=== PATIENT | male | born 1965 | race Caucasian/White ===

== ENCOUNTER 2017-09-02 18:29 | Inpatient (IN) | payer OTHER ==
[~2017-09-02] VITALS: Ht 160 cm; Wt 73.5 kg
[~2017-09-02 18:29] MED LIST: ALPR1TAB2 PO; ASP81TEC PO; CYCL10TA9 PO; HYDR-2890 PO; HYDR-3820 PO; HYDR1TAB3 PO; IBUP-1780 PO; INSU100I5 SQ; INSU100V5 SQ; METFOR850T PO; OXYC-23 PO; OXYC1TAB16 PO; PREG150C PO; SITA100T PO; SITA1TAB2 PO
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
--- OUTSIDE RECORDS SUMMARY | 2017-09-02 18:37 | XMS REPORT ---
Author Author SARAH GOLDMAN [facility] Address [address] [place] [address] Care Team Providers Care Supervisor Sunglasses Name Role Phone SARAH GOLDMAN Unavailable PROBLEMS Type Condition ICD9-CM Code IUC04-DF Code Onset Dates Condition Status SNOMED Code Problem 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 G89.29 Active 17694215 Problem Anxiety F41.9 Active 61946813 Problem Type 2 diabetes mellitus with unspecified complications E11.8 Active 02565896 ALLERGIES Unknown Allergies SOCIAL HISTORY No smoking Hx information available PLAN OF CARE VITAL SIGNS MEDICATIONS Medication Instructions Dosage Frequency Start Date End Date Duration Status Alprazolam 1 MG Orally 4 times a day 1 tablet 6h 28 days Active Hydrocodone-Acetaminophen 10-325 MG Orally 2 times a day 1 tablet 12h 11 May, 2016 Active RESULTS No Results PROCEDURES No Known procedures IMMUNIZATIONS No Known Immunizations
--- OUTSIDE RECORDS SUMMARY | 2017-09-02 18:37 | XMS REPORT ---
Author Author SARAH GOLDMAN Organization [facility] Address [address] [place] [address] Care Team Providers Care Site Director Name Role Phone SARAH GOLDMAN Unavailable PROBLEMS Type Condition ICD9-CM Code [id number] Code Onset Dates Condition Status SNOMED Code Problem Type 2 diabetes mellitus with unspecified complications E11.8 Active 90829642 Problem 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 G89.29 Active 27775175 Problem Anxiety F41.9 Active 66062781 Problem Primary insomnia F51.01 Active 0660999 Problem Neuropathy G62.9 Active 198635106 Problem Dental examination Z01.20 Active 536629994 Problem Benign prostatic hyperplasia with lower urinary tract symptoms, unspecified morphology N40.1 Active 177547762 Problem Hypoglycemia E16.2 Active 093265645 Problem Periodontitis K05.30 Active 82738980 ALLERGIES No Information SOCIAL HISTORY Never Assessed PLAN OF CARE VITAL SIGNS MEDICATIONS Unknown Medications RESULTS No Results PROCEDURES No Known procedures IMMUNIZATIONS No Known Immunizations MEDICAL (GENERAL) HISTORY Type Description Date Medical History Type 2 diabetes mellitus without complications 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
--- OUTSIDE RECORDS SUMMARY | 2017-09-02 18:37 | XMS REPORT ---
Author Author SARAH GOLDMAN Organization [facility] Address [address] [place] [address] Care Team Providers Care Fundraising Sale Representative Name Role Phone SARAH GOLDMAN Unavailable PROBLEMS Type Condition ICD9-CM Code TAC62-LW Code Onset Dates Condition Status SNOMED Code Problem Type 2 diabetes mellitus with unspecified complications E11.8 Active 61383468 Problem 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 G89.29 Active 32564103 Problem Anxiety F41.9 Active 03053810 Problem Primary insomnia F51.01 Active 6691488 Problem Neuropathy G62.9 Active 320448291 Problem Dental examination Z01.20 Active 686408136 Problem Benign prostatic hyperplasia with lower urinary tract symptoms, unspecified morphology N40.1 Active 880590689 Problem Hypoglycemia E16.2 Active 174818992 Problem Periodontitis K05.30 Active 31905993 ALLERGIES No Information SOCIAL HISTORY Never Assessed PLAN OF CARE VITAL SIGNS MEDICATIONS Medication Instructions Dosage Frequency Start Date End Date Duration Status Lantus SoloStar 100 UNIT/ML Subcutaneous 2 times a day Inject 25 units in AM and 30 units in PM 12h Aug, 90 days Active RESULTS No Results PROCEDURES No Known procedures IMMUNIZATIONS No Known Immunizations MEDICAL (GENERAL) HISTORY Type Description Date Medical History Type 2 diabetes mellitus without complications 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
--- OUTSIDE RECORDS SUMMARY | 2017-09-02 18:37 | XMS REPORT ---
Author Author SARAH GOLDMAN [facility] Address [address] [place] [address] Care Team Providers Care Button Broacher Name Role Phone SARAH GOLDMAN Unavailable PROBLEMS Type Condition ICD9-CM Code GGB64-[id number] Code Onset Dates Condition Status SNOMED Code Problem Type 2 diabetes mellitus with unspecified complications E11.8 Active 09102689 Problem 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 G89.29 Active 31466267 Problem Anxiety F41.9 Active 28736539 Problem Primary insomnia F51.01 Active 1341807 Problem Neuropathy G62.9 Active 791946995 Problem Dental examination Z01.20 Active 826435342 Problem Benign prostatic hyperplasia with lower urinary tract symptoms, unspecified morphology N40.1 Active 717489568 Problem Hypoglycemia E16.2 Active 189185933 Problem Periodontitis K05.30 Active 62633742 ALLERGIES Unknown Allergies SOCIAL HISTORY No smoking Hx information available PLAN OF CARE VITAL SIGNS MEDICATIONS Unknown Medications RESULTS No Results PROCEDURES No Known procedures IMMUNIZATIONS No Known Immunizations
--- OUTSIDE RECORDS SUMMARY | 2017-09-02 18:39 | XMS REPORT ---
Author Author GALE Montero Organization [facility] Address Unknown Care Team Providers Care Waiter/Waitress Informal Name Role Phone taylortaylorBHAVESH GALE Unavailable PROBLEMS Type Condition ICD9-CM Code TMA03-AU Code Onset Dates Condition Status SNOMED Code Problem Type 2 diabetes mellitus with unspecified complications E11.8 Active 66825966 Problem 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 G89.29 Active 60319388 Problem Anxiety F41.9 Active 99405089 Problem Primary insomnia F51.01 Active 9516542 Problem Neuropathy G62.9 Active 181247022 Problem Dental examination Z01.20 Active 885507802 Problem Benign prostatic hyperplasia with lower urinary tract symptoms, unspecified morphology N40.1 Active 549337350 Problem Hypoglycemia E16.2 Active 556990668 Problem Periodontitis K05.30 Active 59279233 ALLERGIES Substance Reaction Event Type Date Status Levemir agitation Drug Allergy Jun, Active SOCIAL HISTORY No smoking Hx information available PLAN OF CARE Activity Details Follow Up LISA Reason:TE #5 VITAL SIGNS Height 53 in 2016-07-19 Blood pressure systolic 116 mmHg 2016-07-19 Blood pressure diastolic 72 mmHg 2016-07-19 MEDICATIONS Medication Instructions Dosage Frequency Start Date End Date Duration Status MetFORMIN HCl ER 500 MG Orally twice a day 2 tablet 12h Jun, 30 day(s) Active Ibuprofen 800 MG Orally Three times a day 1 tablet 8h Active Lyrica 150 MG Orally Twice a day 1 capsule 12h May, 90 days Active Alprazolam 1 MG Orally 4 times a day 1 tablet 6h 28 days Active Hydrocodone-Acetaminophen 10-325 MG Orally 3 times a day 1 tablet 8h 08 Jun 28 days Active Lantus 100 UNIT/ML Subcutaneous 2 times a day inject 25 units 12h Active Cialis 5 mg Orally Once a day 1 tablet 24h May, 90 days Active RESULTS No Results PROCEDURES Procedure Date Ordered Related Diagnosis Body Site Dental no charge Jul 19, 2016 IMMUNIZATIONS No Known Immunizations
--- OUTSIDE RECORDS SUMMARY | 2017-09-02 18:40 | XMS REPORT ---
Author Author SARAH GOLDMAN Organization [employer] Address Unknown Phone Unavailable Care Team Providers Care Commercial Credit Specialist Name Role Phone SARAH GOLDMAN CP Unavailable Allergies No Known Allergies Problems Problem Type Condition Code Onset Dates Condition Status Problem Anxiety F41.9 Active Problem Type 2 diabetes mellitus with unspecified complications E11.8 Active Problem 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 G89.29 Active Medications No Known Medications Results No Known Results Summary Purpose [employer] Submission
--- OUTSIDE RECORDS SUMMARY | 2017-09-02 18:40 | XMS REPORT ---
Author Author SARAH GOLDMAN [facility] Address [address] [place] [address] Care Team Providers Care Etl Informatica Developer Name Role Phone SARAH GOLDMAN Unavailable PROBLEMS Type Condition ICD9-CM Code HNS86-OX Code Onset Dates Condition Status SNOMED Code Problem Type 2 diabetes mellitus with unspecified complications E11.8 Active 66863974 Problem 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 G89.29 Active 62768432 Problem Anxiety F41.9 Active 67693299 Problem Neuropathy G62.9 Active 960907477 Problem Primary insomnia F51.01 Active 4054986 Problem Periodontitis K05.30 Active 94307377 Problem Benign prostatic hyperplasia with lower urinary tract symptoms, unspecified morphology N40.1 Active 346856544 Problem Hypoglycemia E16.2 Active 173740835 Problem Dental examination Z01.20 Active 637859582 ALLERGIES Substance Reaction Event Type Date Status Levemir agitation Drug Allergy May, Active SOCIAL HISTORY No smoking Hx information available PLAN OF CARE Activity Details Follow Up 4 Weeks Reason:DM VITAL SIGNS Height 53 in 2016-06-03 Weight 160.1 lbs 2016-06-03 Temperature 98.1 degrees Fahrenheit 2016-06-03 Heart Rate 120 bpm 2016-06-03 Respiratory Rate 22 2016-06-03 BMI 40.07 kg/m2 2016-06-03 Blood pressure systolic 151 mmHg 2016-06-03 Blood pressure diastolic 75 mmHg 2016-06-03 MEDICATIONS Medication Instructions Dosage Frequency Start Date End Date Duration Status Ibuprofen 800 MG Orally Three times a day 1 tablet 8h Active Cialis 5 mg Orally Once a day 1 tablet 24h May, 90 days Active Metformin HCl 500 MG Orally three times a day 1 tablet with meals 8h Active Lantus 100 UNIT/ML Subcutaneous 2 times a day inject 20 units 12h 90 days Active Lyrica 150 MG Orally Twice a day 1 capsule 12h May, 90 days Active Tamsulosin HCl 0.4 MG Orally Once a day 1 capsule 24h Active Alprazolam 1 MG Orally 4 times a day 1 tablet 6h 28 days Active Loratadine Allergy Relief D-12 Active Hydrocodone-Acetaminophen 10-325 MG Orally 3 times a day 1 tablet 8h 11 May Active RESULTS Name Result Date Reference Range A1C (IN HOUSE) 2016-06-03 A1C IN HOUSE 10.8 4.3 - 5.6 % Previous A1c 8.3 Lot [id number] Exp date PROCEDURES Procedure Date Ordered Related Diagnosis Body Site GLYCATED HEMOGLOBIN TEST Jun 03, 2016 Office Visit, Est Pt., Level 3 Jun 03, 2016 IMMUNIZATIONS No Known Immunizations
--- OUTSIDE RECORDS SUMMARY | 2017-09-02 18:40 | XMS REPORT ---
Author Author SARAH GOLDMAN [facility] Address [address] [place] [address] Care Team Providers Care Grant Specialist Name Role Phone SARAH GOLDMAN Unavailable PROBLEMS Type Condition ICD9-CM Code VDO07-HT Code Onset Dates Condition Status SNOMED Code Problem Type 2 diabetes mellitus with unspecified complications E11.8 Active 64866784 Problem 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 G89.29 Active 48217337 Problem Anxiety F41.9 Active 22133248 Problem Primary insomnia F51.01 Active 2320114 Problem Neuropathy G62.9 Active 995967497 Problem Dental examination Z01.20 Active 905101553 Problem Benign prostatic hyperplasia with lower urinary tract symptoms, unspecified morphology N40.1 Active 014001539 Problem Hypoglycemia E16.2 Active 681149127 Problem Periodontitis K05.30 Active 75912259 ALLERGIES Unknown Allergies SOCIAL HISTORY No smoking Hx information available PLAN OF CARE VITAL SIGNS MEDICATIONS Medication Instructions Dosage Frequency Start Date End Date Duration Status Lantus 100 UNIT/ML Subcutaneous 2 times a day inject 25 units in the morning and 30units in the evening 12h Active RESULTS No Results PROCEDURES No Known procedures IMMUNIZATIONS No Known Immunizations
--- OUTSIDE RECORDS SUMMARY | 2017-09-02 18:40 | XMS REPORT ---
Author Author SARAH GOLDMAN [facility] [employer] Address Unknown Phone Unavailable Care Team Providers Care Asphalt Blender Name Role Phone SARAH GOLDMAN CP Unavailable Allergies No Known Allergies Problems Problem Type Condition Code Onset Dates Condition Status Problem Type 2 diabetes mellitus with unspecified complications E11.8 Active Medications No Known Medications Results No Known Results Summary Purpose [employer] Submission
--- OUTSIDE RECORDS SUMMARY | 2017-09-02 18:41 | XMS REPORT ---
Author Author SARAH GOLDMAN [facility] Address [address] [place] [address] Care Team Providers Care Ceramic Capacitor Processor Name Role Phone SARAH GOLDMAN Unavailable PROBLEMS Type Condition ICD9-CM Code SPE42-ZP Code Onset Dates Condition Status SNOMED Code Problem Type 2 diabetes mellitus with unspecified complications E11.8 Active 35480595 Problem 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 G89.29 Active 38086418 Problem Anxiety F41.9 Active 09031628 Problem Neuropathy G62.9 Active 351990606 Problem Primary insomnia F51.01 Active 9796078 Problem Periodontitis K05.30 Active 72409332 Problem Benign prostatic hyperplasia with lower urinary tract symptoms, unspecified morphology N40.1 Active 779893671 Problem Hypoglycemia E16.2 Active 432994758 Problem Dental examination Z01.20 Active 284007325 ALLERGIES Unknown Allergies SOCIAL HISTORY No smoking Hx information available PLAN OF CARE VITAL SIGNS MEDICATIONS Unknown Medications RESULTS Name Result Date Reference Range AMERITOX 2016-04-02 PROCEDURES Procedure Date Ordered Related Diagnosis Body Site No Charge Apr 02, 2016 IMMUNIZATIONS No Known Immunizations
--- OUTSIDE RECORDS SUMMARY | 2017-09-02 18:44 | XMS REPORT ---
Author Author SARAH GOLDMAN Organization [employer] Address Unknown Phone Unavailable Care Team Providers Care Agricultural Real Estate Agent Name Role Phone SARAH GOLDMAN CP Unavailable Allergies No Known Allergies Problems Problem Type Condition Code Onset Dates Condition Status Problem Anxiety F41.9 Active Problem Type 2 diabetes mellitus with unspecified complications E11.8 Active Problem 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 G89.29 Active Assessment 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 G89.29 Active Assessment Anxiety F41.9 Active Medications Medication Code System Code Instructions Start Date End Date Status Dosage Alprazolam [facility] [address]-96 1 MG Orally 4 times a day 1 tablet Hydrocodone-Acetaminophen [facility] [address]-18 10-325 MG Orally 2 times a day 1 tablet Results No Known Results Summary Purpose [employer] Submission
--- OUTSIDE RECORDS SUMMARY | 2017-09-02 18:44 | XMS REPORT ---
Author Author SARAH GOLDMAN [facility] Address [address] [place] [address] Care Team Providers Care Steam Blocker Name Role Phone SARAH GOLDMAN Unavailable PROBLEMS Type Condition ICD9-CM Code FRN45-JJ Code Onset Dates Condition Status SNOMED Code Problem Type 2 diabetes mellitus with unspecified complications E11.8 Active 14318819 Problem 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 G89.29 Active 70337090 Problem Anxiety F41.9 Active 36708912 Problem Primary insomnia F51.01 Active 3744504 Problem Neuropathy G62.9 Active 419501759 Problem Dental examination Z01.20 Active 811343844 Problem Benign prostatic hyperplasia with lower urinary tract symptoms, unspecified morphology N40.1 Active 671102841 Problem Hypoglycemia E16.2 Active 298897389 Problem Periodontitis K05.30 Active 99314353 ALLERGIES Substance Reaction Event Type Date Status Levemir agitation Drug Allergy Aug, Active SOCIAL HISTORY Never Assessed PLAN OF CARE Activity Details Follow Up prn Reason: VITAL SIGNS Height 53 in 2016-09-08 Weight 158.7 lbs 2016-09-08 Temperature 98.2 degrees Fahrenheit 2016-09-08 Heart Rate 84 bpm 2016-09-08 Respiratory Rate 20 2016-09-08 BMI 39.72 kg/m2 2016-09-08 Blood pressure systolic 118 mmHg 2016-09-08 Blood pressure diastolic 78 mmHg 2016-09-08 MEDICATIONS Medication Instructions Dosage Frequency Start Date End Date Duration Status Ibuprofen 800 MG Orally Three times a day 1 tablet 8h Active Cialis 5 mg Orally Once a day 1 tablet 24h May, 90 days Active MetFORMIN HCl ER 500 MG Orally twice a day 2 tablet 12h Jun, 30 day(s) Active Promethazine HCl 25 MG Orally every 6 hrs, prn nausea 1 tablet Jul, Active Lyrica 150 MG Orally Twice a day 1 capsule 12h May, 90 days Active Hydrocodone-Acetaminophen 10-325 MG Orally 3 times a day 1 tablet 8h Aug 28 days Active Lantus SoloStar 100 UNIT/ML Subcutaneous 2 times a day Inject 25 units in AM and 30 units in PM 12h Aug, 90 days Active Alprazolam 1 MG Orally 4 times a day 1 tablet 6h 28 days Active RESULTS No Results PROCEDURES No Known procedures IMMUNIZATIONS No Known Immunizations MEDICAL (GENERAL) HISTORY Type Description Date Medical History Type 2 diabetes mellitus without complications 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
--- OUTSIDE RECORDS SUMMARY | 2017-09-02 18:44 | XMS REPORT ---
Author Author SARAH GOLDMAN Organization [facility] Address [address] [place] [address] Care Team Providers Care Core Java Software Engineer Name Role Phone SARAH GOLDMAN Unavailable PROBLEMS Type Condition ICD9-CM Code MQL56-YH Code Onset Dates Condition Status SNOMED Code Problem Anxiety F41.9 Active 22683101 Problem Type 2 diabetes mellitus with unspecified complications E11.8 Active 62962322 Assessment Type 2 diabetes mellitus with unspecified complications E11.8 Jan, Active 644286129 Assessment 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 G89.29 Jan, Active 71457165 ALLERGIES Substance Reaction Event Type Date Status Levemir agitation Drug Allergy Jan, Active SOCIAL HISTORY No smoking Hx information available PLAN OF CARE VITAL SIGNS Height 53 in 2016-02-09 Weight 154.7 lbs 2016-02-09 Heart Rate 94 bpm 2016-02-09 Respiratory Rate 20 2016-02-09 BMI 38.72 kg/m2 2016-02-09 Blood pressure systolic 152 mmHg 2016-02-09 Blood pressure diastolic 68 mmHg 2016-02-09 MEDICATIONS Medication Instructions Dosage Frequency Start Date End Date Duration Status Ibuprofen 800 MG Orally Three times a day 1 tablet 8h Active Hydrocodone-Acetaminophen 10-325 MG Orally 2 times a day 1 tablet 12h Active Alprazolam 1 MG Orally 4 times a day 1 tablet 6h 28 days Active Loratadine Allergy Relief D-12 Active Metformin HCl 500 MG Orally three times a day 1 tablet with meals 8h Active Lyrica 150 MG Orally Twice a day 1 capsule 12h Active Lantus 100 UNIT/ML Subcutaneous twice a day 35 units 12h Active RESULTS Name Result Date Reference Range A1C (IN HOUSE) 2016-02-09 A1C IN HOUSE 8.3 4.3 - 5.6 % Previous A1c 8.0 Lot [id number] Exp date PROCEDURES Procedure Date Ordered Related Diagnosis Body Site GLYCATED HEMOGLOBIN TEST Feb 09, 2016 Office Visit, Est Pt., Level 3 Feb 09, 2016 IMMUNIZATIONS No Known Immunizations
--- OUTSIDE RECORDS SUMMARY | 2017-09-02 18:44 | XMS REPORT ---
Author Author SARAH GOLDMAN Organization [employer] Address Unknown Phone Unavailable Care Team Providers Care Scleroscope Tester Name Role Phone SARAH GOLDMAN CP Unavailable Allergies No Known Allergies Problems Problem Type Condition Code Onset Dates Condition Status Problem Type 2 diabetes mellitus with unspecified complications E11.8 Active Problem Anxiety F41.9 Active Medications No Known Medications Results No Known Results Summary Purpose [employer] Submission
--- OUTSIDE RECORDS SUMMARY | 2017-09-02 18:44 | XMS REPORT ---
Author Author ARLIN DIAZ Organization [facility] Address [address] [place] [address] Care Team Providers Care Information Systems Technician Name Role Phone ANA DIAZA Unavailable PROBLEMS Type Condition ICD9-CM Code NJE70-JJ Code Onset Dates Condition Status SNOMED Code Problem Type 2 diabetes mellitus with unspecified complications E11.8 Active 10367914 Problem 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 G89.29 Active 94840632 Problem Anxiety F41.9 Active 14715048 Problem Primary insomnia F51.01 Active 7206466 Problem Neuropathy G62.9 Active 872735595 Problem Dental examination Z01.20 Active 728096050 Problem Benign prostatic hyperplasia with lower urinary tract symptoms, unspecified morphology N40.1 Active 924077091 Problem Hypoglycemia E16.2 Active 940942137 Problem Periodontitis K05.30 Active 00215167 ALLERGIES Substance Reaction Event Type Date Status Levemir agitation Drug Allergy Jun, Active SOCIAL HISTORY No smoking Hx information available PLAN OF CARE Activity Details Follow Up prn Reason:ACRLOS VITAL SIGNS MEDICATIONS Medication Instructions Dosage Frequency Start Date End Date Duration Status Lyrica 150 MG Orally Twice a day 1 capsule 12h May, 90 days Active Alprazolam 1 MG Orally 4 times a day 1 tablet 6h 28 days Active Amoxicillin 500 MG Orally 3 times a day 1 capsule 8h Jun, Jun, 10 day(s) Active MetFORMIN HCl ER 500 MG Orally twice a day 2 tablet 12h Jun, 30 day(s) Active Peridex 0.12 % Mouth/Throat 3 times a day 5ml swish and soak for 5 minutes 8h Jun, Jun, 10 days Active Cialis 5 mg Orally Once a day 1 tablet 24h May, 90 days Active Hydrocodone-Acetaminophen 10-325 MG Orally 3 times a day 1 tablet 8h Jun 28 days Active Lantus 100 UNIT/ML Subcutaneous 2 times a day inject 25 units 12h Active Ibuprofen 800 MG Orally Three times a day 1 tablet 8h Active RESULTS No Results PROCEDURES Procedure Date Ordered Related Diagnosis Body Site INTRAORL-PERIAPICAL 1 FILM [id number] Jul 05, 2016 INTRAORL-PERIAPICAL EA ADD FILM Jul 05, 2016 BITEWINGS - TWO FILMS Jul 05, 2016 INTRAORL-PERIAPICAL EA ADD FILM Jul 05, 2016 PANORAMIC FILM SEE ALSO CODE [id number] Jul 05, 2016 IMMUNIZATIONS No Known Immunizations
--- OUTSIDE RECORDS SUMMARY | 2017-09-02 18:44 | XMS REPORT ---
Author Author SARAH GOLDMAN Organization [facility] Address [address] [place] [address] Care Team Providers Care Internet Merchant Name Role Phone SARAH GOLDMAN Unavailable PROBLEMS Type Condition ICD9-CM Code [id number] Code Onset Dates Condition Status SNOMED Code Problem Type 2 diabetes mellitus with unspecified complications E11.8 Active 71699990 Problem 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 G89.29 Active 37445626 Problem Anxiety F41.9 Active 46543917 Problem Primary insomnia F51.01 Active 9729123 Problem Neuropathy G62.9 Active 513609854 Problem Dental examination Z01.20 Active 680016646 Problem Benign prostatic hyperplasia with lower urinary tract symptoms, unspecified morphology N40.1 Active 575020110 Problem Hypoglycemia E16.2 Active 965424222 Problem Periodontitis K05.30 Active 72968957 ALLERGIES No Information SOCIAL HISTORY Never Assessed PLAN OF CARE VITAL SIGNS MEDICATIONS Medication Instructions Dosage Frequency Start Date End Date Duration Status Alprazolam 1 MG Orally 4 times a day 1 tablet 6h 28 days Active Hydrocodone-Acetaminophen 10-325 MG Orally 3 times a day 1 tablet 8h Aug 28 days Active RESULTS No Results PROCEDURES No Known procedures IMMUNIZATIONS No Known Immunizations MEDICAL (GENERAL) HISTORY Type Description Date Medical History Type 2 diabetes mellitus without complications 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
--- OUTSIDE RECORDS SUMMARY | 2017-09-02 18:44 | XMS REPORT ---
Author Author SARAH GOLDMAN [facility] Address [address] [place] [address] Care Team Providers Care Collection Supervisor Name Role Phone SARAH GOLDMAN Unavailable PROBLEMS Type Condition ICD9-CM Code [id number] Code Onset Dates Condition Status SNOMED Code Problem Type 2 diabetes mellitus with unspecified complications E11.8 Active 13502568 Problem 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 G89.29 Active 55545538 Problem Anxiety F41.9 Active 38238042 Problem Primary insomnia F51.01 Active 1703070 Problem Neuropathy G62.9 Active 180789298 Problem Dental examination Z01.20 Active 597474339 Problem Benign prostatic hyperplasia with lower urinary tract symptoms, unspecified morphology N40.1 Active 518756927 Problem Hypoglycemia E16.2 Active 969630579 Problem Periodontitis K05.30 Active 31520865 ALLERGIES No Known Allergies SOCIAL HISTORY Never Assessed PLAN OF CARE Activity Details Follow Up 4 Weeks Reason:DM VITAL SIGNS Height 53 in 2016-10-28 Weight 155.0 lbs 2016-10-28 Temperature 97.9 degrees Fahrenheit 2016-10-28 Heart Rate 72 bpm 2016-10-28 Respiratory Rate 20 2016-10-28 BMI 38.79 kg/m2 2016-10-28 Blood pressure systolic 140 mmHg 2016-10-28 Blood pressure diastolic 84 mmHg 2016-10-28 MEDICATIONS Medication Instructions Dosage Frequency Start Date End Date Duration Status Lyrica 150 MG Orally Twice a day 1 capsule 12h May, 90 days Active Cialis 5 mg Orally Once a day 1 tablet 24h May, 90 days Active Promethazine HCl 25 MG Orally every 6 hrs, prn nausea 1 tablet Jul, Active Ibuprofen 800 MG Orally Three times a day 1 tablet 8h Active MetFORMIN HCl ER 500 MG Orally twice a day 2 tablet 12h Jun, 30 day(s) Active Alprazolam 1 MG Orally at bedtime 1 tablet Active Hydrocodone-Acetaminophen 10-325 MG Orally 3 times a day 1 tablet 8h Sep 28 days Active RESULTS Name Result Date Reference Range A1C (IN HOUSE) 2016-10-28 A1C IN HOUSE 6.2 4.3 - 5.6 % Previous A1c 10.8 Lot [id number] Exp date GLUCOSE FINGERSTICK (IN HOUSE) 2016-10-28 GLU FINGERSTICK 154 PC 8 hours Lot # [id number] Exp date 11/06/2016 [employer]ITOX 2016-10-28 PROCEDURES Procedure Date Ordered Result Body Site No Charge October 28, 2016 GLYCATED HEMOGLOBIN TEST October 28, 2016 GLUCOSE BLOOD TEST October 28, 2016 IMMUNIZATIONS No Known Immunizations MEDICAL (GENERAL) HISTORY Type Description Date Medical History Type 2 diabetes mellitus without complications 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
--- OUTSIDE RECORDS SUMMARY | 2017-09-02 18:44 | XMS REPORT ---
Author Author SARAH GOLDMAN [facility] Address [address] [place] [address] Care Team Providers Care Privacy Compliance Manager Name Role Phone SARAH GOLDMAN Unavailable PROBLEMS Type Condition ICD9-CM Code [id number] Code Onset Dates Condition Status SNOMED Code Problem Type 2 diabetes mellitus with unspecified complications E11.8 Active 08750102 Problem 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 G89.29 Active 72557179 Problem Anxiety F41.9 Active 47414458 Problem Primary insomnia F51.01 Active 8596394 Problem Neuropathy G62.9 Active 368909567 Problem Dental examination Z01.20 Active 684207043 Problem Benign prostatic hyperplasia with lower urinary tract symptoms, unspecified morphology N40.1 Active 970666824 Problem Hypoglycemia E16.2 Active 042695682 Problem Periodontitis K05.30 Active 10219654 ALLERGIES Unknown Allergies SOCIAL HISTORY No smoking Hx information available PLAN OF CARE VITAL SIGNS MEDICATIONS Unknown Medications RESULTS Name Result Date Reference Range GLUCOSE FINGERSTICK (IN HOUSE) 2016-07-20 GLU FINGERSTICK 285 PC 8 hours Lot # [id number] Exp date 02/07/2016 PROCEDURES Procedure Date Ordered Related Diagnosis Body Site GLUCOSE BLOOD TEST Jul 20, 2016 IMMUNIZATIONS No Known Immunizations
--- OUTSIDE RECORDS SUMMARY | 2017-09-02 18:44 | XMS REPORT ---
Author Author SARAH GOLDMAN [facility] Address [address] [place] [address] Care Team Providers Care Wet Pan Mixer Name Role Phone SARAH GOLDMAN Unavailable PROBLEMS Type Condition ICD9-CM Code [id number] Code Onset Dates Condition Status SNOMED Code Problem Type 2 diabetes mellitus with unspecified complications E11.8 Active 40727409 Problem 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 G89.29 Active 97796285 Problem Anxiety F41.9 Active 98037372 Problem Primary insomnia F51.01 Active 2452937 Problem Neuropathy G62.9 Active 424034879 Problem Dental examination Z01.20 Active 796765797 Problem Benign prostatic hyperplasia with lower urinary tract symptoms, unspecified morphology N40.1 Active 668229793 Problem Hypoglycemia E16.2 Active 664720691 Problem Periodontitis K05.30 Active 28459793 ALLERGIES Unknown Allergies SOCIAL HISTORY No smoking Hx information available PLAN OF CARE VITAL SIGNS MEDICATIONS Medication Instructions Dosage Frequency Start Date End Date Duration Status Alprazolam 1 MG Orally 4 times a day 1 tablet 6h 28 days Active Hydrocodone-Acetaminophen 10-325 MG Orally 3 times a day 1 tablet 8h Jul 28 days Active RESULTS No Results PROCEDURES No Known procedures IMMUNIZATIONS No Known Immunizations
--- OUTSIDE RECORDS SUMMARY | 2017-09-02 18:44 | XMS REPORT ---
Author Author SARAH GOLDMAN Organization [employer] Address Unknown Phone Unavailable Care Team Providers Care Hull And Deck Remover Name Role Phone SARAH GOLDMAN CP Unavailable Allergies No Known Allergies Problems Problem Type Condition Code Onset Dates Condition Status Problem Type 2 diabetes mellitus with unspecified complications E11.8 Active Assessment Anxiety F41.9 Active Problem Anxiety F41.9 Active Medications Medication Code System Code Instructions Start Date End Date Status Dosage Alprazolam [facility]NOTE 2] [address]-53 1 MG Orally 4 times a day 1 tablet Results No Known Results Summary Purpose [employer] Submission
--- OUTSIDE RECORDS SUMMARY | 2017-09-02 18:44 | XMS REPORT ---
Author Author SARAH GOLDMAN [facility] Address [address] [place] [address] Care Team Providers Care Pipe Cleaner Name Role Phone SARAH GOLDMAN Unavailable PROBLEMS Type Condition ICD9-CM Code [id number] Code Onset Dates Condition Status SNOMED Code Problem Type 2 diabetes mellitus with unspecified complications E11.8 Active 39825268 Problem 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 G89.29 Active 65601247 Problem Anxiety F41.9 Active 03663323 Problem Primary insomnia F51.01 Active 2735778 Problem Neuropathy G62.9 Active 576822128 Problem Dental examination Z01.20 Active 371274837 Problem Benign prostatic hyperplasia with lower urinary tract symptoms, unspecified morphology N40.1 Active 919252116 Problem Hypoglycemia E16.2 Active 964365118 Problem Periodontitis K05.30 Active 47484288 ALLERGIES Substance Reaction Event Type Date Status Levemir agitation Drug Allergy Jun, Active SOCIAL HISTORY No smoking Hx information available PLAN OF CARE Activity Details Follow Up 3 Months Reason:DM and pain VITAL SIGNS Height 53 in 2016-07-05 Weight 157.4 lbs 2016-07-05 Temperature 97.6 degrees Fahrenheit 2016-07-05 Heart Rate 106 bpm 2016-07-05 Respiratory Rate 20 2016-07-05 BMI 39.39 kg/m2 2016-07-05 Blood pressure systolic 130 mmHg 2016-07-05 Blood pressure diastolic 78 mmHg 2016-07-05 MEDICATIONS Medication Instructions Dosage Frequency Start Date End Date Duration Status Hydrocodone-Acetaminophen 10-325 MG Orally 3 times a day 1 tablet 8h Jun 28 days Active Amoxicillin 500 MG Orally 3 times a day 1 capsule 8h Jun, Jun, 10 day(s) Active Lyrica 150 MG Orally Twice a day 1 capsule 12h May, 90 days Active Ibuprofen 800 MG Orally Three times a day 1 tablet 8h Active Cialis 5 mg Orally Once a day 1 tablet 24h May, 90 days Active Lantus 100 UNIT/ML Subcutaneous 2 times a day inject 25 units 12h Active MetFORMIN HCl ER 500 MG Orally twice a day 2 tablet 12h Jun, 30 day(s) Active Alprazolam 1 MG Orally 4 times a day 1 tablet 6h 28 days Active Peridex 0.12 % Mouth/Throat 3 times a day 5ml swish and soak for 5 minutes 8h Jun, Jun, 10 days Active RESULTS No Results PROCEDURES Procedure Date Ordered Related Diagnosis Body Site Office Visit, Est Pt., Level 3 Jul 05, 2016 IMMUNIZATIONS No Known Immunizations
--- OUTSIDE RECORDS SUMMARY | 2017-09-02 18:44 | XMS REPORT ---
Author Author SARAH GOLDMAN [facility] Address [address] [place] [address] Care Team Providers Care Computer Forensics Analyst Name Role Phone SARAH GOLDMAN Unavailable PROBLEMS Type Condition ICD9-CM Code [id number] Code Onset Dates Condition Status SNOMED Code Problem Anxiety F41.9 Active 18792798 Problem Type 2 diabetes mellitus with unspecified complications E11.8 Active 26892304 Assessment Type 2 diabetes mellitus with unspecified complications E11.8 Feb, Active 67503821 ALLERGIES Unknown Allergies SOCIAL HISTORY No smoking Hx information available PLAN OF CARE VITAL SIGNS MEDICATIONS Medication Instructions Dosage Frequency Start Date End Date Duration Status Loratadine Allergy Relief D-12 Active Levemir 100 UNIT/ML Subcutaneous 2 times a day Inject 35 units 12h 15 Feb, 2016 30 days Active Metformin HCl 500 MG Orally three times a day 1 tablet with meals 8h Active Lyrica 150 MG Orally Twice a day 1 capsule 12h Active Ibuprofen 800 MG Orally Three times a day 1 tablet 8h Active Hydrocodone-Acetaminophen 10-325 MG Orally 2 times a day 1 tablet 12h Active Alprazolam 1 MG Orally 4 times a day 1 tablet 6h 28 days Active RESULTS No Results PROCEDURES No Known procedures IMMUNIZATIONS No Known Immunizations
--- OUTSIDE RECORDS SUMMARY | 2017-09-02 18:44 | XMS REPORT ---
Author Author SARAH GOLDMAN Organization [facility] Address [address] [place] [address] Care Team Providers Care Canvas Cutter Hand Name Role Phone SARAH GOLDMAN Unavailable PROBLEMS Type Condition ICD9-CM Code MCF02-NA Code Onset Dates Condition Status SNOMED Code Problem Type 2 diabetes mellitus with unspecified complications E11.8 Active 15977370 Problem 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 G89.29 Active 47447104 Problem Anxiety F41.9 Active 87156172 Problem Primary insomnia F51.01 Active 3265175 Problem Neuropathy G62.9 Active 323360962 Problem Dental examination Z01.20 Active 599577700 Problem Benign prostatic hyperplasia with lower urinary tract symptoms, unspecified morphology N40.1 Active 827402117 Problem Hypoglycemia E16.2 Active 051362001 Problem Periodontitis K05.30 Active 78630589 ALLERGIES No Information SOCIAL HISTORY Never Assessed PLAN OF CARE VITAL SIGNS MEDICATIONS Unknown Medications RESULTS No Results PROCEDURES No Known procedures IMMUNIZATIONS No Known Immunizations MEDICAL (GENERAL) HISTORY Type Description Date Medical History Type 2 diabetes mellitus without complications 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
--- OUTSIDE RECORDS SUMMARY | 2017-09-02 18:44 | XMS REPORT ---
Author Author SARAH GOLDMAN [facility] [employer] Address Unknown Phone Unavailable Care Team Providers Care Student Education Specialist Name Role Phone SARAH GOLDMAN CP Unavailable Allergies No Known Allergies Problems Problem Type Condition Code Onset Dates Condition Status Problem Anxiety F41.9 Active Problem Type 2 diabetes mellitus with unspecified complications E11.8 Active Problem 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 G89.29 Active Assessment Anxiety F41.9 Active Assessment 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 G89.29 Active Assessment snf 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 Z79.891 Active Medications Medication Code System Code Instructions Start Date End Date Status Dosage Alprazolam [facility] [address]-38 1 MG Orally 4 times a day 1 tablet Results No Known Results Summary Purpose [employer] Submission
--- OUTSIDE RECORDS SUMMARY | 2017-09-02 18:45 | XMS REPORT ---
Author Author SARAH GOLDMAN [facility] Address [address] [place] [address] Care Team Providers Care Senior Ruby Developer Name Role Phone SARAH GOLDMAN Unavailable PROBLEMS Type Condition ICD9-CM Code [id number] Code Onset Dates Condition Status SNOMED Code Problem Type 2 diabetes mellitus with unspecified complications E11.8 Active 31376536 Problem 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 G89.29 Active 65296772 Problem Anxiety F41.9 Active 96731004 Problem Primary insomnia F51.01 Active 9614606 Problem Neuropathy G62.9 Active 653928727 Problem Dental examination Z01.20 Active 556949691 Problem Benign prostatic hyperplasia with lower urinary tract symptoms, unspecified morphology N40.1 Active 070415933 Problem Hypoglycemia E16.2 Active 903249420 Problem Periodontitis K05.30 Active 98744752 ALLERGIES Unknown Allergies SOCIAL HISTORY No smoking Hx information available PLAN OF CARE VITAL SIGNS MEDICATIONS Medication Instructions Dosage Frequency Start Date End Date Duration Status Hydrocodone-Acetaminophen 10-325 MG Orally 3 times a day 1 tablet 8h Jun 28 days Active Alprazolam 1 MG Orally 4 times a day 1 tablet 6h 28 days Active RESULTS No Results PROCEDURES No Known procedures IMMUNIZATIONS No Known Immunizations
--- OUTSIDE RECORDS SUMMARY | 2017-09-02 18:45 | XMS REPORT ---
Author Author SARAH GOLDMAN [facility] Address [address] [place] [address] Care Team Providers Care Spool Sander Name Role Phone SARAH GOLDMAN Unavailable PROBLEMS Type Condition ICD9-CM Code [id number] Code Onset Dates Condition Status SNOMED Code Problem Type 2 diabetes mellitus with unspecified complications E11.8 Active 70909762 Problem 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 G89.29 Active 47058601 Problem Anxiety F41.9 Active 48718644 Problem Primary insomnia F51.01 Active 6228471 Problem Neuropathy G62.9 Active 382475215 Problem Dental examination Z01.20 Active 795733465 Problem Benign prostatic hyperplasia with lower urinary tract symptoms, unspecified morphology N40.1 Active 757750532 Problem Hypoglycemia E16.2 Active 355097418 Problem Periodontitis K05.30 Active 86438619 ALLERGIES Unknown Allergies SOCIAL HISTORY No smoking Hx information available PLAN OF CARE VITAL SIGNS MEDICATIONS Unknown Medications RESULTS No Results PROCEDURES No Known procedures IMMUNIZATIONS No Known Immunizations
--- OUTSIDE RECORDS SUMMARY | 2017-09-02 18:45 | XMS REPORT ---
Author Author SARAH GOLDMAN Organization [employer] Address Unknown Phone Unavailable Care Team Providers Care Chemical Dependency Nurse Name Role Phone SARAH GOLDMAN CP Unavailable Allergies No Known Allergies Problems Problem Type Condition Code Onset Dates Condition Status Problem Type 2 diabetes mellitus with unspecified complications E11.8 Active Problem Anxiety F41.9 Active Medications No Known Medications Results No Known Results Summary Purpose [employer] Submission
--- OUTSIDE RECORDS SUMMARY | 2017-09-02 18:45 | XMS REPORT ---
Author Author SARAH GOLDMAN [facility] Address [address] [place] [address] Care Team Providers Care Data Control Clerk Name Role Phone SARAH GOLDMAN Unavailable PROBLEMS Type Condition ICD9-CM Code [id number]-NC Code Onset Dates Condition Status SNOMED Code Problem Type 2 diabetes mellitus with unspecified complications E11.8 Active 15709092 Problem 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 G89.29 Active 63685661 Problem Anxiety F41.9 Active 59648027 Problem Primary insomnia F51.01 Active 5218133 Problem Neuropathy G62.9 Active 630415838 Problem Dental examination Z01.20 Active 472497190 Problem Benign prostatic hyperplasia with lower urinary tract symptoms, unspecified morphology N40.1 Active 245765935 Problem Hypoglycemia E16.2 Active 249812925 Problem Periodontitis K05.30 Active 56834335 ALLERGIES Unknown Allergies SOCIAL HISTORY No smoking Hx information available PLAN OF CARE VITAL SIGNS MEDICATIONS Unknown Medications RESULTS No Results PROCEDURES No Known procedures IMMUNIZATIONS No Known Immunizations
--- OUTSIDE RECORDS SUMMARY | 2017-09-02 18:45 | XMS REPORT ---
Author Author SARAH GOLDMAN Organization [employer] Address Unknown Phone Unavailable Care Team Providers Care Credit Authorizer Name Role Phone SARAH GOLDMAN CP Unavailable Allergies, Adverse Reactions, Alerts Substance Reaction Event Type N.K.D.A. Info Not Available Non Drug Allergy Problems Problem Type Condition Code Onset Dates Condition Status Assessment Neuropathy G62.9 Active Assessment Bilateral tinnitus H93.13 Active Assessment Encounter to establish care Z76.89 Active Assessment Type 2 diabetes mellitus with unspecified complications E11.8 Active Problem Type 2 diabetes mellitus with unspecified complications E11.8 Active Assessment 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 G89.29 Active Assessment Insomnia, unspecified type G47.00 Active Assessment joint terminal attack controller 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 Active Assessment Dorsalgia, unspecified M54.9 Active Medications Medication Code System Code Instructions Start Date End Date Status Dosage Ibuprofen [facility] [address]-15 800 MG Orally Three times a day 1 tablet Levemir Flexpen ND 0 ... subcutaneously 3 times a day 25 units Alprazolam [facility] [address]-03 1 MG Orally Twice a day 1 tablet Metformin HCl [facility] [address]-09 500 MG Orally Twice a day 1 tablet with meals Loratadine Allergy Relief D-12 NDC 0 not defined Lyrica [facility] [address]-93 150 MG Orally 3 times a day 1 capsule Procedures Procedure Coding System Code Date Office Visit, New Pt., Level 3 CPT-4 33019 January 12, 2016 Vital Signs Date/Time: January 12, 2016 Cardiac Monitoring Heart Rate 120 bpm Weight 152.8 lbs Height 53 in BMI 38.24 Index Blood Pressure Diastolic 90 mmHg Blood Pressure Systolic 142 mmHg Results No Known Results Summary Purpose [employer] Submission
--- OUTSIDE RECORDS SUMMARY | 2017-09-02 18:45 | XMS REPORT ---
Author Author SARAH GOLDMAN Organization [facility] Address [address] [place] [address] Care Team Providers Care Shellfish Dredge Operator Name Role Phone SARAH GOLDMAN Unavailable PROBLEMS Type Condition ICD9-CM Code VRV31-HK Code Onset Dates Condition Status SNOMED Code Problem Type 2 diabetes mellitus with unspecified complications E11.8 Active 54983590 Problem 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 G89.29 Active 19565844 Problem Anxiety F41.9 Active 66288243 Problem Primary insomnia F51.01 Active 9861371 Problem Neuropathy G62.9 Active 407295922 Problem Dental examination Z01.20 Active 099726015 Problem Benign prostatic hyperplasia with lower urinary tract symptoms, unspecified morphology N40.1 Active 087120567 Problem Hypoglycemia E16.2 Active 673186701 Problem Periodontitis K05.30 Active 69840468 ALLERGIES No Information SOCIAL HISTORY Never Assessed PLAN OF CARE VITAL SIGNS MEDICATIONS Medication Instructions Dosage Frequency Start Date End Date Duration Status Alprazolam 1 MG Orally Once a day 1 tablet at bedtime 24h 28 days Active Hydrocodone-Acetaminophen 10-325 MG Orally 3 times a day 1 tablet 8h October 28 days Active RESULTS No Results PROCEDURES No Known procedures IMMUNIZATIONS No Known Immunizations MEDICAL (GENERAL) HISTORY Type Description Date Medical History Type 2 diabetes mellitus without complications 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
--- OUTSIDE RECORDS SUMMARY | 2017-09-02 18:45 | XMS REPORT ---
Author Author SARAH GOLDMAN [facility] Address [address] [place] [address] Care Team Providers Care Senior Visual Designer Name Role Phone SARAH GOLDMAN Unavailable PROBLEMS Type Condition ICD9-CM Code QWD06-CB Code Onset Dates Condition Status SNOMED Code Problem Anxiety F41.9 Active 44019197 Problem Type 2 diabetes mellitus with unspecified complications E11.8 Active 90770363 Assessment 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 G89.29 Feb, Active 06762418 ALLERGIES Unknown Allergies SOCIAL HISTORY No smoking Hx information available PLAN OF CARE VITAL SIGNS MEDICATIONS Medication Instructions Dosage Frequency Start Date End Date Duration Status Hydrocodone-Acetaminophen 10-325 MG Orally 2 times a day 1 tablet 12h Active RESULTS No Results PROCEDURES No Known procedures IMMUNIZATIONS No Known Immunizations
--- OUTSIDE RECORDS SUMMARY | 2017-09-02 18:45 | XMS REPORT ---
Author Author SARAH GOLDMAN Organization [employer] Address Unknown Phone Unavailable Care Team Providers Care Employment Case Manager Name Role Phone SARAH GOLDMAN CP Unavailable Allergies No Known Allergies Problems Problem Type Condition Code Onset Dates Condition Status Problem Type 2 diabetes mellitus with unspecified complications E11.8 Active Problem Anxiety F41.9 Active Medications No Known Medications Results No Known Results Summary Purpose [employer] Submission
--- OUTSIDE RECORDS SUMMARY | 2017-09-02 18:45 | XMS REPORT ---
Author Author GAB MORALES [facility] Address Unknown Care Team Providers Care Manager Integrated Name Role Phone GAB MORALES Unavailable PROBLEMS Type Condition ICD9-CM Code [id number] Code Onset Dates Condition Status SNOMED Code Problem Type 2 diabetes mellitus with unspecified complications E11.8 Active 02675127 Problem 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 G89.29 Active 08999545 Problem Anxiety F41.9 Active 66870755 Problem Primary insomnia F51.01 Active 0567729 Problem Neuropathy G62.9 Active 789244903 Problem Dental examination Z01.20 Active 806304769 Problem Benign prostatic hyperplasia with lower urinary tract symptoms, unspecified morphology N40.1 Active 443798353 Problem Hypoglycemia E16.2 Active 279105274 Problem Periodontitis K05.30 Active 93481206 ALLERGIES Substance Reaction Event Type Date Status Levemir agitation Drug Allergy Jun, Active SOCIAL HISTORY No smoking Hx information available PLAN OF CARE Activity Details Follow Up prn Reason:TE #5 VITAL SIGNS Blood pressure systolic 113 mmHg 2016-07-13 Blood pressure diastolic 75 mmHg 2016-07-13 MEDICATIONS Medication Instructions Dosage Frequency Start Date End Date Duration Status MetFORMIN HCl ER 500 MG Orally twice a day 2 tablet 12h Jun, 30 day(s) Active Hydrocodone-Acetaminophen 10-325 MG Orally 3 times a day 1 tablet 8h Jun 28 days Active Lyrica 150 MG Orally Twice a day 1 capsule 12h May, 90 days Active Ibuprofen 800 MG Orally Three times a day 1 tablet 8h Active Peridex 0.12 % Mouth/Throat 3 times a day 5ml swish and soak for 5 minutes 8h Jun, Jun, 10 days Active Alprazolam 1 MG Orally 4 times a day 1 tablet 6h 28 days Active Cialis 5 mg Orally Once a day 1 tablet 24h May, 90 days Active Amoxicillin 500 MG Orally 3 times a day 1 capsule 8h Jun, Jun, 10 day(s) Active Lantus 100 UNIT/ML Subcutaneous 2 times a day inject 25 units 12h Active Tobrex 0.3 % Ophthalmic every 6 hrs 1-2 drop into affected eye 6h Jun, Jun, 5 days Active RESULTS No Results PROCEDURES Procedure Date Ordered Related Diagnosis Body Site COMP ORAL EVALUATION - NEW/EST PT Jul 13, 2016 IMMUNIZATIONS No Known Immunizations
--- OUTSIDE RECORDS SUMMARY | 2017-09-02 18:45 | XMS REPORT ---
Author Author SARAH GOLDMAN [facility] Address [address] [place] [address] Care Team Providers Care Immigration Case Worker Name Role Phone SARAH GOLDMAN Unavailable PROBLEMS Type Condition ICD9-CM Code VIZ96-CB Code Onset Dates Condition Status SNOMED Code Problem Type 2 diabetes mellitus with unspecified complications E11.8 Active 98471336 Problem 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 G89.29 Active 71569005 Problem Anxiety F41.9 Active 89877651 Problem Primary insomnia F51.01 Active 6227029 Problem Neuropathy G62.9 Active 596335795 Problem Dental examination Z01.20 Active 252359277 Problem Benign prostatic hyperplasia with lower urinary tract symptoms, unspecified morphology N40.1 Active 882972333 Problem Hypoglycemia E16.2 Active 683814468 Problem Periodontitis K05.30 Active 40299073 ALLERGIES Unknown Allergies SOCIAL HISTORY No smoking Hx information available PLAN OF CARE VITAL SIGNS MEDICATIONS Unknown Medications RESULTS No Results PROCEDURES No Known procedures IMMUNIZATIONS No Known Immunizations
--- OUTSIDE RECORDS SUMMARY | 2017-09-02 18:45 | XMS REPORT ---
Author Author SARAH GOLDMAN [facility] Address [address] [place] [address] Care Team Providers Care Biology Adjunct Instructor Name Role Phone SARAH GLODMAN Unavailable PROBLEMS Type Condition ICD9-CM Code [id number] Code Onset Dates Condition Status SNOMED Code Problem Type 2 diabetes mellitus with unspecified complications E11.8 Active 06039504 Problem 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 G89.29 Active 53816850 Problem Anxiety F41.9 Active 12043086 Problem Primary insomnia F51.01 Active 0272479 Problem Neuropathy G62.9 Active 965234431 Problem Dental examination Z01.20 Active 195596882 Problem Benign prostatic hyperplasia with lower urinary tract symptoms, unspecified morphology N40.1 Active 284259488 Problem Hypoglycemia E16.2 Active 055354641 Problem Periodontitis K05.30 Active 87787379 ALLERGIES Unknown Allergies SOCIAL HISTORY No smoking Hx information available PLAN OF CARE VITAL SIGNS MEDICATIONS Unknown Medications RESULTS No Results PROCEDURES No Known procedures IMMUNIZATIONS No Known Immunizations
--- OUTSIDE RECORDS SUMMARY | 2017-09-02 18:45 | XMS REPORT ---
Author Author SARAH GOLDMAN [facility] eClinicalWorks Address Unknown Phone Unavailable Care Team Providers Care Management Scientist Name Role Phone SARAH GOLDMAN CP Unavailable Allergies No Known Allergies Problems Problem Type Condition Code Onset Dates Condition Status Problem Anxiety F41.9 Active Problem Type 2 diabetes mellitus with unspecified complications E11.8 Active Problem 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 G89.29 Active Assessment Anxiety F41.9 Active Assessment 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 G89.29 Active Medications Medication Code System Code Instructions Start Date End Date Status Dosage Ibuprofen [facility] [address]-62 800 MG Orally Three times a day 1 tablet Alprazolam [facility] [address]-59 1 MG Orally 4 times a day 1 tablet Lantus [facility] [address]-52 100 UNIT/ML Subcutaneous not defined Metformin HCl [facility] [address]-73 500 MG Orally three times a day 1 tablet with meals Lyrica [facility] [address]-34 150 MG Orally Twice a day 1 capsule Hydrocodone-Acetaminophen [facility] [address]-16 10-325 MG Orally 2 times a day 1 tablet Loratadine Allergy Relief D-12 ND 0 not defined Results No Known Results Summary Purpose eClinicalWorks Submission
[2017-09-02] MEDS ORDERED: ALPR1TAB7 (18:46)
[2017-09-02] MEDS ORDERED: METF500T8 PO (18:46)
--- OUTSIDE RECORDS SUMMARY | 2017-09-02 18:46 | XMS REPORT ---
Author Author ISIAH DELACRUZ [facility] Address [address] [place] [address] Care Team Providers Care Superintendent Car Construction Name Role Phone ISIAH DELACRUZ Unavailable PROBLEMS Type Condition ICD9-CM Code [id number] Code Onset Dates Condition Status SNOMED Code Problem Type 2 diabetes mellitus with unspecified complications E11.8 Active 35325259 Problem 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 G89.29 Active 01222634 Problem Anxiety F41.9 Active 14758348 Problem Primary insomnia F51.01 Active 9238193 Problem Neuropathy G62.9 Active 587235558 Problem Dental examination Z01.20 Active 493057171 Problem Benign prostatic hyperplasia with lower urinary tract symptoms, unspecified morphology N40.1 Active 170180311 Problem Hypoglycemia E16.2 Active 024653647 Problem Periodontitis K05.30 Active 49840480 ALLERGIES Substance Reaction Event Type Date Status Levemir agitation Drug Allergy Jul, Active SOCIAL HISTORY Never Assessed PLAN OF CARE Activity Details Follow Up prn Reason: VITAL SIGNS Height 53 in 2016-08-05 Weight 147.4 lbs 2016-08-05 Temperature 98.8 degrees Fahrenheit 2016-08-05 Heart Rate 96 bpm 2016-08-05 Respiratory Rate 24 2016-08-05 BMI 36.89 kg/m2 2016-08-05 Blood pressure systolic 101 mmHg 2016-08-05 Blood pressure diastolic 67 mmHg 2016-08-05 MEDICATIONS Medication Instructions Dosage Frequency Start Date End Date Duration Status Doxycycline Hyclate 100 mg Orally Twice a day 1 capsule 12h Jul, Jul, 07 days Active Promethazine HCl 25 MG Orally every 6 hrs, prn nausea 1 tablet Jul, Active Lantus 100 UNIT/ML Subcutaneous 2 times a day inject 25 units in the morning and 30units in the evening 12h Active Ibuprofen 800 MG Orally Three times a day 1 tablet 8h Active Hydrocodone-Acetaminophen 10-325 MG Orally 3 times a day 1 tablet 8h Jul 28 days Active PredniSONE 20 mg Orally Once a day 1 tablet 24h 16 Jul, 2016 Jul, 07 days Active Lyrica 150 MG Orally Twice a day 1 capsule 12h May, 90 days Active Alprazolam 1 MG Orally 4 times a day 1 tablet 6h 28 days Active Cialis 5 mg Orally Once a day 1 tablet 24h May, 90 days Active MetFORMIN HCl ER 500 MG Orally twice a day 2 tablet 12h 16 Jun, 2016 30 day(s) Active RESULTS Name Result Date Reference Range CBC 2016-08-05 WBC 10.1 3.4-10.8 RBC 4.34 4.14-5.80 Hemoglobin 13.7 12.6-17.7 Hematocrit 40.3 37.5-51.0 MCV 93 79-97 MCH 31.6 26.6-33.0 MCHC 34.0 31.5-35.7 RDW 13.6 12.3-15.4 Platelets 278 150-379 Neutrophils 70 Lymphs 18 Monocytes 11 Eos 1 Basos 0 Immature Cells Neutrophils (Absolute) 7.0 1.4-7.0 Lymphs (Absolute) 1.8 0.7-3.1 Monocytes(Absolute) 1.1 0.1-0.9 Eos (Absolute) 0.1 0.0-0.4 Baso (Absolute) 0.0 0.0-0.2 Immature Granulocytes 0 Immature Grans (Abs) 0.0 0.0-0.1 NRBC Hematology Comments: CMP 2016-08-05 Glucose, Serum 142 65-99 BUN 15 6-24 Creatinine, Serum 0.79 0.76-1.27 eGFR If NonAfricn Am 103 >59 eGFR If Africn Am 119 >59 BUN/Creatinine Ratio 19 9-20 Sodium, Serum 142 134-144 Potassium, Serum 3.7 3.5-5.2 Chloride, Serum 103 96-106 Carbon Dioxide, Total 21 18-29 Calcium, Serum 8.6 8.7-10.2 Protein, Total, Serum 7.6 6.0-8.5 Albumin, Serum 4.0 3.5-5.5 Globulin, Total 3.6 1.5-4.5 A/G Ratio 1.1 1.1-2.5 Bilirubin, Total 0.4 0.0-1.2 Alkaline Phosphatase, S 96 39-117 AST (SGOT) 14 0-40 ALT (SGPT) 14 0-44 PROCEDURES Procedure Date Ordered Result Body Site COMPLETE CBC W/AUTO DIFF WBC Aug 05, 2016 COMPREHEN METABOLIC PANEL Aug 05, 2016 VENIPUNCT, ROUTINE* Aug 05, 2016 IMMUNIZATIONS No Known Immunizations MEDICAL (GENERAL) HISTORY Type Description Date Medical History Type 2 diabetes mellitus without complications 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
--- OUTSIDE RECORDS SUMMARY | 2017-09-02 18:46 | XMS REPORT | Continuity of Care Document ---
Author Author [facility] Organization [facility] Address Unknown Phone Unavailable Allergies Active Description Code Type Severity Reaction Onset Reported/Identified Relationship to Patient Clinical Status Yes No Known Drug Allergies [id number] Drug Allergy Unknown N/A 08/25/2010 Medications There is no data. Problems Date Dx Coded Attending Type Code Diagnosis Diagnosed By 08/23/2010 Ot 250.00 08/23/2010 Ot V58.67 08/27/2010 Ot 250.02 08/27/2010 Ot 272.4 08/27/2010 Ot 276.51 08/27/2010 Ot 305.1 09/29/2010 Ot 250.00 09/29/2010 Ot 305.1 09/29/2010 Ot 780.2 09/29/2010 Ot 780.79 09/29/2010 Ot 786.05 07/15/2013 ISIAH SHEPHERD DPM Ot 250.02 DIAB [place] WO COMPL, TYPE II OR UNSPEC TY 07/15/2013 ISIAH SHEPHERD DPM Ot 305.1 TOBACCO USE DISORDER 07/15/2013 ISIAH SHEPHERD DPM Ot 825.29 FX FOOT BONE NEC-CLOSED 07/15/2013 ISIAH SHEPHERD DPM Ot 838.03 DISLOC TARSOMETATARS-CL 07/15/2013 ISIAH SHEPHERD DPM Ot 838.05 DISL METATARSOPHALANG-CL 07/15/2013 ISIAH SHEPHERD DPM Ot 910.0 ABRASION HEAD 07/15/2013 ISIAH SHEPHERD DPM Ot E000.8 OTHER EXTERNAL CAUSE STATUS 07/15/2013 ISIAH SHEPHERD DPM Ot E849.0 ACCIDENT IN HOME 07/15/2013 ISIAH SHEPHERD DPM Ot E881.0 FALL FROM LADDER 07/24/2013 JARON COMBS, MINNIE Gordillo Ot 729.5 PAIN IN LIMB 07/24/2013 MINNIE SALMERON MD Ot 825.20 FX FOOT BONE NOS-CLOSED 07/24/2013 MINNIE SALMERON MD Ot E000.8 OTHER EXTERNAL CAUSE STATUS 07/24/2013 MINNIE SALMERON MD Ot E888.9 FALL NOS 08/05/2013 ISIAH SHEPHERD DPM Ot 250.00 DIAB [place] WO COMPL, TYPE II OR UNSPEC TY 08/05/2013 MCKAYLAHO DPISIAH Medrano Ot 305.1 TOBACCO USE DISORDER 08/05/2013 MCKAYLAHO DPISIAH Medrano Ot 496 CHR AIRWAY OBSTRUCT NEC 08/05/2013 BLANCHO DPMISIAH Ot 825.20 FX FOOT BONE NOS-CLOSED 08/05/2013 MCKAYLAHO DPISIAH Medrano Ot E881.0 FALL FROM LADDER 08/05/2013 MCKAYLAHO ISAIH ESCOBEDO Ot V58.67 LONG-TERM (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 OF INSULIN 10/12/2013 RAEANN MOMIN APRN Ot 729.5 PAIN IN LIMB 02/28/2014 SUSIE COMBS, GALE Rowe Ot 490 BRONCHITIS NOS 03/14/2015 Ot 413.9 03/14/2015 Ot 433.10 03/14/2015 Ot 780.2 03/14/2015 Ot 780.79 03/14/2015 Ot 786.05 03/14/2015 Ot V58.69 03/14/2015 Ot V72.63 03/14/2015 Ot 250.00 03/14/2015 Ot 305.1 03/14/2015 Ot 719.49 03/14/2015 Ot 780.2 03/14/2015 Ot 785.0 03/14/2015 Ot V58.66 03/14/2015 Ot V58.69 03/14/2015 Ot 722.10 03/14/2015 Ot 722.52 03/14/2015 Ot 780.2 03/14/2015 Ot 781.2 03/14/2015 Ot 550.90 03/14/2015 Ot V72.63 03/14/2015 Ot V74.8 03/14/2015 Ot 250.00 03/14/2015 Ot 550.90 03/14/2015 Ot V58.67 03/14/2015 TERESO COMBS, ADRIENNE Lowe Ot 786.39 03/14/2015 ADRIENNE RIDER MD Ot V01.89 03/14/2015 MCKAYLAHO DPISIAH Medrano Ot 825.20 03/14/2015 ISIAH SHEPHERD DPM Ot E000.8 03/14/2015 BLANCHO DPM, ISIAH Sterling Ot E888.9 03/14/2015 BLANCHO DPM, ISIAH Sterling Ot V72.84 03/14/2015 SUSIE COMBS, GALE Rowe Ot 786.05 03/14/2015 SUSIE COMBS, GALE Rowe Ot 786.09 03/14/2015 SUSIE COMBS, GALE Rowe Ot 786.2 05/07/2015 TERESO COMBS, ADRIENNE Lowe Ot M54.2 05/07/2015 TERESO COMBS, ADRIENNE J Ot M54.6 05/12/2015 TERESO COMBS, ADRIENNE J Ot M54.2 05/12/2015 TERESO COMBS, ADRIENNE J Ot M54.6 05/14/2015 TERESO COMBS, ADRIENNE Lowe Ot M54.2 05/14/2015 TERESO COMBS, ADRIENNE Lowe Ot M54.6 05/20/2015 TERESO COMBS, ADRIENNE Lowe Ot M54.2 05/20/2015 TERESO COMBS, ADRIENNE Lowe Ot M54.6 09/30/2015 MINNIE SALMERON MD Ot E11.9 TYPE 2 DIABETES MELLITUS WITHOUT COMPLIC 09/30/2015 MINNIE SALMERON MD Ot F17.210 NICOTINE DEPENDENCE, CIGARETTES, UNCOMPL 09/30/2015 MINNIE SALMERON MD Ot I10 ESSENTIAL (PRIMARY) HYPERTENSION 09/30/2015 MINNIE SALMERON MD Ot R00.0 TACHYCARDIA, UNSPECIFIED 09/30/2015 MINNIE SALMERON MD Ot R20.2 PARESTHESIA OF SKIN 09/30/2015 MINNIE SALMERON MD Ot Z63.79 OTHER STRESSFUL LIFE EVENTS AFFECTING FA 09/30/2015 MINNIE SALMERON MD Ot Z79.4 PRISON (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 OF INSULIN 01/04/2016 ARLIN DOWD DO Ot E11.65 TYPE 2 DIABETES MELLITUS WITH HYPERGLYCE 01/04/2016 ARLIN DOWD DO Ot F12.10 CANNABIS ABUSE, UNCOMPLICATED 01/04/2016 ARLIN DOWD DO Ot F17.210 NICOTINE DEPENDENCE, CIGARETTES, UNCOMPL 01/04/2016 ARLIN DOWD DO Ot F19.10 OTHER PSYCHOACTIVE SUBSTANCE ABUSE, UNCO 01/04/2016 ARLIN DOWD DO Ot K02.9 DENTAL CARIES, UNSPECIFIED 01/04/2016 NOEMÍ DO, ARLIN K Ot R20.2 PARESTHESIA OF SKIN 01/04/2016 ANA DOWD DOA K Ot Z79.4 DELIVERY MERCHANDISER (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49 JOINT PAIN- MULT JTS 2016 Ot 780.2 SYNCOPE AND COLLAPSE 2016 Ot 785.0 TACHYCARDIA NOS 2016 Ot V58.66 LONG-TERM ( 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 OF ASPIRIN 2016 Ot V58.69 OTH MED,LT, CURRENT USE 2016 Ot 722.10 LUMBAR DISC DISPLACEMENT 2016 Ot 722.52 LUMB/ LUMBOSAC DISC DEGEN 2016 Ot 780.2 SYNCOPE AND COLLAPSE 2016 Ot 781.2 ABNORMALITY OF GAIT 2016 Ot 550.90 UNILAT INGUINAL HERNIA 2016 Ot V72.63 PRE- PROCEDURAL LABORATORY EXAMINATION 2016 Ot V74.8 SCREEN- BACTERIAL DIS NEC 2016 Ot 250.00 DIAB [place] WO COMPL, TYPE II OR UNSPEC TY 2016 Ot 550.90 UNILAT INGUINAL HERNIA 2016 Ot V58.67 LONG-TERM ( 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 OF INSULIN 2016 TERESO COMBS, ADRIENNE Lowe Ot 786.39 OTHER HEMOPTYSIS 2016 TERESO COMBS, ADRIENNE Lowe Ot V01.89 OTHER COMMUNICABLE DISEASES 2016 JOAO ESCOBEDO, ISIAH Sterling Ot 825.20 FX FOOT BONE NOS-CLOSED 2016 JOAO DPISIAH Medrano Ot E000.8 OTHER EXTERNAL CAUSE STATUS 2016 JOAO DPISIAH Medrano Ot E888.9 FALL NOS 2016 JOAO DPISIAH Medrano Ot V72.84 EXAM PRE-OPERATIVE NOS 2016 SSUIE COMBS, GALE Rowe Ot 786.05 SHORTNESS OF BREATH 2016 SUSIE COMBS, GALE Rowe Ot 786.09 RESPIRATORY ABNORM NEC 2016 SUSIE COMBS, GALE Rowe Ot 786.2 COUGH 2016 TERESO COMBS, ADRIENNE Lowe Ot M54.2 CERVICALGIA 2016 TERESO COMBS, ADRIENNE Lowe Ot M54.6 PAIN IN THORACIC SPINE 04/14/2016 NOEMÍ DO, ARLIN K Ot E11.65 TYPE 2 DIABETES MELLITUS WITH HYPERGLYCE 04/14/2016 NOEMÍ DO, ARLIN K Ot F12.10 CANNABIS ABUSE, UNCOMPLICATED 04/14/2016 NOEMÍ DO, ARLIN K Ot F17.210 NICOTINE DEPENDENCE, CIGARETTES, UNCOMPL 04/14/2016 NOEMÍ DO, ARLIN K Ot F19.10 OTHER PSYCHOACTIVE SUBSTANCE ABUSE, UNCO 04/14/2016 NOEMÍ DO, ARLIN K Ot K02.9 DENTAL CARIES, UNSPECIFIED 04/14/2016 NOEMÍ DO, ARLIN K Ot R20.2 PARESTHESIA OF SKIN 04/14/2016 NOEMÍ DO, ARLIN K Ot Z79.4 PRISON (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 OF INSULIN 05/06/2016 NOEMÍ DO, ARLIN K Ot E11.65 TYPE 2 DIABETES MELLITUS WITH HYPERGLYCE 05/06/2016 NOEMÍ DO, ARLIN K Ot F12.10 CANNABIS ABUSE, UNCOMPLICATED 05/06/2016 NOEMÍ DO, ARLIN K Ot F17.210 NICOTINE DEPENDENCE, CIGARETTES, UNCOMPL 05/06/2016 NOEMÍ DO, ARLIN K Ot F19.10 OTHER PSYCHOACTIVE SUBSTANCE ABUSE, UNCO 05/06/2016 NOEMÍ DO, ARLIN K Ot K02.9 DENTAL CARIES, UNSPECIFIED 05/06/2016 NOEMÍ DO, ARLIN K Ot R20.2 PARESTHESIA OF SKIN 05/06/2016 NOEMÍ DO, ARLIN K Ot Z79.4 DELIVERY MERCHANDISER (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 OF INSULIN Procedures Code Description Performed By Performed On 81.17 08/03/2013 Results There is no data. Encounters ACCT No. Visit Date/Time Discharge Status Pt. Type Provider Facility Loc./Unit Complaint [id number] 01/04/2016 17:54:00 01/04/2016 20:08:00 DIS Outpatient ARLIN DOWD DO [facility] ER NUMBNESS L SIDE/DIFF TALKING [id number] 09/30/2015 17:09:00 09/30/2015 18:50:00 DIS Emergency MINNIE SALMERON MD [facility] ER L SIDE NUMBNESS/ WEAKNESS/LETHARGIC [id number] 05/05/2015 09:44:00 05/05/2015 23:59:59 CLS Outpatient ADRIENNE RIDER MD [facility] RAD UPPER BACK PAIN [id number] 02/28/2014 06:47:00 02/28/2014 10:30:00 DIS Outpatient GALE RICHARDS MD [facility] SDC DYSPHAGIA;COUGH [id number] 02/27/2014 07:43:00 02/27/2014 23:59:59 CLS Outpatient [id number] 02/13/2014 11:35:00 02/13/2014 23:59:59 CLS Outpatient GALE RICHARDS MD [facility] RAD DYSPHAGIA,COUGH SOA [id number] 10/12/2013 20:33:00 10/12/2013 21:51:00 DIS Emergency RAEANN MOMIN APRN [facility] ER L FOOT PAIN [id number] 08/03/2013 11:33:00 08/05/2013 13:10:00 DIS Inpatient BLANCHO ISIAH ESCOBEDO [facility] SURGICAL LEFT FOOT FRACTURE [id number] 07/24/2013 13:15:00 07/24/2013 23:59:59 CLS Outpatient ISIAH SHEPHERD DPM [facility] PREOP LEFT FOOT FRACTURE [id number] 07/24/2013 09:40:00 07/24/2013 11:38:00 DIS Emergency MINNIE SALMERON MD [facility] ER LEFT FOOT PAIN [id number] 07/15/2013 18:34:00 07/15/2013 20:39:00 DIS Outpatient ISIAH SHEPHERD DPM [facility] SDC METATARSAL DISLOCATION FX [id number] 05/07/2013 12:10:00 05/07/2013 23:59:59 CLS Outpatient ADRIENNE RIDER MD [facility] RAD COUGH [id number] 09/02/2017 18:30:00 ACT Emergency ANA ESTES [facility] ER L LEG SWELLING [id number] 03/14/2015 13:33:00 Document Registration [id number] 03/14/2015 13:33:00 Document Registration [id number] 04/28/2011 14:05:00 Document Registration [id number] 12/28/2010 10:52:00 Document Registration [id number] 10/26/2010 09:24:00 Document Registration [id number] 09/29/2010 05:35:00 Document Registration [id number] 09/28/2010 09:06:00 Document Registration [id number] 08/25/2010 13:07:00 Document Registration [id number] 08/22/2010 21:50:00 Document Registration
[2017-09-02] MEDS ORDERED: ACETAMINOPHEN 500 MG TAB (TYLENOL) PO PRN (19:15)
[2017-09-02] MEDS ORDERED: NS IV PRN (19:15)
[2017-09-02] MEDS ORDERED: ONDANSETRON 4 MG/2 ML (SDV) Z0FRAN IVP PRN (19:15)
[2017-09-02 19:47] LABS: BILIRUBIN,URINE NEGATIVE (NEGATIVE); CLARITY,URINE CLEAR; COLOR,URINE YELLOW; GLUCOSE, URINE (UA) 4+ (NEGATIVE); KETONES,URINE NEGATIVE (NEGATIVE); LEUKOCYTE ESTERASE ,URINE NEGATIVE (NEGATIVE); NITRITE,URINE NEGATIVE (NEGATIVE); PH,URINE 6.5 (5-9); PROTEIN,URINE 1+ (NEGATIVE); UROBILINOGEN,URINE NORMAL (NORMAL)
[2017-09-02 19:49] LABS: BASOPHILS % (AUTO) 0 % (0-10); EOSINOPHILS # (AUTO) 0.1 10^3/uL (0.0-0.3); EOSINOPHILS % (AUTO) 1 % (0-10); HEMATOCRIT 37 % (40-54); LYMPHOCYTES # (AUTO) 1.3 X 10^3 (1.0-4.0); LYMPHOCYTES % (AUTO) 8 % (12-44); MEAN CORPUSCULAR HEMOGLOBIN 33 PG (25-34); MEAN CORPUSCULAR HGB CONC 35 G/DL (32-36); MEAN CORPUSCULAR VOLUME 94 FL (80-99); MEAN PLATELET VOLUME 8.8 FL (7.4-10.4); MONOCYTES # (AUTO) 1.5 X 10^3 (0.0-1.0); MONOCYTES % (AUTO) 9 % (0-12); NEUTROPHILS # (AUTO) 14.1 X 10^3 (1.8-7.8); NEUTROPHILS % (AUTO) 83 % (42-75); PLATELET COUNT 226 10^3/uL (130-400); RED BLOOD COUNT 3.98 10^6/uL (4.35-5.85); RED CELL DISTRIBUTION WIDTH 12.6 % (10.0-14.5); WHITE BLOOD COUNT 17.1 10^3/uL (4.3-11.0)
[2017-09-02 19:54] LABS: SQUAMOUS EPITHELIAL CELL,UR RARE /HPF; WBC,URINE RARE /HPF
[2017-09-02 19:58] LABS: INR 0.9 (0.8-1.4); PROTHROMBIN TIME PATIENT 12.6 SEC (12.2-14.7)
[2017-09-02 20:09] LABS: ALANINE AMINOTRANSFERASE 22 U/L (0-55); ALBUMIN 3.8 GM/DL (3.2-4.5); ALKALINE PHOSPHATASE 131 U/L (40-136); BILIRUBIN,TOTAL 0.3 MG/DL (0.1-1.0); BUN/CREATININE RATIO 11; CALCIUM 9.1 MG/DL (8.5-10.1); CARBON DIOXIDE 21 MMOL/L (21-32); CHLORIDE 103 MMOL/L (98-107); CREATININE SERUM 1.16 MG/DL (0.60-1.30); GFR ESTIMATED > 60; POTASSIUM 4.1 MMOL/L (3.6-5.0); SODIUM 135 MMOL/L (135-145); TOTAL PROTEIN 7.8 GM/DL (6.4-8.2)
--- NOTE | 2017-09-02 20:10 | Diagnostic Imaging Report ---
PATIENT HISTORY: Cough, shortness of breath, leg swelling. TECHNIQUE: Single frontal view of the chest COMPARISON: 01/04/2016 FINDINGS: Lung volumes are mildly low. No focal consolidation is seen. There is no pleural effusion or pneumothorax. Interstitial opacities are mildly increased. The cardiac silhouette is stable in size. No acute osseous abnormality is seen. IMPRESSION: Interstitial opacities appear mildly increased, this may be due to mild edema versus decreased lung volumes. Dictated by: Dictated on workstation # [id number]
[2017-09-02] MEDS ORDERED: cefTRIAXone INJECTION 1,000 MG in NS (IVPB) 100 ML IV ONE (20:15)
[2017-09-02 20:17] LABS: GLUCOSE 406 MG/DL (70-105)
[2017-09-02] MEDS ORDERED: inSUlin (REGULAR) HUMAN 1 UNIT/0.01 ML (CHARGE PER UNIT) IV STA (20:20)
[2017-09-02 20:26] LABS: BAND NEUTROPHILS 14 %; BASOPHILS % (MANUAL) 0 %; EOSINOPHILS % (MANUAL) 2 %; LYMPHOCYTES % (MANUAL) 8 %; METAMYELOCYTES % 1 %; MONOCYTES % (MANUAL) 5 %; NEUTROPHILS % (MANUAL) 70 %
[2017-09-02 20:27] LABS: RBC MORPH NORMAL
[2017-09-02] MEDS ORDERED: RT-ALBUTEROL/IPRATROPIUM 3 ML (DUONEB) VIAL INH ONE (20:30)
[2017-09-02] MEDS ORDERED: morphine INJ 10 MG/ML 1ML (SYR OR VIAL) IVP STA (21:01)
--- NOTE | 2017-09-02 21:19 | ED General ---
General Chief Complaint: Lower Extremity Stated Complaint: L LEG SWELLING Nursing Triage Note: AMB TO ROOM FROM [facility] HAS BEEN SEEN X 2 DAYS FOR REDNESS AND SWELLING OF L KNEE. WAS GIVEN A IM ROCEPHIN AND STARTED BACTRIM. FOLLOW UP TODAY KNEE WAS WORSE. Nursing Sepsis Screen: Possible Sepsis Risk Source of Information: Patient, Spouse History of Present Illness Date Seen by Provider: Sep 02, 2017 Allergies and Home Medications Allergies Coded Allergies: No Known Drug Allergies (Unverified , 08/25/10) Home Medications Ibuprofen 800 Mg Tablet, 800 MG PO Q8H PRN for PAIN, (Reported) Insulin Determir 100 Unit/1 Ml Insuln.pen, 30 UNITS SQ TID WITH MEALS, (Reported ) Oxycodone Hcl/Acetaminophen 1 Udtab Tablet, 1 UDTAB PO Q6H Prescribed by: MINNIE SALMERON on 07/24/13 1127 Past Xlplbzk-Mscswr-Iwbpqh Hx Patient Social History Alcohol Use: Occasionally Uses Alcohol Beverage of Choice: Wine Recreational Drug Use: Yes (10 YEARS AGO) Smoking Status: Current Everyday Smoker Recent Foreign Travel: No Contact w/Someone Who Travel: No Recent Infectious Disease Expo: No Recent Hopitalizations: Yes Immunizations Up To Date Tetanus Booster (TDap): Unknown PED Vaccines UTD: Yes Surgeries History of Surgeries: Yes (hernia repair x 2,2 teeth removed,bladder and kidney problems in childhood) Surgeries: Abdominal, Orthopedic Respiratory History of Respiratory Disorde: Yes (OCCASIONALLY USES INHALER) Respiratory Disorders: COPD Cardiovascular History of Cardiac Disorders: No Neurological History of Neurological Disord: Yes Neurological Disorders: Neuropathy Reproductive System Hx Reproductive Disorders: No Sexually Transmitted Disease: No Genitourinary Genitourinary Disorders: Bladder Infection Gastrointestinal History of Gastrointestinal Di: Yes Gastrointestinal Disorders: Polyps Musculoskeletal History of Musculoskeletal Dis: Yes (LEFT FOOT FX/ORIF; CHRONIC FOOT PAIN-- NEUROPATHY) Musculoskeletal Disorders: Chronic Back Pain, Fractures Endocrine History of Endocrine Disorders: Yes Endocrine Disorders: Diabetes, Insulin dep HEENT HEENT Disorders: Cataract Cancer History of Cancer: No Psychosocial History of Psychiatric Problem: Yes Behavioral Health Disorders: Sleep Difficulties, Anxiety Integumentary History of Skin or Integumenta: No Blood Transfusions History of Blood Disorders: No Adverse Reaction to a Blood Tr: No Family Medical History Significant Family History: No Pertinent Family Hx Family Medial History: Abdominal aortic aneurysm 03 MOTHER (DOESN'T KNOW MOM'S MEDICAL HISTORY) Cancer 03 FATHER (TESTICULAR) Family history: Diabetes mellitus 03 FATHER Family history: Hypertension 03 FATHER No Family History of: Family history: Alzheimer's disease Family history: Arthritis Family history: Breast disease Family history: Cardiovascular disease Family history: Gastrointestinal disease Family history: Thyroid disorder Hereditary disease History of - respiratory disease Myocardial infarction Parkinson's disease Seizure disorder Stroke Physical Exam Vital Signs Vital Signs - First Documented 09/02/17 09/02/17 18:32 19:38 Temp 98.9 Pulse 129 Resp 18 B/P (MAP) 166/99 (121) Pulse Ox 96 O2 Delivery Room Air Capillary Refill : Less Than 3 Seconds Focused Exam Evaluation Lactate Level Laboratory Tests 09/02/17 19:30: Lactic Acid Level 1.75 Lactic Acid Level Laboratory Tests Test 09/02/17 19:30 Lactic Acid Level 1.75 MMOL/L (0.50-2.00) Progress/Results/Core Measures Suspected Sepsis Recent Fever Within 48 Hours: Yes Infection Criteria Present: Documented Infection New/Unexplained Altered Menta: No Sepsis Screen: Possible Sepsis Risk Sepsis Diagnosis: SIRS Temperature:99.2 Pulse: 113 Respiratory Rate: 18 Laboratory Tests 09/02/17 19:30: White Blood Count 17.1H Blood Pressure 166 /94 Mean: 118 Laboratory Tests 09/02/17 19:30: Lactic Acid Level 1.75 Laboratory Tests 09/02/17 19:30: Creatinine 1.16, INR Comment 0.9, Platelet Count 226, Total Bilirubin 0.3 Results/Orders Lab Results Laboratory Tests Test 09/02/17 19:20 09/02/17 19:30 Range/Units Urine Color YELLOW Urine Clarity CLEAR Urine pH 6.5 5-9 Urine Specific [place] 1.010 L 1.016-1.022 Urine Protein 1+ H NEGATIVE Urine Glucose (UA) 4+ H NEGATIVE Urine Ketones NEGATIVE NEGATIVE Urine Nitrite NEGATIVE NEGATIVE Urine Bilirubin NEGATIVE NEGATIVE Urine Urobilinogen NORMAL NORMAL MG/DL Urine Leukocyte Esterase NEGATIVE NEGATIVE Urine RBC (Auto) NEGATIVE NEGATIVE Urine RBC NONE /HPF Urine WBC RARE /HPF Urine Squamous Epithelial Cells RARE /HPF Urine Crystals NONE /LPF Urine Bacteria NONE /HPF Urine Casts NONE /LPF Urine Mucus NEGATIVE /LPF Urine Culture Indicated NO White Blood Count 17.1 H 4.3-11.0 10^3/uL Red Blood Count 3.98 L 4.35-5.85 10^6/uL Hemoglobin 13.0 L 13.3-17.7 G/DL Hematocrit 37 L 40-54 % Mean Corpuscular Volume 94 80-99 FL Mean Corpuscular Hemoglobin 33 25-34 PG Mean Corpuscular Hemoglobin Concent 35 32-36 G/DL Red Cell Distribution Width 12.6 10.0-14.5 % Platelet Count 226 130-400 10^3/uL Mean Platelet Volume 8.8 7.4-10.4 FL Neutrophils (%) (Auto) 83 H 42-75 % Lymphocytes (%) (Auto) 8 L 12-44 % Monocytes (%) (Auto) 9 0-12 % Eosinophils (%) (Auto) 1 0-10 % Basophils (%) (Auto) 0 0-10 % Neutrophils # (Auto) 14.1 H 1.8-7.8 X 10^3 Lymphocytes # (Auto) 1.3 1.0-4.0 X 10^3 Monocytes # (Auto) 1.5 H 0.0-1.0 X 10^3 Eosinophils # (Auto) 0.1 0.0-0.3 10^3/uL Basophils # (Auto) 0.0 0.0-0.1 10^3/uL Neutrophils % (Manual) 70 % Lymphocytes % (Manual) 8 % Monocytes % (Manual) 5 % Eosinophils % (Manual) 2 % Basophils % (Manual) 0 % Metamyelocytes % 1 % Band Neutrophils 14 % Blood Morphology Comment NORMAL Prothrombin Time 12.6 12.2-14.7 SEC INR Comment 0.9 0.8-1.4 Activated Partial Thromboplast Time 40 H 24-35 SEC Sodium Level 135 135-145 MMOL/L Potassium Level 4.1 3.6-5.0 MMOL/L Chloride Level 103 98-107 MMOL/L Carbon Dioxide Level 21 21-32 MMOL/L Anion Gap 11 5-14 MMOL/L Blood Urea Nitrogen 13 7-18 MG/DL Creatinine 1.16 0.60-1.30 MG/DL Estimat Glomerular Filtration Rate > 60 BUN/Creatinine Ratio 11 Glucose Level 406 *H 70-105 MG/DL Lactic Acid Level 1.75 0.50-2.00 MMOL/L Calcium Level 9.1 8.5-10.1 MG/DL Total Bilirubin 0.3 0.1-1.0 MG/DL Aspartate Amino Transf (AST/SGOT) 17 5-34 U/L Alanine Aminotransferase (ALT/SGPT) 22 0-55 U/L Alkaline Phosphatase 131 40-136 U/L Total Protein 7.8 6.4-8.2 GM/DL Albumin 3.8 3.2-4.5 GM/DL My Orders Orders - ANA SIMS Cbc With Automated Diff (09/02/17 19:10) Comprehensive Metabolic Panel (09/02/17 19:10) Lactic Acid Analyzer (09/02/17 19:10) Blood Culture (09/02/17 19:10) Sputum Culture (09/02/17 19:10) Ua Culture If Indicated (09/02/17 19:10) Protime With Inr (09/02/17:10) Partial Thromboplastin Time (09/02/17:10) Chest 1 View, Ap/Pa Only (09/02/17:10) Ondansetron Injection (Zofran Injectio (09/02/17 19:15) Acetaminophen Tablet (Tylenol Tablet) (09/02/17 19:15) Saline Lock/Iv-Start (09/02/17 19:10) Saline Lock/Iv-Start (09/02/17 19:10) Ns Iv 1000 Ml (Sodium Chloride 0.9%) (09/02/17 19:15) Vital Signs Adult Sepsis Patie Q1H (09/02/17 19:10) Remove Rings In Anticipation O (09/02/17 19:10) Manual Differential (09/02/17 19:30) Us Left Lower Ext [id number] (09/02/17 20:07) Ceftriaxone Injection (Rocephin Injectio (09/02/17 20:15) Insulin (Regular) Human (Humulin R (Per (09/02/17 20:20) Albuterol/Ipra Inhalation Soln (Duoneb I (09/02/17 20:30) Svn Sm Volume Nebulizer Rt-Rfs (09/02/17 20:26) Morphine Injection (Morphine Injection (09/02/17 21:01) Medications Given in ED Current Medications Medications Dose Ordered Sig/Leandra Route Start Time Stop Time Status Last Admin Dose Admin Acetaminophen 1,000 mg ONCE PRN PO 09/02/17 19:15 09/02/17 19:41 DC 09/02/17 19:41 1,000 MG Albuterol/ Ipratropium 3 ml ONCE ONCE INH 09/02/17 20:30 09/02/17 20:31 DC 09/02/17 20:32 3 ML Ceftriaxone Sodium 1000 mg/ Sodium Chloride 100 ml @ 200 mls/hr ONCE ONCE IV 09/02/17 20:15 09/02/17 20:44 DC 09/02/17 21:05 200 MLS/HR Ondansetron HCl 4 mg ONCE PRN IVP 09/02/17 19:15 09/02/17 19:41 DC 09/02/17 19:41 4 MG Sodium Chloride 1,837.05 ml @ 918.525 mls/hr PRN PRN IV 09/02/17 19:15 09/02/17 19:41 918.525 MLS/HR Vital Signs/I&O Vital Sign - Last 12Hours 09/02/17 09/02/17 09/02/17 18:32 19:38 20:33 Temp 98.9 99.2 Pulse 129 113 Resp 18 18 B/P (MAP) 166/99 (121) 166/94 Pulse Ox 96 97 O2 Delivery Room Air Room Air Capillary Refill : Less Than 3 Seconds Blood Pressure Mean: 118 Departure Departure-Patient Inst. Referrals: [facility] (PCP/Family) Primary Care Physician ANA SIMS Sep 02, 2017 21:18
--- NOTE | 2017-09-02 21:37 | Diagnostic Imaging Report ---
INDICATION: Puncture wound at the left knee, evaluate for fluid collection. TECHNIQUE: Grayscale and Doppler ultrasound is performed in the area in question at the left knee. COMPARISON: None FINDINGS: Mild soft tissue edema is seen at the left thigh. A deep fluid collection measuring 3.3 x 0.9 x 3.4 cm is seen anteriorly, this could represent a joint effusion. There is a markedly heterogeneous more superficial hypoechoic region which is concerning for a heterogeneous fluid collection in the superficial soft tissues, measuring 3.2 x 0.8 x 2.9 cm. This is in the region of the puncture site. No internal vascularity is seen. IMPRESSION: 1. Superficial heterogeneous fluid collection at the anterior left knee at the puncture site measuring up to 3.2 cm in greatest dimension. 2. Anechoic deep left knee fluid collection, may represent a joint effusion. Dictated by: Dictated on workstation # [id number]
--- OUTSIDE RECORDS SUMMARY | 2017-09-02 22:52 | XMS REPORT | Continuity of Care Document ---
Author Author [facility] Organization [facility] Address Unknown Phone Unavailable Allergies Active Description Code Type Severity Reaction Onset Reported/Identified Relationship to Patient Clinical Status Yes No Known Drug Allergies [id number] Drug Allergy Unknown N/A 08/25/2010 Medications There [...] Ot E881.0 FALL FROM LADDER 08/05/2013 MCKAYLAHO ISIAH ESCOBEDO Ot V58.67 LONG-TERM (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 OF [...] FA 09/30/2015 MINNIE SALMERON MD Ot Z79.4 DETENTION (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 OF INSULIN 01/04/2016 ARLIN DOWD [...] 01/04/2016 ANA DOWD DOA K Ot Z79.4 RN COMPLEX CARE (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 OF INSULIN 01/06/2016 ANA DOWD [...] SKIN 01/06/2016 ARLIN DOWD DO Ot Z79.4 DETENTION (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 OF INSULIN 2016 Ot 250.00 [...] Medrano Ot V72.84 EXAM PRE-OPERATIVE NOS 2016 SUSIE COMBS, GALE Rowe Ot 786.05 SHORTNESS OF [...] 04/14/2016 NOEMÍ DO, ARLIN K Ot Z79.4 DETENTION (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 OF INSULIN 05/06/2016 NOEMÍ DO, [...] 05/06/2016 NOEMÍ DO, ARLIN K Ot Z79.4 RN COMPLEX CARE (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 OF INSULIN Procedures Code Description Performed By Performed On 81.17 08/03/2013 Results Test Result Range Complete urinalysis with reflex to culture - 09/02/17 19:20 Urine color determination YELLOW NRG Urine clarity determination CLEAR NRG Urine pH measurement by test strip 6.5 5-9 Specific gravity of urine by test strip 1.010 1.016- 1.022 Urine protein assay by test strip, semi-quantitative 1+ NEGATIVE Urine glucose detection by automated test strip 4+ NEGATIVE Erythrocytes detection in urine sediment by light microscopy NEGATIVE NEGATIVE Urine ketones detection by automated test strip NEGATIVE NEGATIVE Urine nitrite detection by test strip NEGATIVE NEGATIVE Urine total bilirubin detection by test strip NEGATIVE NEGATIVE Urine urobilinogen measurement by automated test strip (mass/volume) NORMAL NORMAL Urine leukocyte esterase detection by dipstick NEGATIVE NEGATIVE Automated urine sediment erythrocyte count by microscopy (number/high power field) NONE NRG Automated urine sediment leukocyte count by microscopy (number/high power field ) RARE NRG Bacteria detection in urine sediment by light microscopy NONE NRG Squamous epithelial cells detection in urine sediment by light microscopy RARE NRG Crystals detection in urine sediment by light microscopy NONE NRG Casts detection in urine sediment by light microscopy NONE NRG Mucus detection in urine sediment by light microscopy NEGATIVE NRG Complete urinalysis with reflex to culture NO NRG Complete blood count (CBC) with automated white blood cell (WBC) differential - 09/02/17 19:30 Blood leukocytes automated count (number/volume) 17.1 10*3/uL 4.3-11.0 Blood erythrocytes automated count (number/volume) 3.98 10*6/uL 4.35-5.85 Venous blood hemoglobin measurement (mass/volume) 13.0 g/dL 13.3-17.7 Blood hematocrit (volume fraction) 37 % 40-54 Automated erythrocyte mean corpuscular volume 94 [foz_us] 80-99 Automated erythrocyte mean corpuscular hemoglobin (mass per erythrocyte) 33 pg 25-34 Automated erythrocyte mean corpuscular hemoglobin concentration measurement ( mass/volume) 35 g/dL 32-36 Automated erythrocyte distribution width ratio 12.6 % 10.0-14.5 Automated blood platelet count (count/volume) 226 10*3/uL 130-400 Automated blood platelet mean volume measurement 8.8 [foz_us] 7.4-10.4 Automated blood neutrophils/100 leukocytes 83 % 42-75 Automated blood lymphocytes/100 leukocytes 8 % 12-44 Blood monocytes/100 leukocytes 9 % 0-12 Automated blood eosinophils/100 leukocytes 1 % 0-10 Automated blood basophils/100 leukocytes 0 % 0-10 Blood neutrophils automated count (number/volume) 14.1 10*3 1.8-7.8 Blood lymphocytes automated count (number/volume) 1.3 10*3 1.0-4.0 Blood monocytes automated count (number/volume) 1.5 10*3 0.0-1.0 Automated eosinophil count 0.1 10*3/uL 0.0-0.3 Automated blood basophil count (count/volume) 0.0 10*3/uL 0.0-0.1 PT panel in platelet poor plasma by coagulation assay - 09/02/17 19:30 Prothrombin time (PT) in platelet poor plasma by coagulation assay 12.6 s 12.2-14.7 INR in platelet poor plasma or blood by coagulation assay 0.9 0.8-1.4 Activated partial thromboplastin time (aPTT) in platelet poor plasma bycoagulation assay - 09/02/17 19:30 Activated partial thromboplastin time (aPTT) in platelet poor plasma bycoagulation assay 40 s 24-35 Blood lactic acid measurement (moles/volume) - 09/02/17 19:30 Blood lactic acid measurement (moles/volume) 1.75 mmol/L 0.50-2.00 Comprehensive metabolic panel - 09/02/17 19:30 Serum or plasma sodium measurement (moles/volume) 135 mmol/L 135-145 Serum or plasma potassium measurement (moles/volume) 4.1 mmol/L 3.6-5.0 Serum or plasma chloride measurement (moles/volume) 103 mmol/L 98-107 Carbon dioxide 21 mmol/L 21-32 Serum or plasma anion gap determination (moles/volume) 11 mmol/L 5-14 Serum or plasma urea nitrogen measurement (mass/volume) 13 mg/dL 7-18 Serum or plasma creatinine measurement (mass/volume) 1.16 mg/dL 0.60-1.30 Serum or plasma urea nitrogen/creatinine mass ratio 11 NRG Serum or plasma creatinine measurement with calculation of estimated glomerular filtration rate > NRG Serum or plasma glucose measurement (mass/volume) 406 mg/dL 70-105 Serum or plasma calcium measurement (mass/volume) 9.1 mg/dL 8.5-10.1 Serum or plasma total bilirubin measurement (mass/volume) 0.3 mg/dL 0.1-1.0 Serum or plasma alkaline phosphatase measurement (enzymatic activity/volume) 131 U/L 40-136 Serum or plasma aspartate aminotransferase measurement (enzymatic activity/ volume) 17 U/L 5-34 Serum or plasma alanine aminotransferase measurement (enzymatic activity/volume ) 22 U/L 0-55 Serum or plasma protein measurement (mass/volume) 7.8 g/dL 6.4-8.2 Serum or plasma albumin measurement (mass/volume) 3.8 g/dL 3.2-4.5 Blood manual differential performed detection - 09/02/17 19:30 Blood monocytes/100 leukocytes 5 % NRG Manual blood segmented neutrophils/100 leukocytes 70 % NRG Blood band neutrophils/100 leukocytes 14 % NRG Manual blood lymphocytes/100 leukocytes 8 % NRG Manual eosinophils/100 leukocytes in nose 2 % NRG Manual blood basophils/100 leukocytes 0 % NRG Blood erythrocyte morphology finding identification NORMAL NRG Manual blood metamyelocytes/100 leukocytes 1 % NRG Encounters ACCT No. Visit Date/Time Discharge Status Pt. Type Provider Facility Loc./Unit Complaint [id number] 01/04/2016 17:54:00 01/04/2016 20:08:00 DIS Outpatient NOEMÍ ARLIN K [facility] ER NUMBNESS L SIDE/DIFF TALKING [id number] 09/30/2015 17:09:00 09/30/2015 18:50:00 DIS Emergency MINNIE SALMERON MD [facility] ER L SIDE NUMBNESS/ WEAKNESS/LETHARGIC [id number] 05/05/2015 09:44:00 05/05/2015 23:59:59 CLS Outpatient ADRIENNE RIDER MD [facility] RAD UPPER BACK PAIN [id number] 02/28/2014 06:47:00 02/28/2014 10:30:00 DIS Outpatient GALE RICHARDS MD [facility] SDC DYSPHAGIA;COUGH [id number] 02/27/2014 07:43:00 02/27/2014 23:59:59 CLS Outpatient [id number] 02/13/2014 11:35:00 02/13/2014 23:59:59 CLS Outpatient GALE RICHARDS MD [facility] RAD DYSPHAGIA,COUGH SOA [id number] 10/12/2013 20:33:00 10/12/2013 21:51:00 DIS Emergency RAEANN MOMIN APRN [facility] ER L FOOT PAIN [id number] 08/03/2013 11:33:00 08/05/2013 13:10:00 DIS Inpatient BLANCHO DPMISIAH [facility] SURGICAL LEFT FOOT FRACTURE [id number] 07/24/2013 13:15:00 07/24/2013 23:59:59 CLS Outpatient BLANCHO DPMISIAH [facility] PREOP LEFT FOOT FRACTURE [id number] 07/24/2013 09:40:00 07/24/2013 11:38:00 DIS Emergency JARON COMBS, MINNIE Gordillo [facility] ER LEFT FOOT PAIN [id number] 07/15/2013 18:34:00 07/15/2013 20:39:00 DIS Outpatient BLANCHO DPMISIAH [facility] SDC METATARSAL DISLOCATION FX [id number] 05/07/2013 12:10:00 05/07/2013 23:59:59 CLS Outpatient ADRIENNE RIDER MD [facility] RAD COUGH [id number] 09/02/2017 18:30:00 ACT Emergency ANA ESTES [facility] ER L LEG SWELLING [id number] 03/14/2015 13:33:00 Document Registration [id number] 03/14/2015 13:33:00 Document Registration [id number] 04/28/2011 14:05:00 Document Registration [id number] 12/28/2010 10:52:00 Document Registration [id number] 10/26/2010 09:24:00 Document Registration [id number] 09/29/2010 05:35:00 Document Registration [id number] 09/28/2010 09:06:00 Document Registration [id number] 08/25/2010 13:07:00 Document Registration [id number] 08/22/2010 21:50:00 Document Registration
[2017-09-02 23:10] VITALS: BP 135/84
[2017-09-02] MEDS ORDERED: morphine INJ 4 MG/ML 1 ML (VIAL/SYRINGE) IV PRN (23:30)
[2017-09-02] MEDS ORDERED: LORazepam INJ 2 MG/ML (ATIVAN) VIAL IV PRN (23:30)
[2017-09-02] MEDS ORDERED: VANCOMYCIN 1 GM/NS 250 ML IVPB IV SCH ×2 (23:30)
[2017-09-02] MEDS ORDERED: KETOROLAC 30 MG/ML VIAL IV PRN (23:30)
[2017-09-02] MEDS ORDERED: ONDANSETRON 4 MG/2 ML (SDV) Z0FRAN IV PRN (23:30)
[2017-09-02 23:51] VITALS: BP 135/84
[2017-09-02] MEDS: NS IV 1000 ML 1,000 ML IV SCH (23:54)
[2017-09-03] MEDS ORDERED: RT-ALBUTEROL/IPRATROPIUM 3 ML (DUONEB) VIAL INH PRN
[2017-09-03] MEDS ORDERED: PREG150C PO ×2 (01:17→09:00)
[2017-09-03 04:00] VITALS: BP 146/71
[2017-09-03 05:04] LABS: BASOPHILS % (AUTO) 0 % (0-10); EOSINOPHILS # (AUTO) 0.1 10^3/uL (0.0-0.3); EOSINOPHILS % (AUTO) 1 % (0-10); HEMATOCRIT 34 % (40-54); HEMOGLOBIN 11.8 G/DL (13.3-17.7); LYMPHOCYTES # (AUTO) 1.9 X 10^3 (1.0-4.0); LYMPHOCYTES % (AUTO) 13 % (12-44); MEAN CORPUSCULAR HEMOGLOBIN 33 PG (25-34); MEAN CORPUSCULAR HGB CONC 35 G/DL (32-36); MEAN CORPUSCULAR VOLUME 94 FL (80-99); MEAN PLATELET VOLUME 8.6 FL (7.4-10.4); MONOCYTES # (AUTO) 1.2 X 10^3 (0.0-1.0); MONOCYTES % (AUTO) 8 % (0-12); NEUTROPHILS # (AUTO) 11.6 X 10^3 (1.8-7.8); NEUTROPHILS % (AUTO) 78 % (42-75); PLATELET COUNT 218 10^3/uL (130-400); RED CELL DISTRIBUTION WIDTH 12.5 % (10.0-14.5); WHITE BLOOD COUNT 14.9 10^3/uL (4.3-11.0)
[2017-09-03 05:55] LABS: ALANINE AMINOTRANSFERASE 14 U/L (0-55); ALBUMIN 3.1 GM/DL (3.2-4.5); ALKALINE PHOSPHATASE 94 U/L (40-136); BILIRUBIN,TOTAL 0.2 MG/DL (0.1-1.0); BUN/CREATININE RATIO 13; CALCIUM 8.1 MG/DL (8.5-10.1); CARBON DIOXIDE 18 MMOL/L (21-32); CHLORIDE 111 MMOL/L (98-107); CREATININE SERUM 0.78 MG/DL (0.60-1.30); GFR ESTIMATED > 60; GLUCOSE 135 MG/DL (70-105); SODIUM 136 MMOL/L (135-145); TOTAL PROTEIN 6.2 GM/DL (6.4-8.2)
[2017-09-03] MEDS: inSUlin (REGULAR) HUMAN 1 UNIT/0.01 ML (CHARGE PER UNIT) SC SCH ×4 (06:05→20:44)
[2017-09-03] MEDS: HYDROcodone/APAP 10 MG/325 MG (LORTAB) TAB PO PRN ×3 (06:59→20:35)
[2017-09-03 08:00] VITALS: BP 136/80
[2017-09-03] MEDS ORDERED: RT-ALBUTEROL/IPRATROPIUM 3 ML (DUONEB) VIAL INH ONE (08:00)
[2017-09-03] MEDS: NS IV 1000 ML 1,000 ML IV SCH ×3 (08:54→16:37)
[2017-09-03] MEDS: VANCOMYCIN 1 GM/NS 250 ML IVPB IV SCH ×4 (08:55→21:31)
[2017-09-03] MEDS ORDERED: INSU100I10 SQ (09:00)
[2017-09-03] MEDS ORDERED: HYDR-3820 PO (09:00)
[2017-09-03] MEDS ORDERED: PIOG45TA7 PO (09:00)
[2017-09-03] MEDS ORDERED: ATOR40TA70 PO (09:03)
[2017-09-03] MEDS ORDERED: METF500T8 PO (09:03)
[2017-09-03] MEDS ORDERED: TADA5TAB2 PO (09:03)
[2017-09-03] MEDS ORDERED: IBUP-1780 PO (09:11)
[2017-09-03] MEDS ORDERED: LIDOCAINE 1% INJ 20 ML (XYLOCAINE) VIAL ONE ×2 (09:33→09:34)
[2017-09-03] MEDS ORDERED: LIDOCAINE 2% 20 ML (XYLOCAINE) VIAL ONE (09:39)
[2017-09-03] MEDS ORDERED: LIDOCAINE 1% INJ 50 ML (XYLOCAINE) VIAL IJ ONE (09:45)
[2017-09-03] MEDS ORDERED: LIDOCAINE PF 2% 5 ML (XYLOCAINE) VIAL INJ ONE (09:45)
--- NOTE | 2017-09-03 10:13 | Consultation ---
History of Present Illness History of Present Illness Patient Consulted On(harinder/time) 09/03/17 10:06 Date Seen by Provider: Sep 03, 2017 Time Seen by Provider: 10:06 Reason for Visit: left knee pain History of Present Illness 52 year old male diabetic was admitted last night due to swelling of the left knee. 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 He continued to work on it and came in a couple of days ago and got antibiotics. He said he could not stay off of it to finish his work and it swelled up more and he came to the ER last night and had an elevated WBC count and was admitted. He is on Rocephin and Vancomycin. His WBC is down. His knee hurts a lot. There were no x-rays made but he did get an ultrasound. Allergies and Home Medications Allergies Coded Allergies: No Known Drug Allergies (Unverified , 08/25/10) Home Medications Alprazolam 1 Mg Tablet, 1 MG PO HS, (Reported) Atorvastatin Calcium 40 Mg Tablet, 40 MG PO DAILY, (Reported) Hydrocodone/Acetaminophen 1 Each Tablet, 10-325 MG PO TID Prescribed by: PRANAY WADE on 09/03/17 0900 Ibuprofen 800 Mg Tablet, 800 MG PO Q8H PRN for PAIN-MILD TO MODERATE Prescribed by: PRANAY WADE on 09/03/17 0911 Insulin Glargine,Hum.rec.anlog 100 Unit/1 Ml Insuln.pen, 20 UNIT SQ BID, ( Reported) Metformin HCl 500 Mg Tab.er.24h, 1,000 MG PO BID, (Reported) Pioglitazone HCl 45 Mg Tablet, 45 MG PO DAILY, (Reported) Pregabalin 150 Mg Capsule, 150 MG PO TID Prescribed by: PRANAY WADE on 09/03/17 0900 Tadalafil 5 Mg Tablet, 5 MG PO DAILY, (Reported) Patient Home Medication List Home Medication List Reviewed: Yes Past Xomxtxg-Boqbsp-Myhppz Hx Patient Social History Alcohol Use: Occasionally Uses Number of Drinks Today: Alcohol Beverage of Choice: Wine Recreational Drug Use: Yes (10 YEARS AGO) Smoking Status: Current Everyday Smoker Type Used: Cigarettes Recent Foreign Travel: No Contact w/Someone Who Travel: No Recent Infectious Disease Expo: No Recent Hopitalizations: Yes Immunizations Up To Date Tetanus Booster (TDap): Unknown PED Vaccines UTD: Yes Date of Pneumonia Vaccine: Sep 04, 2015 Date of Influenza Vaccine: Apr 05, 2017 Seasonal Allergies Seasonal Allergies: No Surgeries History of Surgeries: Yes (hernia repair x 2,2 teeth removed,bladder and kidney problems in childhood) Surgeries: Abdominal, Orthopedic Respiratory History of Respiratory Disorde: Yes (OCCASIONALLY USES INHALER) Respiratory Disorders: COPD Currently Using CPAP: No Currently Using BIPAP: No Cardiovascular History of Cardiac Disorders: No Neurological History of Neurological Disord: Yes Neurological Disorders: Neuropathy Reproductive System Hx Reproductive Disorders: No Sexually Transmitted Disease: No Genitourinary Genitourinary Disorders: Bladder Infection Gastrointestinal History of Gastrointestinal Di: Yes Gastrointestinal Disorders: Polyps Musculoskeletal History of Musculoskeletal Dis: Yes (LEFT FOOT FX/ORIF; CHRONIC FOOT PAIN-- NEUROPATHY) Musculoskeletal Disorders: Chronic Back Pain, Fractures Endocrine History of Endocrine Disorders: Yes Endocrine Disorders: Diabetes, Insulin dep HEENT History of HEENT Disorders: Yes HEENT Disorders: Cataract Cancer History of Cancer: No Psychosocial History of Psychiatric Problem: Yes Behavioral Health Disorders: Sleep Difficulties, Anxiety Integumentary History of Skin or Integumenta: No Blood Transfusions History of Blood Disorders: No Adverse Reaction to a Blood Tr: No Family Medical History Significant Family History: No Pertinent Family Hx Family Medial History: Abdominal aortic aneurysm 03 MOTHER (DOESN'T KNOW MOM'S MEDICAL HISTORY) Cancer 03 FATHER (TESTICULAR) Family history: Diabetes mellitus 03 FATHER Family history: Hypertension 03 FATHER No Family History of: Family history: Alzheimer's disease Family history: Arthritis Family history: Breast disease Family history: Cardiovascular disease Family history: Gastrointestinal disease Family history: Thyroid disorder Hereditary disease History of - respiratory disease Myocardial infarction Parkinson's disease Seizure disorder Stroke Review of Systems-General Constitutional: fever EENTM: no symptoms reported Respiratory: no symptoms reported Cardiovascular: no symptoms reported Gastrointestinal: no symptoms reported Genitourinary: no symptoms reported Musculoskeletal: see HPI Skin: see HPI Psychiatric/Neurological: No Symptoms Reported Physical Exam-General Problems Physical Exam Vital Signs Vital Signs - First Documented 09/02/17 09/02/17 18:32 19:38 Temp 98.9 Pulse 129 Resp 18 B/P (MAP) 166/99 (121) Pulse Ox 96 O2 Delivery Room Air Capillary Refill : Less Than 3 Seconds General Appearance: WD/WN, no apparent distress Extremities: no pedal edema, no calf tenderness, normal capillary refill, other (Healed wound with 5 mm scab over patellar tendon. Effusion noted in joint. Cellulitis of anterior knee extending up the medial aspect of the knee along the medial thigh and lymph chain. ROM not measured. He can weight bear on it.) Neurologic/Psychiatric: no motor/sensory deficits, oriented x 3 Assessment/Plan Assessment/Plan Admission Diagnosis/Plan Cellulitis right anterior knee Puncture wound right knee Possible right septic knee Possible right septic prepatellar bursitis At the bedside I aspirated the left knee and the fluid grossly was the normal yellow color but slightly cloudy. I sent it for culture, crystals, and a cell count. I will see what that shows and decide whether or not he needs surgery based upon those results. I ordered a 2000 calorie ADA diet for him for today and if he winds up needing surgery, I would plan on it for tomorrow. We should know later today based upon the fluid results. Admission Status: Inpatient Order (span 2 midnights) Reason for Inpatient Admission: He will need continued IV antibiotics for more than 2 days Clinical Quality Measures DVT/VTE Risk/Contraindication: Risk Factor Score Per Nursin RFS Level Per Nursing on Admit: 4+=Very High ALLYSSA WATKINS MD Sep 03, 2017 10:13
[2017-09-03] MEDS: inSUlin DETERMIR 1 UNIT/0.01 ML (LEVEMIR) CHARGE PER UNIT SQ SCH ×2 (10:14→20:44)
--- NOTE | 2017-09-03 10:22 | Procedure/Intervention Note ---
Procedure Note Vital Signs Vital Signs Date Time Temp Pulse Resp B/P (MAP) Pulse Ox O2 Delivery O2 Flow Rate FiO2 09/03/17 04:00 98.2 105 19 146/71 (96) 95 Room Air Procedure Note Preop diagnosis: left knee effusion Postop diagnosis: same Procedure: arthrocentesis left knee Surgeon: Noel Procedure: The left lateral knee was prepped with Chlorhexidine and the skin and lateral joint capsule were infiltrated with 2% xylocaine. An 18 gauge needle was used under sterile technique to aspirate the knee superior laterally and 12 ml of yellow, slightly cloudy fluid was obtained. I sent it for crystals, cell count and differential, and culture. He tolerated this procedure well. ALLYSSA WATKINS MD Sep 03, 2017 10:22
[2017-09-03] MEDS: RT-ALBUTEROL/IPRATROPIUM 3 ML (DUONEB) VIAL INH SCH ×2 (10:32→19:31)
[2017-09-03 11:59] LABS: BODY FLUID APPEARENCE MKD CLDY; BODY FLUID COLOR Y; BODY FLUID SOURCE SYNOVIAL
[2017-09-03 12:00] VITALS: BP 147/82
--- NOTE | 2017-09-03 12:17 | History & Physicial ([facility]S) ---
HPI History of Present Illness: 52 yo male sent to ER from walk-in clinic due to severe cellulitis worsening in spite of oral antibiotics and with tachycardia concerning for sepsis. He states that about a week and a half ago he was running wire in an attic and had either a puncture or bite on on his left knee which at first was just sore, but continued to get more red, swollen and start draining pus. Pain and swelling became so severe he could not bend his knee and could barely walk, using a cane to walk. Source: patient Date seen by provider: Sep 03, 2017 Time Seen by Provider: 10:30 Attending Physician Pranay Zambrano MD PCP Center/[facility] [place] Consult Date of Admission Sep 02, 2017 at 10:45 pm Home Medications Home Medications Reviewed patient Home Medication Reconciliation performed by pharmacy medication reconciliations budget technician and/or nursing. Patients Allergies have been reviewed. Allergies Coded Allergies: No Known Drug Allergies (Unverified , 08/25/10) GVR-Jsyilp-Qbcszx Hx Patient Social History Alcohol Use: Occasionally Uses Recreational Drug Use: Yes (10 YEARS AGO) Smoking Status: Current Everyday Smoker Type Used: Cigarettes Recent Foreign Travel: No Contact w/other who traveled: No Recent Hopitalizations: Yes Recent Infectious Disease Expo: No Physical Abuse Screen: No Sexual Abuse: No Immunizations Up To Date Tetanus Booster (TDap): Unknown Date of Pneumonia Vaccine: Sep 04, 2015 Date of Influenza Vaccine: Apr 05, 2017 Past Medical History PMHx: DMII Chronic pain Anxiety HLD PSurgHx: Left foot/ankle surgery Bladder surgery Hernia repair Family Medical History Significant Family History: AAA, Diabetes, Hypertension Review of Systems ([facility]) Constitutional: malaise EENTM: No nose congestion, No throat pain Respiratory: cough (chronic "smoker's") Cardiovascular: No chest pain Gastrointestinal: No abdominal pain, nausea (with severe knee pain certain movements), No vomiting Genitourinary: no symptoms reported Musculoskeletal: back pain (chronic) Skin: see HPI Psychiatric/Neurological: Anxiety Reviewed Test Results Reviewed Test Results Lab Laboratory Tests Test 09/02/17 19:20 09/02/17 19:30 09/03/17 04:40 09/03/17 09:58 Range/Units Urine Color YELLOW Urine Clarity CLEAR Urine pH 6.5 5-9 Urine Specific [place] 1.010 L 1.016-1.022 Urine Protein 1+ H NEGATIVE Urine Glucose (UA) 4+ H NEGATIVE Urine Ketones NEGATIVE NEGATIVE Urine Nitrite NEGATIVE NEGATIVE Urine Bilirubin NEGATIVE NEGATIVE Urine Urobilinogen NORMAL NORMAL MG/DL Urine Leukocyte Esterase NEGATIVE NEGATIVE Urine RBC (Auto) NEGATIVE NEGATIVE Urine RBC NONE /HPF Urine WBC RARE /HPF Urine Squamous Epithelial Cells RARE /HPF Urine Crystals NONE /LPF Urine Bacteria NONE /HPF Urine Casts NONE /LPF Urine Mucus NEGATIVE /LPF Urine Culture Indicated NO White Blood Count 17.1 H 14.9 H 4.3-11.0 10^3/uL Red Blood Count 3.98 L 3.60 L 4.35-5.85 10^6/uL Hemoglobin 13.0 L 11.8 L 13.3-17.7 G/DL Hematocrit 37 L 34 L 40-54 % Mean Corpuscular Volume 94 94 80-99 FL Mean Corpuscular Hemoglobin 33 33 25-34 PG Mean Corpuscular Hemoglobin Concent 35 35 32-36 G/DL Red Cell Distribution Width 12.6 12.5 10.0-14.5 % Platelet Count 226 218 130-400 10^3/uL Mean Platelet Volume 8.8 8.6 7.4-10.4 FL Neutrophils (%) (Auto) 83 H 78 H 42-75 % Lymphocytes (%) (Auto) 8 L 13 12-44 % Monocytes (%) (Auto) 9 8 0-12 % Eosinophils (%) (Auto) 1 1 0-10 % Basophils (%) (Auto) 0 0 0-10 % Neutrophils # (Auto) 14.1 H 11.6 H 1.8-7.8 X 10^3 Lymphocytes # (Auto) 1.3 1.9 1.0-4.0 X 10^3 Monocytes # (Auto) 1.5 H 1.2 H 0.0-1.0 X 10^3 Eosinophils # (Auto) 0.1 0.1 0.0-0.3 10^3/uL Basophils # (Auto) 0.0 0.0 0.0-0.1 10^3/uL Neutrophils % (Manual) 70 % Lymphocytes % (Manual) 8 % Monocytes % (Manual) 5 % Eosinophils % (Manual) 2 % Basophils % (Manual) 0 % Metamyelocytes % 1 % Band Neutrophils 14 % Blood Morphology Comment NORMAL Prothrombin Time 12.6 12.2-14.7 SEC INR Comment 0.9 0.8-1.4 Activated Partial Thromboplast Time 40 H 24-35 SEC Sodium Level 135 136 135-145 MMOL/L Potassium Level 4.1 4.0 3.6-5.0 MMOL/L Chloride Level 103 111 H 98-107 MMOL/L Carbon Dioxide Level 21 18 L 21-32 MMOL/L Anion Gap 11 7 5-14 MMOL/L Blood Urea Nitrogen 13 10 7-18 MG/DL Creatinine 1.16 0.78 0.60-1.30 MG/DL Estimat Glomerular Filtration Rate > 60 > 60 BUN/Creatinine Ratio 11 13 Glucose Level 406 *H 135 H 70-105 MG/DL Lactic Acid Level 1.75 0.50-2.00 MMOL/L Calcium Level 9.1 8.1 L 8.5-10.1 MG/DL Total Bilirubin 0.3 0.2 0.1-1.0 MG/DL Aspartate Amino Transf (AST/SGOT) 17 17 5-34 U/L Alanine Aminotransferase (ALT/SGPT) 22 14 0-55 U/L Alkaline Phosphatase 131 94 40-136 U/L Total Protein 7.8 6.2 L 6.4-8.2 GM/DL Albumin 3.8 3.1 L 3.2-4.5 GM/DL C-Reactive Protein High Sensitivity 26.35 H 0.00-0.50 MG/DL Test 09/03/17 10:37 Range/Units Glucometer 120 H 70-110 MG/DL Radiology CXR 09/02/17: IMPRESSION: Interstitial opacities appear mildly increased, this may be due to mild edema versus decreased lung volumes. Knee/soft tissue 09/02/17: IMPRESSION: 1. Superficial heterogeneous fluid collection at the anterior left knee at the puncture site measuring up to 3.2 cm in greatest dimension. 2. Anechoic deep left knee fluid collection, may represent a joint effusion. Physical Exam-([facility]) Physical Exam Vital Signs VS - Last 72 Hours, by Label 09/02/17 09/02/17 09/02/17 09/02/17 18:32 19:38 20:30 20:33 Temp 98.9 99.2 99.1 Pulse 129 113 121 Resp 18 18 22 B/P (MAP) 166/99 (121) 166/94 174/100 Pulse Ox 96 92 97 O2 Delivery Room Air Room Air Room Air 3/16/18 3/16/18 3/16/18 3/16/18 21:30 22:30 23:08 23:08 Temp 98.9 99.2 98.9 98.9 Pulse 134 112 110 110 Resp 22 20 18 18 B/P (MAP) 155/88 140/81 158/91 (118) 158/91 Pulse Ox 96 95 95 95 O2 Delivery Room Air Room Air Room Air Room Air 09/02/17 09/02/17 09/02/17 09/03/17 23:10 23:10 23:51 04:00 Temp 98.9 98.2 Pulse 118 118 105 Resp 20 19 B/P (MAP) 135/84 (101) 146/71 (96) Pulse Ox 94 94 95 O2 Delivery Room Air Room Air Room Air 09/03/17 08:00 Temp 98.9 Pulse 111 Resp 18 B/P (MAP) 136/80 (98) Pulse Ox 95 O2 Delivery Room Air Capillary Refill : Less Than 3 Seconds General Appearance: WD/WN, no apparent distress Respiratory: lungs clear, normal breath sounds Cardiovascular: regular rate, rhythm Peripheral Pulses: 2+ Left Dors-Pedis (L) Gastrointestinal: normal bowel sounds, non tender, soft Extremities: other (small amount of left lower leg edema, able to flex left knee to only about 30 degrees limited by pain) Neurologic/Psychiatric: alert, normal mood/affect Skin: other (Erythema over left knee and extending to thigh and lower leg, receded from lines drawn previously; multiple excoriations and scabs on both hands, right zeng with about 3x2 cm scabbed lesion with no erythema, 2 mm scabbed lesions over forehead) Assessment/Plan Assessment/Plan Admission Dx Cellulitis Admission Status: Inpatient Order (span 2 midnights) Reason for Inpatient Admission: Sepsis with cellulitis needs IV antibiotics and has high risk of worsening illness with possible septic arthritis. (1) Sepsis Status: Acute Assessment & Plan: Secondary to cellulitis, possible septic arthritis -Rocephin, vancomycin -Leukocytosis improved this morning, synovial fluid studies pending Qualifiers: Qualified Codes: A41.9 - Sepsis, unspecified organism (2) Cellulitis Status: Acute Assessment & Plan: See antibiotics under sepsis. Improving exam. Concern for possible septic arthritis given location over knee and with effusion , Orthopedics consulted, appreciate recommendations- arthrocentesis done this am , surgery depending on results. Qualifiers: Qualified Codes: L03.116 - Cellulitis of left lower limb (3) Elevated blood pressure reading Status: Acute Assessment & Plan: Not on anti-hypertensives normally and chart review in clinic shows normal BP at visits, will monitor closely (4) Type 2 diabetes mellitus with hyperglycemia Status: Chronic Assessment & Plan: Home med list reports taking pioglitazone, metformin and lantus, he states he is not taking pioglitazone. -Hold home orals, resume home long-acting insulin and use sliding scale as needed. Discussed importance of blood sugar control in reducing infection risk. Qualifiers: Qualified Codes: E11.65 - Type 2 diabetes mellitus with hyperglycemia; Z79.4 - intermediate manager (current) use of insulin (5) Anxiety Status: Chronic Assessment & Plan: Resume home alprazolam (6) HLD (hyperlipidemia) Status: Chronic Assessment & Plan: Atorvastatin prescribed and on reported med list, but he states he took for only a few days due to worsening GERD, will resume inpatient and monitor (7) Chronic pain Status: Chronic Permanent Comment: Low back pain Last Edited By: Pranay Zambrano on Sep 03, 2017 12:27 pm Assessment & Plan: Resume home hydrocodone and ibuprofen Qualifiers: Qualified Codes: G89.4 - Chronic pain syndrome (8) DVT prophylaxis Status: Acute Assessment & Plan: Possible surgery needed, will start enoxaparin after determined if procedure needed or not Clinical Quality Measures DVT/VTE Risk/Contraindication: Risk Factor Score Per Nursin RFS Level Per Nursing on Admit: 4+=Very High PRANAY ZAMBRANO MD Sep 03, 2017 12:17 pm
[2017-09-03 13:15] LABS: BF OTHER CELLS 0 %; LYMPHOCYTES,BODY FLUID 0 %
[2017-09-03] MEDS: PREGABALIN 75 MG (LYRICA) CAP PO SCH ×2 (13:34→20:34)
--- NOTE | 2017-09-03 13:48 | Progress Note-Standard ---
Standard Progress Note Progress Notes/Assess & Plan Date Seen by Provider: Sep 03, 2017 Time Seen by Provider: 10:30 Progress/Assessment & Plan The fluid results were assessed. There is no microbiology data entered yet. The fluid showed a WBC count of only 480. This would be consistent with a sympathetic effusion due to the local cellulitis around the knee rather than a septic knee joint. He could have a septic prepatellar bursa that might " declare itself" in the next day or two and require incision and drainage. My recommendations at this time would be to continue the IV antibiotics, and we will follow it clinically. As of now, it does not look like he needs surgery. Will follow. Final Diagnosis Cellulitis left knee Focused Exam Evaluation Lactate Level Laboratory Tests 09/02/17 19:30: Lactic Acid Level 1.75 ALLYSSA WATKINS MD Sep 03, 2017 13:48
--- NOTE | 2017-09-03 15:09 | Diagnostic Imaging Report ---
INDICATION: Left knee swelling, redness, pain, worsening for last 10 days. EXAMINATION: Left knee 09/03/2017 FINDINGS: Diffuse soft tissue swelling noted throughout the anterior aspect of the knee with a joint effusion also noted. No fracture or dislocation appreciated. Minimal medial compartment narrowing is noted. No radiopaque foreign bodies appreciated. IMPRESSION: 1. Marked soft tissue swelling and joint effusion. No acute osseous abnormality. 2. No radiopaque foreign bodies appreciated. Dictated by: Dictated on workstation # [id number]
[2017-09-03 15:40] VITALS: BP 132/82
[2017-09-03] MEDS: TAMSULOSIN 0.4 MG (FLOMAX) CAP PO SCH (16:42)
[2017-09-03] MEDS: NICOTINE 21 MG (NICODERM) PATCH TD SCH (18:51)
[2017-09-03 19:09] VITALS: BP 139/89
[2017-09-03] MEDS: cefTRIAXone 1 GM/NS 100 ML IVPB IV SCH ×2 (20:34)
[2017-09-03] MEDS: ATORVASTATIN 40 MG (LIPITOR) TABLET PO SCH (20:34)
[2017-09-03] MEDS: ALPRAZolam 1 MG (XANAX) TAB PO SCH (20:35)
[2017-09-04] VITALS (7 sets, daily range): BP systolic 129–171; BP diastolic 73–92
[2017-09-04] MEDS ORDERED: morphine INJ 4 MG/ML 1 ML (VIAL/SYRINGE) IVP PRN
[2017-09-04] MEDS: NS IV 1000 ML 1,000 ML IV SCH ×4 (00:17→22:45)
[2017-09-04] MEDS: HYDROcodone/APAP 10 MG/325 MG (LORTAB) TAB PO PRN ×4 (02:56→21:21)
[2017-09-04] MEDS: inSUlin (REGULAR) HUMAN 1 UNIT/0.01 ML (CHARGE PER UNIT) SC SCH ×4 (06:41→21:05)
[2017-09-04] MEDS: RT-ALBUTEROL/IPRATROPIUM 3 ML (DUONEB) VIAL INH SCH (07:13)
[2017-09-04] MEDS ORDERED: TROUGH ORDER-PHARMACY XX NR (08:00)
[2017-09-04 08:12] LABS: HEMOGLOBIN 12.3 G/DL (13.3-17.7); MEAN PLATELET VOLUME 8.1 FL (7.4-10.4); RED BLOOD COUNT 3.8 10^6/uL (4.35-5.85); RED CELL DISTRIBUTION WIDTH 12.3 % (10.0-14.5); WHITE BLOOD COUNT 12.1 10^3/uL (4.3-11.0)
[2017-09-04 08:30] LABS: BUN/CREATININE RATIO 11; CALCIUM 8.4 MG/DL (8.5-10.1); CARBON DIOXIDE 22 MMOL/L (21-32); CHLORIDE 105 MMOL/L (98-107); CREATININE SERUM 0.62 MG/DL (0.60-1.30); GFR ESTIMATED > 60; GLUCOSE 97 MG/DL (70-105); POTASSIUM 3.1 MMOL/L (3.6-5.0); SODIUM 136 MMOL/L (135-145)
[2017-09-04] MEDS ORDERED: KCL 20 MEQ TAB (K-DUR) PO NR (08:45)
[2017-09-04 09:25] LABS: BODY FLUID RBC COUNT 2900 /uL; BODY FLUID WBC TOTAL COUNT 1200 /uL
[2017-09-04] MEDS: PREGABALIN 75 MG (LYRICA) CAP PO SCH ×3 (09:29→20:01)
[2017-09-04] MEDS: NICOTINE 21 MG (NICODERM) PATCH TD SCH ×2 (09:31→09:35)
[2017-09-04] MEDS: VANCOMYCIN INJECTION 1,250 MG in NS (IVPB) 250 ML IV SCH ×2 (09:31→16:14)
[2017-09-04] MEDS: inSUlin DETERMIR 1 UNIT/0.01 ML (LEVEMIR) CHARGE PER UNIT SQ SCH ×2 (09:32→21:05)
[2017-09-04] MEDS: NICOTINE PATCH REMOVAL TP SCH (09:32)
--- NOTE | 2017-09-04 10:00 | Progress Note-Standard ---
Standard Progress Note Progress Notes/Assess & Plan Date Seen by Provider: Sep 04, 2017 Time Seen by Provider: 09:55 Progress/Assessment & Plan He says the knee is about the same in terms of pain. The synovial fluid cell count actually was 1,200 but this is not high enough to be septic knee joint. His serum WBC is decreased to 12k On exam, the medial redness is improved. The soft tissue swelling is better to the point that some fluctuance is noted over the prepatellar bursa. Assessment: left septic prepatellar bursitis Plan: He has been NPO all night. I set him up for incision and drainage of the left knee bursa. I told him that I will leave some Iodoform gauze packing in the incision that will have to be pulled out and changed daily. Final Diagnosis Left septic prepatellar bursitis Focused Exam Evaluation Lactate Level Laboratory Tests 09/02/17 19:30: Lactic Acid Level 1.75 ALLYSSA WATKINS MD Sep 04, 2017 10:00
[2017-09-04] MEDS ORDERED: LACTATED RINGERS 1,000 ML IV PRN (10:24)
[2017-09-04] MEDS ORDERED: LIDOCAINE PF 2% 5 ML (XYLOCAINE) VIAL ONE (10:25)
[2017-09-04] MEDS ORDERED: ONDANSETRON 4 MG/2 ML (SDV) Z0FRAN ONE (10:25)
[2017-09-04] MEDS ORDERED: fentaNYL INJECTION 100 MCG/2 ML AMP ONE (10:25)
[2017-09-04] MEDS ORDERED: proPOfol 200 MG/20 ML (DIPRIVAN) VIAL IV ONE (10:25)
[2017-09-04] MEDS ORDERED: ROCURONIUM 10 MG/ML 5 ML SYRINGE IV ONE (10:25)
[2017-09-04] MEDS ORDERED: SUCCINYLCHOLINE INJ 100 MG/5 ML SYR ONE (10:25)
[2017-09-04] MEDS ORDERED: MIDAZOLAM 2 MG/2 ML (VERSED) VIAL ONE (10:26)
[2017-09-04] MEDS ORDERED: SEVOFLURANE (ULTANE) 15 ML INHAL SOLN ONE ×2 (10:28→11:05)
[2017-09-04] MEDS ORDERED: GENTAMICIN 40 MG/ML 2 ML INJ SDV ONE (10:35)
--- NOTE | 2017-09-04 10:38 | Progress Note-Post Operative ---
Post-Operative Progess Note Surgeon (s)/Planning Division Superintendent (s) Surgeon ALLYSSA WATKINS MD Planning Division Superintendent: NONE Pre-Operative Diagnosis LEFT SEPTIC PREPATELLAR BURSITIS Post-Operative Diagnosis SAME Procedure & Operative Findings Date of Procedure 09/04/17 Procedure Performed/Findings INCISION AND DRAINAGE LEFT PREPATELLAR BURSA AND ARTHROCENTESIS LEFT KNEE (DICT CODE [id number]) Anesthesia Type GENERAL Estimated Blood Loss Estimated blood loss (mL): <5 ML Specimens/Packing Specimens Removed CULTURES Packin/4 INCH IODOFORM GAUZE ALLYSSA WATKINS MD Sep 04, 2017 10:38
[2017-09-04] MEDS ORDERED: ONDANSETRON 4 MG/2 ML (SDV) Z0FRAN IV PRN (10:45)
[2017-09-04] MEDS ORDERED: morphine INJ 10 MG/ML 1ML (SYR OR VIAL) ONE (10:52)
[2017-09-04] MEDS: morphine INJ 10 MG/ML 1ML (SYR OR VIAL) IVP PRN ×2 (11:30→11:35)
[2017-09-04] MEDS ORDERED: ONDANSETRON 4 MG/2 ML (SDV) Z0FRAN IVP PRN (11:30)
[2017-09-04] MEDS ORDERED: MEPERIDINE (DEMEROL) INJ 50 MG/ML IVP PRN (11:30)
[2017-09-04] MEDS ORDERED: HYDROmorphone (DILAUDID) 2 MG/ML VIAL IVP PRN (11:30)
[2017-09-04] MEDS: morphine INJ 4 MG/ML 1 ML (VIAL/SYRINGE) IVP PRN ×3 (13:44→17:51)
--- NOTE | 2017-09-04 14:08 | OPERATIVE REPORT ---
DATE OF SERVICE: 09/04/2017 PREOPERATIVE DIAGNOSIS: Left septic prepatellar bursitis. POSTOPERATIVE DIAGNOSIS: Left septic prepatellar bursitis. PROCEDURE: Incision and drainage of left prepatellar bursa, arthrocentesis left knee. SURGEON: Allyssa Cohen MD. ANESTHESIA: General. ESTIMATED BLOOD LOSS: Less than 5 mL. CULTURES: 1. Gram stain and culture labeled left knee joint. 2. Gram stain and culture, left knee bursa, packing quarter inch iodoform gauze packing. COMPLICATIONS: None. INDICATIONS: This man has had an injury to the left knee over a week ago in attic when something punctured the anterior aspect of the knee. He continued to work on it, went to the emergency room, was placed on the antibiotics and failed to improve. He was admitted, placed on IV antibiotics. I aspirated the knee joint yesterday and the actual synovial joint did not appear to have infection in it. The redness has gone down and now the swelling is localized over the prepatellar bursa. He comes to the operating room for incision and drainage of the left prepatellar bursa with indicated procedures. PROCEDURE IN DETAIL: Once informed consent, the patient transported to the operating room, was placed on the operating table in the supine position where general anesthesia was induced. A tourniquet was placed on the left thigh, but it was not during the case. The left lower extremity was prepped with ChloraPrep and draped in sterile fashion. A 19 gauge needle was inserted in the suprapatellar pouch and I withdrew approximately 20 mL of yellow cloudy fluid. I sent this for culture labeled left knee joint. Grossly appeared to be a sympathetic type effusion rather than what would be seen with sepsis of the knee. Then, the knee was opened through an anterior incision over the puncture over the prepatellar bursal area approximately 4 cm in length. Hemostat was placed into the incision. It was spread and about 5 mL of purulent material was drained out of the bursa. I broke up loculations in the bursa and drained further pus out of it and this was cultured separately as a culture labeled left knee bursa. The knee was thoroughly irrigated with normal saline and 80 mg of gentamicin. I packed it open with iodoform gauze packing and placed a 3-0 nylon stitch at the superior aspect of the skin incision, but left the rest of it open to drain. A bulky dressing was applied. The tourniquet was not used during the case. He then was transferred to the recovery room in stable condition. Job ID: [id number] DocumentID: [id number] Dictated Date: 09/04/2017 11:19:11 Special Delivery Carrier Date: 09/04/2017 14:06:50 Dictated By: ALLYSSA COHEN MD
--- NOTE | 2017-09-04 15:16 | Progress Note (SOAP) ---
Subjective Subjective/Events-last exam Afebrile, remains tachycardic. Underwent I&D of prepatellar bursa this am per Dr. Cohen, and is still waking from anesthesia at time of my exam so unable to answer questions. Review of Systems Date Seen by Provider: Sep 04, 2017 Time Seen by Provider: 11:23 Focused Exam Evaluation Lactate Level Laboratory Tests 09/02/17 19:30: Lactic Acid Level 1.75 Objective Exam Last Set of Vital Signs Vital Signs Date Time Temp Pulse Resp B/P (MAP) Pulse Ox O2 Delivery O2 Flow Rate FiO2 09/04/17 12:20 98.6 104 20 148/91 (110) 95 Room Air Capillary Refill : Less Than 3 Seconds I&O Intake and Output 09/04/17 00:00 Intake Total 3210 ml Output Total 2150 ml Balance 1060 ml Intake Oral 1610 ml IV Total 1600 ml Output Urine Total 2150 ml # Voids 1 # Bowel Movements 3 General: No Acute Distress, Other (somnolent from anesthesia) Lungs: Clear to Auscultation Heart: No Murmurs, Other (occasional irregular beat- Anesthesia notes PACs when tachycardic) Abdomen: Normal Bowel Sounds, Soft Extremities: Other (left knee wrapped with no drainage noted and no erythema outside of dressing (lines from previous drawing are outside dressing), 2+ pedal pulse with minimal edema) Results/Procedures Lab Laboratory Tests 09/03/17 15:45: Glucometer 98 09/03/17 20:33: Glucometer 166H 09/04/17 06:39: Glucometer 101 09/04/17 08:04: White Blood Count 12.1H, Red Blood Count 3.80L, Hemoglobin 12.3L, Hematocrit 34L , Mean Corpuscular Volume 89, Mean Corpuscular Hemoglobin 32, Mean Corpuscular Hemoglobin Concent 36, Red Cell Distribution Width 12.3, Platelet Count 239, Mean Platelet Volume 8.1, Sodium Level 136, Potassium Level 3.1L, Chloride Level 105, Carbon Dioxide Level 22, Anion Gap 9, Blood Urea Nitrogen 7, Creatinine 0.62, Estimat Glomerular Filtration Rate > 60, BUN/Creatinine Ratio 11, Glucose Level 97, Calcium Level 8.4L, Vancomycin Level Trough 5.8L 09/04/17 10:30: Glucometer 91 Microbiology 09/02/17 Blood Culture - Preliminary, Resulted No growth 09/03/17 Gram Stain - Final, Resulted 09/03/17 Body Fluid Culture - Preliminary, Resulted No growth 09/04/17 Gram Stain, Resulted Pending 09/04/17 Anaerobic Culture, Resulted Pending 09/04/17 Surgical Culture - Preliminary, Resulted Radiology CXR 09/02/17: IMPRESSION: Interstitial opacities appear mildly increased, this may be due to mild edema versus decreased lung volumes. Knee/soft tissue 09/02/17: IMPRESSION: 1. Superficial heterogeneous fluid collection at the anterior left knee at the puncture site measuring up to 3.2 cm in greatest dimension. 2. Anechoic deep left knee fluid collection, may represent a joint effusion. Assessment/Plan Assessment/Plan (1) Sepsis Status: Acute Assessment & Plan: Secondary to cellulitis, possible septic arthritis -Rocephin, vancomycin -Leukocytosis improved this morning, synovial fluid studies pending 09/04 leukocytosis continues to decrease, afebrile but remains tachycardic. Synovial fluid with 1200 WBC, not consistent with septic arthritis. I&D of prepatellar bursa this am per Dr. Cohen, cultures pending. Blood culture no growth to date. Continue rocephin and vancomycin. Qualifiers: Qualified Codes: A41.9 - Sepsis, unspecified organism (2) Cellulitis Status: Acute Assessment & Plan: See antibiotics under sepsis. Improving exam. Concern for possible septic arthritis given location over knee and with effusion , Orthopedics consulted, appreciate recommendations- arthrocentesis done this am , surgery depending on results. 09/04 I&D of prepatellar bursa this am, continue IV abx Qualifiers: Qualified Codes: L03.116 - Cellulitis of left lower limb (3) Elevated blood pressure reading Status: Acute Assessment & Plan: Not on anti-hypertensives normally and chart review in clinic shows normal BP at visits, will monitor closely (4) Type 2 diabetes mellitus with hyperglycemia Status: Chronic Assessment & Plan: Home med list reports taking pioglitazone, metformin and lantus, he states he is not taking pioglitazone. -Hold home orals, resume home long-acting insulin and use sliding scale as needed. Discussed importance of blood sugar control in reducing infection risk. Qualifiers: Qualified Codes: E11.65 - Type 2 diabetes mellitus with hyperglycemia; Z79.4 - MCFP (current) use of insulin (5) Anxiety Status: Chronic Assessment & Plan: Resume home alprazolam (6) HLD (hyperlipidemia) Status: Chronic Assessment & Plan: Atorvastatin prescribed and on reported med list, but he states he took for only a few days due to worsening GERD, will resume inpatient and monitor (7) Chronic pain Status: Chronic Permanent Comment: Low back pain Last Edited By: Pranay Zambrano on Sep 03, 2017 12:27 pm Assessment & Plan: Resume home hydrocodone and ibuprofen Qualifiers: Qualified Codes: G89.4 - Chronic pain syndrome (8) DVT prophylaxis Status: Acute Assessment & Plan: Possible surgery needed, will start enoxaparin after determined if procedure needed or not 09/04 start enoxaparin Clinical Quality Measures DVT/VTE Risk/Contraindication: Risk Factor Score Per Nursin RFS Level Per Nursing on Admit: 4+=Very High PRANAY ZAMBRANO MD Sep 04, 2017 3:16 pm
[2017-09-04] MEDS ORDERED: HYDR-3820 PO (16:14)
[2017-09-04] MEDS ORDERED: TAMS0.4C2 PO (16:14)
[2017-09-04] MEDS ORDERED: IBUP-1780 PO (16:14)
[2017-09-04] MEDS ORDERED: PIOG45TA7 PO (16:14)
[2017-09-04] MEDS ORDERED: ALPR1TAB7 PO (16:14)
[2017-09-04] MEDS ORDERED: PREG150C PO (16:14)
[2017-09-04] MEDS ORDERED: SULF-222 PO (16:14)
[2017-09-04] MEDS: TAMSULOSIN 0.4 MG (FLOMAX) CAP PO SCH (16:14)
[2017-09-04] MEDS: ALPRAZolam 1 MG (XANAX) TAB PO SCH (20:01)
[2017-09-04] MEDS: ATORVASTATIN 40 MG (LIPITOR) TABLET PO SCH (20:01)
[2017-09-04] MEDS: cefTRIAXone 1 GM/NS 100 ML IVPB IV SCH ×2 (20:02)
--- NOTE | 2017-09-04 21:22 | Anesthesia-General Post-Op ---
General Patient Condition Mental Status/LOC: Same as Preop Cardiovascular: Satisfactory Nausea/Vomiting: Absent Respiratory: Satisfactory Pain: Controlled Complications: Absent Post Op Complications Complications None Follow Up Care/Instructions Patient Instructions None needed. Anesthesia/Patient Condition Patient Condition Patient is doing well, no complaints, stable vital signs, no apparent adverse anesthesia problems. No complications reported per nursing. KRISHNA TOVAR CRNA Sep 04, 2017 21:21
[2017-09-04] MEDS: ENOXAPARIN 40 MG/0.4 ML (LOVENOX) SYR SC SCH (22:45)
[2017-09-05 00:43] VITALS: BP 116/77
[2017-09-05] MEDS: HYDROcodone/APAP 10 MG/325 MG (LORTAB) TAB PO PRN ×5 (01:41→20:30)
[2017-09-05 04:42] VITALS: BP 100/65
[2017-09-05 06:06] LABS: BASOPHILS % (AUTO) 0 % (0-10); EOSINOPHILS # (AUTO) 0.2 10^3/uL (0.0-0.3); EOSINOPHILS % (AUTO) 1 % (0-10); HEMATOCRIT 31 % (40-54); HEMOGLOBIN 10.9 G/DL (13.3-17.7); LYMPHOCYTES # (AUTO) 2.8 X 10^3 (1.0-4.0); LYMPHOCYTES % (AUTO) 25 % (12-44); MEAN CORPUSCULAR HEMOGLOBIN 33 PG (25-34); MEAN CORPUSCULAR HGB CONC 35 G/DL (32-36); MEAN CORPUSCULAR VOLUME 92 FL (80-99); MEAN PLATELET VOLUME 8.2 FL (7.4-10.4); MONOCYTES # (AUTO) 1.5 X 10^3 (0.0-1.0); MONOCYTES % (AUTO) 13 % (0-12); NEUTROPHILS # (AUTO) 6.7 X 10^3 (1.8-7.8); NEUTROPHILS % (AUTO) 60 % (42-75); PLATELET COUNT 235 10^3/uL (130-400); RED BLOOD COUNT 3.34 10^6/uL (4.35-5.85); RED CELL DISTRIBUTION WIDTH 12.6 % (10.0-14.5); WHITE BLOOD COUNT 11.1 10^3/uL (4.3-11.0)
[2017-09-05] MEDS: inSUlin (REGULAR) HUMAN 1 UNIT/0.01 ML (CHARGE PER UNIT) SC SCH ×4 (06:11→20:31)
[2017-09-05] MEDS: NS IV 1000 ML 1,000 ML IV SCH ×4 (06:11→23:36)
[2017-09-05 06:35] LABS: BUN/CREATININE RATIO 13; CALCIUM 7.8 MG/DL (8.5-10.1); CARBON DIOXIDE 24 MMOL/L (21-32); CHLORIDE 109 MMOL/L (98-107); CREATININE SERUM 0.71 MG/DL (0.60-1.30); GFR ESTIMATED > 60; GLUCOSE 64 MG/DL (70-105); POTASSIUM 3.4 MMOL/L (3.6-5.0); SODIUM 138 MMOL/L (135-145)
[2017-09-05 08:00] VITALS: BP 147/87
[2017-09-05] MEDS ORDERED: TROUGH ORDER-PHARMACY XX NR (08:00)
[2017-09-05] MEDS: NICOTINE PATCH REMOVAL TP SCH (08:31)
[2017-09-05] MEDS: NICOTINE 21 MG (NICODERM) PATCH TD SCH ×2 (08:31→09:11)
[2017-09-05] MEDS: PREGABALIN 75 MG (LYRICA) CAP PO SCH ×3 (08:31→20:30)
[2017-09-05] MEDS: VANCOMYCIN INJECTION 1,250 MG in NS (IVPB) 250 ML IV SCH ×4 (09:13→17:04)
--- NOTE | 2017-09-05 09:33 | Physical Therapy Progress Note ---
Therapy Progress Note Patient is up with cane in room ad celestino without difficulty. Patient voices he is ready to return to home and does not need PT. PT assessed patient mobility in room and patient is safe and is encouraged to ambulate in hallway PRN. Patient voices understanding. RN notified. 1 visit CHAD HERNANDEZ PT Sep 05, 2017 09:33
[2017-09-05] MEDS: inSUlin DETERMIR 1 UNIT/0.01 ML (LEVEMIR) CHARGE PER UNIT SQ SCH ×2 (09:53→20:31)
[2017-09-05] MEDS: IBUPROFEN 800 MG (MOTRIN) TAB PO PRN (09:54)
[2017-09-05 11:59] VITALS: BP 130/78
--- NOTE | 2017-09-05 13:28 | Progress Note (SOAP) ---
Subjective Date Seen by Provider: Sep 05, 2017 Time Seen by Provider: 13:30 Subjective/Events-last exam Knee is tender but doing better today. Review of Systems General: No Chills, No Night Sweats, No Fatigue, No Malaise HEENT: No Head Aches, No Eye Pain, No Ear Pain, No Dysphasia, No Sinus Congestion, No Post Nasal Drip, No Sore Throat Pulmonary: No Dyspnea, No Cough, No Pleuritic Chest Pain Cardiovascular: No: Chest Pain, Palpitations, Orthopnea, Paroxysmal Noc. Dyspnea, Edema, Lt Headedness Gastrointestinal: No: Nausea, Vomiting, Abdominal Pain, Diarrhea, Constipation , Melena, Hematochezia Genitourinary: No Dysuria, No Frequency, No Incontinence, No Hematuria, No Retention Musculoskeletal: No: other, neck pain, shoulder pain, arm pain, back pain, hand pain, leg pain, foot pain Neurological: No: Weakness, Numbness, Incoordination, Change in speech, Confusion, Seizures, Other Focused Exam Evaluation Lactate Level Laboratory Tests 09/02/17 19:30: Lactic Acid Level 1.75 Objective Exam Vital Signs Date Time Temp Pulse Resp B/P (MAP) Pulse Ox O2 Delivery O2 Flow Rate FiO2 09/05/17 11:59 98.3 95 20 130/78 (95) 96 Room Air 09/05/17 08:00 97.5 108 20 147/87 (107) 96 Room Air 09/05/17 04:42 98.0 88 20 100/65 (77) 94 Room Air 09/05/17 00:43 98.5 108 18 116/77 (90) 95 Room Air 09/04/17 19:26 99.1 117 20 132/73 (92) 93 Room Air 09/04/17 16:00 99.6 114 20 171/92 (118) 95 Room Air I & O 09/05/17 07:00 Intake Total 1380 ml Output Total 1875 ml Balance -495 ml Capillary Refill : Less Than 3 Seconds General Appearance: No Apparent Distress, WD/WN, No Anxious, No Chronically ill , No Cachetic, No Mild Distress, No Moderate Distress, No Obese, No Severe Distress, No Thin, No Other HEENT: PERRL/EOMI, TMs Normal, Normal ENT Inspection, Pharynx Normal Neck: Full Range of Motion, Normal Inspection, Non Tender, Supple Respiratory: Chest Non Tender, Lungs Clear, Normal Breath Sounds, No Accessory Muscle Use, No Respiratory Distress Cardiovascular: Regular Rate, Rhythm, No Edema, No Gallop, No JVD, No Murmur, Normal Peripheral Pulses Extremity: Normal Range of Motion (5 to 50 degress. The medial erythema has decreased since yesterday. ), No Non Tender, No No Calf Tenderness, No No Pedal Edema, No Calf Tenderness, No Inflammation, No Pedal Edema, No Pelvis Stable, No Slow Capillary Refill, No Swelling, No Other Results Lab Laboratory Tests 09/04/17 15:59: Glucometer 241H 09/04/17 20:44: Glucometer 241H 09/05/17 05:35: White Blood Count 11.1H, Red Blood Count 3.34L, Hemoglobin 10.9L, Hematocrit 31L , Mean Corpuscular Volume 92, Mean Corpuscular Hemoglobin 33, Mean Corpuscular Hemoglobin Concent 35, Red Cell Distribution Width 12.6, Platelet Count 235, Mean Platelet Volume 8.2, Neutrophils (%) (Auto) 60, Lymphocytes (%) (Auto) 25, Monocytes (%) (Auto) 13H, Eosinophils (%) (Auto) 1, Basophils (%) (Auto) 0, Neutrophils # (Auto) 6.7, Lymphocytes # (Auto) 2.8, Monocytes # (Auto) 1.5H, Eosinophils # (Auto) 0.2, Basophils # (Auto) 0.0, Sodium Level 138, Potassium Level 3.4L, Chloride Level 109H, Carbon Dioxide Level 24, Anion Gap 5, Blood Urea Nitrogen 9, Creatinine 0.71, Estimat Glomerular Filtration Rate > 60, BUN/ Creatinine Ratio 13, Glucose Level 64L, Calcium Level 7.8L 09/05/17 05:39: Glucometer 60*L 09/05/17 06:14: Glucometer 103 09/05/17 08:21: Vancomycin Level Trough 14.9 09/05/17 10:53: Glucometer 205H Microbiology 09/02/17 Blood Culture - Preliminary, Resulted No growth 09/03/17 Gram Stain - Final, Resulted 09/03/17 Body Fluid Culture - Preliminary, Resulted No growth 09/04/17 Gram Stain - Final, Resulted 09/04/17 Anaerobic Culture, Resulted Pending 09/04/17 Surgical Culture - Preliminary, Resulted Staphylococcus aureus Assessment/Plan Assessment/Plan Assess & Plan/Chief Complaint Left knee septic prepatellar bursitis Plan. Knee joint fluid culture is still negative for microbacteria and growth. The prepatellar bursa culture shows heavy growth of staph aureus seen but no culture results. I change the dressing today and repacked the wound with less iodoform. Will revaluated microbiology results tomorrow. Final Diagnosis septic left knee prepatellar bursitis Clinical Quality Measures DVT/VTE Risk/Contraindication: Risk Factor Score Per Nursin RFS Level Per Nursing on Admit: 4+=Very High ZEN GARZA Sep 05, 2017 13:28
--- NOTE | 2017-09-05 13:45 | Progress Note (SOAP) ---
Subjective Subjective/Events-last exam Patient ambulating around halls and off unit. Seen in room. Reports that he is feeling overall pretty well, with just some soreness in his knee. 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 No acute events overnight, no concerns from nursing staff. Review of Systems Date Seen by Provider: Sep 05, 2017 Time Seen by Provider: 11:35 General: No Chills, No Night Sweats HEENT: No Head Aches, No Dysphasia Pulmonary: No Dyspnea, No Cough Cardiovascular: No: Chest Pain, Palpitations Gastrointestinal: No: Nausea, Vomiting, Abdominal Pain Genitourinary: No Dysuria, No Hematuria, No Retention Musculoskeletal: leg pain Neurological: No: Weakness, Numbness, Incoordination, Change in speech, Confusion, Seizures Focused Exam Evaluation Possible Source: Bone/Joint Lactate Level Laboratory Tests 09/02/17 19:30: Lactic Acid Level 1.75 Time of Focused Exam: 11:35 Respiratory: Chest Non Tender, Lungs Clear, Normal Breath Sounds, No Accessory Muscle Use, Accessory Muscle Use, No Respiratory Distress, No Rhonci, No Stridor Cardiovascular: Regular Rate, Rhythm, No Edema, No Gallop, No Murmur Capillary Refill: Less Than 3 Seconds Peripheral Pulses: 2+ Radial Pulses (R), 2+ Radial Pulses (L) Skin: normal color, warm/dry Objective Exam Last Set of Vital Signs Vital Signs Date Time Temp Pulse Resp B/P (MAP) Pulse Ox O2 Delivery O2 Flow Rate FiO2 09/05/17 11:59 98.3 95 20 130/78 (95) 96 Room Air Capillary Refill : Less Than 3 Seconds I&O Intake and Output 09/05/17 00:00 Intake Total 2380 ml Output Total 3800 ml Balance -1420 ml Intake Oral 1380 ml IV Total 1000 ml Output Urine Total 3800 ml # Voids 1 # Bowel Movements 1 General: Alert, Oriented X3, Cooperative, No Acute Distress HEENT: Atraumatic, EOMI, Mucous Memb Moist/High [place] Neck: Supple, No Thyromegaly Lungs: Clear to Auscultation, Normal Air Movement Heart: Regular Rate, Normal S1, Normal S2, No Murmurs Abdomen: Normal Bowel Sounds, Soft, No Tenderness, No Hepatosplenomegaly Extremities: No Clubbing, No Cyanosis, Other (left knee swelling) Skin: Other (knee incision healing well) Neuro: Normal Gait, Normal Speech, Normal Tone, Sensation Intact, Cranial Nerves 3-12 NL Psych/Mental Status: Mental Status NL, Mood NL Results/Procedures Lab Laboratory Tests 09/04/17 15:59: Glucometer 241H 09/04/17 20:44: Glucometer 241H 09/05/17 05:35: White Blood Count 11.1H, Red Blood Count 3.34L, Hemoglobin 10.9L, Hematocrit 31L , Mean Corpuscular Volume 92, Mean Corpuscular Hemoglobin 33, Mean Corpuscular Hemoglobin Concent 35, Red Cell Distribution Width 12.6, Platelet Count 235, Mean Platelet Volume 8.2, Neutrophils (%) (Auto) 60, Lymphocytes (%) (Auto) 25, Monocytes (%) (Auto) 13H, Eosinophils (%) (Auto) 1, Basophils (%) (Auto) 0, Neutrophils # (Auto) 6.7, Lymphocytes # (Auto) 2.8, Monocytes # (Auto) 1.5H, Eosinophils # (Auto) 0.2, Basophils # (Auto) 0.0, Sodium Level 138, Potassium Level 3.4L, Chloride Level 109H, Carbon Dioxide Level 24, Anion Gap 5, Blood Urea Nitrogen 9, Creatinine 0.71, Estimat Glomerular Filtration Rate > 60, BUN/ Creatinine Ratio 13, Glucose Level 64L, Calcium Level 7.8L 09/05/17 05:39: Glucometer 60*L 09/05/17 06:14: Glucometer 103 09/05/17 08:21: Vancomycin Level Trough 14.9 09/05/17 10:53: Glucometer 205H Microbiology 09/02/17 Blood Culture - Preliminary, Resulted No growth 09/03/17 Gram Stain - Final, Resulted 09/03/17 Body Fluid Culture - Preliminary, Resulted No growth 09/04/17 Gram Stain - Final, Resulted 09/04/17 Anaerobic Culture, Resulted Pending 09/04/17 Surgical Culture - Preliminary, Resulted Staphylococcus aureus Radiology CXR 09/02/17: IMPRESSION: Interstitial opacities appear mildly increased, this may be due to mild edema versus decreased lung volumes. Knee/soft tissue 09/02/17: IMPRESSION: 1. Superficial heterogeneous fluid collection at the anterior left knee at the puncture site measuring up to 3.2 cm in greatest dimension. 2. Anechoic deep left knee fluid collection, may represent a joint effusion. Assessment/Plan Assessment/Plan Admission Dx Sepsis, Infected Bursa, Left Knee Admission Status: Inpatient Order (span 2 midnights) (1) Sepsis Status: Acute Assessment & Plan: Secondary to cellulitis, possible septic arthritis -Rocephin, vancomycin -Leukocytosis improved this morning, synovial fluid studies pending 09/04 leukocytosis continues to decrease, afebrile but remains tachycardic. Synovial fluid with 1200 WBC, not consistent with septic arthritis. I&D of prepatellar bursa this am per Dr. Cohen, cultures pending. Blood culture no growth to date. Continue rocephin and vancomycin. 09/05 -Day 3 Rocephin -Day 3 Vancomycin -s/p gentamycin washout left knee bursa -+staph aureus, final C&S pending Qualifiers: Qualified Codes: A41.9 - Sepsis, unspecified organism (2) Cellulitis Status: Acute Assessment & Plan: See antibiotics under sepsis. Improving exam. Concern for possible septic arthritis given location over knee and with effusion , Orthopedics consulted, appreciate recommendations- arthrocentesis done this am , surgery depending on results. 09/04 I&D of prepatellar bursa this am, continue IV abx 09/05 -continue rocephin and vanc, pending final C&S Qualifiers: Qualified Codes: L03.116 - Cellulitis of left lower limb (3) Elevated blood pressure reading Status: Acute Assessment & Plan: Not on anti-hypertensives normally and chart review in clinic shows normal BP at visits, will monitor closely (4) Type 2 diabetes mellitus with hyperglycemia Status: Chronic Assessment & Plan: Home med list reports taking pioglitazone, metformin and lantus, he states he is not taking pioglitazone. -Hold home orals, resume home long-acting insulin and use sliding scale as needed. Discussed importance of blood sugar control in reducing infection risk. 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 (5) Anxiety Status: Chronic Assessment & Plan: Resume home alprazolam (6) HLD (hyperlipidemia) Status: Chronic Assessment & Plan: Atorvastatin prescribed and on reported med list, but he states he took for only a few days due to worsening GERD, will resume inpatient and monitor (7) Chronic pain Status: Chronic Permanent Comment: Low back pain Last Edited By: Georgia Zambrano on Sep 03, 2017 12:27 Assessment & Plan: Resume home hydrocodone and ibuprofen Qualifiers: Qualified Codes: G89.4 - Chronic pain syndrome (8) DVT prophylaxis Status: Acute Assessment & Plan: Possible surgery needed, will start enoxaparin after determined if procedure needed or not 09/04 start enoxaparin 09/05 -continue lovenox for DVT Ppx Clinical Quality Measures DVT/VTE Risk/Contraindication: Risk Factor Score Per Nursin RFS Level Per Nursing on Admit: 4+=Very High Copy Copies To 1: [facility]/KAITLYNN CARCAMO DO Sep 05, 2017 13:45
[2017-09-05 16:40] VITALS: BP 136/80
[2017-09-05] MEDS: TAMSULOSIN 0.4 MG (FLOMAX) CAP PO SCH (17:04)
[2017-09-05] MEDS: ALPRAZolam 1 MG (XANAX) TAB PO SCH (20:30)
[2017-09-05] MEDS: cefTRIAXone 1 GM/NS 100 ML IVPB IV SCH ×2 (20:30)
[2017-09-05] MEDS: ATORVASTATIN 40 MG (LIPITOR) TABLET PO SCH (20:30)
[2017-09-05] MEDS: ENOXAPARIN 40 MG/0.4 ML (LOVENOX) SYR SC SCH (23:36)
[2017-09-06] VITALS: BP 136/82
[2017-09-06] MEDS: HYDROcodone/APAP 10 MG/325 MG (LORTAB) TAB PO PRN ×3 (01:05→12:30)
[2017-09-06] MEDS: VANCOMYCIN INJECTION 1,250 MG in NS (IVPB) 250 ML IV SCH ×2 (01:05→08:33)
[2017-09-06 05:25] LABS: BASOPHILS % (AUTO) 1 % (0-10); EOSINOPHILS # (AUTO) 0.2 10^3/uL (0.0-0.3); EOSINOPHILS % (AUTO) 2 % (0-10); HEMATOCRIT 33 % (40-54); LYMPHOCYTES # (AUTO) 2.8 X 10^3 (1.0-4.0); LYMPHOCYTES % (AUTO) 31 % (12-44); MEAN CORPUSCULAR HEMOGLOBIN 32 PG (25-34); MEAN CORPUSCULAR HGB CONC 34 G/DL (32-36); MEAN CORPUSCULAR VOLUME 94 FL (80-99); MEAN PLATELET VOLUME 8.3 FL (7.4-10.4); MONOCYTES # (AUTO) 1.1 X 10^3 (0.0-1.0); MONOCYTES % (AUTO) 12 % (0-12); NEUTROPHILS # (AUTO) 4.8 X 10^3 (1.8-7.8); NEUTROPHILS % (AUTO) 54 % (42-75); PLATELET COUNT 242 10^3/uL (130-400); RED BLOOD COUNT 3.45 10^6/uL (4.35-5.85); RED CELL DISTRIBUTION WIDTH 12.5 % (10.0-14.5); WHITE BLOOD COUNT 8.8 10^3/uL (4.3-11.0)
[2017-09-06] MEDS: inSUlin (REGULAR) HUMAN 1 UNIT/0.01 ML (CHARGE PER UNIT) SC SCH ×3 (05:35→15:47)
[2017-09-06 06:02] LABS: BUN/CREATININE RATIO 12; CALCIUM 8.4 MG/DL (8.5-10.1); CARBON DIOXIDE 22 MMOL/L (21-32); CHLORIDE 110 MMOL/L (98-107); CREATININE SERUM 0.65 MG/DL (0.60-1.30); GFR ESTIMATED > 60; GLUCOSE 108 MG/DL (70-105); MAGNESIUM 1.9 MG/DL (1.8-2.4); POTASSIUM 3.2 MMOL/L (3.6-5.0); SODIUM 140 MMOL/L (135-145)
[2017-09-06 08:00] VITALS: BP 139/75
[2017-09-06] MEDS: PREGABALIN 75 MG (LYRICA) CAP PO SCH ×2 (08:33→12:30)
[2017-09-06] MEDS: inSUlin DETERMIR 1 UNIT/0.01 ML (LEVEMIR) CHARGE PER UNIT SQ SCH (08:33)
[2017-09-06] MEDS: NS IV 1000 ML 1,000 ML IV SCH ×2 (08:33→14:16)
[2017-09-06] MEDS: morphine INJ 4 MG/ML 1 ML (VIAL/SYRINGE) IVP PRN (08:59)
[2017-09-06] MEDS: IBUPROFEN 800 MG (MOTRIN) TAB PO PRN (08:59)
[2017-09-06] MEDS: NICOTINE 21 MG (NICODERM) PATCH TD SCH (09:00)
[2017-09-06] MEDS: NICOTINE PATCH REMOVAL TP SCH (09:01)
[2017-09-06] MEDS ORDERED: KCL 20 MEQ TAB (K-DUR) PO NR (10:00)
--- NOTE | 2017-09-06 11:10 | Progress Note (SOAP) ---
Focused Exam Time of Focused Exam: 11:35 Objective Exam Last Set of Vital Signs Vital Signs Date Time Temp Pulse Resp B/P (MAP) Pulse Ox O2 Delivery O2 Flow Rate FiO2 09/06/17 08:00 98.0 87 20 139/75 (96) 96 Room Air Capillary Refill : Less Than 3 Seconds I&O Intake and Output 09/06/17 00:00 Intake Total 3210 ml Output Total 100 ml Balance 3110 ml Intake Oral 1960 ml IV Total 1250 ml Output Urine Total 100 ml # Voids 16 # Bowel Movements 2 Results/Procedures Lab Laboratory Tests 09/05/17 16:43: Glucometer 180H 09/05/17 20:20: Glucometer 244H 09/06/17 05:10: White Blood Count 8.8, Red Blood Count 3.45L, Hemoglobin 11.0L, Hematocrit 33L, Mean Corpuscular Volume 94, Mean Corpuscular Hemoglobin 32, Mean Corpuscular Hemoglobin Concent 34, Red Cell Distribution Width 12.5, Platelet Count 242, Mean Platelet Volume 8.3, Neutrophils (%) (Auto) 54, Lymphocytes (%) (Auto) 31, Monocytes (%) (Auto) 12, Eosinophils (%) (Auto) 2, Basophils (%) (Auto) 1, Neutrophils # (Auto) 4.8, Lymphocytes # (Auto) 2.8, Monocytes # (Auto) 1.1H, Eosinophils # (Auto) 0.2, Basophils # (Auto) 0.0, Sodium Level 140, Potassium Level 3.2L, Chloride Level 110H, Carbon Dioxide Level 22, Anion Gap 8, Blood Urea Nitrogen 8, Creatinine 0.65, Estimat Glomerular Filtration Rate > 60, BUN/ Creatinine Ratio 12, Glucose Level 108H, Calcium Level 8.4L, Magnesium Level 1.9 09/06/17 05:27: Glucometer 128H 09/06/17 10:42: Glucometer 159H Microbiology 09/02/17 Blood Culture - Preliminary, Resulted No growth 09/03/17 Gram Stain - Final, Resulted 09/03/17 Body Fluid Culture - Preliminary, Resulted No growth 09/04/17 Gram Stain - Final, Resulted 09/04/17 Anaerobic Culture - Preliminary, Resulted No anaerobes isolated 09/04/17 Surgical Culture - Preliminary, Resulted Staphylococcus aureus Radiology CXR 09/02/17: IMPRESSION: Interstitial opacities appear mildly increased, this may be due to mild edema versus decreased lung volumes. Knee/soft tissue 09/02/17: IMPRESSION: 1. Superficial heterogeneous fluid collection at the anterior left knee at the puncture site measuring up to 3.2 cm in greatest dimension. 2. Anechoic deep left knee fluid collection, may represent a joint effusion. 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
[2017-09-06 12:00] VITALS: BP 166/85
--- NOTE | 2017-09-06 15:41 | Progress Note-Standard ---
Standard Progress Note Progress Notes/Assess & Plan Date Seen by Provider: Sep 06, 2017 Time Seen by Provider: 15:32 Progress/Assessment & Plan S: Patient knee is doing much better today. O: VSS Left knee wound is showing early signs of healing. It id dry and clean with no drainage. No erythema or cellulitis noted. pedal edema at 2+. ROM 5 -100 degrees. N/V/M/I. Bursa specimen shows Staph Aureus which is sensitive to Keflex. No growth of the knee aspirate. A: left knee septic prepatellar bursitis sensitive to Keflex. P: Patient will be discharged home today on Keflex 500 mg QID for 20 days. He will do daily dressing changes with dry sterile dressing. He was informed to stay off work and not to get his knee wet until release by the doctor. He will follow up with Dr. Cohen in [place] next week for a wound check. Final Diagnosis Left knee septic prepatellar bursitis Focused Exam Time of Focused Exam: 11:35 ZEN GARZA Sep 06, 2017 15:41
--- NOTE | 2017-09-06 15:45 | Discharge Summary ---
Diagnosis/Chief Complaint Date of Admission Sep 02, 2017 at 22:45 Date of Discharge Chief Complaint/HPI Chief Complaint/HPI 52 yo male sent to ER from walk-in clinic due to severe cellulitis worsening in spite of oral antibiotics and with tachycardia concerning for sepsis. He states that about a week and a half ago he was running wire in an attic and had either a puncture or bite on on his left knee which at first was just sore, but continued to get more red, swollen and start draining pus. Pain and swelling became so severe he could not bend his knee and could barely walk, using a cane to walk. Discharge Summary-Simple/Stand Consultations Discharge Physical Examination Allergies: Coded Allergies: No Known Drug Allergies (Unverified , 08/25/10) Vitals & I&Os Vital Sign - Last 12Hours Date Time Temp Pulse Resp B/P (MAP) Pulse Ox O2 Delivery O2 Flow Rate FiO2 09/06/17 12:00 98.1 97 20 166/85 (112) 96 Room Air Intake and Output 09/06/17 00:00 Intake Total 2560 ml Balance 2560 ml Hospital Course See final discharge diagnosis. Labs Laboratory Tests Test 09/03/17 15:45 09/03/17 20:33 09/04/17 06:39 09/04/17 08:04 Range/Units Glucometer 98 166 H 101 70-110 MG/DL White Blood Count 12.1 H 4.3-11.0 10^3/uL Red Blood Count 3.80 L 4.35-5.85 10^6/uL Hemoglobin 12.3 L 13.3-17.7 G/DL Hematocrit 34 L 40-54 % Mean Corpuscular Volume 89 80-99 FL Mean Corpuscular Hemoglobin 32 25-34 PG Mean Corpuscular Hemoglobin Concent 36 32-36 G/DL Red Cell Distribution Width 12.3 10.0-14.5 % Platelet Count 239 130-400 10^3/uL Mean Platelet Volume 8.1 7.4-10.4 FL Sodium Level 136 135-145 MMOL/L Potassium Level 3.1 L 3.6-5.0 MMOL/L Chloride Level 105 98-107 MMOL/L Carbon Dioxide Level 22 21-32 MMOL/L Anion Gap 9 5-14 MMOL/L Blood Urea Nitrogen 7 7-18 MG/DL Creatinine 0.62 0.60-1.30 MG/DL Estimat Glomerular Filtration Rate > 60 BUN/Creatinine Ratio 11 Glucose Level 97 70-105 MG/DL Calcium Level 8.4 L 8.5-10.1 MG/DL Vancomycin Level Trough 5.8 L 10.0-20.0 UG/ML Test 09/04/17 10:30 09/04/17 15:59 09/04/17 20:44 09/05/17 05:35 Range/Units Glucometer 91 241 H 241 H 70-110 MG/DL White Blood Count 11.1 H 4.3-11.0 10^3/uL Red Blood Count 3.34 L 4.35-5.85 10^6/uL Hemoglobin 10.9 L 13.3-17.7 G/DL Hematocrit 31 L 40-54 % Mean Corpuscular Volume 92 80-99 FL Mean Corpuscular Hemoglobin 33 25-34 PG Mean Corpuscular Hemoglobin Concent 35 32-36 G/DL Red Cell Distribution Width 12.6 10.0-14.5 % Platelet Count 235 130-400 10^3/uL Mean Platelet Volume 8.2 7.4-10.4 FL Neutrophils (%) (Auto) 60 42-75 % Lymphocytes (%) (Auto) 25 12-44 % Monocytes (%) (Auto) 13 H 0-12 % Eosinophils (%) (Auto) 1 0-10 % Basophils (%) (Auto) 0 0-10 % Neutrophils # (Auto) 6.7 1.8-7.8 X 10^3 Lymphocytes # (Auto) 2.8 1.0-4.0 X 10^3 Monocytes # (Auto) 1.5 H 0.0-1.0 X 10^3 Eosinophils # (Auto) 0.2 0.0-0.3 10^3/uL Basophils # (Auto) 0.0 0.0-0.1 10^3/uL Sodium Level 138 135-145 MMOL/L Potassium Level 3.4 L 3.6-5.0 MMOL/L Chloride Level 109 H 98-107 MMOL/L Carbon Dioxide Level 24 21-32 MMOL/L Anion Gap 5 5-14 MMOL/L Blood Urea Nitrogen 9 7-18 MG/DL Creatinine 0.71 0.60-1.30 MG/DL Estimat Glomerular Filtration Rate > 60 BUN/Creatinine Ratio 13 Glucose Level 64 L 70-105 MG/DL Calcium Level 7.8 L 8.5-10.1 MG/DL Test 09/05/17 05:39 09/05/17 06:14 09/05/17 08:21 09/05/17 10:53 Range/Units Glucometer 60 *L 103 205 H 70-110 MG/DL Vancomycin Level Trough 14.9 10.0-20.0 UG/ML Test 09/05/17 16:43 09/05/17 20:20 09/06/17 05:10 09/06/17 05:27 Range/Units Glucometer 180 H 244 H 128 H 70-110 MG/DL White Blood Count 8.8 4.3-11.0 10^3/uL Red Blood Count 3.45 L 4.35-5.85 10^6/uL Hemoglobin 11.0 L 13.3-17.7 G/DL Hematocrit 33 L 40-54 % Mean Corpuscular Volume 94 80-99 FL Mean Corpuscular Hemoglobin 32 25-34 PG Mean Corpuscular Hemoglobin Concent 34 32-36 G/DL Red Cell Distribution Width 12.5 10.0-14.5 % Platelet Count 242 130-400 10^3/uL Mean Platelet Volume 8.3 7.4-10.4 FL Neutrophils (%) (Auto) 54 42-75 % Lymphocytes (%) (Auto) 31 12-44 % Monocytes (%) (Auto) 12 0-12 % Eosinophils (%) (Auto) 2 0-10 % Basophils (%) (Auto) 1 0-10 % Neutrophils # (Auto) 4.8 1.8-7.8 X 10^3 Lymphocytes # (Auto) 2.8 1.0-4.0 X 10^3 Monocytes # (Auto) 1.1 H 0.0-1.0 X 10^3 Eosinophils # (Auto) 0.2 0.0-0.3 10^3/uL Basophils # (Auto) 0.0 0.0-0.1 10^3/uL Sodium Level 140 135-145 MMOL/L Potassium Level 3.2 L 3.6-5.0 MMOL/L Chloride Level 110 H 98-107 MMOL/L Carbon Dioxide Level 22 21-32 MMOL/L Anion Gap 8 5-14 MMOL/L Blood Urea Nitrogen 8 7-18 MG/DL Creatinine 0.65 0.60-1.30 MG/DL Estimat Glomerular Filtration Rate > 60 BUN/Creatinine Ratio 12 Glucose Level 108 H 70-105 MG/DL Calcium Level 8.4 L 8.5-10.1 MG/DL Magnesium Level 1.9 1.8-2.4 MG/DL Test 09/06/17 10:42 Range/Units Glucometer 159 H 70-110 MG/DL Radiology Reviewed CXR 09/02/17: IMPRESSION: Interstitial opacities appear mildly increased, this may be due to mild edema versus decreased lung volumes. Knee/soft tissue 09/02/17: IMPRESSION: 1. Superficial heterogeneous fluid collection at the anterior left knee at the puncture site measuring up to 3.2 cm in greatest dimension. 2. Anechoic deep left knee fluid collection, may represent a joint effusion. Discharge Instructions to patient/family Please see electronic discharge instructions given to patient. Discharge Medications Reviewed and agree with Discharge Medication list on patient's Discharge Instruction sheet Clinical Quality Measures DVT/VTE Risk/Contraindication: Risk Factor Score Per Nursin RFS Level Per Nursing on Admit: 4+=Very High KAITLYNN DHILLON DO Sep 06, 2017 15:45
[2017-09-06] MEDS ORDERED: HYDR-3820 PO (15:55)
[2017-09-06] MEDS ORDERED: CEPH-507 PO (15:55)
--- NOTE | 2017-09-06 15:59 | Discharge Instructions ---
Discharge [facility] Discharge Medications New, Converted or Re-Newed RX: RX on Chart New Medications: Cephalexin (Keflex) 500 Mg Capsule 500 MG PO QID for septic knee for 20 Days, #40 CAP 0 Refills Changed Medications: Hydrocodone/Acetaminophen (Hydrocodon-Acetaminophn 10-325) 1 Each Tablet 1-2 TAB PO 4-6 hours PRN for PAIN-BREAKTHROUGH MDD 6 for 10 Days, #40 TAB 0 Refills (Changed from: 1 TAB; TID; Refills: ) Continued Medications: Alprazolam (Alprazolam) 1 Mg Tablet 1 MG PO HS Ibuprofen (Ibuprofen) 800 Mg Tablet 800 MG PO Q8H, TAB Insulin Glargine,Hum.rec.anlog (Lantus Solostar) 100 Unit/1 Ml Insuln.pen 20-30 UNITS SQ BID, EA Metformin HCl (Metformin HCl ER) 500 Mg Tab.er.24h 1000 MG PO BID, TAB TAKES 2 (500 MG) TABLETS / LAST FILLED 06/21/17 #120 Pioglitazone HCl (Actos) 45 Mg Tablet 45 MG PO DAILY, TAB Pregabalin (Lyrica) 150 Mg Capsule 150 MG PO TID, CAP Tadalafil (Cialis) 5 Mg Tablet 5 MG PO DAILY, TAB Tamsulosin HCl (Tamsulosin HCl) 0.4 Mg Cap.er.24h 0.4 MG PO 1200, CAP LAST FILLED 07/28/17 #30 Discontinued Medications: Sulfamethoxazole/Trimethoprim (Sulfamethoxazole-Tmp Ds Tablet) 1 Each Tablet 1 TAB PO BID, TAB FILLED 09/01/17 #20 FOR A 10 DAY THERAPY Patient Instructions Patient Instructions -take medications as instructed -keep all follow up appointments -keep wound clean and dry Goal/Follow Up Appt: 09/09/17 at 3:20 pm with Vanessa Herndon APRN Return to The Hospital For: chest pain or pressure, shortness of breath, nausea or vomiting that makes you unable to keep down clear liquids or ice chips for 12 hours or more, temp >101 that is unrelieved by tylenol or ibuprofen, pain unrelieved by prescribed medications, if directed by distribution district supervisor provider, or for any emergent complaints or concerns Activity & Diet Discharge Diet: ADA Diet Activity as Tolerated: Yes Copy Copies To 1: [facility]/KAITLYNN CARCAMO DO Sep 06, 2017 15:57
--- NOTE | 2017-09-06 16:03 | Discharge Inst-Simple/Standard ---
Discharge Inst-Standard Discharge Medications New, Converted or Re-Newed RX: RX on Chart (Keflex 500mg QID ) Patient Instructions/Follow Up Plan of Care/Instructions/FU: Dialy dressing changes with dry steril dressing keep wound dry and do not get wet Stay off work and limit weight bearing until released by Physician. Follow up with Dr. Cohen in [facility] next week. Activity as Tolerated: No (Limit weight bearing. Do not return to work until released by physician) Discharge Diet: Regular Diet Return to The Hospital For: Fever Increase redness around wound Increase purulent drainage ZEN GARZA Sep 06, 2017 16:03
[2017-09-06 16:36] VITALS: BP 166/85
--- NOTE | 2017-09-08 07:27 | Discharge Summary ---
Diagnosis/Chief Complaint Date of Admission Sep 02, 2017 at 10:45 pm Date of Discharge Sep 06, 2017 at 4:35 pm Discharge Date: Sep 06, 2017 Admission Diagnosis Admission Diagnosis septic left knee prepatellar bursitis Discharge Diagnosis septic left knee prepatellar bursitis Reason Hospital Visit Reason for Visit: left knee pain Discharge Summary Name of Procedure Performed: Incision and drainage left prepatellar bursa Discharge Physical Examination Allergies: Coded Allergies: No Known Drug Allergies (Unverified , 08/25/10) Vitals & I&Os Vital Signs Date Time Temp Pulse Resp B/P (MAP) Pulse Ox O2 Delivery O2 Flow Rate FiO2 09/06/17 16:36 97 20 166/85 96 Room Air 09/06/17 12:00 98.1 Hospital Course is a 52 yr. old male patient. He was seen in the clinic setting and had failed conservative treatment for LEFT SEPTIC PREPATELLAR BURSITIS On the Sep 02, 2017 at 10:45 pm of admission, the patient was taken to surgery and a incision and drainage of the left prepatellar bursa with bursectomy was performed without complications. Intraoperative cultures were collected and sent to the lab. Postoperatively, the patient was maintained on deep vein thrombosis prophylaxis as well as IV antibiotic. POD 2 Staph Aureus was identified and found to be sensitive to Keflex. The patient was progressed as far as his activity level with physical therapy. Labs were monitored and interventions were ordered accordingly during the hospitalization. Overall, the hospital course was uneventful. On the date of discharge the patient was doing well and was deemed stable for discharge. His vital signs were stable and he was afebrile. He was keeping oral food and fluids down without vomiting. His pain was controlled with oral medications. Discharged instructions were reviewed by myself and nursing staff prior to discharge. A medication reconciliation was performed and new prescriptions were provided. The patient and caregiver(s) verbalized understanding. Labs (last 24 hrs) Bad tablePending Labs Bad table Discharge Home Medications: Active Scripts Active Keflex (Cephalexin) 500 Mg Capsule 500 Mg PO QID 20 Days Hydrocodon-Acetaminophn 10-325 (Hydrocodone/Acetaminophen) 1 Each Tablet 1-2 Tab PO 4-6 HOURS PRN MDD 6 10 Days Reported Tamsulosin HCl 0.4 Mg Cap.er.24h 0.4 Mg PO 1200 LAST FILLED 02/08/18 #30 Alprazolam 1 Mg Tablet 1 Mg PO HS Ibuprofen 800 Mg Tablet 800 Mg PO Q8H Lyrica (Pregabalin) 150 Mg Capsule 150 Mg PO TID Actos (Pioglitazone HCl) 45 Mg Tablet 45 Mg PO DAILY Metformin HCl ER (Metformin HCl) 500 Mg Tab.er.24h 1,000 Mg PO BID TAKES 2 (500 MG) TABLETS / LAST FILLED 06/21/17 #120 Cialis (Tadalafil) 5 Mg Tablet 5 Mg PO DAILY Lantus Solostar (Insulin Glargine,Hum.rec.anlog) 100 Unit/1 Ml Insuln.pen 20-30 Units SQ BID Instructions to patient/family Please see electronic discharge instructions given to patient. ZEN GARZA Sep 08, 2017 7:27 am
== END 2017-09-06 16:35 | disposition home or self-care (01) | DRG 854 ==
LOC: EDUNIT# 18:29 → ER 18:30 → 4TH 22:45
PROVIDERS: ADMIT Family Medicine; ATTEND Family Medicine
PROC: 0S9D3ZZ Drainage of Left Knee Joint, Percutaneous Approach (ICD-10-PCS; principal; 2017-09-03)
PROC: 0S9D3ZZ Drainage of Left Knee Joint, Percutaneous Approach (ICD-10-PCS; 2017-09-04)
PROC: 0M9P00Z Drainage of Left Knee Bursa and Ligament with Drainage Device, Open Approach (ICD-10-PCS; 2017-09-04)
DX: A41.9 Sepsis, unspecified organism (principal); L03.116 Cellulitis of left lower limb; R03.0 Elevated blood-pressure reading, without diagnosis of hypertension; E11.65 Type 2 diabetes mellitus with hyperglycemia; Z79.4 Long term (current) use of insulin; F41.9 Anxiety disorder, unspecified; E78.5 Hyperlipidemia, unspecified; M54.5 Low back pain; G89.29 Other chronic pain; F17.210 Nicotine dependence, cigarettes, uncomplicated; S81.032A Puncture wound without foreign body, left knee, initial encounter; J44.9 Chronic obstructive pulmonary disease, unspecified; Z86.010 Personal history of colon polyps; M25.462 Effusion, left knee; M70.42 Prepatellar bursitis, left knee; D72.829 Elevated white blood cell count, unspecified
CPT/HCPCS: 36415; 71045; 73562; 76881; 80048; 80053; 80202; 81000; 82962; 83605; 83735; 85007; 85025; 85027; 85610; 85730; 86141; 87040; 87070; 87075; 87077; 87186; 87205; 89051; 89060; 94640; 96361; 96365; 96375

== ENCOUNTER 2018-12-07 13:07 | Emergency (ER) | payer SELFPAY ==
[~2018-12-07] VITALS: Ht 160 cm; Wt 73.5 kg
[~2018-12-07 13:07] MED LIST changes: +ALPR1TAB7; +ALPR1TAB7 PO; +ATOR40TA70 PO; +CEPH-507 PO; +INSU100I10 SQ; +METF500T8 PO; +PIOG45TA7 PO; +SULF-222 PO; +TADA5TAB2 PO; +TAMS0.4C2 PO
[2018-12-07] MEDS: NS IV 1000 ML 1,000 ML IV SCH ×2 (13:14→13:15)
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
--- OUTSIDE RECORDS SUMMARY | 2018-12-07 13:14 | XMS REPORT ---
Author Author SARAH GOLDMAN Organization [facility] Address [address] [place] [address] Care Team Providers Care E Mail System Administrator Name Role Phone SARAH GOLDMAN Unavailable PROBLEMS Type Condition ICD9-CM Code FXU17-US Code Onset Dates Condition Status SNOMED Code Problem Anxiety F41.9 Active 12395699 Problem Benign prostatic hyperplasia with lower urinary tract symptoms, unspecified morphology N40.1 Active 244083642 Problem 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 G89.29 Active 18988772 Problem Hypertriglyceridemia E78.1 Active 305624401 Problem Type 2 diabetes mellitus with unspecified complications E11.8 Active 40288719 Problem Type 2 diabetes mellitus with hyperglycemia E11.65 Active 93441795 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 Active 219788452 Problem Hypoglycemia E16.2 Active 105445585 Problem Periodontitis K05.30 Active 44697914 Problem Neuropathy G62.9 Active 001642249 Problem Primary insomnia F51.01 Active 5023841 ALLERGIES No Information ENCOUNTERS Encounter Location Date Diagnosis [place] [id number] [place] [address] May, [place] [address] [place] [id number] [place] [address] May, [place] [address] [place] [id number] [place] [address] Apr, Hypertriglyceridemia E78.1 [place] [address] [id number] [place] [address] Apr, [place] [address] [id number] [place] [address] Apr, Type 2 diabetes mellitus with hyperglycemia E11.65 ; Benign prostatic hyperplasia with lower urinary tract symptoms, unspecified morphology N40.1 ; BMI 40.0-44.9, adult Z68.41 and Hypertriglyceridemia E78.1 [facility] [id number] [place] [address] Apr, [facility] [id number] [place] [address] Mar, [facility] [id number] [place] [address] Mar, [facility] [id number] [place] [address] Feb, [facility] [id number] [place] [address] Feb, Neuropathy G62.9 [facility] [id number] [place] [address] Jan, Neuropathy G62.9 [facility] [id number] [place] [address] Jan, [facility] [id number] [place] [address] Jan, [facility] [id number] [place] [address] Jan, Increased urinary frequency R35.0 ; Glucosuria R81 ; nursing home 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 and Type 2 diabetes mellitus with hyperglycemia E11.65 [facility] [address] [place] [id number] [place] [address] Dec, Hypertriglyceridemia E78.1 [facility] [id number] [place] [address] Dec, [facility] [address] [id number] [place] [address] Nov, [facility] [id number] [place] [address] Nov, Hypertriglyceridemia E78.1 and Benign prostatic hyperplasia with lower urinary tract symptoms, unspecified morphology N40.1 [facility] [address] [address] Nov, Therapeutic drug monitoring Z51.81 ; Hypertriglyceridemia E78.1 ; Type 2 diabetes mellitus with unspecified complications E11.8 ; Tobacco abuse Z72.0 ; Chronic prescription opiate use Z79.891 and Chronically on benzodiazepine therapy Z79.899 [place] [address] [place] [id number] [place] [address] October, Neuropathy G62.9 [facility] [id number] [place] [address] October, Neuropathy G62.9 [place] [address] [place] [id number] [place] [address] October, [place] [id number] [place] [address] Sep, [place] [address] [place] [id number] [place] [address] Sep, Anemia, unspecified type D64.9 [facility] [address] [place], [place] [id number] [place] [address] Sep, Anemia, unspecified type D64.9 [place] [id number] [place] [address] Aug, [place] [address] [place] [address] Aug, Cellulitis of left lower extremity L03.116 [facility] [id number] [place] [address] Aug, Cellulitis of left knee L03.116 [facility] [id number] [place] [address] Aug, Cellulitis of left knee L03.116 [facility] [id number] [place] [address] Aug, Hypertriglyceridemia E78.1 [facility] [address] [address] Aug, [facility] [address] [place] [id number] [place] [address] Jul, Hypertriglyceridemia E78.1 [facility] [address] [place] [id number] [place] [address] Jul, Benign prostatic hyperplasia with lower urinary tract symptoms, unspecified morphology N40.1 [facility] [address] [place] [id number] [place] [address] Jul, [facility] [address] [place] [id number] [place] [address] Jun, [place] [address] [place] [id number] [place] [address] Jun, Hypertriglyceridemia E78.1 [place] [address] [place] [id number] [place] [address] Jun, Type 2 diabetes mellitus with unspecified complications E11.8 ; Encounter for immunization Z23 ; Neuropathy G62.9 ; 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 G89.29 and nursing home 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 [place] [id number] [place] [address] Jun, [place] [address] [place] [id number] [place] [address] May, [facility] [address] [place] [id number] [place] [address] Apr, Benign prostatic hyperplasia with lower urinary tract symptoms, unspecified morphology N40.1 [place] [address] [place] [id number] [place] [address] Apr, [place] [address] [place] [id number] [place] [address] 13 Mar, 2017 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 G89.29 ; Anxiety F41.9 and Neuropathy G62.9 [place] [address] [place] [id number] [place] [address] 09 Mar, 2017 Type 2 diabetes mellitus with unspecified complications E11.8 and 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 G89.29 [facility] [address] [place] [id number] [place] [address] 29 Feb, 2017 Neuropathy G62.9 [facility] [address] [place] [id number] [place] [address] 15 Feb, 2017 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 G89.29 and Anxiety F41.9 [facility] [address] [place] [id number] [place] [address] Jan, [place] [address] [address] Jan, 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 G89.29 and Anxiety F41.9 [place] [address] [place] [id number] [place] [address] Dec, [facility] [address] [place] [id number] [place] [address] Dec, 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 G89.29 and Anxiety F41.9 [place] [address] [place] [id number] [place] [address] Dec, [place] [address] [place] [id number] [place] [address] Dec, Primary insomnia F51.01 and Neuropathy G62.9 [facility] [address] [place] [id number] [place] [address] Nov, Anxiety F41.9 and 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 G89.29 [facility] [address] [place] [id number] [place] [address] Nov, Type 2 diabetes mellitus with unspecified complications E11.8 ; Neuropathy G62.9 and Primary insomnia F51.01 [facility] [address] [place] [id number] [place] [address] October, Anxiety F41.9 and 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 G89.29 [place] [address] [place] [id number] [place] [address] October, 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 G89.29 ; Type 2 diabetes mellitus with unspecified complications E11.8 and Hypoglycemia E16.2 [place] [address] [place] [id number] [place] [address] Sep, 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 G89.29 and Anxiety F41.9 [place] [address] [place] [id number] [place] [address] Sep, [place] [address] [address] Aug, 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 G89.29 and Anxiety F41.9 [place] [address] [place] [id number] [place] [address] Aug, Rash R21 and Pain of right hip joint M25.551 [place] [address] [place] [id number] [place] [address] Aug, [place] [address] [place] [id number] [place] [address] Aug, [place] [address] [place] [id number] [place] [address] Aug, 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 G89.29 and Anxiety F41.9 [place] [address] [place] [id number] [place] [address] Aug, Type 2 diabetes mellitus with unspecified complications E11.8 [place] [address] [place] [id number] [place] [address] Jul, [place] [address] [address] 16 Jul, 2016 Bronchitis J40 and Non-intractable vomiting, presence of nausea not specified, unspecified vomiting type R11.10 [place] [address] [place] [id number] [place] [address] Jul, [facility] [id number] [place] [address] Jul, 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 G89.29 and Anxiety F41.9 [facility] [address] [place] [id number] [place] [address] Jul, Type 2 diabetes mellitus with unspecified complications E11.8 [facility] [address] [address] Jun, Type 2 diabetes mellitus with unspecified complications E11.8 [facility] [address] [place] [id number] [place] [phone] Jun, Dental caries K02.9 [place] [address] [place] [id number] [place] [address] Jun, [facility] [address] [place] [id number] [place] [phone] Jun, Dental examination Z01.20 [facility] [address] [place] [address] [id number] [place] [address] Jun, Right corneal abrasion, initial encounter S05.01XA [place] [address] [place] [id number] [place] [address] Jun, [place] [address] [place] [id number] [place] [address] Jun, Dental examination Z01.20 [facility] [address] [place] [id number] [place] [address] Jun, [facility] [address] [place] [id number] [place] [address] Jun, Perforated ear drum, right H72.91 ; Tooth pain K08.89 ; Type 2 diabetes mellitus with unspecified complications E11.8 and 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 G89.29 [facility] [address] [place] [id number] [place] [address] Jun, [place] [address] [place] [id number] [place] [address] Jun, 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 G89.29 and Anxiety F41.9 [place] [address] [place] [id number] [place] [address] Jun, [place] [address] [place] [id number] [place] [address] May, Type 2 diabetes mellitus with unspecified complications E11.8 ; Benign prostatic hyperplasia with lower urinary tract symptoms, unspecified morphology N40.1 and 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 G89.29 [place] [address] [place] [id number] [place] [address] May, 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 G89.29 and Anxiety F41.9 [place] [address] [place] [id number] [place] [address] Apr, 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 G89.29 and Anxiety F41.9 [place] [address] [place] [id number] [place] [address] Mar, [place] [address] [place] [id number] [place] [address] Mar, Anxiety F41.9 and 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 G89.29 [place] [address] [place] [id number] [place] [address] Mar, 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 G89.29 and 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 Z79.891 [place] [address] [place] [id number] [place] [address] Mar, 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 G89.29 ; nursing home 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 Z79.891 and Anxiety F41.9 [place] [address] [place] [id number] [place] [address] 30 Feb, 2016 Bronchitis J40 [place] [address] [place] [id number] [place] [address] 19 Feb, 2016 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 G89.29 [place] [address] [place] [id number] [place] [address] Feb, Type 2 diabetes mellitus with unspecified complications E11.8 [place] [address] [place] [id number] [place] [address] Jan, Anxiety F41.9 [place] [address] [place] [id number] [place] [address] Jan, [place] [address] [place] [id number] [place] [address] Jan, [place] [address] [place] [id number] [place] [address] Jan, Type 2 diabetes mellitus with unspecified complications E11.8 and 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 G89.29 [place] [address] [place] [id number] [place] [address] Jan, [place] [address] [address] Jan, Dehydration E86.0 and Type 2 diabetes mellitus with unspecified complications E11.8 [place] [address] [place] [id number] [place] [address] Jan, [place] [address] [place] [id number] [place] [address] Dec, Anxiety F41.9 [place] [address] [place] [id number] [place] [address] Dec, Encounter to establish care Z76.89 ; Type 2 diabetes mellitus with unspecified complications E11.8 ; 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 ; Dorsalgia, unspecified M54.9 ; 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 G89.29 ; Insomnia, unspecified type G47.00 ; Neuropathy G62.9 and Bilateral tinnitus H93.13 [place] [address] [place] [id number] [place] [address] Dec, IMMUNIZATIONS No Known Immunizations SOCIAL HISTORY Never Assessed REASON FOR VISIT Controlled Med Refill 06/14/18 PLAN OF CARE VITAL SIGNS MEDICATIONS Medication Instructions Dosage Frequency Start Date End Date Duration Status Hydrocodone-Acetaminophen 10-325 MG Orally 3 times a day 1 tablet 8h 22 May, 2018 28 days Active Alprazolam 1 MG Orally Once a day 1 tablet at bedtime 24h 28 days Active RESULTS No Results PROCEDURES No Known procedures INSTRUCTIONS MEDICATIONS ADMINISTERED No Known Medications MEDICAL (GENERAL) HISTORY Type Description Date Medical History Type 2 diabetes mellitus without complications Medical History nursing home (current) use of insulin Medical History Other [...]
--- OUTSIDE RECORDS SUMMARY | 2018-12-07 13:14 | XMS REPORT ---
Author Author SARAH GOLDMAN Organization [facility] Address [address] [place] [address] Care Team Providers Care Tnt Line Supervisor Name Role Phone SARAH GOLDMAN Unavailable PROBLEMS Type Condition ICD9-CM Code ZFT82-RO Code Onset Dates Condition Status SNOMED Code Problem Anxiety F41.9 Active 91921725 Problem Benign prostatic hyperplasia with lower urinary tract symptoms, unspecified morphology N40.1 Active 162042515 Problem 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 G89.29 Active 50754026 Problem Hypertriglyceridemia E78.1 Active 029575140 Problem Type 2 diabetes mellitus with unspecified complications E11.8 Active 81653493 Problem Type 2 diabetes mellitus with hyperglycemia E11.65 Active 91271041 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 Active 339617216 Problem Hypoglycemia E16.2 Active 265386396 Problem Periodontitis K05.30 Active 04662759 Problem Neuropathy G62.9 Active 304515751 Problem Primary insomnia F51.01 Active 3926764 ALLERGIES No Information ENCOUNTERS Encounter Location Date Diagnosis [place] [id number] [place] [address] May, [place] [id number] [place] [address] Apr, Hypertriglyceridemia E78.1 [facility] [id number] [place] [address] Apr, [facility] [address] [address] Apr, Type 2 diabetes mellitus with hyperglycemia E11.65 ; Benign prostatic hyperplasia with lower urinary tract symptoms, unspecified morphology N40.1 ; BMI 40.0-44.9, adult Z68.41 and Hypertriglyceridemia E78.1 [place] [address] [address] Apr, [facility] [address] [place] [address] Mar, [facility] [address] [place] [address] Mar, [facility] [id number] [place] [address] Feb, [facility] [id number] [place] [phone] Feb, Neuropathy G62.9 [facility] [id number] [place] [address] Jan, Neuropathy G62.9 [facility] [id number] [place] [address] Jan, [facility] [id number] [place] [address] Jan, [facility] [address] [place] [address] Jan, Increased urinary frequency R35.0 ; Glucosuria R81 ; intermediate 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 and Type 2 diabetes mellitus with hyperglycemia E11.65 [facility] [address] [place] [address] Dec, Hypertriglyceridemia E78.1 [facility] [id number] [place] [address] Dec, [facility] [address] [place] [address] Nov, [facility] [id number] [place] [address] Nov, Hypertriglyceridemia E78.1 and Benign prostatic hyperplasia with lower urinary tract symptoms, unspecified morphology N40.1 [facility] [address] [place] [address] Nov, Therapeutic drug monitoring Z51.81 ; Hypertriglyceridemia E78.1 ; Type 2 diabetes mellitus with unspecified complications E11.8 ; Tobacco abuse Z72.0 ; Chronic prescription opiate use Z79.891 and Chronically on benzodiazepine therapy Z79.899 [facility] [address] [address] October, Neuropathy G62.9 [facility] [address] [place] [address] October, Neuropathy G62.9 [facility] [address] [place] [address] October, [facility] [address] [place] [address] Sep, [facility] [address] [place] [address] Sep, Anemia, unspecified type D64.9 [facility] [address] [place] [id number] [address] Sep, Anemia, unspecified type D64.9 [facility] [address] [address] Aug, [facility] [address] [place] [address] Aug, Cellulitis of left lower extremity L03.116 [facility] [address] [place] [address] Aug, Cellulitis of left knee L03.116 [facility] [address] [address] 15 Aug, 2017 Cellulitis of left knee L03.116 [facility] [address] [address] Aug, Hypertriglyceridemia E78.1 [facility] [address] [place] [address] Aug, [facility] [id number] [place] [address] Jul, Hypertriglyceridemia E78.1 [facility] [id number] [place] [address] 08 Jul, 2017 Benign prostatic hyperplasia with lower urinary tract symptoms, unspecified morphology N40.1 [facility] [address] [address] Jul, [facility] [id number] [place] [address] Jun, [facility] [address] [address] Jun, Hypertriglyceridemia E78.1 [place] [id number] [place] [address] Jun, Type 2 diabetes mellitus with unspecified complications E11.8 ; Encounter for immunization Z23 ; Neuropathy G62.9 ; 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 G89.29 and intermediate 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 [place] [id number] [place] [address] Jun, [facility] [id number] [place] [address] May, [place] [id number] [place] [address] Apr, Benign prostatic hyperplasia with lower urinary tract symptoms, unspecified morphology N40.1 [facility] [id number] [place] [address] Apr, [facility] [id number] [place] [address] 13 Mar, 2017 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 G89.29 ; Anxiety F41.9 and Neuropathy G62.9 [facility] [id number] [place] [address] 09 Mar, 2017 Type 2 diabetes mellitus with unspecified complications E11.8 and 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 G89.29 [facility] [id number] [place] [address] 29 Feb, 2017 Neuropathy G62.9 [facility] [id number] [place] [address] 15 Feb, 2017 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 G89.29 and Anxiety F41.9 [facility] [address] [address] Jan, [facility] [id number] [place] [address] Jan, 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 G89.29 and Anxiety F41.9 [facility] [id number] [place] [address] Dec, [facility] [id number] [place] [address] Dec, 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 G89.29 and Anxiety F41.9 [facility] [id number] [place] [address] Dec, [facility] [id number] [place] [address] Dec, Primary insomnia F51.01 and Neuropathy G62.9 [facility] [id number] [place] [address] Nov, Anxiety F41.9 and 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 G89.29 [facility] [id number] [place] [address] Nov, Type 2 diabetes mellitus with unspecified complications E11.8 ; Neuropathy G62.9 and Primary insomnia F51.01 [facility] [id number] [place] [address] October, Anxiety F41.9 and 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 G89.29 [facility] [id number] [place] [address] October, 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 G89.29 ; Type 2 diabetes mellitus with unspecified complications E11.8 and Hypoglycemia E16.2 [place] [id number] [place] [address] Sep, 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 G89.29 and Anxiety F41.9 [place] [id number] [place] [address] Sep, [place] [address] [address] Aug, 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 G89.29 and Anxiety F41.9 [place] [address] [address] Aug, Rash R21 and Pain of right hip joint M25.551 [place] [id number] [place] [address] Aug, [place] [id number] [place] [address] Aug, [place] [id number] [place] [address] Aug, 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 G89.29 and Anxiety F41.9 [place] [id number] [place] [address] Aug, Type 2 diabetes mellitus with unspecified complications E11.8 [place] [id number] [place] [address] Jul, [place] [id number] [place] [address] Jul, Bronchitis J40 and Non-intractable vomiting, presence of nausea not specified, unspecified vomiting type R11.10 [place] [id number] [place] [address] Jul, [place] [id number] [place] [address] Jul, 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 G89.29 and Anxiety F41.9 [facility] [id number] [place] [address] Jul, Type 2 diabetes mellitus with unspecified complications E11.8 [facility] [id number] [place] [address] Jun, Type 2 diabetes mellitus with unspecified complications E11.8 [facility] [address] [id number] Jun, Dental caries K02.9 [facility] [address] [address] Jun, [facility] [address] [id number] Jun, Dental examination Z01.20 [facility] [address] [address] Jun, Right corneal abrasion, initial encounter S05.01XA [facility] [id number] [place] [address] Jun, [facility] [address] [address] Jun, Dental examination Z01.20 [facility] [id number] [place] [address] Jun, [facility] [address] [address] Jun, Perforated ear drum, right H72.91 ; Tooth pain K08.89 ; Type 2 diabetes mellitus with unspecified complications E11.8 and 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 G89.29 [facility] [id number] [place] [address] Jun, [facility] [id number] [place] [address] Jun, 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 G89.29 and Anxiety F41.9 [place] [id number] [place] [address] Jun, [facility] [address] [address] 15 May, 2016 Type 2 diabetes mellitus with unspecified complications E11.8 ; Benign prostatic hyperplasia with lower urinary tract symptoms, unspecified morphology N40.1 and 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 G89.29 [place] [address] [address] 09 May, 2016 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 G89.29 and Anxiety F41.9 [place] [address] [address] Apr, 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 G89.29 and Anxiety F41.9 [place] [address] [address] Mar, [place] [address] [address] Mar, Anxiety F41.9 and 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 G89.29 [place] [id number] [place] [address] 14 Mar, 2016 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 G89.29 and intermediate 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 Z79.891 [place] [address] [place] [address] Mar, 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 G89.29 ; intermediate 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 Z79.891 and Anxiety F41.9 [place] [address] [place] [address] 30 Feb, 2016 Bronchitis J40 [place] [address] [address] 19 Feb, 2016 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 G89.29 [place] [id number] [place] [address] 15 Feb, 2016 Type 2 diabetes mellitus with unspecified complications E11.8 [place] [address] [place] [address] Jan, Anxiety F41.9 [place] [id number] [place] [address] Jan, [place] [address] [place] [address] Jan, [place] [address] [place] [address] Jan, Type 2 diabetes mellitus with unspecified complications E11.8 and 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 G89.29 [place] [address] [place] [address] Jan, [place] [address] [place] [address] Jan, Dehydration E86.0 and Type 2 diabetes mellitus with unspecified complications E11.8 [place] [address] [place] [address] Jan, [place] [address] [place] [address] Dec, Anxiety F41.9 [place] [address] [place] [address] Dec, Encounter to establish care Z76.89 ; Type 2 diabetes mellitus with unspecified complications E11.8 ; 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 ; Dorsalgia, unspecified M54.9 ; 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 G89.29 ; Insomnia, unspecified type G47.00 ; Neuropathy G62.9 and Bilateral tinnitus H93.13 [place] [address] [place] [address] Dec, IMMUNIZATIONS No Known Immunizations SOCIAL HISTORY Never Assessed REASON FOR VISIT diabetic check 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 PLAN OF CARE Activity Details Follow Up 3 Months Reason:DM and 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 VITAL SIGNS Height 53 in 2018-05-15 Weight 160.3 lbs 2018-05-15 Temperature 97.8 degrees Fahrenheit 2018-05-15 Heart Rate 88 bpm 2018-05-15 Respiratory Rate 20 2018-05-15 BMI 40.12 kg/m2 2018-05-15 Blood pressure systolic 128 mmHg 2018-05-15 Blood pressure diastolic 62 mmHg 2018-05-15 MEDICATIONS Medication Instructions Dosage Frequency Start Date End Date Duration Status Insulin NPH Isophane & Regular (70-30) 100 UNIT/ML Subcutaneous 2 times a day 25u 12h Jan, Active Glucocard Expression Monitor w/Device as directed Jan, Active Glucocard Expression Test - In Vitro 2 times a day as directed 12h Jan, Active Simvastatin 40 mg Orally Once a day 1 tablet in the evening 24h Nov, Active Actos 45 MG Orally Once a day 1 tablet 24h Mar, Not-Taking [place] 3 1000 MG Orally Once a day 3 capsules 24h Aug, 30 days Active Lyrica 150 MG Orally 3 times a day 1 capsule 8h 15 May, 2016 28 days Active Ibuprofen 800 MG TAKE ONE TABLET BY MOUTH THREE TIMES DAILY 30 Active Alprazolam 1 MG Orally Once a day 1 tablet at bedtime 24h 14 days Active MetFORMIN HCl ER 500 MG Orally 2 times a day 2 tablets with meals 12h 30 days Active Hydrocodone-Acetaminophen 10-325 MG Orally 3 times a day 1 tablet 8h 11 Apr, 2018 14 days Active Tamsulosin HCl 0.4 MG Orally Once a day 1 capsule 24h 30 days Active RESULTS No Results PROCEDURES Procedure Date Ordered Result Body Site GLYCATED HEMOGLOBIN TEST May 15, 2018 LIPID PANEL May 15, 2018 VENIPUNCT, ROUTINE* May 15, 2018 INSTRUCTIONS MEDICATIONS ADMINISTERED No Known Medications MEDICAL (GENERAL) HISTORY Type Description Date Medical History Type 2 diabetes mellitus without complications Medical History intermediate (current) use of insulin Medical History Other [...]
[2018-12-07] MEDS ORDERED: fentaNYL INJECTION 100 MCG/2 ML AMP ONE (13:15)
--- OUTSIDE RECORDS SUMMARY | 2018-12-07 13:15 | XMS REPORT ---
Author Author SARAH GOLDMAN [facility] Address [address] [place] [address] Care Team Providers Care Habitat Biologist Name Role Phone SARAH GOLDMAN Unavailable PROBLEMS Type Condition ICD9-CM Code XGA27-QI Code Onset Dates Condition Status SNOMED Code Problem Anxiety F41.9 Active 49100848 Problem Benign prostatic hyperplasia with lower urinary tract symptoms, unspecified morphology N40.1 Active 504933781 Problem 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 G89.29 Active 76947240 Problem Hypertriglyceridemia E78.1 Active 518176854 Problem Type 2 diabetes mellitus with unspecified complications E11.8 Active 46789707 Problem Type 2 diabetes mellitus with hyperglycemia E11.65 Active 38553640 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 Active 168291963 Problem Hypoglycemia E16.2 Active 485173339 Problem Periodontitis K05.30 Active 15496787 Problem Neuropathy G62.9 Active 442142829 Problem Primary insomnia F51.01 Active 5837427 ALLERGIES No Information ENCOUNTERS Encounter Location Date Diagnosis [facility] [id number] [place] [address] Apr, [facility] [id number] [place] [phone] Apr, [facility] [id number] [place] [address] Mar, [facility] [id number] [place] [address] Mar, [facility] [id number] [place] [address] Feb, [facility] [id number] [place] [address] 14 Feb, 2018 Neuropathy G62.9 [facility] [facility] [id number] [place] [address] Jan, Neuropathy G62.9 [facility] [id number] [place] [address] Jan, [facility] [id number] [place] [address] Jan, [facility] [id number] [place] [address] Jan, Increased urinary frequency R35.0 ; Glucosuria R81 ; correction 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 and Type 2 diabetes mellitus with hyperglycemia E11.65 [facility] [id number] [place] [address] Dec, Hypertriglyceridemia E78.1 [facility] [id number] [place] [address] Dec, [facility] [id number] [place] [address] Nov, [facility] [id number] [place] [address] Nov, Hypertriglyceridemia E78.1 and Benign prostatic hyperplasia with lower urinary tract symptoms, unspecified morphology N40.1 [facility] [id number] [place] [address] Nov, Therapeutic drug monitoring Z51.81 ; Hypertriglyceridemia E78.1 ; Type 2 diabetes mellitus with unspecified complications E11.8 ; Tobacco abuse Z72.0 ; Chronic prescription opiate use Z79.891 and Chronically on benzodiazepine therapy Z79.899 [facility] [id number] [place] [address] October, Neuropathy G62.9 [facility] [id number] [place] [address] October, Neuropathy G62.9 [facility] [id number] [place] [address] October, [facility] [address] [address] Sep, [facility] [id number] [place] [address] Sep, Anemia, unspecified type D64.9 [facility] [address] [id number] [address] Sep, Anemia, unspecified type D64.9 [facility] [id number] [place] [address] Aug, [facility] [id number] [place] [address] Aug, Cellulitis of left lower extremity L03.[address] [facility] [id number] [place] [address] Aug, Cellulitis of left knee L03.[address] [facility] [id number] [place] [address] Aug, Cellulitis of left knee L03.116 [facility] [id number] [place] [address] Aug, Hypertriglyceridemia E78.1 [facility] [address] [address] Aug, [facility] [id number] [place] [address] Jul, Hypertriglyceridemia E78.1 [facility] [id number] [place] [address] Jul, Benign prostatic hyperplasia with lower urinary tract symptoms, unspecified morphology N40.1 [facility] [address] [address] Jul, [facility] [id number] [place] [address] Jun, [facility] [id number] [place] [address] Jun, Hypertriglyceridemia E78.1 [facility] [address] [address] 10 Jun, 2017 Type 2 diabetes mellitus with unspecified complications E11.8 ; Encounter for immunization Z23 ; Neuropathy G62.9 ; 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 G89.29 and correction 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 [place] [address] [address] Jun, [place] [address] [address] May, [place] [facility] [address] [address] Apr, Benign prostatic hyperplasia with lower urinary tract symptoms, unspecified morphology N40.1 [facility] [id number] [place] [address] Apr, [facility] [address] [address] Mar, 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 G89.29 ; Anxiety F41.9 and Neuropathy G62.9 [facility] [id number] [place] [address] 09 Mar, 2017 Type 2 diabetes mellitus with unspecified complications E11.8 and 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 G89.29 [facility] [id number] [place] [address] Feb, Neuropathy G62.9 [place] [address] [address] 15 Feb, 2017 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 G89.29 and Anxiety F41.9 [facility] [id number] [place] [address] Jan, [facility] [address] [address] Jan, 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 G89.29 and Anxiety F41.9 [facility] [id number] [place] [address] Dec, [facility] [id number] [place] [address] Dec, 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 G89.29 and Anxiety F41.9 [facility] [id number] [place] [address] Dec, [facility] [id number] [place] [address] Dec, Primary insomnia F51.01 and Neuropathy G62.9 [facility] [id number] [place] [address] Nov, Anxiety F41.9 and 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 G89.29 [facility] [id number] [place] [address] Nov, Type 2 diabetes mellitus with unspecified complications E11.8 ; Neuropathy G62.9 and Primary insomnia F51.01 [facility] [id number] [place] [address] October, Anxiety F41.9 and 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 G89.29 [facility] [id number] [place] [address] October, 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 G89.29 ; Type 2 diabetes mellitus with unspecified complications E11.8 and Hypoglycemia E16.2 [facility] [id number] [place] [address] Sep, 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 G89.29 and Anxiety F41.9 [facility] [id number] [place] [address] Sep, [facility] [id number] [place] [address] Aug, 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 G89.29 and Anxiety F41.9 [facility] [id number] [place] [address] Aug, Rash R21 and Pain of right hip joint M25.551 [facility] [id number] [place] [address] Aug, [place] [facility] [address] [address] Aug, [place] [address] [address] Aug, 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 G89.29 and Anxiety F41.9 [place] [address] [address] Aug, Type 2 diabetes mellitus with unspecified complications E11.8 [facility] [id number] [place] [address] Jul, [place] [facility] [address] [address] Jul, Bronchitis J40 and Non-intractable vomiting, presence of nausea not specified, unspecified vomiting type R11.10 [facility] [id number] [place] [address] Jul, [facility] [id number] [place] [address] Jul, 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 G89.29 and Anxiety F41.9 [facility] [id number] [place] [address] Jul, Type 2 diabetes mellitus with unspecified complications E11.8 [facility] [id number] [place] [address] Jun, Type 2 diabetes mellitus with unspecified complications E11.8 [facility] [id number] [place] [id number] Jun, Dental caries K02.9 [place] [address] [address] Jun, [facility] [address] [id number] Jun, Dental examination Z01.20 [facility] [address], [place] [address] Jun, Right corneal abrasion, initial encounter S05.01XA [facility] [id number] [place] [address] Jun, [facility] [id number] [place] [address] Jun, Dental examination Z01.20 [facility] [id number] [place] [address] Jun, [facility] [id number] [place] [address] Jun, Perforated ear drum, right H72.91 ; Tooth pain K08.89 ; Type 2 diabetes mellitus with unspecified complications E11.8 and 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 G89.29 [facility] [id number] [place] [address] Jun, [facility] [id number] [place] [address] Jun, 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 G89.29 and Anxiety F41.9 [facility] [id number] [place] [address] Jun, [facility] [address] [place] [address] May, Type 2 diabetes mellitus with unspecified complications E11.8 ; Benign prostatic hyperplasia with lower urinary tract symptoms, unspecified morphology N40.1 and 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 G89.29 [facility] [address] [place] [address] May, 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 G89.29 and Anxiety F41.9 [place] [address] [address] 14 Apr, 2016 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 G89.29 and Anxiety F41.9 [facility] [id number] [place] [address] 28 Mar, 2016 [facility] [id number] [place] [address] 17 Mar, 2016 Anxiety F41.9 and 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 G89.29 [facility] [id number] [place] [address] 14 Mar, 2016 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 G89.29 and correction 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 Z79.891 [facility] [id number] [place] [address] 14 Mar, 2016 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 G89.29 ; insurance underwriter sales 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 Z79.891 and Anxiety F41.9 [facility] [id number] [place] [address] 30 Feb, 2016 Bronchitis J40 [facility] [id number] [place] [address] 19 Feb, 2016 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 G89.29 [facility] [address] [place] [address] 15 Feb, 2016 Type 2 diabetes mellitus with unspecified complications E11.8 [facility] [id number] [place] [address] Jan, Anxiety F41.9 [facility] [id number] [place] [address] Jan, [facility] [id number] [place] [address] Jan, [facility] [id number] [place] [address] Jan, Type 2 diabetes mellitus with unspecified complications E11.8 and 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 G89.29 [place] [place] [address] [place] [address] Jan, [facility] [id number] [place] [address] Jan, Dehydration E86.0 and Type 2 diabetes mellitus with unspecified complications E11.8 [place] [id number] [place] [address] Jan, [facility] [id number] [place] [address] Dec, Anxiety F41.[address] [address] Dec, Encounter to establish care Z76.89 ; Type 2 diabetes mellitus with unspecified complications E11.8 ; 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 ; Dorsalgia, unspecified M54.9 ; 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 G89.29 ; Insomnia, unspecified type G47.00 ; Neuropathy G62.9 and Bilateral tinnitus H93.13 [address] [place] [address] Dec, IMMUNIZATIONS No Known Immunizations SOCIAL HISTORY Never Assessed REASON FOR VISIT Controlled Med Refill 05/01/18 PLAN OF CARE VITAL SIGNS MEDICATIONS Medication Instructions Dosage Frequency Start Date End Date Duration Status Alprazolam 1 MG Orally Once a day 1 tablet at bedtime 24h 14 days Active Hydrocodone-Acetaminophen 10-325 MG Orally 3 times a day 1 tablet 8h Apr, 14 days Active RESULTS No Results PROCEDURES No Known procedures INSTRUCTIONS MEDICATIONS ADMINISTERED No Known Medications MEDICAL (GENERAL) HISTORY Type Description Date Medical History Type 2 diabetes mellitus without complications Medical History insurance 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
--- OUTSIDE RECORDS SUMMARY | 2018-12-07 13:15 | XMS REPORT ---
Author Author SARAH GOLDMAN Organization [facility] Address [address] [place] [address] Care Team Providers Care Environmental Issues Instructor Name Role Phone SARAH GOLDMAN Unavailable PROBLEMS Type Condition ICD9-CM Code [id number] Code Onset Dates Condition Status SNOMED Code Problem Anxiety F41.9 Active 74211600 Problem Benign prostatic hyperplasia with lower urinary tract symptoms, unspecified morphology N40.1 Active 467663748 Problem 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 G89.29 Active 33098606 Problem Hypertriglyceridemia E78.1 Active 154878191 Problem Type 2 diabetes mellitus with unspecified complications E11.8 Active 66686400 Problem Type 2 diabetes mellitus with hyperglycemia E11.65 Active 50460786 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 Active 365097084 Problem Hypoglycemia E16.2 Active 806336692 Problem Periodontitis K05.30 Active 01265570 Problem Neuropathy G62.9 Active 377993026 Problem Primary insomnia F51.01 Active 0216239 ALLERGIES No Information ENCOUNTERS Encounter Location Date Diagnosis [place] [id number] [place] [phone] Apr, Hypertriglyceridemia E78.1 [facility] [id number] [place] [phone] Apr, [facility] [id number] [place] [id number] Apr, Type 2 diabetes mellitus with hyperglycemia E11.65 ; Benign prostatic hyperplasia with lower urinary tract symptoms, unspecified morphology N40.1 ; BMI 40.0-44.9, adult Z68.41 and Hypertriglyceridemia E78.1 [facility] [id number] [place] [phone] Apr, [facility] [id number] [place] [phone] Mar, [facility] [address] [address] Mar, [facility] [address] [place] [phone] 27 Feb, 2018 [facility] [id number] [place] [phone] Feb, Neuropathy G62.9 [facility] [id number] [place] [phone] Jan, Neuropathy G62.9 [facility] [id number] [place] [phone] Jan, [facility] [id number] [place] [phone] Jan, [facility] [id number] [place] [address] Jan, Increased urinary frequency R35.0 ; Glucosuria R81 ; jail 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 and Type 2 diabetes mellitus with hyperglycemia E11.65 [facility] [address] [place] [phone] Dec, Hypertriglyceridemia E78.1 [facility] [address] [place] [phone] Dec, [facility] [address] [place] [phone] Nov, [facility] [address] [place] [address] Nov, Hypertriglyceridemia E78.1 and Benign prostatic hyperplasia with lower urinary tract symptoms, unspecified morphology N40.1 [facility] [address] [address] 06 Nov, 2017 Therapeutic drug monitoring Z51.81 ; Hypertriglyceridemia E78.1 ; Type 2 diabetes mellitus with unspecified complications E11.8 ; Tobacco abuse Z72.0 ; Chronic prescription opiate use Z79.891 and Chronically on benzodiazepine therapy Z79.899 [facility] [address] [place] [address] October, Neuropathy G62.9 [facility] [address] [address] October, Neuropathy G62.9 [facility] [id number] [place] [id number] October, [facility] [address] [place] [address] Sep, [facility] [id number] [place] [address] Sep, Anemia, unspecified type D64.9 [facility] [address] [place] [id number] [place] [address] Sep, Anemia, unspecified type D64.9 [facility] [address] [place] [phone] Aug, [facility] [id number] [place] [address] Aug, Cellulitis of left lower extremity L03.116 [facility] [address] [place] [address] Aug, Cellulitis of left knee L03.116 [facility] [address] [place] [id number] 15 Aug, 2017 Cellulitis of left knee L03.116 [facility] [id number] [place] [address] Aug, Hypertriglyceridemia E78.1 [facility] [address] [place] [phone] Aug, [facility] [id number] [place] [address] 16 Jul, 2017 Hypertriglyceridemia E78.1 [facility] [id number] [place] [phone] 08 Jul, 2017 Benign prostatic hyperplasia with lower urinary tract symptoms, unspecified morphology N40.1 [facility] [id number] [place] [address] 02 Jul, 2017 [facility] [address] [address] Jun, [facility] [id number] [place] [address] Jun, Hypertriglyceridemia E78.1 [place] [id number] [place] [address] Jun, Type 2 diabetes mellitus with unspecified complications E11.8 ; Encounter for immunization Z23 ; Neuropathy G62.9 ; 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 G89.29 and jail 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 [place] [id number] [place] [phone] Jun, [place] [id number] [place] [address] May, [facility] [id number] [place] [address] Apr, Benign prostatic hyperplasia with lower urinary tract symptoms, unspecified morphology N40.1 [place] [id number] [place] [address] Apr, [place] [id number] [place] [address] Mar, 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 G89.29 ; Anxiety F41.9 and Neuropathy G62.9 [facility] [id number] [place] [address] 09 Mar, 2017 Type 2 diabetes mellitus with unspecified complications E11.8 and 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 G89.29 [facility] [id number] [place] [phone] 29 Feb, 2017 Neuropathy G62.9 [facility] [id number] [place] [address] 15 Feb, 2017 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 G89.29 and Anxiety F41.9 [facility] [id number] [place] [phone] Jan, [facility] [id number] [place] [address] Jan, 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 G89.29 and Anxiety F41.9 [facility] [id number] [place] [address] Dec, [facility] [id number] [place] [address] Dec, 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 G89.29 and Anxiety F41.9 [place] [id number] [place] [address] Dec, [facility] [id number] [place] [address] Dec, Primary insomnia F51.01 and Neuropathy G62.9 [facility] [id number] [place] [address] Nov, Anxiety F41.9 and 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 G89.29 [facility] [id number] [place] [phone] Nov, Type 2 diabetes mellitus with unspecified complications E11.8 ; Neuropathy G62.9 and Primary insomnia F51.01 [facility] [id number] [place] [address] October, Anxiety F41.9 and 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 G89.29 [facility] [id number] [place] [address] October, 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 G89.29 ; Type 2 diabetes mellitus with unspecified complications E11.8 and Hypoglycemia E16.2 [facility] [id number] [place] [id number] 28 Sep, 2016 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 G89.29 and Anxiety F41.9 [facility] [id number] [place] [id number] Sep, [facility] [id number] [place] [address] Aug, 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 G89.29 and Anxiety F41.9 [facility] [id number] [place] [address] Aug, Rash R21 and Pain of right hip joint M25.551 [place] [address] [address] Aug, [facility] [address] [address] Aug, [facility] [id number] [place] [address] Aug, 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 G89.29 and Anxiety F41.9 [facility] [id number] [place] [address] Aug, Type 2 diabetes mellitus with unspecified complications E11.8 [facility] [id number] [place] [address] Jul, [facility] [id number] [place] [address] Jul, Bronchitis J40 and Non-intractable vomiting, presence of nausea not specified, unspecified vomiting type R11.10 [facility] [address] [address] Jul, [facility] [id number] [place] [address] Jul, 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 G89.29 and Anxiety F41.9 [facility] [address] [place] [address] Jul, Type 2 diabetes mellitus with unspecified complications E11.8 [facility] [address] [id number] Jun, Type 2 diabetes mellitus with unspecified complications E11.8 [facility] [id number] [place] [phone] Jun, Dental caries K02.9 [facility] [address] [address] Jun, [facility] [address] [id number] Jun, Dental examination Z01.20 [facility] [id number] [place] [address] Jun, Right corneal abrasion, initial encounter S05.01XA [facility] [id number] [place] [id number] Jun, [facility] [id number] [place] [address] Jun, Dental examination Z01.20 [place] [id number] [place] [phone] Jun, [facility] [id number] [place] [address] Jun, Perforated ear drum, right H72.91 ; Tooth pain K08.89 ; Type 2 diabetes mellitus with unspecified complications E11.8 and 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 G89.29 [facility] [id number] [place] [address] Jun, [place] [address] [address] Jun, 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 G89.29 and Anxiety F41.9 [facility] [id number] [place] [address] Jun, [facility] [id number] [place] [address] May, Type 2 diabetes mellitus with unspecified complications E11.8 ; Benign prostatic hyperplasia with lower urinary tract symptoms, unspecified morphology N40.1 and 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 G89.29 [place] [id number] [place] [id number] 09 May, 2016 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 G89.29 and Anxiety F41.9 [place] [id number] [place] [address] Apr, 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 G89.29 and Anxiety F41.9 [place] [address] [address] Mar, [place] [id number] [place] [address] Mar, Anxiety F41.9 and 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 G89.29 [place] [id number] [place] [address] 14 Mar, 2016 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 G89.29 and jail 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 Z79.891 [place] [id number] [place] [address] Mar, 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 G89.29 ; jail 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 Z79.891 and Anxiety F41.9 [place] [id number] [place] [address] 30 Feb, 2016 Bronchitis J40 [place] [id number] [place] [id number] 19 Feb, 2016 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 G89.29 [place] [id number] [place] [address] 15 Feb, 2016 Type 2 diabetes mellitus with unspecified complications E11.8 [place] [id number] [place] [address] Jan, Anxiety F41.9 [place] [address] [place] [address] Jan, [place] [id number] [place] [address] Jan, [place] [id number] [place] [phone] Jan, Type 2 diabetes mellitus with unspecified complications E11.8 and 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 G89.29 [place] [id number] [place] [phone] Jan, [place] [address] [address] Jan, Dehydration E86.0 and Type 2 diabetes mellitus with unspecified complications E11.8 [place] [id number] [place] [address] Jan, [place] [id number] [place] [phone] Dec, Anxiety F41.9 [place] [id number] [place] [address] Dec, Encounter to establish care Z76.89 ; Type 2 diabetes mellitus with unspecified complications E11.8 ; jail 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 ; Dorsalgia, unspecified M54.9 ; 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 G89.29 ; Insomnia, unspecified type G47.00 ; Neuropathy G62.9 and Bilateral tinnitus H93.13 [place] [id number] [place] [phone] Dec, IMMUNIZATIONS No Known Immunizations SOCIAL HISTORY Never Assessed REASON FOR VISIT Orders from Results PLAN OF CARE VITAL SIGNS MEDICATIONS Medication Instructions Dosage Frequency Start Date End Date Duration Status Lipitor 40 MG Orally Once a day 1 tablet 24h Apr, 30 days Active RESULTS No Results PROCEDURES No Known procedures INSTRUCTIONS MEDICATIONS ADMINISTERED No Known Medications MEDICAL (GENERAL) HISTORY Type Description Date Medical History Type 2 diabetes mellitus without complications Medical History jail (current) use of insulin Medical History Other [...]
--- OUTSIDE RECORDS SUMMARY | 2018-12-07 13:15 | XMS REPORT ---
Author Author SARAH GOLDMAN Organization [facility] Address [address] [place] [address] Care Team Providers Care Refrigerator Room Clerk Name Role Phone SARAH GOLDMAN Unavailable PROBLEMS Type Condition ICD9-CM Code [id number] Code Onset Dates Condition Status SNOMED Code Problem Anxiety F41.9 Active 11749767 Problem Benign prostatic hyperplasia with lower urinary tract symptoms, unspecified morphology N40.1 Active 333217990 Problem 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 G89.29 Active 12502151 Problem Hypertriglyceridemia E78.1 Active 667308723 Problem Type 2 diabetes mellitus with unspecified complications E11.8 Active 05649526 Problem Type 2 diabetes mellitus with hyperglycemia E11.65 Active 33838198 Problem intermediate card tender 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 Active 633299658 Problem Hypoglycemia E16.2 Active 063937888 Problem Periodontitis K05.30 Active 25490528 Problem Neuropathy G62.9 Active 909593846 Problem Primary insomnia F51.01 Active 2729184 ALLERGIES No Information ENCOUNTERS Encounter Location Date Diagnosis [place] [id number] [place] [address] Apr, Hypertriglyceridemia E78.1 [facility] [id number] [place] [address] Apr, [facility] [id number] [place] [address] Apr, Type 2 diabetes mellitus with hyperglycemia E11.65 ; Benign prostatic hyperplasia with lower urinary tract symptoms, unspecified morphology N40.1 ; BMI 40.0-44.9, adult Z68.41 and Hypertriglyceridemia E78.1 [facility] [id number] [place] [address] Apr, [facility] [id number] [place] [address] Mar, [facility] [id number] [address] Mar, [facility] [id number] [place] [address] 27 Feb, 2018 [facility] [id number] [place] [address] Feb, Neuropathy G62.9 [facility] [id number] [place] [address] Jan, Neuropathy G62.9 [facility] [id number] [place] [address] Jan, [facility] [id number] [place] [address] Jan, [facility] [id number] [place] [address] Jan, Increased urinary frequency R35.0 ; Glucosuria R81 ; longterm 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 and Type 2 diabetes mellitus with hyperglycemia E11.65 [facility] [id number] [place] [address] Dec, Hypertriglyceridemia E78.1 [facility] [id number] [place] [address] Dec, [facility] [id number] [place] [address] Nov, [facility] [id number] [place] [address] Nov, Hypertriglyceridemia E78.1 and Benign prostatic hyperplasia with lower urinary tract symptoms, unspecified morphology N40.1 [facility] [address] [address] 06 Nov, 2017 Therapeutic drug monitoring Z51.81 ; Hypertriglyceridemia E78.1 ; Type 2 diabetes mellitus with unspecified complications E11.8 ; Tobacco abuse Z72.0 ; Chronic prescription opiate use Z79.891 and Chronically on benzodiazepine therapy Z79.899 [facility] [id number] [place] [address] October, Neuropathy G62.9 [facility] [id number] [address] October, Neuropathy G62.9 [facility] [id number] [place] [address] October, [facility] [id number] [place] [address] Sep, [facility] [id number] [place] [address] Sep, Anemia, unspecified type D64.9 [facility] [address] [place], [place] [id number] [place] [address] Sep, Anemia, unspecified type D64.9 [facility] [id number] [place] [address] Aug, [facility] [id number] [place] [address] Aug, Cellulitis of left lower extremity L03.116 [facility] [id number] [place] [address] Aug, Cellulitis of left knee L03.116 [facility] [id number] [place] [address] 15 Aug, 2017 Cellulitis of left knee L03.116 [facility] [id number] [place] [address] Aug, Hypertriglyceridemia E78.1 [facility] [id number] [place] [address] Aug, [facility] [id number] [place] [address] 16 Jul, 2017 Hypertriglyceridemia E78.1 [facility] [id number] [place] [address] 08 Jul, 2017 Benign prostatic hyperplasia with lower urinary tract symptoms, unspecified morphology N40.1 [facility] [id number] [place] [address] 02 Jul, 2017 [facility] [address] [address] Jun, [facility] [id number] [place] [address] Jun, Hypertriglyceridemia E78.1 [place] [id number] [place] [address] Jun, Type 2 diabetes mellitus with unspecified complications E11.8 ; Encounter for immunization Z23 ; Neuropathy G62.9 ; 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 G89.29 and longterm 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 [place] [id number] [place] [address] Jun, [place] [id number] [place] [address] May, [facility] [id number] [place] [address] Apr, Benign prostatic hyperplasia with lower urinary tract symptoms, unspecified morphology N40.1 [place] [id number] [place] [address] Apr, [place] [id number] [place] [address] Mar, 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 G89.29 ; Anxiety F41.9 and Neuropathy G62.9 [facility] [id number] [place] [address] 09 Mar, 2017 Type 2 diabetes mellitus with unspecified complications E11.8 and 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 G89.29 [facility] [id number] [place] [address] 29 Feb, 2017 Neuropathy G62.9 [facility] [id number] [place] [address] 15 Feb, 2017 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 G89.29 and Anxiety F41.9 [facility] [id number] [place] [address] Jan, [facility] [id number] [place] [address] Jan, 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 G89.29 and Anxiety F41.9 [facility] [id number] [place] [address] Dec, [facility] [id number] [place] [address] Dec, 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 G89.29 and Anxiety F41.9 [place] [id number] [place] [address] Dec, [facility] [id number] [place] [address] Dec, Primary insomnia F51.01 and Neuropathy G62.9 [facility] [id number] [place] [address] Nov, Anxiety F41.9 and 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 G89.29 [facility] [id number] [place] [address] Nov, Type 2 diabetes mellitus with unspecified complications E11.8 ; Neuropathy G62.9 and Primary insomnia F51.01 [facility] [id number] [place] [address] October, Anxiety F41.9 and 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 G89.29 [facility] [id number] [place] [address] October, 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 G89.29 ; Type 2 diabetes mellitus with unspecified complications E11.8 and Hypoglycemia E16.2 [facility] [id number] [place] [address] 28 Sep, 2016 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 G89.29 and Anxiety F41.9 [facility] [id number] [place] [address] Sep, [facility] [id number] [place] [address] Aug, 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 G89.29 and Anxiety F41.9 [facility] [id number] [place] [address] Aug, Rash R21 and Pain of right hip joint M25.551 [place] [address] [address] Aug, [facility] [address] [address] Aug, [facility] [id number] [place] [address] Aug, 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 G89.29 and Anxiety F41.9 [facility] [id number] [place] [address] Aug, Type 2 diabetes mellitus with unspecified complications E11.8 [facility] [id number] [place] [address] Jul, [facility] [id number] [place] [address] Jul, Bronchitis J40 and Non-intractable vomiting, presence of nausea not specified, unspecified vomiting type R11.10 [facility] [address] [address] Jul, [facility] [id number] [place] [address] Jul, 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 G89.29 and Anxiety F41.9 [facility] [address] [place] [address] Jul, Type 2 diabetes mellitus with unspecified complications E11.8 [facility] [address] [id number] Jun, Type 2 diabetes mellitus with unspecified complications E11.8 [facility] [id number] [place] [id number] Jun, Dental caries K02.9 [facility] [address] [address] Jun, [facility] [address] [id number] Jun, Dental examination Z01.20 [facility] [id number] [place] [address] Jun, Right corneal abrasion, initial encounter S05.01XA [facility] [id number] [place] [address] Jun, [facility] [id number] [place] [address] Jun, Dental examination Z01.20 [place] [id number] [place] [address] Jun, [facility] [id number] [place] [address] Jun, Perforated ear drum, right H72.91 ; Tooth pain K08.89 ; Type 2 diabetes mellitus with unspecified complications E11.8 and 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 G89.29 [facility] [id number] [place] [address] Jun, [place] [address] [address] Jun, 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 G89.29 and Anxiety F41.9 [facility] [id number] [place] [address] Jun, [facility] [id number] [place] [address] May, Type 2 diabetes mellitus with unspecified complications E11.8 ; Benign prostatic hyperplasia with lower urinary tract symptoms, unspecified morphology N40.1 and 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 G89.29 [place] [id number] [place] [address] 09 May, 2016 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 G89.29 and Anxiety F41.9 [place] [id number] [place] [address] Apr, 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 G89.29 and Anxiety F41.9 [place] [address] [address] Mar, [place] [id number] [place] [address] Mar, Anxiety F41.9 and 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 G89.29 [place] [id number] [place] [address] 14 Mar, 2016 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 G89.29 and longterm 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 Z79.891 [place] [id number] [place] [address] Mar, 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 G89.29 ; longterm 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 Z79.891 and Anxiety F41.9 [place] [id number] [place] [address] 30 Feb, 2016 Bronchitis J40 [place] [id number] [place] [address] 19 Feb, 2016 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 G89.29 [place] [id number] [place] [address] 15 Feb, 2016 Type 2 diabetes mellitus with unspecified complications E11.8 [place] [id number] [place] [address] Jan, Anxiety F41.9 [place] [id number] [place] [address] Jan, [place] [id number] [place] [address] Jan, [place] [id number] [place] [address] Jan, Type 2 diabetes mellitus with unspecified complications E11.8 and 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 G89.29 [place] [id number] [place] [address] Jan, [place] [id number] [place] [address] Jan, Dehydration E86.0 and Type 2 diabetes mellitus with unspecified complications E11.8 [place] [id number] [place] [address] Jan, [place] [id number] [place] [address] Dec, Anxiety F41.9 [place] [id number] [place] [address] Dec, Encounter to establish care Z76.89 ; Type 2 diabetes mellitus with unspecified complications E11.8 ; longterm 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 ; Dorsalgia, unspecified M54.9 ; 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 G89.29 ; Insomnia, unspecified type G47.00 ; Neuropathy G62.9 and Bilateral tinnitus H93.13 [place] [id number] [place] [address] Dec, IMMUNIZATIONS No Known Immunizations SOCIAL HISTORY Never Assessed REASON FOR VISIT Controlled Med Refill PLAN OF CARE VITAL SIGNS MEDICATIONS Medication Instructions Dosage Frequency Start Date End Date Duration Status Alprazolam 1 MG Orally Once a day 1 tablet at bedtime 24h 28 days Active Hydrocodone-Acetaminophen 10-325 MG Orally 3 times a day 1 tablet 8h Apr, 28 days Active RESULTS No Results PROCEDURES No Known procedures INSTRUCTIONS MEDICATIONS ADMINISTERED No Known Medications MEDICAL (GENERAL) HISTORY Type Description Date Medical History Type 2 diabetes mellitus without complications Medical History intermediate card tender (current) use of insulin Medical History Other [...]
--- OUTSIDE RECORDS SUMMARY | 2018-12-07 13:16 | XMS REPORT ---
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 Maker Name Role Phone SARAH GOLDMAN Unavailable PROBLEMS Type Condition ICD9-CM Code KCU93-TR Code Onset Dates Condition Status SNOMED Code Problem Anxiety F41.9 Active 05586308 Problem Benign prostatic hyperplasia with lower urinary tract symptoms, unspecified morphology N40.1 Active 952840625 Problem 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 G89.29 Active 39353804 Problem Hypertriglyceridemia E78.1 Active 409561838 Problem Type 2 diabetes mellitus with unspecified complications E11.8 Active 93447085 Problem Type 2 diabetes mellitus with hyperglycemia E11.65 Active 78275168 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 Active 907732886 Problem Hypoglycemia E16.2 Active 301438818 Problem Periodontitis K05.30 Active 51677998 Problem Neuropathy G62.9 Active 475772796 Problem Primary insomnia F51.01 Active 3319654 ALLERGIES No Information ENCOUNTERS Encounter Location Date Diagnosis [facility] [id number] [place] [address] Feb, [facility] [id number] [place] [address] Feb, Neuropathy G62.9 [facility] [id number] [place] [address] Jan, Neuropathy G62.9 [facility] [address] [address] Jan, [facility] [id number] [place] [address] Jan, [facility] [address] [address] Jan, Increased urinary frequency R35.0 ; Glucosuria R81 ; FCI 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 and Type 2 diabetes mellitus with hyperglycemia E11.65 [facility] [address] [place] [address] Dec, Hypertriglyceridemia E78.1 [facility] [id number] [place] [address] Dec, [facility] [id number] [place] [address] Nov, [facility] [id number] [place] [address] Nov, Hypertriglyceridemia E78.1 and Benign prostatic hyperplasia with lower urinary tract symptoms, unspecified morphology N40.1 [facility] [id number] [place] [address] Nov, Therapeutic drug monitoring Z51.81 ; Hypertriglyceridemia E78.1 ; Type 2 diabetes mellitus with unspecified complications E11.8 ; Tobacco abuse Z72.0 ; Chronic prescription opiate use Z79.891 and Chronically on benzodiazepine therapy Z79.899 [facility] [id number] [place] [address] October, Neuropathy G62.9 [facility] [address] [place] [address] October, Neuropathy G62.9 [facility] [id number] [place] [address] October, [facility] [id number] [place] [address] Sep, [facility] [id number] [place] [address] Sep, Anemia, unspecified type D64.9 [facility] [address] [id number] [address] Sep, Anemia, unspecified type D64.9 [place] [id number] [place] [address] Aug, [facility] [facility] [id number] [place] [address] 23 Aug, 2017 Cellulitis of left lower extremity L03.116 [facility] [id number] [place] [address] 16 Aug, 2017 Cellulitis of left knee L03.116 [facility] [id number] [place] [address] 15 Aug, 2017 Cellulitis of left knee L03.116 [facility] [id number] [place] [address] 06 Aug, 2017 Hypertriglyceridemia E78.1 [facility] [id number] [place] [address] Aug, [facility] [id number] [place] [address] Jul, Hypertriglyceridemia E78.1 [facility] [id number] [place] [address] Jul, Benign prostatic hyperplasia with lower urinary tract symptoms, unspecified morphology N40.1 [facility] [id number] [place] [address] Jul, [facility] [id number] [place] [address] Jun, [facility] [id number] [place] [address] Jun, Hypertriglyceridemia E78.1 [facility] [id number] [place] [address] Jun, Type 2 diabetes mellitus with unspecified complications E11.8 ; Encounter for immunization Z23 ; Neuropathy G62.9 ; 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 G89.29 and FCI 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 [facility] [facility] [id number] [place] [address] Jun, [facility] [id number] [place] [address] May, [facility] [id number] [place] [address] Apr, Benign prostatic hyperplasia with lower urinary tract symptoms, unspecified morphology N40.1 [facility] [id number] [place] [address] 10 Apr, 2017 [facility] [id number] [place] [address] Mar, 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 G89.29 ; Anxiety F41.9 and Neuropathy G62.9 [facility] [id number] [place] [address] 09 Mar, 2017 Type 2 diabetes mellitus with unspecified complications E11.8 and 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 G89.29 [facility] [id number] [place] [address] 29 Feb, 2017 Neuropathy G62.9 [facility] [id number] [place] [address] 15 Feb, 2017 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 G89.29 and Anxiety F41.9 [facility] [id number] [place] [address] Jan, [facility] [id number] [place] [address] Jan, 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 G89.29 and Anxiety F41.9 [facility] [id number] [place] [address] Dec, [facility] [id number] [place] [address] Dec, 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 G89.29 and Anxiety F41.9 [facility] [id number] [place] [address] Dec, [facility] [address] [place] [address] Dec, Primary insomnia F51.01 and Neuropathy G62.9 [facility] [id number] [place] [address] Nov, Anxiety F41.9 and 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 G89.29 [facility] [id number] [place] [address] Nov, Type 2 diabetes mellitus with unspecified complications E11.8 ; Neuropathy G62.9 and Primary insomnia F51.01 [facility] [id number] [place] [address] October, Anxiety F41.9 and 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 G89.29 [facility] [id number] [place] [address] October, 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 G89.29 ; Type 2 diabetes mellitus with unspecified complications E11.8 and Hypoglycemia E16.2 [facility] [id number] [place] [address] Sep, 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 G89.29 and Anxiety F41.9 [facility] [id number] [place] [address] Sep, [facility] [id number] [place] [address] Aug, Other chronic pain G89.29 and Anxiety F41.9 [facility] [id number] [place] [address] Aug, Rash R21 and Pain of right hip joint M25.551 [facility] [facility] [id number] [place] [address] Aug, [facility] [id number] [place] [address] Aug, [place] [address] [address] [address] Aug, Other chronic pain G89.29 and Anxiety F41.9 [facility] [address] [address] Aug, Type 2 diabetes mellitus with unspecified complications E11.8 [place] [address] [address] Jul, [facility] [address] [address] Jul, Bronchitis J40 and Non-intractable vomiting, presence of nausea not specified, unspecified vomiting type R11.10 [place] [address] [address] Jul, [place] [address] [address] Jul, Other chronic pain G89.29 and Anxiety F41.9 [facility] [address] [address] Jul, Type 2 diabetes mellitus with unspecified complications E11.8 [place] [address] [id number] Jun, Type 2 diabetes mellitus with unspecified complications E11.8 [facility] [address] [id number] Jun, Dental caries K02.9 [facility] [address] [address] Jun, [facility] [address] [id number] Jun, Dental examination Z01.20 [facility] [address] [address] Jun, Right corneal abrasion, initial encounter S05.01XA [place] [address] [address] Jun, [facility] [id number] [place] [address] Jun, Dental examination Z01.20 [facility] [id number] [place] [address] Jun, [facility] [id number] [place] [address] Jun, Perforated ear drum, right H72.91 ; Tooth pain K08.89 ; Type 2 diabetes mellitus with unspecified complications E11.8 and Other chronic pain G89.29 [place] [id number] [place] [address] Jun, [facility] [id number] [place] [address] Jun, Other chronic pain G89.29 and Anxiety F41.9 [facility] [id number] [place] [address] Jun, [facility] [id number] [place] [address] May, Type 2 diabetes mellitus with unspecified complications E11.8 ; Benign prostatic hyperplasia with lower urinary tract symptoms, unspecified morphology N40.1 and Other chronic pain G89.29 [facility] [id number] [place] [address] May, Other chronic pain G89.29 and Anxiety F41.9 [facility] [id number] [place] [address] Apr, Other chronic pain G89.29 and Anxiety F41.9 [facility] [id number] [place] [address] Mar, [facility] [id number] [place] [address] 17 Mar, 2016 Anxiety F41.9 and Other chronic pain G89.29 [facility] [id number] [place] [address] 14 Mar, 2016 Other chronic pain G89.29 and FCI 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 Z79.891 [facility] [id number] [place] [address] 14 Mar, 2016 Other chronic pain G89.29 ; 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 and Anxiety F41.9 [facility] [id number] [place] [address] 30 Feb, 2016 Bronchitis J40 [facility] [address] [address] 19 Feb, 2016 Other chronic pain G89.29 [place] [id number] [place] [address] 15 Feb, 2016 Type 2 diabetes mellitus with unspecified complications E11.8 [facility] [place] [id number] [place] [address] Jan, Anxiety F41.9 [facility] [id number] [place] [address] Jan, [place] [id number] [place] [address] Jan, [place] [id number] [place] [address] Jan, Type 2 diabetes mellitus with unspecified complications E11.8 and Other chronic pain G89.29 [facility] [id number] [place] [address] Jan, [facility] [id number] [place] [address] Jan, Dehydration E86.0 and Type 2 diabetes mellitus with unspecified complications E11.8 [facility] [id number] [place] [address] Jan, [facility] [id number] [place] [address] Dec, Anxiety F41.9 [place] [address] [facility] [id number] [address] Dec, Encounter to establish care Z76.89 ; Type 2 diabetes mellitus with unspecified complications E11.8 ; 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 ; Dorsalgia, unspecified M54.9 ; Other chronic pain G89.29 ; Insomnia, unspecified type G47.00 ; Neuropathy G62.9 and Bilateral tinnitus H93.13 [place] [address] [facility] [id number] [address] Dec, IMMUNIZATIONS No Known Immunizations SOCIAL HISTORY Never Assessed REASON FOR VISIT Refill request PLAN OF CARE VITAL SIGNS MEDICATIONS Medication Instructions Dosage Frequency Start Date End Date Duration Status MetFORMIN HCl ER 500 MG Orally 2 times a day 2 tablets with meals 12h 30 days Active RESULTS No Results PROCEDURES No Known procedures INSTRUCTIONS MEDICATIONS ADMINISTERED No Known Medications MEDICAL (GENERAL) HISTORY Type Description Date Medical History Type 2 diabetes mellitus without complications Medical History 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
--- OUTSIDE RECORDS SUMMARY | 2018-12-07 13:16 | XMS REPORT ---
Author Author SARAH GOLDMAN Organization [facility] Address [address] [place] [address] Care Team Providers Care Raisin Washer Name Role Phone SARAH GOLDMAN Unavailable PROBLEMS Type Condition ICD9-CM Code ZZK08-NT Code Onset Dates Condition Status SNOMED Code Problem Anxiety F41.9 Active 45015595 Problem Benign prostatic hyperplasia with lower urinary tract symptoms, unspecified morphology N40.1 Active 762067228 Problem Other chronic pain G89.29 Active 64187751 Problem Hypertriglyceridemia E78.1 Active 769064177 Problem Type 2 diabetes mellitus with unspecified complications E11.8 Active 96233105 Problem Type 2 diabetes mellitus with hyperglycemia E11.65 Active 41456720 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 Active 259837467 Problem Hypoglycemia E16.2 Active 483495571 Problem Periodontitis K05.30 Active 97418526 Problem Neuropathy G62.9 Active 599569220 Problem Primary insomnia F51.01 Active 9117667 ALLERGIES No Information ENCOUNTERS Encounter Location Date Diagnosis [facility] [id number] [place] [address] Feb, [facility] [id number] [place] [address] Feb, Neuropathy G62.9 [facility] [id number] [place] [address] Jan, Neuropathy G62.9 [facility] [address] [address] Jan, [facility] [id number] [place] [address] Jan, [facility] [address] [address] Jan, Increased urinary frequency R35.0 ; Glucosuria R81 ; retirement 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 and Type 2 diabetes mellitus with hyperglycemia E11.65 [facility] [address] [place] [address] Dec, Hypertriglyceridemia E78.1 [facility] [id number] [place] [address] Dec, [facility] [id number] [place] [address] Nov, [facility] [id number] [place] [address] Nov, Hypertriglyceridemia E78.1 and Benign prostatic hyperplasia with lower urinary tract symptoms, unspecified morphology N40.1 [facility] [id number] [place] [address] Nov, Therapeutic drug monitoring Z51.81 ; Hypertriglyceridemia E78.1 ; Type 2 diabetes mellitus with unspecified complications E11.8 ; Tobacco abuse Z72.0 ; Chronic prescription opiate use Z79.891 and Chronically on benzodiazepine therapy Z79.899 [facility] [id number] [place] [address] October, Neuropathy G62.9 [facility] [address] [place] [address] October, Neuropathy G62.9 [facility] [id number] [place] [address] October, [facility] [address] [place] [address] Sep, [facility] [id number] [place] [address] Sep, Anemia, unspecified type D64.9 [facility] [address] [id number] [address] Sep, Anemia, unspecified type D64.9 [facility] [id number] [place] [address] Aug, [facility] [id number] [place] [address] 23 Aug, 2017 Cellulitis of left lower extremity L03.116 [facility] [id number] [place] [address] 16 Aug, 2017 Cellulitis of left knee L03.116 [facility] [id number] [place] [address] 15 Aug, 2017 Cellulitis of left knee L03.116 [facility] [id number] [place] [address] 06 Aug, 2017 Hypertriglyceridemia E78.1 [facility] [id number] [place] [address] Aug, [facility] [id number] [place] [address] Jul, Hypertriglyceridemia E78.1 [facility] [id number] [place] [address] Jul, Benign prostatic hyperplasia with lower urinary tract symptoms, unspecified morphology N40.1 [facility] [id number] [place] [address] Jul, [facility] [id number] [place] [address] Jun, [facility] [id number] [place] [address] Jun, Hypertriglyceridemia E78.1 [facility] [id number] [place] [address] Jun, Type 2 diabetes mellitus with unspecified complications E11.8 ; Encounter for immunization Z23 ; Neuropathy G62.9 ; Other chronic pain G89.29 and retirement 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 [facility] [id number] [place] [address] Jun, [facility] [id number] [place] [address] May, [facility] [id number] [place] [address] Apr, Benign prostatic hyperplasia with lower urinary tract symptoms, unspecified morphology N40.1 [facility] [id number] [place] [address] 10 Apr, 2017 [facility] [id number] [place] [address] Mar, Other chronic pain G89.29 ; Anxiety F41.9 and Neuropathy G62.9 [facility] [id number] [place] [address] 09 Mar, 2017 Type 2 diabetes mellitus with unspecified complications E11.8 and Other chronic pain G89.29 [facility] [id number] [place] [address] 29 Feb, 2017 Neuropathy G62.9 [facility] [id number] [place] [address] 15 Feb, 2017 Other chronic pain G89.29 and Anxiety F41.9 [facility] [id number] [place] [address] Jan, [facility] [id number] [place] [address] Jan, Other chronic pain G89.29 and Anxiety F41.9 [facility] [id number] [place] [address] Dec, [facility] [id number] [place] [address] Dec, Other chronic pain G89.29 and Anxiety F41.9 [facility] [id number] [place] [address] Dec, [facility] [address] [place] [address] Dec, Primary insomnia F51.01 and Neuropathy G62.9 [facility] [id number] [place] [address] Nov, Anxiety F41.9 and Other chronic pain G89.29 [facility] [id number] [place] [address] Nov, Type 2 diabetes mellitus with unspecified complications E11.8 ; Neuropathy G62.9 and Primary insomnia F51.01 [facility] [id number] [place] [address] October, Anxiety F41.9 and Other chronic pain G89.29 [facility] [id number] [place] [address] October, Other chronic pain G89.29 ; Type 2 diabetes mellitus with unspecified complications E11.8 and Hypoglycemia E16.2 [facility] [id number] [place] [address] Sep, Other chronic pain G89.29 and Anxiety F41.9 [facility] [id number] [place] [address] Sep, [facility] [id number] [place] [address] Aug, Other chronic pain G89.29 and Anxiety F41.9 [facility] [id number] [place] [address] Aug, Rash R21 and Pain of right hip joint M25.551 [facility] [id number] [place] [address] Aug, [facility] [id number] [place] [address] Aug, [facility] [address] [address] Aug, Other chronic pain G89.29 and Anxiety F41.9 [facility] [address] [address] Aug, Type 2 diabetes mellitus with unspecified complications E11.8 [facility] [address] [address] Jul, [facility] [address] [address] Jul, Bronchitis J40 and Non-intractable vomiting, presence of nausea not specified, unspecified vomiting type R11.10 [facility] [address] [address] Jul, [facility] [address] [address] Jul, Other chronic pain G89.29 and Anxiety F41.9 [facility] [address] [address] Jul, Type 2 diabetes mellitus with unspecified complications E11.8 [facility] [address] [id number] Jun, Type 2 diabetes mellitus with unspecified complications E11.8 [facility] [address] [id number] Jun, Dental caries K02.9 [facility] [address] [address] Jun, [facility] [address] [id number] Jun, Dental examination Z01.20 [facility] [address] [address] Jun, Right corneal abrasion, initial encounter S05.01XA [facility] [address] [address] Jun, [facility] [id number] [place] [address] Jun, Dental examination Z01.20 [facility] [id number] [place] [address] Jun, [facility] [id number] [place] [address] Jun, Perforated ear drum, right H72.91 ; Tooth pain K08.89 ; Type 2 diabetes mellitus with unspecified complications E11.8 and Other chronic pain G89.29 [facility] [id number] [place] [address] Jun, [facility] [id number] [place] [address] Jun, Other chronic pain G89.29 and Anxiety F41.9 [facility] [id number] [place] [address] Jun, [facility] [id number] [place] [address] May, Type 2 diabetes mellitus with unspecified complications E11.8 ; Benign prostatic hyperplasia with lower urinary tract symptoms, unspecified morphology N40.1 and Other chronic pain G89.29 [facility] [id number] [place] [address] May, Other chronic pain G89.29 and Anxiety F41.9 [facility] [id number] [place] [address] Apr, Other chronic pain G89.29 and Anxiety F41.9 [facility] [id number] [place] [address] Mar, [facility] [id number] [place] [address] 17 Mar, 2016 Anxiety F41.9 and Other chronic pain G89.29 [facility] [id number] [place] [address] 14 Mar, 2016 Other chronic pain G89.29 and retirement 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 Z79.891 [facility] [id number] [place] [address] 14 Mar, 2016 Other chronic pain G89.29 ; 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 and Anxiety F41.9 [facility] [id number] [place] [address] 30 Feb, 2016 Bronchitis J40 [facility] [address] [address] 19 Feb, 2016 Other chronic pain G89.29 [facility] [id number] [place] [address] 15 Feb, 2016 Type 2 diabetes mellitus with unspecified complications E11.8 [facility] [id number] [place] [address] Jan, Anxiety F41.9 [facility] [id number] [place] [address] Jan, [facility] [id number] [place] [address] Jan, [facility] [id number] [place] [address] Jan, Type 2 diabetes mellitus with unspecified complications E11.8 and Other chronic pain G89.29 [facility] [id number] [place] [address] Jan, [facility] [id number] [place] [address] Jan, Dehydration E86.0 and Type 2 diabetes mellitus with unspecified complications E11.8 [facility] [id number] [place] [address] Jan, [facility] [id number] [place] [address] Dec, Anxiety F41.9 [facility] [address] [facility] [id number] [address] Dec, Encounter to establish care Z76.89 ; Type 2 diabetes mellitus with unspecified complications E11.8 ; 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 ; Dorsalgia, unspecified M54.9 ; Other chronic pain G89.29 ; Insomnia, unspecified type G47.00 ; Neuropathy G62.9 and Bilateral tinnitus H93.13 [facility] [facility] [address] [facility] [id number] [address] Dec, IMMUNIZATIONS No Known Immunizations SOCIAL HISTORY Never Assessed REASON FOR VISIT Controlled Med Refill 03/06/18 PLAN OF CARE VITAL SIGNS MEDICATIONS Medication Instructions Dosage Frequency Start Date End Date Duration Status Lyrica 150 MG Orally 3 times a day 1 capsule 8h May, 28 days Active Hydrocodone-Acetaminophen 10-325 MG Orally 3 times a day 1 tablet 8h Feb, 28 days Active Alprazolam 1 MG Orally Once a day 1 tablet at bedtime 24h 28 days Active RESULTS No Results PROCEDURES No Known procedures INSTRUCTIONS MEDICATIONS ADMINISTERED No Known Medications MEDICAL (GENERAL) HISTORY Type Description Date Medical History Type 2 diabetes mellitus without complications Medical History 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
--- OUTSIDE RECORDS SUMMARY | 2018-12-07 13:16 | XMS REPORT ---
Author Author EVIE SUÁREZ Organization [facility] Address [address] [place] [address] Care Team Providers [employer] Name Role Phone EVIE SUÁREZ Unavailable PROBLEMS Type Condition ICD9-CM Code EYE26-GM Code Onset Dates Condition Status SNOMED Code Problem Anxiety F41.9 Active 93286094 Problem Benign prostatic hyperplasia with lower urinary tract symptoms, unspecified morphology N40.1 Active 226821037 Problem Other chronic pain G89.29 Active 85753357 Problem Hypertriglyceridemia E78.1 Active 878376455 Problem Type 2 diabetes mellitus with unspecified complications E11.8 Active 49379882 Problem Type 2 diabetes mellitus with hyperglycemia E11.65 Active 13525731 Problem retirement 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 Active 913692357 Problem Hypoglycemia E16.2 Active 675321098 Problem Periodontitis K05.30 Active 75013472 Problem Neuropathy G62.9 Active 128342291 Problem Primary insomnia F51.01 Active 3178439 ALLERGIES No Information ENCOUNTERS Encounter Location Date Diagnosis [facility] [id number] [place] [phone] Mar, [facility] [id number] [place] [address] Mar, [facility] [id number] [place] [address] Feb, [facility] [id number] [place] [address] Feb, Neuropathy G62.9 [facility] [id number] [place] [address] Jan, Neuropathy G62.9 [facility] [id number] [place] [address] Jan, [facility] [id number] [place] [address] Jan, [facility] [id number] [place] [address] Jan, Increased urinary frequency R35.0 ; Glucosuria R81 ; retirement 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 and Type 2 diabetes mellitus with hyperglycemia E11.65 [facility] [id number] [place] [address] Dec, Hypertriglyceridemia E78.1 [facility] [id number] [place] [address] Dec, [facility] [id number] [place] [address] Nov, [facility] [id number] [place] [address] Nov, Hypertriglyceridemia E78.1 and Benign prostatic hyperplasia with lower urinary tract symptoms, unspecified morphology N40.1 [facility] [id number] [place] [address] Nov, Therapeutic drug monitoring Z51.81 ; Hypertriglyceridemia E78.1 ; Type 2 diabetes mellitus with unspecified complications E11.8 ; Tobacco abuse Z72.0 ; Chronic prescription opiate use Z79.891 and Chronically on benzodiazepine therapy Z79.899 [facility] [id number] [place] [address] October, Neuropathy G62.9 [facility] [id number] [place] [address] October, Neuropathy G62.9 [facility] [id number] [place] [address] October, [facility] [id number] [place] [address] Sep, [facility] [id number] [place] [address] Sep, Anemia, unspecified type D64.9 [facility] [address] [id number] [address] Sep, Anemia, unspecified type D64.9 [facility] [address] [address] Aug, [facility] [address] [place] [address] Aug, Cellulitis of left lower extremity L03.116 [facility] [id number] [place] [address] Aug, Cellulitis of left knee L03.116 [facility] [address] [address] Aug, Cellulitis of left knee L03.116 [facility] [id number] [place] [address] Aug, Hypertriglyceridemia E78.1 [facility] [address] [address] Aug, [facility] [id number] [place] [address] Jul, Hypertriglyceridemia E78.1 [facility] [address] [address] Jul, Benign prostatic hyperplasia with lower urinary tract symptoms, unspecified morphology N40.1 [facility] [id number], [place] [address] Jul, [facility] [id number] [place] [address] Jun, [facility] [address] [address] Jun, Hypertriglyceridemia E78.1 [facility] [address] [place] [address] Jun, Type 2 diabetes mellitus with unspecified complications E11.8 ; Encounter for immunization Z23 ; Neuropathy G62.9 ; Other 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 G89.29 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 [facility] [id number] [place] [address] Jun, [facility] [id number] [place] [address] May, [facility] [address] [address] Apr, Benign prostatic hyperplasia with lower urinary tract symptoms, unspecified morphology N40.1 [facility] [address] [address] Apr, [facility] [address] [address] Mar, Other chronic pain G89.29 ; Anxiety F41.9 and Neuropathy G62.9 [facility] [id number] [place] [address] 09 Mar, 2017 Type 2 diabetes mellitus with unspecified complications E11.8 and Other chronic pain G89.29 [facility] [id number] [place] [address] Feb, Neuropathy G62.9 [facility] [id number] [place] [address] 15 Feb, 2017 Other chronic pain G89.29 and Anxiety F41.9 [facility] [id number] [place] [address] Jan, [facility] [id number] [place] [address] Jan, Other chronic pain G89.29 and Anxiety F41.9 [facility] [id number] [place] [address] Dec, [facility] [id number] [place] [address] Dec, Other chronic pain G89.29 and Anxiety F41.9 [facility] [id number] [place] [address] Dec, [facility] [id number] [place] [address] Dec, Primary insomnia F51.01 and Neuropathy G62.9 [facility] [id number] [place] [address] Nov, Anxiety F41.9 and Other chronic pain G89.29 [facility] [id number] [place] [address] Nov, Type 2 diabetes mellitus with unspecified complications E11.8 ; Neuropathy G62.9 and Primary insomnia F51.01 [facility] [id number] [place] [address] October, Anxiety F41.9 and Other chronic pain G89.29 [facility] [id number] [place] [address] October, Other chronic pain G89.29 ; Type 2 diabetes mellitus with unspecified complications E11.8 and Hypoglycemia E16.2 [facility] [id number] [place] [address] Sep, Other chronic pain G89.29 and Anxiety F41.9 [facility] [id number] [place] [address] Sep, [facility] [id number] [place] [address] Aug, Other chronic pain G89.29 and Anxiety F41.9 [facility] [id number] [place] [address] Aug, Rash R21 and Pain of right hip joint M25.551 [facility] [id number] [place] [address] Aug, [facility] [id number] [place] [address] Aug, [facility] [id number] [place] [address] Aug, Other chronic pain G89.29 and Anxiety F41.9 [facility] [id number] [place] [address] Aug, Type 2 diabetes mellitus with unspecified complications E11.8 [facility] [id number] [place] [address] Jul, [facility] [address] [address] Jul, Bronchitis J40 and Non-intractable vomiting, presence of nausea not specified, unspecified vomiting type R11.10 [facility] [id number] [place] [address] Jul, [facility] [id number] [place] [address] Jul, Other chronic pain G89.29 and Anxiety F41.9 [facility] [id number] [place] [address] Jul, Type 2 diabetes mellitus with unspecified complications E11.8 [facility] [id number] [place] [address] Jun, Type 2 diabetes mellitus with unspecified complications E11.8 [facility] [place] [id number] [place] [id number] Jun, Dental caries K02.9 [facility] [id number] [place] [address] Jun, [facility] [place] [facility] [id number] [place] [id number] Jun, Dental examination Z01.20 [facility] [address] [place] [address] Jun, Right corneal abrasion, initial encounter S05.01XA [facility] [id number] [place] [address] Jun, [facility] [id number] [place] [address] Jun, Dental examination Z01.20 [facility] [id number] [place] [address] Jun, [facility] [id number] [place] [address] Jun, Perforated ear drum, right H72.91 ; Tooth pain K08.89 ; Type 2 diabetes mellitus with unspecified complications E11.8 and Other chronic pain G89.29 [facility] [id number] [place] [address] Jun, [facility] [id number] [place] [address] Jun, Other chronic pain G89.29 and Anxiety F41.9 [facility] [id number] [place] [address] Jun, [facility] [id number] [place] [address] May, Type 2 diabetes mellitus with unspecified complications E11.8 ; Benign prostatic hyperplasia with lower urinary tract symptoms, unspecified morphology N40.1 and Other chronic pain G89.29 [facility] [id number] [place] [address] 09 May, 2016 Other chronic pain G89.29 and Anxiety F41.9 [facility] [id number] [place] [address] 14 Apr, 2016 Other chronic pain G89.29 and Anxiety F41.9 [facility] [id number] [place] [address] Mar, [facility] [address] [place] [address] 17 Mar, 2016 Anxiety F41.9 and Other chronic pain G89.29 [facility] [id number] [place] [address] 14 Mar, 2016 Other chronic pain G89.29 and retirement 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 Z79.891 [facility] [id number] [place] [address] 14 Mar, 2016 Other chronic pain G89.29 ; 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 and Anxiety F41.9 [facility] [address] [address] 30 Feb, 2016 Bronchitis J40 [facility] [address] [address] 19 Feb, 2016 Other chronic pain G89.29 [facility] [id number] [place] [address] 15 Feb, 2016 Type 2 diabetes mellitus with unspecified complications E11.8 [facility] [address] [address] Jan, Anxiety F41.9 [facility] [id number] [place] [address] Jan, [facility] [id number] [place] [address] Jan, [facility] [id number] [place] [address] Jan, Type 2 diabetes mellitus with unspecified complications E11.8 and Other chronic pain G89.29 [facility] [id number] [place] [address] Jan, [facility] [id number] [place] [address] 09 Jan, 2016 Dehydration E86.0 and Type 2 diabetes mellitus with unspecified complications E11.8 [facility] [facility] [address] [facility] [id number] [address] Jan, [facility] [id number] [address] Dec, Anxiety F41.9 [facility] [id number], [place] [address] Dec, Encounter to establish care Z76.89 ; Type 2 diabetes mellitus with unspecified complications E11.8 ; retirement 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 ; Dorsalgia, unspecified M54.9 ; Other chronic pain G89.29 ; Insomnia, unspecified type G47.00 ; Neuropathy G62.9 and Bilateral tinnitus H93.13 [facility] [id number], [place] [address] Dec, IMMUNIZATIONS No Known Immunizations SOCIAL HISTORY Never Assessed REASON FOR VISIT Repository return PLAN OF CARE VITAL SIGNS MEDICATIONS Unknown Medications RESULTS No Results PROCEDURES No Known procedures INSTRUCTIONS MEDICATIONS ADMINISTERED No Known Medications MEDICAL (GENERAL) HISTORY Type Description Date Medical History Type 2 diabetes mellitus without complications Medical History retirement (current) use of insulin Medical History Other [...]
--- OUTSIDE RECORDS SUMMARY | 2018-12-07 13:17 | XMS REPORT ---
Author Author SARAH GOLDMAN Organization [facility] Address [address] [place] [address] Care Team Providers Care Booth Operator Name Role Phone SARAH GOLDMAN Unavailable PROBLEMS Type Condition ICD9-CM Code [id number] Code Onset Dates Condition Status SNOMED Code Problem Anxiety F41.9 Active 54868428 Problem Benign prostatic hyperplasia with lower urinary tract symptoms, unspecified morphology N40.1 Active 629254159 Problem Other chronic pain G89.29 Active 67898121 Problem Hypertriglyceridemia E78.1 Active 038446610 Problem Type 2 diabetes mellitus with unspecified complications E11.8 Active 60709215 Problem Type 2 diabetes mellitus with hyperglycemia E11.65 Active 32061477 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 Active 305547116 Problem Hypoglycemia E16.2 Active 149064977 Problem Periodontitis K05.30 Active 34804522 Problem Neuropathy G62.9 Active 189114659 Problem Primary insomnia F51.01 Active 4174025 ALLERGIES No Information ENCOUNTERS Encounter Location Date Diagnosis [place] [id number] [place] [address] Feb, Neuropathy G62.9 [place] [id number] [place] [address] Jan, Neuropathy G62.9 [place] [id number] [place] [address] Jan, [place] [address] [address] Jan, [place] [id number] [place] [address] Jan, Increased urinary frequency R35.0 ; Glucosuria R81 ; 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 and Type 2 diabetes mellitus with hyperglycemia E11.65 [facility] [address] [address] Dec, Hypertriglyceridemia E78.1 [facility] [address] [address] Dec, [facility] [address] [place] [address] Nov, [facility] [address] [place] [address] Nov, Hypertriglyceridemia E78.1 and Benign prostatic hyperplasia with lower urinary tract symptoms, unspecified morphology N40.1 [facility] [address] [place] [address] Nov, Therapeutic drug monitoring Z51.81 ; Hypertriglyceridemia E78.1 ; Type 2 diabetes mellitus with unspecified complications E11.8 ; Tobacco abuse Z72.0 ; Chronic prescription opiate use Z79.891 and Chronically on benzodiazepine therapy Z79.899 [facility] [id number] [place] [address] October, Neuropathy G62.9 [facility] [address] [place] [address] October, Neuropathy G62.9 [facility] [address] [place] [address] October, [facility] [address] [place] [address] Sep, [facility] [id number] [place] [address] Sep, Anemia, unspecified type D64.9 [facility] [address] [id number] [address] Sep, Anemia, unspecified type D64.9 [facility] [address] [address] Aug, [facility] [address] [place] [address] Aug, Cellulitis of left lower extremity L03.116 [facility] [id number] [place] [address] Aug, Cellulitis of left knee L03.116 [facility] [id number] [place] [address] Aug, Cellulitis of left knee L03.116 [facility] [id number] [place] [address] Aug, Hypertriglyceridemia E78.1 [place] [id number] [place] [address] Aug, [place] [id number] [place] [address] Jul, Hypertriglyceridemia E78.1 [place] [id number] [place] [address] Jul, Benign prostatic hyperplasia with lower urinary tract symptoms, unspecified morphology N40.1 [place] [id number] [place] [address] 02 Jul, 2017 [place] [id number] [place] [address] Jun, [place] [id number] [place] [address] Jun, Hypertriglyceridemia E78.1 [place] [id number] [place] [address] Jun, Type 2 diabetes mellitus with unspecified complications E11.8 ; Encounter for immunization Z23 ; Neuropathy G62.9 ; Other chronic pain G89.29 and detention 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 [place] [id number] [place] [address] Jun, [place] [id number] [place] [address] May, [facility] [id number] [place] [address] Apr, Benign prostatic hyperplasia with lower urinary tract symptoms, unspecified morphology N40.1 [facility] [id number] [place] [address] Apr, [facility] [id number] [place] [address] Mar, Other chronic pain G89.29 ; Anxiety F41.9 and Neuropathy G62.9 [facility] [id number] [place] [address] 09 Mar, 2017 Type 2 diabetes mellitus with unspecified complications E11.8 and Other chronic pain G89.29 [facility] [id number] [place] [address] Feb, Neuropathy G62.9 [facility] [id number] [place] [address] 15 Feb, 2017 Other chronic pain G89.29 and Anxiety F41.9 [facility] [id number] [place] [address] Jan, [facility] [id number] [place] [address] Jan, Other chronic pain G89.29 and Anxiety F41.9 [facility] [id number] [place] [address] Dec, [facility] [id number] [place] [address] Dec, Other chronic pain G89.29 and Anxiety F41.9 [facility] [id number] [place] [address] Dec, [facility] [id number] [place] [address] Dec, Primary insomnia F51.01 and Neuropathy G62.9 [facility] [id number] [place] [address] Nov, Anxiety F41.9 and Other chronic pain G89.29 [place] [id number] [place] [address] Nov, Type 2 diabetes mellitus with unspecified complications E11.8 ; Neuropathy G62.9 and Primary insomnia F51.01 [place] [id number] [place] [address] October, Anxiety F41.9 and Other chronic pain G89.29 [place] [id number] [place] [address] October, Other chronic pain G89.29 ; Type 2 diabetes mellitus with unspecified complications E11.8 and Hypoglycemia E16.2 [place] [id number] [place] [address] Sep, Other chronic pain G89.29 and Anxiety F41.9 [place] [id number] [place] [address] Sep, [place] [id number] [place] [address] Aug, Other chronic pain G89.29 and Anxiety F41.9 [place] [id number] [place] [address] Aug, Rash R21 and Pain of right hip joint M25.551 [facility] [id number] [place] [address] Aug, [place] [id number] [place] [address] Aug, [place] [id number] [place] [address] Aug, Other chronic pain G89.29 and Anxiety F41.9 [place] [id number] [place] [address] Aug, Type 2 diabetes mellitus with unspecified complications E11.8 [facility] [id number] [place] [address] Jul, [facility] [address] [address] Jul, Bronchitis J40 and Non-intractable vomiting, presence of nausea not specified, unspecified vomiting type R11.10 [facility] [address] [address] Jul, [facility] [address] [address] Jul, Other chronic pain G89.29 and Anxiety F41.9 [facility] [address] [address] Jul, Type 2 diabetes mellitus with unspecified complications E11.8 [facility] [address] [address] Jun, Type 2 diabetes mellitus with unspecified complications E11.8 [facility] [address] [id number] Jun, Dental caries K02.9 [facility] [id number] [place] [address] Jun, [facility] [address] [id number] Jun, Dental examination Z01.20 [facility] [id number] [place] [address] Jun, Right corneal abrasion, initial encounter S05.01XA [facility] [id number] [place] [address] Jun, [facility] [address] [address] Jun, Dental examination Z01.20 [place] [id number] [place] [address] Jun, [place] [id number] [place] [address] Jun, Perforated ear drum, right H72.91 ; Tooth pain K08.89 ; Type 2 diabetes mellitus with unspecified complications E11.8 and Other chronic pain G89.29 [place] [id number] [place] [address] Jun, [place] [id number] [place] [address] Jun, Other chronic pain G89.29 and Anxiety F41.9 [place] [id number] [place] [address] Jun, [place] [id number] [place] [address] May, Type 2 diabetes mellitus with unspecified complications E11.8 ; Benign prostatic hyperplasia with lower urinary tract symptoms, unspecified morphology N40.1 and Other chronic pain G89.29 [place] [id number] [place] [address] May, Other chronic pain G89.29 and Anxiety F41.9 [place] [id number] [place] [address] Apr, Other chronic pain G89.29 and Anxiety F41.9 [place] [id number] [place] [address] Mar, [place] [id number] [place] [address] Mar, Anxiety F41.9 and Other chronic pain G89.29 [place] [id number] [place] [address] Mar, Other chronic pain G89.29 and ocean transportation intermediary 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 Z79.891 [facility] [address] [place] [address] 14 Mar, 2016 Other chronic pain G89.29 ; detention 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 Z79.891 and Anxiety F41.9 [facility] [id number] [place] [address] 30 Feb, 2016 Bronchitis J40 [facility] [id number] [place] [address] 19 Feb, 2016 Other chronic pain G89.29 [facility] [id number] [place] [address] 15 Feb, 2016 Type 2 diabetes mellitus with unspecified complications E11.8 [facility] [id number] [place] [address] Jan, Anxiety F41.9 [facility] [id number] [place] [address] Jan, [facility] [id number] [place] [address] Jan, [facility] [id number] [place] [address] Jan, Type 2 diabetes mellitus with unspecified complications E11.8 and Other chronic pain G89.29 [facility] [id number] [place] [address] Jan, [facility] [id number] [place] [address] Jan, Dehydration E86.0 and Type 2 diabetes mellitus with unspecified complications E11.8 [facility] [id number] [place] [address] Jan, [facility] [id number] [place] [address] Dec, Anxiety F41.9 [facility] [id number] [place] [address] Dec, Encounter to establish care Z76.89 ; Type 2 diabetes mellitus with unspecified complications E11.8 ; detention 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 ; Dorsalgia, unspecified M54.9 ; Other chronic pain G89.29 ; Insomnia, unspecified type G47.00 ; Neuropathy G62.9 and Bilateral tinnitus H93.13 [facility] [address] [facility] [id number] [place] [address] Dec, IMMUNIZATIONS No Known Immunizations SOCIAL HISTORY Never Assessed REASON FOR VISIT Controlled Med Refill PLAN OF CARE VITAL SIGNS MEDICATIONS Medication Instructions Dosage Frequency Start Date End Date Duration Status Lyrica 150 MG Orally 3 times a day 1 capsule 8h May, 28 days Active RESULTS No Results PROCEDURES No Known procedures INSTRUCTIONS MEDICATIONS ADMINISTERED No Known Medications MEDICAL (GENERAL) HISTORY Type Description Date Medical History Type 2 diabetes mellitus without complications Medical History ocean transportation intermediary (current) use of insulin Medical History Other [...]
--- OUTSIDE RECORDS SUMMARY | 2018-12-07 13:17 | XMS REPORT ---
Author Author SARAH GOLDMAN Organization [facility] Address [address] [place] [address] Care Team Providers Care Vulcanizing Machine Operator Name Role Phone SARAH GOLDMAN Unavailable PROBLEMS Type Condition ICD9-CM Code LLE68-IK Code Onset Dates Condition Status SNOMED Code Problem Anxiety F41.9 Active 54973024 Problem Benign prostatic hyperplasia with lower urinary tract symptoms, unspecified morphology N40.1 Active 980463487 Problem Other chronic pain G89.29 Active 08428010 Problem Hypertriglyceridemia E78.1 Active 191085833 Problem Type 2 diabetes mellitus with unspecified complications E11.8 Active 68895863 Problem Type 2 diabetes mellitus with hyperglycemia E11.65 Active 91124422 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 157803596 Problem Hypoglycemia E16.2 Active 018172985 Problem Periodontitis K05.30 Active 60059703 Problem Neuropathy G62.9 Active 509790948 Problem Primary insomnia F51.01 Active 5811109 ALLERGIES No Information ENCOUNTERS Encounter Location Date Diagnosis [place] [id number] [place] [address] Feb, Neuropathy G62.9 [place] [id number] [place] [address] Jan, Neuropathy G62.9 [place] [id number] [place] [address] Jan, [place] [address] [address] Jan, [place] [id number] [place] [address] Jan, Increased urinary frequency R35.0 ; Glucosuria R81 ; 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 and Type 2 diabetes mellitus with hyperglycemia E11.65 [facility] [address] [address] Dec, Hypertriglyceridemia E78.1 [facility] [address] [address] Dec, [facility] [id number] [place] [address] Nov, [facility] [id number] [place] [address] Nov, Hypertriglyceridemia E78.1 and Benign prostatic hyperplasia with lower urinary tract symptoms, unspecified morphology N40.1 [facility] [address] [place] [address] Nov, Therapeutic drug monitoring Z51.81 ; Hypertriglyceridemia E78.1 ; Type 2 diabetes mellitus with unspecified complications E11.8 ; Tobacco abuse Z72.0 ; Chronic prescription opiate use Z79.891 and Chronically on benzodiazepine therapy Z79.899 [facility] [id number] [place] [address] October, Neuropathy G62.9 [facility] [id number] [place] [address] October, Neuropathy G62.9 [facility] [id number] [place] [address] October, [facility] [id number] [place] [address] Sep, [facility] [id number] [place] [address] Sep, Anemia, unspecified type D64.9 [facility] [address] [id number] [address] Sep, Anemia, unspecified type D64.9 [facility] [address] [address] Aug, [facility] [id number] [place] [address] Aug, Cellulitis of left lower extremity L03.116 [facility] [id number] [place] [address] Aug, Cellulitis of left knee L03.116 [facility] [id number] [place] [address] Aug, Cellulitis of left knee L03.116 [facility] [id number] [place] [address] Aug, Hypertriglyceridemia E78.1 [place] [id number] [place] [address] Aug, [place] [id number] [place] [address] Jul, Hypertriglyceridemia E78.1 [place] [id number] [place] [address] Jul, Benign prostatic hyperplasia with lower urinary tract symptoms, unspecified morphology N40.1 [place] [id number] [place] [address] 02 Jul, 2017 [place] [id number] [place] [address] Jun, [place] [id number] [place] [address] Jun, Hypertriglyceridemia E78.1 [place] [id number] [place] [address] Jun, Type 2 diabetes mellitus with unspecified complications E11.8 ; Encounter for immunization Z23 ; Neuropathy G62.9 ; Other chronic pain G89.29 and intermediate 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 [place] [id number] [place] [address] Jun, [place] [id number] [place] [address] May, [facility] [id number] [place] [address] Apr, Benign prostatic hyperplasia with lower urinary tract symptoms, unspecified morphology N40.1 [facility] [id number] [place] [address] Apr, [facility] [id number] [place] [address] Mar, Other chronic pain G89.29 ; Anxiety F41.9 and Neuropathy G62.9 [facility] [id number] [place] [address] 09 Mar, 2017 Type 2 diabetes mellitus with unspecified complications E11.8 and Other chronic pain G89.29 [facility] [id number] [place] [address] Feb, Neuropathy G62.9 [facility] [id number] [place] [address] 15 Feb, 2017 Other chronic pain G89.29 and Anxiety F41.9 [facility] [id number] [place] [address] Jan, [facility] [id number] [place] [address] Jan, Other chronic pain G89.29 and Anxiety F41.9 [facility] [id number] [place] [address] Dec, [facility] [id number] [place] [address] Dec, Other chronic pain G89.29 and Anxiety F41.9 [facility] [id number] [place] [address] Dec, [facility] [id number] [place] [address] Dec, Primary insomnia F51.01 and Neuropathy G62.9 [facility] [id number] [place] [address] Nov, Anxiety F41.9 and Other chronic pain G89.29 [place] [id number] [place] [address] Nov, Type 2 diabetes mellitus with unspecified complications E11.8 ; Neuropathy G62.9 and Primary insomnia F51.01 [place] [id number] [place] [address] October, Anxiety F41.9 and Other chronic pain G89.29 [place] [id number] [place] [address] October, Other chronic pain G89.29 ; Type 2 diabetes mellitus with unspecified complications E11.8 and Hypoglycemia E16.2 [place] [id number] [place] [address] Sep, Other chronic pain G89.29 and Anxiety F41.9 [place] [id number] [place] [address] Sep, [place] [id number] [place] [address] Aug, Other chronic pain G89.29 and Anxiety F41.9 [place] [id number] [place] [address] Aug, Rash R21 and Pain of right hip joint M25.551 [facility] [id number] [place] [address] Aug, [place] [id number] [place] [address] Aug, [place] [id number] [place] [address] Aug, Other chronic pain G89.29 and Anxiety F41.9 [place] [id number] [place] [address] Aug, Type 2 diabetes mellitus with unspecified complications E11.8 [facility] [id number] [place] [address] Jul, [facility] [address] [address] Jul, Bronchitis J40 and Non-intractable vomiting, presence of nausea not specified, unspecified vomiting type R11.10 [facility] [address] [address] Jul, [facility] [address] [address] Jul, Other chronic pain G89.29 and Anxiety F41.9 [facility] [address] [address] Jul, Type 2 diabetes mellitus with unspecified complications E11.8 [facility] [address] [address] Jun, Type 2 diabetes mellitus with unspecified complications E11.8 [facility] [address] [id number] Jun, Dental caries K02.9 [facility] [id number] [place] [address] Jun, [facility] [address] [id number] Jun, Dental examination Z01.20 [facility] [id number] [place] [address] Jun, Right corneal abrasion, initial encounter S05.01XA [facility] [id number] [place] [address] Jun, [facility] [address] [address] Jun, Dental examination Z01.20 [place] [id number] [place] [address] Jun, [place] [id number] [place] [address] Jun, Perforated ear drum, right H72.91 ; Tooth pain K08.89 ; Type 2 diabetes mellitus with unspecified complications E11.8 and Other chronic pain G89.29 [place] [id number] [place] [address] Jun, [place] [id number] [place] [address] Jun, Other chronic pain G89.29 and Anxiety F41.9 [place] [id number] [place] [address] Jun, [place] [id number] [place] [address] May, Type 2 diabetes mellitus with unspecified complications E11.8 ; Benign prostatic hyperplasia with lower urinary tract symptoms, unspecified morphology N40.1 and Other chronic pain G89.29 [place] [id number] [place] [address] May, Other chronic pain G89.29 and Anxiety F41.9 [place] [id number] [place] [address] Apr, Other chronic pain G89.29 and Anxiety F41.9 [place] [id number] [place] [address] Mar, [place] [id number] [place] [address] Mar, Anxiety F41.9 and Other chronic pain G89.29 [place] [id number] [place] [address] Mar, Other chronic pain G89.29 and mobile heavy equipment operator 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 Z79.891 [facility] [address] [place] [address] 14 Mar, 2016 Other chronic pain G89.29 ; intermediate 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 Z79.891 and Anxiety F41.9 [facility] [id number] [place] [address] 30 Feb, 2016 Bronchitis J40 [facility] [id number] [place] [address] 19 Feb, 2016 Other chronic pain G89.29 [facility] [id number] [place] [address] 15 Feb, 2016 Type 2 diabetes mellitus with unspecified complications E11.8 [facility] [id number] [place] [address] Jan, Anxiety F41.9 [facility] [id number] [place] [address] Jan, [facility] [id number] [place] [address] Jan, [facility] [id number] [place] [address] Jan, Type 2 diabetes mellitus with unspecified complications E11.8 and Other chronic pain G89.29 [facility] [id number] [place] [address] Jan, [facility] [id number] [place] [address] Jan, Dehydration E86.0 and Type 2 diabetes mellitus with unspecified complications E11.8 [facility] [id number] [place] [address] Jan, [facility] [id number] [place] [address] Dec, Anxiety F41.9 [facility] [id number] [place] [address] Dec, Encounter to establish care Z76.89 ; Type 2 diabetes mellitus with unspecified complications E11.8 ; intermediate 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 ; Dorsalgia, unspecified M54.9 ; Other chronic pain G89.29 ; Insomnia, unspecified type G47.00 ; Neuropathy G62.9 and Bilateral tinnitus H93.13 [facility] [address] [facility] [id number] [place] [address] Dec, IMMUNIZATIONS No Known Immunizations SOCIAL HISTORY Never Assessed REASON FOR VISIT Hypoglycemia PLAN OF CARE VITAL SIGNS MEDICATIONS Unknown Medications RESULTS No Results PROCEDURES No Known procedures INSTRUCTIONS MEDICATIONS ADMINISTERED No Known Medications MEDICAL (GENERAL) HISTORY Type Description Date Medical History Type 2 diabetes mellitus without complications Medical History 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
--- OUTSIDE RECORDS SUMMARY | 2018-12-07 13:17 | XMS REPORT ---
Author Author SARAH GOLDMAN [facility] Address [address] [place] [address] Care Team Providers Care Aviation Ordnance Officer Name Role Phone SARAH GOLDMAN Unavailable PROBLEMS Type Condition ICD9-CM Code HLT05-ZA Code Onset Dates Condition Status SNOMED Code Problem Anxiety F41.9 Active 69931983 Problem Benign prostatic hyperplasia with lower urinary tract symptoms, unspecified morphology N40.1 Active 151479742 Problem Other chronic pain G89.29 Active 91559061 Problem Hypertriglyceridemia E78.1 Active 827982134 Problem Type 2 diabetes mellitus with unspecified complications E11.8 Active 15480195 Problem Type 2 diabetes mellitus with hyperglycemia E11.65 Active 29335848 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 Active 307911532 Problem Hypoglycemia E16.2 Active 620181466 Problem Periodontitis K05.30 Active 72493484 Problem Neuropathy G62.9 Active 282163995 Problem Primary insomnia F51.01 Active 9780797 ALLERGIES No Known Allergies ENCOUNTERS Encounter Location Date Diagnosis [place] [id number] [place] [address] Feb, Neuropathy G62.9 [place] [address] [place] [id number] [place] [address] Jan, Neuropathy G62.9 [place] [address] [place] [id number] [place] [address] Jan, [place] [address] [address] Jan, [place] [address] [place] [id number] [place] [address] Jan, Increased urinary frequency R35.0 ; Glucosuria R81 ; 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 and Type 2 diabetes mellitus with hyperglycemia E11.65 [facility] [address] [address] Dec, Hypertriglyceridemia E78.1 [facility] [address] [address] Dec, [facility] [id number] [place] [address] Nov, [facility] [id number] [place] [address] Nov, Hypertriglyceridemia E78.1 and Benign prostatic hyperplasia with lower urinary tract symptoms, unspecified morphology N40.1 [facility] [id number] [place] [address] Nov, Therapeutic drug monitoring Z51.81 ; Hypertriglyceridemia E78.1 ; Type 2 diabetes mellitus with unspecified complications E11.8 ; Tobacco abuse Z72.0 ; Chronic prescription opiate use Z79.891 and Chronically on benzodiazepine therapy Z79.899 [facility] [address] [address] October, Neuropathy G62.9 [facility] [id number] [place] [address] October, Neuropathy G62.9 [facility] [address] [address] October, [facility] [id number] [place] [address] Sep, [facility] [address] [address] Sep, Anemia, unspecified type D64.9 [facility] [address] [id number] [address] Sep, Anemia, unspecified type D64.9 [facility] [address] [address] Aug, [place] [address] [place] [id number] [place] [address] Aug, Cellulitis of left lower extremity L03.116 [facility] [address] [id number] [place] [address] Aug, Cellulitis of left knee L03.116 [facility] [address] [place] [id number] [place] [address] Aug, Cellulitis of left knee L03.116 [place] [address] [place] [id number] [place] [address] Aug, Hypertriglyceridemia E78.1 [place] [address] [address] Aug, [place] [address] [place] [id number] [place] [address] Jul, Hypertriglyceridemia E78.1 [place] [address] [address] Jul, Benign prostatic hyperplasia with lower urinary tract symptoms, unspecified morphology N40.1 [place] [address] [place] [id number] [place] [address] 02 Jul, 2017 [place] [address] [place] [id number] [place] [address] Jun, [place] [address] [place] [id number] [place] [address] Jun, Hypertriglyceridemia E78.1 [place] [address] [place] [id number] [place] [address] Jun, Type 2 diabetes mellitus with unspecified complications E11.8 ; Encounter for immunization Z23 ; Neuropathy G62.9 ; Other chronic pain G89.29 and snf 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 [place] [address] [place] [id number] [place] [address] Jun, [place] [address] [place] [id number] [place] [address] May, [facility] [address] [place] [address] [id number] [place] [address] Apr, Benign prostatic hyperplasia with lower urinary tract symptoms, unspecified morphology N40.1 [facility] [address] [place] [id number] [place] [address] Apr, [facility] [address] [place] [id number] [place] [address] Mar, Other chronic pain G89.29 ; Anxiety F41.9 and Neuropathy G62.9 [facility] [address] [place] [id number] [place] [address] 09 Mar, 2017 Type 2 diabetes mellitus with unspecified complications E11.8 and Other chronic pain G89.29 [facility] [address] [place] [id number] [place] [address] Feb, Neuropathy G62.9 [facility] [address] [place] [id number] [place] [address] 15 Feb, 2017 Other chronic pain G89.29 and Anxiety F41.9 [facility] [address] [place] [id number] [place] [address] Jan, [facility] [address] [place] [id number] [place] [address] Jan, Other chronic pain G89.29 and Anxiety F41.9 [facility] [address] [place] [id number] [place] [address] Dec, [facility] [address] [place] [id number] [place] [address] Dec, Other chronic pain G89.29 and Anxiety F41.9 [facility] [address] [place] [id number] [place] [address] Dec, [facility] [address] [place] [id number] [place] [address] Dec, Primary insomnia F51.01 and Neuropathy G62.9 [facility] [address] [place] [id number] [place] [address] Nov, Anxiety F41.9 and Other chronic pain G89.29 [place] [address] [place] [id number] [place] [address] Nov, Type 2 diabetes mellitus with unspecified complications E11.8 ; Neuropathy G62.9 and Primary insomnia F51.01 [facility] [address] [place] [id number] [place] [address] October, Anxiety F41.9 and Other chronic pain G89.29 [place] [address] [place] [id number] [place] [address] October, Other chronic pain G89.29 ; Type 2 diabetes mellitus with unspecified complications E11.8 and Hypoglycemia E16.2 [place] [address] [place] [id number] [place] [address] Sep, Other chronic pain G89.29 and Anxiety F41.9 [place] [address] [place] [id number] [place] [address] Sep, [place] [address] [place] [id number] [place] [address] Aug, Other chronic pain G89.29 and Anxiety F41.9 [place] [address] [place] [id number] [place] [address] Aug, Rash R21 and Pain of right hip joint M25.551 [facility] [address] [place] [id number] [place] [address] Aug, [place] [address] [place] [id number] [place] [address] Aug, [place] [address] [place] [id number] [place] [address] Aug, Other chronic pain G89.29 and Anxiety F41.9 [facility] [address] [place] [id number] [place] [address] Aug, Type 2 diabetes mellitus with unspecified complications E11.8 [facility] [address] [address] Jul, [facility] [address] [address] Jul, Bronchitis J40 and Non-intractable vomiting, presence of nausea not specified, unspecified vomiting type R11.10 [facility] [address] [address] Jul, [facility] [address] [address] Jul, Other chronic pain G89.29 and Anxiety F41.9 [facility] [address] [address] Jul, Type 2 diabetes mellitus with unspecified complications E11.8 [facility] [address] [address] Jun, Type 2 diabetes mellitus with unspecified complications E11.8 [facility] [address] [id number] Jun, Dental caries K02.9 [facility] [address] [place] [address] [id number] [place] [address] Jun, [facility] [address] [id number] Jun, Dental examination Z01.20 [facility] [address] [address] Jun, Right corneal abrasion, initial encounter S05.01XA [facility] [address] [place] [id number] [place] [address] Jun, [facility] [address] [address] Jun, Dental examination Z01.20 [place] [address] [place] [id number] [place] [address] Jun, [place] [address] [place] [id number] [place] [address] Jun, Perforated ear drum, right H72.91 ; Tooth pain K08.89 ; Type 2 diabetes mellitus with unspecified complications E11.8 and Other chronic pain G89.29 [place] [address] [place] [id number] [place] [address] Jun, [place] [address] [address] Jun, Other chronic pain G89.29 and Anxiety F41.9 [place] [address] [place] [id number] [place] [address] Jun, [place] [address] [address] May, Type 2 diabetes mellitus with unspecified complications E11.8 ; Benign prostatic hyperplasia with lower urinary tract symptoms, unspecified morphology N40.1 and Other chronic pain G89.29 [place] [address] [place] [id number] [place] [address] May, Other chronic pain G89.29 and Anxiety F41.9 [place] [address] [place] [id number] [place] [address] Apr, Other chronic pain G89.29 and Anxiety F41.9 [place] [address] [place] [id number] [place] [address] Mar, [place] [address] [address] Mar, Anxiety F41.9 and Other chronic pain G89.29 [place] [address] [place] [id number] [place] [address] Mar, Other chronic pain G89.29 and snf 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 Z79.891 [facility] [id number] [place] [address] 14 Mar, 2016 Other chronic pain G89.29 ; snf 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 Z79.891 and Anxiety F41.9 [facility] [id number] [place] [address] 30 Feb, 2016 Bronchitis J40 [facility] [address] [place] [id number] [place] [address] 19 Feb, 2016 Other chronic pain G89.29 [facility] [address] [place] [id number] [place] [address] 15 Feb, 2016 Type 2 diabetes mellitus with unspecified complications E11.8 [facility] [address] [place] [id number] [place] [address] Jan, Anxiety F41.9 [facility] [address] [place] [id number] [place] [address] Jan, [facility] [address] [place] [id number] [place] [address] Jan, [facility] [address] [place] [id number] [place] [address] Jan, Type 2 diabetes mellitus with unspecified complications E11.8 and Other chronic pain G89.29 [facility] [id number] [place] [address] Jan, [facility] [address] [place] [id number] [place] [address] Jan, Dehydration E86.0 and Type 2 diabetes mellitus with unspecified complications E11.8 [facility] [address] [place] [id number] [place] [address] Jan, [facility] [address] [place] [id number] [place] [address] Dec, Anxiety F41.9 [facility] [address] [place] [id number] [place] [address] Dec, Encounter to establish care Z76.89 ; Type 2 diabetes mellitus with unspecified complications E11.8 ; snf 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 ; Dorsalgia, unspecified M54.9 ; Other chronic pain G89.29 ; Insomnia, unspecified type G47.00 ; Neuropathy G62.9 and Bilateral tinnitus H93.13 [facility] [address] [facility] [id number] [place] [address] Dec, IMMUNIZATIONS No Known Immunizations SOCIAL HISTORY Never Assessed REASON FOR VISIT Change in urine smell: states has been going on for a couple of week, states has very strong smell and leaves white film in underwear. States color goes from cl ear to orange-yellow, is worse in morning nely reeder PLAN OF CARE Activity Details Follow Up prn Reason: VITAL SIGNS Height 53 in 2018-02-01 Weight 153.2 lbs 2018-02-01 Temperature 98.2 degrees Fahrenheit 2018-02-01 Heart Rate 96 bpm 2018-02-01 Respiratory Rate 20 2018-02-01 BMI 38.34 kg/m2 2018-02-01 Blood pressure systolic 122 mmHg 2018-02-01 Blood pressure diastolic 70 mmHg 2018-02-01 MEDICATIONS Medication Instructions Dosage Frequency Start Date End Date Duration Status Glucocard Expression Test - In Vitro 2 times a day as directed 12h Jan, Active Tamsulosin HCl 0.4 MG Orally Once a day 1 capsule 24h Jul, 30 days Active Lyrica 150 MG Orally 3 times a day 1 capsule 8h May, 90 days Active Ibuprofen 800 MG TAKE ONE TABLET BY MOUTH THREE TIMES DAILY 30 Active Simvastatin 40 mg Orally Once a day 1 tablet in the evening 24h Nov, Active Black Oak 3 1000 MG Orally Once a day 3 capsules 24h Aug, 30 days Active Actos 45 MG Orally Once a day 1 tablet 24h Mar, Not-Taking Cialis 5 mg Orally Once a day 1 tablet 24h May, 90 days Not-Taking Alprazolam 1 MG Orally Once a day 1 tablet at bedtime 24h 28 days Active Hydrocodone-Acetaminophen 10-325 MG Orally 3 times a day 1 tablet 8h Dec, 28 days Active Insulin NPH Isophane & Regular (70-30) 100 UNIT/ML Subcutaneous 2 times a day 25u 12h 15 Jan, 2018 Active MetFORMIN HCl ER 500 MG TAKE TWO TABLETS BY MOUTH TWICE DAILY 30 Active Glucocard Expression Monitor w/Device as directed Jan, Active Ambien 5 mg Orally Once a day 1 tablet at bedtime 24h Nov, 28 days Not-Taking RESULTS Name Result Date Reference Range UA W/CULTURE IF INDICATED (IN HOUSE) 2018-02-01 Lot # [id number] Exp date 10/17/2018 Clarity Clear Color Yellow Odor Scant GLU 3+ COURTNEY Negative KET Negative SG 1.020 BLO Negative pH 6.0 Protein Negative URO 0.2 NIT Negative MAYELIN Negative Lot # Exp date PROCEDURES Procedure Date Ordered Result Body Site URINALYSIS, AUTO, W/O SCOPE Feb 01, 2018 INSTRUCTIONS MEDICATIONS ADMINISTERED No Known Medications MEDICAL (GENERAL) HISTORY Type Description Date Medical History Type 2 diabetes mellitus without complications Medical History snf (current) use of insulin Medical History Other [...]
--- OUTSIDE RECORDS SUMMARY | 2018-12-07 13:18 | XMS REPORT ---
Author Author SARAH GOLDMAN Organization [facility] Address [address] [place] [address] Care Team Providers Care Project Intern Name Role Phone SARAH GOLDMAN Unavailable PROBLEMS Type Condition ICD9-CM Code URK26-YD Code Onset Dates Condition Status SNOMED Code Problem Anxiety F41.9 Active 67487372 Problem Benign prostatic hyperplasia with lower urinary tract symptoms, unspecified morphology N40.1 Active 299212180 Problem Other chronic pain G89.29 Active 01879387 Problem Hypertriglyceridemia E78.1 Active 317768211 Problem Type 2 diabetes mellitus with unspecified complications E11.8 Active 06459368 Problem Type 2 diabetes mellitus with hyperglycemia E11.65 Active 86598763 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 Active 954783449 Problem Hypoglycemia E16.2 Active 326633776 Problem Periodontitis K05.30 Active 20732792 Problem Neuropathy G62.9 Active 514355370 Problem Primary insomnia F51.01 Active 2081698 ALLERGIES No Information ENCOUNTERS Encounter Location Date Diagnosis [place] [id number] [place] [address] Jan, Neuropathy G62.9 [place] [address] [place] [id number] [place] [address] Jan, [place] [address] [place] [id number] [place] [address] Jan, [place] [address] [place] [id number] [place] [address] Jan, Increased urinary frequency R35.0 ; Glucosuria R81 ; jail 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 and Type 2 diabetes mellitus with hyperglycemia E11.65 [place] [address] [place] [id number] [place] [address] Dec, Hypertriglyceridemia E78.1 [facility] [address] [address] Dec, [facility] [address] [place] [address] Nov, [facility] [address] [address] Nov, Hypertriglyceridemia E78.1 and Benign prostatic hyperplasia with lower urinary tract symptoms, unspecified morphology N40.1 [facility] [address] [address] Nov, Therapeutic drug monitoring Z51.81 ; Hypertriglyceridemia E78.1 ; Type 2 diabetes mellitus with unspecified complications E11.8 ; Tobacco abuse Z72.0 ; Chronic prescription opiate use Z79.891 and Chronically on benzodiazepine therapy Z79.899 [facility] [address] [place] [address] October, Neuropathy G62.9 [facility] [address] [place] [address] October, Neuropathy G62.9 [facility] [address] [place] [address] October, [facility] [address] [address] Sep, [facility] [address] [address] Sep, Anemia, unspecified type D64.9 [facility] [address] [id number] [address] Sep, Anemia, unspecified type D64.9 [facility] [address] [address] Aug, [facility] [address] [address] Aug, Cellulitis of left lower extremity L03.[address] [facility] [address] [place] [id number] [place] [address] 16 Aug, 2017 Cellulitis of left knee L03.[address] [facility] [address] [place] [id number] [place] [address] 15 Aug, 2017 Cellulitis of left knee L03.116 [facility] [address] [address] 06 Aug, 2017 Hypertriglyceridemia E78.1 [place] [address] [address] Aug, [place] [address] [address] Jul, Hypertriglyceridemia E78.1 [place] [address] [place] [id number] [place] [address] 08 Jul, 2017 Benign prostatic hyperplasia with lower urinary tract symptoms, unspecified morphology N40.1 [place] [address] [place] [id number] [place] [address] 02 Jul, 2017 [place] [address] [address] Jun, [place] [address] [place] [id number] [place] [address] Jun, Hypertriglyceridemia E78.1 [place] [address] [place] [id number] [place] [address] Jun, Type 2 diabetes mellitus with unspecified complications E11.8 ; Encounter for immunization Z23 ; Neuropathy G62.9 ; Other chronic pain G89.29 and 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 [place] [address] [place] [id number] [place] [address] Jun, [facility] [address] [place] [id number] [place] [address] May, [facility] [address] [place] [address] Apr, Benign prostatic hyperplasia with lower urinary tract symptoms, unspecified morphology N40.1 [facility] [address] [address] Apr, [facility] [address] [address] Mar, Other chronic pain G89.29 ; Anxiety F41.9 and Neuropathy G62.9 [facility] [address] [address] 09 Mar, 2017 Type 2 diabetes mellitus with unspecified complications E11.8 and Other chronic pain G89.29 [facility] [address] [address] Feb, Neuropathy G62.9 [place] [address] [address] 15 Feb, 2017 Other chronic pain G89.29 and Anxiety F41.9 [facility] [address] [address] Jan, [facility] [address] [address] Jan, Other chronic pain G89.29 and Anxiety F41.9 [place] [address] [address] Dec, [facility] [address] [address] Dec, Other chronic pain G89.29 and Anxiety F41.9 [facility] [address] [address] Dec, [facility] [address] [address] Dec, Primary insomnia F51.01 and Neuropathy G62.9 [facility] [address] [address] Nov, Anxiety F41.9 and Other chronic pain G89.29 [place] [address] [place] [id number] [place] [address] Nov, Type 2 diabetes mellitus with unspecified complications E11.8 ; Neuropathy G62.9 and Primary insomnia F51.01 [place] [address] [place] [id number] [place] [address] October, Anxiety F41.9 and Other chronic pain G89.29 [place] [address] [place] [id number] [place] [address] October, Other chronic pain G89.29 ; Type 2 diabetes mellitus with unspecified complications E11.8 and Hypoglycemia E16.2 [place] [address] [place] [id number] [place] [address] Sep, Other chronic pain G89.29 and Anxiety F41.9 [place] [address] [place] [id number] [place] [address] Sep, [place] [address] [place] [id number] [place] [address] Aug, Other chronic pain G89.29 and Anxiety F41.9 [place] [address] [place] [address] Aug, Rash R21 and Pain of right hip joint M25.551 [place] [address] [place] [address] Aug, [place] [address] [place] [id number] [place] [address] Aug, [place] [address] [place] [id number] [place] [address] Aug, Other chronic pain G89.29 and Anxiety F41.9 [facility] [address] [place] [address] Aug, Type 2 diabetes mellitus with unspecified complications E11.8 [facility] [address] [address] Jul, [facility] [address] [address] Jul, Bronchitis J40 and Non-intractable vomiting, presence of nausea not specified, unspecified vomiting type R11.10 [facility] [address] [address] Jul, [place] [address] [address] Jul, Other chronic pain G89.29 and Anxiety F41.9 [place] [address] [address] Jul, Type 2 diabetes mellitus with unspecified complications E11.8 [place] [address] [address] Jun, Type 2 diabetes mellitus with unspecified complications E11.8 [facility] [address] [id number] Jun, Dental caries K02.9 [facility] [address] [address] Jun, [facility] [address] [id number] Jun, Dental examination Z01.20 [facility] [address] [address] Jun, Right corneal abrasion, initial encounter S05.01XA [facility] [address] [address] Jun, [facility] [address] [address] Jun, Dental examination Z01.20 [facility] [address] [address] Jun, [facility] [address] [place] [id number] [place] [address] Jun, Perforated ear drum, right H72.91 ; Tooth pain K08.89 ; Type 2 diabetes mellitus with unspecified complications E11.8 and Other chronic pain G89.29 [place] [address] [place] [id number] [place] [address] Jun, [place] [address] [address] Jun, Other chronic pain G89.29 and Anxiety F41.9 [place] [address] [address] Jun, [place] [address] [place] [id number] [place] [address] May, Type 2 diabetes mellitus with unspecified complications E11.8 ; Benign prostatic hyperplasia with lower urinary tract symptoms, unspecified morphology N40.1 and Other chronic pain G89.29 [place] [address] [place] [id number] [place] [address] May, Other chronic pain G89.29 and Anxiety F41.9 [place] [address] [place] [id number] [place] [address] Apr, Other chronic pain G89.29 and Anxiety F41.9 [place] [address] [place] [id number] [place] [address] Mar, [place] [address] [place] [id number] [place] [address] Mar, Anxiety F41.9 and Other chronic pain G89.29 [place] [address] [place] [id number] [place] [address] Mar, Other chronic pain G89.29 and superintendent container 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 Z79.891 [place] [address] [place] [id number] [place] [address] Mar, Other chronic pain G89.29 ; jail 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 Z79.891 and Anxiety F41.9 [facility] [address] [place] [id number] [place] [address] 30 Feb, 2016 Bronchitis J40 [facility] [address] [place] [id number] [place] [address] 19 Feb, 2016 Other chronic pain G89.29 [facility] [address] [place] [id number] [place] [address] 15 Feb, 2016 Type 2 diabetes mellitus with unspecified complications E11.8 [place] [address] [address] Jan, Anxiety F41.9 [facility] [address] [place] [id number] [place] [address] Jan, [facility] [address] [address] Jan, [facility] [address] [place] [id number] [place] [address] Jan, Type 2 diabetes mellitus with unspecified complications E11.8 and Other chronic pain G89.29 [facility] [address] [place] [id number] [place] [address] Jan, [facility] [address] [place] [id number] [place] [address] Jan, Dehydration E86.0 and Type 2 diabetes mellitus with unspecified complications E11.8 [facility] [address] [place] [id number] [place] [address] Jan, [facility] [address] [place] [id number] [place] [address] Dec, Anxiety F41.9 [facility] [address] [place] [id number] [place] [address] Dec, Encounter to establish care Z76.89 ; Type 2 diabetes mellitus with unspecified complications E11.8 ; 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 ; Dorsalgia, unspecified M54.9 ; Other chronic pain G89.29 ; Insomnia, unspecified type G47.00 ; Neuropathy G62.9 and Bilateral tinnitus H93.13 [facility] [address] [facility] [id number] [address] Dec, IMMUNIZATIONS No Known Immunizations SOCIAL HISTORY Never Assessed REASON FOR VISIT Controlled Med Refill 12/12/17 PLAN OF CARE VITAL SIGNS MEDICATIONS Medication Instructions Dosage Frequency Start Date End Date Duration Status Alprazolam 1 MG Orally Once a day 1 tablet at bedtime 24h 28 days Active Hydrocodone-Acetaminophen 10-325 MG Orally 3 times a day 1 tablet 8h Nov, 28 days Active RESULTS No Results PROCEDURES [...]
--- OUTSIDE RECORDS SUMMARY | 2018-12-07 13:18 | XMS REPORT ---
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 Phone SARAH GOLDMAN Unavailable PROBLEMS Type Condition ICD9-CM Code TAR18-MJ Code Onset Dates Condition Status SNOMED Code Problem Anxiety F41.9 Active 96172586 Problem Benign prostatic hyperplasia with lower urinary tract symptoms, unspecified morphology N40.1 Active 959131965 Problem Other chronic pain G89.29 Active 51486301 Problem Hypertriglyceridemia E78.1 Active 808344217 Problem Type 2 diabetes mellitus with unspecified complications E11.8 Active 40357556 Problem Type 2 diabetes mellitus with hyperglycemia E11.65 Active 93723758 Problem 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 Active 523757557 Problem Hypoglycemia E16.2 Active 490802782 Problem Periodontitis K05.30 Active 59374437 Problem Neuropathy G62.9 Active 948708667 Problem Primary insomnia F51.01 Active 9824636 ALLERGIES No Information ENCOUNTERS Encounter Location Date Diagnosis [place] [id number] [place] [address] Jan, Neuropathy G62.9 [place] [address] [place] [id number] [place] [address] Jan, [place] [address] [place] [id number] [place] [phone] Jan, [place] [address] [place] [id number] [place] [phone] Jan, Increased urinary frequency R35.0 ; Glucosuria R81 ; nursing home 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 and Type 2 diabetes mellitus with hyperglycemia E11.65 [place] [address] [place] [id number] [place] [address] Dec, Hypertriglyceridemia E78.1 [facility] [address] [address] Dec, [facility] [place] [id number] [place] [address] Nov, [facility] [address] [address] Nov, Hypertriglyceridemia E78.1 and Benign prostatic hyperplasia with lower urinary tract symptoms, unspecified morphology N40.1 [facility] [address] [address] Nov, Therapeutic drug monitoring Z51.81 ; Hypertriglyceridemia E78.1 ; Type 2 diabetes mellitus with unspecified complications E11.8 ; Tobacco abuse Z72.0 ; Chronic prescription opiate use Z79.891 and Chronically on benzodiazepine therapy Z79.899 [facility] [place] [address] [place] [address] October, Neuropathy G62.9 [facility] [address] [place] [address] October, Neuropathy G62.9 [facility] [place] [address] [place] [address] October, [facility] [place] [address] [address] Sep, [facility] [place] [address] [address] Sep, Anemia, unspecified type D64.9 [facility] [address] [id number] [address] Sep, Anemia, unspecified type D64.9 [facility] [address] [address] Aug, [facility] [place] [address] [address] Aug, Cellulitis of left lower extremity L03.116 [facility] [address] [place] [id number] [place] [address] 16 Aug, 2017 Cellulitis of left knee L03.116 [facility] [address] [place] [id number] [place] [address] 15 Aug, 2017 Cellulitis of left knee L03.116 [facility] [address] [address] 06 Aug, 2017 Hypertriglyceridemia E78.1 [place] [address] [address] Aug, [place] [address] [address] Jul, Hypertriglyceridemia E78.1 [place] [address] [place] [id number] [place] [phone] 08 Jul, 2017 Benign prostatic hyperplasia with lower urinary tract symptoms, unspecified morphology N40.1 [place] [address] [place] [id number] [place] [address] 02 Jul, 2017 [place] [address] [address] Jun, [place] [address] [place] [id number] [place] [address] Jun, Hypertriglyceridemia E78.1 [place] [address] [place] [id number] [place] [address] Jun, Type 2 diabetes mellitus with unspecified complications E11.8 ; Encounter for immunization Z23 ; Neuropathy G62.9 ; Other chronic pain G89.29 and 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 [place] [address] [place] [id number] [place] [address] Jun, [facility] [address] [place] [id number] [place] [address] May, [facility] [address] [place] [address] Apr, Benign prostatic hyperplasia with lower urinary tract symptoms, unspecified morphology N40.1 [facility] [place] [address] [address] Apr, [facility] [place] [address] [address] Mar, Other chronic pain G89.29 ; Anxiety F41.9 and Neuropathy G62.9 [facility] [address] [address] 09 Mar, 2017 Type 2 diabetes mellitus with unspecified complications E11.8 and Other chronic pain G89.29 [facility] [place] [address] [address] Feb, Neuropathy G62.9 [place] [address] [address] 15 Feb, 2017 Other chronic pain G89.29 and Anxiety F41.9 [facility] [address] [address] Jan, [facility] [address] [address] Jan, Other chronic pain G89.29 and Anxiety F41.9 [place] [address] [address] Dec, [facility] [address] [address] Dec, Other chronic pain G89.29 and Anxiety F41.9 [facility] [place] [address] [address] Dec, [facility] [place] [address] [address] Dec, Primary insomnia F51.01 and Neuropathy G62.9 [facility] [place] [address] [address] Nov, Anxiety F41.9 and Other chronic pain G89.29 [place] [address] [place] [id number] [place] [address] Nov, Type 2 diabetes mellitus with unspecified complications E11.8 ; Neuropathy G62.9 and Primary insomnia F51.01 [place] [address] [place] [id number] [place] [address] October, Anxiety F41.9 and Other chronic pain G89.29 [place] [address] [place] [id number] [place] [address] October, Other chronic pain G89.29 ; Type 2 diabetes mellitus with unspecified complications E11.8 and Hypoglycemia E16.2 [place] [address] [place] [id number] [place] [address] Sep, Other chronic pain G89.29 and Anxiety F41.9 [place] [address] [place] [id number] [place] [address] Sep, [place] [address] [place] [id number] [place] [address] Aug, Other chronic pain G89.29 and Anxiety F41.9 [place] [address] [place] [address] Aug, Rash R21 and Pain of right hip joint M25.551 [place] [address] [place] [address] Aug, [place] [address] [place] [id number] [place] [address] Aug, [place] [address] [place] [id number] [place] [address] Aug, Other chronic pain G89.29 and Anxiety F41.9 [facility] [place] [address] [place] [address] Aug, Type 2 diabetes mellitus with unspecified complications E11.8 [facility] [place] [address] [address] Jul, [facility] [place] [address] [address] Jul, Bronchitis J40 and Non-intractable vomiting, presence of nausea not specified, unspecified vomiting type R11.10 [facility] [place] [address] [address] Jul, [place] [address] [address] Jul, Other chronic pain G89.29 and Anxiety F41.9 [place] [address] [address] Jul, Type 2 diabetes mellitus with unspecified complications E11.8 [place] [address] [address] Jun, Type 2 diabetes mellitus with unspecified complications E11.8 [facility] [address] [id number] Jun, Dental caries K02.9 [facility] [address] [address] Jun, [facility] [address] [id number] Jun, Dental examination Z01.20 [facility] [address] [address] Jun, Right corneal abrasion, initial encounter S05.01XA [facility] [address] [address] Jun, [facility] [address] [address] Jun, Dental examination Z01.20 [facility] [place] [address] [address] Jun, [facility] [address] [place] [id number] [place] [address] Jun, Perforated ear drum, right H72.91 ; Tooth pain K08.89 ; Type 2 diabetes mellitus with unspecified complications E11.8 and Other chronic pain G89.29 [place] [address] [place] [id number] [place] [address] Jun, [place] [address] [address] Jun, Other chronic pain G89.29 and Anxiety F41.9 [place] [address] [address] Jun, [place] [address] [place] [id number] [place] [address] May, Type 2 diabetes mellitus with unspecified complications E11.8 ; Benign prostatic hyperplasia with lower urinary tract symptoms, unspecified morphology N40.1 and Other chronic pain G89.29 [place] [address] [place] [id number] [place] [address] May, Other chronic pain G89.29 and Anxiety F41.9 [place] [address] [place] [id number] [place] [address] Apr, Other chronic pain G89.29 and Anxiety F41.9 [place] [address] [place] [id number] [place] [address] Mar, [place] [address] [place] [id number] [place] [address] Mar, Anxiety F41.9 and Other chronic pain G89.29 [place] [address] [place] [id number] [place] [address] Mar, Other chronic pain G89.29 and long term care administrator 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 Z79.891 [place] [address] [place] [id number] [place] [address] Mar, Other chronic pain G89.29 ; nursing home 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 Z79.891 and Anxiety F41.9 [facility] [address] [place] [id number] [place] [address] 30 Feb, 2016 Bronchitis J40 [facility] [address] [place] [id number] [place] [address] 19 Feb, 2016 Other chronic pain G89.29 [facility] [address] [place] [id number] [place] [address] 15 Feb, 2016 Type 2 diabetes mellitus with unspecified complications E11.8 [place] [address] [address] Jan, Anxiety F41.9 [facility] [address] [place] [id number] [place] [address] Jan, [facility] [address] [address] Jan, [facility] [address] [place] [id number] [place] [address] Jan, Type 2 diabetes mellitus with unspecified complications E11.8 and Other chronic pain G89.29 [facility] [address] [place] [id number] [place] [address] Jan, [facility] [address] [place] [id number] [place] [address] Jan, Dehydration E86.0 and Type 2 diabetes mellitus with unspecified complications E11.8 [facility] [address] [place] [id number] [place] [address] Jan, [facility] [address] [place] [id number] [place] [address] Dec, Anxiety F41.9 [facility] [address] [place] [id number] [place] [address] Dec, Encounter to establish care Z76.89 ; Type 2 diabetes mellitus with unspecified complications E11.8 ; 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 ; Dorsalgia, unspecified M54.9 ; Other chronic pain G89.29 ; Insomnia, unspecified type G47.00 ; Neuropathy G62.9 and Bilateral tinnitus H93.13 [facility] [address] [facility] [id number] [place] [address] Dec, IMMUNIZATIONS No Known Immunizations SOCIAL HISTORY Never Assessed REASON FOR VISIT Controlled Med Refill 01/09/18 PLAN OF CARE VITAL SIGNS MEDICATIONS Medication Instructions Dosage Frequency Start Date End Date Duration Status Alprazolam 1 MG Orally Once a day 1 tablet at bedtime 24h 28 days Active Hydrocodone-Acetaminophen 10-325 MG Orally 3 times a day 1 tablet 8h Dec, 28 days Active RESULTS No Results PROCEDURES [...]
--- OUTSIDE RECORDS SUMMARY | 2018-12-07 13:18 | XMS REPORT ---
Author Author SARAH GOLDMAN Organization [facility] Address [address] [place] [address] Care Team Providers Care Epic Ambulatory Analyst Name Role Phone SARAH GOLDMAN Unavailable PROBLEMS Type Condition ICD9-CM Code DTD21-OM Code Onset Dates Condition Status SNOMED Code Problem Anxiety F41.9 Active 48441938 Problem Benign prostatic hyperplasia with lower urinary tract symptoms, unspecified morphology N40.1 Active 275457625 Problem Other chronic pain G89.29 Active 09701077 Problem Hypertriglyceridemia E78.1 Active 307650608 Problem Type 2 diabetes mellitus with unspecified complications E11.8 Active 06832916 Problem Type 2 diabetes mellitus with hyperglycemia E11.65 Active 62098780 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 Active 709994176 Problem Hypoglycemia E16.2 Active 127039483 Problem Periodontitis K05.30 Active 31365677 Problem Neuropathy G62.9 Active 413341124 Problem Primary insomnia F51.01 Active 0121140 ALLERGIES No Information ENCOUNTERS Encounter Location Date Diagnosis [place] [id number] [id number] [place] [address] Feb, Neuropathy G62.9 [place] [id number] [place] [address] Jan, Neuropathy G62.9 [facility] [id number] [place] [address] Jan, [place] [address] [address] Jan, [place] [id number] [place] [address] Jan, Increased urinary frequency R35.0 ; Glucosuria R81 ; 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 and Type 2 diabetes mellitus with hyperglycemia E11.65 [facility] [address] [address] Dec, Hypertriglyceridemia E78.1 [facility] [id number] [address] Dec, [facility] [id number] [place] [address] Nov, [facility] [id number] [place] [address] Nov, Hypertriglyceridemia E78.1 and Benign prostatic hyperplasia with lower urinary tract symptoms, unspecified morphology N40.1 [facility] [id number] [place] [address] Nov, Therapeutic drug monitoring Z51.81 ; Hypertriglyceridemia E78.1 ; Type 2 diabetes mellitus with unspecified complications E11.8 ; Tobacco abuse Z72.0 ; Chronic prescription opiate use Z79.891 and Chronically on benzodiazepine therapy Z79.899 [facility] [id number] [place] [address] October, Neuropathy G62.9 [facility] [id number] [place] [address] October, Neuropathy G62.9 [facility] [id number] [place] [address] October, [facility] [id number] [place] [address] Sep, [facility] [address] [place] [id number] [place] [address] Sep, Anemia, unspecified type D64.9 [facility] [address] [id number] [address] Sep, Anemia, unspecified type D64.9 [facility] [address] [address] Aug, [facility] [id number] [place] [address] Aug, Cellulitis of left lower extremity L03.116 [facility] [id number] [place] [address] Aug, Cellulitis of left knee L03.116 [facility] [id number] [place] [address] Aug, Cellulitis of left knee L03.116 [facility] [id number] [place] [address] Aug, Hypertriglyceridemia E78.1 [place] [id number] [place] [address] Aug, [place] [id number] [place] [address] Jul, Hypertriglyceridemia E78.1 [place] [id number] [place] [address] Jul, Benign prostatic hyperplasia with lower urinary tract symptoms, unspecified morphology N40.1 [place] [id number] [place] [address] 02 Jul, 2017 [place] [id number] [place] [address] Jun, [place] [id number] [place] [address] Jun, Hypertriglyceridemia E78.1 [place] [id number] [place] [address] Jun, Type 2 diabetes mellitus with unspecified complications E11.8 ; Encounter for immunization Z23 ; Neuropathy G62.9 ; Other chronic pain G89.29 and correction 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 [place] [id number] [place] [address] Jun, [place] [id number] [place] [address] May, [facility] [id number] [place] [address] Apr, Benign prostatic hyperplasia with lower urinary tract symptoms, unspecified morphology N40.1 [facility] [id number] [place] [address] Apr, [facility] [id number] [place] [address] Mar, Other chronic pain G89.29 ; Anxiety F41.9 and Neuropathy G62.9 [facility] [id number] [place] [address] 09 Mar, 2017 Type 2 diabetes mellitus with unspecified complications E11.8 and Other chronic pain G89.29 [facility] [id number] [place] [address] Feb, Neuropathy G62.9 [facility] [id number] [place] [address] 15 Feb, 2017 Other chronic pain G89.29 and Anxiety F41.9 [facility] [id number] [place] [address] Jan, [facility] [id number] [place] [address] Jan, Other chronic pain G89.29 and Anxiety F41.9 [facility] [id number] [place] [address] Dec, [facility] [id number] [place] [address] Dec, Other chronic pain G89.29 and Anxiety F41.9 [facility] [id number] [place] [address] Dec, [facility] [id number] [place] [address] Dec, Primary insomnia F51.01 and Neuropathy G62.9 [facility] [id number] [place] [address] Nov, Anxiety F41.9 and Other chronic pain G89.29 [place] [id number] [place] [address] Nov, Type 2 diabetes mellitus with unspecified complications E11.8 ; Neuropathy G62.9 and Primary insomnia F51.01 [place] [id number] [place] [address] October, Anxiety F41.9 and Other chronic pain G89.29 [place] [id number] [place] [address] October, Other chronic pain G89.29 ; Type 2 diabetes mellitus with unspecified complications E11.8 and Hypoglycemia E16.2 [place] [id number] [place] [address] Sep, Other chronic pain G89.29 and Anxiety F41.9 [place] [id number] [place] [address] Sep, [place] [id number] [place] [address] Aug, Other chronic pain G89.29 and Anxiety F41.9 [place] [id number] [place] [address] Aug, Rash R21 and Pain of right hip joint M25.551 [facility] [id number] [place] [address] Aug, [place] [id number] [place] [address] Aug, [place] [id number] [place] [address] Aug, Other chronic pain G89.29 and Anxiety F41.9 [place] [address] [id number] [place] [address] Aug, Type 2 diabetes mellitus with unspecified complications E11.8 [facility] [id number] [place] [address] Jul, [facility] [address] [address] Jul, Bronchitis J40 and Non-intractable vomiting, presence of nausea not specified, unspecified vomiting type R11.10 [facility] [address] [address] Jul, [facility] [address] [address] Jul, Other chronic pain G89.29 and Anxiety F41.9 [facility] [address] [address] Jul, Type 2 diabetes mellitus with unspecified complications E11.8 [facility] [address] [address] Jun, Type 2 diabetes mellitus with unspecified complications E11.8 [facility] [address] [id number] Jun, Dental caries K02.9 [facility] [id number] [place] [address] Jun, [facility] [address] [id number] Jun, Dental examination Z01.20 [facility] [id number] [place] [address] Jun, Right corneal abrasion, initial encounter S05.01XA [facility] [id number] [place] [address] Jun, [facility] [address] [address] Jun, Dental examination Z01.20 [place] [id number] [place] [address] Jun, [place] [id number] [place] [address] Jun, Perforated ear drum, right H72.91 ; Tooth pain K08.89 ; Type 2 diabetes mellitus with unspecified complications E11.8 and Other chronic pain G89.29 [place] [id number] [place] [address] Jun, [place] [id number] [place] [address] Jun, Other chronic pain G89.29 and Anxiety F41.9 [place] [id number] [place] [address] Jun, [place] [id number] [place] [address] May, Type 2 diabetes mellitus with unspecified complications E11.8 ; Benign prostatic hyperplasia with lower urinary tract symptoms, unspecified morphology N40.1 and Other chronic pain G89.29 [place] [id number] [place] [address] May, Other chronic pain G89.29 and Anxiety F41.9 [place] [id number] [place] [address] Apr, Other chronic pain G89.29 and Anxiety F41.9 [place] [id number] [place] [address] Mar, [place] [id number] [place] [address] Mar, Anxiety F41.9 and Other chronic pain G89.29 [place] [id number] [place] [address] Mar, Other chronic pain G89.29 and termite control servicer 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 Z79.891 [facility] [id number] [place] [address] 14 Mar, 2016 Other chronic pain G89.29 ; correction 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 Z79.891 and Anxiety F41.9 [facility] [id number] [place] [address] 30 Feb, 2016 Bronchitis J40 [facility] [id number] [place] [address] 19 Feb, 2016 Other chronic pain G89.29 [facility] [id number] [place] [address] 15 Feb, 2016 Type 2 diabetes mellitus with unspecified complications E11.8 [facility] [id number] [place] [address] Jan, Anxiety F41.9 [facility] [id number] [place] [address] Jan, [facility] [id number] [place] [address] Jan, [facility] [id number] [place] [address] Jan, Type 2 diabetes mellitus with unspecified complications E11.8 and Other chronic pain G89.29 [facility] [id number] [place] [address] Jan, [facility] [id number] [place] [address] Jan, Dehydration E86.0 and Type 2 diabetes mellitus with unspecified complications E11.8 [facility] [id number] [place] [address] Jan, [facility] [id number] [place] [address] Dec, Anxiety F41.9 [facility] [address] [id number] [place] [address] Dec, Encounter to establish care Z76.89 ; Type 2 diabetes mellitus with unspecified complications E11.8 ; correction 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 ; Dorsalgia, unspecified M54.9 ; Other chronic pain G89.29 ; Insomnia, unspecified type G47.00 ; Neuropathy G62.9 and Bilateral tinnitus H93.13 [facility] [address] [facility] [id number] [place] [address] Dec, IMMUNIZATIONS No Known Immunizations SOCIAL HISTORY Never Assessed REASON FOR VISIT Controlled Med Refill 02/06/18 PLAN OF CARE VITAL SIGNS MEDICATIONS Medication Instructions Dosage Frequency Start Date End Date Duration Status Hydrocodone-Acetaminophen 10-325 MG Orally 3 times a day 1 tablet 8h Jan, 28 days Active Alprazolam 1 MG Orally Once a day 1 tablet at bedtime 24h 28 days Active RESULTS No Results PROCEDURES No Known procedures INSTRUCTIONS MEDICATIONS ADMINISTERED No Known Medications MEDICAL (GENERAL) HISTORY Type Description Date Medical History Type 2 diabetes mellitus without complications Medical History 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
--- OUTSIDE RECORDS SUMMARY | 2018-12-07 13:18 | XMS REPORT ---
Author Author SARAH GOLDMAN Organization [facility] Address [address] [place] [address] Care Team Providers Care Rubber Cutter Name Role Phone SARAH GOLDMAN Unavailable PROBLEMS Type Condition ICD9-CM Code LUU01-VR Code Onset Dates Condition Status SNOMED Code Problem Anxiety F41.9 Active 55849708 Problem Benign prostatic hyperplasia with lower urinary tract symptoms, unspecified morphology N40.1 Active 028834284 Problem Other chronic pain G89.29 Active 48311165 Problem Hypertriglyceridemia E78.1 Active 099376333 Problem Type 2 diabetes mellitus with unspecified complications E11.8 Active 31176942 Problem Type 2 diabetes mellitus with hyperglycemia E11.65 Active 69182991 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 Active 959071590 Problem Hypoglycemia E16.2 Active 886334628 Problem Periodontitis K05.30 Active 49032975 Problem Neuropathy G62.9 Active 634492895 Problem Primary insomnia F51.01 Active 3634403 ALLERGIES No Information ENCOUNTERS Encounter Location Date Diagnosis [place] [id number] [place] [address] Jan, Neuropathy G62.9 [place] [address] [place] [id number] [place] [address] Jan, [place] [address] [place] [id number] [place] [phone] Jan, [place] [address] [place] [id number] [place] [phone] Jan, Increased urinary frequency R35.0 ; Glucosuria R81 ; USP 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 and Type 2 diabetes mellitus with hyperglycemia E11.65 [place] [address] [place] [id number] [place] [address] Dec, Hypertriglyceridemia E78.1 [facility] [address] [address] Dec, [facility] [address] [place] [address] Nov, [facility] [address] [address] Nov, Hypertriglyceridemia E78.1 and Benign prostatic hyperplasia with lower urinary tract symptoms, unspecified morphology N40.1 [facility] [address] [address] Nov, Therapeutic drug monitoring Z51.81 ; Hypertriglyceridemia E78.1 ; Type 2 diabetes mellitus with unspecified complications E11.8 ; Tobacco abuse Z72.0 ; Chronic prescription opiate use Z79.891 and Chronically on benzodiazepine therapy Z79.899 [facility] [address] [place] [address] October, Neuropathy G62.9 [facility] [address] [place] [address] October, Neuropathy G62.9 [facility] [address] [place] [address] October, [facility] [address] [address] Sep, [facility] [address] [address] Sep, Anemia, unspecified type D64.9 [facility] [address] [id number] [address] Sep, Anemia, unspecified type D64.9 [facility] [address] [address] Aug, [facility] [address] [address] Aug, Cellulitis of left lower extremity L03.116 [facility] [address] [place] [id number] [place] [phone] 16 Aug, 2017 Cellulitis of left knee L03.116 [facility] [address] [place] [id number] [place] [address] 15 Aug, 2017 Cellulitis of left knee L03.116 [facility] [address] [address] 06 Aug, 2017 Hypertriglyceridemia E78.1 [place] [address] [address] Aug, [place] [address] [address] Jul, Hypertriglyceridemia E78.1 [place] [address] [place] [id number] [place] [address] 08 Jul, 2017 Benign prostatic hyperplasia with lower urinary tract symptoms, unspecified morphology N40.1 [place] [address] [place] [id number] [place] [phone] 02 Jul, 2017 [place] [address] [address] Jun, [place] [address] [place] [id number] [place] [address] Jun, Hypertriglyceridemia E78.1 [place] [address] [place] [id number] [place] [address] Jun, Type 2 diabetes mellitus with unspecified complications E11.8 ; Encounter for immunization Z23 ; Neuropathy G62.9 ; Other chronic pain G89.29 and 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 [place] [address] [place] [id number] [place] [address] Jun, [facility] [address] [place] [id number] [place] [address] May, [facility] [address] [place] [address] Apr, Benign prostatic hyperplasia with lower urinary tract symptoms, unspecified morphology N40.1 [facility] [address] [address] Apr, [facility] [address] [address] Mar, Other chronic pain G89.29 ; Anxiety F41.9 and Neuropathy G62.9 [facility] [address] [address] 09 Mar, 2017 Type 2 diabetes mellitus with unspecified complications E11.8 and Other chronic pain G89.29 [facility] [address] [address] Feb, Neuropathy G62.9 [place] [address] [address] 15 Feb, 2017 Other chronic pain G89.29 and Anxiety F41.9 [facility] [address] [address] Jan, [facility] [address] [address] Jan, Other chronic pain G89.29 and Anxiety F41.9 [place] [address] [address] Dec, [facility] [address] [address] Dec, Other chronic pain G89.29 and Anxiety F41.9 [facility] [address] [address] Dec, [facility] [address] [address] Dec, Primary insomnia F51.01 and Neuropathy G62.9 [facility] [address] [address] Nov, Anxiety F41.9 and Other chronic pain G89.29 [place] [address] [place] [id number] [place] [address] Nov, Type 2 diabetes mellitus with unspecified complications E11.8 ; Neuropathy G62.9 and Primary insomnia F51.01 [place] [address] [place] [id number] [place] [address] October, Anxiety F41.9 and Other chronic pain G89.29 [place] [address] [place] [id number] [place] [address] October, Other chronic pain G89.29 ; Type 2 diabetes mellitus with unspecified complications E11.8 and Hypoglycemia E16.2 [place] [address] [place] [id number] [place] [address] Sep, Other chronic pain G89.29 and Anxiety F41.9 [place] [address] [place] [id number] [place] [address] Sep, [place] [address] [place] [id number] [place] [address] Aug, Other chronic pain G89.29 and Anxiety F41.9 [place] [address] [place] [address] Aug, Rash R21 and Pain of right hip joint M25.551 [place] [address] [place] [address] Aug, [place] [address] [place] [id number] [place] [address] Aug, [place] [address] [place] [id number] [place] [address] Aug, Other chronic pain G89.29 and Anxiety F41.9 [facility] [address] [place] [address] Aug, Type 2 diabetes mellitus with unspecified complications E11.8 [facility] [address] [address] Jul, [facility] [address] [address] Jul, Bronchitis J40 and Non-intractable vomiting, presence of nausea not specified, unspecified vomiting type R11.10 [facility] [address] [address] Jul, [place] [address] [address] Jul, Other chronic pain G89.29 and Anxiety F41.9 [place] [address] [address] Jul, Type 2 diabetes mellitus with unspecified complications E11.8 [place] [address] [address] Jun, Type 2 diabetes mellitus with unspecified complications E11.8 [facility] [address] [id number] Jun, Dental caries K02.9 [facility] [address] [address] Jun, [facility] [address] [id number] Jun, Dental examination Z01.20 [facility] [address] [address] Jun, Right corneal abrasion, initial encounter S05.01XA [facility] [address] [address] Jun, [facility] [address] [address] Jun, Dental examination Z01.20 [facility] [address] [address] Jun, [facility] [address] [place] [id number] [place] [address] Jun, Perforated ear drum, right H72.91 ; Tooth pain K08.89 ; Type 2 diabetes mellitus with unspecified complications E11.8 and Other chronic pain G89.29 [place] [address] [place] [id number] [place] [address] Jun, [place] [address] [address] Jun, Other chronic pain G89.29 and Anxiety F41.9 [place] [address] [address] Jun, [place] [address] [place] [id number] [place] [address] May, Type 2 diabetes mellitus with unspecified complications E11.8 ; Benign prostatic hyperplasia with lower urinary tract symptoms, unspecified morphology N40.1 and Other chronic pain G89.29 [place] [address] [place] [id number] [place] [address] May, Other chronic pain G89.29 and Anxiety F41.9 [place] [address] [place] [id number] [place] [address] Apr, Other chronic pain G89.29 and Anxiety F41.9 [place] [address] [place] [id number] [place] [address] Mar, [place] [address] [place] [id number] [place] [address] Mar, Anxiety F41.9 and Other chronic pain G89.29 [place] [address] [place] [id number] [place] [address] Mar, Other chronic pain G89.29 and intermodal customer service 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 Z79.891 [place] [address] [place] [id number] [place] [address] Mar, Other chronic pain G89.29 ; USP 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 Z79.891 and Anxiety F41.9 [facility] [address] [place] [id number] [place] [address] 30 Feb, 2016 Bronchitis J40 [facility] [address] [place] [id number] [place] [address] 19 Feb, 2016 Other chronic pain G89.29 [facility] [address] [place] [id number] [place] [address] 15 Feb, 2016 Type 2 diabetes mellitus with unspecified complications E11.8 [place] [address] [address] Jan, Anxiety F41.9 [facility] [address] [place] [id number] [place] [address] Jan, [facility] [address] [address] Jan, [facility] [address] [place] [id number] [place] [address] Jan, Type 2 diabetes mellitus with unspecified complications E11.8 and Other chronic pain G89.29 [facility] [address] [place] [id number] [place] [address] Jan, [facility] [address] [place] [address] [place] [address] Jan, Dehydration E86.0 and Type 2 diabetes mellitus with unspecified complications E11.8 [facility] [address] [place] [id number] [place] [address] Jan, [facility] [address] [place] [address] [place] [address] Dec, Anxiety F41.9 [facility] [address] [place] [address] [place] [address] Dec, Encounter to establish care Z76.89 ; Type 2 diabetes mellitus with unspecified complications E11.8 ; 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 ; Dorsalgia, unspecified M54.9 ; Other chronic pain G89.29 ; Insomnia, unspecified type G47.00 ; Neuropathy G62.9 and Bilateral tinnitus H93.13 [facility] [address] [facility] [id number] [place] [address] Dec, IMMUNIZATIONS No Known Immunizations SOCIAL HISTORY Never Assessed REASON FOR VISIT Repository PLAN OF CARE VITAL SIGNS MEDICATIONS Medication Instructions Dosage Frequency Start Date End Date Duration Status Simvastatin 40 mg Orally Once a day 1 tablet in the evening 24h Nov, Active RESULTS No Results PROCEDURES No Known procedures INSTRUCTIONS MEDICATIONS ADMINISTERED No Known Medications MEDICAL (GENERAL) HISTORY Type Description Date Medical History Type 2 diabetes mellitus without complications Medical History USP (current) use of insulin Medical History Other [...]
--- OUTSIDE RECORDS SUMMARY | 2018-12-07 13:19 | XMS REPORT ---
Author Author SARAH GOLDMAN Organization [facility] Address [address] [place] [address] Care Team Providers Care Ply Cutter Name Role Phone SARAH GOLDMAN Unavailable PROBLEMS Type Condition ICD9-CM Code [id number] Code Onset Dates Condition Status SNOMED Code Problem Anxiety F41.9 Active 26491723 Problem Benign prostatic hyperplasia with lower urinary tract symptoms, unspecified morphology N40.1 Active 541003518 Problem Other chronic pain G89.29 Active 33658109 Problem Hypertriglyceridemia E78.1 Active 470561385 Problem Type 2 diabetes mellitus with unspecified complications E11.8 Active 78622221 Problem Type 2 diabetes mellitus with hyperglycemia E11.65 Active 70672032 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 Active 293096849 Problem Hypoglycemia E16.2 Active 821623071 Problem Periodontitis K05.30 Active 77725008 Problem Neuropathy G62.9 Active 586200346 Problem Primary insomnia F51.01 Active 5679918 ALLERGIES No Known Allergies ENCOUNTERS Encounter Location Date Diagnosis [place] [id number] [place] [address] Jan, Neuropathy G62.9 [place] [id number] [place] [address] Jan, [place] [id number] [place] [address] Jan, [place] [id number] [place] [address] Jan, Increased urinary frequency R35.0 ; Glucosuria R81 ; [employer] 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 and Type 2 diabetes mellitus with hyperglycemia E11.65 [place] [id number] [place] [address] Dec, Hypertriglyceridemia E78.1 [facility] [address] [place] [address] Dec, [facility] [address] [place] [address] Nov, [facility] [address], [place] [address] Nov, Hypertriglyceridemia E78.1 and Benign prostatic hyperplasia with lower urinary tract symptoms, unspecified morphology N40.1 [facility] [address], [place] [address] Nov, Therapeutic drug monitoring Z51.81 ; Hypertriglyceridemia E78.1 ; Type 2 diabetes mellitus with unspecified complications E11.8 ; Tobacco abuse Z72.0 ; Chronic prescription opiate use Z79.891 and Chronically on benzodiazepine therapy Z79.899 [facility] [address] [place] [address] October, Neuropathy G62.9 [facility] [address] [place] [address] October, Neuropathy G62.9 [facility] [address] [place] [address] October, [facility] [address], [place] [address] Sep, [facility] [address], [place] [address] Sep, Anemia, unspecified type D64.9 [facility] [id number] [address] Sep, Anemia, unspecified type D64.9 [facility] [address], [place] [address] Aug, [facility] [address] [place] [address] Aug, Cellulitis of left lower extremity L03.116 [facility] [address] [place] [address] 16 Aug, 2017 Cellulitis of left knee L03.116 [facility] [id number] [place] [address] 15 Aug, 2017 Cellulitis of left knee L03.116 [facility] [id number] [place] [address] 06 Aug, 2017 Hypertriglyceridemia E78.1 [facility] [id number] [place] [address] 02 Aug, 2017 [facility] [id number] [place] [address] Jul, Hypertriglyceridemia E78.1 [place] [id number] [place] [address] 08 Jul, 2017 Benign prostatic hyperplasia with lower urinary tract symptoms, unspecified morphology N40.1 [facility] [id number] [place] [address] 02 Jul, 2017 [place] [id number] [place] [address] Jun, [place] [id number] [place] [address] Jun, Hypertriglyceridemia E78.1 [place] [id number] [place] [address] Jun, Type 2 diabetes mellitus with unspecified complications E11.8 ; Encounter for immunization Z23 ; Neuropathy G62.9 ; Other chronic pain G89.29 and snf 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 [facility] [id number] [place] [address] Jun, [facility] [id number] [place] [address] May, [facility] [address] [place] [address] Apr, Benign prostatic hyperplasia with lower urinary tract symptoms, unspecified morphology N40.1 [facility] [address] [address] Apr, [facility] [address] [address] 13 Mar, 2017 Other chronic pain G89.29 ; Anxiety F41.9 and Neuropathy G62.9 [facility] [address] [address] 09 Mar, 2017 Type 2 diabetes mellitus with unspecified complications E11.8 and Other chronic pain G89.29 [facility] [address] [address] 29 Feb, 2017 Neuropathy G62.9 [facility] [address] [address] 15 Feb, 2017 Other chronic pain G89.29 and Anxiety F41.9 [facility] [address] [address] Jan, [facility] [address] [address] Jan, Other chronic pain G89.29 and Anxiety F41.9 [facility] [address] [address] Dec, [facility] [address] [address] Dec, Other chronic pain G89.29 and Anxiety F41.9 [facility] [address] [address] Dec, [facility] [address] [address] Dec, Primary insomnia F51.01 and Neuropathy G62.9 [facility] [address] [address] Nov, Anxiety F41.9 and Other chronic pain G89.29 [place] [id number] [place] [address] 08 Nov, 2016 Type 2 diabetes mellitus with unspecified complications E11.8 ; Neuropathy G62.9 and Primary insomnia F51.01 [facility] [id number] [place] [address] October, Anxiety F41.9 and Other chronic pain G89.29 [place] [id number] [place] [address] October, Other chronic pain G89.29 ; Type 2 diabetes mellitus with unspecified complications E11.8 and Hypoglycemia E16.2 [place] [id number] [place] [address] Sep, Other chronic pain G89.29 and Anxiety F41.9 [place] [id number] [place] [address] Sep, [place] [id number] [place] [address] Aug, Other chronic pain G89.29 and Anxiety F41.9 [place] [address] [place] [address] Aug, Rash R21 and Pain of right hip joint M25.551 [place] [id number] [place] [address] Aug, [facility] [id number] [place] [address] Aug, [place] [id number] [place] [address] Aug, Other chronic pain G89.29 and Anxiety F41.9 [facility] [address] [place] [address] Aug, Type 2 diabetes mellitus with unspecified complications E11.8 [facility] [address] [address] Jul, [facility] [address] [address] Jul, Bronchitis J40 and Non-intractable vomiting, presence of nausea not specified, unspecified vomiting type R11.10 [facility] [address] [address] Jul, [place] [address] [address] Jul, Other chronic pain G89.29 and Anxiety F41.9 [place] [address] [address] Jul, Type 2 diabetes mellitus with unspecified complications E11.8 [place] [address] [address] Jun, Type 2 diabetes mellitus with unspecified complications E11.8 [facility] [address] [id number] Jun, Dental caries K02.9 [facility] [address] [address] Jun, [facility] [address] [id number] Jun, Dental examination Z01.20 [facility] [address] [address] Jun, Right corneal abrasion, initial encounter S05.01XA [facility] [address] [address] Jun, [facility] [address] [address] Jun, Dental examination Z01.20 [facility] [address] [address] Jun, [facility] [id number] [place] [address] Jun, Perforated ear drum, right H72.91 ; Tooth pain K08.89 ; Type 2 diabetes mellitus with unspecified complications E11.8 and Other chronic pain G89.29 [place] [id number] [place] [address] Jun, [place] [address] [address] Jun, Other chronic pain G89.29 and Anxiety F41.9 [place] [address] [address] Jun, [place] [id number] [place] [address] May, Type 2 diabetes mellitus with unspecified complications E11.8 ; Benign prostatic hyperplasia with lower urinary tract symptoms, unspecified morphology N40.1 and Other chronic pain G89.29 [place] [id number] [place] [address] May, Other chronic pain G89.29 and Anxiety F41.9 [place] [id number] [place] [address] 14 Apr, 2016 Other chronic pain G89.29 and Anxiety F41.9 [place] [id number] [place] [address] Mar, [place] [id number] [place] [address] 17 Mar, 2016 Anxiety F41.9 and Other chronic pain G89.29 [place] [id number] [place] [address] 14 Mar, 2016 Other chronic pain G89.29 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 [place] [id number] [place] [address] Mar, Other chronic pain G89.29 ; [employer] 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 Z79.891 and Anxiety F41.9 [facility] [id number] [place] [address] 30 Feb, 2016 Bronchitis J40 [facility] [id number] [place] [address] 19 Feb, 2016 Other chronic pain G89.29 [facility] [address] [address] 15 Feb, 2016 Type 2 diabetes mellitus with unspecified complications E11.8 [place] [address] [address] Jan, Anxiety F41.9 [facility] [id number] [place] [address] Jan, [facility] [address] [address] Jan, [facility] [id number] [place] [address] Jan, Type 2 diabetes mellitus with unspecified complications E11.8 and Other chronic pain G89.29 [facility] [id number] [place] [address] Jan, [place] [id number] [place] [address] Jan, Dehydration E86.0 and Type 2 diabetes mellitus with unspecified complications E11.8 [facility] [id number] [place] [address] Jan, [facility] [id number] [place] [address] Dec, Anxiety F41.9 [facility] [id number] [place] [address] Dec, Encounter to establish care Z76.89 ; Type 2 diabetes mellitus with unspecified complications E11.8 ; [employer] 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 ; Dorsalgia, unspecified M54.9 ; Other chronic pain G89.29 ; Insomnia, unspecified type G47.00 ; Neuropathy G62.9 and Bilateral tinnitus H93.13 [facility] [address] [facility] [id number] [place] [address] Dec, IMMUNIZATIONS No Known Immunizations SOCIAL HISTORY Never Assessed REASON FOR VISIT Diabetes-Corby [facility]A PLAN OF CARE Activity Details Follow Up prn Reason: VITAL SIGNS Height 53 in 2017-11-23 Weight 150.3 lbs 2017-11-23 Temperature 98.2 degrees Fahrenheit 2017-11-23 Heart Rate 84 bpm 2017-11-23 Respiratory Rate 20 2017-11-23 BMI 37.62 kg/m2 2017-11-23 Blood pressure systolic 106 mmHg 2017-11-23 Blood pressure diastolic 78 mmHg 2017-11-23 MEDICATIONS Medication Instructions Dosage Frequency Start Date End Date Duration Status Cialis 5 mg Orally Once a day 1 tablet 24h May, 90 days Active Ambien 5 mg Orally Once a day 1 tablet at bedtime 24h Nov, 28 days Not-Taking Bighorn 3 1000 MG Orally Once a day 3 capsules 24h Aug, 30 days Not-Taking Lyrica 150 MG Orally 3 times a day 1 capsule 8h May, 90 days Active Hydrocodone-Acetaminophen 10-325 MG Orally 3 times a day 1 tablet 8h October, 28 days Active Ibuprofen 800 MG TAKE ONE TABLET BY MOUTH THREE TIMES DAILY 30 Active Actos 45 MG Orally Once a day 1 tablet 24h Mar, Unknown MetFORMIN HCl ER 500 MG TAKE TWO TABLETS BY MOUTH TWICE DAILY 30 Active Alprazolam 1 MG Orally Once a day 1 tablet at bedtime 24h 28 days Active Atorvastatin Calcium 40 mg Orally Once a day 1 tablet 24h 11 Jun, 2017 30 day(s) Not-Taking Lantus SoloStar 100 UNIT/ML Subcutaneous 2 times a day Inject 25 units 12h Aug, Active Tamsulosin HCl 0.4 MG Orally Once a day 1 capsule 24h 08 Jul, 2017 30 day(s) Active RESULTS No Results PROCEDURES Procedure Date Ordered Result Body Site 09 PANEL (PROFILE 1) November 23, 2017 LIPID PANEL November 23, 2017 ASSAY OF URINE CREATININE November 23, 2017 COMPREHEN METABOLIC PANEL November 23, 2017 VENIPUNCT, ROUTINE* November 23, 2017 MICROALBUMIN, QUANTITATIVE November 23, 2017 INSTRUCTIONS MEDICATIONS ADMINISTERED No Known Medications MEDICAL [...]
--- OUTSIDE RECORDS SUMMARY | 2018-12-07 13:19 | XMS REPORT ---
Author Author SARAH GOLDMAN Organization [facility] Address [address] [place] [address] Care Team Providers Care Hand Meat Salter Name Role Phone SARAH GOLDMAN Unavailable PROBLEMS Type Condition ICD9-CM Code YHT36-QS Code Onset Dates Condition Status SNOMED Code Problem Anxiety F41.9 Active 81615851 Problem Benign prostatic hyperplasia with lower urinary tract symptoms, unspecified morphology N40.1 Active 257049848 Problem Other chronic pain G89.29 Active 21085377 Problem Hypertriglyceridemia E78.1 Active 579112246 Problem Type 2 diabetes mellitus with unspecified complications E11.8 Active 29908003 Problem Type 2 diabetes mellitus with hyperglycemia E11.65 Active 41221245 Problem 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 Active 607465553 Problem Hypoglycemia E16.2 Active 380283890 Problem Periodontitis K05.30 Active 65400885 Problem Neuropathy G62.9 Active 837015395 Problem Primary insomnia F51.01 Active 8536526 ALLERGIES No Information ENCOUNTERS Encounter Location Date Diagnosis [facility] [id number] [place] [address] Jan, [facility] [id number] [place] [address] Jan, Increased urinary frequency R35.0 ; Glucosuria R81 ; 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 and Type 2 diabetes mellitus with hyperglycemia E11.65 [facility] [id number] [place] [address] Dec, Hypertriglyceridemia E78.1 [facility] [id number] [place] [address] Dec, [facility] [id number] [place] [address] Nov, [facility] [id number] [address] Nov, Hypertriglyceridemia E78.1 and Benign prostatic hyperplasia with lower urinary tract symptoms, unspecified morphology N40.1 [facility] [address] [address] 06 Nov, 2017 Therapeutic drug monitoring Z51.81 ; Hypertriglyceridemia E78.1 ; Type 2 diabetes mellitus with unspecified complications E11.8 ; Tobacco abuse Z72.0 ; Chronic prescription opiate use Z79.891 and Chronically on benzodiazepine therapy Z79.899 [facility] [address] [address] October, Neuropathy G62.9 [facility] [id number] [place] [address] October, Neuropathy G62.9 [facility] [id number] [place] [address] October, [facility] [id number] [address] Sep, [facility] [id number] [place] [address] Sep, Anemia, unspecified type D64.9 [facility] [address] [place] [id number] [address] Sep, Anemia, unspecified type D64.9 [facility] [id number] [address] Aug, [facility] [id number] [address] Aug, Cellulitis of left lower extremity L03.116 [facility] [address] [address] 16 Aug, 2017 Cellulitis of left knee L03.116 [facility] [id number] [place] [address] Aug, Cellulitis of left knee L03.116 [facility] [id number] [place] [address] Aug, Hypertriglyceridemia E78.1 [facility] [id number] [place] [address] Aug, [facility] [id number] [place] [address] Jul, Hypertriglyceridemia E78.1 [facility] [id number] [place] [address] Jul, Benign prostatic hyperplasia with lower urinary tract symptoms, unspecified morphology N40.1 [facility] [id number] [place] [address] Jul, [facility] [id number] [place] [address] Jun, [facility] [id number] [place] [address] Jun, Hypertriglyceridemia E78.1 [facility] [id number] [place] [address] Jun, Type 2 diabetes mellitus with unspecified complications E11.8 ; Encounter for immunization Z23 ; Neuropathy G62.9 ; Other chronic pain G89.29 and 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 [facility] [id number] [place] [address] Jun, [facility] [id number] [place] [address] May, [facility] [id number] [place] [address] Apr, Benign prostatic hyperplasia with lower urinary tract symptoms, unspecified morphology N40.1 [facility] [id number] [place] [address] Apr, [facility] [id number] [place] [address] 13 Mar, 2017 Other chronic pain G89.29 ; Anxiety F41.9 and Neuropathy G62.9 [facility] [id number] [place] [address] 09 Mar, 2017 Type 2 diabetes mellitus with unspecified complications E11.8 and Other chronic pain G89.29 [facility] [id number] [place] [address] 29 Feb, 2017 Neuropathy G62.9 [facility] [id number] [place] [address] 15 Feb, 2017 Other chronic pain G89.29 and Anxiety F41.9 [facility] [id number] [place] [address] Jan, [facility] [id number] [place] [address] Jan, Other chronic pain G89.29 and Anxiety F41.9 [facility] [id number] [place] [address] Dec, [facility] [id number] [place] [address] Dec, Other chronic pain G89.29 and Anxiety F41.9 [facility] [id number] [place] [address] Dec, [facility] [id number] [place] [address] Dec, Primary insomnia F51.01 and Neuropathy G62.9 [facility] [id number] [place] [address] Nov, Anxiety F41.9 and Other chronic pain G89.29 [facility] [id number] [place] [address] Nov, Type 2 diabetes mellitus with unspecified complications E11.8 ; Neuropathy G62.9 and Primary insomnia F51.01 [facility] [id number] [place] [address] October, Anxiety F41.9 and Other chronic pain G89.29 [facility] [id number] [place] [address] October, Other chronic pain G89.29 ; Type 2 diabetes mellitus with unspecified complications E11.8 and Hypoglycemia E16.2 [facility] [id number] [place] [address] Sep, Other chronic pain G89.29 and Anxiety F41.9 [facility] [address] [address] Sep, [facility] [address] [address] Aug, Other chronic pain G89.29 and Anxiety F41.9 [facility] [id number] [place] [address] Aug, Rash R21 and Pain of right hip joint M25.551 [facility] [id number] [place] [address] Aug, [facility] [id number] [place] [address] Aug, [facility] [id number] [place] [address] Aug, Other chronic pain G89.29 and Anxiety F41.9 [facility] [id number] [place] [address] Aug, Type 2 diabetes mellitus with unspecified complications E11.8 [facility] [id number] [place] [address] Jul, [facility] [address] [address] Jul, Bronchitis J40 and Non-intractable vomiting, presence of nausea not specified, unspecified vomiting type R11.10 [facility] [address] [address] Jul, [facility] [address] [place] [address] Jul, Other chronic pain G89.29 and Anxiety F41.9 [facility] [address] [place] [address] Jul, Type 2 diabetes mellitus with unspecified complications E11.8 [facility] [address] [place] [address] Jun, Type 2 diabetes mellitus with unspecified complications E11.8 [facility] [address] [id number] Jun, Dental caries K02.9 [facility] [address] [address] Jun, [facility] [address] [id number] Jun, Dental examination Z01.20 [facility] [address] [address] Jun, Right corneal abrasion, initial encounter S05.01XA [facility] [address] [place] [address] Jun, [facility] [address] [address] Jun, Dental examination Z01.20 [facility] [address] [address] Jun, [facility] [address] [address] Jun, Perforated ear drum, right H72.91 ; Tooth pain K08.89 ; Type 2 diabetes mellitus with unspecified complications E11.8 and Other chronic pain G89.29 [facility] [id number] [place] [address] Jun, [facility] [address] [place] [address] [address] Jun, Other chronic pain G89.29 and Anxiety F41.9 [facility] [address] [address] Jun, [facility] [address] [address] May, Type 2 diabetes mellitus with unspecified complications E11.8 ; Benign prostatic hyperplasia with lower urinary tract symptoms, unspecified morphology N40.1 and Other chronic pain G89.29 [facility] [address] [address] May, Other chronic pain G89.29 and Anxiety F41.9 [facility] [address] [address] Apr, Other chronic pain G89.29 and Anxiety F41.9 [facility] [address] [address] Mar, [facility] [id number] [place] [address] Mar, Anxiety F41.9 and Other chronic pain G89.29 [facility] [id number] [place] [address] Mar, Other chronic pain G89.29 and correction 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 Z79.891 [facility] [address] [address] Mar, Other chronic pain G89.29 ; salvage determiner 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 Z79.891 and Anxiety F41.9 [facility] [id number] [place] [address] 30 Feb, 2016 Bronchitis J40 [facility] [id number] [place] [address] Feb, Other chronic pain G89.29 [facility] [id number] [place] [address] Feb, Type 2 diabetes mellitus with unspecified complications E11.8 [facility] [id number] [place] [address] Jan, Anxiety F41.9 [facility] [id number] [place] [address] Jan, [facility] [address] [address] Jan, [facility] [id number] [place] [address] Jan, Type 2 diabetes mellitus with unspecified complications E11.8 and Other chronic pain G89.29 [facility] [id number] [place] [address] Jan, [facility] [id number] [place] [address] Jan, Dehydration E86.0 and Type 2 diabetes mellitus with unspecified complications E11.8 [facility] [id number] [place] [address] Jan, [facility] [id number] [place] [address] Dec, Anxiety F41.9 [facility] [address] [place] [address] Dec, Encounter to establish care Z76.89 ; Type 2 diabetes mellitus with unspecified complications E11.8 ; correction 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 ; Dorsalgia, unspecified M54.9 ; Other chronic pain G89.29 ; Insomnia, unspecified type G47.00 ; Neuropathy G62.9 and Bilateral tinnitus H93.13 [facility] [id number] [address] Dec, IMMUNIZATIONS No Known Immunizations SOCIAL HISTORY Never Assessed REASON FOR VISIT PALS/Lyrica PLAN OF CARE VITAL SIGNS MEDICATIONS Medication Instructions Dosage Frequency Start Date End Date Duration Status Lyrica 150 MG Orally 3 times a day 1 capsule 8h May, 90 days Active RESULTS No Results PROCEDURES No Known procedures INSTRUCTIONS MEDICATIONS ADMINISTERED No Known Medications MEDICAL (GENERAL) HISTORY Type Description Date Medical History Type 2 diabetes mellitus without complications Medical History salvage determiner (current) use of insulin Medical History Other [...]
--- OUTSIDE RECORDS SUMMARY | 2018-12-07 13:19 | XMS REPORT ---
Author Author SARAH GOLDMAN Organization [facility] Address [address] [place] [address] Care Team Providers Care Director Of Curriculum And Instruction Name Role Phone SARAH GOLDMAN Unavailable PROBLEMS Type Condition ICD9-CM Code [id number] Code Onset Dates Condition Status SNOMED Code Problem Anxiety F41.9 Active 59628407 Problem Benign prostatic hyperplasia with lower urinary tract symptoms, unspecified morphology N40.1 Active 057988517 Problem Other chronic pain G89.29 Active 34251814 Problem Hypertriglyceridemia E78.1 Active 391100535 Problem Type 2 diabetes mellitus with unspecified complications E11.8 Active 55186376 Problem Type 2 diabetes mellitus with hyperglycemia E11.65 Active 30131582 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 Active 177865680 Problem Hypoglycemia E16.2 Active 290182980 Problem Periodontitis K05.30 Active 88252525 Problem Neuropathy G62.9 Active 068000656 Problem Primary insomnia F51.01 Active 5810769 ALLERGIES No Information ENCOUNTERS Encounter Location Date Diagnosis [place] [id number] [place] [address] Jan, Neuropathy G62.9 [place] [id number] [place] [address] Jan, [place] [id number] [place] [address] Jan, [place] [id number] [place] [address] Jan, Increased urinary frequency R35.0 ; Glucosuria R81 ; half-way 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 and Type 2 diabetes mellitus with hyperglycemia E11.65 [place] [id number] [place] [address] Dec, Hypertriglyceridemia E78.1 [facility] [address] [address] Dec, [facility] [id number] [place] [address] Nov, [facility] [address], [place] [address] Nov, Hypertriglyceridemia E78.1 and Benign prostatic hyperplasia with lower urinary tract symptoms, unspecified morphology N40.1 [facility] [address], [place] [address] Nov, Therapeutic drug monitoring Z51.81 ; Hypertriglyceridemia E78.1 ; Type 2 diabetes mellitus with unspecified complications E11.8 ; Tobacco abuse Z72.0 ; Chronic prescription opiate use Z79.891 and Chronically on benzodiazepine therapy Z79.899 [facility] [id number] [place] [address] October, Neuropathy G62.9 [facility] [id number] [place] [address] October, Neuropathy G62.9 [facility] [id number] [place] [address] October, [facility] [address], [place] [address] Sep, [facility] [address], [place] [address] Sep, Anemia, unspecified type D64.9 [facility] [address] [id number] [address] Sep, Anemia, unspecified type D64.9 [facility] [address], [place] [address] Aug, [facility] [address] [place] [address] Aug, Cellulitis of left lower extremity L03.116 [facility] [id number] [place] [address] 16 Aug, 2017 Cellulitis of left knee L03.116 [facility] [id number] [place] [address] 15 Aug, 2017 Cellulitis of left knee L03.116 [facility] [address] [address] 06 Aug, 2017 Hypertriglyceridemia E78.1 [place] [address] [address] Aug, [place] [address] [address] Jul, Hypertriglyceridemia E78.1 [place] [id number] [place] [address] 08 Jul, 2017 Benign prostatic hyperplasia with lower urinary tract symptoms, unspecified morphology N40.1 [place] [id number] [place] [address] 02 Jul, 2017 [place] [address] [address] Jun, [place] [id number] [place] [address] Jun, Hypertriglyceridemia E78.1 [place] [id number] [place] [address] Jun, Type 2 diabetes mellitus with unspecified complications E11.8 ; Encounter for immunization Z23 ; Neuropathy G62.9 ; Other chronic pain G89.29 and 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 [place] [id number] [place] [address] Jun, [facility] [id number] [place] [address] May, [facility] [address] [place] [address] Apr, Benign prostatic hyperplasia with lower urinary tract symptoms, unspecified morphology N40.1 [facility] [address] [address] Apr, [facility] [address] [address] Mar, Other chronic pain G89.29 ; Anxiety F41.9 and Neuropathy G62.9 [facility] [address] [address] 09 Mar, 2017 Type 2 diabetes mellitus with unspecified complications E11.8 and Other chronic pain G89.29 [facility] [address] [address] Feb, Neuropathy G62.9 [place] [address] [address] 15 Feb, 2017 Other chronic pain G89.29 and Anxiety F41.9 [facility] [address] [address] Jan, [facility] [address] [address] Jan, Other chronic pain G89.29 and Anxiety F41.9 [place] [address] [address] Dec, [facility] [address] [address] Dec, Other chronic pain G89.29 and Anxiety F41.9 [facility] [address] [address] Dec, [facility] [address] [address] Dec, Primary insomnia F51.01 and Neuropathy G62.9 [facility] [address] [address] Nov, Anxiety F41.9 and Other chronic pain G89.29 [place] [id number] [place] [address] Nov, Type 2 diabetes mellitus with unspecified complications E11.8 ; Neuropathy G62.9 and Primary insomnia F51.01 [place] [id number] [place] [address] October, Anxiety F41.9 and Other chronic pain G89.29 [place] [id number] [place] [address] October, Other chronic pain G89.29 ; Type 2 diabetes mellitus with unspecified complications E11.8 and Hypoglycemia E16.2 [place] [id number] [place] [address] Sep, Other chronic pain G89.29 and Anxiety F41.9 [place] [id number] [place] [address] Sep, [place] [id number] [place] [address] Aug, Other chronic pain G89.29 and Anxiety F41.9 [place] [address] [place] [address] Aug, Rash R21 and Pain of right hip joint M25.551 [place] [address] [place] [address] Aug, [place] [id number] [place] [address] Aug, [place] [id number] [place] [address] Aug, Other chronic pain G89.29 and Anxiety F41.9 [facility] [id number] [place] [address] Aug, Type 2 diabetes mellitus with unspecified complications E11.8 [facility] [address] [address] Jul, [facility] [address] [address] Jul, Bronchitis J40 and Non-intractable vomiting, presence of nausea not specified, unspecified vomiting type R11.10 [facility] [address] [address] Jul, [place] [address] [address] Jul, Other chronic pain G89.29 and Anxiety F41.9 [place] [address] [address] Jul, Type 2 diabetes mellitus with unspecified complications E11.8 [place] [address] [address] Jun, Type 2 diabetes mellitus with unspecified complications E11.8 [facility] [address] [id number] Jun, Dental caries K02.9 [facility] [address] [address] Jun, [facility] [address] [id number] Jun, Dental examination Z01.20 [facility] [address] [address] Jun, Right corneal abrasion, initial encounter S05.01XA [facility] [address] [address] Jun, [facility] [address] [address] Jun, Dental examination Z01.20 [facility] [address] [address] Jun, [facility] [id number] [place] [address] Jun, Perforated ear drum, right H72.91 ; Tooth pain K08.89 ; Type 2 diabetes mellitus with unspecified complications E11.8 and Other chronic pain G89.29 [place] [id number] [place] [address] Jun, [place] [address] [address] Jun, Other chronic pain G89.29 and Anxiety F41.9 [place] [address] [address] Jun, [place] [id number] [place] [address] May, Type 2 diabetes mellitus with unspecified complications E11.8 ; Benign prostatic hyperplasia with lower urinary tract symptoms, unspecified morphology N40.1 and Other chronic pain G89.29 [place] [id number] [place] [address] May, Other chronic pain G89.29 and Anxiety F41.9 [place] [id number] [place] [address] Apr, Other chronic pain G89.29 and Anxiety F41.9 [place] [id number] [place] [address] Mar, [place] [id number] [place] [address] Mar, Anxiety F41.9 and Other chronic pain G89.29 [place] [id number] [place] [address] Mar, Other chronic pain G89.29 and terminal gauger supervisor 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 Z79.891 [place] [id number] [place] [address] Mar, Other chronic pain G89.29 ; half-way 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 Z79.891 and Anxiety F41.9 [facility] [id number] [place] [address] 30 Feb, 2016 Bronchitis J40 [facility] [id number] [place] [address] 19 Feb, 2016 Other chronic pain G89.29 [facility] [id number] [place] [address] 15 Feb, 2016 Type 2 diabetes mellitus with unspecified complications E11.8 [place] [address] [address] Jan, Anxiety F41.9 [facility] [id number] [place] [address] Jan, [facility] [address] [address] Jan, [facility] [id number] [place] [address] Jan, Type 2 diabetes mellitus with unspecified complications E11.8 and Other chronic pain G89.29 [facility] [id number] [place] [address] Jan, [facility] [id number] [place] [address] Jan, Dehydration E86.0 and Type 2 diabetes mellitus with unspecified complications E11.8 [facility] [id number] [place] [address] Jan, [facility] [id number] [place] [address] Dec, Anxiety F41.9 [facility] [id number] [place] [address] Dec, Encounter to establish care Z76.89 ; Type 2 diabetes mellitus with unspecified complications E11.8 ; 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 ; Dorsalgia, unspecified M54.9 ; Other chronic pain G89.29 ; Insomnia, unspecified type G47.00 ; Neuropathy G62.9 and Bilateral tinnitus H93.13 [facility] [address] [facility] [id number] [address] Dec, IMMUNIZATIONS No Known Immunizations SOCIAL HISTORY Never Assessed REASON FOR VISIT Orders from Results PLAN OF CARE VITAL SIGNS MEDICATIONS Medication Instructions Dosage Frequency Start Date End Date Duration Status Tamsulosin HCl 0.4 MG Orally Once a day 1 capsule 24h Jul, 30 days Active Simvastatin 40 mg Orally Once a day 1 tablet in the evening 24h Nov, 30 days Active RESULTS No Results PROCEDURES No Known procedures INSTRUCTIONS MEDICATIONS ADMINISTERED No Known Medications MEDICAL (GENERAL) HISTORY Type Description Date Medical History Type 2 diabetes mellitus without complications Medical History terminal gauger supervisor (current) use of insulin Medical History [...]
--- OUTSIDE RECORDS SUMMARY | 2018-12-07 13:20 | XMS REPORT ---
Author Author SARAH GOLDMAN Organization [facility] Address [address] [place] [address] Care Team Providers Care Electrical Engineering Director Name Role Phone SARAH GOLDMAN Unavailable PROBLEMS Type Condition ICD9-CM Code HOJ12-SE Code Onset Dates Condition Status SNOMED Code Problem Type 2 diabetes mellitus with unspecified complications E11.8 Active 88781565 Problem Other chronic pain G89.29 Active 86251217 Problem Anxiety F41.9 Active 07895089 Problem Hypertriglyceridemia E78.1 Active 127256356 Problem custodial 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 Active 200240018 Problem Primary insomnia F51.01 Active 6003606 Problem Periodontitis K05.30 Active 81062304 Problem Benign prostatic hyperplasia with lower urinary tract symptoms, unspecified morphology N40.1 Active 761266897 Problem Neuropathy G62.9 Active 600433464 Problem Hypoglycemia E16.2 Active 370571329 ALLERGIES No Information ENCOUNTERS Encounter Location Date Diagnosis [place] [id number] [place] [address] Dec, Hypertriglyceridemia E78.1 [facility] [id number] [place] [address] Dec, [facility] [id number] [place] [address] Nov, [facility] [id number] [place] [address] Nov, Hypertriglyceridemia E78.1 and Benign prostatic hyperplasia with lower urinary tract symptoms, unspecified morphology N40.1 [facility] [id number] [place] [address] 06 Nov, 2017 Therapeutic drug monitoring Z51.81 ; Hypertriglyceridemia E78.1 ; Type 2 diabetes mellitus with unspecified complications E11.8 ; Tobacco abuse Z72.0 ; Chronic prescription opiate use Z79.891 and Chronically on benzodiazepine therapy Z79.899 [facility] [id number] [place] [address] October, Neuropathy G62.9 [facility] [id number] [place] [address] October, Neuropathy G62.9 [facility] [id number] [place] [address] October, [facility] [id number] [place] [address] Sep, [facility] [id number] [place] [address] Sep, Anemia, unspecified type D64.9 [facility] [address] [place], [place] [id number] [place] [address] Sep, Anemia, unspecified type D64.9 [facility] [id number] [place] [address] Aug, [facility] [id number] [place] [address] Aug, Cellulitis of left lower extremity L03.116 [facility] [id number] [place] [address] Aug, Cellulitis of left knee L03.116 [facility] [id number] [place] [address] 15 Aug, 2017 Cellulitis of left knee L03.116 [facility] [id number] [place] [address] Aug, Hypertriglyceridemia E78.1 [facility] [id number] [place] [address] Aug, [facility] [id number] [place] [address] 16 Jul, 2017 Hypertriglyceridemia E78.1 [facility] [id number] [place] [address] 08 Jul, 2017 Benign prostatic hyperplasia with lower urinary tract symptoms, unspecified morphology N40.1 [facility] [id number] [place] [address] 02 Jul, 2017 [facility] [id number] [place] [address] Jun, [facility] [id number] [place] [address] Jun, Hypertriglyceridemia E78.1 [place] [id number] [place] [address] Jun, Type 2 diabetes mellitus with unspecified complications E11.8 ; Encounter for immunization Z23 ; Neuropathy G62.9 ; Other chronic pain G89.29 and custodial 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 [place] [id number] [place] [address] Jun, [place] [id number] [place] [address] May, [place] [id number] [place] [address] Apr, Benign prostatic hyperplasia with lower urinary tract symptoms, unspecified morphology N40.1 [facility] [id number] [place] [address] Apr, [facility] [id number] [place] [address] 13 Mar, 2017 Other chronic pain G89.29 ; Anxiety F41.9 and Neuropathy G62.9 [facility] [id number] [place] [address] 09 Mar, 2017 Type 2 diabetes mellitus with unspecified complications E11.8 and Other chronic pain G89.29 [place] [address] [place] [address] 29 Feb, 2017 Neuropathy G62.9 [facility] [id number] [place] [address] 15 Feb, 2017 Other chronic pain G89.29 and Anxiety F41.9 [facility] [id number] [place] [address] Jan, [facility] [id number] [place] [address] Jan, Other chronic pain G89.29 and Anxiety F41.9 [facility] [id number] [place] [address] Dec, [facility] [id number] [place] [address] Dec, Other chronic pain G89.29 and Anxiety F41.9 [place] [id number] [place] [address] Dec, [facility] [id number] [place] [address] Dec, Primary insomnia F51.01 and Neuropathy G62.9 [place] [id number] [place] [address] Nov, Anxiety F41.9 and Other chronic pain G89.29 [facility] [id number] [place] [address] Nov, Type 2 diabetes mellitus with unspecified complications E11.8 ; Neuropathy G62.9 and Primary insomnia F51.01 [place] [id number] [place] [address] October, Anxiety F41.9 and Other chronic pain G89.29 [facility] [id number] [place] [address] October, Other chronic pain G89.29 ; Type 2 diabetes mellitus with unspecified complications E11.8 and Hypoglycemia E16.2 [place] [id number] [place] [address] Sep, Other chronic pain G89.29 and Anxiety F41.9 [facility] [id number] [place] [address] Sep, [facility] [address] [address] Aug, Other chronic pain G89.29 and Anxiety F41.9 [place] [address] [address] Aug, Rash R21 and Pain of right hip joint M25.551 [place] [id number] [place] [address] Aug, [place] [address] [address] Aug, [place] [address] [address] Aug, Other chronic pain G89.29 and Anxiety F41.9 [place] [id number] [place] [address] Aug, Type 2 diabetes mellitus with unspecified complications E11.8 [place] [id number] [place] [address] Jul, [place] [id number] [place] [address] Jul, Bronchitis J40 and Non-intractable vomiting, presence of nausea not specified, unspecified vomiting type R11.10 [place] [id number] [place] [address] Jul, [place] [id number] [place] [address] Jul, Other chronic pain G89.29 and Anxiety F41.9 [place] [id number] [place] [address] Jul, Type 2 diabetes mellitus with unspecified complications E11.8 [facility] [id number] [place] [address] Jun, Type 2 diabetes mellitus with unspecified complications E11.8 [facility] [id number] [place] [id number] Jun, Dental caries K02.9 [facility] [id number] [place] [address] Jun, [facility] [id number] [place] [id number] Jun, Dental examination Z01.20 [facility] [id number] [place] [address] Jun, Right corneal abrasion, initial encounter S05.01XA [place] [id number] [place] [address] Jun, [facility] [id number] [place] [address] Jun, Dental examination Z01.20 [place] [id number] [place] [address] Jun, [place] [id number] [place] [address] Jun, Perforated ear drum, right H72.91 ; Tooth pain K08.89 ; Type 2 diabetes mellitus with unspecified complications E11.8 and Other chronic pain G89.29 [place] [id number] [place] [address] Jun, [place] [id number] [place] [address] Jun, Other chronic pain G89.29 and Anxiety F41.9 [facility] [id number] [place] [address] Jun, [place] [id number] [place] [address] May, Type 2 diabetes mellitus with unspecified complications E11.8 ; Benign prostatic hyperplasia with lower urinary tract symptoms, unspecified morphology N40.1 and Other chronic pain G89.29 [place] [id number] [place] [address] 09 May, 2016 Other chronic pain G89.29 and Anxiety F41.9 [place] [id number] [place] [address] Apr, Other chronic pain G89.29 and Anxiety F41.9 [place] [address] [address] Mar, [place] [address] [address] Mar, Anxiety F41.9 and Other chronic pain G89.29 [place] [id number] [place] [address] Mar, Other chronic pain G89.29 and custodial 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 Z79.891 [place] [id number] [place] [address] Mar, Other chronic pain G89.29 ; 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 and Anxiety F41.9 [place] [id number] [place] [address] 30 Feb, 2016 Bronchitis J40 [place] [id number] [place] [address] 19 Feb, 2016 Other chronic pain G89.29 [place] [id number] [place] [address] 15 Feb, 2016 Type 2 diabetes mellitus with unspecified complications E11.8 [place] [id number] [place] [address] Jan, Anxiety F41.9 [place] [address] [address] Jan, [place] [id number] [place] [address] Jan, [place] [id number] [place] [address] Jan, Type 2 diabetes mellitus with unspecified complications E11.8 and Other chronic pain G89.29 [place] [id number] [place] [address] Jan, [place] [id number] [place] [address] Jan, Dehydration E86.0 and Type 2 diabetes mellitus with unspecified complications E11.8 [place] [id number] [place] [address] Jan, [place] [id number] [place] [address] Dec, Anxiety F41.9 [place] [id number] [place] [address] Dec, Encounter to establish care Z76.89 ; Type 2 diabetes mellitus with unspecified complications E11.8 ; 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 ; Dorsalgia, unspecified M54.9 ; Other chronic pain G89.29 ; Insomnia, unspecified type G47.00 ; Neuropathy G62.9 and Bilateral tinnitus H93.13 [place] [id number] [place] [address] Dec, IMMUNIZATIONS No Known Immunizations SOCIAL HISTORY Never Assessed REASON FOR VISIT Controlled Med Refill 10/17/17 PLAN OF CARE VITAL SIGNS MEDICATIONS Medication Instructions Dosage Frequency Start Date End Date Duration Status Alprazolam 1 MG Orally Once a day 1 tablet at bedtime 24h 28 days Active Hydrocodone-Acetaminophen 10-325 MG Orally 3 times a day 1 tablet 8h Sep, 28 days Active RESULTS No Results PROCEDURES No Known procedures INSTRUCTIONS MEDICATIONS ADMINISTERED No Known Medications MEDICAL (GENERAL) HISTORY Type Description Date Medical History Type 2 diabetes mellitus without complications Medical History 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
--- OUTSIDE RECORDS SUMMARY | 2018-12-07 13:20 | XMS REPORT ---
Author Author SARAH GOLDMAN Organization [facility] Address [address] [place] [address] Care Team Providers Care Electron Gun Assembler Name Role Phone SARAH GOLDMAN Unavailable PROBLEMS Type Condition ICD9-CM Code SET68-MK Code Onset Dates Condition Status SNOMED Code Problem Type 2 diabetes mellitus with unspecified complications E11.8 Active 99322319 Problem Other chronic pain G89.29 Active 47225207 Problem Anxiety F41.9 Active 13422298 Problem Hypertriglyceridemia E78.1 Active 618214914 Problem long-term 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 Active 000483330 Problem Primary insomnia F51.01 Active 3153453 Problem Periodontitis K05.30 Active 55801355 Problem Benign prostatic hyperplasia with lower urinary tract symptoms, unspecified morphology N40.1 Active 894110899 Problem Neuropathy G62.9 Active 079984599 Problem Hypoglycemia E16.2 Active 153226556 ALLERGIES No Information ENCOUNTERS Encounter Location Date Diagnosis [place] [id number] [place] [address] Dec, Hypertriglyceridemia E78.1 [facility] [id number] [place] [address] Dec, [facility] [id number] [place] [address] Nov, [facility] [id number] [place] [address] Nov, Hypertriglyceridemia E78.1 and Benign prostatic hyperplasia with lower urinary tract symptoms, unspecified morphology N40.1 [facility] [id number] [place] [address] 06 Nov, 2017 Therapeutic drug monitoring Z51.81 ; Hypertriglyceridemia E78.1 ; Type 2 diabetes mellitus with unspecified complications E11.8 ; Tobacco abuse Z72.0 ; Chronic prescription opiate use Z79.891 and Chronically on benzodiazepine therapy Z79.899 [facility] [id number] [place] [address] October, Neuropathy G62.9 [facility] [id number] [place] [address] October, Neuropathy G62.9 [facility] [id number] [place] [address] October, [facility] [id number] [place] [address] Sep, [facility] [id number] [place] [address] Sep, Anemia, unspecified type D64.9 [facility] [address] [place] [id number] [place] [address] Sep, Anemia, unspecified type D64.9 [facility] [id number] [place] [address] Aug, [facility] [id number] [place] [address] Aug, Cellulitis of left lower extremity L03.116 [facility] [id number] [place] [address] Aug, Cellulitis of left knee L03.116 [facility] [id number] [place] [address] 15 Aug, 2017 Cellulitis of left knee L03.116 [facility] [id number] [place] [address] Aug, Hypertriglyceridemia E78.1 [facility] [id number] [place] [address] Aug, [facility] [id number] [place] [address] 16 Jul, [address] [facility] [id number] [place] [address] 08 Jul, 2017 Benign prostatic hyperplasia with lower urinary tract symptoms, unspecified morphology N40.1 [facility] [id number] [place] [address] 02 Jul, 2017 [facility] [id number] [place] [address] Jun, [facility] [id number] [place] [address] Jun, Hypertriglyceridemia E78.1 [facility] [id number] [place] [address] Jun, Type 2 diabetes mellitus with unspecified complications E11.8 ; Encounter for immunization Z23 ; Neuropathy G62.9 ; Other chronic pain G89.29 and long-term 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 [facility] [id number] [place] [address] Jun, [facility] [facility] [id number] [place] [address] May, [facility] [id number] [place] [address] Apr, Benign prostatic hyperplasia with lower urinary tract symptoms, unspecified morphology N40.1 [facility] [id number] [place] [address] Apr, [facility] [id number] [place] [address] 13 Mar, 2017 Other chronic pain G89.29 ; Anxiety F41.[address] [facility] [id number] [place] [address] 09 Mar, 2017 Type 2 diabetes mellitus with unspecified complications E11.8 and Other chronic pain G89.29 [place] [id number] [place] [address] 29 Feb, [address] [facility] [id number] [place] [address] 15 Feb, 2017 Other chronic pain G89.[address] [facility] [id number] [place] [address] Jan, [facility] [id number] [place] [address] Jan, Other chronic pain G89.[address] [facility] [id number] [place] [address] Dec, [facility] [id number] [place] [address] Dec, Other chronic pain G89.29 and Anxiety F41.9 [place] [id number] [place] [address] Dec, [facility] [id number] [place] [address] Dec, Primary insomnia F51.01 and Neuropathy G62.9 [place] [id number] [place] [address] Nov, Anxiety F41.9 and Other chronic pain G89.29 [facility] [id number] [place] [address] Nov, Type 2 diabetes mellitus with unspecified complications E11.8 ; Neuropathy G62.9 and Primary insomnia F51.01 [facility] [id number] [place] [address] October, Anxiety F41.9 and Other chronic pain G89.29 [facility] [id number] [place] [address] October, Other chronic pain G89.29 ; Type 2 diabetes mellitus with unspecified complications E11.8 and Hypoglycemia E16.2 [facility] [id number] [place] [address] Sep, Other chronic pain G89.[address] [facility] [id number] [place] [address] Sep, [facility] [address] [address] Aug, Other chronic pain G89.29 and Anxiety F41.9 [place] [address] [address] Aug, Rash R21 and Pain of right hip joint M25.551 [place] [id number] [place] [address] Aug, [place] [address] [address] Aug, [place] [address] [address] Aug, Other chronic pain G89.29 and Anxiety F41.9 [place] [id number] [place] [address] Aug, Type 2 diabetes mellitus with unspecified complications E11.8 [facility] [id number] [place] [address] Jul, [facility] [id number] [place] [address] Jul, Bronchitis J40 and Non-intractable vomiting, presence of nausea not specified, unspecified vomiting type R11.10 [facility] [id number] [place] [address] Jul, [facility] [id number] [place] [address] Jul, Other chronic pain G89.29 and Anxiety F41.9 [facility] [place] [id number] [place] [address] Jul, Type 2 diabetes mellitus with unspecified complications E11.8 [facility] [id number] [place] [address] Jun, Type 2 diabetes mellitus with unspecified complications E11.8 [facility] [id number] [place] [id number] Jun, Dental caries K02.9 [facility] [id number] [place] [address] Jun, [facility] [id number] [place] [id number] Jun, Dental examination Z01.20 [facility] [id number] [place] [address] Jun, Right corneal abrasion, initial encounter S05.01XA [facility] [id number] [place] [address] Jun, [facility] [id number] [place] [address] Jun, Dental examination Z01.20 [place] [place] [id number] [place] [address] Jun, [facility] [id number] [place] [address] Jun, Perforated ear drum, right H72.91 ; Tooth pain K08.89 ; Type 2 diabetes mellitus with unspecified complications E11.8 and Other chronic pain G89.29 [facility] [place] [id number] [place] [address] Jun, [facility] [id number] [place] [address] Jun, Other chronic pain G89.[address] [facility] [id number] [place] [address] Jun, [place] [address] [place] [address] May, Type 2 diabetes mellitus with unspecified complications E11.8 ; Benign prostatic hyperplasia with lower urinary tract symptoms, unspecified morphology N40.1 and Other chronic pain G89.29 [place] [id number] [place] [address] 09 May, 2016 Other chronic pain G89.29 and Anxiety F41.9 [facility] [place] [id number] [place] [address] Apr, Other chronic pain G89.29 and Anxiety F41.9 [place] [address] [address] Mar, [place] [address] [address] Mar, Anxiety F41.9 and Other chronic pain G89.29 [place] [place] [id number] [place] [address] Mar, Other chronic pain G89.29 and long-term 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 Z79.891 [facility] [id number] [place] [address] Mar, Other chronic pain G89.29 ; 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 and Anxiety F41.9 [facility] [id number] [place] [address] 30 Feb, 2016 Bronchitis J40 [place] [id number] [place] [address] 19 Feb, 2016 Other chronic pain G89.29 [facility] [id number] [place] [address] 15 Feb, 2016 Type 2 diabetes mellitus with unspecified complications E11.8 [facility] [place] [id number] [place] [address] Jan, Anxiety F41.9 [place] [address] [address] Jan, [place] [id number] [place] [address] Jan, [place] [id number] [place] [address] Jan, Type 2 diabetes mellitus with unspecified complications E11.8 and Other chronic pain G89.29 [place] [id number] [place] [address] Jan, [place] [id number] [place] [address] Jan, Dehydration E86.0 and Type 2 diabetes mellitus with unspecified complications E11.8 [facility] [place] [id number] [place] [address] Jan, [place] [place] [id number] [place] [address] Dec, Anxiety F41.9 [place] [place] [id number] [place] [address] Dec, Encounter to establish care Z76.89 ; Type 2 diabetes mellitus with unspecified complications E11.8 ; 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 ; Dorsalgia, unspecified M54.9 ; Other chronic pain G89.29 ; Insomnia, unspecified type G47.00 ; Neuropathy G62.9 and Bilateral tinnitus H93.13 [place] [place] [address] [place] [address] Dec, IMMUNIZATIONS No Known Immunizations SOCIAL HISTORY Never Assessed REASON FOR VISIT Controlled Med Refill 11/14/17 PLAN OF CARE VITAL SIGNS MEDICATIONS Medication Instructions Dosage Frequency Start Date End Date Duration Status Hydrocodone-Acetaminophen 10-325 MG Orally 3 times a day 1 tablet 8h 20 Oct, 2017 28 days Active Alprazolam 1 MG Orally Once a day 1 tablet at bedtime 24h 28 days Active RESULTS No Results PROCEDURES No Known procedures INSTRUCTIONS MEDICATIONS ADMINISTERED No Known Medications MEDICAL (GENERAL) HISTORY Type Description Date Medical History Type 2 diabetes mellitus without complications Medical History long-term (current) use of insulin Medical History Other [...]
--- OUTSIDE RECORDS SUMMARY | 2018-12-07 13:20 | XMS REPORT ---
Author Author SARAH GOLDMAN Organization [facility] Address [address] [place] [address] Care Team Providers Care Proced Tech Name Role Phone SARAH GOLDMAN Unavailable PROBLEMS Type Condition ICD9-CM Code [id number] Code Onset Dates Condition Status SNOMED Code Problem Anxiety F41.9 Active 46217129 Problem Benign prostatic hyperplasia with lower urinary tract symptoms, unspecified morphology N40.1 Active 176601658 Problem Other chronic pain G89.29 Active 62648356 Problem Hypertriglyceridemia E78.1 Active 722058865 Problem Type 2 diabetes mellitus with unspecified complications E11.8 Active 33199279 Problem Type 2 diabetes mellitus with hyperglycemia E11.65 Active 52755526 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 Active 761840594 Problem Hypoglycemia E16.2 Active 381366776 Problem Periodontitis K05.30 Active 87081771 Problem Neuropathy G62.9 Active 694407232 Problem Primary insomnia F51.01 Active 3287520 ALLERGIES No Information ENCOUNTERS Encounter Location Date Diagnosis [facility] [id number] [place] [address] Jan, Increased urinary frequency R35.0 ; Glucosuria R81 ; 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 and Type 2 diabetes mellitus with hyperglycemia E11.65 [facility] [address] [address] Dec, Hypertriglyceridemia E78.1 [facility] [id number] [place] [address] Dec, [facility] [id number] [place] [address] Nov, [facility] [id number] [place] [address] Nov, Hypertriglyceridemia E78.1 and Benign prostatic hyperplasia with lower urinary tract symptoms, unspecified morphology N40.1 [facility] [id number] [place] [address] Nov, Therapeutic drug monitoring Z51.81 ; Hypertriglyceridemia E78.1 ; Type 2 diabetes mellitus with unspecified complications E11.8 ; Tobacco abuse Z72.0 ; Chronic prescription opiate use Z79.891 and Chronically on benzodiazepine therapy Z79.899 [facility] [id number] [place] [address] October, Neuropathy G62.9 [facility] [id number] [place] [address] October, Neuropathy G62.9 [facility] [id number] [place] [address] October, [facility] [id number] [place] [address] Sep, [facility] [id number] [place] [address] Sep, Anemia, unspecified type D64.9 [facility] [address] [place], [place] [id number] [place] [address] Sep, Anemia, unspecified type D64.9 [facility] [id number] [place] [address] Aug, [facility] [id number] [place] [address] Aug, Cellulitis of left lower extremity L03.116 [facility] [id number] [place] [address] 16 Aug, 2017 Cellulitis of left knee L03.116 [facility] [id number] [place] [address] 15 Aug, 2017 Cellulitis of left knee L03.116 [facility] [id number] [address] Aug, Hypertriglyceridemia E78.1 [facility] [id number] [place] [address] Aug, [facility] [id number] [place] [address] Jul, Hypertriglyceridemia E78.1 [facility] [id number] [place] [address] Jul, Benign prostatic hyperplasia with lower urinary tract symptoms, unspecified morphology N40.1 [facility] [id number] [place] [address] Jul, [facility] [id number] [place] [address] Jun, [facility] [id number] [place] [address] Jun, Hypertriglyceridemia E78.1 [facility] [id number] [place] [address] Jun, Type 2 diabetes mellitus with unspecified complications E11.8 ; Encounter for immunization Z23 ; Neuropathy G62.9 ; Other chronic pain G89.29 and halfway 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 [facility] [address] [address] Jun, [facility] [address] [address] May, [facility] [address] [address] Apr, Benign prostatic hyperplasia with lower urinary tract symptoms, unspecified morphology N40.1 [facility] [address] [address] Apr, [facility] [address] [address] Mar, Other chronic pain G89.29 ; Anxiety F41.9 and Neuropathy G62.9 [facility] [id number] [place] [address] 09 Mar, 2017 Type 2 diabetes mellitus with unspecified complications E11.8 and Other chronic pain G89.29 [facility] [id number] [place] [address] 29 Feb, 2017 Neuropathy G62.9 [facility] [address] [address] 15 Feb, 2017 Other chronic pain G89.29 and Anxiety F41.9 [facility] [address] [address] Jan, [facility] [address] [address] Jan, Other chronic pain G89.29 and Anxiety F41.9 [facility] [address] [address] Dec, [facility] [id number] [place] [address] Dec, Other chronic pain G89.29 and Anxiety F41.9 [facility] [id number] [place] [address] Dec, [facility] [id number] [place] [address] Dec, Primary insomnia F51.01 and Neuropathy G62.9 [facility] [id number] [place] [address] Nov, Anxiety F41.9 and Other chronic pain G89.29 [facility] [id number] [place] [address] Nov, Type 2 diabetes mellitus with unspecified complications E11.8 ; Neuropathy G62.9 and Primary insomnia F51.01 [facility] [id number] [place] [address] October, Anxiety F41.9 and Other chronic pain G89.29 [facility] [id number] [place] [address] October, Other chronic pain G89.29 ; Type 2 diabetes mellitus with unspecified complications E11.8 and Hypoglycemia E16.2 [facility] [id number] [place] [address] Sep, Other chronic pain G89.29 and Anxiety F41.9 [facility] [id number] [place] [address] Sep, [facility] [id number] [place] [address] Aug, Other chronic pain G89.29 and Anxiety F41.9 [facility] [id number] [place] [address] Aug, Rash R21 and Pain of right hip joint M25.551 [facility] [id number] [place] [address] Aug, [facility] [id number] [place] [address] Aug, [facility] [id number] [place] [address] Aug, Other chronic pain G89.29 and Anxiety F41.9 [facility] [id number] [place] [address] Aug, Type 2 diabetes mellitus with unspecified complications E11.8 [facility] [id number] [place] [address] Jul, [facility] [id number] [place] [address] Jul, Bronchitis J40 and Non-intractable vomiting, presence of nausea not specified, unspecified vomiting type R11.10 [facility] [id number] [place] [address] Jul, [place] [address] [address] Jul, Other chronic pain G89.29 and Anxiety F41.9 [facility] [id number] [place] [address] Jul, Type 2 diabetes mellitus with unspecified complications E11.8 [facility] [id number] [place] [address] Jun, Type 2 diabetes mellitus with unspecified complications E11.8 [facility] [address] [id number] Jun, Dental caries K02.9 [place] [id number] [place] [address] Jun, [facility] [id number] [place] [id number] Jun, Dental examination Z01.20 [facility] [id number] [place] [address] Jun, Right corneal abrasion, initial encounter S05.01XA [place] [id number] [place] [address] Jun, [facility] [id number] [place] [address] Jun, Dental examination Z01.20 [facility] [id number] [place] [address] Jun, [facility] [place] [id number] [place] [address] Jun, Perforated ear drum, right H72.91 ; Tooth pain K08.89 ; Type 2 diabetes mellitus with unspecified complications E11.8 and Other chronic pain G89.29 [facility] [place] [id number] [place] [address] Jun, [facility] [id number] [place] [address] Jun, Other chronic pain G89.29 and Anxiety F41.9 [facility] [id number] [place] [address] Jun, [facility] [id number] [place] [address] May, Type 2 diabetes mellitus with unspecified complications E11.8 ; Benign prostatic hyperplasia with lower urinary tract symptoms, unspecified morphology N40.1 and Other chronic pain G89.29 [place] [address] [address] May, Other chronic pain G89.29 and Anxiety F41.9 [facility] [id number] [place] [address] Apr, Other chronic pain G89.29 and Anxiety F41.9 [facility] [id number] [place] [address] Mar, [facility] [id number] [place] [address] Mar, Anxiety F41.9 and Other chronic pain G89.29 [facility] [id number] [place] [address] Mar, Other chronic pain G89.29 and terminal computer operator 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 Z79.891 [facility] [id number] [place] [address] Mar, Other chronic pain G89.29 ; terminal computer operator 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 Z79.891 and Anxiety F41.9 [facility] [id number] [place] [address] 30 Feb, 2016 Bronchitis J40 [facility] [place] [id number] [place] [address] Feb, Other chronic pain G89.29 [place] [address] [address] Feb, Type 2 diabetes mellitus with unspecified complications E11.8 [facility] [id number] [place] [address] Jan, Anxiety F41.9 [facility] [id number] [place] [address] Jan, [facility] [id number] [place] [address] Jan, [place] [address] [address] Jan, Type 2 diabetes mellitus with unspecified complications E11.8 and Other chronic pain G89.29 [facility] [place] [id number] [place] [address] Jan, [place] [id number] [place] [address] Jan, Dehydration E86.0 and Type 2 diabetes mellitus with unspecified complications E11.8 [facility] [id number] [place] [address] Jan, [facility] [id number] [place] [address] Dec, Anxiety F41.9 [facility] [id number] [place] [address] Dec, Encounter to establish care Z76.89 ; Type 2 diabetes mellitus with unspecified complications E11.8 ; 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 ; Dorsalgia, unspecified M54.9 ; Other chronic pain G89.29 ; Insomnia, unspecified type G47.00 ; Neuropathy G62.9 and Bilateral tinnitus H93.13 [facility] [id number] [place] [address] Dec, IMMUNIZATIONS No Known Immunizations SOCIAL HISTORY Never Assessed REASON FOR VISIT Lyrica PLAN OF CARE VITAL SIGNS MEDICATIONS Medication Instructions Dosage Frequency Start Date End Date Duration Status Lyrica 150 MG Orally 3 times a day 1 capsule 8h 15 May, 2016 30 days Active RESULTS No Results PROCEDURES No Known procedures INSTRUCTIONS MEDICATIONS ADMINISTERED No Known Medications MEDICAL (GENERAL) HISTORY Type Description Date Medical History Type 2 diabetes mellitus without complications Medical History terminal computer operator (current) use of insulin Medical History [...]
--- OUTSIDE RECORDS SUMMARY | 2018-12-07 13:21 | XMS REPORT ---
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 [id number] [place] [address] Nov, [facility] [id number] [place] [address] Nov, Hypertriglyceridemia E78.1 and Benign prostatic hyperplasia with lower urinary tract symptoms, unspecified morphology N40.1 [facility] [id number] [place] [address] 06 Nov, 2017 Therapeutic drug monitoring Z51.81 ; Hypertriglyceridemia E78.1 ; Type 2 diabetes mellitus with unspecified complications E11.8 ; Tobacco abuse Z72.0 ; Chronic prescription opiate use Z79.891 and Chronically on benzodiazepine therapy Z79.899 [facility] [address] [place] [address] October, Neuropathy G62.9 [facility] [address] [place] [address] October, Neuropathy G62.9 [facility] [id number] [place] [address] October, [facility] [id number] [place] [address] Sep, [facility] [id number] [place] [phone] Sep, Anemia, unspecified type D64.9 [facility] [address] [place], [place] [id number] [place] [address] Sep, Anemia, unspecified type D64.9 [facility] [address] [place] [address] Aug, [facility] [id number] [place] [address] Aug, Cellulitis of left lower extremity L03.116 [facility] [id number] [place] [address] Aug, Cellulitis of left knee L03.116 [facility] [id number] [place] [address] 15 Aug, 2017 Cellulitis of left knee L03.116 [facility] [id number] [place] [address] Aug, Hypertriglyceridemia E78.1 [facility] [address] [place] [address] Aug, [facility] [id number] [place] [address] 16 Jul, [address] [facility] [id number] [place] [address] 08 Jul, 2017 Benign prostatic hyperplasia with lower urinary tract symptoms, unspecified morphology N40.1 [facility] [id number] [place] [address] 02 Jul, 2017 [facility] [id number] [place] [phone] Jun, [facility] [id number] [place] [address] Jun, Hypertriglyceridemia E78.1 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 [id number] [place] [address] Apr, Benign prostatic hyperplasia with lower urinary tract symptoms, unspecified morphology N40.1 [facility] [id number] [place] [address] Apr, [facility] [id number] [place] [address] 13 Mar, 2017 Other chronic pain G89.29 ; Anxiety F41.[address] [facility] [id number] [place] [address] 09 Mar, 2017 Type 2 diabetes mellitus with unspecified complications E11.8 and Other chronic pain G89.29 [facility] [address] [address] 29 Feb, [address] [facility] [id number] [place] [address] 15 Feb, 2017 Other chronic pain G89.[address] [facility] [id number] [place] [address] Jan, [facility] [id number] [place] [address] Jan, Other chronic pain G89.29 and Anxiety F41.9 [facility] [id number] [place] [address] Dec, [facility] [id number] [place] [address] Dec, Other chronic pain G89.29 and Anxiety F41.9 [facility] [id number] [place] [address] Dec, [facility] [id number] [place] [address] Dec, Primary insomnia F51.01 and Neuropathy G62.9 [facility] [id number] [place] [address] Nov, Anxiety F41.9 and Other chronic pain G89.29 [facility] [address] [place] [address] Nov, Type 2 diabetes mellitus with unspecified complications E11.8 ; Neuropathy G62.9 and Primary insomnia F51.01 [facility] [id number] [place] [address] October, Anxiety F41.9 and Other chronic pain G89.29 [facility] [address] [place] [address] October, Other chronic pain G89.29 ; Type 2 diabetes mellitus with unspecified complications E11.[address] [facility] [id number] [place] [address] Sep, Other chronic pain G89.[address] [facility] [id number] [place] [address] Sep, [facility] [address] [address] Aug, Other chronic pain G89.29 and Anxiety F41.9 [facility] [id number] [place] [address] Aug, Rash R21 and Pain of right hip joint M25.551 [facility] [id number] [place] [address] Aug, [facility] [address] [address] Aug, [facility] [id number] [place] [address] Aug, Other chronic pain G89.29 and Anxiety F41.9 [facility] [id number] [place] [address] Aug, Type 2 diabetes mellitus with unspecified complications E11.8 [facility] [id number] [place] [address] Jul, [facility] [id number] [place] [address] Jul, Bronchitis J40 and Non-intractable vomiting, presence of nausea not specified, unspecified vomiting type R11.10 [facility] [id number] [place] [address] Jul, [facility] [id number] [place] [address] Jul, Other chronic pain G89.29 and Anxiety F41.9 [facility] [id number] [place] [address] Jul, Type 2 diabetes mellitus with unspecified complications E11.8 [facility] [id number] [place] [address] Jun, Type 2 diabetes mellitus with unspecified complications E11.8 [facility] [id number] [place] [id number] Jun, Dental caries K02.9 [facility] [id number] [place] [address] Jun, [facility] [address] [id number] Jun, Dental examination Z01.20 [facility] [id number] [place] [address] Jun, Right corneal abrasion, initial encounter S05.01XA [facility] [id number] [place] [address] Jun, [facility] [id number] [place] [address] Jun, Dental examination Z01.20 [facility] [id number] [place] [address] Jun, [facility] [id number] [place] [address] Jun, Perforated ear drum, right H72.91 ; Tooth pain K08.89 ; Type 2 diabetes mellitus with unspecified complications E11.8 and Other chronic pain G89.29 [facility] [id number] [place] [address] Jun, [facility] [id number] [place] [address] Jun, Other chronic pain G89.[address] [facility] [address] [address] Jun, [facility] [address] [place] [address] May, Type 2 diabetes mellitus with unspecified complications E11.8 ; Benign prostatic hyperplasia with lower urinary tract symptoms, unspecified morphology N40.1 and Other chronic pain G89.29 [facility] [id number] [place] [address] 09 May, 2016 Other chronic pain G89.29 and Anxiety F41.9 [facility] [id number] [place] [address] Apr, Other chronic pain G89.29 and Anxiety F41.9 [facility] [id number] [place] [address] Mar, [facility] [id number] [place] [address] Mar, Anxiety F41.9 and Other chronic pain G89.29 [facility] [id number] [place] [address] 14 Mar, 2016 Other chronic pain G89.29 and intermediate frame tender 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 Z79.891 [facility] [id number] [place] [address] Mar, Other chronic pain G89.29 ; nursing home 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 Z79.891 and Anxiety F41.9 [facility] [id number] [place] [address] 30 Feb, 2016 Bronchitis J40 [facility] [id number] [place] [address] 19 Feb, 2016 Other chronic pain G89.29 [facility] [id number] [place] [address] 15 Feb, 2016 Type 2 diabetes mellitus with unspecified complications E11.8 [facility] [id number] [place] [address] Jan, Anxiety F41.9 [facility] [address] [place] [address] Jan, [facility] [id number] [place] [address] Jan, [facility] [id number] [place] [address] Jan, Type 2 diabetes mellitus with unspecified complications E11.8 and Other chronic pain G89.29 [facility] [id number] [place] [address] Jan, [facility] [id number] [place] [address] Jan, Dehydration E86.0 and Type 2 diabetes mellitus with unspecified complications E11.8 [facility] [id number] [place] [phone] Jan, [facility] [id number] [place] [address] Dec, Anxiety F41.9 [facility] [id number] [place] [address] Dec, Encounter to establish care Z76.89 ; Type 2 diabetes mellitus with unspecified complications E11.8 ; nursing home 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 ; Dorsalgia, unspecified M54.9 ; Other chronic pain G89.29 ; Insomnia, unspecified type G47.00 ; Neuropathy G62.9 and Bilateral tinnitus H93.13 [facility] [address] [place] [address] Dec, IMMUNIZATIONS No Known Immunizations SOCIAL HISTORY Never Assessed REASON FOR VISIT PLAN OF CARE VITAL SIGNS MEDICATIONS Unknown [...]
--- OUTSIDE RECORDS SUMMARY | 2018-12-07 13:21 | XMS REPORT ---
Author Author SARAH GOLDMAN Organization [facility] Address [address] [place] [address] Care Team Providers Care Knitter Hand Name Role Phone SARAH GOLDMAN Unavailable PROBLEMS Type Condition ICD9-CM Code LBW93-OT Code Onset Dates Condition Status SNOMED Code Problem Type 2 diabetes mellitus with unspecified complications E11.8 Active 00052733 Problem Other chronic pain G89.29 Active 07023211 Problem Anxiety F41.9 Active 39706778 Problem Hypertriglyceridemia E78.1 Active 388582870 Problem custodial 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 Active 500209477 Problem Primary insomnia F51.01 Active 1868035 Problem Periodontitis K05.30 Active 24463395 Problem Benign prostatic hyperplasia with lower urinary tract symptoms, unspecified morphology N40.1 Active 060686907 Problem Neuropathy G62.9 Active 016216225 Problem Hypoglycemia E16.2 Active 870210543 ALLERGIES No Information ENCOUNTERS Encounter Location Date Diagnosis [place] [id number] [place] [address] Dec, Hypertriglyceridemia E78.1 [facility] [id number] [place] [phone] Dec, [facility] [id number] [place] [address] Nov, [facility] [id number] [place] [address] Nov, Hypertriglyceridemia E78.1 and Benign prostatic hyperplasia with lower urinary tract symptoms, unspecified morphology N40.1 [facility] [id number] [place] [address] 06 Nov, 2017 Therapeutic drug monitoring Z51.81 ; Hypertriglyceridemia E78.1 ; Type 2 diabetes mellitus with unspecified complications E11.8 ; Tobacco abuse Z72.0 ; Chronic prescription opiate use Z79.891 and Chronically on benzodiazepine therapy Z79.899 [facility] [id number] [place] [address] October, Neuropathy G62.9 [facility] [id number] [place] [address] October, Neuropathy G62.9 [facility] [id number] [place] [address] October, [facility] [id number] [place] [address] Sep, [facility] [id number] [place] [address] Sep, Anemia, unspecified type D64.9 [facility] [address] [place], [place] [id number] [place] [phone] Sep, Anemia, unspecified type D64.9 [facility] [id number] [place] [address] Aug, [facility] [id number] [place] [address] Aug, Cellulitis of left lower extremity L03.116 [facility] [id number] [place] [address] Aug, Cellulitis of left knee L03.116 [facility] [id number] [place] [id number] 15 Aug, 2017 Cellulitis of left knee L03.116 [facility] [id number] [place] [address] Aug, Hypertriglyceridemia E78.1 [facility] [id number] [place] [address] Aug, [facility] [id number] [place] [id number] 16 Jul, 2017 Hypertriglyceridemia E78.1 [facility] [id number] [place] [phone] 08 Jul, 2017 Benign prostatic hyperplasia with lower urinary tract symptoms, unspecified morphology N40.1 [facility] [id number] [place] [phone] 02 Jul, 2017 [facility] [id number] [place] [phone] Jun, [facility] [id number] [place] [address] Jun, Hypertriglyceridemia E78.1 [facility] [id number] [place] [address] Jun, Type 2 diabetes mellitus with unspecified complications E11.8 ; Encounter for immunization Z23 ; Neuropathy G62.9 ; Other chronic pain G89.29 and custodial 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 [facility] [id number] [place] [phone] Jun, [facility] [id number] [place] [address] May, [facility] [id number] [place] [address] Apr, Benign prostatic hyperplasia with lower urinary tract symptoms, unspecified morphology N40.1 [facility] [id number] [place] [phone] Apr, [facility] [id number] [place] [address] 13 Mar, 2017 Other chronic pain G89.29 ; Anxiety F41.9 and Neuropathy G62.9 [facility] [id number] [place] [phone] 09 Mar, 2017 Type 2 diabetes mellitus with unspecified complications E11.8 and Other chronic pain G89.29 [place] [id number] [place] [address] 29 Feb, 2017 Neuropathy G62.9 [facility] [id number] [place] [address] 15 Feb, 2017 Other chronic pain G89.29 and Anxiety F41.9 [facility] [id number] [place] [address] Jan, [facility] [id number] [place] [address] Jan, Other chronic pain G89.29 and Anxiety F41.9 [facility] [id number] [place] [address] Dec, [facility] [id number] [place] [address] Dec, Other chronic pain G89.29 and Anxiety F41.9 [place] [id number] [place] [address] Dec, [facility] [id number] [place] [address] Dec, Primary insomnia F51.01 and Neuropathy G62.9 [place] [id number] [place] [address] Nov, Anxiety F41.9 and Other chronic pain G89.29 [facility] [id number] [place] [address] Nov, Type 2 diabetes mellitus with unspecified complications E11.8 ; Neuropathy G62.9 and Primary insomnia F51.01 [facility] [id number] [place] [address] October, Anxiety F41.9 and Other chronic pain G89.29 [facility] [id number] [place] [address] October, Other chronic pain G89.29 ; Type 2 diabetes mellitus with unspecified complications E11.8 and Hypoglycemia E16.2 [facility] [id number] [place] [address] Sep, Other chronic pain G89.29 and Anxiety F41.9 [facility] [id number] [place] [address] Sep, [facility] [address] [address] Aug, Other chronic pain G89.29 and Anxiety F41.9 [place] [address] [address] Aug, Rash R21 and Pain of right hip joint M25.551 [place] [facility] [id number] [place] [address] Aug, [facility] [address] [address] Aug, [place] [address] [address] Aug, Other chronic pain G89.29 and Anxiety F41.9 [place] [id number] [place] [address] Aug, Type 2 diabetes mellitus with unspecified complications E11.8 [facility] [id number] [place] [address] Jul, [facility] [id number] [place] [address] Jul, Bronchitis J40 and Non-intractable vomiting, presence of nausea not specified, unspecified vomiting type R11.10 [facility] [id number] [place] [address] Jul, [facility] [id number] [place] [address] Jul, Other chronic pain G89.29 and Anxiety F41.9 [facility] [id number] [place] [address] Jul, Type 2 diabetes mellitus with unspecified complications E11.8 [facility] [id number] [place] [address] Jun, Type 2 diabetes mellitus with unspecified complications E11.8 [facility] [id number] [place] [phone] Jun, Dental caries K02.9 [facility] [id number] [place] [address] Jun, [facility] [id number] [place] [id number] Jun, Dental examination Z01.20 [facility] [id number] [place] [phone] Jun, Right corneal abrasion, initial encounter S05.01XA [place] [id number] [place] [address] Jun, [facility] [id number] [place] [address] Jun, Dental examination Z01.20 [facility] [id number] [place] [address] Jun, [facility] [id number] [place] [address] Jun, Perforated ear drum, right H72.91 ; Tooth pain K08.89 ; Type 2 diabetes mellitus with unspecified complications E11.8 and Other chronic pain G89.29 [facility] [id number] [place] [address] Jun, [facility] [id number] [place] [address] Jun, Other chronic pain G89.29 and Anxiety F41.9 [facility] [id number] [place] [address] Jun, [place] [address] [place] [address] May, Type 2 diabetes mellitus with unspecified complications E11.8 ; Benign prostatic hyperplasia with lower urinary tract symptoms, unspecified morphology N40.1 and Other chronic pain G89.29 [place] [id number] [place] [address] 09 May, 2016 Other chronic pain G89.29 and Anxiety F41.9 [place] [id number] [place] [address] Apr, Other chronic pain G89.29 and Anxiety F41.9 [place] [address] [address] Mar, [place] [address] [address] Mar, Anxiety F41.9 and Other chronic pain G89.29 [place] [id number] [place] [address] Mar, Other chronic pain G89.29 and custodial 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 Z79.891 [place] [id number] [place] [address] Mar, Other chronic pain G89.29 ; terminal gauger 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 Z79.891 and Anxiety F41.9 [facility] [id number] [place] [address] 30 Feb, 2016 Bronchitis J40 [facility] [id number] [place] [address] 19 Feb, 2016 Other chronic pain G89.29 [place] [id number] [place] [address] 15 Feb, 2016 Type 2 diabetes mellitus with unspecified complications E11.8 [place] [id number] [place] [address] Jan, Anxiety F41.9 [place] [address] [address] Jan, [place] [id number] [place] [address] Jan, [place] [id number] [place] [address] Jan, Type 2 diabetes mellitus with unspecified complications E11.8 and Other chronic pain G89.29 [place] [id number] [place] [address] Jan, [place] [id number] [place] [address] Jan, Dehydration E86.0 and Type 2 diabetes mellitus with unspecified complications E11.8 [place] [id number] [place] [address] Jan, [place] [id number] [place] [address] Dec, Anxiety F41.9 [facility] [id number] [place] [address] Dec, Encounter to establish care Z76.89 ; Type 2 diabetes mellitus with unspecified complications E11.8 ; terminal gauger 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 ; Dorsalgia, unspecified M54.9 ; Other chronic pain G89.29 ; Insomnia, unspecified type G47.00 ; Neuropathy G62.9 and Bilateral tinnitus H93.13 [place] [id number] [place] [address] Dec, IMMUNIZATIONS No Known Immunizations SOCIAL HISTORY Never Assessed REASON FOR VISIT Controlled Med Refill 09/19/17 PLAN OF CARE VITAL SIGNS MEDICATIONS Medication Instructions Dosage Frequency Start Date End Date Duration Status Hydrocodone-Acetaminophen 10-325 MG Orally 3 times a day 1 tablet 8h Sep, 28 days Active Alprazolam 1 MG Orally Once a day 1 tablet at bedtime 24h 28 days Active RESULTS No Results PROCEDURES No Known procedures INSTRUCTIONS MEDICATIONS ADMINISTERED No Known Medications MEDICAL (GENERAL) HISTORY Type Description Date Medical History Type 2 diabetes mellitus without complications Medical History custodial (current) use of insulin Medical History Other [...]
--- OUTSIDE RECORDS SUMMARY | 2018-12-07 13:21 | XMS REPORT ---
Author Author SARAH GOLDMAN Organization [facility] Address [address] [place] [address] Care Team Providers Care Physician/Ophthalmologist Name Role Phone SARAH GOLDMAN Unavailable PROBLEMS Type Condition ICD9-CM Code OFQ01-OB Code Onset Dates Condition Status SNOMED Code Problem Type 2 diabetes mellitus with unspecified complications E11.8 Active 30739692 Problem Other chronic pain G89.29 Active 83127810 Problem Anxiety F41.9 Active 83456061 Problem Hypertriglyceridemia E78.1 Active 838584926 Problem skilled nursing 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 Active 379788575 Problem Primary insomnia F51.01 Active 5033522 Problem Periodontitis K05.30 Active 59479000 Problem Benign prostatic hyperplasia with lower urinary tract symptoms, unspecified morphology N40.1 Active 820119976 Problem Neuropathy G62.9 Active 582025665 Problem Hypoglycemia E16.2 Active 136441314 ALLERGIES No Information ENCOUNTERS Encounter Location Date Diagnosis [facility] [id number] [place] [address] Dec, Hypertriglyceridemia E78.1 [facility] [id number] [place] [address] Dec, [facility] [id number] [place] [address] Nov, [facility] [id number] [place] [address] Nov, Hypertriglyceridemia E78.1 and Benign prostatic hyperplasia with lower urinary tract symptoms, unspecified morphology N40.1 [facility] [id number] [place] [address] 06 Nov, 2017 Therapeutic drug monitoring Z51.81 ; Hypertriglyceridemia E78.1 ; Type 2 diabetes mellitus with unspecified complications E11.8 ; Tobacco abuse Z72.0 ; Chronic prescription opiate use Z79.891 and Chronically on benzodiazepine therapy Z79.899 [facility] [id number] [place] [address] October, Neuropathy G62.9 [facility] [id number] [place] [address] October, Neuropathy G62.9 [facility] [id number] [place] [address] October, [facility] [id number] [place] [address] Sep, [facility] [id number] [place] [address] Sep, Anemia, unspecified type D64.9 [facility] [address] [place] [id number] [place] [address] Sep, Anemia, unspecified type D64.9 [facility] [id number] [place] [address] Aug, [facility] [id number] [place] [address] Aug, Cellulitis of left lower extremity L03.116 [facility] [id number] [place] [address] Aug, Cellulitis of left knee L03.116 [facility] [id number] [place] [address] 15 Aug, 2017 Cellulitis of left knee L03.116 [facility] [id number] [place] [address] Aug, Hypertriglyceridemia E78.1 [facility] [id number] [place] [address] Aug, [facility] [id number] [place] [address] 16 Jul, 2017 Hypertriglyceridemia E78.1 [facility] [id number] [place] [address] 08 Jul, 2017 Benign prostatic hyperplasia with lower urinary tract symptoms, unspecified morphology N40.1 [facility] [id number] [place] [address] 02 Jul, 2017 [facility] [id number] [place] [address] Jun, [facility] [id number] [place] [address] Jun, Hypertriglyceridemia E78.1 [facility] [id number] [place] [address] Jun, Type 2 diabetes mellitus with unspecified complications E11.8 ; Encounter for immunization Z23 ; Neuropathy G62.9 ; Other chronic pain G89.29 and skilled nursing 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 [facility] [id number] [place] [address] Jun, [facility] [id number] [place] [address] May, [facility] [id number] [place] [address] Apr, Benign prostatic hyperplasia with lower urinary tract symptoms, unspecified morphology N40.1 [facility] [id number] [place] [address] Apr, [facility] [id number] [place] [address] 13 Mar, 2017 Other chronic pain G89.29 ; Anxiety F41.9 and Neuropathy G62.9 [facility] [id number] [place] [address] 09 Mar, 2017 Type 2 diabetes mellitus with unspecified complications E11.8 and Other chronic pain G89.29 [facility] [address] [place] [address] 29 Feb, 2017 Neuropathy G62.9 [facility] [id number] [place] [address] 15 Feb, 2017 Other chronic pain G89.29 and Anxiety F41.9 [facility] [id number] [place] [address] Jan, [facility] [id number] [place] [address] Jan, Other chronic pain G89.29 and Anxiety F41.9 [facility] [id number] [place] [address] Dec, [facility] [id number] [place] [address] Dec, Other chronic pain G89.29 and Anxiety F41.9 [facility] [id number] [place] [address] Dec, [facility] [id number] [place] [address] Dec, Primary insomnia F51.01 and Neuropathy G62.9 [facility] [id number] [place] [address] Nov, Anxiety F41.9 and Other chronic pain G89.29 [facility] [id number] [place] [address] Nov, Type 2 diabetes mellitus with unspecified complications E11.8 ; Neuropathy G62.9 and Primary insomnia F51.01 [facility] [id number] [place] [address] October, Anxiety F41.9 and Other chronic pain G89.29 [facility] [id number] [place] [address] October, Other chronic pain G89.29 ; Type 2 diabetes mellitus with unspecified complications E11.8 and Hypoglycemia E16.2 [facility] [id number] [place] [address] Sep, Other chronic pain G89.29 and Anxiety F41.9 [facility] [id number] [place] [address] Sep, [facility] [address] [address] Aug, Other chronic pain G89.29 and Anxiety F41.9 [facility] [address] [address] Aug, Rash R21 and Pain of right hip joint M25.551 [facility] [id number] [place] [address] Aug, [facility] [address] [address] Aug, [facility] [address] [address] Aug, Other chronic pain G89.29 and Anxiety F41.9 [facility] [id number] [place] [address] Aug, Type 2 diabetes mellitus with unspecified complications E11.8 [facility] [id number] [place] [address] Jul, [facility] [id number] [place] [address] Jul, Bronchitis J40 and Non-intractable vomiting, presence of nausea not specified, unspecified vomiting type R11.10 [facility] [id number] [place] [address] Jul, [facility] [id number] [place] [address] Jul, Other chronic pain G89.29 and Anxiety F41.9 [facility] [id number] [place] [address] Jul, Type 2 diabetes mellitus with unspecified complications E11.8 [facility] [id number] [place] [address] Jun, Type 2 diabetes mellitus with unspecified complications E11.8 [facility] [id number] [place] [id number] Jun, Dental caries K02.9 [facility] [id number] [place] [address] Jun, [facility] [id number] [place] [id number] Jun, Dental examination Z01.20 [facility] [id number] [place] [address] Jun, Right corneal abrasion, initial encounter S05.01XA [facility] [id number] [place] [address] Jun, [facility] [id number] [place] [address] Jun, Dental examination Z01.20 [facility] [id number] [place] [address] Jun, [facility] [id number] [place] [address] Jun, Perforated ear drum, right H72.91 ; Tooth pain K08.89 ; Type 2 diabetes mellitus with unspecified complications E11.8 and Other chronic pain G89.29 [facility] [id number] [place] [address] Jun, [facility] [id number] [place] [address] Jun, Other chronic pain G89.29 and Anxiety F41.9 [facility] [id number] [place] [address] Jun, [facility] [address] [place] [address] May, Type 2 diabetes mellitus with unspecified complications E11.8 ; Benign prostatic hyperplasia with lower urinary tract symptoms, unspecified morphology N40.1 and Other chronic pain G89.29 [facility] [id number] [place] [address] 09 May, 2016 Other chronic pain G89.29 and Anxiety F41.9 [facility] [id number] [place] [address] Apr, Other chronic pain G89.29 and Anxiety F41.9 [facility] [address] [address] Mar, [facility] [address] [address] Mar, Anxiety F41.9 and Other chronic pain G89.29 [facility] [id number] [place] [address] Mar, Other chronic pain G89.29 and skilled nursing 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 Z79.891 [facility] [id number] [place] [address] Mar, Other chronic pain G89.29 ; termination clerk 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 Z79.891 and Anxiety F41.9 [facility] [id number] [place] [address] 30 Feb, 2016 Bronchitis J40 [facility] [id number] [place] [address] 19 Feb, 2016 Other chronic pain G89.29 [facility] [id number] [place] [address] 15 Feb, 2016 Type 2 diabetes mellitus with unspecified complications E11.8 [facility] [id number] [place] [address] Jan, Anxiety F41.9 [facility] [address] [place] [address] Jan, [facility] [id number] [place] [address] Jan, [facility] [id number] [place] [address] Jan, Type 2 diabetes mellitus with unspecified complications E11.8 and Other chronic pain G89.29 [facility] [id number] [place] [address] Jan, [facility] [id number] [place] [address] Jan, Dehydration E86.0 and Type 2 diabetes mellitus with unspecified complications E11.8 [facility] [id number] [place] [address] Jan, [facility] [id number] [place] [address] Dec, Anxiety F41.9 [facility] [id number] [place] [address] Dec, Encounter to establish care Z76.89 ; Type 2 diabetes mellitus with unspecified complications E11.8 ; termination clerk 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 ; Dorsalgia, unspecified M54.9 ; Other chronic pain G89.29 ; Insomnia, unspecified type G47.00 ; Neuropathy G62.9 and Bilateral tinnitus H93.13 [facility] [address] [place] [address] Dec, IMMUNIZATIONS No Known Immunizations SOCIAL HISTORY Never Assessed REASON FOR VISIT Lab (walk-in) PLAN OF CARE VITAL SIGNS MEDICATIONS Unknown Medications RESULTS Name Result Date Reference Range CBC 2017-10-10 WHITE BLOOD CELL COUNT 9.5 3.8-10.8 RED BLOOD CELL COUNT 4.55 4.20-5.80 HEMOGLOBIN 14.0 13.2-17.1 HEMATOCRIT 41.9 38.5-50.0 MCV 92.1 80.0-100.0 MCH 30.8 27.0-33.0 MCHC 33.4 32.0-36.0 RDW 13.1 11.0-15.0 PLATELET COUNT 235 140-400 MPV 8.9 7.5-12.5 ABSOLUTE NEUTROPHILS [phone] ABSOLUTE LYMPHOCYTES 3629 850-3900 ABSOLUTE MONOCYTES 646 200-950 ABSOLUTE EOSINOPHILS 133 15-500 ABSOLUTE BASOPHILS 38 0-200 NEUTROPHILS 53.2 LYMPHOCYTES 38.2 MONOCYTES 6.8 EOSINOPHILS 1.4 BASOPHILS 0.4 PROCEDURES Procedure Date Ordered Result Body Site COMPLETE CBC W/AUTO DIFF WBC October 10, 2017 INSTRUCTIONS MEDICATIONS ADMINISTERED No Known Medications MEDICAL (GENERAL) HISTORY Type Description Date Medical History Type 2 diabetes mellitus without complications Medical History skilled nursing (current) use of insulin Medical History Other [...]
--- OUTSIDE RECORDS SUMMARY | 2018-12-07 13:22 | XMS REPORT ---
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 Active 115117508 Problem Primary insomnia F51.01 Active 8060292 Problem Periodontitis K05.30 Active 62864419 Problem Benign prostatic hyperplasia with lower urinary tract symptoms, unspecified morphology N40.1 Active 937913203 Problem Neuropathy G62.9 Active 984021964 Problem Hypoglycemia E16.2 Active 882322028 ALLERGIES No Known Allergies ENCOUNTERS Encounter Location Date Diagnosis [facility] [id number] [place] [phone] Dec, [facility] [id number] [place] [phone] Nov, [facility] [id number] [place] [address] Nov, Hypertriglyceridemia E78.1 and Benign prostatic hyperplasia with lower urinary tract symptoms, unspecified morphology N40.1 [facility] [id number] [place] [address] Nov, Therapeutic drug monitoring Z51.81 ; Hypertriglyceridemia E78.1 ; Type 2 diabetes mellitus with unspecified complications E11.8 ; Tobacco abuse Z72.0 ; Chronic prescription opiate use Z79.891 and Chronically on benzodiazepine therapy Z79.899 [facility] [address] [place] [address] October, Neuropathy G62.9 [facility] [id number] [place] [address] October, Neuropathy G62.9 [facility] [address] [place] [address] October, [facility] [id number] [place] [address] Sep, [facility] [address] [place] [address] Sep, Anemia, unspecified type D64.9 [facility] [address] [place] [id number] [address] Sep, Anemia, unspecified type D64.9 [facility] [id number] [place] [address] Aug, [facility] [id number] [place] [address] Aug, Cellulitis of left lower extremity L03.116 [facility] [id number] [place] [address] Aug, Cellulitis of left knee L03.116 [facility] [id number] [place] [address] Aug, Cellulitis of left knee L03.116 [facility] [address] [place] [address] Aug, Hypertriglyceridemia E78.1 [facility] [id number] [place] [id number] Aug, [facility] [id number] [place] [phone] Jul, Hypertriglyceridemia E78.1 [facility] [id number] [place] [address] 08 Jul, 2017 Benign prostatic hyperplasia with lower urinary tract symptoms, unspecified morphology N40.1 [facility] [id number] [place] [id number] 02 Jul, 2017 [facility] [id number] [place] [phone] Jun, [facility] [id number] [place] [address] Jun, Hypertriglyceridemia E78.1 [facility] [id number] [place] [address] 10 Jun, 2017 Type 2 diabetes mellitus with unspecified complications E11.8 ; Encounter for immunization Z23 ; Neuropathy G62.9 ; Other chronic pain G89.29 and 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 [facility] [id number] [place] [phone] Jun, [facility] [id number] [place] [address] May, [facility] [id number] [place] [phone] Apr, Benign prostatic hyperplasia with lower urinary tract symptoms, unspecified morphology N40.1 [facility] [id number] [place] [address] Apr, [facility] [id number] [place] [address] 13 Mar, 2017 Other chronic pain G89.29 ; Anxiety F41.9 and Neuropathy G62.9 [facility] [id number] [place] [address] 09 Mar, 2017 Type 2 diabetes mellitus with unspecified complications E11.8 and Other chronic pain G89.29 [facility] [id number] [place] [phone] Feb, Neuropathy G62.9 [facility] [address] [place] [address] 15 Feb, 2017 Other chronic pain G89.29 and Anxiety F41.9 [facility] [id number] [place] [address] Jan, [facility] [id number] [place] [address] Jan, Other chronic pain G89.29 and Anxiety F41.9 [facility] [id number] [place] [address] Dec, [facility] [id number] [place] [address] Dec, Other chronic pain G89.29 and Anxiety F41.9 [facility] [id number] [place] [address] Dec, [facility] [id number] [place] [address] Dec, Primary insomnia F51.01 and Neuropathy G62.9 [facility] [id number] [place] [address] Nov, Anxiety F41.9 and Other chronic pain G89.29 [facility] [address] [place] [address] Nov, Type 2 diabetes mellitus with unspecified complications E11.8 ; Neuropathy G62.9 and Primary insomnia F51.01 [facility] [id number] [place] [address] October, Anxiety F41.9 and Other chronic pain G89.29 [facility] [id number] [place] [address] October, Other chronic pain G89.29 ; Type 2 diabetes mellitus with unspecified complications E11.8 and Hypoglycemia E16.2 [facility] [place] [id number] [place] [address] Sep, Other chronic pain G89.29 and Anxiety F41.9 [facility] [id number] [place] [address] Sep, [facility] [id number] [place] [address] Aug, Other chronic pain G89.29 and Anxiety F41.9 [facility] [id number] [place] [address] Aug, Rash R21 and Pain of right hip joint M25.551 [facility] [id number] [place] [address] Aug, [facility] [id number] [place] [address] Aug, [facility] [id number] [place] [address] Aug, Other chronic pain G89.29 and Anxiety F41.9 [facility] [id number] [place] [address] Aug, Type 2 diabetes mellitus with unspecified complications E11.8 [facility] [id number] [place] [address] Jul, [facility] [id number] [place] [address] Jul, Bronchitis J40 and Non-intractable vomiting, presence of nausea not specified, unspecified vomiting type R11.10 [facility] [id number] [place] [address] Jul, [facility] [id number] [place] [address] Jul, Other chronic pain G89.29 and Anxiety F41.9 [facility] [id number] [place] [address] Jul, Type 2 diabetes mellitus with unspecified complications E11.8 [facility] [id number] [place] [phone] Jun, Type 2 diabetes mellitus with unspecified complications E11.8 [facility] [id number] [place] [phone] Jun, Dental caries K02.9 [facility] [id number] [place] [address] Jun, [facility] [id number] [place] [id number] Jun, Dental examination Z01.20 [facility] [id number] [place] [phone] Jun, Right corneal abrasion, initial encounter S05.01XA [facility] [id number] [place] [address] Jun, [facility] [id number] [place] [address] Jun, Dental examination Z01.20 [facility] [id number] [place] [address] Jun, [facility] [id number] [place] [address] Jun, Perforated ear drum, right H72.91 ; Tooth pain K08.89 ; Type 2 diabetes mellitus with unspecified complications E11.8 and Other chronic pain G89.29 [facility] [address] [place] [address] Jun, [facility] [id number] [place] [address] Jun, Other chronic pain G89.29 and Anxiety F41.9 [facility] [id number] [place] [address] Jun, [facility] [address] [place] [address] May, Type 2 diabetes mellitus with unspecified complications E11.8 ; Benign prostatic hyperplasia with lower urinary tract symptoms, unspecified morphology N40.1 and Other chronic pain G89.29 [facility] [id number] [place] [address] May, Other chronic pain G89.29 and Anxiety F41.9 [facility] [id number] [place] [address] Apr, Other chronic pain G89.29 and Anxiety F41.9 [place] [address] [address] Mar, [place] [address] [address] Mar, Anxiety F41.9 and Other chronic pain G89.29 [facility] [id number] [place] [address] Mar, Other chronic pain G89.29 and tank terminal gauger 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 Z79.891 [facility] [id number] [place] [address] Mar, Other chronic pain G89.29 ; prison 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 Z79.891 and Anxiety F41.9 [facility] [id number] [place] [address] Feb, Bronchitis J40 [facility] [id number] [place] [address] Feb, Other chronic pain G89.29 [facility] [id number] [place] [address] 15 Feb, 2016 Type 2 diabetes mellitus with unspecified complications E11.8 [facility] [id number] [place] [address] Jan, Anxiety F41.9 [facility] [id number] [place] [address] Jan, [place] [address] [place] [address] Jan, [place] [id number] [place] [address] Jan, Type 2 diabetes mellitus with unspecified complications E11.8 and Other chronic pain G89.29 [place] [id number] [place] [address] Jan, [place] [address] [address] Jan, Dehydration E86.0 and Type 2 diabetes mellitus with unspecified complications E11.8 [place] [address] [address] Jan, [place] [address] [address] Dec, Anxiety F41.9 [place] [id number] [place] [address] Dec, Encounter to establish care Z76.89 ; Type 2 diabetes mellitus with unspecified complications E11.8 ; 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 ; Dorsalgia, unspecified M54.9 ; Other chronic pain G89.29 ; Insomnia, unspecified type G47.00 ; Neuropathy G62.9 and Bilateral tinnitus H93.13 [place] [id number] [place] [address] Dec, IMMUNIZATIONS Vaccine Route Administration Date Status ROCEPHIN 1 GM (IM) IM Intramuscular September 01, 2017 Administered SOCIAL HISTORY Never Assessed REASON FOR VISIT knee swelling JStrasserRN PLAN OF CARE Activity Details Follow Up prn Reason: VITAL SIGNS Height 53 in 2017-09-01 Weight 158.8 lbs 2017-09-01 Temperature 97.3 degrees Fahrenheit 2017-09-01 Heart Rate 116 bpm 2017-09-01 Respiratory Rate 22 2017-09-01 BMI 39.74 kg/m2 2017-09-01 Blood pressure systolic 130 mmHg 2017-09-01 Blood pressure diastolic 82 mmHg 2017-09-01 MEDICATIONS Medication Instructions Dosage Frequency Start Date End Date Duration Status MetFORMIN HCl ER 500 MG TAKE TWO TABLETS BY MOUTH TWICE DAILY 30 Active Ibuprofen 800 MG TAKE ONE TABLET BY MOUTH THREE TIMES DAILY 30 Active Atorvastatin Calcium 40 mg Orally Once a day 1 tablet 24h Jun, 30 day(s) Active Actos 45 MG Orally Once a day 1 tablet 24h Mar, Active Alprazolam 1 MG Orally Once a day 1 tablet at bedtime 24h 28 days Active Lantus SoloStar 100 UNIT/ML Subcutaneous 2 times a day Inject 20 units 12h Aug, Active Bactrim DS 800-160 MG Orally twice daily 1 tablet Aug, Aug, 10 day(s) Active [place] 3 1000 MG Orally Once a day 3 capsules 24h Aug, 30 days Active Tamsulosin HCl 0.4 MG Orally Once a day 1 capsule 24h Jul, 30 day(s) Active Hydrocodone-Acetaminophen 10-325 MG Orally 3 times a day 1 tablet 8h Aug, 28 days Active Levemir 100 UNIT/ML Subcutaneous 2 times a day Inject 35 units 12h Feb, 30 days Not-Taking Cialis 5 mg Orally Once a day 1 tablet 24h May, 90 days Active Ambien 5 mg Orally Once a day 1 tablet at bedtime 24h Nov, 28 days Not-Taking Lyrica 150 MG Orally 3 times a day 1 capsule 8h May, 90 days Active RESULTS No Results PROCEDURES Procedure Date Ordered Result Body Site ROCEPHIN 1 GM (IM) September 01, 2017 THER/PROPH/DIAG INJ, SC/IM September 01, 2017 INSTRUCTIONS MEDICATIONS ADMINISTERED No Known Medications MEDICAL (GENERAL) HISTORY Type Description Date Medical History Type 2 diabetes mellitus without complications Medical History prison (current) use of insulin Medical History Other [...]
--- OUTSIDE RECORDS SUMMARY | 2018-12-07 13:22 | XMS REPORT ---
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 Active 318047148 Problem Primary insomnia F51.01 Active 2844642 Problem Periodontitis K05.30 Active 27663567 Problem Benign prostatic hyperplasia with lower urinary tract symptoms, unspecified morphology N40.1 Active 093779888 Problem Neuropathy G62.9 Active 967500479 Problem Hypoglycemia E16.2 Active [id number] ALLERGIES No Known Allergies ENCOUNTERS Encounter Location Date Diagnosis [facility] [id number] [place] [id number] Dec, [facility] [id number] [place] [phone] Dec, [facility] [id number] [place] [phone] Nov, [facility] [id number] [place] [phone] Nov, Hypertriglyceridemia E78.1 and Benign prostatic hyperplasia with lower urinary tract symptoms, unspecified morphology N40.1 [facility] [id number] [place] [address] Nov, Therapeutic drug monitoring Z51.81 ; Hypertriglyceridemia E78.1 ; Type 2 diabetes mellitus with unspecified complications E11.8 ; Tobacco abuse Z72.0 ; Chronic prescription opiate use Z79.891 and Chronically on benzodiazepine therapy Z79.899 [facility] [id number] [place] [address] October, Neuropathy G62.9 [facility] [id number] [place] [phone] October, Neuropathy G62.9 [facility] [id number] [place] [phone] October, [facility] [id number] [place] [phone] Sep, [facility] [id number] [place] [phone] Sep, Anemia, unspecified type D64.9 [facility] [address] [place], [place] [id number] [place] [phone] Sep, Anemia, unspecified type D64.9 [facility] [id number] [place] [id number] Aug, [facility] [id number] [place] [phone] Aug, Cellulitis of left lower extremity L03.116 [facility] [id number] [place] [address] Aug, Cellulitis of left knee L03.116 [facility] [id number] [place] [id number] 15 Aug, 2017 Cellulitis of left knee L03.116 [facility] [id number] [place] [phone] Aug, Hypertriglyceridemia E78.1 [facility] [id number] [place] [phone] Aug, [facility] [id number] [place] [phone] 16 Jul, 2017 Hypertriglyceridemia E78.1 [facility] [id number] [place] [phone] 08 Jul, 2017 Benign prostatic hyperplasia with lower urinary tract symptoms, unspecified morphology N40.1 [facility] [id number] [place] [phone] 02 Jul, 2017 [facility] [id number] [place] [phone] Jun, [facility] [id number] [place] [phone] Jun, Hypertriglyceridemia E78.1 [facility] [id number] [place] [phone] Jun, Type 2 diabetes mellitus with unspecified complications E11.8 ; Encounter for immunization Z23 ; Neuropathy G62.9 ; Other chronic pain G89.29 and longterm 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 [facility] [id number] [place] [phone] Jun, [facility] [id number] [place] [phone] May, [facility] [id number] [place] [phone] Apr, Benign prostatic hyperplasia with lower urinary tract symptoms, unspecified morphology N40.1 [facility] [id number] [place] [phone] Apr, [facility] [id number] [place] [phone] 13 Mar, 2017 Other chronic pain G89.29 ; Anxiety F41.9 and Neuropathy G62.9 [facility] [id number] [place] [phone] 09 Mar, 2017 Type 2 diabetes mellitus with unspecified complications E11.8 and Other chronic pain G89.29 [facility] [address] [place] [address] 29 Feb, 2017 Neuropathy G62.9 [facility] [id number] [place] [phone] 15 Feb, 2017 Other chronic pain G89.29 and Anxiety F41.9 [facility] [id number] [place] [phone] Jan, [facility] [id number] [place] [address] Jan, Other chronic pain G89.29 and Anxiety F41.9 [facility] [id number] [place] [phone] Dec, [facility] [id number] [place] [address] Dec, Other chronic pain G89.29 and Anxiety F41.9 [facility] [id number] [place] [phone] Dec, [facility] [id number] [place] [address] Dec, Primary insomnia F51.01 and Neuropathy G62.9 [facility] [id number] [place] [phone] Nov, Anxiety F41.9 and Other chronic pain G89.29 [facility] [id number] [place] [phone] Nov, Type 2 diabetes mellitus with unspecified complications E11.8 ; Neuropathy G62.9 and Primary insomnia F51.01 [facility] [id number] [place] [address] October, Anxiety F41.9 and Other chronic pain G89.29 [facility] [id number] [place] [phone] October, Other chronic pain G89.29 ; Type 2 diabetes mellitus with unspecified complications E11.8 and Hypoglycemia E16.2 [facility] [id number] [place] [phone] Sep, Other chronic pain G89.29 and Anxiety F41.9 [facility] [id number] [place] [phone] Sep, [facility] [address] [address] Aug, Other chronic pain G89.29 and Anxiety F41.9 [facility] [address] [address] Aug, Rash R21 and Pain of right hip joint M25.551 [facility] [id number] [place] [phone] Aug, [facility] [address] [address] Aug, [facility] [address] [address] Aug, Other chronic pain G89.29 and Anxiety F41.9 [facility] [id number] [place] [phone] Aug, Type 2 diabetes mellitus with unspecified complications E11.8 [facility] [id number] [place] [phone] Jul, [facility] [id number] [place] [address] Jul, Bronchitis J40 and Non-intractable vomiting, presence of nausea not specified, unspecified vomiting type R11.10 [facility] [id number] [place] [address] Jul, [facility] [id number] [place] [address] Jul, Other chronic pain G89.29 and Anxiety F41.9 [facility] [id number] [place] [phone] Jul, Type 2 diabetes mellitus with unspecified complications E11.8 [facility] [id number] [place] [phone] Jun, Type 2 diabetes mellitus with unspecified complications E11.8 [facility] [id number] [place] [id number] Jun, Dental caries K02.9 [facility] [id number] [place] [id number] Jun, [facility] [id number] [place] [phone] Jun, Dental examination Z01.20 [facility] [id number] [place] [id number] Jun, Right corneal abrasion, initial encounter S05.01XA [facility] [id number] [place] [phone] Jun, [facility] [id number] [place] [phone] Jun, Dental examination Z01.20 [facility] [id number] [place] [address] Jun, [facility] [id number] [place] [address] Jun, Perforated ear drum, right H72.91 ; Tooth pain K08.89 ; Type 2 diabetes mellitus with unspecified complications E11.8 and Other chronic pain G89.29 [facility] [id number] [place] [address] Jun, [facility] [id number] [place] [phone] Jun, Other chronic pain G89.29 and Anxiety F41.9 [facility] [id number] [place] [phone] Jun, [facility] [id number] [place] [address] May, Type 2 diabetes mellitus with unspecified complications E11.8 ; Benign prostatic hyperplasia with lower urinary tract symptoms, unspecified morphology N40.1 and Other chronic pain G89.29 [facility] [id number] [place] [address] 09 May, 2016 Other chronic pain G89.29 and Anxiety F41.9 [facility] [id number] [place] [address] Apr, Other chronic pain G89.29 and Anxiety F41.9 [facility] [address] [address] Mar, [facility] [address] [address] Mar, Anxiety F41.9 and Other chronic pain G89.29 [facility] [id number] [place] [address] Mar, Other chronic pain G89.29 and longterm 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 Z79.891 [facility] [id number] [place] [address] Mar, Other chronic pain G89.29 ; longterm 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 Z79.891 and Anxiety F41.9 [facility] [id number] [place] [phone] 30 Feb, 2016 Bronchitis J40 [facility] [id number] [place] [address] 19 Feb, 2016 Other chronic pain G89.29 [facility] [id number] [place] [phone] 15 Feb, 2016 Type 2 diabetes mellitus with unspecified complications E11.8 [facility] [id number] [place] [phone] Jan, Anxiety F41.9 [facility] [address] [address] Jan, [facility] [id number] [place] [phone] Jan, [facility] [id number] [place] [phone] Jan, Type 2 diabetes mellitus with unspecified complications E11.8 and Other chronic pain G89.29 [facility] [id number] [place] [phone] Jan, [facility] [id number] [place] [phone] Jan, Dehydration E86.0 and Type 2 diabetes mellitus with unspecified complications E11.8 [facility] [id number] [place] [phone] Jan, [facility] [id number] [place] [address] Dec, Anxiety F41.9 [facility] [id number] [place] [phone] Dec, Encounter to establish care Z76.89 ; Type 2 diabetes mellitus with unspecified complications E11.8 ; 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 Reports was working in an attic an d something stabbed his knee. He has been doing daily dressing changes. Reports hydrocodone is not working for the pain. Had I&D while in the hospital, culture and sensitivity was done also. Taking abx. CBrumbackRn PLAN OF CARE Activity Details Follow Up prn Reason: VITAL SIGNS Height 53 in 2017-09-09 Weight 156.4 lbs 2017-09-09 Temperature 97.8 degrees Fahrenheit 2017-09-09 Heart Rate 104 bpm 2017-09-09 Respiratory Rate 20 2017-09-09 BMI 39.14 kg/m2 2017-09-09 Blood pressure systolic 122 mmHg 2017-09-09 Blood pressure diastolic 68 mmHg 2017-09-09 MEDICATIONS Medication Instructions Dosage Frequency Start Date End Date Duration Status Lantus SoloStar 100 UNIT/ML Subcutaneous 2 times a day Inject 20 units 12h Aug, Active Tamsulosin HCl 0.4 MG Orally Once a day 1 capsule 24h 08 Jul, 2017 30 day(s) Active Actos 45 MG Orally Once a day 1 tablet 24h Mar, Active Lyrica 150 MG Orally 3 times a day 1 capsule 8h May, 90 days Active Ibuprofen 800 MG TAKE ONE TABLET BY MOUTH THREE TIMES DAILY 30 Active [place] 3 1000 MG Orally Once a day 3 capsules 24h Aug, 30 days Not-Taking Bactrim DS 800-160 MG Orally twice daily 1 tablet Aug, Aug, 10 day(s) Not-Taking MetFORMIN HCl ER 500 MG TAKE TWO TABLETS BY MOUTH TWICE DAILY 30 Active Atorvastatin Calcium 40 mg Orally Once a day 1 tablet 24h Jun, 30 day(s) Not-Taking Hydrocodone-Acetaminophen 10-325 MG Orally 3 times a day 1 tablet 8h Aug, 28 days Active Levemir 100 UNIT/ML Subcutaneous 2 times a day Inject 35 units 12h Feb, 30 days Not-Taking Cialis 5 mg Orally Once a day 1 tablet 24h May, 90 days Active Alprazolam 1 MG Orally Once a day 1 tablet at bedtime 24h 28 days Active Ambien 5 mg Orally Once a day 1 tablet at bedtime 24h Nov, 28 days Not-Taking RESULTS No Results PROCEDURES No Known procedures INSTRUCTIONS MEDICATIONS ADMINISTERED No Known Medications MEDICAL (GENERAL) HISTORY Type Description Date Medical History Type 2 diabetes mellitus without complications Medical History longterm (current) use of insulin Medical History Other [...]
--- OUTSIDE RECORDS SUMMARY | 2018-12-07 13:22 | XMS REPORT ---
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 Active 795965619 Problem Primary insomnia F51.01 Active 1789094 Problem Periodontitis K05.30 Active 80370081 Problem Benign prostatic hyperplasia with lower urinary tract symptoms, unspecified morphology N40.1 Active 596529745 Problem Neuropathy G62.9 Active 976028864 Problem Hypoglycemia E16.2 Active 587715889 ALLERGIES No Known Allergies ENCOUNTERS Encounter Location Date Diagnosis [facility] [id number] [place] [phone] Dec, [facility] [id number] [place] [phone] Nov, [facility] [id number] [place] [phone] Nov, Hypertriglyceridemia E78.1 and Benign prostatic hyperplasia with lower urinary tract symptoms, unspecified morphology N40.1 [facility] [id number] [place] [phone] Nov, Therapeutic drug monitoring Z51.81 ; Hypertriglyceridemia E78.1 ; Type 2 diabetes mellitus with unspecified complications E11.8 ; Tobacco abuse Z72.0 ; Chronic prescription opiate use Z79.891 and Chronically on benzodiazepine therapy Z79.899 [facility] [address] [address] October, Neuropathy G62.9 [facility] [id number] [place] [address] October, Neuropathy G62.9 [facility] [id number] [place] [address] October, [facility] [id number] [place] [phone] Sep, [facility] [id number] [place] [address] Sep, Anemia, unspecified type D64.9 [facility] [address] [place], [place] [id number] [address] Sep, Anemia, unspecified type D64.9 [facility] [id number] [place] [phone] Aug, [facility] [id number] [place] [address] Aug, Cellulitis of left lower extremity L03.116 [facility] [id number] [place] [address] Aug, Cellulitis of left knee L03.116 [facility] [id number] [place] [address] Aug, Cellulitis of left knee L03.116 [facility] [id number] [place] [address] Aug, Hypertriglyceridemia E78.1 [facility] [id number] [place] [phone] Aug, [facility] [id number] [place] [phone] Jul, Hypertriglyceridemia E78.1 [facility] [id number] [place] [phone] 08 Jul, 2017 Benign prostatic hyperplasia with lower urinary tract symptoms, unspecified morphology N40.1 [facility] [id number] [place] [phone] 02 Jul, 2017 [facility] [id number] [place] [phone] Jun, [facility] [id number] [place] [phone] Jun, Hypertriglyceridemia E78.1 [facility] [id number] [place] [phone] 10 Jun, 2017 Type 2 diabetes mellitus with unspecified complications E11.8 ; Encounter for immunization Z23 ; Neuropathy G62.9 ; Other chronic pain G89.29 and 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 [facility] [id number] [place] [phone] Jun, [facility] [id number] [place] [phone] May, [facility] [id number] [place] [phone] Apr, Benign prostatic hyperplasia with lower urinary tract symptoms, unspecified morphology N40.1 [facility] [id number] [place] [phone] Apr, [facility] [id number] [place] [phone] 13 Mar, 2017 Other chronic pain G89.29 ; Anxiety F41.9 and Neuropathy G62.9 [facility] [id number] [place] [phone] 09 Mar, 2017 Type 2 diabetes mellitus with unspecified complications E11.8 and Other chronic pain G89.29 [facility] [id number] [place] [phone] Feb, Neuropathy G62.9 [facility] [address] [place] [address] 15 Feb, 2017 Other chronic pain G89.29 and Anxiety F41.9 [facility] [id number] [place] [phone] Jan, [facility] [id number] [place] [address] Jan, Other chronic pain G89.29 and Anxiety F41.9 [facility] [id number] [place] [phone] Dec, [facility] [facility] [id number] [place] [address] Dec, Other chronic pain G89.29 and Anxiety F41.9 [facility] [id number] [place] [address] Dec, [facility] [id number] [place] [address] Dec, Primary insomnia F51.01 and Neuropathy G62.9 [facility] [id number] [place] [address] Nov, Anxiety F41.9 and Other chronic pain G89.29 [facility] [id number] [place] [address] Nov, Type 2 diabetes mellitus with unspecified complications E11.8 ; Neuropathy G62.9 and Primary insomnia F51.01 [facility] [id number] [place] [phone] October, Anxiety F41.9 and Other chronic pain G89.29 [facility] [id number] [place] [address] October, Other chronic pain G89.29 ; Type 2 diabetes mellitus with unspecified complications E11.8 and Hypoglycemia E16.2 [facility] [facility] [id number] [place] [address] Sep, Other chronic pain G89.29 and Anxiety F41.9 [facility] [id number] [place] [address] Sep, [facility] [id number] [place] [address] Aug, Other chronic pain G89.29 and Anxiety F41.9 [facility] [id number] [place] [address] Aug, Rash R21 and Pain of right hip joint M25.551 [facility] [id number] [place] [phone] Aug, [facility] [id number] [place] [phone] Aug, [facility] [facility] [id number] [place] [address] Aug, Other chronic pain G89.29 and Anxiety F41.9 [facility] [id number] [place] [phone] Aug, Type 2 diabetes mellitus with unspecified complications E11.8 [facility] [id number] [place] [phone] Jul, [facility] [facility] [id number] [place] [phone] Jul, Bronchitis J40 and Non-intractable vomiting, presence of nausea not specified, unspecified vomiting type R11.10 [facility] [id number] [place] [address] Jul, [facility] [id number] [place] [address] Jul, Other chronic pain G89.29 and Anxiety F41.9 [facility] [id number] [place] [phone] Jul, Type 2 diabetes mellitus with unspecified complications E11.8 [facility] [facility] [id number] [place] [phone] Jun, Type 2 diabetes mellitus with unspecified complications E11.8 [facility] [id number] [place] [id number] Jun, Dental caries K02.9 [facility] [id number] [place] [phone] Jun, [facility] [id number] [place] [id number] Jun, Dental examination Z01.20 [facility] [id number] [place] [phone] Jun, Right corneal abrasion, initial encounter S05.01XA [facility] [id number] [place] [phone] Jun, [facility] [id number] [place] [phone] Jun, Dental examination Z01.20 [facility] [id number] [place] [phone] Jun, [facility] [id number] [place] [address] Jun, Perforated ear drum, right H72.91 ; Tooth pain K08.89 ; Type 2 diabetes mellitus with unspecified complications E11.8 and Other chronic pain G89.29 [facility] [id number] [place] [address] Jun, [facility] [id number] [place] [phone] Jun, Other chronic pain G89.29 and Anxiety F41.9 [facility] [id number] [place] [phone] Jun, [facility] [id number] [place] [phone] May, Type 2 diabetes mellitus with unspecified complications E11.8 ; Benign prostatic hyperplasia with lower urinary tract symptoms, unspecified morphology N40.1 and Other chronic pain G89.29 [facility] [id number] [place] [address] May, Other chronic pain G89.29 and Anxiety F41.9 [facility] [id number] [place] [address] Apr, Other chronic pain G89.29 and Anxiety F41.9 [place] [address] [address] Mar, [place] [address] [address] Mar, Anxiety F41.9 and Other chronic pain G89.29 [facility] [facility] [id number] [place] [phone] Mar, Other chronic pain G89.29 and 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 Z79.891 [facility] [facility] [id number] [place] [address] Mar, Other chronic pain G89.29 ; alf 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 Z79.891 and Anxiety F41.9 [facility] [id number] [place] [phone] Feb, Bronchitis J40 [facility] [id number] [place] [address] Feb, Other chronic pain G89.29 [facility] [id number] [place] [phone] 15 Feb, 2016 Type 2 diabetes mellitus with unspecified complications E11.8 [facility] [id number] [place] [phone] Jan, Anxiety F41.9 [facility] [id number] [place] [phone] Jan, [place] [id number] [place] [address] Jan, [place] [id number] [place] [phone] Jan, Type 2 diabetes mellitus with unspecified complications E11.8 and Other chronic pain G89.29 [place] [id number] [place] [address] Jan, [place] [id number] [place] [phone] Jan, Dehydration E86.0 and Type 2 diabetes mellitus with unspecified complications E11.8 [place] [facility] [id number] [place] [phone] Jan, [place] [facility] [id number] [place] [phone] Dec, Anxiety F41.9 [place] [id number] [place] [address] Dec, Encounter to establish care Z76.89 ; Type 2 diabetes mellitus with unspecified complications E11.8 ; 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 pt was here yesterday for the same complaint.. here fo r re evaluation. [email or web address] PLAN OF CARE Activity Details Follow Up prn Reason: VITAL SIGNS Height 53 in 2017-09-02 Weight 158.4 lbs 2017-09-02 Temperature 99.0 degrees Fahrenheit 2017-09-02 Heart Rate 117 bpm 2017-09-02 Respiratory Rate 22 2017-09-02 BMI 39.64 kg/m2 2017-09-02 Blood pressure systolic 136 mmHg 2017-09-02 Blood pressure diastolic 76 mmHg 2017-09-02 MEDICATIONS Medication Instructions Dosage Frequency Start Date End Date Duration Status Lant SoloStar 100 UNIT/ML Subcutaneous 2 times a day Inject 20 units 12h Aug, Active Atorvastatin Calcium 40 mg Orally Once a day 1 tablet 24h Jun, 30 day(s) Active Lyrica 150 MG Orally 3 times a day 1 capsule 8h 15 May, 2016 90 days Active Actos 45 MG Orally Once a day 1 tablet 24h Mar, Active Tamsulosin HCl 0.4 MG Orally Once a day 1 capsule 24h Jul, 30 day(s) Active Levemir 100 UNIT/ML Subcutaneous 2 times a day Inject 35 units 12h 15 Feb, 2016 30 days Not-Taking [place] 3 1000 MG Orally Once a day 3 capsules 24h Aug, 30 days Active Ibuprofen 800 MG TAKE ONE TABLET BY MOUTH THREE TIMES DAILY 30 Active Hydrocodone-Acetaminophen 10-325 MG Orally 3 times a day 1 tablet 8h Aug, 28 days Active MetFORMIN HCl ER 500 MG TAKE TWO TABLETS BY MOUTH TWICE DAILY 30 Active Alprazolam 1 MG Orally Once a day 1 tablet at bedtime 24h 28 days Active Cialis 5 mg Orally Once a day 1 tablet 24h May, 90 days Active Ambien 5 mg Orally Once a day 1 tablet at bedtime 24h Nov, 28 days Not-Taking Bactrim DS 800-160 MG Orally twice daily 1 tablet Aug, Aug, 10 day(s) Active RESULTS No Results PROCEDURES No Known procedures INSTRUCTIONS MEDICATIONS ADMINISTERED No Known Medications MEDICAL (GENERAL) HISTORY Type Description Date Medical History Type 2 diabetes mellitus without complications Medical History 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
--- OUTSIDE RECORDS SUMMARY | 2018-12-07 13:23 | XMS REPORT ---
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 Name Role Phone SARAH GOLDMAN Unavailable PROBLEMS Type Condition ICD9-CM Code [id number] Code Onset Dates Condition Status SNOMED Code Problem Type 2 diabetes mellitus with unspecified complications E11.8 Active 40421265 Problem Other chronic pain G89.29 Active 05000310 Problem Anxiety F41.9 Active 96895020 Problem Hypertriglyceridemia E78.1 Active 858284493 Problem [facility] 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 Active 849463146 Problem Primary insomnia F51.01 Active 7293408 Problem Periodontitis K05.30 Active 53987336 Problem Benign prostatic hyperplasia with lower urinary tract symptoms, unspecified morphology N40.1 Active 942712993 Problem Neuropathy G62.9 Active 566130737 Problem Hypoglycemia E16.2 Active [id number] ALLERGIES No Information ENCOUNTERS Encounter Location Date Diagnosis [facility] [facility] [id number] [place] [address] Dec, [place] [facility] [id number] [place] [address] Nov, Hypertriglyceridemia E78.1 and Benign prostatic hyperplasia with lower urinary tract symptoms, unspecified morphology N40.1 [facility] [id number] [place] [address] Nov, Therapeutic drug monitoring Z51.81 ; Hypertriglyceridemia E78.1 ; Type 2 diabetes mellitus with unspecified complications E11.8 ; Tobacco abuse Z72.0 ; Chronic prescription opiate use Z79.891 and Chronically on benzodiazepine therapy Z79.899 [place] [facility] [id number] [place] [address] October, Neuropathy G62.9 [place] [address] [address] October, Neuropathy G62.9 [facility] [id number] [place] [address] October, [facility] [id number] [address] Sep, [facility] [id number] [place] [address] Sep, Anemia, unspecified type D64.9 [facility] [address] [id number] [address] Sep, Anemia, unspecified type D64.9 [facility] [address] [address] Aug, [facility] [id number] [place] [address] Aug, Cellulitis of left lower extremity L03.116 [facility] [id number] [place] [address] Aug, Cellulitis of left knee L03.116 [facility] [address] [address] Aug, Cellulitis of left knee L03.116 [facility] [id number] [place] [address] Aug, Hypertriglyceridemia E78.1 [facility] [address] [address] Aug, [facility] [id number] [place] [address] Jul, Hypertriglyceridemia E78.1 [facility] [address] [address] Jul, Benign prostatic hyperplasia with lower urinary tract symptoms, unspecified morphology N40.1 [facility] [id number] [place] [address] 02 Jul, 2017 [place] [id number] [place] [address] Jun, [facility] [facility] [id number] [place] [address] Jun, Hypertriglyceridemia E78.1 [place] [address] [address] 10 Jun, 2017 Type 2 diabetes mellitus with unspecified complications E11.8 ; Encounter for immunization Z23 ; Neuropathy G62.9 ; 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 G89.29 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 [place] [id number] [place] [address] Jun, [place] [address] [address] May, [place] [id number] [place] [address] Apr, Benign prostatic hyperplasia with lower urinary tract symptoms, unspecified morphology N40.1 [facility] [facility] [id number] [place] [address] Apr, [facility] [facility] [id number] [place] [address] Mar, Other chronic pain G89.29 ; Anxiety F41.9 and Neuropathy G62.9 [place] [id number] [place] [address] 09 Mar, 2017 Type 2 diabetes mellitus with unspecified complications E11.8 and Other chronic pain G89.29 [facility] [facility] [id number] [place] [address] 29 Feb, 2017 Neuropathy G62.9 [facility] [facility] [id number] [place] [address] 15 Feb, 2017 Other chronic pain G89.29 and Anxiety F41.9 [place] [facility] [id number] [place] [address] Jan, [facility] [id number] [place] [address] Jan, Other chronic pain G89.29 and Anxiety F41.9 [facility] [id number] [place] [address] Dec, [facility] [id number] [place] [address] Dec, Other chronic pain G89.29 and Anxiety F41.9 [place] [address] [address] Dec, [place] [facility] [id number] [place] [address] Dec, Primary insomnia F51.01 and Neuropathy G62.9 [place] [id number] [place] [address] Nov, Anxiety F41.9 and Other chronic pain G89.29 [place] [id number] [place] [address] Nov, Type 2 diabetes mellitus with unspecified complications E11.8 ; Neuropathy G62.9 and Primary insomnia F51.01 [place] [id number] [place] [address] October, Anxiety F41.9 and Other chronic pain G89.29 [place] [id number] [place] [address] October, Other chronic pain G89.29 ; Type 2 diabetes mellitus with unspecified complications E11.8 and Hypoglycemia E16.2 [place] [id number] [place] [address] Sep, Other chronic pain G89.29 and Anxiety F41.9 [place] [id number] [place] [address] Sep, [place] [id number] [place] [address] Aug, Other chronic pain G89.29 and Anxiety F41.9 [place] [id number] [place] [address] Aug, Rash R21 and Pain of right hip joint M25.551 [place] [facility] [id number] [place] [address] Aug, [place] [id number] [place] [address] Aug, [place] [id number] [place] [address] Aug, Other chronic pain G89.29 and Anxiety F41.9 [place] [id number] [place] [address] Aug, Type 2 diabetes mellitus with unspecified complications E11.8 [place] [id number] [place] [address] Jul, [place] [id number] [place] [address] Jul, Bronchitis J40 and Non-intractable vomiting, presence of nausea not specified, unspecified vomiting type R11.10 [place] [id number] [place] [address] Jul, [place] [id number] [place] [address] Jul, Other chronic pain G89.29 and Anxiety F41.9 [place] [id number] [place], [place] [phone] Jul, Type 2 diabetes mellitus with unspecified complications E11.8 [place] [id number] [place] [address] Jun, Type 2 diabetes mellitus with unspecified complications E11.8 [facility] [id number] [place] [id number] Jun, Dental caries K02.9 [facility] [id number] [place] [address] Jun, [facility] [id number] [place] [id number] Jun, Dental examination Z01.20 [facility] [id number] [place] [address] Jun, Right corneal abrasion, initial encounter S05.01XA [facility] [address] [address] Jun, [facility] [id number] [place] [address] Jun, Dental examination Z01.20 [place] [id number] [place] [address] Jun, [facility] [id number] [place] [address] Jun, Perforated ear drum, right H72.91 ; Tooth pain K08.89 ; Type 2 diabetes mellitus with unspecified complications E11.8 and Other chronic pain G89.29 [facility] [id number] [place] [address] Jun, [facility] [id number] [place] [address] Jun, Other chronic pain G89.29 and Anxiety F41.9 [facility] [id number] [place] [address] Jun, [facility] [id number] [place] [address] May, Type 2 diabetes mellitus with unspecified complications E11.8 ; Benign prostatic hyperplasia with lower urinary tract symptoms, unspecified morphology N40.1 and Other chronic pain G89.29 [facility] [id number] [place] [address] 09 May, 2016 Other chronic pain G89.29 and Anxiety F41.9 [facility] [id number] [place] [address] Apr, Other chronic pain G89.29 and Anxiety F41.9 [facility] [address] [address] Mar, [facility] [address] [address] 17 Mar, 2016 Anxiety F41.9 and Other chronic pain G89.29 [facility] [id number] [place] [address] Mar, Other chronic pain G89.29 and 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 [facility] [address] [address] Mar, Other chronic pain G89.29 ; [facility] 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 Z79.891 and Anxiety F41.9 [facility] [address] [address] 30 Feb, 2016 Bronchitis J40 [facility] [id number] [place] [address] 19 Feb, 2016 Other chronic pain G89.29 [facility] [id number] [place] [address] 15 Feb, 2016 Type 2 diabetes mellitus with unspecified complications E11.8 [facility] [id number] [place] [address] Jan, Anxiety F41.9 [facility] [id number] [place] [address] Jan, [facility] [id number] [place] [address] Jan, [place] [address] [address] Jan, Type 2 diabetes mellitus with unspecified complications E11.8 and Other chronic pain G89.29 [place] [address] [address] Jan, [place] [id number] [place] [address] Jan, Dehydration E86.0 and Type 2 diabetes mellitus with unspecified complications E11.8 [place] [id number] [place] [address] Jan, [place] [id number] [place] [address] Dec, Anxiety F41.9 [place] [id number] [place] [address] Dec, Encounter to establish care Z76.89 ; Type 2 diabetes mellitus with unspecified complications E11.8 ; 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 ; Dorsalgia, unspecified M54.9 ; Other chronic pain G89.29 ; Insomnia, unspecified type G47.00 ; Neuropathy G62.9 and Bilateral tinnitus H93.13 [place] [address] [address] Dec, IMMUNIZATIONS No Known Immunizations SOCIAL HISTORY Never Assessed REASON FOR VISIT 1 yr f/u DM Ed PLAN OF CARE VITAL SIGNS MEDICATIONS Unknown Medications RESULTS No Results PROCEDURES No Known procedures INSTRUCTIONS MEDICATIONS ADMINISTERED No Known Medications MEDICAL (GENERAL) HISTORY Type Description Date Medical History Type 2 diabetes mellitus without complications Medical History [facility] (current) use of insulin Medical History Other [...]
--- OUTSIDE RECORDS SUMMARY | 2018-12-07 13:23 | XMS REPORT ---
Author Author SARAH GOLDMAN Organization [facility] Address [address] [place] [address] Care Team Providers Care Digital Asset Coordinator Name Role Phone SARAH GOLDMAN Unavailable PROBLEMS Type Condition ICD9-CM Code [id number] Code Onset Dates Condition Status SNOMED Code Problem Type 2 diabetes mellitus with unspecified complications E11.8 Active 58942458 Problem Other chronic pain G89.29 Active 52104473 Problem Anxiety F41.9 Active 35891690 Problem Hypertriglyceridemia E78.1 Active 622400707 Problem senior living 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 Active 830346858 Problem Primary insomnia F51.01 Active 2426118 Problem Periodontitis K05.30 Active 94723165 Problem Benign prostatic hyperplasia with lower urinary tract symptoms, unspecified morphology N40.1 Active 117030370 Problem Neuropathy G62.9 Active 249202618 Problem Hypoglycemia E16.2 Active 323464555 ALLERGIES No Information ENCOUNTERS Encounter Location Date Diagnosis [place] [id number] [place] [address] Dec, [place] [id number] [place] [address] Nov, [place] [id number] [place] [address] Nov, Hypertriglyceridemia E78.1 and Benign prostatic hyperplasia with lower urinary tract symptoms, unspecified morphology N40.1 [place] [id number] [place] [address] 06 Nov, 2017 Therapeutic drug monitoring Z51.81 ; Hypertriglyceridemia E78.1 ; Type 2 diabetes mellitus with unspecified complications E11.8 ; Tobacco abuse Z72.0 ; Chronic prescription opiate use Z79.891 and Chronically on benzodiazepine therapy Z79.899 [place] [id number] [address] October, Neuropathy G62.9 [facility] [id number] [place] [address] October, Neuropathy G62.9 [facility] [id number] [place] [address] October, [facility] [id number] [place] [address] Sep, [facility] [id number] [place] [address] Sep, Anemia, unspecified type D64.9 [facility] [address] [place], [place] [address] [address] Sep, Anemia, unspecified type D64.9 [facility] [id number] [place] [address] Aug, [facility] [id number] [place] [address] Aug, Cellulitis of left lower extremity L03.116 [facility] [id number] [place] [address] Aug, Cellulitis of left knee L03.116 [facility] [id number] [place] [address] Aug, Cellulitis of left knee L03.116 [facility] [id number] [place] [address] Aug, Hypertriglyceridemia E78.1 [facility] [id number] [place] [address] Aug, [facility] [id number] [place] [address] Jul, Hypertriglyceridemia E78.1 [facility] [id number] [place] [address] 08 Jul, 2017 Benign prostatic hyperplasia with lower urinary tract symptoms, unspecified morphology N40.1 [facility] [id number] [place] [address] 02 Jul, 2017 [facility] [id number] [place] [address] Jun, [place] [id number] [place] [address] Jun, Hypertriglyceridemia E78.1 [place] [id number] [place] [address] 10 Jun, 2017 Type 2 diabetes mellitus with unspecified complications E11.8 ; Encounter for immunization Z23 ; Neuropathy G62.9 ; Other chronic 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.29 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 [place] [id number] [place] [address] Jun, [place] [id number] [place] [address] May, [place] [id number] [place] [address] Apr, Benign prostatic hyperplasia with lower urinary tract symptoms, unspecified morphology N40.1 [place] [id number] [place] [address] Apr, [place] [id number] [place] [address] Mar, Other chronic pain G89.29 ; Anxiety F41.9 and Neuropathy G62.9 [place] [id number] [place] [address] 09 Mar, 2017 Type 2 diabetes mellitus with unspecified complications E11.8 and Other chronic pain G89.29 [place] [id number] [place] [address] Feb, Neuropathy G62.9 [place] [address] [place] [address] 15 Feb, 2017 Other chronic pain G89.29 and Anxiety F41.9 [facility] [id number] [place] [address] Jan, [facility] [id number] [place] [address] Jan, Other chronic pain G89.29 and Anxiety F41.9 [facility] [id number] [place] [address] Dec, [place] [id number] [place] [address] Dec, Other chronic pain G89.29 and Anxiety F41.9 [place] [id number] [place] [address] Dec, [place] [id number] [place] [address] Dec, Primary insomnia F51.01 and Neuropathy G62.9 [place] [id number] [place] [address] Nov, Anxiety F41.9 and Other chronic pain G89.29 [place] [id number] [place] [address] Nov, Type 2 diabetes mellitus with unspecified complications E11.8 ; Neuropathy G62.9 and Primary insomnia F51.01 [facility] [id number] [place] [address] October, Anxiety F41.9 and Other chronic pain G89.29 [place] [id number] [place] [address] October, Other chronic pain G89.29 ; Type 2 diabetes mellitus with unspecified complications E11.8 and Hypoglycemia E16.2 [place] [id number] [place] [address] Sep, Other chronic pain G89.29 and Anxiety F41.9 [facility] [id number] [place] [address] Sep, [facility] [id number] [place] [address] Aug, Other chronic pain G89.29 and Anxiety F41.9 [facility] [id number] [place] [address] Aug, Rash R21 and Pain of right hip joint M25.551 [facility] [id number] [place] [address] Aug, [facility] [id number] [place] [address] Aug, [facility] [id number] [place] [address] Aug, Other chronic pain G89.29 and Anxiety F41.9 [facility] [id number] [place] [address] Aug, Type 2 diabetes mellitus with unspecified complications E11.8 [facility] [id number] [place] [address] Jul, [facility] [id number] [place] [address] Jul, Bronchitis J40 and Non-intractable vomiting, presence of nausea not specified, unspecified vomiting type R11.10 [facility] [id number] [place] [address] Jul, [facility] [id number] [place] [address] Jul, Other chronic pain G89.29 and Anxiety F41.9 [facility] [id number] [place] [address] Jul, Type 2 diabetes mellitus with unspecified complications E11.8 [place] [address] [place] [address] Jun, Type 2 diabetes mellitus with unspecified complications E11.8 [facility] [id number] [place] [phone] Jun, Dental caries K02.9 [facility] [id number] [place] [address] Jun, [facility] [id number] [place] [phone] Jun, Dental examination Z01.20 [facility] [id number] [place] [address] Jun, Right corneal abrasion, initial encounter S05.01XA [facility] [id number] [place] [address] Jun, [facility] [id number] [place] [address] Jun, Dental examination Z01.20 [facility] [id number] [place] [address] Jun, [facility] [id number] [place] [address] Jun, Perforated ear drum, right H72.91 ; Tooth pain K08.89 ; Type 2 diabetes mellitus with unspecified complications E11.8 and Other chronic pain G89.29 [facility] [id number] [place] [address] Jun, [facility] [id number] [place] [address] Jun, Other chronic pain G89.29 and Anxiety F41.9 [facility] [id number] [place] [address] Jun, [facility] [id number] [place] [address] May, Type 2 diabetes mellitus with unspecified complications E11.8 ; Benign prostatic hyperplasia with lower urinary tract symptoms, unspecified morphology N40.1 and Other chronic pain G89.29 [facility] [id number] [place], [place] [phone] May, Other chronic pain G89.29 and Anxiety F41.9 [facility] [id number] [place] [address] Apr, Other chronic pain G89.29 and Anxiety F41.9 [place] [address] [address] Mar, [place] [address] [address] Mar, Anxiety F41.9 and Other chronic pain G89.29 [place] [id number] [place] [address] Mar, Other chronic pain G89.29 and senior living 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 Z79.891 [facility] [id number] [place] [address] Mar, Other chronic pain G89.29 ; senior living 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 Z79.891 and Anxiety F41.9 [facility] [id number] [place] [address] Feb, Bronchitis J40 [facility] [id number] [place] [address] Feb, Other chronic pain G89.29 [facility] [id number] [place] [address] 15 Feb, 2016 Type 2 diabetes mellitus with unspecified complications E11.8 [facility] [id number] [place] [address] Jan, Anxiety F41.9 [facility] [id number] [place] [address] Jan, [place] [address] [place] [address] Jan, [place] [id number] [place] [address] Jan, Type 2 diabetes mellitus with unspecified complications E11.8 and Other chronic pain G89.29 [place] [id number] [place] [address] Jan, [place] [id number] [place] [address] Jan, Dehydration E86.0 and Type 2 diabetes mellitus with unspecified complications E11.8 [place] [id number] [place] [address] Jan, [place] [address] [address] Dec, Anxiety F41.9 [place] [id number] [place] [address] Dec, Encounter to establish care Z76.89 ; Type 2 diabetes mellitus with unspecified complications E11.8 ; senior living 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 ; Dorsalgia, unspecified M54.9 ; Other chronic pain G89.29 ; Insomnia, unspecified type G47.00 ; Neuropathy G62.9 and Bilateral tinnitus H93.13 [place] [id number] [place] [address] Dec, IMMUNIZATIONS No Known Immunizations SOCIAL HISTORY Never Assessed REASON FOR VISIT Orders from results PLAN OF CARE VITAL SIGNS MEDICATIONS Medication Instructions Dosage Frequency Start Date End Date Duration Status [place] 3 1000 MG Orally Once a day 3 capsules 24h Aug, 30 days Active RESULTS No Results PROCEDURES No Known procedures INSTRUCTIONS MEDICATIONS ADMINISTERED No Known Medications MEDICAL (GENERAL) HISTORY Type Description Date Medical History Type 2 diabetes mellitus without complications Medical History senior living (current) use of insulin Medical History Other [...]
--- OUTSIDE RECORDS SUMMARY | 2018-12-07 13:23 | XMS REPORT ---
Author Author SARAH GOLDMAN Organization [facility] Address [address] [place] [address] Care Team Providers Care [employer] Name Role Phone SARAH GOLDMAN Unavailable PROBLEMS Type Condition ICD9-CM Code ZHX91-JO Code Onset Dates Condition Status SNOMED Code Problem Type 2 diabetes mellitus with unspecified complications E11.8 Active 44186288 Problem Other chronic pain G89.29 Active 10263862 Problem Anxiety F41.9 Active 66368937 Problem Hypertriglyceridemia E78.1 Active 373847853 Problem [facility] 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 Active 833384350 Problem Primary insomnia F51.01 Active 9828483 Problem Periodontitis K05.30 Active 17772578 Problem Benign prostatic hyperplasia with lower urinary tract symptoms, unspecified morphology N40.1 Active 413672477 Problem Neuropathy G62.9 Active 647931364 Problem Hypoglycemia E16.2 Active 875408912 ALLERGIES No Known Allergies ENCOUNTERS Encounter Location Date Diagnosis [facility] [id number] [place] [address] Dec, [facility] [facility] [id number] [place] [address] Nov, Hypertriglyceridemia E78.1 and Benign prostatic hyperplasia with lower urinary tract symptoms, unspecified morphology N40.1 [facility] [id number] [place] [address] Nov, Therapeutic drug monitoring Z51.81 ; Hypertriglyceridemia E78.1 ; Type 2 diabetes mellitus with unspecified complications E11.8 ; Tobacco abuse Z72.0 ; Chronic prescription opiate use Z79.891 and Chronically on benzodiazepine therapy Z79.899 [facility] [id number] [place] [address] October, Neuropathy G62.9 [facility] [facility] [address] [address] October, Neuropathy G62.9 [facility] [id number] [place] [address] October, [facility] [address] [address] Sep, [facility] [id number] [place] [address] Sep, Anemia, unspecified type D64.9 [facility] [address] [id number] [address] Sep, Anemia, unspecified type D64.9 [facility] [address] [address] Aug, [facility] [id number] [place] [address] Aug, Cellulitis of left lower extremity L03.116 [facility] [address], [place] [address] Aug, Cellulitis of left knee L03.116 [facility] [address] [address] Aug, Cellulitis of left knee L03.116 [facility] [address], [place] [address] Aug, Hypertriglyceridemia E78.1 [facility] [address] [address] Aug, [facility] [id number] [place] [address] Jul, Hypertriglyceridemia E78.1 [facility] [address] [address] Jul, Benign prostatic hyperplasia with lower urinary tract symptoms, unspecified morphology N40.1 [facility] [id number] [place] [address] 02 Jul, 2017 [facility] [id number] [place] [address] Jun, [facility] [id number] [place] [address] Jun, Hypertriglyceridemia E78.1 [facility] [address] [address] 10 Jun, 2017 Type 2 diabetes mellitus with unspecified complications E11.8 ; Encounter for immunization Z23 ; Neuropathy G62.9 ; Other chronic pain G89.29 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 [facility] [id number] [place] [address] 05 Jun, 2017 [facility] [facility] [address] [address] May, [facility] [id number] [place] [address] Apr, Benign prostatic hyperplasia with lower urinary tract symptoms, unspecified morphology N40.1 [facility] [id number] [place] [address] Apr, [facility] [id number] [place] [address] 13 Mar, 2017 Other chronic pain G89.29 ; Anxiety F41.9 and Neuropathy G62.9 [facility] [id number] [place] [address] 09 Mar, 2017 Type 2 diabetes mellitus with unspecified complications E11.8 and Other chronic pain G89.29 [facility] [id number] [place] [address] 29 Feb, 2017 Neuropathy G62.9 [facility] [id number] [place] [address] 15 Feb, 2017 Other chronic pain G89.29 and Anxiety F41.9 [facility] [id number] [place] [address] Jan, [facility] [id number] [place] [address] Jan, Other chronic pain G89.29 and Anxiety F41.9 [facility] [id number] [place] [address] Dec, [facility] [address] [address] Dec, Other chronic pain G89.29 and Anxiety F41.9 [facility] [facility] [address] [address] Dec, [facility] [id number] [place] [address] Dec, Primary insomnia F51.01 and Neuropathy G62.9 [facility] [id number] [place] [address] Nov, Anxiety F41.9 and Other chronic pain G89.29 [facility] [id number] [place] [address] Nov, Type 2 diabetes mellitus with unspecified complications E11.8 ; Neuropathy G62.9 and Primary insomnia F51.01 [facility] [id number] [place] [address] October, Anxiety F41.9 and Other chronic pain G89.29 [facility] [facility] [id number] [place] [address] October, Other chronic pain G89.29 ; Type 2 diabetes mellitus with unspecified complications E11.8 and Hypoglycemia E16.2 [facility] [id number] [place] [address] Sep, Other chronic pain G89.29 and Anxiety F41.9 [facility] [id number] [place] [address] Sep, [facility] [facility] [id number] [place] [address] Aug, Other chronic pain G89.29 and Anxiety F41.9 [facility] [id number] [place] [address] Aug, Rash R21 and Pain of right hip joint M25.551 [facility] [facility] [address] [address] Aug, [facility] [address] [address] Aug, [facility] [address] [address] Aug, Other chronic pain G89.29 and Anxiety F41.9 [facility] [address] [address] Aug, Type 2 diabetes mellitus with unspecified complications E11.8 [facility] [address] [address] Jul, [facility] [address] [address] Jul, Bronchitis J40 and Non-intractable vomiting, presence of nausea not specified, unspecified vomiting type R11.10 [facility] [id number] [place] [address] Jul, [facility] [id number] [place] [address] Jul, Other chronic pain G89.29 and Anxiety F41.9 [facility] [id number] Jul, Type 2 diabetes mellitus with unspecified complications E11.8 [facility] [id number] [place] [address] Jun, Type 2 diabetes mellitus with unspecified complications E11.8 [facility] [id number] [place] [id number] Jun, Dental caries K02.9 [facility] [id number] [place] [address] Jun, [facility] [id number] [place] [id number] Jun, Dental examination Z01.20 [facility] [id number] [place] [address] Jun, Right corneal abrasion, initial encounter S05.01XA [facility] [address] [address] Jun, [facility] [id number] [place] [address] Jun, Dental examination Z01.20 [facility] [facility] [id number] [place] [address] Jun, [facility] [id number] [place] [address] Jun, Perforated ear drum, right H72.91 ; Tooth pain K08.89 ; Type 2 diabetes mellitus with unspecified complications E11.8 and Other chronic pain G89.29 [facility] [id number] [place] [address] Jun, [facility] [id number] [place] [address] Jun, Other chronic pain G89.29 and Anxiety F41.9 [facility] [id number] [place] [address] Jun, [facility] [id number] [place] [address] May, Type 2 diabetes mellitus with unspecified complications E11.8 ; Benign prostatic hyperplasia with lower urinary tract symptoms, unspecified morphology N40.1 and Other chronic pain G89.29 [facility] [id number] [place] [address] 09 May, 2016 Other chronic pain G89.29 and Anxiety F41.9 [facility] [id number] [place] [address] Apr, Other chronic pain G89.29 and Anxiety F41.9 [facility] [address] [address] Mar, [place] [address] [address] 17 Mar, 2016 Anxiety F41.9 and Other chronic pain G89.29 [place] [facility] [address] [address] Mar, Other chronic pain G89.29 and 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 Z79.891 [place] [facility] [address] [address] Mar, Other chronic pain G89.29 ; [facility] 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 Z79.891 and Anxiety F41.9 [place] [id number] [place] [address] 30 Feb, 2016 Bronchitis J40 [facility] [facility] [id number] [place] [address] 19 Feb, 2016 Other chronic pain G89.29 [facility] [id number] [place] [address] 15 Feb, 2016 Type 2 diabetes mellitus with unspecified complications E11.8 [facility] [facility] [id number] [place] [address] Jan, Anxiety F41.9 [facility] [id number] [place] [address] Jan, [facility] [address] [address] Jan, [place] [id number] [place] [address] Jan, Type 2 diabetes mellitus with unspecified complications E11.8 and Other chronic pain G89.29 [place] [id number] [place] [address] Jan, [facility] [facility] [id number] [place] [address] Jan, Dehydration E86.0 and Type 2 diabetes mellitus with unspecified complications E11.8 [facility] [id number] [place] [address] Jan, [facility] [facility] [id number] [place] [address] Dec, Anxiety F41.9 [facility] [id number] [place] [address] Dec, Encounter to establish care Z76.89 ; Type 2 diabetes mellitus with unspecified complications E11.8 ; 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 ; Dorsalgia, unspecified M54.9 ; Other chronic pain G89.29 ; Insomnia, unspecified type G47.00 ; Neuropathy G62.9 and Bilateral tinnitus H93.13 [place] [facility] [id number] [place] [address] Dec, IMMUNIZATIONS Vaccine Route Administration Date Status FLUARIX QUAD (3 AND UP) 2017 IM Intramuscular Jun 29, 2017 Administered SOCIAL HISTORY Never Assessed REASON FOR VISIT Pain management (chronic)/Diabetes----Jose A Diego UDS PLAN OF CARE Activity Details Follow Up 3 Months Reason:pain mgmt and DM VITAL SIGNS Height 53 in 2017-06-29 Weight 157 lbs 2017-06-29 Temperature 97.9 degrees Fahrenheit 2017-06-29 Heart Rate 120 bpm 2017-06-29 Respiratory Rate 20 2017-06-29 BMI 39.29 kg/m2 2017-06-29 Blood pressure systolic 110 mmHg 2017-06-29 Blood pressure diastolic 70 mmHg 2017-06-29 MEDICATIONS Medication Instructions Dosage Frequency Start Date End Date Duration Status Actos 45 MG Or[facility] Once a day 1 tablet 24h 09 Mar, 2017 Active Cialis 5 mg Orally Once a day 1 tablet 24h May, 90 days Active Lantus SoloStar 100 UNIT/ML Subcutaneous 2 times a day Inject 20 units 12h Aug, Active Hydrocodone-Acetaminophen 10-325 MG Orally 3 times a day 1 tablet 8h 07 Jun, 2017 28 days Active Lyrica 150 MG Orally 3 times a day 1 capsule 8h May, 90 days Active Levemir 100 UNIT/ML Subcutaneous 2 times a day Inject 35 units 12h Feb, 30 days Not-Taking Alprazolam 1 MG Orally Once a day 1 tablet at bedtime 24h 28 days Active MetFORMIN HCl ER 500 MG Orally twice a day 2 tablet 12h 16 Jun, 2016 30 day(s) Active Ibuprofen 800 MG Or[place] Three times a day 1 tablet 8h 30 Active Ambien 5 mg Orally Once a day 1 tablet at bedtime 24h 08 Nov, 2016 28 days Not-Taking RESULTS No Results PROCEDURES Procedure Date Ordered Result Body Site COMPREHEN METABOLIC PANEL Jun 29, 2017 LIPID PANEL Jun 29, 2017 FLUARIX QUAD (3 AND UP) 2017 Jun 29, 2017 No Charge Jun 29, 2017 SINGLE IMMUNIZATION ADMIN Jun 29, 2017 VENIPUNCT, ROUTINE* Jun 29, 2017 MICROALBUMIN, SEMIQUANT Jun 29, 2017 GLYCATED HEMOGLOBIN TEST Jun 29, 2017 INSTRUCTIONS MEDICATIONS ADMINISTERED No Known Medications MEDICAL (GENERAL) HISTORY Type Description Date Medical History Type 2 diabetes mellitus without complications Medical History 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
--- OUTSIDE RECORDS SUMMARY | 2018-12-07 13:24 | XMS REPORT ---
Author Author SARAH GOLDMAN Organization [facility] Address [address] [place] [address] Care Team Providers Care Thermoforming Operator Name Role Phone SARAH GOLDMAN Unavailable PROBLEMS Type Condition ICD9-CM Code SLJ13-QR Code Onset Dates Condition Status SNOMED Code Problem Type 2 diabetes mellitus with unspecified complications E11.8 Active 62270803 Problem Other chronic pain G89.29 Active 99121188 Problem Anxiety F41.9 Active 51096440 Problem Hypertriglyceridemia E78.1 Active 954680223 Problem half-way 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 Active 749578674 Problem Primary insomnia F51.01 Active 9136072 Problem Periodontitis K05.30 Active 06109583 Problem Benign prostatic hyperplasia with lower urinary tract symptoms, unspecified morphology N40.1 Active 485707629 Problem Neuropathy G62.9 Active 582765153 Problem Hypoglycemia E16.2 Active [id number] ALLERGIES No Information ENCOUNTERS Encounter Location Date Diagnosis [facility] [id number] [place] [address] Nov, [facility] [id number] [address] Sep, [facility] [id number] [address] Sep, Anemia, unspecified type D64.9 [facility] [address] [id number] [place] [address] Sep, Anemia, unspecified type D64.9 [facility] [id number] [place] [address] Aug, [facility] [id number] [place] [address] Aug, Cellulitis of left lower extremity L03.116 [facility] [id number] [address] 16 Aug, 2017 Cellulitis of left knee L03.116 [facility] [id number] [address] 15 Aug, 2017 Cellulitis of left knee L03.116 [facility] [id number] [address] 06 Aug, 2017 Hypertriglyceridemia E78.1 [facility] [id number] [address] 02 Aug, 2017 [facility] [id number] [place] [address] Jul, Hypertriglyceridemia E78.1 [place] [id number] [address] 08 Jul, 2017 Benign prostatic hyperplasia with lower urinary tract symptoms, unspecified morphology N40.1 [facility] [id number] [address] 02 Jul, 2017 [place] [id number] [place] [address] Jun, [place] [id number] [address] Jun, Hypertriglyceridemia E78.1 [place] [facility] [id number] [address] Jun, Type 2 diabetes mellitus with unspecified complications E11.8 ; Encounter for immunization Z23 ; Neuropathy G62.9 ; Other chronic pain G89.29 and 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 [facility] [id number] [place] [address] Jun, [facility] [id number] [address] May, [facility] [id number] [address] Apr, Benign prostatic hyperplasia with lower urinary tract symptoms, unspecified morphology N40.1 [facility] [address] [address] 10 Apr, 2017 [facility] [address] [address] 13 Mar, 2017 Other chronic pain G89.29 ; Anxiety F41.9 and Neuropathy G62.9 [facility] [address] [address] 09 Mar, 2017 Type 2 diabetes mellitus with unspecified complications E11.8 and Other chronic pain G89.29 [place] [address] [address] 29 Feb, 2017 Neuropathy G62.9 [place] [address] [address] 15 Feb, 2017 Other chronic pain G89.29 and Anxiety F41.9 [facility] [address] [address] Jan, [facility] [address] [address] Jan, Other chronic pain G89.29 and Anxiety F41.9 [facility] [facility] [id number] [address] Dec, [facility] [address] [address] Dec, Other chronic pain G89.29 and Anxiety F41.9 [facility] [address] [address] Dec, [facility] [address] [address] Dec, Primary insomnia F51.01 and Neuropathy G62.9 [facility] [address] [place] [address] Nov, Anxiety F41.9 and Other chronic pain G89.29 [place] [id number] [address] Nov, Type 2 diabetes mellitus with unspecified complications E11.8 ; Neuropathy G62.9 and Primary insomnia F51.01 [place] [facility] [id number] [address] October, Anxiety F41.9 and Other chronic pain G89.29 [place] [id number] [address] October, Other chronic pain G89.29 ; Type 2 diabetes mellitus with unspecified complications E11.8 and Hypoglycemia E16.2 [place] [facility] [id number] [address] Sep, Other chronic pain G89.29 and Anxiety F41.9 [place] [id number] [address] Sep, [place] [id number] [address] Aug, Other chronic pain G89.29 and Anxiety F41.9 [facility] [id number] [address] Aug, Rash R21 and Pain of right hip joint M25.551 [place] [id number] [place] [address] Aug, [facility] [id number] [address] Aug, [place] [id number] [address] Aug, Other chronic pain G89.29 and Anxiety F41.9 [facility] [id number] [address] Aug, Type 2 diabetes mellitus with unspecified complications E11.8 [facility] [id number] [address] Jul, [facility] [address] [address] Jul, Bronchitis J40 and Non-intractable vomiting, presence of nausea not specified, unspecified vomiting type R11.10 [facility] [address] [address] Jul, [place] [address] [address] Jul, Other chronic pain G89.29 and Anxiety F41.9 [place] [address] [address] Jul, Type 2 diabetes mellitus with unspecified complications E11.8 [place] [address] [address] Jun, Type 2 diabetes mellitus with unspecified complications E11.8 [facility] [address] [id number] Jun, Dental caries K02.9 [facility] [address] [address] Jun, [facility] [address] [id number] Jun, Dental examination Z01.20 [facility] [id number] [address] Jun, Right corneal abrasion, initial encounter S05.01XA [facility] [address] [address] Jun, [facility] [id number] [place] [address] Jun, Dental examination Z01.20 [facility] [address] [address] Jun, [facility] [id number] [place] [address] Jun, Perforated ear drum, right H72.91 ; Tooth pain K08.89 ; Type 2 diabetes mellitus with unspecified complications E11.8 and Other chronic pain G89.29 [place] [id number] [address] Jun, [place] [id number] [address] Jun, Other chronic pain G89.29 and Anxiety F41.9 [place] [id number] [address] Jun, [place] [id number] [address] May, Type 2 diabetes mellitus with unspecified complications E11.8 ; Benign prostatic hyperplasia with lower urinary tract symptoms, unspecified morphology N40.1 and Other chronic pain G89.29 [place] [id number] [address] May, Other chronic pain G89.29 and Anxiety F41.9 [place] [id number] [address] Apr, Other chronic pain G89.29 and Anxiety F41.9 [place] [id number] [address] Mar, [place] [id number] [place] [address] 17 Mar, 2016 Anxiety F41.9 and Other chronic pain G89.29 [place] [id number] [address] Mar, Other chronic pain G89.29 and half-way 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 Z79.891 [place] [id number] [address] Mar, Other chronic pain G89.29 ; 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 and Anxiety F41.9 [facility] [id number] [address] 30 Feb, 2016 Bronchitis J40 [facility] [id number] [place] [address] 19 Feb, 2016 Other chronic pain G89.29 [facility] [address] [address] 15 Feb, 2016 Type 2 diabetes mellitus with unspecified complications E11.8 [place] [address] [address] Jan, Anxiety F41.9 [facility] [id number] [address] Jan, [facility] [address] [address] Jan, [facility] [id number] [place] [address] Jan, Type 2 diabetes mellitus with unspecified complications E11.8 and Other chronic pain G89.29 [facility] [id number] [address] Jan, [facility] [id number] [address] Jan, Dehydration E86.0 and Type 2 diabetes mellitus with unspecified complications E11.8 [facility] [id number] [address] Jan, [facility] [id number] [place] [address] Dec, Anxiety F41.9 [facility] [id number] [address] Dec, Encounter to establish care Z76.89 ; Type 2 diabetes mellitus with unspecified complications E11.8 ; 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
--- OUTSIDE RECORDS SUMMARY | 2018-12-07 13:24 | XMS REPORT ---
Author Author SARAH GOLDMAN Organization [facility] Address [address] [place] [address] Care Team Providers Care Director Title Name Role Phone SARAH GOLDMAN Unavailable PROBLEMS Type Condition ICD9-CM Code [id number] Code Onset Dates Condition Status SNOMED Code Problem Type 2 diabetes mellitus with unspecified complications E11.8 Active 78332020 Problem Other chronic pain G89.29 Active 21124729 Problem Anxiety F41.9 Active 42947578 Problem Hypertriglyceridemia E78.1 Active 302436950 Problem shelter 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 Active 234705234 Problem Primary insomnia F51.01 Active 8437203 Problem Periodontitis K05.30 Active 38225770 Problem Benign prostatic hyperplasia with lower urinary tract symptoms, unspecified morphology N40.1 Active 803699547 Problem Neuropathy G62.9 Active 516166358 Problem Hypoglycemia E16.2 Active 035622709 ALLERGIES No Information ENCOUNTERS Encounter Location Date Diagnosis [facility] [id number] [place] [phone] Dec, [facility] [facility] [id number] [place] [address] Nov, Hypertriglyceridemia E78.1 and Benign prostatic hyperplasia with lower urinary tract symptoms, unspecified morphology N40.1 [facility] [id number] [place] [address] Nov, Therapeutic drug monitoring Z51.81 ; Hypertriglyceridemia E78.1 ; Type 2 diabetes mellitus with unspecified complications E11.8 ; Tobacco abuse Z72.0 ; Chronic prescription opiate use Z79.891 and Chronically on benzodiazepine therapy Z79.899 [place] [id number] [place] [address] October, Neuropathy G62.9 [facility] [facility] [address] [address] October, Neuropathy G62.9 [facility] [id number] [place] [address] October, [facility] [address] [address] Sep, [facility] [id number] [place] [address] Sep, Anemia, unspecified type D64.9 [facility] [address] [id number] [address] Sep, Anemia, unspecified type D64.9 [facility] [address] [address] Aug, [facility] [id number] [place] [address] Aug, Cellulitis of left lower extremity L03.116 [facility] [id number] [place] [address] Aug, Cellulitis of left knee L03.116 [facility] [address] [address] Aug, Cellulitis of left knee L03.116 [facility] [id number] [place] [address] Aug, Hypertriglyceridemia E78.1 [facility] [address] [address] Aug, [facility] [id number] [place] [address] Jul, Hypertriglyceridemia E78.1 [facility] [address] [address] Jul, Benign prostatic hyperplasia with lower urinary tract symptoms, unspecified morphology N40.1 [facility] [facility] [id number] [place] [address] 02 Jul, 2017 [place] [id number] [place] [address] Jun, [facility] [id number] [place] [address] Jun, Hypertriglyceridemia E78.1 [facility] [facility] [address] [address] 10 Jun, 2017 Type 2 diabetes mellitus with unspecified complications E11.8 ; Encounter for immunization Z23 ; Neuropathy G62.9 ; Other chronic pain G89.29 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 [facility] [id number] [place] [address] Jun, [facility] [address] [address] May, [facility] [id number] [place] [address] Apr, Benign prostatic hyperplasia with lower urinary tract symptoms, unspecified morphology N40.1 [facility] [id number] [place] [address] Apr, [facility] [id number] [place] [address] Mar, Other chronic pain G89.29 ; Anxiety F41.9 and Neuropathy G62.9 [facility] [id number] [place] [address] 09 Mar, 2017 Type 2 diabetes mellitus with unspecified complications E11.8 and Other chronic pain G89.29 [facility] [id number] [place] [address] 29 Feb, 2017 Neuropathy G62.9 [facility] [id number] [place] [address] 15 Feb, 2017 Other chronic pain G89.29 and Anxiety F41.9 [place] [id number] [place] [address] Jan, [facility] [id number] [place] [address] Jan, Other chronic pain G89.29 and Anxiety F41.9 [facility] [id number] [place] [address] Dec, [facility] [id number] [place] [address] Dec, Other chronic pain G89.29 and Anxiety F41.9 [facility] [address] [address] Dec, [facility] [id number] [place] [address] Dec, Primary insomnia F51.01 and Neuropathy G62.9 [facility] [id number] [place] [address] Nov, Anxiety F41.9 and Other chronic pain G89.29 [facility] [id number] [place] [address] Nov, Type 2 diabetes mellitus with unspecified complications E11.8 ; Neuropathy G62.9 and Primary insomnia F51.01 [facility] [id number] [place] [address] October, Anxiety F41.9 and Other chronic pain G89.29 [place] [id number] [place] [address] October, Other chronic pain G89.29 ; Type 2 diabetes mellitus with unspecified complications E11.8 and Hypoglycemia E16.2 [facility] [id number] [place] [address] Sep, Other chronic pain G89.29 and Anxiety F41.9 [facility] [id number] [place] [address] Sep, [facility] [id number] [place] [address] Aug, Other chronic pain G89.29 and Anxiety F41.9 [place] [id number] [place] [address] Aug, Rash R21 and Pain of right hip joint M25.551 [place] [facility] [id number] [place] [address] Aug, [facility] [place] [id number] [place] [address] Aug, [facility] [place] [id number] [place] [address] Aug, Other chronic pain G89.29 and Anxiety F41.9 [facility] [id number] [place] [address] Aug, Type 2 diabetes mellitus with unspecified complications E11.8 [facility] [id number] [place] [address] Jul, [facility] [id number] [place] [address] Jul, Bronchitis J40 and Non-intractable vomiting, presence of nausea not specified, unspecified vomiting type R11.10 [place] [id number] [place] [address] Jul, [facility] [id number] [place] [address] Jul, Other chronic pain G89.29 and Anxiety F41.9 [place] [id number] [place], [place] [phone] Jul, Type 2 diabetes mellitus with unspecified complications E11.8 [facility] [facility] [id number] [place] [address] Jun, Type 2 diabetes mellitus with unspecified complications E11.8 [facility] [id number] [place] [id number] Jun, Dental caries K02.9 [facility] [id number] [place] [address] Jun, [facility] [id number] [place] [phone] Jun, Dental examination Z01.20 [facility] [id number] [place] [address] Jun, Right corneal abrasion, initial encounter S05.01XA [facility] [address] [address] Jun, [facility] [id number] [place] [address] Jun, Dental examination Z01.20 [place] [id number] [place] [address] Jun, [facility] [id number] [place] [address] Jun, Perforated ear drum, right H72.91 ; Tooth pain K08.89 ; Type 2 diabetes mellitus with unspecified complications E11.8 and Other chronic pain G89.29 [facility] [id number] [place] [address] Jun, [facility] [id number] [place] [address] Jun, Other chronic pain G89.29 and Anxiety F41.9 [facility] [id number] [place] [address] Jun, [facility] [id number] [place] [address] May, Type 2 diabetes mellitus with unspecified complications E11.8 ; Benign prostatic hyperplasia with lower urinary tract symptoms, unspecified morphology N40.1 and Other chronic pain G89.29 [facility] [id number] [place] [address] 09 May, 2016 Other chronic pain G89.29 and Anxiety F41.9 [facility] [id number] [place] [address] Apr, Other chronic pain G89.29 and Anxiety F41.9 [facility] [address] [address] Mar, [facility] [address] [address] 17 Mar, 2016 Anxiety F41.9 and Other chronic pain G89.29 [facility] [id number] [place] [address] Mar, Other chronic pain G89.29 and 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 [facility] [address] [address] Mar, Other chronic pain G89.29 ; shelter 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 Z79.891 and Anxiety F41.9 [facility] [address] [address] 30 Feb, 2016 Bronchitis J40 [facility] [id number] [place] [address] 19 Feb, 2016 Other chronic pain G89.29 [facility] [id number] [place] [address] 15 Feb, 2016 Type 2 diabetes mellitus with unspecified complications E11.8 [facility] [id number] [place] [address] Jan, Anxiety F41.9 [facility] [id number] [place] [address] Jan, [facility] [id number] [place] [address] Jan, [place] [address] [address] Jan, Type 2 diabetes mellitus with unspecified complications E11.8 and Other chronic pain G89.29 [place] [address] [address] Jan, [place] [id number] [place] [address] Jan, Dehydration E86.0 and Type 2 diabetes mellitus with unspecified complications E11.8 [place] [id number] [place] [address] Jan, [place] [id number] [place] [address] Dec, Anxiety F41.9 [place] [id number] [place] [address] Dec, Encounter to establish care Z76.89 ; Type 2 diabetes mellitus with unspecified complications E11.8 ; 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 ; Dorsalgia, unspecified M54.9 ; Other chronic pain G89.29 ; Insomnia, unspecified type G47.00 ; Neuropathy G62.9 and Bilateral tinnitus H93.13 [place] [address] [address] Dec, IMMUNIZATIONS No Known Immunizations SOCIAL HISTORY Never Assessed REASON FOR VISIT med/lab order PLAN OF CARE VITAL SIGNS MEDICATIONS Medication Instructions Dosage Frequency Start Date End Date Duration Status Atorvastatin Calcium 40 mg Orally Once a day 1 tablet 24h Jun, 30 day(s) Active RESULTS No Results PROCEDURES No Known procedures INSTRUCTIONS MEDICATIONS ADMINISTERED No Known Medications MEDICAL (GENERAL) HISTORY Type Description Date Medical History Type 2 diabetes mellitus without complications Medical History 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
--- OUTSIDE RECORDS SUMMARY | 2018-12-07 13:24 | XMS REPORT ---
Author Author SARAH GOLDMAN Organization [facility] Address [address] [place] [address] Care Team Providers Care Channeler Runner Name Role Phone SARAH GOLDMAN Unavailable PROBLEMS Type Condition ICD9-CM Code JCH15-PU Code Onset Dates Condition Status SNOMED Code Problem Type 2 diabetes mellitus with unspecified complications E11.8 Active 19025341 Problem Other chronic pain G89.29 Active 19186504 Problem Anxiety F41.9 Active 93429885 Problem Hypertriglyceridemia E78.1 Active 113954865 Problem correction 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 Active 258989799 Problem Primary insomnia F51.01 Active 2720243 Problem Periodontitis K05.30 Active 86584690 Problem Benign prostatic hyperplasia with lower urinary tract symptoms, unspecified morphology N40.1 Active 994527199 Problem Neuropathy G62.9 Active 210286532 Problem Hypoglycemia E16.2 Active 701766884 ALLERGIES No Information ENCOUNTERS Encounter Location Date Diagnosis [place] [id number] [place] [address] Dec, [facility] [id number] [place] [address] Nov, Therapeutic drug monitoring Z51.81 ; Hypertriglyceridemia E78.1 ; Type 2 diabetes mellitus with unspecified complications E11.8 ; Tobacco abuse Z72.0 ; Chronic prescription opiate use Z79.891 and Chronically on benzodiazepine therapy Z79.899 [facility] [id number] [place] [address] October, Neuropathy G62.9 [facility] [id number] [place] [address] October, Neuropathy G62.9 [facility] [id number] [place] [address] October, [facility] [address] [address] Sep, [facility] [address] [address] Sep, Anemia, unspecified type D64.9 [facility] [address] [id number] [address] Sep, Anemia, unspecified type D64.9 [facility] [address], [place] [address] Aug, [facility] [address] [place] [address] Aug, Cellulitis of left lower extremity L03.[address] [facility] [address] [place] [address] Aug, Cellulitis of left knee L03.[address] [facility] [address], [place] [address] Aug, Cellulitis of left knee L03.116 [facility] [address], [place] [address] Aug, Hypertriglyceridemia E78.1 [facility] [address], [place] [address] Aug, [facility] [address] [place] [address] Jul, Hypertriglyceridemia E78.1 [facility] [address], [place] [address] Jul, Benign prostatic hyperplasia with lower urinary tract symptoms, unspecified morphology N40.1 [facility] [id number] [address] Jul, [facility] [address] [place] [address] Jun, [facility] [id number] [place] [address] Jun, Hypertriglyceridemia E78.1 [place] [address] [address] 10 Jun, 2017 Type 2 diabetes mellitus with unspecified complications E11.8 ; Encounter for immunization Z23 ; Neuropathy G62.9 ; Other chronic pain G89.29 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 [place] [address] [address] Jun, [place] [address] [address] May, [place] [address] [address] Apr, Benign prostatic hyperplasia with lower urinary tract symptoms, unspecified morphology N40.1 [place] [address] [address] Apr, [place] [address] [address] 13 Mar, 2017 Other chronic pain G89.29 ; Anxiety F41.9 and Neuropathy G62.9 [place] [address] [address] 09 Mar, 2017 Type 2 diabetes mellitus with unspecified complications E11.8 and Other chronic pain G89.29 [place] [id number] [place] [address] Feb, Neuropathy G62.9 [place] [address] [address] 15 Feb, 2017 Other chronic pain G89.29 and Anxiety F41.9 [place] [address] [address] Jan, [place] [address] [address] Jan, Other chronic pain G89.29 and Anxiety F41.9 [place] [id number] [place] [address] Dec, [place] [id number] [place] [address] Dec, Other chronic pain G89.29 and Anxiety F41.9 [place] [id number] [place] [address] Dec, [place] [id number] [place] [address] Dec, Primary insomnia F51.01 and Neuropathy G62.9 [place] [id number] [place] [address] Nov, Anxiety F41.9 and Other chronic pain G89.29 [place] [id number] [place] [address] Nov, Type 2 diabetes mellitus with unspecified complications E11.8 ; Neuropathy G62.9 and Primary insomnia F51.01 [place] [id number] [place] [address] October, Anxiety F41.9 and Other chronic pain G89.29 [place] [id number] [place] [address] October, Other chronic pain G89.29 ; Type 2 diabetes mellitus with unspecified complications E11.8 and Hypoglycemia E16.2 [place] [id number] [place] [address] Sep, Other chronic pain G89.29 and Anxiety F41.9 [place] [id number] [place] [address] Sep, [place] [id number] [place] [address] Aug, Other chronic pain G89.29 and Anxiety F41.9 [facility] [id number] [place] [address] Aug, Rash R21 and Pain of right hip joint M25.551 [facility] [id number] [place] [address] Aug, [facility] [address] [address] Aug, [facility] [address] [address] Aug, Other chronic pain G89.29 and Anxiety F41.9 [place] [address] [address] Aug, Type 2 diabetes mellitus with unspecified complications E11.8 [place] [address] [address] Jul, [place] [address] [address] Jul, Bronchitis J40 and Non-intractable vomiting, presence of nausea not specified, unspecified vomiting type R11.10 [facility] [id number] [place] [address] Jul, [place] [id number] [place] [address] Jul, Other chronic pain G89.29 and Anxiety F41.9 [facility] [id number] [place] [address] Jul, Type 2 diabetes mellitus with unspecified complications E11.8 [facility] [id number] [place] [address] Jun, Type 2 diabetes mellitus with unspecified complications E11.8 [facility] [id number] [place] [id number] Jun, Dental caries K02.9 [facility] [address] [place] [address] Jun, [facility] [address] [id number] Jun, Dental examination Z01.20 [facility] [address], [place] [address] Jun, Right corneal abrasion, initial encounter S05.01XA [facility] [id number] [place] [address] Jun, [facility] [id number] [place] [address] Jun, Dental examination Z01.20 [facility] [id number] [place] [address] Jun, [facility] [id number] [place] [address] Jun, Perforated ear drum, right H72.91 ; Tooth pain K08.89 ; Type 2 diabetes mellitus with unspecified complications E11.8 and Other chronic pain G89.29 [facility] [id number] [place] [address] Jun, [facility] [id number] [place] [address] Jun, Other chronic pain G89.29 and Anxiety F41.9 [facility] [id number] [place] [address] Jun, [facility] [address] [place] [address] May, Type 2 diabetes mellitus with unspecified complications E11.8 ; Benign prostatic hyperplasia with lower urinary tract symptoms, unspecified morphology N40.1 and Other chronic pain G89.29 [facility] [address] [place] [address] May, Other chronic pain G89.29 and Anxiety F41.9 [facility] [id number] [place] [address] 14 Apr, 2016 Other chronic pain G89.29 and Anxiety F41.9 [facility] [id number] [place] [address] 28 Mar, 2016 [facility] [id number] [place] [address] 17 Mar, 2016 Anxiety F41.9 and Other chronic pain G89.29 [facility] [id number] [place] [address] 14 Mar, 2016 Other chronic pain G89.29 and correction 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 Z79.891 [place] [id number] [place] [address] Mar, Other chronic pain G89.29 ; correction 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 Z79.891 and Anxiety F41.9 [place] [id number] [place] [address] 30 Feb, 2016 Bronchitis J40 [facility] [id number] [place] [address] 19 Feb, 2016 Other chronic pain G89.29 [facility] [id number] [place] [address] 15 Feb, 2016 Type 2 diabetes mellitus with unspecified complications E11.8 [place] [id number] [place] [address] Jan, Anxiety F41.9 [facility] [id number] [place] [address] Jan, [facility] [id number] [place] [address] Jan, [facility] [id number] [place] [address] Jan, Type 2 diabetes mellitus with unspecified complications E11.8 and Other chronic pain G89.29 [place] [address], [place] [address] Jan, [place] [address] [place] [address] Jan, Dehydration E86.0 and Type 2 diabetes mellitus with unspecified complications E11.8 [place] [id number] [place] [address] Jan, [place] [id number] [place] [address] Dec, Anxiety F41.9 [place] [id number] [place] [address] Dec, Encounter to establish care Z76.89 ; Type 2 diabetes mellitus with unspecified complications E11.8 ; correction 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 ; Dorsalgia, unspecified M54.9 ; Other chronic pain G89.29 ; Insomnia, unspecified type G47.00 ; Neuropathy G62.9 and Bilateral tinnitus H93.13 [place] [address] [place] [address] Dec, IMMUNIZATIONS No Known Immunizations SOCIAL HISTORY Never Assessed REASON FOR VISIT Controlled Med Refill 06/27/17 PLAN OF CARE VITAL SIGNS MEDICATIONS Medication Instructions Dosage Frequency Start Date End Date Duration Status Hydrocodone-Acetaminophen 10-325 MG Orally 3 times a day 1 tablet 8h Jun, 28 days Active Alprazolam 1 MG Orally Once a day 1 tablet at bedtime 24h 28 days Active RESULTS No Results PROCEDURES No Known procedures INSTRUCTIONS MEDICATIONS ADMINISTERED No Known Medications MEDICAL (GENERAL) HISTORY Type Description Date Medical History Type 2 diabetes mellitus without complications Medical History correction (current) use of insulin Medical History Other [...]
--- OUTSIDE RECORDS SUMMARY | 2018-12-07 13:25 | XMS REPORT ---
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 Name Role Phone SARAH GOLDMAN Unavailable PROBLEMS Type Condition ICD9-CM Code XED22-GS Code Onset Dates Condition Status SNOMED Code Problem Type 2 diabetes mellitus with unspecified complications E11.8 Active 18253414 Problem Other chronic pain G89.29 Active 99979311 Problem Anxiety F41.9 Active 46554060 Problem Hypertriglyceridemia E78.1 Active 348063209 Problem prison 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 Active 683655617 Problem Primary insomnia F51.01 Active 8683849 Problem Periodontitis K05.30 Active 04094438 Problem Benign prostatic hyperplasia with lower urinary tract symptoms, unspecified morphology N40.1 Active 802248692 Problem Neuropathy G62.9 Active 338283216 Problem Hypoglycemia E16.2 Active 900220731 ALLERGIES No Information ENCOUNTERS Encounter Location Date Diagnosis [facility] [address] [address] Aug, [facility] [address] [address] Aug, Cellulitis of left lower extremity L03.116 [facility] [id number] [place] [address] 16 Aug, 2017 Cellulitis of left knee L03.116 [facility] [id number] [place] [address] 15 Aug, 2017 Cellulitis of left knee L03.116 [facility] [id number] [place] [address] 06 Aug, 2017 Hypertriglyceridemia E78.1 [facility] [address] [address] Aug, [facility] [id number] [place] [address] Jul, Hypertriglyceridemia E78.1 [facility] [id number] [place] [address] Jul, Benign prostatic hyperplasia with lower urinary tract symptoms, unspecified morphology N40.1 [facility] [address] [address] Jul, [facility] [id number] [place] [address] Jun, [place] [address] [address] Jun, Hypertriglyceridemia E78.1 [place] [id number] [place] [address] Jun, Type 2 diabetes mellitus with unspecified complications E11.8 ; Encounter for immunization Z23 ; Neuropathy G62.9 ; Other chronic pain G89.29 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 [place] [id number] [place] [address] Jun, [place] [id number] [place] [address] May, [facility] [id number] [place] [address] Apr, Benign prostatic hyperplasia with lower urinary tract symptoms, unspecified morphology N40.1 [facility] [id number] [place] [address] Apr, [place] [address] [address] 13 Mar, 2017 Other chronic pain G89.29 ; Anxiety F41.9 and Neuropathy G62.9 [facility] [id number] [place] [address] Mar, Type 2 diabetes mellitus with unspecified complications E11.8 and Other chronic pain G89.29 [facility] [id number] [place] [address] 29 Feb, 2017 Neuropathy G62.9 [facility] [id number] [place] [address] 15 Feb, 2017 Other chronic pain G89.29 and Anxiety F41.9 [facility] [id number] [place] [address] Jan, [facility] [id number] [place] [address] Jan, Other chronic pain G89.29 and Anxiety F41.9 [facility] [id number] [place] [address] Dec, [facility] [address] [address] Dec, Other chronic pain G89.29 and Anxiety F41.9 [facility] [id number] [place] [address] Dec, [facility] [id number] [place] [address] Dec, Primary insomnia F51.01 and Neuropathy G62.9 [facility] [id number] [place] [address] Nov, Anxiety F41.9 and Other chronic pain G89.29 [facility] [id number] [place] [address] Nov, Type 2 diabetes mellitus with unspecified complications E11.8 ; Neuropathy G62.9 and Primary insomnia F51.01 [facility] [id number] [place] [address] October, Anxiety F41.9 and Other chronic pain G89.29 [facility] [id number] [place] [address] October, Other chronic pain G89.29 ; Type 2 diabetes mellitus with unspecified complications E11.8 and Hypoglycemia E16.2 [place] [id number] [place] [address] Sep, Other chronic pain G89.29 and Anxiety F41.9 [place] [id number] [place] [address] Sep, [place] [address] [address] Aug, Other chronic pain G89.29 and Anxiety F41.9 [place] [address] [address] Aug, Rash R21 and Pain of right hip joint M25.551 [place] [id number] [place] [address] Aug, [place] [id number] [place] [address] Aug, [place] [id number] [place] [address] Aug, Other chronic pain G89.29 and Anxiety F41.9 [place] [id number] [place] [address] Aug, Type 2 diabetes mellitus with unspecified complications E11.8 [place] [id number] [place] [address] Jul, [place] [id number] [place] [address] Jul, Bronchitis J40 and Non-intractable vomiting, presence of nausea not specified, unspecified vomiting type R11.10 [place] [id number] [place] [address] Jul, [place] [id number] [place] [address] Jul, Other chronic pain G89.29 and Anxiety F41.9 [facility] [id number] [place] [address] Jul, Type 2 diabetes mellitus with unspecified complications E11.8 [facility] [id number] [place] [address] Jun, Type 2 diabetes mellitus with unspecified complications E11.8 [facility] [address] [id number] Jun, Dental caries K02.9 [place] [address] [address] Jun, [facility] [address] [id number] Jun, Dental examination Z01.20 [facility] [address] [address] Jun, Right corneal abrasion, initial encounter S05.01XA [place] [address] [address] Jun, [place] [address] [address] Jun, Dental examination Z01.20 [place] [id number] [place] [address] Jun, [facility] [address] [address] Jun, Perforated ear drum, right H72.91 ; Tooth pain K08.89 ; Type 2 diabetes mellitus with unspecified complications E11.8 and Other chronic pain G89.29 [facility] [id number] [place] [address] Jun, [place] [id number] [place] [address] Jun, Other chronic pain G89.29 and Anxiety F41.9 [place] [id number] [place] [address] Jun, [place] [id number] [place] [address] May, Type 2 diabetes mellitus with unspecified complications E11.8 ; Benign prostatic hyperplasia with lower urinary tract symptoms, unspecified morphology N40.1 and Other chronic pain G89.29 [place] [id number] [place] [address] 09 May, 2016 Other chronic pain G89.29 and Anxiety F41.9 [place] [address] [address] Apr, Other chronic pain G89.29 and Anxiety F41.9 [place] [id number] [place] [address] Mar, [place] [id number] [place] [address] Mar, Anxiety F41.9 and Other chronic pain G89.29 [place] [id number] [place] [address] 14 Mar, 2016 Other chronic pain G89.29 and prison 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 Z79.891 [place] [id number] [place] [address] Mar, Other chronic pain G89.29 ; prison 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 Z79.891 and Anxiety F41.9 [place] [address] [place] [address] 30 Feb, 2016 Bronchitis J40 [place] [id number] [place] [address] 19 Feb, 2016 Other chronic pain G89.29 [place] [id number] [place] [address] 15 Feb, 2016 Type 2 diabetes mellitus with unspecified complications E11.8 [place] [address] [place] [address] Jan, Anxiety F41.9 [place] [id number] [place] [address] Jan, [place] [id number] [place] [address] Jan, [place] [id number] [place] [address] Jan, Type 2 diabetes mellitus with unspecified complications E11.8 and Other chronic pain G89.29 [place] [id number] [place] [address] Jan, [place] [id number] [place] [address] Jan, Dehydration E86.0 and Type 2 diabetes mellitus with unspecified complications E11.8 [place] [id number] [place] [address] Jan, [place] [id number] [place] [address] Dec, Anxiety F41.9 [place] [id number] [place] [address] Dec, Encounter to establish care Z76.89 ; Type 2 diabetes mellitus with unspecified complications E11.8 ; prison 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 ; Dorsalgia, unspecified M54.9 ; Other chronic pain G89.29 ; Insomnia, unspecified type G47.00 ; Neuropathy G62.9 and Bilateral tinnitus H93.13 [place] [id number] [place] [address] Dec, IMMUNIZATIONS No Known Immunizations SOCIAL HISTORY Never Assessed REASON FOR VISIT PALS IN-[place] PLAN OF CARE VITAL SIGNS MEDICATIONS Unknown [...]
--- OUTSIDE RECORDS SUMMARY | 2018-12-07 13:25 | XMS REPORT ---
Author Author SARAH GOLDMAN Organization [facility] Address [address] [place] [address] Care Team Providers Care Manager Economic Name Role Phone SARAH GOLDMAN Unavailable PROBLEMS Type Condition ICD9-CM Code MTX83-XD Code Onset Dates Condition Status SNOMED Code Problem Type 2 diabetes mellitus with unspecified complications E11.8 Active 85667294 Problem Other chronic pain G89.29 Active 19042087 Problem Anxiety F41.9 Active 78225440 Problem Hypertriglyceridemia E78.1 Active 510930737 Problem [facility] 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 Active 189244504 Problem Primary insomnia F51.01 Active 9538236 Problem Periodontitis K05.30 Active 29008212 Problem Benign prostatic hyperplasia with lower urinary tract symptoms, unspecified morphology N40.1 Active 822404910 Problem Neuropathy G62.9 Active 722666410 Problem Hypoglycemia E16.2 Active 852881182 ALLERGIES No Information ENCOUNTERS Encounter Location Date Diagnosis [facility] [id number] [place] [address] Nov, [facility] [id number] [place] [address] Sep, Anemia, unspecified type D64.9 [facility] [address] [place] [address] Aug, [facility] [id number] [place] [address] Aug, Cellulitis of left lower extremity L03.116 [facility] [address] [place] [address] 16 Aug, 2017 Cellulitis of left knee L03.116 [facility] [id number] [place] [address] Aug, Cellulitis of left knee L03.116 [facility] [id number] [place] [address] Aug, Hypertriglyceridemia E78.1 [facility] [id number] [place] [address] Aug, [facility] [id number] [place] [address] Jul, Hypertriglyceridemia E78.1 [place] [id number] [place] [address] Jul, Benign prostatic hyperplasia with lower urinary tract symptoms, unspecified morphology N40.1 [place] [id number] [place] [address] Jul, [place] [id number] [place] [address] Jun, [place] [id number] [place] [address] Jun, Hypertriglyceridemia E78.1 [place] [id number] [place] [address] Jun, Type 2 diabetes mellitus with unspecified complications E11.8 ; Encounter for immunization Z23 ; Neuropathy G62.9 ; Other chronic pain G89.29 and [facility]DC 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 [place] [id number] [place] [address] Jun, [place] [id number] [place] [address] May, [place] [id number] [place] [address] Apr, Benign prostatic hyperplasia with lower urinary tract symptoms, unspecified morphology N40.1 [place] [id number] [place] [address] Apr, [place] [id number] [place] [address] Mar, Other chronic pain G89.29 ; Anxiety F41.9 and Neuropathy G62.9 [facility] [id number] [place] [address] 09 Mar, 2017 Type 2 diabetes mellitus with unspecified complications E11.8 and Other chronic pain G89.29 [facility] [id number] [place] [address] 29 Feb, 2017 Neuropathy G62.9 [place] [id number] [place] [address] 15 Feb, 2017 Other chronic pain G89.29 and Anxiety F41.9 [place] [id number] [place] [address] Jan, [place] [id number] [place] [address] Jan, Other chronic pain G89.29 and Anxiety F41.9 [place] [id number] [place] [address] Dec, [place] [id number] [place] [address] Dec, Other chronic pain G89.29 and Anxiety F41.9 [place] [id number] [place] [address] Dec, [place] [id number] [place] [address] Dec, Primary insomnia F51.01 and Neuropathy G62.9 [facility] [id number] [place] [address] Nov, Anxiety F41.9 and Other chronic pain G89.29 [facility] [id number] [place] [address] Nov, Type 2 diabetes mellitus with unspecified complications E11.8 ; Neuropathy G62.9 and Primary insomnia F51.01 [place] [id number] [place] [address] October, Anxiety F41.9 and Other chronic pain G89.29 [place] [id number] [place] [address] October, Other chronic pain G89.29 ; Type 2 diabetes mellitus with unspecified complications E11.8 and Hypoglycemia E16.2 [place] [address] [address] Sep, Other chronic pain G89.29 and Anxiety F41.9 [place] [address] [address] Sep, [place] [address] [address] Aug, Other chronic pain G89.29 and Anxiety F41.9 [place] [address] [address] Aug, Rash R21 and Pain of right hip joint M25.551 [place] [id number] [place] [address] Aug, [place] [id number] [place] [address] Aug, [place] [id number] [place] [address] Aug, Other chronic pain G89.29 and Anxiety F41.9 [place] [id number] [place] [address] Aug, Type 2 diabetes mellitus with unspecified complications E11.8 [place] [id number] [place] [address] Jul, [place] [id number] [place] [address] Jul, Bronchitis J40 and Non-intractable vomiting, presence of nausea not specified, unspecified vomiting type R11.10 [facility] [address] [id number] Jul, [place] [address] [place] [address] Jul, Other chronic pain G89.29 and Anxiety F41.9 [place] [address] [place] [address] [address] Jul, Type 2 diabetes mellitus with unspecified complications E11.8 [place] [address] Jun, Type 2 diabetes mellitus with unspecified complications E11.8 [facility] [address] [id number] Jun, Dental caries K02.9 [place] [address] [address] Jun, [facility] [address] [id number] Jun, Dental examination Z01.20 [facility] [address] [address] Jun, Right corneal abrasion, initial encounter S05.01XA [address] [address] Jun, [facility] [address] [address] Jun, Dental examination Z01.20 [facility] [address] [address] Jun, [place] [address] [address] Jun, Perforated ear drum, right H72.91 ; Tooth pain K08.89 ; Type 2 diabetes mellitus with unspecified complications E11.8 and Other chronic pain G89.29 [place] [id number] [place] [address] Jun, [place] [address] [address] Jun, Other chronic pain G89.29 and Anxiety F41.9 [place] [address] [address] Jun, [place] [address] [address] May, Type 2 diabetes mellitus with unspecified complications E11.8 ; Benign prostatic hyperplasia with lower urinary tract symptoms, unspecified morphology N40.1 and Other chronic pain G89.29 [place] [address] [address] May, Other chronic pain G89.29 and Anxiety F41.9 [place] [address] [address] Apr, Other chronic pain G89.29 and Anxiety F41.9 [place] [address] [address] Mar, [place] [id number] [place] [address] Mar, Anxiety F41.9 and Other chronic pain G89.29 [place] [address] [address] Mar, Other chronic pain G89.29 and [facility] 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 Z79.891 [place] [address] [address] Mar, Other chronic pain G89.29 ; [facility] 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 Z79.891 and Anxiety F41.9 [place] [id number] [place] [address] 30 Feb, 2016 Bronchitis J40 [place] [address] [place] [address] Feb, Other chronic pain G89.29 [place] [id number] [place] [address] Feb, Type 2 diabetes mellitus with unspecified complications E11.8 [place] [id number] [place] [address] Jan, Anxiety F41.9 [place] [id number] [place] [address] Jan, [place] [id number] [place] [address] Jan, [place] [id number] [place] [address] Jan, Type 2 diabetes mellitus with unspecified complications E11.8 and Other chronic pain G89.29 [place] [id number] [place] [address] Jan, [place] [id number] [place] [address] Jan, Dehydration E86.0 and Type 2 diabetes mellitus with unspecified complications E11.8 [place] [id number] [place] [address] Jan, [place] [id number] [place] [address] Dec, Anxiety F41.9 [place] [id number] [place] [address] Dec, Encounter to establish care Z76.89 ; Type 2 diabetes mellitus with unspecified complications E11.8 ; [facility] 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 ; Dorsalgia, unspecified M54.9 ; Other chronic pain G89.29 ; Insomnia, unspecified type G47.00 ; Neuropathy G62.9 and Bilateral tinnitus H93.13 [place] [id number] [place] [address], [place] [address] Dec, IMMUNIZATIONS No Known Immunizations SOCIAL HISTORY Never Assessed REASON FOR VISIT 6 mo PLAN OF CARE VITAL SIGNS MEDICATIONS Unknown Medications RESULTS No Results PROCEDURES No Known procedures INSTRUCTIONS MEDICATIONS ADMINISTERED No Known Medications MEDICAL (GENERAL) HISTORY Type Description Date Medical History Type 2 diabetes mellitus without complications 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
--- OUTSIDE RECORDS SUMMARY | 2018-12-07 13:25 | XMS REPORT ---
Author Author SARAH GOLDMAN Organization [facility] Address [address] [place] [address] Care Team Providers Care Marketing Finance Manager Name Role Phone SARAH GOLDMAN Unavailable PROBLEMS Type Condition ICD9-CM Code MCQ74-IA Code Onset Dates Condition Status SNOMED Code Problem Type 2 diabetes mellitus with unspecified complications E11.8 Active 10256114 Problem Other chronic pain G89.29 Active 77688790 Problem Anxiety F41.9 Active 59774348 Problem Hypertriglyceridemia E78.1 Active 946322826 Problem [facility] 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 Active 733348807 Problem Primary insomnia F51.01 Active 4056979 Problem Periodontitis K05.30 Active 63240276 Problem Benign prostatic hyperplasia with lower urinary tract symptoms, unspecified morphology N40.1 Active 150955828 Problem Neuropathy G62.9 Active 643106715 Problem Hypoglycemia E16.2 Active [id number] ALLERGIES No Information ENCOUNTERS Encounter Location Date Diagnosis [facility] [address] [address] Aug, [facility] [address] [address] Aug, Cellulitis of left lower extremity L03.116 [facility] [id number] [place] [id number] 16 Aug, 2017 Cellulitis of left knee L03.116 [facility] [id number] [place] [address] 15 Aug, 2017 Cellulitis of left knee L03.116 [facility] [id number] [place] [phone] 06 Aug, 2017 Hypertriglyceridemia E78.1 [facility] [address] [address] Aug, [facility] [id number] [place] [phone] Jul, Hypertriglyceridemia E78.1 [facility] [id number] [place] [phone] Jul, Benign prostatic hyperplasia with lower urinary tract symptoms, unspecified morphology N40.1 [facility] [address] [address] Jul, [facility] [id number] [place] [phone] Jun, [place] [address] [address] Jun, Hypertriglyceridemia E78.1 [place] [id number] [place] [phone] Jun, Type 2 diabetes mellitus with unspecified complications E11.8 ; Encounter for immunization Z23 ; Neuropathy G62.9 ; Other chronic pain G89.29 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 [place] [id number] [place] [phone] Jun, [place] [id number] [place] [phone] May, [facility] [id number] [place] [phone] Apr, Benign prostatic hyperplasia with lower urinary tract symptoms, unspecified morphology N40.1 [facility] [id number] [place] [phone] Apr, [place] [address] [address] 13 Mar, 2017 Other chronic pain G89.29 ; Anxiety F41.9 and Neuropathy G62.9 [facility] [id number] [place] [phone] Mar, Type 2 diabetes mellitus with unspecified complications E11.8 and Other chronic pain G89.29 [facility] [id number] [place] [phone] 29 Feb, 2017 Neuropathy G62.9 [facility] [id number] [place] [id number] 15 Feb, 2017 Other chronic pain G89.29 and Anxiety F41.9 [facility] [id number] [place] [phone] Jan, [facility] [id number] [place] [phone] Jan, Other chronic pain G89.29 and Anxiety F41.9 [facility] [id number] [place] [phone] Dec, [facility] [address] [address] Dec, Other chronic pain G89.29 and Anxiety F41.9 [facility] [id number] [place] [address] Dec, [facility] [id number] [place] [phone] Dec, Primary insomnia F51.01 and Neuropathy G62.9 [facility] [id number] [place] [address] Nov, Anxiety F41.9 and Other chronic pain G89.29 [facility] [id number] [place] [phone] Nov, Type 2 diabetes mellitus with unspecified complications E11.8 ; Neuropathy G62.9 and Primary insomnia F51.01 [facility] [id number] [place] [address] October, Anxiety F41.9 and Other chronic pain G89.29 [facility] [id number] [place] [phone] October, Other chronic pain G89.29 ; Type 2 diabetes mellitus with unspecified complications E11.8 and Hypoglycemia E16.2 [place] [id number] [place] [phone] Sep, Other chronic pain G89.29 and Anxiety F41.9 [place] [id number] [place] [phone] Sep, [place] [address] [address] Aug, Other chronic pain G89.29 and Anxiety F41.9 [place] [address] [address] Aug, Rash R21 and Pain of right hip joint M25.551 [place] [id number] [place] [phone] Aug, [place] [id number] [place] [phone] Aug, [place] [id number] [place] [phone] Aug, Other chronic pain G89.29 and Anxiety F41.9 [place] [id number] [place] [address] Aug, Type 2 diabetes mellitus with unspecified complications E11.8 [place] [id number] [place] [phone] Jul, [place] [id number] [place] [address] Jul, Bronchitis J40 and Non-intractable vomiting, presence of nausea not specified, unspecified vomiting type R11.10 [place] [id number] [place] [address] Jul, [place] [id number] [place] [address] Jul, Other chronic pain G89.29 and Anxiety F41.9 [facility] [id number] [place] [phone] Jul, Type 2 diabetes mellitus with unspecified complications E11.8 [facility] [id number] [place] [address] Jun, Type 2 diabetes mellitus with unspecified complications E11.8 [facility] [address] [id number] Jun, Dental caries K02.9 [place] [address] [address] Jun, [facility] [address] [id number] Jun, Dental examination Z01.20 [facility] [address] [address] Jun, Right corneal abrasion, initial encounter S05.01XA [place] [address] [address] Jun, [place] [address] [address] Jun, Dental examination Z01.20 [place] [id number] [place] [address] Jun, [facility] [address] [address] Jun, Perforated ear drum, right H72.91 ; Tooth pain K08.89 ; Type 2 diabetes mellitus with unspecified complications E11.8 and Other chronic pain G89.29 [facility] [id number] [place] [address] Jun, [place] [id number] [place] [address] Jun, Other chronic pain G89.29 and Anxiety F41.9 [place] [id number] [place] [address] Jun, [place] [id number] [place], [place] [address] May, Type 2 diabetes mellitus with unspecified complications E11.8 ; Benign prostatic hyperplasia with lower urinary tract symptoms, unspecified morphology N40.1 and Other chronic pain G89.29 [place] [id number] [place] [address] 09 May, 2016 Other chronic pain G89.29 and Anxiety F41.9 [place] [address] [address] Apr, Other chronic pain G89.29 and Anxiety F41.9 [place] [id number] [place] [phone] Mar, [place] [id number] [place] [address] Mar, Anxiety F41.9 and Other chronic pain G89.29 [place] [id number] [place] [address] 14 Mar, 2016 Other chronic pain G89.29 and [facility] 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 Z79.891 [place] [id number] [place] [address] Mar, Other chronic pain G89.29 ; [facility] 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 Z79.891 and Anxiety F41.9 [place] [address] [place] [address] 30 Feb, 2016 Bronchitis J40 [place] [id number] [place] [address] 19 Feb, 2016 Other chronic pain G89.29 [place] [id number] [place] [address] 15 Feb, 2016 Type 2 diabetes mellitus with unspecified complications E11.8 [place] [address] [place] [address] Jan, Anxiety F41.9 [place] [id number] [place] [phone] Jan, [place] [id number] [place] [address] Jan, [place] [id number] [place] [address] Jan, Type 2 diabetes mellitus with unspecified complications E11.8 and Other chronic pain G89.29 [place] [id number] [place] [phone] Jan, [place] [id number] [place] [address] Jan, Dehydration E86.0 and Type 2 diabetes mellitus with unspecified complications E11.8 [place] [id number] [place] [address] Jan, [place] [id number] [place] [address] Dec, Anxiety F41.9 [place] [id number] [place] [address] Dec, Encounter to establish care Z76.89 ; Type 2 diabetes mellitus with unspecified complications E11.8 ; [facility] 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 ; Dorsalgia, unspecified M54.9 ; Other chronic pain G89.29 ; Insomnia, unspecified type G47.00 ; Neuropathy G62.9 and Bilateral tinnitus H93.13 [place] [id number] [place] [phone] Dec, IMMUNIZATIONS No Known Immunizations SOCIAL HISTORY Never Assessed REASON FOR VISIT Controlled Med Refill 01/10/2017 PLAN OF CARE VITAL SIGNS MEDICATIONS Medication Instructions Dosage Frequency Start Date End Date Duration Status Hydrocodone-Acetaminophen 10-325 MG Orally 3 times a day 1 tablet 8h Dec, 28 days Active Alprazolam 1 MG Orally Once a day 1 tablet at bedtime 24h 28 days Active RESULTS No Results PROCEDURES No Known procedures INSTRUCTIONS MEDICATIONS ADMINISTERED No Known Medications MEDICAL (GENERAL) HISTORY Type Description Date Medical History Type 2 diabetes mellitus without complications Medical History [facility] (current) use of insulin Medical History Other [...]
--- OUTSIDE RECORDS SUMMARY | 2018-12-07 13:26 | XMS REPORT ---
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 Role Phone SARAH GOLDMAN Unavailable PROBLEMS Type Condition ICD9-CM Code [id number] Code Onset Dates Condition Status SNOMED Code Problem Type 2 diabetes mellitus with unspecified complications E11.8 Active 95081474 Problem Other chronic pain G89.29 Active 09148327 Problem Anxiety F41.9 Active 71553686 Problem Hypertriglyceridemia E78.1 Active 417432896 Problem [facility] 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 Active 069716222 Problem Primary insomnia F51.01 Active 3034297 Problem Periodontitis K05.30 Active 45246145 Problem Benign prostatic hyperplasia with lower urinary tract symptoms, unspecified morphology N40.1 Active 125674488 Problem Neuropathy G62.9 Active 128322969 Problem Hypoglycemia E16.2 Active [id number] ALLERGIES No Information ENCOUNTERS Encounter Location Date Diagnosis [facility] [id number] [place] [address] Dec, [facility] [id number] [place] [address] Nov, [facility] [id number] [place] [address] Nov, Hypertriglyceridemia E78.1 and Benign prostatic hyperplasia with lower urinary tract symptoms, unspecified morphology N40.1 [facility] [id number] [place] [address] 06 Nov, 2017 Therapeutic drug monitoring Z51.81 ; Hypertriglyceridemia E78.1 ; Type 2 diabetes mellitus with unspecified complications E11.8 ; Tobacco abuse Z72.0 ; Chronic prescription opiate use Z79.891 and Chronically on benzodiazepine therapy Z79.899 [facility] [id number] [address] October, Neuropathy G62.9 [facility] [id number] [place] [address] October, Neuropathy G62.9 [facility] [id number] [place] [address] October, [facility] [id number] [place] [address] Sep, [facility] [id number] [place] [address] Sep, Anemia, unspecified type D64.9 [facility] [address] [place], [place] [id number] [address] Sep, Anemia, unspecified type D64.9 [facility] [id number] [place] [address] Aug, [facility] [id number] [place] [address] Aug, Cellulitis of left lower extremity L03.116 [facility] [id number] [place] [address] Aug, Cellulitis of left knee L03.116 [facility] [id number] [place] [address] Aug, Cellulitis of left knee L03.116 [facility] [address] [place] [address] Aug, Hypertriglyceridemia E78.1 [facility] [id number] [place] [address] Aug, [facility] [id number] [place] [address] Jul, Hypertriglyceridemia E78.1 [facility] [id number] [place] [address] 08 Jul, 2017 Benign prostatic hyperplasia with lower urinary tract symptoms, unspecified morphology N40.1 [facility] [id number] [place] [address] 02 Jul, 2017 [facility] [id number] [place] [address] Jun, [facility] [id number] [place] [address] Jun, Hypertriglyceridemia E78.1 [facility] [id number] [place] [address] 10 Jun, 2017 Type 2 diabetes mellitus with unspecified complications E11.8 ; Encounter for immunization Z23 ; Neuropathy G62.9 ; Other chronic pain G89.29 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 [facility] [id number] [place] [address] Jun, [facility] [id number] [place] [address] May, [facility] [id number] [place] [address] Apr, Benign prostatic hyperplasia with lower urinary tract symptoms, unspecified morphology N40.1 [facility] [id number] [place] [address] Apr, [facility] [id number] [place] [address] Mar, Other chronic pain G89.29 ; Anxiety F41.9 and Neuropathy G62.9 [facility] [id number] [place] [address] 09 Mar, 2017 Type 2 diabetes mellitus with unspecified complications E11.8 and Other chronic pain G89.29 [facility] [id number] [place] [address] Feb, Neuropathy G62.9 [facility] [address] [place] [address] 15 Feb, 2017 Other chronic pain G89.29 and Anxiety F41.9 [facility] [id number] [place] [address] Jan, [facility] [id number] [place] [address] Jan, Other chronic pain G89.29 and Anxiety F41.9 [facility] [id number] [place] [address] Dec, [facility] [id number] [place] [address] Dec, Other chronic pain G89.29 and Anxiety F41.9 [facility] [id number] [place] [address] Dec, [facility] [id number] [place] [address] Dec, Primary insomnia F51.01 and Neuropathy G62.9 [facility] [id number] [place] [address] Nov, Anxiety F41.9 and Other chronic pain G89.29 [facility] [id number] [place] [address] Nov, Type 2 diabetes mellitus with unspecified complications E11.8 ; Neuropathy G62.9 and Primary insomnia F51.01 [facility] [id number] [place] [address] October, Anxiety F41.9 and Other chronic pain G89.29 [facility] [id number] [place] [address] October, Other chronic pain G89.29 ; Type 2 diabetes mellitus with unspecified complications E11.8 and Hypoglycemia E16.2 [facility] [id number] [place] [address] Sep, Other chronic pain G89.29 and Anxiety F41.9 [facility] [id number] [place] [address] Sep, [facility] [id number] [place] [address] Aug, Other chronic pain G89.29 and Anxiety F41.9 [facility] [id number] [place] [address] Aug, Rash R21 and Pain of right hip joint M25.551 [facility] [id number] [place] [address] Aug, [facility] [id number] [place] [address] Aug, [facility] [id number] [place] [address] Aug, Other chronic pain G89.29 and Anxiety F41.9 [facility] [id number] [place] [address] Aug, Type 2 diabetes mellitus with unspecified complications E11.8 [facility] [id number] [place] [address] Jul, [facility] [id number] [place] [address] Jul, Bronchitis J40 and Non-intractable vomiting, presence of nausea not specified, unspecified vomiting type R11.10 [facility] [id number] [place] [address] Jul, [facility] [id number] [place] [address] Jul, Other chronic pain G89.29 and Anxiety F41.9 [facility] [id number] [place] [address] Jul, Type 2 diabetes mellitus with unspecified complications E11.8 [facility] [address] [place] [address] Jun, Type 2 diabetes mellitus with unspecified complications E11.8 [facility] [id number] [place] [id number] Jun, Dental caries K02.9 [facility] [id number] [place] [address] Jun, [facility] [id number] [place] [id number] Jun, Dental examination Z01.20 [facility] [id number] [place] [address] Jun, Right corneal abrasion, initial encounter S05.01XA [facility] [id number] [place] [address] Jun, [facility] [id number] [place] [address] Jun, Dental examination Z01.20 [facility] [id number] [place] [address] Jun, [facility] [id number] [place] [address] Jun, Perforated ear drum, right H72.91 ; Tooth pain K08.89 ; Type 2 diabetes mellitus with unspecified complications E11.8 and Other chronic pain G89.29 [facility] [address] [place] [address] Jun, [facility] [id number] [place] [address] Jun, Other chronic pain G89.29 and Anxiety F41.9 [facility] [id number] [place] [address] Jun, [facility] [id number] [place] [address] May, Type 2 diabetes mellitus with unspecified complications E11.8 ; Benign prostatic hyperplasia with lower urinary tract symptoms, unspecified morphology N40.1 and Other chronic pain G89.29 [facility] [id number] [place], [place] [address] May, Other chronic pain G89.29 and Anxiety F41.9 [facility] [id number] [place] [address] Apr, Other chronic pain G89.29 and Anxiety F41.9 [facility] [address] [address] Mar, [facility] [address] [address] Mar, Anxiety F41.9 and Other chronic pain G89.29 [facility] [id number] [place] [address] Mar, Other chronic pain G89.29 and [facility] 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 Z79.891 [facility] [id number] [place] [address] Mar, Other chronic pain G89.29 ; [facility] 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 Z79.891 and Anxiety F41.9 [facility] [id number] [place] [address] Feb, Bronchitis J40 [facility] [id number] [place] [address] Feb, Other chronic pain G89.29 [facility] [id number] [place] [address] 15 Feb, 2016 Type 2 diabetes mellitus with unspecified complications E11.8 [facility] [id number] [place] [address] Jan, Anxiety F41.9 [facility] [id number] [place] [address] Jan, [facility] [address] [address] Jan, [facility] [id number] [place] [address] Jan, Type 2 diabetes mellitus with unspecified complications E11.8 and Other chronic pain G89.29 [facility] [id number] [place] [address] Jan, [facility] [id number] [place] [address] Jan, Dehydration E86.0 and Type 2 diabetes mellitus with unspecified complications E11.8 [id number] [place] [address] Jan, [facility] [id number] [place] [address] Dec, Anxiety F41.9 [place] [id number] [place] [address] Dec, Encounter to establish care Z76.89 ; Type 2 diabetes mellitus with unspecified complications E11.8 ; [facility] 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 ; Dorsalgia, unspecified M54.9 ; Other chronic pain G89.29 ; Insomnia, unspecified type G47.00 ; Neuropathy G62.9 and Bilateral tinnitus H93.13 [place] [id number] [place] [address] Dec, IMMUNIZATIONS No Known Immunizations SOCIAL HISTORY Never Assessed REASON FOR VISIT Lab (walk-in) PLAN OF CARE VITAL SIGNS MEDICATIONS Unknown Medications RESULTS No Results PROCEDURES Procedure Date Ordered Result Body Site COMPREHEN METABOLIC PANEL Aug 05, 2017 LIPID PANEL Aug 05, 2017 VENIPUNCT, ROUTINE* Aug 05, 2017 INSTRUCTIONS MEDICATIONS ADMINISTERED No Known Medications MEDICAL (GENERAL) HISTORY Type Description Date Medical History Type 2 diabetes mellitus without complications Medical History [facility] (current) use of insulin Medical History Other [...]
--- OUTSIDE RECORDS SUMMARY | 2018-12-07 13:26 | XMS REPORT ---
Author Author SARAH GOLDMAN [facility] Address [address] [place] [address] Care Team Providers Care Chancery Clerk Name Role Phone SARAH GOLDMAN Unavailable PROBLEMS Type Condition ICD9-CM Code [id number] Code Onset Dates Condition Status SNOMED Code Problem Type 2 diabetes mellitus with unspecified complications E11.8 Active 01394219 Problem Other chronic pain G89.29 Active 63171941 Problem Anxiety F41.9 Active 46207090 Problem Hypertriglyceridemia E78.1 Active 122488016 Problem [facility] 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 Active 614168985 Problem Primary insomnia F51.01 Active 1248991 Problem Periodontitis K05.30 Active 24670119 Problem Benign prostatic hyperplasia with lower urinary tract symptoms, unspecified morphology N40.1 Active 302538898 Problem Neuropathy G62.9 Active 456487074 Problem Hypoglycemia E16.2 Active [id number] ALLERGIES No Information ENCOUNTERS Encounter Location Date Diagnosis [facility] [id number] [place] [address] Nov, [facility] [address] [address] October, Neuropathy G62.9 [facility] [address] [address] October, Neuropathy G62.9 [facility] [id number] [place] [address] October, [facility] [address] [address] Sep, [facility] [id number] [place] [address] Sep, Anemia, unspecified type D64.9 [facility] [address] [id number] [address] Sep, Anemia, unspecified type D64.9 [facility] [place] [address], [place] [address] Aug, [place] [id number] [place] [address] Aug, Cellulitis of left lower extremity L03.116 [facility] [address], [place] [address] 16 Aug, 2017 Cellulitis of left knee L03.116 [facility] [id number] [place] [address] 15 Aug, 2017 Cellulitis of left knee L03.116 [facility] [address], [place] [address] 06 Aug, 2017 Hypertriglyceridemia E78.1 [facility] [address], [place] [address] Aug, [facility] [id number] [place] [address] Jul, Hypertriglyceridemia E78.1 [facility] [facility] [address], [place] [address] Jul, Benign prostatic hyperplasia with lower urinary tract symptoms, unspecified morphology N40.1 [facility] [address], [place] [address] Jul, [facility] [address], [place] [address] Jun, [facility] [id number] [place] [address] Jun, Hypertriglyceridemia E78.1 [facility] [address], [place] [address] Jun, Type 2 diabetes mellitus with unspecified complications E11.8 ; Encounter for immunization Z23 ; Neuropathy G62.9 ; Other chronic pain G89.29 and [facility] 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 [facility] [id number] [place] [address] Jun, [facility] [id number] [place] [address] May, [facility] [address] [address] Apr, Benign prostatic hyperplasia with lower urinary tract symptoms, unspecified morphology N40.1 [place] [address] [address] Apr, [facility] [facility] [address] [address] Mar, Other chronic pain G89.29 ; Anxiety F41.9 and Neuropathy G62.9 [facility] [address] [address] 09 Mar, 2017 Type 2 diabetes mellitus with unspecified complications E11.8 and Other chronic pain G89.29 [facility] [id number] [place] [address] 29 Feb, 2017 Neuropathy G62.9 [facility] [id number] [place] [address] 15 Feb, 2017 Other chronic pain G89.29 and Anxiety F41.9 [facility] [id number] [place] [address] Jan, [facility] [id number] [place] [address] Jan, Other chronic pain G89.29 and Anxiety F41.9 [facility] [id number] [place] [address] Dec, [facility] [address] [address] Dec, Other chronic pain G89.29 and Anxiety F41.9 [facility] [facility] [id number] [place] [address] Dec, [facility] [id number] [place] [address] Dec, Primary insomnia F51.01 and Neuropathy G62.9 [facility] [id number] [place] [address] Nov, Anxiety F41.9 and Other chronic pain G89.29 [facility] [id number] [place] [address] Nov, Type 2 diabetes mellitus with unspecified complications E11.8 ; Neuropathy G62.9 and Primary insomnia F51.01 [facility] [id number] [place] [address] October, Anxiety F41.9 and Other chronic pain G89.29 [facility] [id number] [place] [address] October, Other chronic pain G89.29 ; Type 2 diabetes mellitus with unspecified complications E11.8 and Hypoglycemia E16.2 [facility] [id number] [place] [address] Sep, Other chronic pain G89.29 and Anxiety F41.9 [facility] [id number] [place] [address] Sep, [facility] [id number] [place] [address] Aug, Other chronic pain G89.29 and Anxiety F41.9 [facility] [id number] [place] [address] Aug, Rash R21 and Pain of right hip joint M25.551 [facility] [id number] [place] [address] Aug, [facility] [id number] [place] [address] Aug, [facility] [address] [address] Aug, Other chronic pain G89.29 and Anxiety F41.9 [facility] [address] [address] Aug, Type 2 diabetes mellitus with unspecified complications E11.8 [facility] [address] [address] Jul, [facility] [address] [address] Jul, Bronchitis J40 and Non-intractable vomiting, presence of nausea not specified, unspecified vomiting type R11.10 [facility] [address] [address] Jul, [facility] [address] [address] Jul, Other chronic pain G89.29 and Anxiety F41.9 [facility] [id number] [place] [address] Jul, Type 2 diabetes mellitus with unspecified complications E11.8 [facility] [id number] [place] [address] Jun, Type 2 diabetes mellitus with unspecified complications E11.8 [facility] [id number] [place] [id number] Jun, Dental caries K02.9 [facility] [id number] [place] [address] Jun, [facility] [id number] [place] [id number] Jun, Dental examination Z01.20 [facility] [id number] [place] [address] Jun, Right corneal abrasion, initial encounter S05.01[address] [place] [address] [address] Jun, [place] [address] [address] Jun, Dental examination Z01.20 [place] [address] [address] Jun, [place] [address] [address] Jun, Perforated ear drum, right H72.91 ; Tooth pain K08.89 ; Type 2 diabetes mellitus with unspecified complications E11.8 and Other chronic pain G89.29 [place] [address] [address] Jun, [place] [address] [address] Jun, Other chronic pain G89.29 and Anxiety F41.9 [place] [address] [address] Jun, [place] [address] [address] May, Type 2 diabetes mellitus with unspecified complications E11.8 ; Benign prostatic hyperplasia with lower urinary tract symptoms, unspecified morphology N40.1 and Other chronic pain G89.29 [place] [address] [address] May, Other chronic pain G89.29 and Anxiety F41.9 [place] [address] [address] Apr, Other chronic pain G89.29 and Anxiety F41.9 [place] [address] [address] Mar, [place] [address] [place] [address] 17 Mar, 2016 Anxiety F41.9 and Other chronic pain G89.29 [facility] [id number] [place] [address] 14 Mar, 2016 Other chronic 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.29 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 [facility] [id number] [place] [address] 14 Mar, 2016 Other chronic pain G89.29 ; 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 and Anxiety F41.9 [place] [id number] [place] [address] 30 Feb, 2016 Bronchitis J40 [facility] [id number] [place] [address] 19 Feb, 2016 Other chronic pain G89.29 [facility] [id number] [place] [address] 15 Feb, 2016 Type 2 diabetes mellitus with unspecified complications E11.8 [facility] [id number] [place] [address] Jan, Anxiety F41.9 [facility] [id number] [place] [address] Jan, [place] [id number] [place] [address] Jan, [facility] [id number] [place] [address] Jan, Type 2 diabetes mellitus with unspecified complications E11.8 and Other chronic pain G89.29 [facility] [id number] [place] [address] Jan, [facility] [id number] [place] [address] Jan, Dehydration E86.0 and Type 2 diabetes mellitus with unspecified complications E11.8 [place] [address] [address] Jan, [place] [address] [facility] [id number] [address] Dec, Anxiety F41.9 [place] [id number] [address] Dec, Encounter to establish care Z76.89 ; Type 2 diabetes mellitus with unspecified complications E11.8 ; 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 ; Dorsalgia, unspecified M54.9 ; Other chronic pain G89.29 ; Insomnia, unspecified type G47.00 ; Neuropathy G62.9 and Bilateral tinnitus H93.13 [place] [address] [facility] [id number] [address] Dec, IMMUNIZATIONS No Known Immunizations SOCIAL HISTORY Never Assessed REASON FOR VISIT Controlled Refill Request PLAN OF CARE VITAL SIGNS MEDICATIONS Medication Instructions Dosage Frequency Start Date End Date Duration Status Hydrocodone-Acetaminophen 10-325 MG Orally 3 times a day 1 tablet 8h 07 May, 2017 28 days Active Alprazolam 1 MG Orally Once a day 1 tablet at bedtime 24h 28 days Active RESULTS No Results PROCEDURES No Known procedures INSTRUCTIONS MEDICATIONS ADMINISTERED No Known Medications MEDICAL (GENERAL) HISTORY Type Description Date Medical History Type 2 diabetes mellitus without complications Medical History 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
--- OUTSIDE RECORDS SUMMARY | 2018-12-07 13:26 | XMS REPORT ---
Author Author SARAH GOLDMAN Organization [facility] Address [address] [place] [address] Care Team Providers Care Consumer Electronic Retail Specialist Name Role Phone SARAH GOLDMAN Unavailable PROBLEMS Type Condition ICD9-CM Code [id number] Code Onset Dates Condition Status SNOMED Code Problem Type 2 diabetes mellitus with unspecified complications E11.8 Active 74175676 Problem Other chronic pain G89.29 Active 64628735 Problem Anxiety F41.9 Active 49321795 Problem Hypertriglyceridemia E78.1 Active 786701588 Problem halfway 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 Active 499340573 Problem Primary insomnia F51.01 Active 8998163 Problem Periodontitis K05.30 Active 72708912 Problem Benign prostatic hyperplasia with lower urinary tract symptoms, unspecified morphology N40.1 Active 989260857 Problem Neuropathy G62.9 Active 392594982 Problem Hypoglycemia E16.2 Active 616240585 ALLERGIES No Information ENCOUNTERS Encounter Location Date Diagnosis [place] [id number] [place] [address] Dec, [place] [id number] [place] [address] Nov, [place] [id number] [place] [address] Nov, Hypertriglyceridemia E78.1 and Benign prostatic hyperplasia with lower urinary tract symptoms, unspecified morphology N40.1 [facility] [id number] [place] [address] 06 Nov, 2017 Therapeutic drug monitoring Z51.81 ; Hypertriglyceridemia E78.1 ; Type 2 diabetes mellitus with unspecified complications E11.8 ; Tobacco abuse Z72.0 ; Chronic prescription opiate use Z79.891 and Chronically on benzodiazepine therapy Z79.899 [place] [id number] [address] October, Neuropathy G62.9 [facility] [id number] [place] [address] October, Neuropathy G62.9 [facility] [id number] [place] [address] October, [facility] [id number] [place] [address] Sep, [facility] [id number] [place] [address] Sep, Anemia, unspecified type D64.9 [facility] [address] [place] [id number] [address] Sep, Anemia, unspecified type D64.9 [facility] [id number] [place] [address] Aug, [facility] [id number] [place] [address] Aug, Cellulitis of left lower extremity L03.116 [facility] [id number] [place] [address] Aug, Cellulitis of left knee L03.116 [facility] [id number] [place] [address] Aug, Cellulitis of left knee L03.116 [facility] [id number] [place] [address] Aug, Hypertriglyceridemia E78.1 [facility] [id number] [place] [address] Aug, [facility] [id number] [place] [address] Jul, Hypertriglyceridemia E78.1 [facility] [id number] [place] [address] 08 Jul, 2017 Benign prostatic hyperplasia with lower urinary tract symptoms, unspecified morphology N40.1 [facility] [id number] [place] [address] 02 Jul, 2017 [facility] [id number] [place] [address] Jun, [place] [id number] [place] [address] Jun, Hypertriglyceridemia E78.1 [place] [id number] [place] [address] 10 Jun, 2017 Type 2 diabetes mellitus with unspecified complications E11.8 ; Encounter for immunization Z23 ; Neuropathy G62.9 ; Other chronic pain G89.29 and 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 [facility] [id number] [place] [address] Jun, [place] [id number] [place] [address] May, [facility] [id number] [place] [address] Apr, Benign prostatic hyperplasia with lower urinary tract symptoms, unspecified morphology N40.1 [place] [id number] [place] [address] Apr, [facility] [id number] [place] [address] Mar, Other chronic pain G89.29 ; Anxiety F41.9 and Neuropathy G62.9 [place] [id number] [place] [address] 09 Mar, 2017 Type 2 diabetes mellitus with unspecified complications E11.8 and Other chronic pain G89.29 [facility] [id number] [place] [address] Feb, Neuropathy G62.9 [facility] [address] [place] [address] 15 Feb, 2017 Other chronic pain G89.29 and Anxiety F41.9 [facility] [id number] [place] [address] Jan, [facility] [id number] [place] [address] Jan, Other chronic pain G89.29 and Anxiety F41.9 [facility] [id number] [place] [address] Dec, [place] [id number] [place] [address] Dec, Other chronic pain G89.29 and Anxiety F41.9 [place] [id number] [place] [address] Dec, [place] [id number] [place] [address] Dec, Primary insomnia F51.01 and Neuropathy G62.9 [place] [id number] [place] [address] Nov, Anxiety F41.9 and Other chronic pain G89.29 [place] [id number] [place] [address] Nov, Type 2 diabetes mellitus with unspecified complications E11.8 ; Neuropathy G62.9 and Primary insomnia F51.01 [facility] [id number] [place] [address] October, Anxiety F41.9 and Other chronic pain G89.29 [place] [id number] [place] [address] October, Other chronic pain G89.29 ; Type 2 diabetes mellitus with unspecified complications E11.8 and Hypoglycemia E16.2 [place] [id number] [place] [address] Sep, Other chronic pain G89.29 and Anxiety F41.9 [facility] [id number] [place] [address] Sep, [facility] [id number] [place] [address] Aug, Other chronic pain G89.29 and Anxiety F41.9 [facility] [id number] [place] [address] Aug, Rash R21 and Pain of right hip joint M25.551 [facility] [id number] [place] [address] Aug, [facility] [id number] [place] [address] Aug, [facility] [id number] [place] [address] Aug, Other chronic pain G89.29 and Anxiety F41.9 [facility] [id number] [place] [address] Aug, Type 2 diabetes mellitus with unspecified complications E11.8 [facility] [id number] [place] [address] Jul, [facility] [id number] [place] [address] Jul, Bronchitis J40 and Non-intractable vomiting, presence of nausea not specified, unspecified vomiting type R11.10 [facility] [id number] [place] [address] Jul, [facility] [id number] [place] [address] Jul, Other chronic pain G89.29 and Anxiety F41.9 [facility] [id number] [place] [address] Jul, Type 2 diabetes mellitus with unspecified complications E11.8 [place] [id number] [place] [address] Jun, Type 2 diabetes mellitus with unspecified complications E11.8 [facility] [id number] [place] [id number] Jun, Dental caries K02.9 [facility] [id number] [place] [address] Jun, [facility] [id number] [place] [id number] Jun, Dental examination Z01.20 [facility] [id number] [place] [address] Jun, Right corneal abrasion, initial encounter S05.01XA [facility] [id number] [place] [address] Jun, [facility] [id number] [place] [address] Jun, Dental examination Z01.20 [facility] [id number] [place] [address] Jun, [facility] [id number] [place] [address] Jun, Perforated ear drum, right H72.91 ; Tooth pain K08.89 ; Type 2 diabetes mellitus with unspecified complications E11.8 and Other chronic pain G89.29 [facility] [id number] [place] [address] Jun, [facility] [id number] [place] [address] Jun, Other chronic pain G89.29 and Anxiety F41.9 [facility] [id number] [place] [address] Jun, [facility] [id number] [place] [address] May, Type 2 diabetes mellitus with unspecified complications E11.8 ; Benign prostatic hyperplasia with lower urinary tract symptoms, unspecified morphology N40.1 and Other chronic pain G89.29 [facility] [id number] [place], [place] [phone] May, Other chronic pain G89.29 and Anxiety F41.9 [facility] [id number] [place] [address] Apr, Other chronic pain G89.29 and Anxiety F41.9 [place] [address] [address] Mar, [place] [address] [address] Mar, Anxiety F41.9 and Other chronic pain G89.29 [place] [id number] [place] [address] Mar, Other chronic pain G89.29 and halfway 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 Z79.891 [facility] [id number] [place] [address] Mar, Other chronic pain G89.29 ; halfway 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 Z79.891 and Anxiety F41.9 [facility] [id number] [place] [address] Feb, Bronchitis J40 [facility] [id number] [place] [address] Feb, Other chronic pain G89.29 [facility] [id number] [place] [address] 15 Feb, 2016 Type 2 diabetes mellitus with unspecified complications E11.8 [facility] [id number] [place] [address] Jan, Anxiety F41.9 [facility] [id number] [place] [address] Jan, [place] [id number] [place] [address] Jan, [place] [id number] [place] [address] Jan, Type 2 diabetes mellitus with unspecified complications E11.8 and Other chronic pain G89.29 [place] [id number] [place] [address] Jan, [place] [id number] [place] [address] Jan, Dehydration E86.0 and Type 2 diabetes mellitus with unspecified complications E11.8 [place] [id number] [place] [address] Jan, [place] [address] [address] Dec, Anxiety F41.9 [place] [id number] [place] [address] Dec, Encounter to establish care Z76.89 ; Type 2 diabetes mellitus with unspecified complications E11.8 ; halfway 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 ; Dorsalgia, unspecified M54.9 ; Other chronic pain G89.29 ; Insomnia, unspecified type G47.00 ; Neuropathy G62.9 and Bilateral tinnitus H93.13 [place] [id number] [place] [address] Dec, IMMUNIZATIONS No Known Immunizations SOCIAL HISTORY Never Assessed REASON FOR VISIT medication PLAN OF CARE VITAL SIGNS MEDICATIONS Medication Instructions Dosage Frequency Start Date End Date Duration Status Tamsulosin HCl 0.4 MG Orally Once a day 1 capsule 24h Jul, 30 day(s) Active RESULTS No Results PROCEDURES No Known procedures INSTRUCTIONS MEDICATIONS ADMINISTERED No Known Medications MEDICAL (GENERAL) HISTORY Type Description Date Medical History Type 2 diabetes mellitus without complications Medical History 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
--- OUTSIDE RECORDS SUMMARY | 2018-12-07 13:27 | XMS REPORT ---
Author Author SARAH GOLDMAN Organization [facility] Address [address] [place] [address] Care Team Providers Care [employer] Sales Representative Name Role Phone SARAH GOLDMAN Unavailable PROBLEMS Type Condition ICD9-CM Code [id number] Code Onset Dates Condition Status SNOMED Code Problem Type 2 diabetes mellitus with unspecified complications E11.8 Active 67413351 Problem Other chronic pain G89.29 Active 40311369 Problem Anxiety F41.9 Active 37880095 Problem Hypertriglyceridemia E78.1 Active 694020801 Problem USP 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 Active 360451948 Problem Primary insomnia F51.01 Active 1679658 Problem Periodontitis K05.30 Active 48955783 Problem Benign prostatic hyperplasia with lower urinary tract symptoms, unspecified morphology N40.1 Active 600596210 Problem Neuropathy G62.9 Active 931482513 Problem Hypoglycemia E16.2 Active 707297841 ALLERGIES No Information ENCOUNTERS Encounter Location Date Diagnosis [facility] [address] [address] Aug, [facility] [address] [address] Aug, Cellulitis of left lower extremity L03.116 [facility] [id number] [place] [address] 16 Aug, 2017 Cellulitis of left knee L03.116 [facility] [id number] [place] [address] 15 Aug, 2017 Cellulitis of left knee L03.116 [facility] [id number] [place] [address] 06 Aug, 2017 Hypertriglyceridemia E78.1 [facility] [address] [address] Aug, [facility] [id number] [place] [address] Jul, Hypertriglyceridemia E78.1 [facility] [id number] [place] [address] Jul, Benign prostatic hyperplasia with lower urinary tract symptoms, unspecified morphology N40.1 [facility] [address] [address] Jul, [facility] [id number] [place] [address] Jun, [place] [address] [address] Jun, Hypertriglyceridemia E78.1 [place] [id number] [place] [address] Jun, Type 2 diabetes mellitus with unspecified complications E11.8 ; Encounter for immunization Z23 ; Neuropathy G62.9 ; Other chronic pain G89.29 and 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 [place] [id number] [place] [address] Jun, [place] [id number] [place] [address] May, [facility] [id number] [place] [address] Apr, Benign prostatic hyperplasia with lower urinary tract symptoms, unspecified morphology N40.1 [facility] [id number] [place] [address] Apr, [place] [address] [address] 13 Mar, 2017 Other chronic pain G89.29 ; Anxiety F41.9 and Neuropathy G62.9 [facility] [id number] [place] [address] Mar, Type 2 diabetes mellitus with unspecified complications E11.8 and Other chronic pain G89.29 [facility] [id number] [place] [address] 29 Feb, 2017 Neuropathy G62.9 [facility] [id number] [place] [address] 15 Feb, 2017 Other chronic pain G89.29 and Anxiety F41.9 [facility] [id number] [place] [address] Jan, [facility] [id number] [place] [address] Jan, Other chronic pain G89.29 and Anxiety F41.9 [facility] [id number] [place] [address] Dec, [facility] [address] [address] Dec, Other chronic pain G89.29 and Anxiety F41.9 [facility] [id number] [place] [address] Dec, [facility] [id number] [place] [address] Dec, Primary insomnia F51.01 and Neuropathy G62.9 [facility] [id number] [place] [address] Nov, Anxiety F41.9 and Other chronic pain G89.29 [facility] [id number] [place] [address] Nov, Type 2 diabetes mellitus with unspecified complications E11.8 ; Neuropathy G62.9 and Primary insomnia F51.01 [facility] [id number] [place] [address] October, Anxiety F41.9 and Other chronic pain G89.29 [facility] [id number] [place] [address] October, Other chronic pain G89.29 ; Type 2 diabetes mellitus with unspecified complications E11.8 and Hypoglycemia E16.2 [place] [id number] [place] [address] Sep, Other chronic pain G89.29 and Anxiety F41.9 [place] [id number] [place] [address] Sep, [place] [address] [address] Aug, Other chronic pain G89.29 and Anxiety F41.9 [place] [address] [address] Aug, Rash R21 and Pain of right hip joint M25.551 [place] [id number] [place] [address] Aug, [place] [id number] [place] [address] Aug, [place] [id number] [place] [address] Aug, Other chronic pain G89.29 and Anxiety F41.9 [place] [id number] [place] [address] Aug, Type 2 diabetes mellitus with unspecified complications E11.8 [place] [id number] [place] [address] Jul, [place] [id number] [place] [address] Jul, Bronchitis J40 and Non-intractable vomiting, presence of nausea not specified, unspecified vomiting type R11.10 [place] [id number] [place] [address] Jul, [place] [id number] [place] [address] Jul, Other chronic pain G89.29 and Anxiety F41.9 [facility] [id number] [place] [address] Jul, Type 2 diabetes mellitus with unspecified complications E11.8 [facility] [id number] [place] [address] Jun, Type 2 diabetes mellitus with unspecified complications E11.8 [facility] [address] [id number] Jun, Dental caries K02.9 [place] [address] [address] Jun, [facility] [address] [id number] Jun, Dental examination Z01.20 [facility] [address] [address] Jun, Right corneal abrasion, initial encounter S05.01XA [place] [address] [address] Jun, [place] [address] [address] Jun, Dental examination Z01.20 [place] [id number] [place] [address] Jun, [facility] [address] [address] Jun, Perforated ear drum, right H72.91 ; Tooth pain K08.89 ; Type 2 diabetes mellitus with unspecified complications E11.8 and Other chronic pain G89.29 [facility] [id number] [place] [address] Jun, [place] [id number] [place] [address] Jun, Other chronic pain G89.29 and Anxiety F41.9 [place] [id number] [place] [address] Jun, [place] [id number] [place] [address] May, Type 2 diabetes mellitus with unspecified complications E11.8 ; Benign prostatic hyperplasia with lower urinary tract symptoms, unspecified morphology N40.1 and Other chronic pain G89.29 [place] [id number] [place] [address] 09 May, 2016 Other chronic pain G89.29 and Anxiety F41.9 [place] [address] [address] Apr, Other chronic pain G89.29 and Anxiety F41.9 [place] [id number] [place] [address] Mar, [place] [id number] [place] [address] Mar, Anxiety F41.9 and Other chronic pain G89.29 [place] [id number] [place] [address] 14 Mar, 2016 Other chronic pain G89.29 and USP 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 Z79.891 [place] [id number] [place] [address] Mar, Other chronic pain G89.29 ; USP 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 Z79.891 and Anxiety F41.9 [place] [address] [place] [address] 30 Feb, 2016 Bronchitis J40 [place] [id number] [place] [address] 19 Feb, 2016 Other chronic pain G89.29 [place] [id number] [place] [address] 15 Feb, 2016 Type 2 diabetes mellitus with unspecified complications E11.8 [place] [address] [place] [address] Jan, Anxiety F41.9 [place] [id number] [place] [address] Jan, [place] [id number] [place] [address] Jan, [place] [id number] [place] [address] Jan, Type 2 diabetes mellitus with unspecified complications E11.8 and Other chronic pain G89.29 [place] [id number] [place] [address] Jan, [place] [id number] [place] [address] Jan, Dehydration E86.0 and Type 2 diabetes mellitus with unspecified complications E11.8 [place] [id number] [place] [address] Jan, [place] [id number] [place] [address] Dec, Anxiety F41.9 [place] [id number] [place] [address] Dec, Encounter to establish care Z76.89 ; Type 2 diabetes mellitus with unspecified complications E11.8 ; USP 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 ; Dorsalgia, unspecified M54.9 ; Other chronic pain G89.29 ; Insomnia, unspecified type G47.00 ; Neuropathy G62.9 and Bilateral tinnitus H93.13 [place] [id number] [place] [address] Dec, IMMUNIZATIONS No Known Immunizations SOCIAL HISTORY Never Assessed REASON FOR VISIT Controlled Med Refill 12/23/2016 PLAN OF CARE VITAL SIGNS MEDICATIONS Medication Instructions Dosage Frequency Start Date End Date Duration Status Ambien 5 mg Orally Once a day 1 tablet at bedtime 24h Nov, 28 days Active RESULTS No Results [...]
--- OUTSIDE RECORDS SUMMARY | 2018-12-07 13:27 | XMS REPORT ---
Author Author SARAH GOLDMAN Organization [facility] Address [address] [place] [address] Care Team Providers Care Enterprise Solutions Architect Name Role Phone SARAH GOLDMAN Unavailable PROBLEMS Type Condition ICD9-CM Code [id number] Code Onset Dates Condition Status SNOMED Code Problem Type 2 diabetes mellitus with unspecified complications E11.8 Active 47537681 Problem Other chronic pain G89.29 Active 62566207 Problem Anxiety F41.9 Active 33072517 Problem Hypertriglyceridemia E78.1 Active 381802855 Problem assisted 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 Active 685257997 Problem Primary insomnia F51.01 Active 9332816 Problem Periodontitis K05.30 Active 73491560 Problem Benign prostatic hyperplasia with lower urinary tract symptoms, unspecified morphology N40.1 Active 502753282 Problem Neuropathy G62.9 Active 280154085 Problem Hypoglycemia E16.2 Active 546259302 ALLERGIES No Information ENCOUNTERS Encounter Location Date Diagnosis [facility] [address] [address] Aug, [facility] [address] [address] Aug, Cellulitis of left knee L03.116 [facility] [id number] [place] [address] 15 Aug, 2017 Cellulitis of left knee L03.116 [facility] [address] [address] Aug, Hypertriglyceridemia E78.1 [facility] [address] [address] Aug, [facility] [address] [address] Jul, Hypertriglyceridemia E78.1 [facility] [id number] [place] [address] 08 Jul, 2017 Benign prostatic hyperplasia with lower urinary tract symptoms, unspecified morphology N40.1 [facility] [id number] [place] [address] 02 Jul, 2017 [facility] [id number] [place] [address] Jun, [facility] [id number] [place] [address] Jun, Hypertriglyceridemia E78.1 [place] [id number] [place] [address] Jun, Type 2 diabetes mellitus with unspecified complications E11.8 ; Encounter for immunization Z23 ; Neuropathy G62.9 ; Other chronic pain G89.29 and assisted 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 [place] [id number] [place] [address] Jun, [place] [id number] [place] [address] May, [place] [id number] [place] [address] Apr, Benign prostatic hyperplasia with lower urinary tract symptoms, unspecified morphology N40.1 [place] [id number] [place] [address] Apr, [place] [id number] [place] [address] 13 Mar, 2017 Other chronic pain G89.29 ; Anxiety F41.9 and Neuropathy G62.9 [facility] [id number] [place] [address] 09 Mar, 2017 Type 2 diabetes mellitus with unspecified complications E11.8 and Other chronic pain G89.29 [place] [id number] [place] [address] 29 Feb, 2017 Neuropathy G62.9 [facility] [id number] [place] [address] 15 Feb, 2017 Other chronic pain G89.29 and Anxiety F41.9 [place] [id number] [place] [address] Jan, [place] [address] [address] Jan, Other chronic pain G89.29 and Anxiety F41.9 [place] [id number] [place] [address] Dec, [place] [id number] [place] [address] Dec, Other chronic pain G89.29 and Anxiety F41.9 [place] [id number] [place] [address] Dec, [place] [id number] [place] [address] Dec, Primary insomnia F51.01 and Neuropathy G62.9 [place] [id number] [place] [address] Nov, Anxiety F41.9 and Other chronic pain G89.29 [place] [id number] [place] [address] Nov, Type 2 diabetes mellitus with unspecified complications E11.8 ; Neuropathy G62.9 and Primary insomnia F51.01 [place] [id number] [place] [address] October, Anxiety F41.9 and Other chronic pain G89.29 [place] [id number] [place] [address] October, Other chronic pain G89.29 ; Type 2 diabetes mellitus with unspecified complications E11.8 and Hypoglycemia E16.2 [place] [id number] [place] [address] Sep, Other chronic pain G89.29 and Anxiety F41.9 [facility] [id number] [place] [address] Sep, [facility] [id number] [place] [address] Aug, Other chronic pain G89.29 and Anxiety F41.9 [facility] [id number] [place] [address] Aug, Rash R21 and Pain of right hip joint M25.551 [facility] [address] [address] Aug, [facility] [address] [address] Aug, [facility] [address] [address] Aug, Other chronic pain G89.29 and Anxiety F41.9 [facility] [id number] [place] [address] Aug, Type 2 diabetes mellitus with unspecified complications E11.8 [facility] [id number] [place] [address] Jul, [facility] [id number] [place] [address] Jul, Bronchitis J40 and Non-intractable vomiting, presence of nausea not specified, unspecified vomiting type R11.10 [facility] [address] [address] Jul, [facility] [id number] [place] [address] Jul, Other chronic pain G89.29 and Anxiety F41.9 [facility] [address] [place] [address] Jul, Type 2 diabetes mellitus with unspecified complications E11.8 [facility] [id number] [place] [address] Jun, Type 2 diabetes mellitus with unspecified complications E11.8 [facility] [id number] [place] [phone] Jun, Dental caries K02.9 [facility] [id number] [place] [address] Jun, [facility] [id number] [place] [id number] Jun, Dental examination Z01.20 [facility] [id number] [place] [address] Jun, Right corneal abrasion, initial encounter S05.01XA [facility] [address] [address] Jun, [facility] [id number] [place] [address] Jun, Dental examination Z01.20 [place] [id number] [place] [address] Jun, [facility] [id number] [place] [address] Jun, Perforated ear drum, right H72.91 ; Tooth pain K08.89 ; Type 2 diabetes mellitus with unspecified complications E11.8 and Other chronic pain G89.29 [facility] [id number] [place] [address] Jun, [place] [address] [address] Jun, Other chronic pain G89.29 and Anxiety F41.9 [facility] [id number] [place] [address] Jun, [facility] [id number] [place] [address] 15 May, 2016 Type 2 diabetes mellitus with unspecified complications E11.8 ; Benign prostatic hyperplasia with lower urinary tract symptoms, unspecified morphology N40.1 and Other chronic pain G89.29 [place] [id number] [place] [address] 09 May, 2016 Other chronic pain G89.29 and Anxiety F41.9 [place] [address] [address] Apr, Other chronic pain G89.29 and Anxiety F41.9 [place] [address] [address] Mar, [place] [address] [address] Mar, Anxiety F41.9 and Other chronic pain G89.29 [place] [address] [address] 14 Mar, 2016 Other chronic pain G89.29 and assisted 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 Z79.891 [place] [facility] [address] [address] Mar, Other chronic pain G89.29 ; assisted 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 Z79.891 and Anxiety F41.9 [place] [id number] [place] [address] 30 Feb, 2016 Bronchitis J40 [facility] [id number] [place] [address] 19 Feb, 2016 Other chronic pain G89.29 [facility] [place] [id number] [place] [address] 15 Feb, 2016 Type 2 diabetes mellitus with unspecified complications E11.8 [facility] [id number] [place] [address] Jan, Anxiety F41.9 [place] [address] [place] [address] Jan, [place] [id number] [place] [address] Jan, [facility] [place] [id number] [place] [address] Jan, Type 2 diabetes mellitus with unspecified complications E11.8 and Other chronic pain G89.29 [place] [id number] [place] [address] Jan, [facility] [id number] [place] [address] Jan, Dehydration E86.0 and Type 2 diabetes mellitus with unspecified complications E11.8 [facility] [id number] [place] [address] Jan, [facility] [place] [id number] [place] [address] Dec, Anxiety F41.9 [facility] [id number] [place] [address] Dec, Encounter to establish care Z76.89 ; Type 2 diabetes mellitus with unspecified complications E11.8 ; assisted 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 ; Dorsalgia, unspecified M54.9 ; Other chronic pain G89.29 ; Insomnia, unspecified type G47.00 ; Neuropathy G62.9 and Bilateral tinnitus H93.13 [facility] [place] [id number] [place] [address] Dec, IMMUNIZATIONS No Known Immunizations SOCIAL HISTORY Never Assessed REASON FOR VISIT Controlled Med Refill PLAN OF CARE VITAL SIGNS MEDICATIONS Medication Instructions Dosage Frequency Start Date End Date Duration Status Hydrocodone-Acetaminophen 10-325 MG Orally 3 times a day 1 tablet 8h Nov, 28 days Active Alprazolam 1 MG Orally Once a day 1 tablet at bedtime 24h 28 days Active RESULTS No Results PROCEDURES No Known procedures INSTRUCTIONS MEDICATIONS ADMINISTERED No Known Medications MEDICAL (GENERAL) HISTORY Type Description Date Medical History Type 2 diabetes mellitus without complications Medical History assisted (current) use of insulin Medical History Other [...]
--- OUTSIDE RECORDS SUMMARY | 2018-12-07 13:27 | XMS REPORT ---
Author Author SARAH GOLDMAN Organization [facility] Address [address] [place] [address] Care Team Providers Care Pipe Foreman Name Role Phone SARAH GOLDMAN Unavailable PROBLEMS Type Condition ICD9-CM Code EBU04-BS Code Onset Dates Condition Status SNOMED Code Problem Type 2 diabetes mellitus with unspecified complications E11.8 Active 81050427 Problem Other chronic pain G89.29 Active 87359565 Problem Anxiety F41.9 Active 46747107 Problem Hypertriglyceridemia E78.1 Active 327211057 Problem long-term 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 Active 145668702 Problem Primary insomnia F51.01 Active 5263461 Problem Periodontitis K05.30 Active 10080988 Problem Benign prostatic hyperplasia with lower urinary tract symptoms, unspecified morphology N40.1 Active 305648215 Problem Neuropathy G62.9 Active 238896820 Problem Hypoglycemia E16.2 Active 654267034 ALLERGIES No Information ENCOUNTERS Encounter Location Date Diagnosis [facility] [address] [address] Aug, [facility] [address] [address] Aug, Cellulitis of left lower extremity L03.116 [facility] [id number] [place] [id number] 16 Aug, 2017 Cellulitis of left knee L03.116 [facility] [id number] [place] [id number] 15 Aug, 2017 Cellulitis of left knee L03.116 [facility] [id number] [place] [id number] 06 Aug, 2017 Hypertriglyceridemia E78.1 [facility] [address] [address] Aug, [facility] [id number] [place] [phone] Jul, Hypertriglyceridemia E78.1 [facility] [id number] [place] [phone] Jul, Benign prostatic hyperplasia with lower urinary tract symptoms, unspecified morphology N40.1 [facility] [address] [address] Jul, 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 [id number] [place] [phone] Apr, Benign prostatic hyperplasia with lower urinary tract symptoms, unspecified morphology N40.1 [facility] [id number] [place] [phone] Apr, [place] [address] [address] 13 Mar, 2017 Other chronic pain G89.29 ; Anxiety F41.9 and Neuropathy G62.9 [facility] [id number] [place] [id number] Mar, Type 2 diabetes mellitus with unspecified complications E11.8 and Other chronic pain G89.29 [facility] [id number] [place] [phone] 29 Feb, 2017 Neuropathy G62.9 [facility] [id number] [place] [id number] 15 Feb, 2017 Other chronic pain G89.29 and Anxiety F41.9 [facility] [id number] [place] [phone] Jan, [facility] [id number] [place] [phone] Jan, Other chronic pain G89.29 and Anxiety F41.9 [facility] [id number] [place] [phone] Dec, [facility] [address] [address] Dec, Other chronic pain G89.29 and Anxiety F41.9 [facility] [id number] [place] [phone] Dec, [facility] [id number] [place] [phone] Dec, Primary insomnia F51.01 and Neuropathy G62.9 [facility] [id number] [place] [phone] Nov, Anxiety F41.9 and Other chronic pain G89.29 [facility] [id number] [place] [phone] Nov, Type 2 diabetes mellitus with unspecified complications E11.8 ; Neuropathy G62.9 and Primary insomnia F51.01 [facility] [id number] [place] [phone] October, Anxiety F41.9 and Other chronic pain G89.29 [facility] [id number] [place] [phone] October, Other chronic pain G89.29 ; Type 2 diabetes mellitus with unspecified complications E11.8 and Hypoglycemia E16.2 [place] [id number] [place] [phone] Sep, Other chronic pain G89.29 and Anxiety F41.9 [place] [id number] [place] [id number] Sep, [place] [address] [address] Aug, Other chronic pain G89.29 and Anxiety F41.9 [place] [address] [address] Aug, Rash R21 and Pain of right hip joint M25.551 [place] [id number] [place] [phone] Aug, [place] [id number] [place] [phone] Aug, [place] [id number] [place] [phone] Aug, Other chronic pain G89.29 and Anxiety F41.9 [place] [id number] [place] [phone] Aug, Type 2 diabetes mellitus with unspecified complications E11.8 [place] [id number] [place] [phone] Jul, [place] [id number] [place] [phone] Jul, Bronchitis J40 and Non-intractable vomiting, presence of nausea not specified, unspecified vomiting type R11.10 [place] [id number] [place] [phone] Jul, [place] [id number] [place] [phone] Jul, Other chronic pain G89.29 and Anxiety F41.9 [facility] [id number] [place] [phone] Jul, Type 2 diabetes mellitus with unspecified complications E11.8 [facility] [id number] [place] [phone] Jun, Type 2 diabetes mellitus with unspecified complications E11.8 [facility] [address] [id number] Jun, Dental caries K02.9 [place] [address] [address] Jun, [facility] [address] [id number] Jun, Dental examination Z01.20 [facility] [address] [address] Jun, Right corneal abrasion, initial encounter S05.01XA [place] [address] [address] Jun, [place] [address] [address] Jun, Dental examination Z01.20 [place] [id number] [place] [phone] Jun, [facility] [address] [address] Jun, Perforated ear drum, right H72.91 ; Tooth pain K08.89 ; Type 2 diabetes mellitus with unspecified complications E11.8 and Other chronic pain G89.29 [facility] [id number] [place] [phone] Jun, [place] [id number] [place] [phone] Jun, Other chronic pain G89.29 and Anxiety F41.9 [place] [id number] [place] [phone] Jun, [place] [id number] [place], [place] [address] May, Type 2 diabetes mellitus with unspecified complications E11.8 ; Benign prostatic hyperplasia with lower urinary tract symptoms, unspecified morphology N40.1 and Other chronic pain G89.29 [place] [id number] [place] [id number] 09 May, 2016 Other chronic pain G89.29 and Anxiety F41.9 [place] [address] [address] Apr, Other chronic pain G89.29 and Anxiety F41.9 [place] [id number] [place] [phone] Mar, [place] [id number] [place] [id number] Mar, Anxiety F41.9 and Other chronic pain G89.29 [place] [id number] [place] [phone] 14 Mar, 2016 Other chronic pain G89.29 and long-term 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 Z79.891 [place] [id number] [place] [phone] Mar, Other chronic pain G89.29 ; long-term 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 Z79.891 and Anxiety F41.9 [place] [id number] [place] [id number] 30 Feb, 2016 Bronchitis J40 [place] [id number] [place] [id number] 19 Feb, 2016 Other chronic pain G89.29 [place] [id number] [place] [phone] 15 Feb, 2016 Type 2 diabetes mellitus with unspecified complications E11.8 [place] [id number] [place] [phone] Jan, Anxiety F41.9 [place] [id number] [place] [phone] Jan, [place] [id number] [place] [phone] Jan, [place] [id number] [place] [phone] Jan, Type 2 diabetes mellitus with unspecified complications E11.8 and Other chronic pain G89.29 [place] [id number] [place] [phone] Jan, [place] [id number] [place] [phone] Jan, Dehydration E86.0 and Type 2 diabetes mellitus with unspecified complications E11.8 [place] [id number] [place] [phone] Jan, [place] [id number] [place] [id number] Dec, Anxiety F41.9 [place] [id number] [place] [address] Dec, Encounter to establish care Z76.89 ; Type 2 diabetes mellitus with unspecified complications E11.8 ; long-term 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 ; Dorsalgia, unspecified M54.9 ; Other chronic pain G89.29 ; Insomnia, unspecified type G47.00 ; Neuropathy G62.9 and Bilateral tinnitus H93.13 [place] [id number] [place] [phone] Dec, IMMUNIZATIONS No Known Immunizations SOCIAL HISTORY Never Assessed REASON FOR VISIT PALS IN -[place] PLAN OF CARE VITAL SIGNS MEDICATIONS Unknown [...]
--- OUTSIDE RECORDS SUMMARY | 2018-12-07 13:28 | XMS REPORT ---
Author Author SARAH GOLDMAN Organization [facility] Address [address] [place] [address] Care Team Providers Care Cigarette Paper Tester Name Role Phone SARAH GOLDMAN Unavailable PROBLEMS Type Condition ICD9-CM Code [id number]-ME Code Onset Dates Condition Status SNOMED Code Problem Type 2 diabetes mellitus with unspecified complications E11.8 Active 65814044 Problem Other chronic pain G89.29 Active 43423295 Problem Anxiety F41.9 Active 38291790 Problem Hypertriglyceridemia E78.1 Active 156388270 Problem group home 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 Active 503109184 Problem Primary insomnia F51.01 Active 0578569 Problem Periodontitis K05.30 Active 87453782 Problem Benign prostatic hyperplasia with lower urinary tract symptoms, unspecified morphology N40.1 Active 822398835 Problem Neuropathy G62.9 Active 969454108 Problem Hypoglycemia E16.2 Active 103662606 ALLERGIES No Information ENCOUNTERS Encounter Location Date Diagnosis [facility] [id number] [place] [phone] Nov, [facility] [id number] [place] [phone] Sep, Anemia, unspecified type D64.9 [facility] [address] [id number] [address] Sep, Anemia, unspecified type D64.9 [facility] [id number] [place] [phone] Aug, [facility] [id number] [place] [address] Aug, Cellulitis of left lower extremity L03.116 [facility] [id number] [place] [id number] 16 Aug, 2017 Cellulitis of left knee L03.116 [facility] [address] [place] [id number] 15 Aug, 2017 Cellulitis of left knee L03.116 [facility] [id number] [place] [phone] 06 Aug, 2017 Hypertriglyceridemia E78.1 [facility] [id number] [place] [id number] 02 Aug, 2017 [facility] [id number] [place] [phone] Jul, Hypertriglyceridemia E78.1 [facility] [id number] [place] [phone] Jul, Benign prostatic hyperplasia with lower urinary tract symptoms, unspecified morphology N40.1 [facility] [id number] [place] [phone] Jul, [facility] [facility] [id number] [place] [phone] Jun, [facility] [id number] [place] [address] Jun, Hypertriglyceridemia E78.1 [facility] [id number] [place] [address] Jun, Type 2 diabetes mellitus with unspecified complications E11.8 ; Encounter for immunization Z23 ; Neuropathy G62.9 ; Other chronic pain G89.29 and 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 [facility] [address] [place] [phone] Jun, [facility] [facility] [id number] [place] [address] May, [place] [address] [place] [address] Apr, Benign prostatic hyperplasia with lower urinary tract symptoms, unspecified morphology N40.1 [facility] [id number] [place] [phone] 10 Apr, 2017 [facility] [id number] [place] [address] 13 Mar, 2017 Other chronic pain G89.29 ; Anxiety F41.9 and Neuropathy G62.9 [facility] [id number] [place] [address] 09 Mar, 2017 Type 2 diabetes mellitus with unspecified complications E11.8 and Other chronic pain G89.29 [facility] [id number] [place] [phone] 29 Feb, 2017 Neuropathy G62.9 [facility] [id number] [place] [address] 15 Feb, 2017 Other chronic pain G89.29 and Anxiety F41.9 [facility] [id number] [place] [address] Jan, [facility] [id number] [place] [address] Jan, Other chronic pain G89.29 and Anxiety F41.9 [facility] [id number] [place] [address] Dec, [facility] [id number] [place] [address] Dec, Other chronic pain G89.29 and Anxiety F41.9 [facility] [id number] [place] [address] Dec, [facility] [id number] [place] [address] Dec, Primary insomnia F51.01 and Neuropathy G62.9 [facility] [id number] [place] [phone] Nov, Anxiety F41.9 and Other chronic pain G89.29 [facility] [id number] [place] [address] Nov, Type 2 diabetes mellitus with unspecified complications E11.8 ; Neuropathy G62.9 and Primary insomnia F51.01 [facility] [id number] [place] [address] October, Anxiety F41.9 and Other chronic pain G89.29 [facility] [id number] [place] [address] October, Other chronic pain G89.29 ; Type 2 diabetes mellitus with unspecified complications E11.8 and Hypoglycemia E16.2 [facility] [facility] [id number] [place] [address] Sep, Other chronic pain G89.29 and Anxiety F41.9 [facility] [facility] [id number] [place] [address] Sep, [facility] [facility] [id number] [place] [address] Aug, Other chronic pain G89.29 and Anxiety F41.9 [facility] [id number] [place] [address] Aug, Rash R21 and Pain of right hip joint M25.551 [facility] [id number] [place] [address] Aug, [place] [id number] [place] [address] Aug, [facility] [id number] [place] [address] Aug, Other chronic pain G89.29 and Anxiety F41.9 [facility] [id number] [place] [address] Aug, Type 2 diabetes mellitus with unspecified complications E11.8 [facility] [id number] [place] [address] Jul, [facility] [id number] [place] [address] Jul, Bronchitis J40 and Non-intractable vomiting, presence of nausea not specified, unspecified vomiting type R11.10 [facility] [id number] [place] [address] Jul, [facility] [address] [address] Jul, Other chronic pain G89.29 and Anxiety F41.9 [place] [address] [address] Jul, Type 2 diabetes mellitus with unspecified complications E11.8 [place] [address] [address] Jun, Type 2 diabetes mellitus with unspecified complications E11.8 [facility] [address] [id number] Jun, Dental caries K02.9 [facility] [id number] [place] [address] Jun, [facility] [address] [id number] Jun, Dental examination Z01.20 [facility] [id number] [place] [address] Jun, Right corneal abrasion, initial encounter S05.01XA [facility] [id number] [place] [address] Jun, [facility] [address] [address] Jun, Dental examination Z01.20 [facility] [id number] [place] [address] Jun, [facility] [address] [address] Jun, Perforated ear drum, right H72.91 ; Tooth pain K08.89 ; Type 2 diabetes mellitus with unspecified complications E11.8 and Other chronic pain G89.29 [place] [id number] [place] [address] Jun, [place] [id number] [place] [address] Jun, Other chronic pain G89.29 and Anxiety F41.9 [place] [facility] [id number] [place] [address] Jun, [place] [id number] [place] [address] May, Type 2 diabetes mellitus with unspecified complications E11.8 ; Benign prostatic hyperplasia with lower urinary tract symptoms, unspecified morphology N40.1 and Other chronic pain G89.29 [place] [id number] [place] [address] May, Other chronic pain G89.29 and Anxiety F41.9 [facility] [id number] [place] [address] Apr, Other chronic pain G89.29 and Anxiety F41.9 [facility] [id number] [place] [address] Mar, [place] [id number] [place] [address] Mar, Anxiety F41.9 and Other chronic pain G89.29 [facility] [id number] [place] [address] Mar, Other chronic pain G89.29 and group home 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 Z79.891 [place] [address] [place] [address] Mar, Other chronic pain G89.29 ; group home 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 Z79.891 and Anxiety F41.9 [facility] [address] [address] Feb, Bronchitis J40 [facility] [id number] [place] [address] Feb, Other chronic pain G89.29 [facility] [id number] [place] [phone] Feb, Type 2 diabetes mellitus with unspecified complications E11.8 [facility] [id number] [place] [address] Jan, Anxiety F41.9 [facility] [id number] [place] [address] Jan, [facility] [id number] [place] [address] Jan, [facility] [id number] [place] [address] Jan, Type 2 diabetes mellitus with unspecified complications E11.8 and Other chronic pain G89.29 [place] [id number] [place] [address] Jan, [facility] [id number] [place] [address] Jan, Dehydration E86.0 and Type 2 diabetes mellitus with unspecified complications E11.8 [facility] [id number] [place] [address] Jan, [facility] [address] [place] [address] Dec, Anxiety F41.9 [facility] [id number] [place] [address] Dec, Encounter to establish care Z76.89 ; Type 2 diabetes mellitus with unspecified complications E11.8 ; 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 ; Dorsalgia, unspecified M54.9 ; Other chronic pain G89.29 ; Insomnia, unspecified type G47.00 ; Neuropathy G62.9 and Bilateral tinnitus H93.13 [facility] [address] [facility] [id number] [address] Dec, IMMUNIZATIONS No Known Immunizations SOCIAL HISTORY Never Assessed REASON FOR VISIT Controlled Med Refill 03/07/2017 PLAN OF CARE VITAL SIGNS MEDICATIONS Medication Instructions Dosage Frequency Start Date End Date Duration Status Hydrocodone-Acetaminophen 10-325 MG Orally 3 times a day 1 tablet 8h 17 Feb, 2017 28 days Active Alprazolam 1 MG Orally Once a day 1 tablet at bedtime 24h 28 days Active RESULTS No Results PROCEDURES No Known procedures INSTRUCTIONS MEDICATIONS ADMINISTERED No Known Medications MEDICAL (GENERAL) HISTORY Type Description Date Medical History Type 2 diabetes mellitus without complications Medical History intermediate project 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
--- OUTSIDE RECORDS SUMMARY | 2018-12-07 13:29 | XMS REPORT ---
Author Author SARAH GOLDMAN Organization [facility] Address [address] [place] [address] Care Team Providers Care Health Therapist Name Role Phone SARAH GOLDMAN Unavailable PROBLEMS Type Condition ICD9-CM Code OHA33-ZV Code Onset Dates Condition Status SNOMED Code Problem Type 2 diabetes mellitus with unspecified complications E11.8 Active 93457820 Problem Other chronic pain G89.29 Active 43041069 Problem Anxiety F41.9 Active 48274160 Problem Hypertriglyceridemia E78.1 Active 050145726 Problem custodial 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 Active 559268093 Problem Primary insomnia F51.01 Active 3653064 Problem Periodontitis K05.30 Active 98711567 Problem Benign prostatic hyperplasia with lower urinary tract symptoms, unspecified morphology N40.1 Active 877308983 Problem Neuropathy G62.9 Active 966581894 Problem Hypoglycemia E16.2 Active 046560853 ALLERGIES No Information ENCOUNTERS Encounter Location Date Diagnosis [facility] [id number] [place] [address] Nov, [facility] [id number] [place] [address] Sep, [facility] [id number] [place] [address] Sep, Anemia, unspecified type D64.9 [facility] [address] [id number] [place] [address] Sep, Anemia, unspecified type D64.9 [facility] [id number] [place] [address] Aug, [facility] [id number] [place] [address] Aug, Cellulitis of left lower extremity L03.116 [facility] [id number] [place] [address] 16 Aug, 2017 Cellulitis of left knee L03.116 [facility] [id number] [place] [address] 15 Aug, 2017 Cellulitis of left knee L03.116 [facility] [id number] [place] [address] 06 Aug, 2017 Hypertriglyceridemia E78.1 [facility] [id number] [place] [address] 02 Aug, 2017 [facility] [id number] [place] [address] Jul, Hypertriglyceridemia E78.1 [place] [id number] [place] [address] 08 Jul, 2017 Benign prostatic hyperplasia with lower urinary tract symptoms, unspecified morphology N40.1 [facility] [id number] [place] [address] 02 Jul, 2017 [place] [id number] [place] [address] Jun, [place] [id number] [place] [address] Jun, Hypertriglyceridemia E78.1 [place] [id number] [place] [address] Jun, Type 2 diabetes mellitus with unspecified complications E11.8 ; Encounter for immunization Z23 ; Neuropathy G62.9 ; Other chronic pain G89.29 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 [facility] [id number] [place] [address] Jun, [facility] [id number] [place] [address] May, [facility] [id number] [place] [address] Apr, Benign prostatic hyperplasia with lower urinary tract symptoms, unspecified morphology N40.1 [facility] [address] [address] 10 Apr, 2017 [facility] [address] [address] 13 Mar, 2017 Other chronic pain G89.29 ; Anxiety F41.9 and Neuropathy G62.9 [facility] [address] [address] 09 Mar, 2017 Type 2 diabetes mellitus with unspecified complications E11.8 and Other chronic pain G89.29 [place] [address] [address] 29 Feb, 2017 Neuropathy G62.9 [place] [address] [address] 15 Feb, 2017 Other chronic pain G89.29 and Anxiety F41.9 [facility] [address] [address] Jan, [facility] [address] [address] Jan, Other chronic pain G89.29 and Anxiety F41.9 [place] [id number] [place] [address] Dec, [facility] [address] [address] Dec, Other chronic pain G89.29 and Anxiety F41.9 [facility] [address] [address] Dec, [facility] [address] [address] Dec, Primary insomnia F51.01 and Neuropathy G62.9 [facility] [address] [place] [address] Nov, Anxiety F41.9 and Other chronic pain G89.29 [place] [id number] [place] [address] Nov, Type 2 diabetes mellitus with unspecified complications E11.8 ; Neuropathy G62.9 and Primary insomnia F51.01 [place] [id number] [place] [address] October, Anxiety F41.9 and Other chronic pain G89.29 [place] [id number] [place] [address] October, Other chronic pain G89.29 ; Type 2 diabetes mellitus with unspecified complications E11.8 and Hypoglycemia E16.2 [place] [id number] [place] [address] Sep, Other chronic pain G89.29 and Anxiety F41.9 [place] [id number] [place] [address] Sep, [place] [id number] [place] [address] Aug, Other chronic pain G89.29 and Anxiety F41.9 [place] [id number] [place] [address] Aug, Rash R21 and Pain of right hip joint M25.551 [place] [id number] [place] [address] Aug, [facility] [id number] [place] [address] Aug, [place] [id number] [place] [address] Aug, Other chronic pain G89.29 and Anxiety F41.9 [facility] [id number] [place] [address] Aug, Type 2 diabetes mellitus with unspecified complications E11.8 [facility] [id number] [place] [address] Jul, [facility] [address] [address] Jul, Bronchitis J40 and Non-intractable vomiting, presence of nausea not specified, unspecified vomiting type R11.10 [facility] [address] [address] Jul, [place] [address] [address] Jul, Other chronic pain G89.29 and Anxiety F41.9 [place] [address] [address] Jul, Type 2 diabetes mellitus with unspecified complications E11.8 [place] [address] [address] Jun, Type 2 diabetes mellitus with unspecified complications E11.8 [facility] [address] [id number] Jun, Dental caries K02.9 [facility] [address] [address] Jun, [facility] [address] [id number] Jun, Dental examination Z01.20 [facility] [id number] [place] [address] Jun, Right corneal abrasion, initial encounter S05.01XA [facility] [address] [address] Jun, [facility] [id number] [place] [address] Jun, Dental examination Z01.20 [facility] [address] [address] Jun, [facility] [id number] [place] [address] Jun, Perforated ear drum, right H72.91 ; Tooth pain K08.89 ; Type 2 diabetes mellitus with unspecified complications E11.8 and Other chronic pain G89.29 [place] [id number] [place] [address] Jun, [place] [id number] [place] [address] Jun, Other chronic pain G89.29 and Anxiety F41.9 [place] [id number] [place] [address] Jun, [place] [id number] [place] [address] May, Type 2 diabetes mellitus with unspecified complications E11.8 ; Benign prostatic hyperplasia with lower urinary tract symptoms, unspecified morphology N40.1 and Other chronic pain G89.29 [place] [id number] [place] [address] May, Other chronic pain G89.29 and Anxiety F41.9 [place] [id number] [place] [address] Apr, Other chronic pain G89.29 and Anxiety F41.9 [place] [id number] [place] [address] Mar, [place] [id number] [place] [address] 17 Mar, 2016 Anxiety F41.9 and Other chronic pain G89.29 [place] [id number] [place] [address] Mar, Other chronic pain G89.29 and custodial 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 Z79.891 [place] [id number] [place] [address] Mar, Other chronic pain G89.29 ; 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 and Anxiety F41.9 [facility] [id number] [place] [address] 30 Feb, 2016 Bronchitis J40 [facility] [id number] [place] [address] 19 Feb, 2016 Other chronic pain G89.29 [facility] [address] [address] 15 Feb, 2016 Type 2 diabetes mellitus with unspecified complications E11.8 [place] [address] [address] Jan, Anxiety F41.9 [facility] [id number] [place] [address] Jan, [facility] [address] [address] Jan, [facility] [id number] [place] [address] Jan, Type 2 diabetes mellitus with unspecified complications E11.8 and Other chronic pain G89.29 [facility] [id number] [place] [address] Jan, [facility] [id number] [place] [address] Jan, Dehydration E86.0 and Type 2 diabetes mellitus with unspecified complications E11.8 [facility] [id number] [place] [address] Jan, [facility] [id number] [place] [address] Dec, Anxiety F41.9 [facility] [id number] [place] [address] Dec, Encounter to establish care Z76.89 ; Type 2 diabetes mellitus with unspecified complications E11.8 ; 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 ; Dorsalgia, unspecified M54.9 ; Other chronic pain G89.29 ; Insomnia, unspecified type G47.00 ; Neuropathy G62.9 and Bilateral tinnitus H93.13 [facility] [address] [facility] [id number] [place] [address] Dec, IMMUNIZATIONS No Known Immunizations SOCIAL HISTORY Never Assessed REASON FOR VISIT Controlled Med Refill 04/04/2017 PLAN OF CARE VITAL SIGNS MEDICATIONS Medication Instructions Dosage Frequency Start Date End Date Duration Status Alprazolam 1 MG Orally Once a day 1 tablet at bedtime 24h 28 days Active Hydrocodone-Acetaminophen 10-325 MG Orally 3 times a day 1 tablet 8h 15 Mar, 2017 28 days Active RESULTS No Results PROCEDURES No Known procedures INSTRUCTIONS MEDICATIONS ADMINISTERED No Known Medications MEDICAL (GENERAL) HISTORY Type Description Date Medical History Type 2 diabetes mellitus without complications Medical History 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
[2018-12-07 13:30] LABS: HEMOGLOBIN 12.5 G/DL (13.3-17.7); MEAN PLATELET VOLUME 8.8 FL (7.4-10.4); WHITE BLOOD COUNT 13.3 10^3/uL (4.3-11.0)
[2018-12-07] MEDS ORDERED: fentaNYL INJECTION 100 MCG/2 ML AMP IVP PRN ×2 (13:30→14:15)
--- OUTSIDE RECORDS SUMMARY | 2018-12-07 13:30 | XMS REPORT | Continuity of Care Document ---
Author Organization Unknown Address Unknown Allergies Active Description Code Type Severity Reaction Onset Reported/Identified Relationship to Patient Clinical Status Yes No Known Drug Allergies [id number] Drug Allergy Unknown N/A 08/25/2010 Medications There [...] DPM Ot E881.0 FALL FROM LADDER 07/24/2013 MINNIE SALMERON MD Ot 729.5 PAIN IN LIMB 07/24/2013 MINNIE SALMERON MD Ot 825.20 FX FOOT BONE NOS-CLOSED 07/24/2013 MINNIE SALMERON MD Ot E000.8 OTHER EXTERNAL CAUSE STATUS 07/24/2013 MINNIE SALMERON MD Ot E888.9 FALL NOS 08/05/2013 MCKAYLAHO DPMarcela ISIAH Hallie Ot 250.00 DIAB [place] WO COMPL, TYPE II OR UNSPEC TY 08/05/2013 MCKAYLAHO DPISIAH Medrano Ot 305.1 TOBACCO USE DISORDER 08/05/2013 BLADAVIDHO DPMISIAH Ot 496 CHR AIRWAY OBSTRUCT NEC 08/05/2013 ERINCHO DPMISIAH Ot 825.20 FX FOOT BONE NOS-CLOSED 08/05/2013 ERINCHO DPMarcela ISIAH Hallie Ot E881.0 FALL FROM LADDER 08/05/2013 MCKAYLAHO DPISIAH Medrano Ot V58.67 LONG-TERM (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 OF INSULIN 10/12/2013 RAEANN MOMIN APRN Ot 729.5 PAIN IN LIMB 02/28/2014 SUSIE COMBS, GALE S Ot 490 BRONCHITIS NOS 03/14/2015 Ot 413.9 [...] TERESO COMBS, ADRIENNE Lowe Ot 786.39 03/14/2015 TERESO COMBS, ADRIENNE Lowe Ot V01.89 03/14/2015 MCKAYLAHO DPISIAH Medrano Ot 825.20 03/14/2015 MCKAYLAHO ISIAH ESCOBEDO Ot E000.8 03/14/2015 BLADAVIDHO DPMISIAH Ot E888.9 03/14/2015 BLADAVIDHO DPM, ISIAH Sterling Ot V72.84 03/14/2015 SUSIE COMBS, GALE Rowe Ot 786.05 03/14/2015 SUSIE COMBS, GALE Rowe Ot 786.09 03/14/2015 SUSIE COMBS, GALE Rowe Ot 786.2 05/07/2015 TERESO COMBS, ADRIENNE Lowe Ot M54.2 05/07/2015 TERESO COMBS, ADRIENNE J Ot M54.6 05/12/2015 TERESO COMBS, ADRIENNE J Ot M54.2 05/12/2015 TERESO COMBS, ADRIENNE J Ot M54.6 05/14/2015 TERESO COMBS, ADRIENNE J Ot M54.2 05/14/2015 TERESO COMBS, ADRIENNE J Ot M54.6 05/20/2015 TERESO COMBS, ADRIENNE J Ot M54.2 05/20/2015 TERESO COMBS, ADRIENNE Lowe [...] FA 09/30/2015 MINNIE SALMERON MD Ot 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 MARKETING MANAGER (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 OF INSULIN 01/04/2016 ANA DOWD DOA Alondra Ot E11.65 TYPE 2 DIABETES MELLITUS WITH HYPERGLYCE 01/04/2016 ARLIN DOWD DO Ot F12.10 CANNABIS ABUSE, UNCOMPLICATED 01/04/2016 ARLIN DOWD DO Ot F17.210 NICOTINE DEPENDENCE, CIGARETTES, UNCOMPL 01/04/2016 ANA DOWD DOA K Ot F19.10 OTHER PSYCHOACTIVE SUBSTANCE ABUSE, UNCO 01/04/2016 ANA DOWD DOA Alondra Ot K02.9 DENTAL CARIES, UNSPECIFIED 01/04/2016 ARLIN DOWD DO Ot R20.2 PARESTHESIA OF SKIN 01/04/2016 ARLIN DOWD DO Ot 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 MARKETING MANAGER (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 OF INSULIN 01/06/2016 ARLIN DOWD DO Ot E11.65 TYPE 2 DIABETES MELLITUS WITH HYPERGLYCE 01/06/2016 ARLIN DOWD DO Ot F12.10 CANNABIS ABUSE, UNCOMPLICATED 01/06/2016 ARLIN DOWD DO Ot F17.210 NICOTINE DEPENDENCE, CIGARETTES, UNCOMPL 01/06/2016 ARLIN DOWD DO Ot F19.10 OTHER PSYCHOACTIVE SUBSTANCE ABUSE, UNCO 01/06/2016 ARLIN DOWD DO Ot K02.9 DENTAL CARIES, UNSPECIFIED 01/06/2016 ARLIN DOWD DO Ot R20.2 PARESTHESIA OF SKIN 01/06/2016 ARILN DOWD DO Ot 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 MARKETING MANAGER (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 OF INSULIN 2016 Ot 250.00 DIAB [place] WO COMPL, TYPE II OR UNSPEC TY 2016 Ot 305.1 TOBACCO USE DISORDER 2016 Ot 719.49 JOINT PAIN-MULT JTS 2016 Ot 780.2 SYNCOPE AND COLLAPSE 2016 Ot 785.0 TACHYCARDIA NOS 2016 Ot V58.66 LONG-TERM (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 OF ASPIRIN 2016 Ot V58.69 OTH MED,LT,CURRENT USE 2016 Ot 722.10 LUMBAR DISC DISPLACEMENT 2016 Ot 722.52 LUMB/LUMBOSAC DISC DEGEN 2016 Ot 780.2 SYNCOPE AND COLLAPSE 2016 Ot 781.2 ABNORMALITY OF GAIT 2016 Ot 550.90 UNILAT INGUINAL HERNIA 2016 Ot V72.63 PRE-PROCEDURAL LABORATORY EXAMINATION 2016 Ot V74.8 SCREEN-BACTERIAL DIS NEC 2016 Ot 250.00 DIAB [place] WO COMPL, TYPE II OR UNSPEC TY 2016 Ot 550.90 UNILAT INGUINAL HERNIA 2016 Ot V58.67 LONG-TERM (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 OF INSULIN 2016 TERESO COMBS, ADRIENNE Lowe Ot 786.39 OTHER HEMOPTYSIS 2016 ADRIENNE RIDER MD Ot V01.89 OTHER COMMUNICABLE DISEASES 2016 JOAO ESCOBEDO, ISIAH Sterling Ot 825.20 FX FOOT BONE NOS-CLOSED 2016 JOAO DPISIAH Medrano Ot E000.8 OTHER EXTERNAL CAUSE STATUS 2016 JOAO DPISIAH Medrano Ot E888.9 FALL NOS 2016 JOAO CJISIAH Medrano Ot V72.84 EXAM PRE-OPERATIVE NOS 2016 [...] 04/14/2016 NOEMÍ DO, ARLIN K Ot Z79.4 CARE HOME (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 OF INSULIN 05/06/2016 NOEMÍ DO, [...] 05/06/2016 NOEMÍ DO, ARLIN K Ot 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 MARKETING MANAGER (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 OF INSULIN 09/06/2017 TERESO COMBS, ADRIENNE Lowe Ot 786.39 OTHER HEMOPTYSIS 09/06/2017 TERESO COMBS, ADRIENNE Lowe Ot V01.89 OTHER COMMUNICABLE DISEASES 09/06/2017 BLANCHO DPM, ISIAH Sterling Ot 825.20 FX FOOT BONE NOS-CLOSED 09/06/2017 JOAO DPM, ISIAH Sterling Ot E000.8 OTHER EXTERNAL CAUSE STATUS 09/06/2017 BLANCHO DPM, ISIAH Sterling Ot E888.9 FALL NOS 09/06/2017 BLADAVIDHO DPM, ISIAH Sterling Ot V72.84 EXAM PRE-OPERATIVE NOS 09/06/2017 SUSIE COMBS, GALE Rowe Ot 786.05 SHORTNESS OF BREATH 09/06/2017 SUSIE COMBS, GALE Rowe Ot 786.09 RESPIRATORY ABNORM NEC 09/06/2017 SUSIE COMBS, GALE Rowe Ot 786.2 COUGH 09/06/2017 TERESO COMBS, ADRIENNE Lowe Ot M54.2 CERVICALGIA 09/06/2017 TERESO COMBS, ADRIENNE Lowe Ot M54.6 PAIN IN THORACIC SPINE 09/06/2017 PRANAY WADE MD Ot A41.9 SEPSIS, UNSPECIFIED ORGANISM 09/06/2017 PRANAY WADE MD Ot D72.829 ELEVATED WHITE BLOOD CELL COUNT, UNSPECI 09/06/2017 PRANAY WADE MD Ot E11.65 TYPE 2 DIABETES MELLITUS WITH HYPERGLYCE 09/06/2017 PRANAY WADE MD Ot E78.5 HYPERLIPIDEMIA, UNSPECIFIED 09/06/2017 PRANAY WADE MD Ot F17.210 NICOTINE DEPENDENCE, CIGARETTES, UNCOMPL 09/06/2017 PRANAY WADE MD Ot F41.9 ANXIETY DISORDER, UNSPECIFIED 09/06/2017 PRANAY WADE MD Ot G89.29 OTHER CHRONIC PAIN 09/06/2017 PRANAY WADE MD Ot J44.9 CHRONIC OBSTRUCTIVE PULMONARY DISEASE, U 09/06/2017 PRANAY WADE MD Ot L03.116 CELLULITIS OF LEFT LOWER LIMB 09/06/2017 PRANAY WADE MD Ot M25.462 EFFUSION, LEFT KNEE 09/06/2017 PRANAY WADE MD Ot M54.5 LOW BACK PAIN 09/06/2017 PRANAY WADE MD Ot M70.42 PREPATELLAR BURSITIS, LEFT KNEE 09/06/2017 PRANAY WADE MD Ot R03.0 ELEVATED BLOOD-PRESSURE READING, W/O NARCISA 09/06/2017 PRANAY WADE MD, Ot S81.032A PUNCTURE WOUND WITHOUT FOREIGN BODY, LEF 09/06/2017 PRANAY WADE MD, Ot 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 MARKETING MANAGER (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 OF INSULIN 09/06/2017 PRANAY WADE MD, Ot Z86.010 PERSONAL HISTORY OF COLONIC POLYPS Procedures Code Description Performed By Performed On 81.17 OTHER FUSION OF FOOT 08/03/2013 [id number] DRAINAGE OF LEFT KNEE JOINT, PERCUTANEOU 09/03/2017 [id number] DRAINAGE OF L KNEE BURSA/LIG WITH DRAIN 09/04/2017 [id number] DRAINAGE OF LEFT KNEE JOINT, PERCUTANEOU 09/04/2017 Results Test Result Range LIPID PANEL - 06/29/17 09:23 CHOLESTEROL, TOTAL 286 mg/dL <200 HDL CHOLESTEROL 23 mg/dL >40 TRIGLYCERIDES 1184 mg/dL <150 LDL-CHOLESTEROL mg/dL (calc) NRG CHOL/HDLC RATIO 12.4 (calc) <5.0 NON HDL CHOLESTEROL 263 mg/dL (calc) <130 [facility] - 06/29/17 09:23 GLUCOSE 399 mg/dL 65-99 UREA NITROGEN (BUN) 19 mg/dL 7-25 CREATININE 1.07 mg/dL 0.70-1.33 eGFR NON-AFR. TOGOLESE 78 mL/min/1.73m2 > OR=60 eGFR 91 mL/min/1.73m2 > OR=60 BUN/CREATININE RATIO NOT APPLICABLE (calc) 6-22 SODIUM 132 mmol/L 135-146 POTASSIUM 4.1 mmol/L 3.5-5.3 CHLORIDE 98 mmol/L 98-110 CARBON DIOXIDE 23 mmol/L 20-31 CALCIUM 9.1 mg/dL 8.6-10.3 PROTEIN, TOTAL 7.8 g/dL 6.1-8.1 ALBUMIN 4.2 g/dL 3.6-5.1 GLOBULIN 3.6 g/dL (calc) 1.9-3.7 ALBUMIN/GLOBULIN RATIO 1.2 (calc) 1.0-2.5 BILIRUBIN, TOTAL 0.4 mg/dL 0.2-1.2 ALKALINE PHOSPHATASE 112 U/L 40-115 AST 35 U/L 10-35 ALT 56 U/L 9-46 [facility] - 08/05/17 16:26 GLUCOSE 297 mg/dL 65-99 UREA NITROGEN (BUN) 16 mg/dL 7-25 CREATININE 1.25 mg/dL 0.70-1.33 eGFR NON-AFR. TOGOLESE 65 mL/min/1.73m2 > OR=60 eGFR 75 mL/min/1.73m2 > OR=60 BUN/CREATININE RATIO NOT APPLICABLE (calc) 6-22 SODIUM 134 mmol/L 135-146 POTASSIUM 3.6 mmol/L 3.5-5.3 CHLORIDE 102 mmol/L 98-110 CARBON DIOXIDE 23 mmol/L 20-31 CALCIUM 9.1 mg/dL 8.6-10.3 PROTEIN, TOTAL 7.6 g/dL 6.1-8.1 ALBUMIN 4.6 g/dL 3.6-5.1 GLOBULIN 3.0 g/dL (calc) 1.9-3.7 ALBUMIN/GLOBULIN RATIO 1.5 (calc) 1.0-2.5 BILIRUBIN, TOTAL 0.4 mg/dL 0.2-1.2 ALKALINE PHOSPHATASE 118 U/L 40-115 AST 32 U/L 10-35 ALT 56 U/L 9-46 Complete urinalysis with reflex to culture - 09/02/17 19:20 Urine color determination YELLOW NRG Urine clarity determination CLEAR NRG Urine pH measurement by test strip 6.5 5-9 Specific gravity of urine by test strip 1.010 1.016-1.022 Urine protein assay by test strip, semi-quantitative [...] sediment leukocyte count by microscopy (number/high power field) RARE NRG Bacteria detection in urine sediment [...] Automated erythrocyte mean corpuscular hemoglobin concentration measurement (mass/volume) 35 g/dL 32-36 Automated erythrocyte distribution width ratio 12.6 % 10.0- 14.5 Automated blood platelet count (count/volume) 226 10*3/uL [...] Blood monocytes automated count (number/volume) 1.5 10*3 0.0- 1.0 Automated eosinophil count 0.1 10*3/uL 0.0-0.3 Automated [...] Blood lactic acid measurement (moles/volume) 1.75 mmol/L 0.50- 2.00 Comprehensive metabolic panel - 09/02/17 19:30 Serum [...] Serum or plasma aspartate aminotransferase measurement (enzymatic activity/volume) 17 U/L 5-34 Serum or plasma alanine aminotransferase measurement (enzymatic activity/volume) 22 U/L 0-55 Serum or plasma protein [...] Manual blood metamyelocytes/100 leukocytes 1 % NRG Bacterial blood culture - 09/02/17 19:30 Bacterial blood culture NG NRG Bacterial blood culture - 09/02/17 19:54 Bacterial blood culture NG NRG Complete blood count (CBC) with automated white blood cell (WBC) differential - 09/03/17 04:40 Blood leukocytes automated count (number/volume) 14.9 10*3/uL 4.3-11.0 Blood erythrocytes automated count (number/volume) 3.60 10*6/uL 4.35-5.85 Venous blood hemoglobin measurement (mass/volume) 11.8 g/dL 13.3-17.7 Blood hematocrit (volume fraction) 34 % 40-54 Automated erythrocyte mean corpuscular volume 94 [foz_us] 80-99 Automated erythrocyte mean corpuscular hemoglobin (mass per erythrocyte) 33 pg 25-34 Automated erythrocyte mean corpuscular hemoglobin concentration measurement (mass/volume) 35 g/dL 32-36 Automated erythrocyte distribution width ratio 12.5 % 10.0- 14.5 Automated blood platelet count (count/volume) 218 10*3/uL 130-400 Automated blood platelet mean volume measurement 8.6 [foz_us] 7.4-10.4 Automated blood neutrophils/100 leukocytes 78 % 42-75 Automated blood lymphocytes/100 leukocytes 13 % 12-44 Blood monocytes/100 leukocytes 8 % 0-12 Automated blood eosinophils/100 leukocytes 1 % 0-10 Automated blood basophils/100 leukocytes 0 % 0-10 Blood neutrophils automated count (number/volume) 11.6 10*3 1.8-7.8 Blood lymphocytes automated count (number/volume) 1.9 10*3 1.0-4.0 Blood monocytes automated count (number/volume) 1.2 10*3 0.0- 1.0 Automated eosinophil count 0.1 10*3/uL 0.0-0.3 Automated blood basophil count (count/volume) 0.0 10*3/uL 0.0-0.1 Comprehensive metabolic panel - 09/03/17 04:40 Serum or plasma sodium measurement (moles/volume) 136 mmol/L 135-145 Serum or plasma potassium measurement (moles/volume) 4.0 mmol/L 3.6-5.0 Serum or plasma chloride measurement (moles/volume) 111 mmol/L 98-107 Carbon dioxide 18 mmol/L 21-32 Serum or plasma anion gap determination (moles/volume) 7 mmol/L 5-14 Serum or plasma urea nitrogen measurement (mass/volume) 10 mg/dL 7-18 Serum or plasma creatinine measurement (mass/volume) 0.78 mg/dL 0.60-1.30 Serum or plasma urea nitrogen/creatinine mass ratio 13 NRG Serum or plasma creatinine measurement with calculation of estimated glomerular filtration rate > NRG Serum or plasma glucose measurement (mass/volume) 135 mg/dL 70-105 Serum or plasma calcium measurement (mass/volume) 8.1 mg/dL 8.5-10.1 Serum or plasma total bilirubin measurement (mass/volume) 0.2 mg/dL 0.1-1.0 Serum or plasma alkaline phosphatase measurement (enzymatic activity/volume) 94 U/L 40-136 Serum or plasma aspartate aminotransferase measurement (enzymatic activity/volume) 17 U/L 5-34 Serum or plasma alanine aminotransferase measurement (enzymatic activity/volume) 14 U/L 0-55 Serum or plasma protein measurement (mass/volume) 6.2 g/dL 6.4-8.2 Serum or plasma albumin measurement (mass/volume) 3.1 g/dL 3.2-4.5 Serum or plasma C reactive protein measurement (mass/volume) - 09/03/17 04:40 Serum or plasma C reactive protein measurement (mass/volume) 26.35 mg/dL 0.00-0.50 Body fluid cell count - 09/03/17 09:58 Specimen source identification of body fluid SYNOVIAL NRG Evaluation of color of body fluid Y NRG Determination of appearance of body fluid MKD CLDY NRG Body fluid leukocytes count (number/volume) 1200 /uL NRG Body fluid erythrocytes count (number/volume) 2900 /uL NRG Manual body fluid polymorphonuclear cells/100 leukocytes 97 % NRG Manual body fluid mononuclear cells/100 leukocytes 3 % NRG Manual body fluid lymphocytes/100 leukocytes 0 % NRG Other cells/100 leukocytes in body fluid by manual count 0 % NRG * Body fluid crystals type by light microscopy - 09/03/17 09:58 * Body fluid crystals type by light microscopy NOT SEEN NRG Gram stain microscopy - 09/03/17 09:58 GRAM STAIN RESULT NO BACTERIA OBSERVED NRG Bacterial body fluid culture - 09/03/17 09:58 Bacterial body fluid culture NG NRG Capillary blood glucose measurement by glucometer (mass/volume) - 09/03/17 10:37 Capillary blood glucose measurement by glucometer (mass/volume) 120 mg/dL 70-110 Capillary blood glucose measurement by glucometer (mass/volume) - 09/03/17 15:45 Capillary blood glucose measurement by glucometer (mass/volume) 98 mg/dL 70-110 Capillary blood glucose measurement by glucometer (mass/volume) - 09/03/17 20:33 Capillary blood glucose measurement by glucometer (mass/volume) 166 mg/dL 70-110 Capillary blood glucose measurement by glucometer (mass/volume) - 09/04/17 06:39 Capillary blood glucose measurement by glucometer (mass/volume) 101 mg/dL 70-110 Automated blood complete blood count (hemogram) panel - 09/04/17 08:04 Blood leukocytes automated count (number/volume) 12.1 10*3/uL 4.3-11.0 Blood erythrocytes automated count (number/volume) 3.80 10*6/uL 4.35-5.85 Venous blood hemoglobin measurement (mass/volume) 12.3 g/dL 13.3-17.7 Blood hematocrit (volume fraction) 34 % 40-54 Automated erythrocyte mean corpuscular volume 89 [foz_us] 80-99 Automated erythrocyte mean corpuscular hemoglobin (mass per erythrocyte) 32 pg 25-34 Automated erythrocyte mean corpuscular hemoglobin concentration measurement (mass/volume) 36 g/dL 32-36 Automated erythrocyte distribution width ratio 12.3 % 10.0- 14.5 Automated blood platelet count (count/volume) 239 10*3/uL 130-400 Automated blood platelet mean volume measurement 8.1 [foz_us] 7.4-10.4 Whole blood basic metabolic panel - 09/04/17 08:04 Serum or plasma sodium measurement (moles/volume) 136 mmol/L 135-145 Serum or plasma potassium measurement (moles/volume) 3.1 mmol/L 3.6-5.0 Serum or plasma chloride measurement (moles/volume) 105 mmol/L 98-107 Carbon dioxide 22 mmol/L 21-32 Serum or plasma anion gap determination (moles/volume) 9 mmol/L 5-14 Serum or plasma urea nitrogen measurement (mass/volume) 7 mg/dL 7-18 Serum or plasma creatinine measurement (mass/volume) 0.62 mg/dL 0.60-1.30 Serum or plasma urea nitrogen/creatinine mass ratio 11 NRG Serum or plasma creatinine measurement with calculation of estimated glomerular filtration rate > NRG Serum or plasma glucose measurement (mass/volume) 97 mg/dL 70-105 Serum or plasma calcium measurement (mass/volume) 8.4 mg/dL 8.5-10.1 Vancomycin trough - 09/04/17 08:04 Vancomycin trough 5.8 ug/mL 10.0-20.0 Capillary blood glucose measurement by glucometer (mass/volume) - 09/04/17 10:30 Capillary blood glucose measurement by glucometer (mass/volume) 91 mg/dL 70-110 Bacteria identification in isolate by anaerobe culture - 09/04/17 10:55 Bacteria identification in isolate by anaerobe culture NG NRG Gram stain microscopy - 09/04/17 10:55 GRAM STAIN RESULT MODERATE # WBC'S, NO BACTERIA OBSERVED NRG Bacteria identification in wound by culture - 09/04/17 10:55 Bacteria identification in wound by culture NG NRG Bacteria identification in isolate by anaerobe culture - 09/04/17 10:57 Bacteria identification in isolate by anaerobe culture NOANA NRG Gram stain microscopy - 09/04/17 10:57 Gram stain microscopy Few gram positive cocci resembling Staph NRG Bacteria identification in wound by culture - 09/04/17 10:57 Bacteria identification in wound by culture [id number] [facility] FREE TEXT EXTERNAL SENSITIVITY REPORTED 09/05 15:45 NRG QUANTITY OF GROWTH Abundant Growth NRG MRSA AGAR Screening test for MRSA is NEGATIVE (Final to follow) [facility] Bacterial susceptibility panel - 09/04/17 10:57 Oxacillin susceptibility test by minimum inhibitory concentration 0.5 NRG Gentamicin susceptibility test by minimum inhibitory concentration <= NRG Clindamycin susceptibility test by minimum inhibitory concentration R NRG Erythromycin susceptibility test by minimum inhibitory concentration >= NRG Trimethoprim/sulfamethoxazole susceptibility test by minimum inhibitoryconcentration S NRG Vancomycin susceptibility test by minimum inhibitory concentration <= NRG Levofloxacin susceptibility test by minimum inhibitory concentration <= NRG Rifampin susceptibility test by minimum inhibitory concentration <= NRG Tetracycline susceptibility test by minimum inhibitory concentration <= NRG Capillary blood glucose measurement by glucometer (mass/volume) - 09/04/17 15:59 Capillary blood glucose measurement by glucometer (mass/volume) 241 mg/dL 70-110 Capillary blood glucose measurement by glucometer (mass/volume) - 09/04/17 20:44 Capillary blood glucose measurement by glucometer (mass/volume) 241 mg/dL 70-110 Complete blood count (CBC) with automated white blood cell (WBC) differential - 09/05/17 05:35 Blood leukocytes automated count (number/volume) 11.1 10*3/uL 4.3-11.0 Blood erythrocytes automated count (number/volume) 3.34 10*6/uL 4.35-5.85 Venous blood hemoglobin measurement (mass/volume) 10.9 g/dL 13.3-17.7 Blood hematocrit (volume fraction) 31 % 40-54 Automated erythrocyte mean corpuscular volume 92 [foz_us] 80-99 Automated erythrocyte mean corpuscular hemoglobin (mass per erythrocyte) 33 pg 25-34 Automated erythrocyte mean corpuscular hemoglobin concentration measurement (mass/volume) 35 g/dL 32-36 Automated erythrocyte distribution width ratio 12.6 % 10.0- 14.5 Automated blood platelet count (count/volume) 235 10*3/uL 130-400 Automated blood platelet mean volume measurement 8.2 [foz_us] 7.4-10.4 Automated blood neutrophils/100 leukocytes 60 % 42-75 Automated blood lymphocytes/100 leukocytes 25 % 12-44 Blood monocytes/100 leukocytes 13 % 0-12 Automated blood eosinophils/100 leukocytes 1 % 0-10 Automated blood basophils/100 leukocytes 0 % 0-10 Blood neutrophils automated count (number/volume) 6.7 10*3 1.8-7.8 Blood lymphocytes automated count (number/volume) 2.8 10*3 1.0-4.0 Blood monocytes automated count (number/volume) 1.5 10*3 0.0- 1.0 Automated eosinophil count 0.2 10*3/uL 0.0-0.3 Automated blood basophil count (count/volume) 0.0 10*3/uL 0.0-0.1 Whole blood basic metabolic panel - 09/05/17 05:35 Serum or plasma sodium measurement (moles/volume) 138 mmol/L 135-145 Serum or plasma potassium measurement (moles/volume) 3.4 mmol/L 3.6-5.0 Serum or plasma chloride measurement (moles/volume) 109 mmol/L 98-107 Carbon dioxide 24 mmol/L 21-32 Serum or plasma anion gap determination (moles/volume) 5 mmol/L 5-14 Serum or plasma urea nitrogen measurement (mass/volume) 9 mg/dL 7-18 Serum or plasma creatinine measurement (mass/volume) 0.71 mg/dL 0.60-1.30 Serum or plasma urea nitrogen/creatinine mass ratio 13 NRG Serum or plasma creatinine measurement with calculation of estimated glomerular filtration rate > NRG Serum or plasma glucose measurement (mass/volume) 64 mg/dL 70-105 Serum or plasma calcium measurement (mass/volume) 7.8 mg/dL 8.5-10.1 Capillary blood glucose measurement by glucometer (mass/volume) - 09/05/17 05:39 Capillary blood glucose measurement by glucometer (mass/volume) 60 mg/dL 70-110 Capillary blood glucose measurement by glucometer (mass/volume) - 09/05/17 06:14 Capillary blood glucose measurement by glucometer (mass/volume) 103 mg/dL 70-110 Vancomycin trough - 09/05/17 08:21 Vancomycin trough 14.9 ug/mL 10.0-20.0 Capillary blood glucose measurement by glucometer (mass/volume) - 09/05/17 10:53 Capillary blood glucose measurement by glucometer (mass/volume) 205 mg/dL 70-110 Capillary blood glucose measurement by glucometer (mass/volume) - 09/05/17 16:43 Capillary blood glucose measurement by glucometer (mass/volume) 180 mg/dL 70-110 Capillary blood glucose measurement by glucometer (mass/volume) - 09/05/17 20:20 Capillary blood glucose measurement by glucometer (mass/volume) 244 mg/dL 70-110 Complete blood count (CBC) with automated white blood cell (WBC) differential - 09/06/17 05:10 Blood leukocytes automated count (number/volume) 8.8 10*3/uL 4.3-11.0 Blood erythrocytes automated count (number/volume) 3.45 10*6/uL 4.35-5.85 Venous blood hemoglobin measurement (mass/volume) 11.0 g/dL 13.3-17.7 Blood hematocrit (volume fraction) 33 % 40-54 Automated erythrocyte mean corpuscular volume 94 [foz_us] 80-99 Automated erythrocyte mean corpuscular hemoglobin (mass per erythrocyte) 32 pg 25-34 Automated erythrocyte mean corpuscular hemoglobin concentration measurement (mass/volume) 34 g/dL 32-36 Automated erythrocyte distribution width ratio 12.5 % 10.0- 14.5 Automated blood platelet count (count/volume) 242 10*3/uL 130-400 Automated blood platelet mean volume measurement 8.3 [foz_us] 7.4-10.4 Automated blood neutrophils/100 leukocytes 54 % 42-75 Automated blood lymphocytes/100 leukocytes 31 % 12-44 Blood monocytes/100 leukocytes 12 % 0-12 Automated blood eosinophils/100 leukocytes 2 % 0-10 Automated blood basophils/100 leukocytes 1 % 0-10 Blood neutrophils automated count (number/volume) 4.8 10*3 1.8-7.8 Blood lymphocytes automated count (number/volume) 2.8 10*3 1.0-4.0 Blood monocytes automated count (number/volume) 1.1 10*3 0.0- 1.0 Automated eosinophil count 0.2 10*3/uL 0.0-0.3 Automated blood basophil count (count/volume) 0.0 10*3/uL 0.0-0.1 Whole blood basic metabolic panel - 09/06/17 05:10 Serum or plasma sodium measurement (moles/volume) 140 mmol/L 135-145 Serum or plasma potassium measurement (moles/volume) 3.2 mmol/L 3.6-5.0 Serum or plasma chloride measurement (moles/volume) 110 mmol/L 98-107 Carbon dioxide 22 mmol/L 21-32 Serum or plasma anion gap determination (moles/volume) 8 mmol/L 5-14 Serum or plasma urea nitrogen measurement (mass/volume) 8 mg/dL 7-18 Serum or plasma creatinine measurement (mass/volume) 0.65 mg/dL 0.60-1.30 Serum or plasma urea nitrogen/creatinine mass ratio 12 NRG Serum or plasma creatinine measurement with calculation of estimated glomerular filtration rate > NRG Serum or plasma glucose measurement (mass/volume) 108 mg/dL 70-105 Serum or plasma calcium measurement (mass/volume) 8.4 mg/dL 8.5-10.1 Magnesium - 09/06/17 05:10 Magnesium 1.9 mg/dL 1.8-2.4 Capillary blood glucose measurement by glucometer (mass/volume) - 09/06/17 05:27 Capillary blood glucose measurement by glucometer (mass/volume) 128 mg/dL 70-110 Capillary blood glucose measurement by glucometer (mass/volume) - 09/06/17 10:42 Capillary blood glucose measurement by glucometer (mass/volume) 159 mg/dL 70-110 CMP - 11/23/17 09:55 GLUCOSE 490 mg/dL 65-99 UREA NITROGEN (BUN) 15 mg/dL 7-25 CREATININE 1.11 mg/dL 0.70-1.33 eGFR NON-AFR. TOGOLESE 75 mL/min/1.73m2 > OR=60 eGFR 87 mL/min/1.73m2 > OR=60 BUN/CREATININE RATIO NOT APPLICABLE (calc) 6-22 SODIUM 129 mmol/L 135-146 POTASSIUM 4.4 mmol/L 3.5-5.3 CHLORIDE 99 mmol/L 98-110 CARBON DIOXIDE 21 mmol/L 20-31 CALCIUM 9.7 mg/dL 8.6-10.3 PROTEIN, TOTAL 7.9 g/dL 6.1-8.1 ALBUMIN 4.4 g/dL 3.6-5.1 GLOBULIN 3.5 g/dL (calc) 1.9-3.7 ALBUMIN/GLOBULIN RATIO 1.3 (calc) 1.0-2.5 BILIRUBIN, TOTAL 0.5 mg/dL 0.2-1.2 ALKALINE PHOSPHATASE 129 U/L 40-115 AST 33 U/L 10-35 ALT 37 U/L 9-46 LIPID PANEL - 05/15/18 11:07 CHOLESTEROL, TOTAL 222 mg/dL <200 HDL CHOLESTEROL 24 mg/dL >40 TRIGLYCERIDES 409 mg/dL <150 LDL-CHOLESTEROL mg/dL (calc) NRG CHOL/HDLC RATIO 9.3 (calc) <5.0 NON HDL CHOLESTEROL 198 mg/dL (calc) <130 PDM - 09 PANEL (PROFILE 1) - 09/25/18 10:35 Prescribed Drug 1 Hydrocodone NRG Creatinine TNP mg/dL NRG COMMENT NRG Prescribed Drug 2 Lyrica(TM) NRG Encounters ACCT No. Visit Date/Time Discharge Status Pt. Type Provider Facility Loc./Unit Complaint [id number] 09/25/2018 10:00:00 09/25/2018 23:59:59 CLS Outpatient SARAH GOLDMAN APRN [facility] [id number] 09/25/2018 10:00:00 Document Registration [id number] 05/15/2018 10:20:00 Document Registration [id number] 11/23/2017 09:00:00 Document Registration [id number] 08/05/2017 16:40:00 Document Registration [id number] 06/29/2017 08:20:00 Document Registration [id number] 09/02/2017 22:45:00 09/06/2017 16:35:00 DIS Outpatient MAURO COMBS, PRANAY Grewal [facility] 4TH SEPSIS,ABSCESS LLE,HYPERGLYCEMIA DM,H/O COPD [id number] 01/04/2016 17:54:00 01/04/2016 20:08:00 DIS Emergency NOEMÍ DO, ARLIN K [facility] ER NUMBNESS L SIDE/DIFF TALKING [id number] 09/30/2015 17:09:00 09/30/2015 18:50:00 DIS Emergency JARON COMBS, MINNIE Gordillo [facility] ER L SIDE NUMBNESS/WEAKNESS/LETHARGIC [id number] 05/05/2015 09:44:00 05/05/2015 23:59:59 CLS Outpatient TERESO COMBS, ADRIENNE Lowe [facility] RAD UPPER BACK PAIN [id number] 02/28/2014 06:47:00 02/28/2014 10:30:00 DIS Outpatient GALE RICHARDS MD [facility] SDC DYSPHAGIA;COUGH [id number] 02/27/2014 07:43:00 02/27/2014 23:59:59 CLS Outpatient [id number] 02/13/2014 11:35:00 02/13/2014 23:59:59 CLS Outpatient GALE RICHARDS MD [facility] RAD DYSPHAGIA,COUGH SOA [id number] 10/12/2013 20:33:00 10/12/2013 21:51:00 DIS Emergency RAEANN MOMIN APRN [facility] ER L FOOT PAIN [id number] 08/03/2013 11:33:00 08/05/2013 13:10:00 DIS Inpatient ISIAH SHEPHERD DPM [facility] SURGICAL LEFT FOOT FRACTURE [id number] 07/24/2013 13:15:00 07/24/2013 23:59:59 CLS Outpatient ISIAH SHEPHERD DPM [facility] PREOP LEFT FOOT FRACTURE [id number] 07/24/2013 09:40:00 07/24/2013 11:38:00 DIS Emergency JARON COMBS, MINNIE Gordillo [facility] ER LEFT FOOT PAIN [id number] 07/15/2013 18:34:00 07/15/2013 20:39:00 DIS Outpatient ISIAH SHEPHERD DPM [facility] SDC METATARSAL DISLOCATION FX [id number] 05/07/2013 12:10:00 05/07/2013 23:59:59 CLS Outpatient TERESO COMBS, ADRIENNE Lowe [facility] RAD COUGH [id number] 03/14/2015 13:33:00 Document Registration [id number] 03/14/2015 13:33:00 Document Registration [id number] 04/28/2011 14:05:00 Document Registration [id number] 12/28/2010 10:52:00 Document Registration [id number] 10/26/2010 09:24:00 Document Registration [id number] 09/29/2010 05:35:00 Document Registration [id number] 09/28/2010 09:06:00 Document Registration [id number] 08/25/2010 13:07:00 Document Registration [id number] 08/22/2010 21:50:00 Document Registration
[2018-12-07] MEDS ORDERED: NS IV 1000 ML 3,000 ML ONE (13:32)
--- NOTE | 2018-12-07 13:33 | ED Trauma-Multisystem ---
General Stated Complaint: FALL Source of Information: Patient Exam Limitations: No Limitations History of Present Illness Date Seen by Provider: Dec 07, 2018 Time Seen by Provider: 13:27 Initial Comments To ER per EMS emergently from [facility] where he fell about 3 stories from the top of a 32 foot ladder. He was initially conscious upon EMS a rrival but stated that he couldn't move either his arms or his legs. Shortly thereafter he lost consciousness, was intubated using 20 mg of etomidate, 100 mg of lidocaine, succinylcholine 200 mg. Blood sugar was found to be 411, tachycardic at 115, hypotensive at 69/40. He received 1 L of crystalloids in route to the hospital Occurred: Just Prior to Arrival Severity: Moderate Loss of Consciousness: No Loss of Consciousness Allergies and Home Medications Allergies Coded Allergies: No Known Drug Allergies (Unverified , 08/25/10) Home Medications Alprazolam 1 Mg Tablet, 1 MG PO HS, (Reported) Cephalexin 500 Mg Capsule, 500 MG PO QID Prescribed by: ZEN GARZA on 09/06/17 1555 Hydrocodone/Acetaminophen 1 Each Tablet, 1-2 TAB PO 4-6 hours PRN for PAIN- BREAKTHROUGH Prescribed by: ZEN GARZA on 09/06/17 1555 Ibuprofen 800 Mg Tablet, 800 MG PO Q8H, (Reported) Insulin Glargine,Hum.rec.anlog 100 Unit/1 Ml Insuln.pen, 20-30 UNITS SQ BID, (Reported) Metformin HCl 500 Mg Tab.er.24h, 1,000 MG PO BID, (Reported) TAKES 2 (500 MG) TABLETS / LAST FILLED 06/21/17 #120 Pioglitazone HCl 45 Mg Tablet, 45 MG PO DAILY, (Reported) Pregabalin 150 Mg Capsule, 150 MG PO TID, (Reported) Tadalafil 5 Mg Tablet, 5 MG PO DAILY, (Reported) Tamsulosin HCl 0.4 Mg Cap.er.24h, 0.4 MG PO 1200, (Reported) LAST FILLED 07/28/17 #30 Patient Home Medication List Home Medication List Reviewed: Yes Review of Systems Review of Systems Constitutional: no symptoms reported, other (unable to obtain) Past Mensoff-Vgyzpk-Gizyud Hx Patient Social History Alcohol Beverage of Choice: Wine Type Used: Cigarettes Recent Hopitalizations: Yes Immunizations Up To Date Tetanus Booster (TDap): Unknown PED Vaccines UTD: Yes Date of Pneumonia Vaccine: Sep 04, 2015 Date of Influenza Vaccine: Apr 05, 2017 Seasonal Allergies Seasonal Allergies: No Past Medical History Surgeries: Yes (hernia repair x 2,2 teeth removed,bladder and kidney problems in childhood) Abdominal, Orthopedic Respiratory: Yes (OCCASIONALLY USES INHALER) COPD Currently Using CPAP: No Currently Using BIPAP: No Cardiac: No Neurological: Yes Neuropathy Reproductive Disorders: No Sexually Transmitted Disease: No Bladder Infection Gastrointestinal: Yes Polyps Musculoskeletal: Yes (LEFT FOOT FX/ORIF; CHRONIC FOOT PAIN--NEUROPATHY) Chronic Back Pain, Fractures Endocrine: Yes Diabetes, Insulin dep HEENT: Yes Cataract Cancer: No Psychosocial: Yes Sleep Difficulties, Anxiety Integumentary: No Blood Disorders: No Adverse Reaction/Blood Tranf: No Family Medical History Abdominal aortic aneurysm 03 MOTHER (DOESN'T KNOW MOM'S MEDICAL HISTORY) Cancer 03 FATHER (TESTICULAR) Family history: Diabetes mellitus 03 FATHER Family history: Hypertension 03 FATHER No Family History of: Family history: Alzheimer's disease Family history: Arthritis Family history: Breast disease Family history: Cardiovascular disease Family history: Gastrointestinal disease Family history: Thyroid disorder Hereditary disease History of - respiratory disease Myocardial infarction Parkinson's disease Seizure disorder Stroke AAA, Diabetes, Hypertension Physical Exam Vital Signs Vital Signs - First Documented 12/07/18 12/07/18 13:10 14:12 Temp 97.2 Pulse 78 Resp 22 B/P (MAP) 71/55 (60) Pulse Ox 97 O2 Delivery Mechanical Ventilator FiO2 60 Height, Weight, BMI Height: 5'3.00" Weight: 162lbs. 1.0oz. 73.477317oc; 28.7 BMI Method:Stated General Appearance: WD/WN, Other (intubated, rigid cervical collar in place, backboard in place. No obvious sign of head injury, pupils are equal. No b leeding from the mouth and nose. Patient was log rolled to his left side off of the rigid spine board. There is ecchymosis over the right scapular region on the back. No vertebral step-offs are palpated. He has no rectal tone on digital rectal exam, there is no diana blood on digital rectal exam nor is there blood at the meatus. Pelvis is stable. Chest rises and falls symmetrically with respirations on the ventilator, questionably diminished on the left side. Heart sounds are regular and not muffled. There is no ecchymosis abrasion or obvious external sign of injury to the anterior torso. Abdomen is round soft. Bedside FAST exam by Dr. James negative for free fluid.) Head: No Active Bleeding, No Carrasco's Sign, No Contusions, No Raccoon Eyes Eyes: Bilateral Eye Normal Inspection, Bilateral Eye PERRL, Bilateral Eye EOMI Cardiovascular: No Murmur, Tachycardia Respiratory: No Accessory Muscle Use, No Respiratory Distress, Other (questionably diminished left side) Gastrointestinal: No Pulsatile Mass, Soft Back: Normal Inspection, Other (ecchymosis over the right scapular region) Extremity: Pelvis Stable, Slow Capillary Refill, Other (abrasion of the lateral right humerus) Neurologic/Psychiatric: Other (no rectal tone. Unclear whether this is from the succinylcholine or from spinal cord injury.) Skin: Normal Color, Warm/Dry [place] Coma Score Best Eye Response (Clarisse): (1) No Response Best Verbal Response (Kingsland): (1) No Verbal Response Best Motor Response ([place]): (1) No Motor Response [place] Total: 3 (GCS is 3T) Progress/Results/Core Measures Results/Orders Lab Results Laboratory Tests Test 12/07/18 13:10 12/07/18 13:51 Range/Units White Blood Count 13.3 H 4.3-11.0 10^3/uL Red Blood Count 3.80 L 4.35-5.85 10^6/uL Hemoglobin 12.5 L 13.3-17.7 G/DL Hematocrit 35 L 40-54 % Mean Corpuscular Volume 93 80-99 FL Mean Corpuscular Hemoglobin 33 25-34 PG Mean Corpuscular Hemoglobin Concent 35 32-36 G/DL Red Cell Distribution Width 13.0 10.0-14.5 % Platelet Count 235 130-400 10^3/uL Mean Platelet Volume 8.8 7.4-10.4 FL Prothrombin Time 14.8 H 12.2-14.7 SEC INR Comment 1.1 0.8-1.4 Activated Partial Thromboplast Time 25 24-35 SEC Fibrinogen 268 221-496 MG/DL D-Dimer 2.96 H 0.00-0.49 UG/ML Sodium Level 133 L 135-145 MMOL/L Potassium Level 4.5 3.6-5.0 MMOL/L Chloride Level 103 98-107 MMOL/L Carbon Dioxide Level 18 L 21-32 MMOL/L Anion Gap 12 5-14 MMOL/L Blood Urea Nitrogen 18 7-18 MG/DL Creatinine 1.70 H 0.60-1.30 MG/DL Estimat Glomerular Filtration Rate 42 BUN/Creatinine Ratio 11 Glucose Level 424 *H 70-105 MG/DL Calcium Level 7.8 L 8.5-10.1 MG/DL Phosphorus Level 4.0 2.3-4.7 MG/DL Magnesium Level 1.8 1.8-2.4 MG/DL Total Bilirubin 0.3 0.1-1.0 MG/DL Direct Bilirubin 0.1 0.0-0.3 MG/DL Indirect Bilirubin 0.2 MG/DL Aspartate Amino Transf (AST/SGOT) 293 H 5-34 U/L Alanine Aminotransferase (ALT/SGPT) 193 H 0-55 U/L Alkaline Phosphatase 105 40-136 U/L Troponin I < 0.028 <0.028 NG/ML Total Protein 6.3 L 6.4-8.2 GM/DL Albumin 3.5 3.2-4.5 GM/DL Serum Alcohol < 10 <10 MG/DL Urine Color YELLOW Urine Clarity CLEAR Urine pH 5 5-9 Urine Specific [place] 1.020 1.016-1.022 Urine Protein 2+ H NEGATIVE Urine Glucose (UA) 4+ H NEGATIVE Urine Ketones 1+ H NEGATIVE Urine Nitrite NEGATIVE NEGATIVE Urine Bilirubin NEGATIVE NEGATIVE Urine Urobilinogen NORMAL NORMAL MG/DL Urine Leukocyte Esterase NEGATIVE NEGATIVE Urine RBC (Auto) 1+ H NEGATIVE Urine RBC 5-10 H /HPF Urine WBC NONE /HPF Urine Squamous Epithelial Cells 2-5 /HPF Urine Crystals NONE /LPF Urine Bacteria TRACE /HPF Urine Casts NONE /LPF Urine Mucus NEGATIVE /LPF Urine Culture Indicated NO Urine Opiates Screen POSITIVE H NEGATIVE Urine Oxycodone Screen NEGATIVE NEGATIVE Urine Methadone Screen NEGATIVE NEGATIVE Urine Propoxyphene Screen NEGATIVE NEGATIVE Urine Barbiturates Screen NEGATIVE NEGATIVE Ur Tricyclic Antidepressants Screen NEGATIVE NEGATIVE Urine Phencyclidine Screen POSITIVE H NEGATIVE Urine Amphetamines Screen NEGATIVE NEGATIVE Urine Methamphetamines Screen NEGATIVE NEGATIVE Urine Benzodiazepines Screen POSITIVE H NEGATIVE Urine Cocaine Screen NEGATIVE NEGATIVE Urine Cannabinoids Screen POSITIVE H NEGATIVE My Orders Orders - RAEANN MOMIN APRN Fentanyl Injection (Sublimaze Injection (12/07/18 13:30) Ns Iv 1000 Ml (Sodium Chloride 0.9%) (12/07/18 13:45) Iohexol Injection (Omnipaque 350 Mg/Ml 1 (12/07/18 13:45) Received Contrast (Hold Metformin- Contr (12/07/18 13:45) Sodium Chloride Flush (Catheter Flush Sy (12/07/18 13:45) Ns (Ivpb) (Sodium Chloride 0.9% Ivpb Bag (12/07/18 13:45) Ns Iv 1000 Ml (Sodium Chloride 0.9%) (12/07/18 13:32) Norepinephrine (Levophed) (12/07/18 13:45) Midazolam Injection (Versed Injection) (12/07/18 14:02) Midazolam Injection (Versed Injection) (12/07/18 14:15) Fentanyl Injection (Sublimaze Injection (12/07/18 14:15) Propofol Drip (Icu) (Diprivan Drip (Icu) (12/07/18 14:14) Ns Iv 1000 Ml (Sodium Chloride 0.9%) (12/07/18 14:30) Ns Iv 1000 Ml (Sodium Chloride 0.9%) (12/07/18 14:30) Propofol Drip (Icu) (Diprivan Drip (Icu) (12/07/18 14:30) Dipht,Pertuss(Acell),Tet Adult (Boostrix (12/07/18 14:30) Medications Given in ED Current Medications Medications Dose Ordered Sig/Leandra Route Start Time Stop Time Status Last Admin Dose Admin Diphtheria/ Tetanus/Acell Pertussis 0.5 ml ONCE ONCE IM 12/07/18 14:30 12/07/18 14:31 DC 12/07/18 14:33 0.5 ML Fentanyl Citrate 100 mcg ONCE PRN IVP 12/07/18 13:30 12/07/18 15:00 DC 12/07/18 13:20 100 MCG Fentanyl Citrate 100 mcg Q1H PRN IVP 12/07/18 14:15 12/07/18 15:00 DC 12/07/18 13:50 100 MCG Iohexol 100 ml ONCE ONCE IV 12/07/18 13:45 12/07/18 13:46 DC 12/07/18 13:39 100 ML Midazolam HCl 3 mg ONCE ONCE IVP 12/07/18 14:15 12/07/18 14:16 DC 12/07/18 14:08 3 MG Sodium Chloride 10 ml NEEDED PRN IV 12/07/18 13:45 12/07/18 15:00 DC 12/07/18 13:39 10 ML Sodium Chloride 100 ml ONCE ONCE IV 12/07/18 13:45 12/07/18 13:46 DC 12/07/18 13:39 80 ML Vital Signs/I&O 12/07/18 12/07/18 12/07/18 12/07/18 13:10 14:12 14:24 15:00 Temp 97.2 Pulse 78 94 90 Resp 22 20 16 14 B/P (MAP) 71/55 (60) 100/65 98/59 (72) Pulse Ox 97 97 98 97 O2 Delivery Mechanical Ventilator Mechanical Ventilator FiO2 60 Progress Progress Note : Progress Note [id number] with trauma surgeon Dr. James and Dr. García. Both of whom agreed to withhold blood products initially, the second liter of crystalloids is infusing, blood pressure 72 systolic, heart rate 99. FAST exam negative for free fluid, luna spected hypotension is from either lidocaine used to intubate or spinal cord injury. Diagnostic Imaging Diagonstic Imaging: CT Comments NAME: VIRGINIA LOO [facility] REC#: [id number] PT STATUS: REG ER : 1965 PHYSICIAN: GEOVANNA BINGHAM MD ADMIT DATE: 12/07/18/ER Draft Date of Exam:12/07/18 CT HEAD/CERVICAL SPINE WO PROCEDURE: CT head and CT cervical spine without contrast. TECHNIQUE: Multiple contiguous axial images were obtained through the brain and cervical spine without the use of intravenous contrast. Sagittal and coronal reformations through the cervical spine were then performed. Auto Exposure Controls were utilized during the CT exam to meet ALARA standards for radiation dose reduction. INDICATION: Fall from three stories. COMPARISON: Comparison is made with prior head CT from 01/04/2016. FINDINGS: CT head: Ventricles and sulci are stable in appearance. No sulcal effacement, midline shift or hemorrhage is detected. Cisterns are patent. Visualized paranasal sinuses are clear. IMPRESSION: No acute intracranial process is detected. CT cervical spine: Alignment is normal apart from minimal anterolisthesis of C4 on C5. There is significant degenerative disc disease at C5-C6 and C6-C7 levels with disc space narrowing and marginal spurring. Patient is intubated. ET tube is slightly low, just entering the right mainstem bronchus. No definite cervical spine fracture is seen. There is significant multilevel hypertrophic facet degenerative change. Imaging through the upper chest does show fractures involving right-sided first, second and third ribs. There is probable pulmonary contusion in the upper lung nieves bilaterally. There appears to be trace right-sided pneumothorax. IMPRESSION: 1. Cervical spondylosis. No acute cervical spine fracture is seen. 2. Right-sided first, second, and third rib fractures. 3. Probable bilateral pulmonary contusions and small right pneumothorax. 4. ET tube is slightly low in position, just entering the right mainstem bronchus. Dictated on workstation # [id number] Dict: 12/07/18 1338 Trans: 12/07/[address] [facility] [id number] Interpreted by: NAS BLANCO MD Electronically signed by: NAME: VIRGINIA LOO [facility] REC#: [id number] PT STATUS: REG ER : 1965 PHYSICIAN: GEOVANNA BINGHAM MD ADMIT DATE: 12/07/18/ER Draft Date of Exam:12/07/18 CT CHEST/ABDOMEN/PELVIS W PROCEDURE: CT chest, abdomen, and pelvis with contrast. TECHNIQUE: Multiple contiguous axial images were obtained through the chest, abdomen, and pelvis after the administration of intravenous contrast. Auto Exposure Controls were utilized during the CT exam to meet ALARA standards for radiation dose reduction. INDICATION: Trauma, fall from height of three stories off of a ladder. FINDINGS: CT chest: Endotracheal tube is in place. The tip of the ET tube is slightly low in position, just entering the right mainstem bronchus. This could be pulled back 1-2 cm. The thoracic aorta is unremarkable. No definite great vessel injury is seen. No mediastinal hematoma or pericardial effusion is identified. There is a very small right-sided pleural effusion, likely hemothorax. There are bibasilar infiltrates, likely pulmonary contusions. A very small right-sided pneumothorax is identified. There appear to be fractures involving the right 1st through 10th ribs. Majority of the fractures are posteriorly based. Several rib fractures are displaced. Sixth rib is segmental. There are fractures of the right seventh, eighth and ninth transverse processes as well. T12 ribs are hypoplastic. No left-sided rib fractures are seen. There is a comminuted left scapular fracture. Reconstruction artifact of the sternum is noted. No definite sternal fracture is seen. IMPRESSION: 1. Right 1st through 10th rib fractures as well as fractures of right seventh, eighth and ninth transverse process fractures. There are bilateral pulmonary contusions, trace right hemothorax and trace right pneumothorax. 2. Left scapular fracture. CT abdomen and pelvis: No focal liver or splenic laceration is seen. No perihepatic or perisplenic fluid is identified. The pancreas, adrenal glands and kidneys are unremarkable. There is moderate increased density identified in the mesenteric fat in the right upper quadrant located between the hepatic flexure and the second portion of the duodenum. This involves an area measuring approximately 7.2 x 5.1 cm. This is suggestive of blood, likely mesenteric injury. No acute arterial extravasation is seen. This is similar in size on the delayed images. No free fluid or evidence of hemoperitoneum is identified. The bladder is unremarkable. No significant contrast excretion into the renal collecting systems or ureters is seen on the delayed images consistent with hypotension. There is no free air. Bony structures appear nonacute. IMPRESSION: 1. Findings suggestive of mesenteric injury in the right upper quadrant. No acute arterial extravasation is seen. No solid visceral injury is detected. Results were discussed with Emergency Room and Trauma Surgery prior to this dictation. Dictated on workstation # [id number] Dict: 12/07/18 1356 Trans: 12/07/[address] [facility] [id number] Interpreted by: NAS BLANCO MD Electronically signed by: Departure Communication (Admissions) Family Conversation NAME: VIRGINIA LOO [facility] REC#: [id number] PT STATUS: REG ER : 1965 PHYSICIAN: GEOVANNA BINGHAM MD ADMIT DATE: 12/07/18/ER Draft Date of Exam:12/07/18 CHEST 1 VIEW, AP/PA ONLY INDICATION: Trauma. An ET tube tip is in the lower thoracic trachea just above the qasim. No pneumothorax or hemothorax is apparent. No free air beneath the diaphragms evident. No displaced chest wall fracture deformity can be identified. IMPRESSION: ET tube is in the very lowest portion of the thoracic trachea approaching the qasim. It is at the midline with no acute pleural collection or traumatic chest wall deformity apparent. Dictated on workstation # [id number] Dict: 12/07/18 1331 Trans: 12/07/[address] [facility] [id number] Interpreted by: SUNDAY GARCIA Electronically signed by: 20-Dr. Matias and Dr. James Company the patient to the CT scanning department. He received a total of 5 L of crystalloids here with blood pressure still in the 60s systolic. He was not tachycardic, heart rate in the 70s. Upon return to the emergency room, there was no reported free fluid in the abdomen per Dr. García to account for the hypotension. I started a central line in the right femoral vein, ultrasound-guided. Levophed was started. Currently he is going at 0.25 mcg/kg/min based on 70 kg estimated weight with blood pressure of 126/67. He did start to move both arms, right greater than left upon return to ER. He has not been given any more paralytics since arrival to the emergency room from EMS. He's had two 100 g bolus doses of fentanyl and 1 dose of 3 mg of Versed for sedation as he was swallowing/gagging on the endotracheal tube. However he still does not have any rectal tone. Given the concern for SCIWOR[place] Dr. García spoke with Dr. Espinoza from the emergency room at [facility]. We'll tra nsport there via air. Alternatively his hypotension/loss of rectal tone could be from the lidocaine used intubate and the succinylcholine used intubate, however he is currently moving his arms and despite that still has no rectal tone. He warrants neurology evaluation. Endotracheal tube was seen to be a bit deep right at the bifurcation, this was withdrawn about 2 cm by respiratory therapy. No troubles with ventilation and oxygenation. Impression Primary Impression: Hypotension Qualified Codes: I95.9 - Hypotension, unspecified Additional Impression: Blunt trauma of multiple sites Disposition: XF SHT-TRM HOSP Condition: Critical Departure-Patient Inst. Referrals: [facility] (PCP/Family) Primary Care Physician RAEANN MOMIN APRN Dec 07, 2018 13:33
--- NOTE | 2018-12-07 13:38 | Diagnostic Imaging Report ---
INDICATION: Trauma. An ET tube tip is in the lower thoracic trachea just above the qasim. No pneumothorax or hemothorax is apparent. No free air beneath the diaphragms evident. No displaced chest wall fracture deformity can be identified. IMPRESSION: ET tube is in the very lowest portion of the thoracic trachea approaching the qasim. It is at the midline with no acute pleural collection or traumatic chest wall deformity apparent. Dictated by: Dictated on workstation # [id number]
[2018-12-07 13:45] LABS: FIBRIN DEGRADATION PRODUCTS 2.96 UG/ML (0.00-0.49); INR 1.1 (0.8-1.4); PROTHROMBIN TIME PATIENT 14.8 SEC (12.2-14.7)
[2018-12-07] MEDS ORDERED: NOREPINEPHRINE 4 MG in NS (IVPB) 250 ML IV SCH (13:45)
[2018-12-07] MEDS ORDERED: CATHETER FLUSH 10 ML SYR IV PRN (13:45)
[2018-12-07] MEDS ORDERED: NS 100 ML (IVPB) BAG IV ONE (13:45)
[2018-12-07] MEDS ORDERED: HOLD METFORMIN - RECEIVED CONTRAST 20 ML VIAL IV SCH (13:45)
[2018-12-07] MEDS ORDERED: IOHEXOL 350 MG/ML 100 ML (OMNIPAQUE 350) VIAL IV ONE (13:45)
[2018-12-07 13:49] LABS: ALANINE AMINOTRANSFERASE 193 U/L (0-55); ALBUMIN 3.5 GM/DL (3.2-4.5); ALKALINE PHOSPHATASE 105 U/L (40-136); BILIRUBIN,DIRECT 0.1 MG/DL (0.0-0.3); BILIRUBIN,INDIRECT 0.2 MG/DL; BILIRUBIN,TOTAL 0.3 MG/DL (0.1-1.0); BUN/CREATININE RATIO 11; CALCIUM 7.8 MG/DL (8.5-10.1); CARBON DIOXIDE 18 MMOL/L (21-32); CHLORIDE 103 MMOL/L (98-107); GFR ESTIMATED 42; MAGNESIUM 1.8 MG/DL (1.8-2.4); POTASSIUM 4.5 MMOL/L (3.6-5.0); SODIUM 133 MMOL/L (135-145); TOTAL PROTEIN 6.3 GM/DL (6.4-8.2)
--- NOTE | 2018-12-07 13:52 | Diagnostic Imaging Report ---
PROCEDURE: CT head and CT cervical spine without contrast. TECHNIQUE: Multiple contiguous axial images were obtained through the brain and cervical spine without the use of intravenous contrast. Sagittal and coronal reformations through the cervical spine were then performed. Auto Exposure Controls were utilized during the CT exam to meet ALARA standards for radiation dose reduction. INDICATION: Fall from three stories. COMPARISON: Comparison is made with prior head CT from 01/04/2016. FINDINGS: CT head: Ventricles and sulci are stable in appearance. No sulcal effacement, midline shift or hemorrhage is detected. Cisterns are patent. Visualized paranasal sinuses are clear. IMPRESSION: No acute intracranial process is detected. CT cervical spine: Alignment is normal apart from minimal anterolisthesis of C4 on C5. There is significant degenerative disc disease at C5-C6 and C6-C7 levels with disc space narrowing and marginal spurring. Patient is intubated. ET tube is slightly low, just entering the right mainstem bronchus. No definite cervical spine fracture is seen. There is significant multilevel hypertrophic facet degenerative change. Imaging through the upper chest does show fractures involving right-sided first, second and third ribs. There is probable pulmonary contusion in the upper lung nieves bilaterally. There appears to be trace right-sided pneumothorax. IMPRESSION: 1. Cervical spondylosis. No acute cervical spine fracture is seen. 2. Right-sided first, second, and third rib fractures. 3. Probable bilateral pulmonary contusions and small right pneumothorax. 4. ET tube is slightly low in position, just entering the right mainstem bronchus. Dictated by: Dictated on workstation # [id number]
[2018-12-07 13:58] LABS: GLUCOSE 424 MG/DL (70-105)
[2018-12-07 13:59] LABS: BILIRUBIN,URINE NEGATIVE (NEGATIVE); CLARITY,URINE CLEAR; COLOR,URINE YELLOW; GLUCOSE, URINE (UA) 4+ (NEGATIVE); KETONES,URINE 1+ (NEGATIVE); LEUKOCYTE ESTERASE ,URINE NEGATIVE (NEGATIVE); NITRITE,URINE NEGATIVE (NEGATIVE); PH,URINE 5 (5-9); PROTEIN,URINE 2+ (NEGATIVE); UROBILINOGEN,URINE NORMAL (NORMAL)
[2018-12-07] MEDS ORDERED: MIDAZOLAM 5 MG/5 ML (VERSED) VIAL ONE (14:02)
[2018-12-07 14:09] LABS: BACTERIA,URINE TRACE /HPF
[2018-12-07 14:12] LABS: AMPHETAMINE SCREEN, URINE NEGATIVE (NEGATIVE); BARBITURATE SCREEN URINE NEGATIVE (NEGATIVE); BENZODIAZEPINES SCREEN URINE POSITIVE (NEGATIVE); CANNABINOID SCREEN, URINE POSITIVE (NEGATIVE); COCAINE SCREEN URINE NEGATIVE (NEGATIVE); METHADONE STAT NEGATIVE (NEGATIVE); METHAMPHETAMINE SCREEN URINE S NEGATIVE (NEGATIVE); OPIATE SCREEN URINE POSITIVE (NEGATIVE); OXYCODONE STAT NEGATIVE (NEGATIVE); PROPOXYPHENE STAT NEGATIVE (NEGATIVE); TRICYCLIC ANTIDEPRESSANTS SCRE NEGATIVE (NEGATIVE)
[2018-12-07] MEDS ORDERED: PROPOFOL DRIP (ICU) 100 ML IV ONE (14:14)
[2018-12-07] MEDS ORDERED: MIDAZOLAM 5 MG/5 ML (VERSED) VIAL IVP ONE (14:15)
--- NOTE | 2018-12-07 14:24 | Diagnostic Imaging Report ---
PROCEDURE: CT chest, abdomen, and pelvis with contrast. TECHNIQUE: Multiple contiguous axial images were obtained through the chest, abdomen, and pelvis after the administration of intravenous contrast. Auto Exposure Controls were utilized during the CT exam to meet ALARA standards for radiation dose reduction. INDICATION: Trauma, fall from height of three stories off of a ladder. FINDINGS: CT chest: Endotracheal tube is in place. The tip of the ET tube is slightly low in position, just entering the right mainstem bronchus. This could be pulled back 1-2 cm. The thoracic aorta is unremarkable. No definite great vessel injury is seen. No mediastinal hematoma or pericardial effusion is identified. There is a very small right-sided pleural effusion, likely hemothorax. There are bibasilar infiltrates, likely pulmonary contusions. A very small right-sided pneumothorax is identified. There appear to be fractures involving the right 1st through 10th ribs. Majority of the fractures are posteriorly based. Several rib fractures are displaced. Sixth rib is segmental. There are fractures of the right seventh, eighth and ninth transverse processes as well. T12 ribs are hypoplastic. No left-sided rib fractures are seen. There is a comminuted left scapular fracture. Reconstruction artifact of the sternum is noted. No definite sternal fracture is seen. IMPRESSION: 1. Right 1st through 10th rib fractures as well as fractures of right seventh, eighth and ninth transverse process fractures. There are bilateral pulmonary contusions, trace right hemothorax and trace right pneumothorax. 2. Left scapular fracture. CT abdomen and pelvis: No focal liver or splenic laceration is seen. No perihepatic or perisplenic fluid is identified. The pancreas, adrenal glands and kidneys are unremarkable. There is moderate increased density identified in the mesenteric fat in the right upper quadrant located between the hepatic flexure and the second portion of the duodenum. This involves an area measuring approximately 7.2 x 5.1 cm. This is suggestive of blood, likely mesenteric injury. No acute arterial extravasation is seen. This is similar in size on the delayed images. No free fluid or evidence of hemoperitoneum is identified. The bladder is unremarkable. No significant contrast excretion into the renal collecting systems or ureters is seen on the delayed images consistent with hypotension. There is no free air. Bony structures appear nonacute. IMPRESSION: 1. Findings suggestive of mesenteric injury in the right upper quadrant. No acute arterial extravasation is seen. No solid visceral injury is detected. Results were discussed with Emergency Room and Trauma Surgery prior to this dictation. Dictated by: Dictated on workstation # [id number]
[2018-12-07] MEDS ORDERED: TETANUS,DIPTH,PERTUSS P/F (BOOSTRIX) 0.5 ML VIAL IM ONE (14:30)
[2018-12-07] MEDS ORDERED: PROPOFOL DRIP (ICU) 100 ML IV SCH (14:30)
[2018-12-07] MEDS ORDERED: NS IV 1000 ML 1,000 ML IV SCH ×2 (14:30)
--- NOTE | 2018-12-07 14:30 | NUR ---
20 mg bolus of propofol given to 18 g LAC admin by Sergio Keller. [employer] MACHINE
--- NOTE | 2018-12-07 14:41 | NUR ---
Hank here for pt at this time.
--- NOTE | 2018-12-07 14:42 | NUR ---
pt family at bedside.
--- NOTE | 2018-12-07 14:42 | NUR ---
260 ml clear dark yellow urine noted in [facility] at this time.
--- NOTE | 2018-12-07 14:51 | NUR ---
aparnae loading pt to their cot at this time.
[2018-12-07 15:00] VITALS: BP 98/59
--- NOTE | 2018-12-07 16:19 | Consultation (Surgery) ---
History of Present Illness History of Present Illness Patient Consulted On(harinder/time) 12/07/18 16:13 Time Seen by Provider: 13:10 History of Present Illness Type I Trauma Activation, Fall from 32 ft. HPI per ER: To ER per EMS emergently from [facility] where he fell about 3 stories from the top of a 32 foot ladder. He was initially conscious upon EMS arrival but stated that he couldn't move either his arms or his legs. Shortly thereafter he lost consciousness, was intubated using 20 mg of etomidate, 100 mg of lidocaine, succinylcholine 200 mg. Blood sugar was found to be 411, tachycardic at 115, hypotensive at 69/40. He received 1 L of crystalloids in route to the hospital Occurred: Just Prior to Arrival (I am) Severity: Moderate Loss of Consciousness: No Loss of Consciousness I met pt in the ER, was actually waiting in Trauma bay for pt to arrive. He arrived intubated and hypotensive. Allergies and Home Medications Allergies Coded Allergies: No Known Drug Allergies (Unverified , 08/25/10) Home Medications Alprazolam 1 Mg Tablet, 1 MG PO HS, (Reported) Cephalexin 500 Mg Capsule, 500 MG PO QID Prescribed by: ZEN GARZA on 09/06/17 1555 Hydrocodone/Acetaminophen 1 Each Tablet, 1-2 TAB PO 4-6 hours PRN for PAIN- BREAKTHROUGH Prescribed by: ZEN GARZA on 09/06/17 1555 Ibuprofen 800 Mg Tablet, 800 MG PO Q8H, (Reported) Insulin Glargine,Hum.rec.anlog 100 Unit/1 Ml Insuln.pen, 20-30 UNITS SQ BID, (Reported) Metformin HCl 500 Mg Tab.er.24h, 1,000 MG PO BID, (Reported) TAKES 2 (500 MG) TABLETS / LAST FILLED 06/21/17 #120 Pioglitazone HCl 45 Mg Tablet, 45 MG PO DAILY, (Reported) Pregabalin 150 Mg Capsule, 150 MG PO TID, (Reported) Tadalafil 5 Mg Tablet, 5 MG PO DAILY, (Reported) Tamsulosin HCl 0.4 Mg Cap.er.24h, 0.4 MG PO 1200, (Reported) LAST FILLED 07/28/17 #30 Patient Home Medication List Home Medication List Reviewed: Yes Past Lqpaemk-Ziwvbl-Zhgabo Hx Patient Social History Alcohol Use: Denies Use Number of Drinks Today: Recreational Drug Use: Yes (10 YEARS AGO) Smoking Status: Current Everyday Smoker Type Used: Cigarettes Recent Foreign Travel: No Contact w/Someone Who Travel: No Recent Infectious Disease Expo: No Recent Hopitalizations: No Immunizations Up To Date Tetanus Booster (TDap): Unknown PED Vaccines UTD: Yes Date of Pneumonia Vaccine: Sep 04, 2015 Date of Influenza Vaccine: Apr 05, 2017 Seasonal Allergies Seasonal Allergies: No Surgeries History of Surgeries: Yes (hernia repair x 2,2 teeth removed,bladder and kidney problems in childhood) Surgeries: Abdominal, Orthopedic Respiratory History of Respiratory Disorde: Yes (OCCASIONALLY USES INHALER) Respiratory Disorders: COPD Cardiovascular History of Cardiac Disorders: No Neurological History of Neurological Disord: Yes Neurological Disorders: Neuropathy Reproductive System Hx Reproductive Disorders: No Sexually Transmitted Disease: No Genitourinary Genitourinary Disorders: Bladder Infection Gastrointestinal History of Gastrointestinal Di: Yes Gastrointestinal Disorders: Polyps Musculoskeletal History of Musculoskeletal Dis: Yes (LEFT FOOT FX/ORIF; CHRONIC FOOT PAIN--NEUROPATHY) Musculoskeletal Disorders: Chronic Back Pain, Fractures Endocrine History of Endocrine Disorders: Yes Endocrine Disorders: Diabetes, Insulin dep HEENT History of HEENT Disorders: Yes HEENT Disorders: Cataract Cancer History of Cancer: No Psychosocial History of Psychiatric Problem: Yes Behavioral Health Disorders: Sleep Difficulties, Anxiety Integumentary History of Skin or Integumenta: No Blood Transfusions History of Blood Disorders: No Adverse Reaction to a Blood Tr: No Family Medical History Significant Family History: AAA, Diabetes, Hypertension Family Medial History: Abdominal aortic aneurysm 03 MOTHER (DOESN'T KNOW MOM'S MEDICAL HISTORY) Cancer 03 FATHER (TESTICULAR) Family history: Diabetes mellitus 03 FATHER Family history: Hypertension 03 FATHER No Family History of: Family history: Alzheimer's disease Family history: Arthritis Family history: Breast disease Family history: Cardiovascular disease Family history: Gastrointestinal disease Family history: Thyroid disorder Hereditary disease History of - respiratory disease Myocardial infarction Parkinson's disease Seizure disorder Stroke Review of Systems-General ROS-Unable to Obtain: pt intubated and was too anxious to answer any questions Physical Exam-General Problems Physical Exam Vital Signs Vital Signs - First Documented 12/07/18 12/07/18 13:10 14:12 Temp 97.2 Pulse 78 Resp 22 B/P (MAP) 71/55 (60) Pulse Ox 97 O2 Delivery Mechanical Ventilator FiO2 60 Capillary Refill : General Appearance: severe distress, obese Eyes: Bilateral Eye PERRL HEENT: No scleral icterus (R), No scleral icterus (L); other (ET tube in place) Neck: other (C-Collar on) Respiratory: lungs clear, decreased breath sounds (left, CT showed ET tube in right mainstem), crackles Cardiovascular: no murmur, tachycardia Rectal: decreased tone (no tone at all basically ), other (no gross blood) Genital/Rectal: normal genital exam; No blood at urethral meatus Back: other (no step off of vertebra and ecchymosis over right scapula) Extremities: no pedal edema, normal capillary refill Neurologic/Psychiatric: other (pt intubated and getting some sedation) Skin: other (abrasion right upper arm) Lymphatic: no adenopathy (neck, axilla or groin) Data Review Labs Laboratory Tests 12/07/18 13:10: White Blood Count 13.3H, Red Blood Count 3.80L, Hemoglobin 12.5L, Hematocrit 35L , Mean Corpuscular Volume 93, Mean Corpuscular Hemoglobin 33, Mean Corpuscular Hemoglobin Concent 35, Red Cell Distribution Width 13.0, Platelet Count 235, Mean Platelet Volume 8.8, Prothrombin Time 14.8H, INR Comment 1.1, Activated Partial Thromboplast Time 25, Fibrinogen 268, D-Dimer 2.96H, Sodium Level 133L, Potassium Level 4.5, Chloride Level 103, Carbon Dioxide Level 18L, Anion Gap 12, Blood Urea Nitrogen 18, Creatinine 1.70H, Estimat Glomerular Filtration Rate 42, BUN/Creatinine Ratio 11, Glucose Level 424*H, Calcium Level 7.8L, Phosphorus Level 4.0, Magnesium Level 1.8, Total Bilirubin 0.3, Direct Bilirubin 0.1, Indirect Bilirubin 0.2, Aspartate Amino Transf (AST/SGOT) 293H, Alanine Am inotransferase (ALT/SGPT) 193H, Alkaline Phosphatase 105, Troponin I < 0.028, Total Protein 6.3L, Albumin 3.5, Serum Alcohol < 10 12/07/18 13:51: Urine Color YELLOW, Urine Clarity CLEAR, Urine pH 5, Urine Specific [place] 1.020, Urine Protein 2+H, Urine Glucose (UA) 4+H, Urine Ketones 1+H, Urine Nitrite NEGATIVE, Urine Bilirubin NEGATIVE, Urine Urobilinogen NORMAL, Urine Leukocyte Esterase NEGATIVE, Urine RBC (Auto) 1+H, Urine RBC 5-10H, Urine WBC NONE, Urine Squamous Epithelial Cells 2-5, Urine Crystals NONE, Urine Bacteria TRACE, Urine Casts NONE, Urine Mucus NEGATIVE, Urine Culture Indicated NO, Urine Opiates Screen POSITIVEH, Urine Oxycodone Screen NEGATIVE, Urine Methadone Screen NEGATIVE, Urine Propoxyphene Screen NEGATIVE, Urine Barbiturates Screen NEGATIVE, Ur Tricyclic Antidepressants Screen NEGATIVE, Urine Phencyclidine Screen POSITIVEH, Urine Amphetamines Screen NEGATIVE, Urine Methamphetamines Screen NEGATIVE, Urine Benzodiazepines Screen POSITIVEH, Urine Cocaine Screen NEGATIVE, Urine Cannabinoids Screen POSITIVEH Radiology PROCEDURE: CT chest, abdomen, and pelvis with contrast. TECHNIQUE: Multiple contiguous axial images were obtained through the chest, abdomen, and pelvis after the administration of intravenous contrast. Auto Exposure Controls were utilized during the CT exam to meet ALARA standards for radiation dose reduction. INDICATION: Trauma, fall from height of three stories off of a ladder. FINDINGS: CT chest: Endotracheal tube is in place. The tip of the ET tube is slightly low in position, just entering the right mainstem bronchus. This could be pulled back 1-2 cm. The thoracic aorta is unremarkable. No definite great vessel injury is seen. No mediastinal hematoma or pericardial effusion is identified. There is a very small right-sided pleural effusion, likely hemothorax. There are bibasilar infiltrates, likely pulmonary contusions. A very small right-sided pneumothorax is identified. There appear to be fractures involving the right 1st through 10th ribs. Majority of the fractures are posteriorly based. Several rib fractures are displaced. Sixth rib is segmental. There are fractures of the right seventh, eighth and ninth transverse processes as well. T12 ribs are hypoplastic. No left-sided rib fractures are seen. There is a comminuted left scapular fracture. Reconstruction artifact of the sternum is noted. No definite sternal fracture is seen. IMPRESSION: 1. Right 1st through 10th rib fractures as well as fractures of right seventh, eighth and ninth transverse process fractures. There are bilateral pulmonary contusions, trace right hemothorax and trace right pneumothorax. 2. Left scapular fracture. CT abdomen and pelvis: No focal liver or splenic laceration is seen. No perihepatic or perisplenic fluid is identified. The pancreas, adrenal glands and kidneys are unremarkable. There is moderate increased density identified in the mesenteric fat in the right upper quadrant located between the hepatic flexure and the second portion of the duodenum. This involves an area measuring approximately 7.2 x 5.1 cm. This is suggestive of blood, likely mesenteric injury. No acute arterial extravasation is seen. This is similar in size on the delayed images. No free fluid or evidence of hemoperitoneum is identified. The bladder is unremarkable. No significant contrast excretion into the renal collecting systems or ureters is seen on the delayed images consistent with hypotension. There is no free air. Bony structures appear nonacute. IMPRESSION: 1. Findings suggestive of mesenteric injury in the right upper quadrant. No acute arterial extravasation is seen. No solid visceral injury is detected. Results were discussed with Emergency Room and Trauma Surgery prior to this dictation. Dictated on workstation # [id number] Dict: 12/07/18 1356 Trans: 12/07/18 1423 [facility] [id number] Interpreted by: NAS BLANCO MD Electronically signed by: Assessment/Plan Assessment/Plan Assessment/Plan Type I Trauma Activation Fall from 32ft Hypotension - questionable neurogenic, definitely not blood loss hypovolemia Right 1-10 rib fractures Left Comminuted Scapular fracture ?? Small Mesenteric Bleed Decreased rectal tone and No movement Lower Extremities I spent over 80 minutes of Critical Care time with this pt; from the time he entered the Trauma [place] and I went to CT scanner with pt. I then went over films with the radiologist, went back to the ER and spoke to his and then spoke with ER physician at the [facility] because of suspected Neurologic injuries. This was over an hour and 10 minutes and then the rest of if spent charting and discussing case with ER provider and second surgeon. EDMUND ALAMO DO Dec 07, 2018 16:19
== END 2018-12-07 15:00 | disposition short-term general hospital (02) ==
LOC: EDUNIT# 13:07 → ER 13:09
DX: S09.90XA Unspecified injury of head, initial encounter (principal); S29.9XXA Unspecified injury of thorax, initial encounter; I95.9 Hypotension, unspecified; J44.9 Chronic obstructive pulmonary disease, unspecified; E11.40 Type 2 diabetes mellitus with diabetic neuropathy, unspecified; F41.9 Anxiety disorder, unspecified; R40.2112 Coma scale, eyes open, never, at arrival to emergency department; R40.2212 Coma scale, best verbal response, none, at arrival to emergency department; R40.2312 Coma scale, best motor response, none, at arrival to emergency department; Z82.49 Family history of ischemic heart disease and other diseases of the circulatory system; Z80.43 Family history of malignant neoplasm of testis; Z87.19 Personal history of other diseases of the digestive system; Z79.4 Long term (current) use of insulin; Z98.890 Other specified postprocedural states; W11.XXXA Fall on and from ladder, initial encounter
CPT/HCPCS: 31500; 36415; 51702; 70450; 71045; 71260; 72125; 74177; 80048; 80076; 80306; 80320; 81000; 83735; 84100; 84484; 85027; 85379; 85384; 85610; 85730; 86850; 86900; 86901; 86920; 90715; 93041; 99291; 99292

== ENCOUNTER 2019-01-04 12:45 | Inpatient (IN) | payer MEDICAID, OTHER ==
[~2019-01-04] VITALS: Ht 160 cm; Wt 64.7 kg
[2019-01-09] MEDS ORDERED: SIMV80TA21 PO (14:46)
[2019-01-09] MEDS ORDERED: HYDR-3820 PO (14:46)
[2019-01-09] MEDS ORDERED: OMG1KC PO (14:46)
[2019-01-09] MEDS ORDERED: HUM100VI15 SQ (14:46)
[2019-01-09 16:27] VITALS: BP 124/80
[2019-01-09 16:30] VITALS: BP 124/80
--- NOTE | 2019-01-09 16:30 | NUR ---
SHIMON LOOLE admitted to room 222-1, with an admitting diagnosis of SPINAL CORD INJURY AT C1-C4 LEVEL, on 01/09/19 from [facility] via EMS, accompanied by EMS CREW. VIR[place] LOO introduced to surroundings, call light, bed controls, phone, TV, temperature control, lights, meal times, smoking policy, visitor policy, side rail policy, bathrooms and showers. Patient Rights given to patient in the handbook.VIR[place] LOO verbalizes understanding that [facility] is not responsible for the loss or damage to any personal effects or valuables that are kept in the patients posession during their hospitalization. The following Patient Care Plans were discussed with the PT: Discharge Planning AND IMMOBILITY. VIR[place]IA LOO verbalizes understanding of Interdisciplinary Patient Education. Patient received Patient Rights Booklet, which includes Privacy Act Statement and Data Collection Information Summary. PATIENT DENIES PAIN PRESENTLY. LEFT ARM PICC INTACT. PERRY CATHETER AND LEFT PEG INTACT. PEG SITE IS RED AND CRUSTY. AND SONS AT BEDSIDE. SPEAKING VALVE ON OVER TRACH. O2 ON AT 6L 28% PER TRACH. DENIES FEELING OR MOVEMENT IN LEGS. CAN LIFT BOTH ARMS UP OFF BED- RIGHT STRONGER THAN LEFT. CANTWELL J COLLAR ON. REPORTED BY MEJIAS THAT TRACH IS A #8 SHILEY XLT. IS ON AN AIRBED. STATES TYLENOL HAS BEEN RELIEVING PAIN. WET TO DRY DRESSING PLACED ON SACRAL DECUB. DR. HADDAD IS TO LOOK AT [facility] FIRST THING IN AM AND THEN MIGUEL, WOUND NURSE, WILL PUT ON WOUND VAC. ORDER TO CONTINUE SAME TUBE FEEDINGS. UNABLE TO FIND IN DC PAPERS ANY INFO ON TUBE FEEDINGS, BUT CONTINUED WHAT REPORTING NURSE FROM [facility] SAID PATIENT WAS ON. KNEES AND ELBOWS RED, DRY, AND CRUSTY. AREA ON RIGHT SIDE IS SCABBED FROM PROBABLE OLD CHEST TUBE SITE. SEE WOUND INTERVENTION FOR MORE.
[2019-01-09 16:37] VITALS: BP 124/80
[2019-01-09] MEDS ORDERED: ENOX40DI13 SQ (16:50)
[2019-01-09] MEDS ORDERED: FAMO-119 PEG (16:50)
[2019-01-09] MEDS ORDERED: COLL30OI TP (16:50)
[2019-01-09] MEDS ORDERED: NA P133E22 RC (16:50)
[2019-01-09] MEDS ORDERED: VANC750V IV (16:50)
[2019-01-09] MEDS ORDERED: PROM25VI IV (16:50)
[2019-01-09] MEDS ORDERED: LORA2VIA3 IV (16:50)
[2019-01-09] MEDS ORDERED: ONDA2VIACC IV (16:50)
[2019-01-09] MEDS ORDERED: BISA10SU8 RC (16:50)
[2019-01-09] MEDS ORDERED: NEUTRA-PHOS PEG (16:50)
[2019-01-09] MEDS ORDERED: ALBU2.5V4 NEB (16:50)
[2019-01-09] MEDS ORDERED: POLY17PO6 PO (16:50)
[2019-01-09] MEDS ORDERED: PIPE3.376 IV (16:50)
[2019-01-09] MEDS ORDERED: INSU100V SQ (16:50)
[2019-01-09] MEDS ORDERED: ONDN4T PO (16:50)
[2019-01-09] MEDS ORDERED: MELA3TAB PO (16:50)
[2019-01-09] MEDS ORDERED: MIDO10TA PO (16:50)
[2019-01-09] MEDS ORDERED: INSU100I29 SQ (16:50)
[2019-01-09] MEDS ORDERED: GUAI400T71 PO (16:50)
[2019-01-09] MEDS ORDERED: ACET-2650 PO (16:50)
[2019-01-09] MEDS ORDERED: POTA20TA15 PO (16:50)
--- NOTE | 2019-01-09 16:52 | NUR ---
THE DISCHARGE MEDICATION LIST FROM [facility] SIMPLY STATED TO DISCUSS THE MEDICATION WITH THE PCP. I UPDATED THE MED REC WITH WHAT LOOKS LIKE THE CURRENT MEDICATIONS BEING GIVEN AT [facility] PRIOR TO DISCHARGE. NURSE ROBERTS IS GOING TO HAVE LOOK OVER ALL THE MEDS IN [place]. I WILL UPDATE THE MED REC TO WHAT THE PATIENT WAS TAKING PRIOR TO ADMISSION TO [facility] AT A LATER TIME FOR PROPER DISCHARGE TO HOME ORDERS. Addendum: 01/10/19 at 1006 by MIKAELA DHILLON [facility] CALLED [facility] FOR A LIST OF RECENTLY FILLED MEDICATIONS AND UPDATED THE MED REC WITH THAT. I COMPARED THE HOME MEDS THAT HAD BEEN REPORTED AT [facility] AND NOTED THE DISCREPANCIES BELOW. [facility] FILLED: 11-29-18 XANAX 1MG HS #28 (ON [facility] LIST 1/2 TAB HS HOWEVER NO STRENGTH WAS NOTED) 11-29-18 HYDROCODONE 10-325MG TID PRN #84 11-29-18 LYRICA 150MG TID #84 11-28-18 NOVOLIN 70/30 25 UNITS BID (ON [facility]'S LIST 25 UNITS DAILY) 11-28-18 IBU 800MG TID #90 (NOT ON THE LIST FROM [facility]) NOT FILLED BUT ON HOLD FROM 09-25-18 SIMVASTATIN 80MG (THIS WAS ON [facility] LIST) ALSO ON THE LIST FROM [facility] WAS FISH OIL 3 DAILY, I ADDED IT TO THE MED REC AT THIS TIME IT IS OTC.
[2019-01-09] MEDS ORDERED: PIPERACILLIN/TAZO 3.375 GM VIAL (ZOSYN) IV SCH (17:45)
[2019-01-09] MEDS ORDERED: VANCOMYCIN 750 MG/VIAL IV SCH (17:45)
[2019-01-09] MEDS ORDERED: ONDANSETRON 4 MG/2 ML (SDV) Z0FRAN IV PRN (17:45)
[2019-01-09] MEDS ORDERED: BISACODYL 10 MG SUPP (DULCOLAX) RC PRN (17:45)
[2019-01-09] MEDS ORDERED: KCL 20 MEQ TAB (K-DUR) PO PRN (17:45)
[2019-01-09] MEDS ORDERED: LORazepam INJ 2 MG/ML (ATIVAN) VIAL IV PRN (18:00)
--- NOTE | 2019-01-09 18:00 | NUR ---
BOTH PATIENT AND HIS STATE "HE HAD A HEART ATTACK AND CLOT BEHIND HIS EAR" AND THAT'S WHAT MADE HIM PASS OUT AND FALL. UNSURE IF THIS IS CORRECT OR NOT. THEY ALSO STATE "THEY WOULDN'T TELL US ANYTHING ABOUT WHAT WAS GOING ON AT [facility]".
[2019-01-09] MEDS ORDERED: FLEET ENEMA ADULT 1 EA BTL PR PRN (18:15)
[2019-01-09] MEDS ORDERED: ONDANSETRON 4 MG (ZOFRAN) ORAL DISSOLVE TAB PO PRN (18:15)
[2019-01-09] MEDS ORDERED: APAP 325 MG/10.15 ML LIQ (TYLENOL) UDC PO PRN (18:15)
[2019-01-09] MEDS ORDERED: PROMETHAZINE INJ 25 MG/ML (PHENERGAN) AMP IV PRN (18:30)
[2019-01-09] MEDS: inSUlin ASPART (NovoLOG) 1 UNIT/0.01 ML (CHARGE PER UNIT) SC SCH (18:31)
[2019-01-09] MEDS: VANCOMYCIN 750 MG/NS 250 ML IVPB IV SCH ×2 (18:54)
[2019-01-09] MEDS: guaiFENesin SYRUP 100 MG/5 ML 10 ML (ROBITUSSIN SF) PEG SCH ×2 (18:55→20:08)
[2019-01-09] MEDS ORDERED: CALCIUM CARBONATE 500 MG (TUMS) TAB.CHEW PEG PRN (20:00)
[2019-01-09] MEDS ORDERED: MELATONIN 3 MG TABLET PEG PRN (20:00)
[2019-01-09] MEDS: MELATONIN 3 MG TABLET PEG SCH (20:08)
[2019-01-09] MEDS: FAMOTIDINE 20 MG (PEPCID) TABLET PEG SCH (20:08)
[2019-01-09] MEDS: APAP 325 MG/10.15 ML LIQ (TYLENOL) UDC PEG PRN (20:08)
[2019-01-09] MEDS: POT PHOS/NA PHOS (K-PHOS NEUTRAL) PEG SCH (20:08)
[2019-01-09] MEDS: PIPERACILLIN/TAZO 4.5 GM/NS 100 ML IV SCH ×2 (20:09)
[2019-01-09] MEDS: RT-ALBUTEROL SULF 2.5 MG/3 ML PRE-MIX VIAL IH PRN (20:42)
[2019-01-09] MEDS ORDERED: POLYETHYLENE GLYCOL 17 GM (MIRALAX) PACK PO PRN (21:00)
[2019-01-09] MEDS: SENNA W/DOCUSATE (SENOKOT S) TABLET PEG SCH (21:10)
[2019-01-10] MEDS: inSUlin ASPART (NovoLOG) 1 UNIT/0.01 ML (CHARGE PER UNIT) SC SCH ×4 (00:14→18:42)
[2019-01-10] MEDS: RT-ALBUTEROL SULF 2.5 MG/3 ML PRE-MIX VIAL IH PRN ×2 (00:50→03:13)
[2019-01-10] MEDS: VANCOMYCIN 750 MG/NS 250 ML IVPB IV SCH ×6 (01:36→18:38)
[2019-01-10] MEDS: PIPERACILLIN/TAZO 4.5 GM/NS 100 ML IV SCH ×6 (02:43→18:37)
[2019-01-10] MEDS: guaiFENesin SYRUP 100 MG/5 ML 10 ML (ROBITUSSIN SF) PEG SCH ×3 (05:01→22:01)
[2019-01-10] MEDS: KCL 20 MEQ TAB (K-DUR) PO SCH ×2 (05:01→21:55)
[2019-01-10 05:22] LABS: BASOPHILS % (AUTO) 0 % (0-10); EOSINOPHILS % (AUTO) 0 % (0-10); HEMATOCRIT 32 % (40-54); HEMOGLOBIN 10.1 G/DL (13.3-17.7); LYMPHOCYTES # (AUTO) 2.3 X 10^3 (1.0-4.0); LYMPHOCYTES % (AUTO) 33 % (12-44); MEAN CORPUSCULAR HEMOGLOBIN 30 PG (25-34); MEAN CORPUSCULAR HGB CONC 32 G/DL (32-36); MEAN CORPUSCULAR VOLUME 96 FL (80-99); MEAN PLATELET VOLUME 8.5 FL (7.4-10.4); MONOCYTES # (AUTO) 0.8 X 10^3 (0.0-1.0); MONOCYTES % (AUTO) 12 % (0-12); NEUTROPHILS # (AUTO) 3.7 X 10^3 (1.8-7.8); NEUTROPHILS % (AUTO) 54 % (42-75); PLATELET COUNT 208 10^3/uL (130-400); RED CELL DISTRIBUTION WIDTH 14.9 % (10.0-14.5); WHITE BLOOD COUNT 6.8 10^3/uL (4.3-11.0)
[2019-01-10 05:42] LABS: ALANINE AMINOTRANSFERASE 19 U/L (0-55); ALBUMIN 3.1 GM/DL (3.2-4.5); ALKALINE PHOSPHATASE 178 U/L (40-136); BILIRUBIN,TOTAL 0.3 MG/DL (0.1-1.0); BUN/CREATININE RATIO 18; CALCIUM 9.1 MG/DL (8.5-10.1); CARBON DIOXIDE 24 MMOL/L (21-32); CHLORIDE 99 MMOL/L (98-107); CREATININE SERUM 0.72 MG/DL (0.60-1.30); GFR ESTIMATED > 60; GLUCOSE 119 MG/DL (70-105); POTASSIUM 4.6 MMOL/L (3.6-5.0); SODIUM 135 MMOL/L (135-145); TOTAL PROTEIN 7.7 GM/DL (6.4-8.2)
[2019-01-10 06:00] VITALS: BP 109/70
--- NOTE | 2019-01-10 08:15 | Wound Care Assessment ---
Wound Care Assessment Date Seen by Provider: Jan 10, 2019 Time Seen by Provider: 07:45 Chief Complaint Sacral ulcer. HPI The patient is a 53 year old male with an unstageable pressure ulcer of the sacrum, having more than 50% necrotic tissue at its base. The Wound VAC would be contra-indicated in this setting. Have discussed above findings with Dr. García. Will defer to surgical management of the wound. Quadriplegia. Recreational Drug Use: Yes (15 YEARS AGO) Alcohol Use: Denies Use Review of Systems Cardiovascular: No: Chest Pain Gastrointestinal: No: Abdominal Pain Exam Vital Signs Date Time Temp Pulse Resp B/P (MAP) Pulse Ox O2 Delivery O2 Flow Rate FiO2 01/10/19 06:00 99.6 82 16 109/70 (83) 94 Trach Collar 28.00 6.00 01/10/19 03:14 28 Capillary Refill : Less Than 3 Seconds General Appearance: no apparent distress Cardiovascular: regular rate, rhythm Respiratory: lungs clear Results Laboratory Tests 01/09/19 18:17: Glucometer 96 01/10/19 00:00: Glucometer 175H 01/10/19 05:14: Glucometer 120H 01/10/19 05:17: White Blood Count 6.8, Red Blood Count 3.33L, Hemoglobin 10.1L, Hematocrit 32L, Mean Corpuscular Volume 96, Mean Corpuscular Hemoglobin 30, Mean Corpuscular Hemoglobin Concent 32, Red Cell Distribution Width 14.9H, Platelet Count 208, Mean Platelet Volume 8.5, Neutrophils (%) (Auto) 54, Lymphocytes (%) (Auto) 33, Monocytes (%) (Auto) 12, Eosinophils (%) (Auto) 0, Basophils (%) (Auto) 0, Neutrophils # (Auto) 3.7, Lymphocytes # (Auto) 2.3, Monocytes # (Auto) 0.8, Eosinophils # (Auto) 0.0, Basophils # (Auto) 0.0, Sodium Level 135, Potassium Level 4.6, Chloride Level 99, Carbon Dioxide Level 24, Anion Gap 12, Blood Urea Nitrogen 13, Creatinine 0.72, Estimat Glomerular Filtration Rate > 60, BUN/Creatinine Ratio 18, Glucose Level 119H, Calcium Level 9.1, Corrected Calcium 9.8, Total Bilirubin 0.3, Aspartate Amino Transf (AST/SGOT) 26, Alanine Aminotransferase (ALT/SGPT) 19, Alkaline Phosphatase 178H, Total Protein 7.7, Albumin 3.1L Assessment/Plan/Dx 1. Pressure ulcer, sacrum, unstageable. 2. Quadriplegia. Plan: too much necrotic tissue for wound VAC to be beneficial. Will defer wou nd management to Surgery service. RODO HADDAD MD Jan 10, 2019 08:15
[2019-01-10] MEDS: SENNA W/DOCUSATE (SENOKOT S) TABLET PEG SCH ×2 (08:39→19:50)
--- NOTE | 2019-01-10 08:49 | PM&R H&P / Post Admit Assess ---
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 He was unable to maintain his airway. He was intubated at the scene. He was assessed in the ER by Dr. Vaughan trauma surgeon found to have significant hypotension requiring aggressive IV fluids and pressor therapy but then was assessed that he was likely an spinal cord shock and multiple right rib fractures with flail chest requiring transfer to [facility] trauma surgery which resulted in multiple procedures including tracheostomy due to failing weaning protocol on ventilator, PEG tube placement, spine MRIs confirming C3-C7 spinal cord injury complete with plating of ribs 510 on the right side and right sided chest tube. He was found to have drug screen positive for marijuana and methamphetamine. Neurosurgery was consulted perform decompressive laminectomy on C3-C7 with C4-C5 autograft bone screws and rods. He was diagnosed with Haemophilus influenza while intubated and that treatment was completed. He did have rhabdomyolysis from his injuries requiring aggressive IV fluids but they all resolved. Hyperglycemia was diagnosed and he was started on insulin and elevated liver enzymes have improved since admission and hepatitis viral panel along with HIV were negative. He did receive 2 units of packed red blood cells hospitalized. Currently patient is requiring wound care consult by Dr. Craven and general surgery consultation by Dr. García because additional debridement of the sacral decubitus ulcer will be required. He will remain with the c-collar in place until seen Dr. Nesbitt on 01/30/19. Hemoglobin today is 10.1. Dr. Arcos's been consulted for pulmonary issues which she is having increased secretions today in addition urology will be consulted for Goodman catheter maintenance for neurogenic bladder. I did speak with Dr. Arcos who will panculture the patient and change breathing treatments to clear secretions. Patient remains total care with quadriplegia. Source: patient, RN/MD, old records Exam Limitations: no limitations Date Seen 01/10/19 Time Seen by a Provider: 08:30 Attending Physician Paola Gan DO [facility], [facility]–1983 Referring Physician Date of Admission Jan 09, 2019 at 16:14 Home Medications & Allergies Home Medications Reviewed patient Home Medication Reconciliation performed by pharmacy medication reconciliations automotive glass technician and/or nursing. Patients Allergies have been reviewed. 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) Alcohol Use: Denies Use Alcohol Beverage of Choice: Wine Recreational Drug Use: Yes (15 YEARS AGO) Smoking Status: Former Smoker Type Used: Cigarettes Physical Abuse Screen: No Sexual Abuse: No Recent Foreign Travel: No Contact w/other who traveled: No Recent Hopitalizations: Yes (SPINAL CORD INJURY AND AT [place] 01-05) Recent Infectious Disease Expo: No Immunizations Up To Date Tetanus Booster (TDap): Unknown Pediatric: Yes Date of Pneumonia Vaccine: Sep 04, 2015 Date of Influenza Vaccine: Apr 05, 2017 Seasonal Allergies Seasonal Allergies: Yes (TALL GRASS, ANIMALS) Past Medical History Surgeries: Abdominal, Orthopedic C3-C7 neurosurgery with decompression laminectomy, rib plating right Respiratory: Pneumonia (H flu while [facility] 12/06 [place]) Currently Using CPAP: No Currently Using BIPAP: No Neurological: Neuropathy, Spinal Cord Injury (12/07/18 fall from 3 stories), Traumatic Brain Injury Reproductive: No Sexually Transmitted Disease: No Genitourinary: Bladder Infection Gastrointestinal: Gastroesophageal Reflux, Polyps Musculoskeletal: Chronic Back Pain, Fractures Endocrine: Diabetes, Insulin dep Are Your Blood Sugars Over 250: Yes HEENT: Cataract Psychosocial: Sleep Difficulties, Anxiety History of Blood Disorders: No Adverse Reaction to Blood Mcclellan: No Family History Abdominal aortic aneurysm 03 MOTHER (DOESN'T KNOW MOM'S MEDICAL HISTORY) Cancer 03 FATHER (TESTICULAR) Family history: Diabetes mellitus 03 FATHER Family history: Hypertension 03 FATHER No Family History of: Family history: Alzheimer's disease Family history: Arthritis Family history: Breast disease Family history: Cardiovascular disease Family history: Gastrointestinal disease Family history: Thyroid disorder Hereditary disease History of - respiratory disease Myocardial infarction Parkinson's disease Seizure disorder Stroke AAA, Diabetes, Hypertension Review of Systems Constitutional: see HPI EENTM: no symptoms reported Respiratory: cough, short of breath, other (secretions) Cardiovascular: no symptoms reported Gastrointestinal: no symptoms reported Genitourinary: other (goodman cath) Skin: see HPI, other (decubitus) Psychiatric/Neurological: Anxiety, Weakness All Other Systems Reviewed Negative Unless Noted: Yes Physical Exam Exam Vital Signs Vital Signs Date Time Temp Pulse Resp B/P (MAP) Pulse Ox O2 Delivery O2 Flow Rate FiO2 01/10/19 08:08 93 Trach Collar 6.00 28 01/10/19 06:00 99.6 82 16 109/70 (83) Capillary Refill : Less Than 3 Seconds General Appearance: No Apparent Distress, WD/WN, Chronically ill, Thin HEENT: PERRL/EOMI, Normal ENT Inspection, Pharynx Normal, Moist Mucous Membranes Neck: Full Range of Motion, Normal Inspection, Non Tender, Supple Respiratory: Chest Non Tender, No Accessory Muscle Use, No Respiratory Distress, Crackles, Decreased Breath Sounds, Wheezing, Other (trach in place) Cardiovascular: Regular Rate, Rhythm, No Edema, No Gallop, No JVD, No Murmur Gastrointestinal: Normal Bowel Sounds, No Organomegaly, No Pulsatile Mass, Soft, Other (PEG in place) Back: Normal Inspection, No CVA Tenderness, No Vertebral Tenderness Extremity: Normal Capillary Refill Neurologic/Psychiatric: Alert, Oriented x3, chemical etching processor II-XII Norm as Tested, Depressed Affect, Motor Weakness (bilateral lower extremities and deficits at waist) Skin: Normal Color, Warm/Dry, Other (decubitus ulcer coccyx, right heel ulcer) Lymphatic: No Adenopathy Results Results/Procedures Labs Laboratory Tests 01/10/19 05:17 Patient resulted labs reviewed. 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 Nesbitt at [facility] Rib plating on the right Closed right scapular fracture Diabetes mellitus [id number] requiring insulin PEG tube status Trach dependent Anemia Hypertension DVT prophylaxis with Lovenox Neurogenic bladder requiring Goodman catheter Decubitus ulcer in need of debridement OJ Plan: Broad-spectrum antibiotics for decubitus ulcer infection Debridement per Dr. Li and Dr. Craven Wound VAC after debridement Maintain on Lovenox Consult urology Rehabilitation to focus on transfers and lessen burden on caretakers (1) Post-traumatic quadriplegia (2) Shock due to spinal cord injury (3) Right rib fracture (4) Neurogenic bladder (5) Decubitus ulcer of coccygeal region, stage 4 (6) Tracheostomy dependent (7) PEG (percutaneous endoscopic gastrostomy) status (8) Right pulmonary contusion (9) Closed right scapular fracture (10) Anemia (11) HLD (hyperlipidemia) (12) DVT prophylaxis (13) Chronic pain (14) Anxiety (15) Illicit drug use (16) Type 2 diabetes mellitus with hyperglycemia (17) Malignant hypertension Post Admission Physician Asses Date seen by provider: Jan 10, 2019 Time seen by provider: 08:30 Admisison Dx: (1) Post-traumatic quadriplegia The preadmission screen agrees with the post admission assessment that the patient is a good candidate for inpatient rehabilitation. The patient will have a comprehensive program of inpatient rehabilitation with a goal of maximizing level of functional independence prior to discharge home with family versus nursing facility. The patient will have PT/OT ninety minutes per day, each discipline, five days a week for gait, strengthening, conditioning, balance, ADLs, any patient/family/caregiver training as necessary. Speech therapy to do cognitive assessment and treat as indicated. Rehabilitation nursing to assist with bowel, bladder, skin, wound care, medication administration, pain management. Laundry Pricing Clerk to assist with discharge planning, community reentry. SCD's for DVT prophylaxis. He appears to be well motivated to participate in three hours of therapy a day. He should be able to tolerate three hours of therapy a day from a medical standpoint. He should benefit from the three hours of therapy a day. He has a reasonable discharge plan, reasonable discharge rehabilitation goals and a supportive family. He has various comorbidities that need to be closely monitored with medications and treatments adjusted on a daily basis as needed. These include: see list Barriers to discharge for this patient who had been independent prior to this are for him to be modified independent to supervision for ADLs and mobility skills prior to discharge home with family versus nursing facility, so as to l essen the burden of the caregivers. Risks for this patient include: 1. Fall 2. Fracture 3. DVT 4. Pulmonary embolism 5. Wound infection 6. Skin breakdown 7. Contractures 8. Poorly controlled pain 9. Urinary retention 10. UTI 11. Respiratory infection 12. Aspiration Estimated Length of Stay: 10 ays Prognosis: Rehab prognosis appears good for goal of discharge home with family versus nursing facility modified independent to supervision for ADLs and mobility skills. PAOLA GAN DO Jan 10, 2019 08:49
--- NOTE | 2019-01-10 09:41 | Pulmonary Consultation ---
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 Pt was intubated at scene then transferred to [facility]. Pt had multiple surgeries including tracheostomy secondary to prolonged mechanical ventilation. Spinal MRIs confirmed C3-C7 spinal cord injury. Pt had plating of multiple right ribs 510. He was found to have drug screen positive for marijuana and methamphetamine. s/p decompressive laminectomy on C3-C7 with C4-C5 autograft bone screws and rods.Pt is also s/p rhabdomyolysis. hepatitis viral panel along with HIV were negative. He will remain with the c-collar in place until seen Dr. Nesbitt on 01/30/19. Allergies and Home Medications Allergies Coded Allergies: No Known Drug Allergies (Unverified , 08/25/10) Home Medications Alprazolam 1 Mg Tablet, 1 MG PO HS PRN for SLEEP/ANXIETY, (Reported) Hydrocodone/Acetaminophen 1 Each Tablet, 1 TAB PO TID PRN for PAIN-MODERATE, (Reported) Ibuprofen 800 Mg Tablet, 800 MG PO TID PRN for PAIN-MILD, (Reported) Insulin NPH Hum/Reg Insulin Hm 100 Unit/1 Ml Vial, 25 UNIT SQ BID, (Reported) [place] 3 Polyunsat Fatty Acids 1,000 Mg Cap, 3,000 MG PO DAILY, (Reported) Pregabalin 150 Mg Capsule, 150 MG PO TID, (Reported) Simvastatin 80 Mg Tablet, 80 MG PO HS, (Reported) ON HOLD AT PHARMACY SINCE 09-25-18 (NOT PICKED UP) Past Dxdyufj-Thkktj-Mlsgkz Hx Patient Social History Alcohol Use: Denies Use Alcohol Beverage of Choice: Wine Recreational Drug Use: Yes (15 YEARS AGO) Type Used: Cigarettes Recent Foreign Travel: No Contact w/Someone Who Travel: No Recent Infectious Disease Expo: No Recent Hopitalizations: Yes (SPINAL CORD INJURY AND AT [place] 01-05) Immunizations Up To Date Tetanus Booster (TDap): Unknown PED Vaccines UTD: Yes Date of Pneumonia Vaccine: Sep 04, 2015 Date of Influenza Vaccine: Apr 05, 2017 Seasonal Allergies Seasonal Allergies: Yes (TALL GRASS, ANIMALS) Past Medical History Surgeries: Yes (hernia repair x 2,2 teeth removed,bladder and kidney problems in childhood) Abdominal, Orthopedic Respiratory: Yes (OCCASIONALLY USES INHALER DUE TO OUTSIDE ALLERGENS) COPD Currently Using CPAP: No Currently Using BIPAP: No Cardiac: No Neurological: Yes Neuropathy Reproductive Disorders: No Sexually Transmitted Disease: No Genitourinary: Yes (URINARY FREQUENCY) Bladder Infection Gastrointestinal: Yes Gastroesophageal Reflux, Polyps Musculoskeletal: Yes (LEFT FOOT FX/ORIF; CHRONIC FOOT PAIN--NEUROPATHY) Chronic Back Pain, Fractures Endocrine: Yes Diabetes, Insulin dep Are Your Blood Sugars Over 250: Yes HEENT: Yes Cataract Cancer: No Psychosocial: Yes Sleep Difficulties, Anxiety Integumentary: No Blood Disorders: No Adverse Reaction/Blood Tranf: No Family Medical History Abdominal aortic aneurysm 03 MOTHER (DOESN'T KNOW MOM'S MEDICAL HISTORY) Cancer 03 FATHER (TESTICULAR) Family history: Diabetes mellitus 03 FATHER Family history: Hypertension 03 FATHER No Family History of: Family history: Alzheimer's disease Family history: Arthritis Family history: Breast disease Family history: Cardiovascular disease Family history: Gastrointestinal disease Family history: Thyroid disorder Hereditary disease History of - respiratory disease Myocardial infarction Parkinson's disease Seizure disorder Stroke AAA, Diabetes, Hypertension Review of Systems Time Seen by Provider: 12:45 Constitutional: Weakness, Malaise; No: Fever, Chills, Sweats, Other Eyes: No: Pain, Vision change, Conjunctivae inflammation, Eyelid inflammation, Other, Redness Sepsis Event Evaluation Height, Weight, BMI Height: 5'3.00" Weight: 147lbs. 8.0oz. 66.510728to; 26.1 BMI Method:Stated Exam Exam Vital Signs Date Time Temp Pulse Resp B/P (MAP) Pulse Ox O2 Delivery O2 Flow Rate FiO2 01/10/19 08:08 93 Trach Collar 6.00 28 01/10/19 06:00 99.6 82 16 109/70 (83) 94 Trach Collar 28.00 6.00 01/10/19 03:14 93 Trach Collar 6.00 28 01/10/19 00:51 96 Trach Collar 6.00 28 01/09/19 21:19 Trach Collar 6.00 28 01/09/19 20:43 90 Trach Collar 6.00 28 01/09/19 19:35 Trach Collar 6.00 28 01/09/19 18:46 Trach Collar 01/09/19 16:37 97.8 62 24 124/80 (95) 99 Trach Collar 28.00 6.00 01/09/19 16:30 97.8 62 24 124/80 (95) 99 Trach Collar 28.00 6.00 01/09/19 16:27 97.8 62 24 124/80 99 Trach Collar 6.00 28.00 I & O 01/10/19 07:00 Intake Total 1362.5 ml Output Total 1900 ml Balance -537.5 ml Height & Weight Height: 5'3.00" Weight: 147lbs. 8.0oz. 66.391398wb; 26.1 BMI Method:Stated General Appearance: No Apparent Distress, WD/WN, Chronically ill HEENT: PERRL/EOMI, Pharynx Normal Neck: Full Range of Motion, Non Tender, Supple Respiratory: Chest Non Tender, No Accessory Muscle Use, No Respiratory Distress, Decreased Breath Sounds Cardiovascular: Regular Rate, Rhythm, No Edema Capillary Refill: Less Than 3 Seconds Gastrointestinal: normal bowel sounds, non tender, soft Extremity: Normal Capillary Refill, Non Tender Neurologic/Psychiatric: Alert Skin: Normal Color, Warm/Dry Results Lab Laboratory Tests 01/10/19 05:17 Assessment/Plan Assessment/Plan 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 Nesbitt at [facility] Tracheostomy -PT currently has uncuffed trach tube -Check CXR -Check sputum culture and labs Decubitus ulcer stage 4 -wound care Rib plating on the right Closed right scapular fracture Diabetes mellitus [id number] requiring insulin PEG tube status -Swallow eval pending Anemia -Monitor Hypertension Neurogenic bladder with Zamarripa catheter Decubitus ulcer in need of debridement -Wound vac -Surgery following Illicit drug use ALONDRA HUSSEIN DO Jan 10, 2019 09:41
--- NOTE | 2019-01-10 09:42 | Physical Therapy Evaluation ---
PT Evaluation-General Medical Diagnosis Admission Date Jan 09, 2019 at 16:14 Medical Diagnosis: SCI Onset Date: Nov 24, 2018 Therapy Diagnosis Therapy Diagnosis: impaired mobility, strength, endurance, balance, quadriplegia Height/Weight Height (Feet): 5 Height (Inches): 3.00 Weight (Pounds): 147 Weight (Ounces): 8.0 Precautions Precautions/Isolations: Fall Prevention, Standard Precautions, Pressure Ulcer Referral Physician: Paola Cordero DO Reason for Referral: Evaluation/Treatment Medical History Additional Medical History Past Medical History Surgeries: Abdominal, Orthopedic Currently Using CPAP: No Currently Using BIPAP: No Neurological: Neuropathy Reproductive: No Sexually Transmitted Disease: No Genitourinary: Bladder Infection Gastrointestinal: Gastroesophageal Reflux, Polyps Musculoskeletal: Chronic Back Pain, Fractures Endocrine: Diabetes, Insulin dep Are Your Blood Sugars Over 250: Yes HEENT: Cataract Psychosocial: Sleep Difficulties, Anxiety History of Blood Disorders: No Adverse Reaction to Blood Mcclellan: No Reviewed History: Yes Social History Home: Single Level Current Living Status: Spouse Has 2 steps to enter his home, can have his family build a ramp. Prior/Core FIM Prior Level of Function Therapy Code Descriptions/Definitions Functional [place] Measure: 0=Not Assessed/NA 4=Minimal Assistance 1=Total Assistance 5=Supervision or Setup 2=Maximal Assistance 6=Modified [place] 3=Moderate Assistance 7=Complete [place] Therapy Quality Codes: 6 Independent with activity with or without an assistive device 5 Patient requires set up or clean up by helper. Patient completes activity by themselves 4 Supervision or touching assist (CGA). [place] provide cues , steadying assist 3 The helper provides less than half the effort to complete the activity 2 The helper provides more than half the effort to complete the activity 1 Dependent. The helper does all the effort to complete an activity 7 Patient refused to complete or attempt activity 9 The patient did not perform the activity before the current illness or injury 88 Not attempted due to Medical conditions or safety concerns Functional Abilities and Goals: Independent: Patient completed the activities by him/herself, with or without an assistive device, with no assistance from a helper. Needed Some Help: Patient needed partial assistance from another person to complete activities. Dependent: A helper completed the activities for the patient. Unknown: Not Applicable: Bed Mobility: 7 Transfers (B,C,W/C) (FIM): 7 Gait: 7 Stairs: 7 Indoor Mobility (Ambulation): Independent Stairs: Independent PT Evaluation-Current Subjective Patient in bed pre tx, agrees to PT, has some unrated pain in his shoulders and neck. Patient has a hard cervical collar on and has a trach. Will co-treat with OT for part of this treatment due to poor patient strength, endurance, sitting balance, impaired UE and LE and need to position UE and LE during activity and for safety. Objective Patient Orientation: Person, Place, Situation cervical collar ROM/Strength ROM Lower Extremities WNL Strength Upper Extremities Patient has 3+/5 biceps on both sides, 1/5 triceps and 1/5 wrist extension on the right and none on the left. Further testing will be done, he needs an SUDHA assessment done. Strenght Lower Extremities NA, complete spinal cord injury, no voluntary movement in LE, he did not have any muscle spasms in his legs either during treatment. Integumentary/Posture Bowel Incontinence: Yes Bladder Incontinence: Zamarripa Cath Neuromuscular (Tone, Coordination, Reflexes) decreased muscle tone in BLE Transfers Therapy Code Descriptions/Definitions Functional [place] Measure: 0=Not Assessed/NA 4=Minimal Assistance 1=Total Assistance 5=Supervision or Setup 2=Maximal Assistance 6=Modified [place] 3=Moderate Assistance 7=Complete [place] Therapy Quality Codes: 6 Independent with activity with or without an assistive device 5 Patient requires set up or clean up by helper. Patient completes activity by themselves 4 Supervision or touching assist (CGA). [place] provide cues , steadying assist 3 The helper provides less than half the effort to complete the activity 2 The helper provides more than half the effort to complete the activity 1 Dependent. The helper does all the effort to complete an activity 7 Patient refused to complete or attempt activity 9 The patient did not perform the activity before the current illness or injury 88 Not attempted due to Medical conditions or safety concerns Transfers (B, C, W/C) (FIM): 1 Scootin Rollin Roll Left to Right (QC): 1 Supine to/from Sit: 1 bed t/f WC(FIM only if WC use): 1 Sit to Lying (QC): 1 Lying to Sitting/Side of Bed(Q: 1 Chair/Vjs-el-Cuqai Xfer(QC): 1 Car Transfer (QC): 1 Patient dependent for bed mobility and transfers, uses a jareth for bed to chair transfer. Gait Does the Patient Walk?: No and Walking Goal NOT indicated Wheelchair Training Does the Pt Use a Wheelchair?: Yes Wheelchair (FIM): 1 Distance: 300' Wheelchair Level of Assist: 1 Type of Wheelchair: Manual Patient is dependent for wheelchair mobility, he does not have enough arm strength to propel a manual wheelchair, rn social work is working on trying to get him a power chair to see if he can drive one. Stairs If not tested on admit;explain Patient non-ambulatory Balance Sitting Static: Poor Sitting Dynamic: Poor Standing Static: Poor Standing Dynamic: Poor Treatment Patient had to roll several times for jareth sling and sheet positioning, he was dependent for this. Assessment/Needs Patient has impaired mobility, strength, endurance, balance, quadriplegia. He is dependent for all mobility. Rehab Potential: Poor PT Short Term Goals Short Term Goals Time Frame: Jan 17, 2019 Transfers (B,C,W/C) (FIM): 1 Wheelchair (FIM): 4 (if he can get a power chair) Wheelchair Distance: 150' Wheelchair Level of Assist: 4 PT Prison Goals Prison Goals PT Prison Goals Time Frame: Jan 31, 2019 Transfers (B,C,W/C) (FIM): 1 Sit to Lying (QC): 1 Lying-Sitting on Side/Bed(QC): 1 Rollin Roll Left to Right (QC): 2 Chair/Vat-ud-Bgphm Xfer(QC): 1 Car Transfer (QC): 1 Wheelchair (FIM): 5 (if he can get a power chair) Distance: 150' Wheelchair Level of Assist: 5 Wheel 50 feet with 2 turns (QC: 4 PT Plan Problem List Problem List: Activity Tolerance, Functional Strength, Safety, Balance, Transfer, Bed Mobility, ROM Treatment/Plan Treatment Plan: Continue Plan of Care Treatment Plan: Bed Mobility, Concurrent Therapy, Education, Functional Activity Estella, Functional Strength, Group Therapy, Safety, Therapeutic Exercise, Transfers Treatment Duration: Jan 31, 2019 Frequency: At least 5 of 7 days/Wk (IRF) Estimated Hrs Per Day: 1.5 hours per day Patient and/or Family Agrees t: Yes Safety Risks/Education Patient Education: Transfer Techniques, Correct Positioning, W/C Management, Safety Issues Teaching Recipient: Patient Teaching Methods: Demonstration, Discussion Response to Teaching: Reinforcement Needed Discharge Recommendations Plan Patient will perform bed mobility and transfer training, balance and endurance training, functional strengthening, and education, to improve functional mobility and independence at home. Therapy D/C Recommendations: Home w/ Family Support, Usp (TCU/NH) Time/GCodes Time In: 800 Time Out: 939 Total Billed Treatment Time: 90 Total Billed Treatment 1 visit EVM 10' FA 80' PT eval from [id number], OT eval from [id number], co-treat with OT from [id number]. PT performed bed mobility, transfers, setting up manual wheelchair, wheelchair mobility, LE positioning and rolling, OT performed UE positioning, some bathing, assist with bed mobility and transfers. ADRIENNE DURAN PT Jan 10, 2019 09:42
[2019-01-10] MEDS ORDERED: IBUP-1780 PO (09:59)
[2019-01-10] MEDS ORDERED: HUM100VI15 SQ (09:59)
[2019-01-10] MEDS ORDERED: OMG1KC PO (09:59)
[2019-01-10] MEDS ORDERED: HYDR-3820 PO (09:59)
[2019-01-10] MEDS ORDERED: PREG150C PO (09:59)
[2019-01-10] MEDS ORDERED: SIMV80TA21 PO (10:01)
--- NOTE | 2019-01-10 10:02 | Occupational Therapy Eval ---
OT Evaluation-General/PLF Medical Diagnosis Admission Date Jan 09, 2019 at 16:14 Medical Diagnosis: SCI Onset Date: Nov 24, 2018 Therapy Diagnosis Therapy Diagnosis: Weakness, Decreased ADL skills Height/Weight Height (Feet): 5 Height (Inches): 3.00 Weight (Pounds): 147 Weight (Ounces): 8.0 Precautions Precautions/Isolations: Fall Prevention, Standard Precautions, Pressure Ulcer Safety Interventions: Reorient-PRN Referral Physician: Paola Cordero DO Referral Reason: Activity Tolerance, Self Care, Evaluation/Treatment, Strengthening/ROM Medical History Current History Pt. feel from 35 feet in air. Sustained spinal cord injury at [id number]. Bilateral pulmonary contusion. Hemopneumothorax. Reviewed History: Yes Social History Home: Single Level Current Living Status: Spouse (And two young sons.) Entry Into Home: Stairs With Railing Steps Into Home: 2 ADL-Prior Level of Function Therapy Code Descriptions/Definitions Functional [place] Measure: 0=Not Assessed/NA 4=Minimal Assistance 1=Total Assistance 5=Supervision or Setup 2=Maximal Assistance 6=Modified [place] 3=Moderate Assistance 7=Complete [place] Therapy Quality Codes: 6 Independent with activity with or without an assistive device 5 Patient requires set up or clean up by helper. Patient completes activity by themselves 4 Supervision or touching assist (CGA). [place] provide cues , steadying assist 3 The helper provides less than half the effort to complete the activity 2 The helper provides more than half the effort to complete the activity 1 Dependent. The helper does all the effort to complete an activity 7 Patient refused to complete or attempt activity 9 The patient did not perform the activity before the current illness or injury 88 Not attempted due to Medical conditions or safety concerns Functional Abilities and Goals: Independent: Patient completed the activities by him/herself, with or without an assistive device, with no assistance from a helper. Needed Some Help: Patient needed partial assistance from another person to complete activities. Dependent: A helper completed the activities for the patient. Unknown: Not Applicable: ADL PLOF Comments Pt. was fully independent with daily skills. 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 Pt. drives and lives with spouse and two sons, whom are 15, and 17 years old. Self Care: Independent Functional Cognition: Independent DME/Equipment Comments Pt. does not have any equipment at home. Did not need it before this hospitalization. 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 Drive Self: Yes OT Current Status Subjective Pt. reports that his arm is uncomfortable in his position, and that he does not like wearing his collar. Spoke with nursing and will check about the collar. Re-positioned pt. in bed. No pain reported. Appearance Pt. is in his bed. Agrees to work with therapy. Mental Status/Objective Patient Orientation: Person, Place, Time, Situation Attachments: IV Current Hand Dominance: Right Upper Extremity ROM Pt. demonstrates no AROM to bilateral shoulders. Pt. does have slight AROM in bilateral elbows, but is unable to functionally hold in position. Slight wrist extension noted in left wrist. No extension in right. Pt. is able to deviate to ulna and radius with effort but unable to hold in these positions. No active movement noted in fingers, except for tenodesis type movement in left wrist with slight wrist extension. Passively- WFL Upper Extremity Strength Pt. demonstrates 2+/5 in right bicep with flexion, and 2/5 left bicep in flexion. ADL-Treatment Eating (FIM): 1 (Peg) Eating (QC): 1 Grooming (FIM): 1 Bathing (FIM): 1 (Required dependent assist to bathe in bed.) Shower/Bathe Self (QC): 1 Lower Body Dressing (FIM): 1 Lower Body Dressing (QC): 1 On/Off Footwear (QC): 1 Toileting (FIM): 1 Toileting Hygiene (QC): 1 Transfers (B, C, W/C) (FIM): 1 Other Treatments OT/PT completed co-treatment with pt. due to pt's activity level and level of ability. Pt. demonstrates very little movement in UE, and no movement in core or LE. OT facilitated ADL skills and positioning, while PT focused on positioning and transfers. Each task required dependent skilled assist of two therapists. OT/PT assessed skin areas with wound care assist in bed. Pt. demonstrates significant wound on coccyx area. Nursing aware of this, as well as physician. Transferred via jareth lift to chair. Pt. has on ruby j collar and this brace is uncomfortable for him. OT assisted with positioning for clearance of it shifting on neck. Pt. educated about therapy goals and OT/PT specific goals. Went outside in wheelchair for fresh air, as pt. has not been outside since his initial accident. Wound care had obtained roho cushion for pt. Went back to bed and transferred to bed via jareth. OT completed bed bath with dependent assist. All needs met and pt. positioned on right side. Education OT Patient Education: Correct positioning, Modified ADL techniques, Progress toward Goal/Update tx plan, Purpose of tx/functional activities, Reviewed precautions, Rehab process, Transfer techniques Teaching Recipient: Patient Teaching Methods: Demonstration, Discussion Response to Teaching: Verbalize Understanding, Return Demonstration OT Short Term Goals Short Term Goals Time Frame: Jan 24, 2019 Grooming(FIM): 2 (with AE) Upper Body Dressing(FIM): 2 Transfers (B,C,W/C) (FIM): 1 Additional Short Term Goals: 3-ImproveStrength/Estella 1=Demonstrate adherence to instructed precautions during ADL tasks. 2=Patient will verbalize/demonstrate understanding of assistive devices/modifications for ADL. 3=Patient will improve strength/tolerance for activity to enable patient to perform ADL's. Therapy will begin family training to initiate discharge home. Goals will be made at that time for equipment needs and family ability. OT Fci Goals Fci Goals Time Frame: Feb 14, 2019 Eating (FIM): 3 Eating (QC): 3 Groomin Oral Hygiene (QC): 3 Upper Body Dressing(FIM): 3 Additional Goals: 3-ImproveStrength/Estella 1=Demonstrate adherence to instructed precautions during ADL tasks. 2=Patient will verbalize/demonstrate understanding of assistive devices/modifications for ADL. 3=Patient will improve strength/tolerance for activity to enable patient to perform ADL's. Family will be fully trained and capable to assist pt. as needed for discharge home. Equipment needs will be in place. OT Education/Plan Problem List/Assessment Assessment: Decreased Activ Tolerance, Decreased UE Strength, Dependent Transfers, Impaired Bed Mobility, Impaired Coordination, Impaired Funct Balance, Impaired I ADL's, Impaired Self-Care Skills, Restricted Funct UE ROM Discharge Recommendations Plan/Recommendations: Continue POC Therapy D/C Recommendations: 24 hr Supervision Comment Equipment needs to be determined. Treatment Plan/Plan of Care Treatment,Training & Education: Yes Patient would benefit from OT for education, treatment and training to promote independence in ADL's, mobility, safety and/or upper extremity function for ADL's. Plan of Care: ADL Retraining, Caregiver Training, Functional Mobility, Group Exercise/Act as Ind, UE Funct Exercise/Act, UE Neuromus Re-Ed/Coord Treatment Duration: Feb 14, 2019 Frequency: At least 5 of 7 days/Wk (IRF) Estimated Hrs Per Day: 1.5 hours per day Agreement: Yes Rehab Potential: Guarded Time/GCodes Start Time: 08:10 Stop Time: 09:40 Total Time Billed (hr/min): 90 Billed Treatment Time 4005-1604 1, EVH x 10minutes OT eval [id number] ADL x 15minutes, FA x 65minutes Partial co-treat with PT. Please see above note for designated roles. SHEYLA PETERSON OT Jan 10, 2019 10:02
[2019-01-10 10:03] LABS: ABG BASE EXCESS 3.5 MMOL/L (-2.5-2.5); ABG OXYGEN SATURATION 97 % (94-100); ABG PCO2 39 MMHG (35-45); ABG PH 7.46 (7.37-7.43); ABG PO2 78 MMHG (79-93); ABG TCO2 28.6 MMOL/L (21.0-31.0)
[2019-01-10 10:08] LABS: ALLENS TEST YES-POS; INSPIRED O2 TRACH 6 L 28%; PATIENT TEMP 96.8; VENTILATOR NO
[2019-01-10] MEDS: APAP 325 MG/10.15 ML LIQ (TYLENOL) UDC PEG PRN ×2 (10:28→18:45)
[2019-01-10] MEDS: POT PHOS/NA PHOS (K-PHOS NEUTRAL) PEG SCH ×2 (10:28→20:01)
[2019-01-10] MEDS: FAMOTIDINE 20 MG (PEPCID) TABLET PEG SCH ×2 (10:28→20:01)
--- NOTE | 2019-01-10 10:32 | Diagnostic Imaging Report ---
INDICATION: Shortness of breath FINDINGS: ET tube tip projects at the lower thoracic trachea level. Left PICC line at the lower SVC near the cavoatrial junction in good alignment. Postsurgical changes to multiple consecutive right ribs present with what appears to be anatomic or near-anatomic alignment of the treated levels. Additional upper right rib fractures unchanged. Widening of the right AC joint unchanged. No pneumothorax. IMPRESSION: Improved alignment of multiple intervally treated right rib fractures. Left PICC line at the lower SVC in good alignment. No pneumothorax. Not mentioned above known left scapular fracture. Dictated by: Dictated on workstation # [id number]
[2019-01-10 11:04] LABS: BILIRUBIN,URINE NEGATIVE (NEGATIVE); CLARITY,URINE CLEAR; COLOR,URINE YELLOW; GLUCOSE, URINE (UA) NEGATIVE (NEGATIVE); KETONES,URINE NEGATIVE (NEGATIVE); LEUKOCYTE ESTERASE ,URINE NEGATIVE (NEGATIVE); NITRITE,URINE NEGATIVE (NEGATIVE); PH,URINE 8 (5-9); PROTEIN,URINE 1+ (NEGATIVE); UROBILINOGEN,URINE 4 MG/DL (NORMAL)
[2019-01-10 11:14] LABS: BACTERIA,URINE NEGATIVE /HPF; HYALINE CASTS, URINE RARE /LPF; RBC,URINE RARE /HPF; SQUAMOUS EPITHELIAL CELL,UR RARE /HPF
[2019-01-10] MEDS: aCETylcysteine 20% (MUCOMYST) 30ML SOLN VIAL INH SCH ×5 (11:29→22:26)
[2019-01-10] MEDS: RT-ALBUTEROL/IPRATROPIUM 3 ML (DUONEB) VIAL INH SCH ×5 (11:29→22:26)
[2019-01-10] MEDS: MIDODRINE 10 MG (PROAMATINE) TAB PO SCH ×4 (11:32→20:02)
[2019-01-10] MEDS: ENOXAPARIN 40 MG/0.4 ML (LOVENOX) SYR SC SCH (14:56)
--- NOTE | 2019-01-10 15:15 | NUR ---
WIRE COMMUNICATIONS ENGINEER met with patient to complete initial assessment. Patient was alert and oriented and agreeable to assessment. Patient admitted to a [facility] from [facility] following a traumatic injury after sustaining a fall from third floor scaffolding. Patient, and 2 teenage sons reside in a one level home in [place], [place]. Family has now built a ramp for patient access into the home. Home currently has a tub shower; however, intentions are to remodel bathroom for large walk in shower. Patient states most doors in the home are 30-36 inches. 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 PCP identified as Katerin Garcia NP at [facility]; however, now that patient has applied for [facility], they plan to seek an alternative physician. Primary contact identified as spouse, Susan at [phone]. Patient also identifies large community support. At this time patient admits with [place] Medicaid pending. This application and disability application were filed at [facility] prior to admission. Patient spouse completed a disability hearing on 01/09, this was approved. Based on pending status insurance, WIRE COMMUNICATIONS ENGINEER reached out to [place] assistive [employer] to inquire about equipment needs. Through [employer], WIRE COMMUNICATIONS ENGINEER was able to secure a power chair, jareth lift and potential hospital bed and roll in shower chair. WIRE COMMUNICATIONS ENGINEER was also able to arrange a phone assessment with patient's spouse for tomorrow with Jeanine MONTERROSO to complete an application for funding for a sip and blow attachment to power chair. As Team conference was held this day, WIRE COMMUNICATIONS ENGINEER reviewed recommendations of reevaluation at next team conference on . Patient is agreeable to this. WIRE COMMUNICATIONS ENGINEER will continue to follow for additional needs
--- NOTE | 2019-01-10 15:43 | ST Cognitive Linguistic Eval ---
Speech Evaluation-General Medical Diagnosis SCI Onset Date: Nov 24, 2018 Therapy Diagnosis Therapy Diagnosis: Cognitive-communication Precautions Precautions: Fall, Pressure Ulcer Precautions/Isolations: Fall Prevention, Standard Precautions, Pressure Ulcer Referral Referring Physician: Dr. 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 Subjective The patient was compliant and pleasant during the cognitive evaluation. Language Eval: Auditory Comprehends Simple Yes/No Ques: Functional Indent/Objects Multiple Nguyen: Functional Ident/Pics in Multiple Nguyen: Functional Follows 1-Step Commands: Functional Follows Complex Directions: Mild Follows General Conversations: Mild Language Eval: Verbal Language Completes Spontaneous Greeting: Functional Produces Auto, Serial Info: Functional Imitates Simple Words/Phrases: Functional Word Finding: Mild Requests Basic Needs: Functional States Basic Personal Info: Mild Expresses Complex Ideas: Moderate Cognitive Patient Orientation The patient is oriented to all concepts, with temporal being intermittent Objective Cognitive Domain Attention: WNL Memory: Mild Problem Solving: Mild Executive Functions: Moderate Visuospatial Skills: Mild Composite Severity Rating: Moderate Clock Drawing Severity Rating: Severe Score: 22/30 Range: Mild to moderate Objective Formal/Standardized Tests [facility] Mental Status ([facility]) Results The patient scored 22/30 which is mild to moderate range of function. Oral Motor/Speech Production Within functional limits with trach speaking valve and hard cervical collar on. Impression The patient is a pleasant 53 year old man who was admitted to the ARU following a spinal injury which resulted in quadriplegia. The patient was referred for a cognitive evaluation which was completed at bedside. The patient scored a 22/30 on the SLUMS which falls in the mild to moderate range of function. The patient will receive cognitive therapy with focus on safety awareness due to his medical status and ability to return home with his . Communication/Social Cognition Comprehension: 6 Expression: 6 Social Interaction: 6 Problem Solvin Memory: 4 Speech Patient Assess Expression of Ideas/Wants: Exhibits (3) Understanding Verbal Content: Usually Understands (3) Brief Interview-Mental Status: Yes Repetition of Three Words: Three (3) Temporal Orientation: Year: Correct (3) Temporal Orientation: Month: Missed by 6 days-1 month (1) Temporal Orientation: Day: Correct (1) Recall : Wear to say "Sock": Yes, no cue required (2) Recall : Color: No, could not recall (0) Recall : Bed: No, could not recall (0) Add-Enter 99 if pt cannot comp: 99 Memory/Recall Ability: Current season, That he or she is in a hsp/hsp unit Speech Short Term Goals Short Term Goals Short Term Goals 1) The patient will complete memory tasks related to his daily needs at 90% or greater with minimal cues. 2) The patient will complete problem solving tasks related to his daily needs at 90% or greater with minimal cues. 3) The patient will complete safety awareness tasks related to his daily needs at 90% or greater with minimal cues. Speech Digital Camera Technician Goals Fpc Goals The patient will improve his cognitive status for a safe return home. Speech-Plan Patient/Family Goals Patient/Family Goals: The patient plans to return home with his post rehab. Treatment Plan Speech Therapy Treatment Plan: Continue Plan of Care The patient will receive skilled ST services with focus on cognitive function. Treatment Duration: Jan 17, 2019 Frequency: 5 times per week Estimated Hrs Per Day: .5 hour per day Rehab Potential: Guarded Barriers to Learning: The patient's medical status. Pt/Family Agrees to Plan: Yes Safety Risks/Education Teaching Recipient: Patient Teaching Methods: Discussion Response to Teaching: Verbalize Understanding Education Topics Provided: Effective communication of his wants/needs Time Speech Therapy Time In: 10:30 Speech Therapy Time Out: 10:45 Total Billed Time: 15 Billed Treatment Time 1, SPSNDCOMP BRANDIE Moseley Jan 10, 2019 15:43
--- NOTE | 2019-01-10 15:55 | ST Dysphagia Evaluation ---
Speech Evaluation-General Medical Diagnosis SCI Onset Date: Nov 24, 2018 Therapy Diagnosis Therapy Diagnosis: Oropharyngeal Dysphagia Precautions Precautions: Fall, Pressure Ulcer, Aspiration Precautions/Isolations: Aspiration, Fall Prevention, Standard Precautions, Pressure Ulcer Referral Referring Physician: Dr. 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 Subjective The patient was pleasant and cooperative with the Bedside Dysphagia Evaluation. Cognitive Status The patient is oriented to all concepts with temporal being intermittent Oral Motor Skills Dentition: Natural, Tumbled, Stained Oral Expression Ability: Mild Impairment Tracheostomy Type: Uncuffed, Speaking Valve Other Contributing Factors: PEG Tube Voice Voice Phonatory-Based Quality: Breathy Voice Pitch: Mildly Low Voice Loudness: Mildly Soft/Quiet Oral-Facial Assessment Oral-Facial Dentition: Normal Labial Seal Description: Normal Smile: Normal Puff Cheeks: Reduced Strength Lingual Protrusion: Normal Lingual ROM: Normal Lingual Strength: Normal Pharynx Velopharyngeal Move.: Normal Volitional Dry Swallow: Yes Can Clear Throat Volitionally: Yes Dysphagia Evaluation Consistencies Presented: Thin Liquid, Mechanical Soft, Pureed The patient exhibits normal function at the oral stage. Pharyngeal Phase: Multiple Swallow Attempts The patient exhibits grossly normal function at the pharyngeal stage. Dietary Recommendations: Pureed Liquid Recommendations: Thin Swallowing Precautions: Alternate Liquids/Solids, Double Swallow, Decreased Sonia us 1/2 Tsp, Oral Supervision Staff, Oral Supervision OUTDOOR GUIDE, Small Bites and Sips, Sitting Upright 90 Degrees, Sitting 90 Degrees 30 Post Intake The patient will receive his primary hydration/nutrition via PEG tube until he is able to consume quantities of each to support his needs by mouth. Dysphagia Evaluation Summary The patient is a 53 year old man who was admitted to the ARU for skilled therapy prior to his return home. The patient suffered a SCI from a three story fall. He is now a quadriplegic and requires assistance for all of his needs. He is currently trached with a speaking valve and has a hard cervical collar. He receives his nutrition and hydration via PEG tube at this time. He completed the BDE this morning with sips of thin water in 1/2 tsp increments and small sips via straw without difficulty. He was given trials of 1/2 tsp puree x3 without incident. He was given trial of 1/2 tsp mechanical soft without difficulty as well. He was given his meds crushed in applesauce by the nurse with clinician present without difficulty. The nurse also had him drink his liquid Tylenol 1/2 tsp at a time without difficulty noted. At this time the patient will continue to receive nutrition/hydration maintenance via PEG tube with increased trials of puree and thin liquids throughout the day. The patient is expected to do better with intake s/p removal of the hard collar. Barriers to Learning The patient's medical status Speech Short Term Goals Short Term Goals Short Term Goals 1) The patient will complete memory tasks related to his daily needs at 90% or greater with minimal cues. 2) The patient will complete problem solving tasks related to his daily needs at 90% or greater with minimal cues. 3) The patient will complete safety awareness tasks related to his daily needs at 90% or greater with minimal cues. 4) The patient will tolerate least restrictive diet without s/s of aspiration with 90% or greater. 5) The patient will demonstrate compliance of utilization of compensatory strategies as trained at 90% or greater with minimal cues. Speech Custodial Goals Custodial Goals The patient will improve his cognitive status for a safe return home. The patient will maintain adequate nutrition/hydration via safe effective swallow function and/or PEG tube. Speech-Plan Patient/Family Goals Patient/Family Goals: The patient plans on returning home with his post rehab. Treatment Plan Speech Therapy Treatment Plan: Continue Plan of Care The patient will receive skilled ST for dysphagia. Treatment Duration: Jan 17, 2019 Frequency: 5 times per week Estimated Hrs Per Day: .5 hour per day Rehab Potential: Guarded Barriers to Learning: New onset quadriplegia Pt/Family Agrees to Plan: Yes Safety Risks/Education Teaching Recipient: Patient Teaching Methods: Demonstration, Discussion Response to Teaching: Verbalize Understanding, Return Demonstration Education Topics Provided: Safety of oral intake and diet level Time Speech Therapy Time In: 10:45 Speech Therapy Time Out: 11:00 Total Billed Time: 15 Billed Treatment Time 1, BRANDIE Williamson Jan 10, 2019 15:55
[2019-01-10] MEDS: COLLAGENASE 30 GM (SANTYL) TUBE TP SCH (16:23)
--- NOTE | 2019-01-10 17:23 | Consultation - Surgery ---
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 He was unable to maintain his airway. He was intubated at the scene. He was assessed in the ER by Dr. Alamo trauma surgeon found to have significant hypotension requiring aggressive IV fluids and pressor therapy but then was assessed that he was likely an spinal cord shock and multiple right rib fractures with flail chest requiring transfer to [facility] trauma surgery which resulted in multiple procedures including tracheostomy due to failing weaning protocol on ventilator, PEG tube placement, spine MRIs confirming C3-C7 spinal cord injury complete with plating of ribs 510 on the right side and right sided chest tube. He was found to have drug screen positive for marijuana and methamphetamine. Neurosurgery was consulted perform decompressive laminectomy on C3-C7 with C4-C5 autograft bone screws and rods. He was diagnosed with Haemophilus influenza while intubated and that treatment was completed. He did have rhabdomyolysis from his injuries requiring aggressive IV fluids but they all resolved. Hyperglycemia was diagnosed and he was started on insulin and elevated liver enzymes have improved since admission and hepatitis viral panel along with HIV were negative. He did receive 2 units of packed red blood cells hospitalized. Currently patient is requiring wound care consult by Dr. Craven and general surgery consultation by Dr. Alamo because additional debridement of the sacral decubitus ulcer will be required. He will remain with the c-collar in place until seen Dr. Nesbitt on 01/30/19. Hemoglobin today is 10.1. Dr. Arcos's been consulted for pulmonary issues which she is having increased secretions today in addition urology will be consulted for Zamarripa catheter maintenance for neurogenic bladder. I did speak with Dr. Arcos who will panculture the patient and change breathing treatments to clear secretions. Patient remains total care with quadriplegia. Source: patient, RN/MD, old records When I saw pt today he looked comfortable; no complaints. He is moving his right arm. Allergies and Home Medications Allergies Coded Allergies: No Known Drug Allergies (Unverified , 08/25/10) Home Medications Alprazolam 1 Mg Tablet, 1 MG PO HS PRN for SLEEP/ANXIETY, (Reported) Hydrocodone/Acetaminophen 1 Each Tablet, 1 TAB PO TID PRN for PAIN-MODERATE, (Reported) Ibuprofen 800 Mg Tablet, 800 MG PO TID PRN for PAIN-MILD, (Reported) Insulin NPH Hum/Reg Insulin Hm 100 Unit/1 Ml Vial, 25 UNIT SQ BID, (Reported) [place] 3 Polyunsat Fatty Acids 1,000 Mg Cap, 3,000 MG PO DAILY, (Reported) Pregabalin 150 Mg Capsule, 150 MG PO TID, (Reported) Simvastatin 80 Mg Tablet, 80 MG PO HS, (Reported) ON HOLD AT PHARMACY SINCE 09-25-18 (NOT PICKED UP) Patient Home Medication List Home Medication List Reviewed: Yes Past [id number]-Toysuq Hx Patient Social History Alcohol Use: Denies Use Recreational Drug Use: Yes (15 YEARS AGO) Smoking Status: Former Smoker Type Used: Cigarettes Recent Foreign Travel: No Contact w/Someone Who Travel: No Recent Infectious Disease Expo: No Recent Hopitalizations: Yes (SPINAL CORD INJURY AND AT BETHEL 7-19) Physical Abuse Screen: No Sexual Abuse: No Immunizations Up To Date Tetanus Booster (TDap): Unknown PED Vaccines UTD: Yes Date of Pneumonia Vaccine: Sep 04, 2015 Date of Influenza Vaccine: Apr 05, 2017 Seasonal Allergies Seasonal Allergies: Yes (TALL GRASS, ANIMALS) Surgeries History of Surgeries: Yes (hernia repair x 2,2 teeth removed,bladder and kidney problems in childhood) Surgeries: Abdominal, Orthopedic Respiratory History of Respiratory Disorde: Yes (OCCASIONALLY USES INHALER DUE TO OUTSIDE ALLERGENS) Respiratory Disorders: COPD Cardiovascular History of Cardiac Disorders: No Neurological History of Neurological Disord: Yes Neurological Disorders: Neuropathy, Spinal Cord Injury (12/07/18 fall from 3 stories), Traumatic Brain Injury Reproductive System Hx Reproductive Disorders: No Sexually Transmitted Disease: No Genitourinary History of Genitourinary Disor: Yes (URINARY FREQUENCY) Genitourinary Disorders: Bladder Infection Gastrointestinal History of Gastrointestinal Di: Yes Gastrointestinal Disorders: Gastroesophageal Reflux, Polyps Musculoskeletal History of Musculoskeletal Dis: Yes (LEFT FOOT FX/ORIF; CHRONIC FOOT PAIN--NEUROPATHY) Musculoskeletal Disorders: Chronic Back Pain, Fractures Endocrine History of Endocrine Disorders: Yes Endocrine Disorders: Diabetes, Insulin dep HEENT History of HEENT Disorders: Yes HEENT Disorders: Cataract Cancer History of Cancer: No Psychosocial History of Psychiatric Problem: Yes Behavioral Health Disorders: Sleep Difficulties, Anxiety Integumentary History of Skin or Integumenta: No Blood Transfusions History of Blood Disorders: No Adverse Reaction to a Blood Tr: No Family Medical History Significant Family History: AAA, Diabetes, Hypertension Family Medial History: Abdominal aortic aneurysm 03 MOTHER (DOESN'T KNOW MOM'S MEDICAL HISTORY) Cancer 03 FATHER (TESTICULAR) Family history: Diabetes mellitus 03 FATHER Family history: Hypertension 03 FATHER No Family History of: Family history: Alzheimer's disease Family history: Arthritis Family history: Breast disease Family history: Cardiovascular disease Family history: Gastrointestinal disease Family history: Thyroid disorder Hereditary disease History of - respiratory disease Myocardial infarction Parkinson's disease Seizure disorder Stroke Review of Systems-General Constitutional: malaise, weakness EENTM: other (trach in place, neck in C-Collar); No blurred vision, No double vision, No mouth pain, No mouth swelling Respiratory: phlegm, short of breath Cardiovascular: No chest pain, No edema Gastrointestinal: No abdominal pain, No dysphagia, No hematemesis Genitourinary: No dysuria, No frequency, No hematuria Musculoskeletal: muscle weakness Psychiatric/Neurological: Anxiety, Paresthesia; Denies Seizure Physical Exam-General Problems Physical Exam Vital Signs Vital Signs - First Documented 01/09/19 01/09/19 16:27 19:35 Temp 97.8 Pulse 62 Resp 24 B/P (MAP) 124/80 Pulse Ox 99 O2 Delivery Trach Collar O2 Flow Rate 6.00 28.00 FiO2 28 Capillary Refill : Less Than 3 Seconds General Appearance: no apparent distress Eyes: Bilateral Eye PERRL, Bilateral Eye EOMI HEENT: other (Trach in place) Neck: other (C-collar) Respiratory: chest non-tender, lungs clear, normal breath sounds, no respiratory distress, no accessory muscle use Cardiovascular: regular rate, rhythm, no murmur Gastrointestinal: normal bowel sounds, soft, no organomegaly Neurologic/Psychiatric: normal mood/affect, oriented x 3 Skin: normal color, warm/dry, other (sacral decub with necrotic tissue) Lymphatic: no adenopathy (neck, axilla or groin) Data Review Labs Laboratory Tests 01/09/19 18:17: Glucometer 96 01/10/19 00:00: Glucometer 175H 01/10/19 05:14: Glucometer 120H 01/10/19 05:17: White Blood Count 6.8, Red Blood Count 3.33L, Hemoglobin 10.1L, Hematocrit 32L, Mean Corpuscular Volume 96, Mean Corpuscular Hemoglobin 30, Mean Corpuscular Hemoglobin Concent 32, Red Cell Distribution Width 14.9H, Platelet Count 208, Mean Platelet Volume 8.5, Neutrophils (%) (Auto) 54, Lymphocytes (%) (Auto) 33, Monocytes (%) (Auto) 12, Eosinophils (%) (Auto) 0, Basophils (%) (Auto) 0, Neutrophils # (Auto) 3.7, Lymphocytes # (Auto) 2.3, Monocytes # (Auto) 0.8, Eosinophils # (Auto) 0.0, Basophils # (Auto) 0.0, Sodium Level 135, Potassium Level 4.6, Chloride Level 99, Carbon Dioxide Level 24, Anion Gap 12, Blood Urea Nitrogen 13, Creatinine 0.72, Estimat Glomerular Filtration Rate > 60, BUN/Creatinine Ratio 18, Glucose Level 119H, Calcium Level 9.1, Corrected Calcium 9.8, Total Bilirubin 0.3, Aspartate Amino Transf (AST/SGOT) 26, Alanine Aminotransferase (ALT/SGPT) 19, Alkaline Phosphatase 178H, B-Type Natriuretic Peptide 104.6H, Total Protein 7.7, Albumin 3.1L 01/10/19 09:57: Blood Gas Puncture Site RT BRACHIAL, Blood Gas Patient Temperature 96.8, Arterial Blood pH 7.46H, Arterial Blood Partial Pressure CO2 39, Arterial Blood Partial Pressure O2 78L, Arterial Blood HCO3 27, Arterial Blood Total CO2 28.6, Arterial Blood Oxygen Saturation 97, Arterial Blood Base Excess 3.5H, Jeremiah Test YES-POS, Blood Gas Ventilator Setting NO, Blood Gas Inspired Oxygen TRACH 6 L 28% 01/10/19 10:10: Urine Color YELLOW, Urine Clarity CLEAR, Urine pH 8, Urine Specific [place] 1.010L, Urine Protein 1+H, Urine Glucose (UA) NEGATIVE, Urine Ketones NEGATIVE, Urine Nitrite NEGATIVE, Urine Bilirubin NEGATIVE, Urine Urobilinogen 4H, Urine Leukocyte Esterase NEGATIVE, Urine RBC (Auto) NEGATIVE, Urine RBC RARE, Urine WBC NONE, Urine Squamous Epithelial Cells RARE, Urine Crystals NONE, Urine Bacteria NEGATIVE, Urine Casts PRESENT, Urine Hyaline Casts RARE, Urine Mucus SMALLH, Urine Culture Indicated NO 01/10/19 11:50: Glucometer 239H Assessment/Plan Assessment/Plan Assessment/Plan Sacral Decubitus Ulcer Necrotic Tissue Quadriplegia Plan is to take pt to the OR for debridement of necrotic tissue. Discussed the procedure with pt; he actually just had same thing done before coming to Rehab unit. Hopefully if we can get it under control, then will be able to place a wound VAC. Otherwise will need wet-to-dry dressing daily. Clinical Quality Measures DVT/VTE Risk/Contraindication: Risk Factor Score Per Nursin RFS Level Per Nursing on Admit: 4+=Very High EDMUND ALAMO DO Jan 10, 2019 17:23
[2019-01-10] MEDS ORDERED: TROUGH ORDER-PHARMACY XX NR (17:30)
[2019-01-10 18:45] VITALS: BP 146/77
[2019-01-10] MEDS: MELATONIN 3 MG TABLET PEG SCH (20:01)
[2019-01-10] MEDS: ALPRAZolam 0.5 MG (XANAX) TAB PEG PRN (20:01)
[2019-01-10] MEDS: MONTELUKAST 10 MG (SINGULAIR) TAB PO SCH (20:01)
[2019-01-11] MEDS: inSUlin ASPART (NovoLOG) 1 UNIT/0.01 ML (CHARGE PER UNIT) SC SCH ×4 (00:17→19:01)
[2019-01-11] MEDS: guaiFENesin SYRUP 100 MG/5 ML 10 ML (ROBITUSSIN SF) PEG SCH ×3 (01:37→23:25)
[2019-01-11] MEDS: VANCOMYCIN 750 MG/NS 250 ML IVPB IV SCH ×6 (01:46→19:28)
[2019-01-11] MEDS: PIPERACILLIN/TAZO 4.5 GM/NS 100 ML IV SCH ×6 (01:46→19:28)
--- NOTE | 2019-01-11 01:55 | NUR ---
PCCT entered room to check on pt as he is yelling "help me." PCCT request this RN speak to pt. Pt yelling that he wants his [place] J Collar removed right now. Educated pt on need for [place] J Collar and he screams "i"m the doctor now and I want it off." Pt also states that when he was at [facility] prior to transfer to this facility that he was allowed to take collar off while in bed. Pt calms down when this RN says that I will go through his paperwork from [facility] and if there is documentation regarding the collar coming off while in bed that we will let Dr. Cordero know when she makes rounds. This RN went through paperwork that pt brought with him from [facility]. Last order states that [place] J Collar to be worn at all times until after f/u 01/30/[address] Nesbitt. Will pass this on to oncoming shift so they can inform Dr. Cordero.
--- NOTE | 2019-01-11 02:30 | NUR ---
Pt repeatedly hollers that he is going AMA today so he can take his [place] J Collar off. Cont to try to educate pt on need for collar but pt appears irrational and will not listen to anything the RN has to say. Will inform Dr. Cordero of pt's behavior/status.
[2019-01-11] MEDS: RT-ALBUTEROL/IPRATROPIUM 3 ML (DUONEB) VIAL INH SCH ×5 (02:39→22:14)
[2019-01-11] MEDS: aCETylcysteine 20% (MUCOMYST) 30ML SOLN VIAL INH SCH ×5 (02:39→22:14)
[2019-01-11] MEDS ORDERED: LORazepam INJ 2 MG/ML (ATIVAN) VIAL ONE (03:27)
--- NOTE | 2019-01-11 03:29 | NUR ---
Pt is agitated and irrational. Cont to yell that he is going AMA today because we won't remove [place] J Collar. Dr. Cordero notified and new orders received for Ativan 1mg IV q3hrs prn agitation.
[2019-01-11] MEDS: LORazepam INJ 2 MG/ML (ATIVAN) VIAL IVP PRN (03:39)
--- NOTE | 2019-01-11 03:39 | NUR ---
Ativan 1mg IV given for agitation. Cont to monitor.
--- NOTE | 2019-01-11 04:50 | NUR ---
Puncher And Fastener María called after pt being verbally abusive to staff and constantly yelling. Pt agreed to stop yelling. Pt insisting he wants to go AMA. Will discuss what needs to be done when Dr. Cordero gets here and Pt's arrives.
[2019-01-11 05:12] LABS: BASOPHILS % (AUTO) 0 % (0-10); EOSINOPHILS # (AUTO) 0.1 10^3/uL (0.0-0.3); EOSINOPHILS % (AUTO) 2 % (0-10); HEMATOCRIT 32 % (40-54); HEMOGLOBIN 10.1 G/DL (13.3-17.7); LYMPHOCYTES % (AUTO) 31 % (12-44); MEAN CORPUSCULAR HEMOGLOBIN 31 PG (25-34); MEAN CORPUSCULAR HGB CONC 32 G/DL (32-36); MEAN CORPUSCULAR VOLUME 96 FL (80-99); MEAN PLATELET VOLUME 8.6 FL (7.4-10.4); MONOCYTES # (AUTO) 0.9 X 10^3 (0.0-1.0); MONOCYTES % (AUTO) 14 % (0-12); NEUTROPHILS # (AUTO) 3.4 X 10^3 (1.8-7.8); NEUTROPHILS % (AUTO) 53 % (42-75); PLATELET COUNT 225 10^3/uL (130-400); RED CELL DISTRIBUTION WIDTH 15.1 % (10.0-14.5); WHITE BLOOD COUNT 6.5 10^3/uL (4.3-11.0)
[2019-01-11 05:40] LABS: BUN/CREATININE RATIO 20; CALCIUM 9.2 MG/DL (8.5-10.1); CARBON DIOXIDE 25 MMOL/L (21-32); CHLORIDE 105 MMOL/L (98-107); CREATININE SERUM 0.64 MG/DL (0.60-1.30); GFR ESTIMATED > 60; GLUCOSE 82 MG/DL (70-105); MAGNESIUM 2.2 MG/DL (1.8-2.4); PHOSPHORUS 3.5 MG/DL (2.3-4.7); POTASSIUM 3.8 MMOL/L (3.6-5.0); SODIUM 140 MMOL/L (135-145)
--- NOTE | 2019-01-11 05:44 | NUR ---
Pt repositioned at this time. Pt more relaxed and almost pleasant with staff. Will cont to monitor.
[2019-01-11 06:08] VITALS: BP 109/75
--- NOTE | 2019-01-11 08:31 | NUR ---
LACQUER SPRAY BOOTH OPERATOR was made aware that patient was upset yesterday evening due to irritation with current neck brace. LACQUER SPRAY BOOTH OPERATOR reviewed [place] documentation that supports the need for the brace until a follow up occurs with Dr. Nesbitt in mid January. LACQUER SPRAY BOOTH OPERATOR met with patient during therapy session today to discuss his concerns and hear his frustrations. Patient reports that he spent hours in the same position and his muscles were extremely tense when he was repositioned by therapy this morning. Patient also reports that his call light was out of reach, requiring him to holler out when he needed assistance. He also expressed discomfort with his current brace as it never stays in place and is a nuisance. PT, Eduardo looked at current brace and noted that it was "tall" in size. LACQUER SPRAY BOOTH OPERATOR reached out to [place], Inpatient Coordinator to request and order for a "short" brace. Upon further discussion, patient reports that he feels he can manage at home. While problem solving through physical and medical needs, as well as home modifications and equipment, LACQUER SPRAY BOOTH OPERATOR and therapy voiced concerns regarding the reality of returning home at this time and the need to reach medical stability, complete family training as well as structural and equipment arrangements. Patient became tearful when discussing this life altering event. It was recommended that patient participate in a pastoral or consult, patient agreed. LACQUER SPRAY BOOTH OPERATOR will continue to follow for additional needs.
--- NOTE | 2019-01-11 08:44 | PM&R Progress Note ---
Subjective HPI/CC On Admission Date Seen by Provider: Jan 11, 2019 Time Seen by Provider: 08:45 Chief complaint: In need of intensive therapy for catastrophic traumatic injury with subsequent quadriplegia due to complete spinal cord injury C3-C7 History of present illness: This is a 53-year-old white male who presented to the 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 He was unable to maintain his airway. He was intubated at the scene. He was assessed in the ER by Dr. Vaughan trauma surgeon found to have significant hypotension requiring aggressive IV fluids and pressor therapy but then was assessed that he was likely an spinal cord shock and multiple right rib fractures with flail chest requiring transfer to [facility] trauma surgery which resulted in multiple procedures including tracheostomy due to failing weaning protocol on ventilator, PEG tube placement, spine MRIs confirming C3-C7 spinal cord injury complete with plating of ribs 510 on the right side and right sided chest tube. He was found to have drug screen positive for marijuana and methamphetamine. Neurosurgery was consulted perform decompressive laminectomy on C3-C7 with C4-C5 autograft bone screws and rods. He was diagnosed with Haemophilus influenza while intubated and that treatment was completed. He did have rhabdomyolysis from his injuries requiring aggressive IV fluids but they all resolved. Hyperglycemia was diagnosed and he was started on insulin and elevated liver enzymes have improved since admission and hepatitis viral panel along with HIV were negative. He did receive 2 units of packed red blood cells hospitalized. Currently patient is requiring wound care consult by Dr. Craven and general surgery consultation by Dr. García because additional debridement of the sacral decubitus ulcer will be required. He will remain with the c-collar in place until seen Dr. Nesbitt on 01/30/19. Hemoglobin today is 10.1. Dr. Arcos's been consulted for pulmonary issues which she is having increased secretions today in addition urology will be consulted for Zamarripa catheter maintenance for neurogenic bladder. I did speak with Dr. Arcos who will panculture the patient and change breathing treatments to clear secretions. Patient remains total care with quadriplegia. Subjective/Events-last exam Having significant behaviors last night. Ativan was given but he was demanding to leave against medical advice which he is not even near going home because of the decubitus ulcer that will need debrided today then wound vac placement and be able to eat and drink and ultimately remove the peg tube. Ramp was created by his family and they're preparing for his discharge at home with removal of doors and changing his bathroom. Denies any other significant pain. Is able to move his right arm. Coarseness of the breath sounds continue but much improved. Reviewed consultation notes. Will have debridement today and maintained on broad-spectrum antibiotics. Review of Systems General: Fatigue Objective Exam Vital Signs Vital Signs Date Time Temp Pulse Resp B/P (MAP) Pulse Ox O2 Delivery O2 Flow Rate FiO2 01/11/19 19:14 90 Trach Collar 6.00 35 01/11/19 15:38 96.6 53 14 94/58 (70) Capillary Refill : Less Than 3 Seconds General Appearance: No Apparent Distress, WD/WN, Chronically ill, Thin HEENT: PERRL/EOMI, Normal ENT Inspection, Pharynx Normal, Moist Mucous Membranes Neck: Full Range of Motion, Normal Inspection, Non Tender, Supple Respiratory: Chest Non Tender, No Accessory Muscle Use, No Respiratory Distress, Crackles, Decreased Breath Sounds, Wheezing, Other (trach in place) Cardiovascular: Regular Rate, Rhythm, No Edema, No Gallop, No JVD, No Murmur Gastrointestinal: Normal Bowel Sounds, No Organomegaly, No Pulsatile Mass, Soft, Other (PEG in place) Back: Normal Inspection, No CVA Tenderness, No Vertebral Tenderness Extremity: Normal Capillary Refill Neurologic/Psychiatric: Alert, Oriented x3, housekeeping coordinator II-XII Norm as Tested, Depressed Affect, Motor Weakness (bilateral lower extremities and deficits at waist) Skin: Normal Color, Warm/Dry, Other (decubitus ulcer coccyx, right heel ulcer) Lymphatic: No Adenopathy Results/Procedures Lab Laboratory Tests 01/11/19 05:00 Patient resulted labs reviewed. FIM Transfers Therapy Code Descriptions/Definitions Functional [place] Measure: 0=Not Assessed/NA 4=Minimal Assistance 1=Total Assistance 5=Supervision or Setup 2=Maximal Assistance 6=Modified [place] 3=Moderate Assistance 7=Complete [place] Therapy Quality Codes: 6 Independent with activity with or without an assistive device 5 Patient requires set up or clean up by helper. Patient completes activity by themselves 4 Supervision or touching assist (CGA). [place] provide cues , steadying assist 3 The helper provides less than half the effort to complete the activity 2 The helper provides more than half the effort to complete the activity 1 Dependent. The helper does all the effort to complete an activity 7 Patient refused to complete or attempt activity 9 The patient did not perform the activity before the current illness or i njury 88 Not attempted due to Medical conditions or safety concerns Transfers (B, C, W/C) (FIM): 1 Scootin Rollin Roll Left to Right (QC): 1 Supine to/from Sit: 1 Sit to Lying (QC): 1 Chair/Tqa-ur-Msskg Xfer(QC): 1 Bed to/from Chair: 1 Car Transfer (QC): 1 Gait Training Does the Patient Walk?: No and Walking Goal NOT indicated Wheelchair Training Does the Pt Use a Wheelchair?: Yes Wheelchair (FIM): 1 Distance: 150' Wheelchair Level of Assist: 1 Type of Wheelchair: Manual Mental Status/Objective Comprehension: 6 Expression: 6 Social Interaction: 6 Problem Solvin Memory: 4 ADL-Treatment Feedin (Peg) Eating (QC): 1 Groomin Bathin (Required dependent assist to bathe in bed.) Shower/Bathe Self (QC): 1 Lower Extremity Dressin Lower Body Dressing (QC): 1 On/Off Footwear (QC): 1 Toiletin Toileting Hygiene (QC): 1 Assessment/Plan Assessment and Plan Assess & Plan/Chief Complaint Assessment: 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 Nesbitt at [facility] Rib plating on the right Closed right scapular fracture Diabetes mellitus [id number] requiring insulin PEG tube status Trach dependent Anemia Hypertension DVT prophylaxis with Lovenox Neurogenic bladder requiring Zamarripa catheter Decubitus ulcer in need of debridement OJ Plan: Broad-spectrum antibiotics for decubitus ulcer infection Debridement per Dr. García and Dr. Craven Wound VAC after debridement Maintain on Lovenox Consult urology Rehabilitation to focus on transfers and lessen burden on caretakers (1) Post-traumatic quadriplegia (2) Diabetes mellitus (3) Anemia (4) Anxiety (5) Chronic pain (6) Neurogenic bladder (7) HLD (hyperlipidemia) (8) Tracheostomy dependent (9) DVT prophylaxis (10) Closed right scapular fracture (11) Right rib fracture (12) Right pulmonary contusion (13) Decubitus ulcer of coccygeal region, stage 4 (14) Shock due to spinal cord injury (15) Paresthesias (16) Illicit drug use (17) Cellulitis (18) Hypertension (19) Type 2 diabetes mellitus with hyperglycemia (20) PEG (percutaneous endoscopic gastrostomy) status MARGUERITE GAN DO Jan 11, 2019 08:44
--- NOTE | 2019-01-11 09:22 | Physical Therapy Daily Note ---
PT Daily Note-Current Subjective Patient in bed pre tx, agrees to PT, has unrated pain in his neck. Patient has some issues he needs to talk about, social security benefits interviewer in room too, patient is unsatisfied with his neck brace, a smaller one would probably fit him better, other issues discussed with therapist and social security benefits interviewer, OT in the room too. Will be co-treating with OT this morning due to poor patient mobility, strength, endurance, the need to coordinate UE and LE activity and trunk positioning. Appearance Patient in bed post tx with nurse call, laying on right side for pressure relief. Mental Status Patient Orientation: Normal For Age Attachments: Oxygen, Zamarripa Catheter Transfers Therapy Code Descriptions/Definitions Functional Dane Measure: 0=Not Assessed/NA 4=Minimal Assistance 1=Total Assistance 5=Supervision or Setup 2=Maximal Assistance 6=Modified Dane 3=Moderate Assistance 7=Complete Dane Therapy Quality Codes: 6 Independent with activity with or without an assistive device 5 Patient requires set up or clean up by helper. Patient completes activity by themselves 4 Supervision or touching assist (CGA). [place] provide cues , steadying assist 3 The helper provides less than half the effort to complete the activity 2 The helper provides more than half the effort to complete the activity 1 Dependent. The helper does all the effort to complete an activity 7 Patient refused to complete or attempt activity 9 The patient did not perform the activity before the current illness or injury 88 Not attempted due to Medical conditions or safety concerns Transfers (B, C, W/C) (FIM): 1 Scootin Rollin Patient was bathed and dressed in bed. He practiced rolling to each side several times for cleaning and dressing. He is able to assist a little with his arms using his bicep to help turn but not enough to be max assist. Treatments bathing, dressing, also patient UE and LE PROM in all planes, neck brace adjustment Assessment Current Status: Poor Progress no change in mobility PT Short Term Goals Short Term Goals Time Frame: Jan 17, 2019 Transfers (B,C,W/C) (FIM): 1 Wheelchair (FIM): 4 (if he can get a power chair) Wheelchair Distance: 150' Wheelchair Level of Assist: 4 PT Ship Fastener Goals Ship Fastener Goals PT Nursing Home Goals Time Frame: Jan 31, 2019 Transfers (B,C,W/C) (FIM): 1 Sit to Lying (QC): 1 Lying-Sitting on Side/Bed(QC): 1 Rollin Roll Left to Right (QC): 2 Chair/Kab-gi-Nvefl Xfer(QC): 1 Car Transfer (QC): 1 Wheelchair (FIM): 5 (if he can get a power chair) Distance: 150' Wheelchair Level of Assist: 5 Wheel 50 feet with 2 turns (QC: 4 PT Plan Problem List Problem List: Activity Tolerance, Functional Strength, Safety, Balance, Transfer, Bed Mobility, ROM Treatment/Plan Treatment Plan: Continue Plan of Care Treatment Plan: Bed Mobility, Concurrent Therapy, Education, Functional Activity Estella, Functional Strength, Group Therapy, Safety, Therapeutic Exercise, Transfers Treatment Duration: Jan 31, 2019 Frequency: At least 5 of 7 days/Wk (IRF) Estimated Hrs Per Day: 1.5 hours per day Patient and/or Family Agrees t: Yes Safety Risks/Education Patient Education: Reviewed Precautions, Correct Positioning, Safety Issues Teaching Recipient: Patient Teaching Methods: Demonstration, Discussion Response to Teaching: Reinforcement Needed Time/GCodes Time In: 0800 Time Out: 0915 Total Billed Treatment Time: 75 Total Billed Treatment 1 visit EX 15' FA 60' ADRIENNE DURAN PT Jan 11, 2019 09:22
[2019-01-11] MEDS: SENNA W/DOCUSATE (SENOKOT S) TABLET PEG SCH ×3 (09:42→21:56)
[2019-01-11] MEDS: APAP 325 MG/10.15 ML LIQ (TYLENOL) UDC PEG PRN ×2 (09:42→17:15)
[2019-01-11] MEDS: LORATADINE (CLARITIN) 10 MG TAB PO SCH ×2 (09:42→10:01)
[2019-01-11] MEDS: POT PHOS/NA PHOS (K-PHOS NEUTRAL) PEG SCH ×2 (09:43→21:56)
[2019-01-11] MEDS: FAMOTIDINE 20 MG (PEPCID) TABLET PEG SCH ×2 (09:43→21:56)
--- NOTE | 2019-01-11 10:00 | NUR ---
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 The pt expressed feeling satisfied about his hard work over the years, observing that his loved ones are now able to keep up with the business because he thought ahead. According to the pt, his 17 year old witnessed his 30+ foot fall, but after a few weeks his son stepped up to assist with management responsibilities for the business. 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 "I was told that our refrigerator is covered in letters written by friends and acquaintances from our community." He was unable to wipe his own tears, and so I offered to do so for him: He asked that I would. At the close of our visit, I offered to return for follow up support. He welcomed this and said next time he would share about the yazidism influence his grandmother had on him while he was growing up. He said "she was a woman of the Word, and she always knew what scriptures I needed to hear." He then requested prayer. I asked if he wished his door to remain closed and he requested it be left open for the time being.
[2019-01-11] MEDS: MIDODRINE 10 MG (PROAMATINE) TAB PO SCH ×3 (10:01→22:00)
--- NOTE | 2019-01-11 11:04 | NUR ---
Short neck brace has been ordered for patient.
--- NOTE | 2019-01-11 12:18 | Speech Therapy Daily Note ---
Speech Daily Progress Note Subjective Date Seen by Provider: Jan 11, 2019 Time Seen by Provider: 00:30 The patient was laid back in bed. He c/o the care he received the previous evening and was ready to leave AMA. He is calmer now and said he's trying to put it behind him. Objective The patient completed memory tasks related to his needs with 80% given min to mod verbal and/or visual cuing. Assessment Assessment Current Status: Good Progress Treatment Plan Continue Plan of Care Communication Comprehension: 6 Expression: 6 Social Cognition Social Interaction: 6 Problem Solvin Memory: 4 Speech Short Term Goals Short Term Goals Short Term Goals 1) The patient will complete memory tasks related to his daily needs at 90% or greater with minimal cues. 2) The patient will complete problem solving tasks related to his daily needs at 90% or greater with minimal cues. 3) The patient will complete safety awareness tasks related to his daily needs at 90% or greater with minimal cues. 4) The patient will tolerate least restrictive diet without s/s of aspiration with 90% or greater. 5) The patient will demonstrate compliance of utilization of compensatory strategies as trained at 90% or greater with minimal cues. Speech Nursing Home Goals Solid Waste Engineer Goals The patient will improve his cognitive status for a safe return home. The patient will maintain adequate nutrition/hydration via safe effective swallow function and/or PEG tube. Speech-Plan Patient/Family Goals Patient/Family Goals: The patient will return home with his family post rehab. Treatment Plan Speech Therapy Treatment Plan: Continue Plan of Care The patient states he ate pudding and mashed potatoes without difficulty yesterday. Today he is NPO due to surgery procedure. Treatment Duration: Jan 26, 2019 Frequency: 5 times per week Estimated Hrs Per Day: .5 hour per day Rehab Potential: Guarded Barriers to Learning: The patient has some mild cognitive deficits. Pt/Family Agrees to Plan: Yes Safety Risks/Education Teaching Recipient: Patient Teaching Methods: Discussion Response to Teaching: Verbalize Understanding Education Topics Provided: Safety with movement he does have. Time Speech Therapy Time In: 11:30 Speech Therapy Time Out: 12:00 Total Billed Time: 30 Billed Treatment Time [address] Jan 11, 2019 12:18
--- NOTE | 2019-01-11 12:55 | CONSULTATION REPORT ---
DATE OF SERVICE: 01/11/2019 ATTENDING PHYSICIAN: Dr. Cordero. 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 He has been debrided by Dr. García and on a wound VAC after that. The patient denies any urinary problem before the accident. He has been having the catheter since the accident. IMPRESSION: Neurogenic bladder with retention. PLAN: I would leave the catheter for now to allow the decubitus ulcer to heal. Once that heals then we can attempt either possible spontaneous voiding with the use of Flomax and Urecholine or the patient will need an indwelling Zamarripa catheter, preferably suprapubic tube. If we try any voiding symptoms at this point or even put a suprapubic, he may have spastic bladder and weak urine through the urethra and soil the decubitus ulcer. Job ID: [id number] DocumentID: [id number] Dictated Date: 01/11/2019 12:26:24 Pharmaceutical Salesperson Date: 01/11/2019 12:54:49 Dictated By: RUBIO NOVA MD MTDD
--- NOTE | 2019-01-11 13:02 | Pulmonary Progress Note ---
Subjective Time Seen by a Provider: 13:02 Subjective/Events-last exam No complications noted. Sepsis Event Evaluation Height, Weight, BMI Height: 5'3.00" Weight: 147lbs. 8.0oz. 66.569996hb; 26.1 BMI Method:Stated Exam Exam Vital Signs Date Time Temp Pulse Resp B/P (MAP) Pulse Ox O2 Delivery O2 Flow Rate FiO2 01/11/19 09:35 91 Trach Collar 6.00 35 01/11/19 06:55 96 Trach Collar 6.00 28 01/11/19 06:08 97.0 62 16 109/75 (86) 100 Trach Collar 6.00 01/11/19 02:36 96 Trach Collar 6.00 28 01/11/19 00:00 98 Trach Collar 6.00 28 01/10/19 22:25 98 Trach Collar 6.00 28 01/10/19 22:25 98 Trach Collar 6.00 28 01/10/19 20:00 Trach Collar 6.00 28 01/10/19 18:47 98 Trach Collar 6.00 28 01/10/19 18:45 98.0 65 18 146/77 (100) 98 Trach Collar 6.00 01/10/19 15:31 94 Trach Collar 6.00 28 I & O 01/11/19 07:00 Intake Total 1610.0 ml Output Total 3700 ml Balance -2090.0 ml Height & Weight Height: 5'3.00" Weight: 147lbs. 8.0oz. 66.005292ay; 26.1 BMI Method:Stated General Appearance: No Apparent Distress, WD/WN, Chronically ill HEENT: PERRL/EOMI, Pharynx Normal Neck: Full Range of Motion, Non Tender, Supple Respiratory: Chest Non Tender, No Accessory Muscle Use, No Respiratory Distress, Decreased Breath Sounds Cardiovascular: Regular Rate, Rhythm, No Edema Capillary Refill: Less Than 3 Seconds Gastrointestinal: normal bowel sounds, non tender, soft Extremity: Normal Capillary Refill, Non Tender Neurologic/Psychiatric: Alert Skin: Normal Color, Warm/Dry Lymphatic: No Adenopathy Results Lab Laboratory Tests 01/10/19 05:17 01/11/19 05:00 Assessment/Plan Assessment/Plan 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 Nesbitt at [facility] Tracheostomy -PT currently has uncuffed trach tube -sputum culture pending Decubitus ulcer stage 4 -wound care Rib plating on the right Closed right scapular fracture Diabetes mellitus [id number] requiring insulin PEG tube status -Swallow eval pending Anemia -Monitor Hypertension Neurogenic bladder with Zamarripa catheter Decubitus ulcer in need of debridement -Wound vac -Surgery following Illicit drug use ALONDRA HUSSEIN DO Jan 11, 2019 13:02
[2019-01-11 13:41] VITALS: BP 104/63
[2019-01-11] MEDS: COLLAGENASE 30 GM (SANTYL) TUBE TP SCH (15:25)
--- NOTE | 2019-01-11 15:28 | Occupational Ther Daily Note ---
OT Current Status-Daily Note Subjective Pt. verbalizes that he did not have a good night. States that he did not sleep well, and that he is wanting to discharge. OT and PT talked with him in depth about needing to set up home, family, and equipment system for him. metal engineering process worker came in to talk with pt. as did physician. Appearance Pt. in bed, laying on left side. Agrees to work with therapy. Mental Status/Objective Patient Orientation: Person, Place Therapy Code Descriptions/Definitions Functional Hall Measure: 0=Not Assessed/NA 4=Minimal Assistance 1=Total Assistance 5=Supervision or Setup 2=Maximal Assistance 6=Modified Hall 3=Moderate Assistance 7=Complete Hall ADL-Treatment Therapy Code Descriptions/Definitions Functional Hall Measure: 0=Not Assessed/NA 4=Minimal Assistance 1=Total Assistance 5=Supervision or Setup 2=Maximal Assistance 6=Modified Hall 3=Moderate Assistance 7=Complete Hall Therapy Quality Codes: 6 Independent with activity with or without an assistive device 5 Patient requires set up or clean up by helper. Patient completes activity by themselves 4 Supervision or touching assist (CGA). [place] provide cues , steadying assist 3 The helper provides less than half the effort to complete the activity 2 The helper provides more than half the effort to complete the activity 1 Dependent. The helper does all the effort to complete an activity 7 Patient refused to complete or attempt activity 9 The patient did not perform the activity before the current illness or injury 88 Not attempted due to Medical conditions or safety concerns Bathing (FIM): 1 Shower/Bathe Self (QC): 1 Upper Body (FIM): 1 Upper Body Dressing (QC): 1 Lower Body Dressing (FIM): 1 Lower Body Dressing (QC): 1 On/Off Footwear (QC): 1 Transfers (B, C, W/C) (FIM): 1 OT/PT co-treated pt. this date. OT focused on ADL skills and UE PROM while PT focused on transfers and LE PROM. OT/PT assisted with bathing/dressing in bed, as well as rolling side to side. OT completed gentle PROM to bilateral UE. No active tone noted during PROM. PT completed gentle PROM to bilateral LE. Pt. dependent with each task. Pt. positioned to comfort level on side with positioning devices. Social work and therapy followed up with contacting senior category manager for pt. to talk with about his frustrations and processing of his accident and current physical state. All needs met. Pt. to have surgical p rocedure in p.m. Education OT Patient Education: Correct positioning, Modified ADL techniques, Progress toward Goal/Update tx plan, Purpose of tx/functional activities, Reviewed precautions, Rehab process, Transfer techniques Teaching Recipient: Patient Teaching Methods: Demonstration, Discussion Response to Teaching: Verbalize Understanding, Return Demonstration OT Short Term Goals Short Term Goals Time Frame: Jan 24, 2019 Grooming(FIM): 2 (with AE) Upper Body Dressing(FIM): 2 Transfers (B,C,W/C) (FIM): 1 Additional Short Term Goals: 3-ImproveStrength/Estella 1=Demonstrate adherence to instructed precautions during ADL tasks. 2=Patient will verbalize/demonstrate understanding of assistive devices/modifications for ADL. 3=Patient will improve strength/tolerance for activity to enable patient to perform ADL's. OT Imaging Science Professor Goals Imaging Science Professor Goals Time Frame: Feb 14, 2019 Eating (FIM): 3 Eating (QC): 3 Groomin Oral Hygiene (QC): 3 Upper Body Dressing(FIM): 3 Additional Goals: 3-ImproveStrength/Estella 1=Demonstrate adherence to instructed precautions during ADL tasks. 2=Patient will verbalize/demonstrate understanding of assistive devices/modifications for ADL. 3=Patient will improve strength/tolerance for activity to enable patient to p erform ADL's. OT Education/Plan Problem List/Assessment Assessment: Decreased Activ Tolerance, Decreased UE Strength, Dependent Transfers, Impaired Bed Mobility, Impaired Funct Balance, Impaired I ADL's, Impaired Self-Care Skills, Restricted Funct UE ROM Discharge Recommendations Plan/Recommendations: Continue POC Therapy D/C Recommendations: 24 hr Supervision Treatment Plan/Plan of Care Treatment,Training & Education: Yes Patient would benefit from OT for education, treatment and training to promote independence in ADL's, mobility, safety and/or upper extremity function for ADL's. Plan of Care: ADL Retraining, Caregiver Training, Functional Mobility, Group Exercise/Act as Ind, UE Funct Exercise/Act, UE Neuromus Re-Ed/Coord Treatment Duration: Feb 14, 2019 Frequency: At least 5 of 7 days/Wk (IRF) Estimated Hrs Per Day: 1.5 hours per day Agreement: Yes Rehab Potential: Guarded Time/GCodes Start Time: 08:00 Stop Time: 09:15 Total Time Billed (hr/min): 75 Billed Treatment Time 1, Ex x 15minutes, FA x 30minutes, ADL x 30minutes SHEYLA PETERSON OT Jan 11, 2019 15:28
[2019-01-11] MEDS: ENOXAPARIN 40 MG/0.4 ML (LOVENOX) SYR SC SCH (15:31)
[2019-01-11 15:38] VITALS: BP 94/58
--- NOTE | 2019-01-11 17:11 | NUR ---
CONCRETE MIXER TRUCK DRIVER received phone call from patient's spouse requesting that CONCRETE MIXER TRUCK DRIVER contact his aunt, Екатерина to discuss the next steps of care, as Susan reports that she did not understand the conversation we had yesterday after Team Conference. CONCRETE MIXER TRUCK DRIVER contacted Екатерина to review recommendations for need to complete family training and the need for home modifications in order for patient to return home safely. Екатерина states that Susan is of lower IQ and is incapable of problem solving appropriately to provide care for Raffy. Susan has contacted Екатерина several times throughout Raffy's hospitalization stating that she is incapable of providing necessary care. Екатерина also reports that their current home is rented and the necessary modifications cannot occur and the home is not large enough for needed equipment such as hospital bed, jareth lift and power chair. Екатерина states that Susan is in need of finding a maritime pilot job in order to provide financially for monthly expenses. Екатерина requests CONCRETE MIXER TRUCK DRIVER to locate [facility] placement upon [facility] discharge. CONCRETE MIXER TRUCK DRIVER met with patient with Екатерина on the phone, in order for Екатерина to express concerns with the home plan and the need for NH placement. Raffy agreed to placement, but requests a weekend at home prior to placement. CONCRETE MIXER TRUCK DRIVER explained that without the proper home accommodations and equipment, this option would not be safe. Patient again became tearful and expressed fear of his abandoning him and their children, as he states "she cannot handle the stress". CONCRETE MIXER TRUCK DRIVER was able to acknowledge his fears and concerns, which provided considerable relief. Patient became tired after this lengthy conversation. CONCRETE MIXER TRUCK DRIVER will re-visit patient at a later date.
[2019-01-11] MEDS: ALPRAZolam 0.5 MG (XANAX) TAB PEG PRN (17:14)
[2019-01-11] MEDS: RT-ALBUTEROL SULF 2.5 MG/3 ML PRE-MIX VIAL IH PRN (19:14)
--- NOTE | 2019-01-11 21:44 | Individualized Plan of Care ---
Individualized Plan of Care Rehab Nursing IPOC Order Admission Date Jan 09, 2019 at 16:14 Current Orders Orders Admission Order(Inpt,Obs,Sdc) (01/04/19 14:01) Vital Signs: Per Unit Policy ( 08,16,00 (01/04/19 14:01) Personal Lines Sales Executive-Inpt Rehab Con (01/04/19 14:01) Rehab Nursing Orders-Ipoc (01/04/19 14:01) Physical Therapy Rehab Orders (01/04/19 14:01) Occupational Therapy Rehab Ord (01/04/19 14:01) Speech Therapy Rehab Orders (01/04/19 14:01) Intake & Output 06,14,22 (01/04/19 14:01) Precautions (Aru) (01/04/19 14:01) Weekly Weight (Lbs) WEEK (01/04/19 14:01) Rehab-Intensity Of Therapy (01/04/19 14:01) Initiate Admission Nursing Pro .admission (01/04/19 14:01) Consult Urology (01/09/19 13:38) Consult General Surgery (01/09/19 13:38) Consult Pulmonology (01/09/19 13:38) Ambulate 08,12,20 (01/09/19 17:10) Sequential Compression Device 08,20 (01/09/19 17:10) Dvt/Vte Risk - Notifiy Physici 08 (01/09/19 17:10) Albuterol Pre-Mix Nebs (Rt) (Proventil (01/09/19 17:45) Bisacodyl Suppository (Dulcolax Supposit (01/09/19 17:45) Collagenase Ointment (Santyl Ointment) (01/10/19 14:00) Midodrine (Non-Formulary) (Proamatine) (01/09/19 21:00) Ondansetron Injection (Zofran Injectio (01/09/19 17:45) Piperacillin/Tazobactam (Zosyn Vial) (01/09/19 17:45) Potassium Chloride (Tablet) (K Dur Table (01/09/19 17:45) Vancomycin Injection (Vancomycin Injecti (01/09/19 17:45) Acetaminophen Oral Solution (Tylenol Ora (01/09/19 18:15) Enoxaparin Injection (Lovenox Injection) (01/10/19 14:00) Famotidine Tablet (Pepcid Tablet) (01/09/19 21:00) Guaifenesin Sf Syrup (Robitussin Sf Syru (01/09/19 18:15) Insulin Determir (Per Unit) (Levemir (Pe (01/09/19 21:00) Melatonin Tablet (Melatonin Tablet) (01/09/19 21:00) Na Phos/Na Biphos Enema (Fleet Enema Eliecer (01/09/19 18:15) Ondansetron Oral Dissolve Tab (Zofran (01/09/19 18:15) Polyethylene Glycol Powder Pkt (Miralax (01/09/19 21:00) Promethazine Injection (Phenergan Injec (01/09/19 18:30) Pot Phos/Na Phos Tablets (Phospha 250 Ne (01/09/19 21:00) Request Ot Evaluate & Treat (01/09/19 17:39) Request For Dysphagia Services (01/09/19 17:39) Lorazepam Injection (Ativan Injection) (01/09/19 18:00) Alprazolam Tablet (Xanax Tablet) (01/09/19 18:00) Acetaminophen Oral Solution (Tylenol Ora (01/09/19 18:15) Accucheck Q6hr Q6HR (01/09/19 18:03) Consult Wound Care Physician (01/09/19 18:03) Insulin Aspart (Novolog) (Novolog (Charg (01/09/19 18:15) Piperacillin/Tazobactam (Bulk) (Zosyn In (01/09/19 18:00) Vancomycin Injection (Vancomycin Injecti (01/09/19 18:30) Potassium Chloride (Tablet) (K Dur Table (01/10/19 06:00) Nothing By Mouth (01/09/19 Dinner) Cbc With Automated Diff (01/10/19 06:00) Comprehensive Metabolic Panel (01/10/19 06:00) Calcium Carbonate Chew Tablet (Antacid C (01/09/19 20:00) Melatonin Tablet (Melatonin Tablet) (01/09/19 20:00) Senna S Tablet (Senokot S Tablet) (01/09/19 21:00) Tracheostomy Care (01/09/19 20:00) Oxygen Delivery Set Up (01/09/19 20:00) Oxygen-Administer (01/09/19 20:00) Tube Feeding (Diet) (01/09/19 23:29) Trough Order (Trough Order-Pharmacy Orde (01/10/19 17:30) Vancomycin,Trough (01/10/19 17:30) Communication For Respiratory (01/10/19 08:06) Chest 1 View, Ap/Pa Only (01/10/19 09:36) Albuterol/Ipra Inhalation Soln (Duoneb I (01/10/19 10:00) Svn Small Volume Nebulizer (01/10/19 09:36) Acetylcysteine (Rt Or Po Use) (Mucomyst (01/10/19 10:00) Arterial Blood Gas (01/10/19 09:38) BNP (01/10/19 09:38) Basic Metabolic Panel (01/11/19 05:00) Cbc With Automated Diff (01/11/19 05:00) Magnesium (01/11/19 05:00) Ua Culture If Indicated (01/10/19 10:59) Mrsa Screen Physician Request (01/10/19 09:38) Mrsa Nursing Screening/Treatme .admit (01/10/19 09:38) Blood Culture (01/10/19 09:40) Sputum Culture (01/10/19 10:14) Alprazolam Tablet (Xanax Tablet) (01/09/19 20:00) Dys1 Pureed (01/10/19 Lunch) Montelukast Tablet (Singulair Tablet) (01/10/19 21:00) Loratadine Tablet (Claritin Tablet) (01/11/19 09:00) Patient Visit (01/10/19 ) Pt Eval Moderate Complexity (01/10/19 ) Functional Activities, Ea 15 (01/10/19 ) Patient Visit (01/10/19 ) Dysphagia Evaluation Std (01/10/19 ) Patient Visit (01/10/19 ) Speech Sound Lang Comp (01/10/19 ) Consent-Obtain Consent For (01/10/19 17:27) Preop Checklist (01/10/19 17:27) Npo After Midnight (Nursing Or (01/10/19 17:27) Nothing By Mouth (01/11/19 Breakfast) Phosphorus (01/11/19 05:00) Lorazepam Injection (Ativan Injection) (01/11/19 03:30) Lorazepam Injection (Ativan Injection) (01/11/19 03:27) Patient Visit (01/11/19 ) Functional Activities, Ea 15 (01/11/19 ) Exercise Therap, Ea 15 Min (01/11/19 ) Dys1 Pureed (01/11/19 Lunch) Patient Visit (01/11/19 ) Treat. Speech/Lang/Voice (01/11/19 ) Basic Metabolic Panel (01/12/19 05:00) Cbc With Automated Diff (01/12/19 05:00) Magnesium (01/12/19 05:00) Phosphorus (01/12/19 05:00) Soap Suds Enema Until Clear (01/12/19 09:04) Pharmacy Communication (Pharmacy Communi (01/12/19 09:15) Acetaminophen Oral Solution (Tylenol Ora (01/12/19 09:15) Calcium Carbonate Chew Tablet (Antacid C (01/12/19 09:15) Famotidine Tablet (Pepcid Tablet) (01/12/19 21:00) Senna S Tablet (Senokot S Tablet) (01/12/19 21:00) Pot Phos/Na Phos Tablets (Phospha 250 Ne (01/12/19 21:00) Melatonin Tablet (Melatonin Tablet) (01/12/19 09:30) Melatonin Tablet (Melatonin Tablet) (01/12/19 21:00) Famotidine Tablet (Pepcid Tablet) (01/12/19 10:49) Senna S Tablet (Senokot S Tablet) (01/12/19 10:49) Chest 1 View, Ap/Pa Only (01/12/19 11:43) Venous Access Request Order (01/12/19 11:43) Ct Angio Chest W (01/12/19 11:44) Iohexol Injection (Omnipaque 350 Mg/Ml 1 (01/12/19 12:00) Received Contrast (Hold Metformin- Contr (01/12/19 12:00) Sodium Chloride Flush (Catheter Flush Sy (01/12/19 12:00) Ns (Ivpb) (Sodium Chloride 0.9% Ivpb Bag (01/12/19 12:00) Patient Visit (01/12/19 ) Functional Activities, Ea 15 (01/12/19 ) Wheelchair Mgmt/Propulsn 15min (01/12/19 ) Arterial Blood Draw (01/10/19 09:57) Rehab Nursing Orders: Ongoing Assess. of Cognitive Status, Ongoing Assess. of Function Status, Bladder Management, Bladder Scan, Bladder Training, Bowel Management, Bowel Training, Disease Management & Educaiton, DVT Prophylaxis, Fall Prevention, Fluid/Electrolyte/Nutrition Mgmt, Infection Prevention, Medication Management & Education, Management of Risks & Complications, Management of Skin Intergrity, Nutrition Management, Pain Management, Patient /Family Support, Safety Management Intensity of Therapy to be met Patient to be seen: Min.3h per day/5 of 7d PT IPOC Problem List: Activity Tolerance, Functional Strength, Safety, Balance, Transfer, Bed Mobility, ROM Treatment Plan: Continue Plan of Care Bed Mobility, Concurrent Therapy, Education, Functional Activity Estella, Functional Strength, Group Therapy, Safety, Therapeutic Exercise, Transfers Treatment Duration: Jan 31, 2019 Frequency: At least 5 of 7 days/Wk (IRF) Estimated Hrs Per Day: 1.5 hours per day OT IPOC Problems: Decreased Activ Tolerance, Decreased UE Strength, Dependent Transfers, Impaired Bed Mobility, Impaired Funct Balance, Impaired I ADL's, Impaired Self-Care Skills, Restricted Funct UE ROM OT Treatment, Training and Edu: Yes Plan of Care: ADL Retraining, Caregiver Training, Functional Mobility, Group Exercise/Act as Ind, UE Funct Exercise/Act, UE Neuromus Re-Ed/Coord Treatment Duration: Feb 14, 2019 Frequency: At least 5 of 7 days/Wk (IRF) Estimated Hrs Per Day: 1.[address] IPOC Speech Therapy Treatment Plan: Continue Plan of Care Treatment Duration: Jan 26, 2019 Frequency: 5 times per week Estimated Hrs Per Day: .5 hour per day Personal Lines Sales Executive/Case Mgmt Personal Lines Sales Executive/Case Managemen: Discharge Planning Dietitian/Hands Hanger Dietitian/Hands Hanger to monitor nutritional status and make changes and/or recommendations as needed and work with speech pathology on dietary upgrades as the occur. Physician IPOC Medical Issues being managed closely and that require the 24 hour availability of a physician: Decubitus ulcer in need of debridement and broad-spectrum antibiotics for upper respiratory bacterial bronchitis requiring pulmonology consultation along with general surgery consultation and will require close monitoring due to new onset quadriplegia Medical Issues: Bowel/Bladder Function, DVT Prophylaxis, Falls Precautions, Fluid/Electrolyte/Nutrition Balance, Pain Management, Swallowing Precautions Brief Synthesis of Preadmission Screen, Post-Admission Evaluation, and Therapy Evaluations: Physical therapy will focus on transfers and wheelchair care Occupational therapy will work on range of motion to prevent contractures Speech therapy will work on swallowing to eventually discontinue PEG tube Medical Prognosis: Guarded Anticipated Length of Stay: 14 days AMRGUERITE GAN DO Jan 11, 2019 21:44
[2019-01-11] MEDS: MONTELUKAST 10 MG (SINGULAIR) TAB PO SCH (21:56)
[2019-01-11] MEDS: MELATONIN 3 MG TABLET PEG SCH (21:56)
[2019-01-12] VITALS: BP 105/68
--- NOTE | 2019-01-12 01:30 | NUR ---
PATIENT AGAIN REQUESTING COLLAR TO BE REMOVED. CALMLY EXPLAINED AGAIN TO PATIENT THAT COLLAR COULD NOT BE REMOVED DUE TO DOCTOR'S ORDER. PATIENT STATING THAT "IT IS CHOCKING ME" AND THAT "IT'S FALLING APART ANYWAY". COLLAR ASSESSED. VELCRO SECURED AND BREATHING NOT OBSTRUCTED. PATIENT CONTINUES TO STATE THAT HE WILL "CRAWL OUT OF HERE" AND THAT HE "DOES NOT WANT TO BE HERE". REFUSES HIS INSULIN, ATIVAN, AND ANTIBIOTICS AT THIS TIME. PATIENT BELLIGERENT AND YELLING. EXPLAINED TO PATIENT THAT YELLING WOULD NOT BE ACCEPTED IT WAS DISTURBING OTHER PATIENTS. AFTER 30 MINUTES, PATIENT CALMED DOWN AND APOLOGIZED AND STATED THAT HE WOULD LIKE THE ATIVAN, INSULIN AND ANTIBIOTICS THAT ARE DUE AT THIS TIME. CONVERSATION WITH PATIENT WITNESSED BY CHAD RIVERA AND MIKIE VELASQUEZ. LIGHTHOUSE KEEPER NOTIFIED OF PATIENT'S BEHAVIOR.
[2019-01-12] MEDS: LORazepam INJ 2 MG/ML (ATIVAN) VIAL IVP PRN (02:15)
[2019-01-12] MEDS: inSUlin ASPART (NovoLOG) 1 UNIT/0.01 ML (CHARGE PER UNIT) SC SCH ×5 (02:29→23:53)
[2019-01-12] MEDS: VANCOMYCIN 750 MG/NS 250 ML IVPB IV SCH ×6 (02:58→19:57)
[2019-01-12] MEDS: aCETylcysteine 20% (MUCOMYST) 30ML SOLN VIAL INH SCH ×6 (02:58→20:36)
[2019-01-12] MEDS: PIPERACILLIN/TAZO 4.5 GM/NS 100 ML IV SCH ×6 (02:58→19:57)
[2019-01-12] MEDS: RT-ALBUTEROL/IPRATROPIUM 3 ML (DUONEB) VIAL INH SCH ×6 (02:58→20:36)
[2019-01-12] MEDS: KCL 20 MEQ TAB (K-DUR) PO SCH (06:00)
[2019-01-12 06:08] VITALS: BP 100/64
[2019-01-12 06:36] LABS: BASOPHILS % (AUTO) 0 % (0-10); EOSINOPHILS # (AUTO) 0.1 10^3/uL (0.0-0.3); EOSINOPHILS % (AUTO) 2 % (0-10); HEMATOCRIT 33 % (40-54); HEMOGLOBIN 10.5 G/DL (13.3-17.7); LYMPHOCYTES # (AUTO) 2.4 X 10^3 (1.0-4.0); LYMPHOCYTES % (AUTO) 34 % (12-44); MEAN CORPUSCULAR HEMOGLOBIN 31 PG (25-34); MEAN CORPUSCULAR HGB CONC 31 G/DL (32-36); MEAN CORPUSCULAR VOLUME 97 FL (80-99); MEAN PLATELET VOLUME 9.1 FL (7.4-10.4); MONOCYTES # (AUTO) 0.9 X 10^3 (0.0-1.0); MONOCYTES % (AUTO) 13 % (0-12); NEUTROPHILS # (AUTO) 3.7 X 10^3 (1.8-7.8); NEUTROPHILS % (AUTO) 51 % (42-75); PLATELET COUNT 243 10^3/uL (130-400); RED CELL DISTRIBUTION WIDTH 15.1 % (10.0-14.5); WHITE BLOOD COUNT 7.3 10^3/uL (4.3-11.0)
[2019-01-12] MEDS: guaiFENesin SYRUP 100 MG/5 ML 10 ML (ROBITUSSIN SF) PEG SCH ×3 (06:56→21:36)
[2019-01-12 07:09] LABS: BUN/CREATININE RATIO 24; CALCIUM 9.2 MG/DL (8.5-10.1); CARBON DIOXIDE 23 MMOL/L (21-32); CHLORIDE 104 MMOL/L (98-107); CREATININE SERUM 0.67 MG/DL (0.60-1.30); GFR ESTIMATED > 60; GLUCOSE 126 MG/DL (70-105); MAGNESIUM 1.9 MG/DL (1.8-2.4); PHOSPHORUS 2.9 MG/DL (2.3-4.7); POTASSIUM 3.9 MMOL/L (3.6-5.0); SODIUM 138 MMOL/L (135-145)
[2019-01-12] MEDS ORDERED: CALCIUM CARBONATE 500 MG (TUMS) TAB.CHEW PO PRN (09:15)
--- NOTE | 2019-01-12 09:21 | Physical Therapy Daily Note ---
PT Daily Note-Current Subjective Patient in bed pre tx, agrees to PT, has 5/10 pain in his shoulders and neck. Neck brace is still uncomfortable. Will be co-treating with OT due to poor patient mobility, strength, endurance, sitting balance, the need to coordinate UE and LE positioning during activity. Appearance Patient in bed post tx with nurse call, phone, tray, all needs met. Patient on right side with pillow support for pressure relief. Mental Status Patient Orientation: Normal For Age Attachments: Oxygen, Zamarripa Catheter Transfers Therapy Code Descriptions/Definitions Functional [place] Measure: 0=Not Assessed/NA 4=Minimal Assistance 1=Total Assistance 5=Supervision or Setup 2=Maximal Assistance 6=Modified [place] 3=Moderate Assistance 7=Complete [place] Therapy Quality Codes: 6 Independent with activity with or without an assistive device 5 Patient requires set up or clean up by helper. Patient completes activity by themselves 4 Supervision or touching assist (CGA). [place] provide cues , steadying assist 3 The helper provides less than half the effort to complete the activity 2 The helper provides more than half the effort to complete the activity 1 Dependent. The helper does all the effort to complete an activity 7 Patient refused to complete or attempt activity 9 The patient did not perform the activity before the current illness or injury 88 Not attempted due to Medical conditions or safety concerns Transfers (B, C, W/C) (FIM): 1 Scootin Rollin Supine to/from Sit: 1 Bed to/from Chair: 1 Orly transfer to the power chair, patient is able to assist some with rolling using his arm/bicep to help pull. Wheelchair Training Does the Pt Use a Wheelchair?: Yes Wheelchair (FIM): 3 Distance: 150' Wheelchair Level of Assist: 3 Type of Wheelchair: Motorized Patient has limited capacity to drive the power chair we have here. He needs a goal post attachment for the joystick so his hand doesn't slide off, if he had this he might be able to drive it himself but probably not change settings. He could use a headrest and trunk supports for positioning. WC adjusted to patient as well as can be (armrest heights, legrest height). Treatments dressing, transfers, wc mobility and adjustment Assessment Current Status: Fair Progress fair potential for WC mobility with the right attachments and positioning PT Short Term Goals Short Term Goals Time Frame: Jan 17, 2019 Transfers (B,C,W/C) (FIM): 1 Wheelchair (FIM): 4 (if he can get a power chair) Wheelchair Distance: 150' Wheelchair Level of Assist: 4 PT Appointment Setter Goals Appointment Setter Goals PT Appointment Setter Goals Time Frame: Jan 31, 2019 Transfers (B,C,W/C) (FIM): 1 Sit to Lying (QC): 1 Lying-Sitting on Side/Bed(QC): 1 Rollin Roll Left to Right (QC): 2 Chair/[id number] Xfer(QC): 1 Car Transfer (QC): 1 Wheelchair (FIM): 5 (if he can get a power chair) Distance: 150' Wheelchair Level of Assist: 5 Wheel 50 feet with 2 turns (QC: 4 PT Plan Problem List Problem List: Activity Tolerance, Functional Strength, Safety, Balance, Transfer, Bed Mobility Treatment/Plan Treatment Plan: Continue Plan of Care Treatment Plan: Bed Mobility, Concurrent Therapy, Education, Functional Activity Estella, Functional Strength, Group Therapy, Safety, Therapeutic Exercise, Transfers Treatment Duration: Jan 31, 2019 Frequency: At least 5 of 7 days/Wk (IRF) Estimated Hrs Per Day: 1.5 hours per day Patient and/or Family Agrees t: Yes Safety Risks/Education Patient Education: Transfer Techniques, Correct Positioning, W/C Management, Safety Issues Teaching Recipient: Patient Teaching Methods: Demonstration, Discussion Response to Teaching: Reinforcement Needed Time/GCodes Time In: 0800 Time Out: 0915 Total Billed Treatment Time: 75 Total Billed Treatment 1 visit FA 45' WCH 30' Co-treated for the whole 75 min. PT worked on bed mobility and transfers, wc mobility and adjustment, assist with positioning during dressing, OT worked on dressing, transfers, assist with positioning in wheelchair ADRIENNE DURAN PT Jan 12, 2019 09:21
[2019-01-12] MEDS ORDERED: MELATONIN 3 MG TABLET PO PRN (09:30)
--- NOTE | 2019-01-12 09:40 | Progress Note - Urology ---
Progress Note-Urology Progress Notes/Assess & Plan Progress/Assessment & Plan WILL SEE PRN Final Diagnosis RETENTION RUBIO NOVA MD Jan 12, 2019 09:40
--- NOTE | 2019-01-12 09:46 | Occupational Ther Daily Note ---
OT Current Status-Daily Note Subjective pt laying in bed upon OT/ PT arrival. pt reports 5/10 be shoulder pain. NSG is aware. pt agreed to TX session. pt stated he was donated a power w/c and will have his spouse bring it in over the weekend. Appearance once in hallway with pt. pt began clammy. and was not as talkative. NSG notified and assess pt. pt BG 149, BP 93/61 Mental Status/Objective Therapy Code Descriptions/Definitions Functional [place] Measure: 0=Not Assessed/NA 4=Minimal Assistance 1=Total Assistance 5=Supervision or Setup 2=Maximal Assistance 6=Modified [place] 3=Moderate Assistance 7=Complete [place] Attachments: Zamarripa Catheter, Oxygen, Polar Pack, Other-See Comments (apsen collar ) ADL-Treatment Therapy Code Descriptions/Definitions Functional [place] Measure: 0=Not Assessed/NA 4=Minimal Assistance 1=Total Assistance 5=Supervision or Setup 2=Maximal Assistance 6=Modified [place] 3=Moderate Assistance 7=Complete [place] Therapy Quality Codes: 6 Independent with activity with or without an assistive device 5 Patient requires set up or clean up by helper. Patient completes activity by themselves 4 Supervision or touching assist (CGA). [place] provide cues , steadying assist 3 The helper provides less than half the effort to complete the activity 2 The helper provides more than half the effort to complete the activity 1 Dependent. The helper does all the effort to complete an activity 7 Patient refused to complete or attempt activity 9 The patient did not perform the activity before the current illness or injury 88 Not attempted due to Medical conditions or safety concerns Eating (FIM): 1 (hand over hand feed ) Upper Body Dressing (QC): 1 (machine puller shirt ) Other Treatment session with co-treatment perform with PT secondary to complexity of pt deficits requiring skills by both disciplines a rehab director was unable to complete due to poor mobility, decrease overall strength, decrease activity tolerance/ endurance, poor sequencing, decrease coordination, and decrease static sitting balance. pt is a Orly lift for all mobility secondary to decrease truck control and limited ROM related to SCI. pt perform right to left rolls with MAX A. OT focus on providing education with proper hand placement/ sequencing, and stimulating biceps movement, while PT focused on LE placement and gross movement. pt Orly to electric w/c for trail. pt limited for driving power chair secondary to limitations of chair, pt will require attachment for joystick secondary to hand sliding off even with build up handle. pt would also benefit from having headrest and truck supports for proper positioning. universal cuff trailed with chair and was unsuccessful. post session pt Orly back to bed, call light positioning in reach and pt trial to use call light 3/5 trials correctly with proper positioning. pt on right side with pillow for support for pressure relief. podus boot applied to right foot for proper positioning and to decrease foot drop. all needs met. Education OT Patient Education: Correct positioning, Energy conservation, Progress toward Goal/Update tx plan, Purpose of tx/functional activities, Safety issues, Transfer techniques, Use of adapted equipment Teaching Recipient: Patient Teaching Methods: Demonstration, Discussion Response to Teaching: Reinforcement Needed OT Short Term Goals Short Term Goals Time Frame: Jan 24, 2019 Grooming(FIM): 2 (with AE) Upper Body Dressing(FIM): 2 Transfers (B,C,W/C) (FIM): 1 Additional Short Term Goals: 3-ImproveStrength/Estella 1=Demonstrate adherence to instructed precautions during ADL tasks. 2=Patient will verbalize/demonstrate understanding of assistive devices/modifications for ADL. 3=Patient will improve strength/tolerance for activity to enable patient to perform ADL's. OT Halfway Goals Propagation Worker Goals Time Frame: Feb 14, 2019 Eating (FIM): 3 Eating (QC): 3 Groomin Oral Hygiene (QC): 3 Upper Body Dressing(FIM): 3 Additional Goals: 3-ImproveStrength/Estella 1=Demonstrate adherence to instructed precautions during ADL tasks. 2=Patient will verbalize/demonstrate understanding of assistive devices/modifications for ADL. 3=Patient will improve strength/tolerance for activity to enable patient to perform ADL's. OT Education/Plan Problem List/Assessment Assessment: Decreased Activ Tolerance, Decreased Safety Aware, Decreased UE Strength, Dependent Transfers, Impaired Bed Mobility, Impaired Cognition, Impaired Coordination, Impaired Funct Balance, Impaired I ADL's, Impaired Self- Care Skills, Restricted Funct UE ROM, Visual-Perceptual Deficit Discharge Recommendations Plan/Recommendations: Continue POC Treatment Plan/Plan of Care Treatment,Training & Education: Yes Patient would benefit from OT for education, treatment and training to promote independence in ADL's, mobility, safety and/or upper extremity function for ADL's. Plan of Care: ADL Retraining, Caregiver Training, Functional Mobility, Group Exercise/Act as Ind, UE Funct Exercise/Act, UE Neuromus Re-Ed/Coord, W/C Management Training Treatment Duration: Feb 14, 2019 Frequency: At least 5 of 7 days/Wk (IRF) Estimated Hrs Per Day: 1.5 hours per day Agreement: Yes Rehab Potential: Guarded Time/GCodes Start Time: 08:00 Stop Time: 09:00 Billed Treatment Time co treatment with PT 75 minutes FA 75 minutes, 5 units CHRISTY BERNAL OT Jan 12, 2019 09:46
--- NOTE | 2019-01-12 10:14 | PM&R Progress Note ---
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 He was unable to maintain his airway. He was intubated at the scene. He was assessed in the ER by Dr. Vaughan trauma surgeon found to have significant hypotension requiring aggressive IV fluids and pressor therapy but then was assessed that he was likely an spinal cord shock and multiple right rib fractures with flail chest requiring transfer to [facility] trauma surgery which resulted in multiple procedures including tracheostomy due to failing weaning protocol on ventilator, PEG tube placement, spine MRIs confirming C3-C7 spinal cord injury complete with plating of ribs 510 on the right side and right sided chest tube. He was found to have drug screen positive for marijuana and methamphetamine. Neurosurgery was consulted perform decompressive laminectomy on C3-C7 with C4-C5 autograft bone screws and rods. He was diagnosed with Haemophilus influenza while intubated and that treatment was completed. He did have rhabdomyolysis from his injuries requiring aggressive IV fluids but they all resolved. Hyperglycemia was diagnosed and he was started on insulin and elevated liver enzymes have improved since admission and hepatitis viral panel along with HIV were negative. He did receive 2 units of packed red blood cells hospitalized. Currently patient is requiring wound care consult by Dr. Craven and general surgery consultation by Dr. García because additional debridement of the sacral decubitus ulcer will be required. He will remain with the c-collar in place until seen Dr. Nesbitt on 01/30/19. Hemoglobin today is 10.1. Dr. Arcos's been consulted for pulmonary issues which she is having increased secretions today in addition urology will be consulted for Zamarripa catheter maintenance for neurogenic bladder. I did speak with Dr. Arcos who will panculture the patient and change breathing treatments to clear secretions. Patient remains total care with quadriplegia. 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 Will stop tube feeding since he is eating and drinking very well No bowel movement for the last 3 days so will initiate suppository and fleets enema Ramp was created by his family but does not appear that he will be able to be successful at home so fpc is now evaluating him for an option Denies any other significant pain. Is able to move his right arm. Coarseness of the breath sounds continue but improved. Reviewed consultation notes. Status post debridement yesterday by Dr. García maintain on broad-spectrum antibiotics Review of Systems General: Fatigue Neurological: Weakness, Numbness, Incoordination Objective Exam Vital Signs Vital Signs Date Time Temp Pulse Resp B/P (MAP) Pulse Ox O2 Delivery O2 Flow Rate FiO2 01/12/19 10:15 91 Trach Collar 6.00 35 01/12/19 06:08 97.0 76 18 100/64 (76) Capillary Refill : Less Than 3 SecondsLess Than 3 Seconds General Appearance: No Apparent Distress, WD/WN, Chronically ill, Thin HEENT: PERRL/EOMI, Normal ENT Inspection, Pharynx Normal, Moist Mucous Mem branes Neck: Full Range of Motion, Normal Inspection, Non Tender, Supple Respiratory: Chest Non Tender, No Accessory Muscle Use, No Respiratory Distress, Crackles, Decreased Breath Sounds, Wheezing, Other (trach in place) Cardiovascular: Regular Rate, Rhythm, No Edema, No Gallop, No JVD, No Murmur Gastrointestinal: Normal Bowel Sounds, No Organomegaly, No Pulsatile Mass, Soft, Other (PEG in place) Back: Normal Inspection, No CVA Tenderness, No Vertebral Tenderness Extremity: Normal Capillary Refill Neurologic/Psychiatric: Alert, Oriented x3, color control operator II-XII Norm as Tested, Depressed Affect, Motor Weakness (bilateral lower extremities and deficits at waist) Skin: Normal Color, Warm/Dry, Other (decubitus ulcer coccyx, right heel ulcer) Lymphatic: No Adenopathy Results/Procedures Lab Laboratory Tests 01/12/19 05:30 Patient resulted labs reviewed. FIM Transfers Therapy Code Descriptions/Definitions Functional [place] Measure: 0=Not Assessed/NA 4=Minimal Assistance 1=Total Assistance 5=Supervision or Setup 2=Maximal Assistance 6=Modified [place] 3=Moderate Assistance 7=Complete [place] Therapy Quality Codes: 6 Independent with activity with or without an assistive device 5 Patient requires set up or clean up by helper. Patient completes activity by themselves 4 Supervision or touching assist (CGA). [place] provide cues , steadying assist 3 The helper provides less than half the effort to complete the activity 2 The helper provides more than half the effort to complete the activity 1 Dependent. The helper does all the effort to complete an activity 7 Patient refused to complete or attempt activity 9 The patient did not perform the activity before the current illness or injury 88 Not attempted due to Medical conditions or safety concerns Transfers (B, C, W/C) (FIM): 1 Scootin Rollin Roll Left to Right (QC): 1 Supine to/from Sit: 1 Sit to Lying (QC): 1 Chair/[id number]-Qsjdb Xfer(QC): 1 Bed to/from Chair: 1 Car Transfer (QC): 1 Gait Training Does the Patient Walk?: No and Walking Goal NOT indicated Wheelchair Training Does the Pt Use a Wheelchair?: Yes Wheelchair (FIM): 3 Distance: 150' Wheelchair Level of Assist: 3 Type of Wheelchair: Motorized Mental Status/Objective Comprehension: 6 Expression: 6 Social Interaction: 6 Problem Solvin Memory: 4 ADL-Treatment Feedin (hand over hand feed ) Eating (QC): 1 Groomin Bathin Shower/Bathe Self (QC): 1 Upper Extremity Dressin Upper Body Dressing (QC): 1 (mold puller shirt ) Lower Extremity Dressin Lower Body Dressing (QC): 1 On/Off Footwear (QC): 1 Toiletin Toileting Hygiene (QC): 1 Assessment/Plan Assessment and Plan Assess & Plan/Chief Complaint Assessment: 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 Nesbitt at [facility] 12/07/18 Rib plating on the right Closed right scapular fracture Diabetes mellitus qpt-md-[id number] requiring insulin PEG tube status Trach dependent Anemia Hypertension DVT prophylaxis with Lovenox Neurogenic bladder requiring Zamarripa catheter and urology recommends maintained to help heal decubitus ulcer in the meantime Decubitus ulcer s/p debridement OJ Plan: Broad-spectrum antibiotics for decubitus ulcer infection Debridement per Dr. García and Dr. Craven Wound VAC after debridement Maintain on Lovenox Consult urology Rehabilitation to focus on transfers and lessen burden on caretakers penitentiary placement? Remove neck brace while sleeping to aid in alleviation of discomfort causing behaviors Stop tube feedings and begin eating more with swallowing exercises (1) Post-traumatic quadriplegia (2) Diabetes mellitus (3) Anemia (4) Anxiety (5) Chronic pain (6) Neurogenic bladder (7) HLD (hyperlipidemia) (8) Tracheostomy dependent (9) DVT prophylaxis (10) Closed right scapular fracture (11) Right rib fracture (12) Right pulmonary contusion (13) Decubitus ulcer of coccygeal region, stage 4 (14) Shock due to spinal cord injury (15) Paresthesias (16) Illicit drug use (17) Cellulitis (18) Hypertension (19) Type 2 diabetes mellitus with hyperglycemia (20) PEG (percutaneous endoscopic gastrostomy) status MARGUERITE GAN DO Jan 12, 2019 10:14
--- NOTE | 2019-01-12 10:25 | Pulmonary Progress Note ---
Subjective Time Seen by a Provider: 10:23 Subjective/Events-last exam PT denies SOB. Sepsis Event Evaluation Height, Weight, BMI Height: 5'3.00" Weight: 147lbs. 8.0oz. 66.919004yf; 26.1 BMI Method:Stated Exam Exam Vital Signs Date Time Temp Pulse Resp B/P (MAP) Pulse Ox O2 Delivery O2 Flow Rate FiO2 01/12/19 10:15 91 Trach Collar 6.00 35 01/12/19 06:47 98 Trach Collar 6.00 35 01/12/19 06:08 97.0 76 18 100/64 (76) 99 Trach Collar 01/12/19 00:00 60 105/68 (80) Trach Collar 10.00 01/11/19 22:14 98 Trach Collar 6.00 35 01/11/19 21:00 Trach Collar 10.00 35 01/11/19 19:14 90 Trach Collar 6.00 35 01/11/19 15:38 96.6 53 14 94/58 (70) 99 Trach Collar 01/11/19 13:41 97.4 49 16 104/63 (77) 98 Trach Collar 6.00 I & O 01/12/19 07:00 Intake Total 995 ml Output Total 1550 ml Balance -555 ml Height & Weight Height: 5'3.00" Weight: 147lbs. 8.0oz. 66.478079ll; 26.1 BMI Method:Stated General Appearance: WD/WN, Anxious, Chronically ill, Mild Distress HEENT: PERRL/EOMI, Other (tracheostomy) Neck: Full Range of Motion, Supple Respiratory: No Accessory Muscle Use, No Respiratory Distress, Crackles, Decreased Breath Sounds, Rhonci Cardiovascular: Regular Rate, Rhythm, No Edema Capillary Refill: Less Than 3 Seconds Gastrointestinal: normal bowel sounds, non tender, soft Extremity: Normal Capillary Refill, Non Tender, No Pedal Edema Neurologic/Psychiatric: Alert, Oriented x3 Skin: Normal Color, Warm/Dry Lymphatic: No Adenopathy Results Lab Laboratory Tests 01/11/19 05:00 01/12/19 05:30 Assessment/Plan Assessment/Plan 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 Nesbitt at [facility] Tracheostomy -PT currently has uncuffed trach tube -sputum culture pending -Pt sounds more coarse today -SVNS with duoneb and mucomyst Decubitus ulcer stage 4 -wound care Rib plating on the right Closed right scapular fracture Diabetes mellitus yek-or-lwcihxt requiring insulin PEG tube status -Swallow eval Anemia -Monitor Hypertension Neurogenic bladder with Zamarripa catheter Decubitus ulcer in need of debridement -Wound vac -Surgery following Illicit drug use ALONDRA HUSSEIN DO Jan 12, 2019 10:25
[2019-01-12] MEDS ORDERED: FAMOTIDINE 20 MG (PEPCID) TABLET ONE (10:49)
[2019-01-12] MEDS ORDERED: SENNA W/DOCUSATE (SENOKOT S) TABLET ONE (10:49)
[2019-01-12] MEDS: APAP 325 MG/10.15 ML LIQ (TYLENOL) UDC PO PRN (10:59)
[2019-01-12] MEDS: SENNA W/DOCUSATE (SENOKOT S) TABLET PO SCH ×2 (10:59→21:00)
[2019-01-12] MEDS: ALPRAZolam 0.5 MG (XANAX) TAB PEG PRN (10:59)
[2019-01-12] MEDS: POT PHOS/NA PHOS (K-PHOS NEUTRAL) PO SCH ×2 (11:00→21:32)
[2019-01-12] MEDS: FAMOTIDINE 20 MG (PEPCID) TABLET PO SCH ×2 (11:00→21:33)
[2019-01-12] MEDS: MIDODRINE 10 MG (PROAMATINE) TAB PO SCH ×3 (11:01→21:35)
[2019-01-12] MEDS: LORATADINE (CLARITIN) 10 MG TAB PO SCH (11:02)
[2019-01-12] MEDS ORDERED: IOHEXOL 350 MG/ML 100 ML (OMNIPAQUE 350) VIAL IV ONE (12:00)
[2019-01-12] MEDS ORDERED: NS 100 ML (IVPB) BAG IV ONE (12:00)
[2019-01-12] MEDS ORDERED: HOLD METFORMIN - RECEIVED CONTRAST 20 ML VIAL IV SCH (12:00)
--- NOTE | 2019-01-12 12:03 | NUR ---
Short Neck Brace received and given to RACHNA Groves on the rehab unit.
--- NOTE | 2019-01-12 12:59 | Diagnostic Imaging Report ---
INDICATION: PICC line placement. Frontal chest obtained at 12:18 p.m. and compared to 1213 hrs the same day. FINDINGS: PICC line is repositioned with tip now overlying the lower SVC. Tracheotomy tube is unchanged. The heart is normal in size. There is no new infiltrate. Postop changes in right ribs are noted. IMPRESSION: No focal infiltrate or pneumothorax or pleural fluid. The PICC line has been repositioned with tip now overlying the low SVC. Dictated by: Dictated on workstation # [id number]
--- NOTE | 2019-01-12 13:33 | Speech Therapy Daily Note ---
Speech Daily Progress Note Subjective Date Seen by Provider: Jan 12, 2019 Time Seen by Provider: 00:30 The patient was resting in his bed after having a procedure completed. He stated he had ordered lunch and was just waiting on it. Objective The patient completed 75% of his meal without difficulty. Compensatory strategies were utilized for the intake at 90%. Assessment Assessment Current Status: Good Progress Treatment Plan Continue Plan of Care Communication Comprehension: 6 Expression: 6 Social Cognition Social Interaction: 6 Problem Solvin Memory: 4 Speech Short Term Goals Short Term Goals Short Term Goals 1) The patient will complete memory tasks related to his daily needs at 90% or greater with minimal cues. 2) The patient will complete problem solving tasks related to his daily needs at 90% or greater with minimal cues. 3) The patient will complete safety awareness tasks related to his daily needs at 90% or greater with minimal cues. 4) The patient will tolerate least restrictive diet without s/s of aspiration with 90% or greater. 5) The patient will demonstrate compliance of utilization of compensatory strategies as trained at 90% or greater with minimal cues. Speech Penitentiary Goals Penitentiary Goals The patient will improve his cognitive status for a safe return home. The patient will maintain adequate nutrition/hydration via safe effective swallow function and/or PEG tube. Speech-Plan Patient/Family Goals Patient/Family Goals: The patient would like to return home post rehab, however the actual plan is not in place for structures and care he will require. Treatment Plan Speech Therapy Treatment Plan: Continue Plan of Care The patient has made great progress with oral intake. Treatment Duration: Jan 26, 2019 Frequency: 5 times per week Estimated Hrs Per Day: .5 hour per day Rehab Potential: Guarded Barriers to Learning: Patient is a quadreplegic and has some mild cognitive deficits. Pt/Family Agrees to Plan: Yes Safety Risks/Education Teaching Recipient: Patient Teaching Methods: Discussion Response to Teaching: Verbalize Understanding Education Topics Provided: Compensatory strategies for oral intake. Time Speech Therapy Time In: 12:30 Speech Therapy Time Out: 13:00 Total Billed Time: 30 Billed Treatment Time LUIS DANIEL Dumont Judi SANTANAPRANAY AMINHAKAN JOHNSTON Jan 12, 2019 13:33
[2019-01-12] MEDS: CATHETER FLUSH 10 ML SYR IV PRN (13:47)
--- NOTE | 2019-01-12 13:51 | Diagnostic Imaging Report ---
CLINICAL INDICATION: Second attempt PICC line placement. EXAM: Portable chest x-ray upright view. COMPARISON: Portable chest x-ray upright view dated 01/12/2019 at 1202 hrs. FINDINGS AND IMPRESSION: 1: Left PICC line is again seen with its distal portion looped nearly 180 degrees and is suspected to be overlying the distal left innominate vein region. This too should be withdrawn at least 4 cm and re-inserted with repeat chest x-ray. 2: The remainder of this exam shows no significant interval change compared to the prior study of comparison. Dictated by: Dictated on workstation # [id number]
--- NOTE | 2019-01-12 13:55 | Diagnostic Imaging Report ---
INDICATION: Line placement. TECHNIQUE: Single-view chest at 12:16 p.m. CORRELATION STUDY: Study of 12:13 p.m. FINDINGS: Tracheostomy tube projects over the trachea just below the clavicles. A left-sided central line is present with tip obscured by rib fixation hardware but appears to be likely over the high SVC. Given difference in technique, mediastinal configuration and lung nieves are otherwise stable. IMPRESSION: 1. Left upper extremity central line tip is somewhat obscured but appears to be projecting over the high right paramediastinal region likely near the confluence of the innominate vein and superior vena cava. Dictated by: Dictated on workstation # [id number]
--- NOTE | 2019-01-12 13:56 | Diagnostic Imaging Report ---
CLINICAL INDICATION: First attempt PICC line placement. EXAM: Portable chest x-ray upright view. COMPARISON: Chest x-ray dated 01/10/2019. FINDINGS: Left PICC line is again seen with tip now looped 180 degrees and overlying the distal left innominate vein region. This catheter should be withdrawn at least 4 cm and reinserted. Repeat chest x-ray should be obtained. Lungs are clear. There is no pleural effusion or pneumothorax. Pulmonary vasculature and cardiac silhouettes are within normal limits. Again seen postop changes to the chest with sideplate and screws affixing multiple posterior right ribs. Tracheostomy tube is seen. The remainder of this exam shows no significant interval change compared to the prior study of comparison. IMPRESSION: 1: Left PICC line has changed in position which is now looped 180 degrees overlying the distal left innominate vein region. This catheter should be withdrawn at least 4 cm and reinserted. Repeat chest x-ray is suggested. 2: The remainder of this exam shows no significant interval change compared to the prior study of comparison. Dictated by: Dictated on workstation # [id number]
--- NOTE | 2019-01-12 14:09 | Diagnostic Imaging Report ---
CLINICAL INDICATION: Third attempt PICC line placement. EXAM: Portable chest x-ray upright view. COMPARISON: Portable chest x-ray upright view dated 01/12/2019 at 12:10 p.m. FINDINGS AND IMPRESSION: 1: There is re-adjustment of the left PICC line with tip repositioned and continues to be looped 180 degrees and may be overlying the distal left innominate vein region. This too should be withdrawn at least 4 cm and reinserted. Repeat chest x-ray should be obtained. 2: The remainder of this exam shows no significant interval change compared to the prior study of comparison. Dictated by: Dictated on workstation # [id number]
[2019-01-12] MEDS: COLLAGENASE 30 GM (SANTYL) TUBE TP SCH (15:18)
[2019-01-12] MEDS: ENOXAPARIN 40 MG/0.4 ML (LOVENOX) SYR SC SCH (15:23)
--- NOTE | 2019-01-12 15:32 | Behavioral Health Consult ---
Consult- Consult Date Seen by Provider: Jan 12, 2019 Time Seen by Provider: 14:00 Patient: Raffy Fink : 1965 Date: 01/12/2019 Referral: Dr. Cordero CPT Code: 45540 Psychodiagnostic Examination and 78047 Interactive Complexity, 1 unit(s) Start Time: 1400 Stop Time: 1540 Chief Complaint: Depression and agitation Referral: Raffy Fink is a 53 year old male referred by Dr. Cordero for a clinical diagnostic assessment. Information sources for this evaluation include self- report/observation and medical records. Presenting Problem: The presenting clinical problem is depression and agitation. Duration of the current problem was reported as since his injury one month ago. The primary clinical theme and problem discussed during the appointment was that Mr. Fink suffered a fall and significant spinal cord in [facility] on December 07, 2018. He was transferred to [facility] on January 09, 2019. Since his admission he reportedly has had some episodes of agitation and noncooperative behaviors. Mr. Fink was able to verbalize his frustration with his current condition. He states that he and the nursing staff have come to compromise, and he feels he has been more accepting of his care and treatment. He currently presented a hopeful outlook that he will improve or learn to accept his limitations. Mr. 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 He reported that he worries about his financial situation and his family. He is open to antidepressant medication to assist him with the major life event he has been through and will continue to adjust to. Symptoms observed or reported requiring current level of care include agitation, anxiety, depressed mood, irritability, medical problems, and worry. Observations/Mental Status: Mr. Fink was seen in his hospital room at [facility]. The patient was a good historian. Mr. Laws general approach to the evaluation indicated interest. Orientation was intact for person, place, time, and situation. Mr. Fink evidenced good understanding of the reason for the appointment. The predominant mood was that of euthymic with affect appropriate to expressed concerns and presenting problem. Immediate attention and concentration was unremarkable clinically during the interview. Level of intellectual functioning compared to same age peers was average range. Thought processes were found to be generally logical, coherent and goal directed. Thought content appeared normal. Tone of voice was normal and controlled and manner of speech was normal. Mr. Fink did have a speaking valve attached to his trach. Expressive speech was marked by fluent speech and language. Current destructive behavior patterns: none reported or indicated. Eye contact was good. Insight was average. Current/Previous Mental Health Treatment: Past psychiatric history: none reporte d. History of self or other harm: denied. History of abuse: denied. Recreational Drug Usage: Current use of alcohol or drugs: denied. It was noted in his medical records that following his accident Mr. Fink was positive for marijuana and methamphetamines. 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 Legal History: Legal history was reported to be denied. Family and Social Histories: Mr. Fink currently lives with his and two youngest sons Mr. Fink has prison goals of returning home once he is better capable of caring for his needs. He is accepting a transfer to a fdc/rehabilitation facility to make that progress before going home. Summary of Assessment Information/Prognosis: Mr. Laws presenting problem and symptoms appear consistent with a preliminary diagnosis of F43.23 Adjustment Disorder with Mixed Anxiety and Depressed Mood at this point. Current emotional symptoms are of moderate intensity. Diagnostic Impressions: ICD-10: F43.23 Adjustment Disorder with Mixed Anxiety and Depressed Mood Initial Treatment Plan/Recommendations: The recommendations at this time include the following: Antidepressant medication management in combination with the Ativan he is already taking. Mr. Fink would also benefit from a low dose of Seroquel to assist with agitation and sleep at bedtime. These recommendations have been provided to Dr. Cordero. Mr. Fink verbalized understanding of these recommendations and an intention to comply. MEHNAZ HARRISON [facility] Jan 12, 2019 15:32
--- NOTE | 2019-01-12 17:15 | Diagnostic Imaging Report ---
PROCEDURE: CT angiography of the chest with contrast. TECHNIQUE: Multiple contiguous axial images were obtained through the chest after uneventful bolus administration of intravenous contrast. 3D reconstructed CTA MIP acquisitions were also performed. Auto Exposure Controls were utilized during the CT exam to meet ALARA standards for radiation dose reduction. INDICATION: History of recent trauma, fall from a three-story height. History of surgery. CORRELATION STUDY: CT chest, 12/07/2018. FINDINGS: Since the prior study, endotracheal has been exchanged for a tracheostomy tube. The ostomy is at the approximate level of the thyroid gland. The tip terminates within the trachea at the plane at the level of the aortic arch. A left upper extremity central line is present. Tip terminates at the expected confluence of the innominate vein and high superior vena cava. Tip is directed towards the posterior right wall of the SVC. The heart size is mildly enlarged. No significant pericardial effusion. The thoracic aorta is of relatively normal caliber. No intraluminal abnormality. Mildly prominent mediastinal lymph nodes. The pulmonary arteries demonstrate no significant filling defect to suggest pulmonary embolism. Surgical changes with multiple plates over the right posterior rib fractures are present. Additional displaced fractures are also noted. There does appear to be some reparative changes with callus formation demonstrates. Overlying pleural thickening and/or fluid is noted. Small left pleural effusion. There does appear to be some secretions in the lower aspect of the trachea, dependently. There are wispy like densities at the lung bases which could be reflective of atelectasis/hypoventilation or small patchy areas of infiltrate. Findings are most pronounced over the right lower lobe. Possibly some residual pulmonary contusion could also account for this. Multiple right thoracic transverse process fracture is again demonstrated. Visualized portion of the upper abdomen demonstrates presence of a gastrostomy tube. Stomach is distended with fluid and gas. Question of some potential reflux into the low esophagus. IMPRESSION: 1. No CT evidence for pulmonary embolism. 2. Interval placement of a tracheostomy tube and gastric tube as well as left upper extremity central line. Tip of the left upper extremity central line at the confluence of the innominate vein and superior vena cava. 3. Postoperative changes with interval fixation of multiple right-sided rib fracture deformities, some early healing. 4. Small pleural effusions as well as pleural thickening along the right left posterior lateral chest wall rib fractures. 5. Scattered areas of residual pulmonary contusion may be somewhat improved with the possibility of superimposed infiltrate not excluded. Followup imaging if clinically warranted. 6. Stomach is noted to be distended with gas and retained gastric contents. This could simply be owing to recent meal placement through the tube. The possibly of delayed gastric outlet emptying or gastroparesis is not excluded. Additionally there may be some small amount of reflux. Dictated by: Dictated on workstation # [id number]
[2019-01-12 17:21] VITALS: BP 144/81
[2019-01-12] MEDS: MONTELUKAST 10 MG (SINGULAIR) TAB PO SCH (21:32)
[2019-01-12] MEDS: ALPRAZolam 0.5 MG (XANAX) TAB PO PRN (21:32)
[2019-01-12] MEDS: QUEtiapine 25 MG (SEROquel) TAB IMMEDIATE RELEASE PO SCH (21:32)
[2019-01-12] MEDS: MELATONIN 3 MG TABLET PO SCH (21:35)
[2019-01-13] MEDS: RT-ALBUTEROL/IPRATROPIUM 3 ML (DUONEB) VIAL INH SCH ×6 (01:30→20:40)
[2019-01-13] MEDS: aCETylcysteine 20% (MUCOMYST) 30ML SOLN VIAL INH SCH ×6 (01:31→20:45)
[2019-01-13] MEDS: VANCOMYCIN 750 MG/NS 250 ML IVPB IV SCH ×6 (02:55→18:26)
[2019-01-13] MEDS: PIPERACILLIN/TAZO 4.5 GM/NS 100 ML IV SCH ×6 (02:55→19:43)
[2019-01-13 05:21] LABS: BASOPHILS % (AUTO) 0 % (0-10); EOSINOPHILS # (AUTO) 0.1 10^3/uL (0.0-0.3); EOSINOPHILS % (AUTO) 2 % (0-10); HEMATOCRIT 33 % (40-54); HEMOGLOBIN 10.1 G/DL (13.3-17.7); LYMPHOCYTES # (AUTO) 2.4 X 10^3 (1.0-4.0); LYMPHOCYTES % (AUTO) 32 % (12-44); MEAN CORPUSCULAR HEMOGLOBIN 31 PG (25-34); MEAN CORPUSCULAR HGB CONC 31 G/DL (32-36); MEAN CORPUSCULAR VOLUME 99 FL (80-99); MEAN PLATELET VOLUME 8.6 FL (7.4-10.4); MONOCYTES # (AUTO) 1.1 X 10^3 (0.0-1.0); MONOCYTES % (AUTO) 14 % (0-12); NEUTROPHILS # (AUTO) 3.8 X 10^3 (1.8-7.8); NEUTROPHILS % (AUTO) 52 % (42-75); PLATELET COUNT 235 10^3/uL (130-400); RED CELL DISTRIBUTION WIDTH 15.3 % (10.0-14.5); WHITE BLOOD COUNT 7.4 10^3/uL (4.3-11.0)
[2019-01-13 05:31] LABS: BUN/CREATININE RATIO 12; CALCIUM 9.4 MG/DL (8.5-10.1); CARBON DIOXIDE 25 MMOL/L (21-32); CHLORIDE 107 MMOL/L (98-107); CREATININE SERUM 0.65 MG/DL (0.60-1.30); GFR ESTIMATED > 60; GLUCOSE 72 MG/DL (70-105); MAGNESIUM 1.7 MG/DL (1.8-2.4); PHOSPHORUS 3.3 MG/DL (2.3-4.7); POTASSIUM 3.7 MMOL/L (3.6-5.0); SODIUM 141 MMOL/L (135-145)
[2019-01-13] MEDS: guaiFENesin SYRUP 100 MG/5 ML 10 ML (ROBITUSSIN SF) PEG SCH ×3 (05:47→21:09)
[2019-01-13] MEDS: KCL 20 MEQ TAB (K-DUR) PO SCH (05:48)
[2019-01-13] MEDS: inSUlin ASPART (NovoLOG) 1 UNIT/0.01 ML (CHARGE PER UNIT) SC SCH ×3 (05:48→18:18)
[2019-01-13 06:23] VITALS: BP 107/70
--- NOTE | 2019-01-13 08:00 | Pulmonary Progress Note ---
Subjective Time Seen by a Provider: 12:25 Subjective/Events-last exam No complications noted. Sepsis Event Evaluation Height, Weight, BMI Height: 5'3.00" Weight: 147lbs. 8.0oz. 66.575085hw; 26.1 BMI Method:Stated Exam Exam Vital Signs Date Time Temp Pulse Resp B/P (MAP) Pulse Ox O2 Delivery O2 Flow Rate FiO2 01/13/19 07:41 94 Trach Collar 10.00 35 01/13/19 06:23 97.3 73 20 107/70 (82) 98 Trach Collar 01/12/19 21:00 Trach Collar 10.00 35 01/12/19 20:36 96 Trach Collar 10.00 35 01/12/19 17:21 97.6 52 16 144/81 (102) 100 Trach Collar 01/12/19 14:31 97 Trach Collar 10.00 35 01/12/19 10:15 91 Trach Collar 6.00 35 01/12/19 08:00 Trach Collar 10.00 35 I & O 01/13/19 07:00 Intake Total 1187.5 ml Output Total 3800 ml Balance -2612.5 ml Height & Weight Height: 5'3.00" Weight: 147lbs. 8.0oz. 66.383468vj; 26.1 BMI Method:Stated General Appearance: No Apparent Distress, Chronically ill HEENT: PERRL/EOMI, Pharynx Normal Neck: Full Range of Motion, Non Tender, Supple Respiratory: Chest Non Tender, No Accessory Muscle Use, No Respiratory Distress Cardiovascular: Regular Rate, Rhythm, No Edema Gastrointestinal: normal bowel sounds, non tender, soft Extremity: Normal Capillary Refill, Normal Inspection, No Pedal Edema Neurologic/Psychiatric: Alert, Oriented x3 Skin: Normal Color, Warm/Dry Lymphatic: No Adenopathy Results Lab Laboratory Tests 01/12/19 05:30 01/13/19 05:05 Assessment/Plan Assessment/Plan 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 Nesbitt at [facility] Tracheostomy -PT currently has uncuffed trach tube -sputum culture pending -Pt sounds more coarse today -SVNS with duoneb and mucomyst Decubitus ulcer stage 4 -wound care Rib plating on the right Closed right scapular fracture Diabetes mellitus [id number] requiring insulin PEG tube status -Swallow eval Anemia -Monitor Hypertension Neurogenic bladder with Zamarripa catheter Decubitus ulcer in need of debridement -Wound vac -Surgery following Illicit drug use ALONDRA HUSSEIN DO Jan 13, 2019 08:00
[2019-01-13] MEDS: MAGNESIUM 1 GM/100 ML IVPB 100 ML IV SCH ×3 (08:21→11:31)
[2019-01-13] MEDS: SENNA W/DOCUSATE (SENOKOT S) TABLET PO SCH ×2 (09:00→21:00)
[2019-01-13] MEDS: LORATADINE (CLARITIN) 10 MG TAB PO SCH (09:58)
[2019-01-13] MEDS: MIDODRINE 10 MG (PROAMATINE) TAB PO SCH ×3 (09:58→21:02)
[2019-01-13] MEDS: POT PHOS/NA PHOS (K-PHOS NEUTRAL) PO SCH ×2 (09:59→21:00)
[2019-01-13] MEDS: FAMOTIDINE 20 MG (PEPCID) TABLET PO SCH ×2 (09:59→21:01)
--- NOTE | 2019-01-13 11:34 | PM&R Progress Note ---
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 He was unable to maintain his airway. He was intubated at the scene. He was assessed in the ER by Dr. Vaughan trauma surgeon found to have significant hypotension requiring aggressive IV fluids and pressor therapy but then was assessed that he was likely an spinal cord shock and multiple right rib fractures with flail chest requiring transfer to [facility] trauma surgery which resulted in multiple procedures including tracheostomy due to failing weaning protocol on ventilator, PEG tube placement, spine MRIs confirming C3-C7 spinal cord injury complete with plating of ribs 510 on the right side and right sided chest tube. He was found to have drug screen positive for marijuana and methamphetamine. Neurosurgery was consulted perform decompressive laminectomy on C3-C7 with C4-C5 autograft bone screws and rods. He was diagnosed with Haemophilus influenza while intubated and that treatment was completed. He did have rhabdomyolysis from his injuries requiring aggressive IV fluids but they all resolved. Hyperglycemia was diagnosed and he was started on insulin and elevated liver enzymes have improved since admission and hepatitis viral panel along with HIV were negative. He did receive 2 units of packed red blood cells hospitalized. Currently patient is requiring wound care consult by Dr. Craven and general surgery consultation by Dr. García because additional debridement of the sacral decubitus ulcer will be required. He will remain with the c-collar in place until seen Dr. Nesbitt on 01/30/19. Hemoglobin today is 10.1. Dr. Arcos's been consulted for pulmonary issues which she is having increased secretions today in addition urology will be consulted for Zamarripa catheter maintenance for neurogenic bladder. I did speak with Dr. Arcos who will panculture the patient and change breathing treatments to clear secretions. Patient remains total care with quadriplegia. Subjective/Events-last exam Seroquel 50 MG at night really helped him sleep and there were no behaviors last night Psychiatric consultation called me yesterday and recommended the addition of the Seroquel at night to treat any psychosis in the addition of Celexa for depression Patient eating well no longer on tube feedings Bowels are moving so holding laxatives [facility] evaluating him for intermediate placement since discharge home is not an option Denies any other significant pain. Is able to move his right arm. Coarseness of the breath sounds continue but much improved. Reviewed consultation notes. Status post debridement by Dr. García maintain on broad-spectrum antibiotics Review of Systems Neurological: Weakness, Numbness, Incoordination Objective Exam Vital Signs Vital Signs Date Time Temp Pulse Resp B/P (MAP) Pulse Ox O2 Delivery O2 Flow Rate FiO2 01/13/19 11:04 98 Trach Collar 01/13/19 07:41 10.00 35 01/13/19 06:23 97.3 73 20 107/70 (82) Capillary Refill : Less Than 3 SecondsLess Than 3 Seconds General Appearance: No Apparent Distress, WD/WN, Chronically ill, Thin HEENT: PERRL/EOMI, Normal ENT Inspection, Pharynx Normal, Moist Mucous Membranes Neck: Full Range of Motion, Normal Inspection, Non Tender, Supple Respiratory: Chest Non Tender, No Accessory Muscle Use, No Respiratory Distress, Crackles, Decreased Breath Sounds, Wheezing, Other (trach in place) Cardiovascular: Regular Rate, Rhythm, No Edema, No Gallop, No JVD, No Murmur Gastrointestinal: Normal Bowel Sounds, No Organomegaly, No Pulsatile Mass, Soft, Other (PEG in place) Back: Normal Inspection, No CVA Tenderness, No Vertebral Tenderness Extremity: Normal Capillary Refill Neurologic/Psychiatric: Alert, Oriented x3, court recording monitor II-XII Norm as Tested, Depressed Affect, Motor Weakness (bilateral lower extremities and deficits at w aist) Skin: Normal Color, Warm/Dry, Other (decubitus ulcer coccyx, right heel ulcer) Lymphatic: No Adenopathy Results/Procedures Lab Laboratory Tests 01/13/19 05:05 Patient resulted labs reviewed. FIM Transfers Therapy Code Descriptions/Definitions Functional [place] Measure: 0=Not Assessed/NA 4=Minimal Assistance 1=Total Assistance 5=Supervision or Setup 2=Maximal Assistance 6=Modified [place] 3=Moderate Assistance 7=Complete [place] Therapy Quality Codes: 6 Independent with activity with or without an assistive device 5 Patient requires set up or clean up by helper. Patient completes activity by themselves 4 Supervision or touching assist (CGA). [place] provide cues , steadying assist 3 The helper provides less than half the effort to complete the activity 2 The helper provides more than half the effort to complete the activity 1 Dependent. The helper does all the effort to complete an activity 7 Patient refused to complete or attempt activity 9 The patient did not perform the activity before the current illness or injury 88 Not attempted due to Medical conditions or safety concerns Transfers (B, C, W/C) (FIM): 1 Scootin Rollin Roll Left to Right (QC): 1 Supine to/from Sit: 1 Sit to Lying (QC): 1 Chair/Dnw-ek-Nubkd Xfer(QC): 1 Bed to/from Chair: 1 Car Transfer (QC): 1 Gait Training Does the Patient Walk?: No and Walking Goal NOT indicated Wheelchair Training Does the Pt Use a Wheelchair?: Yes Wheelchair (FIM): 3 Distance: 150' Wheelchair Level of Assist: 3 Type of Wheelchair: Motorized Mental Status/Objective Comprehension: 6 Expression: 6 Social Interaction: 6 Problem Solvin Memory: 4 ADL-Treatment Feedin (hand over hand feed ) Eating (QC): 1 Groomin Bathin Shower/Bathe Self (QC): 1 Upper Extremity Dressin Upper Body Dressing (QC): 1 (pulley maintainer shirt ) Lower Extremity Dressin Lower Body Dressing (QC): 1 On/Off Footwear (QC): 1 Toiletin Toileting Hygiene (QC): 1 Assessment/Plan Assessment and Plan Assess & Plan/Chief Complaint Assessment: 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 Nesbitt at [facility] 12/07/18 Rib plating on the right Closed right scapular fracture Diabetes mellitus oso-or-pdgloas requiring insulin PEG tube status Trach dependent Anemia Hypertension DVT prophylaxis with Lovenox Neurogenic bladder requiring Zamarripa catheter and urology recommends maintained to help heal decubitus ulcer in the meantime Decubitus ulcer s/p debridement OJ Psychosis Depression Plan: Broad-spectrum antibiotics for decubitus ulcer infection Debridement per Dr. García and Dr. Craven Wound VAC after debridement Maintain on Lovenox Consult urology Rehabilitation to focus on transfers and lessen burden on caretakers group home placement? Remove neck brace while sleeping to aid in alleviation of discomfort causing behaviors Stop tube feedings and begin eating more with swallowing exercises Seroquel at night Celexa in the morning (1) Post-traumatic quadriplegia (2) Diabetes mellitus (3) Anemia (4) Anxiety (5) Chronic pain (6) Neurogenic bladder (7) HLD (hyperlipidemia) (8) Tracheostomy dependent (9) DVT prophylaxis (10) Closed right scapular fracture (11) Right rib fracture (12) Right pulmonary contusion (13) Decubitus ulcer of coccygeal region, stage 4 (14) Shock due to spinal cord injury (15) Paresthesias (16) Illicit drug use (17) Cellulitis (18) Hypertension (19) Type 2 diabetes mellitus with hyperglycemia (20) PEG (percutaneous endoscopic gastrostomy) status MARGUERITE GAN DO Jan 13, 2019 11:34
--- NOTE | 2019-01-13 12:10 | Physical Therapy Daily Note ---
PT Daily Note-Current Subjective Pts. family present. Pt agrees to LE stretching . States he is breathing better after RT removed " a big chunk that looked like chicken and noodles" Pain Location: No Pain Reported Mental Status Patient Orientation: Normal For Age Transfers Therapy Code Descriptions/Definitions Functional [place] Measure: 0=Not Assessed/NA 4=Minimal Assistance 1=Total Assistance 5=Supervision or Setup 2=Maximal Assistance 6=Modified [place] 3=Moderate Assistance 7=Complete [place] Therapy Quality Codes: 6 Independent with activity with or without an assistive device 5 Patient requires set up or clean up by helper. Patient completes activity by themselves 4 Supervision or touching assist (CGA). [place] provide cues , steadying assist 3 The helper provides less than half the effort to complete the activity 2 The helper provides more than half the effort to complete the activity 1 Dependent. The helper does all the effort to complete an activity 7 Patient refused to complete or attempt activity 9 The patient did not perform the activity before the current illness or injury 88 Not attempted due to Medical conditions or safety concerns Exercises Supine Ex: Ankle pumps, Heel Slides, Straight leg raise, Hip abd/add Supine Reps: 10 (stretching HC,HS,ADDS) Assessment Current Status: Fair Progress PT Short Term Goals Short Term Goals Time Frame: Jan 17, 2019 Transfers (B,C,W/C) (FIM): 1 Wheelchair (FIM): 4 (if he can get a power chair) Wheelchair Distance: 150' Wheelchair Level of Assist: 4 PT Skilled Nursing Goals Skilled Nursing Goals PT Sawmill Worker Goals Time Frame: Jan 31, 2019 Transfers (B,C,W/C) (FIM): 1 Sit to Lying (QC): 1 Lying-Sitting on Side/Bed(QC): 1 Rollin Roll Left to Right (QC): 2 Chair/Qss-ym-Lotkt Xfer(QC): 1 Car Transfer (QC): 1 Wheelchair (FIM): 5 (if he can get a power chair) Distance: 150' Wheelchair Level of Assist: 5 Wheel 50 feet with 2 turns (QC: 4 PT Plan Treatment/Plan Treatment Plan: Continue Plan of Care Treatment Plan: Bed Mobility, Concurrent Therapy, Education, Functional Activity [place], Functional Strength, Group Therapy, Safety, Therapeutic Exercise, Transfers Treatment Duration: Jan 31, 2019 Frequency: At least 5 of 7 days/Wk (IRF) Estimated Hrs Per Day: 1.5 hours per day Patient and/or Family Agrees t: Yes Safety Risks/Education Patient Education: Correct Positioning Teaching Recipient: Patient Time/GCodes Time In: 845 Time Out: 900 Total Billed Treatment Time: 15 Total Billed Treatment 1,EX15m G Codes Necessary: ANTOINE Davis SAMPLE BOOK MAKER Jan 13, 2019 12:10
[2019-01-13] MEDS: COLLAGENASE 30 GM (SANTYL) TUBE TP SCH (14:00)
[2019-01-13] MEDS: ENOXAPARIN 40 MG/0.4 ML (LOVENOX) SYR SC SCH (14:30)
[2019-01-13 18:00] VITALS: BP 153/80
[2019-01-13] MEDS: ALPRAZolam 0.5 MG (XANAX) TAB PO PRN (21:00)
[2019-01-13] MEDS: QUEtiapine 25 MG (SEROquel) TAB IMMEDIATE RELEASE PO SCH (21:00)
[2019-01-13] MEDS: MELATONIN 3 MG TABLET PO SCH (21:01)
[2019-01-13] MEDS: MONTELUKAST 10 MG (SINGULAIR) TAB PO SCH (21:01)
[2019-01-14] MEDS: VANCOMYCIN 750 MG/NS 250 ML IVPB IV SCH ×6 (02:30→18:30)
[2019-01-14] MEDS: RT-ALBUTEROL/IPRATROPIUM 3 ML (DUONEB) VIAL INH SCH ×5 (02:48→19:25)
[2019-01-14] MEDS: aCETylcysteine 20% (MUCOMYST) 30ML SOLN VIAL INH SCH ×5 (02:54→19:25)
[2019-01-14] MEDS: PIPERACILLIN/TAZO 4.5 GM/NS 100 ML IV SCH ×6 (03:39→19:30)
[2019-01-14] MEDS: guaiFENesin SYRUP 100 MG/5 ML 10 ML (ROBITUSSIN SF) PEG SCH ×3 (05:35→21:09)
[2019-01-14] MEDS: APAP 325 MG/10.15 ML LIQ (TYLENOL) UDC PO PRN (05:36)
[2019-01-14 05:38] VITALS: BP 123/76
[2019-01-14 06:27] LABS: BASOPHILS % (AUTO) 0 % (0-10); EOSINOPHILS # (AUTO) 0.1 10^3/uL (0.0-0.3); EOSINOPHILS % (AUTO) 1 % (0-10); HEMATOCRIT 32 % (40-54); LYMPHOCYTES # (AUTO) 2.4 X 10^3 (1.0-4.0); LYMPHOCYTES % (AUTO) 33 % (12-44); MEAN CORPUSCULAR HEMOGLOBIN 31 PG (25-34); MEAN CORPUSCULAR HGB CONC 31 G/DL (32-36); MEAN CORPUSCULAR VOLUME 99 FL (80-99); MEAN PLATELET VOLUME 8.5 FL (7.4-10.4); MONOCYTES % (AUTO) 14 % (0-12); NEUTROPHILS # (AUTO) 3.6 X 10^3 (1.8-7.8); NEUTROPHILS % (AUTO) 51 % (42-75); PLATELET COUNT 235 10^3/uL (130-400); RED CELL DISTRIBUTION WIDTH 15.5 % (10.0-14.5); WHITE BLOOD COUNT 7.1 10^3/uL (4.3-11.0)
[2019-01-14 06:29] LABS: BUN/CREATININE RATIO 14; CALCIUM 9.3 MG/DL (8.5-10.1); CARBON DIOXIDE 23 MMOL/L (21-32); CHLORIDE 107 MMOL/L (98-107); CREATININE SERUM 0.65 MG/DL (0.60-1.30); GFR ESTIMATED > 60; GLUCOSE 100 MG/DL (70-105); MAGNESIUM 1.9 MG/DL (1.8-2.4); POTASSIUM 3.6 MMOL/L (3.6-5.0); SODIUM 142 MMOL/L (135-145)
[2019-01-14] MEDS: inSUlin ASPART (NovoLOG) 1 UNIT/0.01 ML (CHARGE PER UNIT) SC SCH ×5 (06:40→21:09)
[2019-01-14] MEDS: KCL 20 MEQ TAB (K-DUR) PO SCH (06:55)
[2019-01-14] MEDS: SENNA W/DOCUSATE (SENOKOT S) TABLET PO SCH ×2 (08:12→21:07)
[2019-01-14] MEDS: ALPRAZolam 0.5 MG (XANAX) TAB PEG PRN (08:13)
[2019-01-14] MEDS: POT PHOS/NA PHOS (K-PHOS NEUTRAL) PO SCH ×2 (08:13→21:04)
[2019-01-14] MEDS: MIDODRINE 10 MG (PROAMATINE) TAB PO SCH ×3 (08:13→21:07)
[2019-01-14] MEDS: FAMOTIDINE 20 MG (PEPCID) TABLET PO SCH ×2 (08:13→21:04)
[2019-01-14] MEDS: LORATADINE (CLARITIN) 10 MG TAB PO SCH (08:13)
--- NOTE | 2019-01-14 09:44 | Pulmonary Progress Note ---
Subjective Time Seen by a Provider: 12:24 Subjective/Events-last exam Copious amounts of sputum production. Sepsis Event Evaluation Height, Weight, BMI Height: 5'3.00" Weight: 147lbs. 8.0oz. 66.053281oh; 26.1 BMI Method:Stated Exam Exam Vital Signs Date Time Temp Pulse Resp B/P (MAP) Pulse Ox O2 Delivery O2 Flow Rate FiO2 01/14/19 07:17 95 Trach Collar 6.00 28 01/14/19 05:38 96.4 80 18 123/76 (92) 98 Trach Collar 01/14/19 02:54 96 Trach Collar 10.00 30 01/13/19 21:00 Trach Collar 10.00 30 01/13/19 20:40 96 Trach Collar 10.00 35 01/13/19 18:00 97.7 74 20 153/80 (104) 98 Trach Collar 01/13/19 14:53 92 Trach Collar 10.00 35 01/13/19 11:04 98 Trach Collar I & O 01/14/19 07:00 Intake Total 2572.5 ml Output Total 3350 ml Balance -777.5 ml Height & Weight Height: 5'3.00" Weight: 147lbs. 8.0oz. 66.442493er; 26.1 BMI Method:Stated General Appearance: WD/WN HEENT: Pharynx Normal, Other (tracheostomy in place.) Respiratory: No Accessory Muscle Use, No Respiratory Distress, Decreased Breath Sounds Cardiovascular: Regular Rate, Rhythm, No Edema, No Murmur Capillary Refill: Less Than 3 Seconds Gastrointestinal: normal bowel sounds, non tender, soft, no organomegaly Extremity: Normal Capillary Refill, Non Tender, No Pedal Edema Neurologic/Psychiatric: Alert, Oriented x3 Skin: Normal Color, Warm/Dry Lymphatic: No Adenopathy Results Lab Laboratory Tests 01/13/19 05:05 01/14/19 05:45 Assessment/Plan Assessment/Plan 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 Nesbitt at [facility] Tracheostomy -sputum culture pending -Pt sounds more coarse today -SVNS with duoneb and mucomyst Decubitus ulcer stage 4 -wound care Rib plating on the right Closed right scapular fracture Diabetes mellitus hyq-we-jtdwyga requiring insulin PEG tube status -Swallow eval Anemia -Monitor Hypertension Neurogenic bladder with Zamarripa catheter Decubitus ulcer in need of debridement -Wound vac -Surgery following Illicit drug use ALONDRA HUSSEIN DO Jan 14, 2019 09:44
--- NOTE | 2019-01-14 11:31 | PM&R Progress Note ---
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 He was unable to maintain his airway. He was intubated at the scene. He was assessed in the ER by Dr. Vaughan trauma surgeon found to have significant hypotension requiring aggressive IV fluids and pressor therapy but then was assessed that he was likely an spinal cord shock and multiple right rib fractures with flail chest requiring transfer to [facility] trauma surgery which resulted in multiple procedures including tracheostomy due to failing weaning protocol on ventilator, PEG tube placement, spine MRIs confirming C3-C7 spinal cord injury complete with plating of ribs 510 on the right side and right sided chest tube. He was found to have drug screen positive for marijuana and methamphetamine. Neurosurgery was consulted perform decompressive laminectomy on C3-C7 with C4-C5 autograft bone screws and rods. He was diagnosed with Haemophilus influenza while intubated and that treatment was completed. He did have rhabdomyolysis from his injuries requiring aggressive IV fluids but they all resolved. Hyperglycemia was diagnosed and he was started on insulin and elevated liver enzymes have improved since admission and hepatitis viral panel along with HIV were negative. He did receive 2 units of packed red blood cells hospitalized. Currently patient is requiring wound care consult by Dr. Craven and general surgery consultation by Dr. García because additional debridement of the sacral decubitus ulcer will be required. He will remain with the c-collar in place until seen Dr. Nesbitt on 01/30/19. Hemoglobin today is 10.1. Dr. Arcos's been consulted for pulmonary issues which she is having increased secretions today in addition urology will be consulted for Zamarripa catheter maintenance for neurogenic bladder. I did speak with Dr. Arcos who will panculture the patient and change breathing treatments to clear secretions. Patient remains total care with quadriplegia. Subjective/Events-last exam Seroquel 50 MG at night has really helped him sleep and there were no behaviors again last night Very positive today Psychiatric consultation called me Tuesday and recommended the addition of the Seroquel at night to treat any psychosis in the addition of Celexa for depression which has really helped him Patient eating well no longer on tube feedings and now his abdomen is distended causing concern about ileus so will consult Dr Mckeon admissions director for Dr García Bowels are moving most recent was small one [facility] since discharge home is not an option Denies any other significant pain. Moving his right arm more with extension and left hand is now able to twist Coarseness of the breath sounds continue but much improved. Reviewed consultation notes. Status post debridement by Dr. García maintain on broad-spectrum antibiotics but it appears to be worsened and will likely need additional surgery Review of Systems General: Fatigue Gastrointestinal: Abdominal Pain Neurological: Weakness, Numbness, Incoordination Objective Exam Vital Signs Vital Signs Date Time Temp Pulse Resp B/P (MAP) Pulse Ox O2 Delivery O2 Flow Rate FiO2 01/14/19 14:19 95 Trach Collar 6.00 28 01/14/19 05:38 96.4 80 18 123/76 (92) Capillary Refill : Less Than 3 SecondsLess Than 3 Seconds General Appearance: No Apparent Distress, WD/WN, Chronically ill, Thin HEENT: PERRL/EOMI, Normal ENT Inspection, Pharynx Normal, Moist Mucous Membranes Neck: Full Range of Motion, Normal Inspection, Non Tender, Supple Respiratory: Chest Non Tender, No Accessory Muscle Use, No Respiratory Distress, Crackles, Decreased Breath Sounds, Wheezing, Other (trach in place) Cardiovascular: Regular Rate, Rhythm, No Edema, No Gallop, No JVD, No Murmur Gastrointestinal: Normal Bowel Sounds, No Organomegaly, No Pulsatile Mass, Abnormal Bowel Sounds, Distended, Other (PEG in place) Back: Normal Inspection, No CVA Tenderness, No Vertebral Tenderness Extremity: Normal Capillary Refill Neurologic/Psychiatric: Alert, Oriented x3, 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 FIM Transfers Therapy Code Descriptions/Definitions Functional [place] Measure: 0=Not Assessed/NA 4=Minimal Assistance 1=Total Assistance 5=Supervision or Setup 2=Maximal Assistance 6=Modified [place] 3=Moderate Assistance 7=Complete [place] Therapy Quality Codes: 6 Independent with activity with or without an assistive device 5 Patient requires set up or clean up by helper. Patient completes activity by themselves 4 Supervision or touching assist (CGA). [place] provide cues , steadying assist 3 The helper provides less than half the effort to complete the activity 2 The helper provides more than half the effort to complete the activity 1 Dependent. The helper does all the effort to complete an activity 7 Patient refused to complete or attempt activity 9 The patient did not perform the activity before the current illness or injury 88 Not attempted due to Medical conditions or safety concerns Transfers (B, C, W/C) (FIM): 1 Scootin Rollin Roll Left to Right (QC): 1 Supine to/from Sit: 1 Sit to Lying (QC): 1 Chair/[id number]-[id number] Xfer(QC): 1 Bed to/from Chair: 1 Car Transfer (QC): 1 Gait Training Does the Patient Walk?: No and Walking Goal NOT indicated Wheelchair Training Does the Pt Use a Wheelchair?: Yes Wheelchair (FIM): 3 Distance: 150' Wheelchair Level of Assist: 3 Type of Wheelchair: Motorized Mental Status/Objective Comprehension: 6 Expression: 6 Social Interaction: 6 Problem Solvin Memory: 4 ADL-Treatment Feedin (hand over hand feed ) Eating (QC): 1 Groomin Bathin Shower/Bathe Self (QC): 1 Upper Extremity Dressin Upper Body Dressing (QC): 1 (cable puller shirt ) Lower Extremity Dressin Lower Body Dressing (QC): 1 On/Off Footwear (QC): 1 Toiletin Toileting Hygiene (QC): 1 Assessment/Plan Assessment and Plan Assess & Plan/Chief Complaint Assessment: 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 Nesbitt at [facility] 12/07/18 Rib plating on the right Closed right scapular fracture Diabetes mellitus [id number] requiring insulin PEG tube status Trach dependent Anemia Hypertension DVT prophylaxis with Lovenox Neurogenic bladder requiring Zamarripa catheter and urology recommends maintained to help heal decubitus ulcer in the meantime Decubitus ulcer s/p debridement but appears to need additional debridement tomorrow OJ Psychosis resolved with Seroquel Depression placed on Celexa Ileus? Plan: Broad-spectrum antibiotics for decubitus ulcer infection Debridement per Dr. García and Dr. Craven and it appears to need additional debridement Wound VAC after debridement Maintain on Lovenox Consult urology is appreciated Rehabilitation to focus on transfers and lessen burden on caretakers longterm placement? Remove neck brace while sleeping to aid in alleviation of discomfort causing behaviors Stop tube feedings and begin eating more with swallowing exercises but will need Dr Mckeon consultation for possible ileus revealing distention on exam Seroquel at night Celexa in the morning (1) Post-traumatic quadriplegia (2) Diabetes mellitus (3) Anemia (4) Anxiety (5) Chronic pain (6) Neurogenic bladder (7) HLD (hyperlipidemia) (8) Tracheostomy dependent (9) DVT prophylaxis (10) Closed right scapular fracture (11) Right rib fracture (12) Right pulmonary contusion (13) Decubitus ulcer of coccygeal region, stage 4 (14) Shock due to spinal cord injury (15) Paresthesias (16) Illicit drug use (17) Cellulitis (18) Hypertension (19) Type 2 diabetes mellitus with hyperglycemia (20) PEG (percutaneous endoscopic gastrostomy) status MARGUERITE GAN DO Jan 14, 2019 11:30
--- NOTE | 2019-01-14 12:48 | Progress Note ---
Subjective Date Seen by a Provider: Jan 14, 2019 Time Seen by a Provider: 12:00 Subjective/Events-last exam patient seen and evaluated for abd distention. pt s/p high level fall, spinal cord injury and quadraplegia. has PEG tube and has been tolerating TF's and some PO. developed abd distention today. no pain, nausea/vomiting, fever/chills. Objective Exam Vital Signs Date Time Temp Pulse Resp B/P (MAP) Pulse Ox O2 Delivery O2 Flow Rate FiO2 01/14/19 09:59 96 Trach Collar 6.00 28 01/14/19 07:17 95 Trach Collar 6.00 28 01/14/19 05:38 96.4 80 18 123/76 (92) 98 Trach Collar 01/14/19 02:54 96 Trach Collar 10.00 30 01/13/19 21:00 Trach Collar 10.00 30 01/13/19 20:40 96 Trach Collar 10.00 35 01/13/19 18:00 97.7 74 20 153/80 (104) 98 Trach Collar 01/13/19 14:53 92 Trach Collar 10.00 35 I & O 01/14/19 07:00 Intake Total 2572.5 ml Output Total 3350 ml Balance -777.5 ml Capillary Refill : Less Than 3 SecondsLess Than 3 Seconds General Appearance: No Apparent Distress HEENT: PERRL/EOMI Neck: Supple Respiratory: Lungs Clear, Decreased Breath Sounds Cardiovascular: Regular Rate, Rhythm Gastrointestinal: soft, distended Extremity: Normal Capillary Refill Neurologic/Psychiatric: Alert, Oriented x3 Skin: Normal Color Lymphatic: No Adenopathy Results Lab Laboratory Tests 01/13/19 19:02: Glucometer 230H 01/13/19 20:46: Glucometer 238H 01/14/19 05:45: White Blood Count 7.1, Red Blood Count 3.27L, Hemoglobin 10.0L, Hematocrit 32L, Mean Corpuscular Volume 99, Mean Corpuscular Hemoglobin 31, Mean Corpuscular Hemoglobin Concent 31L, Red Cell Distribution Width 15.5H, Platelet Count 235, Mean Platelet Volume 8.5, Neutrophils (%) (Auto) 51, Lymphocytes (%) (Auto) 33, Monocytes (%) (Auto) 14H, Eosinophils (%) (Auto) 1, Basophils (%) (Auto) 0, Neutrophils # (Auto) 3.6, Lymphocytes # (Auto) 2.4, Monocytes # (Auto) 1.0, Eosinophils # (Auto) 0.1, Basophils # (Auto) 0.0, Sodium Level 142, Potassium Level 3.6, Chloride Level 107, Carbon Dioxide Level 23, Anion Gap 12, Blood Urea Nitrogen 9, Creatinine 0.65, Estimat Glomerular Filtration Rate > 60, BUN/Creatinine Ratio 14, Glucose Level 100, Calcium Level 9.3, Magnesium Level 1.9 01/14/19 10:49: Glucometer 171H Microbiology 01/10/19 Blood Culture - Preliminary, Resulted No growth 01/10/19 Gram Stain - Final, Complete 01/10/19 Sputum Culture - Final, Complete Usual upper respiratory aaron YEAST Assessment/Plan Assessment/Plan Assess & Plan/Chief Complaint 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 abdominal distention today. was tolerating diet and having bowel fxn. will get AXR, suspect ileus. Clinical Quality Measures DVT/VTE Risk/Contraindication: Risk Factor Score Per Nursin RFS Level Per Nursing on Admit: 4+=Very High TON JORGE MD Jan 14, 2019 12:47
[2019-01-14] MEDS: METOCLOPRAMIDE INJ 10 MG/2 ML (REGLAN) IVP SCH ×2 (14:32→18:30)
[2019-01-14] MEDS: LORazepam INJ 2 MG/ML (ATIVAN) VIAL IVP PRN ×2 (14:33→21:36)
[2019-01-14] MEDS: ENOXAPARIN 40 MG/0.4 ML (LOVENOX) SYR SC SCH (14:33)
--- NOTE | 2019-01-14 14:37 | Diagnostic Imaging Report ---
Indication: Abdominal distention. Correlation is made with CT from 12/07/2018. Findings: Scattered gas-filled loops of small and large bowel but there are no findings of significant bowel dilation to suggest obstruction. There is a nonspecific tubing projecting over the left upper quadrant. Note is made of hardware related to previous right-sided rib fixation. Prior surgical clips in the right pelvis. There are advanced degenerative features within the lower lumbar spine. Impression: 1. Gas-filled loops of small and large bowel are present but there are no findings of significant bowel dilation to suggest obstruction. No supine demonstration of free air. Dictated by: Dictated on workstation # [id number]
[2019-01-14 17:07] VITALS: BP 126/77
[2019-01-14] MEDS: MELATONIN 3 MG TABLET PO SCH (21:04)
--- NOTE | 2019-01-14 21:07 | NUR ---
Received order to HOLD Levemir d/t NPO
[2019-01-14] MEDS: QUEtiapine 25 MG (SEROquel) TAB IMMEDIATE RELEASE PO SCH (21:08)
[2019-01-14] MEDS: MONTELUKAST 10 MG (SINGULAIR) TAB PO SCH (21:08)
[2019-01-15] MEDS: METOCLOPRAMIDE INJ 10 MG/2 ML (REGLAN) IVP SCH ×4 (00:27→18:13)
[2019-01-15] MEDS: RT-ALBUTEROL/IPRATROPIUM 3 ML (DUONEB) VIAL INH SCH ×7 (01:07→23:18)
[2019-01-15] MEDS: aCETylcysteine 20% (MUCOMYST) 30ML SOLN VIAL INH SCH ×6 (01:07→18:17)
[2019-01-15] MEDS: VANCOMYCIN 750 MG/NS 250 ML IVPB IV SCH ×6 (02:20→18:14)
[2019-01-15] MEDS: PIPERACILLIN/TAZO 4.5 GM/NS 100 ML IV SCH ×6 (04:25→20:13)
[2019-01-15 05:03] VITALS: BP 121/72
[2019-01-15] MEDS: guaiFENesin SYRUP 100 MG/5 ML 10 ML (ROBITUSSIN SF) PEG SCH ×3 (05:29→21:53)
[2019-01-15] MEDS: LORazepam INJ 2 MG/ML (ATIVAN) VIAL IVP PRN ×3 (05:29→11:41)
[2019-01-15] MEDS: inSUlin ASPART (NovoLOG) 1 UNIT/0.01 ML (CHARGE PER UNIT) SC SCH ×4 (06:32→21:48)
--- NOTE | 2019-01-15 08:22 | PM&R Progress Note ---
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 He was unable to maintain his airway. He was intubated at the scene. He was assessed in the ER by Dr. Vaughan trauma surgeon found to have significant hypotension requiring aggressive IV fluids and pressor therapy but then was assessed that he was likely an spinal cord shock and multiple right rib fractures with flail chest requiring transfer to [facility] trauma surgery which resulted in multiple procedures including tracheostomy due to failing weaning protocol on ventilator, PEG tube placement, spine MRIs confirming C3-C7 spinal cord injury complete with plating of ribs 510 on the right side and right sided chest tube. He was found to have drug screen positive for marijuana and methamphetamine. Neurosurgery was consulted perform decompressive laminectomy on C3-C7 with C4-C5 autograft bone screws and rods. He was diagnosed with Haemophilus influenza while intubated and that treatment was completed. He did have rhabdomyolysis from his injuries requiring aggressive IV fluids but they all resolved. Hyperglycemia was diagnosed and he was started on insulin and elevated liver enzymes have improved since admission and hepatitis viral panel along with HIV were negative. He did receive 2 units of packed red blood cells hospitalized. Currently patient is requiring wound care consult by Dr. Craven and general surgery consultation by Dr. García because additional debridement of the sacral decubitus ulcer will be required. He will remain with the c-collar in place until seen Dr. Nesbitt on 01/30/19. Hemoglobin today is 10.1. Dr. Arcos's been consulted for pulmonary issues which she is having increased secretions today in addition urology will be consulted for Zamarripa catheter maintenance for neurogenic bladder. I did speak with Dr. Arcos who will panculture the patient and change breathing treatments to clear secretions. Patient remains total care with quadriplegia. Subjective/Events-last exam Abdomen is less extended NPO still Softer abdomen noted today, had a BM yesterday and this morning and is passing gas No Behaviors since Seroquel started and Celexa in the morning Checked meds and labs Awaiting residential plan for him Wound appears to need additional debridement Antibiotics are to be completed today and will evaluate what Dr. García has planned Moving his right arm more with extension and left hand is now able to twist Reviewed consultation notes. Status post debridement by Dr. García maintained on broad-spectrum antibiotics but it appears to be worsened and will likely need additional surgery? Review of Systems General: Fatigue Neurological: Weakness, Numbness, Incoordination Objective Exam Vital Signs Vital Signs Date Time Temp Pulse Resp B/P (MAP) Pulse Ox O2 Delivery O2 Flow Rate FiO2 01/15/19 18:17 96 Trach Collar 6.00 28 01/15/19 15:46 96.5 94 14 111/69 (83) Capillary Refill : Less Than 3 SecondsLess Than 3 Seconds General Appearance: No Apparent Distress, WD/WN, Chronically ill, Thin HEENT: PERRL/EOMI, Normal ENT Inspection, Pharynx Normal, Moist Mucous Membranes Neck: Full Range of Motion, Normal Inspection, Non Tender, Supple Respiratory: Chest Non Tender, No Accessory Muscle Use, No Respiratory Distress, Crackles, Decreased Breath Sounds, Wheezing, Other (trach in place) Cardiovascular: Regular Rate, Rhythm, No Edema, No Gallop, No JVD, No Murmur Gastrointestinal: Normal Bowel Sounds, No Organomegaly, No Pulsatile Mass, Abnormal Bowel Sounds, Distended, Other (PEG in place) Back: Normal Inspection, No CVA Tenderness, No Vertebral Tenderness Extremity: Normal Capillary Refill Neurologic/Psychiatric: Alert, Oriented x3, 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 FIM Transfers Therapy Code Descriptions/Definitions Functional [place] Measure: 0=Not Assessed/NA 4=Minimal Assistance 1=Total Assistance 5=Supervision or Setup 2=Maximal Assistance 6=Modified [place] 3=Moderate Assistance 7=Complete [place] Therapy Quality Codes: 6 Independent with activity with or without an assistive device 5 Patient requires set up or clean up by helper. Patient completes activity by themselves 4 Supervision or touching assist (CGA). [place] provide cues , steadying assist 3 The helper provides less than half the effort to complete the activity 2 The helper provides more than half the effort to complete the activity 1 Dependent. The helper does all the effort to complete an activity 7 Patient refused to complete or attempt activity 9 The patient did not perform the activity before the current illness or injury 88 Not attempted due to Medical conditions or safety concerns Transfers (B, C, W/C) (FIM): 1 Scootin Rollin Roll Left to Right (QC): 1 Supine to/from Sit: 1 Sit to Lying (QC): 1 Chair/[id number]-ls-Uykbq Xfer(QC): 1 Bed to/from Chair: 1 Car Transfer (QC): 1 Gait Training Does the Patient Walk?: No and Walking Goal NOT indicated Wheelchair Training Does the Pt Use a Wheelchair?: Yes Wheelchair (FIM): 3 Distance: 150' Wheelchair Level of Assist: 3 Type of Wheelchair: Motorized Mental Status/Objective Comprehension: 6 Expression: 6 Social Interaction: 6 Problem Solvin Memory: 4 ADL-Treatment Feedin (hand over hand feed ) Eating (QC): 1 Groomin Bathin Shower/Bathe Self (QC): 1 Upper Extremity Dressin Upper Body Dressing (QC): 1 (tree puller shirt ) Lower Extremity Dressin Lower Body Dressing (QC): 1 On/Off Footwear (QC): 1 Toiletin Toileting Hygiene (QC): 1 Assessment/Plan Assessment and Plan Assess & Plan/Chief Complaint Assessment: 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 Nesbitt at [facility] 12/07/18 Rib plating on the right Closed right scapular fracture Diabetes mellitus [id number] requiring insulin PEG tube status Trach dependent Anemia Hypertension DVT prophylaxis with Lovenox Neurogenic bladder requiring Zamarripa catheter and urology recommends maintained to help heal decubitus ulcer in the meantime Decubitus ulcer s/p debridement but appears to need additional debridement tomorrow OJ Psychosis resolved with Seroquel Depression placed on Celexa Ileus? Plan: Broad-spectrum antibiotics for decubitus ulcer infection Debridement per Dr. García and Dr. Craven and it appears to need additional debridement Wound VAC after debridement Maintain on Lovenox Consult urology is appreciated Rehabilitation to focus on transfers and lessen burden on caretakers care home placement? Remove neck brace while sleeping to aid in alleviation of discomfort causing behaviors Stopped oral nutrition due to ileus Seroquel at night Celexa in the morning (1) Post-traumatic quadriplegia (2) Diabetes mellitus (3) Anemia (4) Anxiety (5) Chronic pain (6) Neurogenic bladder (7) HLD (hyperlipidemia) (8) Tracheostomy dependent (9) DVT prophylaxis (10) Closed right scapular fracture (11) Right rib fracture (12) Right pulmonary contusion (13) Decubitus ulcer of coccygeal region, stage 4 (14) Shock due to spinal cord injury (15) Paresthesias (16) Illicit drug use (17) Cellulitis (18) Hypertension (19) Type 2 diabetes mellitus with hyperglycemia (20) PEG (percutaneous endoscopic gastrostomy) status MARGUERITE GAN DO Jan 15, 2019 08:22
[2019-01-15] MEDS: SENNA W/DOCUSATE (SENOKOT S) TABLET PO SCH ×2 (09:00→21:35)
[2019-01-15] MEDS: POT PHOS/NA PHOS (K-PHOS NEUTRAL) PO SCH ×2 (09:00→21:12)
[2019-01-15] MEDS: FAMOTIDINE 20 MG (PEPCID) TABLET PO SCH ×2 (09:00→21:42)
[2019-01-15] MEDS: MIDODRINE 10 MG (PROAMATINE) TAB PO SCH ×3 (09:00→21:37)
[2019-01-15] MEDS: LORATADINE (CLARITIN) 10 MG TAB PO SCH (09:00)
--- NOTE | 2019-01-15 09:30 | NUR ---
TEXTED DR. ALAMO TO CHECK ON PLANS FOR THE DAY. PATIENT WAS ORDERED TO BE NPO TODAY. ABDOMEN IS SOFTER. PATIENT STATES IS EXPELLING FLATUS AND 2 LOOSE STOOLS YESTERDAY. IS DIABETIC AND LEVEMIR ON HOLD.
[2019-01-15 10:15] VITALS: BP 93/64
--- NOTE | 2019-01-15 10:15 | NUR ---
DR. ALAMO STATE HE IS OUT OF TOWN AND DR. SANFORD WILL SEE PATIENT TODAY. PATIENT COMPLAIN CAN'T BREATHE WELL AFTER GETTING UP IN CHAIR BY PT. WAS ASSISTED BACK TO BED. COMPLAINS OF A LOT OF MUCOUS. TRACHEAL SUCTIONED AND MODERATE AMOUNT OF WHITE MUCOUS RETURN. RT ALSO CALLED AND TX WAS GIVEN. PATIENT STATES FEELING BETTER NOW.
[2019-01-15 10:30] VITALS: BP 93/62
--- NOTE | 2019-01-15 12:03 | Physical Therapy Daily Note ---
PT Daily Note-Current Subjective Pt. in bed, states he thinks he may need to be cleaned up. Pt. agrees to PT OT co Rx for bathing, rolling, LE stretches, TRF via jareth, w/c mob training via cindi stick electric w/c etc. After up in w/c only briefly pt. c/o he cannot breath and then closed his eyes and did not respond . Nurse called , pt. immediately TRFd back to bed , nurse assessed BP as best she could during this TRF Pain Location: No Pain Reported Appearance eyes closed much of time, incont of BM, scrotal area excoriated, cleaned and treated with barrier cream. Mental Status Patient Orientation: Normal For Age Attachments: Oxygen, Zamarripa Catheter, Other-See Comments (ttach), IV Transfers Therapy Code Descriptions/Definitions Functional [place] Measure: 0=Not Assessed/NA 4=Minimal Assistance 1=Total Assistance 5=Supervision or Setup 2=Maximal Assistance 6=Modified [place] 3=Moderate Assistance 7=Complete [place] Therapy Quality Codes: 6 Independent with activity with or without an assistive device 5 Patient requires set up or clean up by helper. Patient completes activity by themselves 4 Supervision or touching assist (CGA). [place] provide cues , steadying assist 3 The helper provides less than half the effort to complete the activity 2 The helper provides more than half the effort to complete the activity 1 Dependent. The helper does all the effort to complete an activity 7 Patient refused to complete or attempt activity 9 The patient did not perform the activity before the current illness or injury 88 Not attempted due to Medical conditions or safety concerns Transfers (B, C, W/C) (FIM): 1 Scootin Rollin Supine to/from Sit: 1 Bed to/from Chair: 1 total assist of 2 TRF for all mobility Wheelchair Training Does the Pt Use a Wheelchair?: Yes Wheelchair (FIM): 1 Type of Wheelchair: Motorized pt. in chair briefly when he c/o inability to breath and was quickly TRFd to bed , BP 92/56, sats >90%, RT called for breathing Rx. while in w/c pt. demonstrated ability to manuever cindi stick for back and began to manuever chair for "parallel parking" when he began to run chair in to bed and seemed to lose good control and wasnt aware. Pt. then closed eyes and stated he couldnt breath , then did not speak, was TRFd to bed quickly, see above Exercises Supine Ex: Ankle pumps (HV stretching), Straight leg raise (HS stretching), Hip abd/add (passive) Supine Reps: 8 (12) Treatments co Rx with OT for Rx, pt. with min to slight movement R hand UE.2 max dependent for rolling left to right x 6 , cleaning , dressing and TRF via jareth to electric w/c. Pt. then with episode of not being able to breath and was TRFd btb. see above. Assessment Current Status: Fair Progress dependent for all mob, poor tolerance for up in w/c this date, see above PT Short Term Goals Short Term Goals Time Frame: Jan 17, 2019 Transfers (B,C,W/C) (FIM): 1 Wheelchair (FIM): 4 (if he can get a power chair) Wheelchair Distance: 150' Wheelchair Level of Assist: 4 PT Die Maintenance Technician Goals Detention Goals PT Die Maintenance Technician Goals Time Frame: Jan 31, 2019 Transfers (B,C,W/C) (FIM): 1 Sit to Lying (QC): 1 Lying-Sitting on Side/Bed(QC): 1 Rollin Roll Left to Right (QC): 2 Chair/Lze-ef-Rdwpu Xfer(QC): 1 Car Transfer (QC): 1 Wheelchair (FIM): 5 (if he can get a power chair) Distance: 150' Wheelchair Level of Assist: 5 Wheel 50 feet with 2 turns (QC: 4 PT Plan Treatment/Plan Treatment Plan: Continue Plan of Care ( TOLERATED) Treatment Plan: Bed Mobility, Concurrent Therapy, Education, Functional Activity Estella, Functional Strength, Group Therapy, Safety, Therapeutic Exercise, Transfers Treatment Duration: Jan 31, 2019 Frequency: At least 5 of 7 days/Wk (IRF) Estimated Hrs Per Day: 1.5 hours per day Patient and/or Family Agrees t: Yes Safety Risks/Education Patient Education: Correct Positioning, W/C Management, Disease Process, Safety Issues Teaching Recipient: Patient Teaching Methods: Demonstration, Discussion Response to Teaching: Unable to Return Demonstration, 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
[2019-01-15 12:15] VITALS: BP 138/82
--- NOTE | 2019-01-15 12:51 | NUR ---
LINING MARKER met with patient and spouse in regards to discharge planning. Patient spouse request referral be sent to [facility]. LINING MARKER sent referral. LINING MARKER awaiting response from this facility and [facility] and [facility].
--- NOTE | 2019-01-15 14:06 | Speech Therapy Daily Note ---
Speech Daily Progress Note Subjective Date Seen by Provider: Jan 15, 2019 Time Seen by Provider: 00:30 Patient was pleasant, talkative, and alert. His son was present during the session. Objective Patient reported "bloating" yesterday and has temporarily discontinued PO trials per patient report. PO trials were not conducted today and speech focused on education and counseling. Patient reported he has no difficulties with a regular diet with thin liquids and eats foods such as green beans, ground meat, bananas, and purees such as mashed potatoes and gravy and pudding. Patient was re- educated on safe swallowing techniques and positioning including sitting upright at 90 degrees for feedings, taking small bites, and alternating sips of thin liquid every 3 bites and verbalized understanding. Patient demonstrated wet vocal quality today, but was able to volitionally cough to clear throat. Assessment Assessment Current Status: Excellent Progress Treatment Plan Continue Plan of Care Communication Comprehension: 6 Expression: 6 Social Cognition Social Interaction: 6 Problem Solvin Memory: 4 Speech Short Term Goals Short Term Goals Short Term Goals 1) The patient will complete memory tasks related to his daily needs at 90% or greater with minimal cues. 2) The patient will complete problem solving tasks related to his daily needs at 90% or greater with minimal cues. 3) The patient will complete safety awareness tasks related to his daily needs at 90% or greater with minimal cues. 4) The patient will tolerate least restrictive diet without s/s of aspiration with 90% or greater. 5) The patient will demonstrate compliance of utilization of compensatory strategies as trained at 90% or greater with minimal cues. Speech Prison Goals Core Machine Operator Goals The patient will improve his cognitive status for a safe return home. The patient will maintain adequate nutrition/hydration via safe effective swallow function and/or PEG tube. Speech-Plan Patient/Family Goals Patient/Family Goals: Patient hopes to return home with his and children. Treatment Plan Speech Therapy Treatment Plan: Continue Plan of Care Patient is making progress towards goals and was able to verbalize safe- swallowing strategies Treatment Duration: Jan 26, 2019 Frequency: 5 times per week Estimated Hrs Per Day: .5 hour per day Rehab Potential: Guarded Barriers to Learning: cognition Pt/Family Agrees to Plan: Yes Safety Risks/Education Teaching Recipient: Patient Teaching Methods: Discussion Response to Teaching: Verbalize Understanding Education Topics Provided: swallowing consistencies and positioning Time Speech Therapy Time In: 09:00 Speech Therapy Time Out: 09:30 Total Billed Time: 30 Billed Treatment Time 1, DYST CANDIDA Beckford Jan 15, 2019 14:06
--- NOTE | 2019-01-15 14:41 | Occupational Ther Daily Note ---
OT Current Status-Daily Note Subjective Pt. does not report pain, but does report that he is having trouble breathing while OT/PT using jareth to get him up. Nursing assessed pt. immediately. Appearance Pt. in bed. Agrees to therapy. Mental Status/Objective Patient Orientation: Person, Place Therapy Code Descriptions/Definitions Functional [place] Measure: 0=Not Assessed/NA 4=Minimal Assistance 1=Total Assistance 5=Supervision or Setup 2=Maximal Assistance 6=Modified [place] 3=Moderate Assistance 7=Complete [place] Attachments: IV, Oxygen ADL-Treatment Therapy Code Descriptions/Definitions Functional [place] Measure: 0=Not Assessed/NA 4=Minimal Assistance 1=Total Assistance 5=Supervision or Setup 2=Maximal Assistance 6=Modified [place] 3=Moderate Assistance 7=Complete [place] Therapy Quality Codes: 6 Independent with activity with or without an assistive device 5 Patient requires set up or clean up by helper. Patient completes activity by themselves 4 Supervision or touching assist (CGA). [place] provide cues , steadying assist 3 The helper provides less than half the effort to complete the activity 2 The helper provides more than half the effort to complete the activity 1 Dependent. The helper does all the effort to complete an activity 7 Patient refused to complete or attempt activity 9 The patient did not perform the activity before the current illness or injury 88 Not attempted due to Medical conditions or safety concerns Bathing (FIM): 1 Shower/Bathe Self (QC): 1 Lower Body Dressing (FIM): 1 Lower Body Dressing (QC): 1 On/Off Footwear (QC): 1 Toileting (FIM): 1 Toileting Hygiene (QC): 1 Transfers (B, C, W/C) (FIM): 1 Other Treatment Pt. in bed. Agrees to treatment. OT and PT co-treated due to pt.s need for two skilled therapists. OT focused on ADLs while PT assessed mobility with transfer. Noted pt. incontinent of bowel. Completed multiple rolls back and forth for david care and sponge bath. Pt unable to assist. Changed bed and positioned jareth sling. Utilized lift to transfer pt. to wheelchair. Once in chair, pt. began to state that he was having difficulty breathing. Nursing called RT immediately and OT/PT began to transfer pt. back to bed via jareth. Once in bed BP taken and was 93/64. Positioned pt. and let nursing continue assessing. All needs met. Education OT Patient Education: Correct positioning, Modified ADL techniques, Progress toward Goal/Update tx plan, Purpose of tx/functional activities, Reviewed precautions, Rehab process, Transfer techniques Teaching Recipient: Patient Teaching Methods: Demonstration, Discussion Response to Teaching: Verbalize Understanding, Return Demonstration OT Short Term Goals Short Term Goals Time Frame: Jan 24, 2019 Grooming(FIM): 2 (with AE) Upper Body Dressing(FIM): 2 Transfers (B,C,W/C) (FIM): 1 Additional Short Term Goals: 3-ImproveStrength/Estella 1=Demonstrate adherence to instructed precautions during ADL tasks. 2=Patient will verbalize/demonstrate understanding of assistive devices/modifications for ADL. 3=Patient will improve strength/tolerance for activity to enable patient to perform ADL's. OT Group Home Goals Canoe Inspector Final Goals Time Frame: Feb 14, 2019 Eating (FIM): 3 Eating (QC): 3 Groomin Oral Hygiene (QC): 3 Upper Body Dressing(FIM): 3 Additional Goals: 3-ImproveStrength/Estella 1=Demonstrate adherence to instructed precautions during ADL tasks. 2=Patient will verbalize/demonstrate understanding of assistive devices/modifications for ADL. 3=Patient will improve strength/tolerance for activity to enable patient to perform ADL's. OT Education/Plan Problem List/Assessment Assessment: Decreased Activ Tolerance, Decreased UE Strength, Dependent Transfers, Impaired Bed Mobility, Impaired Coordination, Impaired Funct Balance, Impaired I ADL's, Impaired Self-Care Skills, Restricted Funct UE ROM Discharge Recommendations Plan/Recommendations: Continue POC Therapy D/C Recommendations: 24 hr Supervision Treatment Plan/Plan of Care Treatment,Training & Education: Yes Patient would benefit from OT for education, treatment and training to promote independence in ADL's, mobility, safety and/or upper extremity function for ADL's. Plan of Care: ADL Retraining, Caregiver Training, Functional Mobility, Group Exercise/Act as Ind, UE Funct Exercise/Act, UE Neuromus Re-Ed/Coord, W/C Management Training Treatment Duration: Feb 14, 2019 Frequency: At least 5 of 7 days/Wk (IRF) Estimated Hrs Per Day: 1.5 hours per day Agreement: Yes Rehab Potential: Guarded Time/GCodes Start Time: 09:30 Stop Time: 10:20 Total Time Billed (hr/min): 50 Billed Treatment Time 1, ADL x 3 SHEYLA PETERSON OT Jan 15, 2019 14:41
--- NOTE | 2019-01-15 14:50 | Occupational Ther Daily Note ---
OT Current Status-Daily Note Subjective Pt. does not report pain. Appearance Pt. in bed asleep. Does wake up and agrees to work with OT. Mental Status/Objective Patient Orientation: Person Therapy Code Descriptions/Definitions Functional [place] Measure: 0=Not Assessed/NA 4=Minimal Assistance 1=Total Assistance 5=Supervision or Setup 2=Maximal Assistance 6=Modified [place] 3=Moderate Assistance 7=Complete [place] ADL-Treatment Therapy Code Descriptions/Definitions Functional [place] Measure: 0=Not Assessed/NA 4=Minimal Assistance 1=Total Assistance 5=Supervision or Setup 2=Maximal Assistance 6=Modified [place] 3=Moderate Assistance 7=Complete [place] Therapy Quality Codes: 6 Independent with activity with or without an assistive device 5 Patient requires set up or clean up by helper. Patient completes activity by themselves 4 Supervision or touching assist (CGA). [place] provide cues , steadying assist 3 The helper provides less than half the effort to complete the activity 2 The helper provides more than half the effort to complete the activity 1 Dependent. The helper does all the effort to complete an activity 7 Patient refused to complete or attempt activity 9 The patient did not perform the activity before the current illness or injury 88 Not attempted due to Medical conditions or safety concerns Pt. in bed. Agrees to work with OT on UE mobility and ROM. OT completed gentle PROM to bilateral shoulders, elbows, wrists and fingers. Pt. does have active elbow flexion and slight tricep extension. No active finger movements or wrist movement. Pt. is able to supinate, pronate slightly in gravity eliminated plane. OT washed pt's hands and attempted to exfoliate skin on hands. Pt. states that he is comfortable. All needs met. Education OT Patient Education: Correct positioning, Exercise program, Progress toward Goal/Update tx plan, Purpose of tx/functional activities, Reviewed precautions, Rehab process, Transfer techniques Teaching Recipient: Patient Teaching Methods: Demonstration, Discussion Response to Teaching: Verbalize Understanding, Return Demonstration OT Short Term Goals Short Term Goals Time Frame: Jan 24, 2019 Grooming(FIM): 2 (with AE) Upper Body Dressing(FIM): 2 Transfers (B,C,W/C) (FIM): 1 Additional Short Term Goals: 3-ImproveStrength/Estella 1=Demonstrate adherence to instructed precautions during ADL tasks. 2=Patient will verbalize/demonstrate understanding of assistive devices/modifications for ADL. 3=Patient will improve strength/tolerance for activity to enable patient to perform ADL's. OT It Administrative Assistant Goals Long-Term Goals Time Frame: Feb 14, 2019 Eating (FIM): 3 Eating (QC): 3 Groomin Oral Hygiene (QC): 3 Upper Body Dressing(FIM): 3 Additional Goals: 3-ImproveStrength/Estella 1=Demonstrate adherence to instructed precautions during ADL tasks. 2=Patient will verbalize/demonstrate understanding of assistive devices/modifications for ADL. 3=Patient will improve strength/tolerance for activity to enable patient to perform ADL's. OT Education/Plan Problem List/Assessment Assessment: Decreased Activ Tolerance, Decreased UE Strength, Dependent Transfers, Impaired Bed Mobility, Impaired Coordination, Impaired Funct Balance, Impaired I ADL's, Impaired Self-Care Skills, Restricted Funct UE ROM Discharge Recommendations Plan/Recommendations: Continue POC Therapy D/C Recommendations: 24 hr Supervision Treatment Plan/Plan of Care Treatment,Training & Education: Yes Patient would benefit from OT for education, treatment and training to promote independence in ADL's, mobility, safety and/or upper extremity function for ADL's. Plan of Care: ADL Retraining, Caregiver Training, Functional Mobility, Group Exercise/Act as Ind, UE Funct Exercise/Act, UE Neuromus Re-Ed/Coord, W/C Management Training Treatment Duration: Feb 14, 2019 Frequency: At least 5 of 7 days/Wk (IRF) Estimated Hrs Per Day: 1.5 hours per day Agreement: Yes Rehab Potential: Guarded Time/GCodes Start Time: 13:05 Stop Time: 13:30 Total Time Billed (hr/min): 25 Billed Treatment Time 1, Ex x 15minutes, FA x 10minutes SHEYLA PETERSON OT Jan 15, 2019 14:50
[2019-01-15] MEDS: ENOXAPARIN 40 MG/0.4 ML (LOVENOX) SYR SC SCH (14:54)
[2019-01-15 15:46] VITALS: BP 111/69
--- NOTE | 2019-01-15 15:56 | NUR ---
DR. HUSSEIN HERE TO SEE PATIENT AND INFORMED OF SEVERAL EPISODES OF PATIENT COMPLAINING OF DIFFICULTY IN BREATHING WHICH WERE RELIEVED WITH BREATHING TREATMENTS AND SUCTIONING.
--- NOTE | 2019-01-15 19:00 | NUR ---
DR. SANFORD HERE TO SEE PATIENT. STARTED ON CLEAR LIQUID DIET AND APPEARED TO TOLERATE WELL. ALSO LOOKED AT SACRAL DECUB AND THOUGHT IT LOOKED PRETTY GOOD. ORDER FOR WET TO DRY DRESSING DAILY.
--- NOTE | 2019-01-15 20:45 | Progress Note - Surgery ---
Subjective Date Seen by a Provider: Jan 15, 2019 Time Seen by a Provider: 20:41 Subjective/Events-last exam patient states is doing well. He is passing flatus and having bowel movements. Feels that his abdomens becoming less distended. Not having any pain or discomfort. Denies any nausea vomiting fever sweats chills shortness of breath or chest pain. Objective Exam Vital Signs Date Time Temp Pulse Resp B/P (MAP) Pulse Ox O2 Delivery O2 Flow Rate FiO2 01/15/19 18:17 96 Trach Collar 6.00 28 01/15/19 18:00 Trach Collar 28.00 6.00 01/15/19 15:46 96.5 94 14 111/69 (83) Trach Collar 10.00 01/15/19 14:26 93 T Piece 6.00 28 01/15/19 12:15 72 138/82 (100) 01/15/19 10:32 94 T Piece 6.00 01/15/19 10:30 85 93/62 (72) 01/15/19 10:15 88 93/64 (74) 01/15/19 09:00 Trach Collar 6.00 28 01/15/19 07:05 94 T Piece 6.00 28 01/15/19 05:03 97.4 75 18 121/72 (88) 97 Trach Collar 01/15/19 02:22 95 Trach Collar 6.00 28 01/14/19 21:00 Trach Collar 10.00 28 I & O 01/15/19 07:00 Intake Total 677.5 ml Output Total 2750 ml Balance -2072.5 ml Capillary Refill : Less Than 3 SecondsLess Than 3 Seconds General Appearance: No Apparent Distress, WD/WN, Chronically ill, Thin HEENT: PERRL/EOMI, Normal ENT Inspection, Pharynx Normal, Moist Mucous Membranes Neck: Other (in collar) Respiratory: Chest Non Tender, No Accessory Muscle Use, No Respiratory Distress, Other (trach in place) Cardiovascular: Regular Rate, Rhythm Gastrointestinal: soft, distended (slight) Extremity: Normal Capillary Refill Neurologic/Psychiatric: Alert, Oriented x3, cigarette inspector II-XII Norm as Tested, Depressed Affect, Motor Weakness (bilateral lower extremities and deficits at waist) Skin: Normal Color, Warm/Dry, Other (decubitus ulcer coccyx, right heel ulcer) Lymphatic: No Adenopathy Results Lab Laboratory Tests 01/15/19 05:29: Glucometer 97 01/15/19 10:45: Glucometer 105 01/15/19 15:45: Glucometer 92 Microbiology 01/10/19 Blood Culture - Final, Complete No growth 01/10/19 Gram Stain - Final, Complete 01/10/19 Sputum Culture - Final, Complete Usual upper respiratory aaron YEAST Assessment/Plan Assessment/Plan Assessment/Plan 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 abdominal distention Decubitus ulcer coccyx ileus Patient with bowel movements and passing flatus we'll slowly advance diet Patient with decubitus ulcer will continue to monitor may need debridement further Will follow. Clinical Quality Measures DVT/VTE Risk/Contraindication: Risk Factor Score Per Nursin RFS Level Per Nursing on Admit: 4+=Very High NIKOLAY SANFORD DO Jan 15, 2019 20:45
[2019-01-15] MEDS: MELATONIN 3 MG TABLET PO SCH (21:35)
[2019-01-15] MEDS: QUEtiapine 25 MG (SEROquel) TAB IMMEDIATE RELEASE PO SCH (21:35)
[2019-01-15] MEDS: MONTELUKAST 10 MG (SINGULAIR) TAB PO SCH (21:35)
[2019-01-15] MEDS: ALPRAZolam 0.5 MG (XANAX) TAB PEG PRN (21:36)
[2019-01-16] MEDS: METOCLOPRAMIDE INJ 10 MG/2 ML (REGLAN) IVP SCH ×4 (01:12→18:44)
[2019-01-16] MEDS: VANCOMYCIN 750 MG/NS 250 ML IVPB IV SCH ×4 (02:18→10:38)
[2019-01-16] MEDS: RT-ALBUTEROL/IPRATROPIUM 3 ML (DUONEB) VIAL INH SCH ×6 (03:10→21:48)
[2019-01-16] MEDS: aCETylcysteine 20% (MUCOMYST) 30ML SOLN VIAL INH SCH ×6 (03:10→21:48)
[2019-01-16] MEDS: PIPERACILLIN/TAZO 4.5 GM/NS 100 ML IV SCH ×6 (03:16→20:04)
[2019-01-16] MEDS: inSUlin ASPART (NovoLOG) 1 UNIT/0.01 ML (CHARGE PER UNIT) SC SCH ×4 (06:01→21:33)
[2019-01-16] MEDS: guaiFENesin SYRUP 100 MG/5 ML 10 ML (ROBITUSSIN SF) PEG SCH ×3 (06:06→21:10)
[2019-01-16 06:07] VITALS: BP 118/71
--- NOTE | 2019-01-16 07:57 | Diagnostic Imaging Report ---
INDICATION: Rib fractures, congestion. COMPARISON: 01/12/2019. FINDINGS: Single view of the chest demonstrates stable support lines. Multiple rib fractures are seen on the right. There is minimal basilar atelectasis. There is no pulmonary edema, pneumothorax or effusion. IMPRESSION: 1. Stable support lines. 2. Bibasilar atelectasis. Dictated by: Dictated on workstation # [id number]
[2019-01-16] MEDS: FAMOTIDINE 20 MG (PEPCID) TABLET PO SCH ×2 (08:24→21:08)
[2019-01-16] MEDS: SENNA W/DOCUSATE (SENOKOT S) TABLET PO SCH ×2 (08:24→21:09)
[2019-01-16] MEDS: LORATADINE (CLARITIN) 10 MG TAB PO SCH (08:24)
[2019-01-16] MEDS: ALPRAZolam 0.5 MG (XANAX) TAB PEG PRN ×2 (08:25→21:08)
[2019-01-16] MEDS: MIDODRINE 10 MG (PROAMATINE) TAB PO SCH ×3 (08:25→21:09)
[2019-01-16] MEDS: POT PHOS/NA PHOS (K-PHOS NEUTRAL) PO SCH ×2 (08:25→21:09)
--- NOTE | 2019-01-16 08:59 | PM&R Progress Note ---
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 He was unable to maintain his airway. He was intubated at the scene. He was assessed in the ER by Dr. Vaughan trauma surgeon found to have significant hypotension requiring aggressive IV fluids and pressor therapy but then was assessed that he was likely an spinal cord shock and multiple right rib fractures with flail chest requiring transfer to [facility] trauma surgery which resulted in multiple procedures including tracheostomy due to failing weaning protocol on ventilator, PEG tube placement, spine MRIs confirming C3-C7 spinal cord injury complete with plating of ribs 510 on the right side and right sided chest tube. He was found to have drug screen positive for marijuana and methamphetamine. Neurosurgery was consulted perform decompressive laminectomy on C3-C7 with C4-C5 autograft bone screws and rods. He was diagnosed with Haemophilus influenza while intubated and that treatment was completed. He did have rhabdomyolysis from his injuries requiring aggressive IV fluids but they all resolved. Hyperglycemia was diagnosed and he was started on insulin and elevated liver enzymes have improved since admission and hepatitis viral panel along with HIV were negative. He did receive 2 units of packed red blood cells hospitalized. Currently patient is requiring wound care consult by Dr. Craven and general surgery consultation by Dr. García because additional debridement of the sacral decubitus ulcer will be required. He will remain with the c-collar in place until seen Dr. Nesbitt on 01/30/19. Hemoglobin today is 10.1. Dr. Arcos's been consulted for pulmonary issues which she is having increased secretions today in addition urology will be consulted for Zamarripa catheter maintenance for neurogenic bladder. I did speak with Dr. Arcos who will panculture the patient and change breathing treatments to clear secretions. Patient remains total care with quadriplegia. Subjective/Events-last exam Hands are working much better especially on the right improved on the left Legs are now moving if he can focus on it and he feels them moving Atelectasis on chest xray and he does have coarseness in inspiratory and expira tory phases IS will ordered Clear liquid diet and advancing that from general surgery We need the wound checked either by Freddy from wound care or by Dr. James party plan demonstrator for Polly Checked meds and labs Reviewed consultation notes. Conferred with RN Reviewed therapy notes Review of Systems Gastrointestinal: Abdominal Pain Neurological: Weakness, Numbness, Incoordination Objective Exam Vital Signs Vital Signs Date Time Temp Pulse Resp B/P (MAP) Pulse Ox O2 Delivery O2 Flow Rate FiO2 01/16/19 18:55 96 Trach Collar 6.00 28 01/16/19 15:42 97.0 66 16 166/90 (115) Capillary Refill : Less Than 3 SecondsLess Than 3 Seconds General Appearance: No Apparent Distress, WD/WN, Chronically ill, Thin HEENT: PERRL/EOMI, Normal ENT Inspection, Pharynx Normal, Moist Mucous Membranes Neck: Other (in collar) Respiratory: Chest Non Tender, No Accessory Muscle Use, No Respiratory Distress, Crackles, Other (trach in place) Cardiovascular: Regular Rate, Rhythm Gastrointestinal: Normal Bowel Sounds, No Organomegaly, No Pulsatile Mass, Abnormal Bowel Sounds, Distended, Other (PEG in place) Back: Normal Inspection, No CVA Tenderness, No Vertebral Tenderness Extremity: Normal Capillary Refill Neurologic/Psychiatric: Alert, Oriented x3, fitter type bar and segment II-XII Norm as Tested, Depressed Affect, Motor Weakness (bilateral lower extremities and deficits at waist) Skin: Normal Color, Warm/Dry, Other (decubitus ulcer coccyx, right heel ulcer) Lymphatic: No Adenopathy Results/Procedures Lab Patient resulted labs reviewed. FIM Transfers Therapy Code Descriptions/Definitions Functional [place] Measure: 0=Not Assessed/NA 4=Minimal Assistance 1=Total Assistance 5=Supervision or Setup 2=Maximal Assistance 6=Modified [place] 3=Moderate Assistance 7=Complete [place] Therapy Quality Codes: 6 Independent with activity with or without an assistive device 5 Patient requires set up or clean up by helper. Patient completes activity by themselves 4 Supervision or touching assist (CGA). [place] provide cues , steadying assist 3 The helper provides less than half the effort to complete the activity 2 The helper provides more than half the effort to complete the activity 1 Dependent. The helper does all the effort to complete an activity 7 Patient refused to complete or attempt activity 9 The patient did not perform the activity before the current illness or injury 88 Not attempted due to Medical conditions or safety concerns Transfers (B, C, W/C) (FIM): 1 Scootin Rollin Roll Left to Right (QC): 1 Supine to/from Sit: 1 Sit to Lying (QC): 1 Chair/Irz-fb-Fpoqg Xfer(QC): 1 Bed to/from Chair: 1 Car Transfer (QC): 1 Gait Training Does the Patient Walk?: No and Walking Goal NOT indicated Wheelchair Training Does the Pt Use a Wheelchair?: Yes Wheelchair (FIM): 1 Distance: 150' Wheelchair Level of Assist: 3 Type of Wheelchair: Motorized Mental Status/Objective Comprehension: 6 Expression: 6 Social Interaction: 6 Problem Solvin Memory: 4 ADL-Treatment Feedin (hand over hand feed ) Eating (QC): 1 Groomin Bathin Shower/Bathe Self (QC): 1 Upper Extremity Dressin Upper Body Dressing (QC): 1 (tie puller shirt ) Lower Extremity Dressin Lower Body Dressing (QC): 1 On/Off Footwear (QC): 1 Toiletin Toileting Hygiene (QC): 1 Assessment/Plan Assessment and Plan Assess & Plan/Chief Complaint Assessment: 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 Nesbitt at [facility] 12/07/18 Rib plating on the right Closed right scapular fracture Diabetes mellitus [id number] requiring insulin PEG tube status Trach dependent Anemia Hypertension DVT prophylaxis with Lovenox Neurogenic bladder requiring Zamarripa catheter and urology recommends maintained to help heal decubitus ulcer in the meantime Decubitus ulcer s/p debridement but appears to need additional debridement tomorrow OJ Psychosis resolved with Seroquel Depression placed on Celexa Ileus? Resolving Plan: Broad-spectrum antibiotics for decubitus ulcer infection Debridement per Dr. García and Dr. Craven and it appears to need additional debridement Wound VAC after debridement Maintain on Lovenox Consult urology is appreciated Rehabilitation to focus on transfers and lessen burden on caretakers prison placement? Remove neck brace while sleeping to aid in alleviation of discomfort causing behaviors Stopped oral nutrition due to ileus Seroquel at night Celexa in the morning CLD and advance as tolerated, appreciate general surgery (1) Post-traumatic quadriplegia (2) Diabetes mellitus (3) Anemia (4) Anxiety (5) Chronic pain (6) Neurogenic bladder (7) HLD (hyperlipidemia) (8) Tracheostomy dependent (9) DVT prophylaxis (10) Closed right scapular fracture (11) Right rib fracture (12) Right pulmonary contusion (13) Decubitus ulcer of coccygeal region, stage 4 (14) Shock due to spinal cord injury (15) Paresthesias (16) Illicit drug use (17) Cellulitis (18) Hypertension (19) Type 2 diabetes mellitus with hyperglycemia (20) PEG (percutaneous endoscopic gastrostomy) status MARGUERITE GAN DO Jan 16, 2019 08:59
--- NOTE | 2019-01-16 10:35 | Physical Therapy Daily Note ---
PT Daily Note-Current Subjective Patient in bed pre tx, agrees to PT, voices no complaints of pain. Will be co- treating with OT due to poor patient mobility, strength, sitting balance, poor trunk control, the need to coordinate UE and LE activity and trunk control. Appearance Patient in bed post tx with nurse call, phone, tray, all needs met, laying on right side for pressure relief. Mental Status Patient Orientation: Person, Place, Situation Attachments: Oxygen, Zamarripa Catheter cervical collar Transfers Therapy Code Descriptions/Definitions Functional [place] Measure: 0=Not Assessed/NA 4=Minimal Assistance 1=Total Assistance 5=Supervision or Setup 2=Maximal Assistance 6=Modified [place] 3=Moderate Assistance 7=Complete [place] Therapy Quality Codes: 6 Independent with activity with or without an assistive device 5 Patient requires set up or clean up by helper. Patient completes activity by themselves 4 Supervision or touching assist (CGA). [place] provide cues , steadying assist 3 The helper provides less than half the effort to complete the activity 2 The helper provides more than half the effort to complete the activity 1 Dependent. The helper does all the effort to complete an activity 7 Patient refused to complete or attempt activity 9 The patient did not perform the activity before the current illness or injury 88 Not attempted due to Medical conditions or safety concerns Transfers (B, C, W/C) (FIM): 1 Scootin Rollin Bed to/from Chair: 1 Patient needs dressed and has had a BM. He has to roll several times to each side to accomplish this and get sling under him. Patient hoyered to power wheelchair. Wheelchair Training Does the Pt Use a Wheelchair?: Yes Wheelchair (FIM): 1 Distance: 50'x3 Wheelchair Level of Assist: 4 Type of Wheelchair: Manual A different joystick was fashioned for patient so he can control the wheelchair better, he is able to turn to the right now using it. Patient needs min assist to control chair. He would probably do better with a goalpost joystick. Treatments BM cleaning, dressing, wheelchair mobility, transfers. PT worked on bed mobility, rolling, positioning during dressing, transfer, wheelchair mobility, OT worked on cleaning, dressing, transfers, rolling, assist with wheelchair mobility. Assessment Current Status: Fair Progress improved WC management PT Short Term Goals Short Term Goals Time Frame: Jan 17, 2019 Transfers (B,C,W/C) (FIM): 1 Wheelchair (FIM): 4 (if he can get a power chair) Wheelchair Distance: 150' Wheelchair Level of Assist: 4 PT Alf Goals Plastic Battery Assembler Goals PT Plastic Battery Assembler Goals Time Frame: Jan 31, 2019 Transfers (B,C,W/C) (FIM): 1 Sit to Lying (QC): 1 Lying-Sitting on Side/Bed(QC): 1 Rollin Roll Left to Right (QC): 2 Chair/Rqr-bb-Ekbxg Xfer(QC): 1 Car Transfer (QC): 1 Wheelchair (FIM): 5 (if he can get a power chair) Distance: 150' Wheelchair Level of Assist: 5 Wheel 50 feet with 2 turns (QC: 4 PT Plan Problem List Problem List: Activity Tolerance, Functional Strength, Safety, Balance, Transfer, Bed Mobility, ROM Treatment/Plan Treatment Plan: Continue Plan of Care Treatment Plan: Bed Mobility, Concurrent Therapy, Education, Functional Activity Estella, Functional Strength, Group Therapy, Safety, Therapeutic Exercise, Transfers Treatment Duration: Jan 31, 2019 Frequency: At least 5 of 7 days/Wk (IRF) Estimated Hrs Per Day: 1.5 hours per day Patient and/or Family Agrees t: Yes Safety Risks/Education Patient Education: Transfer Techniques, Correct Positioning, W/C Management, Safety Issues Teaching Recipient: Patient Teaching Methods: Demonstration, Discussion Response to Teaching: Reinforcement Needed Time/GCodes Time In: 0900 Time Out: 1000 Total Billed Treatment Time: 60 Total Billed Treatment 1 visit [facility] 20' FA 40' co-treated for 60 min ADRIENNE DURAN PT Jan 16, 2019 10:35
--- NOTE | 2019-01-16 12:02 | Speech Therapy Daily Note ---
Speech Daily Progress Note Subjective Date Seen by Provider: Jan 16, 2019 Time Seen by Provider: 00:30 Patient was alert and cooperative Objective Patient participated in dysphagia therapy. Trials of applesauce and water via straw were presented. Patient tolerated 1 tsp purees and single sips of water without s/s aspiration. Advancement of diet was discussed with patient including trialing mechanical soft and dissolvable solid consistencies. Assessment Assessment Current Status: Good Progress Treatment Plan Continue Plan of Care Communication Comprehension: 6 Expression: 6 Social Cognition Social Interaction: 6 Problem Solvin Memory: 4 Speech Short Term Goals Short Term Goals Short Term Goals 1) The patient will complete memory tasks related to his daily needs at 90% or greater with minimal cues. 2) The patient will complete problem solving tasks related to his daily needs at 90% or greater with minimal cues. 3) The patient will complete safety awareness tasks related to his daily needs at 90% or greater with minimal cues. 4) The patient will tolerate least restrictive diet without s/s of aspiration with 90% or greater. 5) The patient will demonstrate compliance of utilization of compensatory strategies as trained at 90% or greater with minimal cues. Speech Payroll Bookkeeper Goals Senior Care Goals The patient will improve his cognitive status for a safe return home. The patient will maintain adequate nutrition/hydration via safe effective swallow function and/or PEG tube. Speech-Plan Patient/Family Goals Patient/Family Goals: Patient plans to advance diet Treatment Plan Speech Therapy Treatment Plan: Continue Plan of Care Patient is making good progress towards goals and tolerates purees and thin liquids without s/s aspiration. Therapy will continue to target swallow strategies and advancement of diet Treatment Duration: Jan 26, 2019 Frequency: 5 times per week Estimated Hrs Per Day: .5 hour per day Rehab Potential: Guarded Barriers to Learning: oropharyngeal dysphagia Pt/Family Agrees to Plan: Yes Safety Risks/Education Teaching Recipient: Patient Teaching Methods: Discussion Response to Teaching: Verbalize Understanding Education Topics Provided: Educated on safe swallow strategies including sitting upright, small bites/sips, and alternating between solids and liquids Time Speech Therapy Time In: 08:30 Speech Therapy Time Out: 09:00 Total Billed Time: 30 Billed Treatment Time LUIS DANIEL Dumont SEACarmina JOHNSTON Jan 16, 2019 12:02
--- NOTE | 2019-01-16 12:10 | NUR ---
[facility] received notification from both [facility] of denial for admission due to acutely level, level of care needed and lack of insurance coverage. [facility] will continue to seek long-term care facilities for patient's placement.
--- NOTE | 2019-01-16 13:27 | Physical Therapy Daily Note ---
PT Daily Note-Current Subjective Patient in bed pre tx, agrees to PT, no complaints of pain at rest. Appearance Patient in bed post tx with nurse call, phone, tray, laying on right side for pressure relief. Has podus boot on left foot. Mental Status Patient Orientation: Normal For Age Attachments: Oxygen, Zamarripa Catheter Transfers Therapy Code Descriptions/Definitions Functional [place] Measure: 0=Not Assessed/NA 4=Minimal Assistance 1=Total Assistance 5=Supervision or Setup 2=Maximal Assistance 6=Modified [place] 3=Moderate Assistance 7=Complete [place] Therapy Quality Codes: 6 Independent with activity with or without an assistive device 5 Patient requires set up or clean up by helper. Patient completes activity by themselves 4 Supervision or touching assist (CGA). [place] provide cues , steadying assist 3 The helper provides less than half the effort to complete the activity 2 The helper provides more than half the effort to complete the activity 1 Dependent. The helper does all the effort to complete an activity 7 Patient refused to complete or attempt activity 9 The patient did not perform the activity before the current illness or injury 88 Not attempted due to Medical conditions or safety concerns Exercises BLE ROM/stretching in all planes. Patient seems to have increased muscle spasms today. Treatments ROM/stretching Assessment Current Status: Fair Progress more muscle spasms, patient maintaining normal ankle ROM PT Short Term Goals Short Term Goals Time Frame: Jan 17, 2019 Transfers (B,C,W/C) (FIM): 1 Wheelchair (FIM): 4 (if he can get a power chair) Wheelchair Distance: 50'x3 Wheelchair Level of Assist: 4 PT Psychology Technician Goals Mcc Goals PT Psychology Technician Goals Time Frame: Jan 31, 2019 Transfers (B,C,W/C) (FIM): 1 Sit to Lying (QC): 1 Lying-Sitting on Side/Bed(QC): 1 Rollin Roll Left to Right (QC): 2 Chair/Ftu-vt-Qnjso Xfer(QC): 1 Car Transfer (QC): 1 Wheelchair (FIM): 5 (if he can get a power chair) Distance: 150' Wheelchair Level of Assist: 5 Wheel 50 feet with 2 turns (QC: 4 PT Plan Problem List Problem List: Activity Tolerance, Functional Strength, Safety, Balance, Transfer, Bed Mobility, ROM Treatment/Plan Treatment Plan: Continue Plan of Care Treatment Plan: Bed Mobility, Concurrent Therapy, Education, Functional Activity Estella, Functional Strength, Group Therapy, Safety, Therapeutic Exercise, Transfers Treatment Duration: Jan 31, 2019 Frequency: At least 5 of 7 days/Wk (IRF) Estimated Hrs Per Day: 1.5 hours per day Patient and/or Family Agrees t: Yes Safety Risks/Education Patient Education: Correct Positioning, Safety Issues Teaching Recipient: Patient Teaching Methods: Demonstration, Discussion Response to Teaching: Reinforcement Needed Time/GCodes Time In: 1300 Time Out: 1330 Total Billed Treatment Time: 30 Total Billed Treatment 1 visit EX 30' ADRIENNE DURAN PT Jan 16, 2019 13:27
[2019-01-16] MEDS: ENOXAPARIN 40 MG/0.4 ML (LOVENOX) SYR SC SCH (14:46)
--- NOTE | 2019-01-16 15:16 | Occupational Ther Daily Note ---
OT Current Status-Daily Note Subjective Pt. does not verbalize pain. Agrees to work with therapy. Mental Status/Objective Patient Orientation: Person, Place Therapy Code Descriptions/Definitions Functional [place] Measure: 0=Not Assessed/NA 4=Minimal Assistance 1=Total Assistance 5=Supervision or Setup 2=Maximal Assistance 6=Modified [place] 3=Moderate Assistance 7=Complete [place] ADL-Treatment Therapy Code Descriptions/Definitions Functional [place] Measure: 0=Not Assessed/NA 4=Minimal Assistance 1=Total Assistance 5=Supervision or Setup 2=Maximal Assistance 6=Modified [place] 3=Moderate Assistance 7=Complete [place] Therapy Quality Codes: 6 Independent with activity with or without an assistive device 5 Patient requires set up or clean up by helper. Patient completes activity by themselves 4 Supervision or touching assist (CGA). [place] provide cues , steadying assist 3 The helper provides less than half the effort to complete the activity 2 The helper provides more than half the effort to complete the activity 1 Dependent. The helper does all the effort to complete an activity 7 Patient refused to complete or attempt activity 9 The patient did not perform the activity before the current illness or injury 88 Not attempted due to Medical conditions or safety concerns Grooming (FIM): 1 (Dependent to comb hair.) Bathing (FIM): 1 Shower/Bathe Self (QC): 1 Upper Body (FIM): 1 (Dependent to doff/don shirt in sitting position.) Upper Body Dressing (QC): 1 Lower Body Dressing (FIM): 1 Lower Body Dressing (QC): 1 On/Off Footwear (QC): 1 Toileting (FIM): 1 (Pt. incontinent of BM. OT/PT rolled pt. in bed to cleanse and change depend and shorts.) Toileting Hygiene (QC): 1 Transfers (B, C, W/C) (FIM): 1 Pt. agrees to work with therapy. Co-treat completed with PT/OT due to need for skilled therapy x 2. OT focused on ADLs in bed while cleansing pt. after BM while PT focused on mobility and positioning. After pt. cleaned, transferred to wheelchair via jareth lift. PT assisted pt. with driving chair while OT assessed need for built up cindi stick. Applied foam tape and pen to make goal post type cindi stick. This assisted pt. more with being able to drive his chair. Pt. unable to pull back on cindi stick yet due to tricep weakness. Pt. able to drive forward however. Transferred pt. back to bed via jareth lift. All needs met in bed. Education OT Patient Education: Correct positioning, Modified ADL techniques, Progress toward Goal/Update tx plan, Purpose of tx/functional activities, Reviewed precautions, Rehab process, Transfer techniques Teaching Recipient: Patient Teaching Methods: Discussion Response to Teaching: Verbalize Understanding OT Short Term Goals Short Term Goals Time Frame: Jan 24, 2019 Grooming(FIM): 2 (with AE) Upper Body Dressing(FIM): 2 Transfers (B,C,W/C) (FIM): 1 Additional Short Term Goals: 3-ImproveStrength/Estella 1=Demonstrate adherence to instructed precautions during ADL tasks. 2=Patient will verbalize/demonstrate understanding of assistive devices/modifications for ADL. 3=Patient will improve strength/tolerance for activity to enable patient to perform ADL's. OT Fci Goals Fci Goals Time Frame: Feb 14, 2019 Eating (FIM): 3 Eating (QC): 3 Groomin Oral Hygiene (QC): 3 Upper Body Dressing(FIM): 3 Additional Goals: 3-ImproveStrength/Estella 1=Demonstrate adherence to instructed precautions during ADL tasks. 2=Patient will verbalize/demonstrate understanding of assistive devices/modifications for ADL. 3=Patient will improve strength/tolerance for activity to enable patient to perform ADL's. OT Education/Plan Problem List/Assessment Assessment: Decreased Activ Tolerance, Decreased UE Strength, Dependent Transfers, Impaired Bed Mobility, Impaired Coordination, Impaired Funct Balance, Impaired I ADL's, Impaired Self-Care Skills, Restricted Funct UE ROM Discharge Recommendations Plan/Recommendations: Continue POC Therapy D/C Recommendations: 24 hr Supervision Treatment Plan/Plan of Care Treatment,Training & Education: Yes Patient would benefit from OT for education, treatment and training to promote independence in ADL's, mobility, safety and/or upper extremity function for ADL's. Plan of Care: ADL Retraining, Caregiver Training, Functional Mobility, Group Exercise/Act as Ind, UE Funct Exercise/Act, UE Neuromus Re-Ed/Coord, W/C Management Training Treatment Duration: Feb 14, 2019 Frequency: At least 5 of 7 days/Wk (IRF) Estimated Hrs Per Day: 1.5 hours per day Agreement: Yes Rehab Potential: Guarded Time/GCodes Start Time: 09:00 Stop Time: 10:00 Total Time Billed (hr/min): 60 Billed Treatment Time 1, ADL x 15minutes, FA x 45minutes SHEYLA PETERSON OT Jan 16, 2019 15:16
--- NOTE | 2019-01-16 15:23 | Occupational Ther Daily Note ---
OT Current Status-Daily Note Subjective No pain reported. Mental Status/Objective Patient Orientation: Person, Place Therapy Code Descriptions/Definitions Functional [place] Measure: 0=Not Assessed/NA 4=Minimal Assistance 1=Total Assistance 5=Supervision or Setup 2=Maximal Assistance 6=Modified [place] 3=Moderate Assistance 7=Complete [place] ADL-Treatment Therapy Code Descriptions/Definitions Functional [place] Measure: 0=Not Assessed/NA 4=Minimal Assistance 1=Total Assistance 5=Supervision or Setup 2=Maximal Assistance 6=Modified [place] 3=Moderate Assistance 7=Complete [place] Therapy Quality Codes: 6 Independent with activity with or without an assistive device 5 Patient requires set up or clean up by helper. Patient completes activity by themselves 4 Supervision or touching assist (CGA). [place] provide cues , steadying assist 3 The helper provides less than half the effort to complete the activity 2 The helper provides more than half the effort to complete the activity 1 Dependent. The helper does all the effort to complete an activity 7 Patient refused to complete or attempt activity 9 The patient did not perform the activity before the current illness or injury 88 Not attempted due to Medical conditions or safety concerns Other Treatment Pt. in bed asleep. Does wake up and agrees to work with OT. OT provides gentle PROM to bilateral UE in all planes for comfort and positioning. Then assisted pt with AAROM for bicep and tricep strengthening. Pt. is demonstrating 3/5 bicep strength and 2/5 tricep. Checked pt. david area to determine if he had had a BM. Pt. clean. Rolled pt. to left side and re-positioned pillows to comfort level. All needs met. Education OT Patient Education: Correct positioning, Exercise program, Modified ADL techniques, Progress toward Goal/Update tx plan, Purpose of tx/functional activities, Reviewed precautions, Rehab process Teaching Recipient: Patient Teaching Methods: Demonstration, Discussion Response to Teaching: Verbalize Understanding OT Short Term Goals Short Term Goals Time Frame: Jan 24, 2019 Grooming(FIM): 2 (with AE) Upper Body Dressing(FIM): 2 Transfers (B,C,W/C) (FIM): 1 Additional Short Term Goals: 3-ImproveStrength/Estella 1=Demonstrate adherence to instructed precautions during ADL tasks. 2=Patient will verbalize/demonstrate understanding of assistive devices/mo difications for ADL. 3=Patient will improve strength/tolerance for activity to enable patient to perform ADL's. OT Prison Goals Prison Goals Time Frame: Feb 14, 2019 Eating (FIM): 3 Eating (QC): 3 Groomin Oral Hygiene (QC): 3 Upper Body Dressing(FIM): 3 Additional Goals: 3-ImproveStrength/Estella 1=Demonstrate adherence to instructed precautions during ADL tasks. 2=Patient will verbalize/demonstrate understanding of assistive devices/modifications for ADL. 3=Patient will improve strength/tolerance for activity to enable patient to perform ADL's. OT Education/Plan Problem List/Assessment Assessment: Decreased Activ Tolerance, Decreased UE Strength, Dependent Transfers, Impaired Bed Mobility, Impaired Coordination, Impaired Funct Balance, Impaired I ADL's, Impaired Self-Care Skills, Restricted Funct UE ROM Discharge Recommendations Plan/Recommendations: Continue POC Therapy D/C Recommendations: 24 hr Supervision Treatment Plan/Plan of Care Treatment,Training & Education: Yes Patient would benefit from OT for education, treatment and training to promote independence in ADL's, mobility, safety and/or upper extremity function for ADL's. Plan of Care: ADL Retraining, Caregiver Training, Functional Mobility, Group Exercise/Act as Ind, UE Funct Exercise/Act, UE Neuromus Re-Ed/Coord, W/C Management Training Treatment Duration: Feb 14, 2019 Frequency: At least 5 of 7 days/Wk (IRF) Estimated Hrs Per Day: 1.5 hours per day Agreement: Yes Rehab Potential: Guarded Time/GCodes Start Time: 13:35 Stop Time: 13:50 Total Time Billed (hr/min): 15 Billed Treatment Time 1, Ex SHEYLA PETERSON OT Jan 16, 2019 15:23
[2019-01-16 15:42] VITALS: BP 166/90
--- NOTE | 2019-01-16 17:53 | Progress Note - Surgery ---
Subjective Date Seen by a Provider: Jan 16, 2019 Time Seen by a Provider: 17:49 Subjective/Events-last exam patient no new complaints. Passing flatus having bowel movement.no abdominal pain. Denies any nausea vomiting fever sweats chills shortness breath or chest pain. Objective Exam Vital Signs Date Time Temp Pulse Resp B/P (MAP) Pulse Ox O2 Delivery O2 Flow Rate FiO2 01/16/19 15:42 97.0 66 16 166/90 (115) 99 Trach Collar 10.00 01/16/19 14:37 98 Trach Collar 6.00 28 01/16/19 10:36 97 Trach Collar 6.00 28 01/16/19 09:00 Trach Collar 6.00 28 01/16/19 06:22 95 Trach Collar 6.00 28 01/16/19 06:07 96.4 74 18 118/71 (87) 96 Trach Collar 10.00 01/16/19 03:11 95 Trach Collar 6.00 28 01/15/19 23:18 94 Trach Collar 6.00 01/15/19 21:00 Trach Collar 6.00 28 01/15/19 18:17 96 Trach Collar 6.00 28 01/15/19 18:00 Trach Collar 28.00 6.00 I & O 01/16/19 07:00 Intake Total 1060 ml Output Total 2200 ml Balance -1140 ml Capillary Refill : Less Than 3 SecondsLess Than 3 Seconds General Appearance: No Apparent Distress, WD/WN, Chronically ill HEENT: PERRL/EOMI, Normal ENT Inspection, Pharynx Normal, Moist Mucous Membranes Neck: Other (in collar) Respiratory: Chest Non Tender, No Accessory Muscle Use, No Respiratory Distress, Other (trach in place) Cardiovascular: Regular Rate, Rhythm Gastrointestinal: soft, distended (slight) Extremity: Normal Capillary Refill Neurologic/Psychiatric: Alert, Oriented x3, process controls technician II-XII Norm as Tested, Depressed Affect, Motor Weakness (bilateral lower extremities and deficits at waist) Skin: Normal Color, Warm/Dry, Other (decubitus ulcer coccyx, right heel ulcer) Lymphatic: No Adenopathy Results Lab Laboratory Tests 01/15/19 21:44: Glucometer 231H 01/16/19 06:00: Glucometer 129H 01/16/19 11:01: Glucometer 158H 01/16/19 15:32: Glucometer 181H Microbiology 01/10/19 Blood Culture - Final, Complete No growth 01/10/19 Gram Stain - Final, Complete 01/10/19 Sputum Culture - Final, Complete Usual upper respiratory aaron YEAST Assessment/Plan Assessment/Plan Assessment/Plan 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 abdominal distention improved and having function Decubitus ulcer coccyx ileus Patient with bowel movements and passing flatus we'll slowly advance diet Patient with decubitus ulcer will continue to monitor may need debridement furtherwill continue to monitor packed with iodoform Gauze daily and when necessary Will follow. Clinical Quality Measures DVT/VTE Risk/Contraindication: Risk Factor Score Per Nursin RFS Level Per Nursing on Admit: 4+=Very High NIKOLAY SANFORD DO Jan 16, 2019 17:53
[2019-01-16] MEDS: MELATONIN 3 MG TABLET PO SCH (21:08)
[2019-01-16] MEDS: MONTELUKAST 10 MG (SINGULAIR) TAB PO SCH (21:09)
[2019-01-16] MEDS: QUEtiapine 25 MG (SEROquel) TAB IMMEDIATE RELEASE PO SCH (21:09)
--- NOTE | 2019-01-16 21:52 | NUR ---
Accucheck 275, Levemir 13 units BID on hold. Pt no longer NPO. Dr. Cordero notified. New order to resume Levemir 13 units SQ BID.
[2019-01-17] MEDS: METOCLOPRAMIDE INJ 10 MG/2 ML (REGLAN) IVP SCH ×4 (00:08→17:57)
[2019-01-17] MEDS: RT-ALBUTEROL/IPRATROPIUM 3 ML (DUONEB) VIAL INH SCH ×5 (02:58→19:33)
[2019-01-17] MEDS: PIPERACILLIN/TAZO 4.5 GM/NS 100 ML IV SCH ×6 (03:09→20:31)
[2019-01-17 05:20] VITALS: BP 138/87
[2019-01-17] MEDS: inSUlin ASPART (NovoLOG) 1 UNIT/0.01 ML (CHARGE PER UNIT) SC SCH ×4 (05:55→21:06)
[2019-01-17] MEDS: guaiFENesin SYRUP 100 MG/5 ML 10 ML (ROBITUSSIN SF) PEG SCH ×3 (05:57→21:30)
[2019-01-17] MEDS: aCETylcysteine 20% (MUCOMYST) 30ML SOLN VIAL INH SCH ×4 (06:27→19:33)
[2019-01-17 06:39] LABS: BASOPHILS % (AUTO) 0 % (0-10); EOSINOPHILS # (AUTO) 0.1 10^3/uL (0.0-0.3); EOSINOPHILS % (AUTO) 1 % (0-10); HEMATOCRIT 33 % (40-54); HEMOGLOBIN 10.4 G/DL (13.3-17.7); LYMPHOCYTES # (AUTO) 1.9 X 10^3 (1.0-4.0); LYMPHOCYTES % (AUTO) 32 % (12-44); MEAN CORPUSCULAR HEMOGLOBIN 31 PG (25-34); MEAN CORPUSCULAR HGB CONC 32 G/DL (32-36); MEAN CORPUSCULAR VOLUME 97 FL (80-99); MEAN PLATELET VOLUME 8.3 FL (7.4-10.4); MONOCYTES # (AUTO) 0.9 X 10^3 (0.0-1.0); MONOCYTES % (AUTO) 15 % (0-12); NEUTROPHILS # (AUTO) 3.1 X 10^3 (1.8-7.8); NEUTROPHILS % (AUTO) 52 % (42-75); PLATELET COUNT 236 10^3/uL (130-400); RED CELL DISTRIBUTION WIDTH 14.7 % (10.0-14.5)
[2019-01-17 06:59] LABS: ALANINE AMINOTRANSFERASE 21 U/L (0-55); ALBUMIN 3.2 GM/DL (3.2-4.5); ALKALINE PHOSPHATASE 164 U/L (40-136); BILIRUBIN,TOTAL 0.3 MG/DL (0.1-1.0); BUN/CREATININE RATIO 13; CALCIUM 9.5 MG/DL (8.5-10.1); CARBON DIOXIDE 23 MMOL/L (21-32); CHLORIDE 109 MMOL/L (98-107); CREATININE SERUM 0.62 MG/DL (0.60-1.30); GFR ESTIMATED > 60; GLUCOSE 89 MG/DL (70-105); POTASSIUM 3.1 MMOL/L (3.6-5.0); SODIUM 143 MMOL/L (135-145); TOTAL PROTEIN 7.3 GM/DL (6.4-8.2)
--- NOTE | 2019-01-17 08:57 | PM&R Progress Note ---
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 He was unable to maintain his airway. He was intubated at the scene. He was assessed in the ER by Dr. Vaughan trauma surgeon found to have significant hypotension requiring aggressive IV fluids and pressor therapy but then was assessed that he was likely an spinal cord shock and multiple right rib fractures with flail chest requiring transfer to [facility] trauma surgery which resulted in multiple procedures including tracheostomy due to failing weaning protocol on ventilator, PEG tube placement, spine MRIs confirming C3-C7 spinal cord injury complete with plating of ribs 510 on the right side and right sided chest tube. He was found to have drug screen positive for marijuana and methamphetamine. Neurosurgery was consulted perform decompressive laminectomy on C3-C7 with C4-C5 autograft bone screws and rods. He was diagnosed with Haemophilus influenza while intubated and that treatment was completed. He did have rhabdomyolysis from his injuries requiring aggressive IV fluids but they all resolved. Hyperglycemia was diagnosed and he was started on insulin and elevated liver enzymes have improved since admission and hepatitis viral panel along with HIV were negative. He did receive 2 units of packed red blood cells hospitalized. Currently patient is requiring wound care consult by Dr. Craven and general surgery consultation by Dr. García because additional debridement of the sacral decubitus ulcer will be required. He will remain with the c-collar in place until seen Dr. Nesbitt on 01/30/19. Hemoglobin today is 10.1. Dr. Arcos's been consulted for pulmonary issues which she is having increased secretions today in addition urology will be consulted for Zamarripa catheter maintenance for neurogenic bladder. I did speak with Dr. Arcos who will panculture the patient and change breathing treatments to clear secretions. Patient remains total care with quadriplegia. Subjective/Events-last exam Pt had Vancomycin discontinued and will continue on Zosyn Sugar was 87 this morning Stomach is soft and less distended Legs are moving more and more Decubitus ulcer will have iodoform wound dressing placed and the wound itself is 4 cm by 4 cm Neck brace is requested to be removed so we will reach out to Dr. Nesbitt to see when that can be done Potassium on labs was 3.1 so we will supplement with 10 meq PO daily Checked meds and labs Reviewed consultation notes. Conferred with RN Reviewed therapy notes Review of Systems Neurological: Weakness, Numbness, Incoordination Objective Exam Vital Signs Vital Signs Date Time Temp Pulse Resp B/P (MAP) Pulse Ox O2 Delivery O2 Flow Rate FiO2 01/17/19 21:00 Trach Collar 6.00 28 01/17/19 17:40 97.6 68 18 144/76 (98) 99 Capillary Refill : Less Than 3 SecondsLess Than 3 Seconds General Appearance: No Apparent Distress, WD/WN, Chronically ill, Thin HEENT: PERRL/EOMI, Normal ENT Inspection, Pharynx Normal, Moist Mucous Membranes Neck: Other (in collar) Respiratory: Chest Non Tender, Lungs Clear (subtle coarseness), Normal Breath Sounds, No Accessory Muscle Use, No Respiratory Distress, Other (trach in place) Cardiovascular: Regular Rate, Rhythm Gastrointestinal: Normal Bowel Sounds, No Organomegaly, No Pulsatile Mass, Abnormal Bowel Sounds, Distended, Other (PEG in place) Back: Normal Inspection, No CVA Tenderness, No Vertebral Tenderness Extremity: Normal Capillary Refill Neurologic/Psychiatric: Alert, Oriented x3, manager garden II-XII Norm as Tested, Depressed Affect, Motor Weakness (bilateral lower extremities and deficits at waist) Skin: Normal Color, Warm/Dry, Other (decubitus ulcer coccyx, right heel ulcer) Lymphatic: No Adenopathy Results/Procedures Lab Laboratory Tests 01/17/19 06:31 Patient resulted labs reviewed. FIM Transfers Therapy Code Descriptions/Definitions Functional [place] Measure: 0=Not Assessed/NA 4=Minimal Assistance 1=Total Assistance 5=Supervision or Setup 2=Maximal Assistance 6=Modified [place] 3=Moderate Assistance 7=Complete [place] Therapy Quality Codes: 6 Independent with activity with or without an assistive device 5 Patient requires set up or clean up by helper. Patient completes activity by themselves 4 Supervision or touching assist (CGA). [place] provide cues , steadying a ssist 3 The helper provides less than half the effort to complete the activity 2 The helper provides more than half the effort to complete the activity 1 Dependent. The helper does all the effort to complete an activity 7 Patient refused to complete or attempt activity 9 The patient did not perform the activity before the current illness or injury 88 Not attempted due to Medical conditions or safety concerns Transfers (B, C, W/C) (FIM): 1 Scootin Rollin Roll Left to Right (QC): 1 Supine to/from Sit: 1 Sit to Lying (QC): 1 Chair/Xux-or-Dmxtv Xfer(QC): 1 Bed to/from Chair: 1 Car Transfer (QC): 1 Gait Training Does the Patient Walk?: No and Walking Goal NOT indicated Wheelchair Training Does the Pt Use a Wheelchair?: Yes Wheelchair (FIM): 1 Distance: 50'x3 Wheelchair Level of Assist: 4 Type of Wheelchair: Manual Mental Status/Objective Comprehension: 6 Expression: 6 Social Interaction: 6 Problem Solvin Memory: 4 ADL-Treatment Feedin (hand over hand feed ) Eating (QC): 1 Groomin (Dependent to comb hair.) Bathin Shower/Bathe Self (QC): 1 Upper Extremity Dressin (Dependent to doff/don shirt in sitting position.) Upper Body Dressing (QC): 1 Lower Extremity Dressin Lower Body Dressing (QC): 1 On/Off Footwear (QC): 1 Toiletin (Pt. incontinent of BM. OT/PT rolled pt. 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 Nesbitt at [facility] 12/07/18 Rib plating on the right Closed right scapular fracture Diabetes mellitus [id number] requiring insulin PEG tube status Trach dependent Anemia Hypertension DVT prophylaxis with Lovenox Neurogenic bladder requiring Zamarripa catheter and urology recommends maintained to help heal decubitus ulcer in the meantime Decubitus ulcer s/p debridement but appears to need additional debridement tomorrow OJ Psychosis resolved with Seroquel Depression placed on Celexa Ileus? Resolving Plan: Broad-spectrum antibiotics for decubitus ulcer infection Debridement per Dr. García and Dr. Craven and it appears to need additional debridement Wound VAC after debridement Maintain on Lovenox Consult urology is appreciated Rehabilitation to focus on transfers and lessen burden on caretakers skilled nursing placement? Remove neck brace while sleeping to aid in alleviation of discomfort causing behaviors Stopped oral nutrition due to ileus Seroquel at night Celexa in the morning CLD and advance as tolerated, appreciate general surgery Supplement potassium (1) Post-traumatic quadriplegia (2) Diabetes mellitus (3) Anemia (4) Anxiety (5) Chronic pain (6) Neurogenic bladder (7) HLD (hyperlipidemia) (8) Tracheostomy dependent (9) DVT prophylaxis (10) Closed right scapular fracture (11) Right rib fracture (12) Right pulmonary contusion (13) Decubitus ulcer of coccygeal region, stage 4 (14) Shock due to spinal cord injury (15) Paresthesias (16) Illicit drug use (17) Cellulitis (18) Hypertension (19) Type 2 diabetes mellitus with hyperglycemia (20) PEG (percutaneous endoscopic gastrostomy) status MARGUERITE GAN DO Jan 17, 2019 08:57
[2019-01-17] MEDS ORDERED: KCL 10 MEQ TAB (MICRO K) PO NR (09:00)
[2019-01-17] MEDS: SENNA W/DOCUSATE (SENOKOT S) TABLET PO SCH ×2 (09:00→20:54)
--- NOTE | 2019-01-17 09:37 | Speech Therapy Daily Note ---
Speech Daily Progress Note Subjective Date Seen by Provider: Jan 17, 2019 Time Seen by Provider: 00:30 Patient was alert and pleasant. Patient was eating breakfast with nurse and complained of increased mucus during the morning hours Objective Patient participated in PO trials of Dysphagia I (i.e. purees) solids and thin liquids. Patient tolerated 1 tsp bites, alternating with liquids every few bites. Patient did not demonstrate s/s aspiration. Patient was sitting upright 90 degrees during PO trials and independently verbalized safe swallowing s trategies including sitting upright following feeding ~10-15 minutes. Assessment Assessment Current Status: Good Progress Treatment Plan Continue Plan of Care Communication Comprehension: 6 Expression: 6 Social Cognition Social Interaction: 6 Problem Solvin Memory: 4 Speech Short Term Goals Short Term Goals Short Term Goals 1) The patient will complete memory tasks related to his daily needs at 90% or greater with minimal cues. 2) The patient will complete problem solving tasks related to his daily needs at 90% or greater with minimal cues. 3) The patient will complete safety awareness tasks related to his daily needs at 90% or greater with minimal cues. 4) The patient will tolerate least restrictive diet without s/s of aspiration with 90% or greater. 5) The patient will demonstrate compliance of utilization of compensatory strategies as trained at 90% or greater with minimal cues. Speech Assisted Goals Agriculture Mechanic Goals The patient will improve his cognitive status for a safe return home. The patient will maintain adequate nutrition/hydration via safe effective swallow function and/or PEG tube. Speech-Plan Patient/Family Goals Patient/Family Goals: Patient plans to return home and improve swallow function Treatment Plan Speech Therapy Treatment Plan: Continue Plan of Care Patient is making good progress towards goals. Potential for diet advancement and PO trials of minced/moist and small/soft textures. Treatment Duration: Jan 26, 2019 Frequency: 5 times per week Estimated Hrs Per Day: .5 hour per day Rehab Potential: Guarded Barriers to Learning: cognitive-communication and dysphagia Pt/Family Agrees to Plan: Yes Safety Risks/Education Teaching Recipient: Patient Teaching Methods: Discussion Response to Teaching: Verbalize Understanding Education Topics Provided: safe swallow strategies (sitting upright during and after swallow ~10-15min, small bites/sips, alternating liquid and solids) Time Speech Therapy Time In: 07:50 Speech Therapy Time Out: 08:20 Total Billed Time: 30 Billed Treatment Time 1, LUIS DANIEL CANDIDA Beckford Jan 17, 2019 09:37
[2019-01-17] MEDS: FAMOTIDINE 20 MG (PEPCID) TABLET PO SCH ×2 (10:11→20:54)
[2019-01-17] MEDS: LORATADINE (CLARITIN) 10 MG TAB PO SCH (10:11)
[2019-01-17] MEDS: POT PHOS/NA PHOS (K-PHOS NEUTRAL) PO SCH ×2 (10:11→20:53)
[2019-01-17] MEDS: ALPRAZolam 0.5 MG (XANAX) TAB PEG PRN ×2 (10:11→21:05)
[2019-01-17] MEDS: MIDODRINE 10 MG (PROAMATINE) TAB PO SCH ×3 (10:11→20:53)
--- NOTE | 2019-01-17 10:15 | Physical Therapy Daily Note ---
PT Daily Note-Current Subjective Pt. in bed on arrival , Agrees to co Rx PT OT session. Pt.states he would like to go out side as long as he doesnt smell cigarette smoke. c/o some neck pain and discomfort while upright at 5/10. Also c/o he doesnt really see well while attempting to maneuver w/c. OT trialed eye patch over right eye with no notable difference Pain Numeric Pain Scale: 5-Moderate Pain Location: Medial Location Body Site: Neck Pain Description: Pressure Mental Status Patient Orientation: Normal For Age Attachments: Oxygen, Zamarripa Catheter Transfers Therapy Code Descriptions/Definitions Functional [place] Measure: 0=Not Assessed/NA 4=Minimal Assistance 1=Total Assistance 5=Supervision or Setup 2=Maximal Assistance 6=Modified [place] 3=Moderate Assistance 7=Complete [place] Therapy Quality Codes: 6 Independent with activity with or without an assistive device 5 Patient requires set up or clean up by helper. Patient completes activity by themselves 4 Supervision or touching assist (CGA). [place] provide cues , steadying assist 3 The helper provides less than half the effort to complete the activity 2 The helper provides more than half the effort to complete the activity 1 Dependent. The helper does all the effort to complete an activity 7 Patient refused to complete or attempt activity 9 The patient did not perform the activity before the current illness or injury 88 Not attempted due to Medical conditions or safety concerns Transfers (B, C, W/C) (FIM): 1 Scootin Rollin Supine to/from Sit: 1 Sit to/from Stand: 1 Bed to/from Chair: 1 jareth TRF for all out of bed, 1-2 max for bed mob Gait Training Does the Patient Walk?: No and Walking Goal NOT indicated Wheelchair Training Does the Pt Use a Wheelchair?: Yes Wheelchair (FIM): 3 Wheelchair Distance: 3=150 ft (150,100) Wheelchair Level of Assist: 3 Type of Wheelchair: Motorized OT assisting to tweak comfort of right hand on toggle and best positioning for control. speed on slow for best control. steering required assist inderjit through doors and on off elevator. Pt. out of doors for a period this date, challenge of maneuvering through narrow doorway required max assist and explanation. Exercises Supine Ex: Rolling, Heel Slides, Hip abd/add Supine Reps: 8 (all passive during bathing and dressing) Treatments bathing and dressing all max assist with instruction and explanation to pt. as it progressed etc Assessment Current Status: Fair Progress dependent for all PT Short Term Goals Short Term Goals Time Frame: Jan 17, 2019 Transfers (B,C,W/C) (FIM): 1 Wheelchair (FIM): 4 (if he can get a power chair) Wheelchair Distance: 50'x3 Wheelchair Level of Assist: 4 PT Assisted Goals Police Records Clerk Goals PT Assisted Goals Time Frame: Jan 31, 2019 Transfers (B,C,W/C) (FIM): 1 Sit to Lying (QC): 1 Lying-Sitting on Side/Bed(QC): 1 Rollin Roll Left to Right (QC): 2 Chair/Xch-op-Fqsxk Xfer(QC): 1 Car Transfer (QC): 1 Wheelchair (FIM): 5 (if he can get a power chair) Distance: 150' Wheelchair Level of Assist: 5 Wheel 50 feet with 2 turns (QC: 4 PT Plan Treatment/Plan Treatment Plan: Continue Plan of Care Treatment Plan: Bed Mobility, Concurrent Therapy, Education, Functional Activity Estella, Functional Strength, Group Therapy, Safety, Therapeutic Exercise, Transfers Treatment Duration: Jan 31, 2019 Frequency: At least 5 of 7 days/Wk (IRF) Estimated Hrs Per Day: 1.5 hours per day Patient and/or Family Agrees t: Yes Safety Risks/Education Patient Education: Correct Positioning, W/C Management, Disease Process, Safety Issues Teaching Recipient: Patient Teaching Methods: Demonstration, Discussion Response to Teaching: Reinforcement Needed Time/GCodes Time In: 900 Time Out: 1005 Total Billed Treatment Time: 65 Total Billed Treatment 1,FA35m,wch30m G Codes Necessary: ANTOINE Davis MANAGER WELLNESS Jan 17, 2019 10:14
--- NOTE | 2019-01-17 11:40 | NUR ---
In efforts to obtain a long-term care facility locally, [employer]HE[employer]ICS FACULT[employer] MEMBER sent referral to [facility]. If denied, MATHEMATICS FACULTY MEMBER will reach out to other area facilities; however, proximity will be a challenge for patient's family to visit.
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
--- NOTE | 2019-01-17 13:24 | Physical Therapy Daily Note ---
PT Daily Note-Current Subjective Pt. agrees to stretching LEs. Transfers Therapy Code Descriptions/Definitions Functional [place] Measure: 0=Not Assessed/NA 4=Minimal Assistance 1=Total Assistance 5=Supervision or Setup 2=Maximal Assistance 6=Modified [place] 3=Moderate Assistance 7=Complete [place] Therapy Quality Codes: 6 Independent with activity with or without an assistive device 5 Patient requires set up or clean up by helper. Patient completes activity by themselves 4 Supervision or touching assist (CGA). [place] provide cues , steadying assist 3 The helper provides less than half the effort to complete the activity 2 The helper provides more than half the effort to complete the activity 1 Dependent. The helper does all the effort to complete an activity 7 Patient refused to complete or attempt activity 9 The patient did not perform the activity before the current illness or injury 88 Not attempted due to Medical conditions or safety concerns Exercises Supine Ex: Ankle pumps (HC stretches 4 x 20s), Heel Slides (passive stretch), Straight leg raise (HS stretch 3 x 20s), Hip abd/add (passive ) Supine Reps: 8 Treatments positioned with LEs heels free and rolled on side with pillow support, touch schmidt at hand Assessment Current Status: Fair Progress PT Short Term Goals Short Term Goals Time Frame: Jan 17, 2019 Transfers (B,C,W/C) (FIM): 1 Wheelchair (FIM): 4 (if he can get a power chair) Wheelchair Distance: 50'x3 Wheelchair Level of Assist: 4 PT Snf Goals Snf Goals PT Snf Goals Time Frame: Jan 31, 2019 Transfers (B,C,W/C) (FIM): 1 Sit to Lying (QC): 1 Lying-Sitting on Side/Bed(QC): 1 Rollin Roll Left to Right (QC): 2 Chair/Bgb-tg-Efuil Xfer(QC): 1 Car Transfer (QC): 1 Wheelchair (FIM): 5 (if he can get a power chair) Distance: 150' Wheelchair Level of Assist: 5 Wheel 50 feet with 2 turns (QC: 4 PT Plan Treatment/Plan Treatment Plan: Continue Plan of Care Treatment Plan: Bed Mobility, Concurrent Therapy, Education, Functional Activity Estella, Functional Strength, Group Therapy, Safety, Therapeutic Exercise, Transfers Treatment Duration: Jan 31, 2019 Frequency: At least 5 of 7 days/Wk (IRF) Estimated Hrs Per Day: 1.5 hours per day Patient and/or Family Agrees t: Yes Safety Risks/Education Patient Education: Correct Positioning, Disease Process Time/GCodes Time In: 1300 Time Out: 1320 Total Billed Treatment Time: 20 Total Billed Treatment 1,EX20m G Codes Necessary: ANTOINE Davis MAINTENANCE WORKER Jan 17, 2019 13:23
[2019-01-17] MEDS ORDERED: KCL 20 MEQ TAB (K-DUR) PO NR (14:45)
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
--- NOTE | 2019-01-17 14:48 | Pulmonary Progress Note ---
Subjective Time Seen by a Provider: 12:19 Subjective/Events-last exam Pt is feeling better. No complications noted. Sepsis Event Evaluation Height, Weight, BMI Height: 5'3.00" Weight: 147lbs. 8.0oz. 66.415043jn; 26.1 BMI Method:Stated Exam Exam Vital Signs Date Time Temp Pulse Resp B/P (MAP) Pulse Ox O2 Delivery O2 Flow Rate FiO2 01/17/19 11:15 95 Trach Collar 6.00 28 01/17/19 09:00 Trach Collar 6.00 28 01/17/19 06:27 95 Trach Collar 6.00 28 01/17/19 05:20 97.2 70 22 138/87 (104) 97 Trach Collar 10.00 01/17/19 02:58 97 Trach Collar 6.00 28 01/16/19 21:49 96 Trach Collar 6.00 28 01/16/19 20:15 Trach Collar 6.00 28 01/16/19 18:55 96 Trach Collar 6.00 28 01/16/19 15:42 97.0 66 16 166/90 (115) 99 Trach Collar 10.00 I & O 01/17/19 06:59 Intake Total 1027.5 ml Output Total 2675 ml Balance -1647.5 ml Height & Weight Height: 5'3.00" Weight: 147lbs. 8.0oz. 66.764767sq; 26.1 BMI Method:Stated General Appearance: No Apparent Distress, WD/WN, Chronically ill HEENT: PERRL/EOMI, Pharynx Normal Neck: Full Range of Motion, Non Tender, Supple Respiratory: Chest Non Tender, No Accessory Muscle Use, No Respiratory Distress, Decreased Breath Sounds Cardiovascular: Regular Rate, Rhythm Capillary Refill: Less Than 3 Seconds Gastrointestinal: normal bowel sounds, non tender, soft Extremity: Normal Capillary Refill, No Pedal Edema Neurologic/Psychiatric: Alert, Oriented x3 Skin: Normal Color, Warm/Dry Results Lab Laboratory Tests 01/17/19 06:31 Assessment/Plan Assessment/Plan 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 Nesbitt at [facility] Tracheostomy -sputum culture -SVNS with duoneb and mucomyst -repeat CXR Decubitus ulcer stage 4 -wound care Rib plating on the right Closed right scapular fracture Diabetes mellitus [id number] requiring insulin PEG tube status Anemia -Monitor Hypertension Neurogenic bladder with Zamarripa catheter Decubitus ulcer in need of debridement -Wound vac -Surgery following Illicit drug use ALONDRA HUSSEIN DO Jan 17, 2019 14:48
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
[2019-01-17] MEDS: ENOXAPARIN 40 MG/0.4 ML (LOVENOX) SYR SC SCH (15:51)
[2019-01-17 17:40] VITALS: BP 144/76
[2019-01-17] MEDS: QUEtiapine 25 MG (SEROquel) TAB IMMEDIATE RELEASE PO SCH (20:53)
[2019-01-17] MEDS: MONTELUKAST 10 MG (SINGULAIR) TAB PO SCH (20:53)
[2019-01-17] MEDS: MELATONIN 3 MG TABLET PO SCH (20:54)
--- NOTE | 2019-01-17 22:48 | Progress Note - Surgery ---
Subjective Date Seen by a Provider: Jan 17, 2019 Time Seen by a Provider: 10:18 Subjective/Events-last exam Patient states doing okay. Passing flatus and bm. Abdominal distention going down some. Denies any other complaints at this time. Had sacrum bandage just changed and nursing reports wound stable, patient declines changing again at this time. Objective Exam Vital Signs Date Time Temp Pulse Resp B/P (MAP) Pulse Ox O2 Delivery O2 Flow Rate FiO2 01/17/19 21:00 Trach Collar 6.00 28 01/17/19 17:40 97.6 68 18 144/76 (98) 99 Trach Collar 10.00 01/17/19 14:48 97 Trach Collar 6.00 28 01/17/19 11:15 95 Trach Collar 6.00 28 01/17/19 09:00 Trach Collar 6.00 28 01/17/19 06:27 95 Trach Collar 6.00 28 01/17/19 05:20 97.2 70 22 138/87 (104) 97 Trach Collar 10.00 01/17/19 02:58 97 Trach Collar 6.00 28 I & O 01/17/19 07:00 Intake Total 1027.5 ml Output Total 2675 ml Balance -1647.5 ml Capillary Refill : Less Than 3 SecondsLess Than 3 Seconds General Appearance: No Apparent Distress, WD/WN, Chronically ill, Thin HEENT: PERRL/EOMI, Normal ENT Inspection, Pharynx Normal, Moist Mucous Membranes Neck: Other (in collar) Respiratory: Chest Non Tender, No Accessory Muscle Use, No Respiratory Distress, Crackles, Other (trach in place) Cardiovascular: Regular Rate, Rhythm Gastrointestinal: soft, distended (less) Extremity: Normal Capillary Refill Neurologic/Psychiatric: Alert, Oriented x3, development rep II-XII Norm as Tested, Depressed Affect, Motor Weakness (bilateral lower extremities and deficits at waist) Skin: Normal Color, Warm/Dry Lymphatic: No Adenopathy Results Lab Laboratory Tests 01/17/19 05:28: Glucometer 93 01/17/19 05:54: Glucometer 97 01/17/19 06:31: White Blood Count 6.0, Red Blood Count 3.37L, Hemoglobin 10.4L, Hematocrit 33L, Mean Corpuscular Volume 97, Mean Corpuscular Hemoglobin 31, Mean Corpuscular Hemoglobin Concent 32, Red Cell Distribution Width 14.7H, Platelet Count 236, Mean Platelet Volume 8.3, Neutrophils (%) (Auto) 52, Lymphocytes (%) (Auto) 32, Monocytes (%) (Auto) 15H, Eosinophils (%) (Auto) 1, Basophils (%) (Auto) 0, Neutrophils # (Auto) 3.1, Lymphocytes # (Auto) 1.9, Monocytes # (Auto) 0.9, Eosinophils # (Auto) 0.1, Basophils # (Auto) 0.0, Sodium Level 143, Potassium Level 3.1L, Chloride Level 109H, Carbon Dioxide Level 23, Anion Gap 11, Blood Urea Nitrogen 8, Creatinine 0.62, Estimat Glomerular Filtration Rate > 60, BUN/Creatinine Ratio 13, Glucose Level 89, Calcium Level 9.5, Corrected Calcium 10.1, Total Bilirubin 0.3, Aspartate Amino Transf (AST/SGOT) 15, Alanine Aminotransferase (ALT/SGPT) 21, Alkaline Phosphatase 164H, Total Protein 7.3, Albumin 3.2 01/17/19 11:01: Glucometer 232H 01/17/19 15:50: Glucometer 236H 01/17/19 20:53: Glucometer 202H Microbiology 01/10/19 Blood Culture - Final, Complete No growth 01/10/19 Gram Stain - Final, Complete 01/10/19 Sputum Culture - Final, Complete Usual upper respiratory aaron YEAST Assessment/Plan Assessment/Plan Assessment/Plan 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 abdominal distention improved and having function Decubitus ulcer coccyx will re-examine tomorrow ileus-resolved Patient with bowel movements and passing flatus diet as tolerates Patient with decubitus ulcer will continue to monitor may need debridement continue to monitor packed with iodoform Gauze daily and when necessary Will follow. Clinical Quality Measures DVT/VTE Risk/Contraindication: Risk Factor Score Per Nursin RFS Level Per Nursing on Admit: 4+=Very High NIKOLAY SANFORD DO Jan 17, 2019 22:47
[2019-01-18] MEDS: METOCLOPRAMIDE INJ 10 MG/2 ML (REGLAN) IVP SCH ×4 (00:01→19:12)
[2019-01-18] MEDS: PIPERACILLIN/TAZO 4.5 GM/NS 100 ML IV SCH ×6 (02:38→19:11)
[2019-01-18] MEDS: aCETylcysteine 20% (MUCOMYST) 30ML SOLN VIAL INH SCH ×7 (02:42→23:27)
[2019-01-18] MEDS: RT-ALBUTEROL/IPRATROPIUM 3 ML (DUONEB) VIAL INH SCH ×7 (02:42→23:27)
[2019-01-18] MEDS: inSUlin ASPART (NovoLOG) 1 UNIT/0.01 ML (CHARGE PER UNIT) SC SCH ×4 (05:16→20:47)
[2019-01-18 05:33] VITALS: BP 124/76
[2019-01-18] MEDS: guaiFENesin SYRUP 100 MG/5 ML 10 ML (ROBITUSSIN SF) PEG SCH ×3 (06:04→21:20)
[2019-01-18] MEDS: APAP 325 MG/10.15 ML LIQ (TYLENOL) UDC PO PRN (06:04)
[2019-01-18] MEDS: KCL 10 MEQ TAB (MICRO K) PO SCH (06:05)
[2019-01-18] MEDS: ALPRAZolam 0.5 MG (XANAX) TAB PEG PRN ×2 (06:11→14:38)
--- NOTE | 2019-01-18 09:09 | PM&R Progress Note ---
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 He was unable to maintain his airway. He was intubated at the scene. He was assessed in the ER by Dr. Vaughan trauma surgeon found to have significant hypotension requiring aggressive IV fluids and pressor therapy but then was assessed that he was likely an spinal cord shock and multiple right rib fractures with flail chest requiring transfer to [facility] trauma surgery which resulted in multiple procedures including tracheostomy due to failing weaning protocol on ventilator, PEG tube placement, spine MRIs confirming C3-C7 spinal cord injury complete with plating of ribs 510 on the right side and right sided chest tube. He was found to have drug screen positive for marijuana and methamphetamine. Neurosurgery was consulted perform decompressive laminectomy on C3-C7 with C4-C5 autograft bone screws and rods. He was diagnosed with Haemophilus influenza while intubated and that treatment was completed. He did have rhabdomyolysis from his injuries requiring aggressive IV fluids but they all resolved. Hyperglycemia was diagnosed and he was started on insulin and elevated liver enzymes have improved since admission and hepatitis viral panel along with HIV were negative. He did receive 2 units of packed red blood cells hospitalized. Currently patient is requiring wound care consult by Dr. Craven and general surgery consultation by Dr. García because additional debridement of the sacral decubitus ulcer will be required. He will remain with the c-collar in place until seen Dr. Nesbitt on 01/30/19. Hemoglobin today is 10.1. Dr. Arcos's been consulted for pulmonary issues which she is having increased secretions today in addition urology will be consulted for Zamarripa catheter maintenance for neurogenic bladder. I did speak with Dr. Arcos who will panculture the patient and change breathing treatments to clear secretions. Patient remains total care with quadriplegia. Subjective/Events-last exam Had a BM this morning Sugars are really good on insulin Nebulizers are maintained Awaiting neck brace decision from Dr. Nesbitt to see if he can discontinue that Check meds and labs Overall in a better place today No more erratic behavior maintain on Seroquel at night and Celexa in the morning Checked meds and labs Reviewed consultation notes. Conferred with RN Reviewed therapy notes Review of Systems Neurological: Weakness, Numbness, Incoordination Objective Exam Vital Signs Vital Signs Date Time Temp Pulse Resp B/P (MAP) Pulse Ox O2 Delivery O2 Flow Rate FiO2 01/18/19 21:18 Trach Collar 6.00 28 01/18/19 15:19 97.6 67 16 165/84 (111) 98 Capillary Refill : Less Than 3 SecondsLess Than 3 Seconds General Appearance: No Apparent Distress, WD/WN, Chronically ill, Thin HEENT: PERRL/EOMI, Normal ENT Inspection, Pharynx Normal, Moist Mucous Membranes Neck: Other (in collar) Respiratory: Chest Non Tender, No Accessory Muscle Use, No Respiratory Distress, Crackles, Other (trach in place) Cardiovascular: Regular Rate, Rhythm Gastrointestinal: Normal Bowel Sounds, No Organomegaly, No Pulsatile Mass, Non Tender, Soft, Other (PEG in place) Back: Normal Inspection, No CVA Tenderness, No Vertebral Tenderness Extremity: Normal Capillary Refill Neurologic/Psychiatric: Alert, Oriented x3, casino attendant II-XII Norm as Tested, Depressed Affect, Motor Weakness (bilateral lower extremities and deficits at waist) Skin: Normal Color, Warm/Dry Lymphatic: No Adenopathy Results/Procedures Lab Patient resulted labs reviewed. FIM Transfers Therapy Code Descriptions/Definitions Functional [place] Measure: 0=Not Assessed/NA 4=Minimal Assistance 1=Total Assistance 5=Supervision or Setup 2=Maximal Assistance 6=Modified [place] 3=Moderate Assistance 7=Complete [place] Therapy Quality Codes: 6 Independent with activity with or without an assistive device 5 Patient requires set up or clean up by helper. Patient completes activity by themselves 4 Supervision or touching assist (CGA). Agency provide cues , steadying assist 3 The helper provides less than half the effort to complete the activity 2 The helper provides more than half the effort to complete the activity 1 Dependent. The helper does all the effort to complete an activity 7 Patient refused to complete or attempt activity 9 The patient did not perform the activity before the current illness or injury 88 Not attempted due to Medical conditions or safety concerns Transfers (B, C, W/C) (FIM): 1 Scootin Rollin Roll Left to Right (QC): 1 Supine to/from Sit: 1 Sit to/from Stand: 1 Sit to Lying (QC): 1 Chair/Ziv-eb-Olrmp Xfer(QC): 1 Bed to/from Chair: 1 Car Transfer (QC): 1 Gait Training Does the Patient Walk?: No and Walking Goal NOT indicated Wheelchair Training Does the Pt Use a Wheelchair?: Yes Wheelchair (FIM): 3 Wheelchair Distance: 3=150 ft (150,100) Distance: 50'x3 Wheelchair Level of Assist: 3 Type of Wheelchair: Motorized Mental Status/Objective Comprehension: 6 Expression: 6 Social Interaction: 6 Problem Solvin Memory: 4 ADL-Treatment Feedin (hand over hand feed ) Eating (QC): 1 Groomin (Dependent to brush teeth and hair.) Oral Hygiene (QC): 1 Bathin Shower/Bathe Self (QC): 1 Upper Extremity Dressin Upper Body Dressing (QC): 1 Lower Extremity Dressin Lower Body Dressing (QC): 1 On/Off Footwear (QC): 1 Toiletin Toileting Hygiene (QC): 1 Toilet/Commode Transfer: 1 Toilet Transfer (QC): 1 Assessment/Plan Assessment and Plan Assess & Plan/Chief Complaint Assessment: 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 Nesbitt at [facility] 12/07/18 Rib plating on the right Closed right scapular fracture Diabetes mellitus [id number] requiring insulin PEG tube status Trach dependent Anemia Hypertension DVT prophylaxis with Lovenox Neurogenic bladder requiring Zamarripa catheter and urology recommends maintained to help heal decubitus ulcer in the meantime Decubitus ulcer s/p debridement but appears to need additional debridement tomorrow OJ Psychosis resolved with Seroquel Depression placed on Celexa Ileus-resolved Plan: Broad-spectrum antibiotics for decubitus ulcer infection Debridement per Dr. García and Dr. Craven and it appears to need additional debridement Wound VAC after debridement Maintain on Lovenox Consult urology is appreciated Rehabilitation to focus on transfers and lessen burden on caretakers [facility] placement? Remove neck brace while sleeping to aid in alleviation of discomfort causing behaviors and will await NSG recs for brace removal at his request Seroquel at night Celexa in the morning CLD and advance as tolerated, appreciate general surgery Supplement potassium (1) Post-traumatic quadriplegia (2) Diabetes mellitus (3) Anemia (4) Anxiety (5) Chronic pain (6) Neurogenic bladder (7) HLD (hyperlipidemia) (8) Tracheostomy dependent (9) DVT prophylaxis (10) Closed right scapular fracture (11) Right rib fracture (12) Right pulmonary contusion (13) Decubitus ulcer of coccygeal region, stage 4 (14) Shock due to spinal cord injury (15) Paresthesias (16) Illicit drug use (17) Cellulitis (18) Hypertension (19) Type 2 diabetes mellitus with hyperglycemia (20) PEG (percutaneous endoscopic gastrostomy) status MARGUERITE GAN DO Jan 18, 2019 09:09
--- NOTE | 2019-01-18 10:03 | Physical Therapy Daily Note ---
PT Daily Note-Current Subjective Patient in bed pre tx, agrees to PT, has no complaints of pain at rest. Will be co-treating with OT for part of treatment due to poor patient mobility, difficulty breathing on occasion, poor strength, endurance, balance, the need to coordinate UE and LE during activity. Appearance Patient in bed post tx with nurse call, phone, tray, laying on left side with pillow support and podus boot on. Mental Status Patient Orientation: Normal For Age Attachments: Oxygen, Zamarripa Catheter cervical collar Transfers Therapy Code Descriptions/Definitions Functional [place] Measure: 0=Not Assessed/NA 4=Minimal Assistance 1=Total Assistance 5=Supervision or Setup 2=Maximal Assistance 6=Modified [place] 3=Moderate Assistance 7=Complete [place] Therapy Quality Codes: 6 Independent with activity with or without an assistive device 5 Patient requires set up or clean up by helper. Patient completes activity by themselves 4 Supervision or touching assist (CGA). [place] provide cues , steadying assist 3 The helper provides less than half the effort to complete the activity 2 The helper provides more than half the effort to complete the activity 1 Dependent. The helper does all the effort to complete an activity 7 Patient refused to complete or attempt activity 9 The patient did not perform the activity before the current illness or injury 88 Not attempted due to Medical conditions or safety concerns Transfers (B, C, W/C) (FIM): 1 Scootin Rollin Bed to/from Chair: 1 jareth to WC, patient has to help roll from side to side to get sling in and out, he is able to assist a little using his biceps to turn. Wheelchair Training Does the Pt Use a Wheelchair?: Yes Wheelchair (FIM): 4 Distance: 800' Wheelchair Level of Assist: 4 Type of Wheelchair: Motorized Min assist, needs help with UE positioning and trunk positioning and turning it tight quarters. Educated patient on wheelchair needs and the importance of pressure relief and techniques to do that. Treatments bed mobility and transfers, WC mobility Assessment Current Status: Fair Progress improving WC management PT Short Term Goals Short Term Goals Time Frame: Jan 17, 2019 Transfers (B,C,W/C) (FIM): 1 Wheelchair (FIM): 4 (if he can get a power chair) Wheelchair Distance: 50'x3 Wheelchair Level of Assist: 4 PT Hemstitcher Goals Senior Living Goals PT Hemstitcher Goals Time Frame: Jan 31, 2019 Transfers (B,C,W/C) (FIM): 1 Sit to Lying (QC): 1 Lying-Sitting on Side/Bed(QC): 1 Rollin Roll Left to Right (QC): 2 Chair/Src-gr-Xmftw Xfer(QC): 1 Car Transfer (QC): 1 Wheelchair (FIM): 5 (if he can get a power chair) Distance: 150' Wheelchair Level of Assist: 5 Wheel 50 feet with 2 turns (QC: 4 PT Plan Problem List Problem List: Activity Tolerance, Functional Strength, Safety, Balance, Transfer, Bed Mobility, ROM Treatment/Plan Treatment Plan: Continue Plan of Care Treatment Plan: Bed Mobility, Concurrent Therapy, Education, Functional Activity Estella, Functional Strength, Group Therapy, Safety, Therapeutic Exercise, Transfers Treatment Duration: Jan 31, 2019 Frequency: At least 5 of 7 days/Wk (IRF) Estimated Hrs Per Day: 1.5 hours per day Patient and/or Family Agrees t: Yes Safety Risks/Education Patient Education: Transfer Techniques, Correct Positioning, W/C Management, Safety Issues Teaching Recipient: Patient Teaching Methods: Demonstration, Discussion Response to Teaching: Reinforcement Needed Time/GCodes Time In: 0900 Time Out: 1000 Total Billed Treatment Time: 60 Total Billed Treatment 1 visit FA 30' WCH 30' co-treated with OT for 45 min, PT worked on bed mobility, transfers, rolling, wheelchair mobility, education, OT worked on UE positioning and positioning in WC, transfers, WC mobility ADRIENNE DURAN PT Jan 18, 2019 10:03
[2019-01-18] MEDS: LORATADINE (CLARITIN) 10 MG TAB PO SCH (10:34)
[2019-01-18] MEDS: SENNA W/DOCUSATE (SENOKOT S) TABLET PO SCH ×2 (10:34→21:20)
[2019-01-18] MEDS: FAMOTIDINE 20 MG (PEPCID) TABLET PO SCH ×2 (10:34→20:44)
--- NOTE | 2019-01-18 11:43 | NUR ---
SENIOR SOFTWARE DEVELOPMENT MANAGER met with patient to review team conference summary. Per team, patient's tube feeding has been discontinued based on adequate oral intake, patient will complete trials for an upgrade to mechanical soft diet, Dr. Segura has been consult did for a transition from Zamarripa catheter to suprapubic, Dr. James remains consulted to provide oversight for coccyx wound, now classified as stage III pressure ulcer. Although patient has increased movement in upper extremities, movement is not functional at this time. He continues to have copious secretions requiring suctioning with each breathing treatment. As previously discussed a home plan is not appropriate at this time due to inadequate care and lack of home modifications, SENIOR SOFTWARE DEVELOPMENT MANAGER continues to search for a long-term care facility to meet patient's needs. Patient expresses understanding of current barriers for discharge, but is hopeful that SENIOR SOFTWARE DEVELOPMENT MANAGER will be able to locate a facility in the [facility] for placement. Following lengthy discussion regarding this challenge, patient is concerned that family will not be able to visit frequently if location is outside of [place]. SENIOR SOFTWARE DEVELOPMENT MANAGER sympathized with patient while explaining the need for a facility that has the ability to manage all current needs. At this time discharge is delayed until an accepting facility can be located. SENIOR SOFTWARE DEVELOPMENT MANAGER will continue to follow. Addendum: 01/18/19 at 1149 by DEYANIRA RIVERA SS SENIOR SOFTWARE DEVELOPMENT MANAGER received denial from [facility], as they do not feel they can meet the patient's needs.
[2019-01-18] MEDS: MIDODRINE 10 MG (PROAMATINE) TAB PO SCH ×3 (11:59→20:44)
[2019-01-18] MEDS: POT PHOS/NA PHOS (K-PHOS NEUTRAL) PO SCH ×2 (12:00→20:42)
--- NOTE | 2019-01-18 12:11 | Speech Therapy Daily Note ---
Speech Daily Progress Note Subjective Date Seen by Provider: Jan 18, 2019 Time Seen by Provider: 00:30 Patient was alert and cooperative. Patient was finishing eating breakfast with nurse. Objective Patient participated in PO trials of banana to trial advancement of diet. Patient tolerated mashed and small bites of banana with no overt s/s aspiration. No oral residue or anterior spillage observed. Patient is interested in trialing other Dysphagia II consistencies. Assessment Assessment Current Status: Good Progress Treatment Plan Continue Plan of Care Communication Comprehension: 6 Expression: 6 Social Cognition Social Interaction: 6 Problem Solvin Memory: 4 Speech Short Term Goals Short Term Goals Short Term Goals 1) The patient will complete memory tasks related to his daily needs at 90% or greater with minimal cues. 2) The patient will complete problem solving tasks related to his daily needs at 90% or greater with minimal cues. 3) The patient will complete safety awareness tasks related to his daily needs at 90% or greater with minimal cues. 4) The patient will tolerate least restrictive diet without s/s of aspiration with 90% or greater. 5) The patient will demonstrate compliance of utilization of compensatory strategies as trained at 90% or greater with minimal cues. Speech [facility] Goals Laborer Heading Goals The patient will improve his cognitive status for a safe return home. The patient will maintain adequate nutrition/hydration via safe effective swallow function and/or PEG tube. Speech-Plan Patient/Family Goals Patient/Family Goals: Advancement of diet Treatment Plan Speech Therapy Treatment Plan: Continue Plan of Care Patient is making good progress towards goals and is tolerating small bites of m echanical soft solids. Continued trials of mechanical soft is recommended. Treatment Duration: Jan 26, 2019 Frequency: 5 times per week Estimated Hrs Per Day: .5 hour per day Rehab Potential: Guarded Barriers to Learning: cogntive-communication Pt/Family Agrees to Plan: Yes Safety Risks/Education Teaching Recipient: Patient Teaching Methods: Discussion Response to Teaching: Verbalize Understanding Education Topics Provided: swallow strategies (small bites, alternating liquid/solids) Time Speech Therapy Time In: 08:00 Speech Therapy Time Out: 08:30 Total Billed Time: 30 Billed Treatment Time LUIS DANIEL Dumont Judi MARIO THOMASCarmina JOHNSTON Jan 18, 2019 12:11
--- NOTE | 2019-01-18 12:22 | Pulmonary Progress Note ---
Subjective Time Seen by a Provider: 12:22 Subjective/Events-last exam No complications noted. Sepsis Event Evaluation Height, Weight, BMI Height: 5'3.00" Weight: 147lbs. 8.0oz. 66.813808ek; 26.1 BMI Method:Stated Exam Exam Vital Signs Date Time Temp Pulse Resp B/P (MAP) Pulse Ox O2 Delivery O2 Flow Rate FiO2 01/18/19 11:06 99 Trach Collar 28 01/18/19 07:51 95 Trach Collar 28 01/18/19 05:33 97.3 68 16 124/76 (92) 99 Trach Collar 6.00 01/18/19 02:42 96 Trach Collar 6.00 28 01/17/19 21:00 Trach Collar 6.00 28 01/17/19 17:40 97.6 68 18 144/76 (98) 99 Trach Collar 10.00 01/17/19 14:48 97 Trach Collar 6.00 28 I & O 01/18/19 07:00 Intake Total 1940 ml Output Total 2300 ml Balance -360 ml Height & Weight Height: 5'3.00" Weight: 147lbs. 8.0oz. 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 Nesbitt at [facility] Tracheostomy -add diflucan -SVNS with duoneb and mucomyst -Will plan on changing trach out to size 6.0 cuffless tube Decubitus ulcer stage 4 -wound care Rib plating on the right Closed right scapular fracture Diabetes mellitus why-bn-qohnycl requiring insulin PEG tube status Anemia -Monitor Hypertension Neurogenic bladder with Zamarripa catheter Decubitus ulcer in need of debridement -Wound vac -Surgery following Illicit drug use ALONDRA HUSSEIN DO Jan 18, 2019 12:22
[2019-01-18] MEDS ORDERED: FLUCONAZOLE 200 MG/100 ML 100 ML IV NR (12:30)
--- NOTE | 2019-01-18 14:19 | Physical Therapy Daily Note ---
PT Daily Note-Current Mental Status Patient Orientation: Normal For Age Attachments: Oxygen, Zamarripa Catheter Transfers Therapy Code Descriptions/Definitions Functional [place] Measure: 0=Not Assessed/NA 4=Minimal Assistance 1=Total Assistance 5=Supervision or Setup 2=Maximal Assistance 6=Modified [place] 3=Moderate Assistance 7=Complete [place] Therapy Quality Codes: 6 Independent with activity with or without an assistive device 5 Patient requires set up or clean up by helper. Patient completes activity by themselves 4 Supervision or touching assist (CGA). [place] provide cues , steadying assist 3 The helper provides less than half the effort to complete the activity 2 The helper provides more than half the effort to complete the activity 1 Dependent. The helper does all the effort to complete an activity 7 Patient refused to complete or attempt activity 9 The patient did not perform the activity before the current illness or injury 88 Not attempted due to Medical conditions or safety concerns Transfers (B, C, W/C) (FIM): 1 Scootin Rollin Roll Left to Right (QC): 1 dependent assist x 2 with all mobility with rolling and repositioning in bed for comfort and to cleanse and change patient due to BM Exercises Supine Ex: Ankle pumps, Heel Slides, Hip abd/add Supine Reps: 10 (ROM during bed mobility activity with OT to cleanse and change patient) Assessment Partial co treat with OT with PT performing rolling and repositioning while OT address toileting needs to cleanse patient. PROM during this activity performed bilateral LE. Patient in sidelying left with physician present to perform bed side procedure. PT Short Term Goals Short Term Goals Time Frame: Jan 17, 2019 Transfers (B,C,W/C) (FIM): 1 Wheelchair (FIM): 4 (if he can get a power chair) Wheelchair Distance: 800' Wheelchair Level of Assist: 4 PT Correction Goals Nib Inspector Goals PT Nib Inspector Goals Time Frame: Jan 31, 2019 Transfers (B,C,W/C) (FIM): 1 Sit to Lying (QC): 1 Lying-Sitting on Side/Bed(QC): 1 Rollin Roll Left to Right (QC): 2 Chair/Fnt-mr-Scddf Xfer(QC): 1 Car Transfer (QC): 1 Wheelchair (FIM): 5 (if he can get a power chair) Distance: 150' Wheelchair Level of Assist: 5 Wheel 50 feet with 2 turns (QC: 4 PT Plan Treatment/Plan Treatment Plan: Continue Plan of Care Treatment Plan: Bed Mobility, Concurrent Therapy, Education, Functional Activity Estella, Functional Strength, Group Therapy, Safety, Therapeutic Exercis e, Transfers Treatment Duration: Jan 31, 2019 Frequency: At least 5 of 7 days/Wk (IRF) Estimated Hrs Per Day: 1.5 hours per day Patient and/or Family Agrees t: Yes Time/GCodes Time In: 1355 Time Out: 1410 Total Billed Treatment Time: 15 Total Billed Treatment 1 visit FA 15 min CHAD HERNANDEZ PT Jan 18, 2019 14:19
--- NOTE | 2019-01-18 14:20 | NUR ---
Dr. James,two medical students and this RN here in patient's room at this time. Dr. James and students turn patient to assess coccyx decub ulcer. Dr. James states "There are some areas that are in need of debridement. I can do it at bedside." patient states "Okay". Dr. James orders this RN to get a scalpel and Betadine swabs. This RN returns with swabs. Dr. James states to patient. "let me know if at any time you feel any pain." patient states "Okay. I haven't been able to feel anything down there since the accident." Debrided wound and then packed wound with iodoform and states to this RN to keep current wound dressing orders. Will carry out order and continue to monitor.
[2019-01-18] MEDS: ENOXAPARIN 40 MG/0.4 ML (LOVENOX) SYR SC SCH (14:37)
[2019-01-18 15:19] VITALS: BP 165/84
--- NOTE | 2019-01-18 15:27 | Occupational Ther Daily Note ---
OT Current Status-Daily Note Subjective No pain reported. Appearance Pt. had just transferred to wheelchair when OT came in with assist of other therapist and nursing. Mental Status/Objective Patient Orientation: Person, Place Therapy Code Descriptions/Definitions Functional [place] Measure: 0=Not Assessed/NA 4=Minimal Assistance 1=Total Assistance 5=Supervision or Setup 2=Maximal Assistance 6=Modified [place] 3=Moderate Assistance 7=Complete [place] Attachments: Oxygen ADL-Treatment Therapy Code Descriptions/Definitions Functional [place] Measure: 0=Not Assessed/NA 4=Minimal Assistance 1=Total Assistance 5=Supervision or Setup 2=Maximal Assistance 6=Modified [place] 3=Moderate Assistance 7=Complete [place] Therapy Quality Codes: 6 Independent with activity with or without an assistive device 5 Patient requires set up or clean up by helper. Patient completes activity by themselves 4 Supervision or touching assist (CGA). [place] provide cues , steadying assist 3 The helper provides less than half the effort to complete the activity 2 The helper provides more than half the effort to complete the activity 1 Dependent. The helper does all the effort to complete an activity 7 Patient refused to complete or attempt activity 9 The patient did not perform the activity before the current illness or injury 88 Not attempted due to Medical conditions or safety concerns OT/[id number]-ga-[id number] with pt. due to pt's need for skilled assistance x 2. Pt. up in chair and OT assisted with hand toggle and tricep activation to drive chair while PT focused on pt's pathway and ability to drive where he needed to. Worked on driving in straight line, turning, and getting onto elevator. Pt. fatigues quickly. Agrees to go outside for fresh air. OT/PT and pt. went outside in wheelchair and therapy worked on positioning of body, wheelchair, and comfort level. Sat outside approximately 15 minutes and then worked on going back to rehab unit driving chair. When makeshift toggle is between pt's fingers, he is able to drive more stable than when his hand is around toggle. Went to room and completed transfer via jareth lift. Checked pt for incontinence which he did not have, and positioned him on opposite side of where he was originally. All needs met. Education OT Patient Education: Correct positioning, Modified ADL techniques, Progress toward Goal/Update tx plan, Purpose of tx/functional activities, Reviewed precautions, Rehab process, Transfer techniques, W/C management Teaching Recipient: Patient Teaching Methods: Demonstration, Discussion Response to Teaching: Verbalize Understanding, Return Demonstration OT Short Term Goals Short Term Goals Time Frame: Jan 24, 2019 Grooming(FIM): 2 (with AE) Upper Body Dressing(FIM): 2 Transfers (B,C,W/C) (FIM): 1 Additional Short Term Goals: 3-ImproveStrength/Estella 1=Demonstrate adherence to instructed precautions during ADL tasks. 2=Patient will verbalize/demonstrate understanding of assistive dev ices/modifications for ADL. 3=Patient will improve strength/tolerance for activity to enable patient to perform ADL's. OT Cook Room Supervisor Goals [facility] Goals Time Frame: Feb 14, 2019 Eating (FIM): 3 Eating (QC): 3 Groomin Oral Hygiene (QC): 3 Upper Body Dressing(FIM): 3 Additional Goals: 3-ImproveStrength/Estella 1=Demonstrate adherence to instructed precautions during ADL tasks. 2=Patient will verbalize/demonstrate understanding of assistive devices/modifications for ADL. 3=Patient will improve strength/tolerance for activity to enable patient to perform ADL's. OT Education/Plan Problem List/Assessment Assessment: Decreased Activ Tolerance, Decreased Safety Aware, Decreased UE Strength, Dependent Transfers, Impaired Bed Mobility, Impaired Coordination, Impaired Funct Balance, Impaired I ADL's, Impaired Self-Care Skills, Restricted Funct UE ROM Discharge Recommendations Plan/Recommendations: Continue POC Therapy D/C Recommendations: 24 hr Supervision Treatment Plan/Plan of Care Treatment,Training & Education: Yes Patient would benefit from OT for education, treatment and training to promote independence in ADL's, mobility, safety and/or upper extremity function for ADL's. Plan of Care: ADL Retraining, Caregiver Training, Functional Mobility, Group Exercise/Act as Ind, UE Funct Exercise/Act, UE Neuromus Re-Ed/Coord, W/C Management Training Treatment Duration: Feb 14, 2019 Frequency: At least 5 of 7 days/Wk (IRF) Estimated Hrs Per Day: 1.5 hours per day Agreement: Yes Rehab Potential: Guarded Time/GCodes Start Time: 09:15 Stop Time: 10:00 Total Time Billed (hr/min): 45 Billed Treatment Time 1, FA x 3 SHEYLA PETERSON OT Jan 18, 2019 15:27
--- NOTE | 2019-01-18 15:33 | Occupational Ther Daily Note ---
OT Current Status-Daily Note Subjective No pain reported. Appearance Pt. in bed. Agrees to work with therapy. Mental Status/Objective Patient Orientation: Person, Place Therapy Code Descriptions/Definitions Functional [place] Measure: 0=Not Assessed/NA 4=Minimal Assistance 1=Total Assistance 5=Supervision or Setup 2=Maximal Assistance 6=Modified [place] 3=Moderate Assistance 7=Complete [place] ADL-Treatment Therapy Code Descriptions/Definitions Functional [place] Measure: 0=Not Assessed/NA 4=Minimal Assistance 1=Total Assistance 5=Supervision or Setup 2=Maximal Assistance 6=Modified [place] 3=Moderate Assistance 7=Complete [place] Therapy Quality Codes: 6 Independent with activity with or without an assistive device 5 Patient requires set up or clean up by helper. Patient completes activity by themselves 4 Supervision or touching assist (CGA). [place] provide cues , steadying assist 3 The helper provides less than half the effort to complete the activity 2 The helper provides more than half the effort to complete the activity 1 Dependent. The helper does all the effort to complete an activity 7 Patient refused to complete or attempt activity 9 The patient did not perform the activity before the current illness or injury 88 Not attempted due to Medical conditions or safety concerns Eating (FIM): 1 Eating (QC): 1 Lower Body Dressing (FIM): 1 Lower Body Dressing (QC): 1 On/Off Footwear (QC): 1 Toileting (FIM): 1 Toileting Hygiene (QC): 1 Transfers (B, C, W/C) (FIM): 1 Pt. in bed. OT positioned pt. onto back with max x 2 to initiate self feeding with universal cuff. Pt. positioned in bed for optimal success. OT propped right UE onto pillows and donned cuff on right hand. Spoon placed and OT put chocolate ice cream onto spoon. Pt. has some bicep flexion to bring toward mouth, but overall requires assist to position his elbow and his hand, and to assist into mouth. Once it is in mouth, pt. requires assist to extend arm away from mouth. Several trials took place. At this point, PT came into room for partial co-treat due to surgeon coming to assess sacral wound. PT focused on transfer and positioning while OT assessed incontinent and LE clothing removal. Pt. had been incontinent of bowel, and required dependent assist x 2 for david care. Pt. positioned after this so that surgeon and nursing could assess wound. All needs met in room. Education OT Patient Education: Correct positioning, Modified ADL techniques, Progress toward Goal/Update tx plan, Purpose of tx/functional activities, Reviewed precautions, Rehab process, Transfer techniques Teaching Recipient: Patient Teaching Methods: Demonstration, Discussion Response to Teaching: Verbalize Understanding, Unable to Return Demonstration OT Short Term Goals Short Term Goals Time Frame: Jan 24, 2019 Grooming(FIM): 2 (with AE) Upper Body Dressing(FIM): 2 Transfers (B,C,W/C) (FIM): 1 Additional Short Term Goals: 3-ImproveStrength/Estella 1=Demonstrate adherence to instructed precautions during ADL tasks. 2=Patient will verbalize/demonstrate understanding of assistive de vices/modifications for ADL. 3=Patient will improve strength/tolerance for activity to enable patient to perform ADL's. OT Associate Store Manager Goals [facility] Goals Time Frame: Feb 14, 2019 Eating (FIM): 3 Eating (QC): 3 Groomin Oral Hygiene (QC): 3 Upper Body Dressing(FIM): 3 Additional Goals: 3-ImproveStrength/Estella 1=Demonstrate adherence to instructed precautions during ADL tasks. 2=Patient will verbalize/demonstrate understanding of assistive devices/modifica tions for ADL. 3=Patient will improve strength/tolerance for activity to enable patient to perform ADL's. OT Education/Plan Problem List/Assessment Assessment: Decreased Activ Tolerance, Decreased UE Strength, Dependent Transfers, Impaired Bed Mobility, Impaired Coordination, Impaired Funct Balance, Impaired I ADL's, Impaired Self-Care Skills, Restricted Funct UE ROM Discharge Recommendations Plan/Recommendations: Continue POC Therapy D/C Recommendations: 24 hr Supervision Treatment Plan/Plan of Care Treatment,Training & Education: Yes Patient would benefit from OT for education, treatment and training to promote independence in ADL's, mobility, safety and/or upper extremity function for ADL's. Plan of Care: ADL Retraining, Caregiver Training, Functional Mobility, Group Exercise/Act as Ind, UE Funct Exercise/Act, UE Neuromus Re-Ed/Coord, W/C Management Training Treatment Duration: Feb 14, 2019 Frequency: At least 5 of 7 days/Wk (IRF) Estimated Hrs Per Day: 1.5 hours per day Agreement: Yes Rehab Potential: Guarded Time/GCodes Start Time: 13:35 Stop Time: 14:10 Total Time Billed (hr/min): 35 Billed Treatment Time 1, ADL x 2 [id number]- OT [id number]- co-treat with PT. Please see above note for designated roles. SHEYLA PETERSON OT Jan 18, 2019 15:33
--- NOTE | 2019-01-18 17:43 | Progress Note - Surgery ---
Subjective Date Seen by a Provider: Jan 18, 2019 Time Seen by a Provider: 13:09 Subjective/Events-last exam Patient doing okay. No new complaints. Tolerating diet. + bm and flatus. denies n/v fever sweats chills shortness of breath or chest pain. Objective Exam Vital Signs Date Time Temp Pulse Resp B/P (MAP) Pulse Ox O2 Delivery O2 Flow Rate FiO2 01/18/19 15:19 97.6 67 16 165/84 (111) 98 Trach Collar 10.00 01/18/19 15:19 98 Trach Collar 28 01/18/19 11:06 99 Trach Collar 28 01/18/19 08:00 Trach Collar 6.00 28 01/18/19 07:51 95 Trach Collar 28 01/18/19 05:33 97.3 68 16 124/76 (92) 99 Trach Collar 6.00 01/18/19 02:42 96 Trach Collar 6.00 28 01/17/19 21:00 Trach Collar 6.00 28 01/17/19 17:40 97.6 68 18 144/76 (98) 99 Trach Collar 10.00 I & O 01/18/19 07:00 Intake Total 1940 ml Output Total 2300 ml Balance -360 ml Capillary Refill : Less Than 3 SecondsLess Than 3 Seconds General Appearance: No Apparent Distress, WD/WN, Chronically ill HEENT: PERRL/EOMI, Other (trach) Neck: Non Tender, Supple Respiratory: No Accessory Muscle Use, No Respiratory Distress, Decreased Breath Sounds Cardiovascular: Regular Rate, Rhythm Gastrointestinal: normal bowel sounds, non tender, soft, distended (minimal distention) Extremity: Normal Capillary Refill, Non Tender Neurologic/Psychiatric: Alert, Oriented x3 Skin: Normal Color, Warm/Dry, Other (decubitus ulcer slight eschar upper portion of wound) Lymphatic: No Adenopathy Results Lab Laboratory Tests 01/17/19 20:53: Glucometer 202H 01/18/19 04:56: Glucometer 80 01/18/19 10:44: Glucometer 174H 01/18/19 15:18: Glucometer 274H Microbiology 01/10/19 Blood Culture - Final, Complete No growth 01/10/19 Gram Stain - Final, Complete 01/10/19 Sputum Culture - Final, Complete Usual upper respiratory aaron YEAST Assessment/Plan Assessment/Plan Assessment/Plan 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 abdominal distention improved and having function Decubitus ulcer coccyx will debride at bedside ileus-resolved Patient with bowel movements and passing flatus diet as tolerates Patient with decubitus ulcer will continue to monitor needs debridement continue to monitor packed with iodoform Gauze daily and when necessary Will follow. PROCEDURE: Prepped in sterile fashion, sharp debridement with #10 blade scalpel to remove eschar of wound total measurement 3x4cm from subcutaneous layer. down to healthy bleeding tissue. wound packed with iodoform gauze. patient tolerated well. Clinical Quality Measures DVT/VTE Risk/Contraindication: Risk Factor Score Per Nursin RFS Level Per Nursing on Admit: 4+=Very High NIKOLAY SANFORD DO Jan 18, 2019 17:43
[2019-01-18] MEDS: MELATONIN 3 MG TABLET PO SCH (20:43)
[2019-01-18] MEDS: MONTELUKAST 10 MG (SINGULAIR) TAB PO SCH (20:44)
[2019-01-18] MEDS: QUEtiapine 25 MG (SEROquel) TAB IMMEDIATE RELEASE PO SCH (20:44)
[2019-01-18] MEDS: ALPRAZolam 0.5 MG (XANAX) TAB PO PRN (20:47)
[2019-01-19] MEDS: METOCLOPRAMIDE INJ 10 MG/2 ML (REGLAN) IVP SCH ×4 (00:24→18:56)
[2019-01-19] MEDS: CATHETER FLUSH 10 ML SYR IV PRN (03:33)
[2019-01-19] MEDS: PIPERACILLIN/TAZO 4.5 GM/NS 100 ML IV SCH ×6 (03:33→19:21)
[2019-01-19] MEDS: RT-ALBUTEROL/IPRATROPIUM 3 ML (DUONEB) VIAL INH SCH ×6 (03:37→22:26)
[2019-01-19] MEDS: aCETylcysteine 20% (MUCOMYST) 30ML SOLN VIAL INH SCH ×6 (03:37→22:26)
[2019-01-19] MEDS: guaiFENesin SYRUP 100 MG/5 ML 10 ML (ROBITUSSIN SF) PEG SCH ×3 (05:36→20:40)
[2019-01-19] MEDS: APAP 325 MG/10.15 ML LIQ (TYLENOL) UDC PO PRN (05:36)
[2019-01-19 05:38] VITALS: BP 118/71
[2019-01-19] MEDS: KCL 10 MEQ TAB (MICRO K) PO SCH (05:38)
[2019-01-19] MEDS: inSUlin ASPART (NovoLOG) 1 UNIT/0.01 ML (CHARGE PER UNIT) SC SCH ×4 (05:46→20:39)
--- NOTE | 2019-01-19 08:19 | NUR ---
duoneb and mucomyst svn breathing tx's due to RT coming past patients room at 0706 and OT was feeding him, by the time RT was able to get back to patient it was after 0800 so RT non-administered meds
--- NOTE | 2019-01-19 08:47 | PM&R Progress Note ---
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 He was unable to maintain his airway. He was intubated at the scene. He was assessed in the ER by Dr. Vaughan trauma surgeon found to have significant hypotension requiring aggressive IV fluids and pressor therapy but then was assessed that he was likely an spinal cord shock and multiple right rib fractures with flail chest requiring transfer to [facility] trauma surgery which resulted in multiple procedures including tracheostomy due to failing weaning protocol on ventilator, PEG tube placement, spine MRIs confirming C3-C7 spinal cord injury complete with plating of ribs 510 on the right side and right sided chest tube. He was found to have drug screen positive for marijuana and methamphetamine. Neurosurgery was consulted perform decompressive laminectomy on C3-C7 with C4-C5 autograft bone screws and rods. He was diagnosed with Haemophilus influenza while intubated and that treatment was completed. He did have rhabdomyolysis from his injuries requiring aggressive IV fluids but they all resolved. Hyperglycemia was diagnosed and he was started on insulin and elevated liver enzymes have improved since admission and hepatitis viral panel along with HIV were negative. He did receive 2 units of packed red blood cells hospitalized. Currently patient is requiring wound care consult by Dr. Craven and general surgery consultation by Dr. García because additional debridement of the sacral decubitus ulcer will be required. He will remain with the c-collar in place until seen Dr. Nesbitt on 01/30/19. Hemoglobin today is 10.1. Dr. Arcos's been consulted for pulmonary issues which she is having increased secretions today in addition urology will be consulted for Zamarripa catheter maintenance for neurogenic bladder. I did speak with Dr. Arcos who will panculture the patient and change breathing treatments to clear secretions. Patient remains total care with quadriplegia. Subjective/Events-last exam Reached out to Dr. Nesbitt' office and we can try to move up the follow-up appointment earlier it and obtain imaging scans to see if the brace can be taken off Dr. James performed a minor debridement at the bedside at 2:[address] Arcos started Diflucan for yeast on culture Check meds and labs Conferred with RN Reviewed therapy notes Patient appears to be coming up on stability which is great news Feels pretty motivated otherwise Zamarripa catheter maintained to help heal the decubitus ulcer Review of Systems Neurological: Weakness, Numbness, Incoordination Objective Exam Vital Signs Vital Signs Date Time Temp Pulse Resp B/P (MAP) Pulse Ox O2 Delivery O2 Flow Rate FiO2 01/19/19 15:27 94 Trach Collar 6.00 28 01/19/19 05:38 97.5 74 18 118/71 (87) Capillary Refill : Less Than 3 SecondsLess Than 3 Seconds General Appearance: No Apparent Distress, WD/WN, Chronically ill, Thin HEENT: PERRL/EOMI, Normal ENT Inspection, Pharynx Normal, Moist Mucous M embranes Neck: Other (in collar) Respiratory: Chest Non Tender, No Accessory Muscle Use, No Respiratory Distress, Crackles, Other (trach in place) Cardiovascular: Regular Rate, Rhythm Gastrointestinal: Normal Bowel Sounds, No Organomegaly, No Pulsatile Mass, Non Tender, Soft, Other (PEG in place) Back: Normal Inspection, No CVA Tenderness, No Vertebral Tenderness Extremity: Normal Capillary Refill Neurologic/Psychiatric: Alert, Oriented x3, refrigeration system installer II-XII Norm as Tested, Depressed Affect, Motor Weakness (bilateral lower extremities and deficits at waist) Skin: Normal Color, Warm/Dry Lymphatic: No Adenopathy Results/Procedures Lab Patient resulted labs reviewed. FIM Transfers Therapy Code Descriptions/Definitions Functional [place] Measure: 0=Not Assessed/NA 4=Minimal Assistance 1=Total Assistance 5=Supervision or Setup 2=Maximal Assistance 6=Modified [place] 3=Moderate Assistance 7=Complete [place] Therapy Quality Codes: 6 Independent with activity with or without an assistive device 5 Patient requires set up or clean up by helper. Patient completes activity by themselves 4 Supervision or touching assist (CGA). [place] provide cues , steadying assist 3 The helper provides less than half the effort to complete the activity 2 The helper provides more than half the effort to complete the activity 1 Dependent. The helper does all the effort to complete an activity 7 Patient refused to complete or attempt activity 9 The patient did not perform the activity before the current illness or injury 88 Not attempted due to Medical conditions or safety concerns Transfers (B, C, W/C) (FIM): 1 Scootin Rollin Roll Left to Right (QC): 1 Supine to/from Sit: 1 Sit to/from Stand: 1 Sit to Lying (QC): 1 Chair/[id number]-ws-Xfetl Xfer(QC): 1 Bed to/from Chair: 1 Car Transfer (QC): 1 Gait Training Does the Patient Walk?: No and Walking Goal NOT indicated Wheelchair Training Does the Pt Use a Wheelchair?: Yes Wheelchair (FIM): 4 Wheelchair Distance: 3=150 ft (150,100) Distance: 800' Wheelchair Level of Assist: 4 Type of Wheelchair: Motorized Mental Status/Objective Comprehension: 6 Expression: 6 Social Interaction: 6 Problem Solvin Memory: 4 ADL-Treatment Feedin Eating (QC): 1 Groomin (Dependent to brush teeth and hair.) Oral Hygiene (QC): 1 Bathin Shower/Bathe Self (QC): 1 Upper Extremity Dressin Upper Body Dressing (QC): 1 Lower Extremity Dressin Lower Body Dressing (QC): 1 On/Off Footwear (QC): 1 Toiletin Toileting Hygiene (QC): 1 Toilet/Commode Transfer: 1 Toilet Transfer (QC): 1 Assessment/Plan Assessment and Plan Assess & Plan/Chief Complaint Assessment: 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 Nesbitt at [facility] 12/07/18 Rib plating on the right Closed right scapular fracture Diabetes mellitus [id number] requiring insulin PEG tube status Trach dependent Anemia Hypertension DVT prophylaxis with Lovenox Neurogenic bladder requiring Zamarripa catheter and urology recommends maintained to help heal decubitus ulcer in the meantime Decubitus ulcer s/p debridement but appears to need additional debridement tomorrow OJ Psychosis resolved with Seroquel Depression placed on Celexa Ileus-resolved Plan: Broad-spectrum antibiotics for decubitus ulcer infection Debridement per Dr. García and Dr. Craven and it appears to need additional debridement Wound VAC after debridement Maintain on Lovenox Consult urology is appreciated Rehabilitation to focus on transfers and lessen burden on caretakers assisted placement? Remove neck brace while sleeping to aid in alleviation of discomfort causing behaviors and will await [facility] recs for brace removal at his request Seroquel at night Celexa in the morning Advanced diet Supplement potassium (1) Post-traumatic quadriplegia (2) Diabetes mellitus (3) Anemia (4) Anxiety (5) Chronic pain (6) Neurogenic bladder (7) HLD (hyperlipidemia) (8) Tracheostomy dependent (9) DVT prophylaxis (10) Closed right scapular fracture (11) Right rib fracture (12) Right pulmonary contusion (13) Decubitus ulcer of coccygeal region, stage 4 (14) Shock due to spinal cord injury (15) Paresthesias (16) Illicit drug use (17) Cellulitis (18) Hypertension (19) Type 2 diabetes mellitus with hyperglycemia (20) PEG (percutaneous endoscopic gastrostomy) status MARGUERITE GAN DO Jan 19, 2019 08:47
--- NOTE | 2019-01-19 10:00 | NUR ---
LAUNCHING PAD MECHANIC met with patient patient and family to provide overall clarification, as LAUNCHING PAD MECHANIC received an angered call from patient's spouse yesterday regarding discharge barriers. LAUNCHING PAD MECHANIC is remain in constant contact with patient, patient's and or alternative family member as requested by patient's , to provide update on discharge planning. LAUNCHING PAD MECHANIC has had several conversations with patient's spouse, his states her concern with her ability to provide adequate care for [place] upon home discharge; therefore, long-term care placement is being sought. While discussing today, spouse denies statement of inability to provide care, but later admits this as a concern. Patient and spouse both desire for patient to return home. LAUNCHING PAD MECHANIC provided piece by piece discussion in regards to physical, structural accommodations needed to the home, required family training and the need for demonstration of ability to provide necessary care prior to initiating a home plan. Both verbalized understanding. Through the end of the discussion, it appeared that all members present were understanding and satisfied with current plan of pursuing a retirement until mentioned entities were established.
[2019-01-19] MEDS: FLUCONAZOLE 200 MG/100 ML 50 ML, EMPTY IV BAG (PVC) 1 EA IV SCH ×2 (10:25)
[2019-01-19] MEDS: SENNA W/DOCUSATE (SENOKOT S) TABLET PO SCH ×2 (10:26→20:38)
[2019-01-19] MEDS: FAMOTIDINE 20 MG (PEPCID) TABLET PO SCH ×2 (10:26→20:38)
[2019-01-19] MEDS: LORATADINE (CLARITIN) 10 MG TAB PO SCH (10:26)
[2019-01-19] MEDS: POT PHOS/NA PHOS (K-PHOS NEUTRAL) PO SCH ×2 (10:26→20:38)
[2019-01-19] MEDS: MIDODRINE 10 MG (PROAMATINE) TAB PO SCH ×3 (10:26→20:39)
--- NOTE | 2019-01-19 10:45 | Progress Note ---
LESLIE LIGHT,MED STUDENT 01/19/19 1044: Subjective Date Seen by a Provider: Jan 19, 2019 Time Seen by a Provider: 09:51 Subjective/Events-last exam Pt is feeling well. No new complaints. He is having bowel movements and able to urinate. Pt seen under supervision of Dr. James Objective Exam Last Set of Vital Signs Vital Signs Date Time Temp Pulse Resp B/P (MAP) Pulse Ox O2 Delivery O2 Flow Rate FiO2 01/19/19 05:38 97.5 74 18 118/71 (87) 96 Trach Collar 10.00 01/19/19 03:38 28 Capillary Refill : Less Than 3 SecondsLess Than 3 Seconds I&O Intake and Output 01/19/19 00:00 Intake Total 1560 ml Output Total 2325 ml Balance -765 ml Intake Oral 1240 ml IV Total 320 ml Output Urine Total 2325 ml # Bowel Movements 2 General: Alert Heart: Regular Rate Results Lab Laboratory Tests 01/18/19 10:44: Glucometer 174H 01/18/19 15:18: Glucometer 274H 01/18/19 20:06: Glucometer 237H 01/19/19 05:28: Glucometer 108 Microbiology 01/10/19 Blood Culture - Final, Complete No growth 01/10/19 Gram Stain - Final, Complete 01/10/19 Sputum Culture - Final, Complete Usual upper respiratory aaron YEAST Assessment/Plan Assessment/Plan Assess & Plan/Chief Complaint 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 abdominal distention improving, pt having bowel movements and passing flatus, diet as tolerates Decubitus ulcer coccyx, will recheck wound tomorrow Clinical Quality Measures DVT/VTE Risk/Contraindication: Risk Factor Score Per Nursin RFS Level Per Nursing on Admit: 4+=Very High NIKOLAY JAMES DO 01/19/19 1530: Subjective Subjective/Events-last exam passing flatus and bm tolerating diet no new complaints wound care to decub no family at bedside Objective Exam General: Oriented X3 HEENT: Atraumatic, PERRLA, Other (in collar, trach) Neck: Supple Lungs: Normal Air Movement Abdomen: Soft (minimal distention no pain) Extremities: No Tenderness/Swelling Skin: Other (decub ulcer,) Neuro: Normal Speech, Other (paraplegic) Psych/Mental Status: Mental Status NL, Mood NL Assessment/Plan Assessment/Plan Assess & Plan/Chief Complaint 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 abdominal distention improved and having function Decubitus ulcer coccyx wound care ileus-resolved will follow Supervisory-Addendum Brief Verification & Attestation Time: Verification & Attestat.: 15:30 Participated in pt care: history, MDM, physical Personally performed: exam, history, MDM, supervision of care Care discussed with: Medical Student Procedures: n/a Results interpretation: Verified all documentation Verification and Attestation of Medical Student E/M Service A medical student performed and documented this service in my presence. I reviewed and verified all information documented by the medical student and made modifications to such information, when appropriate. I personally performed the physical exam and medical decision making. Nikolay James, Jan 19, 2019,15:30 LESLIE LIGHT,MED STUDENT Jan 19, 2019 10:44 NIKOLAY JAMES DO Jan 19, 2019 15:30
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
--- NOTE | 2019-01-19 13:04 | Occupational Ther Daily Note ---
OT Current Status-Daily Note Subjective Pt in bed, agrees to therapy. Mental Status/Objective Therapy Code Descriptions/Definitions Functional [place] Measure: 0=Not Assessed/NA 4=Minimal Assistance 1=Total Assistance 5=Supervision or Setup 2=Maximal Assistance 6=Modified [place] 3=Moderate Assistance 7=Complete [place] ADL-Treatment Co-treat with PT due to need for skilled therapist to perform tasks. OT focusing on ADL skills and UE management and positioning for use of joystick in w/c. PT focusing on mobility, rolling, LE management and positioning. LE dressing completed in bed. Pt had small BM and hygiene was completed with total assist. Dependent to don brief and pants. Pt rolled left and right with total assist for hygiene, dressing, and placement of sling. Transfer to electric w/c with total assist using jareth lift. Changed shirt with total assist to complete task. Pt completed w/c mobility with joystick using right UE, but had difficulty secondary to unable to maintain positioning of UE. Pt able to steer and turn w/c to enter elevator. Pt fatigues quickly and therapist assisted with w/c mobility back to room. Transfer back to bed with total assist using jareth lift. OT provides gentle PROM to bilateral UE in all planes for comfort and positioning. Then assisted pt with AAROM for bicep and tricep strengthening. Pt positioned in bed with needs met after session. Therapy Code Descriptions/Definitions Functional [place] Measure: 0=Not Assessed/NA 4=Minimal Assistance 1=Total Assistance 5=Supervision or Setup 2=Maximal Assistance 6=Modified [place] 3=Moderate Assistance 7=Complete [place] Therapy Quality Codes: 6 Independent with activity with or without an assistive device 5 Patient requires set up or clean up by helper. Patient completes activity by themselves 4 Supervision or touching assist (CGA). [place] provide cues , steadying assist 3 The helper provides less than half the effort to complete the activity 2 The helper provides more than half the effort to complete the activity 1 Dependent. The helper does all the effort to complete an activity 7 Patient refused to complete or attempt activity 9 The patient did not perform the activity before the current illness or injury 88 Not attempted due to Medical conditions or safety concerns Upper Body (FIM): 1 Upper Body Dressing (QC): 1 Lower Body Dressing (FIM): 1 Lower Body Dressing (QC): 1 Transfers (B, C, W/C) (FIM): 1 OT Short Term Goals Short Term Goals Time Frame: Jan 24, 2019 Grooming(FIM): 2 (with AE) Upper Body Dressing(FIM): 2 Transfers (B,C,W/C) (FIM): 1 Additional Short Term Goals: 3-ImproveStrength/Estella 1=Demonstrate adherence to instructed precautions during ADL tasks. 2=Patient will verbalize/demonstrate understanding of assistive devices/ modifications for ADL. 3=Patient will improve strength/tolerance for activity to enable patient to perform ADL's. OT Cafe Manager Goals Cafe Manager Goals Time Frame: Feb 14, 2019 Eating (FIM): 3 Eating (QC): 3 Groomin Oral Hygiene (QC): 3 Upper Body Dressing(FIM): 3 Additional Goals: 3-ImproveStrength/Estella 1=Demonstrate adherence to instructed precautions during ADL tasks. 2=Patient will verbalize/demonstrate understanding of assistive devices/modifications for ADL. 3=Patient will improve strength/tolerance for activity to enable patient to perform ADL's. OT Education/Plan Discharge Recommendations Plan/Recommendations: Continue POC Treatment Plan/Plan of Care Patient would benefit from OT for education, treatment and training to promote independence in ADL's, mobility, safety and/or upper extremity function for ADL's. Plan of Care: ADL Retraining, Caregiver Training, Functional Mobility, Group Exercise/Act as Ind, UE Funct Exercise/Act, UE Neuromus Re-Ed/Coord, W/C Management Training Treatment Duration: Feb 14, 2019 Frequency: At least 5 of 7 days/Wk (IRF) Estimated Hrs Per Day: 1.5 hours per day Agreement: Yes Rehab Potential: Guarded Time/GCodes Start Time: 09:00 Stop Time: 10:15 Total Time Billed (hr/min): 75 Billed Treatment Time 1, visit, ADLx2(25minutes), FAx2(35minutes), EX(15minutes) REAGAN DILLARD OT Jan 19, 2019 13:04
--- NOTE | 2019-01-19 13:16 | Physical Therapy Daily Note ---
PT Daily Note-Current Subjective Patient in bed pre tx, agrees to PT, has no complaints of pain at rest. Will be co-treating with OT due to poor patient mobility, strength, endurance, sitting balance, the need to coordinate UE and LE during activity. Patient has had a small BM and needs cleaned. Appearance Patient in bed post tx with nurse call, phone, tray, all needs met, laying on left side with pillow support. Mental Status Patient Orientation: Person, Place, Situation cervical collar Transfers Therapy Code Descriptions/Definitions Functional [place] Measure: 0=Not Assessed/NA 4=Minimal Assistance 1=Total Assistance 5=Supervision or Setup 2=Maximal Assistance 6=Modified [place] 3=Moderate Assistance 7=Complete [place] Therapy Quality Codes: 6 Independent with activity with or without an assistive device 5 Patient requires set up or clean up by helper. Patient completes activity by themselves 4 Supervision or touching assist (CGA). [place] provide cues , steadying assist 3 The helper provides less than half the effort to complete the activity 2 The helper provides more than half the effort to complete the activity 1 Dependent. The helper does all the effort to complete an activity 7 Patient refused to complete or attempt activity 9 The patient did not perform the activity before the current illness or injury 88 Not attempted due to Medical conditions or safety concerns Transfers (B, C, W/C) (FIM): 1 Rollin Bed to/from Chair: 1 Orly to power chair. Patient had to practice rolling several times to each side for cleaning of BM and changing sheets and getting orly sling in/out. He is able to help a bit with his bicep to pull and roll. Wheelchair Training Does the Pt Use a Wheelchair?: Yes Wheelchair (FIM): 4 Distance: 800' Wheelchair Level of Assist: 4 Type of Wheelchair: Motorized Patient needs careful positioning of his right arm for proper driving of wheelchair. He would do better with a goalpost serging machine operator automatic and custom fit arm rest. Treatments cleaning BM, rolling, transfers, wheelchair mobility. PT worked on rolling, transfers, wheelchair mobility, OT worked on BM cleaning, dressing, assist with transfers and UE positioning on wheelchair. Assessment Current Status: Fair Progress improving driving of power chair, improved turning to the right side, still need s min assist PT Short Term Goals Short Term Goals Time Frame: Jan 17, 2019 Transfers (B,C,W/C) (FIM): 1 Wheelchair (FIM): 4 (if he can get a power chair) Wheelchair Distance: 800' Wheelchair Level of Assist: 4 PT Academic Hospitalist Goals Nursing Home Goals PT Academic Hospitalist Goals Time Frame: Jan 31, 2019 Transfers (B,C,W/C) (FIM): 1 Sit to Lying (QC): 1 Lying-Sitting on Side/Bed(QC): 1 Rollin Roll Left to Right (QC): 2 Chair/Ujh-jd-Eodmn Xfer(QC): 1 Car Transfer (QC): 1 Wheelchair (FIM): 5 (if he can get a power chair) Distance: 150' Wheelchair Level of Assist: 5 Wheel 50 feet with 2 turns (QC: 4 PT Plan Problem List Problem List: Activity Tolerance, Functional Strength, Safety, Balance, Transfer, Bed Mobility, ROM Treatment/Plan Treatment Plan: Continue Plan of Care Treatment Plan: Bed Mobility, Concurrent Therapy, Education, Functional Activity Estella, Functional Strength, Group Therapy, Safety, Therapeutic Exercise, Transfers Treatment Duration: Jan 31, 2019 Frequency: At least 5 of 7 days/Wk (IRF) Estimated Hrs Per Day: 1.5 hours per day Patient and/or Family Agrees t: Yes Safety Risks/Education Patient Education: Transfer Techniques, Correct Positioning, Safety Issues Teaching Recipient: Patient Teaching Methods: Demonstration, Discussion Response to Teaching: Reinforcement Needed Time/GCodes Time In: 900 Time Out: 1000 Total Billed Treatment Time: 60 Total Billed Treatment 1 visit [facility] 30' FA 30' co-treated for 60 min ADRIENNE DURAN PT Jan 19, 2019 13:16
--- NOTE | 2019-01-19 13:46 | Physical Therapy Daily Note ---
PT Daily Note-Current Subjective Patient in bed pre tx, agrees to PT, has no complaints of pain at rest. Appearance Patient in bed post tx with nurse call, phone, tray, all needs met. Mental Status Patient Orientation: Normal For Age Attachments: Zamarripa Catheter Transfers Therapy Code Descriptions/Definitions Functional [place] Measure: 0=Not Assessed/NA 4=Minimal Assistance 1=Total Assistance 5=Supervision or Setup 2=Maximal Assistance 6=Modified [place] 3=Moderate Assistance 7=Complete [place] Therapy Quality Codes: 6 Independent with activity with or without an assistive device 5 Patient requires set up or clean up by helper. Patient completes activity by themselves 4 Supervision or touching assist (CGA). [place] provide cues , steadying ass ist 3 The helper provides less than half the effort to complete the activity 2 The helper provides more than half the effort to complete the activity 1 Dependent. The helper does all the effort to complete an activity 7 Patient refused to complete or attempt activity 9 The patient did not perform the activity before the current illness or injury 88 Not attempted due to Medical conditions or safety concerns Exercises BLE stretching/ROM in all planes, patient still maintains normal PROM dorsiflexion. Assessment Current Status: Fair Progress good ROM but seems to have increasing muscle spasms. PT Short Term Goals Short Term Goals Time Frame: Jan 17, 2019 Transfers (B,C,W/C) (FIM): 1 Wheelchair (FIM): 4 (if he can get a power chair) Wheelchair Distance: 800' Wheelchair Level of Assist: 4 PT Long-Term Goals Long-Term Goals PT Long-Term Goals Time Frame: Jan 31, 2019 Transfers (B,C,W/C) (FIM): 1 Sit to Lying (QC): 1 Lying-Sitting on Side/Bed(QC): 1 Rollin Roll Left to Right (QC): 2 Chair/Vhc-mi-Cmbvx Xfer(QC): 1 Car Transfer (QC): 1 Wheelchair (FIM): 5 (if he can get a power chair) Distance: 150' Wheelchair Level of Assist: 5 Wheel 50 feet with 2 turns (QC: 4 PT Plan Problem List Problem List: Activity Tolerance, Functional Strength, Safety, Balance, Transfer, Bed Mobility, ROM Treatment/Plan Treatment Plan: Continue Plan of Care Treatment Plan: Bed Mobility, Concurrent Therapy, Education, Functional Activity Estella, Functional Strength, Group Therapy, Safety, Therapeutic Exercise, Transfers Treatment Duration: Jan 31, 2019 Frequency: At least 5 of 7 days/Wk (IRF) Estimated Hrs Per Day: 1.5 hours per day Patient and/or Family Agrees t: Yes Safety Risks/Education Patient Education: Correct Positioning, Safety Issues Teaching Recipient: Patient Teaching Methods: Demonstration, Discussion Response to Teaching: Reinforcement Needed Time/GCodes Time In: 1325 Time Out: 1340 Total Billed Treatment Time: 15 Total Billed Treatment 1 visit EX 15' ADRIENNE DURAN PT Jan 19, 2019 13:46
--- NOTE | 2019-01-19 14:33 | Speech Therapy Daily Note ---
Speech Daily Progress Note Subjective Date Seen by Provider: Jan 19, 2019 Time Seen by Provider: 00:30 Patient was alert and pleasant. He cooperated during all PO trials. During session, patient required assistance from nursing to move positioning in bed and to change diaper due to stool. Objective Patient tolerated small bites of diced fruit x4 with no overt s/s aspiration. Patient demonstrates ability to mash soft textures with teeth and swallow with no reports of food remaining in his throat. No oral residue observed. Assessment Assessment Current Status: Good Progress Treatment Plan Continue Plan of Care Communication Comprehension: 6 Expression: 6 Social Cognition Social Interaction: 6 Problem Solvin Memory: 4 Speech Short Term Goals Short Term Goals Short Term Goals 1) The patient will complete memory tasks related to his daily needs at 90% or greater with minimal cues. 2) The patient will complete problem solving tasks related to his daily needs at 90% or greater with minimal cues. 3) The patient will complete safety awareness tasks related to his daily needs at 90% or greater with minimal cues. 4) The patient will tolerate least restrictive diet without s/s of aspiration with 90% or greater. 5) The patient will demonstrate compliance of utilization of compensatory strategies as trained at 90% or greater with minimal cues. Speech [facility] Manager Goals Senior Care Goals The patient will improve his cognitive status for a safe return home. The patient will maintain adequate nutrition/hydration via safe effective swallow function and/or PEG tube. Speech-Plan Patient/Family Goals Patient/Family Goals: Advance diet Treatment Plan Speech Therapy Treatment Plan: Continue Plan of Care Patient is making good progress towards goals. Patient hopes to advance diet and is currently tolerating small bites of mechanical soft textures Treatment Duration: Jan 26, 2019 Frequency: 5 times per week Estimated Hrs Per Day: .5 hour per day Rehab Potential: Guarded Barriers to Learning: dysphagia Pt/Family Agrees to Plan: Yes Safety Risks/Education Teaching Recipient: Patient Teaching Methods: Discussion Response to Teaching: Verbalize Understanding Education Topics Provided: diet advancement and safe swallow strategies (small bites, alternating bites/sips, sitting upright) Time Speech Therapy Time In: 11:15 Speech Therapy Time Out: 11:45 Total Billed Time: 30 Billed Treatment Time 1, LUIS DANIEL Judi CANDIDA THOMAS Jan 19, 2019 14:33
[2019-01-19] MEDS: ENOXAPARIN 40 MG/0.4 ML (LOVENOX) SYR SC SCH (15:01)
--- NOTE | 2019-01-19 16:11 | NUR ---
FULFILLMENT COORDINATOR met with patient to facilitate a phone intake with Yumiko at the [facility]. CHAD Leyva will complete onsite assessment on 01/23 at .
[2019-01-19 17:05] VITALS: BP 168/92
[2019-01-19] MEDS: ALPRAZolam 0.5 MG (XANAX) TAB PO PRN (20:38)
[2019-01-19] MEDS: MONTELUKAST 10 MG (SINGULAIR) TAB PO SCH (20:39)
[2019-01-19] MEDS: MELATONIN 3 MG TABLET PO SCH (20:39)
[2019-01-19] MEDS: QUEtiapine 25 MG (SEROquel) TAB IMMEDIATE RELEASE PO SCH (20:39)
[2019-01-20] MEDS: METOCLOPRAMIDE INJ 10 MG/2 ML (REGLAN) IVP SCH ×4 (00:16→17:15)
[2019-01-20] MEDS: RT-ALBUTEROL/IPRATROPIUM 3 ML (DUONEB) VIAL INH SCH ×6 (02:34→22:40)
[2019-01-20] MEDS: aCETylcysteine 20% (MUCOMYST) 30ML SOLN VIAL INH SCH ×6 (02:34→22:40)
[2019-01-20] MEDS: PIPERACILLIN/TAZO 4.5 GM/NS 100 ML IV SCH ×6 (04:05→21:16)
[2019-01-20] MEDS: CATHETER FLUSH 10 ML SYR IV PRN (04:05)
[2019-01-20] MEDS: inSUlin ASPART (NovoLOG) 1 UNIT/0.01 ML (CHARGE PER UNIT) SC SCH ×4 (05:38→21:30)
[2019-01-20 05:58] VITALS: BP 129/75
[2019-01-20] MEDS: ALPRAZolam 0.5 MG (XANAX) TAB PEG PRN (06:00)
[2019-01-20] MEDS: guaiFENesin SYRUP 100 MG/5 ML 10 ML (ROBITUSSIN SF) PEG SCH ×3 (06:00→21:11)
[2019-01-20] MEDS: KCL 10 MEQ TAB (MICRO K) PO SCH (06:00)
--- NOTE | 2019-01-20 08:01 | PM&R Progress Note ---
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 He was unable to maintain his airway. He was intubated at the scene. He was assessed in the ER by Dr. Vaughan trauma surgeon found to have significant hypotension requiring aggressive IV fluids and pressor therapy but then was assessed that he was likely an spinal cord shock and multiple right rib fractures with flail chest requiring transfer to [facility] trauma surgery which resulted in multiple procedures including tracheostomy due to failing weaning protocol on ventilator, PEG tube placement, spine MRIs confirming C3-C7 spinal cord injury complete with plating of ribs 510 on the right side and right sided chest tube. He was found to have drug screen positive for marijuana and methamphetamine. Neurosurgery was consulted perform decompressive laminectomy on C3-C7 with C4-C5 autograft bone screws and rods. He was diagnosed with Haemophilus influenza while intubated and that treatment was completed. He did have rhabdomyolysis from his injuries requiring aggressive IV fluids but they all resolved. Hyperglycemia was diagnosed and he was started on insulin and elevated liver enzymes have improved since admission and hepatitis viral panel along with HIV were negative. He did receive 2 units of packed red blood cells hospitalized. Currently patient is requiring wound care consult by Dr. Craven and general surgery consultation by Dr. García because additional debridement of the sacral decubitus ulcer will be required. He will remain with the c-collar in place until seen Dr. Nesbitt on 01/30/19. Hemoglobin today is 10.1. Dr. Arcos's been consulted for pulmonary issues which she is having increased secretions today in addition urology will be consulted for Goodman catheter maintenance for neurogenic bladder. I did speak with Dr. Arcos who will panculture the patient and change breathing treatments to clear secretions. Patient remains total care with quadriplegia. Subjective/Events-last exam No major issues overnight Dr. James is managing the decubitus ulcer of the coccyx Dr. Arcos started Diflucan for yeast on culture 3 days ago and will maintain on that Check meds and labs Conferred with RN Reviewed therapy notes Patient appears to be coming up on stability which is great news for disposition Feels pretty motivated otherwise Goodman catheter maintained to help heal the decubitus ulcer Review of Systems General: Fatigue Pulmonary: Dyspnea Neurological: Weakness, Numbness, Incoordination Objective Exam Vital Signs Vital Signs Date Time Temp Pulse Resp B/P (MAP) Pulse Ox O2 Delivery O2 Flow Rate FiO2 01/21/19 13:39 98 137/95 (109) 01/21/19 10:31 94 Trach Collar 6.00 21 01/21/19 05:16 98.6 20 Capillary Refill : Less Than 3 SecondsLess Than 3 Seconds General Appearance: No Apparent Distress, WD/WN, Chronically ill, Thin HEENT: PERRL/EOMI, Normal ENT Inspection, Pharynx Normal, Moist Mucous Membr anes Neck: Other (in collar) Respiratory: Chest Non Tender, No Accessory Muscle Use, No Respiratory Distress, Crackles, Other (trach in place) Cardiovascular: Regular Rate, Rhythm Gastrointestinal: Normal Bowel Sounds, No Organomegaly, No Pulsatile Mass, Non Tender, Soft, Other (PEG in place) Back: Normal Inspection, No CVA Tenderness, No Vertebral Tenderness Extremity: Normal Capillary Refill Neurologic/Psychiatric: Alert, Oriented x3, manager ccu II-XII Norm as Tested, Depressed Affect, Motor Weakness (bilateral lower extremities and deficits at waist) Skin: Normal Color, Warm/Dry Lymphatic: No Adenopathy Results/Procedures Lab Patient resulted labs reviewed. FIM Transfers Therapy Code Descriptions/Definitions Functional [place] Measure: 0=Not Assessed/NA 4=Minimal Assistance 1=Total Assistance 5=Supervision or Setup 2=Maximal Assistance 6=Modified [place] 3=Moderate Assistance 7=Complete [place] Therapy Quality Codes: 6 Independent with activity with or without an assistive device 5 Patient requires set up or clean up by helper. Patient completes activity by themselves 4 Supervision or touching assist (CGA). [place] provide cues , steadying assist 3 The helper provides less than half the effort to complete the activity 2 The helper provides more than half the effort to complete the activity 1 Dependent. The helper does all the effort to complete an activity 7 Patient refused to complete or attempt activity 9 The patient did not perform the activity before the current illness or injury 88 Not attempted due to Medical conditions or safety concerns Transfers (B, C, W/C) (FIM): 1 Scootin Rollin Roll Left to Right (QC): 1 Supine to/from Sit: 1 Sit to/from Stand: 1 Sit to Lying (QC): 1 Chair/Xaw-gt-Inlse Xfer(QC): 1 Bed to/from Chair: 1 Car Transfer (QC): 1 Gait Training Does the Patient Walk?: No and Walking Goal NOT indicated Wheelchair Training Does the Pt Use a Wheelchair?: Yes Wheelchair (FIM): 4 Wheelchair Distance: 3=150 ft (150,100) Distance: 800' Wheelchair Level of Assist: 4 Type of Wheelchair: Motorized Mental Status/Objective Comprehension: 6 Expression: 6 Social Interaction: 6 Problem Solvin Memory: 4 ADL-Treatment Feedin Eating (QC): 1 Groomin (Dependent to brush teeth and hair.) Oral Hygiene (QC): 1 Bathin Shower/Bathe Self (QC): 1 Upper Extremity Dressin Upper Body Dressing (QC): 1 Lower Extremity Dressin Lower Body Dressing (QC): 1 On/Off Footwear (QC): 1 Toiletin Toileting Hygiene (QC): 1 Toilet/Commode Transfer: 1 Toilet Transfer (QC): 1 Assessment/Plan Assessment and Plan Assess & Plan/Chief Complaint Assessment: 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 Nesbitt at [facility] 12/07/18 Rib plating on the right Closed right scapular fracture Diabetes mellitus [id number]-[id number] requiring insulin PEG tube status Trach dependent Anemia Hypertension DVT prophylaxis with Lovenox Neurogenic bladder requiring Goodman catheter and urology recommends maintained to help heal decubitus ulcer in the meantime Decubitus ulcer s/p debridement but appears to need additional debridement in the future OJ Psychosis resolved with Seroquel Depression placed on Celexa Ileus-resolved Plan: Broad-spectrum antibiotics for decubitus ulcer infection which is completing Debridement per Dr. García and Dr. Craven and it appears to need additional debridement periodically until healed Wound VAC after debridement if needed Maintained on Lovenox Consult urology is appreciated but goodman cath is maintained for the time being to help heal ulcer Rehabilitation to focus on transfers and lessen burden on caretakers long term placement pending due to pending Medicaid insurance Removes neck brace while sleeping to aid in alleviation of discomfort causing behaviors and will await NSG recs for brace removal at his request Seroquel at night Celexa in the morning Advanced diet Supplement potassium (1) Post-traumatic quadriplegia (2) Diabetes mellitus (3) Anemia (4) Anxiety (5) Chronic pain (6) Neurogenic bladder (7) HLD (hyperlipidemia) (8) Tracheostomy dependent (9) DVT prophylaxis (10) Closed right scapular fracture (11) Right rib fracture (12) Right pulmonary contusion (13) Decubitus ulcer of coccygeal region, stage 4 (14) Shock due to spinal cord injury (15) Paresthesias (16) Illicit drug use (17) Cellulitis (18) Hypertension (19) Type 2 diabetes mellitus with hyperglycemia (20) PEG (percutaneous endoscopic gastrostomy) status MARGUERITE GAN DO Jan 20, 2019 08:01
[2019-01-20] MEDS: POT PHOS/NA PHOS (K-PHOS NEUTRAL) PO SCH ×2 (08:33→21:16)
[2019-01-20] MEDS: FAMOTIDINE 20 MG (PEPCID) TABLET PO SCH ×2 (08:33→21:16)
[2019-01-20] MEDS: SENNA W/DOCUSATE (SENOKOT S) TABLET PO SCH ×2 (08:33→21:30)
[2019-01-20] MEDS: LORATADINE (CLARITIN) 10 MG TAB PO SCH (08:33)
[2019-01-20] MEDS: MIDODRINE 10 MG (PROAMATINE) TAB PO SCH ×3 (08:37→21:30)
[2019-01-20] MEDS: APAP 325 MG/10.15 ML LIQ (TYLENOL) UDC PO PRN ×2 (08:39→21:10)
[2019-01-20] MEDS: FLUCONAZOLE 200 MG/100 ML 50 ML, EMPTY IV BAG (PVC) 1 EA IV SCH ×2 (09:39)
--- NOTE | 2019-01-20 10:46 | Physical Therapy Daily Note ---
PT Daily Note-Current Subjective Pt agreeable to PT session. States he is tired and didn't sleep well. Requesting bed ex's this morning. Pain Numeric Pain Scale: 0-No Pain Comment: pt reports no pain lying still, just rcv'd tylenol Appearance Pt in bed upon arrival and at end of session with touch pad call light, phone and bedside table within reach Mental Status Patient Orientation: Person, Place, Time, Eyes Open, Situation Transfers Therapy Code Descriptions/Definitions Functional [place] Measure: 0=Not Assessed/NA 4=Minimal Assistance 1=Total Assistance 5=Supervision or Setup 2=Maximal Assistance 6=Modified [place] 3=Moderate Assistance 7=Complete [place] Therapy Quality Codes: 6 Independent with activity with or without an assistive device 5 Patient requires set up or clean up by helper. Patient completes activity by themselves 4 Supervision or touching assist (CGA). [place] provide cues , steadying assist 3 The helper provides less than half the effort to complete the activity 2 The helper provides more than half the effort to complete the activity 1 Dependent. The helper does all the effort to complete an activity 7 Patient refused to complete or attempt activity 9 The patient did not perform the activity before the current illness or injury 88 Not attempted due to Medical conditions or safety concerns Exercises Supine Ex: Ankle pumps, Rolling, Glut sets, Lower trunk rotation, Heel Slides, Knee to chest, Short Arc Quads, Resisted flex/ext, Straight leg raise, D2 F/E UE, Hip abd/add, Bicep Curls Supine Reps: 20 (min AROM, AAROM and PROM in all planes to pt tolerance UE's and LE's) Treatments bed mobility, education, strengthening, ROM Assessment Pt very tired and fatigued this date, able to elicit min mvmnt's in LE occasionally PT Short Term Goals Short Term Goals Time Frame: Jan 17, 2019 Transfers (B,C,W/C) (FIM): 1 Wheelchair (FIM): 4 (if he can get a power chair) Wheelchair Distance: 800' Wheelchair Level of Assist: 4 PT Eyelet Maker Goals Snf Goals PT Eyelet Maker Goals Time Frame: Jan 31, 2019 Transfers (B,C,W/C) (FIM): 1 Sit to Lying (QC): 1 Lying-Sitting on Side/Bed(QC): 1 Rollin Roll Left to Right (QC): 2 Chair/Fok-yw-Inmwj Xfer(QC): 1 Car Transfer (QC): 1 Wheelchair (FIM): 5 (if he can get a power chair) Distance: 150' Wheelchair Level of Assist: 5 Wheel 50 feet with 2 turns (QC: 4 PT Plan Treatment/Plan Treatment Plan: Continue Plan of Care Treatment Plan: Bed Mobility, Concurrent Therapy, Education, Functional Activity Estella, Functional Strength, Group Therapy, Safety, Therapeutic Exercise, Transfers Treatment Duration: Jan 31, 2019 Frequency: At least 5 of 7 days/Wk (IRF) Estimated Hrs Per Day: 1.5 hours per day Patient and/or Family Agrees t: Yes Safety Risks/Education Teaching Recipient: Patient Teaching Methods: Discussion Response to Teaching: Verbalize Understanding Time/GCodes Time In: 919 Time Out: 952 Total Billed Treatment Time: 33 Total Billed Treatment 1 visit, EX x33 min, 2 units BLAYNE GARDUNO NUMERICAL CONTROL PROGRAMMER Jan 20, 2019 10:46
--- NOTE | 2019-01-20 11:02 | Progress Note - Surgery ---
LESLIE LIGHT,MED STUDENT 01/20/19 1102: Subjective Date Seen by a Provider: Jan 20, 2019 Time Seen by a Provider: 10:00 Subjective/Events-last exam Patient feeling well. No new complaints. He had a bowel movement this morning. No family at bedside. Objective Exam Vital Signs Date Time Temp Pulse Resp B/P (MAP) Pulse Ox O2 Delivery O2 Flow Rate FiO2 01/20/19 10:15 Trach Collar 01/20/19 07:21 93 Trach Collar 6.00 21 01/20/19 05:58 98.6 82 20 129/75 (93) 95 Trach Collar 10.00 01/20/19 02:35 98 Trach Collar 6.00 28 01/19/19 22:27 92 Trach Collar 6.00 28 01/19/19 21:37 Trach Collar 6.00 21 01/19/19 17:05 98.4 66 20 168/92 (117) 98 Trach Collar 10.00 01/19/19 15:27 94 Trach Collar 6.00 28 I & O 01/20/19 07:00 Intake Total 2140 ml Output Total 3050 ml Balance -910 ml Capillary Refill : Less Than 3 SecondsLess Than 3 Seconds General Appearance: No Apparent Distress, WD/WN, Chronically ill, Thin HEENT: PERRL/EOMI, Normal ENT Inspection, Pharynx Normal, Moist Mucous Membranes Neck: Other (in collar) Respiratory: Chest Non Tender, No Accessory Muscle Use, No Respiratory Distress, Crackles, Other (trach in place) Cardiovascular: Regular Rate, Rhythm Gastrointestinal: normal bowel sounds, non tender, soft, distended (minimal distention) Extremity: Normal Capillary Refill Neurologic/Psychiatric: Alert, Oriented x3, morning caregiver II-XII Norm as Tested, Depressed Affect, Motor Weakness (bilateral lower extremities and deficits at waist) Skin: Normal Color, Warm/Dry, Other (Decubitus ulcer clean and dry with minimal eschar) Lymphatic: No Adenopathy Results Lab Laboratory Tests 01/19/19 11:27: Glucometer 124H 01/19/19 15:18: Glucometer 279H 01/19/19 20:39: Glucometer 169H Microbiology 01/10/19 Blood Culture - Final, Complete No growth 01/10/19 Gram Stain - Final, Complete 01/10/19 Sputum Culture - Final, Complete Usual upper respiratory aaron YEAST Assessment/Plan Assessment/Plan Assessment/Plan 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 abdominal distention improved and having function Decubitus ulcer coccyx wound care ileus-resolved will follow Decubitus ulcer wound clean and dry with minimal eschar. Continue wound care. Clinical Quality Measures DVT/VTE Risk/Contraindication: Risk Factor Score Per Nursin RFS Level Per Nursing on Admit: 4+=Very High NIKOLAY JAMES DO 01/20/19 1252: Subjective Subjective/Events-last exam as above, abdomen less distended, denies n/v fever sweats chills shortness of breath or chest pain. Objective Exam Gastrointestinal: distended (less distention) Other comments decubitus wound minimal eschar, clean Assessment/Plan Assessment/Plan Assessment/Plan a/p as above, continue with wound care will follow if needs further debridement Supervisory-Addendum Brief Verification & Attestation Time: Verification & Attestat.: 12:52 Participated in pt care: history, MDM, physical Personally performed: exam, history, MDM, supervision of care Care discussed with: Medical Student Procedures: n/a Results interpretation: Verified all documentation Verification and Attestation of Medical Student E/M Service A medical student performed and documented this service in my presence. I reviewed and verified all information documented by the medical student and made modifications to such information, when appropriate. I personally performed the physical exam and medical decision making. Nikolay James, Jan 20, 2019,12:52 LESLIE LIGHT,MED STUDENT Jan 20, 2019 11:02 NIKOLAY JAMES DO Jan 20, 2019 12:52
[2019-01-20 12:36] VITALS: BP 103/72
[2019-01-20] MEDS: ENOXAPARIN 40 MG/0.4 ML (LOVENOX) SYR SC SCH (14:38)
[2019-01-20 15:28] VITALS: BP 158/84
[2019-01-20] MEDS: QUEtiapine 25 MG (SEROquel) TAB IMMEDIATE RELEASE PO SCH (21:16)
[2019-01-20] MEDS: MELATONIN 3 MG TABLET PO SCH (21:16)
[2019-01-20] MEDS: ALPRAZolam 0.5 MG (XANAX) TAB PO PRN (21:17)
[2019-01-20] MEDS: MONTELUKAST 10 MG (SINGULAIR) TAB PO SCH (21:17)
[2019-01-21] MEDS: METOCLOPRAMIDE INJ 10 MG/2 ML (REGLAN) IVP SCH ×3 (00:35→11:36)
[2019-01-21] MEDS: RT-ALBUTEROL/IPRATROPIUM 3 ML (DUONEB) VIAL INH SCH ×6 (03:01→23:12)
[2019-01-21] MEDS: aCETylcysteine 20% (MUCOMYST) 30ML SOLN VIAL INH SCH ×6 (03:01→23:12)
[2019-01-21] MEDS: PIPERACILLIN/TAZO 4.5 GM/NS 100 ML IV SCH ×6 (04:13→18:53)
[2019-01-21 05:16] VITALS: BP 129/75
[2019-01-21] MEDS: inSUlin ASPART (NovoLOG) 1 UNIT/0.01 ML (CHARGE PER UNIT) SC SCH ×4 (05:37→20:48)
[2019-01-21] MEDS: guaiFENesin SYRUP 100 MG/5 ML 10 ML (ROBITUSSIN SF) PEG SCH ×3 (06:19→22:00)
[2019-01-21] MEDS: ALPRAZolam 0.5 MG (XANAX) TAB PEG PRN (06:19)
[2019-01-21] MEDS: KCL 10 MEQ TAB (MICRO K) PO SCH (06:19)
[2019-01-21] MEDS: MIDODRINE 10 MG (PROAMATINE) TAB PO SCH ×3 (08:26→20:46)
[2019-01-21] MEDS: POT PHOS/NA PHOS (K-PHOS NEUTRAL) PO SCH ×2 (08:26→20:47)
[2019-01-21] MEDS: SENNA W/DOCUSATE (SENOKOT S) TABLET PO SCH ×2 (08:26→20:55)
[2019-01-21] MEDS: LORATADINE (CLARITIN) 10 MG TAB PO SCH (08:26)
[2019-01-21] MEDS: FAMOTIDINE 20 MG (PEPCID) TABLET PO SCH ×2 (08:26→20:46)
[2019-01-21] MEDS: FLUCONAZOLE 200 MG/100 ML 50 ML, EMPTY IV BAG (PVC) 1 EA IV SCH ×2 (08:28)
--- NOTE | 2019-01-21 12:48 | PM&R Progress Note ---
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 He was unable to maintain his airway. He was intubated at the scene. He was assessed in the ER by Dr. Vaughan trauma surgeon found to have significant hypotension requiring aggressive IV fluids and pressor therapy but then was assessed that he was likely an spinal cord shock and multiple right rib fractures with flail chest requiring transfer to [facility] trauma surgery which resulted in multiple procedures including tracheostomy due to failing weaning protocol on ventilator, PEG tube placement, spine MRIs confirming C3-C7 spinal cord injury complete with plating of ribs 510 on the right side and right sided chest tube. He was found to have drug screen positive for marijuana and methamphetamine. Neurosurgery was consulted perform decompressive laminectomy on C3-C7 with C4-C5 autograft bone screws and rods. He was diagnosed with Haemophilus influenza while intubated and that treatment was completed. He did have rhabdomyolysis from his injuries requiring aggressive IV fluids but they all resolved. Hyperglycemia was diagnosed and he was started on insulin and elevated liver enzymes have improved since admission and hepatitis viral panel along with HIV were negative. He did receive 2 units of packed red blood cells hospitalized. Currently patient is requiring wound care consult by Dr. Craven and general surgery consultation by Dr. García because additional debridement of the sacral decubitus ulcer will be required. He will remain with the c-collar in place until seen Dr. Nesbitt on 01/30/19. Hemoglobin today is 10.1. Dr. Arcos's been consulted for pulmonary issues which she is having increased secretions today in addition urology will be consulted for Zamarripa catheter maintenance for neurogenic bladder. I did speak with Dr. Arcos who will panculture the patient and change breathing treatments to clear secretions. Patient remains total care with quadriplegia. Subjective/Events-last exam Patient is in good spirits today Once Reglan discontinued or changed to as needed No more gastroparesis or ileus noted Bowel movement this morning was soft but adequate Sugar was a little bit high which seems to be isolated so if that continues to be a trend will change to pured diet no concentrated sweets and limiting carbohydrates Check meds and labs Decubitus ulcer appears improved and placed less packing per Dr James Conferred with RN Reviewed therapy notes Medicaid pending and will dispose to retirement Review of Systems General: Fatigue Neurological: Weakness, Numbness, Incoordination Objective Exam Vital Signs Vital Signs Date Time Temp Pulse Resp B/P (MAP) Pulse Ox O2 Delivery O2 Flow Rate FiO2 01/21/19 13:39 98 137/95 (109) 01/21/19 10:31 94 Trach Collar 6.00 21 01/21/19 05:16 98.6 20 Capillary Refill : Less Than 3 SecondsLess Than 3 Seconds General Appearance: No Apparent Distress, WD/WN, Chronically ill, Thin HEENT: PERRL/EOMI, Normal ENT Inspection, Pharynx Normal, Moist Mucous Membranes Neck: Other (in collar) Respiratory: Chest Non Tender, No Accessory Muscle Use, No Respiratory Distress, Crackles, Other (trach in place) Cardiovascular: Regular Rate, Rhythm Gastrointestinal: Normal Bowel Sounds, No Organomegaly, No Pulsatile Mass, Non Tender, Soft, Other (PEG in place) Back: Normal Inspection, No CVA Tenderness, No Vertebral Tenderness Extremity: Normal Capillary Refill Neurologic/Psychiatric: Alert, Oriented x3, hair stylist II-XII Norm as Tested, Depressed Affect, Motor Weakness (bilateral lower extremities and deficits at waist) Skin: Normal Color, Warm/Dry, Other (Decubitus ulcer clean and dry with minimal eschar) Lymphatic: No Adenopathy Results/Procedures Lab Patient resulted labs reviewed. FIM Transfers Therapy Code Descriptions/Definitions Functional [place] Measure: 0=Not Assessed/NA 4=Minimal Assistance 1=Total Assistance 5=Supervision or Setup 2=Maximal Assistance 6=Modified [place] 3=Moderate Assistance 7=Complete [place] Therapy Quality Codes: 6 Independent with activity with or without an assistive device 5 Patient requires set up or clean up by helper. Patient completes activity by themselves 4 Supervision or touching assist (CGA). [place] provide cues , steadying assist 3 The helper provides less than half the effort to complete the activity 2 The helper provides more than half the effort to complete the activity 1 Dependent. The helper does all the effort to complete an activity 7 Patient refused to complete or attempt activity 9 The patient did not perform the activity before the current illness or injury 88 Not attempted due to Medical conditions or safety concerns Transfers (B, C, W/C) (FIM): 1 Scootin Rollin Roll Left to Right (QC): 1 Supine to/from Sit: 1 Sit to/from Stand: 1 Sit to Lying (QC): 1 Chair/Swz-qx-Axrgb Xfer(QC): 1 Bed to/from Chair: 1 Car Transfer (QC): 1 Gait Training Does the Patient Walk?: No and Walking Goal NOT indicated Wheelchair Training Does the Pt Use a Wheelchair?: Yes Wheelchair (FIM): 4 Wheelchair Distance: 3=150 ft (150,100) Distance: 800' Wheelchair Level of Assist: 4 Type of Wheelchair: Motorized Mental Status/Objective Comprehension: 6 Expression: 6 Social Interaction: 6 Problem Solvin Memory: 4 ADL-Treatment Feedin Eating (QC): 1 Groomin (Dependent to brush teeth and hair.) Oral Hygiene (QC): 1 Bathin Shower/Bathe Self (QC): 1 Upper Extremity Dressin Upper Body Dressing (QC): 1 Lower Extremity Dressin Lower Body Dressing (QC): 1 On/Off Footwear (QC): 1 Toiletin Toileting Hygiene (QC): 1 Toilet/Commode Transfer: 1 Toilet Transfer (QC): 1 Assessment/Plan Assessment and Plan Assess & Plan/Chief Complaint Assessment: 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 Nesbitt at [facility] 12/07/18 Rib plating on the right Closed right scapular fracture Diabetes mellitus [id number] requiring insulin now improved PEG tube status and likely will DC in the next several weeks Trach dependent Anemia Hypertension DVT prophylaxis with Lovenox Neurogenic bladder requiring Zamarripa catheter and urology recommends maintained to help heal decubitus ulcer in the meantime Decubitus ulcer s/p debridement but appears to need additional debridement prn if worsens OJ Psychosis resolved with Seroquel Depression placed on Celexa Ileus-resolved Plan: Broad-spectrum antibiotics for decubitus ulcer infection which is completing Debridement per Dr. García and Dr. Craven and it appears to need additional debridement in the future until healed Wound VAC after debridement if needed Maintained on Lovenox Consult urology is appreciated but no DC cath until coccyx ulcer is healed Rehabilitation to focus on transfers and lessen burden on caretakers skilled nursing placement pending Medicaid Removes neck brace while sleeping to aid in alleviation of discomfort causing behaviors and will await NSG recs for brace removal at his request Seroquel at night Celexa in the morning Advanced diet Supplement potassium (1) Post-traumatic quadriplegia (2) Diabetes mellitus (3) Anemia (4) Anxiety (5) Chronic pain (6) Neurogenic bladder (7) HLD (hyperlipidemia) (8) Tracheostomy dependent (9) DVT prophylaxis (10) Closed right scapular fracture (11) Right rib fracture (12) Right pulmonary contusion (13) Decubitus ulcer of coccygeal region, stage 4 (14) Shock due to spinal cord injury (15) Paresthesias (16) Illicit drug use (17) Cellulitis (18) Hypertension (19) Type 2 diabetes mellitus with hyperglycemia (20) PEG (percutaneous endoscopic gastrostomy) status MARGUERITE GAN DO Jan 21, 2019 12:48
[2019-01-21 13:39] VITALS: BP 137/95
--- NOTE | 2019-01-21 14:15 | Progress Note - Surgery ---
JUICE SAMSON,MED STUDENT 01/21/19 1415: Subjective Date Seen by a Provider: Jan 21, 2019 Time Seen by a Provider: 11:20 Subjective/Events-last exam PT in good spirits and has no new complaints at this time. No family at bedside. Objective Exam Vital Signs Date Time Temp Pulse Resp B/P (MAP) Pulse Ox O2 Delivery O2 Flow Rate FiO2 01/21/19 13:39 98 137/95 (109) 01/21/19 10:31 94 Trach Collar 6.00 21 01/21/19 08:00 Trach Collar 01/21/19 06:57 96 Trach Collar 6.00 21 01/21/19 05:16 98.6 82 20 129/75 (93) 95 Trach Collar 01/21/19 03:02 96 Trach Collar 6.00 21 01/20/19 22:40 93 Trach Collar 6.00 21 01/20/19 21:35 Trach Collar 6.00 21 01/20/19 19:08 94 Trach Collar 6.00 21 01/20/19 15:28 97.0 70 16 158/84 (108) 96 Trach Collar 01/20/19 15:01 94 Trach Collar 6.00 21 I & O 01/21/19 07:00 Intake Total 1870 ml Output Total 3600 ml Balance -1730 ml Capillary Refill : Less Than 3 SecondsLess Than 3 Seconds General Appearance: No Apparent Distress, WD/WN, Chronically ill, Thin HEENT: PERRL/EOMI Neck: Other (in collar) Respiratory: Chest Non Tender, No Accessory Muscle Use, No Respiratory Distress, Other (trach in place) Cardiovascular: Regular Rate, Rhythm Gastrointestinal: distended (less distention) Extremity: Normal Capillary Refill Neurologic/Psychiatric: Alert, Oriented x3, beater dumper II-XII Norm as Tested, Motor Weakness (bilateral lower extremities and deficits at waist) Skin: Normal Color, Warm/Dry, Other (Decubitus ulcer clean and dry with minimal eschar) Results Lab Laboratory Tests 01/20/19 15:27: Glucometer 217H 01/20/19 21:18: Glucometer 134H 01/21/19 05:33: Glucometer 118H 01/21/19 11:17: Glucometer 334H Microbiology 01/10/19 Blood Culture - Final, Complete No growth 01/10/19 Gram Stain - Final, Complete 01/10/19 Sputum Culture - Final, Complete Usual upper respiratory aaron YEAST Assessment/Plan Assessment/Plan Assessment/Plan 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 abdominal distention improved and having function Decubitus ulcer coccyx wound care ileus-resolved Decubitus ulcer clean and dry, minimal eschar Continue wound care, will follow prn for debridement Clinical Quality Measures DVT/VTE Risk/Contraindication: Risk Factor Score Per Nursin RFS Level Per Nursing on Admit: 4+=Very High NIKOLAY JAMES DO 01/21/19 1624: Subjective Subjective/Events-last exam having bowel function. tolerating diet. denies n/v fever sweats chills shortness of breath or chest pain. Objective Exam Neck: Other (in collar/trach) Respiratory: Other (trach in place) Skin: Other (Decubitus ulcer clean and dry with minimal eschar) Assessment/Plan Assessment/Plan Assessment/Plan as above, changed wound dressing will follow Supervisory-Addendum Brief Verification & Attestation Time: Verification & Attestat.: 16:21 Participated in pt care: history, MDM, physical Personally performed: exam, history, MDM, supervision of care Care discussed with: Medical Student Procedures: n/a Results interpretation: Verified all documentation Verification and Attestation of Medical Student E/M Service A medical student performed and documented this service in my presence. I reviewed and verified all information documented by the medical student and made modifications to such information, when appropriate. I personally performed the physical exam and medical decision making. Nikolay James, Jan 21, 2019,16:21 JUICE SAMSON,MED STUDENT Jan 21, 2019 14:15 NIKOLAY JAMES DO Jan 21, 2019 16:24
[2019-01-21] MEDS: ENOXAPARIN 40 MG/0.4 ML (LOVENOX) SYR SC SCH (14:21)
[2019-01-21 15:33] VITALS: BP 131/72
[2019-01-21] MEDS: QUEtiapine 25 MG (SEROquel) TAB IMMEDIATE RELEASE PO SCH (20:46)
[2019-01-21] MEDS: MONTELUKAST 10 MG (SINGULAIR) TAB PO SCH (20:46)
[2019-01-21] MEDS: MELATONIN 3 MG TABLET PO SCH (20:47)
[2019-01-21] MEDS: ALPRAZolam 0.5 MG (XANAX) TAB PO PRN (20:51)
[2019-01-22] MEDS: aCETylcysteine 20% (MUCOMYST) 30ML SOLN VIAL INH SCH ×6 (02:28→23:20)
[2019-01-22] MEDS: RT-ALBUTEROL/IPRATROPIUM 3 ML (DUONEB) VIAL INH SCH ×6 (02:28→23:20)
[2019-01-22] MEDS: PIPERACILLIN/TAZO 4.5 GM/NS 100 ML IV SCH ×2 (04:12)
[2019-01-22] MEDS: CATHETER FLUSH 10 ML SYR IV PRN ×2 (04:12→04:13)
[2019-01-22 04:20] LABS: BASOPHILS % (AUTO) 0 % (0-10); EOSINOPHILS # (AUTO) 0.2 10^3/uL (0.0-0.3); EOSINOPHILS % (AUTO) 2 % (0-10); HEMATOCRIT 34 % (40-54); HEMOGLOBIN 10.7 G/DL (13.3-17.7); LYMPHOCYTES # (AUTO) 2.1 X 10^3 (1.0-4.0); LYMPHOCYTES % (AUTO) 28 % (12-44); MEAN CORPUSCULAR HEMOGLOBIN 30 PG (25-34); MEAN CORPUSCULAR HGB CONC 32 G/DL (32-36); MEAN CORPUSCULAR VOLUME 96 FL (80-99); MEAN PLATELET VOLUME 7.9 FL (7.4-10.4); MONOCYTES # (AUTO) 1.1 X 10^3 (0.0-1.0); MONOCYTES % (AUTO) 15 % (0-12); NEUTROPHILS # (AUTO) 4.1 X 10^3 (1.8-7.8); NEUTROPHILS % (AUTO) 55 % (42-75); PLATELET COUNT 242 10^3/uL (130-400); RED CELL DISTRIBUTION WIDTH 14.8 % (10.0-14.5); WHITE BLOOD COUNT 7.5 10^3/uL (4.3-11.0)
[2019-01-22 04:39] LABS: ALANINE AMINOTRANSFERASE 17 U/L (0-55); ALBUMIN 3.2 GM/DL (3.2-4.5); ALKALINE PHOSPHATASE 149 U/L (40-136); BILIRUBIN,TOTAL 0.3 MG/DL (0.1-1.0); BUN/CREATININE RATIO 12; CALCIUM 9.8 MG/DL (8.5-10.1); CARBON DIOXIDE 22 MMOL/L (21-32); CHLORIDE 106 MMOL/L (98-107); CREATININE SERUM 0.65 MG/DL (0.60-1.30); GFR ESTIMATED > 60; GLUCOSE 78 MG/DL (70-105); POTASSIUM 3.5 MMOL/L (3.6-5.0); SODIUM 142 MMOL/L (135-145); TOTAL PROTEIN 8.1 GM/DL (6.4-8.2)
[2019-01-22] MEDS: inSUlin ASPART (NovoLOG) 1 UNIT/0.01 ML (CHARGE PER UNIT) SC SCH ×4 (04:47→21:15)
[2019-01-22 05:34] VITALS: BP 122/78
[2019-01-22] MEDS: guaiFENesin SYRUP 100 MG/5 ML 10 ML (ROBITUSSIN SF) PEG SCH ×3 (06:32→21:20)
[2019-01-22] MEDS: KCL 10 MEQ TAB (MICRO K) PO SCH (06:32)
[2019-01-22] MEDS: ALPRAZolam 0.5 MG (XANAX) TAB PEG PRN ×2 (06:32→20:28)
--- NOTE | 2019-01-22 07:42 | PM&R Progress Note ---
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 He was unable to maintain his airway. He was intubated at the scene. He was assessed in the ER by Dr. Vauhgan trauma surgeon found to have significant hypotension requiring aggressive IV fluids and pressor therapy but then was assessed that he was likely an spinal cord shock and multiple right rib fractures with flail chest requiring transfer to [facility] trauma surgery which resulted in multiple procedures including tracheostomy due to failing weaning protocol on ventilator, PEG tube placement, spine MRIs confirming C3-C7 spinal cord injury complete with plating of ribs 510 on the right side and right sided chest tube. He was found to have drug screen positive for marijuana and methamphetamine. Neurosurgery was consulted perform decompressive laminectomy on C3-C7 with C4-C5 autograft bone screws and rods. He was diagnosed with Haemophilus influenza while intubated and that treatment was completed. He did have rhabdomyolysis from his injuries requiring aggressive IV fluids but they all resolved. Hyperglycemia was diagnosed and he was started on insulin and elevated liver enzymes have improved since admission and hepatitis viral panel along with HIV were negative. He did receive 2 units of packed red blood cells hospitalized. Currently patient is requiring wound care consult by Dr. Craven and general surgery consultation by Dr. García because additional debridement of the sacral decubitus ulcer will be required. He will remain with the c-collar in place until seen Dr. Nesbitt on 01/30/19. Hemoglobin today is 10.1. Dr. Arcos's been consulted for pulmonary issues which she is having increased secretions today in addition urology will be consulted for Zamarripa catheter maintenance for neurogenic bladder. I did speak with Dr. Arcos who will panculture the patient and change breathing treatments to clear secretions. Patient remains total care with quadriplegia. Subjective/Events-last exam Patient is in a good mood and said he had a good weekend. Was eating breakfast when I entered. Family at bedside to assist. Had pudding. Does mention pain in shoulder, but needs surgery. Did state that changing bed hardness helped with pain. No complaints about bed sore. Mentioned there will be adjustments made to his trach. Stated that they were decreasing the size and putting in a trach cap. Expiratory wheezing noted on exam but generally sounds good otherwise. Low potassium at 3.5. Alkaline phosphatase is elevated at 149. Corrected Calcium is elevated at 10.4. Objective Exam Vital Signs Vital Signs Date Time Temp Pulse Resp B/P (MAP) Pulse Ox O2 Delivery O2 Flow Rate FiO2 01/22/19 05:34 98.4 78 18 122/78 (93) 96 Trach Collar 6.00 01/22/19 02:28 21 Capillary Refill : Less Than 3 SecondsLess Than 3 Seconds General Appearance: No Apparent Distress, WD/WN, Chronically ill, Thin HEENT: PERRL/EOMI, Normal ENT Inspection, Pharynx Normal, Moist Mucous Membranes Neck: Other (in collar/trach) Respiratory: Other (trach in place) Cardiovascular: Regular Rate, Rhythm Gastrointestinal: Normal Bowel Sounds, No Organomegaly, No Pulsatile Mass, Non Tender, Soft, Other (PEG in place) Back: Normal Inspection, No CVA Tenderness, No Vertebral Tenderness Extremity: Normal Capillary Refill Neurologic/Psychiatric: Alert, Oriented x3, heel stiffener II-XII Norm as Tested, Depressed Affect, Motor Weakness (bilateral lower extremities and deficits at waist) Skin: Other (Decubitus ulcer clean and dry with minimal eschar) Lymphatic: No Adenopathy Results/Procedures Lab Laboratory Tests 01/22/19 04:15 Patient resulted labs reviewed. FIM Transfers Therapy Code Descriptions/Definitions Functional [place] Measure: 0=Not Assessed/NA 4=Minimal Assistance 1=Total Assistance 5=Supervision or Setup 2=Maximal Assistance 6=Modified [place] 3=Moderate Assistance 7=Complete [place] Therapy Quality Codes: 6 Independent with activity with or without an assistive device 5 Patient requires set up or clean up by helper. Patient completes activity by themselves 4 Supervision or touching assist (CGA). [place] provide cues , steadying assist 3 The helper provides less than half the effort to complete the activity 2 The helper provides more than half the effort to complete the activity 1 Dependent. The helper does all the effort to complete an activity 7 Patient refused to complete or attempt activity 9 The patient did not perform the activity before the current illness or injury 88 Not attempted due to Medical conditions or safety concerns Transfers (B, C, W/C) (FIM): 1 Scootin Rollin Roll Left to Right (QC): 1 Supine to/from Sit: 1 Sit to/from Stand: 1 Sit to Lying (QC): 1 Chair/Cky-ne-Hdzai Xfer(QC): 1 Bed to/from Chair: 1 Car Transfer (QC): 1 Gait Training Does the Patient Walk?: No and Walking Goal NOT indicated Wheelchair Training Does the Pt Use a Wheelchair?: Yes Wheelchair (FIM): 4 Wheelchair Distance: 3=150 ft (150,100) Distance: 800' Wheelchair Level of Assist: 4 Type of Wheelchair: Motorized Mental Status/Objective Comprehension: 6 Expression: 6 Social Interaction: 6 Problem Solvin Memory: 4 ADL-Treatment Feedin Eating (QC): 1 Groomin (Dependent to brush teeth and hair.) Oral Hygiene (QC): 1 Bathin Shower/Bathe Self (QC): 1 Upper Extremity Dressin Upper Body Dressing (QC): 1 Lower Extremity Dressin Lower Body Dressing (QC): 1 On/Off Footwear (QC): 1 Toiletin Toileting Hygiene (QC): 1 Toilet/Commode Transfer: 1 Toilet Transfer (QC): 1 Assessment/Plan Assessment and Plan Assess & Plan/Chief Complaint Assessment: 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 Nesbitt at [facility] 12/07/18 Rib plating on the right Closed right scapular fracture Diabetes mellitus [id number] requiring insulin now improved PEG tube status and likely will DC in the next several weeks Trach dependent Anemia Hypertension DVT prophylaxis with Lovenox Neurogenic bladder requiring Zamarripa catheter and urology recommends maintained to help heal decubitus ulcer in the meantime Decubitus ulcer s/p debridement but appears to need additional debridement prn if worsens OJ Psychosis resolved with Seroquel Depression placed on Celexa Ileus-resolved Plan: Broad-spectrum antibiotics for decubitus ulcer infection which is completing Debridement per Dr. García and Dr. Craven and it appears to need additional debridement in the future until healed Wound VAC after debridement if needed Maintained on Lovenox Consult urology is appreciated but no DC cath until coccyx ulcer is healed Rehabilitation to focus on transfers and lessen burden on caretakers alf placement pending Medicaid Removes neck brace while sleeping to aid in alleviation of discomfort causing behaviors and will await NSG recs for brace removal at his request Seroquel at night Celexa in the morning Advanced diet Supplement potassium Tracheostomy decannulation (1) Post-traumatic quadriplegia (2) Diabetes mellitus (3) Anemia (4) Anxiety (5) Chronic pain (6) Neurogenic bladder (7) HLD (hyperlipidemia) (8) Tracheostomy dependent (9) DVT prophylaxis (10) Closed right scapular fracture (11) Right rib fracture (12) Right pulmonary contusion (13) Decubitus ulcer of coccygeal region, stage 4 (14) Shock due to spinal cord injury (15) Paresthesias (16) Illicit drug use (17) Cellulitis (18) Hypertension (19) Type 2 diabetes mellitus with hyperglycemia (20) PEG (percutaneous endoscopic gastrostomy) status PAOLA GAN DO 01/22/192020: Subjective Review of Systems Neurological: Incoordination Assessment/Plan Assessment and Plan (1) Spinal cord injury at C1-C4 level (2) Elevated blood pressure reading (3) Septic prepatellar bursitis of left knee (4) septic bursa (5) Hospital discharge follow-up (6) Anemia (7) Anxiety (8) Chronic pain (9) Neurogenic bladder (10) HLD (hyperlipidemia) (11) Tracheostomy dependent (12) DVT prophylaxis (13) Post-traumatic quadriplegia (14) Closed right scapular fracture (15) Right rib fracture (16) Right pulmonary contusion (17) Decubitus ulcer of coccygeal region, stage 4 (18) Shock due to spinal cord injury (19) Diabetes mellitus (20) Paresthesias (21) Uncontrolled diabetes mellitus (22) Illicit drug use (23) Cellulitis (24) Hyperglycemia (25) Sepsis (26) Hypertension (27) Type 2 diabetes mellitus with hyperglycemia (28) PEG (percutaneous endoscopic gastrostomy) status Supervisory-Addendum Brief Verification & Attestation Time: Verification & Attestat.: 09:00 Participated in pt care: history, MDM, physical Personally performed: exam, history, MDM, supervision of care Care discussed with: Medical Student Procedures: n/a Results interpretation: Verified all documentation Verification and Attestation of Medical Student E/M Service A medical student performed and documented this service in my presence. I reviewed and verified all information documented by the medical student and made modifications to such information, when appropriate. I personally performed the physical exam and medical decision making. Paola Gan, Jan 22, 2019,20:20 LUH MACHADO, Jan 22, 2019 07:42 PAOLA GAN DO Jan 22, 2019 20:21
--- NOTE | 2019-01-22 07:59 | Progress Note - Surgery ---
JUICE SAMSON,MED STUDENT 01/22/19 0758: Subjective Date Seen by a Provider: Jan 22, 2019 Time Seen by a Provider: 07:24 Subjective/Events-last exam PT tolerating diet and having bowel movements. Denies nausea/vomiting/fever/chills/shortness of breath and chest pain. Family at bedside. Objective Exam Vital Signs Date Time Temp Pulse Resp B/P (MAP) Pulse Ox O2 Delivery O2 Flow Rate FiO2 01/22/19 05:34 98.4 78 18 122/78 (93) 96 Trach Collar 6.00 01/22/19 02:28 92 Trach Collar 6.00 21 01/21/19 23:12 93 Trach Collar 6.00 21 01/21/19 21:17 Trach Collar 6.00 21 01/21/19 18:30 96 Trach Collar 6.00 21 01/21/19 15:33 97.8 78 16 131/72 (91) 96 Trach Collar 6.00 01/21/19 15:12 94 Trach Collar 6.00 01/21/19 13:39 98 137/95 (109) 01/21/19 10:31 94 Trach Collar 6.00 21 01/21/19 08:00 Trach Collar I & O 01/22/19 07:00 Intake Total 2100 ml Output Total 2950 ml Balance -850 ml Capillary Refill : Less Than 3 SecondsLess Than 3 Seconds General Appearance: No Apparent Distress, WD/WN, Chronically ill, Thin HEENT: PERRL/EOMI Neck: Other (in collar/trach) Respiratory: Chest Non Tender, Other (trach in place) Cardiovascular: Regular Rate, Rhythm Gastrointestinal: distended (less distention) Extremity: Normal Capillary Refill Neurologic/Psychiatric: Alert, Oriented x3, line service technician II-XII Norm as Tested, Depressed Affect, Motor Weakness (bilateral lower extremities and deficits at waist) Skin: Other (Decubitus ulcer clean and dry with minimal eschar) Lymphatic: No Adenopathy Results Lab Laboratory Tests 01/21/19 11:17: Glucometer 334H 01/21/19 15:31: Glucometer 128H 01/21/19 20:00: Glucometer 207H 01/22/19 04:15: White Blood Count 7.5, Red Blood Count 3.56L, Hemoglobin 10.7L, Hematocrit 34L, Mean Corpuscular Volume 96, Mean Corpuscular Hemoglobin 30, Mean Corpuscular Hemoglobin Concent 32, Red Cell Distribution Width 14.8H, Platelet Count 242, Mean Platelet Volume 7.9, Neutrophils (%) (Auto) 55, Lymphocytes (%) (Auto) 28, Monocytes (%) (Auto) 15H, Eosinophils (%) (Auto) 2, Basophils (%) (Auto) 0, Neutrophils # (Auto) 4.1, Lymphocytes # (Auto) 2.1, Monocytes # (Auto) 1.1H, Eosinophils # (Auto) 0.2, Basophils # (Auto) 0.0, Sodium Level 142, Potassium Level 3.5L, Chloride Level 106, Carbon Dioxide Level 22, Anion Gap 14, Blood Urea Nitrogen 8, Creatinine 0.65, Estimat Glomerular Filtration Rate > 60, BUN/Creatinine Ratio 12, Glucose Level 78, Calcium Level 9.8, Corrected Calcium 10.4H, Total Bilirubin 0.3, Aspartate Amino Transf (AST/SGOT) 13, Alanine Aminotransferase (ALT/SGPT) 17, Alkaline Phosphatase 149H, Total Protein 8.1, Albumin 3.2 Microbiology 01/10/19 Blood Culture - Final, Complete No growth 01/10/19 Gram Stain - Final, Complete 01/10/19 Sputum Culture - Final, Complete Usual upper respiratory aaron YEAST Assessment/Plan Assessment/Plan Assessment/Plan 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 abdominal distention improved and having function Decubitus ulcer coccyx wound care ileus-resolved Decubitus ulcer clean and dry, minimal eschar Continue wound care, debridement prn will follow Clinical Quality Measures DVT/VTE Risk/Contraindication: Risk Factor Score Per Nursin RFS Level Per Nursing on Admit: 4+=Very High NIKOLAY JAMES DO 01/29/19 2000: Supervisory-Addendum Brief Verification & Attestation Time: Verification & Attestat.: 20:00 Participated in pt care: history, MDM, physical Personally performed: exam, history, MDM, supervision of care Care discussed with: Medical Student Procedures: n/a Results interpretation: Verified all documentation Verification and Attestation of Medical Student E/M Service A medical student performed and documented this service in my presence. I reviewed and verified all information documented by the medical student and made modifications to such information, when appropriate. I personally performed the physical exam and medical decision making. Nikolay James Jan 29, 2019,20:00 SEE ATTENDING NOTE JUICE SAMSON,MED STUDENT Jan 22, 2019 07:58 NIKOLAY JAMES DO Jan 29, 2019 20:00
[2019-01-22] MEDS: SENNA W/DOCUSATE (SENOKOT S) TABLET PO SCH ×2 (09:00→20:27)
[2019-01-22] MEDS: FLUCONAZOLE 200 MG/100 ML 50 ML, EMPTY IV BAG (PVC) 1 EA IV SCH ×2 (09:09)
[2019-01-22] MEDS: FAMOTIDINE 20 MG (PEPCID) TABLET PO SCH ×2 (09:16→20:28)
[2019-01-22] MEDS: LORATADINE (CLARITIN) 10 MG TAB PO SCH (09:16)
[2019-01-22] MEDS: POT PHOS/NA PHOS (K-PHOS NEUTRAL) PO SCH ×2 (09:16→20:27)
[2019-01-22] MEDS: MIDODRINE 10 MG (PROAMATINE) TAB PO SCH ×3 (09:16→21:20)
--- NOTE | 2019-01-22 09:29 | PM&R Progress Note ---
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 He was unable to maintain his airway. He was intubated at the scene. He was assessed in the ER by Dr. Vaughan trauma surgeon found to have significant hypotension requiring aggressive IV fluids and pressor therapy but then was assessed that he was likely an spinal cord shock and multiple right rib fractures with flail chest requiring transfer to [facility] trauma surgery which resulted in multiple procedures including tracheostomy due to failing weaning protocol on ventilator, PEG tube placement, spine MRIs confirming C3-C7 spinal cord injury complete with plating of ribs 510 on the right side and right sided chest tube. He was found to have drug screen positive for marijuana and methamphetamine. Neurosurgery was consulted perform decompressive laminectomy on C3-C7 with C4-C5 autograft bone screws and rods. He was diagnosed with Haemophilus influenza while intubated and that treatment was completed. He did have rhabdomyolysis from his injuries requiring aggressive IV fluids but they all resolved. Hyperglycemia was diagnosed and he was started on insulin and elevated liver enzymes have improved since admission and hepatitis viral panel along with HIV were negative. He did receive 2 units of packed red blood cells hospitalized. Currently patient is requiring wound care consult by Dr. Craven and general surgery consultation by Dr. García because additional debridement of the sacral decubitus ulcer will be required. He will remain with the c-collar in place until seen Dr. Nesbitt on 01/30/19. Hemoglobin today is 10.1. Dr. Arcos's been consulted for pulmonary issues which she is having increased secretions today in addition urology will be consulted for Zamarripa catheter maintenance for neurogenic bladder. I did speak with Dr. Arcos who will panculture the patient and change breathing treatments to clear secretions. Patient remains total care with quadriplegia. Subjective/Events-last exam Patient is in a good mood and said he had a good weekend. Was eating breakfast when I entered. Family at bedside to assist. Had pudding. Does mention pain in shoulder, but needs surgery. No complaints about bed sore. Mentioned there will be adjustments made to his trach. Stated that they were decreasing the size and putting in a trach cap. Expiratory wheezing noted on exam but generally sounds good otherwise. Low potassium at 3.5. Alkaline phosphatase is elevated at 149. Corrected Calcium is elevated at 10.4. Changing trach to smaller apparatus Advancing diet as long as ST evaluates and approves to monitor for aspiration risk Pills are swallowed ok Insomnia is a bit of an issue at times, relative stayed with him last night to help Sugar 78 this morning so will evaluate the adjustment of the insulin Neck xrays are being ordered from Dr Nesbitt direction to see if we can DC the brace. Likely patient will be DC home at least until Medicaid approved and if needed then will move to [place] Review of Systems Neurological: Weakness, Numbness, Incoordination Objective Exam Vital Signs Vital Signs Date Time Temp Pulse Resp B/P (MAP) Pulse Ox O2 Delivery O2 Flow Rate FiO2 01/22/19 10:43 96 Trach Collar 6.00 21 01/22/19 05:34 98.4 78 18 122/78 (93) Capillary Refill : Less Than 3 SecondsLess Than 3 Seconds General Appearance: No Apparent Distress, WD/WN, Chronically ill, Thin HEENT: PERRL/EOMI, Normal ENT Inspection, Pharynx Normal, Moist Mucous Membranes Neck: Other (in collar/trach) Respiratory: Other (trach in place) Cardiovascular: Regular Rate, Rhythm Gastrointestinal: Normal Bowel Sounds, No Organomegaly, No Pulsatile Mass, Non Tender, Soft, Other (PEG in place) Back: Normal Inspection, No CVA Tenderness, No Vertebral Tenderness Extremity: Normal Capillary Refill Neurologic/Psychiatric: Alert, Oriented x3, agricultural research engineer II-XII Norm as Tested, Depressed Affect, Motor Weakness (bilateral lower extremities and deficits at waist) Skin: Other (Decubitus ulcer clean and dry with minimal eschar) Lymphatic: No Adenopathy Results/Procedures Lab Laboratory Tests 01/22/19 04:15 Patient resulted labs reviewed. FIM Transfers Therapy Code Descriptions/Definitions Functional [place] Measure: 0=Not Assessed/NA 4=Minimal Assistance 1=Total Assistance 5=Supervision or Setup 2=Maximal Assistance 6=Modified [place] 3=Moderate Assistance 7=Complete [place] Therapy Quality Codes: 6 Independent with activity with or without an assistive device 5 Patient requires set up or clean up by helper. Patient completes activity by themselves 4 Supervision or touching assist (CGA). [place] provide cues , steadying assist 3 The helper provides less than half the effort to complete the activity 2 The helper provides more than half the effort to complete the activity 1 Dependent. The helper does all the effort to complete an activity 7 Patient refused to complete or attempt activity 9 The patient did not perform the activity before the current illness or injury 88 Not attempted due to Medical conditions or safety concerns Transfers (B, C, W/C) (FIM): 1 Scootin Rollin Roll Left to Right (QC): 1 Supine to/from Sit: 1 Sit to/from Stand: 1 Sit to Lying (QC): 1 Chair/Snj-vf-Tjqvw Xfer(QC): 1 Bed to/from Chair: 1 Car Transfer (QC): 1 Gait Training Does the Patient Walk?: No and Walking Goal NOT indicated Wheelchair Training Does the Pt Use a Wheelchair?: Yes Wheelchair (FIM): 4 Wheelchair Distance: 3=150 ft (150,100) Distance: 800' Wheelchair Level of Assist: 4 Type of Wheelchair: Motorized Mental Status/Objective Comprehension: 6 Expression: 6 Social Interaction: 6 Problem Solvin Memory: 4 ADL-Treatment Feedin Eating (QC): 1 Groomin (Dependent to brush teeth and hair.) Oral Hygiene (QC): 1 Bathin Shower/Bathe Self (QC): 1 Upper Extremity Dressin Upper Body Dressing (QC): 1 Lower Extremity Dressin Lower Body Dressing (QC): 1 On/Off Footwear (QC): 1 Toiletin Toileting Hygiene (QC): 1 Toilet/Commode Transfer: 1 Toilet Transfer (QC): 1 Assessment/Plan Assessment and Plan Assess & Plan/Chief Complaint Assessment: 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 Nesbitt at [facility] 12/07/18 Rib plating on the right Closed right scapular fracture Diabetes mellitus can-lh-yveqibu requiring insulin now improved PEG tube status and likely will DC in the next several weeks Trach dependent Anemia Hypertension DVT prophylaxis with Lovenox Neurogenic bladder requiring Zamarripa catheter and urology recommends maintained to help heal decubitus ulcer in the meantime Decubitus ulcer s/p debridement but appears to need additional debridement prn if worsens [place] Psychosis resolved with Seroquel Depression placed on Celexa Ileus-resolved Plan: Broad-spectrum antibiotics for decubitus ulcer infection which has completed Debridement per Dr. García and Dr. Craven and it appears to need additional debridement in the future until healed Wound VAC after debridement if needed Maintained on Lovenox Consult urology is appreciated but no DC cath until coccyx ulcer is healed Rehabilitation to focus on transfers and lessen burden on caretakers [facility] placement pending Medicaid but may be able to return home as he is requesting once home is prepared Removes neck brace while sleeping to aid in alleviation of discomfort causing behaviors and will await NSG recs for brace removal at his request and those xrays are being ordered today Seroquel at night Celexa in the morning Advanced diet Supplement potassium (1) Post-traumatic quadriplegia (2) Diabetes mellitus (3) Anemia (4) Anxiety (5) Chronic pain (6) Neurogenic bladder (7) HLD (hyperlipidemia) (8) Tracheostomy dependent (9) DVT prophylaxis (10) Closed right scapular fracture (11) Right rib fracture (12) Right pulmonary contusion (13) Decubitus ulcer of coccygeal region, stage 4 (14) Shock due to spinal cord injury (15) Paresthesias (16) Illicit drug use (17) Cellulitis (18) Hypertension (19) Type 2 diabetes mellitus with hyperglycemia (20) PEG (percutaneous endoscopic gastrostomy) status MARGUERITE GAN DO Jan 22, 2019 09:29
--- NOTE | 2019-01-22 10:26 | NUR ---
Mgr of Ministry Formation accomplished Leader Rounding w/ pt. He was with family. He expressed optimism and rachael. He also was complementary regarding his care here.
--- NOTE | 2019-01-22 11:10 | NUR ---
SCHOOL CROSSING GUARD SUPERVISOR sent additional SNF referrals to [facility], [facility] and [place].
--- NOTE | 2019-01-22 12:07 | Physical Therapy Daily Note ---
PT Daily Note-Current Pain Numeric Pain Scale: 0-No Pain Comment: "just numbness" Appearance Upon arrival, pt L sidelying in bed upon arrival, son at bedside. At end of session, pt supine in bed with call light, phone and bedside table within reach with pt 's son still present at bedside. Mental Status Patient Orientation: Person, Place, Time, Eyes Open, Situation Attachments: Saline Lock, Zamarripa Catheter trach, cervical immobilizer Transfers Therapy Code Descriptions/Definitions Functional [place] Measure: 0=Not Assessed/NA 4=Minimal Assistance 1=Total Assistance 5=Supervision or Setup 2=Maximal Assistance 6=Modified [place] 3=Moderate Assistance 7=Complete [place] Therapy Quality Codes: 6 Independent with activity with or without an assistive device 5 Patient requires set up or clean up by helper. Patient completes activity by themselves 4 Supervision or touching assist (CGA). [place] provide cues , steadying assist 3 The helper provides less than half the effort to complete the activity 2 The helper provides more than half the effort to complete the activity 1 Dependent. The helper does all the effort to complete an activity 7 Patient refused to complete or attempt activity 9 The patient did not perform the activity before the current illness or injury 88 Not attempted due to Medical conditions or safety concerns Transfers (B, C, W/C) (FIM): 1 Rollin bed to from w/c requiring orly lift Wheelchair Training Does the Pt Use a Wheelchair?: Yes Wheelchair (FIM): 1 Wheelchair Distance: 1=up to 49 ft Distance: 10-20' at a time Wheelchair Level of Assist: 1 Type of Wheelchair: Motorized 2 person required, pt fatigues easily, requires assist inderjit backing up as pt is unable grasp joystick to pull back and lacks strength/motion in arm Exercises Supine Ex: LE Protocol Supine Reps: 10 (PROM all LE joints) Seated Therapy Exercises: LE Protocol Seated Reps: 10 (all LE joints) Treatments Co treat with OT, bed mobility, transfer bed to motorized w/c via Orly, w/c mobility with positioning, UE and LE ROM, dressing, outdoor mobility in motorize w/c, transfer w/c to bed via Orly, bed mobility/positioning. Upon entering room, pt. verbalizes that nursing has just cleansed his david area and turned him on side. OT/PT co-treated due to level of assist needed. OT focused on ADL skills and UE ROM while PT focused on LE ROM and mobility needs. Therapy donned pants in bed with max x 2 to roll back and forth. Transferred to wheelchair via orly lift. Completed gentle PROM to bilateral UE briefly for positioning. LE ROM to increase circulation, facilitate motion and increase flexibility. Pt. is educated that therapy will be happy to educate family on PROM needs so that it can be performed when family is here. OT washed pt's hair via shampoo cap and combed hair. Pt. verbalizes that his blood sugar was low after breakfast this morning, and that he is having "blurry vision." Therapy assists him with eating approved food to assist with this. Pt. verbalizes that he feels better. Pt. practices driving power wheelchair using cindi stick with cues to shift forward. Pt. is unable to bring right UE back far enough to drive in reverse. Pt. fatigues easily and therapy assists with driving chair. Pt. taken outside for fresh air. Reclined chair for pressure relief and pt. states that he enjoys being outside. While outside, therapy talks with pt. regarding home needs and possible equipment. Pt. verbalizes that his is taking DRESS CAP MAKER classes to gain better knowledge of how to assist him at home. Will speak with social and political studies professor regarding this. Pt. taken back to room and transferred back to bed via orly lift. Providing pt with instruction and encouragement to participate with all activities and mobility as much as possible, even when he doesn't think he can do it. All needs met in room. Assessment Current Status: Good Progress PT Short Term Goals Short Term Goals Time Frame: Jan 17, 2019 Transfers (B,C,W/C) (FIM): 1 Wheelchair (FIM): 4 (if he can get a power chair) Wheelchair Distance: 800' Wheelchair Level of Assist: 4 PT Gang Pusher Goals Gang Pusher Goals PT Nursing Home Goals Time Frame: Jan 31, 2019 Transfers (B,C,W/C) (FIM): 1 Sit to Lying (QC): 1 Lying-Sitting on Side/Bed(QC): 1 Rollin Roll Left to Right (QC): 2 Chair/Oxh-yf-Pdhef Xfer(QC): 1 Car Transfer (QC): 1 Wheelchair (FIM): 5 (if he can get a power chair) Distance: 150' Wheelchair Level of Assist: 5 Wheel 50 feet with 2 turns (QC: 4 PT Plan Treatment/Plan Treatment Plan: Continue Plan of Care Treatment Plan: Bed Mobility, Concurrent Therapy, Education, Functional A ctivity [place], Functional Strength, Group Therapy, Safety, Therapeutic Exercise, Transfers Treatment Duration: Jan 31, 2019 Frequency: At least 5 of 7 days/Wk (IRF) Estimated Hrs Per Day: 1.5 hours per day Patient and/or Family Agrees t: Yes Safety Risks/Education Patient Education: W/C Management, Safety Issues Teaching Recipient: Patient Teaching Methods: Discussion Response to Teaching: Verbalize Understanding Time/GCodes Time In: 900 Time Out: 1015 Total Billed Treatment Time: 75 Total Billed Treatment 1 visit, EX x 1 unit, FA x2 units, W/C x2 units (co tx with OT) BLAYNE GARDUNO PTA Jan 22, 2019 12:07
--- NOTE | 2019-01-22 13:22 | Pulmonary Progress Note ---
Subjective Time Seen by a Provider: 13:21 Subjective/Events-last exam No complications noted. Sepsis Event Evaluation Height, Weight, BMI Height: 5'3.00" Weight: 146lbs. 9.6oz. 66.512135pg; 26.1 BMI Method:Stated Exam Exam Vital Signs Date Time Temp Pulse Resp B/P (MAP) Pulse Ox O2 Delivery O2 Flow Rate FiO2 01/22/19 10:43 96 Trach Collar 6.00 21 01/22/19 09:00 Trach Collar 01/22/19 05:34 98.4 78 18 122/78 (93) 96 Trach Collar 6.00 01/22/19 02:28 92 Trach Collar 6.00 21 01/21/19 23:12 93 Trach Collar 6.00 21 01/21/19 21:17 Trach Collar 6.00 21 01/21/19 18:30 96 Trach Collar 6.00 21 01/21/19 15:33 97.8 78 16 131/72 (91) 96 Trach Collar 6.00 01/21/19 15:12 94 Trach Collar 6.00 01/21/19 13:39 98 137/95 (109) I & O 01/22/19 07:00 Intake Total 2100 ml Output Total 2950 ml Balance -850 ml Height & Weight Height: 5'3.00" Weight: 146lbs. 9.6oz. 66.715739iy; 26.1 BMI Method:Stated General Appearance: No Apparent Distress, WD/WN, Chronically ill, Thin HEENT: PERRL/EOMI, Normal ENT Inspection, Pharynx Normal Neck: Full Range of Motion, Non Tender, Supple Respiratory: Lungs Clear, Crackles, Decreased Breath Sounds Cardiovascular: Regular Rate, Rhythm, No Edema, No Gallop Capillary Refill: Less Than 3 Seconds Gastrointestinal: normal bowel sounds, non tender, soft, no organomegaly Extremity: Normal Capillary Refill, Normal Inspection, No Pedal Edema Neurologic/Psychiatric: Alert, Oriented x3 Skin: Normal Color, Warm/Dry Lymphatic: No Adenopathy Results Lab Laboratory Tests 01/22/19 04:15 Assessment/Plan Assessment/Plan 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 Nesbitt at [facility] Tracheostomy -diflucan -SVNS with duoneb and mucomyst -Will plan on changing trach out to size 6.0 cuffless tube today Decubitus ulcer stage 4 -wound care Rib plating on the right Closed right scapular fracture Diabetes mellitus evd-du-uixgehj requiring insulin PEG tube status Anemia -Monitor Hypertension Neurogenic bladder with Zamarripa catheter Decubitus ulcer in need of debridement -Wound vac -Surgery following Illicit drug use ALONDRA HUSSEIN DO Jan 22, 2019 13:22
--- NOTE | 2019-01-22 14:18 | Speech Therapy Daily Note ---
Speech Daily Progress Note Subjective Date Seen by Provider: Jan 22, 2019 Time Seen by Provider: 00:30 The patient says he has been doing very well with his oral intake at the current level of Dysphagia I. Objective Patient completed trials of mechanical soft with moist meats without s/s of aspi ration. Assessment Assessment Current Status: Good Progress Treatment Plan Continue Plan of Care Communication Comprehension: 6 Expression: 6 Social Cognition Social Interaction: 6 Problem Solvin Memory: 4 Speech Short Term Goals Short Term Goals Short Term Goals 1) The patient will complete memory tasks related to his daily needs at 90% or greater with minimal cues. 2) The patient will complete problem solving tasks related to his daily needs at 90% or greater with minimal cues. 3) The patient will complete safety awareness tasks related to his daily needs at 90% or greater with minimal cues. 4) The patient will tolerate least restrictive diet without s/s of aspiration with 90% or greater. 5) The patient will demonstrate compliance of utilization of compensatory strategies as trained at 90% or greater with minimal cues. Speech Dielectric Embossing Machine Operator Goals Correction Goals The patient will improve his cognitive status for a safe return home. The patient will maintain adequate nutrition/hydration via safe effective swallow function and/or PEG tube. Speech-Plan Patient/Family Goals Patient/Family Goals: The patient is planning on returning home with 8 hr. daily support. (per patient) Treatment Plan Speech Therapy Treatment Plan: Continue Plan of Care The patient was upgraded to Dysphagia II today. Nursing informed. Treatment Duration: Jan 26, 2019 Frequency: 5 times per week Estimated Hrs Per Day: .5 hour per day Rehab Potential: Guarded Barriers to Learning: Patient's medical status Pt/Family Agrees to Plan: Yes Safety Risks/Education Teaching Recipient: Patient Teaching Methods: Demonstration, Discussion Response to Teaching: Verbalize Understanding, Return Demonstration Education Topics Provided: Continued safety with oral intake at the upgraded level. Time Speech Therapy Time In: 11:30 Speech Therapy Time Out: 12:00 Total Billed Time: 30 Billed Treatment Time 1LUIS DANIEL [address] Jan 22, 2019 14:18
[2019-01-22] MEDS: ENOXAPARIN 40 MG/0.4 ML (LOVENOX) SYR SC SCH (14:32)
[2019-01-22] MEDS: POTASSIUM CL 10MEQ/50ML IVPB 50 ML IV SCH ×4 (14:33→17:25)
--- NOTE | 2019-01-22 14:40 | Occupational Ther Daily Note ---
OT Current Status-Daily Note Subjective No pain reported. Appearance Pt. in bed. Agrees to work with therapy. Mental Status/Objective Patient Orientation: Person, Place Therapy Code Descriptions/Definitions Functional [place] Measure: 0=Not Assessed/NA 4=Minimal Assistance 1=Total Assistance 5=Supervision or Setup 2=Maximal Assistance 6=Modified [place] 3=Moderate Assistance 7=Complete [place] ADL-Treatment Therapy Code Descriptions/Definitions Functional [place] Measure: 0=Not Assessed/NA 4=Minimal Assistance 1=Total Assistance 5=Supervision or Setup 2=Maximal Assistance 6=Modified [place] 3=Moderate Assistance 7=Complete [place] Therapy Quality Codes: 6 Independent with activity with or without an assistive device 5 Patient requires set up or clean up by helper. Patient completes activity by themselves 4 Supervision or touching assist (CGA). Walker provide cues , steadying assist 3 The helper provides less than half the effort to complete the activity 2 The helper provides more than half the effort to complete the activity 1 Dependent. The helper does all the effort to complete an activity 7 Patient refused to complete or attempt activity 9 The patient did not perform the activity before the current illness or injury 88 Not attempted due to Medical conditions or safety concerns Grooming (FIM): 1 Lower Body Dressing (FIM): 1 Lower Body Dressing (QC): 1 On/Off Footwear (QC): 1 Transfers (B, C, W/C) (FIM): 1 Other Treatment Upon entering room, pt. verbalizes that nursing has just cleansed his david area and turned him on side. OT/PT co-treated due to level of assist needed. OT focused on ADL skills and UE ROM while PT focused on LE ROM and mobility needs. Therapy donned pants in bed with max x 2 to roll back and forth. Transferred to wheelchair via jareth lift. Completed gentle PROM to bilateral UE briefly for positioning. Pt. is educated that therapy will be happy to educate family on PROM needs so that it can be performed when family is here. OT washed pt's hair via shampoo cap and combed hair. Pt. verbalizes that his blood sugar was low after breakfast this morning, and that he is having "blurry vision." Therapy assists him with eating approved food to assist with this. Pt. verbalizes that he feels better. Pt. practices driving power wheelchair using cindi stick with cues to shift forward. Pt. is unable to bring right UE back far enough to drive in reverse. Pt. fatigues easily and therapy assists with driving chair. Pt. taken outside for fresh air. Reclined chair for pressure relief and pt. states that he enjoys being outside. While outside, therapy talks with pt. regarding home needs and possible equipment. Pt. verbalizes that his is taking FISHING WORKER classes to gain better knowledge of how to assist him at home. Will speak with certified social workers in health care regarding this. Pt. taken back to room and transferred back to bed via jareth lift. All needs met in room. Education OT Patient Education: Correct positioning, Exercise program, Modified ADL techniques, Progress toward Goal/Update tx plan, Purpose of tx/functional activities, Reviewed precautions, Rehab process, Transfer techniques, W/C management Teaching Recipient: Patient Teaching Methods: Demonstration, Discussion Response to Teaching: Verbalize Understanding, Unable to Return Demonstration OT Short Term Goals Short Term Goals Time Frame: Jan 24, 2019 Grooming(FIM): 2 (with AE) Upper Body Dressing(FIM): 2 Transfers (B,C,W/C) (FIM): 1 Additional Short Term Goals: 3-ImproveStrength/Estella 1=Demonstrate adherence to instructed precautions during ADL tasks. 2=Patient will verbalize/demonstrate understanding of assistive devices/modifications for ADL. 3=Patient will improve strength/tolerance for activity to enable patient to perform ADL's. OT Linux Unix Engineer Goals Longterm Goals Time Frame: Feb 14, 2019 Eating (FIM): 3 Eating (QC): 3 Groomin Oral Hygiene (QC): 3 Upper Body Dressing(FIM): 3 Additional Goals: 3-ImproveStrength/Estella 1=Demonstrate adherence to instructed precautions during ADL tasks. 2=Patient will verbalize/demonstrate understanding of assistive devices/modifications for ADL. 3=Patient will improve strength/tolerance for activity to enable patient to perform ADL's. OT Education/Plan Problem List/Assessment Assessment: Decreased Activ Tolerance, Decreased UE Strength, Dependent Transfers, Impaired Bed Mobility, Impaired Coordination, Impaired Funct Balance, Impaired I ADL's, Impaired Self-Care Skills, Restricted Funct UE ROM Discharge Recommendations Plan/Recommendations: Continue POC Therapy D/C Recommendations: 24 hr Supervision Treatment Plan/Plan of Care Treatment,Training & Education: Yes Patient would benefit from OT for education, treatment and training to promote independence in ADL's, mobility, safety and/or upper extremity function for ADL's. Plan of Care: ADL Retraining, Caregiver Training, Functional Mobility, Group Exercise/Act as Ind, UE Funct Exercise/Act, UE Neuromus Re-Ed/Coord, W/C Management Training Treatment Duration: Feb 14, 2019 Frequency: At least 5 of 7 days/Wk (IRF) Estimated Hrs Per Day: 1.5 hours per day Agreement: Yes Rehab Potential: Guarded Time/GCodes Start Time: 09:00 Stop Time: 10:15 Total Time Billed (hr/min): 75 Billed Treatment Time 1, ADL x 30minutes, FA x 45minutes. Co-treat with PT. Please see above note for designated roles. SHEYLA PETERSON OT Jan 22, 2019 14:40
--- NOTE | 2019-01-22 14:54 | Diagnostic Imaging Report ---
INDICATION: Cervical spine fracture. TIME OF EXAMINATION: 11:35 AM. FINDINGS: A single frontal view of the cervical spine was obtained. There are posterior cervical fixation rods and posterior element screws transfixing the C4-5 level. The hardware is unremarkable on this single view. The cervical spine alignment on this AP is unremarkable. IMPRESSION: Posterior instrumented fusion at the C4-5 level. Dictated by: Dictated on workstation # [id number]
[2019-01-22 17:15] VITALS: BP 173/84
--- NOTE | 2019-01-22 17:26 | Progress Note - Surgery ---
Subjective Date Seen by a Provider: Jan 22, 2019 Time Seen by a Provider: 09:02 Subjective/Events-last exam Patient states doing same. No new issues. Tolerating diet. No n/v. Passing flatus and bm's. Continues to have wound care performed. Objective Exam Vital Signs Date Time Temp Pulse Resp B/P (MAP) Pulse Ox O2 Delivery O2 Flow Rate FiO2 01/22/19 17:15 97.4 65 20 173/84 (113) 96 Trach Collar 6.00 01/22/19 14:34 95 Trach Collar 6.00 21 01/22/19 10:43 96 Trach Collar 6.00 21 01/22/19 09:00 Trach Collar 01/22/19 05:34 98.4 78 18 122/78 (93) 96 Trach Collar 6.00 01/22/19 02:28 92 Trach Collar 6.00 21 01/21/19 23:12 93 Trach Collar 6.00 21 01/21/19 21:17 Trach Collar 6.00 21 01/21/19 18:30 96 Trach Collar 6.00 21 I & O 01/22/19 07:00 Intake Total 2100 ml Output Total 2950 ml Balance -850 ml Capillary Refill : Less Than 3 SecondsLess Than 3 Seconds General Appearance: No Apparent Distress, WD/WN HEENT: PERRL/EOMI, Pharynx Normal Neck: Full Range of Motion, Non Tender, Supple Respiratory: Chest Non Tender, No Accessory Muscle Use, No Respiratory Distress Cardiovascular: Regular Rate, Rhythm, No Edema, No Gallop Gastrointestinal: normal bowel sounds, non tender, soft Extremity: Normal Capillary Refill, Normal Inspection, No Pedal Edema Neurologic/Psychiatric: Alert, Oriented x3 Skin: Normal Color, Warm/Dry Lymphatic: No Adenopathy Results Lab Laboratory Tests 01/21/19 20:00: Glucometer 207H 01/22/19 04:15: White Blood Count 7.5, Red Blood Count 3.56L, Hemoglobin 10.7L, Hematocrit 34L, Mean Corpuscular Volume 96, Mean Corpuscular Hemoglobin 30, Mean Corpuscular Hemoglobin Concent 32, Red Cell Distribution Width 14.8H, Platelet Count 242, Mean Platelet Volume 7.9, Neutrophils (%) (Auto) 55, Lymphocytes (%) (Auto) 28, Monocytes (%) (Auto) 15H, Eosinophils (%) (Auto) 2, Basophils (%) (Auto) 0, Neutrophils # (Auto) 4.1, Lymphocytes # (Auto) 2.1, Monocytes # (Auto) 1.1H, Eosinophils # (Auto) 0.2, Basophils # (Auto) 0.0, Sodium Level 142, Potassium Level 3.5L, Chloride Level 106, Carbon Dioxide Level 22, Anion Gap 14, Blood Urea Nitrogen 8, Creatinine 0.65, Estimat Glomerular Filtration Rate > 60, BUN/Creatinine Ratio 12, Glucose Level 78, Calcium Level 9.8, Corrected Calcium 10.4H, Total Bilirubin 0.3, Aspartate Amino Transf (AST/SGOT) 13, Alanine Aminotransferase (ALT/SGPT) 17, Alkaline Phosphatase 149H, Total Protein 8.1, Albumin 3.2 01/22/19 10:59: Glucometer 164H 01/22/19 15:26: Glucometer 204H Microbiology 01/10/19 Blood Culture - Final, Complete No growth 01/10/19 Gram Stain - Final, Complete 01/10/19 Sputum Culture - Final, Complete Usual upper respiratory aaron YEAST Assessment/Plan Assessment/Plan Assessment/Plan 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 abdominal distention improved and having function Decubitus ulcer coccyx wound care ileus-resolved Decubitus ulcer clean and dry, minimal eschar continue wound care Continue wound care, debridement prn will follow Clinical Quality Measures DVT/VTE Risk/Contraindication: Risk Factor Score Per Nursin RFS Level Per Nursing on Admit: 4+=Very High NIKOLAY SANFORD DO Jan 22, 2019 17:26
[2019-01-22] MEDS: MELATONIN 3 MG TABLET PO SCH (20:27)
[2019-01-22] MEDS: QUEtiapine 25 MG (SEROquel) TAB IMMEDIATE RELEASE PO SCH (20:27)
[2019-01-22] MEDS: MONTELUKAST 10 MG (SINGULAIR) TAB PO SCH (20:27)
[2019-01-23] MEDS: aCETylcysteine 20% (MUCOMYST) 30ML SOLN VIAL INH SCH ×5 (03:06→19:38)
[2019-01-23] MEDS: RT-ALBUTEROL/IPRATROPIUM 3 ML (DUONEB) VIAL INH SCH ×5 (03:06→19:38)
[2019-01-23] MEDS: inSUlin ASPART (NovoLOG) 1 UNIT/0.01 ML (CHARGE PER UNIT) SC SCH ×4 (05:54→21:01)
[2019-01-23] MEDS: KCL 10 MEQ TAB (MICRO K) PO SCH (05:56)
[2019-01-23] MEDS: guaiFENesin SYRUP 100 MG/5 ML 10 ML (ROBITUSSIN SF) PEG SCH ×3 (05:56→21:30)
[2019-01-23] MEDS: ALPRAZolam 0.5 MG (XANAX) TAB PEG PRN ×2 (05:56→08:55)
[2019-01-23 06:34] VITALS: BP 98/66
--- NOTE | 2019-01-23 06:46 | PM&R Progress Note ---
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 He was unable to maintain his airway. He was intubated at the scene. He was assessed in the ER by Dr. Vaughan trauma surgeon found to have significant hypotension requiring aggressive IV fluids and pressor therapy but then was assessed that he was likely an spinal cord shock and multiple right rib fractures with flail chest requiring transfer to [facility] trauma surgery which resulted in multiple procedures including tracheostomy due to failing weaning protocol on ventilator, PEG tube placement, spine MRIs confirming C3-C7 spinal cord injury complete with plating of ribs 510 on the right side and right sided chest tube. He was found to have drug screen positive for marijuana and methamphetamine. Neurosurgery was consulted perform decompressive laminectomy on C3-C7 with C4-C5 autograft bone screws and rods. He was diagnosed with Haemophilus influenza while intubated and that treatment was completed. He did have rhabdomyolysis from his injuries requiring aggressive IV fluids but they all resolved. Hyperglycemia was diagnosed and he was started on insulin and elevated liver enzymes have improved since admission and hepatitis viral panel along with HIV were negative. He did receive 2 units of packed red blood cells hospitalized. Currently patient is requiring wound care consult by Dr. Craven and general surgery consultation by Dr. García because additional debridement of the sacral decubitus ulcer will be required. He will remain with the c-collar in place until seen Dr. Nesbitt on 01/30/19. Hemoglobin today is 10.1. Dr. Arcos's been consulted for pulmonary issues which she is having increased secretions today in addition urology will be consulted for Zamarripa catheter maintenance for neurogenic bladder. I did speak with Dr. Arcos who will panculture the patient and change breathing treatments to clear secretions. Patient remains total care with quadriplegia. Subjective/Events-last exam Very pleasant this morning as usual. States his bowels are moving well. Feels great about advancing his diet and is glad to have new foods. Shoulders are hurting him, but changing the bed stiffness is helping. Trach decannulation went well, but neck brace feels pressured against neck. This has been occurring since he began wearing it. Slept well. Feels positive about his progress. Glucometer 169 at 2047. Lungs clear bilaterally on auscultation. Spoke with Ana regarding barriers to returning home or to a care home. Group Home Barriers: 1. No insurance - Medicaid and Disability are pending. Medicaid takes 45-60 days minimum for approval. Application submitted December 18 so at least 2-4 weeks for approval. - Issue with Medicaid is the minimal reimbursement for services - Costs for care and supplies are limiting his placement d/t reimbursement 2. Trach (care and supplies) 3. Wound care (care and supplies) 4. PEG tube (care and supplies) 5. Lift system - 2 people to transfer - Bed and mattress Home Barriers: 1. Lift system - 2 people to transfer - Bed and mattress 2. Bed baths 3. Family trained to provide care + safety of procedures 4. Additional clinical trials assistant during the day to help 5. Ramp to get into the house, space for equipment Home Care and Supplies are both paid for via Medicaid. Limited family support to help /sons, financial burden, and being able to appropriately provide care causes limitations for going home. Social influences in the house are limiting as well. One way to improve placement probability would be to decannulate the pt. He is unable to cough up secretions on his own so that also contributes to barriers. Another consideration is the mental wellbeing of the patient. His family lacks funds to travel to visit which could hinder his progress in a facility. It could also provide a danger to the patient if they want to take him home but are unable to care for him. [place] [facility] [place] and [facility]. [place] Medicaid only applies in [place], so facilities in [place] are not an option. She is concerned with the distance to facilities so that the family can still visit him. Objective Exam Vital Signs Vital Signs Date Time Temp Pulse Resp B/P (MAP) Pulse Ox O2 Delivery O2 Flow Rate FiO2 01/23/19 10:55 92 Room Air 01/23/19 06:39 6.00 21 01/23/19 06:34 99.1 83 20 98/66 (77) Capillary Refill : Less Than 3 SecondsLess Than 3 Seconds General Appearance: No Apparent Distress, WD/WN HEENT: PERRL/EOMI, Pharynx Normal Neck: Full Range of Motion, Non Tender, Supple Respiratory: Chest Non Tender, No Accessory Muscle Use, No Respiratory Distress Cardiovascular: Regular Rate, Rhythm, No Edema, No Gallop Gastrointestinal: Normal Bowel Sounds, No Organomegaly, No Pulsatile Mass, Non Tender, Soft, Other (PEG in place) Back: Normal Inspection, No CVA Tenderness, No Vertebral Tenderness Extremity: Normal Capillary Refill, Normal Inspection, No Pedal Edema Neurologic/Psychiatric: Alert, Oriented x3 Skin: Normal Color, Warm/Dry Lymphatic: No Adenopathy Results/Procedures Lab Patient resulted labs reviewed. Radiology Cervical XR demonstrated a C4-C5 fusion, but no other abnormalities noted. FIM Transfers Therapy Code Descriptions/Definitions Functional [place] Measure: 0=Not Assessed/NA 4=Minimal Assistance 1=Total Assistance 5=Supervision or Setup 2=Maximal Assistance 6=Modified [place] 3=Moderate Assistance 7=Complete [place] Therapy Quality Codes: 6 Independent with activity with or without an assistive device 5 Patient requires set up or clean up by helper. Patient completes activity by themselves 4 Supervision or touching assist (CGA). [place] provide cues , steadying assist 3 The helper provides less than half the effort to complete the activity 2 The helper provides more than half the effort to complete the activity 1 Dependent. The helper does all the effort to complete an activity 7 Patient refused to complete or attempt activity 9 The patient did not perform the activity before the current illness or injury 88 Not attempted due to Medical conditions or safety concerns Transfers (B, C, W/C) (FIM): 1 Scootin Rollin Roll Left to Right (QC): 1 Supine to/from Sit: 1 Sit to/from Stand: 1 Sit to Lying (QC): 1 Chair/[id number] Xfer(QC): 1 Bed to/from Chair: 1 Car Transfer (QC): 1 Gait Training Does the Patient Walk?: No and Walking Goal NOT indicated Wheelchair Training Does the Pt Use a Wheelchair?: Yes Wheelchair (FIM): 4 Wheelchair Distance: 3=150 ft (150,100) Distance: 800' Wheelchair Level of Assist: 4 Type of Wheelchair: Motorized Mental Status/Objective Comprehension: 6 Expression: 6 Social Interaction: 6 Problem Solvin Memory: 4 ADL-Treatment Feedin Eating (QC): 1 Groomin Oral Hygiene (QC): 1 Bathin Shower/Bathe Self (QC): 1 Upper Extremity Dressin Upper Body Dressing (QC): 1 Lower Extremity Dressin Lower Body Dressing (QC): 1 On/Off Footwear (QC): 1 Toiletin Toileting Hygiene (QC): 1 Toilet/Commode Transfer: 1 Toilet Transfer (QC): 1 Assessment/Plan Assessment and Plan Assess & Plan/Chief Complaint Assessment: 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 Nesbitt at [facility] 12/07/18 Rib plating on the right Closed right scapular fracture Diabetes mellitus [id number] requiring insulin now improved PEG tube status and likely will DC in the next several weeks Trach dependent Anemia Hypertension DVT prophylaxis with Lovenox Neurogenic bladder requiring Zamarripa catheter and urology recommends maintained to help heal decubitus ulcer in the meantime Decubitus ulcer s/p debridement but appears to need additional debridement prn if worsens [place] Psychosis resolved with Seroquel Depression placed on Celexa Ileus-resolved Plan: Debridement per Dr. García and Dr. Craven and it appears to need additional debridement in the future until healed Wound VAC after debridement if needed Maintained on Lovenox Consult urology is appreciated but no DC cath until coccyx ulcer is healed Rehabilitation to focus on transfers and lessen burden on caretakers group home placement pending Medicaid Removes neck brace while sleeping to aid in alleviation of discomfort causing behaviors and will await NS recs for brace removal at his request Seroquel at night Celexa in the morning Advanced diet Supplement potassium (1) Spinal cord injury at C1-C4 level (2) Elevated blood pressure reading (3) Septic prepatellar bursitis of left knee (4) septic bursa (5) Hospital discharge follow-up (6) Anemia (7) Anxiety (8) Chronic pain (9) Neurogenic bladder (10) HLD (hyperlipidemia) (11) Tracheostomy dependent (12) DVT prophylaxis (13) Post-traumatic quadriplegia (14) Closed right scapular fracture (15) Right rib fracture (16) Right pulmonary contusion (17) Decubitus ulcer of coccygeal region, stage 4 (18) Shock due to spinal cord injury (19) Diabetes mellitus (20) Paresthesias (21) Uncontrolled diabetes mellitus (22) Illicit drug use (23) Cellulitis (24) Hyperglycemia (25) Sepsis (26) Hypertension (27) Type 2 diabetes mellitus with hyperglycemia (28) PEG (percutaneous endoscopic gastrostomy) status PAOLA GAN DO 01/23/191928: Subjective Subjective/Events-last exam Advanced diet with speech therapy approval Bowels are regular Dr. Nesbitt ordered the X-rays through my order set and will send those reports to Dr. Nesbitt so hopefully we can remove the neck brace which will be a fantastic improvement for the pt Capping the speaking valve after the small trach was placed yesterday which had no difficulties Slept well last night Shoulder pain persists but it's doing okay and the bed position is helping Had a 99.1 temperature but lungs are clear Will complete IV antibiotics of Zosyn and Diflucan BP is varied he is on Midodrine for spinal cord injury hypotension but I did set parameters to hold if it becomes elevated Review of Systems General: Fatigue Neurological: Weakness, Numbness, Incoordination Objective Exam General Appearance: No Apparent Distress, WD/WN, Chronically ill Respiratory: Chest Non Tender, Lungs Clear, Normal Breath Sounds, No Accessory Muscle Use, No Respiratory Distress Cardiovascular: Regular Rate, Rhythm, No Edema, No Gallop, No JVD, No Murmur, Normal Peripheral Pulses Neurologic/Psychiatric: Motor Weakness (chest and below neurological deficit) Skin: Normal Color, Warm/Dry Assessment/Plan Assessment and Plan Assess & Plan/Chief Complaint Awaiting placement Insurance pending Patient stable and doing better Check neck xrays per Dr Nesbitt recs to see when we can DC neck brace (1) Spinal cord injury at C1-C4 level (2) Anemia (3) Anxiety (4) Chronic pain (5) Neurogenic bladder (6) HLD (hyperlipidemia) (7) Tracheostomy dependent (8) DVT prophylaxis (9) Post-traumatic quadriplegia (10) Closed right scapular fracture (11) Right rib fracture (12) Right pulmonary contusion (13) Decubitus ulcer of coccygeal region, stage 4 (14) Shock due to spinal cord injury (15) Diabetes mellitus (16) Elevated blood pressure reading (17) Hospital discharge follow-up (18) Septic prepatellar bursitis of left knee (19) septic bursa (20) Paresthesias (21) Uncontrolled diabetes mellitus (22) Illicit drug use (23) Cellulitis (24) Hyperglycemia (25) Sepsis (26) Hypertension (27) Type 2 diabetes mellitus with hyperglycemia (28) PEG (percutaneous endoscopic gastrostomy) status Supervisory-Addendum Brief Verification & Attestation Time: Verification & Attestat.: 09:00 Participated in pt care: history, MDM, physical Personally performed: exam, history, MDM, supervision of care Care discussed with: Medical Student Procedures: n/a Results interpretation: Verified all documentation Verification and Attestation of Medical Student E/M Service A medical student performed and documented this service in my presence. I reviewed and verified all information documented by the medical student and made modifications to such information, when appropriate. I personally performed the physical exam and medical decision making. Paola Gan, Jan 23, 2019,19:29 LUH MACHADO, Jan 23, 2019 06:46 PAOLA GAN DO Jan 23, 2019 19:29
--- NOTE | 2019-01-23 07:59 | Progress Note - Surgery ---
JUICE SAMSON,MED STUDENT 01/23/19 0759: Subjective Date Seen by a Provider: Jan 23, 2019 Time Seen by a Provider: 07:45 Subjective/Events-last exam Pt tolerating advanced diet. + bowel movements. Denies nausea/vomiting, chest pain, sob, fever/chills. No family at bedside.Hgb slightly decreased from last. Pt has no new complaints at this time. Review of Systems General: No Chills, No Night Sweats Pulmonary: No Dyspnea Cardiovascular: No: Chest Pain Gastrointestinal: No: Nausea, Vomiting, Abdominal Pain Objective Exam Vital Signs Date Time Temp Pulse Resp B/P (MAP) Pulse Ox O2 Delivery O2 Flow Rate FiO2 01/23/19 06:39 93 Trach Collar 6.00 21 01/23/19 06:34 99.1 83 20 98/66 (77) 95 Trach Collar 6.00 01/22/19 23:20 93 Trach Collar 6.00 21 01/22/19 21:00 Trach Collar 01/22/19 19:11 93 Trach Collar 6.00 21 01/22/19 17:15 97.4 65 20 173/84 (113) 96 Trach Collar 6.00 01/22/19 14:34 95 Trach Collar 6.00 21 01/22/19 10:43 96 Trach Collar 6.00 21 01/22/19 09:00 Trach Collar I & O 01/23/19 07:00 Intake Total 1320 ml Output Total 3200 ml Balance -1880 ml Capillary Refill : Less Than 3 SecondsLess Than 3 Seconds General Appearance: No Apparent Distress, WD/WN HEENT: PERRL/EOMI, Pharynx Normal Neck: Non Tender, Supple, Other (trachea collar ) Respiratory: Chest Non Tender, No Accessory Muscle Use, No Respiratory Distress Cardiovascular: Regular Rate, Rhythm Gastrointestinal: normal bowel sounds, non tender, soft, distended (mildly distended) Extremity: Normal Inspection Neurologic/Psychiatric: Alert, Oriented x3, Other (LE paralysis ) Skin: Normal Color, Warm/Dry Lymphatic: No Adenopathy Results Lab Laboratory Tests 01/22/19 10:59: Glucometer 164H 01/22/19 15:26: Glucometer 204H 01/22/19 20:48: Glucometer 169H 01/23/19 05:49: Glucometer 97 Microbiology 01/10/19 Blood Culture - Final, Complete No growth 01/10/19 Gram Stain - Final, Complete 01/10/19 Sputum Culture - Final, Complete Usual upper respiratory aaron YEAST Assessment/Plan Assessment/Plan Assessment/Plan 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 abdominal distention improved and having function Decubitus ulcer coccyx wound care ileus-resolved Decubitus ulcer clean and dry, minimal eschar continue wound care Continue wound care, debridement prn will follow Clinical Quality Measures DVT/VTE Risk/Contraindication: Risk Factor Score Per Nursin RFS Level Per Nursing on Admit: 4+=Very High NIKOLAY JAMES DO 01/23/19 1709: Subjective Subjective/Events-last exam No new complaints. Denies n/v fever sweats chills shortness of breath or chest pain. Objective Exam Neck: Other (trachea collar ) Gastrointestinal: distended (mildly distended) Skin: Other (decubitus ulcer slight eschar present superior part of wound) Assessment/Plan Assessment/Plan Assessment/Plan likely debridement at bedside tomorrow, continue wound care Supervisory-Addendum Brief Verification & Attestation Time: Verification & Attestat.: 17:08 Participated in pt care: history, MDM, physical Personally performed: exam, history, MDM, supervision of care Care discussed with: Medical Student Procedures: n/a Results interpretation: Verified all documentation Verification and Attestation of Medical Student E/M Service A medical student performed and documented this service in my presence. I reviewed and verified all information documented by the medical student and made modifications to such information, when appropriate. I personally performed the physical exam and medical decision making. Nikolay James, Jan 23, 2019,17:09 JUICE SAMSON,MED STUDENT Jan 23, 2019 07:59 NIKOLAY JAMES DO Jan 23, 2019 17:09
--- NOTE | 2019-01-23 08:07 | Pulmonary Progress Note ---
Subjective Time Seen by a Provider: 08:06 Subjective/Events-last exam No complications noted. Pt states he likes small trach tube better. Sepsis Event Evaluation Height, Weight, BMI Height: 5'3.00" Weight: 146lbs. 9.6oz. 66.085766eh; 26.1 BMI Method:Stated Exam Exam Vital Signs Date Time Temp Pulse Resp B/P (MAP) Pulse Ox O2 Delivery O2 Flow Rate FiO2 01/23/19 06:39 93 Trach Collar 6.00 21 01/23/19 06:34 99.1 83 20 98/66 (77) 95 Trach Collar 6.00 01/22/19 23:20 93 Trach Collar 6.00 21 01/22/19 21:00 Trach Collar 01/22/19 19:11 93 Trach Collar 6.00 21 01/22/19 17:15 97.4 65 20 173/84 (113) 96 Trach Collar 6.00 01/22/19 14:34 95 Trach Collar 6.00 21 01/22/19 10:43 96 Trach Collar 6.00 01/22/19 09:00 Trach Collar I & O 01/23/19 07:00 Intake Total 1320 ml Output Total 3200 ml Balance -1880 ml Height & Weight Height: 5'3.00" Weight: 146lbs. 9.6oz. 66.889156ag; 26.1 BMI Method:Stated General Appearance: No Apparent Distress, WD/WN HEENT: PERRL/EOMI, Pharynx Normal Neck: Non Tender, Supple, Other (trachea collar ) Respiratory: Chest Non Tender, No Accessory Muscle Use, No Respiratory Distress Cardiovascular: Regular Rate, Rhythm Capillary Refill: Less Than 3 Seconds Gastrointestinal: normal bowel sounds, non tender, soft, distended (mildly distended) Extremity: Normal Inspection Neurologic/Psychiatric: Alert, Oriented x3, Other (LE paralysis ) Skin: Normal Color, Warm/Dry Lymphatic: No Adenopathy Results Lab Laboratory Tests 01/22/19 04:15 Assessment/Plan Assessment/Plan 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 Nesbitt at [facility] Tracheostomy -Diflucan -SVNS with duoneb and mucomyst -trach changed to size 6.0 cuffless tube today -Will cap trach this AM Decubitus ulcer stage 4 -wound care Rib plating on the right Closed right scapular fracture Diabetes mellitus [id number] requiring insulin PEG tube status Anemia -Monitor Hypertension Neurogenic bladder with Zamarripa catheter Decubitus ulcer in need of debridement -Wound vac -Surgery following Illicit drug use ALONDRA HUSSEIN DO Jan 23, 2019 08:07
[2019-01-23] MEDS: POT PHOS/NA PHOS (K-PHOS NEUTRAL) PO SCH ×2 (08:54→20:58)
[2019-01-23] MEDS: LORATADINE (CLARITIN) 10 MG TAB PO SCH (08:55)
[2019-01-23] MEDS: FAMOTIDINE 20 MG (PEPCID) TABLET PO SCH ×2 (08:56→20:59)
[2019-01-23] MEDS: SENNA W/DOCUSATE (SENOKOT S) TABLET PO SCH ×2 (08:56→20:59)
[2019-01-23] MEDS: MIDODRINE 10 MG (PROAMATINE) TAB PO SCH ×3 (08:57→20:59)
[2019-01-23] MEDS: FLUCONAZOLE 200 MG/100 ML 50 ML, EMPTY IV BAG (PVC) 1 EA IV SCH ×2 (08:58)
--- NOTE | 2019-01-23 10:21 | NUR ---
[employer] received calls from [facility] and [facility] with denials for admission. Addendum: 01/23/19 at 1500 by DEYANIRA RIVERA SS [employer] sent additional referrals to [facility], [facility], [facility] and [facility] Fischer in [place]. [employer] received contact from [facility] with denial due to lack of bed availability. Addendum: 01/23/19 at 1550 by DEYANIRA RIVERA SS Autumn Baptiste from the [facility] is present for onsite interview for HCBS services.
--- NOTE | 2019-01-23 10:37 | Physical Therapy Daily Note ---
PT Daily Note-Current Subjective Pt sitting up in bed upon arrival. Pt agrees to PT/OT co-treat due to medical condition of pt, weakness & fatigue. Pain Numeric Pain Scale: 7 Location: Right, Left Location Body Site: Arm Pain Description: Ache, Tightness Mental Status Patient Orientation: Person, Place, Time, Situation Attachments: Zamarripa Catheter, Other-See Comments (Cervical Collar) Transfers Therapy Code Descriptions/Definitions Functional [place] Measure: 0=Not Assessed/NA 4=Minimal Assistance 1=Total Assistance 5=Supervision or Setup 2=Maximal Assistance 6=Modified [place] 3=Moderate Assistance 7=Complete [place] Therapy Quality Codes: 6 Independent with activity with or without an assistive device 5 Patient requires set up or clean up by helper. Patient completes activity by themselves 4 Supervision or touching assist (CGA). [place] provide cues , steadying assist 3 The helper provides less than half the effort to complete the activity 2 The helper provides more than half the effort to complete the activity 1 Dependent. The helper does all the effort to complete an activity 7 Patient refused to complete or attempt activity 9 The patient did not perform the activity before the current illness or injury 88 Not attempted due to Medical conditions or safety concerns Scootin Rollin Roll Left to Right (QC): 1 Supine to/from Sit: 1 Chair/Ckz-rv-Bvios Xfer(QC): 1 Bed to/from Chair: 1 Exercises Supine Ex: Ankle pumps, Quad Set, Heel Slides, Straight leg raise, Hip abd/add Supine Reps: 15 (PROM for EX, occasional AAROM) Treatments Pt. in bed. Agrees to work with OT/PT. Co-treatment performed due to pt's need for skilled assistance. OT completed UE PROM in all planes to bilateral UE. Completed muscle stimulation to bicep and triceps to activate motion. Pt. demonstrates active bicep flexion but poor tricep extension. Worked on tendinis movement with wrist extension, which is poor but has slightly increased. PT completed LE PROM to all joints. OT/PT completed sponge bath at bed level with OT facilitating ADL skills while PT focused on transfer and movement. Transferred to reclining chair in room via jareth lift. Provided ROHO cushion in chair and transferred pt. to chair. Pt. taken to therapy dining area to provide more gentle stretch to joints. Chair is reclined so that there is no pressure on coccyx area. Pt. taken back to room and all needs met. Assessment Current Status: Fair Progress Pt continues to try to move during EX but very limited movement in both UE & LE. Pt did report some feeling when SUPERVISOR CONTINGENTS assists with L LE EX. PT Short Term Goals Short Term Goals Time Frame: Jan 17, 2019 Transfers (B,C,W/C) (FIM): 1 Wheelchair (FIM): 4 (if he can get a power chair) Wheelchair Distance: 10-20' at a time Wheelchair Level of Assist: 4 PT Jail Goals Jail Goals PT Jail Goals Time Frame: Jan 31, 2019 Transfers (B,C,W/C) (FIM): 1 Sit to Lying (QC): 1 Lying-Sitting on Side/Bed(QC): 1 Rollin Roll Left to Right (QC): 2 Chair/Xfi-ke-Mprif Xfer(QC): 1 Car Transfer (QC): 1 Wheelchair (FIM): 5 (if he can get a power chair) Distance: 150' Wheelchair Level of Assist: 5 Wheel 50 feet with 2 turns (QC: 4 PT Plan Problem List Problem List: Activity Tolerance, Functional Strength, Safety, Balance, Gait, Transfer, Bed Mobility, ROM Treatment/Plan Treatment Plan: Continue Plan of Care Treatment Plan: Bed Mobility, Concurrent Therapy, Education, Functional Activity Estella, Functional Strength, Group Therapy, Safety, Therapeutic Exercise, Transfers Treatment Duration: Jan 31, 2019 Frequency: At least 5 of 7 days/Wk (IRF) Estimated Hrs Per Day: 1.5 hours per day Patient and/or Family Agrees t: Yes Safety Risks/Education Patient Education: Transfer Techniques, Correct Positioning, Safety Issues Teaching Recipient: Patient Teaching Methods: Discussion Response to Teaching: Verbalize Understanding Time/GCodes Time In: 900 Time Out: 1015 Total Billed Treatment Time: 75 Total Billed Treatment 1, EX x2 (30m), FA x3 (45m) Co-treat for 60m with OT ([id number]) G Codes Necessary: LESLIE Hoyos SUPERVISOR CONTINGENTS Jan 23, 2019 10:37
--- NOTE | 2019-01-23 14:23 | Occupational Ther Daily Note ---
OT Current Status-Daily Note Subjective No pain reported. Appearance Pt. in bed. Agrees to work with therapy. Mental Status/Objective Patient Orientation: Person, Place Therapy Code Descriptions/Definitions Functional [place] Measure: 0=Not Assessed/NA 4=Minimal Assistance 1=Total Assistance 5=Supervision or Setup 2=Maximal Assistance 6=Modified [place] 3=Moderate Assistance 7=Complete [place] ADL-Treatment Therapy Code Descriptions/Definitions Functional [place] Measure: 0=Not Assessed/NA 4=Minimal Assistance 1=Total Assistance 5=Supervision or Setup 2=Maximal Assistance 6=Modified [place] 3=Moderate Assistance 7=Complete [place] Therapy Quality Codes: 6 Independent with activity with or without an assistive device 5 Patient requires set up or clean up by helper. Patient completes activity by themselves 4 Supervision or touching assist (CGA). [place] provide cues , steadying assist 3 The helper provides less than half the effort to complete the activity 2 The helper provides more than half the effort to complete the activity 1 Dependent. The helper does all the effort to complete an activity 7 Patient refused to complete or attempt activity 9 The patient did not perform the activity before the current illness or injury 88 Not attempted due to Medical conditions or safety concerns Grooming (FIM): 1 Upper Body (FIM): 1 Upper Body Dressing (QC): 1 Lower Body Dressing (FIM): 1 Lower Body Dressing (QC): 1 On/Off Footwear (QC): 1 Toileting (FIM): 1 Toileting Hygiene (QC): 1 Transfers (B, C, W/C) (FIM): 1 Other Treatment Pt. in bed. Agrees to work with OT/PT. Co-treatment performed due to pt's need for skilled assistance. OT completed UE PROM in all planes to bilateral UE. Completed muscle stimulation to bicep and triceps to activate motion. Pt. demonstrates active bicep flexion but poor tricep extension. Worked on tendinis movement with wrist extension, which is poor but has slightly increased. PT completed LE PROM to all joints. OT/PT completed sponge bath at bed level with OT facilitating ADL skills while PT focused on transfer and movement. Transferred to reclining chair in room via jareth lift. Provided ROHO cushion in chair and transferred pt. to chair. Pt. taken to therapy dining area to provide more gentle stretch to joints. Chair is reclined so that there is no pressure on coccyx area. Pt. taken back to room and all needs met. Education OT Patient Education: Correct positioning, Exercise program, Modified ADL techniques, Progress toward Goal/Update tx plan, Purpose of tx/functional activities, Reviewed precautions, Rehab process, Transfer techniques Teaching Recipient: Patient Teaching Methods: Demonstration, Discussion Response to Teaching: Verbalize Understanding, Return Demonstration OT Short Term Goals Short Term Goals Time Frame: Jan 24, 2019 Grooming(FIM): 2 (with AE) Upper Body Dressing(FIM): 2 Transfers (B,C,W/C) (FIM): 1 Additional Short Term Goals: 3-ImproveStrength/Estella 1=Demonstrate adherence to instructed precautions during ADL tasks. 2=Patient will verbalize/demonstrate understanding of assistive devices/modifications for ADL. 3=Patient will improve strength/tolerance for activity to enable patient to perform ADL's. OT Hotel General Manager Goals Hotel General Manager Goals Time Frame: Feb 14, 2019 Eating (FIM): 3 Eating (QC): 3 Groomin Oral Hygiene (QC): 3 Upper Body Dressing(FIM): 3 Additional Goals: 3-ImproveStrength/Estella 1=Demonstrate adherence to instructed precautions during ADL tasks. 2=Patient will verbalize/demonstrate understanding of assistive devices/modifications for ADL. 3=Patient will improve strength/tolerance for activity to enable patient to perform ADL's. OT Education/Plan Problem List/Assessment Assessment: Decreased Activ Tolerance, Decreased UE Strength, Dependent Transfers, Impaired Bed Mobility, Impaired Coordination, Impaired Funct Balance, Impaired I ADL's, Impaired Self-Care Skills, Restricted Funct UE ROM Discharge Recommendations Plan/Recommendations: Continue POC Therapy D/C Recommendations: 24 hr Supervision Treatment Plan/Plan of Care Treatment,Training & Education: Yes Patient would benefit from OT for education, treatment and training to promote independence in ADL's, mobility, safety and/or upper extremity function for ADL's. Plan of Care: ADL Retraining, Caregiver Training, Functional Mobility, Group Exercise/Act as Ind, UE Funct Exercise/Act, UE Neuromus Re-Ed/Coord, W/C Management Training Treatment Duration: Feb 14, 2019 Frequency: At least 5 of 7 days/Wk (IRF) Estimated Hrs Per Day: 1.5 hours per day Agreement: Yes Rehab Potential: Guarded Time/GCodes Start Time: 09:20 Stop Time: 10:35 Total Time Billed (hr/min): 75 Billed Treatment Time 1, ADL x 45minutes, Ex x 30minutes Co-treat with PT. Please see above note for designated roles. SHEYLA PETERSON OT Jan 23, 2019 14:23
[2019-01-23] MEDS: ENOXAPARIN 40 MG/0.4 ML (LOVENOX) SYR SC SCH (15:04)
--- NOTE | 2019-01-23 15:04 | Speech Therapy Daily Note ---
Speech Daily Progress Note Subjective Date Seen by Provider: Jan 23, 2019 Time Seen by Provider: 00:30 The patient was sitting in his recliner and was ready for his lunch when I entered the room. Objective The patient consumed a Dysphagia II diet level without s/s of aspiration at 100%. Assessment Assessment Current Status: Good Progress Treatment Plan Continue Plan of Care Communication Comprehension: 6 Expression: 6 Social Cognition Social Interaction: 6 Problem Solvin Memory: 4 Speech Short Term Goals Short Term Goals Short Term Goals 1) The patient will complete memory tasks related to his daily needs at 90% or greater with minimal cues. 2) The patient will complete problem solving tasks related to his daily needs at 90% or greater with minimal cues. 3) The patient will complete safety awareness tasks related to his daily needs at 90% or greater with minimal cues. 4) The patient will tolerate least restrictive diet without s/s of aspiration with 90% or greater. 5) The patient will demonstrate compliance of utilization of compensatory strategies as trained at 90% or greater with minimal cues. Speech Detention Goals Detention Goals The patient will improve his cognitive status for a safe return home. The patient will maintain adequate nutrition/hydration via safe effective swallow function and/or PEG tube. Speech-Plan Patient/Family Goals Patient/Family Goals: The patient plans on returning home within the next 2 weeks with in home assistance. Treatment Plan Speech Therapy Treatment Plan: Continue Plan of Care The patient has made good progress with oral intake and the upgrade in diet. Treatment Duration: Feb 02, 2019 Frequency: 5 times per week Estimated Hrs Per Day: .5 hour per day Rehab Potential: Guarded Barriers to Learning: The patient's medical status, however he is progressing well Pt/Family Agrees to Plan: Yes Safety Risks/Education Teaching Recipient: Patient Teaching Methods: Demonstration, Discussion Response to Teaching: Verbalize Understanding, Return Demonstration Education Topics Provided: Continuing to utilize compensatory strategies as trained for all oral intake. Time Speech Therapy Time In: 11:30 Speech Therapy Time Out: 12:00 Total Billed Time: 30 Billed Treatment Time TimLUIS DANIEL BETHANIA ST Jan 23, 2019 15:04
[2019-01-23 16:48] VITALS: BP 128/82
--- NOTE | 2019-01-23 18:17 | Diagnostic Imaging Report ---
EXAMINATION: Cervical spine radiographs, 3 views including flexion and extension. COMPARISON: January 22, 2019. CT head and cervical spine December 07, 2018. HISTORY: 53-year-old male, followup placement of hardware. FINDINGS: There is mild grade 1 anterolisthesis of C4 on C5 in neutral positioning measuring 2.5 mm. This improves with flexion and persists with extension. This measures approximately 2.5 mm in extension. There is grade 1 retrolisthesis of C5 on C6 measuring roughly 2 mm in extension which has resolved in flexion and does remain in neutral positioning. There are multilevel disc degenerative changes of the cervical spine with laminectomy changes at multiple levels. The cervical spine hardware spans C4-C5. There is moderate disc height loss at C5-C6 and C6-C7 with anterior and posterior osteophytes at these levels. IMPRESSION: 1. Posterior cervical spinal fusion hardware spanning C4-C5. 2. Anterolisthesis of C4 on C5 and retrolisthesis of C5 on C6 which improves on flexion and is maintained in extension. Dictated by: Dictated on workstation # [id number]
[2019-01-23 20:56] VITALS: BP 116/5
[2019-01-23] MEDS: MONTELUKAST 10 MG (SINGULAIR) TAB PO SCH (20:58)
[2019-01-23] MEDS: QUEtiapine 25 MG (SEROquel) TAB IMMEDIATE RELEASE PO SCH (20:58)
[2019-01-23] MEDS: ALPRAZolam 0.5 MG (XANAX) TAB PO PRN (20:58)
[2019-01-23] MEDS: MELATONIN 3 MG TABLET PO SCH (20:59)
[2019-01-24] MEDS: aCETylcysteine 20% (MUCOMYST) 30ML SOLN VIAL INH SCH ×4 (00:06→21:39)
[2019-01-24] MEDS: RT-ALBUTEROL/IPRATROPIUM 3 ML (DUONEB) VIAL INH SCH ×5 (00:06→21:39)
[2019-01-24 02:10] VITALS: BP 77/47
[2019-01-24] MEDS: APAP 325 MG/10.15 ML LIQ (TYLENOL) UDC PO PRN ×2 (02:16→08:38)
[2019-01-24] MEDS: MIDODRINE 10 MG (PROAMATINE) TAB PO SCH ×4 (02:26→20:26)
[2019-01-24 03:17] VITALS: BP 109/70
[2019-01-24 05:50] VITALS: BP 123/77
[2019-01-24] MEDS: inSUlin ASPART (NovoLOG) 1 UNIT/0.01 ML (CHARGE PER UNIT) SC SCH ×4 (06:18→20:26)
[2019-01-24] MEDS: guaiFENesin SYRUP 100 MG/5 ML 10 ML (ROBITUSSIN SF) PEG SCH ×3 (06:36→21:08)
[2019-01-24] MEDS: KCL 10 MEQ TAB (MICRO K) PO SCH (06:36)
[2019-01-24] MEDS: ALPRAZolam 0.5 MG (XANAX) TAB PEG PRN ×2 (06:38→17:56)
--- NOTE | 2019-01-24 07:53 | PM&R Progress Note ---
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 He was unable to maintain his airway. He was intubated at the scene. He was assessed in the ER by Dr. Vaughan trauma surgeon found to have significant hypotension requiring aggressive IV fluids and pressor therapy but then was assessed that he was likely an spinal cord shock and multiple right rib fractures with flail chest requiring transfer to [facility] trauma surgery which resulted in multiple procedures including tracheostomy due to failing weaning protocol on ventilator, PEG tube placement, spine MRIs confirming C3-C7 spinal cord injury complete with plating of ribs 510 on the right side and right sided chest tube. He was found to have drug screen positive for marijuana and methamphetamine. Neurosurgery was consulted perform decompressive laminectomy on C3-C7 with C4-C5 autograft bone screws and rods. He was diagnosed with Haemophilus influenza while intubated and that treatment was completed. He did have rhabdomyolysis from his injuries requiring aggressive IV fluids but they all resolved. Hyperglycemia was diagnosed and he was started on insulin and elevated liver enzymes have improved since admission and hepatitis viral panel along with HIV were negative. He did receive 2 units of packed red blood cells hospitalized. Currently patient is requiring wound care consult by Dr. Craven and general surgery consultation by Dr. García because additional debridement of the sacral decubitus ulcer will be required. He will remain with the c-collar in place until seen Dr. Nesbitt on 01/30/19. Hemoglobin today is 10.1. Dr. Arcos's been consulted for pulmonary issues which she is having increased secretions today in addition urology will be consulted for Zamarripa catheter maintenance for neurogenic bladder. I did speak with Dr. Arcos who will panculture the patient and change breathing treatments to clear secretions. Patient remains total care with quadriplegia. Subjective/Events-last exam Pt is having daily bowel movements with no complaints. Trach size decrease is going well. Feels like he can speak and breathe better after decrease in size. Eating well and gaining weight. He is very happy about gaining weight. Did not sleep well due to shoulder pain. Increasing pillow number helped with pain. Was wanting to order breakfast and eat. Mentioned he stopped smoking after accident and feels like that is going well. Дмитрий carranza was wanting to stop prior to the event and this sped that process along. Vitals stable. Cervical XR demonstrated anterolisthesis of C4 on C5, retrolisthesis of C5 on C6, and degenerative changes. Will forward to Dr. Nesbitt and receive information regarding length of time for neck brace. Lungs sound clear bilaterally on auscultation. Objective Exam Vital Signs Vital Signs Date Time Temp Pulse Resp B/P (MAP) Pulse Ox O2 Delivery O2 Flow Rate FiO2 01/24/19 05:50 97.4 67 20 123/77 (92) 97 Room Air 01/23/19 06:39 6.00 21 Capillary Refill : Less Than 3 SecondsLess Than 3 Seconds General Appearance: No Apparent Distress, WD/WN, Chronically ill HEENT: PERRL/EOMI, Pharynx Normal Neck: Other (trachea collar ) Respiratory: Chest Non Tender, Lungs Clear, Normal Breath Sounds, No Accessory Muscle Use, No Respiratory Distress Cardiovascular: Regular Rate, Rhythm, No Edema, No Gallop, No JVD, No Murmur, Normal Peripheral Pulses Gastrointestinal: Normal Bowel Sounds, No Organomegaly, No Pulsatile Mass, Non Tender, Soft, Other (PEG in place) Back: Normal Inspection, No CVA Tenderness, No Vertebral Tenderness Extremity: Normal Capillary Refill, Normal Inspection, No Pedal Edema Neurologic/Psychiatric: Motor Weakness (chest and below neurological deficit) Skin: Normal Color, Warm/Dry Lymphatic: No Adenopathy Results/Procedures Lab Patient resulted labs reviewed. FIM Transfers Therapy Code Descriptions/Definitions Functional [place] Measure: 0=Not Assessed/NA 4=Minimal Assistance 1=Total Assistance 5=Supervision or Setup 2=Maximal Assistance 6=Modified [place] 3=Moderate Assistance 7=Complete [place] Therapy Quality Codes: 6 Independent with activity with or without an assistive device 5 Patient requires set up or clean up by helper. Patient completes activity by themselves 4 Supervision or touching assist (CGA). [place] provide cues , steadying assist 3 The helper provides less than half the effort to complete the activity 2 The helper provides more than half the effort to complete the activity 1 Dependent. The helper does all the effort to complete an activity 7 Patient refused to complete or attempt activity 9 The patient did not perform the activity before the current illness or injury 88 Not attempted due to Medical conditions or safety concerns Transfers (B, C, W/C) (FIM): 1 Scootin Rollin Roll Left to Right (QC): 1 Supine to/from Sit: 1 Sit to/from Stand: 1 Sit to Lying (QC): 1 Chair/Ajk-je-Ydpku Xfer(QC): 1 Bed to/from Chair: 1 Car Transfer (QC): 1 Gait Training Does the Patient Walk?: No and Walking Goal NOT indicated Wheelchair Training Does the Pt Use a Wheelchair?: Yes Wheelchair (FIM): 1 Wheelchair Distance: 1=up to 49 ft Distance: 10-20' at a time Wheelchair Level of Assist: 1 Type of Wheelchair: Motorized Mental Status/Objective Comprehension: 6 Expression: 6 Social Interaction: 6 Problem Solvin Memory: 4 ADL-Treatment Feedin Eating (QC): 1 Groomin Oral Hygiene (QC): 1 Bathin Shower/Bathe Self (QC): 1 Upper Extremity Dressin Upper Body Dressing (QC): 1 Lower Extremity Dressin Lower Body Dressing (QC): 1 On/Off Footwear (QC): 1 Toiletin Toileting Hygiene (QC): 1 Toilet/Commode Transfer: 1 Toilet Transfer (QC): 1 Assessment/Plan Assessment and Plan Assess & Plan/Chief Complaint Assessment: 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 Nesbitt at [facility] 12/07/18 Rib plating on the right Closed right scapular fracture Diabetes mellitus [id number] requiring insulin now improved PEG tube status and likely will DC in the next several weeks Trach dependent Anemia Hypertension DVT prophylaxis with Lovenox Neurogenic bladder requiring Zamarripa catheter and urology recommends maintained to help heal decubitus ulcer in the meantime Decubitus ulcer s/p debridement but appears to need additional debridement prn if worsens [place] Psychosis resolved with Seroquel Depression placed on Celexa Ileus-resolved Plan: Debridement per Dr. García and Dr. Craven and it appears to need additional debridement in the future until healed Wound VAC after debridement if needed Maintained on Lovenox Consult urology is appreciated but no DC cath until coccyx ulcer is healed Rehabilitation to focus on transfers and lessen burden on caretakers detention placement pending Medicaid Removes neck brace while sleeping to aid in alleviation of discomfort causing behaviors and will await NSG recs for brace removal at his request Seroquel at night Celexa in the morning Advanced diet Supplement potassium Stop Diflucan 08.08 (1) Spinal cord injury at C1-C4 level (2) Anemia (3) Anxiety (4) Chronic pain (5) Neurogenic bladder (6) HLD (hyperlipidemia) (7) Tracheostomy dependent (8) DVT prophylaxis (9) Post-traumatic quadriplegia (10) Closed right scapular fracture (11) Right rib fracture (12) Right pulmonary contusion (13) Decubitus ulcer of coccygeal region, stage 4 (14) Shock due to spinal cord injury (15) Diabetes mellitus (16) Elevated blood pressure reading (17) Hospital discharge follow-up (18) Septic prepatellar bursitis of left knee (19) septic bursa (20) Paresthesias (21) Uncontrolled diabetes mellitus (22) Illicit drug use (23) Cellulitis (24) Hyperglycemia (25) Sepsis (26) Hypertension (27) Type 2 diabetes mellitus with hyperglycemia (28) PEG (percutaneous endoscopic gastrostomy) status BANDAR GANMic WHITEHEAD 01/24/192037: Subjective Subjective/Events-last exam Zosyn was discontinued. Diflucan will be discontinued on 01/25/19. Refused stool treatment because of loose stools. Decubitus ulcer will be debrided tomorrow by Dr. James. Decannulation of the trach is really helping his talking and breathing and he does have a cap. Eating well. Out of the room more and less isolated. Eight nursing homes have denied admission to this patient. Wheelchair navigation is going very well with the movement of his right hand and right arm. Review of Systems General: Fatigue Neurological: Weakness, Numbness, Incoordination Objective Exam General Appearance: No Apparent Distress, WD/WN, Chronically ill Respiratory: Chest Non Tender, Lungs Clear, Normal Breath Sounds, No Accessory Muscle Use, No Respiratory Distress Cardiovascular: Regular Rate, Rhythm Neurologic/Psychiatric: Motor Weakness (chest and below neurological deficit) Assessment/Plan Assessment and Plan Assess & Plan/Chief Complaint Reviewed assessment and plan above DC PEG in next 6 weeks Continue to wean down trach and DC once he can handle his secretions NHP once approved (1) Spinal cord injury at C1-C4 level (2) Anemia (3) Anxiety (4) Chronic pain (5) Neurogenic bladder (6) HLD (hyperlipidemia) (7) Tracheostomy dependent (8) DVT prophylaxis (9) Post-traumatic quadriplegia (10) Closed right scapular fracture (11) Right rib fracture (12) Right pulmonary contusion (13) Decubitus ulcer of coccygeal region, stage 4 (14) Shock due to spinal cord injury (15) Diabetes mellitus (16) Elevated blood pressure reading (17) Hospital discharge follow-up (18) Septic prepatellar bursitis of left knee (19) septic bursa (20) Paresthesias (21) Uncontrolled diabetes mellitus (22) Illicit drug use (23) Cellulitis (24) Hyperglycemia (25) Sepsis (26) Hypertension (27) Type 2 diabetes mellitus with hyperglycemia (28) PEG (percutaneous endoscopic gastrostomy) status Supervisory-Addendum Brief Verification & Attestation Time: Verification & Attestat.: 08:30 Participated in pt care: history, MDM, physical Personally performed: exam, history, MDM, supervision of care Care discussed with: Medical Student Procedures: n/a Results interpretation: Verified all documentation Verification and Attestation of Medical Student E/M Service A medical student performed and documented this service in my presence. I reviewed and verified all information documented by the medical student and made modifications to such information, when appropriate. I personally performed the physical exam and medical decision making. Paola Gan, Jan 24, 2019,20:35 LUH MACHADO, Jan 24, 2019 07:53 PAOLA GAN DO Jan 24, 2019 20:38
[2019-01-24] MEDS: POT PHOS/NA PHOS (K-PHOS NEUTRAL) PO SCH ×2 (08:11→20:25)
[2019-01-24] MEDS: SENNA W/DOCUSATE (SENOKOT S) TABLET PO SCH ×3 (08:11→20:26)
[2019-01-24] MEDS: FAMOTIDINE 20 MG (PEPCID) TABLET PO SCH ×2 (08:11→20:25)
[2019-01-24] MEDS: LORATADINE (CLARITIN) 10 MG TAB PO SCH (08:11)
[2019-01-24] MEDS: FLUCONAZOLE 200 MG/100 ML 50 ML, EMPTY IV BAG (PVC) 1 EA IV SCH ×2 (08:12)
--- NOTE | 2019-01-24 11:07 | Occupational Ther Daily Note ---
OT Current Status-Daily Note Subjective No pain reported. Appearance Pt. in bed. Agrees to therapy treatment. Mental Status/Objective Patient Orientation: Person, Place Therapy Code Descriptions/Definitions Functional [place] Measure: 0=Not Assessed/NA 4=Minimal Assistance 1=Total Assistance 5=Supervision or Setup 2=Maximal Assistance 6=Modified [place] 3=Moderate Assistance 7=Complete [place] Attachments: IV ADL-Treatment Therapy Code Descriptions/Definitions Functional [place] Measure: 0=Not Assessed/NA 4=Minimal Assistance 1=Total Assistance 5=Supervision or Setup 2=Maximal Assistance 6=Modified [place] 3=Moderate Assistance 7=Complete [place] Therapy Quality Codes: 6 Independent with activity with or without an assistive device 5 Patient requires set up or clean up by helper. Patient completes activity by themselves 4 Supervision or touching assist (CGA). [place] provide cues , steadying assist 3 The helper provides less than half the effort to complete the activity 2 The helper provides more than half the effort to complete the activity 1 Dependent. The helper does all the effort to complete an activity 7 Patient refused to complete or attempt activity 9 The patient did not perform the activity before the current illness or injury 88 Not attempted due to Medical conditions or safety concerns Grooming (FIM): 1 Bathing (FIM): 1 Shower/Bathe Self (QC): 1 Upper Body (FIM): 1 Upper Body Dressing (QC): 1 Lower Body Dressing (FIM): 1 Lower Body Dressing (QC): 1 On/Off Footwear (QC): 1 Toileting (FIM): 1 (Pt. incontinet of BM) Toileting Hygiene (QC): 1 Transfers (B, C, W/C) (FIM): 1 Other Treatment Completed OT/PT co-treat due to need of skilled intervention with pt. OT focused on UE ROM and ADLs while PT assessed mobility and wheelchair management. OT/PT completed sponge bath, david care, and dressing at bed level. Encouraged pt. to assist as possible with rolling in bed. Dependent assist x 2 needed. Nursing assessed wound while therapy facilitated rolling and transfers. Transferred to power wheelchair via jareth. Re-applied makeshift joystick and pt. able to engage triceps on right UE to push joystick forward. Pt. able to drive chair to elevator. Assisted pt. with getting onto elevator via wheelchair. Went outside for fresh air. Pt. verbalized enjoying this. OT completed gentle PROM to bilateral UE in all planes, while PT facilitated PROM to bilateral LE. Completed this outside. Came back to room and pt. put in tilt in space position with call light. RT in to give pt. breathing treatment and nursing notified that pt up in chair, and would let them know when he would like to go back. Education OT Patient Education: Correct positioning, Exercise program, Modified ADL techniques, Progress toward Goal/Update tx plan, Purpose of tx/functional activities, Reviewed precautions, Rehab process, Transfer techniques Teaching Recipient: Patient Teaching Methods: Demonstration, Discussion Response to Teaching: Verbalize Understanding, Return Demonstration OT Short Term Goals Short Term Goals Time Frame: Jan 24, 2019 Grooming(FIM): 2 (with AE) Upper Body Dressing(FIM): 2 Transfers (B,C,W/C) (FIM): 1 Additional Short Term Goals: 3-ImproveStrength/Estella 1=Demonstrate adherence to instructed precautions during ADL tasks. 2=Patient will verbalize/demonstrate understanding of assistive barbara ana/modifications for ADL. 3=Patient will improve strength/tolerance for activity to enable patient to perform ADL's. OT Skilled Nursing Goals Skilled Nursing Goals Time Frame: Feb 14, 2019 Eating (FIM): 3 Eating (QC): 3 Groomin Oral Hygiene (QC): 3 Upper Body Dressing(FIM): 3 Additional Goals: 3-ImproveStrength/Estella 1=Demonstrate adherence to instructed precautions during ADL tasks. 2=Patient will verbalize/demonstrate understanding of assistive devices/modifications for ADL. 3=Patient will improve strength/tolerance for activity to enable patient to perform ADL's. OT Education/Plan Problem List/Assessment Assessment: Decreased Activ Tolerance, Decreased UE Strength, Dependent Transfers, Impaired Bed Mobility, Impaired Coordination, Impaired Funct Balance, Impaired I ADL's, Impaired Self-Care Skills, Restricted Funct UE ROM Discharge Recommendations Plan/Recommendations: Continue POC Therapy D/C Recommendations: 24 hr Supervision Treatment Plan/Plan of Care Treatment,Training & Education: Yes Patient would benefit from OT for education, treatment and training to promote independence in ADL's, mobility, safety and/or upper extremity function for ADL's. Plan of Care: ADL Retraining, Caregiver Training, Functional Mobility, Group Exercise/Act as Ind, UE Funct Exercise/Act, UE Neuromus Re-Ed/Coord, W/C Management Training Treatment Duration: Feb 14, 2019 Frequency: At least 5 of 7 days/Wk (IRF) Estimated Hrs Per Day: 1.5 hours per day Agreement: Yes Rehab Potential: Guarded Time/GCodes Start Time: 09:00 Stop Time: 10:20 Total Time Billed (hr/min): 80 Billed Treatment Time 1, ADL x 30minutes, FA x 50minutes SHEYLA PETERSON OT Jan 24, 2019 11:07
--- NOTE | 2019-01-24 11:27 | NUR ---
[employer] faxed cervical x-ray reports to Dr. Nesbitt at [place] to inquire about further recommendations. Addendum: 01/24/19 at 1141 by DEYANIRA RIVERA SS INSTALLER INSPECTOR FINAL contacted [facility], [facility] and [facility] to follow-up on referrals. Facilities had not made a determination at this time. Addendum: 01/24/19 at 1506 by DEYANIRA RIVERA SS Patient declined for placement at [facility]. Addendum: 01/24/19 at 1639 by DEYANIRA HELM INSTALLER INSPECTOR FINAL received call from [facility], they are unable to accept due to financial constraints.
--- NOTE | 2019-01-24 12:47 | Physical Therapy Daily Note ---
PT Daily Note-Current Subjective Pt laying Supine, pillows positioning upon arrival. Pt agrees to PT/OT co- treat. Mental Status Patient Orientation: Person, Place, Situation Attachments: PEG Tube, Other-See Comments (Cervical Collar), IV Transfers Therapy Code Descriptions/Definitions Functional [place] Measure: 0=Not Assessed/NA 4=Minimal Assistance 1=Total Assistance 5=Supervision or Setup 2=Maximal Assistance 6=Modified [place] 3=Moderate Assistance 7=Complete [place] Therapy Quality Codes: 6 Independent with activity with or without an assistive device 5 Patient requires set up or clean up by helper. Patient completes activity by themselves 4 Supervision or touching assist (CGA). [place] provide cues , steadying assist 3 The helper provides less than half the effort to complete the activity 2 The helper provides more than half the effort to complete the activity 1 Dependent. The helper does all the effort to complete an activity 7 Patient refused to complete or attempt activity 9 The patient did not perform the activity before the current illness or injury 88 Not attempted due to Medical conditions or safety concerns Scootin Rollin Roll Left to Right (QC): 1 Supine to/from Sit: 1 Sit to/from Stand: 1 Sit to Lying (QC): 1 Sit to Stand (QC): 1 Chair/Kzv-rf-Ebcuq Xfer(QC): 1 Bed to/from Chair: 1 Gait Training Does the Patient Walk?: No and Walking Goal NOT indicated Wheelchair Training Does the Pt Use a Wheelchair?: Yes Wheelchair Distance: 3=150 ft Distance: 350+' Wheelchair Level of Assist: 3 Wheel 50 ft with 2 turns (QC): 4 Wheel 150 ft (QC): 3 Type of Wheelchair: Motorized Exercises Seated Therapy Exercises: Ankle pumps, Long arc quads, Hip flexion, Kicking activity Seated Reps: 15 (PROM for all Seated Ex) Treatments Completed OT/PT co-treat due to need of skilled intervention with pt. OT focused on UE ROM and ADLs while PT assessed mobility and wheelchair management. OT/PT completed sponge bath, david care, and dressing at bed level. Encouraged pt. to assist as possible with rolling in bed. Dependent assist x 2 needed. Nursing assessed wound while therapy facilitated rolling and transfers. Transferred to power wheelchair via jareth. Re-applied makeshift joystick and pt. able to engage triceps on right UE to push joystick forward. Pt. able to drive chair to elevator. Assisted pt. with getting onto elevator via wheelchair. Went outside for fresh air. Pt. verbalized enjoying this. OT completed gentle PROM to bilateral UE in all planes, while PT facilitated PROM to bilateral LE. Completed this outside. Came back to room and pt. put in tilt in space position with call light. RT in to give pt. breathing treatment and nursing notified that pt up in chair, and would let them know when he would like to go back. Assessment Current Status: Good Progress Pt continues to try to move as much as possible. PT Short Term Goals Short Term Goals Time Frame: Jan 17, 2019 Transfers (B,C,W/C) (FIM): 1 Wheelchair (FIM): 4 (if he can get a power chair) Wheelchair Distance: 10-20' at a time Wheelchair Level of Assist: 4 PT Nursing Home Goals Cast Iron Dipper Goals PT Nursing Home Goals Time Frame: Jan 31, 2019 Transfers (B,C,W/C) (FIM): 1 Sit to Lying (QC): 1 Lying-Sitting on Side/Bed(QC): 1 Rollin Roll Left to Right (QC): 2 Chair/Fgf-xy-Ryedv Xfer(QC): 1 Car Transfer (QC): 1 Wheelchair (FIM): 5 (if he can get a power chair) Distance: 150' Wheelchair Level of Assist: 5 Wheel 50 feet with 2 turns (QC: 4 PT Plan Problem List Problem List: Activity Tolerance, Functional Strength, Safety, Balance, Gait, Transfer, Bed Mobility, ROM Treatment/Plan Treatment Plan: Continue Plan of Care Treatment Plan: Bed Mobility, Concurrent Therapy, Education, Functional Activity Estella, Functional Strength, Group Therapy, Safety, Therapeutic Exercise, Transfers Treatment Duration: Jan 31, 2019 Frequency: At least 5 of 7 days/Wk (IRF) Estimated Hrs Per Day: 1.5 hours per day Patient and/or Family Agrees t: Yes Safety Risks/Education Patient Education: Correct Positioning, Safety Issues Teaching Recipient: Patient Teaching Methods: Discussion Response to Teaching: Verbalize Understanding Time/GCodes Time In: 900 Time Out: 1020 Total Billed Treatment Time: 80 Total Billed Treatment 1, EX (15m), FA x3 (45m) & WCH (20m) G Codes Necessary: LESLIE Hoyos FAN MAIL EDITOR Jan 24, 2019 12:47
--- NOTE | 2019-01-24 13:55 | Pulmonary Progress Note ---
Subjective Time Seen by a Provider: 13:53 Subjective/Events-last exam PT feels improved. Sepsis Event Evaluation Height, Weight, BMI Height: 5'3.00" Weight: 146lbs. 9.6oz. [id number]; 26.1 BMI Method:Stated Exam Exam Vital Signs Date Time Temp Pulse Resp B/P (MAP) Pulse Ox O2 Delivery O2 Flow Rate FiO2 01/24/19 10:23 95 Room Air 01/24/19 08:00 Room Air 01/24/19 05:50 97.4 67 20 123/77 (92) 97 Room Air 01/24/19 03:51 95 Room Air 01/24/19 03:17 64 109/70 (83) 01/24/19 02:10 66 77/47 (57) 01/23/19 21:00 Room Air 01/23/19 19:39 92 Room Air 01/23/19 16:48 99.0 76 16 128/82 (97) 94 Room Air 01/23/19 14:28 91 Room Air I & O 01/24/19 07:00 Intake Total 2360 ml Output Total 2800 ml Balance -440 ml Height & Weight Height: 5'3.00" Weight: 146lbs. 9.6oz. 66.104997yl; 26.1 BMI Method:Stated General Appearance: No Apparent Distress, WD/WN, Chronically ill HEENT: PERRL/EOMI, Pharynx Normal Neck: Other (trachea collar ) Respiratory: Chest Non Tender, Lungs Clear, Normal Breath Sounds, No Accessory Muscle Use, No Respiratory Distress Cardiovascular: Regular Rate, Rhythm, No Edema, No Gallop, No JVD, No Murmur, Normal Peripheral Pulses Capillary Refill: Less Than 3 Seconds Gastrointestinal: distended (mildly distended) Extremity: Normal Capillary Refill, Normal Inspection, No Pedal Edema Neurologic/Psychiatric: Motor Weakness (chest and below neurological deficit) Skin: Normal Color, Warm/Dry Lymphatic: No Adenopathy Assessment/Plan Assessment/Plan 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 Nesbitt at [facility] Tracheostomy -Diflucan -SVNS with DuoNeb and Mucomyst -trach changed to size 6.0 cuffless tube today -Will cap trach this AM Decubitus ulcer stage 4 -wound care Rib plating on the right Closed right scapular fracture Diabetes mellitus [id number] requiring insulin PEG tube status Anemia -Monitor Hypertension Neurogenic bladder with Zamarripa catheter Decubitus ulcer in need of debridement -Wound vac -Surgery following Illicit drug use ALONDRA HUSSEIN DO Jan 24, 2019 13:55
[2019-01-24] MEDS: ENOXAPARIN 40 MG/0.4 ML (LOVENOX) SYR SC SCH (14:41)
--- NOTE | 2019-01-24 15:06 | Speech Therapy Daily Note ---
Speech Daily Progress Note Subjective Date Seen by Provider: Jan 24, 2019 Time Seen by Provider: 00:30 The patient was c/o phlegm caught in his throat that he needed suctioned before he could eat his lunch. Objective Patient completed recall of information for events over the past 24 hours with 70% accuracy with moderate verbal cues and repetitions. Assessment Assessment Current Status: Good Progress Communication Comprehension: 6 Expression: 6 Social Cognition Social Interaction: 6 Problem Solvin Memory: 4 Speech Short Term Goals Short Term Goals Short Term Goals 1) The patient will complete memory tasks related to his daily needs at 90% or greater with minimal cues. 2) The patient will complete problem solving tasks related to his daily needs at 90% or greater with minimal cues. 3) The patient will complete safety awareness tasks related to his daily needs at 90% or greater with minimal cues. 4) The patient will tolerate least restrictive diet without s/s of aspiration with 90% or greater. 5) The patient will demonstrate compliance of utilization of compensatory strategies as trained at 90% or greater with minimal cues. Speech Alf Goals Alf Goals The patient will improve his cognitive status for a safe return home. The patient will maintain adequate nutrition/hydration via safe effective sw allow function and/or PEG tube. Speech-Plan Patient/Family Goals Patient/Family Goals: The patient wants to return home by his 's b'day on 12/03/18. Treatment Plan Speech Therapy Treatment Plan: Continue Plan of Care Patient is progressing well with ST goals. Treatment Duration: Feb 02, 2019 Frequency: 5 times per week Estimated Hrs Per Day: .5 hour per day Rehab Potential: Guarded Barriers to Learning: Patient's medical status, decreased cognitive function Pt/Family Agrees to Plan: Yes Safety Risks/Education Teaching Recipient: Patient Teaching Methods: Demonstration, Discussion Response to Teaching: Verbalize Understanding, Return Demonstration Education Topics Provided: Continued safety and communication of needs. Time Speech Therapy Time In: 11:45 Speech Therapy Time Out: 12:15 Total Billed Time: 30 Billed Treatment Time FELIPE Dumont [facility] Jan 24, 2019 15:06
--- NOTE | 2019-01-24 17:18 | NUR ---
As PAPER GUILLOTINE OPERATOR has received several local SNF denials, PAPER GUILLOTINE OPERATOR has requested family to begin training with therapy and nursing staff, as a local facility may not be possible and patient and family have stated that they will proceed with home vs. long distance placement. Spouse states she will be available for family training tomorrow at 10am. PAPER GUILLOTINE OPERATOR informed therapy staff. PAPER GUILLOTINE OPERATOR also contacted Jeanine at [employer] to inquire about the equipment order, she states they will plan to deliver to patient's home tomorrow; however, if it is raining they will postpone delivery until next Tuesday.
[2019-01-24 17:26] VITALS: BP 182/83
--- NOTE | 2019-01-24 18:34 | Progress Note - Surgery ---
LESLIE LIGHT,MED STUDENT 01/24/19 1834: Subjective Date Seen by a Provider: Jan 24, 2019 Time Seen by a Provider: 18:00 Subjective/Events-last exam Pt tolerating advanced diet. + bowel movements. Denies nausea/vomiting, chest pain, sob, fever/chills. Family at bedside. Pt has no new complaints at this time. Review of Systems General: No Chills Cardiovascular: No: Chest Pain Gastrointestinal: No: Nausea, Vomiting, Abdominal Pain, Constipation Objective Exam Vital Signs Date Time Temp Pulse Resp B/P (MAP) Pulse Ox O2 Delivery O2 Flow Rate FiO2 01/24/19 17:26 97.6 62 20 182/83 (116) 97 Room Air 01/24/19 15:17 97 01/24/19 10:23 95 Room Air 01/24/19 08:00 Room Air 01/24/19 05:50 97.4 67 20 123/77 (92) 97 Room Air 01/24/19 03:51 95 Room Air 01/24/19 03:17 64 109/70 (83) 01/24/19 02:10 66 77/47 (57) 01/23/19 21:00 Room Air 01/23/19 19:39 92 Room Air I & O 01/24/19 07:00 Intake Total 2360 ml Output Total 2800 ml Balance -440 ml Capillary Refill : Less Than 3 SecondsLess Than 3 Seconds General Appearance: No Apparent Distress, WD/WN, Chronically ill HEENT: PERRL/EOMI, Pharynx Normal Neck: Other (trachea collar ) Respiratory: Chest Non Tender, Lungs Clear, Normal Breath Sounds, No Accessory Muscle Use, No Respiratory Distress Cardiovascular: Regular Rate, Rhythm, No Edema, No Gallop, No JVD, No Murmur, Normal Peripheral Pulses Gastrointestinal: distended (mildly distended) Extremity: Normal Capillary Refill, Normal Inspection, No Pedal Edema Neurologic/Psychiatric: Alert, Oriented x3, Normal Mood/Affect, Motor Weakness (chest and below neurological deficit) Skin: Normal Color, Warm/Dry, Other (decubitus ulcer coccyx) Lymphatic: No Adenopathy Results Lab Laboratory Tests 01/23/19 21:01: Glucometer 173H 01/24/19 05:54: Glucometer 109 01/24/19 10:54: Glucometer 141H 01/24/19 15:18: Glucometer 98 Microbiology 01/10/19 Blood Culture - Final, Complete No growth 01/10/19 Gram Stain - Final, Complete 01/10/19 Sputum Culture - Final, Complete Usual upper respiratory aaron YEAST Assessment/Plan Assessment/Plan Assessment/Plan 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 abdominal distention improved and having function Decubitus ulcer coccyx wound care ileus-resolved Decubitus ulcer clean and dry, minimal eschar continue wound care Continue wound care, debridement prn will follow PROCEDURE: Prepped in sterile fashion. Sharp debridement with #10 blade scalpel to remove eschar of wound total measurement of 3x3.5cm from subcutaneous layer down to healthy bleeding tissue. Wound packed and padded with kerlix. Patient tolerated well. Clinical Quality Measures DVT/VTE Risk/Contraindication: Risk Factor Score Per Nursin RFS Level Per Nursing on Admit: 4+=Very High NIKOLAY JAMES DO 01/24/19 1857: Subjective Subjective/Events-last exam Doing well. No new complaints. Denies n/v fever sweats chills shortness of breath or chest pain. Objective Exam General Appearance: No Apparent Distress HEENT: PERRL/EOMI Neck: Supple, Other (trachea collar ) Respiratory: Chest Non Tender, No Accessory Muscle Use, No Respiratory Distress Cardiovascular: Regular Rate, Rhythm Gastrointestinal: soft, distended (mildly distended) Extremity: Normal Capillary Refill, Normal Inspection Neurologic/Psychiatric: Alert, Oriented x3 Skin: Normal Color, Other (decubitus ulcer coccyx, eschar in wound no surrounding erythema) Assessment/Plan Assessment/Plan Assessment/Plan 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 abdominal distention improved and having function Decubitus ulcer coccyx wound care ileus-resolved Decubitus ulcer dry with eschar continue wound care Continue wound care, debridement today at bedside will follow PROCEDURE: Prepped in sterile fashion. Sharp debridement with #10 blade scalpel to remove skin and subcutaneous tissue with eschar of wound total measurement of 3x3.5cm from skin/subcutaneous layer down to healthy bleeding tissue. Wound packed and padded with kerlix. Patient tolerated well. Supervisory-Addendum Brief Verification & Attestation Time: Verification & Attestat.: 18:56 Participated in pt care: history, MDM, physical Personally performed: exam, history, MDM, supervision of care Care discussed with: Medical Student Procedures: n/a Results interpretation: Verified all documentation Verification and Attestation of Medical Student E/M Service A medical student performed and documented this service in my presence. I reviewed and verified all information documented by the medical student and made modifications to such information, when appropriate. I personally performed the physical exam and medical decision making. Nikolay James, Jan 24, 2019,18:56 LESLIE LIGHT,MED STUDENT Jan 24, 2019 18:34 NIKOLAY JAMES DO Jan 24, 2019 18:57
[2019-01-24] MEDS: MONTELUKAST 10 MG (SINGULAIR) TAB PO SCH (20:25)
[2019-01-24] MEDS: MELATONIN 3 MG TABLET PO SCH (20:25)
[2019-01-24] MEDS: QUEtiapine 25 MG (SEROquel) TAB IMMEDIATE RELEASE PO SCH (20:25)
[2019-01-24] MEDS: ALPRAZolam 0.5 MG (XANAX) TAB PO PRN (20:25)
[2019-01-25] MEDS: APAP 325 MG/10.15 ML LIQ (TYLENOL) UDC PO PRN (00:14)
[2019-01-25] MEDS: RT-ALBUTEROL/IPRATROPIUM 3 ML (DUONEB) VIAL INH SCH ×5 (03:14→21:25)
[2019-01-25] MEDS: inSUlin ASPART (NovoLOG) 1 UNIT/0.01 ML (CHARGE PER UNIT) SC SCH ×4 (05:33→20:44)
[2019-01-25 05:40] VITALS: BP 108/69
[2019-01-25] MEDS: aCETylcysteine 20% (MUCOMYST) 30ML SOLN VIAL INH SCH ×2 (06:27→16:40)
[2019-01-25] MEDS: KCL 10 MEQ TAB (MICRO K) PO SCH (06:33)
[2019-01-25] MEDS: guaiFENesin SYRUP 100 MG/5 ML 10 ML (ROBITUSSIN SF) PEG SCH ×3 (06:33→20:07)
[2019-01-25 08:00] VITALS: BP 86/56
--- NOTE | 2019-01-25 08:00 | NUR ---
DR. GAN NOTIFIED THAT DR. ARCHULTEA SAID PATIENT COULD GO TO SOFT COLLAR AND ORDER OBTAINED FOR SOFT COLLAR. SON AT BEDSIDE. HYPOTENSIVE AND WILL CONTINUE TO MONITOR.
[2019-01-25] MEDS: FAMOTIDINE 20 MG (PEPCID) TABLET PO SCH ×2 (08:54→20:07)
[2019-01-25] MEDS: LORATADINE (CLARITIN) 10 MG TAB PO SCH (08:55)
[2019-01-25] MEDS: SENNA W/DOCUSATE (SENOKOT S) TABLET PO SCH ×2 (08:56→20:08)
[2019-01-25] MEDS: FLUCONAZOLE 200 MG/100 ML 50 ML, EMPTY IV BAG (PVC) 1 EA IV SCH ×2 (08:59)
[2019-01-25] MEDS: MIDODRINE 10 MG (PROAMATINE) TAB PO SCH ×4 (09:03→20:07)
--- NOTE | 2019-01-25 09:18 | PM&R Progress Note ---
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 He was unable to maintain his airway. He was intubated at the scene. He was assessed in the ER by Dr. Vaughan trauma surgeon found to have significant hypotension requiring aggressive IV fluids and pressor therapy but then was assessed that he was likely an spinal cord shock and multiple right rib fractures with flail chest requiring transfer to [facility] trauma surgery which resulted in multiple procedures including tracheostomy due to failing weaning protocol on ventilator, PEG tube placement, spine MRIs confirming C3-C7 spinal cord injury complete with plating of ribs 510 on the right side and right sided chest tube. He was found to have drug screen positive for marijuana and methamphetamine. Neurosurgery was consulted perform decompressive laminectomy on C3-C7 with C4-C5 autograft bone screws and rods. He was diagnosed with Haemophilus influenza while intubated and that treatment was completed. He did have rhabdomyolysis from his injuries requiring aggressive IV fluids but they all resolved. Hyperglycemia was diagnosed and he was started on insulin and elevated liver enzymes have improved since admission and hepatitis viral panel along with HIV were negative. He did receive 2 units of packed red blood cells hospitalized. Currently patient is requiring wound care consult by Dr. Craven and general surgery consultation by Dr. García because additional debridement of the sacral decubitus ulcer will be required. He will remain with the c-collar in place until seen Dr. Nesbitt on 01/30/19. Hemoglobin today is 10.1. Dr. Arcos's been consulted for pulmonary issues which she is having increased secretions today in addition urology will be consulted for Zamarripa catheter maintenance for neurogenic bladder. I did speak with Dr. Arcos who will panculture the patient and change breathing treatments to clear secretions. Patient remains total care with quadriplegia. Subjective/Events-last exam Subjective/Events - Last Exam: Pleasant this morning. Pt did not sleep well last night. Shoulder pain throughout the night that required frequent position adjustments. Adding pillows helped him but only for a short period of time. Had extra Colace 2 nights ago, so had 4 bowel movements 01/24. Denies any other pain other than shoulders. No n/v. Trach cap was slipping, RT fixed. Eating well and tolerating advanced diet. Wound care 01/24 went well. 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 Nesbitt at [facility] 12/07/18 Rib plating on the right Closed right scapular fracture Diabetes mellitus [id number] requiring insulin now improved PEG tube status and likely will DC in the next several weeks Trach dependent Anemia Hypertension DVT prophylaxis with Lovenox Neurogenic bladder requiring Zamarripa catheter and urology recommends maintained to help heal decubitus ulcer in the meantime Decubitus ulcer s/p debridement but appears to need additional debridement prn if worsens OJ Psychosis resolved with Seroquel Depression placed on Celexa Ileus-resolved Plan: Reduce midodrine dosage Debridement per Dr. García and Dr. Craven and it appears to need additional debridement in the future until healed Wound VAC after debridement if needed Maintained on Lovenox Consult urology is appreciated but no DC cath until coccyx ulcer is healed Rehabilitation to focus on transfers and lessen burden on caretakers longterm placement pending Medicaid Reducing to soft cast on neck and should improve pain/stiffness Seroquel at night Celexa in the morning Advanced diet Supplement potassium Stop Diflucan 01.25 Signed: Gwendolyn Aguirre, OMS-III, medical student Dr. Nesbitt reviewed all the X-Ray reports that she requested and recommended a soft collar and he is very excited about that. Had debridement yesterday by Dr. James and the wound looks good. Shoulder pain continues to be an issue but hopefully the soft collar change will help. Trach down-graded size is working very well. Bowels are moving a little bit too much. Eating and drinking well. Family training will be today. Getting everything set up for discharge home. From a clinical standpoint he looks good and is stable and overall ready when family is able to accommodate going home but group home could be an option if he fails that. Just notified by SW he now has Medicaid and she has sent out referrals to SNF again Review of Systems General: Fatigue Neurological: Weakness, Numbness, Incoordination Objective Exam Vital Signs Vital Signs Date Time Temp Pulse Resp B/P (MAP) Pulse Ox O2 Delivery O2 Flow Rate FiO2 01/25/19 19:10 92 Room Air 01/25/19 16:00 98.0 74 18 154/76 (102) 01/23/19 06:39 6.00 21 Capillary Refill : Less Than 3 SecondsLess Than 3 Seconds General Appearance: No Apparent Distress, WD/WN, Chronically ill HEENT: PERRL/EOMI, Normal ENT Inspection, Pharynx Normal Neck: Supple, Other (trachea collar ) Respiratory: Chest Non Tender, Lungs Clear, Normal Breath Sounds, No Accessory Muscle Use, No Respiratory Distress Cardiovascular: Regular Rate, Rhythm, No Edema, Normal Peripheral Pulses Gastrointestinal: Normal Bowel Sounds, No Organomegaly, No Pulsatile Mass, Non Tender, Soft, Other (PEG in place) Back: Normal Inspection, No CVA Tenderness, No Vertebral Tenderness Extremity: Normal Capillary Refill, Normal Inspection Neurologic/Psychiatric: Alert, Oriented x3, Normal Mood/Affect, vamp presser II-XII Norm as Tested, Motor Weakness (chest and below neurological deficit) Skin: Normal Color, Other (decubitus ulcer coccyx, eschar in wound no surrounding erythema) Lymphatic: No Adenopathy Results/Procedures Lab Patient resulted labs reviewed. FIM Transfers Therapy Code Descriptions/Definitions Functional [place] Measure: 0=Not Assessed/NA 4=Minimal Assistance 1=Total Assistance 5=Supervision or Setup 2=Maximal Assistance 6=Modified [place] 3=Moderate Assistance 7=Complete [place] Therapy Quality Codes: 6 Independent with activity with or without an assistive device 5 Patient requires set up or clean up by helper. Patient completes activity by themselves 4 Supervision or touching assist (CGA). [place] provide cues , steadying assist 3 The helper provides less than half the effort to complete the activity 2 The helper provides more than half the effort to complete the activity 1 Dependent. The helper does all the effort to complete an activity 7 Patient refused to complete or attempt activity 9 The patient did not perform the activity before the current illness or injury 88 Not attempted due to Medical conditions or safety concerns Transfers (B, C, W/C) (FIM): 1 Scootin Rollin Roll Left to Right (QC): 1 Supine to/from Sit: 1 Sit to/from Stand: 1 Sit to Lying (QC): 1 Sit to Stand (QC): 1 Chair/Xlw-cy-Ofezk Xfer(QC): 1 Bed to/from Chair: 1 Car Transfer (QC): 1 Gait Training Does the Patient Walk?: No and Walking Goal NOT indicated Wheelchair Training Does the Pt Use a Wheelchair?: Yes Wheelchair (FIM): 1 Wheelchair Distance: 3=150 ft Distance: 350+' Wheelchair Level of Assist: 3 Wheel 50 ft with 2 turns (QC): 4 Wheel 150 ft (QC): 3 Type of Wheelchair: Motorized Mental Status/Objective Comprehension: 6 Expression: 6 Social Interaction: 6 Problem Solvin Memory: 4 ADL-Treatment Feedin Eating (QC): 1 Groomin Oral Hygiene (QC): 1 Bathin Shower/Bathe Self (QC): 1 Upper Extremity Dressin Upper Body Dressing (QC): 1 Lower Extremity Dressin Lower Body Dressing (QC): 1 On/Off Footwear (QC): 1 Toiletin (Pt. 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 Nesbitt at [facility] 12/07/18 Rib plating on the right Closed right scapular fracture Diabetes mellitus [id number] requiring insulin now improved PEG tube status and likely will DC in the next several weeks Trach dependent Anemia Hypertension DVT prophylaxis with Lovenox Neurogenic bladder requiring Zamarripa catheter and urology recommends maintained to help heal decubitus ulcer in the meantime Decubitus ulcer s/p debridement but appears to need additional debridement prn if worsens OJ Psychosis resolved with Seroquel Depression placed on Celexa Ileus-resolved Plan: Debridement per Dr. García and Dr. Craven and it appears to need additional debridement in the future until healed Wound VAC after debridement if needed Maintained on Lovenox Consult urology is appreciated but no DC cath until coccyx ulcer is healed Rehabilitation to focus on transfers and lessen burden on caretakers longterm placement now that he now has Medicaid Removes neck brace while sleeping to aid in alleviation of discomfort causing behaviors and will await NSG recs for brace removal at his request Seroquel at night Celexa in the morning Advanced diet Supplement potassium Stop Diflucan 08.08 DC PEG in next 6 weeks Continue to wean down trach and DC once he can handle his secretions NHP once approved and now he has Medicaid so that will help dispo (1) Spinal cord injury at C1-C4 level (2) Anemia (3) Anxiety Status: Chronic (4) Chronic pain Status: Chronic (5) Neurogenic bladder (6) HLD (hyperlipidemia) Status: Chronic (7) Tracheostomy dependent (8) DVT prophylaxis Status: Acute (9) Post-traumatic quadriplegia (10) Closed right scapular fracture (11) Right rib fracture (12) Right pulmonary contusion (13) Decubitus ulcer of coccygeal region, stage 4 (14) Shock due to spinal cord injury (15) Diabetes mellitus (16) Elevated blood pressure reading Status: Acute (17) Hospital discharge follow-up (18) Septic prepatellar bursitis of left knee (19) septic bursa (20) Paresthesias Status: Acute (21) Uncontrolled diabetes mellitus Status: Chronic (22) Illicit drug use Status: Acute (23) Cellulitis Status: Acute (24) Hyperglycemia Status: Acute (25) Sepsis Status: Acute (26) Hypertension Status: Chronic (27) Type 2 diabetes mellitus with hyperglycemia Status: Chronic (28) PEG (percutaneous endoscopic gastrostomy) status MARGUERITE GAN DO Jan 25, 2019 09:18
--- NOTE | 2019-01-25 09:30 | NUR ---
CHECKED WITH DR. HUSSEIN REGARDING SOFT COLLAR COVERING TRACH. HE STATES HE MAY REMOVE TRACH TOMORROW, BUT THAT HE WOULD TALK TO DR. GAN ABOUT IT.
[2019-01-25] MEDS: POT PHOS/NA PHOS (K-PHOS NEUTRAL) PO SCH ×2 (09:47→20:08)
--- NOTE | 2019-01-25 09:49 | Progress Note - Hospitalist ---
LUH MACHADO, 01/25/1951: Progress Note Subjective/Events - Last Exam: Pleasant this morning. Pt did not sleep well last night. Shoulder pain throughout the night that required frequent position adjustments. Adding pillows helped him but only for a short period of time. Had extra Colace 2 nights ago, so had 4 bowel movements 01/24. Denies any other pain other than shoulders. No n/v. Trach cap was slipping, RT fixed. Eating well and tolerating advanced diet. Wound care 01/24 went well. 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 [facility]es[facility]itt at [facility] 12/07/18 Rib plating on the right Closed right scapular fracture Diabetes mellitus [id number] requiring insulin now improved PEG tube status and likely will DC in the next several weeks Trach dependent Anemia Hypertension DVT prophylaxis with Lovenox Neurogenic bladder requiring Zamarripa catheter and urology recommends maintained to help heal decubitus ulcer in the meantime Decubitus ulcer s/p debridement but appears to need additional debridement prn if worsens OJ Psychosis resolved with Seroquel Depression placed on Celexa Ileus-resolved Plan: Reduce midodrine dosage Debridement per Dr. Garíca and Dr. Craven and it appears to need additional debridement in the future until healed Wound VAC after debridement if needed Maintained on Lovenox Consult urology is appreciated but no DC cath until coccyx ulcer is healed Rehabilitation to focus on transfers and lessen burden on caretakers [facility] placement pending Medicaid Reducing to soft cast on neck and should improve pain/stiffness Seroquel at night Celexa in the morning Advanced diet Supplement potassium Stop Diflucan 01.25 Signed: MAHOGANY Joyce-III, medical student PAOLA GAN DO 01/25/192032: Supervisory-Addendum Brief Verification & Attestation Time: Verification & Attestat.: 09:00 Participated in pt care: history, MDM, physical Personally performed: exam, history, MDM, supervision of care Care discussed with: Medical Student Procedures: n/a Results interpretation: Verified all documentation Verification and Attestation of Medical Student E/M Service A medical student performed and documented this service in my presence. I reviewed and verified all information documented by the medical student and made modifications to such information, when appropriate. I personally performed the physical exam and medical decision making. Paola Gan, Jan 25, 2019,20:33 LUH MACHADO, Jan 25, 2019 09:49 PAOLA GAN DO Jan 25, 2019 20:33
--- NOTE | 2019-01-25 10:00 | NUR ---
Family present for training. Addendum: 01/25/19 at 2148 by DEYANIRA RIVERA SS 130p-WAREHOUSE PACKAGING SUPERVISOR received notification that patient's [facility] Medicaid is now active with [facility]. Information received states [facility] will be retroactivated. Per information [facility] at [facility] Allyson Dickerson, WAREHOUSE PACKAGING SUPERVISOR is to send clinical information to [facility] regarding patient's current ARU stay. WAREHOUSE PACKAGING SUPERVISOR fax clinical documents. WAREHOUSE PACKAGING SUPERVISOR also notified [facility], [facility], and [facility] of active insurance coverage, as these were the patient's top three choices, with first choice as [facility]. Patient was visited by [facility] today and will receive on-site visit by [facility] tomorrow after 2p. although patient spouse participated and family training today, she does not feel comfortable managing his open coccyx wound, at this time. She is hopeful for additional healing prior to returning home as "the sight of the wound makes her nauseous". Patient and family are understanding of the need for SNF placement until home modifications occur and equipment is in place, as well as time for additional wound healing and possible decannulation. per nurse's note, Dr. Arcos intends to remove trach tomorrow, if Dr. Cordero is in agreement. If accepted by a facility, patient should be appropriate to discharge early next week. WAREHOUSE PACKAGING SUPERVISOR did provide update to Yumiko at the [facility] of active insurance coverage as patient will need HCBS waiver implementation when he does ultimately return home.
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
[2019-01-25 11:20] VITALS: BP 88/60
[2019-01-25 11:40] VITALS: BP 148/80
--- NOTE | 2019-01-25 11:40 | NUR ---
BP WAS 88/60 AND HR 90 AFTER SITTING UP IN WHEELCHAIR. PATIENT COMPLAINED EYES WERE BLURRY. BLOOD SUGAR 178. ASSISTED BACK TO BED. NOW BP 148/80 AND HR 68. WILL CONTINUE TO MONITOR.
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
[2019-01-25] MEDS: ENOXAPARIN 40 MG/0.4 ML (LOVENOX) SYR SC SCH (13:38)
--- NOTE | 2019-01-25 14:42 | Speech Therapy Daily Note ---
Speech Daily Progress Note Subjective Date Seen by Provider: Jan 25, 2019 Time Seen by Provider: 00:30 The patient was lethargic and stated his BP and BS had been running very low. He was able to participate well for the noon time meal. Objective The patient utilizes compensatory strategies as trained with assistance during meal time with 90% given minimal verbal cues. The patient consumed 100% without s/s of aspiration. Assessment Assessment Current Status: Good Progress Treatment Plan Continue Plan of Care Communication Comprehension: 6 Expression: 6 Social Cognition Social Interaction: 6 Problem Solvin Memory: 4 Speech Short Term Goals Short Term Goals Short Term Goals 1) The patient will complete memory tasks related to his daily needs at 90% or greater with minimal cues. 2) The patient will complete problem solving tasks related to his daily needs at 90% or greater with minimal cues. 3) The patient will complete safety awareness tasks related to his daily needs at 90% or greater with minimal cues. 4) The patient will tolerate least restrictive diet without s/s of aspiration with 90% or greater. 5) The patient will demonstrate compliance of utilization of compensatory strategies as trained at 90% or greater with minimal cues. Speech Home Health Care Worker Goals Home Health Care Worker Goals The patient will improve his cognitive status for a safe return home. The patient will maintain adequate nutrition/hydration via safe effective swallow function and/or PEG tube. Speech-Plan Patient/Family Goals Patient/Family Goals: The patient plans on returning home with family post rehab. Treatment Plan Speech Therapy Treatment Plan: Continue Plan of Care The patient has made good progress with his oral intake. Treatment Duration: Feb 02, 2019 Frequency: 5 times per week Estimated Hrs Per Day: .5 hour per day Rehab Potential: Guarded Barriers to Learning: Patient's medical status and cognitive deficits Pt/Family Agrees to Plan: Yes Safety Risks/Education Teaching Recipient: Patient Teaching Methods: Demonstration, Discussion Response to Teaching: Verbalize Understanding, Return Demonstration Education Topics Provided: Continued safety with oral intake Time Speech Therapy Time In: 12:00 Speech Therapy Time Out: 12:30 Total Billed Time: 30 Billed Treatment Time TimLUIS DANIEL BETHANIA ST Jan 25, 2019 14:42
--- NOTE | 2019-01-25 14:57 | Physical Therapy Daily Note ---
PT Daily Note-Current Subjective Pt R sidelying in bed upon arrival. Pt agrees to Supine Ex in bed. Pain Location: No Pain Reported Mental Status Patient Orientation: Person, Place, Situation Attachments: PEG Tube, Zamarripa Catheter, Other-See Comments (Cervical Collar) Transfers Therapy Code Descriptions/Definitions Functional [place] Measure: 0=Not Assessed/NA 4=Minimal Assistance 1=Total Assistance 5=Supervision or Setup 2=Maximal Assistance 6=Modified [place] 3=Moderate Assistance 7=Complete [place] Therapy Quality Codes: 6 Independent with activity with or without an assistive device 5 Patient requires set up or clean up by helper. Patient completes activity by themselves 4 Supervision or touching assist (CGA). [place] provide cues , steadying assist 3 The helper provides less than half the effort to complete the activity 2 The helper provides more than half the effort to complete the activity 1 Dependent. The helper does all the effort to complete an activity 7 Patient refused to complete or attempt activity 9 The patient did not perform the activity before the current illness or injury 88 Not attempted due to Medical conditions or safety concerns Exercises Supine Ex: Ankle pumps, Quad Set, Heel Slides, Hip abd/add Supine Reps: 15 Treatments Pt completes Supine EX in bed with RB. Pt wants repositioned & pillows are positioned so pt is L sidelying. Pt has all needs met, call light in hand. Assessment Current Status: Good Progress Pt has tremors of LE during EX and reports being able to feel movement and occasional pressure of LE. PT Short Term Goals Short Term Goals Time Frame: Jan 17, 2019 Transfers (B,C,W/C) (FIM): 1 Wheelchair (FIM): 4 (if he can get a power chair) Wheelchair Distance: 350+' Wheelchair Level of Assist: 4 PT Supervisor Instrument Maintenance Goals Senior Living Goals PT Supervisor Instrument Maintenance Goals Time Frame: Jan 31, 2019 Transfers (B,C,W/C) (FIM): 1 Sit to Lying (QC): 1 Lying-Sitting on Side/Bed(QC): 1 Rollin Roll Left to Right (QC): 2 Chair/Nec-jz-Fowjc Xfer(QC): 1 Car Transfer (QC): 1 Wheelchair (FIM): 5 (if he can get a power chair) Distance: 150' Wheelchair Level of Assist: 5 Wheel 50 feet with 2 turns (QC: 4 PT Plan Problem List Problem List: Activity Tolerance, Functional Strength, ROM Treatment/Plan Treatment Plan: Continue Plan of Care Treatment Plan: Bed Mobility, Concurrent Therapy, Education, Functional Activity Estella, Functional Strength, Group Therapy, Safety, Therapeutic Exercise, Transfers Treatment Duration: Jan 31, 2019 Frequency: At least 5 of 7 days/Wk (IRF) Estimated Hrs Per Day: 1.5 hours per day Patient and/or Family Agrees t: Yes Time/GCodes Time In: 1350 Time Out: 1420 Total Billed Treatment Time: 30 Total Billed Treatment 1, EX (20m) & FA (10m) G Codes Necessary: LESLIE Hoyos PRE SCHOOL TEACHER Jan 25, 2019 14:57
--- NOTE | 2019-01-25 15:00 | Pulmonary Progress Note ---
Subjective Time Seen by a Provider: 15:00 Subjective/Events-last exam Pt has no complaints. NO SOB with trach capped. No excessive sputum production. Sepsis Event Evaluation Height, Weight, BMI Height: 5'3.00" Weight: 146lbs. 9.6oz. 66.878863ky; 26.1 BMI Method:Stated Exam Exam Vital Signs Date Time Temp Pulse Resp B/P (MAP) Pulse Ox O2 Delivery O2 Flow Rate FiO2 01/25/19 06:27 92 Room Air 01/25/19 05:40 99.6 86 18 108/69 (82) 96 Room Air 01/25/19 03:14 93 Room Air 01/24/19 21:39 93 Room Air 01/24/19 21:38 Room Air 01/24/19 17:26 97.6 62 20 182/83 (116) 97 Room Air 01/24/19 15:17 97 I & O 01/25/19 07:00 Intake Total 940 ml Output Total 1900 ml Balance -960 ml Height & Weight Height: 5'3.00" Weight: 146lbs. 9.6oz. 66.871648ap; 26.1 BMI Method:Stated General Appearance: No Apparent Distress, WD/WN, Chronically ill HEENT: PERRL/EOMI Neck: Supple, Other (trachea collar ) Respiratory: Chest Non Tender, Lungs Clear, Normal Breath Sounds, No Accessory Muscle Use, No Respiratory Distress Cardiovascular: Regular Rate, Rhythm Capillary Refill: Less Than 3 Seconds Gastrointestinal: soft, distended (mildly distended) Extremity: Normal Capillary Refill, Normal Inspection Neurologic/Psychiatric: Motor Weakness (chest and below neurological deficit) Skin: Normal Color, Other (decubitus ulcer coccyx, eschar in wound no surrounding erythema) Lymphatic: No Adenopathy Assessment/Plan Assessment/Plan 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 Nesbitt at [facility] Tracheostomy -Diflucan -SVNS with DuoNeb and Mucomyst -trach tub has been capped and pt is tolerating this very well -Will plan on d/cing tracheostomy tube tomorrow morning. Decubitus ulcer stage 4 -wound care Rib plating on the right Closed right scapular fracture Diabetes mellitus aax-fc-exiqbyz requiring insulin PEG tube status Anemia -Monitor Hypertension Neurogenic bladder with Zamarripa catheter Decubitus ulcer in need of debridement -Wound vac -Surgery following Illicit drug use ALONDRA HUSSEIN DO Jan 25, 2019 15:00
--- NOTE | 2019-01-25 15:01 | Progress Note - Surgery ---
Subjective Date Seen by a Provider: Jan 25, 2019 Time Seen by a Provider: 11:00 Subjective/Events-last exam Patient doing okay. tolerating diet and having bowel function. No new complaints. Wound debrided yesterday. Denies n/v fever sweats chills shortness of breath or chest pain. Objective Exam Vital Signs Date Time Temp Pulse Resp B/P (MAP) Pulse Ox O2 Delivery O2 Flow Rate FiO2 01/25/19 06:27 92 Room Air 01/25/19 05:40 99.6 86 18 108/69 (82) 96 Room Air 01/25/19 03:14 93 Room Air 01/24/19 21:39 93 Room Air 01/24/19 21:38 Room Air 01/24/19 17:26 97.6 62 20 182/83 (116) 97 Room Air 01/24/19 15:17 97 I & O 01/25/19 07:00 Intake Total 940 ml Output Total 1900 ml Balance -960 ml Capillary Refill : Less Than 3 SecondsLess Than 3 Seconds General Appearance: No Apparent Distress, WD/WN, Chronically ill HEENT: PERRL/EOMI Neck: Supple, Other (trachea collar ) Respiratory: Chest Non Tender, No Accessory Muscle Use, No Respiratory Distress Cardiovascular: Regular Rate, Rhythm Gastrointestinal: soft, distended (mildly distended) Extremity: Normal Capillary Refill, Normal Inspection Neurologic/Psychiatric: Alert, Oriented x3, Motor Weakness (chest and below neurological deficit) Skin: Normal Color, Other (decubitus ulcer coccyx, no surrounding erythema) Lymphatic: No Adenopathy Results Lab Laboratory Tests 01/24/19 15:18: Glucometer 98 01/24/19 19:59: Glucometer 253H 01/25/19 05:24: Glucometer 103 01/25/19 11:17: Glucometer 178H Microbiology 01/10/19 Blood Culture - Final, Complete No growth 01/10/19 Gram Stain - Final, Complete 01/10/19 Sputum Culture - Final, Complete Usual upper respiratory aaron YEAST Assessment/Plan Assessment/Plan Assessment/Plan 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 abdominal distention improved and having function Decubitus ulcer coccyx wound care ileus-resolved Decubitus ulcer dry continue wound care Continue wound care, debridement prn will follow periodically, call if needed Clinical Quality Measures DVT/VTE Risk/Contraindication: Risk Factor Score Per Nursin RFS Level Per Nursing on Admit: 4+=Very High NIKOLAY SANFORD DO Jan 25, 2019 15:00
[2019-01-25 16:00] VITALS: BP 154/76
--- NOTE | 2019-01-25 16:00 | NUR ---
STATES IS SWALLOWING "PRETTY GOOD". FEELS LEGS JERKING MORE. FEELS HAS MORE USE OF ARMS.
--- NOTE | 2019-01-25 19:05 | NUR ---
Patient suctioned via trach per CHAD Chacko request with help of ICU RNs. Patient tolerated well. ALEJANDRO, RN
[2019-01-25] MEDS: RT-ALBUTEROL SULF 2.5 MG/3 ML PRE-MIX VIAL IH PRN (19:10)
--- NOTE | 2019-01-25 20:00 | NUR ---
Patient requests to be suctioned again. Suctioned via sterile procedure. Patient tolerated well. ALEJANDRO, RN
[2019-01-25] MEDS: MONTELUKAST 10 MG (SINGULAIR) TAB PO SCH (20:08)
[2019-01-25] MEDS: MELATONIN 3 MG TABLET PO SCH (20:08)
[2019-01-25] MEDS: QUEtiapine 25 MG (SEROquel) TAB IMMEDIATE RELEASE PO SCH (20:08)
[2019-01-25] MEDS: ALPRAZolam 0.5 MG (XANAX) TAB PEG PRN (20:08)
--- NOTE | 2019-01-25 20:30 | NUR ---
Patient requests to be suctioned again. Suctioned via sterile procedure. Patient tolerated well. Turned patient onto left side per request et propped with pillows. Call light in reach. ALEJANDRO, RN
--- NOTE | 2019-01-25 22:30 | NUR ---
Patient requests to be suctioned again. States, "I think it will help me sleep to get this "junk" out." Suctioned via sterile procedure. Patient tolerated well. ALEJANDRO, RN
[2019-01-26] MEDS: RT-ALBUTEROL/IPRATROPIUM 3 ML (DUONEB) VIAL INH SCH ×4 (04:42→19:42)
[2019-01-26 06:00] VITALS: BP 85/54
[2019-01-26 06:15] LABS: BASOPHILS % (AUTO) 0 % (0-10); EOSINOPHILS # (AUTO) 0.1 10^3/uL (0.0-0.3); EOSINOPHILS % (AUTO) 1 % (0-10); HEMATOCRIT 33 % (40-54); HEMOGLOBIN 10.3 G/DL (13.3-17.7); LYMPHOCYTES # (AUTO) 2.9 X 10^3 (1.0-4.0); LYMPHOCYTES % (AUTO) 35 % (12-44); MEAN CORPUSCULAR HEMOGLOBIN 30 PG (25-34); MEAN CORPUSCULAR HGB CONC 31 G/DL (32-36); MEAN CORPUSCULAR VOLUME 95 FL (80-99); MEAN PLATELET VOLUME 8.2 FL (7.4-10.4); MONOCYTES % (AUTO) 13 % (0-12); NEUTROPHILS # (AUTO) 4.2 X 10^3 (1.8-7.8); NEUTROPHILS % (AUTO) 51 % (42-75); PLATELET COUNT 221 10^3/uL (130-400); RED CELL DISTRIBUTION WIDTH 14.3 % (10.0-14.5); WHITE BLOOD COUNT 8.2 10^3/uL (4.3-11.0)
[2019-01-26] MEDS: guaiFENesin SYRUP 100 MG/5 ML 10 ML (ROBITUSSIN SF) PEG SCH ×3 (06:16→22:29)
[2019-01-26] MEDS: inSUlin ASPART (NovoLOG) 1 UNIT/0.01 ML (CHARGE PER UNIT) SC SCH ×4 (06:16→20:40)
[2019-01-26] MEDS: KCL 10 MEQ TAB (MICRO K) PO SCH (06:16)
[2019-01-26] MEDS: ALPRAZolam 0.5 MG (XANAX) TAB PEG PRN ×2 (06:16→20:39)
--- NOTE | 2019-01-26 06:30 | NUR ---
dr mcneill at bedside, trach removed and guaze taped over hole
[2019-01-26 06:33] LABS: ALANINE AMINOTRANSFERASE 16 U/L (0-55); ALBUMIN 3.3 GM/DL (3.2-4.5); ALKALINE PHOSPHATASE 150 U/L (40-136); BILIRUBIN,TOTAL 0.3 MG/DL (0.1-1.0); BUN/CREATININE RATIO 13; CALCIUM 9.7 MG/DL (8.5-10.1); CARBON DIOXIDE 23 MMOL/L (21-32); CHLORIDE 107 MMOL/L (98-107); CREATININE SERUM 0.63 MG/DL (0.60-1.30); GFR ESTIMATED > 60; GLUCOSE 106 MG/DL (70-105); POTASSIUM 3.6 MMOL/L (3.6-5.0); SODIUM 139 MMOL/L (135-145); TOTAL PROTEIN 7.3 GM/DL (6.4-8.2)
--- NOTE | 2019-01-26 06:34 | Pulmonary Progress Note ---
Subjective Time Seen by a Provider: 06:34 Subjective/Events-last exam No complications noted. Sepsis Event Evaluation Height, Weight, BMI Height: 5'3.00" Weight: 146lbs. 9.6oz. 66.043482id; 26.1 BMI Method:Stated Exam Exam Vital Signs Date Time Temp Pulse Resp B/P (MAP) Pulse Ox O2 Delivery O2 Flow Rate FiO2 01/25/19 21:25 91 Room Air 01/25/19 21:00 Room Air 01/25/19 19:10 92 Room Air 01/25/19 17:30 Room Air 01/25/19 16:00 98.0 74 18 154/76 (102) 97 Room Air 01/25/19 11:40 68 148/80 (102) 01/25/19 11:20 90 88/60 (69) 01/25/19 09:00 Room Air 01/25/19 08:00 90 86/56 (66) I & O 01/26/19 07:00 Intake Total 1770 ml Output Total 800 ml Balance 970 ml Height & Weight Height: 5'3.00" Weight: 146lbs. 9.6oz. 66.649143mu; 26.1 BMI Method:Stated General Appearance: No Apparent Distress, WD/WN, Chronically ill HEENT: PERRL/EOMI, Normal ENT Inspection, Pharynx Normal Neck: Supple, Other (trachea collar ) Respiratory: Chest Non Tender, Lungs Clear, Normal Breath Sounds, No Accessory Muscle Use, No Respiratory Distress Cardiovascular: Regular Rate, Rhythm, No Edema, Normal Peripheral Pulses Capillary Refill: Less Than 3 Seconds Gastrointestinal: soft, distended (mildly distended) Extremity: Normal Capillary Refill, Normal Inspection Neurologic/Psychiatric: Alert, Oriented x3, Normal Mood/Affect, practice administrator II-XII Norm as Tested, Motor Weakness (chest and below neurological deficit) Skin: Normal Color, Other (decubitus ulcer coccyx, eschar in wound no surrounding erythema) Lymphatic: No Adenopathy Results Lab Laboratory Tests 01/26/19 06:01 Assessment/Plan Assessment/Plan 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 Nesbitt at [facility] Tracheostomy -SVNS with DuoNeb and Mucomyst -trach tub has been capped and pt is tolerating this very well -Will d/c tracheostomy tube Decubitus ulcer stage 4 -wound care Rib plating on the right Closed right scapular fracture Diabetes mellitus xiq-xf-fayvtnz requiring insulin PEG tube status Anemia -Monitor Hypertension Neurogenic bladder with Zamarripa catheter Decubitus ulcer in need of debridement -Wound vac -Surgery following Illicit drug use ALONDRA HUSSEIN DO Jan 26, 2019 06:34
--- NOTE | 2019-01-26 08:06 | Progress Note - Hospitalist ---
LUH MACHADO, 01/26/19 0806: Progress Note Date: 01/26/2019 Time: 0715 Subjective/Events - Last Exam: D/C trach early this morning Doing okay and trying to relearn how to talk w/o it Hoping bowels will balance today after mishap with laxative 2 nights ago Went well when he was out of the room Pain in shoulders 4/10 Allergies were awful yesterday Had nausea from secretions Thinks someone was burning and that flared Denied SOB or chest pain Objective: Vitals: BP 85/54, but otherwise stable Gen: alert and oriented x3, pleasant Cardiac: RRR, no murmurs, no bruits Respiratory: Clear bilaterally on auscultation, no wheezes Assessment: 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 Nesbitt at [facility] 12/07/18 Rib plating on the right Closed right scapular fracture Diabetes mellitus [id number] requiring insulin now improved PEG tube status and likely will DC in the next several weeks Trach dependent Anemia Hypertension DVT prophylaxis with Lovenox Neurogenic bladder requiring Zamarripa catheter and urology recommends maintained to help heal decubitus ulcer in the meantime Decubitus ulcer s/p debridement but appears to need additional debridement prn if worsens OJ Psychosis resolved with Seroquel Depression placed on Celexa Ileus-resolved Plan: Monitor progress with decannulation Reduce midodrine dosage Debridement per Dr. García and Dr. Craven and it appears to need additional debridement in the future until healed Wound VAC after debridement if needed Maintained on Lovenox Consult urology is appreciated but no DC cath until coccyx ulcer is healed Rehabilitation to focus on transfers and lessen burden on caretakers shelter placement pending Medicaid Reducing to soft cast on neck and should improve pain/stiffness Seroquel at night Celexa in the morning Advanced diet Supplement potassium Signed: Luh Machdao, OMS-III, medical student PAOLA GAN DO 01/26/19 5294: Supervisory-Addendum Brief Verification & Attestation Time: Verification & Attestat.: 09:00 Participated in pt care: history, MDM, physical Personally performed: exam, history, MDM, supervision of care Care discussed with: Medical Student Procedures: n/a Results interpretation: Verified all documentation Verification and Attestation of Medical Student E/M Service A medical student performed and documented this service in my presence. I reviewed and verified all information documented by the medical student and made modifications to such information, when appropriate. I personally performed the physical exam and medical decision making. Paola aGn, Jan 26, 2019,17:24 LUH MACHADO, Jan 26, 2019 08:06 PAOLA GAN DO Jan 26, 2019 17:24
--- NOTE | 2019-01-26 08:58 | Physical Therapy Daily Note ---
PT Daily Note-Current Subjective Patient in bed pre tx, agrees to PT, has no complaints of pain at rest, will be co-treating with OT due to poor patient mobility, strength, endurance, balance, quadriplegia, the need to coordinate UE and LE during activity and wheelchair mobility. Appearance Patient in bed post tx with nurse call, phone, tray, all needs met, OT to continue to work with patient for another 15 min. Mental Status Patient Orientation: Normal For Age cervical collar Transfers Therapy Code Descriptions/Definitions Functional Laura Measure: 0=Not Assessed/NA 4=Minimal Assistance 1=Total Assistance 5=Supervision or Setup 2=Maximal Assistance 6=Modified Laura 3=Moderate Assistance 7=Complete Laura Therapy Quality Codes: 6 Independent with activity with or without an assistive device 5 Patient requires set up or clean up by helper. Patient completes activity by themselves 4 Supervision or touching assist (CGA). [place] provide cues , steadying assist 3 The helper provides less than half the effort to complete the activity 2 The helper provides more than half the effort to complete the activity 1 Dependent. The helper does all the effort to complete an activity 7 Patient refused to complete or attempt activity 9 The patient did not perform the activity before the current illness or injury 88 Not attempted due to Medical conditions or safety concerns Transfers (B, C, W/C) (FIM): 1 Bed to/from Chair: 1 Orly to power chair, patient has had a BM and needs to be cleaned and changed, he has to roll to each side several times for cleaning, changing, and to get orly sling under him. Wheelchair Training Does the Pt Use a Wheelchair?: Yes Wheelchair (FIM): 4 Distance: 2000' Wheelchair Level of Assist: 4 Type of Wheelchair: Motorized Patient has trouble manipulating the wheelchair with the current joystick he has, needs a goalpost. He also needs a different armrest for his personal wheelchair, no adjustments can be done to the one here and his arm keeps slipping off. Exercises BLE ankle stretching. Treatments ROM, transfers, WC mobility Assessment Current Status: Fair Progress improving WC mobility, with the right adjustments to WC he should be able to drive one with SBA PT Short Term Goals Short Term Goals Time Frame: Jan 17, 2019 Transfers (B,C,W/C) (FIM): 1 Wheelchair (FIM): 4 (if he can get a power chair) Wheelchair Distance: 350+' Wheelchair Level of Assist: 4 PT Food Service Team Member Goals Residential Goals PT Residential Goals Time Frame: Jan 31, 2019 Transfers (B,C,W/C) (FIM): 1 Sit to Lying (QC): 1 Lying-Sitting on Side/Bed(QC): 1 Rollin Roll Left to Right (QC): 2 Chair/Jdo-sv-Wjkgl Xfer(QC): 1 Car Transfer (QC): 1 Wheelchair (FIM): 5 (if he can get a power chair) Distance: 150' Wheelchair Level of Assist: 5 Wheel 50 feet with 2 turns (QC: 4 PT Plan Problem List Problem List: Activity Tolerance, Functional Strength, Safety, Balance, Transfer, Bed Mobility, ROM Treatment/Plan Treatment Plan: Continue Plan of Care Treatment Plan: Bed Mobility, Concurrent Therapy, Education, Functional Activity Estella, Functional Strength, Group Therapy, Safety, Therapeutic Exercise, Transfers Treatment Duration: Jan 31, 2019 Frequency: At least 5 of 7 days/Wk (IRF) Estimated Hrs Per Day: 1.5 hours per day Patient and/or Family Agrees t: Yes Safety Risks/Education Patient Education: Transfer Techniques, Correct Positioning, W/C Management, Safety Issues Teaching Recipient: Patient Teaching Methods: Demonstration, Discussion Response to Teaching: Reinforcement Needed Time/GCodes Time In: 0800 Time Out: 0900 Total Billed Treatment Time: 60 Total Billed Treatment 1 visit [facility] 30' FA 30' ADRIENNE DURAN PT Jan 26, 2019 08:58
[2019-01-26] MEDS: MIDODRINE 10 MG (PROAMATINE) TAB PO SCH ×3 (09:03→22:39)
[2019-01-26] MEDS: FAMOTIDINE 20 MG (PEPCID) TABLET PO SCH ×2 (09:03→20:39)
[2019-01-26] MEDS: SENNA W/DOCUSATE (SENOKOT S) TABLET PO SCH ×2 (09:03→22:03)
[2019-01-26] MEDS: LORATADINE (CLARITIN) 10 MG TAB PO SCH (09:03)
[2019-01-26] MEDS: POT PHOS/NA PHOS (K-PHOS NEUTRAL) PO SCH ×2 (09:04→20:39)
[2019-01-26] MEDS: aCETylcysteine 20% (MUCOMYST) 30ML SOLN VIAL INH SCH ×2 (09:18→19:42)
--- NOTE | 2019-01-26 09:24 | PM&R Progress Note ---
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 He was unable to maintain his airway. He was intubated at the scene. He was assessed in the ER by Dr. Vaughan trauma surgeon found to have significant hypotension requiring aggressive IV fluids and pressor therapy but then was assessed that he was likely an spinal cord shock and multiple right rib fractures with flail chest requiring transfer to [facility] trauma surgery which resulted in multiple procedures including tracheostomy due to failing weaning protocol on ventilator, PEG tube placement, spine MRIs confirming C3-C7 spinal cord injury complete with plating of ribs 510 on the right side and right sided chest tube. He was found to have drug screen positive for marijuana and methamphetamine. Neurosurgery was consulted perform decompressive laminectomy on C3-C7 with C4-C5 autograft bone screws and rods. He was diagnosed with Haemophilus influenza while intubated and that treatment was completed. He did have rhabdomyolysis from his injuries requiring aggressive IV fluids but they all resolved. Hyperglycemia was diagnosed and he was started on insulin and elevated liver enzymes have improved since admission and hepatitis viral panel along with HIV were negative. He did receive 2 units of packed red blood cells hospitalized. Currently patient is requiring wound care consult by Dr. Craven and general surgery consultation by Dr. García because additional debridement of the sacral decubitus ulcer will be required. He will remain with the c-collar in place until seen Dr. Nesbitt on 01/30/19. Hemoglobin today is 10.1. Dr. Arcos's been consulted for pulmonary issues which she is having increased secretions today in addition urology will be consulted for Zamarripa catheter maintenance for neurogenic bladder. I did speak with Dr. Arcos who will panculture the patient and change breathing treatments to clear secretions. Patient remains total care with quadriplegia. Subjective/Events-last exam Trach was removed today without difficulty Learning how to talk since the trach is removed Soft collar in place which is much more comfortable for him Diflucan discontinued since the regimen has been completed Bowel movements are varied but taking meds when he needs it Now has insurance so reaching out to nursing facilities due to insurance coverage Overall much improved and respiratory status continues to improve Able to navigate the power wheelchair pretty well Remains fully dependent Conferred with RN Reviewed meds and labs Reviewed therapy notes Review of Systems Neurological: Weakness, Numbness, Incoordination Objective Exam Vital Signs Vital Signs Date Time Temp Pulse Resp B/P (MAP) Pulse Ox O2 Delivery O2 Flow Rate FiO2 01/26/19 15:36 98.0 68 16 134/81 (98) 97 Room Air 01/23/19 06:39 6.00 21 Capillary Refill : Less Than 3 SecondsLess Than 3 Seconds General Appearance: No Apparent Distress, WD/WN, Chronically ill HEENT: PERRL/EOMI, Normal ENT Inspection, Pharynx Normal Neck: Supple Respiratory: Chest Non Tender, Lungs Clear, Normal Breath Sounds, No Accessory Muscle Use, No Respiratory Distress Cardiovascular: Regular Rate, Rhythm, No Edema, Normal Peripheral Pulses Gastrointestinal: Normal Bowel Sounds, No Organomegaly, No Pulsatile Mass, Non Tender, Soft, Other (PEG in place) Back: Normal Inspection, No CVA Tenderness, No Vertebral Tenderness Extremity: Normal Capillary Refill, Normal Inspection Neurologic/Psychiatric: Alert, Oriented x3, Normal Mood/Affect, awning maker II-XII Norm as Tested, Motor Weakness (chest and below neurological deficit) Skin: Normal Color, Other (decubitus ulcer coccyx, eschar in wound no surrounding erythema) Lymphatic: No Adenopathy Results/Procedures Lab Laboratory Tests 01/26/19 06:01 Patient resulted labs reviewed. FIM Transfers Therapy Code Descriptions/Definitions Functional [place] Measure: 0=Not Assessed/NA 4=Minimal Assistance 1=Total Assistance 5=Supervision or Setup 2=Maximal Assistance 6=Modified [place] 3=Moderate Assistance 7=Complete [place] Therapy Quality Codes: 6 Independent with activity with or without an assistive device 5 Patient requires set up or clean up by helper. Patient completes activity by themselves 4 Supervision or touching assist (CGA). [place] provide cues , steadying assist 3 The helper provides less than half the effort to complete the activity 2 The helper provides more than half the effort to complete the activity 1 Dependent. The helper does all the effort to complete an activity 7 Patient refused to complete or attempt activity 9 The patient did not perform the activity before the current illness or injury 88 Not attempted due to Medical conditions or safety concerns Transfers (B, C, W/C) (FIM): 1 Scootin Rollin Roll Left to Right (QC): 1 Supine to/from Sit: 1 Sit to/from Stand: 1 Sit to Lying (QC): 1 Sit to Stand (QC): 1 Chair/Mns-xh-Qnkde Xfer(QC): 1 Bed to/from Chair: 1 Car Transfer (QC): 1 Gait Training Does the Patient Walk?: No and Walking Goal NOT indicated Wheelchair Training Does the Pt Use a Wheelchair?: Yes Wheelchair (FIM): 4 Wheelchair Distance: 3=150 ft Distance: 1999' Wheelchair Level of Assist: 4 Wheel 50 ft with 2 turns (QC): 4 Wheel 150 ft (QC): 3 Type of Wheelchair: Motorized Mental Status/Objective Comprehension: 6 Expression: 6 Social Interaction: 6 Problem Solvin Memory: 4 ADL-Treatment Feedin Eating (QC): 1 Groomin Oral Hygiene (QC): 1 Bathin Shower/Bathe Self (QC): 1 Upper Extremity Dressin Upper Body Dressing (QC): 1 Lower Extremity Dressin Lower Body Dressing (QC): 1 On/Off Footwear (QC): 1 Toiletin Toileting Hygiene (QC): 1 Toilet/Commode Transfer: 1 Toilet Transfer (QC): 1 Assessment/Plan Assessment and Plan Assess & Plan/Chief Complaint Assessment: 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 Nesbitt at [facility] 12/07/18 Rib plating on the right Closed right scapular fracture Diabetes mellitus [id number] requiring insulin now improved PEG tube status and likely will DC in the next several weeks Trach dependent s/p removal today 01/26/19 Anemia Hypertension DVT prophylaxis with Lovenox Neurogenic bladder requiring Zamarripa catheter and urology recommends maintained to help heal decubitus ulcer in the meantime Decubitus ulcer s/p debridement but appears to need additional debridement prn if worsens OJ Psychosis resolved with Seroquel Depression placed on Celexa Ileus-resolved Plan: Debridement per Dr. García and Dr. Craven and it appears to need additional debridement in the future until healed Wound VAC after debridement if needed Maintained on Lovenox Consult urology is appreciated but no DC cath until coccyx ulcer is healed Rehabilitation to focus on transfers and lessen burden on caretakers snf placement now that he now has Medicaid Removes neck brace while sleeping to aid in alleviation of discomfort causing behaviors and will await NSG recs for brace removal at his request Seroquel at night Celexa in the morning Advanced diet Supplement potassium Stop Diflucan 08.08 today DC PEG in next 6 weeks DC trach today NHP once approved and now he has Medicaid so that will help dispo (1) Spinal cord injury at C1-C4 level (2) Anemia (3) Anxiety Status: Chronic (4) Chronic pain Status: Chronic (5) Neurogenic bladder (6) HLD (hyperlipidemia) Status: Chronic (7) Tracheostomy dependent (8) DVT prophylaxis Status: Acute (9) Post-traumatic quadriplegia (10) Closed right scapular fracture (11) Right rib fracture (12) Right pulmonary contusion (13) Decubitus ulcer of coccygeal region, stage 4 (14) Shock due to spinal cord injury (15) Diabetes mellitus (16) Elevated blood pressure reading Status: Acute (17) Hospital discharge follow-up (18) Septic prepatellar bursitis of left knee (19) septic bursa (20) Paresthesias Status: Acute (21) Uncontrolled diabetes mellitus Status: Chronic (22) Illicit drug use Status: Acute (23) Cellulitis Status: Acute (24) Hyperglycemia Status: Acute (25) Sepsis Status: Acute (26) Hypertension Status: Chronic (27) Type 2 diabetes mellitus with hyperglycemia Status: Chronic (28) PEG (percutaneous endoscopic gastrostomy) status MARGUERITE GAN DO Jan 26, 2019 09:24
--- NOTE | 2019-01-26 10:20 | NUR ---
SATURATION DIVER received notification from Adrien, clinic administrator at [facility] with denial for placement, as they do not feel they can meet his needs.
--- NOTE | 2019-01-26 10:56 | Occupational Ther Daily Note ---
OT Current Status-Daily Note Subjective Resting in bed, agrees to treatment. Pt states he did not sleep well last night and is tired. Mental Status/Objective Therapy Code Descriptions/Definitions Functional [place] Measure: 0=Not Assessed/NA 4=Minimal Assistance 1=Total Assistance 5=Supervision or Setup 2=Maximal Assistance 6=Modified [place] 3=Moderate Assistance 7=Complete [place] Attachments: PEG Tube ADL-Treatment Co-treat with PT secondary to poor patient mobility, strength, endurance, and need for skilled therapists. Pt dependent to roll left and right for hygiene and placement of jareth sling. Pt had small BM and requires total assist for hygiene and clothing management. Pt transferred to w/c with total assist using jareth. Assist to position in w/c. Pt performed w/c mobility using joystick with right UE. Pt is able to maneuver w/c forward and around corners. Requires assist to manage in/out of elevator. Pt is limited by positioning of right UE. Unable to maintain proper position needed to manipulate joystick without assist from therapist. Pt fatigues with activity and assisted back to room. Transfer w/c to bed with jareth. Co-treat with PT. OT focusing on ADLs/hygiene, UE management, and safety. PT focusing on transfers, LE management, and bed mobility. After co-treat with PT, gentle PROM was completed with bilateral UE in all planes. Pt was repositioned in bed with assist x2. Resting in bed with needs met after session. Therapy Code Descriptions/Definitions Functional [place] Measure: 0=Not Assessed/NA 4=Minimal Assistance 1=Total Assistance 5=Supervision or Setup 2=Maximal Assistance 6=Modified [place] 3=Moderate Assistance 7=Complete [place] Therapy Quality Codes: 6 Independent with activity with or without an assistive device 5 Patient requires set up or clean up by helper. Patient completes activity by themselves 4 Supervision or touching assist (CGA). [place] provide cues , steadying assist 3 The helper provides less than half the effort to complete the activity 2 The helper provides more than half the effort to complete the activity 1 Dependent. The helper does all the effort to complete an activity 7 Patient refused to complete or attempt activity 9 The patient did not perform the activity before the current illness or injury 88 Not attempted due to Medical conditions or safety concerns Toileting (FIM): 1 Transfers (B, C, W/C) (FIM): 1 OT Short Term Goals Short Term Goals Time Frame: Jan 24, 2019 Grooming(FIM): 2 (with AE) Upper Body Dressing(FIM): 2 Transfers (B,C,W/C) (FIM): 1 Additional Short Term Goals: 3-ImproveStrength/Estella 1=Demonstrate adherence to instructed precautions during ADL tasks. 2=Patient will verbalize/demonstrate understanding of assistive devices/modifications for ADL. 3=Patient will improve strength/tolerance for activity to enable patient to perform ADL's. OT Registered Nurse Supervisor Goals Registered Nurse Supervisor Goals Time Frame: Feb 14, 2019 Eating (FIM): 3 Eating (QC): 3 Groomin Oral Hygiene (QC): 3 Upper Body Dressing(FIM): 3 Additional Goals: 3-ImproveStrength/Estella 1=Demonstrate adherence to instructed precautions during ADL tasks. 2=Patient will verbalize/demonstrate understanding of assistive devices/modifications for ADL. 3=Patient will improve strength/tolerance for activity to enable patient to perform ADL's. OT Education/Plan Discharge Recommendations Plan/Recommendations: Continue POC Treatment Plan/Plan of Care Patient would benefit from OT for education, treatment and training to promote independence in ADL's, mobility, safety and/or upper extremity function for ADL's. Plan of Care: ADL Retraining, Caregiver Training, Functional Mobility, Group Exercise/Act as Ind, UE Funct Exercise/Act, UE Neuromus Re-Ed/Coord, W/C Management Training Treatment Duration: Feb 14, 2019 Frequency: At least 5 of 7 days/Wk (IRF) Estimated Hrs Per Day: 1.5 hours per day Agreement: Yes Rehab Potential: Guarded Time/GCodes Start Time: 08:00 Stop Time: 09:15 Total Time Billed (hr/min): 75 Billed Treatment Time 1 visit, FAx4(60minutes), EX(15minutes) Co-treat with PT 75 minutes, Individual OT treatment 15minutes REAGAN DILLARD OT Jan 26, 2019 10:56
--- NOTE | 2019-01-26 12:05 | NUR ---
Received notification that [facility] does not have a bed and does not anticipate one coming available, any time soon.
--- NOTE | 2019-01-26 12:17 | Speech Therapy Daily Note ---
Speech Daily Progress Note Subjective Date Seen by Provider: Jan 26, 2019 Time Seen by Provider: 00:30 The patient was happy to receive the soft collar and be rid of the hard one. Objective The patient consumed 100% of his lunch with assistance. Cough/clear x2, Patient is doing very well with oral intake at the Dysphagia II diet level. Assessment Assessment Current Status: Good Progress Treatment Plan Continue Plan of Care Communication Comprehension: 6 Expression: 6 Social Cognition Social Interaction: 6 Problem Solvin Memory: 4 Speech Short Term Goals Short Term Goals Short Term Goals 1) The patient will complete memory tasks related to his daily needs at 90% or greater with minimal cues. 2) The patient will complete problem solving tasks related to his daily needs at 90% or greater with minimal cues. 3) The patient will complete safety awareness tasks related to his daily needs at 90% or greater with minimal cues. 4) The patient will tolerate least restrictive diet without s/s of aspiration with 90% or greater. 5) The patient will demonstrate compliance of utilization of compensatory strategies as trained at 90% or greater with minimal cues. Speech Cryptologic Supervisor Goals Shelter Goals The patient will improve his cognitive status for a safe return home. The patient will maintain adequate nutrition/hydration via safe effective swallow function and/or PEG tube. Speech-Plan Patient/Family Goals Patient/Family Goals: The patient plans on returning home with family as soon as he can. Treatment Plan Speech Therapy Treatment Plan: Continue Plan of Care The patient continues to progress toward meeting goals. Treatment Duration: Feb 02, 2019 Frequency: 5 times per week Estimated Hrs Per Day: .5 hour per day Rehab Potential: Guarded Barriers to Learning: Patient's medical status, cognitive deficits Safety Risks/Education Teaching Recipient: Patient Teaching Methods: Demonstration, Discussion Response to Teaching: Verbalize Understanding, Return Demonstration Education Topics Provided: Safety of oral intake Time Speech Therapy Time In: 11:45 Speech Therapy Time Out: 12:15 Total Billed Time: 30 Billed Treatment Time 1, BRANDIE Medeiros Jan 26, 2019 12:17
--- NOTE | 2019-01-26 13:33 | Physical Therapy Daily Note ---
PT Daily Note-Current Subjective Patient in bed pre tx, agrees to PT, has no complaints of pain at rest. Appearance Patient in bed post tx with nurse call, on right side for pressure relief with pillow support. Mental Status Patient Orientation: Normal For Age now has soft collar Transfers Therapy Code Descriptions/Definitions Functional [place] Measure: 0=Not Assessed/NA 4=Minimal Assistance 1=Total Assistance 5=Supervision or Setup 2=Maximal Assistance 6=Modified [place] 3=Moderate Assistance 7=Complete [place] Therapy Quality Codes: 6 Independent with activity with or without an assistive device 5 Patient requires set up or clean up by helper. Patient completes activity by themselves 4 Supervision or touching assist (CGA). [place] provide cues , steadying assist 3 The helper provides less than half the effort to complete the activity 2 The helper provides more than half the effort to complete the activity 1 Dependent. The helper does all the effort to complete an activity 7 Patient refused to complete or attempt activity 9 The patient did not perform the activity before the current illness or injury 88 Not attempted due to Medical conditions or safety concerns Exercises BLE PROM/stretching in all planes Treatments LE stretching, PROM Assessment Current Status: Fair Progress patient maintains normal ROM but shows increased muscle spasms PT Short Term Goals Short Term Goals Time Frame: Jan 17, 2019 Transfers (B,C,W/C) (FIM): 1 Wheelchair (FIM): 4 (if he can get a power chair) Wheelchair Distance: 2000' Wheelchair Level of Assist: 4 PT Jail Goals Cover Mat Machine Operator Goals PT Cover Mat Machine Operator Goals Time Frame: Jan 31, 2019 Transfers (B,C,W/C) (FIM): 1 Sit to Lying (QC): 1 Lying-Sitting on Side/Bed(QC): 1 Rollin Roll Left to Right (QC): 2 Chair/Oqt-jf-Mxhua Xfer(QC): 1 Car Transfer (QC): 1 Wheelchair (FIM): 5 (if he can get a power chair) Distance: 150' Wheelchair Level of Assist: 5 Wheel 50 feet with 2 turns (QC: 4 PT Plan Problem List Problem List: Activity Tolerance, Functional Strength, Safety, Balance, Transfer, Bed Mobility, ROM Treatment/Plan Treatment Plan: Continue Plan of Care Treatment Plan: Bed Mobility, Concurrent Therapy, Education, Functional Activity Estella, Functional Strength, Group Therapy, Safety, Therapeutic Exercise, Transfers Treatment Duration: Jan 31, 2019 Frequency: At least 5 of 7 days/Wk (IRF) Estimated Hrs Per Day: 1.5 hours per day Patient and/or Family Agrees t: Yes Safety Risks/Education Patient Education: Correct Positioning, Safety Issues Teaching Recipient: Patient Teaching Methods: Demonstration, Discussion Response to Teaching: Reinforcement Needed Time/GCodes Time In: 1315 Time Out: 1330 Total Billed Treatment Time: 15 Total Billed Treatment 1 visit EX 15' ADRIENNE DURAN PT Jan 26, 2019 13:33
[2019-01-26] MEDS: ENOXAPARIN 40 MG/0.4 ML (LOVENOX) SYR SC SCH (15:07)
[2019-01-26 15:36] VITALS: BP 134/81
[2019-01-26] MEDS: QUEtiapine 25 MG (SEROquel) TAB IMMEDIATE RELEASE PO SCH (20:39)
[2019-01-26] MEDS: MONTELUKAST 10 MG (SINGULAIR) TAB PO SCH (20:39)
[2019-01-26] MEDS: MELATONIN 3 MG TABLET PO SCH (20:40)
[2019-01-26] MEDS: APAP 325 MG/10.15 ML LIQ (TYLENOL) UDC PO PRN (22:30)
[2019-01-27] MEDS: RT-ALBUTEROL/IPRATROPIUM 3 ML (DUONEB) VIAL INH SCH ×4 (02:32→20:48)
[2019-01-27 05:50] VITALS: BP 111/73
[2019-01-27] MEDS: ALPRAZolam 0.5 MG (XANAX) TAB PEG PRN ×2 (06:21→09:12)
[2019-01-27] MEDS: KCL 10 MEQ TAB (MICRO K) PO SCH (06:21)
[2019-01-27] MEDS: guaiFENesin SYRUP 100 MG/5 ML 10 ML (ROBITUSSIN SF) PEG SCH ×3 (06:21→22:22)
[2019-01-27] MEDS: inSUlin ASPART (NovoLOG) 1 UNIT/0.01 ML (CHARGE PER UNIT) SC SCH ×4 (06:21→21:00)
[2019-01-27] MEDS: aCETylcysteine 20% (MUCOMYST) 30ML SOLN VIAL INH SCH ×2 (07:42→20:48)
[2019-01-27 08:00] VITALS: BP 96/61
--- NOTE | 2019-01-27 08:00 | NUR ---
DENIES ANY DIFFICULTY IN SWALLOWING AND SPEAKING CLEARLY. STATES NOW THAT TRACH IS OUT, IS ABLE TO COUGH UP MUCOUS AND FEELS IS DOING BETTER. LIKES TO TAKE XANAX AM AND PM FOR BETTER MOOD CONTROL. STATES "HEARD A CRACK" IN LEFT SHOULDER LAST NIGHT WHEN MOVING AND "CAN'T MOVE ARM NOW". ASKED ADRIENNE PT TO CHECK AND HE FEELS IT IS OKAY. WILL ALSO NOTIFY DR. GAN.
--- NOTE | 2019-01-27 08:50 | Physical Therapy Daily Note ---
PT Daily Note-Current Subjective Patient in bed pre tx, agrees to PT, has some left arm pain, states he had a pop and pain and was afraid he fractured his arm. Educated patient that it is most likely not a fracture if it happened while he was just laying in bed and most likely impingement of soft tissue. Nurse aware of pain. Appearance Patient in bed post tx with nurse call, tray, laying on left side for pressure relief with pillow support, heels elevated on pillows. Mental Status Patient Orientation: Normal For Age cervical collar Transfers Therapy Code Descriptions/Definitions Functional [place] Measure: 0=Not Assessed/NA 4=Minimal Assistance 1=Total Assistance 5=Supervision or Setup 2=Maximal Assistance 6=Modified [place] 3=Moderate Assistance 7=Complete [place] Therapy Quality Codes: 6 Independent with activity with or without an assistive device 5 Patient requires set up or clean up by helper. Patient completes activity by themselves 4 Supervision or touching assist (CGA). [place] provide cues , steadying ass ist 3 The helper provides less than half the effort to complete the activity 2 The helper provides more than half the effort to complete the activity 1 Dependent. The helper does all the effort to complete an activity 7 Patient refused to complete or attempt activity 9 The patient did not perform the activity before the current illness or injury 88 Not attempted due to Medical conditions or safety concerns Exercises BLE PROM in all planes Treatments PROM Assessment Current Status: Poor Progress No change in mobility but patient maintains no plantarflexion contractures PT Short Term Goals Short Term Goals Time Frame: Jan 17, 2019 Transfers (B,C,W/C) (FIM): 1 Wheelchair (FIM): 4 (if he can get a power chair) Wheelchair Distance: 2000' Wheelchair Level of Assist: 4 PT Teacher Aide Goals Teacher Aide Goals PT Intermediate Goals Time Frame: Jan 31, 2019 Transfers (B,C,W/C) (FIM): 1 Sit to Lying (QC): 1 Lying-Sitting on Side/Bed(QC): 1 Rollin Roll Left to Right (QC): 2 Chair/Qcf-ps-Silnk Xfer(QC): 1 Car Transfer (QC): 1 Wheelchair (FIM): 5 (if he can get a power chair) Distance: 150' Wheelchair Level of Assist: 5 Wheel 50 feet with 2 turns (QC: 4 PT Plan Problem List Problem List: Activity Tolerance, Functional Strength, Safety, Balance, Transfer, Bed Mobility, ROM Treatment/Plan Treatment Plan: Continue Plan of Care Treatment Plan: Bed Mobility, Concurrent Therapy, Education, Functional Activity Estella, Functional Strength, Group Therapy, Safety, Therapeutic Exercise, Transfers Treatment Duration: Jan 31, 2019 Frequency: At least 5 of 7 days/Wk (IRF) Estimated Hrs Per Day: 1.5 hours per day Patient and/or Family Agrees t: Yes Safety Risks/Education Patient Education: Correct Positioning, Safety Issues Teaching Recipient: Patient Teaching Methods: Demonstration, Discussion Response to Teaching: Reinforcement Needed Time/GCodes Time In: 0829 Time Out: 0844 Total Billed Treatment Time: 15 Total Billed Treatment 1 visit EX 15' ADRIENNE DURAN PT Jan 27, 2019 08:50
[2019-01-27] MEDS: MIDODRINE 10 MG (PROAMATINE) TAB PO SCH ×3 (09:06→21:23)
[2019-01-27] MEDS: POT PHOS/NA PHOS (K-PHOS NEUTRAL) PO SCH ×2 (09:06→21:23)
[2019-01-27] MEDS: LORATADINE (CLARITIN) 10 MG TAB PO SCH (09:06)
[2019-01-27] MEDS: FAMOTIDINE 20 MG (PEPCID) TABLET PO SCH ×2 (09:06→21:24)
[2019-01-27] MEDS: SENNA W/DOCUSATE (SENOKOT S) TABLET PO SCH ×2 (09:13→21:20)
--- NOTE | 2019-01-27 12:59 | PM&R Progress Note ---
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 He was unable to maintain his airway. He was intubated at the scene. He was assessed in the ER by Dr. Vaughan trauma surgeon found to have significant hypotension requiring aggressive IV fluids and pressor therapy but then was assessed that he was likely an spinal cord shock and multiple right rib fractures with flail chest requiring transfer to [facility] trauma surgery which resulted in multiple procedures including tracheostomy due to failing weaning protocol on ventilator, PEG tube placement, spine MRIs confirming C3-C7 spinal cord injury complete with plating of ribs 510 on the right side and right sided chest tube. He was found to have drug screen positive for marijuana and methamphetamine. Neurosurgery was consulted perform decompressive laminectomy on C3-C7 with C4-C5 autograft bone screws and rods. He was diagnosed with Haemophilus influenza while intubated and that treatment was completed. He did have rhabdomyolysis from his injuries requiring aggressive IV fluids but they all resolved. Hyperglycemia was diagnosed and he was started on insulin and elevated liver enzymes have improved since admission and hepatitis viral panel along with HIV were negative. He did receive 2 units of packed red blood cells hospitalized. Currently patient is requiring wound care consult by Dr. Craven and general surgery consultation by Dr. García because additional debridement of the sacral decubitus ulcer will be required. He will remain with the c-collar in place until seen Dr. Nesbitt on 01/30/19. Hemoglobin today is 10.1. Dr. Arcos's been consulted for pulmonary issues which she is having increased secretions today in addition urology will be consulted for Zamarripa catheter maintenance for neurogenic bladder. I did speak with Dr. Arcos who will panculture the patient and change breathing treatments to clear secretions. Patient remains total care with quadriplegia. Subjective/Events-last exam Trach was removed Tuesday and has made a great deal of difference just an overall morale and his ability to move his head Talking much clearer and his ability is improving by the day Soft collar in place which is much more comfortable for him Diflucan discontinued since the regimen has been completed yesterday Bowel movements are varied but taking meds when he needs it Now has insurance so reaching out to nursing facilities due to insurance coverage Overall much improved and respiratory status continues to improve Able to navigate the power wheelchair pretty well Remains fully dependent Conferred with RN Reviewed meds and labs Reviewed therapy notes Review of Systems General: Fatigue Neurological: Weakness, Numbness, Incoordination Objective Exam Vital Signs Vital Signs Date Time Temp Pulse Resp B/P (MAP) Pulse Ox O2 Delivery O2 Flow Rate FiO2 01/27/19 09:00 Room Air 01/27/19 07:48 96 01/27/19 05:50 97.3 78 20 111/73 (86) 01/23/19 06:39 6.00 21 Capillary Refill : Less Than 3 SecondsLess Than 3 Seconds General Appearance: No Apparent Distress, WD/WN, Chronically ill HEENT: PERRL/EOMI, Normal ENT Inspection, Pharynx Normal Neck: Supple Respiratory: Chest Non Tender, Lungs Clear, Normal Breath Sounds, No Accessory Muscle Use, No Respiratory Distress Cardiovascular: Regular Rate, Rhythm, No Edema, Normal Peripheral Pulses Gastrointestinal: Normal Bowel Sounds, No Organomegaly, No Pulsatile Mass, Non Tender, Soft, Other (PEG in place) Back: Normal Inspection, No CVA Tenderness, No Vertebral Tenderness Extremity: Normal Capillary Refill, Normal Inspection Neurologic/Psychiatric: Alert, Oriented x3, Normal Mood/Affect, inspector packager II-XII Norm as Tested, Motor Weakness (chest and below neurological deficit) Skin: Normal Color, Other (decubitus ulcer coccyx, eschar in wound no surrounding erythema) Lymphatic: No Adenopathy Results/Procedures Lab Patient resulted labs reviewed. FIM Transfers Therapy Code Descriptions/Definitions Functional [place] Measure: 0=Not Assessed/NA 4=Minimal Assistance 1=Total Assistance 5=Supervision or Setup 2=Maximal Assistance 6=Modified [place] 3=Moderate Assistance 7=Complete [place] Therapy Quality Codes: 6 Independent with activity with or without an assistive device 5 Patient requires set up or clean up by helper. Patient completes activity by themselves 4 Supervision or touching assist (CGA). [place] provide cues , steadying assist 3 The helper provides less than half the effort to complete the activity 2 The helper provides more than half the effort to complete the activity 1 Dependent. The helper does all the effort to complete an activity 7 Patient refused to complete or attempt activity 9 The patient did not perform the activity before the current illness or injury 88 Not attempted due to Medical conditions or safety concerns Transfers (B, C, W/C) (FIM): 1 Scootin Rollin Roll Left to Right (QC): 1 Supine to/from Sit: 1 Sit to/from Stand: 1 Sit to Lying (QC): 1 Sit to Stand (QC): 1 Chair/Ecm-bz-Nkxgp Xfer(QC): 1 Bed to/from Chair: 1 Car Transfer (QC): 1 Gait Training Does the Patient Walk?: No and Walking Goal NOT indicated Wheelchair Training Does the Pt Use a Wheelchair?: Yes Wheelchair (FIM): 4 Wheelchair Distance: 3=150 ft Distance: 2000' Wheelchair Level of Assist: 4 Wheel 50 ft with 2 turns (QC): 4 Wheel 150 ft (QC): 3 Type of Wheelchair: Motorized Mental Status/Objective Comprehension: 6 Expression: 6 Social Interaction: 6 Problem Solvin Memory: 4 ADL-Treatment Feedin Eating (QC): 1 Groomin Oral Hygiene (QC): 1 Bathin Shower/Bathe Self (QC): 1 Upper Extremity Dressin Upper Body Dressing (QC): 1 Lower Extremity Dressin Lower Body Dressing (QC): 1 On/Off Footwear (QC): 1 Toiletin Toileting Hygiene (QC): 1 Toilet/Commode Transfer: 1 Toilet Transfer (QC): 1 Assessment/Plan Assessment and Plan Assess & Plan/Chief Complaint Assessment: 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 Nesbitt at [facility] 12/07/18 Rib plating on the right Closed right scapular fracture Diabetes mellitus iki-fi-jlytjag requiring insulin now improved PEG tube status and likely will DC in the next several weeks Trach dependent s/p removal 01/26/19 Anemia Hypertension DVT prophylaxis with Lovenox Neurogenic bladder requiring Zamarripa catheter and urology recommends maintained to help heal decubitus ulcer in the meantime Decubitus ulcer s/p debridement but appears to need additional debridement prn if worsens OJ Psychosis resolved with Seroquel Depression placed on Celexa Ileus-resolved Plan: Debridement per Dr. García and Dr. Craven and it appears to need additional debridement in the future until healed Wound VAC after debridement if needed Maintained on Lovenox Consult urology is appreciated but no DC cath until coccyx ulcer is healed Rehabilitation to focus on transfers and lessen burden on caretakers assisted placement now that he now has Medicaid Removes neck brace while sleeping to aid in alleviation of discomfort causing behaviors and will await NSG recs for brace removal at his request Seroquel at night Celexa in the morning Advanced diet Supplement potassium Stop Diflucan 08.08 today DC PEG in next 6 weeks DC trach NHP once approved and now he has Medicaid so that will help dispo (1) Spinal cord injury at C1-C4 level (2) Anemia (3) Anxiety Status: Chronic (4) Chronic pain Status: Chronic (5) Neurogenic bladder (6) HLD (hyperlipidemia) Status: Chronic (7) Tracheostomy dependent (8) DVT prophylaxis Status: Acute (9) Post-traumatic quadriplegia (10) Closed right scapular fracture (11) Right rib fracture (12) Right pulmonary contusion (13) Decubitus ulcer of coccygeal region, stage 4 (14) Shock due to spinal cord injury (15) Diabetes mellitus (16) Elevated blood pressure reading Status: Acute (17) Hospital discharge follow-up (18) Septic prepatellar bursitis of left knee (19) septic bursa (20) Paresthesias Status: Acute (21) Uncontrolled diabetes mellitus Status: Chronic (22) Illicit drug use Status: Acute (23) Cellulitis Status: Acute (24) Hyperglycemia Status: Acute (25) Sepsis Status: Acute (26) Hypertension Status: Chronic (27) Type 2 diabetes mellitus with hyperglycemia Status: Chronic (28) PEG (percutaneous endoscopic gastrostomy) status MARGUERITE GAN DO Jan 27, 2019 12:59
--- NOTE | 2019-01-27 13:00 | NUR ---
ASKED DR. GAN IF PERRY CATHETER SHOULD BE REPLACED AND SHE STATES CHANGE AFTER ONE MONTH. ATTEMPTING TO FIND OUT HOW OLD PERRY IS. PATIENT STATES "CAN FEEL PARTS OF LEGS AT TIMES".
[2019-01-27] MEDS: ENOXAPARIN 40 MG/0.4 ML (LOVENOX) SYR SC SCH (13:06)
[2019-01-27] MEDS: APAP 325 MG/10.15 ML LIQ (TYLENOL) UDC PO PRN ×2 (14:36→21:26)
[2019-01-27 17:05] VITALS: BP 156/84
--- NOTE | 2019-01-27 18:30 | NUR ---
PATIENT STATES HIS ACCIDENT WAS AND HAS PROBABLY HAD CATHETER IN SINCE THAT TIME. #16 FR. PERRY CATHETER INSERTED WITHOUT DIFFICULTY. DR. GAN STATES PLAN IS TO DC PEG AFTER 12 WEEKS FROM INSERTION. Addendum: 01/27/19 at 1944 by EHSAN SMALL RN PATIENT STATES HIS ACCIDENT WAS ON DECEMBER 07.
--- NOTE | 2019-01-27 19:10 | NUR ---
bedside report received from ASAEL BONILLA, assume care of pt
--- NOTE | 2019-01-27 21:00 | NUR ---
fsbs 190 no ss insulin req
--- NOTE | 2019-01-27 21:05 | NUR ---
assessments & interventions completed, see assessments & interventions, repositioned q 2hrs
[2019-01-27] MEDS: ALPRAZolam 0.5 MG (XANAX) TAB PO PRN (21:23)
[2019-01-27] MEDS: MONTELUKAST 10 MG (SINGULAIR) TAB PO SCH (21:23)
[2019-01-27] MEDS: QUEtiapine 25 MG (SEROquel) TAB IMMEDIATE RELEASE PO SCH (21:23)
[2019-01-27] MEDS: MELATONIN 3 MG TABLET PO SCH (21:24)
--- NOTE | 2019-01-27 21:26 | NUR ---
took pills without difficulty but whe taking tylenol 650mg liq pt wanted whole liq amt in mouth at time tried giving sip but pt insisted on whole amt given for pain level 7/10 on numeric scale, pt became choked, pt after coughing able to swallow water advised need to leave hob up for a while
--- NOTE | 2019-01-27 21:50 | NUR ---
pt c/o not able to breathe well, pt able to talk, tried oral suction but nothing there, lungs sound coarse & diminished, 02 sat 88-89% 02 applied at 2l/m per nc
--- NOTE | 2019-01-27 22:05 | NUR ---
RT here trying to get pt to cough, states tried of coughing tried to get us to suction old stoma from old trach RT told pt could not do that, pt refuses to do incentive states he is tired, RT changed old stoma dressing & cleaned site
--- NOTE | 2019-01-27 22:15 | NUR ---
pain level 4/10 on numeric scale
--- NOTE | 2019-01-27 22:28 | NUR ---
notified of pt choking, lung sounds, 02 sats applied 02 2l/m per nc & pt refusing to do incentive orders received to watch him
--- NOTE | 2019-01-27 22:50 | NUR ---
02 sat 99% on 2l/m per nc
[2019-01-27] MEDS: CATHETER FLUSH 10 ML SYR IV PRN (23:00)
[2019-01-28] MEDS: RT-ALBUTEROL/IPRATROPIUM 3 ML (DUONEB) VIAL INH SCH ×4 (02:56→20:10)
[2019-01-28 06:00] VITALS: BP 103/70
[2019-01-28] MEDS: inSUlin ASPART (NovoLOG) 1 UNIT/0.01 ML (CHARGE PER UNIT) SC SCH ×4 (06:15→20:58)
[2019-01-28] MEDS: KCL 10 MEQ TAB (MICRO K) PO SCH (06:22)
[2019-01-28] MEDS: guaiFENesin SYRUP 100 MG/5 ML 10 ML (ROBITUSSIN SF) PEG SCH ×3 (06:22→23:25)
[2019-01-28] MEDS: ALPRAZolam 0.5 MG (XANAX) TAB PEG PRN ×2 (06:22→20:04)
--- NOTE | 2019-01-28 06:30 | NUR ---
wanted 02 off advised would turn off & check 02 sat if ok will leave 02 off
--- NOTE | 2019-01-28 06:40 | NUR ---
02 sat 96% on room air 02 left off
--- NOTE | 2019-01-28 07:07 | NUR ---
bedside report given to HARJIT BONILLA
--- NOTE | 2019-01-28 07:22 | Pulmonary Progress Note ---
Subjective Time Seen by a Provider: 11:46 Sepsis Event Evaluation Height, Weight, BMI Height: 5'3.00" Weight: 146lbs. 9.6oz. 66.058406sr; 26.1 BMI Method:Stated Exam Exam Vital Signs Date Time Temp Pulse Resp B/P (MAP) Pulse Ox O2 Delivery O2 Flow Rate FiO2 01/28/19 06:00 97.0 75 18 103/70 (81) 96 Room Air 01/28/19 03:00 95 Nasal Cannula 01/27/19 22:00 89 Room Air 01/27/19 21:30 Nasal Cannula 2.00 01/27/19 21:05 Room Air 01/27/19 20:48 95 Room Air 01/27/19 17:05 98.4 67 18 156/84 (108) 98 Room Air 01/27/19 15:17 96 Room Air 01/27/19 09:00 Room Air 01/27/19 08:00 89 96/61 (73) 95 Room Air 01/27/19 07:48 96 Room Air I & O 01/28/19 07:00 Intake Total 2600 ml Output Total 3100 ml Balance -500 ml Height & Weight Height: 5'3.00" Weight: 146lbs. 9.6oz. 66.245103wu; 26.1 BMI Method:Stated General Appearance: No Apparent Distress, WD/WN, Chronically ill HEENT: PERRL/EOMI, Normal ENT Inspection, Pharynx Normal Neck: Supple Respiratory: Chest Non Tender, Lungs Clear, Normal Breath Sounds, No Accessory Muscle Use, No Respiratory Distress Cardiovascular: Regular Rate, Rhythm, No Edema, Normal Peripheral Pulses Capillary Refill: Less Than 3 Seconds Gastrointestinal: soft, distended (mildly distended) Extremity: Normal Capillary Refill, Normal Inspection Neurologic/Psychiatric: Alert, Oriented x3, Normal Mood/Affect, ground defence officer II-XII Norm as Tested, Motor Weakness (chest and below neurological deficit) Skin: Normal Color, Other (decubitus ulcer coccyx, eschar in wound no surrounding erythema) Lymphatic: No Adenopathy Assessment/Plan Assessment/Plan 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 Nesbitt at [facility] Tracheostomy -SVNS with DuoNeb and Mucomyst -s/p tracheostomy tube -Check labs and CXR Decubitus ulcer stage 4 -wound care Rib plating on the right Closed right scapular fracture Diabetes mellitus [id number] requiring insulin PEG tube status Anemia -Monitor Hypertension Neurogenic bladder with Zamarripa catheter Decubitus ulcer in need of debridement -Wound vac -Surgery following Illicit drug use ALONDRA HUSSEIN DO Jan 28, 2019 07:22
[2019-01-28 08:01] LABS: BASOPHILS % (AUTO) 0 % (0-10); EOSINOPHILS # (AUTO) 0.1 10^3/uL (0.0-0.3); EOSINOPHILS % (AUTO) 1 % (0-10); HEMATOCRIT 33 % (40-54); HEMOGLOBIN 10.5 G/DL (13.3-17.7); LYMPHOCYTES # (AUTO) 2.2 X 10^3 (1.0-4.0); LYMPHOCYTES % (AUTO) 28 % (12-44); MEAN CORPUSCULAR HEMOGLOBIN 30 PG (25-34); MEAN CORPUSCULAR HGB CONC 32 G/DL (32-36); MEAN CORPUSCULAR VOLUME 93 FL (80-99); MEAN PLATELET VOLUME 7.9 FL (7.4-10.4); MONOCYTES % (AUTO) 13 % (0-12); NEUTROPHILS # (AUTO) 4.6 X 10^3 (1.8-7.8); NEUTROPHILS % (AUTO) 58 % (42-75); PLATELET COUNT 239 10^3/uL (130-400); WHITE BLOOD COUNT 7.9 10^3/uL (4.3-11.0)
[2019-01-28 08:18] LABS: BUN/CREATININE RATIO 12; CALCIUM 9.7 MG/DL (8.5-10.1); CARBON DIOXIDE 20 MMOL/L (21-32); CHLORIDE 106 MMOL/L (98-107); CREATININE SERUM 0.65 MG/DL (0.60-1.30); GFR ESTIMATED > 60; GLUCOSE 109 MG/DL (70-105); MAGNESIUM 1.7 MG/DL (1.8-2.4); PHOSPHORUS 3.5 MG/DL (2.3-4.7); SODIUM 138 MMOL/L (135-145)
[2019-01-28] MEDS: FAMOTIDINE 20 MG (PEPCID) TABLET PO SCH ×2 (09:01→20:03)
[2019-01-28] MEDS: LORATADINE (CLARITIN) 10 MG TAB PO SCH (09:01)
[2019-01-28] MEDS: POT PHOS/NA PHOS (K-PHOS NEUTRAL) PO SCH ×2 (09:02→20:03)
--- NOTE | 2019-01-28 09:03 | Diagnostic Imaging Report ---
Examination: Single upright view of the chest Indication: Shortness of breath. Comparison: Multiple priors, most recent performed on 01/16/2019. Findings: Interval removal of endotracheal tube. Left upper extremity PICC remains in place, with distal tip overlying the SVC. Lungs are clear and the pulmonary vasculature is normal. No pneumothorax or a large pleural effusion. The cardio mediastinal silhouette is unchanged. Fixation devices are again demonstrated. Impression: No radiographic evidence of acute chest disease. Left upper extremity PICC remains in place. Dictated by: Dictated on workstation # [id number]
[2019-01-28] MEDS: MIDODRINE 10 MG (PROAMATINE) TAB PO SCH ×3 (09:04→20:04)
[2019-01-28] MEDS: SENNA W/DOCUSATE (SENOKOT S) TABLET PO SCH ×2 (09:05→20:03)
[2019-01-28] MEDS: aCETylcysteine 20% (MUCOMYST) 30ML SOLN VIAL INH SCH ×2 (09:57→20:10)
--- NOTE | 2019-01-28 10:23 | NUR ---
Magnesium is 1.7. Dr. Arcos notified. Orders to give 3 grams of Mag Sulfate IV.
[2019-01-28] MEDS: MAGNESIUM 1 GM/100 ML IVPB 100 ML IV SCH ×3 (11:29→13:27)
--- NOTE | 2019-01-28 12:14 | PM&R Progress Note ---
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 He was unable to maintain his airway. He was intubated at the scene. He was assessed in the ER by Dr. Vaughan trauma surgeon found to have significant hypotension requiring aggressive IV fluids and pressor therapy but then was assessed that he was likely an spinal cord shock and multiple right rib fractures with flail chest requiring transfer to [facility] trauma surgery which resulted in multiple procedures including tracheostomy due to failing weaning protocol on ventilator, PEG tube placement, spine MRIs confirming C3-C7 spinal cord injury complete with plating of ribs 510 on the right side and right sided chest tube. He was found to have drug screen positive for marijuana and methamphetamine. Neurosurgery was consulted perform decompressive laminectomy on C3-C7 with C4-C5 autograft bone screws and rods. He was diagnosed with Haemophilus influenza while intubated and that treatment was completed. He did have rhabdomyolysis from his injuries requiring aggressive IV fluids but they all resolved. Hyperglycemia was diagnosed and he was started on insulin and elevated liver enzymes have improved since admission and hepatitis viral panel along with HIV were negative. He did receive 2 units of packed red blood cells hospitalized. Currently patient is requiring wound care consult by Dr. Craven and general surgery consultation by Dr. García because additional debridement of the sacral decubitus ulcer will be required. He will remain with the c-collar in place until seen Dr. Nesbitt on 01/30/19. Hemoglobin today is 10.1. Dr. Arcos's been consulted for pulmonary issues which she is having increased secretions today in addition urology will be consulted for Azmarripa catheter maintenance for neurogenic bladder. I did speak with Dr. Arcos who will panculture the patient and change breathing treatments to clear secretions. Patient remains total care with quadriplegia. Subjective/Events-last exam Trach was removed Tuesday and has made a great deal of difference just an overall morale and his ability to move his head Talking much clearer and his ability is improving by the day Soft collar in place which is much more comfortable for him Diflucan discontinued since the regimen has been completed Tuesday Bowel movements are varied but taking meds when he needs it Now has insurance so reaching out to nursing facilities due to insurance coverage Overall much improved and respiratory status continues to improve but did have cough episode and felt like he couldn't clear his secretions and Dr Arcos saw him ordered labs and CXR which was clear Able to navigate the power wheelchair pretty well Remains fully dependent Conferred with RN Reviewed meds and labs Reviewed therapy notes Dispo this week Review of Systems Pulmonary: Dyspnea, Cough Neurological: Weakness, Numbness, Incoordination Objective Exam Vital Signs Vital Signs Date Time Temp Pulse Resp B/P (MAP) Pulse Ox O2 Delivery O2 Flow Rate FiO2 01/28/19 13:34 71 121/72 (88) 01/28/19 09:57 96 Room Air 01/28/19 06:00 97.0 18 01/27/19 21:30 2.00 01/23/19 06:39 21 Capillary Refill : Less Than 3 SecondsLess Than 3 Seconds General Appearance: No Apparent Distress, WD/WN, Chronically ill HEENT: PERRL/EOMI, Normal ENT Inspection, Pharynx Normal Neck: Supple Respiratory: Chest Non Tender, Lungs Clear, Normal Breath Sounds, No Accessory Muscle Use, No Respiratory Distress Cardiovascular: Regular Rate, Rhythm, No Edema, Normal Peripheral Pulses Gastrointestinal: Normal Bowel Sounds, No Organomegaly, No Pulsatile Mass, Non Tender, Soft, Other (PEG in place) Back: Normal Inspection, No CVA Tenderness, No Vertebral Tenderness Extremity: Normal Capillary Refill, Normal Inspection Neurologic/Psychiatric: Alert, Oriented x3, Normal Mood/Affect, sidehand II-XII Norm as Tested, Motor Weakness (chest and below neurological deficit) Skin: Normal Color, Other (decubitus ulcer coccyx, eschar in wound no surrounding erythema) Lymphatic: No Adenopathy Results/Procedures Lab Laboratory Tests 01/28/19 07:53 Patient resulted labs reviewed. FIM Transfers Therapy Code Descriptions/Definitions Functional [place] Measure: 0=Not Assessed/NA 4=Minimal Assistance 1=Total Assistance 5=Supervision or Setup 2=Maximal Assistance 6=Modified [place] 3=Moderate Assistance 7=Complete [place] Therapy Quality Codes: 6 Independent with activity with or without an assistive device 5 Patient requires set up or clean up by helper. Patient completes activity by themselves 4 Supervision or touching assist (CGA). [place] provide cues , steadying assist 3 The helper provides less than half the effort to complete the activity 2 The helper provides more than half the effort to complete the activity 1 Dependent. The helper does all the effort to complete an activity 7 Patient refused to complete or attempt activity 9 The patient did not perform the activity before the current illness or injury 88 Not attempted due to Medical conditions or safety concerns Transfers (B, C, W/C) (FIM): 1 Scootin Rollin Roll Left to Right (QC): 1 Supine to/from Sit: 1 Sit to/from Stand: 1 Sit to Lying (QC): 1 Sit to Stand (QC): 1 Chair/[id number]-Lqttw Xfer(QC): 1 Bed to/from Chair: 1 Car Transfer (QC): 1 Gait Training Does the Patient Walk?: No and Walking Goal NOT indicated Wheelchair Training Does the Pt Use a Wheelchair?: Yes Wheelchair (FIM): 4 Wheelchair Distance: 3=150 ft Distance: 2000' Wheelchair Level of Assist: 4 Wheel 50 ft with 2 turns (QC): 4 Wheel 150 ft (QC): 3 Type of Wheelchair: Motorized Mental Status/Objective Comprehension: 6 Expression: 6 Social Interaction: 6 Problem Solvin Memory: 4 ADL-Treatment Feedin Eating (QC): 1 Groomin Oral Hygiene (QC): 1 Bathin Shower/Bathe Self (QC): 1 Upper Extremity Dressin Upper Body Dressing (QC): 1 Lower Extremity Dressin Lower Body Dressing (QC): 1 On/Off Footwear (QC): 1 Toiletin Toileting Hygiene (QC): 1 Toilet/Commode Transfer: 1 Toilet Transfer (QC): 1 Assessment/Plan Assessment and Plan Assess & Plan/Chief Complaint Assessment: 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 Nesbitt at [facility] 12/07/18 Rib plating on the right Closed right scapular fracture Diabetes mellitus [id number] requiring insulin now improved PEG tube status and likely will DC in the next several weeks Trach dependent s/p removal 01/26/19 Anemia Hypertension DVT prophylaxis with Lovenox Neurogenic bladder requiring Zamarripa catheter and urology recommends maintained to help heal decubitus ulcer in the meantime Decubitus ulcer s/p debridement but appears to need additional debridement prn if worsens OJ Psychosis resolved with Seroquel Depression placed on Celexa Ileus-resolved Plan: Debridement per Dr. García and Dr. Craven and it appears to need additional debridement in the future until healed Wound VAC after debridement if needed Maintained on Lovenox Consult urology is appreciated but no DC cath until coccyx ulcer is healed Rehabilitation to focus on transfers and lessen burden on caretakers detention placement now that he now has Medicaid Removes neck brace while sleeping to aid in alleviation of discomfort causing behaviors and will await NSG recs for brace removal at his request Seroquel at night Celexa in the morning Advanced diet Supplement potassium Stop Diflucan since completed treatment DC PEG in next 6 weeks DC trach and doing well NHP once approved and now he has Medicaid so that will help dispo (1) Spinal cord injury at C1-C4 level (2) Anemia (3) Anxiety Status: Chronic (4) Chronic pain Status: Chronic (5) Neurogenic bladder (6) HLD (hyperlipidemia) Status: Chronic (7) Tracheostomy dependent (8) DVT prophylaxis Status: Acute (9) Post-traumatic quadriplegia (10) Closed right scapular fracture (11) Right rib fracture (12) Right pulmonary contusion (13) Decubitus ulcer of coccygeal region, stage 4 (14) Shock due to spinal cord injury (15) Diabetes mellitus (16) Elevated blood pressure reading Status: Acute (17) Hospital discharge follow-up (18) Septic prepatellar bursitis of left knee (19) septic bursa (20) Paresthesias Status: Acute (21) Uncontrolled diabetes mellitus Status: Chronic (22) Illicit drug use Status: Acute (23) Cellulitis Status: Acute (24) Hyperglycemia Status: Acute (25) Sepsis Status: Acute (26) Hypertension Status: Chronic (27) Type 2 diabetes mellitus with hyperglycemia Status: Chronic (28) PEG (percutaneous endoscopic gastrostomy) status MARGUERITE GAN DO Jan 28, 2019 12:14
[2019-01-28] MEDS: ENOXAPARIN 40 MG/0.4 ML (LOVENOX) SYR SC SCH (13:30)
[2019-01-28 13:34] VITALS: BP 121/72
[2019-01-28 17:06] VITALS: BP 134/80
--- NOTE | 2019-01-28 17:08 | NUR ---
PEG tube flushed with 60mls of H20.
[2019-01-28] MEDS: QUEtiapine 25 MG (SEROquel) TAB IMMEDIATE RELEASE PO SCH (20:03)
[2019-01-28] MEDS: MONTELUKAST 10 MG (SINGULAIR) TAB PO SCH (20:03)
[2019-01-28] MEDS: MELATONIN 3 MG TABLET PO SCH (20:54)
--- NOTE | 2019-01-28 21:00 | NUR ---
Xanax given for c/o anxiety. Patient ate snack for fsbs 136mg/dl. Patient reports this is 'low' for hin and fears hypoglycemia in a.m. Patient dressing changed to coccyx. Wound parameter macerated. Applied alcare and abd. Patient turned q2. denies needs or c/o at this time.
[2019-01-29] MEDS: RT-ALBUTEROL/IPRATROPIUM 3 ML (DUONEB) VIAL INH SCH ×4 (02:38→23:47)
[2019-01-29] MEDS ORDERED: RT-ALBUTEROL SULF 2.5 MG/3 ML PRE-MIX VIAL INH PRN (06:00)
[2019-01-29] MEDS: guaiFENesin SYRUP 100 MG/5 ML 10 ML (ROBITUSSIN SF) PEG SCH ×3 (06:13→22:34)
[2019-01-29] MEDS: KCL 10 MEQ TAB (MICRO K) PO SCH (06:13)
[2019-01-29] MEDS: ALPRAZolam 0.5 MG (XANAX) TAB PEG PRN (06:20)
[2019-01-29] MEDS: inSUlin ASPART (NovoLOG) 1 UNIT/0.01 ML (CHARGE PER UNIT) SC SCH ×4 (06:26→21:17)
[2019-01-29 06:52] VITALS: BP 96/66
--- NOTE | 2019-01-29 07:41 | Progress Note - Surgery ---
JUICE SAMSON,MED STUDENT 01/29/19 0741: Subjective Date Seen by a Provider: Jan 29, 2019 Time Seen by a Provider: 07:20 Subjective/Events-last exam PT pleased trach collar has been removed, remains in cervical collar. States reduced respiratory difficulty. Denies chest pain, shortness of breath, abdominal pain, nausea, vomiting, fever, chills, night sweats. Wound dressing changed this morning. Review of Systems General: No Chills, No Night Sweats Pulmonary: No Dyspnea Cardiovascular: No: Chest Pain Gastrointestinal: No: Nausea, Vomiting, Abdominal Pain Objective Exam Vital Signs Date Time Temp Pulse Resp B/P (MAP) Pulse Ox O2 Delivery O2 Flow Rate FiO2 01/29/19 06:52 97.2 80 16 96/66 (76) 96 Room Air 01/29/19 02:38 97 Room Air 01/28/19 20:10 95 Room Air 01/28/19 19:40 Room Air 01/28/19 17:06 97.2 66 20 134/80 (98) 98 Room Air 01/28/19 16:31 97 Room Air 01/28/19 13:34 71 121/72 (88) 01/28/19 09:57 96 Room Air 01/28/19 09:00 Room Air I & O 01/29/19 07:00 Intake Total 2270 ml Output Total 3600 ml Balance -1330 ml Capillary Refill : Less Than 3 SecondsLess Than 3 Seconds General Appearance: No Apparent Distress, WD/WN, Chronically ill HEENT: PERRL/EOMI, Pharynx Normal Neck: Non Tender, Supple, Other (cervical collar in place) Respiratory: Chest Non Tender, Lungs Clear, No Accessory Muscle Use, No Respiratory Distress Cardiovascular: Regular Rate, Rhythm, No Edema Gastrointestinal: soft, distended (mildly distended) Extremity: Normal Inspection Neurologic/Psychiatric: Alert, Oriented x3, Normal 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, 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 as Tested, Motor Weakness (chest and below neurological deficit) Skin: Normal Color, Warm/Dry, Other (decubitus ulcer coccyx, eschar in wound no surrounding erythema) Lymphatic: No Adenopathy Results Lab Laboratory Tests 01/28/19 07:53: White Blood Count 7.9, Red Blood Count 3.50L, Hemoglobin 10.5L, Hematocrit 33L, Mean Corpuscular Volume 93, Mean Corpuscular Hemoglobin 30, Mean Corpuscular Hemoglobin Concent 32, Red Cell Distribution Width 14.0, Platelet Count 239, Mean Platelet Volume 7.9, Neutrophils (%) (Auto) 58, Lymphocytes (%) (Auto) 28, Monocytes (%) (Auto) 13H, Eosinophils (%) (Auto) 1, Basophils (%) (Auto) 0, Neutrophils # (Auto) 4.6, Lymphocytes # (Auto) 2.2, Monocytes # (Auto) 1.0, Eosinophils # (Auto) 0.1, Basophils # (Auto) 0.0, Sodium Level 138, Potassium Level 4.0, Chloride Level 106, Carbon Dioxide Level 20L, Anion Gap 12, Blood Urea Nitrogen 8, Creatinine 0.65, Estimat Glomerular Filtration Rate > 60, BUN /Creatinine Ratio 12, Glucose Level 109H, Calcium Level 9.7, Phosphorus Level 3.5, Magnesium Level 1.7L, B-Type Natriuretic Peptide 88.3 01/28/19 11:07: Glucometer 225H 01/28/19 15:08: Glucometer 202H 01/28/19 20:24: Glucometer 135H 01/29/19 06:25: Glucometer 106 Microbiology 01/10/19 Blood Culture - Final, Complete No growth 01/10/19 Gram Stain - Final, Complete 01/10/19 Sputum Culture - Final, Complete Usual upper respiratory aaron YEAST Assessment/Plan Assessment/Plan Assessment/Plan 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 abdominal distention improved and having function Decubitus ulcer coccyx wound care ileus-resolved Decubitus ulcer -continue wound care, debridement prn will follow periodically, call if needed Clinical Quality Measures DVT/VTE Risk/Contraindication: Risk Factor Score Per Nursin RFS Level Per Nursing on Admit: 4+=Very High MACIEL GARCÍA DO 01/30/19 1132: Supervisory-Addendum Brief Verification & Attestation Time: Verification & Attestat.: 12:01 Participated in pt care: history, MDM Personally performed: exam, MDM Care discussed with: Medical Student Procedures: n/a Verification and Attestation of Medical Student E/M Service A medical student performed and documented this service in my presence. I reviewed and verified all information documented by the medical student and made modifications to such information, when appropriate. I personally performed the physical exam and medical decision making. Maciel García, Jan 30, 2019,11:31 JUICE SAMSON,MED STUDENT Jan 29, 2019 07:41 MACIEL GARCÍA DO Jan 30, 2019 11:32
--- NOTE | 2019-01-29 08:11 | PM&R Progress Note ---
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 He was unable to maintain his airway. He was intubated at the scene. He was assessed in the ER by Dr. Vaughan trauma surgeon found to have significant hypotension requiring aggressive IV fluids and pressor therapy but then was assessed that he was likely an spinal cord shock and multiple right rib fractures with flail chest requiring transfer to [facility] trauma surgery which resulted in multiple procedures including tracheostomy due to failing weaning protocol on ventilator, PEG tube placement, spine MRIs confirming C3-C7 spinal cord injury complete with plating of ribs 510 on the right side and right sided chest tube. He was found to have drug screen positive for marijuana and methamphetamine. Neurosurgery was consulted perform decompressive laminectomy on C3-C7 with C4-C5 autograft bone screws and rods. He was diagnosed with Haemophilus influenza while intubated and that treatment was completed. He did have rhabdomyolysis from his injuries requiring aggressive IV fluids but they all resolved. Hyperglycemia was diagnosed and he was started on insulin and elevated liver enzymes have improved since admission and hepatitis viral panel along with HIV were negative. He did receive 2 units of packed red blood cells hospitalized. Currently patient is requiring wound care consult by Dr. Craven and general surgery consultation by Dr. García because additional debridement of the sacral decubitus ulcer will be required. He will remain with the c-collar in place until seen Dr. Nesbitt on 01/30/19. Hemoglobin today is 10.1. Dr. Arcos's been consulted for pulmonary issues which she is having increased secretions today in addition urology will be consulted for Zamarripa catheter maintenance for neurogenic bladder. I did speak with Dr. Arcos who will panculture the patient and change breathing treatments to clear secretions. Patient remains total care with quadriplegia. Subjective/Events-last exam s/p magnesium fo 3 grams yesterday Changed dressing yesterday and Dr. James will be updated Sent his case to [facility] since he now has Medicaid so will await disposition on that Doing very well on soft collar and trach discontinuation Able to navigate the power wheelchair pretty well Remains fully dependent Conferred with RN Reviewed meds and labs Reviewed therapy notes Dispo this week Review of Systems General: Fatigue Neurological: Weakness, Numbness, Incoordination Objective Exam Vital Signs Vital Signs Date Time Temp Pulse Resp B/P (MAP) Pulse Ox O2 Delivery O2 Flow Rate FiO2 01/29/19 17:08 97.3 70 18 114/72 (86) 98 Room Air 01/27/19 21:30 2.00 01/23/19 06:39 21 Capillary Refill : Less Than 3 SecondsLess Than 3 Seconds General Appearance: No Apparent Distress, WD/WN, Chronically ill HEENT: PERRL/EOMI, Pharynx Normal Neck: Non Tender, Supple, Other (cervical collar in place) Respiratory: Chest Non Tender, Lungs Clear, No Accessory Muscle Use, No Respiratory Distress Cardiovascular: Regular Rate, Rhythm, No Edema Gastrointestinal: Normal Bowel Sounds, No Organomegaly, No Pulsatile Mass, Non Tender, Soft, Other (PEG in place) Back: Normal Inspection, No CVA Tenderness, No Vertebral Tenderness Extremity: Normal Inspection Neurologic/Psychiatric: Alert, Oriented x3, Normal Mood/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 FIM Transfers Therapy Code Descriptions/Definitions Functional [place] Measure: 0=Not Assessed/NA 4=Minimal Assistance 1=Total Assistance 5=Supervision or Setup 2=Maximal Assistance 6=Modified [place] 3=Moderate Assistance 7=Complete [place] Therapy Quality Codes: 6 Independent with activity with or without an assistive device 5 Patient requires set up or clean up by helper. Patient completes activity by themselves 4 Supervision or touching assist (CGA). [place] provide cues , steadying assist 3 The helper provides less than half the effort to complete the activity 2 The helper provides more than half the effort to complete the activity 1 Dependent. The helper does all the effort to complete an activity 7 Patient refused to complete or attempt activity 9 The patient did not perform the activity before the current illness or injury 88 Not attempted due to Medical conditions or safety concerns Transfers (B, C, W/C) (FIM): 1 Scootin Rollin Roll Left to Right (QC): 1 Supine to/from Sit: 1 Sit to/from Stand: 1 Sit to Lying (QC): 1 Sit to Stand (QC): 1 Chair/Yam-rn-Pemru Xfer(QC): 1 Bed to/from Chair: 1 Car Transfer (QC): 1 Gait Training Does the Patient Walk?: No and Walking Goal NOT indicated Wheelchair Training Does the Pt Use a Wheelchair?: Yes Wheelchair (FIM): 4 Wheelchair Distance: 3=150 ft Distance: 1999' Wheelchair Level of Assist: 4 Wheel 50 ft with 2 turns (QC): 4 Wheel 150 ft (QC): 3 Type of Wheelchair: Motorized Mental Status/Objective Comprehension: 6 Expression: 6 Social Interaction: 6 Problem Solvin Memory: 4 ADL-Treatment Feedin Eating (QC): 1 Groomin Oral Hygiene (QC): 1 Bathin Shower/Bathe Self (QC): 1 Upper Extremity Dressin Upper Body Dressing (QC): 1 Lower Extremity Dressin Lower Body Dressing (QC): 1 On/Off Footwear (QC): 1 Toiletin Toileting Hygiene (QC): 1 Toilet/Commode Transfer: 1 Toilet Transfer (QC): 1 Assessment/Plan Assessment and Plan Assess & Plan/Chief Complaint Assessment: 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 Nesbitt at [facility] 12/07/18 Rib plating on the right Closed right scapular fracture Diabetes mellitus [id number] requiring insulin now improved PEG tube status and likely will DC in the next several weeks Trach dependent s/p removal 01/26/19 Anemia Hypertension DVT prophylaxis with Lovenox Neurogenic bladder requiring Zamarripa catheter and urology recommends maintained to help heal decubitus ulcer in the meantime Decubitus ulcer s/p debridement but appears to need additional debridement prn if worsens OJ Psychosis resolved with Seroquel Depression placed on Celexa Ileus-resolved Plan: Debridement per Dr. García and Dr. Craven and it appears to need additional debridement in the future until healed Wound VAC after debridement if needed Maintained on Lovenox Consult urology is appreciated but no DC cath until coccyx ulcer is healed Rehabilitation to focus on transfers and lessen burden on caretakers senior care placement now that he now has Medicaid Removes neck brace while sleeping to aid in alleviation of discomfort causing behaviors and will await NSG recs for brace removal at his request Seroquel at night Celexa in the morning Advanced diet Supplement potassium Stop Diflucan since completed treatment DC PEG in next 6 weeks DC trach and doing well NHP once approved and now he has Medicaid so that will help dispo (1) Spinal cord injury at C1-C4 level (2) Anemia (3) Anxiety Status: Chronic (4) Chronic pain Status: Chronic (5) Neurogenic bladder (6) HLD (hyperlipidemia) Status: Chronic (7) Tracheostomy dependent (8) DVT prophylaxis Status: Acute (9) Post-traumatic quadriplegia (10) Closed right scapular fracture (11) Right rib fracture (12) Right pulmonary contusion (13) Decubitus ulcer of coccygeal region, stage 4 (14) Shock due to spinal cord injury (15) Diabetes mellitus (16) Elevated blood pressure reading Status: Acute (17) Hospital discharge follow-up (18) Septic prepatellar bursitis of left knee (19) septic bursa (20) Paresthesias Status: Acute (21) Uncontrolled diabetes mellitus Status: Chronic (22) Illicit drug use Status: Acute (23) Cellulitis Status: Acute (24) Hyperglycemia Status: Acute (25) Sepsis Status: Acute (26) Hypertension Status: Chronic (27) Type 2 diabetes mellitus with hyperglycemia Status: Chronic (28) PEG (percutaneous endoscopic gastrostomy) status MARGUERITE GAN DO Jan 29, 2019 08:11
--- NOTE | 2019-01-29 09:03 | Physical Therapy Daily Note ---
PT Daily Note-Current Subjective Pt. in bed agrees to Rx, would like to get in the shower but understands that it may be precarious for safety reasons. Pt. agrees to bed bath and hair washing. Pt. c/o some discomfort in shoulders and wants them gently "moved around " Pain Numeric Pain Scale: 4 Location: Left Location Body Site: Shoulder Pain Description: Ache Mental Status Patient Orientation: Normal For Age Attachments: Zamarripa Catheter Transfers Therapy Code Descriptions/Definitions Functional [place] Measure: 0=Not Assessed/NA 4=Minimal Assistance 1=Total Assistance 5=Supervision or Setup 2=Maximal Assistance 6=Modified [place] 3=Moderate Assistance 7=Complete [place] Therapy Quality Codes: 6 Independent with activity with or without an assistive device 5 Patient requires set up or clean up by helper. Patient completes activity by themselves 4 Supervision or touching assist (CGA). [place] provide cues , steadying assist 3 The helper provides less than half the effort to complete the activity 2 The helper provides more than half the effort to complete the activity 1 Dependent. The helper does all the effort to complete an activity 7 Patient refused to complete or attempt activity 9 The patient did not perform the activity before the current illness or i njury 88 Not attempted due to Medical conditions or safety concerns Transfers (B, C, W/C) (FIM): 1 Scootin Rollin Supine to/from Sit: 1 Bed to/from Chair: 1 Orly lift , max assist rolling Wheelchair Training Does the Pt Use a Wheelchair?: Yes Wheelchair (FIM): 1 Wheelchair Distance: 1=up to 49 ft (5-6 ft) Wheelchair Level of Assist: 2 Type of Wheelchair: Motorized weakness and positioning still a limiting factor Treatments co Rx OT PT for max assist for safety for all . U&L extremity stretching, sh oulder flexion, abduction , hip HS and adductor gentle stretches, D1, D2 passive movement Assessment Current Status: Poor Progress dependent for all, w/c mobility requires FT hands and and or superv PT Short Term Goals Short Term Goals Time Frame: Jan 17, 2019 Transfers (B,C,W/C) (FIM): 1 Wheelchair (FIM): 4 (if he can get a power chair) Wheelchair Distance: 2000' Wheelchair Level of Assist: 4 PT Intermediate Goals Intermediate Goals PT Network Support Administrator Goals Time Frame: Jan 31, 2019 Transfers (B,C,W/C) (FIM): 1 Sit to Lying (QC): 1 Lying-Sitting on Side/Bed(QC): 1 Rollin Roll Left to Right (QC): 2 Chair/Xlt-od-Izktz Xfer(QC): 1 Car Transfer (QC): 1 Wheelchair (FIM): 5 (if he can get a power chair) Distance: 150' Wheelchair Level of Assist: 5 Wheel 50 feet with 2 turns (QC: 4 PT Plan Treatment/Plan Treatment Plan: Continue Plan of Care Treatment Plan: Bed Mobility, Concurrent Therapy, Education, Functional Activity Estella, Functional Strength, Group Therapy, Safety, Therapeutic Exercise, Transfers Treatment Duration: Jan 31, 2019 Frequency: At least 5 of 7 days/Wk (IRF) Estimated Hrs Per Day: 1.5 hours per day Patient and/or Family Agrees t: Yes Time/GCodes Time In: 800 Time Out: 900 Total Billed Treatment Time: 60 Total Billed Treatment 1,EX15m,FA45m G Codes Necessary: ANTOINE Davis SUNGLASS CLIP ATTACHER Jan 29, 2019 09:03
[2019-01-29] MEDS: aCETylcysteine 20% (MUCOMYST) 30ML SOLN VIAL INH SCH ×2 (09:24→23:47)
[2019-01-29] MEDS: POT PHOS/NA PHOS (K-PHOS NEUTRAL) PO SCH ×2 (09:34→21:06)
[2019-01-29] MEDS: FAMOTIDINE 20 MG (PEPCID) TABLET PO SCH ×2 (09:35→21:06)
[2019-01-29] MEDS: MIDODRINE 10 MG (PROAMATINE) TAB PO SCH ×3 (09:35→21:06)
[2019-01-29] MEDS: LORATADINE (CLARITIN) 10 MG TAB PO SCH (09:35)
[2019-01-29] MEDS: SENNA W/DOCUSATE (SENOKOT S) TABLET PO SCH ×2 (09:35→21:24)
--- NOTE | 2019-01-29 11:17 | Occupational Ther Daily Note ---
OT Current Status-Daily Note Subjective Pt alert, lying in bed. Pt stated that he was told that he was getting a shower today. BUILDINGS AND GROUNDS SUPERVISOR explained the difficulties and safety issues on giving pt a shower at this time, pt verbalized understanding. Pt agrees to therapy. Mental Status/Objective Patient Orientation: Person, Place, Time, Situation Therapy Code Descriptions/Definitions Functional [place] Measure: 0=Not Assessed/NA 4=Minimal Assistance 1=Total Assistance 5=Supervision or Setup 2=Maximal Assistance 6=Modified [place] 3=Moderate Assistance 7=Complete [place] Attachments: Zamarripa Catheter, IV (PICC), PEG Tube ADL-Treatment Co-treat with PT, skills of 2 clinicians are required due to poor patient mobility, strength and decreased activity tolerance. Dependent with bed mobility during sponge bath and jareth sling placement. Shampooed pt's hair and completed sponge bath in bed, dependent. Pt transferred to w/c with total assist using jareth. Assist to position in w/c. Pt performed w/c mobility using joystick with right UE. Modified R armrest on w/c to support R forearm. Pt is able to maneuver w/c forward and around corners. Requires assist to manage in/out of elevator. Pt is limited by positioning of right UE. Pt fatigues with activity and assisted back to room. Transfer w/c to bed with jareth. OT focusing on ADLs/hygiene, UE management, and safety. PT focusing on transfers, LE management, and bed mobility. Co-treat with PT for 60 min of session, 15 min of individual treatment. After therapy, pt lying in bed on L side call light in reach. All needs met in room. Therapy Code Descriptions/Definitions Functional [place] Measure: 0=Not Assessed/NA 4=Minimal Assistance 1=Total Assistance 5=Supervision or Setup 2=Maximal Assistance 6=Modified [place] 3=Moderate Assistance 7=Complete [place] Therapy Quality Codes: 6 Independent with activity with or without an assistive device 5 Patient requires set up or clean up by helper. Patient completes activity by themselves 4 Supervision or touching assist (CGA). [place] provide cues , steadying assist 3 The helper provides less than half the effort to complete the activity 2 The helper provides more than half the effort to complete the activity 1 Dependent. The helper does all the effort to complete an activity 7 Patient refused to complete or attempt activity 9 The patient did not perform the activity before the current illness or injury 88 Not attempted due to Medical conditions or safety concerns Bathing (FIM): 1 Shower/Bathe Self (QC): 1 Upper Body (FIM): 1 Upper Body Dressing (QC): 1 Lower Body Dressing (FIM): 1 (Completed in bed.) Lower Body Dressing (QC): 1 On/Off Footwear (QC): 1 Transfers (B, C, W/C) (FIM): 1 OT Short Term Goals Short Term Goals Time Frame: Jan 24, 2019 Grooming(FIM): 2 (with AE) Upper Body Dressing(FIM): 2 Transfers (B,C,W/C) (FIM): 1 Additional Short Term Goals: 3-ImproveStrength/Estella 1=Demonstrate adherence to instructed precautions during ADL tasks. 2=Patient will verbalize/demonstrate understanding of assistive devices/modifications for ADL. 3=Patient will improve strength/tolerance for activity to enable patient to perform ADL's. OT Client Care Representative Goals Client Care Representative Goals Time Frame: Feb 14, 2019 Eating (FIM): 3 Eating (QC): 3 Groomin Oral Hygiene (QC): 3 Upper Body Dressing(FIM): 3 Additional Goals: 3-ImproveStrength/Estella 1=Demonstrate adherence to instructed precautions during ADL tasks. 2=Patient will verbalize/demonstrate understanding of assistive devices/m odifications for ADL. 3=Patient will improve strength/tolerance for activity to enable patient to perform ADL's. OT Education/Plan Problem List/Assessment Assessment: Decreased Activ Tolerance, Decreased UE Strength, Dependent Transfers, Impaired Bed Mobility, Impaired Coordination, Impaired Funct Balance, Impaired I ADL's, Impaired Self-Care Skills, Restricted Funct UE ROM Discharge Recommendations Plan/Recommendations: Continue POC Treatment Plan/Plan of Care Patient would benefit from OT for education, treatment and training to promote independence in ADL's, mobility, safety and/or upper extremity function for ADL's. Plan of Care: ADL Retraining, Caregiver Training, Functional Mobility, Group Exercise/Act as Ind, UE Funct Exercise/Act, UE Neuromus Re-Ed/Coord, W/C Management Training Treatment Duration: Feb 14, 2019 Frequency: At least 5 of 7 days/Wk (IRF) Estimated Hrs Per Day: 1.5 hours per day Agreement: Yes Rehab Potential: Guarded Time/GCodes Start Time: 08:00 Stop Time: 09:15 Total Time Billed (hr/min): 75 Billed Treatment Time 1 visit-ADL 4 (60 min) FA 1 (15 min) co-treatment [id number] with PT, individual treatment [id number]. LAZARO BRUNER Jan 29, 2019 11:17
--- NOTE | 2019-01-29 13:26 | Speech Therapy Daily Note ---
Speech Daily Progress Note Subjective Date Seen by Provider: Jan 29, 2019 Time Seen by Provider: 00:30 The patient stated he was doing ok today. He also stated the nurse pulled out 2 of his port lines by accident the past evening so he didn't get as much rest as he could have. Objective Patient ate 100% of his noontime meal with assistance. Compensatory strategies are at 1--% with assistance as well. No overt s/s of aspiration noted this date. Assessment Assessment Current Status: Good Progress Treatment Plan Continue Plan of Care Communication Comprehension: 6 Expression: 6 Social Cognition Social Interaction: 6 Problem Solvin Memory: 4 Speech Short Term Goals Short Term Goals Short Term Goals 1) The patient will complete memory tasks related to his daily needs at 90% or greater with minimal cues. 2) The patient will complete problem solving tasks related to his daily needs at 90% or greater with minimal cues. 3) The patient will complete safety awareness tasks related to his daily needs at 90% or greater with minimal cues. 4) The patient will tolerate least restrictive diet without s/s of aspiration with 90% or greater. 5) The patient will demonstrate compliance of utilization of compensatory strategies as trained at 90% or greater with minimal cues. Speech Longterm Goals Longterm Goals The patient will improve his cognitive status for a safe return home. The patient will maintain adequate nutrition/hydration via safe effective swallow function and/or PEG tube. Speech-Plan Patient/Family Goals Patient/Family Goals: The patient plans on returning home as soon as he is able to. Treatment Plan Speech Therapy Treatment Plan: Continue Plan of Care The patient has made good progress with all therapies toward meeting goals and discharge. Treatment Duration: Feb 02, 2019 Frequency: 5 times per week Estimated Hrs Per Day: .5 hour per day Rehab Potential: Guarded Barriers to Learning: The patient continues to have cognitive/memory deficits, however these deficits are improving. Pt/Family Agrees to Plan: Yes Safety Risks/Education Teaching Recipient: Patient Teaching Methods: Demonstration, Discussion Response to Teaching: Verbalize Understanding, Return Demonstration Education Topics Provided: Continued safety of oral intake. Time Speech Therapy Time In: 11:45 Speech Therapy Time Out: 12:15 Total Billed Time: 30 Billed Treatment Time 1, LUIS DANIEL Judi BRANDIE KOENIG Jan 29, 2019 13:26
--- NOTE | 2019-01-29 14:01 | Physical Therapy Daily Note ---
PT Daily Note-Current Subjective Pt. in bed on back, states "Im getting stiff, moving me around is a good idea", wants his dressing on bottom changed after rolled to his side. Pt. states he is planning on going home and will have his son lift him in out bed and chair etc. This TOPOGRAPHICAL DRAFTER educates pt. that he will also need a lift at home for safety and c onsistency Pain Numeric Pain Scale: 4 Location: Right Location Body Site: Hip Pain Description: Tightness, Cramping Mental Status Patient Orientation: Normal For Age Attachments: PEG Tube, Zamarripa Catheter Transfers Therapy Code Descriptions/Definitions Functional [place] Measure: 0=Not Assessed/NA 4=Minimal Assistance 1=Total Assistance 5=Supervision or Setup 2=Maximal Assistance 6=Modified [place] 3=Moderate Assistance 7=Complete [place] Therapy Quality Codes: 6 Independent with activity with or without an assistive device 5 Patient requires set up or clean up by helper. Patient completes activity by themselves 4 Supervision or touching assist (CGA). [place] provide cues , steadying assist 3 The helper provides less than half the effort to complete the activity 2 The helper provides more than half the effort to complete the activity 1 Dependent. The helper does all the effort to complete an activity 7 Patient refused to complete or attempt activity 9 The patient did not perform the activity before the current illness or injury 88 Not attempted due to Medical conditions or safety concerns rolled to side max assist with pillow support behind and at knees Exercises Supine Ex: Ankle pumps (entle HC stretches), Rolling, Straight leg raise (passive HS stretches), Hip abd/add (passive stretches) Supine Reps: 8 (hold 6 sec ea) int ext hip rotation , shoulder flexion and elbow ext all x 12 Treatments pt. on side , communicate with nursing that pt. is awaiting dressing change. hand schmidt in place Assessment Current Status: Fair Progress total dependent PT Short Term Goals Short Term Goals Time Frame: Jan 17, 2019 Transfers (B,C,W/C) (FIM): 1 Wheelchair (FIM): 4 (if he can get a power chair) Wheelchair Distance: 2000' Wheelchair Level of Assist: 4 PT Clinical Services Consultant Goals Assisted Goals PT Clinical Services Consultant Goals Time Frame: Jan 31, 2019 Transfers (B,C,W/C) (FIM): 1 Sit to Lying (QC): 1 Lying-Sitting on Side/Bed(QC): 1 Rollin Roll Left to Right (QC): 2 Chair/Ywy-np-Ozczy Xfer(QC): 1 Car Transfer (QC): 1 Wheelchair (FIM): 5 (if he can get a power chair) Distance: 150' Wheelchair Level of Assist: 5 Wheel 50 feet with 2 turns (QC: 4 PT Plan Treatment/Plan Treatment Plan: Continue Plan of Care Treatment Plan: Bed Mobility, Concurrent Therapy, Education, Functional Activity Estella, Functional Strength, Group Therapy, Safety, Therapeutic Exerci se, Transfers Treatment Duration: Jan 31, 2019 Frequency: At least 5 of 7 days/Wk (IRF) Estimated Hrs Per Day: 1.5 hours per day Patient and/or Family Agrees t: Yes Safety Risks/Education Patient Education: Correct Positioning, Disease Process, Safety Issues Teaching Recipient: Patient Time/GCodes Time In: 1330 Time Out: 1350 Total Billed Treatment Time: 20 Total Billed Treatment 1,EX20m G Codes Necessary: ANTOINE Davis TOPOGRAPHICAL DRAFTER Jan 29, 2019 14:00
[2019-01-29] MEDS: ENOXAPARIN 40 MG/0.4 ML (LOVENOX) SYR SC SCH (15:06)
--- NOTE | 2019-01-29 15:13 | NUR ---
Noted maceration around coccyx ulcer. Some mild erosion noted to urinary meatus. Physician and Surgeon notified.
[2019-01-29 17:08] VITALS: BP 114/72
--- NOTE | 2019-01-29 19:04 | NUR ---
bedside report received from TENNILLE BONILLA, assume care of pt
[2019-01-29] MEDS: ALPRAZolam 0.5 MG (XANAX) TAB PO PRN (21:05)
[2019-01-29] MEDS: MELATONIN 3 MG TABLET PO SCH (21:05)
[2019-01-29] MEDS: QUEtiapine 25 MG (SEROquel) TAB IMMEDIATE RELEASE PO SCH (21:05)
--- NOTE | 2019-01-29 21:05 | NUR ---
fsbs 217 NovoLog 3 units given, pt requesting Xanax 0.5mg, refused Senokot
[2019-01-29 21:15] VITALS: BP 124/74
[2019-01-29] MEDS: APAP 325 MG/10.15 ML LIQ (TYLENOL) UDC PO PRN (21:23)
--- NOTE | 2019-01-29 21:23 | NUR ---
requesting tylenol 650mg liq for pain level 5/10 on numeric scale
[2019-01-29] MEDS: MONTELUKAST 10 MG (SINGULAIR) TAB PO SCH (21:24)
--- NOTE | 2019-01-29 21:30 | NUR ---
assessments & interventions completed, see assessments & interventions
[2019-01-29] MEDS: MICONAZOLE 2% POWDER (DESENEX AF) 90 GM TOP SCH (21:50)
--- NOTE | 2019-01-29 22:05 | NUR ---
rates pain level 2/10 on numeric scale, had medium soft brown stool cleaned & new sacral dressing changed
[2019-01-30] MEDS: RT-ALBUTEROL/IPRATROPIUM 3 ML (DUONEB) VIAL INH SCH ×4 (03:22→19:32)
[2019-01-30] MEDS: APAP 325 MG/10.15 ML LIQ (TYLENOL) UDC PO PRN (04:19)
--- NOTE | 2019-01-30 04:19 | NUR ---
c/o lt shoulder pain level 9/10 on numeric scale Tylenol 650mg liq given
--- NOTE | 2019-01-30 05:00 | NUR ---
resting quietly in bed, pain level 0/10 on flacc scale
[2019-01-30 05:10] VITALS: BP 98/60
[2019-01-30] MEDS: inSUlin ASPART (NovoLOG) 1 UNIT/0.01 ML (CHARGE PER UNIT) SC SCH ×4 (06:00→21:38)
[2019-01-30] MEDS: guaiFENesin SYRUP 100 MG/5 ML 10 ML (ROBITUSSIN SF) PEG SCH ×3 (06:18→21:37)
[2019-01-30 06:19] LABS: BASOPHILS % (AUTO) 0 % (0-10); EOSINOPHILS # (AUTO) 0.1 10^3/uL (0.0-0.3); EOSINOPHILS % (AUTO) 2 % (0-10); HEMATOCRIT 34 % (40-54); HEMOGLOBIN 10.7 G/DL (13.3-17.7); LYMPHOCYTES # (AUTO) 2.2 X 10^3 (1.0-4.0); LYMPHOCYTES % (AUTO) 27 % (12-44); MEAN CORPUSCULAR HEMOGLOBIN 30 PG (25-34); MEAN CORPUSCULAR HGB CONC 32 G/DL (32-36); MEAN CORPUSCULAR VOLUME 93 FL (80-99); MONOCYTES # (AUTO) 1.1 X 10^3 (0.0-1.0); MONOCYTES % (AUTO) 14 % (0-12); NEUTROPHILS # (AUTO) 4.7 X 10^3 (1.8-7.8); NEUTROPHILS % (AUTO) 58 % (42-75); PLATELET COUNT 258 10^3/uL (130-400); WHITE BLOOD COUNT 8.2 10^3/uL (4.3-11.0)
[2019-01-30] MEDS: KCL 10 MEQ TAB (MICRO K) PO SCH (06:20)
[2019-01-30] MEDS: ALPRAZolam 0.5 MG (XANAX) TAB PEG PRN (06:20)
--- NOTE | 2019-01-30 06:20 | NUR ---
xanax 0.5mg given for anxiety
[2019-01-30 06:38] LABS: ALANINE AMINOTRANSFERASE 18 U/L (0-55); ALBUMIN 3.3 GM/DL (3.2-4.5); ALKALINE PHOSPHATASE 156 U/L (40-136); BILIRUBIN,TOTAL 0.2 MG/DL (0.1-1.0); BUN/CREATININE RATIO 14; CALCIUM 9.8 MG/DL (8.5-10.1); CARBON DIOXIDE 21 MMOL/L (21-32); CHLORIDE 108 MMOL/L (98-107); CREATININE SERUM 0.65 MG/DL (0.60-1.30); GFR ESTIMATED > 60; GLUCOSE 117 MG/DL (70-105); POTASSIUM 3.7 MMOL/L (3.6-5.0); SODIUM 142 MMOL/L (135-145); TOTAL PROTEIN 7.6 GM/DL (6.4-8.2)
--- NOTE | 2019-01-30 07:20 | NUR ---
bedside report given to TENNILLE BONILLA
[2019-01-30] MEDS: MIDODRINE 10 MG (PROAMATINE) TAB PO SCH ×3 (07:54→21:37)
[2019-01-30] MEDS: LORATADINE (CLARITIN) 10 MG TAB PO SCH (07:55)
[2019-01-30] MEDS: POT PHOS/NA PHOS (K-PHOS NEUTRAL) PO SCH ×2 (07:55→21:37)
[2019-01-30] MEDS: FAMOTIDINE 20 MG (PEPCID) TABLET PO SCH ×2 (07:55→21:38)
--- NOTE | 2019-01-30 08:44 | PM&R Progress Note ---
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 He was unable to maintain his airway. He was intubated at the scene. He was assessed in the ER by Dr. Vaughan trauma surgeon found to have significant hypotension requiring aggressive IV fluids and pressor therapy but then was assessed that he was likely an spinal cord shock and multiple right rib fractures with flail chest requiring transfer to [facility] trauma surgery which resulted in multiple procedures including tracheostomy due to failing weaning protocol on ventilator, PEG tube placement, spine MRIs confirming C3-C7 spinal cord injury complete with plating of ribs 510 on the right side and right sided chest tube. He was found to have drug screen positive for marijuana and methamphetamine. Neurosurgery was consulted perform decompressive laminectomy on C3-C7 with C4-C5 autograft bone screws and rods. He was diagnosed with Haemophilus influenza while intubated and that treatment was completed. He did have rhabdomyolysis from his injuries requiring aggressive IV fluids but they all resolved. Hyperglycemia was diagnosed and he was started on insulin and elevated liver enzymes have improved since admission and hepatitis viral panel along with HIV were negative. He did receive 2 units of packed red blood cells hospitalized. Currently patient is requiring wound care consult by Dr. Craven and general surgery consultation by Dr. García because additional debridement of the sacral decubitus ulcer will be required. He will remain with the c-collar in place until seen Dr. Nesbitt on 01/30/19. Hemoglobin today is 10.1. Dr. Arcos's been consulted for pulmonary issues which she is having increased secretions today in addition urology will be consulted for Zamarripa catheter maintenance for neurogenic bladder. I did speak with Dr. Arcos who will panculture the patient and change breathing treatments to clear secretions. Patient remains total care with quadriplegia. Subjective/Events-last exam Hgb 10.7, rest of labs okay. Dr. García will evaluate debridement of the wound again. Dietary will be consulted for increased protein in order to help heal the decubitus ulcer. Disposition pending. Remains fully dependent Conferred with RN Reviewed meds and labs Reviewed therapy notes Dispo this week Review of Systems General: Fatigue Objective Exam Vital Signs Vital Signs Date Time Temp Pulse Resp B/P (MAP) Pulse Ox O2 Delivery O2 Flow Rate FiO2 01/30/19 19:35 97 Room Air 01/30/19 17:06 98.4 61 16 132/72 (92) 01/27/19 21:30 2.00 Capillary Refill : Less Than 3 SecondsLess Than 3 Seconds General Appearance: No Apparent Distress, WD/WN, Chronically ill HEENT: PERRL/EOMI, Pharynx Normal Neck: Non Tender, Supple, Other (cervical collar in place) Respiratory: Chest Non Tender, Lungs Clear, No Accessory Muscle Use, No Respiratory Distress Cardiovascular: Regular Rate, Rhythm, No Edema Gastrointestinal: Normal Bowel Sounds, No Organomegaly, No Pulsatile Mass, Non Tender, Soft, Other (PEG in place) Back: Normal Inspection, No CVA Tenderness, No Vertebral Tenderness Extremity: Normal Inspection Neurologic/Psychiatric: Alert, Oriented x3, Normal Mood/Affect, membership secretary II-XII Norm as Tested, Motor Weakness (chest and below neurological deficit) Skin: Normal Color, Warm/Dry, Other (decubitus ulcer coccyx, eschar in wound no surrounding erythema) Lymphatic: No Adenopathy Results/Procedures Lab Laboratory Tests 01/30/19 06:10 Patient resulted labs reviewed. FIM Transfers Therapy Code Descriptions/Definitions Functional [place] Measure: 0=Not Assessed/NA 4=Minimal Assistance 1=Total Assistance 5=Supervision or Setup 2=Maximal Assistance 6=Modified [place] 3=Moderate Assistance 7=Complete [place] Therapy Quality Codes: 6 Independent with activity with or without an assistive device 5 Patient requires set up or clean up by helper. Patient completes activity by themselves 4 Supervision or touching assist (CGA). [place] provide cues , steadying assist 3 The helper provides less than half the effort to complete the activity 2 The helper provides more than half the effort to complete the activity 1 Dependent. The helper does all the effort to complete an activity 7 Patient refused to complete or attempt activity 9 The patient did not perform the activity before the current illness or injury 88 Not attempted due to Medical conditions or safety concerns Transfers (B, C, W/C) (FIM): 1 Scootin Rollin Roll Left to Right (QC): 1 Supine to/from Sit: 1 Sit to/from Stand: 1 Sit to Lying (QC): 1 Sit to Stand (QC): 1 Chair/Mag-zz-Tvwuq Xfer(QC): 1 Bed to/from Chair: 1 Car Transfer (QC): 1 Gait Training Does the Patient Walk?: No and Walking Goal NOT indicated Wheelchair Training Does the Pt Use a Wheelchair?: Yes Wheelchair (FIM): 1 Wheelchair Distance: 1=up to 49 ft (5-6 ft) Distance: 1999' Wheelchair Level of Assist: 2 Wheel 50 ft with 2 turns (QC): 4 Wheel 150 ft (QC): 3 Type of Wheelchair: Motorized Mental Status/Objective Comprehension: 6 Expression: 6 Social Interaction: 6 Problem Solvin Memory: 4 ADL-Treatment Feedin Eating (QC): 1 Groomin Oral Hygiene (QC): 1 Bathin Shower/Bathe Self (QC): 1 Upper Extremity Dressin Upper Body Dressing (QC): 1 Lower Extremity Dressin (Completed in bed.) Lower Body Dressing (QC): 1 On/Off Footwear (QC): 1 Toiletin Toileting Hygiene (QC): 1 Toilet/Commode Transfer: 1 Toilet Transfer (QC): 1 Assessment/Plan Assessment and Plan Assess & Plan/Chief Complaint Assessment: 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 García and Dr. Craven and it appears to need additional debridement in the future until healed Wound VAC after debridement if needed Maintained on Lovenox Consult urology is appreciated but no DC cath until coccyx ulcer is healed Rehabilitation to focus on transfers and lessen burden on caretakers FPC placement now that he now has Medicaid Removes neck brace while sleeping to aid in alleviation of discomfort causing behaviors and will await NSG recs for brace removal at his request Seroquel at night Celexa in the morning Advanced diet Supplement potassium Stop Diflucan since completed treatment DC PEG in next 6 weeks DC trach and doing well NHP once approved and now he has Medicaid so that will help dispo (1) Spinal cord injury at C1-C4 level (2) Anemia (3) Anxiety Status: Chronic (4) Chronic pain Status: Chronic (5) Neurogenic bladder (6) HLD (hyperlipidemia) Status: Chronic (7) Tracheostomy dependent (8) DVT prophylaxis Status: Acute (9) Post-traumatic quadriplegia (10) Closed right scapular fracture (11) Right rib fracture (12) Right pulmonary contusion (13) Decubitus ulcer of coccygeal region, stage 4 (14) Shock due to spinal cord injury (15) Diabetes mellitus (16) Elevated blood pressure reading Status: Acute (17) Hospital discharge follow-up (18) Septic prepatellar bursitis of left knee (19) septic bursa (20) Paresthesias Status: Acute (21) Uncontrolled diabetes mellitus Status: Chronic (22) Illicit drug use Status: Acute (23) Cellulitis Status: Acute (24) Hyperglycemia Status: Acute (25) Sepsis Status: Acute (26) Hypertension Status: Chronic (27) Type 2 diabetes mellitus with hyperglycemia Status: Chronic (28) PEG (percutaneous endoscopic gastrostomy) status MARGUERITE GAN DO Jan 30, 2019 08:44
[2019-01-30] MEDS: SENNA W/DOCUSATE (SENOKOT S) TABLET PO SCH ×2 (08:59→21:39)
[2019-01-30] MEDS: MICONAZOLE 2% POWDER (DESENEX AF) 90 GM TOP SCH ×2 (08:59→21:39)
[2019-01-30] MEDS: aCETylcysteine 20% (MUCOMYST) 30ML SOLN VIAL INH SCH ×2 (09:25→19:33)
--- NOTE | 2019-01-30 11:03 | Physical Therapy Daily Note ---
PT Daily Note-Current Subjective Pt laying Supine in bed upon arrival. Pt agrees to PT/OT co-treat. Mental Status Patient Orientation: Person, Place, Situation Attachments: PEG Tube, Zamarripa Catheter, Other-See Comments (Soft cervical collar) Transfers Therapy Code Descriptions/Definitions Functional [place] Measure: 0=Not Assessed/NA 4=Minimal Assistance 1=Total Assistance 5=Supervision or Setup 2=Maximal Assistance 6=Modified [place] 3=Moderate Assistance 7=Complete [place] Therapy Quality Codes: 6 Independent with activity with or without an assistive device 5 Patient requires set up or clean up by helper. Patient completes activity by themselves 4 Supervision or touching assist (CGA). [place] provide cues , steadying assist 3 The helper provides less than half the effort to complete the activity 2 The helper provides more than half the effort to complete the activity 1 Dependent. The helper does all the effort to complete an activity 7 Patient refused to complete or attempt activity 9 The patient did not perform the activity before the current illness or injury 88 Not attempted due to Medical conditions or safety concerns Scootin Rollin Roll Left to Right (QC): 1 Supine to/from Sit: 1 Sit to/from Stand: 1 Sit to Lying (QC): 1 Sit to Stand (QC): 1 Chair/Arc-rv-Navwx Xfer(QC): 1 Bed to/from Chair: 1 Treatments OT/PT co-treat due to level of skilled need of pt. OT assessed ADL needs while PT focused on mobility needs. Assisted pt. in bed with bathing, donning of fresh gown and socks, mobility, brushing teeth and hair, and incontinent of BM. Completed gentle PROM to bilateral UE and LE while in bed. Transferred to wheelchair via jareth lift. OT continues to work with pt. Assessment Current Status: Fair Progress Pt continues to try to assist with both UE & EL movement during EX. Pt is having more success with UE than LE though. PT Short Term Goals Short Term Goals Time Frame: Jan 17, 2019 Transfers (B,C,W/C) (FIM): 1 Wheelchair (FIM): 4 (if he can get a power chair) Wheelchair Distance: 2000' Wheelchair Level of Assist: 4 PT Halfway Goals Halfway Goals PT Plant Tender Goals Time Frame: Jan 31, 2019 Transfers (B,C,W/C) (FIM): 1 Sit to Lying (QC): 1 Lying-Sitting on Side/Bed(QC): 1 Rollin Roll Left to Right (QC): 2 Chair/Hvh-ex-Rlosx Xfer(QC): 1 Car Transfer (QC): 1 Wheelchair (FIM): 5 (if he can get a power chair) Distance: 150' Wheelchair Level of Assist: 5 Wheel 50 feet with 2 turns (QC: 4 PT Plan Problem List Problem List: Activity Tolerance, Functional Strength, Safety, Balance, Gait, Transfer, Bed Mobility, ROM Treatment/Plan Treatment Plan: Continue Plan of Care Treatment Plan: Bed Mobility, Concurrent Therapy, Education, Functional Activity Estella, Functional Strength, Group Therapy, Safety, Therapeutic Exercise, Transfers Treatment Duration: Jan 31, 2019 Frequency: At least 5 of 7 days/Wk (IRF) Estimated Hrs Per Day: 1.5 hours per day Patient and/or Family Agrees t: Yes Safety Risks/Education Patient Education: Correct Positioning Teaching Recipient: Patient Teaching Methods: Discussion Response to Teaching: Verbalize Understanding Time/GCodes Time In: 1000 Time Out: 1100 Total Billed Treatment Time: 60 Total Billed Treatment 1, EX (15m), FA x3 (45m) Co-treat w/OT 60m ([id number]) G Codes Necessary: LESLIE Hoyos PTA Jan 30, 2019 11:03
[2019-01-30] MEDS: BACLOFEN 10 MG (LIORESAL) TAB PO PRN (12:29)
--- NOTE | 2019-01-30 13:03 | Speech Therapy Daily Note ---
Speech Daily Progress Note Subjective Date Seen by Provider: Jan 30, 2019 Time Seen by Provider: 00:30 The patient was alert and pleasant during his therapy today. Objective The patient consumed 100% of his meal with assistance. He did have one cough/clear noted with the intake. He was assisted with food/drink alternation with 100% accuracy. Assessment Assessment Current Status: Good Progress Treatment Plan Continue Plan of Care Communication Comprehension: 6 Expression: 6 Social Cognition Social Interaction: 6 Problem Solvin Memory: 4 Speech Short Term Goals Short Term Goals Short Term Goals 1) The patient will complete memory tasks related to his daily needs at 90% or greater with minimal cues. 2) The patient will complete problem solving tasks related to his daily needs at 90% or greater with minimal cues. 3) The patient will complete safety awareness tasks related to his daily needs at 90% or greater with minimal cues. 4) The patient will tolerate least restrictive diet without s/s of aspiration with 90% or greater. 5) The patient will demonstrate compliance of utilization of compensatory strategies as trained at 90% or greater with minimal cues. Speech Packing Clerk Goals Packing Clerk Goals The patient will improve his cognitive status for a safe return home. The patient will maintain adequate nutrition/hydration via safe effective swallow function and/or PEG tube. Speech-Plan Patient/Family Goals Patient/Family Goals: The patient plans on returning home with his family post rehab. Treatment Plan Speech Therapy Treatment Plan: Continue Plan of Care The patient is making good progress as a result of skilled ST services. Treatment Duration: Feb 02, 2019 Frequency: 5 times per week Estimated Hrs Per Day: .5 hour per day Rehab Potential: Guarded Barriers to Learning: Patient has mild cognitive deficits. Pt/Family Agrees to Plan: Yes Safety Risks/Education Teaching Recipient: Patient Teaching Methods: Discussion Response to Teaching: Verbalize Understanding Education Topics Provided: Continued safety with oral intake. Time Speech Therapy Time In: 11:30 Speech Therapy Time Out: 12:00 Total Billed Time: 30 Billed Treatment Time 1LUIS DANIEL [facility] [facility] Jan 30, 2019 13:03
--- NOTE | 2019-01-30 13:44 | Occupational Ther Daily Note ---
OT Current Status-Daily Note Subjective No pain reported. Appearance Pt. in bed. Agrees to work with OT. Mental Status/Objective Patient Orientation: Person, Place Therapy Code Descriptions/Definitions Functional [place] Measure: 0=Not Assessed/NA 4=Minimal Assistance 1=Total Assistance 5=Supervision or Setup 2=Maximal Assistance 6=Modified [place] 3=Moderate Assistance 7=Complete [place] ADL-Treatment Therapy Code Descriptions/Definitions Functional [place] Measure: 0=Not Assessed/NA 4=Minimal Assistance 1=Total Assistance 5=Supervision or Setup 2=Maximal Assistance 6=Modified [place] 3=Moderate Assistance 7=Complete [place] Therapy Quality Codes: 6 Independent with activity with or without an assistive device 5 Patient requires set up or clean up by helper. Patient completes activity by themselves 4 Supervision or touching assist (CGA). [place] provide cues , steadying assist 3 The helper provides less than half the effort to complete the activity 2 The helper provides more than half the effort to complete the activity 1 Dependent. The helper does all the effort to complete an activity 7 Patient refused to complete or attempt activity 9 The patient did not perform the activity before the current illness or injury 88 Not attempted due to Medical conditions or safety concerns Grooming (FIM): 1 Oral Hygiene (QC): 1 Bathing (FIM): 1 Shower/Bathe Self (QC): 1 Lower Body Dressing (FIM): 1 Lower Body Dressing (QC): 1 On/Off Footwear (QC): 1 Toileting (FIM): 1 Toileting Hygiene (QC): 1 Transfers (B, C, W/C) (FIM): 1 OT/PT co-treat due to level of skilled need of pt. OT assessed ADL needs while PT focused on mobility needs. Assisted pt. in bed with bathing, donning of fresh gown and socks, mobility, brushing teeth and hair, and incontinent of BM. Completed gentle PROM to bilateral UE and LE while in bed. Transferred to [facility] via jareth lift. Pt. able to work on driving wheelchair with toggle system and positioning of UE with and without splint on armrest. Pt. is able to drive chair if arm is in perfect position. Pt. requires constant assistance to place here. After driving chair, pt. states that he is tired. Transferred back to bed via jareth lift. All needs met. Education OT Patient Education: Correct positioning, Exercise program, Modified ADL techniques, Progress toward Goal/Update tx plan, Purpose of tx/functional activities, Reviewed precautions, Rehab process, Transfer techniques, Use of adapted equipment Teaching Recipient: Patient Teaching Methods: Demonstration, Discussion Response to Teaching: Verbalize Understanding, Reinforcement Needed OT Short Term Goals Short Term Goals Time Frame: Jan 24, 2019 Grooming(FIM): 2 (with AE) Upper Body Dressing(FIM): 2 Transfers (B,C,W/C) (FIM): 1 Additional Short Term Goals: 3-ImproveStrength/Estella 1=Demonstrate adherence to instructed precautions during ADL tasks. 2=Patient will verbalize/demonstrate understanding of assistive devices/modifications for ADL. 3=Patient will improve strength/tolerance for activity to enable patient to perform ADL's. OT Combination Machine Tender Goals Combination Machine Tender Goals Time Frame: Feb 14, 2019 Eating (FIM): 3 Eating (QC): 3 Groomin Oral Hygiene (QC): 3 Upper Body Dressing(FIM): 3 Additional Goals: 3-ImproveStrength/Estella 1=Demonstrate adherence to instructed precautions during ADL tasks. 2=Patient will verbalize/demonstrate understanding of assistive devices/modifications for ADL. 3=Patient will improve strength/tolerance for activity to enable patient to pe rform ADL's. OT Education/Plan Problem List/Assessment Assessment: Decreased Activ Tolerance, Decreased UE Strength, Dependent Transfers, Impaired Bed Mobility, Impaired Coordination, Impaired Funct Balance, Impaired I ADL's, Impaired Self-Care Skills, Restricted Funct UE ROM Discharge Recommendations Plan/Recommendations: Continue POC Therapy D/C Recommendations: 24 hr Supervision Treatment Plan/Plan of Care Treatment,Training & Education: Yes Patient would benefit from OT for education, treatment and training to promote independence in ADL's, mobility, safety and/or upper extremity function for ADL's. Plan of Care: ADL Retraining, Caregiver Training, Functional Mobility, Group Exercise/Act as Ind, UE Funct Exercise/Act, UE Neuromus Re-Ed/Coord, W/C Management Training Treatment Duration: Feb 14, 2019 Frequency: At least 5 of 7 days/Wk (IRF) Estimated Hrs Per Day: 1.5 hours per day Agreement: Yes Rehab Potential: Fair Time/GCodes Start Time: 10:00 Stop Time: 11:15 Total Time Billed (hr/min): 75 Billed Treatment Time 1, ADL x 60minutes, FA x 15minutes SHEYLA PETERSON OT Jan 30, 2019 13:44
--- NOTE | 2019-01-30 15:31 | Physical Therapy Daily Note ---
PT Daily Note-Current Subjective Pt laying Supine in bed upon arrival. Pt agrees to PT. Pt asked for UE EX/stretching. Mental Status Patient Orientation: Person, Place, Situation Attachments: PEG Tube, Zamarripa Catheter, Other-See Comments (Soft cervical collar) Transfers Therapy Code Descriptions/Definitions Functional [place] Measure: 0=Not Assessed/NA 4=Minimal Assistance 1=Total Assistance 5=Supervision or Setup 2=Maximal Assistance 6=Modified [place] 3=Moderate Assistance 7=Complete [place] Therapy Quality Codes: 6 Independent with activity with or without an assistive device 5 Patient requires set up or clean up by helper. Patient completes activity by themselves 4 Supervision or touching assist (CGA). [place] provide cues , steadying assist 3 The helper provides less than half the effort to complete the activity 2 The helper provides more than half the effort to complete the activity 1 Dependent. The helper does all the effort to complete an activity 7 Patient refused to complete or attempt activity 9 The patient did not perform the activity before the current illness or injury 88 Not attempted due to Medical conditions or safety concerns Treatments SENIOR HYDROGEOLOGIST assists pt with stretching of UE to comfort. Pt resting in bed at end of tx, all needs are met & call button next to hand. Assessment Current Status: Fair Progress Pt is very rigid & tight during tx. PT Short Term Goals Short Term Goals Time Frame: Jan 17, 2019 Transfers (B,C,W/C) (FIM): 1 Wheelchair (FIM): 4 (if he can get a power chair) Wheelchair Distance: 2000' Wheelchair Level of Assist: 4 PT Credit Negotiator Goals Fpc Goals PT Fpc Goals Time Frame: Jan 31, 2019 Transfers (B,C,W/C) (FIM): 1 Sit to Lying (QC): 1 Lying-Sitting on Side/Bed(QC): 1 Rollin Roll Left to Right (QC): 2 Chair/Xsg-je-Ceryd Xfer(QC): 1 Car Transfer (QC): 1 Wheelchair (FIM): 5 (if he can get a power chair) Distance: 150' Wheelchair Level of Assist: 5 Wheel 50 feet with 2 turns (QC: 4 PT Plan Problem List Problem List: Activity Tolerance, Functional Strength, Safety, Balance, Gait, Transfer, Bed Mobility, ROM Treatment/Plan Treatment Plan: Continue Plan of Care Treatment Plan: Bed Mobility, Concurrent Therapy, Education, Functional Activity Estella, Functional Strength, Group Therapy, Safety, Therapeutic Exercise, Transfers Treatment Duration: Jan 31, 2019 Frequency: At least 5 of 7 days/Wk (IRF) Estimated Hrs Per Day: 1.5 hours per day Patient and/or Family Agrees t: Yes Safety Risks/Education Patient Education: Correct Positioning Teaching Recipient: Patient Teaching Methods: Discussion Time/GCodes Time In: 1330 Time Out: 1345 Total Billed Treatment Time: 15 Total Billed Treatment 1, EX (15m) G Codes Necessary: LESLIE Hoyos PTA Jan 30, 2019 15:31
[2019-01-30] MEDS: ENOXAPARIN 40 MG/0.4 ML (LOVENOX) SYR SC SCH (15:50)
--- NOTE | 2019-01-30 16:03 | NUR ---
Received concurrent approval from [facility]. If further approval is desired, additional clinical information is to be submitted by 02/06/19, to [facility].
--- NOTE | 2019-01-30 16:44 | Progress Note - Surgery ---
Subjective Time Seen by a Provider: 16:31 Subjective/Events-last exam Pt seen and examined, he has no feeling in sacral area so denies pain. He can feel some pressure around the anus. Nurse is concerned about more tissue in sacral decubitus ulcer. Review of Systems General: No Chills Pulmonary: No Dyspnea, No Cough Cardiovascular: No: Chest Pain Gastrointestinal: No: Nausea, Vomiting Objective Exam Vital Signs Date Time Temp Pulse Resp B/P (MAP) Pulse Ox O2 Delivery O2 Flow Rate FiO2 01/30/19 14:08 95 Room Air 01/30/19 09:00 Room Air 01/30/19 05:10 96.6 75 18 98/60 (73) 98 Room Air 01/30/19 03:22 94 Room Air 01/29/19 21:30 Room Air 01/29/19 21:15 64 18 124/74 (91) 97 Room Air 01/29/19 17:08 97.3 70 18 114/72 (86) 98 Room Air I & O 01/30/19 07:00 Intake Total 2600 ml Output Total 2300 ml Balance 300 ml Capillary Refill : Less Than 3 SecondsLess Than 3 Seconds General Appearance: No Apparent Distress, Chronically ill HEENT: PERRL/EOMI, Pharynx Normal Neck: Other (cervical collar in place) Respiratory: Chest Non Tender, Lungs Clear, No Accessory Muscle Use, No Respiratory Distress Cardiovascular: Regular Rate, Rhythm, No Edema Gastrointestinal: soft, distended (mildly distended), other (small erosion 6 o'clock on meatus of penis) Neurologic/Psychiatric: Alert, Oriented x3, Normal Mood/Affect, Motor Weakness (chest and below neurological deficit) Skin: Other (decubitus ulcer coccyx, necrotic skin around edges, also some maceration on edges, base of ulcer on sacrum there is also some necrotic tissue) Results Lab Laboratory Tests 01/29/19 17:07: Glucometer 146H 01/29/19 20:57: Glucometer 217H 01/30/19 06:05: Glucometer 113H 01/30/19 06:10: White Blood Count 8.2, Red Blood Count 3.60L, Hemoglobin 10.7L, Hematocrit 34L, Mean Corpuscular Volume 93, Mean Corpuscular Hemoglobin 30, Mean Corpuscular Hemoglobin Concent 32, Red Cell Distribution Width 14.0, Platelet Count 258, Mean Platelet Volume 8.0, Neutrophils (%) (Auto) 58, Lymphocytes (%) (Auto) 27, Monocytes (%) (Auto) 14H, Eosinophils (%) (Auto) 2, Basophils (%) (Auto) 0, Neutrophils # (Auto) 4.7, Lymphocytes # (Auto) 2.2, Monocytes # (Auto) 1.1H, Eosinophils # (Auto) 0.1, Basophils # (Auto) 0.0, Sodium Level 142, Potassium Level 3.7, Chloride Level 108H, Carbon Dioxide Level 21, Anion Gap 13, Blood Urea Nitrogen 9, Creatinine 0.65, Estimat Glomerular Filtration Rate > 60, BUN/Creatinine Ratio 14, Glucose Level 117H, Calcium Level 9.8, Corrected Calcium 10.4H, Total Bilirubin 0.2, Aspartate Amino Transf (AST/SGOT) 12, Ala nine Aminotransferase (ALT/SGPT) 18, Alkaline Phosphatase 156H, Total Protein 7.6, Albumin 3.3 01/30/19 11:01: Glucometer 209H 01/30/19 15:15: Glucometer 162H Microbiology 01/10/19 Blood Culture - Final, Complete No growth 01/10/19 Gram Stain - Final, Complete 01/10/19 Sputum Culture - Final, Complete Usual upper respiratory aaron YEAST Assessment/Plan Assessment/Plan Assessment/Plan S/P 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 Decubitus ulcer coccyx Pt will need debridement of necrotic tissue, plan to do at bedside tomorrow. Clinical Quality Measures DVT/VTE Risk/Contraindication: Risk Factor Score Per Nursin RFS Level Per Nursing on Admit: 4+=Very High EDMUND ALAMO DO Jan 30, 2019 16:44
[2019-01-30 17:06] VITALS: BP 132/72
[2019-01-30] MEDS: QUEtiapine 25 MG (SEROquel) TAB IMMEDIATE RELEASE PO SCH (21:37)
[2019-01-30] MEDS: MONTELUKAST 10 MG (SINGULAIR) TAB PO SCH (21:37)
[2019-01-30] MEDS: MELATONIN 3 MG TABLET PO SCH (21:37)
[2019-01-30] MEDS: ALPRAZolam 0.5 MG (XANAX) TAB PO PRN (21:38)
[2019-01-31] MEDS: BACLOFEN 10 MG (LIORESAL) TAB PO PRN ×2 (00:09→13:47)
[2019-01-31] MEDS: RT-ALBUTEROL/IPRATROPIUM 3 ML (DUONEB) VIAL INH SCH ×4 (02:43→19:21)
[2019-01-31] MEDS: APAP 325 MG/10.15 ML LIQ (TYLENOL) UDC PO PRN ×3 (04:22→22:52)
[2019-01-31] MEDS: guaiFENesin SYRUP 100 MG/5 ML 10 ML (ROBITUSSIN SF) PEG SCH ×3 (05:47→22:44)
[2019-01-31] MEDS: ALPRAZolam 0.5 MG (XANAX) TAB PEG PRN (05:48)
[2019-01-31] MEDS: KCL 10 MEQ TAB (MICRO K) PO SCH (05:48)
[2019-01-31 05:50] VITALS: BP 110/71
[2019-01-31] MEDS: inSUlin ASPART (NovoLOG) 1 UNIT/0.01 ML (CHARGE PER UNIT) SC SCH ×4 (06:07→21:00)
--- NOTE | 2019-01-31 08:40 | PM&R Progress Note ---
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 He was unable to maintain his airway. He was intubated at the scene. He was assessed in the ER by Dr. Vaughan trauma surgeon found to have significant hypotension requiring aggressive IV fluids and pressor therapy but then was assessed that he was likely an spinal cord shock and multiple right rib fractures with flail chest requiring transfer to [facility] trauma surgery which resulted in multiple procedures including tracheostomy due to failing weaning protocol on ventilator, PEG tube placement, spine MRIs confirming C3-C7 spinal cord injury complete with plating of ribs 510 on the right side and right sided chest tube. He was found to have drug screen positive for marijuana and methamphetamine. Neurosurgery was consulted perform decompressive laminectomy on C3-C7 with C4-C5 autograft bone screws and rods. He was diagnosed with Haemophilus influenza while intubated and that treatment was completed. He did have rhabdomyolysis from his injuries requiring aggressive IV fluids but they all resolved. Hyperglycemia was diagnosed and he was started on insulin and elevated liver enzymes have improved since admission and hepatitis viral panel along with HIV were negative. He did receive 2 units of packed red blood cells hospitalized. Currently patient is requiring wound care consult by Dr. Craven and general surgery consultation by Dr. García because additional debridement of the sacral decubitus ulcer will be required. He will remain with the c-collar in place until seen Dr. Nesbitt on 01/30/19. Hemoglobin today is 10.1. Dr. Arcos's been consulted for pulmonary issues which she is having increased secretions today in addition urology will be consulted for Goodman catheter maintenance for neurogenic bladder. I did speak with Dr. Arcos who will panculture the patient and change breathing treatments to clear secretions. Patient remains total care with quadriplegia. Subjective/Events-last exam Debridement today by Dr. García. Dietary consult to help heal decubitus ulcer with protein so will initiate Ensure in the meantime. Bowels are moving. Baclofen has been really helping his Trapezius muscle spasms. Disposition pending. Remains fully dependent Conferred with RN Reviewed meds and labs Reviewed therapy notes Dispo this week? After rounds today he began running a low-grade fever and had a behavior and nursing hatchery supervisor had him sign AGAINST MEDICAL ADVICE paper since he did not want to put a soft collar back on. RN called me about 2 hours later reporting temperature of 101.4 noted cloudy urine in the Goodman catheter bag so I ordered a sepsis bundle set started IV fluids checking lactic acid sending urine culture and blood culture check and chest x-ray starting on gentle IV fluid and broad-spectrum antibiotics meropenem and vancomycin and alternating Tylenol with ibuprofen for the fever We will change Goodman catheter also Review of Systems General: Fatigue Neurological: Confusion Focused Exam Lactate Level 01/31/19 20:30: Lactic Acid Level Laboratory Tests Test 01/31/19 20:30 Objective Exam Vital Signs Vital Signs Date Time Temp Pulse Resp B/P (MAP) Pulse Ox O2 Delivery O2 Flow Rate FiO2 01/31/19 20:13 101.6 92 134/83 (100) 97 Room Air 01/31/19 17:20 18 01/27/19 21:30 2.00 Capillary Refill : Less Than 3 SecondsLess Than 3 Seconds General Appearance: No Apparent Distress, WD/WN, Chronically ill HEENT: PERRL/EOMI, Pharynx Normal Neck: Non Tender, Supple, Other (cervical collar in place) Respiratory: Chest Non Tender, Lungs Clear, No Accessory Muscle Use, No Respiratory Distress Cardiovascular: Regular Rate, Rhythm, No Edema Gastrointestinal: Normal Bowel Sounds, No Organomegaly, No Pulsatile Mass, Non Tender, Soft, Other (PEG in place) Back: Normal Inspection, No CVA Tenderness, No Vertebral Tenderness Extremity: Normal Inspection Neurologic/Psychiatric: Alert, Oriented x3, Normal Mood/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 FIM Transfers Therapy Code Descriptions/Definitions Functional [place] Measure: 0=Not Assessed/NA 4=Minimal Assistance 1=Total Assistance 5=Supervision or Setup 2=Maximal Assistance 6=Modified [place] 3=Moderate Assistance 7=Complete [place] Therapy Quality Codes: 6 Independent with activity with or without an assistive device 5 Patient requires set up or clean up by helper. Patient completes activity by themselves 4 Supervision or touching assist (CGA). Cross provide cues , steadying assist 3 The helper provides less than half the effort to complete the activity 2 The helper provides more than half the effort to complete the activity 1 Dependent. The helper does all the effort to complete an activity 7 Patient refused to complete or attempt activity 9 The patient did not perform the activity before the current illness or injury 88 Not attempted due to Medical conditions or safety concerns Transfers (B, C, W/C) (FIM): 1 Scootin Rollin Roll Left to Right (QC): 1 Supine to/from Sit: 1 Sit to/from Stand: 1 Sit to Lying (QC): 1 Sit to Stand (QC): 1 Chair/Gjp-ct-Kgjyz Xfer(QC): 1 Bed to/from Chair: 1 Car Transfer (QC): 1 Gait Training Does the Patient Walk?: No and Walking Goal NOT indicated Wheelchair Training Does the Pt Use a Wheelchair?: Yes Wheelchair (FIM): 1 Wheelchair Distance: 1=up to 49 ft (5-6 ft) Distance: 1999' Wheelchair Level of Assist: 2 Wheel 50 ft with 2 turns (QC): 4 Wheel 150 ft (QC): 3 Type of Wheelchair: Motorized Mental Status/Objective Comprehension: 6 Expression: 6 Social Interaction: 6 Problem Solvin Memory: 4 ADL-Treatment Feedin Eating (QC): 1 Groomin Oral Hygiene (QC): 1 Bathin Shower/Bathe Self (QC): 1 Upper Extremity Dressin Upper Body Dressing (QC): 1 Lower Extremity Dressin Lower Body Dressing (QC): 1 On/Off Footwear (QC): 1 Toiletin Toileting Hygiene (QC): 1 Toilet/Commode Transfer: 1 Toilet Transfer (QC): 1 Assessment/Plan Assessment and Plan Assess & Plan/Chief Complaint Assessment: 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 Nesbitt at [facility] 12/07/18 Rib plating on the right Closed right scapular fracture Diabetes mellitus [id number] requiring insulin now improved PEG tube status and likely will DC in the next several weeks Trach dependent s/p removal 8/9/19 Anemia Hypertension DVT prophylaxis with Lovenox Neurogenic bladder requiring Goodman catheter and urology recommends maintained to help heal decubitus ulcer in the meantime Decubitus ulcer s/p debridement but appears to need additional debridement prn if worsens OJ Psychosis resolved with Seroquel Depression placed on Celexa Ileus-resolved New onset fever 101.4 with abnormal urine in goodman bag placed sepsis order set in place with empiric broad spectrum abx initiated in meantime Plan: Debridement per Dr. García and Dr. Craven and it appears to need additional debridement in the future until healed Wound VAC after debridement if needed Maintained on Lovenox Consult urology is appreciated but no DC cath until coccyx ulcer is healed Rehabilitation to focus on transfers and lessen burden on caretakers assisted placement now that he now has Medicaid Removes neck brace while sleeping to aid in alleviation of discomfort causing behaviors and will await NSG recs for brace removal at his request Seroquel at night Celexa in the morning Advanced diet Supplement potassium Stop Diflucan since completed treatment DC PEG in next 6 weeks DC trach and doing well NHP once approved and now he has Medicaid so that will help dispo IV abx Sepsis bundle order set (1) Spinal cord injury at C1-C4 level (2) Anemia (3) Anxiety Status: Chronic (4) Chronic pain Status: Chronic (5) Neurogenic bladder (6) HLD (hyperlipidemia) Status: Chronic (7) Tracheostomy dependent (8) DVT prophylaxis Status: Acute (9) Post-traumatic quadriplegia (10) Closed right scapular fracture (11) Right rib fracture (12) Right pulmonary contusion (13) Decubitus ulcer of coccygeal region, stage 4 (14) Shock due to spinal cord injury (15) Diabetes mellitus (16) Elevated blood pressure reading Status: Acute (17) Hospital discharge follow-up (18) Septic prepatellar bursitis of left knee (19) septic bursa (20) Paresthesias Status: Acute (21) Uncontrolled diabetes mellitus Status: Chronic (22) Illicit drug use Status: Acute (23) Cellulitis Status: Acute (24) Hyperglycemia Status: Acute (25) Sepsis Status: Acute (26) Hypertension Status: Chronic (27) Type 2 diabetes mellitus with hyperglycemia Status: Chronic (28) PEG (percutaneous endoscopic gastrostomy) status MARGUERITE GAN DO Jan 31, 2019 08:40
[2019-01-31] MEDS: aCETylcysteine 20% (MUCOMYST) 30ML SOLN VIAL INH SCH (09:24)
[2019-01-31] MEDS: SENNA W/DOCUSATE (SENOKOT S) TABLET PO SCH ×2 (09:36→21:12)
[2019-01-31] MEDS: MICONAZOLE 2% POWDER (DESENEX AF) 90 GM TOP SCH ×2 (09:36→21:21)
[2019-01-31] MEDS: MIDODRINE 10 MG (PROAMATINE) TAB PO SCH ×3 (09:40→21:06)
[2019-01-31] MEDS: FAMOTIDINE 20 MG (PEPCID) TABLET PO SCH ×2 (09:40→21:00)
[2019-01-31] MEDS: POT PHOS/NA PHOS (K-PHOS NEUTRAL) PO SCH ×2 (09:40→21:04)
[2019-01-31] MEDS: LORATADINE (CLARITIN) 10 MG TAB PO SCH (09:40)
--- NOTE | 2019-01-31 11:10 | Progress Note - Hospitalist ---
[facility] 01/31/19 1110: Progress Note Mr Fink continues to feel anxiety about his situation. The addition of Baclofen has improved his current situation and he is happy with how much it helps him. He states he still gets occasional throbbing in the b/l LE. Today he expressed interest in transfer to LTC and he is now Medicaid approved. Plan is for surgical debridement of the decubitus ulcer with Dr. García today at the bedside. 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 status post decompressive laminectomy by Rand Nesbitt at [facility] 12/07/18 Rib plating on the right Closed right scapular fracture Diabetes mellitus [id number] requiring insulin now improved PEG tube status and likely will DC in the next several weeks Trach dependent s/p removal 01/26/19 Anemia Hypertension DVT prophylaxis with Lovenox Neurogenic bladder requiring Zamarripa catheter and urology recommends maintained to help heal decubitus ulcer in the meantime Decubitus ulcer s/p debridement but appears to need additional debridement prn if worsens OJ Psychosis resolved with Seroquel Depression placed on Celexa Ileus-resolved Plan: Debridement per Dr. García and Dr. Craven and it appears to need additional debridement in the future until healed Wound VAC after debridement if needed Maintained on Lovenox Consult urology is appreciated but no DC cath until coccyx ulcer is healed Rehabilitation to focus on transfers and lessen burden on caretakers [facility] placement now that he now has Medicaid Removes neck brace while sleeping to aid in alleviation of discomfort causing behaviors and will await NS recs for brace removal at his request Seroquel at night Celexa in the morning Advanced diet Supplement potassium Stop Diflucan since completed treatment DC PEG in next 6 weeks DC trach and doing well NHP once approved and now he has Medicaid so that will help dispo PAOLA GAN DO 01/31/192109: Supervisory-Addendum Brief Verification & Attestation Participated in pt care: history, MDM, physical Personally performed: exam, history, MDM, supervision of care Care discussed with: Medical Student Procedures: n/a Results interpretation: Verified all documentation Verification and Attestation of Medical Student E/M Service A medical student performed and documented this service in my presence. I reviewed and verified all information documented by the medical student and made modifications to such information, when appropriate. I personally performed the physical exam and medical decision making. Paola Gan, Jan 31, 2019,21:07 [facility] Jan 31, 2019 11:10 PAOLA GAN DO Jan 31, 2019 21:10
--- NOTE | 2019-01-31 12:51 | Speech Therapy Daily Note ---
Speech Daily Progress Note Subjective Date Seen by Provider: Jan 31, 2019 Time Seen by Provider: 00:30 The patient states since he has insurance now he has been accepted to a local SNF which he is excited about. Objective Patient consumed 100% of his noon meal with assistance, compensatory strategies in place at 100%. Assessment Assessment Current Status: Good Progress Treatment Plan Continue Plan of Care Communication Comprehension: 6 Expression: 6 Social Cognition Social Interaction: 6 Problem Solvin Memory: 4 Speech Short Term Goals Short Term Goals Short Term Goals 1) The patient will complete memory tasks related to his daily needs at 90% or greater with minimal cues. 2) The patient will complete problem solving tasks related to his daily needs at 90% or greater with minimal cues. 3) The patient will complete safety awareness tasks related to his daily needs at 90% or greater with minimal cues. 4) The patient will tolerate least restrictive diet without s/s of aspiration with 90% or greater. 5) The patient will demonstrate compliance of utilization of compensatory strategies as trained at 90% or greater with minimal cues. Speech Group Home Goals Milk Tanker Driver Goals The patient will improve his cognitive status for a safe return home. The patient will maintain adequate nutrition/hydration via safe effective swallow function and/or PEG tube. Speech-Plan Patient/Family Goals Patient/Family Goals: The patient is planning on going to a local SNF upon discharge from ARU. Treatment Plan Speech Therapy Treatment Plan: Continue Plan of Care The patient continues to progress with oral intake and safety awareness. Treatment Duration: Feb 02, 2019 Frequency: 5 times per week Estimated Hrs Per Day: .5 hour per day Rehab Potential: Fair Barriers to Learning: Patient's medical status, mild cognitive deficit Pt/Family Agrees to Plan: Yes Safety Risks/Education Teaching Recipient: Patient Teaching Methods: Demonstration, Discussion Response to Teaching: Verbalize Understanding, Return Demonstration, Reinforcement Needed Education Topics Provided: Continued safety with oral intake with assistance Time Speech Therapy Time In: 12:15 Speech Therapy Time Out: 12:45 Total Billed Time: 30 Billed Treatment Time 1LUIS DANIEL BRANDIE Moseley Jan 31, 2019 12:51
--- NOTE | 2019-01-31 13:20 | Occupational Ther Daily Note ---
OT Current Status-Daily Note Subjective No pain reported. Appearance Pt. in bed. Agrees to treatment. Mental Status/Objective Patient Orientation: Person, Place Therapy Code Descriptions/Definitions Functional [place] Measure: 0=Not Assessed/NA 4=Minimal Assistance 1=Total Assistance 5=Supervision or Setup 2=Maximal Assistance 6=Modified [place] 3=Moderate Assistance 7=Complete [place] ADL-Treatment Therapy Code Descriptions/Definitions Functional [place] Measure: 0=Not Assessed/NA 4=Minimal Assistance 1=Total Assistance 5=Supervision or Setup 2=Maximal Assistance 6=Modified [place] 3=Moderate Assistance 7=Complete [place] Therapy Quality Codes: 6 Independent with activity with or without an assistive device 5 Patient requires set up or clean up by helper. Patient completes activity by themselves 4 Supervision or touching assist (CGA). [place] provide cues , steadying assist 3 The helper provides less than half the effort to complete the activity 2 The helper provides more than half the effort to complete the activity 1 Dependent. The helper does all the effort to complete an activity 7 Patient refused to complete or attempt activity 9 The patient did not perform the activity before the current illness or injury 88 Not attempted due to Medical conditions or safety concerns Eating (FIM): 2 Eating (QC): 2 Grooming (FIM): 1 Toileting (FIM): 1 Toileting Hygiene (QC): 1 Transfers (B, C, W/C) (FIM): 1 Pt. in bed. Agrees to work with OT/PT for co-treatment due to need of skilled therapist x 2. PT initiates LE PROM and mobility while OT facilitates feeding, wheelchair management with right hand, and UE PROM. OT/PT donned brief before transfer to wheelchair. Rolled in bed with dependent assist x 2. Transferred via jareth lift to wheelchair. Pt. had increased difficulty this date with driving wheelchair. Pt. verbalizes that this is not so much his goal anymore, because he found out he wont have one at home due to cost. OT completed bilateral UE PROM while alternating LE PROM with PT. OT fit universal cuff to pt's right hand, and supported right elbow while pt. able to utilize elbow flexion to bring spoon to mouth. Pt. able to take multiple bites with cuff and spoon. Pt. does fatigue easily. Pt. requests for wheelchair to be reclined for pressure relief. All needs met back in room. Transferred to bed with jareth lift. Positioned on right side with dependent x 2. All needs met. Education OT Patient Education: Correct positioning, Modified ADL techniques, Progress toward Goal/Update tx plan, Purpose of tx/functional activities, Reviewed precautions, Rehab process, Transfer techniques, Use of adapted equipment, W/C management Teaching Recipient: Patient Teaching Methods: Demonstration, Discussion Response to Teaching: Verbalize Understanding, Reinforcement Needed OT Short Term Goals Short Term Goals Time Frame: Jan 24, 2019 Grooming(FIM): 2 (with AE) Upper Body Dressing(FIM): 2 Transfers (B,C,W/C) (FIM): 1 Additional Short Term Goals: 3-ImproveStrength/Estella 1=Demonstrate adherence to instructed precautions during ADL tasks. 2=Patient will verbalize/demonstrate understanding of assistive devices/modifications for ADL. 3=Patient will improve strength/tolerance for activity to enable patient to perform ADL's. OT Group Home Goals Group Home Goals Time Frame: Feb 14, 2019 Eating (FIM): 3 Eating (QC): 3 Groomin Oral Hygiene (QC): 3 Upper Body Dressing(FIM): 3 Additional Goals: 3-ImproveStrength/Estella 1=Demonstrate adherence to instructed precautions during ADL tasks. 2=Patient will verbalize/demonstrate understanding of assistive devices/modifications for ADL. 3=Patient will improve strength/tolerance for activity to enable patient to perf orm ADL's. OT Education/Plan Problem List/Assessment Assessment: Decreased Activ Tolerance, Decreased UE Strength, Dependent Transfers, Impaired Bed Mobility, Impaired Coordination, Impaired Funct Balance, Impaired I ADL's, Impaired Self-Care Skills, Restricted Funct UE ROM Discharge Recommendations Plan/Recommendations: Continue POC Therapy D/C Recommendations: 24 hr Supervision Treatment Plan/Plan of Care Treatment,Training & Education: Yes Patient would benefit from OT for education, treatment and training to promote independence in ADL's, mobility, safety and/or upper extremity function for ADL's. Plan of Care: ADL Retraining, Caregiver Training, Functional Mobility, Group Exercise/Act as Ind, UE Funct Exercise/Act, UE Neuromus Re-Ed/Coord, W/C Management Training Treatment Duration: Feb 14, 2019 Frequency: At least 5 of 7 days/Wk (IRF) Estimated Hrs Per Day: 1.5 hours per day Agreement: Yes Rehab Potential: Guarded Time/GCodes Start Time: 10:00 Stop Time: 11:15 Total Time Billed (hr/min): 75 Billed Treatment Time 1, ADL x 30minutes, FA x 45minutes SHEYLA PETERSON OT Jan 31, 2019 13:20
[2019-01-31] MEDS: ENOXAPARIN 40 MG/0.4 ML (LOVENOX) SYR SC SCH (13:42)
--- NOTE | 2019-01-31 14:08 | Physical Therapy Daily Note ---
PT Daily Note-Current Subjective Pt L sidelying upon arrival, positioned on pillows. Pain Location Body Site: Neck Pain Description: Ache, Dull Mental Status Patient Orientation: Person, Place, Situation Attachments: PEG Tube, Zamarripa Catheter, Other-See Comments (Soft Cervical Collar) Transfers Therapy Code Descriptions/Definitions Functional [place] Measure: 0=Not Assessed/NA 4=Minimal Assistance 1=Total Assistance 5=Supervision or Setup 2=Maximal Assistance 6=Modified [place] 3=Moderate Assistance 7=Complete [place] Therapy Quality Codes: 6 Independent with activity with or without an assistive device 5 Patient requires set up or clean up by helper. Patient completes activity by themselves 4 Supervision or touching assist (CGA). [place] provide cues , steadying assist 3 The helper provides less than half the effort to complete the activity 2 The helper provides more than half the effort to complete the activity 1 Dependent. The helper does all the effort to complete an activity 7 Patient refused to complete or attempt activity 9 The patient did not perform the activity before the current illness or injury 88 Not attempted due to Medical conditions or safety concerns Scootin Rollin Roll Left to Right (QC): 1 Supine to/from Sit: 1 Sit to Lying (QC): 1 Chair/Too-hk-Gpjfq Xfer(QC): 1 Bed to/from Chair: 1 Gait Training Does the Patient Walk?: No and Walking Goal NOT indicated Wheelchair Training Does the Pt Use a Wheelchair?: Yes Wheelchair Distance: 0=898-84 ft Distance: 50' Wheelchair Level of Assist: 4 Wheel 50 ft with 2 turns (QC): 4 Type of Wheelchair: Motorized Treatments Pt. in bed. Agrees to work with OT/PT for co-treatment due to need of skilled therapist x 2. PT initiates LE PROM and mobility while OT facilitates feeding, wheelchair management with right hand, and UE PROM. OT/PT donned brief before transfer to wheelchair. Rolled in bed with dependent assist x 2. Transferred via jareth lift to wheelchair. Pt. had increased difficulty this date with driving wheelchair. Pt. verbalizes that this is not so much his goal anymore, because he found out he wont have one at home due to cost. OT completed bilateral UE PROM while alternating LE PROM with PT. OT fit universal cuff to pt's right hand, and supported right elbow while pt. able to utilize elbow flexion to bring spoon to mouth. Pt. able to take multiple bites with cuff and spoon. Pt. does fatigue easily. Pt. requests for wheelchair to be reclined for pressure relief. All needs met back in room. Transferred to bed with jareth lift. Positioned on right side with dependent x 2. All needs met. Assessment Current Status: Fair Progress Pt continues to make gains in UE movement but not in LE. PT Short Term Goals Short Term Goals Time Frame: Jan 17, 2019 Transfers (B,C,W/C) (FIM): 1 Wheelchair (FIM): 4 (if he can get a power chair) Wheelchair Distance: 2000' Wheelchair Level of Assist: 4 PT Senior Living Goals Senior Living Goals PT Meat Cooler Goals Time Frame: Jan 31, 2019 Transfers (B,C,W/C) (FIM): 1 Sit to Lying (QC): 1 Lying-Sitting on Side/Bed(QC): 1 Rollin Roll Left to Right (QC): 2 Chair/Ocj-lt-Uqnzk Xfer(QC): 1 Car Transfer (QC): 1 Wheelchair (FIM): 5 (if he can get a power chair) Distance: 150' Wheelchair Level of Assist: 5 Wheel 50 feet with 2 turns (QC: 4 PT Plan Problem List Problem List: Activity Tolerance, Functional Strength, Safety, Balance, Gait, Transfer, Bed Mobility, ROM Treatment/Plan Treatment Plan: Continue Plan of Care Treatment Plan: Bed Mobility, Concurrent Therapy, Education, Functional Activity [place], Functional Strength, Group Therapy, Safety, Therapeutic Exercise, Transfers Treatment Duration: Jan 31, 2019 Frequency: At least 5 of 7 days/Wk (IRF) Estimated Hrs Per Day: 1.5 hours per day Patient and/or Family Agrees t: Yes Safety Risks/Education Patient Education: Correct Positioning, W/C Management, Safety Issues Teaching Recipient: Patient Teaching Methods: Discussion Response to Teaching: Verbalize Understanding Time/GCodes Time In: 1000 Time Out: 1115 Total Billed Treatment Time: 75 Total Billed Treatment 1, EX (15m) & FA x4 (60m) G Codes Necessary: LESLIE Hoyos BULK CLERK Jan 31, 2019 14:08
--- NOTE | 2019-01-31 15:20 | Pulmonary Progress Note ---
Subjective Time Seen by a Provider: 15:16 Subjective/Events-last exam PT is doing well without tracheostomy tube. Sepsis Event Evaluation Height, Weight, BMI Height: 5'3.00" Weight: 150lbs. 9.6oz. 68.201481kx; 26.1 BMI Method:Stated Exam Exam Vital Signs Date Time Temp Pulse Resp B/P (MAP) Pulse Ox O2 Delivery O2 Flow Rate FiO2 01/31/19 09:24 95 Room Air 01/31/19 08:00 Room Air 01/31/19 05:50 96.4 68 18 110/71 (84) 96 Room Air 01/31/19 02:42 97 Room Air 01/30/19 21:45 Room Air 01/30/19 19:35 97 Room Air 01/30/19 17:06 98.4 61 16 132/72 (92) 98 Room Air I & O 01/31/19 07:00 Intake Total 2530 ml Output Total 2600 ml Balance -70 ml Height & Weight Height: 5'3.00" Weight: 150lbs. 9.6oz. 68.337287lc; 26.1 BMI Method:Stated General Appearance: No Apparent Distress, WD/WN, Chronically ill HEENT: PERRL/EOMI, Normal ENT Inspection, Pharynx Normal Neck: Supple Respiratory: Chest Non Tender, Lungs Clear, Normal Breath Sounds, No Accessory Muscle Use, No Respiratory Distress Cardiovascular: Regular Rate, Rhythm, No Edema, Normal Peripheral Pulses Capillary Refill: Less Than 3 Seconds Gastrointestinal: soft, distended (mildly distended) Extremity: Normal Capillary Refill, Normal Inspection Neurologic/Psychiatric: Alert, Oriented x3, Normal Mood/Affect, cytogenetic technologist II-XII Norm as Tested, Motor Weakness (chest and below neurological deficit) Skin: Normal Color, Other (decubitus ulcer coccyx, eschar in wound no surrounding erythema) Lymphatic: No Adenopathy Results Lab Laboratory Tests 01/30/19 06:10 Assessment/Plan Assessment/Plan 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 Nesbitt at [facility] Tracheostomy -SVNS with DuoNeb and Mucomyst -s/p tracheostomy tube Decubitus ulcer stage 4 -wound care Rib plating on the right Closed right scapular fracture Diabetes mellitus gug-ro-lbgmmrb requiring insulin PEG tube status Anemia -Monitor Hypertension Neurogenic bladder with Zamarripa catheter Decubitus ulcer in need of debridement -Wound vac -Surgery following Illicit drug use ALONDRA HUSSEIN DO Jan 31, 2019 15:20
--- NOTE | 2019-01-31 15:21 | Progress Note-Post Operative ---
Post-Operative Progess Note Surgeon (s)/Software Designer (s) Surgeon EDMUND ALAMO DO Software Designer: none Pre-Operative Diagnosis Necrotic tissue in Sacral Decub Post-Operative Diagnosis same Procedure & Operative Findings Date of Procedure 01/31/19 Procedure Performed/Findings Excision of necrotic tissue Anesthesia Type none Estimated Blood Loss Estimated blood loss (mL): scant Specimens/Packing Specimens Removed necrotic tissue EDMUND ALAMO DO Jan 31, 2019 15:21
--- NOTE | 2019-01-31 16:10 | NUR ---
Team Conference Discussed team conference with patient. Discharge planning/disposition continues. Heather Berrios has reconsidered admission to their SNF; however, no decision has been made at this time. [facility] has requested additional information regarding the patient's coccyx wound. The patient continues to inquire about placement at [facility], stating there is a bed available for him; however, the facility has previously denied admission. The patient also voices concern regarding ability to obtain an electric wheelchair as he states he cannot pay the required $500. In addition, the patient states he thinks his has enough money to pay rent through April, and then he is not sure what will happen. The social sciences instructor for the inpatient rehab unit has been working very closely with the patient and his family during his stay on the rehab unit regarding finances, medical equipment and discharge planning. She is currently out of the office but will return on 02/05/19. Informed patient that the team would like to reevaluate at the next team meeting on 02/07/19, and that the social sciences instructor will be updated on the above conversation once she returns. The patient verbalized understanding and is in agreement. Continue plan of care.
[2019-01-31 17:20] VITALS: BP 133/77
[2019-01-31] MEDS: NYSTATIN ORAL SUSP 5 ML UDC PO SCH (18:19)
--- NOTE | 2019-01-31 19:00 | NUR ---
Notified Dr. Cordero at this time that patient spiked 100.3 temp tylenol given and also that patient is currently refusing cervical collar and has signed an against medical advice form for the refusal of collar as witnessed by this RN and CHAD Nicholas. No new orders at this time. Will continue to monitor.
--- NOTE | 2019-01-31 19:08 | NUR ---
bedside report received from KATHRYN BONILLA, assume care of pt
--- NOTE | 2019-01-31 19:40 | NUR ---
went into room states something better get down he is chilling now advised would assess him, get set of vital signs & let physician know
--- NOTE | 2019-01-31 19:50 | NUR ---
c/o nausea, Zofran 4mg iv given
--- NOTE | 2019-01-31 19:50 | NUR ---
assessment completed, see assessments & interventions, urine cloudy & light kayden color
--- NOTE | 2019-01-31 20:04 | NUR ---
notified of urine, V/S & pt chilling
--- NOTE | 2019-01-31 20:05 | NUR ---
orders received for labs, cultures & meds
[2019-01-31 20:13] VITALS: BP 134/83
--- NOTE | 2019-01-31 20:13 | NUR ---
v/s 101.6-92-97%-134/83
[2019-01-31] MEDS ORDERED: VANCOMYCIN INJECTION 0.1 MG in NS (IVPB) 250 ML IV SCH (20:15)
[2019-01-31] MEDS ORDERED: VANCOMYCIN 1 GM/NS 250 ML IVPB IV NR ×2 (20:30)
--- NOTE | 2019-01-31 20:30 | Diagnostic Imaging Report ---
INDICATION: Fever COMPARISON: 01/28/2019 FINDINGS: Single frontal view of the chest demonstrates normal heart size and pulmonary vascularity. The lungs are well aerated and clear. No large pleural effusion or pneumothorax is seen. The visualized osseous structures show no acute abnormalities. Postsurgical changes of previous ORIF of multiple right ribs is noted. Left upper extremity PICC line is seen with tip in the right atrium. IMPRESSION: 1. No acute cardiopulmonary process. Dictated by: Dictated on workstation # [id number]
[2019-01-31 20:54] LABS: BASOPHILS % (AUTO) 0 % (0-10); EOSINOPHILS % (AUTO) 0 % (0-10); HEMATOCRIT 33 % (40-54); HEMOGLOBIN 10.9 G/DL (13.3-17.7); LYMPHOCYTES # (AUTO) 0.9 X 10^3 (1.0-4.0); LYMPHOCYTES % (AUTO) 6 % (12-44); MEAN CORPUSCULAR HEMOGLOBIN 30 PG (25-34); MEAN CORPUSCULAR HGB CONC 33 G/DL (32-36); MEAN CORPUSCULAR VOLUME 91 FL (80-99); MONOCYTES # (AUTO) 0.6 X 10^3 (0.0-1.0); MONOCYTES % (AUTO) 4 % (0-12); NEUTROPHILS # (AUTO) 13.5 X 10^3 (1.8-7.8); NEUTROPHILS % (AUTO) 90 % (42-75); PLATELET COUNT 270 10^3/uL (130-400); RED CELL DISTRIBUTION WIDTH 13.7 % (10.0-14.5); WHITE BLOOD COUNT 15.1 10^3/uL (4.3-11.0)
[2019-01-31] MEDS: MEROPENEM 500 MG in WATER (STERILE) FOR INJECTION 10 ML IV SCH (20:58)
[2019-01-31] MEDS: ALPRAZolam 0.5 MG (XANAX) TAB PO PRN (20:59)
[2019-01-31] MEDS: MELATONIN 3 MG TABLET PO SCH (21:00)
[2019-01-31] MEDS: MONTELUKAST 10 MG (SINGULAIR) TAB PO SCH (21:04)
[2019-01-31] MEDS: IBUPROFEN TABLET 200 MG TAB PO PRN (21:04)
[2019-01-31] MEDS: QUEtiapine 25 MG (SEROquel) TAB IMMEDIATE RELEASE PO SCH (21:06)
[2019-01-31 21:07] LABS: ALANINE AMINOTRANSFERASE 20 U/L (0-55); ALBUMIN 3.4 GM/DL (3.2-4.5); ALKALINE PHOSPHATASE 164 U/L (40-136); BILIRUBIN,TOTAL 0.3 MG/DL (0.1-1.0); BUN/CREATININE RATIO 16; CALCIUM 9.4 MG/DL (8.5-10.1); CARBON DIOXIDE 18 MMOL/L (21-32); CHLORIDE 101 MMOL/L (98-107); CREATININE SERUM 0.64 MG/DL (0.60-1.30); GFR ESTIMATED > 60; GLUCOSE 130 MG/DL (70-105); POTASSIUM 4.2 MMOL/L (3.6-5.0); SODIUM 133 MMOL/L (135-145); TOTAL PROTEIN 7.7 GM/DL (6.4-8.2)
--- NOTE | 2019-01-31 21:08 | NUR ---
antibiotics started now that labs drawn & u/a sent
[2019-01-31 21:17] LABS: BAND NEUTROPHILS 15 %; LYMPHOCYTES % (MANUAL) 4 %; NEUTROPHILS % (MANUAL) 75 %
[2019-01-31 21:18] LABS: EOSINOPHILS % (MANUAL) 1 %; MONOCYTES % (MANUAL) 6 %; RBC MORPH NORMAL
[2019-01-31] MEDS: NS IV 1000 ML 1,000 ML IV SCH ×2 (21:21→22:44)
--- NOTE | 2019-01-31 21:30 | NUR ---
lactic acid 08/[address] GAN notified Addendum: 01/31/19 at 2343 by HUGO BARAJAS RN temp 102.4 reported to
--- NOTE | 2019-01-31 21:45 | NUR ---
orders received for fluid bolus 30ml/kg or 2058ml then IVF to 100ml/hr
--- NOTE | 2019-01-31 22:52 | NUR ---
temp 103.3 tylenol 650mg liq given
--- NOTE | 2019-01-31 23:10 | NUR ---
lactic acid 2.78 notified & temp 103.3
[2019-01-31 23:50] VITALS: BP 145/80
--- NOTE | 2019-01-31 23:55 | NUR ---
v/s 101.2-105-18-95%-145/80
[2019-02-01] MEDS: NYSTATIN ORAL SUSP 5 ML UDC PO SCH ×4 (00:05→17:14)
[2019-02-01] MEDS: NS IV 1000 ML 1,000 ML IV SCH ×2 (00:05→01:25)
[2019-02-01] MEDS: aCETylcysteine 20% (MUCOMYST) 30ML SOLN VIAL INH SCH ×2 (00:49→23:27)
--- NOTE | 2019-02-01 00:49 | OPERATIVE REPORT ---
DATE OF SERVICE: PREOPERATIVE DIAGNOSIS: Necrotic tissue of sacral decubitus. POSTOPERATIVE DIAGNOSIS: Necrotic tissue of sacral decubitus. PROCEDURE: Debridement of necrotic tissue. SURGEON: Maciel García DO FOUNDER: None. ANESTHESIA: None. BLOOD LOSS: Minimal. SPECIMEN: Necrotic tissue. FLUIDS: None. INDICATION FOR PROCEDURE: The patient is a 53-year-old male who unfortunately had a traumatic incident where he had a spinal cord injury at another hospital, outside institution. He had a sacral decubitus ulcer. It continues to have necrotic tissue and he needs occasional debridement. FINDINGS: The patient had necrotic tissue sharply debrided with a #15 blade. PROCEDURE NOTE: After informed consent was obtained, the patient in his bed on the rehab floor. We positioned him on his right side and then started cutting out the necrotic tissue with a #15 blade cutting out basically necrotic tissue from the edges as well as deep in the wound. Cutting until we got a little bit of bleeding. At this point, then irrigated with saline and then placed an iodoform packing and then dressing to cover this. Tomorrow, we will start on Dakin solution to see if we can do some chemical debridement; trying to avoid more sharp debridement. The debridement deep in the wound was basically on the sacrum; about 2.5 cm deep. The patient tolerated the procedure without any pain or difficulty. Sponge and needle count correct at the end of the case. Job ID: [id number] DocumentID: [id number] Dictated Date: 01/31/2019 16:16:01 Hydroelectric Production Manager Date: 02/01/2019 00:47:19 Dictated By: MACIEL GARCÍA DO MTDD
[2019-02-01] MEDS: RT-ALBUTEROL/IPRATROPIUM 3 ML (DUONEB) VIAL INH SCH ×4 (01:03→23:28)
[2019-02-01] MEDS: MEROPENEM 500 MG in WATER (STERILE) FOR INJECTION 10 ML IV SCH ×4 (02:28→20:15)
[2019-02-01] MEDS: VANCOMYCIN 750 MG/NS 250 ML IVPB IV SCH ×6 (04:44→20:20)
[2019-02-01] MEDS: IBUPROFEN TABLET 200 MG TAB PO PRN ×3 (04:45→18:52)
--- NOTE | 2019-02-01 04:45 | NUR ---
temp 98.7 Motrin 400mg po given for pain in shoulders 8/10 on numeric scale,Lioresal 5mg also given
[2019-02-01] MEDS: BACLOFEN 10 MG (LIORESAL) TAB PO PRN ×2 (04:49→17:23)
[2019-02-01] MEDS: inSUlin ASPART (NovoLOG) 1 UNIT/0.01 ML (CHARGE PER UNIT) SC SCH ×4 (06:00→20:59)
[2019-02-01 06:10] LABS: BASOPHILS % (AUTO) 0 % (0-10); EOSINOPHILS % (AUTO) 0 % (0-10); HEMATOCRIT 28 % (40-54); HEMOGLOBIN 9.2 G/DL (13.3-17.7); LYMPHOCYTES # (AUTO) 2.5 X 10^3 (1.0-4.0); LYMPHOCYTES % (AUTO) 10 % (12-44); MEAN CORPUSCULAR HEMOGLOBIN 30 PG (25-34); MEAN CORPUSCULAR HGB CONC 33 G/DL (32-36); MEAN CORPUSCULAR VOLUME 92 FL (80-99); MEAN PLATELET VOLUME 7.8 FL (7.4-10.4); MONOCYTES # (AUTO) 2.7 X 10^3 (0.0-1.0); MONOCYTES % (AUTO) 11 % (0-12); NEUTROPHILS # (AUTO) 19.7 X 10^3 (1.8-7.8); NEUTROPHILS % (AUTO) 79 % (42-75); PLATELET COUNT 249 10^3/uL (130-400); RED CELL DISTRIBUTION WIDTH 13.7 % (10.0-14.5)
[2019-02-01 06:32] VITALS: BP 101/70
[2019-02-01 06:35] LABS: ALANINE AMINOTRANSFERASE 18 U/L (0-55); ALBUMIN 2.9 GM/DL (3.2-4.5); ALKALINE PHOSPHATASE 138 U/L (40-136); BILIRUBIN,TOTAL 0.5 MG/DL (0.1-1.0); BUN/CREATININE RATIO 17; CALCIUM 8.3 MG/DL (8.5-10.1); CARBON DIOXIDE 18 MMOL/L (21-32); CHLORIDE 103 MMOL/L (98-107); CREATININE SERUM 0.63 MG/DL (0.60-1.30); GFR ESTIMATED > 60; GLUCOSE 122 MG/DL (70-105); MAGNESIUM 1.4 MG/DL (1.6-2.4); POTASSIUM 3.9 MMOL/L (3.6-5.0); SODIUM 132 MMOL/L (135-145); TOTAL PROTEIN 6.3 GM/DL (6.4-8.2)
[2019-02-01] MEDS: guaiFENesin SYRUP 100 MG/5 ML 10 ML (ROBITUSSIN SF) PEG SCH ×3 (06:43→21:02)
[2019-02-01] MEDS: KCL 10 MEQ TAB (MICRO K) PO SCH (06:44)
[2019-02-01] MEDS: ALPRAZolam 0.5 MG (XANAX) TAB PEG PRN ×2 (06:49→13:58)
--- NOTE | 2019-02-01 06:49 | NUR ---
requesting Xanax, given Xanax 0.5mg po, lactic acid 1.76
--- NOTE | 2019-02-01 07:15 | NUR ---
bedside report given to CONRADO BONILLA
--- NOTE | 2019-02-01 08:21 | PM&R Progress Note ---
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 He was unable to maintain his airway. He was intubated at the scene. He was assessed in the ER by Dr. Vaughan trauma surgeon found to have significant hypotension requiring aggressive IV fluids and pressor therapy but then was assessed that he was likely an spinal cord shock and multiple right rib fractures with flail chest requiring transfer to [facility] trauma surgery which resulted in multiple procedures including tracheostomy due to failing weaning protocol on ventilator, PEG tube placement, spine MRIs confirming C3-C7 spinal cord injury complete with plating of ribs 510 on the right side and right sided chest tube. He was found to have drug screen positive for marijuana and methamphetamine. Neurosurgery was consulted perform decompressive laminectomy on C3-C7 with C4-C5 autograft bone screws and rods. He was diagnosed with Haemophilus influenza while intubated and that treatment was completed. He did have rhabdomyolysis from his injuries requiring aggressive IV fluids but they all resolved. Hyperglycemia was diagnosed and he was started on insulin and elevated liver enzymes have improved since admission and hepatitis viral panel along with HIV were negative. He did receive 2 units of packed red blood cells hospitalized. Currently patient is requiring wound care consult by Dr. Craven and general surgery consultation by Dr. García because additional debridement of the sacral decubitus ulcer will be required. He will remain with the c-collar in place until seen Dr. Nesbitt on 01/30/19. Hemoglobin today is 10.1. Dr. Arcos's been consulted for pulmonary issues which she is having increased secretions today in addition urology will be consulted for Goodman catheter maintenance for neurogenic bladder. I did speak with Dr. Arcos who will panculture the patient and change breathing treatments to clear secretions. Patient remains total care with quadriplegia. Subjective/Events-last exam Had a septic episode yesterday Unsure if it was related to skin from debridement at the bedside from Dr. García or urinary since the Goodman catheter has been maintained and it appeared to have some cloudiness in the urine Lactic acid was 3 white count to 15 and required 30 cc/kg of normal saline fluid bolus and maintain on 100 cc after that and placed on Empiric broad spectrum antibiotics with Maropenem and Vancomycin Dr. Arcos was updated His white count is now 25,000 Urine culture pending Chest x-ray was reviewed nothing acute BMP elevated at 518 Review of Systems General: Fatigue Neurological: Weakness, Numbness, Incoordination Focused Exam Lactate Level 01/31/19 20:30: Lactic Acid Level 3.03*H 01/31/19 22:40: Lactic Acid Level 2.78*H 02/01/19 06:02: Lactic Acid Level 1.76 Lactic Acid Level Objective Exam Vital Signs Vital Signs Date Time Temp Pulse Resp B/P (MAP) Pulse Ox O2 Delivery O2 Flow Rate FiO2 02/01/19 18:53 100.8 02/01/19 17:54 97 18 109/68 (82) 96 Room Air 01/27/19 21:30 2.00 Capillary Refill : Less Than 3 SecondsLess Than 3 Seconds General Appearance: No Apparent Distress, WD/WN, Chronically ill, Other (sleepy) HEENT: PERRL/EOMI, Pharynx Normal Neck: Non Tender, Supple, Other (cervical collar in place) Respiratory: Chest Non Tender, Lungs Clear, No Accessory Muscle Use, No Respiratory Distress Cardiovascular: Regular Rate, Rhythm, No Edema Gastrointestinal: Normal Bowel Sounds, No Organomegaly, No Pulsatile Mass, Non Tender, Soft, Other (PEG in place) Back: Normal Inspection, No CVA Tenderness, No Vertebral Tenderness Extremity: Normal Inspection Neurologic/Psychiatric: Alert, Oriented x3, Normal Mood/Affect, teletypesetter monitor II-XII Norm as Tested, Motor Weakness (chest and below neurological deficit) Skin: Normal Color, Warm/Dry, Other (decubitus ulcer coccyx, eschar in wound no surrounding erythema) Lymphatic: No Adenopathy Results/Procedures Lab Laboratory Tests 02/01/19 06:02 Patient resulted labs reviewed. FIM Transfers Therapy Code Descriptions/Definitions Functional [place] Measure: 0=Not Assessed/NA 4=Minimal Assistance 1=Total Assistance 5=Supervision or Setup 2=Maximal Assistance 6=Modified [place] 3=Moderate Assistance 7=Complete [place] Therapy Quality Codes: 6 Independent with activity with or without an assistive device 5 Patient requires set up or clean up by helper. Patient completes activity by themselves 4 Supervision or touching assist (CGA). [place] provide cues , steadying assist 3 The helper provides less than half the effort to complete the activity 2 The helper provides more than half the effort to complete the activity 1 Dependent. The helper does all the effort to complete an activity 7 Patient refused to complete or attempt activity 9 The patient did not perform the activity before the current illness or injury 88 Not attempted due to Medical conditions or safety concerns Transfers (B, C, W/C) (FIM): 1 Scootin Rollin Roll Left to Right (QC): 1 Supine to/from Sit: 1 Sit to/from Stand: 1 Sit to Lying (QC): 1 Sit to Stand (QC): 1 Chair/Nns-gh-Nwccw Xfer(QC): 1 Bed to/from Chair: 1 Car Transfer (QC): 1 Gait Training Does the Patient Walk?: No and Walking Goal NOT indicated Wheelchair Training Does the Pt Use a Wheelchair?: Yes Wheelchair (FIM): 1 Wheelchair Distance: 8=934-88 ft Distance: 50' Wheelchair Level of Assist: 4 Wheel 50 ft with 2 turns (QC): 4 Wheel 150 ft (QC): 3 Type of Wheelchair: Motorized Mental Status/Objective Comprehension: 6 Expression: 6 Social Interaction: 6 Problem Solvin Memory: 4 ADL-Treatment Feedin Eating (QC): 2 Groomin Oral Hygiene (QC): 1 Bathin Shower/Bathe Self (QC): 1 Upper Extremity Dressin Upper Body Dressing (QC): 1 Lower Extremity Dressin Lower Body Dressing (QC): 1 On/Off Footwear (QC): 1 Toiletin Toileting Hygiene (QC): 1 Toilet/Commode Transfer: 1 Toilet Transfer (QC): 1 Assessment/Plan Assessment and Plan Assess & Plan/Chief Complaint Assessment: 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 García and Dr. Craven and it appears to need additional debridement in the future until healed Wound VAC after debridement if needed Maintained on Lovenox Consult urology is appreciated but no DC cath until coccyx ulcer is healed Rehabilitation to focus on transfers and lessen burden on caretakers FDC placement now that he now has Medicaid Removes neck brace while sleeping to aid in alleviation of discomfort causing behaviors and will await NSG recs for brace removal at his request Seroquel at night Celexa in the morning Advanced diet Supplement potassium Stop Diflucan since completed treatment DC PEG in next 6 weeks DC trach and doing well NHP once approved and now he has Medicaid so that will help dispo IV abx Sepsis bundle order set Abx broad spectrum (1) Sepsis Status: Acute Qualifiers: Sepsis type: Escherichia coli Sepsis acute organ dysfunction status: without acute organ dysfunction Qualified Codes: A41.51 - Sepsis due to Escherichia coli [e. coli] (2) Spinal cord injury at C1-C4 level (3) Anemia (4) Anxiety Status: Chronic (5) Chronic pain Status: Chronic (6) Neurogenic bladder (7) HLD (hyperlipidemia) Status: Chronic (8) Tracheostomy dependent (9) DVT prophylaxis Status: Acute (10) Post-traumatic quadriplegia (11) Closed right scapular fracture (12) Right rib fracture (13) Right pulmonary contusion (14) Decubitus ulcer of coccygeal region, stage 4 (15) Shock due to spinal cord injury (16) Diabetes mellitus (17) Elevated blood pressure reading Status: Acute (18) Hospital discharge follow-up (19) Septic prepatellar bursitis of left knee (20) septic bursa (21) Paresthesias Status: Acute (22) Uncontrolled diabetes mellitus Status: Chronic (23) Illicit drug use Status: Acute (24) Cellulitis Status: Acute (25) Hyperglycemia Status: Acute (26) Sepsis Status: Acute (27) Hypertension Status: Chronic (28) Type 2 diabetes mellitus with hyperglycemia Status: Chronic (29) PEG (percutaneous endoscopic gastrostomy) status (30) UTI (urinary tract infection) Status: Acute Qualifiers: Indwelling urinary catheter type: indwelling urethral catheter Encounter type: initial encounter (31) Gram-negative bacteremia Status: Acute MARGUERITE GAN DO Feb 01, 2019 08:21
[2019-02-01] MEDS: POT PHOS/NA PHOS (K-PHOS NEUTRAL) PO SCH ×2 (08:25→20:22)
[2019-02-01] MEDS: FAMOTIDINE 20 MG (PEPCID) TABLET PO SCH ×2 (08:25→20:23)
[2019-02-01] MEDS: LORATADINE (CLARITIN) 10 MG TAB PO SCH (08:25)
[2019-02-01] MEDS: MIDODRINE 10 MG (PROAMATINE) TAB PO SCH ×3 (08:25→20:22)
[2019-02-01] MEDS: SENNA W/DOCUSATE (SENOKOT S) TABLET PO SCH ×2 (08:26→20:24)
[2019-02-01] MEDS: DAKIN'S 1/4 STRENGTH (0.125%) 473 ML BTL TOP SCH (08:26)
[2019-02-01] MEDS: MICONAZOLE 2% POWDER (DESENEX AF) 90 GM TOP SCH ×2 (08:27→20:33)
--- NOTE | 2019-02-01 09:43 | Progress Note - Hospitalist ---
[facility] 02/01/19 0943: Progress Note Mr. Fink developed a fever last night. Sepsis protocol was initianted including 30ml/kg of NS, blood and urine cultures, CXR, and broad-spectrum abx. CXR failed to show any acute process. Blood and urine cultures are still pending. The patient feels back to his baseline this morning. He now denies fever, chills, diaphoresis, N//V. He states he had a sore throat a few days ago, but is now resolved. Of note, Dr. García completed a debridement of his decubitus ulcer earlier in the day w/o the use of inhaled anesthetics. No other complaints today. Plan to monitor for any signs of sepsis, decrease fluid, and continue PT/OT today. PAOLA GAN DO 02/01/192: Supervisory-Addendum Brief Verification & Attestation Participated in pt care: history, MDM, physical Personally performed: exam, history, MDM, supervision of care Care discussed with: Medical Student Procedures: n/a Results interpretation: Verified all documentation Verification and Attestation of Medical Student E/M Service A medical student performed and documented this service in my presence. I reviewed and verified all information documented by the medical student and made modifications to such information, when appropriate. I personally performed the physical exam and medical decision making. Paola Gan, Feb 01, 2019,21:32 [facility] Feb 01, 2019 09:43 PAOLA GAN DO Feb 01, 2019 21:32
[2019-02-01 10:41] LABS: BILIRUBIN,URINE NEGATIVE (NEGATIVE); CLARITY,URINE CLEAR; COLOR,URINE YELLOW; GLUCOSE, URINE (UA) NEGATIVE (NEGATIVE); KETONES,URINE NEGATIVE (NEGATIVE); LEUKOCYTE ESTERASE ,URINE 3+ (NEGATIVE); NITRITE,URINE NEGATIVE (NEGATIVE); PH,URINE 8 (5-9); PROTEIN,URINE 1+ (NEGATIVE); UROBILINOGEN,URINE 1 MG/DL (NORMAL)
[2019-02-01 10:49] LABS: BACTERIA,URINE NEGATIVE /HPF; WBC,URINE 25-50 /HPF
--- NOTE | 2019-02-01 11:28 | Physical Therapy Daily Note ---
PT Daily Note-Current Subjective Patient in bed pre tx, agrees to PT, has no complaints of pain at rest. Will be co-treating with OT due to poor patient mobility, strength, endurance, quadriplegia, the need to coordinate UE and LE during activity. Patient states he has been ill and running a high temp and would prefer to not get out of bed due to this. Appearance Patient in bed post tx with nurse call, phone, tray, all needs met, laying on left side with pillow support, podus boot on, heel above bed on pillow. Mental Status Patient Orientation: Normal For Age soft collar Transfers Therapy Code Descriptions/Definitions Functional [place] Measure: 0=Not Assessed/NA 4=Minimal Assistance 1=Total Assistance 5=Supervision or Setup 2=Maximal Assistance 6=Modified [place] 3=Moderate Assistance 7=Complete [place] Therapy Quality Codes: 6 Independent with activity with or without an assistive device 5 Patient requires set up or clean up by helper. Patient completes activity by themselves 4 Supervision or touching assist (CGA). [place] provide cues , steadying assist 3 The helper provides less than half the effort to complete the activity 2 The helper provides more than half the effort to complete the activity 1 Dependent. The helper does all the effort to complete an activity 7 Patient refused to complete or attempt activity 9 The patient did not perform the activity before the current illness or injury 88 Not attempted due to Medical conditions or safety concerns Transfers (B, C, W/C) (FIM): 1 Scootin Rollin Exercises LE and UE stretching and ROM in all planes. Treatments BLE and BUE stretching and ROM, dressing, practice rolling with changing sheets and cleaning BM, rolling for bathing, bathing Assessment Current Status: Poor Progress No change in mobility. PT Short Term Goals Short Term Goals Time Frame: Jan 17, 2019 Transfers (B,C,W/C) (FIM): 1 Wheelchair (FIM): 4 (if he can get a power chair) Wheelchair Distance: 50' Wheelchair Level of Assist: 4 PT Mcfp Goals Emergency Planner Goals PT Emergency Planner Goals Time Frame: Jan 31, 2019 Transfers (B,C,W/C) (FIM): 1 Sit to Lying (QC): 1 Lying-Sitting on Side/Bed(QC): 1 Rollin Roll Left to Right (QC): 2 Chair/Yxh-jo-Insrd Xfer(QC): 1 Car Transfer (QC): 1 Wheelchair (FIM): 5 (if he can get a power chair) Distance: 150' Wheelchair Level of Assist: 5 Wheel 50 feet with 2 turns (QC: 4 PT Plan Problem List Problem List: Activity Tolerance, Functional Strength, Safety, Balance, Transfer, Bed Mobility, ROM Treatment/Plan Treatment Plan: Continue Plan of Care Treatment Plan: Bed Mobility, Concurrent Therapy, Education, Functional Activity [place], Functional Strength, Group Therapy, Safety, Therapeutic Exercise, Transfers Treatment Duration: Jan 31, 2019 Frequency: At least 5 of 7 days/Wk (IRF) Estimated Hrs Per Day: 1.5 hours per day Patient and/or Family Agrees t: Yes Safety Risks/Education Patient Education: Correct Positioning, Safety Issues Teaching Recipient: Patient Teaching Methods: Demonstration, Discussion Response to Teaching: Reinforcement Needed Time/GCodes Time In: 1015 Time Out: 1130 Total Billed Treatment Time: 75 Total Billed Treatment 1 visit EX 15' FA 60' Co-treated with OT for 45'. PT worked on rolling, scooting, UE and LE stretching and ROM, assist with bathing and dressing, OT worked on bathing and dressing and assist with rolling and ROM. ADRIENNE DURAN PT Feb 01, 2019 11:28
--- NOTE | 2019-02-01 12:48 | Occupational Ther Daily Note ---
OT Current Status-Daily Note Subjective No pain reported. Pt. does state that he was ill last night and that he feels better this a.m. Appearance Pt. is in bed and agrees to work with therapy. Mental Status/Objective Patient Orientation: Person, Place, Time, Situation Therapy Code Descriptions/Definitions Functional [place] Measure: 0=Not Assessed/NA 4=Minimal Assistance 1=Total Assistance 5=Supervision or Setup 2=Maximal Assistance 6=Modified [place] 3=Moderate Assistance 7=Complete [place] Attachments: IV ADL-Treatment Therapy Code Descriptions/Definitions Functional [place] Measure: 0=Not Assessed/NA 4=Minimal Assistance 1=Total Assistance 5=Supervision or Setup 2=Maximal Assistance 6=Modified [place] 3=Moderate Assistance 7=Complete [place] Therapy Quality Codes: 6 Independent with activity with or without an assistive device 5 Patient requires set up or clean up by helper. Patient completes activity by themselves 4 Supervision or touching assist (CGA). [place] provide cues , steadying assist 3 The helper provides less than half the effort to complete the activity 2 The helper provides more than half the effort to complete the activity 1 Dependent. The helper does all the effort to complete an activity 7 Patient refused to complete or attempt activity 9 The patient did not perform the activity before the current illness or injury 88 Not attempted due to Medical conditions or safety concerns Eating (FIM): 2 Eating (QC): 2 Grooming (FIM): 1 Bathing (FIM): 1 Shower/Bathe Self (QC): 1 Lower Body Dressing (FIM): 1 Lower Body Dressing (QC): 1 On/Off Footwear (QC): 1 Toileting (FIM): 1 Toileting Hygiene (QC): 1 Transfers (B, C, W/C) (FIM): 1 Other Treatment Pt. agrees to treatment. OT/PT co-treated due to level of complexity of pt. and need for skilled assist x 2. PT focused on LE PROM and rolling in bed while OT focused on ADLs and UE PROM. Pt. declines OOB activity this date and getting to wheelchair, stating that he just "does not feel like it." PT assists with rolling in bed, positioning of limbs, while OT focuses on cleansing pt. Pt. is given washcloth in right hand but unable to bring to face. Dependent assist for ADLs at bed level. Pt. incontinent of BM and therapy also changed bedding while performing skin care. OT completed gentle PROM to bilateral UE in all planes with increased spasticity noted in elbow flexion. PT assisted with PROM to bilateral LE. OT donned universal cuff and assisted pt. with AAROM to facilitate bringing spoon to mouth to eat sherbert. PT assisted with positioning and posture of upper body overall. Pt. positioned to comfort level with call button in place and pt. on left side for pressure relief. All needs met. Education OT Patient Education: Correct positioning, Exercise program, Modified ADL techniques, Progress toward Goal/Update tx plan, Purpose of tx/functional activities, Reviewed precautions, Rehab process, Transfer techniques Teaching Recipient: Patient Teaching Methods: Demonstration, Discussion Response to Teaching: Verbalize Understanding, Return Demonstration OT Short Term Goals Short Term Goals Time Frame: Jan 24, 2019 Grooming(FIM): 2 (with AE) Upper Body Dressing(FIM): 2 Transfers (B,C,W/C) (FIM): 1 Additional Short Term Goals: 3-ImproveStrength/Estella 1=Demonstrate adherence to instructed precautions during ADL tasks. 2=Patient will verbalize/demonstrate understanding of assistive devices/modifications for ADL. 3=Patient will improve strength/tolerance for activity to enable patient to perform ADL's. OT Salvage Worker Goals Salvage Worker Goals Time Frame: Feb 14, 2019 Eating (FIM): 3 Eating (QC): 3 Groomin Oral Hygiene (QC): 3 Upper Body Dressing(FIM): 3 Additional Goals: 3-ImproveStrength/Estella 1=Demonstrate adherence to instructed precautions during ADL tasks. 2=Patient will verbalize/demonstrate understanding of assistive devices/modifications for ADL. 3=Patient will improve strength/tolerance for activity to enable patient to perform ADL's. OT Education/Plan Problem List/Assessment Assessment: Decreased Activ Tolerance, Decreased UE Strength, Dependent Transfers, Impaired Bed Mobility, Impaired Coordination, Impaired Funct Balance, Impaired I ADL's, Impaired Self-Care Skills, Restricted Funct UE ROM Discharge Recommendations Plan/Recommendations: Continue POC Therapy D/C Recommendations: 24 hr Supervision Treatment Plan/Plan of Care Treatment,Training & Education: Yes Patient would benefit from OT for education, treatment and training to promote independence in ADL's, mobility, safety and/or upper extremity function for ADL's. Plan of Care: ADL Retraining, Caregiver Training, Functional Mobility, Group Exercise/Act as Ind, UE Funct Exercise/Act, UE Neuromus Re-Ed/Coord, W/C Management Training Treatment Duration: Feb 14, 2019 Frequency: At least 5 of 7 days/Wk (IRF) Estimated Hrs Per Day: 1.5 hours per day Agreement: Yes Rehab Potential: Guarded Time/GCodes Start Time: 10:00 Stop Time: 11:15 Total Time Billed (hr/min): 75 Billed Treatment Time 1, ADL x 30minutes, FA x 45minutes SHEYLA PETERSON OT Feb 01, 2019 12:48
[2019-02-01] MEDS: ENOXAPARIN 40 MG/0.4 ML (LOVENOX) SYR SC SCH (13:58)
--- NOTE | 2019-02-01 14:51 | Speech Therapy Daily Note ---
Speech Daily Progress Note Subjective Date Seen by Provider: Feb 01, 2019 Time Seen by Provider: 00:30 The patient states he was sick with the chills and running a fever the past evening. Labs and xrays have been taken. No results at the time of our session. Objective The patient consumed 100% of his Dysphagia II diet for the noontime meal without difficulty. Assessment Assessment Current Status: Good Progress Treatment Plan Continue Plan of Care Communication Comprehension: 6 Expression: 6 Social Cognition Social Interaction: 6 Problem Solvin Memory: 4 Speech Short Term Goals Short Term Goals Short Term Goals 1) The patient will complete memory tasks related to his daily needs at 90% or greater with minimal cues. 2) The patient will complete problem solving tasks related to his daily needs at 90% or greater with minimal cues. 3) The patient will complete safety awareness tasks related to his daily needs at 90% or greater with minimal cues. 4) The patient will tolerate least restrictive diet without s/s of aspiration with 90% or greater. 5) The patient will demonstrate compliance of utilization of compensatory strategies as trained at 90% or greater with minimal cues. Speech Jail Goals Insurance Producer Goals The patient will improve his cognitive status for a safe return home. The patient will maintain adequate nutrition/hydration via safe effective swallow function and/or PEG tube. Speech-Plan Patient/Family Goals Patient/Family Goals: The patient stated yesterday he would be discharging to a local SNF now that he has Medicaid, however this is not the case. He has been denied by multiple facilities within our local area. His discharge is still pending. Treatment Plan Speech Therapy Treatment Plan: Continue Plan of Care Patient continues to progress with oral intake. Treatment Duration: Feb 09, 2019 Frequency: 5 times per week Estimated Hrs Per Day: .5 hour per day Rehab Potential: Guarded Barriers to Learning: Patient's medical status. Pt/Family Agrees to Plan: Yes Safety Risks/Education Teaching Recipient: Patient Teaching Methods: Demonstration, Discussion Response to Teaching: Verbalize Understanding, Return Demonstration Education Topics Provided: Continued safety of oral intake. Time Speech Therapy Time In: 11:45 Speech Therapy Time Out: 12:15 Total Billed Time: 30 Billed Treatment Time 1LUIS DANIEL [address] ST Feb 01, 2019 14:51
--- NOTE | 2019-02-01 14:55 | Pulmonary Progress Note ---
Subjective Time Seen by a Provider: 14:54 Subjective/Events-last exam New onset fever and leukocytosis. Pt has a positive UA. Merrem and Vanco st arted. Sepsis Event Evaluation Height, Weight, BMI Height: 5'3.00" Weight: 150lbs. 9.6oz. [id number]; 26.1 BMI Method:Stated Focused Exam Lactate Level 01/31/19 20:30: Lactic Acid Level 3.03*H 01/31/19 22:40: Lactic Acid Level 2.78*H 02/01/19 06:02: Lactic Acid Level 1.76 Exam Exam Vital Signs Date Time Temp Pulse Resp B/P (MAP) Pulse Ox O2 Delivery O2 Flow Rate FiO2 02/01/19 09:00 Room Air 02/01/19 07:03 93 Room Air 02/01/19 06:32 98.7 87 18 101/70 (80) 97 Room Air 02/01/19 04:45 98.7 02/01/19 02:00 99.6 02/01/19 01:02 90 Room Air 01/31/19 23:55 101.2 01/31/19 23:50 101.2 105 18 145/80 (101) 95 Room Air 01/31/19 22:52 103.3 01/31/19 22:52 103.3 01/31/19 22:00 102.4 01/31/19 21:30 102.4 01/31/19 21:04 101.6 01/31/19 21:00 Room Air 01/31/19 20:13 101.6 92 134/83 (100) 97 Room Air 01/31/19 19:50 Room Air 01/31/19 18:14 100.6 01/31/19 17:20 97.9 68 18 133/77 (95) 96 Room Air 01/31/19 15:22 94 Room Air I & O 02/01/19 06:59 Intake Total 5742 ml Output Total 2300 ml Balance 3442 ml Height & Weight Height: 5'3.00" Weight: 150lbs. 9.6oz. [id number]; 26.1 BMI Method:Stated General Appearance: No Apparent Distress, WD/WN, Chronically ill HEENT: PERRL/EOMI, Pharynx Normal Neck: Non Tender, Supple, Other (cervical collar in place) Respiratory: Chest Non Tender, Lungs Clear, No Accessory Muscle Use, No Respiratory Distress Cardiovascular: Regular Rate, Rhythm, No Edema Capillary Refill: Less Than 3 Seconds Gastrointestinal: soft, distended (mildly distended) Extremity: Normal Inspection Neurologic/Psychiatric: Alert, Oriented x3, Normal Mood/Affect, director of neurology II-XII Norm as Tested, Motor Weakness (chest and below neurological deficit) Skin: Normal Color, Warm/Dry, Other (decubitus ulcer coccyx, eschar in wound no surrounding erythema) Lymphatic: No Adenopathy Results Lab Laboratory Tests 01/31/19 20:30 02/01/19 06:02 Assessment/Plan Assessment/Plan 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 Nesbitt at [facility] [place] Tracheostomy -SVNS with DuoNeb and Mucomyst -s/p tracheostomy tube UTI -Lopez cultures pending -Merrem and vanco were started Decubitus ulcer stage 4 -wound care Rib plating on the right Closed right scapular fracture Diabetes mellitus [id number] requiring insulin PEG tube status Anemia -Monitor Hypertension Neurogenic bladder with Zamarripa catheter Decubitus ulcer in need of debridement -Wound vac -Surgery following Illicit drug use ALONDRA HUSSEIN DO Feb 01, 2019 14:55
[2019-02-01] MEDS: APAP 325 MG/10.15 ML LIQ (TYLENOL) UDC PO PRN (17:24)
[2019-02-01 17:54] VITALS: BP 109/68
--- NOTE | 2019-02-01 18:25 | NUR ---
Dr perez notified of positive bld cultures by lab.
--- NOTE | 2019-02-01 19:01 | Progress Note - Surgery ---
Subjective Time Seen by a Provider: 18:52 Subjective/Events-last exam Pt seen and examined. States he got sick last night and vomited. Review of Systems Pulmonary: No Cough Gastrointestinal: Nausea, Vomiting Focused Exam Lactate Level 01/31/19 20:30: Lactic Acid Level 3.03*H 01/31/19 22:40: Lactic Acid Level 2.78*H 02/01/19 06:02: Lactic Acid Level 1.76 Objective Exam Vital Signs Date Time Temp Pulse Resp B/P (MAP) Pulse Ox O2 Delivery O2 Flow Rate FiO2 02/01/19 18:53 100.8 02/01/19 17:54 100.4 97 18 109/68 (82) 96 Room Air 02/01/19 17:24 99.6 02/01/19 16:31 90 Room Air 02/01/19 09:00 Room Air 02/01/19 07:03 93 Room Air 02/01/19 06:32 98.7 87 18 101/70 (80) 97 Room Air 02/01/19 04:45 98.7 02/01/19 02:00 99.6 02/01/19 01:02 90 Room Air 01/31/19 23:55 101.2 01/31/19 23:50 101.2 105 18 145/80 (101) 95 Room Air 01/31/19 22:52 103.3 01/31/19 22:52 103.3 01/31/19 22:00 102.4 01/31/19 21:30 102.4 01/31/19 21:04 101.6 01/31/19 21:00 Room Air 01/31/19 20:13 101.6 92 134/83 (100) 97 Room Air 01/31/19 19:50 Room Air I & O 02/01/19 07:00 Intake Total 5742 ml Output Total 2300 ml Balance 3442 ml Capillary Refill : Less Than 3 SecondsLess Than 3 Seconds General Appearance: No Apparent Distress, Chronically ill HEENT: PERRL/EOMI, Pharynx Normal Neck: Other (cervical collar in place) Respiratory: Lungs Clear, No Accessory Muscle Use, No Respiratory Distress Cardiovascular: Regular Rate, Rhythm, No Edema Gastrointestinal: soft, distended (mildly distended) Extremity: Normal Inspection Neurologic/Psychiatric: Alert, Oriented x3, Motor Weakness (chest and below neurological deficit) Skin: Other (decubitus ulcer coccyx, eschar in wound no surrounding erythema) Results Lab Laboratory Tests 01/31/19 19:29: Glucometer 130H 01/31/19 20:30: White Blood Count 15.1H, Red Blood Count 3.62L, Hemoglobin 10.9L, Hematocrit 33L , Mean Corpuscular Volume 91, Mean Corpuscular Hemoglobin 30, Mean Corpuscular Hemoglobin Concent 33, Red Cell Distribution Width 13.7, Platelet Count 270, Mean Platelet Volume 8.0, Neutrophils (%) (Auto) 90H, Lymphocytes (%) (Auto) 6L, Monocytes (%) (Auto) 4, Eosinophils (%) (Auto) 0, Basophils (%) (Auto) 0, Neutrophils # (Auto) 13.5H, Lymphocytes # (Auto) 0.9L, Monocytes # (Auto) 0.6, Eosinophils # (Auto) 0.0, Basophils # (Auto) 0.0, Neutrophils % (Manual) 75, Lymphocytes % (Manual) 4, Monocytes % (Manual) 6, Eosinophils % (Manual) 1, Band Neutrophils 15, Blood Morphology Comment NORMAL, Sodium Level 133L, Potassium Level 4.2, Chloride Level 101, Carbon Dioxide Level 18L, Anion Gap 14, Blood Urea Nitrogen 10, Creatinine 0.64, Estimat Glomerular Filtration Rate > 60, BUN/Creatinine Ratio 16, Glucose Level 130H, Lactic Acid Level 3.03*H, Calcium Level 9.4, Corrected Calcium 9.9, Total Bilirubin 0.3, Aspartate Amino Transf (AST/SGOT) 15, Alanine Aminotransferase (ALT/SGPT) 20, Alkaline Phosphatase 164H , Total Protein 7.7, Albumin 3.4 01/31/19 20:50: Glucometer 157H 01/31/19 22:40: Lactic Acid Level 2.78*H 02/01/19 06:00: Glucometer 127H 02/01/19 06:02: White Blood Count 25.0H, Red Blood Count 3.05L, Hemoglobin 9.2L, Hematocrit 28L, Mean Corpuscular Volume 92, Mean Corpuscular Hemoglobin 30, Mean Corpuscular Hemoglobin Concent 33, Red Cell Distribution Width 13.7, Platelet Count 249, Mean Platelet Volume 7.8, Neutrophils (%) (Auto) 79H, Lymphocytes (%) (Auto) 10L , Monocytes (%) (Auto) 11, Eosinophils (%) (Auto) 0, Basophils (%) (Auto) 0, Neutrophils # (Auto) 19.7H, Lymphocytes # (Auto) 2.5, Monocytes # (Auto) 2.7H, Eosinophils # (Auto) 0.0, Basophils # (Auto) 0.0, Sodium Level 132L, Potassium Level 3.9, Chloride Level 103, Carbon Dioxide Level 18L, Anion Gap 11, Blood Urea Nitrogen 11, Creatinine 0.63, Estimat Glomerular Filtration Rate > 60, BUN/Creatinine Ratio 17, Glucose Level 122H, Lactic Acid Level 1.76, Calcium Level 8.3L, Corrected Calcium 9.2, Magnesium Level 1.4L, Total Bilirubin 0.5, Aspartate Amino Transf (AST/SGOT) 16, Alanine Aminotransferase (ALT/SGPT) 18, Alkaline Phosphatase 138H, B-Type Natriuretic Peptide 519.7H, Total Protein 6.3L , Albumin 2.9L 02/01/19 10:15: Urine Color YELLOW, Urine Clarity CLEAR, Urine pH 8, Urine Specific [place] 1.010L, Urine Protein 1+H, Urine Glucose (UA) NEGATIVE, Urine Ketones NEGATIVE, Urine Nitrite NEGATIVE, Urine Bilirubin NEGATIVE, Urine Urobilinogen 1, Urine Leukocyte Esterase 3+H, Urine RBC (Auto) 3+H, Urine RBC 5-10H, Urine WBC 25-50H, Urine Squamous Epithelial Cells NONE, Urine Crystals NONE, Urine Bacteria NEGATIVE, Urine Casts NONE, Urine Mucus NEGATIVE, Urine Culture Indicated YES 02/01/19 10:51: Glucometer 212H 02/01/19 15:45: Glucometer 224H Microbiology 01/31/19 Blood Culture - Preliminary, Resulted No growth 01/10/19 Gram Stain - Final, Complete 01/10/19 Sputum Culture - Final, Complete Usual upper respiratory aaron YEAST 01/31/19 Urine Culture - Preliminary, Resulted Gram Negative Bacillus 1 Assessment/Plan Assessment/Plan Assessment/Plan S/P 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 Decubitus ulcer coccyx Bacteremia probably secondary to UTI S/P debridement of necrotic tissue. IV ABX for bacteremia. Clinical Quality Measures DVT/VTE Risk/Contraindication: Risk Factor Score Per Nursin RFS Level Per Nursing on Admit: 4+=Very High EDMUND ALAMO DO Feb 01, 2019 19:01
[2019-02-01] MEDS: MELATONIN 3 MG TABLET PO SCH (20:22)
[2019-02-01] MEDS: QUEtiapine 25 MG (SEROquel) TAB IMMEDIATE RELEASE PO SCH (20:23)
[2019-02-01] MEDS: MONTELUKAST 10 MG (SINGULAIR) TAB PO SCH (20:23)
[2019-02-01] MEDS: ALPRAZolam 0.5 MG (XANAX) TAB PO PRN (21:03)
[2019-02-02] MEDS: NYSTATIN ORAL SUSP 5 ML UDC PO SCH ×5 (00:04→23:55)
[2019-02-02] MEDS: MEROPENEM 500 MG in WATER (STERILE) FOR INJECTION 10 ML IV SCH ×4 (02:31→20:25)
[2019-02-02] MEDS: RT-ALBUTEROL/IPRATROPIUM 3 ML (DUONEB) VIAL INH SCH ×4 (02:59→20:22)
[2019-02-02] MEDS: ALPRAZolam 0.5 MG (XANAX) TAB PEG PRN (04:31)
[2019-02-02] MEDS: BACLOFEN 10 MG (LIORESAL) TAB PO PRN ×2 (04:31→18:21)
[2019-02-02] MEDS: VANCOMYCIN 750 MG/NS 250 ML IVPB IV SCH ×2 (04:32)
[2019-02-02] MEDS: guaiFENesin SYRUP 100 MG/5 ML 10 ML (ROBITUSSIN SF) PEG SCH ×3 (04:32→21:05)
[2019-02-02 05:37] VITALS: BP 96/60
[2019-02-02] MEDS: KCL 10 MEQ TAB (MICRO K) PO SCH (06:14)
[2019-02-02] MEDS: inSUlin ASPART (NovoLOG) 1 UNIT/0.01 ML (CHARGE PER UNIT) SC SCH ×4 (06:25→20:56)
[2019-02-02 06:52] LABS: BASOPHILS % (AUTO) 0 % (0-10); EOSINOPHILS % (AUTO) 0 % (0-10); HEMATOCRIT 29 % (40-54); HEMOGLOBIN 9.2 G/DL (13.3-17.7); LYMPHOCYTES # (AUTO) 3.2 X 10^3 (1.0-4.0); LYMPHOCYTES % (AUTO) 17 % (12-44); MEAN CORPUSCULAR HEMOGLOBIN 30 PG (25-34); MEAN CORPUSCULAR HGB CONC 32 G/DL (32-36); MEAN CORPUSCULAR VOLUME 93 FL (80-99); MEAN PLATELET VOLUME 8.4 FL (7.4-10.4); MONOCYTES # (AUTO) 1.7 X 10^3 (0.0-1.0); MONOCYTES % (AUTO) 9 % (0-12); NEUTROPHILS # (AUTO) 14.3 X 10^3 (1.8-7.8); NEUTROPHILS % (AUTO) 74 % (42-75); PLATELET COUNT 236 10^3/uL (130-400); RED CELL DISTRIBUTION WIDTH 13.7 % (10.0-14.5); WHITE BLOOD COUNT 19.1 10^3/uL (4.3-11.0)
[2019-02-02 07:14] LABS: ALANINE AMINOTRANSFERASE 15 U/L (0-55); ALBUMIN 2.9 GM/DL (3.2-4.5); ALKALINE PHOSPHATASE 118 U/L (40-136); BILIRUBIN,TOTAL 0.2 MG/DL (0.1-1.0); BUN/CREATININE RATIO 12; CALCIUM 8.7 MG/DL (8.5-10.1); CARBON DIOXIDE 21 MMOL/L (21-32); CHLORIDE 110 MMOL/L (98-107); GFR ESTIMATED > 60; GLUCOSE 89 MG/DL (70-105); POTASSIUM 3.5 MMOL/L (3.6-5.0); SODIUM 141 MMOL/L (135-145); TOTAL PROTEIN 6.5 GM/DL (6.4-8.2)
[2019-02-02 07:40] LABS: BAND NEUTROPHILS 7 %; BASOPHILS % (MANUAL) 0 %; EOSINOPHILS % (MANUAL) 0 %; LYMPHOCYTES % (MANUAL) 21 %; MONOCYTES % (MANUAL) 8 %; NEUTROPHILS % (MANUAL) 64 %; RBC MORPH NORMAL
[2019-02-02] MEDS: MIDODRINE 10 MG (PROAMATINE) TAB PO SCH ×3 (08:34→20:31)
[2019-02-02] MEDS: FAMOTIDINE 20 MG (PEPCID) TABLET PO SCH ×2 (08:34→20:26)
[2019-02-02] MEDS: SENNA W/DOCUSATE (SENOKOT S) TABLET PO SCH ×2 (08:34→20:26)
[2019-02-02] MEDS: POT PHOS/NA PHOS (K-PHOS NEUTRAL) PO SCH ×2 (08:34→20:26)
[2019-02-02] MEDS: LORATADINE (CLARITIN) 10 MG TAB PO SCH (08:34)
--- NOTE | 2019-02-02 08:39 | PM&R Progress Note ---
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 He was unable to maintain his airway. He was intubated at the scene. He was assessed in the ER by Dr. Vaughan trauma surgeon found to have significant hypotension requiring aggressive IV fluids and pressor therapy but then was assessed that he was likely an spinal cord shock and multiple right rib fractures with flail chest requiring transfer to [facility] trauma surgery which resulted in multiple procedures including tracheostomy due to failing weaning protocol on ventilator, PEG tube placement, spine MRIs confirming C3-C7 spinal cord injury complete with plating of ribs 510 on the right side and right sided chest tube. He was found to have drug screen positive for marijuana and methamphetamine. Neurosurgery was consulted perform decompressive laminectomy on C3-C7 with C4-C5 autograft bone screws and rods. He was diagnosed with Haemophilus influenza while intubated and that treatment was completed. He did have rhabdomyolysis from his injuries requiring aggressive IV fluids but they all resolved. Hyperglycemia was diagnosed and he was started on insulin and elevated liver enzymes have improved since admission and hepatitis viral panel along with HIV were negative. He did receive 2 units of packed red blood cells hospitalized. Currently patient is requiring wound care consult by Dr. Craven and general surgery consultation by Dr. García because additional debridement of the sacral decubitus ulcer will be required. He will remain with the c-collar in place until seen Dr. Nesbitt on 01/30/19. Hemoglobin today is 10.1. Dr. Arcos's been consulted for pulmonary issues which she is having increased secretions today in addition urology will be consulted for Goodman catheter maintenance for neurogenic bladder. I did speak with Dr. Arcos who will panculture the patient and change breathing treatments to clear secretions. Patient remains total care with quadriplegia. Subjective/Events-last exam Pseudomonas on all urine culture and blood cultures We will discontinue vancomycin and maintain on meropenem Really thirsty so I told him to drink in moderation since that could actually cause polydipsia source of hyponatremia Temperature 99 Urinary output of [address] Arcos Check meds and labs Conferred with RN Reviewed therapy notes Working pretty well with a power wheelchair Review of Systems Neurological: Weakness, Numbness, Incoordination Focused Exam Lactate Level 01/31/19 20:30: Lactic Acid Level 3.03*H 01/31/19 22:40: Lactic Acid Level 2.78*H 02/01/19 06:02: Lactic Acid Level 1.76 Objective Exam Vital Signs Vital Signs Date Time Temp Pulse Resp B/P (MAP) Pulse Ox O2 Delivery O2 Flow Rate FiO2 02/02/19 20:23 98 Room Air 02/02/19 15:30 99.4 74 14 114/64 (81) 01/27/19 21:30 2.00 Capillary Refill : Less Than 3 SecondsLess Than 3 Seconds General Appearance: No Apparent Distress, WD/WN, Chronically ill, Other (sleepy) HEENT: PERRL/EOMI, Pharynx Normal Neck: Non Tender, Supple, Other (cervical collar in place) Respiratory: Chest Non Tender, Lungs Clear, No Accessory Muscle Use, No Respiratory Distress Cardiovascular: Regular Rate, Rhythm, No Edema Gastrointestinal: Normal Bowel Sounds, No Organomegaly, No Pulsatile Mass, Non Tender, Soft, Other (PEG in place) Back: Normal Inspection, No CVA Tenderness, No Vertebral Tenderness Extremity: Normal Inspection Neurologic/Psychiatric: Alert, Oriented x3, Normal 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 FIM Transfers Therapy Code Descriptions/Definitions Functional [place] Measure: 0=Not Assessed/NA 4=Minimal Assistance 1=Total Assistance 5=Supervision or Setup 2=Maximal Assistance 6=Modified [place] 3=Moderate Assistance 7=Complete [place] Therapy Quality Codes: 6 Independent with activity with or without an assistive device 5 Patient requires set up or clean up by helper. Patient completes activity by themselves 4 Supervision or touching assist (CGA). [place] provide cues , steadying assist 3 The helper provides less than half the effort to complete the activity 2 The helper provides more than half the effort to complete the activity 1 Dependent. The helper does all the effort to complete an activity 7 Patient refused to complete or attempt activity 9 The patient did not perform the activity before the current illness or injury 88 Not attempted due to Medical conditions or safety concerns Transfers (B, C, W/C) (FIM): 1 Scootin Rollin Roll Left to Right (QC): 1 Supine to/from Sit: 1 Sit to/from Stand: 1 Sit to Lying (QC): 1 Sit to Stand (QC): 1 Chair/Bzj-ti-Ahroq Xfer(QC): 1 Bed to/from Chair: 1 Car Transfer (QC): 1 Gait Training Does the Patient Walk?: No and Walking Goal NOT indicated Wheelchair Training Does the Pt Use a Wheelchair?: Yes Wheelchair (FIM): 1 Wheelchair Distance: 5=003-47 ft Distance: 50' Wheelchair Level of Assist: 4 Wheel 50 ft with 2 turns (QC): 4 Wheel 150 ft (QC): 3 Type of Wheelchair: Motorized Mental Status/Objective Comprehension: 6 Expression: 6 Social Interaction: 6 Problem Solvin Memory: 4 ADL-Treatment Feedin Eating (QC): 2 Groomin Oral Hygiene (QC): 1 Bathin Shower/Bathe Self (QC): 1 Upper Extremity Dressin Upper Body Dressing (QC): 1 Lower Extremity Dressin Lower Body Dressing (QC): 1 On/Off Footwear (QC): 1 Toiletin Toileting Hygiene (QC): 1 Toilet/Commode Transfer: 1 Toilet Transfer (QC): 1 Assessment/Plan Assessment and Plan Assess & Plan/Chief Complaint Assessment: 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 García and Dr. Craven and it appears to need additional debridement in the future until healed Wound VAC after debridement if needed Maintained on Lovenox Consult urology is appreciated but no DC cath until coccyx ulcer is healed Rehabilitation to focus on transfers and lessen burden on caretakers [facility] placement now that he now has Medicaid Removes neck brace while sleeping to aid in alleviation of discomfort causing behaviors and will await NSG recs for brace removal at his request Seroquel at night Celexa in the morning Advanced diet Supplement potassium Stop Diflucan since completed treatment DC PEG in next 6 weeks DC trach and doing well NHP once approved and now he has Medicaid so that will help dispo IV abx Sepsis bundle order set Abx broad spectrum Meropenem but DC Vanc (1) Sepsis Status: Acute Qualifiers: Sepsis type: Pseudomonas Sepsis acute organ dysfunction status: without acute organ dysfunction Qualified Codes: A41.52 - Sepsis due to Pseudomonas (2) Spinal cord injury at C1-C4 level Status: Chronic Qualifiers: Encounter type: sequela Qualified Codes: S14.101S - Unspecified injury at C1 level of cervical spinal cord, sequela (3) Anemia Status: Chronic Qualifiers: Anemia type: unspecified type Qualified Codes: D64.9 - Anemia, unspecified (4) Anxiety Status: Chronic (5) Chronic pain Status: Chronic (6) Neurogenic bladder (7) HLD (hyperlipidemia) Status: Chronic (8) Tracheostomy dependent (9) DVT prophylaxis Status: Acute (10) Post-traumatic quadriplegia (11) Closed right scapular fracture (12) Right rib fracture (13) Right pulmonary contusion (14) Decubitus ulcer of coccygeal region, stage 4 (15) Shock due to spinal cord injury (16) Diabetes mellitus (17) Elevated blood pressure reading Status: Acute (18) Hospital discharge follow-up (19) Septic prepatellar bursitis of left knee (20) septic bursa (21) Paresthesias Status: Acute (22) Uncontrolled diabetes mellitus Status: Chronic (23) Illicit drug use Status: Acute (24) Cellulitis Status: Acute (25) Hyperglycemia Status: Acute (26) Sepsis Status: Acute (27) Hypertension Status: Chronic (28) Type 2 diabetes mellitus with hyperglycemia Status: Chronic (29) PEG (percutaneous endoscopic gastrostomy) status (30) UTI (urinary tract infection) Status: Acute Qualifiers: Indwelling urinary catheter type: indwelling urethral catheter Encounter type: initial encounter (31) Gram-negative bacteremia Status: Acute MARGUERITE GAN DO Feb 02, 2019 08:39
[2019-02-02] MEDS: aCETylcysteine 20% (MUCOMYST) 30ML SOLN VIAL INH SCH (09:00)
--- NOTE | 2019-02-02 09:30 | NUR ---
A letter stating the patient requires the assist of 2 people for completion of ADLs, bed mobility and transfers was signed by Dr. Cordero and faxed to Yumiko Markham at the [facility] as requested.
--- NOTE | 2019-02-02 10:00 | NUR ---
Follow up visit: The pt said his goal for discharge is February 06. He anticipates going home with 8 hour nursing care, but has plans to go [place] [facility] [place] if his cannot manage him at home. He expressed that many of the staff have been wonderful, but it is challenging to be physically limited. When the PT, Jessica arrived, the pt asked if he could eat breakfast first as he needed assistance. His food tray was next to him, and he asked if his pancakes were pureed. He expressed irritation when the nurse said they were because he was on a soft diet. He said that he has eaten the pancakes cut up before recently, and did not understand why sometimes they were pureed and other times not, that they did not taste the same. The nurse explained that she did not understand why they were at times not pureed, but that she would follow up and ask.
--- NOTE | 2019-02-02 10:48 | Progress Note - Hospitalist ---
[facility] 02/02/19 1048: Progress Note Raffy has been afebrile over the last 24 hrs. Blood and Urine cultures are still pending for specific organisms. Adjust abx coverage if necessary for more targeted therapy. High urine output through goodman. About 3L in 24 hrs. Patient is also stating his mouth is dry. Mucus membranes moist, however. Continue to monitor microbiology and therapy APOLA CORDERO DO 02/02/19 2134: Supervisory-Addendum Brief Verification & Attestation Participated in pt care: history, MDM, physical Personally performed: exam, history, MDM, supervision of care Care discussed with: Medical Student Procedures: n/a Results interpretation: Verified all documentation Verification and Attestation of Medical Student E/M Service A medical student performed and documented this service in my presence. I reviewed and verified all information documented by the medical student and made modifications to such information, when appropriate. I personally performed the physical exam and medical decision making. Paola Cordero Feb 02, 2019,21:34 [facility] Feb 02, 2019 10:48 PAOLA CORDERO DO Feb 02, 2019 21:34
--- NOTE | 2019-02-02 11:55 | Physical Therapy Daily Note ---
PT Daily Note-Current Subjective Patient in bed pre tx, agrees to PT, has no complaints of pain at rest, will be co-treating with OT due to poor patient mobility, strength, endurance, balance, quadriplegia, and the need to coordinate UE and LE during activity. Appearance Patient in bed post tx with nurse call, phone, tray, OT still in the room. Mental Status Patient Orientation: Normal For Age Attachments: Zamarripa Catheter soft collar Transfers Therapy Code Descriptions/Definitions Functional [place] Measure: 0=Not Assessed/NA 4=Minimal Assistance 1=Total Assistance 5=Supervision or Setup 2=Maximal Assistance 6=Modified [place] 3=Moderate Assistance 7=Complete [place] Therapy Quality Codes: 6 Independent with activity with or without an assistive device 5 Patient requires set up or clean up by helper. Patient completes activity by themselves 4 Supervision or touching assist (CGA). [place] provide cues , steadying assist 3 The helper provides less than half the effort to complete the activity 2 The helper provides more than half the effort to complete the activity 1 Dependent. The helper does all the effort to complete an activity 7 Patient refused to complete or attempt activity 9 The patient did not perform the activity before the current illness or injury 88 Not attempted due to Medical conditions or safety concerns Transfers (B, C, W/C) (FIM): 1 Scootin Rollin Bed to/from Chair: 1 Patient rolled from side to side several times to each side for cleaning from a BM and to get new sheets under him and jareth sling under him. Patient hoyered to power chair. Wheelchair Training Does the Pt Use a Wheelchair?: Yes Wheelchair (FIM): 4 Distance: 400'x2 Wheelchair Level of Assist: 5 Type of Wheelchair: Motorized Patient only min assist around doorways sometimes and in tight situations. Patient is able to turn left and right with an adapted joystick, but barely. Treatments cleaning from BM, rolling, transfer, WC mobility Assessment Current Status: Poor Progress no change in mobility PT Short Term Goals Short Term Goals Time Frame: Jan 17, 2019 Transfers (B,C,W/C) (FIM): 1 Wheelchair (FIM): 4 (if he can get a power chair) Wheelchair Distance: 50' Wheelchair Level of Assist: 4 PT Pizza Chef Goals Jail Goals PT Pizza Chef Goals Time Frame: Jan 31, 2019 Transfers (B,C,W/C) (FIM): 1 Sit to Lying (QC): 1 Lying-Sitting on Side/Bed(QC): 1 Rollin Roll Left to Right (QC): 2 Chair/Edd-gk-Xnmly Xfer(QC): 1 Car Transfer (QC): 1 Wheelchair (FIM): 5 (if he can get a power chair) Distance: 150' Wheelchair Level of Assist: 5 Wheel 50 feet with 2 turns (QC: 4 PT Plan Problem List Problem List: Activity Tolerance, Functional Strength, Safety, Balance, Tra nsfer, Bed Mobility, ROM Treatment/Plan Treatment Plan: Continue Plan of Care Treatment Plan: Bed Mobility, Concurrent Therapy, Education, Functional Activity Estella, Functional Strength, Group Therapy, Safety, Therapeutic Exercise, Transfers Treatment Duration: Jan 31, 2019 Frequency: At least 5 of 7 days/Wk (IRF) Estimated Hrs Per Day: 1.5 hours per day Patient and/or Family Agrees t: Yes Safety Risks/Education Patient Education: Transfer Techniques, Correct Positioning, W/C Management, Safety Issues Teaching Recipient: Patient Teaching Methods: Demonstration, Discussion Response to Teaching: Reinforcement Needed Time/GCodes Time In: 1000 Time Out: 1100 Total Billed Treatment Time: 60 Total Billed Treatment 1 visit FA 30' [facility] 30' ADRIENNE DURAN PT Feb 02, 2019 11:55
--- NOTE | 2019-02-02 12:58 | Speech Therapy Daily Note ---
Speech Daily Progress Note Subjective Date Seen by Provider: Feb 02, 2019 Time Seen by Provider: 00:30 The patient was upset this morning due to receiving puree pancakes. Education was provided for Dysphagia II diet level. Objective The patient consumed 100% of his Dysphagia II diet level without difficulty. Compensatory strategies were utilized as needed, alternation of food:drink at 2:1. Patient's trained as well. Assessment Assessment Current Status: Good Progress Treatment Plan Continue Plan of Care Communication Comprehension: 6 Expression: 6 Social Cognition Social Interaction: 6 Problem Solvin Memory: 4 Speech Short Term Goals Short Term Goals Short Term Goals 1) The patient will complete memory tasks related to his daily needs at 90% or greater with minimal cues. 2) The patient will complete problem solving tasks related to his daily needs at 90% or greater with minimal cues. 3) The patient will complete safety awareness tasks related to his daily needs at 90% or greater with minimal cues. 4) The patient will tolerate least restrictive diet without s/s of aspiration with 90% or greater. 5) The patient will demonstrate compliance of utilization of compensatory strategies as trained at 90% or greater with minimal cues. Speech Hairspring Staker Goals Hairspring Staker Goals The patient will improve his cognitive status for a safe return home. The patient will maintain adequate nutrition/hydration via safe effective swallow function and/or PEG tube. Speech-Plan Patient/Family Goals Patient/Family Goals: The patient states he plans on returning home with his family. His is supposed to help him with in home assistance until there is an opening in the SNF for him. Treatment Plan Speech Therapy Treatment Plan: Continue Plan of Care The patient states he is leaving on 02/06/2019, however this has not been verified at this time. Treatment Duration: Feb 09, 2019 Frequency: 5 times per week Estimated Hrs Per Day: .5 hour per day Rehab Potential: Guarded Barriers to Learning: Patient continues to have some cognitive deficits related to his memory and problem solving. Pt/Family Agrees to Plan: Yes Safety Risks/Education Teaching Recipient: Patient, Significant Other Teaching Methods: Demonstration, Discussion Response to Teaching: Verbalize Understanding, Return Demonstration Education Topics Provided: Safety of oral intake with strategy training Time Speech Therapy Time In: 11:45 Speech Therapy Time Out: 12:15 Total Billed Time: 30 Billed Treatment Time 1, DYST BRANDIE Moseley Feb 02, 2019 12:58
--- NOTE | 2019-02-02 13:04 | Occupational Ther Daily Note ---
OT Current Status-Daily Note Subjective Pt in bed, agrees to therapy. No report of pain. Mental Status/Objective Therapy Code Descriptions/Definitions Functional [place] Measure: 0=Not Assessed/NA 4=Minimal Assistance 1=Total Assistance 5=Supervision or Setup 2=Maximal Assistance 6=Modified [place] 3=Moderate Assistance 7=Complete [place] ADL-Treatment Co-treat with PT secondary to impaired mobility, strength, ADL functioning, and need for skilled clinicians. OT focusing on UE management, ROM, and positioning. PT focusing on mobility. Pt had small BM, required total assist for hygiene. Pt rolled left and right multiple times with total assist for hygiene, linen change and placement of jareth sling. Pt transferred to power w/c using jareth lift. Total assist required to position in w/c. Total assist to don socks. Pt is able to manage joystick on w/c with min assist for mobility in small spaces. Occasional assist to reposition right UE in order to effectively use joystick. Pt was transferred back to bed with jareth. During individual treatment gentle PROM was completed bilateral UE at all joints. Pt resting in bed with needs met and spouse present after session. Therapy Code Descriptions/Definitions Functional [place] Measure: 0=Not Assessed/NA 4=Minimal Assistance 1=Total Assistance 5=Supervision or Setup 2=Maximal Assistance 6=Modified [place] 3=Moderate Assistance 7=Complete [place] Therapy Quality Codes: 6 Independent with activity with or without an assistive device 5 Patient requires set up or clean up by helper. Patient completes activity by themselves 4 Supervision or touching assist (CGA). [place] provide cues , steadying assist 3 The helper provides less than half the effort to complete the activity 2 The helper provides more than half the effort to complete the activity 1 Dependent. The helper does all the effort to complete an activity 7 Patient refused to complete or attempt activity 9 The patient did not perform the activity before the current illness or injury 88 Not attempted due to Medical conditions or safety concerns Lower Body Dressing (QC): 1 On/Off Footwear (QC): 1 Toileting (FIM): 1 Transfers (B, C, W/C) (FIM): 1 OT Short Term Goals Short Term Goals Time Frame: Jan 24, 2019 Grooming(FIM): 2 (with AE) Upper Body Dressing(FIM): 2 Transfers (B,C,W/C) (FIM): 1 Additional Short Term Goals: 3-ImproveStrength/Estella 1=Demonstrate adherence to instructed precautions during ADL tasks. 2=Patient will verbalize/demonstrate understanding of assistive devices/modifications for ADL. 3=Patient will improve strength/tolerance for activity to enable patient to perform ADL's. OT Professor Of Legal Studies Goals Professor Of Legal Studies Goals Time Frame: Feb 14, 2019 Eating (FIM): 3 Eating (QC): 3 Groomin Oral Hygiene (QC): 3 Upper Body Dressing(FIM): 3 Additional Goals: 3-ImproveStrength/Estella 1=Demonstrate adherence to instructed precautions during ADL tasks. 2=Patient will verbalize/demonstrate understanding of assistive devices/modifications for ADL. 3=Patient will improve strength/tolerance for activity to enable patient to perform ADL's. OT Education/Plan Discharge Recommendations Plan/Recommendations: Continue POC Treatment Plan/Plan of Care Patient would benefit from OT for education, treatment and training to promote independence in ADL's, mobility, safety and/or upper extremity function for ADL's. Plan of Care: ADL Retraining, Caregiver Training, Functional Mobility, Group Exercise/Act as Ind, UE Funct Exercise/Act, UE Neuromus Re-Ed/Coord, W/C Management Training Treatment Duration: Feb 14, 2019 Frequency: At least 5 of 7 days/Wk (IRF) Estimated Hrs Per Day: 1.5 hours per day Agreement: Yes Rehab Potential: Guarded Time/GCodes Start Time: 10:00 Stop Time: 11:15 Total Time Billed (hr/min): 75 Billed Treatment Time 1 visit, FAx4(60minutes), EX(15minutes) 60min co-treat with REAGAN OKEEFE OT Feb 02, 2019 13:04
--- NOTE | 2019-02-02 13:30 | Physical Therapy Daily Note ---
PT Daily Note-Current Subjective Patient in bed pre tx, agrees to PT, has no complaints of pain at rest. Patient is flat on his back, will position him on his side with pillow support when done. Appearance Patient in bed post tx positioned correctly, has nurse call, stacy, all needs met. Mental Status Patient Orientation: Normal For Age soft collar Transfers Therapy Code Descriptions/Definitions Functional [place] Measure: 0=Not Assessed/NA 4=Minimal Assistance 1=Total Assistance 5=Supervision or Setup 2=Maximal Assistance 6=Modified [place] 3=Moderate Assistance 7=Complete [place] Therapy Quality Codes: 6 Independent with activity with or without an assistive device 5 Patient requires set up or clean up by helper. Patient completes activity by themselves 4 Supervision or touching assist (CGA). [place] provide cues , steadying assist 3 The helper provides less than half the effort to complete the activity 2 The helper provides more than half the effort to complete the activity 1 Dependent. The helper does all the effort to complete an activity 7 Patient refused to complete or attempt activity 9 The patient did not perform the activity before the current illness or injury 88 Not attempted due to Medical conditions or safety concerns Exercises BLE stretching PROM in all planes Assessment Current Status: Fair Progress no plantarflexion contractures PT Short Term Goals Short Term Goals Time Frame: Jan 17, 2019 Transfers (B,C,W/C) (FIM): 1 Wheelchair (FIM): 4 (if he can get a power chair) Wheelchair Distance: 400'x2 Wheelchair Level of Assist: 4 PT Housekeeping Supervisor Hotel Goals Assisted Goals PT Housekeeping Supervisor Hotel Goals Time Frame: Jan 31, 2019 Transfers (B,C,W/C) (FIM): 1 Sit to Lying (QC): 1 Lying-Sitting on Side/Bed(QC): 1 Rollin Roll Left to Right (QC): 2 Chair/Vrq-aq-Tukya Xfer(QC): 1 Car Transfer (QC): 1 Wheelchair (FIM): 5 (if he can get a power chair) Distance: 150' Wheelchair Level of Assist: 5 Wheel 50 feet with 2 turns (QC: 4 PT Plan Problem List Problem List: Activity Tolerance, Functional Strength, Safety, Balance, Transfer, Bed Mobility, ROM Treatment/Plan Treatment Plan: Continue Plan of Care Treatment Plan: Bed Mobility, Concurrent Therapy, Education, Functional Activity Estella, Functional Strength, Group Therapy, Safety, Therapeutic Exercise, Transfers Treatment Duration: Jan 31, 2019 Frequency: At least 5 of 7 days/Wk (IRF) Estimated Hrs Per Day: 1.5 hours per day Patient and/or Family Agrees t: Yes Safety Risks/Education Patient Education: Correct Positioning, Safety Issues Teaching Recipient: Patient Teaching Methods: Demonstration, Discussion Response to Teaching: Reinforcement Needed Time/GCodes Time In: 1315 Time Out: 1330 Total Billed Treatment Time: 15 Total Billed Treatment 1 visit EX 15' ADRIENNE DURAN PT Feb 02, 2019 13:30
[2019-02-02] MEDS: ENOXAPARIN 40 MG/0.4 ML (LOVENOX) SYR SC SCH (13:43)
[2019-02-02] MEDS: DAKIN'S 1/4 STRENGTH (0.125%) 473 ML BTL TOP SCH (14:01)
[2019-02-02] MEDS: MICONAZOLE 2% POWDER (DESENEX AF) 90 GM TOP SCH ×2 (14:01→20:27)
[2019-02-02 15:30] VITALS: BP 114/64
[2019-02-02] MEDS: MELATONIN 3 MG TABLET PO SCH (20:25)
[2019-02-02] MEDS: ALPRAZolam 0.5 MG (XANAX) TAB PO PRN (20:26)
[2019-02-02] MEDS: MONTELUKAST 10 MG (SINGULAIR) TAB PO SCH (20:26)
[2019-02-02] MEDS: QUEtiapine 25 MG (SEROquel) TAB IMMEDIATE RELEASE PO SCH (20:26)
[2019-02-03] MEDS: MEROPENEM 500 MG in WATER (STERILE) FOR INJECTION 10 ML IV SCH ×4 (02:41→20:59)
[2019-02-03] MEDS: RT-ALBUTEROL/IPRATROPIUM 3 ML (DUONEB) VIAL INH SCH ×4 (02:51→19:23)
[2019-02-03 05:44] VITALS: BP 99/64
[2019-02-03] MEDS: guaiFENesin SYRUP 100 MG/5 ML 10 ML (ROBITUSSIN SF) PEG SCH ×3 (06:28→21:09)
[2019-02-03] MEDS: NYSTATIN ORAL SUSP 5 ML UDC PO SCH ×3 (06:28→18:26)
[2019-02-03] MEDS: KCL 10 MEQ TAB (MICRO K) PO SCH (06:28)
[2019-02-03] MEDS: ALPRAZolam 0.5 MG (XANAX) TAB PEG PRN ×2 (06:29→14:18)
[2019-02-03] MEDS: BACLOFEN 10 MG (LIORESAL) TAB PO PRN (06:29)
[2019-02-03] MEDS: inSUlin ASPART (NovoLOG) 1 UNIT/0.01 ML (CHARGE PER UNIT) SC SCH ×4 (06:41→21:09)
[2019-02-03 06:52] LABS: BASOPHILS % (AUTO) 0 % (0-10); EOSINOPHILS # (AUTO) 0.1 10^3/uL (0.0-0.3); EOSINOPHILS % (AUTO) 1 % (0-10); HEMATOCRIT 30 % (40-54); HEMOGLOBIN 9.5 G/DL (13.3-17.7); LYMPHOCYTES # (AUTO) 2.7 X 10^3 (1.0-4.0); LYMPHOCYTES % (AUTO) 19 % (12-44); MEAN CORPUSCULAR HEMOGLOBIN 30 PG (25-34); MEAN CORPUSCULAR HGB CONC 32 G/DL (32-36); MEAN CORPUSCULAR VOLUME 93 FL (80-99); MONOCYTES # (AUTO) 1.3 X 10^3 (0.0-1.0); MONOCYTES % (AUTO) 9 % (0-12); NEUTROPHILS # (AUTO) 10.3 X 10^3 (1.8-7.8); NEUTROPHILS % (AUTO) 72 % (42-75); PLATELET COUNT 258 10^3/uL (130-400); RED CELL DISTRIBUTION WIDTH 13.7 % (10.0-14.5); WHITE BLOOD COUNT 14.4 10^3/uL (4.3-11.0)
[2019-02-03 07:12] LABS: ALANINE AMINOTRANSFERASE 15 U/L (0-55); ALKALINE PHOSPHATASE 131 U/L (40-136); BILIRUBIN,TOTAL 0.2 MG/DL (0.1-1.0); BUN/CREATININE RATIO 13; CARBON DIOXIDE 24 MMOL/L (21-32); CHLORIDE 106 MMOL/L (98-107); CREATININE SERUM 0.55 MG/DL (0.60-1.30); GFR ESTIMATED > 60; GLUCOSE 87 MG/DL (70-105); POTASSIUM 3.7 MMOL/L (3.6-5.0); SODIUM 139 MMOL/L (135-145); TOTAL PROTEIN 6.9 GM/DL (6.4-8.2)
[2019-02-03] MEDS: aCETylcysteine 20% (MUCOMYST) 30ML SOLN VIAL INH SCH ×2 (08:45→19:23)
[2019-02-03] MEDS: LORATADINE (CLARITIN) 10 MG TAB PO SCH (09:55)
[2019-02-03] MEDS: FAMOTIDINE 20 MG (PEPCID) TABLET PO SCH ×2 (09:55→21:00)
[2019-02-03] MEDS: SENNA W/DOCUSATE (SENOKOT S) TABLET PO SCH ×2 (10:04→21:00)
[2019-02-03] MEDS: POT PHOS/NA PHOS (K-PHOS NEUTRAL) PO SCH ×2 (10:04→21:00)
[2019-02-03] MEDS: MIDODRINE 10 MG (PROAMATINE) TAB PO SCH ×3 (10:04→21:10)
--- NOTE | 2019-02-03 11:38 | PM&R Progress Note ---
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 He was unable to maintain his airway. He was intubated at the scene. He was assessed in the ER by Dr. Vaughan trauma surgeon found to have significant hypotension requiring aggressive IV fluids and pressor therapy but then was assessed that he was likely an spinal cord shock and multiple right rib fractures with flail chest requiring transfer to [facility] trauma surgery which resulted in multiple procedures including tracheostomy due to failing weaning protocol on ventilator, PEG tube placement, spine MRIs confirming C3-C7 spinal cord injury complete with plating of ribs 510 on the right side and right sided chest tube. He was found to have drug screen positive for marijuana and methamphetamine. Neurosurgery was consulted perform decompressive laminectomy on C3-C7 with C4-C5 autograft bone screws and rods. He was diagnosed with Haemophilus influenza while intubated and that treatment was completed. He did have rhabdomyolysis from his injuries requiring aggressive IV fluids but they all resolved. Hyperglycemia was diagnosed and he was started on insulin and elevated liver enzymes have improved since admission and hepatitis viral panel along with HIV were negative. He did receive 2 units of packed red blood cells hospitalized. Currently patient is requiring wound care consult by Dr. Craven and general surgery consultation by Dr. García because additional debridement of the sacral decubitus ulcer will be required. He will remain with the c-collar in place until seen Dr. Nesbitt on 01/30/19. Hemoglobin today is 10.1. Dr. Arcos's been consulted for pulmonary issues which she is having increased secretions today in addition urology will be consulted for Goodman catheter maintenance for neurogenic bladder. I did speak with Dr. Arcos who will panculture the patient and change breathing treatments to clear secretions. Patient remains total care with quadriplegia. Subjective/Events-last exam Pseudomonas on all urine culture and blood cultures and maintained on Meropenem Patient feels pretty good today Urinary output good BM+ Check meds and labs Conferred with RN Reviewed therapy notes Working pretty well with a power wheelchair Review of Systems General: Fatigue Pulmonary: Dyspnea Focused Exam Lactate Level 01/31/19 20:30: Lactic Acid Level 3.03*H 01/31/19 22:40: Lactic Acid Level 2.78*H 02/01/19 06:02: Lactic Acid Level 1.76 Objective Exam Vital Signs Vital Signs Date Time Temp Pulse Resp B/P (MAP) Pulse Ox O2 Delivery O2 Flow Rate FiO2 02/03/19 15:22 99.6 79 14 155/89 (111) 95 Room Air Capillary Refill : Less Than 3 SecondsLess Than 3 Seconds General Appearance: No Apparent Distress, WD/WN, Chronically ill, Other (sleepy) HEENT: PERRL/EOMI, Pharynx Normal Neck: Non Tender, Supple, Other (cervical collar in place) Respiratory: Chest Non Tender, Lungs Clear, No Accessory Muscle Use, No Respiratory Distress Cardiovascular: Regular Rate, Rhythm, No Edema Gastrointestinal: Normal Bowel Sounds, No Organomegaly, No Pulsatile Mass, Non Tender, Soft, Other (PEG in place) Back: Normal Inspection, No CVA Tenderness, No Vertebral Tenderness Extremity: Normal Inspection Neurologic/Psychiatric: Alert, Oriented x3, Normal Mood/Affect, web development manager II-XII Norm as Tested, Motor Weakness (chest and below neurological deficit) Skin: Normal Color, Warm/Dry, Other (decubitus ulcer coccyx, eschar in wound no surrounding erythema) Lymphatic: No Adenopathy Results/Procedures Lab Laboratory Tests 02/03/19 06:46 Patient resulted labs reviewed. FIM Transfers Therapy Code Descriptions/Definitions Functional [place] Measure: 0=Not Assessed/NA 4=Minimal Assistance 1=Total Assistance 5=Supervision or Setup 2=Maximal Assistance 6=Modified [place] 3=Moderate Assistance 7=Complete [place] Therapy Quality Codes: 6 Independent with activity with or without an assistive device 5 Patient requires set up or clean up by helper. Patient completes activity by themselves 4 Supervision or touching assist (CGA). [place] provide cues , steadying assist 3 The helper provides less than half the effort to complete the activity 2 The helper provides more than half the effort to complete the activity 1 Dependent. The helper does all the effort to complete an activity 7 Patient refused to complete or attempt activity 9 The patient did not perform the activity before the current illness or injury 88 Not attempted due to Medical conditions or safety concerns Transfers (B, C, W/C) (FIM): 1 Scootin Rollin Roll Left to Right (QC): 1 Supine to/from Sit: 1 Sit to/from Stand: 1 Sit to Lying (QC): 1 Sit to Stand (QC): 1 Chair/Hdh-lv-Iwcyi Xfer(QC): 1 Bed to/from Chair: 1 Car Transfer (QC): 1 Gait Training Does the Patient Walk?: No and Walking Goal NOT indicated Wheelchair Training Does the Pt Use a Wheelchair?: Yes Wheelchair (FIM): 4 Wheelchair Distance: 7=302-43 ft Distance: 400'x2 Wheelchair Level of Assist: 5 Wheel 50 ft with 2 turns (QC): 4 Wheel 150 ft (QC): 3 Type of Wheelchair: Motorized Mental Status/Objective Comprehension: 6 Expression: 6 Social Interaction: 6 Problem Solvin Memory: 4 ADL-Treatment Feedin Eating (QC): 2 Groomin Oral Hygiene (QC): 1 Bathin Shower/Bathe Self (QC): 1 Upper Extremity Dressin Upper Body Dressing (QC): 1 Lower Extremity Dressin Lower Body Dressing (QC): 1 On/Off Footwear (QC): 1 Toiletin Toileting Hygiene (QC): 1 Toilet/Commode Transfer: 1 Toilet Transfer (QC): 1 Assessment/Plan Assessment and Plan Assess & Plan/Chief Complaint Assessment: 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 García and Dr. Craven and it appears to need additional debridement in the future until healed Wound VAC after debridement if needed Maintained on Lovenox Consult urology is appreciated but no DC cath until coccyx ulcer is healed Rehabilitation to focus on transfers and lessen burden on caretakers intermediate placement now that he now has Medicaid Removes neck brace while sleeping to aid in alleviation of discomfort causing behaviors and will await NSG recs for brace removal at his request Seroquel at night Celexa in the morning Advanced diet Supplement potassium Stop Diflucan since completed treatment DC PEG in next 6 weeks DC trach and doing well NHP once approved and now he has Medicaid so that will help dispo IV abx Sepsis bundle order set Abx broad spectrum Meropenem but DC Vanc (1) Sepsis Status: Acute Qualifiers: Sepsis type: Pseudomonas Sepsis acute organ dysfunction status: without a cute organ dysfunction Qualified Codes: A41.52 - Sepsis due to Pseudomonas (2) Spinal cord injury at C1-C4 level Status: Chronic Qualifiers: Encounter type: sequela Qualified Codes: S14.101S - Unspecified injury at C1 level of cervical spinal cord, sequela (3) Anemia Status: Chronic Qualifiers: Anemia type: unspecified type Qualified Codes: D64.9 - Anemia, unspecified (4) Anxiety Status: Chronic (5) Chronic pain Status: Chronic (6) Neurogenic bladder (7) HLD (hyperlipidemia) Status: Chronic (8) Tracheostomy dependent (9) DVT prophylaxis Status: Acute (10) Post-traumatic quadriplegia (11) Closed right scapular fracture (12) Right rib fracture (13) Right pulmonary contusion (14) Decubitus ulcer of coccygeal region, stage 4 (15) Shock due to spinal cord injury (16) Diabetes mellitus (17) Elevated blood pressure reading Status: Acute (18) Hospital discharge follow-up (19) Septic prepatellar bursitis of left knee (20) septic bursa (21) Paresthesias Status: Acute (22) Uncontrolled diabetes mellitus Status: Chronic (23) Illicit drug use Status: Acute (24) Cellulitis Status: Acute (25) Hyperglycemia Status: Acute (26) Sepsis Status: Acute (27) Hypertension Status: Chronic (28) Type 2 diabetes mellitus with hyperglycemia Status: Chronic (29) PEG (percutaneous endoscopic gastrostomy) status (30) UTI (urinary tract infection) Status: Acute Qualifiers: Indwelling urinary catheter type: indwelling urethral catheter Encounter type: initial encounter (31) Gram-negative bacteremia Status: Acute MARGUERITE GAN DO Feb 03, 2019 11:38
[2019-02-03] MEDS: DAKIN'S 1/4 STRENGTH (0.125%) 473 ML BTL TOP SCH (12:00)
[2019-02-03] MEDS: MICONAZOLE 2% POWDER (DESENEX AF) 90 GM TOP SCH ×2 (12:00→21:09)
--- NOTE | 2019-02-03 12:03 | Progress Note - Surgery ---
Subjective Time Seen by a Provider: 11:44 Subjective/Events-last exam Pt seen and examined, no complaints and states he is doing better. Review of Systems General: No Chills, No Night Sweats Pulmonary: No Dyspnea, No Cough Cardiovascular: No: Chest Pain, Palpitations Focused Exam Lactate Level 01/31/19 20:30: Lactic Acid Level 3.03*H 01/31/19 22:40: Lactic Acid Level 2.78*H 02/01/19 06:02: Lactic Acid Level 1.76 Objective Exam Vital Signs Date Time Temp Pulse Resp B/P (MAP) Pulse Ox O2 Delivery O2 Flow Rate FiO2 02/03/19 08:45 92 Room Air 02/03/19 05:44 98.8 73 16 99/64 (76) 94 Room Air 02/03/19 02:51 93 Room Air 02/02/19 21:00 Room Air 02/02/19 20:23 98 Room Air 02/02/19 16:41 95 Room Air 02/02/19 15:30 99.4 74 14 114/64 (81) 96 Room Air I & O 02/03/19 07:00 Intake Total 2260 ml Output Total 6502 ml Balance -4242 ml Capillary Refill : Less Than 3 SecondsLess Than 3 Seconds General Appearance: No Apparent Distress, Chronically ill, Other (sleepy) HEENT: PERRL/EOMI Neck: Other (cervical collar in place) Respiratory: Chest Non Tender, Lungs Clear, No Accessory Muscle Use, No Respiratory Distress Cardiovascular: Regular Rate, Rhythm, No Edema Gastrointestinal: soft, distended (mildly distended) Neurologic/Psychiatric: Alert, Oriented x3 Skin: Other (decubitus ulcer coccyx, no necrotic tissue around edges; looking much better than before) Results Lab Laboratory Tests 02/02/19 15:26: Glucometer 181H 02/02/19 20:14: Glucometer 178H 02/03/19 06:39: Glucometer 87 02/03/19 06:46: White Blood Count 14.4H, Red Blood Count 3.22L, Hemoglobin 9.5L, Hematocrit 30L, Mean Corpuscular Volume 93, Mean Corpuscular Hemoglobin 30, Mean Corpuscular Hemoglobin Concent 32, Red Cell Distribution Width 13.7, Platelet Count 258, Mean Platelet Volume 8.0, Neutrophils (%) (Auto) 72, Lymphocytes (%) (Auto) 19, Monocytes (%) (Auto) 9, Eosinophils (%) (Auto) 1, Basophils (%) (Auto) 0, Neutrophils # (Auto) 10.3H, Lymphocytes # (Auto) 2.7, Monocytes # (Auto) 1.3H, Eosinophils # (Auto) 0.1, Basophils # (Auto) 0.0, Sodium Level 139, Potassium Level 3.7, Chloride Level 106, Carbon Dioxide Level 24, Anion Gap 9, Blood Urea Nitrogen 7, Creatinine 0.55L, Estimat Glomerular Filtration Rate > 60, BUN/Creatinine Ratio 13, Glucose Level 87, Calcium Level 9.0, Corrected Calcium 9.8, Total Bilirubin 0.2, Aspartate Amino Transf (AST/SGOT) 14, Alanine Aminotransferase (ALT/SGPT) 15, Alkaline Phosphatase 131, Total Protein 6.9, Albumin 3.0L 02/03/19 11:23: Glucometer 139H Microbiology 01/31/19 Blood Culture - Preliminary, Resulted Probable Pseudomonas 02/01/19 Gram Stain - Final, Resulted 02/01/19 Sputum Culture - Preliminary, Resulted Usual upper respiratory aaron 02/01/19 Urine Culture - Preliminary, Resulted Gram Negative Bacillus 1 Assessment/Plan Assessment/Plan Assessment/Plan S/P 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 Decubitus ulcer coccyx Bacteremia probably secondary to UTI Continue Dakins solution and good wound care. Clinical Quality Measures DVT/VTE Risk/Contraindication: Risk Factor Score Per Nursin RFS Level Per Nursing on Admit: 4+=Very High EDMUND ALAMO DO Feb 03, 2019 12:03
--- NOTE | 2019-02-03 12:40 | Physical Therapy Daily Note ---
PT Daily Note-Current Subjective Pt reports he is feeling very stiff this morning, agreeable to PT session for ROM and strengthening Pain Numeric Pain Scale: 2 Comment: shoulders Appearance Pt in bed awake and alert before and after PT session, call light, phone and bedside table within reach Mental Status Patient Orientation: Person, Place, Time, Eyes Open Transfers Therapy Code Descriptions/Definitions Functional [place] Measure: 0=Not Assessed/NA 4=Minimal Assistance 1=Total Assistance 5=Supervision or Setup 2=Maximal Assistance 6=Modified [place] 3=Moderate Assistance 7=Complete [place] Therapy Quality Codes: 6 Independent with activity with or without an assistive device 5 Patient requires set up or clean up by helper. Patient completes activity by themselves 4 Supervision or touching assist (CGA). [place] provide cues , steadying assist 3 The helper provides less than half the effort to complete the activity 2 The helper provides more than half the effort to complete the activity 1 Dependent. The helper does all the effort to complete an activity 7 Patient refused to complete or attempt activity 9 The patient did not perform the activity before the current illness or injury 88 Not attempted due to Medical conditions or safety concerns Scootin (A of 2 to scoot up in bed) Rollin (Max assist to roll to L side, pt able to begin some but requiring physical assist) Exercises Supine Reps: 20 (PROM UE's and LE's in all planes, AAROM UE's, AROM UE's, PROM LE's noting some tone) Treatments bed mobility, education, ROM, strengthening, coordination Assessment Current Status: Fair Progress PT Short Term Goals Short Term Goals Time Frame: Jan 17, 2019 Transfers (B,C,W/C) (FIM): 1 Wheelchair (FIM): 4 (if he can get a power chair) Wheelchair Distance: 400'x2 Wheelchair Level of Assist: 4 PT Custodial Goals [employer] Goals PT Custodial Goals Time Frame: Jan 31, 2019 Transfers (B,C,W/C) (FIM): 1 Sit to Lying (QC): 1 Lying-Sitting on Side/Bed(QC): 1 Rollin Roll Left to Right (QC): 2 Chair/Zrh-yj-Ndhmd Xfer(QC): 1 Car Transfer (QC): 1 Wheelchair (FIM): 5 (if he can get a power chair) Distance: 150' Wheelchair Level of Assist: 5 Wheel 50 feet with 2 turns (QC: 4 PT Plan Treatment/Plan Treatment Plan: Continue Plan of Care Treatment Plan: Bed Mobility, Concurrent Therapy, Education, Functional Activity Estella, Functional Strength, Group Therapy, Safety, Therapeutic Exercise, Transfers Treatment Duration: Jan 31, 2019 Frequency: At least 5 of 7 days/Wk (IRF) Estimated Hrs Per Day: 1.5 hours per day Patient and/or Family Agrees t: Yes Safety Risks/Education Patient Education: Safety Issues Teaching Recipient: Patient Teaching Methods: Demonstration, Discussion Response to Teaching: Verbalize Understanding HEP Time/GCodes Time In: 745 Time Out: 823 Total Billed Treatment Time: 38 Total Billed Treatment 1 visit, FA x1 unit, EX x2 units BLAYNE GARDUNO VOCATIONAL PLACEMENT SPECIALIST Feb 03, 2019 12:40
[2019-02-03] MEDS: ENOXAPARIN 40 MG/0.4 ML (LOVENOX) SYR SC SCH (14:21)
[2019-02-03 15:22] VITALS: BP 155/89
[2019-02-03] MEDS: MONTELUKAST 10 MG (SINGULAIR) TAB PO SCH (21:00)
[2019-02-03] MEDS: ALPRAZolam 0.5 MG (XANAX) TAB PO PRN (21:00)
[2019-02-03] MEDS: QUEtiapine 25 MG (SEROquel) TAB IMMEDIATE RELEASE PO SCH (21:00)
[2019-02-03] MEDS: MELATONIN 3 MG TABLET PO SCH (21:01)
[2019-02-04] MEDS: RT-ALBUTEROL/IPRATROPIUM 3 ML (DUONEB) VIAL INH SCH ×3 (02:30→19:05)
[2019-02-04] MEDS: MEROPENEM 500 MG in WATER (STERILE) FOR INJECTION 10 ML IV SCH ×4 (02:51→20:47)
[2019-02-04 05:37] VITALS: BP 98/64
[2019-02-04 05:37] LABS: BASOPHILS % (AUTO) 0 % (0-10); EOSINOPHILS # (AUTO) 0.1 10^3/uL (0.0-0.3); EOSINOPHILS % (AUTO) 1 % (0-10); HEMATOCRIT 31 % (40-54); HEMOGLOBIN 10.2 G/DL (13.3-17.7); LYMPHOCYTES # (AUTO) 2.8 X 10^3 (1.0-4.0); LYMPHOCYTES % (AUTO) 24 % (12-44); MEAN CORPUSCULAR HEMOGLOBIN 30 PG (25-34); MEAN CORPUSCULAR HGB CONC 33 G/DL (32-36); MEAN CORPUSCULAR VOLUME 91 FL (80-99); MONOCYTES # (AUTO) 1.3 X 10^3 (0.0-1.0); MONOCYTES % (AUTO) 11 % (0-12); NEUTROPHILS # (AUTO) 7.6 X 10^3 (1.8-7.8); NEUTROPHILS % (AUTO) 65 % (42-75); PLATELET COUNT 330 10^3/uL (130-400); RED CELL DISTRIBUTION WIDTH 13.5 % (10.0-14.5); WHITE BLOOD COUNT 11.7 10^3/uL (4.3-11.0)
[2019-02-04 05:56] LABS: ALANINE AMINOTRANSFERASE 19 U/L (0-55); ALBUMIN 3.1 GM/DL (3.2-4.5); ALKALINE PHOSPHATASE 127 U/L (40-136); BILIRUBIN,TOTAL 0.2 MG/DL (0.1-1.0); BUN/CREATININE RATIO 11; CALCIUM 9.4 MG/DL (8.5-10.1); CARBON DIOXIDE 22 MMOL/L (21-32); CHLORIDE 103 MMOL/L (98-107); CREATININE SERUM 0.62 MG/DL (0.60-1.30); GFR ESTIMATED > 60; GLUCOSE 95 MG/DL (70-105); POTASSIUM 3.5 MMOL/L (3.6-5.0); SODIUM 138 MMOL/L (135-145); TOTAL PROTEIN 7.6 GM/DL (6.4-8.2)
[2019-02-04] MEDS: inSUlin ASPART (NovoLOG) 1 UNIT/0.01 ML (CHARGE PER UNIT) SC SCH ×4 (06:22→20:48)
[2019-02-04] MEDS: NYSTATIN ORAL SUSP 5 ML UDC PO SCH ×5 (06:38→23:30)
[2019-02-04] MEDS: KCL 10 MEQ TAB (MICRO K) PO SCH (06:38)
[2019-02-04] MEDS: guaiFENesin SYRUP 100 MG/5 ML 10 ML (ROBITUSSIN SF) PEG SCH ×3 (06:38→20:48)
[2019-02-04] MEDS: BACLOFEN 10 MG (LIORESAL) TAB PO PRN ×2 (06:38→18:33)
[2019-02-04] MEDS: SENNA W/DOCUSATE (SENOKOT S) TABLET PO SCH ×2 (08:43→20:49)
[2019-02-04] MEDS: POT PHOS/NA PHOS (K-PHOS NEUTRAL) PO SCH ×2 (08:43→20:49)
[2019-02-04] MEDS: FAMOTIDINE 20 MG (PEPCID) TABLET PO SCH ×2 (08:43→20:49)
[2019-02-04] MEDS: LORATADINE (CLARITIN) 10 MG TAB PO SCH (08:43)
[2019-02-04] MEDS: MIDODRINE 10 MG (PROAMATINE) TAB PO SCH ×3 (08:43→20:49)
[2019-02-04] MEDS: DAKIN'S 1/4 STRENGTH (0.125%) 473 ML BTL TOP SCH (08:44)
[2019-02-04] MEDS: MICONAZOLE 2% POWDER (DESENEX AF) 90 GM TOP SCH ×2 (08:45→20:50)
[2019-02-04] MEDS: ALPRAZolam 0.5 MG (XANAX) TAB PEG PRN ×2 (08:45→16:40)
[2019-02-04] MEDS: aCETylcysteine 20% (MUCOMYST) 30ML SOLN VIAL INH SCH ×2 (10:36→19:05)
--- NOTE | 2019-02-04 11:07 | PM&R Progress Note ---
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 He was unable to maintain his airway. He was intubated at the scene. He was assessed in the ER by Dr. Vaughan trauma surgeon found to have significant hypotension requiring aggressive IV fluids and pressor therapy but then was assessed that he was likely an spinal cord shock and multiple right rib fractures with flail chest requiring transfer to [facility] trauma surgery which resulted in multiple procedures including tracheostomy due to failing weaning protocol on ventilator, PEG tube placement, spine MRIs confirming C3-C7 spinal cord injury complete with plating of ribs 510 on the right side and right sided chest tube. He was found to have drug screen positive for marijuana and methamphetamine. Neurosurgery was consulted perform decompressive laminectomy on C3-C7 with C4-C5 autograft bone screws and rods. He was diagnosed with Haemophilus influenza while intubated and that treatment was completed. He did have rhabdomyolysis from his injuries requiring aggressive IV fluids but they all resolved. Hyperglycemia was diagnosed and he was started on insulin and elevated liver enzymes have improved since admission and hepatitis viral panel along with HIV were negative. He did receive 2 units of packed red blood cells hospitalized. Currently patient is requiring wound care consult by Dr. Craven and general surgery consultation by Dr. García because additional debridement of the sacral decubitus ulcer will be required. He will remain with the c-collar in place until seen Dr. Nesbitt on 01/30/19. Hemoglobin today is 10.1. Dr. Arcos's been consulted for pulmonary issues which she is having increased secretions today in addition urology will be consulted for Goodman catheter maintenance for neurogenic bladder. I did speak with Dr. Arcos who will panculture the patient and change breathing treatments to clear secretions. Patient remains total care with quadriplegia. Subjective/Events-last exam Pseudomonas on all urine culture and blood cultures and maintained on Meropenem D#5 Patient feels pretty good today Urinary output good BM+ Check meds and labs Potassium 3.5 so will give KCL 40meq IV over 4 hours Conferred with RN Reviewed therapy notes Change Nebs to BID Review of Systems General: Fatigue Neurological: Weakness, Numbness, Incoordination Objective Exam Vital Signs Vital Signs Date Time Temp Pulse Resp B/P (MAP) Pulse Ox O2 Delivery O2 Flow Rate FiO2 02/04/19 15:35 100.0 68 14 139/78 (98) 97 Room Air Capillary Refill : Less Than 3 SecondsLess Than 3 Seconds General Appearance: No Apparent Distress, WD/WN, Chronically ill, Other (sleepy) HEENT: PERRL/EOMI, Pharynx Normal Neck: Non Tender, Supple, Other (cervical collar in place) Respiratory: Chest Non Tender, Lungs Clear, Normal Breath Sounds, No Accessory Muscle Use, No Respiratory Distress Cardiovascular: Regular Rate, Rhythm, No Edema Gastrointestinal: Normal Bowel Sounds, No Organomegaly, No Pulsatile Mass, Non Tender, Soft, Other (PEG in place) Back: Normal Inspection, No CVA Tenderness, No Vertebral Tenderness Extremity: Normal Inspection Neurologic/Psychiatric: Alert, Oriented x3, Normal 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 FIM Transfers Therapy Code Descriptions/Definitions Functional [place] Measure: 0=Not Assessed/NA 4=Minimal Assistance 1=Total Assistance 5=Supervision or Setup 2=Maximal Assistance 6=Modified [place] 3=Moderate Assistance 7=Complete [place] Therapy Quality Codes: 6 Independent with activity with or without an assistive device 5 Patient requires set up or clean up by helper. Patient completes activity by themselves 4 Supervision or touching assist (CGA). [place] provide cues , steadying assist 3 The helper provides less than half the effort to complete the activity 2 The helper provides more than half the effort to complete the activity 1 Dependent. The helper does all the effort to complete an activity 7 Patient refused to complete or attempt activity 9 The patient did not perform the activity before the current illness or injury 88 Not attempted due to Medical conditions or safety concerns Transfers (B, C, W/C) (FIM): 1 Scootin (A of 2 to scoot up in bed) Rollin (Max assist to roll to L side, pt able to begin some but requiring physical assist) Roll Left to Right (QC): 1 Supine to/from Sit: 1 Sit to/from Stand: 1 Sit to Lying (QC): 1 Sit to Stand (QC): 1 Chair/Ecl-vk-Idvge Xfer(QC): 1 Bed to/from Chair: 1 Car Transfer (QC): 1 Gait Training Does the Patient Walk?: No and Walking Goal NOT indicated Wheelchair Training Does the Pt Use a Wheelchair?: Yes Wheelchair (FIM): 4 Wheelchair Distance: 7=414-77 ft Distance: 400'x2 Wheelchair Level of Assist: 5 Wheel 50 ft with 2 turns (QC): 4 Wheel 150 ft (QC): 3 Type of Wheelchair: Motorized Mental Status/Objective Comprehension: 6 Expression: 6 Social Interaction: 6 Problem Solvin Memory: 4 ADL-Treatment Feedin Eating (QC): 2 Groomin Oral Hygiene (QC): 1 Bathin Shower/Bathe Self (QC): 1 Upper Extremity Dressin Upper Body Dressing (QC): 1 Lower Extremity Dressin Lower Body Dressing (QC): 1 On/Off Footwear (QC): 1 Toiletin Toileting Hygiene (QC): 1 Toilet/Commode Transfer: 1 Toilet Transfer (QC): 1 Assessment/Plan Assessment and Plan Assess & Plan/Chief Complaint Assessment: 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 García and Dr. Craven and it appears to need additional debridement in the future until healed Wound VAC after debridement if needed Maintained on Lovenox Consult urology is appreciated but no DC cath until coccyx ulcer is healed Rehabilitation to focus on transfers and lessen burden on caretakers correction placement now that he now has Medicaid Removes neck brace while sleeping to aid in alleviation of discomfort causing behaviors and will await NSG recs for brace removal at his request Seroquel at night Celexa in the morning Advanced diet Supplement potassium Stop Diflucan since completed treatment DC PEG in next 6 weeks DC trach and doing well NHP once approved and now he has Medicaid so that will help dispo IV abx Sepsis bundle order set Abx broad spectrum Meropenem but DC Vanc (1) Sepsis Status: Acute Qualifiers: Sepsis type: Pseudomonas Sepsis acute organ dysfunction status: without acute organ dysfunction Qualified Codes: A41.52 - Sepsis due to Pseudomonas (2) Spinal cord injury at C1-C4 level Status: Chronic Qualifiers: Encounter type: sequela Qualified Codes: S14.101S - Unspecified injury at C1 level of cervical spinal cord, sequela (3) Anemia Status: Chronic Qualifiers: Anemia type: unspecified type Qualified Codes: D64.9 - Anemia, unspecified (4) Anxiety Status: Chronic (5) Chronic pain Status: Chronic (6) Neurogenic bladder (7) HLD (hyperlipidemia) Status: Chronic (8) Tracheostomy dependent (9) DVT prophylaxis Status: Acute (10) Post-traumatic quadriplegia (11) Closed right scapular fracture (12) Right rib fracture (13) Right pulmonary contusion (14) Decubitus ulcer of coccygeal region, stage 4 (15) Shock due to spinal cord injury (16) Diabetes mellitus (17) Elevated blood pressure reading Status: Acute (18) Hospital discharge follow-up (19) Septic prepatellar bursitis of left knee (20) septic bursa (21) Paresthesias Status: Acute (22) Uncontrolled diabetes mellitus Status: Chronic (23) Illicit drug use Status: Acute (24) Cellulitis Status: Acute (25) Hyperglycemia Status: Acute (26) Sepsis Status: Acute (27) Hypertension Status: Chronic (28) Type 2 diabetes mellitus with hyperglycemia Status: Chronic (29) PEG (percutaneous endoscopic gastrostomy) status (30) UTI (urinary tract infection) Status: Acute Qualifiers: Indwelling urinary catheter type: indwelling urethral catheter Encounter type: initial encounter (31) Gram-negative bacteremia Status: Acute MARGUERITE GAN DO Feb 04, 2019 11:07
[2019-02-04] MEDS: POTASSIUM CL 10MEQ/50ML IVPB 50 ML IV SCH ×4 (12:28→16:40)
[2019-02-04 15:35] VITALS: BP 139/78
[2019-02-04] MEDS: ENOXAPARIN 40 MG/0.4 ML (LOVENOX) SYR SC SCH (16:38)
[2019-02-04] MEDS: MELATONIN 3 MG TABLET PO SCH (20:49)
[2019-02-04] MEDS: MONTELUKAST 10 MG (SINGULAIR) TAB PO SCH (20:49)
[2019-02-04] MEDS: ALPRAZolam 0.5 MG (XANAX) TAB PO PRN (20:49)
[2019-02-04] MEDS: QUEtiapine 25 MG (SEROquel) TAB IMMEDIATE RELEASE PO SCH (20:49)
[2019-02-05] MEDS: MEROPENEM 500 MG in WATER (STERILE) FOR INJECTION 10 ML IV SCH ×2 (01:52→09:24)
[2019-02-05 05:05] VITALS: BP 96/60
[2019-02-05 06:13] LABS: BASOPHILS # (AUTO) 0.1 10^3/uL (0.0-0.1); BASOPHILS % (AUTO) 1 % (0-10); EOSINOPHILS # (AUTO) 0.1 10^3/uL (0.0-0.3); EOSINOPHILS % (AUTO) 1 % (0-10); HEMATOCRIT 32 % (40-54); HEMOGLOBIN 10.3 G/DL (13.3-17.7); LYMPHOCYTES # (AUTO) 3.2 X 10^3 (1.0-4.0); LYMPHOCYTES % (AUTO) 31 % (12-44); MEAN CORPUSCULAR HEMOGLOBIN 29 PG (25-34); MEAN CORPUSCULAR HGB CONC 32 G/DL (32-36); MEAN CORPUSCULAR VOLUME 91 FL (80-99); MEAN PLATELET VOLUME 7.8 FL (7.4-10.4); MONOCYTES # (AUTO) 1.4 X 10^3 (0.0-1.0); MONOCYTES % (AUTO) 13 % (0-12); NEUTROPHILS # (AUTO) 5.8 X 10^3 (1.8-7.8); NEUTROPHILS % (AUTO) 55 % (42-75); PLATELET COUNT 324 10^3/uL (130-400); RED CELL DISTRIBUTION WIDTH 13.6 % (10.0-14.5); WHITE BLOOD COUNT 10.5 10^3/uL (4.3-11.0)
[2019-02-05 06:29] LABS: ALANINE AMINOTRANSFERASE 19 U/L (0-55); ALKALINE PHOSPHATASE 122 U/L (40-136); BILIRUBIN,TOTAL 0.3 MG/DL (0.1-1.0); BUN/CREATININE RATIO 12; CALCIUM 9.3 MG/DL (8.5-10.1); CARBON DIOXIDE 21 MMOL/L (21-32); CHLORIDE 104 MMOL/L (98-107); GFR ESTIMATED > 60; GLUCOSE 99 MG/DL (70-105); POTASSIUM 4.1 MMOL/L (3.6-5.0); SODIUM 136 MMOL/L (135-145); TOTAL PROTEIN 7.3 GM/DL (6.4-8.2)
[2019-02-05] MEDS: BACLOFEN 10 MG (LIORESAL) TAB PO PRN ×2 (06:41→21:11)
[2019-02-05] MEDS: KCL 10 MEQ TAB (MICRO K) PO SCH (06:41)
[2019-02-05] MEDS: guaiFENesin SYRUP 100 MG/5 ML 10 ML (ROBITUSSIN SF) PEG SCH ×3 (06:41→22:16)
[2019-02-05] MEDS: NYSTATIN ORAL SUSP 5 ML UDC PO SCH ×3 (06:41→18:01)
[2019-02-05] MEDS: inSUlin ASPART (NovoLOG) 1 UNIT/0.01 ML (CHARGE PER UNIT) SC SCH ×4 (06:58→21:17)
[2019-02-05] MEDS: RT-ALBUTEROL/IPRATROPIUM 3 ML (DUONEB) VIAL INH SCH ×3 (07:16→20:10)
[2019-02-05] MEDS: aCETylcysteine 20% (MUCOMYST) 30ML SOLN VIAL INH SCH ×3 (07:16→20:11)
[2019-02-05 08:00] VITALS: BP 109/72
--- NOTE | 2019-02-05 08:38 | PM&R Progress Note ---
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 He was unable to maintain his airway. He was intubated at the scene. He was assessed in the ER by Dr. Vaughan trauma surgeon found to have significant hypotension requiring aggressive IV fluids and pressor therapy but then was assessed that he was likely an spinal cord shock and multiple right rib fractures with flail chest requiring transfer to [facility] trauma surgery which resulted in multiple procedures including tracheostomy due to failing weaning protocol on ventilator, PEG tube placement, spine MRIs confirming C3-C7 spinal cord injury complete with plating of ribs 510 on the right side and right sided chest tube. He was found to have drug screen positive for marijuana and methamphetamine. Neurosurgery was consulted perform decompressive laminectomy on C3-C7 with C4-C5 autograft bone screws and rods. He was diagnosed with Haemophilus influenza while intubated and that treatment was completed. He did have rhabdomyolysis from his injuries requiring aggressive IV fluids but they all resolved. Hyperglycemia was diagnosed and he was started on insulin and elevated liver enzymes have improved since admission and hepatitis viral panel along with HIV were negative. He did receive 2 units of packed red blood cells hospitalized. Currently patient is requiring wound care consult by Dr. Craven and general surgery consultation by Dr. García because additional debridement of the sacral decubitus ulcer will be required. He will remain with the c-collar in place until seen Dr. Nesbitt on 01/30/19. Hemoglobin today is 10.1. Dr. Arcos's been consulted for pulmonary issues which she is having increased secretions today in addition urology will be consulted for Goodman catheter maintenance for neurogenic bladder. I did speak with Dr. Arcos who will panculture the patient and change breathing treatments to clear secretions. Patient remains total care with quadriplegia. Subjective/Events-last exam Bowel movements are good and soft Decubitus ulcer management by Dr. García Picc line has had some dysfunctions so will fix that today Pt intends to be DC tomorrow to home in the care of his Pt will need a great deal of help and Rosalia the social media director was able to secure a Orly Lift and so forth I did obtain a follow up at [facility] for him Shoulders are really causing a lot of pain so I started a low dose of Utlram 50 mg twice daily prn Meropenem maintained since Tuesday night empirically for the Pseudomonas Bacteremia will reach out to [facility] to evaluate oral formulation Conferred with RN Reviewed therapy notes Review of Systems General: Fatigue Neurological: Weakness, Numbness, Incoordination Objective Exam Vital Signs Vital Signs Date Time Temp Pulse Resp B/P (MAP) Pulse Ox O2 Delivery O2 Flow Rate FiO2 02/05/19 20:03 Room Air 02/05/19 15:39 99.6 65 14 125/80 (95) 98 Capillary Refill : Less Than 3 SecondsLess Than 3 Seconds General Appearance: No Apparent Distress, WD/WN, Chronically ill, Other (sleepy) HEENT: PERRL/EOMI, Pharynx Normal Neck: Non Tender, Supple, Other (cervical collar in place) Respiratory: Chest Non Tender, Lungs Clear, Normal Breath Sounds, No Accessory Muscle Use, No Respiratory Distress Cardiovascular: Regular Rate, Rhythm, No Edema Gastrointestinal: Normal Bowel Sounds, No Organomegaly, No Pulsatile Mass, Non Tender, Soft, Other (PEG in place) Back: Normal Inspection, No CVA Tenderness, No Vertebral Tenderness Extremity: Normal Inspection Neurologic/Psychiatric: Alert, Oriented x3, 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 FIM Transfers Therapy Code Descriptions/Definitions Functional [place] Measure: 0=Not Assessed/NA 4=Minimal Assistance 1=Total Assistance 5=Supervision or Setup 2=Maximal Assistance 6=Modified [place] 3=Moderate Assistance 7=Complete [place] Therapy Quality Codes: 6 Independent with activity with or without an assistive device 5 Patient requires set up or clean up by helper. Patient completes activity by themselves 4 Supervision or touching assist (CGA). [facility] provide cues , steadying assist 3 The helper provides less than half the effort to complete the activity 2 The helper provides more than half the effort to complete the activity 1 Dependent. The helper does all the effort to complete an activity 7 Patient refused to complete or attempt activity 9 The patient did not perform the activity before the current illness or injury 88 Not attempted due to Medical conditions or safety concerns Transfers (B, C, W/C) (FIM): 1 Scootin (A of 2 to scoot up in bed) Rollin (Max assist to roll to L side, pt able to begin some but requiring physical assist) Roll Left to Right (QC): 1 Supine to/from Sit: 1 Sit to/from Stand: 1 Sit to Lying (QC): 1 Sit to Stand (QC): 1 Chair/Vnn-lt-Sxwle Xfer(QC): 1 Bed to/from Chair: 1 Car Transfer (QC): 1 Gait Training Does the Patient Walk?: No and Walking Goal NOT indicated Wheelchair Training Does the Pt Use a Wheelchair?: Yes Wheelchair (FIM): 4 Wheelchair Distance: 6=164-14 ft Distance: 400'x2 Wheelchair Level of Assist: 5 Wheel 50 ft with 2 turns (QC): 4 Wheel 150 ft (QC): 3 Type of Wheelchair: Motorized Mental Status/Objective Comprehension: 6 Expression: 6 Social Interaction: 6 Problem Solvin Memory: 4 ADL-Treatment Feedin Eating (QC): 2 Groomin Oral Hygiene (QC): 1 Bathin Shower/Bathe Self (QC): 1 Upper Extremity Dressin Upper Body Dressing (QC): 1 Lower Extremity Dressin Lower Body Dressing (QC): 1 On/Off Footwear (QC): 1 Toiletin Toileting Hygiene (QC): 1 Toilet/Commode Transfer: 1 Toilet Transfer (QC): 1 Assessment/Plan Assessment and Plan Assess & Plan/Chief Complaint Assessment: 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 Nesbitt at [facility] 12/07/18 Rib plating on the right Closed right scapular fracture Diabetes mellitus day-at-fddqjac requiring insulin now improved PEG tube status and likely will DC in the next several weeks Trach dependent s/p removal 01/26/19 Anemia Hypertension DVT prophylaxis with Lovenox Neurogenic bladder requiring Goodman catheter and urology recommends maintained to help heal decubitus ulcer in the meantime Decubitus ulcer s/p debridement but appears to need additional debridement prn if worsens OJ Psychosis resolved with Seroquel Depression placed on Celexa Ileus-resolved New onset fever 101.4 with abnormal urine in goodman bag placed sepsis order set in place with empiric broad spectrum abx initiated in meantime with sepsis now confirmed Pseudomonas bacteremia with UTI Plan: Debridement per Dr. García and Dr. Craven and it appears to need additional debridement in the future until healed Wound VAC after debridement if needed Maintained on Lovenox Consult urology is appreciated but no DC cath until coccyx ulcer is healed Rehabilitation to focus on transfers and lessen burden on caretakers shelter placement now that he now has Medicaid Removes neck brace while sleeping to aid in alleviation of discomfort causing behaviors and will await NSG recs for brace removal at his request now on soft neck brace Seroquel at night Celexa in the morning Advanced diet Supplement potassium Stop Diflucan since completed treatment DC PEG in next 6 weeks DC trach and doing well NHP once approved and now he has Medicaid so that will help dispo IV abx Sepsis bundle order set Abx broad spectrum Meropenem but DC Vanc but changed to Levaquin to complete treatment (1) Sepsis Status: Acute Qualifiers: Sepsis type: Pseudomonas Sepsis acute organ dysfunction status: without acute organ dysfunction Qualified Codes: A41.52 - Sepsis due to Pseudomonas (2) Spinal cord injury at C1-C4 level Status: Chronic Qualifiers: Encounter type: sequela Qualified Codes: S14.101S - Unspecified injury at C1 level of cervical spinal cord, sequela (3) Anemia Status: Chronic Qualifiers: Anemia type: unspecified type Qualified Codes: D64.9 - Anemia, unspecified (4) Anxiety Status: Chronic (5) Chronic pain Status: Chronic (6) Neurogenic bladder (7) HLD (hyperlipidemia) Status: Chronic (8) Tracheostomy dependent (9) DVT prophylaxis Status: Acute (10) Post-traumatic quadriplegia (11) Closed right scapular fracture (12) Right rib fracture (13) Right pulmonary contusion (14) Decubitus ulcer of coccygeal region, stage 4 (15) Shock due to spinal cord injury (16) Diabetes mellitus (17) Elevated blood pressure reading Status: Acute (18) Hospital discharge follow-up (19) Septic prepatellar bursitis of left knee (20) septic bursa (21) Paresthesias Status: Acute (22) Uncontrolled diabetes mellitus Status: Chronic (23) Illicit drug use Status: Acute (24) Cellulitis Status: Acute (25) Hyperglycemia Status: Acute (26) Sepsis Status: Acute (27) Hypertension Status: Chronic (28) Type 2 diabetes mellitus with hyperglycemia Status: Chronic (29) PEG (percutaneous endoscopic gastrostomy) status (30) UTI (urinary tract infection) Status: Acute Qualifiers: Indwelling urinary catheter type: indwelling urethral catheter Encounter type: initial encounter (31) Gram-negative bacteremia Status: Acute MARGUERITE GAN DO Feb 05, 2019 08:38
--- NOTE | 2019-02-05 09:00 | NUR ---
SOFT NECK COLLAR CHANGED TO MEDIUM FIRM, AND PATIENT APPEARS MORE COMFORTABLE WITH IT.
[2019-02-05] MEDS: POT PHOS/NA PHOS (K-PHOS NEUTRAL) PO SCH ×2 (09:20→21:10)
[2019-02-05] MEDS: MIDODRINE 10 MG (PROAMATINE) TAB PO SCH ×3 (09:21→21:10)
[2019-02-05] MEDS: FAMOTIDINE 20 MG (PEPCID) TABLET PO SCH ×2 (09:21→21:09)
[2019-02-05] MEDS: LORATADINE (CLARITIN) 10 MG TAB PO SCH (09:21)
[2019-02-05] MEDS: SENNA W/DOCUSATE (SENOKOT S) TABLET PO SCH ×2 (09:23→21:22)
[2019-02-05] MEDS: MICONAZOLE 2% POWDER (DESENEX AF) 90 GM TOP SCH ×2 (09:23→21:22)
[2019-02-05] MEDS: CATHETER FLUSH 10 ML SYR IV PRN (09:32)
--- NOTE | 2019-02-05 10:46 | Progress Note - Hospitalist ---
[facility] 02/05/19 1046: Progress Note Raffy is feeling better. No further incidents of fever, chills, diaphoresis since starting on Meropenem. Begin transition from IV to PO on Meropenem Working with social work and placement for a long-term solution. PAOLA CORDERO DO 02/05/19 2137: Supervisory-Addendum Brief Verification & Attestation Participated in pt care: history, MDM, physical Personally performed: exam, history, MDM, supervision of care Care discussed with: Medical Student Procedures: n/a Results interpretation: Verified all documentation Verification and Attestation of Medical Student E/M Service A medical student performed and documented this service in my presence. I reviewed and verified all information documented by the medical student and made modifications to such information, when appropriate. I personally performed the physical exam and medical decision making. Paola Cordero, Feb 05, 2019,21:37 [facility] Feb 05, 2019 10:46 PAOLA CORDERO DO Feb 05, 2019 21:37
--- NOTE | 2019-02-05 11:20 | Physical Therapy Daily Note ---
PT Daily Note-Current Subjective Patient in bed pre tx, agrees to PT, has no complaints of pain at rest. Will be co-treating with OT due to poor patient mobility, strength, endurance, balance, quadriplegia, and the need to coordinate UE and LE during activity. His is also here for family training. Appearance Patient in bed post tx with nurse call, on right side with pillow support for pressure relief. Mental Status Patient Orientation: Normal For Age soft collar Transfers Therapy Code Descriptions/Definitions Functional [place] Measure: 0=Not Assessed/NA 4=Minimal Assistance 1=Total Assistance 5=Supervision or Setup 2=Maximal Assistance 6=Modified [place] 3=Moderate Assistance 7=Complete [place] Therapy Quality Codes: 6 Independent with activity with or without an assistive device 5 Patient requires set up or clean up by helper. Patient completes activity by themselves 4 Supervision or touching assist (CGA). [place] provide cues , steadying assist 3 The helper provides less than half the effort to complete the activity 2 The helper provides more than half the effort to complete the activity 1 Dependent. The helper does all the effort to complete an activity 7 Patient refused to complete or attempt activity 9 The patient did not perform the activity before the current illness or injury 88 Not attempted due to Medical conditions or safety concerns Transfers (B, C, W/C) (FIM): 1 Scootin Rollin Roll Left to Right (QC): 1 Supine to/from Sit: 1 Sit to Lying (QC): 1 Chair/Vio-ho-Utxgs Xfer(QC): 1 Bed to/from Chair: 1 Car Transfer (QC): 1 Orly lift. educated on orly transfer and how to roll patient to change him and change sheets and get sling under him. PT and OT performed bed bath. Exercises BLE stretching/ROM in all planes Treatments transfers, bed mobility, rolling, family training with , LE stretching Assessment Current Status: Poor Progress no change in mobility, voiced confidence that she could perform a orly transfer and roll for dressing and orly sling. PT Short Term Goals Short Term Goals Time Frame: Jan 17, 2019 Transfers (B,C,W/C) (FIM): 1 Wheelchair (FIM): 4 (if he can get a power chair) Wheelchair Distance: 400'x2 Wheelchair Level of Assist: 4 PT Computer Aide Goals Halfway Goals PT Computer Aide Goals Time Frame: Jan 31, 2019 Transfers (B,C,W/C) (FIM): 1 Sit to Lying (QC): 1 Lying-Sitting on Side/Bed(QC): 1 Rollin (Max assist to roll to L side, pt able to begin some but requiring physical assist) Roll Left to Right (QC): 2 Chair/[id number]-Zxmih Xfer(QC): 1 Car Transfer (QC): 1 Wheelchair (FIM): 5 (if he can get a power chair) Distance: 150' Wheelchair Level of Assist: 5 Wheel 50 feet with 2 turns (QC: 4 PT Plan Problem List Problem List: Activity Tolerance, Functional Strength, Safety, Balance, Transfer, Bed Mobility, ROM Treatment/Plan Treatment Plan: Continue Plan of Care Treatment Plan: Bed Mobility, Concurrent Therapy, Education, Functional Activity Estella, Functional Strength, Group Therapy, Safety, Therapeutic Exercise, Transfers Treatment Duration: Jan 31, 2019 Frequency: At least 5 of 7 days/Wk (IRF) Estimated Hrs Per Day: 1.5 hours per day Patient and/or Family Agrees t: Yes Safety Risks/Education Patient Education: Transfer Techniques, Correct Positioning, Instructions to Caregiver, Safety Issues Teaching Recipient: Patient, Family Teaching Methods: Demonstration, Discussion Response to Teaching: Reinforcement Needed Time/GCodes Time In: 1000 Time Out: 1115 Total Billed Treatment Time: 75 Total Billed Treatment 1 visit EX 15' FA 60' Co-treated with OT for the whole 75'. ADRIENNE DURAN PT Feb 05, 2019 11:20
[2019-02-05] MEDS ORDERED: WATER (STERILE) FOR INJECTION 10 ML ONE (12:11)
[2019-02-05] MEDS ORDERED: ALTEPLASE 2 MG (CATHFLO) IV NR (12:15)
--- NOTE | 2019-02-05 12:19 | Occupational Ther Daily Note ---
OT Current Status-Daily Note Subjective No pain reported. Appearance Pt. in bed. Spouse in room. Agrees to work with therapy. Mental Status/Objective Patient Orientation: Person, Place Therapy Code Descriptions/Definitions Functional [place] Measure: 0=Not Assessed/NA 4=Minimal Assistance 1=Total Assistance 5=Supervision or Setup 2=Maximal Assistance 6=Modified [place] 3=Moderate Assistance 7=Complete [place] ADL-Treatment Therapist talks with social service manager about family training, as family is now taking pt. home again. Spouse in room and is encouraged to participate with OT/PT for education and practice before pt. returns home. Therapy Code Descriptions/Definitions Functional [place] Measure: 0=Not Assessed/NA 4=Minimal Assistance 1=Total Assistance 5=Supervision or Setup 2=Maximal Assistance 6=Modified [place] 3=Moderate Assistance 7=Complete [place] Therapy Quality Codes: 6 Independent with activity with or without an assistive device 5 Patient requires set up or clean up by helper. Patient completes activity by themselves 4 Supervision or touching assist (CGA). [place] provide cues , steadying assist 3 The helper provides less than half the effort to complete the activity 2 The helper provides more than half the effort to complete the activity 1 Dependent. The helper does all the effort to complete an activity 7 Patient refused to complete or attempt activity 9 The patient did not perform the activity before the current illness or injury 88 Not attempted due to Medical conditions or safety concerns Bathing (FIM): 1 Shower/Bathe Self (QC): 1 Upper Body (FIM): 1 Upper Body Dressing (QC): 1 Lower Body Dressing (FIM): 1 Lower Body Dressing (QC): 1 On/Off Footwear (QC): 1 Toileting (FIM): 1 Toileting Hygiene (QC): 1 Transfers (B, C, W/C) (FIM): 1 Other Treatment Spouse reports that pt's power chair, jareth lift, and hospital bed have been delivered at home. States that her and her sons have been practicing with eq uipment, so that they will know how to use it at home. Spouse does participate in rolling pt, donning clean depend, and placing jareth sling, but requires assist and cues for this. Declines assisting pt. with sponge bath or dressing, stating that she already knows how to do this and will need to go to work today. Therapy encourages pt. and spouse to ask any questions at all, and to make sure that they advocate for themselves later on, and to be sure and call physician with any questions and concerns. Both verbalize understanding. Educated them on pressure relied, symptoms related to issues with quadriplegia, support systems, and particular equipment needs. Encouraged spouse to practice UE ROM, but she states that she has already been educated on this at [place]. Spouse states that her only concerns are giving pt insulin injections. Spouse leaves after transfer training. OT facilitates UE PROM in all planes and PT facilitates LE PROM in all planes. Transferred pt. back to bed and performed sponge bath with david care. Pt. transferred to side position and made comfortable. All needs met. Education OT Patient Education: Correct positioning, Modified ADL techniques, Progress toward Goal/Update tx plan, Purpose of tx/functional activities, Reviewed precautions, Rehab process, Transfer techniques Teaching Recipient: Patient Teaching Methods: Demonstration, Discussion Response to Teaching: Verbalize Understanding, Return Demonstration OT Short Term Goals Short Term Goals Time Frame: Jan 24, 2019 Grooming(FIM): 2 (with AE) Upper Body Dressing(FIM): 2 Transfers (B,C,W/C) (FIM): 1 Additional Short Term Goals: 3-ImproveStrength/Estella 1=Demonstrate adherence to instructed precautions during ADL tasks. 2=Patient will verbalize/demonstrate understanding of assistive devices/modifications for ADL. 3=Patient will improve strength/tolerance for activity to enable patient to perform ADL's. OT Senior Care Goals Senior Care Goals Time Frame: Feb 14, 2019 Eating (FIM): 3 Eating (QC): 3 Groomin Oral Hygiene (QC): 3 Upper Body Dressing(FIM): 3 Additional Goals: 3-ImproveStrength/Estella 1=Demonstrate adherence to instructed precautions during ADL tasks. 2=Patient will verbalize/demonstrate understanding of assistive devices/modifications for ADL. 3=Patient will improve strength/tolerance for activity to enable patient to perform ADL's. OT Education/Plan Problem List/Assessment Assessment: Decreased Activ Tolerance, Decreased UE Strength, Dependent Transfers, Impaired Bed Mobility, Impaired Coordination, Impaired Funct Balance, Impaired I ADL's, Impaired Self-Care Skills, Restricted Funct UE ROM, Visual- Perceptual Deficit Discharge Recommendations Plan/Recommendations: Continue POC Therapy D/C Recommendations: 24 hr Supervision Treatment Plan/Plan of Care Treatment,Training & Education: Yes Patient would benefit from OT for education, treatment and training to promote independence in ADL's, mobility, safety and/or upper extremity function for ADL's. Plan of Care: ADL Retraining, Caregiver Training, Functional Mobility, Group Exercise/Act as Ind, UE Funct Exercise/Act, UE Neuromus Re-Ed/Coord, W/C Manag ement Training Treatment Duration: Feb 14, 2019 Frequency: At least 5 of 7 days/Wk (IRF) Estimated Hrs Per Day: 1.5 hours per day Agreement: Yes Rehab Potential: Guarded Time/GCodes Start Time: 10:00 Stop Time: 11:15 Total Time Billed (hr/min): 75 Billed Treatment Time 1, ADL x 45minutes, FA x 30minutes SHEYLA PETERSON OT Feb 05, 2019 12:19
--- NOTE | 2019-02-05 12:38 | Speech Therapy Daily Note ---
Speech Daily Progress Note Subjective Date Seen by Provider: Feb 05, 2019 Time Seen by Provider: 00:30 The patient was complaining of shoulder pain and wanted higher meds to help. He also states he would just have his bring in Ibuprofen 800 from home. This information was relayed to his nurse. Objective The patient was able to consume his lunch at 90% with total assistance. He had ordered cereal which he decided was making his shoulder hurt due to having to chew more. Assessment Assessment Current Status: Good Progress Treatment Plan Continue Plan of Care Communication Comprehension: 6 Expression: 6 Social Cognition Social Interaction: 6 Problem Solvin Memory: 4 Speech Short Term Goals Short Term Goals Short Term Goals 1) The patient will complete memory tasks related to his daily needs at 90% or greater with minimal cues. 2) The patient will complete problem solving tasks related to his daily needs at 90% or greater with minimal cues. 3) The patient will complete safety awareness tasks related to his daily needs at 90% or greater with minimal cues. 4) The patient will tolerate least restrictive diet without s/s of aspiration with 90% or greater. 5) The patient will demonstrate compliance of utilization of compensatory strategies as trained at 90% or greater with minimal cues. Speech Communications Agent Goals Communications Agent Goals The patient will improve his cognitive status for a safe return home. The patient will maintain adequate nutrition/hydration via safe effective swallow function and/or PEG tube. Speech-Plan Patient/Family Goals Patient/Family Goals: The patient states he is going home tomorrow, however this has not been clarified at this time. Treatment Plan Speech Therapy Treatment Plan: Continue Plan of Care The patient has made good progress with oral intake. Treatment Duration: Feb 09, 2019 Frequency: 5 times per week Estimated Hrs Per Day: .5 hour per day Rehab Potential: Guarded Barriers to Learning: Patient is dependent on total assistance due to his paralysis. Pt/Family Agrees to Plan: Yes Safety Risks/Education Teaching Recipient: Patient Teaching Methods: Discussion Response to Teaching: Verbalize Understanding Education Topics Provided: Safety with his collar, which he wanted removed at meal time. Time Speech Therapy Time In: 11:45 Speech Therapy Time Out: 12:15 Total Billed Time: 30 Billed Treatment Time 1, BRANDIE Mcneill Feb 05, 2019 12:38
--- NOTE | 2019-02-05 13:00 | NUR ---
DAY SURG NURSE PUT CATH FLOW THROUGH MORE PICC LUMENS AND SHE STATES BOTH FLUSH WELL AND GOOD BLOOD RETURN OUT OF BOTH OF THEM NOW.
[2019-02-05] MEDS: CATHETER FLUSH 10 ML SYR IV SCH ×2 (13:49→22:22)
[2019-02-05] MEDS: ENOXAPARIN 40 MG/0.4 ML (LOVENOX) SYR SC SCH (13:55)
--- NOTE | 2019-02-05 14:00 | NUR ---
MIGUEL, WOUND NURSE, HERE TO ASSESS SACRAL DECUB AND DID DRESSING CHANGE. SKIN AROUND ULCER LESS RED AND HEALING. PATIENT AND VERBALIZING FEELINGS READY "TO TRY IT AT HOME TOMORROW".
[2019-02-05 15:39] VITALS: BP 125/80
[2019-02-05] MEDS: LEVOFLOXACIN 750 MG TAB (LEVAQUIN) PO SCH (15:43)
[2019-02-05] MEDS: DAKIN'S 1/4 STRENGTH (0.125%) 473 ML BTL TOP SCH (15:45)
[2019-02-05] MEDS: ALPRAZolam 0.5 MG (XANAX) TAB PEG PRN (18:01)
--- NOTE | 2019-02-05 19:10 | NUR ---
bedside report received from ASAEL BONILLA, assume care of pt
[2019-02-05] MEDS ORDERED: POTA10TA6 PO (20:37)
[2019-02-05] MEDS ORDERED: MONT10TA24 PO (20:37)
[2019-02-05] MEDS ORDERED: ENOX40DI8 SC (20:37)
[2019-02-05] MEDS ORDERED: SENN-20 PO (20:37)
[2019-02-05] MEDS ORDERED: [UNRECOGNIZED DRUG - CODE] MC (20:37)
[2019-02-05] MEDS ORDERED: BACL10TA PO (20:37)
[2019-02-05] MEDS ORDERED: INSU100I29 SQ (20:37)
[2019-02-05] MEDS ORDERED: MICO90PO TOP (20:37)
[2019-02-05] MEDS ORDERED: CITA10TA7 PO (20:37)
[2019-02-05] MEDS ORDERED: MIDO10TA PO (20:37)
[2019-02-05] MEDS ORDERED: SODI473S7 TOP (20:37)
[2019-02-05] MEDS ORDERED: MELA3TAB PO (20:37)
[2019-02-05] MEDS ORDERED: IPRA3AMP31 INH (20:37)
[2019-02-05] MEDS ORDERED: TRAM50TA2 PO (20:37)
[2019-02-05] MEDS ORDERED: LEVO750T39 PO (20:37)
[2019-02-05] MEDS ORDERED: ALPR0.5T7 PO (20:37)
[2019-02-05] MEDS ORDERED: QUET25TA73 PO (20:37)
[2019-02-05] MEDS ORDERED: FAMO20TA5 PO (20:37)
[2019-02-05] MEDS ORDERED: LORA10TA7 PO (20:37)
[2019-02-05] MEDS ORDERED: PHOS250T5 PO (20:37)
--- NOTE | 2019-02-05 21:00 | NUR ---
assessments & interventions completed, see assessments & interventions, refused Hermilo, fsbs 130 no ss insulin req, requested Lioresal 5mg given
[2019-02-05] MEDS: MELATONIN 3 MG TABLET PO SCH (21:09)
[2019-02-05] MEDS: ALPRAZolam 0.5 MG (XANAX) TAB PO PRN (21:10)
[2019-02-05] MEDS: QUEtiapine 25 MG (SEROquel) TAB IMMEDIATE RELEASE PO SCH (21:10)
[2019-02-05] MEDS: MONTELUKAST 10 MG (SINGULAIR) TAB PO SCH (21:12)
--- NOTE | 2019-02-05 22:25 | NUR ---
Late note from 9am: HAND CLOTH EXAMINER met with patient and spouse to review discharge planning. Patient and spouse informed HAND CLOTH EXAMINER of plan for patient to discharge home tomorrow and that all necessary arrangements have been made. HAND CLOTH EXAMINER is unaware of discharge planning progress that occurred within the last week, as HAND CLOTH EXAMINER was out of the office. HAND CLOTH EXAMINER then met with therapy and Dr. Cordero to inquire about discharge for tomorrow. Both report that a firm discharge plan had not been established, but are in agreement with tomorrow as HAND CLOTH EXAMINER was able to inform them of home ramp installation and delivery of all DME from [employer] (please see previous notes). Spouse reports family training has occurred once; however, she feels confident in her abilities to provide necessary care. Therapy would like to perform training and demonstration on Orly lift procedures, spouse agrees and training will be performed at 10 a.m. Spouse does request a backup plan if home is unmanageable. HAND CLOTH EXAMINER informed her of denial from medical [facility]; however, HAND CLOTH EXAMINER is awaiting response from [facility] and [facility]. HAND CLOTH EXAMINER reached out to both facilities to inquire about the status of acceptance. 200p-HAND CLOTH EXAMINER reached out to [facility] at [facility] to inquire about daily RN services for coccyx dressing changes. She states they should be able to accommodate this, but she will need to review with her mail delivery supervisor. 300p-Ms. W send updated clinical information to [facility] as they are due tomorrow. HAND CLOTH EXAMINER requested contact information for patients [facility] casework specialist in order for HAND CLOTH EXAMINER to arrange home assessment for HCBS services. 545p-HAND CLOTH EXAMINER faxed order for adult briefs to [facility] and requested delivery to patients home LISA. Respiratory Care Practitioner at [facility] states prior authorization from [facility] can take 24-48 hours. HAND CLOTH EXAMINER also sent order for sri pads to [facility].HAND CLOTH EXAMINER has reached out to [facility] ambulance to inquire about nonemergent transport for discharge home, as these are not priority and would like 24 hours. As several of these small barriers for discharge tomorrow have occurred, HAND CLOTH EXAMINER has recommended patient's discharge be postponed until Tuesday, 821. This additional day will also allow feedback from prison facilities, as requested by patient's spouse. Patient spouse feels more comfortable with having all components in place prior to discharge. Patient spouse are both agreeable to discharge on 02/07.
[2019-02-06] MEDS: NYSTATIN ORAL SUSP 5 ML UDC PO SCH ×4 (00:20→17:11)
--- NOTE | 2019-02-06 00:30 | NUR ---
c/o lt shoulder pain level 7/10 on numeric scale, Ultram 50mg po given
--- NOTE | 2019-02-06 01:07 | NUR ---
resting quietly in bed, pain level 0/10 on flacc scale
[2019-02-06 05:39] VITALS: BP 98/54
[2019-02-06] MEDS: CATHETER FLUSH 10 ML SYR IV SCH ×3 (05:45→22:14)
[2019-02-06 05:53] LABS: BASOPHILS % (AUTO) 0 % (0-10); EOSINOPHILS # (AUTO) 0.1 10^3/uL (0.0-0.3); EOSINOPHILS % (AUTO) 1 % (0-10); HEMATOCRIT 31 % (40-54); HEMOGLOBIN 9.9 G/DL (13.3-17.7); LYMPHOCYTES # (AUTO) 3.4 X 10^3 (1.0-4.0); LYMPHOCYTES % (AUTO) 29 % (12-44); MEAN CORPUSCULAR HEMOGLOBIN 29 PG (25-34); MEAN CORPUSCULAR HGB CONC 32 G/DL (32-36); MEAN CORPUSCULAR VOLUME 91 FL (80-99); MEAN PLATELET VOLUME 7.9 FL (7.4-10.4); MONOCYTES # (AUTO) 1.6 X 10^3 (0.0-1.0); MONOCYTES % (AUTO) 14 % (0-12); NEUTROPHILS # (AUTO) 6.5 X 10^3 (1.8-7.8); NEUTROPHILS % (AUTO) 56 % (42-75); PLATELET COUNT 317 10^3/uL (130-400); RED CELL DISTRIBUTION WIDTH 13.6 % (10.0-14.5); WHITE BLOOD COUNT 11.7 10^3/uL (4.3-11.0)
[2019-02-06] MEDS: guaiFENesin SYRUP 100 MG/5 ML 10 ML (ROBITUSSIN SF) PEG SCH ×3 (05:56→22:13)
[2019-02-06] MEDS: ALPRAZolam 0.5 MG (XANAX) TAB PEG PRN ×2 (05:56→15:13)
--- NOTE | 2019-02-06 05:56 | NUR ---
requesting Xanax 0.5mg po given
[2019-02-06] MEDS: KCL 10 MEQ TAB (MICRO K) PO SCH (05:57)
[2019-02-06] MEDS: inSUlin ASPART (NovoLOG) 1 UNIT/0.01 ML (CHARGE PER UNIT) SC SCH ×4 (06:01→20:41)
[2019-02-06 06:10] LABS: ALANINE AMINOTRANSFERASE 20 U/L (0-55); ALKALINE PHOSPHATASE 110 U/L (40-136); BILIRUBIN,TOTAL 0.3 MG/DL (0.1-1.0); BUN/CREATININE RATIO 14; CALCIUM 9.4 MG/DL (8.5-10.1); CARBON DIOXIDE 24 MMOL/L (21-32); CHLORIDE 100 MMOL/L (98-107); CREATININE SERUM 0.66 MG/DL (0.60-1.30); GFR ESTIMATED > 60; GLUCOSE 81 MG/DL (70-105); SODIUM 134 MMOL/L (135-145); TOTAL PROTEIN 7.4 GM/DL (6.4-8.2)
--- NOTE | 2019-02-06 07:13 | NUR ---
bedside report given to ASAEL BONILLA
[2019-02-06] MEDS: aCETylcysteine 20% (MUCOMYST) 30ML SOLN VIAL INH SCH ×2 (08:02→19:58)
[2019-02-06] MEDS: RT-ALBUTEROL/IPRATROPIUM 3 ML (DUONEB) VIAL INH SCH ×2 (08:02→19:58)
--- NOTE | 2019-02-06 09:01 | PM&R Progress Note ---
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 He was unable to maintain his airway. He was intubated at the scene. He was assessed in the ER by Dr. Vaughan trauma surgeon found to have significant hypotension requiring aggressive IV fluids and pressor therapy but then was assessed that he was likely an spinal cord shock and multiple right rib fractures with flail chest requiring transfer to [facility] trauma surgery which resulted in multiple procedures including tracheostomy due to failing weaning protocol on ventilator, PEG tube placement, spine MRIs confirming C3-C7 spinal cord injury complete with plating of ribs 510 on the right side and right sided chest tube. He was found to have drug screen positive for marijuana and methamphetamine. Neurosurgery was consulted perform decompressive laminectomy on C3-C7 with C4-C5 autograft bone screws and rods. He was diagnosed with Haemophilus influenza while intubated and that treatment was completed. He did have rhabdomyolysis from his injuries requiring aggressive IV fluids but they all resolved. Hyperglycemia was diagnosed and he was started on insulin and elevated liver enzymes have improved since admission and hepatitis viral panel along with HIV were negative. He did receive 2 units of packed red blood cells hospitalized. Currently patient is requiring wound care consult by Dr. Craven and general surgery consultation by Dr. García because additional debridement of the sacral decubitus ulcer will be required. He will remain with the c-collar in place until seen Dr. Nesbitt on 01/30/19. Hemoglobin today is 10.1. Dr. Arcos's been consulted for pulmonary issues which she is having increased secretions today in addition urology will be consulted for Goodman catheter maintenance for neurogenic bladder. I did speak with Dr. Arcos who will panculture the patient and change breathing treatments to clear secretions. Patient remains total care with quadriplegia. Subjective/Events-last exam Discharge planned for tomorrow. All medical supplies will be delivered today. Will inquire with Dr. García when peg tube can be removed. Late Feb is the answer and he will follow up on that White count 11.7. Changed to Levaquin oral antibiotics for an additional 5 days after he is discharged tomorrow. Picc line is now working, will remain in for the next week. [facility] will come and talk to him today in case he is overwhelmed at home which I would suggest to go to the snf regardless but he is insisting in going home. Ultram not really helping his pain but with the prior history of elicit drug abuse, meth use, I am really uncomfortable with doing anything more than that so I will instruct him to continue taking the medication for just a little bit of help. Conferred with RN Reviewed therapy notes Review of Systems Neurological: Weakness, Numbness, Incoordination Objective Exam Vital Signs Vital Signs Date Time Temp Pulse Resp B/P (MAP) Pulse Ox O2 Delivery O2 Flow Rate FiO2 02/06/19 19:58 96 Room Air 02/06/19 17:09 98.9 66 18 116/74 (88) Capillary Refill : Less Than 3 SecondsLess Than 3 Seconds General Appearance: No Apparent Distress, WD/WN, Chronically ill, Other (sleepy) HEENT: PERRL/EOMI, Pharynx Normal Neck: Non Tender, Supple, Other (cervical collar in place) Respiratory: Chest Non Tender, Lungs Clear, Normal Breath Sounds, No Accessory Muscle Use, No Respiratory Distress Cardiovascular: Regular Rate, Rhythm, No Edema Gastrointestinal: Normal Bowel Sounds, No Organomegaly, No Pulsatile Mass, Non Tender, Soft, Other (PEG in place) Back: Normal Inspection, No CVA Tenderness, No Vertebral Tenderness Extremity: Normal Inspection Neurologic/Psychiatric: Alert, Oriented x3, Normal Mood/Affect, senior software developer II-XII Norm as Tested, Motor Weakness (chest and below neurological deficit) Skin: Normal Color, Warm/Dry, Other (decubitus ulcer coccyx, eschar in wound no surrounding erythema) Lymphatic: No Adenopathy Results/Procedures Lab Laboratory Tests 02/06/19 05:33 Patient resulted labs reviewed. FIM Transfers Therapy Code Descriptions/Definitions Functional [place] Measure: 0=Not Assessed/NA 4=Minimal Assistance 1=Total Assistance 5=Supervision or Setup 2=Maximal Assistance 6=Modified [place] 3=Moderate Assistance 7=Complete [place] Therapy Quality Codes: 6 Independent with activity with or without an assistive device 5 Patient requires set up or clean up by helper. Patient completes activity by themselves 4 Supervision or touching assist (CGA). [place] provide cues , steadying assist 3 The helper provides less than half the effort to complete the activity 2 The helper provides more than half the effort to complete the activity 1 Dependent. The helper does all the effort to complete an activity 7 Patient refused to complete or attempt activity 9 The patient did not perform the activity before the current illness or injury 88 Not attempted due to Medical conditions or safety concerns Transfers (B, C, W/C) (FIM): 1 Scootin Rollin Roll Left to Right (QC): 1 Supine to/from Sit: 1 Sit to/from Stand: 1 Sit to Lying (QC): 1 Sit to Stand (QC): 1 Chair/Uxu-oh-Yseuu Xfer(QC): 1 Bed to/from Chair: 1 Car Transfer (QC): 1 Gait Training Does the Patient Walk?: No and Walking Goal NOT indicated Wheelchair Training Does the Pt Use a Wheelchair?: Yes Wheelchair (FIM): 4 Wheelchair Distance: 3=196-50 ft Distance: 400'x2 Wheelchair Level of Assist: 5 Wheel 50 ft with 2 turns (QC): 4 Wheel 150 ft (QC): 3 Type of Wheelchair: Motorized Mental Status/Objective Comprehension: 6 Expression: 6 Social Interaction: 6 Problem Solvin Memory: 4 ADL-Treatment Feedin Eating (QC): 2 Groomin Oral Hygiene (QC): 1 Bathin Shower/Bathe Self (QC): 1 Upper Extremity Dressin Upper Body Dressing (QC): 1 Lower Extremity Dressin Lower Body Dressing (QC): 1 On/Off Footwear (QC): 1 Toiletin Toileting Hygiene (QC): 1 Toilet/Commode Transfer: 1 Toilet Transfer (QC): 1 Assessment/Plan Assessment and Plan Assess & Plan/Chief Complaint Assessment: 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 García and Dr. Craven and it appears to need additional debri zoe in the future until healed Wound VAC after debridement if needed Maintained on Lovenox Consult urology is appreciated but no DC cath until coccyx ulcer is healed Rehabilitation to focus on transfers and lessen burden on caretakers snf placement now that he now has Medicaid Removes neck brace while sleeping to aid in alleviation of discomfort causing behaviors and will await NSG recs for brace removal at his request now on soft neck brace Seroquel at night Celexa in the morning Advanced diet Supplement potassium Stop Diflucan since completed treatment DC PEG in next 6 weeks DC trach and doing well NHP once approved and now he has Medicaid so that will help dispo IV abx Sepsis bundle order set Abx broad spectrum Meropenem but DC Vanc but changed to Levaquin to complete treatment DC home tomorrow but [facility] as back up arranged (1) Sepsis Status: Acute Qualifiers: Sepsis type: Pseudomonas Sepsis acute organ dysfunction status: without acute organ dysfunction Qualified Codes: A41.52 - Sepsis due to Pseudomonas (2) Spinal cord injury at C1-C4 level Status: Chronic Qualifiers: Encounter type: sequela Qualified Codes: S14.101S - Unspecified injury at C1 level of cervical spinal cord, sequela (3) Anemia Status: Chronic Qualifiers: Anemia type: unspecified type Qualified Codes: D64.9 - Anemia, unspecified (4) Anxiety Status: Chronic (5) Chronic pain Status: Chronic (6) Neurogenic bladder (7) HLD (hyperlipidemia) Status: Chronic (8) Tracheostomy dependent (9) DVT prophylaxis Status: Acute (10) Post-traumatic quadriplegia (11) Closed right scapular fracture (12) Right rib fracture (13) Right pulmonary contusion (14) Decubitus ulcer of coccygeal region, stage 4 (15) Shock due to spinal cord injury (16) Diabetes mellitus (17) Elevated blood pressure reading Status: Acute (18) Hospital discharge follow-up (19) Septic prepatellar bursitis of left knee (20) septic bursa (21) Paresthesias Status: Acute (22) Uncontrolled diabetes mellitus Status: Chronic (23) Illicit drug use Status: Acute (24) Cellulitis Status: Acute (25) Hyperglycemia Status: Acute (26) Sepsis Status: Acute (27) Hypertension Status: Chronic (28) Type 2 diabetes mellitus with hyperglycemia Status: Chronic (29) PEG (percutaneous endoscopic gastrostomy) status (30) UTI (urinary tract infection) Status: Acute Qualifiers: Indwelling urinary catheter type: indwelling urethral catheter Encounter type: initial encounter (31) Gram-negative bacteremia Status: Acute MARGUERITE GAN DO Feb 06, 2019 09:01
--- NOTE | 2019-02-06 09:39 | Progress Note - Urology ---
Progress Note-Urology Progress Notes/Assess & Plan Progress/Assessment & Plan PATIENT TOLD ME HE IS GOING HOME TOMORROW WITHOUT PERRY. MY RECOMMENDATION IS TO SEE FIRST WHAT HE IS GOING TO DO VOIDING OFF PERRY PRIOR TO DISCHARGE AND MANAGE ACCORDINGLY I.E VOIDING, EMPTYING, LEAKING, BOTH. RUBIO NOVA MD Feb 06, 2019 09:39
[2019-02-06] MEDS: FAMOTIDINE 20 MG (PEPCID) TABLET PO SCH ×2 (09:50→20:25)
[2019-02-06] MEDS: MIDODRINE 10 MG (PROAMATINE) TAB PO SCH ×3 (09:50→20:25)
[2019-02-06] MEDS: POT PHOS/NA PHOS (K-PHOS NEUTRAL) PO SCH ×2 (09:50→20:24)
[2019-02-06] MEDS: LORATADINE (CLARITIN) 10 MG TAB PO SCH (09:50)
[2019-02-06] MEDS: SENNA W/DOCUSATE (SENOKOT S) TABLET PO SCH ×2 (09:53→20:38)
[2019-02-06] MEDS: MICONAZOLE 2% POWDER (DESENEX AF) 90 GM TOP SCH ×2 (09:54→20:38)
--- NOTE | 2019-02-06 09:58 | Progress Note - Hospitalist ---
[facility] 02/06/19 0958: Progress Note Raffy is nervous but excited to be able to go home. Plan is for d/c tomorrow pending some social work specialist/dme needs needing more time [facility] evaluating at 10am for backup PAOLA CORDERO DO 02/06/192038: Supervisory-Addendum Brief Verification & Attestation Participated in pt care: history, MDM, physical Personally performed: exam, history, MDM, supervision of care Care discussed with: Medical Student Procedures: n/a Results interpretation: Verified all documentation Verification and Attestation of Medical Student E/M Service A medical student performed and documented this service in my presence. I reviewed and verified all information documented by the medical student and made modifications to such information, when appropriate. I personally performed the physical exam and medical decision making. Paola Cordero, Feb 06, 2019,20:39 [facility] Feb 06, 2019 09:58 PAOLA CORDERO DO Feb 06, 2019 20:39
--- NOTE | 2019-02-06 11:00 | Physical Therapy Daily Note ---
PT Daily Note-Current Subjective Patient in bed pre tx, agrees to PT but doesn't want to get out of bed because he doesn't feel well. Will be co-treating with OT due to poor patient mobility, strength,endurance, ROM, the need to coordinate UE and LE during activity. Appearance Patient in bed post tx with nurse call, phone, tray, on left side with pillow support and podus boot on. Mental Status Patient Orientation: Normal For Age Attachments: Zamarripa Catheter cervical collar Transfers Therapy Code Descriptions/Definitions Functional [place] Measure: 0=Not Assessed/NA 4=Minimal Assistance 1=Total Assistance 5=Supervision or Setup 2=Maximal Assistance 6=Modified [place] 3=Moderate Assistance 7=Complete [place] Therapy Quality Codes: 6 Independent with activity with or without an assistive device 5 Patient requires set up or clean up by helper. Patient completes activity by themselves 4 Supervision or touching assist (CGA). [place] provide cues , steadying assist 3 The helper provides less than half the effort to complete the activity 2 The helper provides more than half the effort to complete the activity 1 Dependent. The helper does all the effort to complete an activity 7 Patient refused to complete or attempt activity 9 The patient did not perform the activity before the current illness or injury 88 Not attempted due to Medical conditions or safety concerns Transfers (B, C, W/C) (FIM): 1 Scootin Rollin Roll Left to Right (QC): 1 Patient had to roll several times to each side for cleaning and bathing. Patient was bathed in bed. Exercises PROM to BLE in all planes, special attention to dorsiflexion stretching. Treatments PROM, bed mobility and rolling, bathing Assessment Current Status: Poor Progress no change in mobility, patient did not want to get out of bed this morning. OT worked on bathing and UE ROM and rolling. PT Short Term Goals Short Term Goals Time Frame: Jan 17, 2019 Transfers (B,C,W/C) (FIM): 1 Wheelchair (FIM): 4 (if he can get a power chair) Wheelchair Distance: 400'x2 Wheelchair Level of Assist: 4 PT Electromechanical Inspector Goals Electromechanical Inspector Goals PT Retirement Goals Time Frame: Jan 31, 2019 Transfers (B,C,W/C) (FIM): 1 Sit to Lying (QC): 1 Lying-Sitting on Side/Bed(QC): 1 Rollin Roll Left to Right (QC): 2 Chair/Fiq-xf-Miyxa Xfer(QC): 1 Car Transfer (QC): 1 Wheelchair (FIM): 5 (if he can get a power chair) Distance: 150' Wheelchair Level of Assist: 5 Wheel 50 feet with 2 turns (QC: 4 PT Plan Problem List Problem List: Activity Tolerance, Functional Strength, Safety, Balance, Tr ansfer, Bed Mobility, ROM Treatment/Plan Treatment Plan: Continue Plan of Care Treatment Plan: Bed Mobility, Concurrent Therapy, Education, Functional Activity Estella, Functional Strength, Group Therapy, Safety, Therapeutic Exercise, Transfers Treatment Duration: Jan 31, 2019 Frequency: At least 5 of 7 days/Wk (IRF) Estimated Hrs Per Day: 1.5 hours per day Patient and/or Family Agrees t: Yes Safety Risks/Education Patient Education: Reviewed Precautions, Correct Positioning, Safety Issues Teaching Recipient: Patient Teaching Methods: Demonstration, Discussion Response to Teaching: Reinforcement Needed Time/GCodes Time In: 1000 Time Out: 1100 Total Billed Treatment Time: 60 Total Billed Treatment 1 visit EX 30' FA 30' co-treated for 60 min ADRIENNE DURAN PT Feb 06, 2019 11:00
--- NOTE | 2019-02-06 11:30 | NUR ---
DR. ALAMO HERE TO ASSESS SACRAL WOUND. INFORMED THAT PEG WAS INSERTED AROUND DECEMBER 12 AND HE STATES TO PLAN ON IT BEING DC'D AT THE END OF . DR. GAN INFORMED.
[2019-02-06] MEDS: DAKIN'S 1/4 STRENGTH (0.125%) 473 ML BTL TOP SCH (11:57)
[2019-02-06] MEDS: LEVOFLOXACIN 750 MG TAB (LEVAQUIN) PO SCH (11:57)
--- NOTE | 2019-02-06 12:03 | Progress Note - Surgery ---
Subjective Time Seen by a Provider: 11:51 Subjective/Events-last exam Pt seen and examined, no new complaints. Review of Systems General: No Chills, No Night Sweats Pulmonary: No Dyspnea, No Cough Cardiovascular: No: Chest Pain, Palpitations Objective Exam Vital Signs Date Time Temp Pulse Resp B/P (MAP) Pulse Ox O2 Delivery O2 Flow Rate FiO2 02/06/19 05:39 98.3 68 20 98/54 (69) 95 Room Air 02/05/19 21:00 98 Room Air 02/05/19 20:03 Room Air 02/05/19 18:00 Room Air 02/05/19 15:39 99.6 65 14 125/80 (95) 98 Room Air I & O 02/06/19 07:00 Intake Total 1930 ml Output Total 3100 ml Balance -1170 ml Capillary Refill : Less Than 3 SecondsLess Than 3 Seconds General Appearance: No Apparent Distress, Chronically ill, Other HEENT: PERRL/EOMI, Pharynx Normal Neck: Other (soft cervical collar in place) Respiratory: Chest Non Tender, Lungs Clear, Normal Breath Sounds, No Accessory Muscle Use, No Respiratory Distress Cardiovascular: Regular Rate, Rhythm, No Edema Gastrointestinal: soft, distended (mildly distended) Neurologic/Psychiatric: Motor Weakness (chest and below neurological deficit) Skin: Normal Color, Warm/Dry, Other (decubitus ulcer coccyx, base has some necrotic tissue, edges are clean, minimal surrounding erythema is probably pressure related and not cellulitis) Results Lab Laboratory Tests 02/05/19 15:38: Glucometer 138H 02/05/19 20:06: Glucometer 130H 02/06/19 05:06: Glucometer 95 02/06/19 05:33: White Blood Count 11.7H, Red Blood Count 3.37L, Hemoglobin 9.9L, Hematocrit 31L, Mean Corpuscular Volume 91, Mean Corpuscular Hemoglobin 29, Mean Corpuscular Hemoglobin Concent 32, Red Cell Distribution Width 13.6, Platelet Count 317, Mean Platelet Volume 7.9, Neutrophils (%) (Auto) 56, Lymphocytes (%) (Auto) 29, Monocytes (%) (Auto) 14H, Eosinophils (%) (Auto) 1, Basophils (%) (Auto) 0, Neutrophils # (Auto) 6.5, Lymphocytes # (Auto) 3.4, Monocytes # (Auto) 1.6H, Eosinophils # (Auto) 0.1, Basophils # (Auto) 0.0, Sodium Level 134L, Potassium Level 4.0, Chloride Level 100, Carbon Dioxide Level 24, Anion Gap 10, Blood Urea Nitrogen 9, Creatinine 0.66, Estimat Glomerular Filtration Rate > 60, BUN/Creatinine Ratio 14, Glucose Level 81, Calcium Level 9.4, Corrected Calcium 10.2H, Total Bilirubin 0.3, Aspartate Amino Transf (AST/SGOT) 18, Alanine Aminotransferase (ALT/SGPT) 20, Alkaline Phosphatase 110, Total Protein 7.4, Albumin 3.0L, Smear Scan 02/06/19 10:55: Glucometer 129H Microbiology 01/31/19 Blood Culture - Preliminary, Resulted Probable Pseudomonas 02/01/19 Gram Stain - Final, Complete 02/01/19 Sputum Culture - Final, Complete Usual upper respiratory aaron 02/01/19 Urine Culture - Final, Complete Pseudomonas aeruginosa Assessment/Plan Assessment/Plan Assessment/Plan S/P 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 Decubitus ulcer coccyx Bacteremia probably secondary to UTI PEG tube Continue Dakins solution and good wound care. Can have PEG tube removed when it has been 12 weeks since it was placed. Clinical Quality Measures DVT/VTE Risk/Contraindication: Risk Factor Score Per Nursin RFS Level Per Nursing on Admit: 4+=Very High EDMUND ALAMO DO Feb 06, 2019 12:03
--- NOTE | 2019-02-06 12:45 | NUR ---
DENTAL HYGIENE ADMINISTRATIVE ASSISTANT received notification from [facility] stating they do not feel they can manage patient's wound. Following onsite evaluation by [facility] team, they have accepted patient for placement. Patient and family want to continue with a home discharge plan and will plan to admit to [facility] if unmanageable at home.
[2019-02-06] MEDS: BACLOFEN 10 MG (LIORESAL) TAB PO PRN ×2 (13:09→20:26)
[2019-02-06] MEDS: ENOXAPARIN 40 MG/0.4 ML (LOVENOX) SYR SC SCH (13:12)
--- NOTE | 2019-02-06 13:15 | D/C HH Face to Face Order ---
D/C Face to Face Orders Reconcile Patient Problems Problems Reviewed?: Yes Instructions for Patient [facility], Patient Instructions/FollowUp: [facility] 1 week Physician to follow Patient: [facility] Discharge Diet for Home: Soft Diet Patient Problems: Quadriplegia Decubitus ulcer s/p trach PEG status not used Depression HTN DM Goals for Patient: Regain independent ADL's Patient Data-Allergies,Ht & Wt Patient Allergies: Coded Allergies: No Known Drug Allergies (Unverified , 08/25/10) Height (Feet): 5 Height (Inches): 3.00 Weight (Pounds): 142 Weight (Ounces): 11.2 Home Health Need/Face to Face Date of Face to Face: Feb 06, 2019 Clinical Findings: Muscle weakness, Non or partial weight bearing, Other-list in note (quad) I have seen Pt [id number]: Yes Discharged To: Home Diagnosis/Conditions: Quadriplegia Decubitus ulcer s/p trach PEG status not used Depression HTN DM Patient is Homebound due to: Non-weight bearing (quad) Homebound Status Due to the above stated illness, injury or surgical procedure (medical condition or diagnosis) and associated clinical findings, the patient is homebound because of his/her inability to leave home except with aid of a supportive device and/or person AND leaving the home requires a considerable and taxing effort or is medically contraindicated. Pt req the following assistanc: Wheelchair Home Health Nursing Orders Home Health Services Order: Nursing Services (decubitus ulcer dressing changes), Meeting/Event Planner-Evaluate & Treat, Physical Therapy-Evaluate & Treat Home Health Infusion Therapy Line Start Date: Jan 12, 2019 Certify Stmt I certify that this patient is under my care and that I, a nurse practitioner or a physician; a hair assistant working with me, had a face to face encounter that - meets the physician face to face encounter requirements with this patient as dated. MARGUERITE GAN DO Feb 06, 2019 13:15
--- NOTE | 2019-02-06 13:17 | Physical Therapy Daily Note ---
PT Daily Note-Current Subjective Patient in bed pre tx, agrees to PT, has no complaints of pain at rest. Patient is supposed to leave this facility today. Appearance Patient in bed post tx with nurse call, phone, tray, family and nurse in the room, laying on left side with pillow support and podus boot on. Mental Status Patient Orientation: Normal For Age Attachments: Zamarripa Catheter cervical collar Transfers Therapy Code Descriptions/Definitions Functional [place] Measure: 0=Not Assessed/NA 4=Minimal Assistance 1=Total Assistance 5=Supervision or Setup 2=Maximal Assistance 6=Modified [place] 3=Moderate Assistance 7=Complete [place] Therapy Quality Codes: 6 Independent with activity with or without an assistive device 5 Patient requires set up or clean up by helper. Patient completes activity by themselves 4 Supervision or touching assist (CGA). [place] provide cues , steadying assist 3 The helper provides less than half the effort to complete the activity 2 The helper provides more than half the effort to complete the activity 1 Dependent. The helper does all the effort to complete an activity 7 Patient refused to complete or attempt activity 9 The patient did not perform the activity before the current illness or injury 88 Not attempted due to Medical conditions or safety concerns Exercises BLE PROM all planes Assessment Current Status: Poor Progress patient has increased muscle spasms, nurse states she has med for that when she comes into the room. PT Short Term Goals Short Term Goals Time Frame: Jan 17, 2019 Transfers (B,C,W/C) (FIM): 1 Wheelchair (FIM): 4 (if he can get a power chair) Wheelchair Distance: 400'x2 Wheelchair Level of Assist: 4 PT [facility] Goals [facility] Goals PT Senior C Software Developer Goals Time Frame: Jan 31, 2019 Transfers (B,C,W/C) (FIM): 1 Sit to Lying (QC): 1 Lying-Sitting on Side/Bed(QC): 1 Rollin Roll Left to Right (QC): 2 Chair/Fbd-uu-Qxydb Xfer(QC): 1 Car Transfer (QC): 1 Wheelchair (FIM): 5 (if he can get a power chair) Distance: 150' Wheelchair Level of Assist: 5 Wheel 50 feet with 2 turns (QC: 4 PT Plan Problem List Problem List: Activity Tolerance, Functional Strength, Safety, Balance, Transfer, Bed Mobility, ROM Treatment/Plan Treatment Plan: Continue Plan of Care Treatment Plan: Bed Mobility, Concurrent Therapy, Education, Functional Activity Estella, Functional Strength, Group Therapy, Safety, Therapeutic Exercise, Transfers Treatment Duration: Jan 31, 2019 Frequency: At least 5 of 7 days/Wk (IRF) Estimated Hrs Per Day: 1.5 hours per day Patient and/or Family Agrees t: Yes Safety Risks/Education Patient Education: Correct Positioning, Safety Issues Teaching Recipient: Patient Teaching Methods: Demonstration, Discussion Response to Teaching: Reinforcement Needed Time/GCodes Time In: 1300 Time Out: 1315 Total Billed Treatment Time: 15 Total Billed Treatment 1 visit EX Ivett' ADRIENNE DURAN PT Feb 06, 2019 13:16
--- NOTE | 2019-02-06 13:19 | Speech Therapy Daily Note ---
Speech Daily Progress Note Subjective Date Seen by Provider: Feb 06, 2019 Time Seen by Provider: 00:30 The patient states he is for sure going home tomorrow. Objective The patient consumed 100% of his meal with assistance for all intake. Food:drink alternation were continued throughout the meal. Assessment Assessment Current Status: Good Progress Treatment Plan Continue Plan of Care Communication Comprehension: 7 Expression: 7 Social Cognition Social Interaction: 6 Problem Solvin Memory: 6 Speech Short Term Goals Short Term Goals Short Term Goals 1) The patient will complete memory tasks related to his daily needs at 90% or greater with minimal cues. 2) The patient will complete problem solving tasks related to his daily needs at 90% or greater with minimal cues. 3) The patient will complete safety awareness tasks related to his daily needs at 90% or greater with minimal cues. 4) The patient will tolerate least restrictive diet without s/s of aspiration with 90% or greater. 5) The patient will demonstrate compliance of utilization of compensatory strategies as trained at 90% or greater with minimal cues. Speech Group Home Goals Group Home Goals The patient will improve his cognitive status for a safe return home. The patient will maintain adequate nutrition/hydration via safe effective swallow function and/or PEG tube. Speech-Plan Patient/Family Goals Patient/Family Goals: The patient plans on returning home with family tomorrow. He will have in home services. Treatment Plan Speech Therapy Treatment Plan: Continue Plan of Care The patient has made good progress with ST goals. Treatment Duration: Feb 07, 2019 Frequency: 5 times per week Estimated Hrs Per Day: .5 hour per day Rehab Potential: Guarded Barriers to Learning: Patient has some cognitive deficits. Pt/Family Agrees to Plan: Yes Safety Risks/Education Teaching Recipient: Patient, Significant Other Teaching Methods: Discussion Response to Teaching: Verbalize Understanding Education Topics Provided: Continued safety of oral intake. Time Speech Therapy Time In: 12:15 Speech Therapy Time Out: 12:45 Total Billed Time: 30 Billed Treatment Time 1LUIS DANIEL [address] [facility] Feb 06, 2019 13:19
--- NOTE | 2019-02-06 13:27 | Occupational Ther Daily Note ---
OT Current Status-Daily Note Subjective No pain reported. Appearance Pt. in bed. Agrees to work with therapy. Mental Status/Objective Patient Orientation: Person, Place Therapy Code Descriptions/Definitions Functional [place] Measure: 0=Not Assessed/NA 4=Minimal Assistance 1=Total Assistance 5=Supervision or Setup 2=Maximal Assistance 6=Modified [place] 3=Moderate Assistance 7=Complete [place] Attachments: IV ADL-Treatment Therapy Code Descriptions/Definitions Functional [place] Measure: 0=Not Assessed/NA 4=Minimal Assistance 1=Total Assistance 5=Supervision or Setup 2=Maximal Assistance 6=Modified [place] 3=Moderate Assistance 7=Complete [place] Therapy Quality Codes: 6 Independent with activity with or without an assistive device 5 Patient requires set up or clean up by helper. Patient completes activity by themselves 4 Supervision or touching assist (CGA). Se[place]our provide cues , steadying assist 3 The helper provides less than half the effort to complete the activity 2 The helper provides more than half the effort to complete the activity 1 Dependent. The helper does all the effort to complete an activity 7 Patient refused to complete or attempt activity 9 The patient did not perform the activity before the current illness or injury 88 Not attempted due to Medical conditions or safety concerns Eating (FIM): 1 Eating (QC): 1 Grooming (FIM): 1 Oral Hygiene (QC): 1 Bathing (FIM): 1 Shower/Bathe Self (QC): 1 Lower Body Dressing (FIM): 1 Lower Body Dressing (QC): 1 On/Off Footwear (QC): 1 Toileting (FIM): 1 Toileting Hygiene (QC): 1 Transfers (B, C, W/C) (FIM): 1 Pt. in bed. Agrees to work with therapy. OT began treatment by performing bilateral UE stretch with PROM to all joints in all planes. Noted increased tone in biceps with passive movement, but this subsided. OT gave pt. warm wash cloth and encouraged pt. to wash face using elbow flexion motion with OT positioning arm. Pt. attempts to dab with cloth draped on hand. Unable to do this. OT donned universal cuff to right UE and engaged pt. in both brushing teeth, and feeding self with spoon. Pt. required assistance to position elbow, and AAROM to bring both items to mouth. Pt. fatigues easily. PT came into room and assisted with co-treat due to fatigue and need of two skilled therapists. PT focused on LE stretch and motion while OT addressing grooming and feeding skills. Donned warm shampoo cap on pt's head and cleansed hair at bed level. OT/PT assisted pt. with bathing with dependent x 2 for rolling sided to side and washing all parts. Applied lotion to pt limbs. Pt declines all OOB activities in wheelchair. Positioned pt. on side to comfort level. Pt. has call button and is able to demonstrate using it before therapy leaves room. Education OT Patient Education: Correct positioning, Exercise program, Modified ADL techniques, Progress toward Goal/Update tx plan, Purpose of tx/functional activities, Reviewed precautions, Rehab process, Transfer techniques, Use of adapted equipment Teaching Recipient: Patient Teaching Methods: Demonstration, Discussion Response to Teaching: Verbalize Understanding, Unable to Return Demonstration OT Short Term Goals Short Term Goals Time Frame: Jan 24, 2019 Grooming(FIM): 2 (with AE) Upper Body Dressing(FIM): 2 Transfers (B,C,W/C) (FIM): 1 Additional Short Term Goals: 3-ImproveStrength/Estella 1=Demonstrate adherence to instructed precautions during ADL tasks. 2=Patient will verbalize/demonstrate understanding of assistive devices/modifications for ADL. 3=Patient will improve strength/tolerance for activity to enable patient to perform ADL's. OT Longterm Goals Longterm Goals Time Frame: Feb 14, 2019 Eating (FIM): 3 Eating (QC): 3 Groomin Oral Hygiene (QC): 3 Upper Body Dressing(FIM): 3 Additional Goals: 3-ImproveStrength/Estella 1=Demonstrate adherence to instructed precautions during ADL tasks. 2=Patient will verbalize/demonstrate understanding of assistive dev ices/modifications for ADL. 3=Patient will improve strength/tolerance for activity to enable patient to perform ADL's. OT Education/Plan Problem List/Assessment Assessment: Decreased Activ Tolerance, Decreased UE Strength, Dependent Transfers, Impaired Bed Mobility, Impaired Coordination, Impaired Funct Balance, Impaired I ADL's, Impaired Self-Care Skills, Restricted Funct UE ROM Discharge Recommendations Plan/Recommendations: Continue POC Therapy D/C Recommendations: 24 hr Supervision Treatment Plan/Plan of Care Treatment,Training & Education: Yes Patient would benefit from OT for education, treatment and training to promote independence in ADL's, mobility, safety and/or upper extremity function for ADL's. Plan of Care: ADL Retraining, Caregiver Training, Functional Mobility, Group Exercise/Act as Ind, UE Funct Exercise/Act, UE Neuromus Re-Ed/Coord, W/C Management Training Treatment Duration: Feb 14, 2019 Frequency: At least 5 of 7 days/Wk (IRF) Estimated Hrs Per Day: 1.5 hours per day Agreement: Yes Rehab Potential: Guarded Time/GCodes Start Time: 09:40 Stop Time: 10:55 Total Time Billed (hr/min): 75 Billed Treatment Time 1, ADL x 45minutes, Ex x 30minutes. Co-treat with PT. Please see above note for designated roles. SHEYLA PETERSON OT Feb 06, 2019 13:27
[2019-02-06 17:09] VITALS: BP 116/74
[2019-02-06] MEDS: IBUPROFEN TABLET 200 MG TAB PO PRN (17:11)
--- NOTE | 2019-02-06 19:04 | NUR ---
bedside report received from ASAEL BONILLA, assume care of pt
[2019-02-06] MEDS: ALPRAZolam 0.5 MG (XANAX) TAB PO PRN (20:24)
[2019-02-06] MEDS: MONTELUKAST 10 MG (SINGULAIR) TAB PO SCH (20:24)
[2019-02-06 20:25] VITALS: BP 98/59
[2019-02-06] MEDS: QUEtiapine 25 MG (SEROquel) TAB IMMEDIATE RELEASE PO SCH (20:25)
[2019-02-06] MEDS: MELATONIN 3 MG TABLET PO SCH (20:25)
--- NOTE | 2019-02-06 20:30 | NUR ---
assessments & interventions completed, see assessments & interventions, pt refused Hermilo requested Lioresal 5mg po given
--- NOTE | 2019-02-06 20:35 | NUR ---
fsbs 155 no ss insulin req
[2019-02-07] MEDS: NYSTATIN ORAL SUSP 5 ML UDC PO SCH ×3 (00:12→13:34)
--- NOTE | 2019-02-07 04:16 | NUR ---
c/o rt shoulder pain level 8/10 on numeric scale, Ultram 50mg po given
--- NOTE | 2019-02-07 05:00 | NUR ---
resting quietly in bed, pain level 0/10 on flacc scale
[2019-02-07 05:22] VITALS: BP 92/54
[2019-02-07] MEDS: inSUlin ASPART (NovoLOG) 1 UNIT/0.01 ML (CHARGE PER UNIT) SC SCH ×2 (05:46→11:50)
[2019-02-07 05:58] LABS: BASOPHILS % (AUTO) 0 % (0-10); EOSINOPHILS # (AUTO) 0.1 10^3/uL (0.0-0.3); EOSINOPHILS % (AUTO) 1 % (0-10); HEMATOCRIT 32 % (40-54); HEMOGLOBIN 10.3 G/DL (13.3-17.7); LYMPHOCYTES # (AUTO) 3.1 X 10^3 (1.0-4.0); LYMPHOCYTES % (AUTO) 34 % (12-44); MEAN CORPUSCULAR HEMOGLOBIN 29 PG (25-34); MEAN CORPUSCULAR HGB CONC 33 G/DL (32-36); MEAN CORPUSCULAR VOLUME 90 FL (80-99); MEAN PLATELET VOLUME 7.7 FL (7.4-10.4); MONOCYTES # (AUTO) 1.3 X 10^3 (0.0-1.0); MONOCYTES % (AUTO) 14 % (0-12); NEUTROPHILS # (AUTO) 4.6 X 10^3 (1.8-7.8); NEUTROPHILS % (AUTO) 51 % (42-75); PLATELET COUNT 354 10^3/uL (130-400); RED CELL DISTRIBUTION WIDTH 13.7 % (10.0-14.5); WHITE BLOOD COUNT 9.1 10^3/uL (4.3-11.0)
[2019-02-07] MEDS: CATHETER FLUSH 10 ML SYR IV SCH (06:00)
[2019-02-07 06:17] LABS: ALANINE AMINOTRANSFERASE 22 U/L (0-55); ALBUMIN 3.1 GM/DL (3.2-4.5); ALKALINE PHOSPHATASE 119 U/L (40-136); BILIRUBIN,TOTAL 0.2 MG/DL (0.1-1.0); BUN/CREATININE RATIO 20; CALCIUM 9.2 MG/DL (8.5-10.1); CARBON DIOXIDE 22 MMOL/L (21-32); CHLORIDE 103 MMOL/L (98-107); CREATININE SERUM 0.64 MG/DL (0.60-1.30); GFR ESTIMATED > 60; GLUCOSE 100 MG/DL (70-105); POTASSIUM 3.9 MMOL/L (3.6-5.0); SODIUM 136 MMOL/L (135-145); TOTAL PROTEIN 7.7 GM/DL (6.4-8.2)
[2019-02-07] MEDS: guaiFENesin SYRUP 100 MG/5 ML 10 ML (ROBITUSSIN SF) PEG SCH ×2 (06:18→13:33)
[2019-02-07] MEDS: ALPRAZolam 0.5 MG (XANAX) TAB PEG PRN (06:19)
[2019-02-07] MEDS: KCL 10 MEQ TAB (MICRO K) PO SCH (06:19)
--- NOTE | 2019-02-07 07:10 | NUR ---
bedside report given to TENNILLE BONILLA
[2019-02-07] MEDS: POT PHOS/NA PHOS (K-PHOS NEUTRAL) PO SCH (08:16)
[2019-02-07] MEDS: LORATADINE (CLARITIN) 10 MG TAB PO SCH (08:16)
[2019-02-07] MEDS: MIDODRINE 10 MG (PROAMATINE) TAB PO SCH ×2 (08:16→13:34)
[2019-02-07] MEDS: FAMOTIDINE 20 MG (PEPCID) TABLET PO SCH (08:16)
--- NOTE | 2019-02-07 08:39 | Discharge Summary ---
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 García and Dr. Craven and it appears to need additional debridement in the future until healed Wound VAC after debridement if needed Maintained on Lovenox Consult urology is appreciated but no DC cath until coccyx ulcer is healed Rehabilitation to focus on transfers and lessen burden on caretakers group home placement now that he now has Medicaid Removes neck brace while sleeping to aid in alleviation of discomfort causing behaviors and will await NSG recs for brace removal at his request now on soft neck brace Seroquel at night Celexa in the morning Advanced diet Supplement potassium Stop Diflucan since completed treatment DC PEG in next 6 weeks DC trach and doing well NHP once approved and now he has Medicaid so that will help dispo IV abx Sepsis bundle order set Abx broad spectrum Meropenem but DC Vanc but changed to Levaquin to complete treatment DC home tomorrow but VCV NH as back up arranged (1) Sepsis Status: Acute Qualifiers: Sepsis type: Pseudomonas Sepsis acute organ dysfunction status: without acute organ dysfunction Qualified Codes: A41.52 - Sepsis due to Pseudomonas (2) Spinal cord injury at C1-C4 level Status: Chronic Qualifiers: Encounter type: sequela Qualified Codes: S14.101S - Unspecified injury at C1 level of cervical spinal cord, sequela (3) Anemia Status: Chronic Qualifiers: Anemia type: unspecified type Qualified Codes: D64.9 - Anemia, unspecified (4) Anxiety Status: Chronic (5) Chronic pain Status: Chronic (6) Neurogenic bladder (7) HLD (hyperlipidemia) Status: Chronic (8) Tracheostomy dependent (9) DVT prophylaxis Status: Acute (10) Post-traumatic quadriplegia (11) Closed right scapular fracture (12) Right rib fracture (13) Right pulmonary contusion (14) Decubitus ulcer of coccygeal region, stage 4 (15) Shock due to spinal cord injury (16) Diabetes mellitus (17) Elevated blood pressure reading Status: Acute (18) Hospital discharge follow-up (19) Septic prepatellar bursitis of left knee (20) septic bursa (21) Paresthesias Status: Acute (22) Uncontrolled diabetes mellitus Status: Chronic (23) Illicit drug use Status: Acute (24) Cellulitis Status: Acute (25) Hyperglycemia Status: Acute (26) Sepsis Status: Acute (27) Hypertension Status: Chronic (28) Type 2 diabetes mellitus with hyperglycemia Status: Chronic (29) PEG (percutaneous endoscopic gastrostomy) status (30) UTI (urinary tract infection) Status: Acute Qualifiers: Indwelling urinary catheter type: indwelling urethral catheter Encounter type: initial encounter (31) Gram-negative bacteremia Status: Acute Discharge Summary Discharge Physical Examination Allergies: Coded Allergies: No Known Drug Allergies (Unverified , 08/25/10) Vitals & I&Os Vital Signs Date Time Temp Pulse Resp B/P (MAP) Pulse Ox O2 Delivery O2 Flow Rate FiO2 02/07/19 09:00 Room Air 02/07/19 05:22 96.4 73 16 92/54 (67) 96 General Appearance: Alert, Oriented X3, Cooperative Respiratory: Clear to Auscultation Cardiovascular: Regular Rate Abdominal: Normal Bowel Sounds Psych/Mental Status: Mental Status NL, Mood NL Hospital Course Was the Problem List Reviewed?: Yes Hospital Course: Pt had a lengthy hospital course of 30 days when he was admitted from [facility] after suffering a fall from 30 feet while painting a house suffering a C4 cervical spinal cord injury resulting in decompressive surgery with hardware placement and rib plating due to flail chest. He had. a lengthy hospital course in order to achieve stability in order to eventually return home but the complexities of his quadriplegia required a back up plan of retirement after medicaid insurance was approved at [facility] who has accepted him in assuming the rest of his care fpc if he should fail at home. Decubitus ulcer was managed by Dr. García and required multiple bedside debridements. He initially came over with a wound vac but Dr. Craven recommended debridement by Dr. García and took the wound vac off. He remains with a Goodman catheter due to neurogenic bladder and urology was consulted feeling like it was best to keep the Goodman catheter in in order to find stability at [place] to help the decubitus ulcer to heal and will entertain suprapubic catheter placement and in and out Cath if that Is feasible with any return of neurological function. He had a somewhat uncomplicated hospital course. He was managed by pulmonology with nebulizer treatments, oxygen supplementation, and IS. he did require antibiotics for bacterial bronchitis of Vancomycin and Zosyn during the initial hospital course but as ultimately able to remove the trach, was able to speak on his own, and clear his own secretions and Peg tube remain until the end of February in order to be able to remove that safely with adequate healing afterwards. He did have an episode of sepsis and was empirically placed on Vancomycin and Meropenem on the evening of the first onset of fever, white count remained elevated and Pseudomonas grew out on blood culture and urine culture so he continued on Meropenem and that was changed to Levaquin considering the sensitivities on the cultures and he will resume that 750mg once daily for five days to complete that treatment. Overall his prognosis remains poor, he will likely have decubitus ulcer issues and hopefully he will be able to be placed at [facility] if he agrees for additional supportive care that his family may not be able to provide but that is essentially a back up plan if home is not an option. Labs (last 24 hrs) Laboratory Tests 01/09/19 16:14: Lab Scanned Report Referred Lab Report 01/09/19 18:17: Glucometer 96 01/10/19 00:00: Glucometer 175H 01/10/19 05:14: Glucometer 120H 01/10/19 05:17: White Blood Count 6.8, Red Blood Count 3.33L, Hemoglobin 10.1L, Hematocrit 32L, Mean Corpuscular Volume 96, Mean Corpuscular Hemoglobin 30, Mean Corpuscular Hemoglobin Concent 32, Red Cell Distribution Width 14.9H, Platelet Count 208, Mean Platelet Volume 8.5, Neutrophils (%) (Auto) 54, Lymphocytes (%) (Auto) 33, Monocytes (%) (Auto) 12, Eosinophils (%) (Auto) 0, Basophils (%) (Auto) 0, Neutrophils # (Auto) 3.7, Lymphocytes # (Auto) 2.3, Monocytes # (Auto) 0.8, Eosinophils # (Auto) 0.0, Basophils # (Auto) 0.0, Sodium Level 135, Potassium Level 4.6, Chloride Level 99, Carbon Dioxide Level 24, Anion Gap 12, Blood Urea Nitrogen 13, Creatinine 0.72, Estimat Glomerular Filtration Rate > 60, BUN/Creatinine Ratio 18, Glucose Level 119H, Calcium Level 9.1, Corrected Calcium 9.8, Total Bilirubin 0.3, Aspartate Amino Transf (AST/SGOT) 26, Alanine Aminotransferase (ALT/SGPT) 19, Alkaline Phosphatase 178H, B-Type Natriuretic Peptide 104.6H, Total Protein 7.7, Albumin 3.1L 01/10/19 09:57: Blood Gas Puncture Site RT BRACHIAL, Blood Gas Patient Temperature 96.8, Arterial Blood pH 7.46H, Arterial Blood Partial Pressure CO2 39, Arterial Blood Partial Pressure O2 78L, Arterial Blood HCO3 27, Arterial Blood Total CO2 28.6, Arterial Blood Oxygen Saturation 97, Arterial Blood Base Excess 3.5H, Jeremiah Test YES-POS, Blood Gas Ventilator Setting NO, Blood Gas Inspired Oxygen TRACH 6 L 28% 01/10/19 10:10: Urine Color YELLOW, Urine Clarity CLEAR, Urine pH 8, Urine Specific [place] 1.010L, Urine Protein 1+H, Urine Glucose (UA) NEGATIVE, Urine Ketones NEGATIVE, Urine Nitrite NEGATIVE, Urine Bilirubin NEGATIVE, Urine Urobilinogen 4H, Urine Leukocyte Esterase NEGATIVE, Urine RBC (Auto) NEGATIVE, Urine RBC RARE, Urine WBC NONE, Urine Squamous Epithelial Cells RARE, Urine Crystals NONE, Urine Bacteria NEGATIVE, Urine Casts PRESENT, Urine Hyaline Casts RARE, Urine Mucus SMALLH, Urine Culture Indicated NO 01/10/19 11:50: Glucometer 239H 01/10/19 17:35: Vancomycin Level Trough 16.0 01/10/19 18:32: Glucometer 281H 01/11/19 00:14: Glucometer 244H 01/11/19 04:52: Glucometer 78 01/11/19 05:00: White Blood Count 6.5, Red Blood Count 3.30L, Hemoglobin 10.1L, Hematocrit 32L, Mean Corpuscular Volume 96, Mean Corpuscular Hemoglobin 31, Mean Corpuscular Hemoglobin Concent 32, Red Cell Distribution Width 15.1H, Platelet Count 225, Mean Platelet Volume 8.6, Neutrophils (%) (Auto) 53, Lymphocytes (%) (Auto) 31, Monocytes (%) (Auto) 14H, Eosinophils (%) (Auto) 2, Basophils (%) (Auto) 0, Neutrophils # (Auto) 3.4, Lymphocytes # (Auto) 2.0, Monocytes # (Auto) 0.9, Eosinophils # (Auto) 0.1, Basophils # (Auto) 0.0, Sodium Level 140, Potassium Level 3.8, Chloride Level 105, Carbon Dioxide Level 25, Anion Gap 10, Blood Urea Nitrogen 13, Creatinine 0.64, Estimat Glomerular Filtration Rate > 60, BUN/Creatinine Ratio 20, Glucose Level 82, Calcium Level 9.2, Phosphorus Level 3.5, Magnesium Level 2.2 01/11/19 11:58: Glucometer 104 01/11/19 18:46: Glucometer 150H 01/12/19 00:25: Glucometer 305H 01/12/19 01:54: Glucometer 335H 01/12/19 05:19: Glucometer 155H 01/12/19 05:30: White Blood Count 7.3, Red Blood Count 3.43L, Hemoglobin 10.5L, Hematocrit 33L, Mean Corpuscular Volume 97, Mean Corpuscular Hemoglobin 31, Mean Corpuscular Hemoglobin Concent 31L, Red Cell Distribution Width 15.1H, Platelet Count 243, Mean Platelet Volume 9.1, Neutrophils (%) (Auto) 51, Lymphocytes (%) (Auto) 34, Monocytes (%) (Auto) 13H, Eosinophils (%) (Auto) 2, Basophils (%) (Auto) 0, Neutrophils # (Auto) 3.7, Lymphocytes # (Auto) 2.4, Monocytes # (Auto) 0.9, Eosinophils # (Auto) 0.1, Basophils # (Auto) 0.0, Sodium Level 138, Potassium Level 3.9, Chloride Level 104, Carbon Dioxide Level 23, Anion Gap 11, Blood Urea Nitrogen 16, Creatinine 0.67, Estimat Glomerular Filtration Rate > 60, BUN/Creatinine Ratio 24, Glucose Level 126H, Calcium Level 9.2, Phosphorus Level 2.9, Magnesium Level 1.9 01/12/19 08:45: Glucometer 149H 01/12/19 11:23: Glucometer 115H 01/12/19 17:42: Glucometer 165H 01/12/19 23:18: Glucometer 140H 01/13/19 05:05: White Blood Count 7.4, Red Blood Count 3.31L, Hemoglobin 10.1L, Hematocrit 33L, Mean Corpuscular Volume 99, Mean Corpuscular Hemoglobin 31, Mean Corpuscular Hemoglobin Concent 31L, Red Cell Distribution Width 15.3H, Platelet Count 235, Mean Platelet Volume 8.6, Neutrophils (%) (Auto) 52, Lymphocytes (%) (Auto) 32, Monocytes (%) (Auto) 14H, Eosinophils (%) (Auto) 2, Basophils (%) (Auto) 0, Neutrophils # (Auto) 3.8, Lymphocytes # (Auto) 2.4, Monocytes # (Auto) 1.1H, Eosinophils # (Auto) 0.1, Basophils # (Auto) 0.0, Sodium Level 141, Potassium Level 3.7, Chloride Level 107, Carbon Dioxide Level 25, Anion Gap 9, Blood Urea Nitrogen 8, Creatinine 0.65, Estimat Glomerular Filtration Rate > 60, BUN/Creatinine Ratio 12, Glucose Level 72, Calcium Level 9.4, Phosphorus Level 3.3, Magnesium Level 1.7L 01/13/19 11:55: Glucometer 158H 01/13/19 19:02: Glucometer 230H 01/13/19 20:46: Glucometer 238H 01/14/19 05:45: White Blood Count 7.1, Red Blood Count 3.27L, Hemoglobin 10.0L, Hematocrit 32L, Mean Corpuscular Volume 99, Mean Corpuscular Hemoglobin 31, Mean Corpuscular Hemoglobin Concent 31L, Red Cell Distribution Width 15.5H, Platelet Count 235, Mean Platelet Volume 8.5, Neutrophils (%) (Auto) 51, Lymphocytes (%) (Auto) 33, Monocytes (%) (Auto) 14H, Eosinophils (%) (Auto) 1, Basophils (%) (Auto) 0, Neutrophils # (Auto) 3.6, Lymphocytes # (Auto) 2.4, Monocytes # (Auto) 1.0, Eosinophils # (Auto) 0.1, Basophils # (Auto) 0.0, Sodium Level 142, Potassium Level 3.6, Chloride Level 107, Carbon Dioxide Level 23, Anion Gap 12, Blood Urea Nitrogen 9, Creatinine 0.65, Estimat Glomerular Filtration Rate > 60, BUN/Creatinine Ratio 14, Glucose Level 100, Calcium Level 9.3, Magnesium Level 1.9 01/14/19 10:49: Glucometer 171H 01/14/19 15:13: Glucometer 88 01/14/19 20:36: Glucometer 94 01/15/19 05:29: Glucometer 97 01/15/19 10:45: Glucometer 105 01/15/19 15:45: Glucometer 92 01/15/19 21:44: Glucometer 231H 01/16/19 06:00: Glucometer 129H 01/16/19 11:01: Glucometer 158H 01/16/19 15:32: Glucometer 181H 01/16/19 20:08: Glucometer 275H 01/17/19 05:28: Glucometer 93 01/17/19 05:54: Glucometer 97 01/17/19 06:31: White Blood Count 6.0, Red Blood Count 3.37L, Hemoglobin 10.4L, Hematocrit 33L, Mean Corpuscular Volume 97, Mean Corpuscular Hemoglobin 31, Mean Corpuscular Hemoglobin Concent 32, Red Cell Distribution Width 14.7H, Platelet Count 236, Mean Platelet Volume 8.3, Neutrophils (%) (Auto) 52, Lymphocytes (%) (Auto) 32, Monocytes (%) (Auto) 15H, Eosinophils (%) (Auto) 1, Basophils (%) (Auto) 0, Neutrophils # (Auto) 3.1, Lymphocytes # (Auto) 1.9, Monocytes # (Auto) 0.9, Eosinophils # (Auto) 0.1, Basophils # (Auto) 0.0, Sodium Level 143, Potassium Level 3.1L, Chloride Level 109H, Carbon Dioxide Level 23, Anion Gap 11, Blood Urea Nitrogen 8, Creatinine 0.62, Estimat Glomerular Filtration Rate > 60, BUN/Creatinine Ratio 13, Glucose Level 89, Calcium Level 9.5, Corrected Calcium 10.1, Total Bilirubin 0.3, Aspartate Amino Transf (AST/SGOT) 15, Alanine Aminotransferase (ALT/SGPT) 21, Alkaline Phosphatase 164H, Total Protein 7.3, Albumin 3.2 01/17/19 11:01: Glucometer 232H 01/17/19 15:50: Glucometer 236H 01/17/19 20:53: Glucometer 202H 01/18/19 04:56: Glucometer 80 01/18/19 10:44: Glucometer 174H 01/18/19 15:18: Glucometer 274H 01/18/19 20:06: Glucometer 237H 01/19/19 05:28: Glucometer 108 01/19/19 11:27: Glucometer 124H 01/19/19 15:18: Glucometer 279H 01/19/19 20:39: Glucometer 169H 01/20/19 11:01: Glucometer 229H 01/20/19 15:27: Glucometer 217H 01/20/19 21:18: Glucometer 134H 01/21/19 05:33: Glucometer 118H 01/21/19 11:17: Glucometer 334H 01/21/19 15:31: Glucometer 128H 01/21/19 20:00: Glucometer 207H 01/22/19 04:15: White Blood Count 7.5, Red Blood Count 3.56L, Hemoglobin 10.7L, Hematocrit 34L, Mean Corpuscular Volume 96, Mean Corpuscular Hemoglobin 30, Mean Corpuscular Hemoglobin Concent 32, Red Cell Distribution Width 14.8H, Platelet Count 242, Mean Platelet Volume 7.9, Neutrophils (%) (Auto) 55, Lymphocytes (%) (Auto) 28, Monocytes (%) (Auto) 15H, Eosinophils (%) (Auto) 2, Basophils (%) (Auto) 0, Neutrophils # (Auto) 4.1, Lymphocytes # (Auto) 2.1, Monocytes # (Auto) 1.1H, Eosinophils # (Auto) 0.2, Basophils # (Auto) 0.0, Sodium Level 142, Potassium Level 3.5L, Chloride Level 106, Carbon Dioxide Level 22, Anion Gap 14, Blood Urea Nitrogen 8, Creatinine 0.65, Estimat Glomerular Filtration Rate > 60, BUN/Creatinine Ratio 12, Glucose Level 78, Calcium Level 9.8, Corrected Calcium 10.4H, Total Bilirubin 0.3, Aspartate Amino Transf (AST/SGOT) 13, Alanine Aminotransferase (ALT/SGPT) 17, Alkaline Phosphatase 149H, Total Protein 8.1, Albumin 3.2 01/22/19 10:59: Glucometer 164H 01/22/19 15:26: Glucometer 204H 01/22/19 20:48: Glucometer 169H 01/23/19 05:49: Glucometer 97 01/23/19 10:49: Glucometer 120H 01/23/19 16:46: Glucometer 138H 01/23/19 21:01: Glucometer 173H 01/24/19 05:54: Glucometer 109 01/24/19 10:54: Glucometer 141H 01/24/19 15:18: Glucometer 98 01/24/19 19:59: Glucometer 253H 01/25/19 05:24: Glucometer 103 01/25/19 11:17: Glucometer 178H 01/25/19 15:58: Glucometer 211H 01/25/19 20:40: Glucometer 203H 01/26/19 06:01: White Blood Count 8.2, Red Blood Count 3.47L, Hemoglobin 10.3L, Hematocrit 33L, Mean Corpuscular Volume 95, Mean Corpuscular Hemoglobin 30, Mean Corpuscular Hemoglobin Concent 31L, Red Cell Distribution Width 14.3, Platelet Count 221, Mean Platelet Volume 8.2, Neutrophils (%) (Auto) 51, Lymphocytes (%) (Auto) 35, Monocytes (%) (Auto) 13H, Eosinophils (%) (Auto) 1, Basophils (%) (Auto) 0, Neutrophils # (Auto) 4.2, Lymphocytes # (Auto) 2.9, Monocytes # (Auto) 1.0, Eosinophils # (Auto) 0.1, Basophils # (Auto) 0.0, Sodium Level 139, Potassium Level 3.6, Chloride Level 107, Carbon Dioxide Level 23, Anion Gap 9, Blood Urea Nitrogen 8, Creatinine 0.63, Estimat Glomerular Filtration Rate > 60, BUN/Creatinine Ratio 13, Glucose Level 106H, Calcium Level 9.7, Corrected Calcium 10.3H, Total Bilirubin 0.3, Aspartate Amino Transf (AST/SGOT) 10, Alanine Aminotransferase (ALT/SGPT) 16, Alkaline Phosphatase 150H, Total Protein 7.3, Albumin 3.3 01/26/19 06:15: Glucometer 108 01/26/19 10:50: Glucometer 188H 01/26/19 15:20: Glucometer 209H 01/26/19 20:25: Glucometer 227H 01/27/19 05:34: Glucometer 99 01/27/19 11:36: Glucometer 132H 01/27/19 15:46: Glucometer 232H 01/27/19 20:48: Glucometer 190H 01/28/19 06:17: Glucometer 115H 01/28/19 07:53: White Blood Count 7.9, Red Blood Count 3.50L, Hemoglobin 10.5L, Hematocrit 33L, Mean Corpuscular Volume 93, Mean Corpuscular Hemoglobin 30, Mean Corpuscular Hemoglobin Concent 32, Red Cell Distribution Width 14.0, Platelet Count 239, Mean Platelet Volume 7.9, Neutrophils (%) (Auto) 58, Lymphocytes (%) (Auto) 28, Monocytes (%) (Auto) 13H, Eosinophils (%) (Auto) 1, Basophils (%) (Auto) 0, Neutrophils # (Auto) 4.6, Lymphocytes # (Auto) 2.2, Monocytes # (Auto) 1.0, Eosinophils # (Auto) 0.1, Basophils # (Auto) 0.0, Sodium Level 138, Potassium Level 4.0, Chloride Level 106, Carbon Dioxide Level 20L, Anion Gap 12, Blood Urea Nitrogen 8, Creatinine 0.65, Estimat Glomerular Filtration Rate > 60, BUN/Creatinine Ratio 12, Glucose Level 109H, Calcium Level 9.7, Phosphorus Level 3.5, Magnesium Level 1.7L, B-Type Natriuretic Peptide 88.3 01/28/19 11:07: Glucometer 225H 01/28/19 15:08: Glucometer 202H 01/28/19 20:24: Glucometer 135H 01/29/19 06:25: Glucometer 106 01/29/19 11:37: Glucometer 168H 01/29/19 17:07: Glucometer 146H 01/29/19 20:57: Glucometer 217H 01/30/19 06:05: Glucometer 113H 01/30/19 06:10: White Blood Count 8.2, Red Blood Count 3.60L, Hemoglobin 10.7L, Hematocrit 34L, Mean Corpuscular Volume 93, Mean Corpuscular Hemoglobin 30, Mean Corpuscular Hemoglobin Concent 32, Red Cell Distribution Width 14.0, Platelet Count 258, Mean Platelet Volume 8.0, Neutrophils (%) (Auto) 58, Lymphocytes (%) (Auto) 27, Monocytes (%) (Auto) 14H, Eosinophils (%) (Auto) 2, Basophils (%) (Auto) 0, Neutrophils # (Auto) 4.7, Lymphocytes # (Auto) 2.2, Monocytes # (Auto) 1.1H, Eosinophils # (Auto) 0.1, Basophils # (Auto) 0.0, Sodium Level 142, Potassium Level 3.7, Chloride Level 108H, Carbon Dioxide Level 21, Anion Gap 13, Blood Urea Nitrogen 9, Creatinine 0.65, Estimat Glomerular Filtration Rate > 60, BUN/Creatinine Ratio 14, Glucose Level 117H, Calcium Level 9.8, Corrected Calcium 10.4H, Total Bilirubin 0.2, Aspartate Amino Transf (AST/SGOT) 12, Alanine Aminotransferase (ALT/SGPT) 18, Alkaline Phosphatase 156H, Total Protein 7.6, Albumin 3.3 01/30/19 11:01: Glucometer 209H 01/30/19 15:15: Glucometer 162H 01/30/19 20:31: Glucometer 236H 01/31/19 05:59: Glucometer 140H 01/31/19 11:33: Glucometer 165H 01/31/19 15:23: Glucometer 309H 01/31/19 19:29: Glucometer 130H 01/31/19 20:30: White Blood Count 15.1H, Red Blood Count 3.62L, Hemoglobin 10.9L, Hematocrit 33L , Mean Corpuscular Volume 91, Mean Corpuscular Hemoglobin 30, Mean Corpuscular Hemoglobin Concent 33, Red Cell Distribution Width 13.7, Platelet Count 270, Mean Platelet Volume 8.0, Neutrophils (%) (Auto) 90H, Lymphocytes (%) (Auto) 6L, Monocytes (%) (Auto) 4, Eosinophils (%) (Auto) 0, Basophils (%) (Auto) 0, Neutrophils # (Auto) 13.5H, Lymphocytes # (Auto) 0.9L, Monocytes # (Auto) 0.6, Eosinophils # (Auto) 0.0, Basophils # (Auto) 0.0, Neutrophils % (Manual) 75, Lymphocytes % (Manual) 4, Monocytes % (Manual) 6, Eosinophils % (Manual) 1, Band Neutrophils 15, Blood Morphology Comment NORMAL, Sodium Level 133L, Potassium Level 4.2, Chloride Level 101, Carbon Dioxide Level 18L, Anion Gap 14, Blood Urea Nitrogen 10, Creatinine 0.64, Estimat Glomerular Filtration Rate > 60, BUN/Creatinine Ratio 16, Glucose Level 130H, Lactic Acid Level 3.03*H, Calcium Level 9.4, Corrected Calcium 9.9, Total Bilirubin 0.3, Aspartate Amino Transf (AST/SGOT) 15, Alanine Aminotransferase (ALT/SGPT) 20, Alkaline Phosphatase 164H , Total Protein 7.7, Albumin 3.4 01/31/19 20:50: Glucometer 157H 01/31/19 22:40: Lactic Acid Level 2.78*H 02/01/19 06:00: Glucometer 127H 02/01/19 06:02: Lactic Acid Level 1.76, White Blood Count 25.0H, Red Blood Count 3.05L, Hemoglobin 9.2L, Hematocrit 28L, Mean Corpuscular Volume 92, Mean Corpuscular Hemoglobin 30, Mean Corpuscular Hemoglobin Concent 33, Red Cell Distribution Width 13.7, Platelet Count 249, Mean Platelet Volume 7.8, Neutrophils (%) (Auto) 79H, Lymphocytes (%) (Auto) 10L, Monocytes (%) (Auto) 11, Eosinophils (%) (Auto) 0, Basophils (%) (Auto) 0, Neutrophils # (Auto) 19.7H, Lymphocytes # (Auto) 2.5, Monocytes # (Auto) 2.7H, Eosinophils # (Auto) 0.0, Basophils # (Auto) 0.0, Sodium Level 132L, Potassium Level 3.9, Chloride Level 103, Carbon Dioxide Level 18L, Anion Gap 11, Blood Urea Nitrogen 11, Creatinine 0.63, Estimat Glomerular Filtration Rate > 60, BUN/Creatinine Ratio 17, Glucose Level 122H, Calcium Level 8.3L, Corrected Calcium 9.2, Magnesium Level 1.4L, Total Bilirubin 0.5, Aspartate Amino Transf (AST/SGOT) 16, Alanine Aminotransferase (ALT/SGPT) 18, Alkaline Phosphatase 138H, B-Type Natriuretic Peptide 519.7H, Total Protein 6.3L , Albumin 2.9L 02/01/19 10:15: Urine Color YELLOW, Urine Clarity CLEAR, Urine pH 8, Urine Specific [place] 1.010L, Urine Protein 1+H, Urine Glucose (UA) NEGATIVE, Urine Ketones NEGATIVE, Urine Nitrite NEGATIVE, Urine Bilirubin NEGATIVE, Urine Urobilinogen 1, Urine Leukocyte Esterase 3+H, Urine RBC (Auto) 3+H, Urine RBC 5-10H, Urine WBC 25-50H, Urine Squamous Epithelial Cells NONE, Urine Crystals NONE, Urine Bacteria NEGATIVE, Urine Casts NONE, Urine Mucus NEGATIVE, Urine Culture Indicated YES 02/01/19 10:51: Glucometer 212H 02/01/19 15:45: Glucometer 224H 02/01/19 20:59: Glucometer 178H 02/02/19 06:23: Glucometer 93 02/02/19 06:43: White Blood Count 19.1H, Red Blood Count 3.06L, Hemoglobin 9.2L, Hematocrit 29L, Mean Corpuscular Volume 93, Mean Corpuscular Hemoglobin 30, Mean Corpuscular Hemoglobin Concent 32, Red Cell Distribution Width 13.7, Platelet Count 236, Mean Platelet Volume 8.4, Neutrophils (%) (Auto) 74, Lymphocytes (%) (Auto) 17, Monocytes (%) (Auto) 9, Eosinophils (%) (Auto) 0, Basophils (%) (Auto) 0, Neutrophils # (Auto) 14.3H, Lymphocytes # (Auto) 3.2, Monocytes # (Auto) 1.7H, Eosinophils # (Auto) 0.0, Basophils # (Auto) 0.0, Neutrophils % (Manual) 64, Lymphocytes % (Manual) 21, Monocytes % (Manual) 8, Eosinophils % (Manual) 0, Basophils % (Manual) 0, Band Neutrophils 7, Blood Morphology Comment NORMAL, Sodium Level 141, Potassium Level 3.5L, Chloride Level 110H, Carbon Dioxide Level 21, Anion Gap 10, Blood Urea Nitrogen 7, Creatinine 0.60, Estimat Glomerular Filtration Rate > 60, BUN/Creatinine Ratio 12, Glucose Level 89, Calcium Level 8.7, Corrected Calcium 9.6, Total Bilirubin 0.2, Aspartate Amino Transf (AST/SGOT) 13, Alanine Aminotransferase (ALT/SGPT) 15, Alkaline Phosphatase 118, Total Protein 6.5, Albumin 2.9L 02/02/19 10:52: Glucometer 94 02/02/19 15:26: Glucometer 181H 02/02/19 20:14: Glucometer 178H 02/03/19 06:39: Glucometer 87 02/03/19 06:46: White Blood Count 14.4H, Red Blood Count 3.22L, Hemoglobin 9.5L, Hematocrit 30L, Mean Corpuscular Volume 93, Mean Corpuscular Hemoglobin 30, Mean Corpuscular Hemoglobin Concent 32, Red Cell Distribution Width 13.7, Platelet Count 258, Mean Platelet Volume 8.0, Neutrophils (%) (Auto) 72, Lymphocytes (%) (Auto) 19, Monocytes (%) (Auto) 9, Eosinophils (%) (Auto) 1, Basophils (%) (Auto) 0, Neutrophils # (Auto) 10.3H, Lymphocytes # (Auto) 2.7, Monocytes # (Auto) 1.3H, Eosinophils # (Auto) 0.1, Basophils # (Auto) 0.0, Sodium Level 139, Potassium Level 3.7, Chloride Level 106, Carbon Dioxide Level 24, Anion Gap 9, Blood Urea Nitrogen 7, Creatinine 0.55L, Estimat Glomerular Filtration Rate > 60, BUN/Creatinine Ratio 13, Glucose Level 87, Calcium Level 9.0, Corrected Calcium 9.8, Total Bilirubin 0.2, Aspartate Amino Transf (AST/SGOT) 14, Alanine Aminotransferase (ALT/SGPT) 15, Alkaline Phosphatase 131, Total Protein 6.9, Albumin 3.0L 02/03/19 11:23: Glucometer 139H 02/03/19 15:21: Glucometer 223H 02/03/19 20:01: Glucometer 186H 02/04/19 04:52: Glucometer 104 02/04/19 05:22: White Blood Count 11.7H, Red Blood Count 3.45L, Hemoglobin 10.2L, Hematocrit 31L , Mean Corpuscular Volume 91, Mean Corpuscular Hemoglobin 30, Mean Corpuscular Hemoglobin Concent 33, Red Cell Distribution Width 13.5, Platelet Count 330, Mean Platelet Volume 8.0, Neutrophils (%) (Auto) 65, Lymphocytes (%) (Auto) 24, Monocytes (%) (Auto) 11, Eosinophils (%) (Auto) 1, Basophils (%) (Auto) 0, Neutrophils # (Auto) 7.6, Lymphocytes # (Auto) 2.8, Monocytes # (Auto) 1.3H, Eosinophils # (Auto) 0.1, Basophils # (Auto) 0.0, Sodium Level 138, Potassium Level 3.5L, Chloride Level 103, Carbon Dioxide Level 22, Anion Gap 13, Blood Urea Nitrogen 7, Creatinine 0.62, Estimat Glomerular Filtration Rate > 60, BUN/Creatinine Ratio 11, Glucose Level 95, Calcium Level 9.4, Corrected Calcium 10.1, Total Bilirubin 0.2, Aspartate Amino Transf (AST/SGOT) 16, Alanine Aminotransferase (ALT/SGPT) 19, Alkaline Phosphatase 127, Total Protein 7.6, Albumin 3.1L 02/04/19 10:44: Glucometer 148H 02/04/19 15:34: Glucometer 208H 02/04/19 20:08: Glucometer 247H 02/05/19 05:31: Glucometer 104 02/05/19 06:02: White Blood Count 10.5, Red Blood Count 3.51L, Hemoglobin 10.3L, Hematocrit 32L, Mean Corpuscular Volume 91, Mean Corpuscular Hemoglobin 29, Mean Corpuscular Hemoglobin Concent 32, Red Cell Distribution Width 13.6, Platelet Count 324, Mean Platelet Volume 7.8, Neutrophils (%) (Auto) 55, Lymphocytes (%) (Auto) 31, Monocytes (%) (Auto) 13H, Eosinophils (%) (Auto) 1, Basophils (%) (Auto) 1, Neutrophils # (Auto) 5.8, Lymphocytes # (Auto) 3.2, Monocytes # (Auto) 1.4H, Eosinophils # (Auto) 0.1, Basophils # (Auto) 0.1, Sodium Level 136, Potassium Level 4.1, Chloride Level 104, Carbon Dioxide Level 21, Anion Gap 11, Blood Urea Nitrogen 7, Creatinine 0.60, Estimat Glomerular Filtration Rate > 60, BUN/Creatinine Ratio 12, Glucose Level 99, Calcium Level 9.3, Corrected Calcium 10.1, Total Bilirubin 0.3, Aspartate Amino Transf (AST/SGOT) 17, Alanine Aminotransferase (ALT/SGPT) 19, Alkaline Phosphatase 122, Total Protein 7.3, Albumin 3.0L 02/05/19 10:55: Glucometer 145H 02/05/19 15:38: Glucometer 138H 02/05/19 20:06: Glucometer 130H 02/06/19 05:06: Glucometer 95 02/06/19 05:33: White Blood Count 11.7H, Red Blood Count 3.37L, Hemoglobin 9.9L, Hematocrit 31L, Mean Corpuscular Volume 91, Mean Corpuscular Hemoglobin 29, Mean Corpuscular Hemoglobin Concent 32, Red Cell Distribution Width 13.6, Platelet Count 317, Mean Platelet Volume 7.9, Neutrophils (%) (Auto) 56, Lymphocytes (%) (Auto) 29, Monocytes (%) (Auto) 14H, Eosinophils (%) (Auto) 1, Basophils (%) (Auto) 0, Neutrophils # (Auto) 6.5, Lymphocytes # (Auto) 3.4, Monocytes # (Auto) 1.6H, Eosinophils # (Auto) 0.1, Basophils # (Auto) 0.0, Sodium Level 134L, Potassium Level 4.0, Chloride Level 100, Carbon Dioxide Level 24, Anion Gap 10, Blood Urea Nitrogen 9, Creatinine 0.66, Estimat Glomerular Filtration Rate > 60, BUN/Creatinine Ratio 14, Glucose Level 81, Calcium Level 9.4, Corrected Calcium 10.2H, Total Bilirubin 0.3, Aspartate Amino Transf (AST/SGOT) 18, Alanine Aminotransferase (ALT/SGPT) 20, Alkaline Phosphatase 110, Total Protein 7.4, Albumin 3.0L, Smear Scan 02/06/19 10:55: Glucometer 129H 02/06/19 15:56: Glucometer 153H 02/06/19 20:40: Glucometer 155H 02/07/19 05:43: Glucometer 102 02/07/19 05:45: White Blood Count 9.1, Red Blood Count 3.51L, Hemoglobin 10.3L, Hematocrit 32L, Mean Corpuscular Volume 90, Mean Corpuscular Hemoglobin 29, Mean Corpuscular Hemoglobin Concent 33, Red Cell Distribution Width 13.7, Platelet Count 354, Mean Platelet Volume 7.7, Neutrophils (%) (Auto) 51, Lymphocytes (%) (Auto) 34, Monocytes (%) (Auto) 14H, Eosinophils (%) (Auto) 1, Basophils (%) (Auto) 0, Neutrophils # (Auto) 4.6, Lymphocytes # (Auto) 3.1, Monocytes # (Auto) 1.3H, Eosinophils # (Auto) 0.1, Basophils # (Auto) 0.0, Sodium Level 136, Potassium Level 3.9, Chloride Level 103, Carbon Dioxide Level 22, Anion Gap 11, Blood Urea Nitrogen 13, Creatinine 0.64, Estimat Glomerular Filtration Rate > 60, BUN/Creatinine Ratio 20, Glucose Level 100, Calcium Level 9.2, Corrected Calcium 9.9, Total Bilirubin 0.2, Aspartate Amino Transf (AST/SGOT) 22, Alanine Aminotransferase (ALT/SGPT) 22, Alkaline Phosphatase 119, Total Protein 7.7, Albumin 3.1L 02/07/19 10:51: Glucometer 234H Microbiology 01/31/19 Blood Culture - Preliminary, Resulted Probable Pseudomonas 02/01/19 Gram Stain - Final, Complete 02/01/19 Sputum Culture - Final, Complete Usual upper respiratory aaron 02/01/19 Urine Culture - Final, Complete Pseudomonas aeruginosa Pending Labs Microbiology Date/Time Source Procedure Growth Status 01/31/19 20:30 Port Picc Blood Culture - Preliminary Probable Pseudomonas Resulted 01/31/19 20:25 Peripheral Rt Hand Blood Culture - Final Pseudomonas aeruginosa Complete 01/10/19 10:03 Peripheral Lt Ac Blood Culture - Final No growth Complete 01/10/19 10:00 Port Picc Blood Culture - Final No growth Complete 01/10/19 09:54 Peripheral Rt Ac Blood Culture - Final No growth Complete 02/01/19 16:04 Sputum Expectorated Gram Stain - Final Complete 02/01/19 16:04 Sputum Culture - Final Usual upper respiratory aaron Complete 01/10/19 10:14 Sputum Tracheostomy Gram Stain - Final Complete 01/10/19 10:14 Sputum Culture - Final Usual upper respiratory aaron YEAST Complete 01/10/19 10:00 Nasal MRSA Screen - Final MRSA not isolated Complete 02/01/19 10:15 Urine Clean Catch Urine Culture - Final Pseudomonas aeruginosa Complete 01/31/19 20:55 Urine Indwelling Cath ([facility]) Urine Culture - Final Pseudomonas aeruginosa Complete Laboratory Tests 01/09/19 16:14: Lab Scanned Report Referred Lab Report 01/09/19 18:17: Glucometer 96 01/10/19 00:00: Glucometer 175 01/10/19 05:14: Glucometer 120 01/10/19 05:17: White Blood Count 6.8, Red Blood Count 3.33, Hemoglobin 10.1, Hematocrit 32, Mean Corpuscular Volume 96, Mean Corpuscular Hemoglobin 30, Mean Corpuscular Hemoglobin Concent 32, Red Cell Distribution Width 14.9, Platelet Count 208, Mean Platelet Volume 8.5, Neutrophils (%) (Auto) 54, Lymphocytes (%) (Auto) 33, Monocytes (%) (Auto) 12, Eosinophils (%) (Auto) 0, Basophils (%) (Auto) 0, Neutrophils # (Auto) 3.7, Lymphocytes # (Auto) 2.3, Monocytes # (Auto) 0.8, Eosinophils # (Auto) 0.0, Basophils # (Auto) 0.0, Sodium Level 135, Potassium Level 4.6, Chloride Level 99, Carbon Dioxide Level 24, Anion Gap 12, Blood Urea Nitrogen 13, Creatinine 0.72, Estimat Glomerular Filtration Rate > 60, BUN/Creatinine Ratio 18, Glucose Level 119, Calcium Level 9.1, Corrected Calcium 9.8, Total Bilirubin 0.3, Aspartate Amino Transf (AST/SGOT) 26, Alanine Aminotransferase (ALT/SGPT) 19, Alkaline Phosphatase 178, B-Type Natriuretic Peptide 104.6, Total Protein 7.7, Albumin 3.1 01/10/19 09:57: Blood Gas Puncture Site RT BRACHIAL, Blood Gas Patient Temperature 96.8, Arterial Blood pH 7.46, Arterial Blood Partial Pressure CO2 39, Arterial Blood Partial Pressure O2 78, Arterial Blood HCO3 27, Arterial Blood Total CO2 28.6, Arterial Blood Oxygen Saturation 97, Arterial Blood Base Excess 3.5, Jeremiah Test YES-POS, Blood Gas Ventilator Setting NO, Blood Gas Inspired Oxygen TRACH 6 L 28% 01/10/19 10:10: Urine Color YELLOW, Urine Clarity CLEAR, Urine pH 8, Urine Specific [place] 1.010, Urine Protein 1+, Urine Glucose (UA) NEGATIVE, Urine Ketones NEGATIVE, Urine Nitrite NEGATIVE, Urine Bilirubin NEGATIVE, Urine Urobilinogen 4, Urine Leukocyte Esterase NEGATIVE, Urine RBC (Auto) NEGATIVE, Urine RBC RARE, Urine WBC NONE, Urine Squamous Epithelial Cells RARE, Urine Crystals NONE, Urine Bacteria NEGATIVE, Urine Casts PRESENT, Urine Hyaline Casts RARE, Urine Mucus SMALL, Urine Culture Indicated NO 01/10/19 11:50: Glucometer 239 01/10/19 17:35: Vancomycin Level Trough 16.0 01/10/19 18:32: Glucometer 281 01/11/19 00:14: Glucometer 244 01/11/19 04:52: Glucometer 78 01/11/19 05:00: White Blood Count 6.5, Red Blood Count 3.30, Hemoglobin 10.1, Hematocrit 32, Mean Corpuscular Volume 96, Mean Corpuscular Hemoglobin 31, Mean Corpuscular Hemoglobin Concent 32, Red Cell Distribution Width 15.1, Platelet Count 225, Mean Platelet Volume 8.6, Neutrophils (%) (Auto) 53, Lymphocytes (%) (Auto) 31, Monocytes (%) (Auto) 14, Eosinophils (%) (Auto) 2, Basophils (%) (Auto) 0, Neutrophils # (Auto) 3.4, Lymphocytes # (Auto) 2.0, Monocytes # (Auto) 0.9, Eosinophils # (Auto) 0.1, Basophils # (Auto) 0.0, Sodium Level 140, Potassium Level 3.8, Chloride Level 105, Carbon Dioxide Level 25, Anion Gap 10, Blood Urea Nitrogen 13, Creatinine 0.64, Estimat Glomerular Filtration Rate > 60, BUN/Creatinine Ratio 20, Glucose Level 82, Calcium Level 9.2, Phosphorus Level 3.5, Magnesium Level 2.2 01/11/19 11:58: Glucometer 104 01/11/19 18:46: Glucometer 150 01/12/19 00:25: Glucometer 305 01/12/19 01:54: Glucometer 335 01/12/19 05:19: Glucometer 155 01/12/19 05:30: White Blood Count 7.3, Red Blood Count 3.43, Hemoglobin 10.5, Hematocrit 33, Mean Corpuscular Volume 97, Mean Corpuscular Hemoglobin 31, Mean Corpuscular Hemoglobin Concent 31, Red Cell Distribution Width 15.1, Platelet Count 243, Mean Platelet Volume 9.1, Neutrophils (%) (Auto) 51, Lymphocytes (%) (Auto) 34, Monocytes (%) (Auto) 13, Eosinophils (%) (Auto) 2, Basophils (%) (Auto) 0, Neutrophils # (Auto) 3.7, Lymphocytes # (Auto) 2.4, Monocytes # (Auto) 0.9, Eosinophils # (Auto) 0.1, Basophils # (Auto) 0.0, Sodium Level 138, Potassium Level 3.9, Chloride Level 104, Carbon Dioxide Level 23, Anion Gap 11, Blood Urea Nitrogen 16, Creatinine 0.67, Estimat Glomerular Filtration Rate > 60, BUN/Creatinine Ratio 24, Glucose Level 126, Calcium Level 9.2, Phosphorus Level 2.9, Magnesium Level 1.9 01/12/19 08:45: Glucometer 149 01/12/19 11:23: Glucometer 115 01/12/19 17:42: Glucometer 165 01/12/19 23:18: Glucometer 140 01/13/19 05:05: White Blood Count 7.4, Red Blood Count 3.31, Hemoglobin 10.1, Hematocrit 33, Mean Corpuscular Volume 99, Mean Corpuscular Hemoglobin 31, Mean Corpuscular Hemoglobin Concent 31, Red Cell Distribution Width 15.3, Platelet Count 235, Mean Platelet Volume 8.6, Neutrophils (%) (Auto) 52, Lymphocytes (%) (Auto) 32, Monocytes (%) (Auto) 14, Eosinophils (%) (Auto) 2, Basophils (%) (Auto) 0, Neutrophils # (Auto) 3.8, Lymphocytes # (Auto) 2.4, Monocytes # (Auto) 1.1, Eosinophils # (Auto) 0.1, Basophils # (Auto) 0.0, Sodium Level 141, Potassium Level 3.7, Chloride Level 107, Carbon Dioxide Level 25, Anion Gap 9, Blood Urea Nitrogen 8, Creatinine 0.65, Estimat Glomerular Filtration Rate > 60, BUN/Creatinine Ratio 12, Glucose Level 72, Calcium Level 9.4, Phosphorus Level 3.3, Magnesium Level 1.7 01/13/19 11:55: Glucometer 158 01/13/19 19:02: Glucometer 230 01/13/19 20:46: Glucometer 238 01/14/19 05:45: White Blood Count 7.1, Red Blood Count 3.27, Hemoglobin 10.0, Hematocrit 32, Mean Corpuscular Volume 99, Mean Corpuscular Hemoglobin 31, Mean Corpuscular Hemoglobin Concent 31, Red Cell Distribution Width 15.5, Platelet Count 235, Mean Platelet Volume 8.5, Neutrophils (%) (Auto) 51, Lymphocytes (%) (Auto) 33, Monocytes (%) (Auto) 14, Eosinophils (%) (Auto) 1, Basophils (%) (Auto) 0, Neutrophils # (Auto) 3.6, Lymphocytes # (Auto) 2.4, Monocytes # (Auto) 1.0, Eosinophils # (Auto) 0.1, Basophils # (Auto) 0.0, Sodium Level 142, Potassium Level 3.6, Chloride Level 107, Carbon Dioxide Level 23, Anion Gap 12, Blood Urea Nitrogen 9, Creatinine 0.65, Estimat Glomerular Filtration Rate > 60, BUN/Creatinine Ratio 14, Glucose Level 100, Calcium Level 9.3, Magnesium Level 1.9 01/14/19 10:49: Glucometer 171 01/14/19 15:13: Glucometer 88 01/14/19 20:36: Glucometer 94 01/15/19 05:29: Glucometer 97 01/15/19 10:45: Glucometer 105 01/15/19 15:45: Glucometer 92 01/15/19 21:44: Glucometer 231 01/16/19 06:00: Glucometer 129 01/16/19 11:01: Glucometer 158 01/16/19 15:32: Glucometer 181 01/16/19 20:08: Glucometer 275 01/17/19 05:28: Glucometer 93 01/17/19 05:54: Glucometer 97 01/17/19 06:31: White Blood Count 6.0, Red Blood Count 3.37, Hemoglobin 10.4, Hematocrit 33, Mean Corpuscular Volume 97, Mean Corpuscular Hemoglobin 31, Mean Corpuscular Hemoglobin Concent 32, Red Cell Distribution Width 14.7, Platelet Count 236, Mean Platelet Volume 8.3, Neutrophils (%) (Auto) 52, Lymphocytes (%) (Auto) 32, Monocytes (%) (Auto) 15, Eosinophils (%) (Auto) 1, Basophils (%) (Auto) 0, Neutrophils # (Auto) 3.1, Lymphocytes # (Auto) 1.9, Monocytes # (Auto) 0.9, Eosinophils # (Auto) 0.1, Basophils # (Auto) 0.0, Sodium Level 143, Potassium Level 3.1, Chloride Level 109, Carbon Dioxide Level 23, Anion Gap 11, Blood Urea Nitrogen 8, Creatinine 0.62, Estimat Glomerular Filtration Rate > 60, BUN/Creatinine Ratio 13, Glucose Level 89, Calcium Level 9.5, Corrected Calcium 10.1, Total Bilirubin 0.3, Aspartate Amino Transf (AST/SGOT) 15, Alanine Aminotransferase (ALT/SGPT) 21, Alkaline Phosphatase 164, Total Protein 7.3, Albumin 3.2 01/17/19 11:01: Glucometer 232 01/17/19 15:50: Glucometer 236 01/17/19 20:53: Glucometer 202 01/18/19 04:56: Glucometer 80 01/18/19 10:44: Glucometer 174 01/18/19 15:18: Glucometer 274 01/18/19 20:06: Glucometer 237 01/19/19 05:28: Glucometer 108 01/19/19 11:27: Glucometer 124 01/19/19 15:18: Glucometer 279 01/19/19 20:39: Glucometer 169 01/20/19 11:01: Glucometer 229 01/20/19 15:27: Glucometer 217 01/20/19 21:18: Glucometer 134 01/21/19 05:33: Glucometer 118 01/21/19 11:17: Glucometer 334 01/21/19 15:31: Glucometer 128 01/21/19 20:00: Glucometer 207 01/22/19 04:15: White Blood Count 7.5, Red Blood Count 3.56, Hemoglobin 10.7, Hematocrit 34, Mean Corpuscular Volume 96, Mean Corpuscular Hemoglobin 30, Mean Corpuscular Hemoglobin Concent 32, Red Cell Distribution Width 14.8, Platelet Count 242, Mean Platelet Volume 7.9, Neutrophils (%) (Auto) 55, Lymphocytes (%) (Auto) 28, Monocytes (%) (Auto) 15, Eosinophils (%) (Auto) 2, Basophils (%) (Auto) 0, Neutrophils # (Auto) 4.1, Lymphocytes # (Auto) 2.1, Monocytes # (Auto) 1.1, Eosinophils # (Auto) 0.2, Basophils # (Auto) 0.0, Sodium Level 142, Potassium Level 3.5, Chloride Level 106, Carbon Dioxide Level 22, Anion Gap 14, Blood Urea Nitrogen 8, Creatinine 0.65, Estimat Glomerular Filtration Rate > 60, BUN/Creatinine Ratio 12, Glucose Level 78, Calcium Level 9.8, Corrected Calcium 10.4, Total Bilirubin 0.3, Aspartate Amino Transf (AST/SGOT) 13, Alanine Aminotransferase (ALT/SGPT) 17, Alkaline Phosphatase 149, Total Protein 8.1, Albumin 3.2 01/22/19 10:59: Glucometer 164 01/22/19 15:26: Glucometer 204 01/22/19 20:48: Glucometer 169 01/23/19 05:49: Glucometer 97 01/23/19 10:49: Glucometer 120 01/23/19 16:46: Glucometer 138 01/23/19 21:01: Glucometer 173 01/24/19 05:54: Glucometer 109 01/24/19 10:54: Glucometer 141 01/24/19 15:18: Glucometer 98 01/24/19 19:59: Glucometer 253 01/25/19 05:24: Glucometer 103 01/25/19 11:17: Glucometer 178 01/25/19 15:58: Glucometer 211 01/25/19 20:40: Glucometer 203 01/26/19 06:01: White Blood Count 8.2, Red Blood Count 3.47, Hemoglobin 10.3, Hematocrit 33, Mean Corpuscular Volume 95, Mean Corpuscular Hemoglobin 30, Mean Corpuscular Hemoglobin Concent 31, Red Cell Distribution Width 14.3, Platelet Count 221, Mean Platelet Volume 8.2, Neutrophils (%) (Auto) 51, Lymphocytes (%) (Auto) 35, Monocytes (%) (Auto) 13, Eosinophils (%) (Auto) 1, Basophils (%) (Auto) 0, Neutrophils # (Auto) 4.2, Lymphocytes # (Auto) 2.9, Monocytes # (Auto) 1.0, Eosinophils # (Auto) 0.1, Basophils # (Auto) 0.0, Sodium Level 139, Potassium Level 3.6, Chloride Level 107, Carbon Dioxide Level 23, Anion Gap 9, Blood Urea Nitrogen 8, Creatinine 0.63, Estimat Glomerular Filtration Rate > 60, BUN/Creatinine Ratio 13, Glucose Level 106, Calcium Level 9.7, Corrected Calcium 10.3, Total Bilirubin 0.3, Aspartate Amino Transf (AST/SGOT) 10, Alanine Aminotransferase (ALT/SGPT) 16, Alkaline Phosphatase 150, Total Protein 7.3, Albumin 3.3 01/26/19 06:15: Glucometer 108 01/26/19 10:50: Glucometer 188 01/26/19 15:20: Glucometer 209 01/26/19 20:25: Glucometer 227 01/27/19 05:34: Glucometer 99 01/27/19 11:36: Glucometer 132 01/27/19 15:46: Glucometer 232 01/27/19 20:48: Glucometer 190 01/28/19 06:17: Glucometer 115 01/28/19 07:53: White Blood Count 7.9, Red Blood Count 3.50, Hemoglobin 10.5, Hematocrit 33, Mean Corpuscular Volume 93, Mean Corpuscular Hemoglobin 30, Mean Corpuscular Hemoglobin Concent 32, Red Cell Distribution Width 14.0, Platelet Count 239, Mean Platelet Volume 7.9, Neutrophils (%) (Auto) 58, Lymphocytes (%) (Auto) 28, Monocytes (%) (Auto) 13, Eosinophils (%) (Auto) 1, Basophils (%) (Auto) 0, Neutrophils # (Auto) 4.6, Lymphocytes # (Auto) 2.2, Monocytes # (Auto) 1.0, Eosinophils # (Auto) 0.1, Basophils # (Auto) 0.0, Sodium Level 138, Potassium Level 4.0, Chloride Level 106, Carbon Dioxide Level 20, Anion Gap 12, Blood Urea Nitrogen 8, Creatinine 0.65, Estimat Glomerular Filtration Rate > 60, BUN/Creatinine Ratio 12, Glucose Level 109, Calcium Level 9.7, Phosphorus Level 3.5, Magnesium Level 1.7, B-Type Natriuretic Peptide 88.3 01/28/19 11:07: Glucometer 225 01/28/19 15:08: Glucometer 202 01/28/19 20:24: Glucometer 135 01/29/19 06:25: Glucometer 106 01/29/19 11:37: Glucometer 168 01/29/19 17:07: Glucometer 146 01/29/19 20:57: Glucometer 217 01/30/19 06:05: Glucometer 113 01/30/19 06:10: White Blood Count 8.2, Red Blood Count 3.60, Hemoglobin 10.7, Hematocrit 34, Mean Corpuscular Volume 93, Mean Corpuscular Hemoglobin 30, Mean Corpuscular Hemoglobin Concent 32, Red Cell Distribution Width 14.0, Platelet Count 258, Mean Platelet Volume 8.0, Neutrophils (%) (Auto) 58, Lymphocytes (%) (Auto) 27, Monocytes (%) (Auto) 14, Eosinophils (%) (Auto) 2, Basophils (%) (Auto) 0, N eutrophils # (Auto) 4.7, Lymphocytes # (Auto) 2.2, Monocytes # (Auto) 1.1, Eosinophils # (Auto) 0.1, Basophils # (Auto) 0.0, Sodium Level 142, Potassium Level 3.7, Chloride Level 108, Carbon Dioxide Level 21, Anion Gap 13, Blood Urea Nitrogen 9, Creatinine 0.65, Estimat Glomerular Filtration Rate > 60, BUN/Creatinine Ratio 14, Glucose Level 117, Calcium Level 9.8, Corrected Calcium 10.4, Total Bilirubin 0.2, Aspartate Amino Transf (AST/SGOT) 12, Alanine Aminotransferase (ALT/SGPT) 18, Alkaline Phosphatase 156, Total Protein 7.6, Albumin 3.3 01/30/19 11:01: Glucometer 209 01/30/19 15:15: Glucometer 162 01/30/19 20:31: Glucometer 236 01/31/19 05:59: Glucometer 140 01/31/19 11:33: Glucometer 165 01/31/19 15:23: Glucometer 309 01/31/19 19:29: Glucometer 130 01/31/19 20:30: White Blood Count 15.1, Red Blood Count 3.62, Hemoglobin 10.9, Hematocrit 33, Mean Corpuscular Volume 91, Mean Corpuscular Hemoglobin 30, Mean Corpuscular Hemoglobin Concent 33, Red Cell Distribution Width 13.7, Platelet Count 270, Mean Platelet Volume 8.0, Neutrophils (%) (Auto) 90, Lymphocytes (%) (Auto) 6, Monocytes (%) (Auto) 4, Eosinophils (%) (Auto) 0, Basophils (%) (Auto) 0, Neutrophils # (Auto) 13.5, Lymphocytes # (Auto) 0.9, Monocytes # (Auto) 0.6, Eosinophils # (Auto) 0.0, Basophils # (Auto) 0.0, Neutrophils % (Manual) 75, Lymphocytes % (Manual) 4, Monocytes % (Manual) 6, Eosinophils % (Manual) 1, Band Neutrophils 15, Blood Morphology Comment NORMAL, Sodium Level 133, Potassium Level 4.2, Chloride Level 101, Carbon Dioxide Level 18, Anion Gap 14, Blood Urea Nitrogen 10, Creatinine 0.64, Estimat Glomerular Filtration Rate > 60, BU N/Creatinine Ratio 16, Glucose Level 130, Lactic Acid Level 3.03, Calcium Level 9.4, Corrected Calcium 9.9, Total Bilirubin 0.3, Aspartate Amino Transf (AST/SGOT) 15, Alanine Aminotransferase (ALT/SGPT) 20, Alkaline Phosphatase 164, Total Protein 7.7, Albumin 3.4 01/31/19 20:50: Glucometer 157 01/31/19 22:40: Lactic Acid Level 2.78 02/01/19 06:00: Glucometer 127 02/01/19 06:02: Lactic Acid Level 1.76, White Blood Count 25.0, Red Blood Count 3.05, Hemoglobin 9.2, Hematocrit 28, Mean Corpuscular Volume 92, Mean Corpuscular Hemoglobin 30, Mean Corpuscular Hemoglobin Concent 33, Red Cell Distribution Width 13.7, Platelet Count 249, Mean Platelet Volume 7.8, Neutrophils (%) (Auto) 79, Lymphocytes (%) (Auto) 10, Monocytes (%) (Auto) 11, Eosinophils (%) (Auto) 0, Basophils (%) (Auto) 0, Neutrophils # (Auto) 19.7, Lymphocytes # (Auto) 2.5, Monocytes # (Auto) 2.7, Eosinophils # (Auto) 0.0, Basophils # (Auto) 0.0, Sodium Level 132, Potassium Level 3.9, Chloride Level 103, Carbon Dioxide Level 18, Anion Gap 11, Blood Urea Nitrogen 11, Creatinine 0.63, Estimat Glomerular Filtration Rate > 60, BUN/Creatinine Ratio 17, Glucose Level 122, Calcium Level 8.3, Corrected Calcium 9.2, Magnesium Level 1.4, Total Bilirubin 0.5, Aspartate Amino Transf (AST/SGOT) 16, Alanine Aminotransferase (ALT/SGPT) 18, Alkaline Phosphatase 138, B-Type Natriuretic Peptide 519.7, Total Protein 6.3, Albumin 2.9 02/01/19 10:15: Urine Color YELLOW, Urine Clarity CLEAR, Urine pH 8, Urine Specific [place] 1.010, Urine Protein 1+, Urine Glucose (UA) NEGATIVE, Urine Ketones NEGATIVE, Urine Nitrite NEGATIVE, Urine Bilirubin NEGATIVE, Urine Urobilinogen 1, Urine Leukocyte Esterase 3+, Urine RBC (Auto) 3+, Urine RBC 5-10, Urine WBC 25-50, Urine Squamous Epithelial Cells NONE, Urine Crystals NONE, Urine Bacteria NEGATIVE, Urine Casts NONE, Urine Mucus NEGATIVE, Urine Culture Indicated YES 02/01/19 10:51: Glucometer 212 02/01/19 15:45: Glucometer 224 02/01/19 20:59: Glucometer 178 02/02/19 06:23: Glucometer 93 02/02/19 06:43: White Blood Count 19.1, Red Blood Count 3.06, Hemoglobin 9.2, Hematocrit 29, Mean Corpuscular Volume 93, Mean Corpuscular Hemoglobin 30, Mean Corpuscular Hemoglobin Concent 32, Red Cell Distribution Width 13.7, Platelet Count 236, Mean Platelet Volume 8.4, Neutrophils (%) (Auto) 74, Lymphocytes (%) (Auto) 17, Monocytes (%) (Auto) 9, Eosinophils (%) (Auto) 0, Basophils (%) (Auto) 0, Neutrophils # (Auto) 14.3, Lymphocytes # (Auto) 3.2, Monocytes # (Auto) 1.7, Eosinophils # (Auto) 0.0, Basophils # (Auto) 0.0, Neutrophils % (Manual) 64, Lymphocytes % (Manual) 21, Monocytes % (Manual) 8, Eosinophils % (Manual) 0, Basophils % (Manual) 0, Band Neutrophils 7, Blood Morphology Comment NORMAL, Sodium Level 141, Potassium Level 3.5, Chloride Level 110, Carbon Dioxide Level 21, Anion Gap 10, Blood Urea Nitrogen 7, Creatinine 0.60, Estimat Glomerular Filtration Rate > 60, BUN/Creatinine Ratio 12, Glucose Level 89, Calcium Level 8.7, Corrected Calcium 9.6, Total Bilirubin 0.2, Aspartate Amino Transf (AST/SGOT) 13, Alanine Aminotransferase (ALT/SGPT) 15, Alkaline Phosphatase 118, Total Protein 6.5, Albumin 2.9 02/02/19 10:52: Glucometer 94 02/02/19 15:26: Glucometer 181 02/02/19 20:14: Glucometer 178 02/03/19 06:39: Glucometer 87 02/03/19 06:46: White Blood Count 14.4, Red Blood Count 3.22, Hemoglobin 9.5, Hematocrit 30, Mean Corpuscular Volume 93, Mean Corpuscular Hemoglobin 30, Mean Corpuscular Hemoglobin Concent 32, Red Cell Distribution Width 13.7, Platelet Count 258, Mean Platelet Volume 8.0, Neutrophils (%) (Auto) 72, Lymphocytes (%) (Auto) 19, Monocytes (%) (Auto) 9, Eosinophils (%) (Auto) 1, Basophils (%) (Auto) 0, Neutrophils # (Auto) 10.3, Lymphocytes # (Auto) 2.7, Monocytes # (Auto) 1.3, Eosinophils # (Auto) 0.1, Basophils # (Auto) 0.0, Sodium Level 139, Potassium Level 3.7, Chloride Level 106, Carbon Dioxide Level 24, Anion Gap 9, Blood Urea Nitrogen 7, Creatinine 0.55, Estimat Glomerular Filtration Rate > 60, BUN/Creatinine Ratio 13, Glucose Level 87, Calcium Level 9.0, Corrected Calcium 9.8, Total Bilirubin 0.2, Aspartate Amino Transf (AST/SGOT) 14, Alanine Aminotransferase (ALT/SGPT) 15, Alkaline Phosphatase 131, Total Protein 6.9, Albumin 3.0 02/03/19 11:23: Glucometer 139 02/03/19 15:21: Glucometer 223 02/03/19 20:01: Glucometer 186 02/04/19 04:52: Glucometer 104 02/04/19 05:22: White Blood Count 11.7, Red Blood Count 3.45, Hemoglobin 10.2, Hematocrit 31, Mean Corpuscular Volume 91, Mean Corpuscular Hemoglobin 30, Mean Corpuscular Hemoglobin Concent 33, Red Cell Distribution Width 13.5, Platelet Count 330, Mean Platelet Volume 8.0, Neutrophils (%) (Auto) 65, Lymphocytes (%) (Auto) 24, Monocytes (%) (Auto) 11, Eosinophils (%) (Auto) 1, Basophils (%) (Auto) 0, Neutrophils # (Auto) 7.6, Lymphocytes # (Auto) 2.8, Monocytes # (Auto) 1.3, Eosinophils # (Auto) 0.1, Basophils # (Auto) 0.0, Sodium Level 138, Potassium Level 3.5, Chloride Level 103, Carbon Dioxide Level 22, Anion Gap 13, Blood Urea Nitrogen 7, Creatinine 0.62, Estimat Glomerular Filtration Rate > 60, BUN/Creatinine Ratio 11, Glucose Level 95, Calcium Level 9.4, Corrected Calcium 10.1, Total Bilirubin 0.2, Aspartate Amino Transf (AST/SGOT) 16, Alanine Aminotransferase (ALT/SGPT) 19, Alkaline Phosphatase 127, Total Protein 7.6, Albumin 3.1 02/04/19 10:44: Glucometer 148 02/04/19 15:34: Glucometer 208 02/04/19 20:08: Glucometer 247 02/05/19 05:31: Glucometer 104 02/05/19 06:02: White Blood Count 10.5, Red Blood Count 3.51, Hemoglobin 10.3, Hematocrit 32, Mean Corpuscular Volume 91, Mean Corpuscular Hemoglobin 29, Mean Corpuscular Hemoglobin Concent 32, Red Cell Distribution Width 13.6, Platelet Count 324, Mean Platelet Volume 7.8, Neutrophils (%) (Auto) 55, Lymphocytes (%) (Auto) 31, Monocytes (%) (Auto) 13, Eosinophils (%) (Auto) 1, Basophils (%) (Auto) 1, Neutrophils # (Auto) 5.8, Lymphocytes # (Auto) 3.2, Monocytes # (Auto) 1.4, Eosinophils # (Auto) 0.1, Basophils # (Auto) 0.1, Sodium Level 136, Potassium Level 4.1, Chloride Level 104, Carbon Dioxide Level 21, Anion Gap 11, Blood Urea Nitrogen 7, Creatinine 0.60, Estimat Glomerular Filtration Rate > 60, BUN/Creatinine Ratio 12, Glucose Level 99, Calcium Level 9.3, Corrected Calcium 10.1, Total Bilirubin 0.3, Aspartate Amino Transf (AST/SGOT) 17, Alanine Aminotransferase (ALT/SGPT) 19, Alkaline Phosphatase 122, Total Protein 7.3, Albumin 3.0 02/05/19 10:55: Glucometer 145 02/05/19 15:38: Glucometer 138 02/05/19 20:06: Glucometer 130 02/06/19 05:06: Glucometer 95 02/06/19 05:33: White Blood Count 11.7, Red Blood Count 3.37, Hemoglobin 9.9, Hematocrit 31, Mean Corpuscular Volume 91, Mean Corpuscular Hemoglobin 29, Mean Corpuscular Hemoglobin Concent 32, Red Cell Distribution Width 13.6, Platelet Count 317, Mean Platelet Volume 7.9, Neutrophils (%) (Auto) 56, Lymphocytes (%) (Auto) 29, Monocytes (%) (Auto) 14, Eosinophils (%) (Auto) 1, Basophils (%) (Auto) 0, Neutrophils # (Auto) 6.5, Lymphocytes # (Auto) 3.4, Monocytes # (Auto) 1.6, Eos inophils # (Auto) 0.1, Basophils # (Auto) 0.0, Sodium Level 134, Potassium Level 4.0, Chloride Level 100, Carbon Dioxide Level 24, Anion Gap 10, Blood Urea Nitrogen 9, Creatinine 0.66, Estimat Glomerular Filtration Rate > 60, BUN/Creatinine Ratio 14, Glucose Level 81, Calcium Level 9.4, Corrected Calcium 10.2, Total Bilirubin 0.3, Aspartate Amino Transf (AST/SGOT) 18, Alanine Amino transferase (ALT/SGPT) 20, Alkaline Phosphatase 110, Total Protein 7.4, Albumin 3.0, Smear Scan 02/06/19 10:55: Glucometer 129 02/06/19 15:56: Glucometer 153 02/06/19 20:40: Glucometer 155 02/07/19 05:43: Glucometer 102 02/07/19 05:45: White Blood Count 9.1, Red Blood Count 3.51, Hemoglobin 10.3, Hematocrit 32, Mean Corpuscular Volume 90, Mean Corpuscular Hemoglobin 29, Mean Corpuscular Hemoglobin Concent 33, Red Cell Distribution Width 13.7, Platelet Count 354, Mean Platelet Volume 7.7, Neutrophils (%) (Auto) 51, Lymphocytes (%) (Auto) 34, Monocytes (%) (Auto) 14, Eosinophils (%) (Auto) 1, Basophils (%) (Auto) 0, Neutrophils # (Auto) 4.6, Lymphocytes # (Auto) 3.1, Monocytes # (Auto) 1.3, Eosinophils # (Auto) 0.1, Basophils # (Auto) 0.0, Sodium Level 136, Potassium Level 3.9, Chloride Level 103, Carbon Dioxide Level 22, Anion Gap 11, Blood Urea Nitrogen 13, Creatinine 0.64, Estimat Glomerular Filtration Rate > 60, BUN/Creatinine Ratio 20, Glucose Level 100, Calcium Level 9.2, Corrected Calcium 9.9, Total Bilirubin 0.2, Aspartate Amino Transf (AST/SGOT) 22, Alanine Aminotransferase (ALT/SGPT) 22, Alkaline Phosphatase 119, Total Protein 7.7, Albumin 3.1 02/07/19 10:51: Glucometer 234 Discharge Home Medications: Active Scripts Active Carefine Pen Needle ([place], Insulin Disposable) 1 Each Dis.needle Each MC BID Levemir Flextouch (Insulin Detemir) 100 Unit/1 Ml Insuln.pen 15 Unit SQ BID Melatonin 3 Mg Tablet 9 Mg PO HS Lotrimin AF (Miconazole Nitrate) 90 Gm Powder 0 Gm TOP BID Famotidine 20 Mg Tablet 20 Mg PO BID Senna-Time S Tablet (Sennosides/Docusate Sodium) 1 Each Tablet 2 Ea PO BID Montelukast Sodium 10 Mg Tablet 10 Mg PO HS Klor-Con 10 (Potassium Chloride) 10 Meq Tablet.er 10 Meq PO DAILY@0700 Phospha 250 Neutral Tablet (Phosphate) 1 Ea Tablet 1 Ea PO BID Dakin's (Sodium Hypochlorite) 473 Ml Solution 0 Ml TOP DAILY Alprazolam 0.5 Mg Tablet 0.5 Mg PO HS PRN Quetiapine Fumarate 25 Mg Tablet 50 Mg PO HS Citalopram HBr (Citalopram Hydrobromide) 10 Mg Tablet 10 Mg PO DAILY Tramadol HCl 50 Mg Tablet 50 Mg PO BID PRN Enoxaparin Sodium 40 Mg/0.4 Ml Syringe 40 Mg SC DAILY@1400 Baclofen 10 Mg Tablet 5 Mg PO Q12HR PRN Midodrine HCl 10 Mg Tablet 10 Mg PO TID Iprat-Albut 0.5-3(2.5) mg/3 ml (Ipratropium/Albuterol Sulfate) 3 Ml Ampul.neb 3 Ml INH RTBID Levofloxacin 750 Mg Tablet 750 Mg PO DAILY@1100 Loratadine 10 Mg Tablet 10 Mg PO DAILY Instructions to patient/family Please see electronic discharge instructions given to patient. Diagnosis/Problems Diagnosis/Problems (1) Sepsis Status: Acute Qualifiers: Qualified Codes: A41.52 - Sepsis due to Pseudomonas (2) Spinal cord injury at C1-C4 level Status: Chronic Qualifiers: Qualified Codes: S14.101S - Unspecified injury at C1 level of cervical spinal cord, sequela (3) Anemia Status: Chronic Qualifiers: Qualified Codes: D64.9 - Anemia, unspecified (4) Anxiety Status: Chronic (5) Chronic pain Status: Chronic Permanent Comment: Low back pain Last Edited By: Georgia Zambrano on Sep 03, 2017 12:27 (6) Neurogenic bladder (7) HLD (hyperlipidemia) Status: Chronic (8) Tracheostomy dependent (9) DVT prophylaxis Status: Acute (10) Post-traumatic quadriplegia (11) Closed right scapular fracture (12) Right rib fracture (13) Right pulmonary contusion (14) Decubitus ulcer of coccygeal region, stage 4 (15) Shock due to spinal cord injury (16) Diabetes mellitus (17) Elevated blood pressure reading Status: Acute (18) Hospital discharge follow-up (19) Septic prepatellar bursitis of left knee (20) septic bursa (21) Paresthesias Status: Acute (22) Uncontrolled diabetes mellitus Status: Chronic (23) Illicit drug use Status: Acute (24) Cellulitis Status: Acute (25) Hyperglycemia Status: Acute (26) Sepsis Status: Acute (27) Hypertension Status: Chronic (28) Type 2 diabetes mellitus with hyperglycemia Status: Chronic (29) PEG (percutaneous endoscopic gastrostomy) status (30) UTI (urinary tract infection) Status: Acute Qualifiers: (31) Gram-negative bacteremia Status: Acute Clinical Quality Measures DVT/VTE Risk/Contraindication: Risk Factor Score Per Nursin RFS Level Per Nursing on Admit: 4+=Very High MARGUERITE GAN DO Feb 07, 2019 08:39
--- NOTE | 2019-02-07 08:53 | Therapy Team Discharge Summary ---
Therapy Discharge Summary Discharge Recommendations Date of Discharge 02-07-19 Therapy D/C Recommendations: 24 hr Supervision Occupational Therapy Pt. has been seen by therapy to work on UE ROM, positioning, wound prevention, family training, and discharge planning. At time of discharge, pt. is able to actively move bilateral elbows in flexed position. With universal cuff, pt. is able to feed self with max assist. Pt. requires dependent assist x 1-2 with jareth lift and transfers. Spouse has been educated on care needs at home, and family has obtained a hospital bed, wheelchair, and jareth lift. Recommend follow up therapy services, as well as home health services and home health assist. Decreased Activ Tolerance, Decreased UE Strength, Dependent Transfers, Impaired Bed Mobility, Impaired Coordination, Impaired Funct Balance, Impaired I ADL's, Impaired Self-Care Skills, Restricted Funct UE ROM PT Deputy K 9 Goals Penitentiary Goals PT Penitentiary Goals Time Frame: Jan 31, 2019 Transfers (B,C,W/C) (FIM): 1 Sit to Lying (QC): 1 Lying-Sitting on Side/Bed(QC): 1 Rollin Chair/Tye-df-Qxxwa Xfer(QC): 1 Wheelchair (FIM): 5 (if he can get a power chair) Distance: 150' Wheelchair Level of Assist: 5 Wheel 50 feet with 2 turns (QC: 4 OT Penitentiary Goals Deputy K 9 Goals Time Frame: Feb 14, 2019 Eating (FIM): 3 (Not met) Eating (QC): 3 (not met) Groomin (not met) Oral Hygiene (QC): 3 (not met) Upper Body Dressing(FIM): 3 (not met) Additional Goals: 3-ImproveStrength/Estella 1=Demonstrate adherence to instructed precautions during ADL tasks. 2=Patient will verbalize/demonstrate understanding of assistive devices/modifications for ADL. 3=Patient will improve strength/tolerance for activity to enable patient to perform ADL's. Speech Penitentiary Goals Deputy K 9 Goals The patient will improve his cognitive status for a safe return home. The patient will maintain adequate nutrition/hydration via safe effective swallow function and/or PEG tube. SHEYLA PETERSON OT Feb 07, 2019 08:53
[2019-02-07] MEDS: DAKIN'S 1/4 STRENGTH (0.125%) 473 ML BTL TOP SCH (09:00)
[2019-02-07] MEDS: SENNA W/DOCUSATE (SENOKOT S) TABLET PO SCH (09:00)
[2019-02-07] MEDS: MICONAZOLE 2% POWDER (DESENEX AF) 90 GM TOP SCH (09:30)
--- NOTE | 2019-02-07 09:36 | Progress Note - Urology ---
Progress Note-Urology Progress Notes/Assess & Plan Progress/Assessment & Plan GOING HOME TODAY WITH PERRY. WILL SEE PRN Final Diagnosis NEUROGENIC BLADDER RUBIO NOVA MD Feb 07, 2019 09:36
[2019-02-07] MEDS: BACLOFEN 10 MG (LIORESAL) TAB PO PRN (09:52)
[2019-02-07] MEDS: RT-ALBUTEROL/IPRATROPIUM 3 ML (DUONEB) VIAL INH SCH (10:00)
[2019-02-07] MEDS: aCETylcysteine 20% (MUCOMYST) 30ML SOLN VIAL INH SCH (10:00)
--- NOTE | 2019-02-07 10:49 | Discharge Summary ---
[facility] 02/07/19 1049: Diagnosis/Chief Complaint Date of Admission Jan 09, 2019 at 16:14 Date of Discharge Feb 07 2019 Discharge Date: Feb 07, 2019 Admission Diagnosis Admission Diagnosis Assessment: 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 Nesbitt at [facility] 12/07/18 Rib plating on the right Closed right scapular fracture Diabetes mellitus PEG tube Trach dependent Anemia Hypertension DVT prophylaxis with Lovenox Neurogenic bladder Decubitus ulcer OJ Psychosis Depression Ileus I Discharge Diagnosis Assessment: 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 Nesbitt at [facility] 12/07/18 Rib plating on the right Closed right scapular fracture Diabetes mellitus [id number] requiring insulin now improved PEG tube status and likely will DC in the next several weeks Trach dependent s/p removal 01/26/19 Anemia Hypertension DVT prophylaxis with Lovenox Neurogenic bladder requiring Goodman catheter and urology recommends maintained to help heal decubitus ulcer in the meantime Decubitus ulcer s/p debridement but appears to need additional debridement prn if worsens OJ Psychosis resolved with Seroquel Depression placed on Celexa Ileus-resolved New onset fever 101.4 with abnormal urine in goodman bag placed sepsis order set in place with empiric broad spectrum abx initiated in meantime with sepsis now confirmed Pseudomonas bacteremia with UTI Discharge Summary Procedures: Removed Trach - 01/[address] James - 01/[address] García - 01/[address] James, Dr. García, Dr. Arcos Discharge Physical Examination Allergies: Coded Allergies: No Known Drug Allergies (Unverified , 08/25/10) Vitals & I&Os Vital Signs Date Time Temp Pulse Resp B/P (MAP) Pulse Ox O2 Delivery O2 Flow Rate FiO2 02/07/19 05:22 96.4 73 16 92/54 (67) 96 Room Air General Appearance: Alert, No Acute Distress HEENT: Mucous Memb Moist/[place] Respiratory: Clear to Auscultation Cardiovascular: Regular Rate Abdominal: Normal Bowel Sounds Extremities: No Clubbing, No Cyanosis Skin: Other (stage 4 coccygeal decubitus ulcer) Neuro: Other (Quadrapeligia ) Hospital Course Was the Problem List Reviewed?: Yes Chief complaint: In need of intensive therapy for catastrophic traumatic injury with subsequent quadriplegia due to complete spinal cord injury C3-C7 History of present illness: This is a 53-year-old white male who presented to the [facility] ER on 12/07/18 after falling 3 stories landing on 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 He was unable to maintain his airway. He was intubated at the scene. He was assessed in the ER by Dr. Vaughan trauma surgeon found to have significant hypotension requiring aggressive IV fluids and pressor therapy but then was assessed that he was likely an spinal cord shock and multiple right rib fractures with flail chest requiring transfer to [facility] trauma surgery which resulted in multiple procedures including tracheostomy due to failing weaning protocol on ventilator, PEG tube placement, spine MRIs confirming C3-C7 spinal cord injury complete with plating of ribs 510 on the right side and right sided chest tube. He was found to have drug screen positive for marijuana and methamphetamine. Neurosurgery was consulted perform decompressive laminectomy on C3-C7 with C4-C5 autograft bone screws and rods. He was diagnosed with Haemophilus influenza while intubated and that treatment was completed. He did have rhabdomyolysis from his injuries requiring aggressive IV fluids but they all resolved. Hyperglycemia was diagnosed and he was started on insulin and elevated liver enzymes have improved since admission and hepatitis viral panel along with HIV were negative. He did receive 2 units of packed red blood cells hospitalized. Currently patient is requiring wound care consult by Dr. Craven and general surgery consultation by Dr. García because additional debridement of the sacral decubitus ulcer will be required. He will remain with the c-collar in place until seen Dr. Nesbitt on 01/30/19. Hemoglobin today is 10.1. Dr. Arcos's been consulted for pulmonary issues which she is having increased secretions today in addition urology will be consulted for Goodman catheter maintenance for neurogenic bladder. I did speak with Dr. Arcos who will panculture the patient and change breathing treatments to clear secretions. Patient remains total care with quadriplegia. The patient was a dmitted to Inpatient rehab on 01/10 from [place]. On 01/10 the patient was evaluated for suspected ileus by Dr. James. This resolved on 01/11 with bowel regimen. On 01/18, Dr. James performed a debridement of the decubitus ulcer. Through continued consultation with Dr. Arcos, the patients Trach tube was removed on 01/26. Another debridement of the decubitus ulcer occured with Dr. García on 01/31. On 02/01, the patient reported nausea, chills, and fever. He was found to be febrile, hypotensive, and diaphoretic. Sepsis protocol was initiated and Vancomycin and Meropenem were started. Both urine and blood cultures grew Pseudomonas and the Vancomycin was discontinued. On 02/05, the patient was transitioned to Levaquin in preparation for disposition. Pending Labs Laboratory Tests 02/07/19 05:43: Glucometer 102 02/07/19 05:45: White Blood Count 9.1, Red Blood Count 3.51, Hemoglobin 10.3, Hematocrit 32, Mean Corpuscular Volume 90, Mean Corpuscular Hemoglobin 29, Mean Corpuscular Hemoglobin Concent 33, Red Cell Distribution Width 13.7, Platelet Count 354, Mean Platelet Volume 7.7, Neutrophils (%) (Auto) 51, Lymphocytes (%) (Auto) 34, Monocytes (%) (Auto) 14, Eosinophils (%) (Auto) 1, Basophils (%) (Auto) 0, Neutrophils # (Auto) 4.6, Lymphocytes # (Auto) 3.1, Monocytes # (Auto) 1.3, Eosinophils # (Auto) 0.1, Basophils # (Auto) 0.0, Sodium Level 136, Potassium Level 3.9, Chloride Level 103, Carbon Dioxide Level 22, Anion Gap 11, Blood Urea Nitrogen 13, Creatinine 0.64, Estimat Glomerular Filtration Rate > 60, BUN/Creatinine Ratio 20, Glucose Level 100, Calcium Level 9.2, Corrected Calcium 9.9, Total Bilirubin 0.2, Aspartate Amino Transf (AST/SGOT) 22, Alanine Aminotransferase (ALT/SGPT) 22, Alkaline Phosphatase 119, Total Protein 7.7, Albumin 3.1 02/07/19 10:51: Glucometer 234 Discharge Condition at discharge Guarded Instructions to patient/family Please see electronic discharge instructions given to patient. Discharge Medications Reviewed and agree with Discharge Medication list on patient's Discharge Instruction sheet HPI General Stated Complaint: TRAUMATIC SCI Source of Information: Patient, Family, Old Records, Spouse Exam Limitations: No Limitations History of Present Illness Initial Comments Chief complaint: In need of intensive therapy for catastrophic traumatic injury with subsequent quadriplegia due to complete spinal cord injury C3-C7 History of present illness: This is a 53-year-old white male who presented to the [facility] ER on 12/07/18 after falling 3 stories landing on 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 He was unable to maintain his airway. He was intubated at the scene. He was assessed in the ER by Dr. Vaughan trauma surgeon found to have significant hypotension requiring aggressive IV fluids and pressor therapy but then was assessed that he was likely an spinal cord shock and multiple right rib fractures with flail chest requiring transfer to [facility] trauma surgery which resulted in multiple procedures including tracheostomy due to failing weaning protocol on ventilator, PEG tube placement, spine MRIs confirming C3-C7 spinal cord injury complete with plating of ribs 510 on the right side and right sided chest tube. He was found to have drug screen positive for marijuana and methamphetamine. Neurosurgery was consulted perform decompressive laminectomy on C3-C7 with C4-C5 autograft bone screws and rods. He was diagnosed with Haemophilus influenza while intubated and that treatment was completed. He did have rhabdomyolysis from his injuries requiring aggressive IV fluids but they all resolved. Hyperglycemia was diagnosed and he was started on insulin and elevated liver enzymes have improved since admission and hepatitis viral panel along with HIV were negative. He did receive 2 units of packed red blood cells hospitalized. Currently patient is requiring wound care consult by Dr. Craven and general surgery consultation by Dr. García because additional debridement of the sacral decubitus ulcer will be required. He will remain with the c-collar in place until seen Dr. Nesbitt on 01/30/19. Hemoglobin today is 10.1. Dr. Arcos's been consulted for pulmonary issues which she is having increased secretions today in addition urology will be consulted for Goodman catheter maintenance for neurogenic bladder. I did speak with Dr. Arcos who will panculture the patient and change breathing treatments to clear secretions. Patient remains total care with quadriplegia. Severity: Severe Clinical Quality Measures Admission Status Admission Status: Inpatient Order (span 2 midnights) DVT/VTE Risk/Contraindication: Risk Factor Score Per Nursin RFS Level Per Nursing on Admit: 4+=Very High Urinary Catheter-Non SCIP Pts: Reason for Catheter Continuanc: Chronic Goodman PAOLA GAN DO 02/07/192034: Diagnosis/Chief Complaint Discharge Diagnosis Verification and Attestation of Medical Student E/M Service A medical student performed and documented this service in my presence. I reviewed and verified all information documented by the medical student and made modifications to such information, when appropriate. I personally performed the physical exam and medical decision making. Paola Gan, Feb 07, 2019,20:35 Discharge Summary Discharge Physical Examination Allergies: Coded Allergies: No Known Drug Allergies (Unverified , 08/25/10) Hospital Course Verification and Attestation of Medical Student E/M Service A medical student performed and documented this service in my presence. I reviewed and verified all information documented by the medical student and made modifications to such information, when appropriate. I personally performed the physical exam and medical decision making. Paola Gan, Feb 07, 2019,20:34 HPI General Stated Complaint: TRAUMATIC SCI History of Present Illness Date Seen by Provider: Feb 07, 2019 Time Seen by Provider: 08:30 Diagnosis/Problems Diagnosis/Problems (1) Post-traumatic quadriplegia (2) Anxiety Status: Chronic (3) Chronic pain Status: Chronic Permanent Comment: Low back pain Last Edited By: Georgia Zambrano on Sep 03, 2017 12:27 (4) Neurogenic bladder (5) HLD (hyperlipidemia) Status: Chronic (6) Tracheostomy dependent (7) DVT prophylaxis Status: Acute (8) Closed right scapular fracture (9) Right rib fracture (10) Right pulmonary contusion (11) Decubitus ulcer of coccygeal region, stage 4 (12) Shock due to spinal cord injury (13) Diabetes mellitus (14) Elevated blood pressure reading Status: Acute (15) Hospital discharge follow-up (16) Septic prepatellar bursitis of left knee (17) septic bursa (18) Sepsis Status: Acute Qualifiers: Qualified Codes: A41.52 - Sepsis due to Pseudomonas (19) UTI (urinary tract infection) Status: Acute Qualifiers: (20) Gram-negative bacteremia Status: Acute (21) Anemia Status: Chronic Qualifiers: Qualified Codes: D64.9 - Anemia, unspecified (22) Incontinence of feces Qualifiers: Qualified Codes: R15.9 - Full incontinence of feces (23) COPD (chronic obstructive pulmonary disease) Qualifiers: Qualified Codes: J44.9 - Chronic obstructive pulmonary disease, unspecified (24) Spinal cord injury at C1-C4 level Status: Chronic Qualifiers: Qualified Codes: S14.101S - Unspecified injury at C1 level of cervical spinal cord, sequela (25) Paresthesias Status: Acute (26) Uncontrolled diabetes mellitus Status: Chronic (27) Illicit drug use Status: Acute (28) Cellulitis Status: Acute (29) Hyperglycemia Status: Acute (30) Sepsis Status: Acute (31) Hypertension Status: Chronic (32) Type 2 diabetes mellitus with hyperglycemia Status: Chronic (33) PEG (percutaneous endoscopic gastrostomy) status Supervisory-Addendum Brief Verification & Attestation Participated in pt care: history, MDM, physical Personally performed: exam, history, MDM, supervision of care Care discussed with: Medical Student Procedures: n/a Results interpretation: Verified all documentation Verification and Attestation of Medical Student E/M Service A medical student performed and documented this service in my presence. I review ed and verified all information documented by the medical student and made modifications to such information, when appropriate. I personally performed the physical exam and medical decision making. Paola Gan, Feb 07, 2019,20:35 [facility] Feb 07, 2019 10:49 PAOLA GAN DO Feb 07, 2019 20:35
--- NOTE | 2019-02-07 11:22 | Therapy Team Discharge Summary ---
Therapy Discharge Summary Discharge Recommendations Date of Discharge Therapy D/C Recommendations: 24 hr Supervision Occupational Therapy Decreased Activ Tolerance, Decreased UE Strength, Dependent Transfers, Impaired Bed Mobility, Impaired Coordination, Impaired Funct Balance, Impaired I ADL's, Impaired Self-Care Skills, Restricted Funct UE ROM Speech-Language Pathology Patient was admitted to the [facility] s/p accident resulting in quadriplegia. He was assessed for cognitive function and determined to have decreased cognitive f unction. He was also receiving his nutrition and hydration via PEG. He was able to take a few trials of puree initially without difficulty. He has progressed to a Dysphagia II diet level with thin liquids. He consumes 100% at meal times with total assistance for all intake. He is discharging to home today with family and outside assistance. He is being discharged from as well. He has met his goals. PT Snf Goals Manager Sql Goals PT Snf Goals Time Frame: Jan 31, 2019 Transfers (B,C,W/C) (FIM): 1 Roll Left to Right (QC): 2 Sit to Lying (QC): 1 Lying-Sitting on Side/Bed(QC): 1 Chair/Mih-ur-Tgwbx Xfer(QC): 1 Car Transfer (QC): 1 Wheelchair (FIM): 5 (if he can get a power chair) Distance: 150' Wheelchair Level of Assist: 5 Wheel 50 feet with 2 turns (QC: 4 OT Manager Sql Goals Manager Sql Goals Time Frame: Feb 14, 2019 Eating (FIM): 3 (Not met) Eating (QC): 3 (not met) Oral Hygiene (QC): 3 (not met) Grooming(FIM): 3 (not met) Upper Body Dressing(FIM): 3 (not met) Additional Goals: 3-ImproveStrength/Estella 1=Demonstrate adherence to instructed precautions during ADL tasks. 2=Patient will verbalize/demonstrate understanding of assistive devices/modifications for ADL. 3=Patient will improve strength/tolerance for activity to enable patient to perform ADL's. Speech Snf Goals Manager Sql Goals The patient will improve his cognitive status for a safe return home. Met. The patient will maintain adequate nutrition/hydration via safe effective swallow function and/or PEG tube. Met. BRANDIE KOENIG Feb 07, 2019 11:22
[2019-02-07] MEDS: LEVOFLOXACIN 750 MG TAB (LEVAQUIN) PO SCH (11:50)
[2019-02-07] MEDS: ENOXAPARIN 40 MG/0.4 ML (LOVENOX) SYR SC SCH (13:33)
== END 2019-02-07 15:00 | disposition home or self-care (01) | DRG 949 ==
PROVIDERS: ADMIT Internal Medicine; ATTEND Internal Medicine
DX: G82.51 Quadriplegia, C1-C4 complete; S22.5XXD Flail chest, subsequent encounter for fracture with routine healing; S42.101D Fracture of unspecified part of scapula, right shoulder, subsequent encounter for fracture with routine healing; L89.154 Pressure ulcer of sacral region, stage 4; N31.9 Neuromuscular dysfunction of bladder, unspecified; R33.9 Retention of urine, unspecified; A41.52 Sepsis due to Pseudomonas; T83.518A Infection and inflammatory reaction due to other urinary catheter, initial encounter; N39.0 Urinary tract infection, site not specified; J20.8 Acute bronchitis due to other specified organisms; K56.7 Ileus, unspecified; J98.11 Atelectasis; E11.65 Type 2 diabetes mellitus with hyperglycemia; L89.619 Pressure ulcer of right heel, unspecified stage; D64.9 Anemia, unspecified; I10 Essential (primary) hypertension; E78.5 Hyperlipidemia, unspecified; F29 Unspecified psychosis not due to a substance or known physiological condition; F32.9 Major depressive disorder, single episode, unspecified; F41.9 Anxiety disorder, unspecified; K21.9 Gastro-esophageal reflux disease without esophagitis; Z93.0 Tracheostomy status; Z93.1 Gastrostomy status; Z87.891 Personal history of nicotine dependence; W13.9XXD Fall from, out of or through building, not otherwise specified, subsequent encounter; Y92.61 Building [any] under construction as the place of occurrence of the external cause; Y99.0 Civilian activity done for income or pay
CPT/HCPCS: 36415; 36569; 36600; 71045; 71275; 72020; 72040; 74018; 76937; 80048; 80053; 80202; 81000; 82805; 82962; 83605; 83735; 83880; 84100; 85007; 85025; 85027; 87040; 87070; 87077; 87081; 87088; 87186; 87205; 94640; 94664; 94760; 94799

== ENCOUNTER → 2019-01-11 | Day surgery (SDC) | payer OTHER ==
[~2019-01-11] MED LIST changes: +ACET-2650 PO; +ALBU2.5V4 NEB; +BISA10SU8 RC; +BUP/EPI 0.5% 1:200,000 (MARCAINE) 10ML VIAL IJ ONE; +COLL30OI TP; +ENOX40DI13 SQ; +FAMO-119 PEG; +GUAI400T71 PO; +HUM100VI15 SQ; +INSU100I29 SQ; +INSU100V SQ; +LIDOCAINE PF 2% 5 ML (XYLOCAINE) VIAL ONE; +LORA2VIA3 IV; +MELA3TAB PO; +MEPERIDINE (DEMEROL) INJ 50 MG/ML IVP ONE; +MIDAZOLAM 2 MG/2 ML (VERSED) VIAL ONE; +MIDO10TA PO; +NA P133E22 RC; +NEUTRA-PHOS PEG; +OMG1KC PO; +ONDA2VIACC IV; +ONDANSETRON 4 MG/2 ML (SDV) Z0FRAN IVP PRN; +ONDANSETRON 4 MG/2 ML (SDV) Z0FRAN ONE; +ONDN4T PO; +PIPE3.376 IV; +POLY17PO6 PO; +POTA20TA15 PO; +PROM25VI IV; +SEVOFLURANE (ULTANE) 15 ML INHAL SOLN ONE; +SIMV80TA21 PO; +VANC750V IV; +fentaNYL INJECTION 100 MCG/2 ML AMP ONE; +morphine INJ 10 MG/ML 1ML (SYR OR VIAL) IVP ONE; +proPOfol 200 MG/20 ML (DIPRIVAN) VIAL IV ONE
--- OUTSIDE RECORDS SUMMARY | 2019-01-11 08:34 | XMS REPORT ---
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 Active 459588478 Problem Type 2 diabetes mellitus with unspecified complications E11.8 Active 62013198 Problem Type 2 diabetes mellitus with hyperglycemia E11.65 Active 26127013 Problem Hypertriglyceridemia E78.1 Active 325377764 Problem Periodontitis K05.30 Active 60509307 Problem Hypoglycemia E16.2 Active 917081328 Problem Primary insomnia F51.01 Active 7152940 Problem Neuropathy G62.9 Active 944992328 ALLERGIES No Information ENCOUNTERS Encounter Location Date Diagnosis [facility] [id number] [place] [id number] Nov, [facility] [id number] [place] [id number] Nov, Neuropathy G62.9 [facility] [id number] [place] [id number] October, Neuropathy G62.9 [facility] [id number] [place] [id number] Sep, Neuropathy G62.9 [facility] [address] [place] [id number] Sep, Type 2 diabetes mellitus with unspecified complications E11.8 ; Other chronic pain G89.29 ; Pain of left thumb M79.645 ; Hypertriglyceridemia E78.1 ; Tobacco abuse Z72.0 and Morbid obesity E66.01 [facility] [id number] [place] [id number] Aug, Neuropathy G62.9 [facility] [id number] [place] [id number] Jul, [facility] [address] [address] Jul, Neuropathy G62.9 [facility] [id number] [place] [id number] Jun, [facility] [address] [address] Jun, Neuropathy G62.9 [facility] [id number] [place] [id number] Jun, [facility] [address] [address] May, [facility] [id number] [place] [id number] May, [facility] [id number] [place] [id number] Apr, Hypertriglyceridemia E78.1 [facility] [id number] [place] [id number] Apr, [facility] [id number] [place] [address] Apr, Type 2 diabetes mellitus with hyperglycemia E11.65 ; Benign prostatic hyperplasia with lower urinary tract symptoms, unspecified morphology N40.1 ; BMI 40.0-44.9, adult Z68.41 and Hypertriglyceridemia E78.1 [facility] [id number] [place] [id number] Apr, [facility] [address] [address] Mar, [facility] [id number] [address] Mar, [facility] [id number] [place] [id number] 27 Feb, 2018 [facility] [id number] [place] [id number] 14 Feb, 2018 Neuropathy G62.9 [facility] [id number] [place] [id number] Jan, Neuropathy G62.9 [facility] [id number] [place] [id number] Jan, [facility] [id number] [place] [id number] Jan, [facility] [id number] [place] [id number] Jan, Increased urinary frequency R35.0 ; Glucosuria R81 ; 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 and Type 2 diabetes mellitus with hyperglycemia E11.65 [facility] [id number] [place] [id number] Dec, Hypertriglyceridemia E78.1 [facility] [id number] [place] [id number] Dec, [facility] [id number] [place] [id number] Nov, [facility] [id number] [place] [id number] Nov, Hypertriglyceridemia E78.1 and Benign prostatic hyperplasia with lower urinary tract symptoms, unspecified morphology N40.1 [facility] [address] [place] [id number] 06 Nov, 2017 Therapeutic drug monitoring Z51.81 ; Hypertriglyceridemia E78.1 ; Type 2 diabetes mellitus with unspecified complications E11.8 ; Tobacco abuse Z72.0 ; Chronic prescription opiate use Z79.891 and Chronically on benzodiazepine therapy Z79.899 [facility] [id number] [address] October, Neuropathy G62.9 [facility] [id number] [address] October, Neuropathy G62.9 [facility] [id number] [place] [address] October, [facility] [id number] [place] [id number] Sep, [facility] [id number] [place] [id number] Sep, Anemia, unspecified type D64.9 [facility] [address] [place], [place] [id number] [place] [address] Sep, Anemia, unspecified type D64.9 [facility] [id number] [place] [id number] Aug, [facility] [id number] [place] [address] Aug, Cellulitis of left lower extremity L03.116 [facility] [id number] [place] [address] Aug, Cellulitis of left knee L03.116 [facility] [id number] [place] [id number] Aug, Cellulitis of left knee L03.116 [facility] [id number] [place] [id number] Aug, Hypertriglyceridemia E78.1 [facility] [id number] [place] [id number] Aug, [facility] [id number] [place] [id number] Jul, Hypertriglyceridemia E78.1 [facility] [id number] [place] [id number] 08 Jul, 2017 Benign prostatic hyperplasia with lower urinary tract symptoms, unspecified morphology N40.1 [facility] [id number] [place] [id number] 02 Jul, 2017 [facility] [id number] [place] [id number] Jun, [facility] [id number] [place] [address] Jun, Hypertriglyceridemia E78.1 [facility] [id number] [place] [address] Jun, Type 2 diabetes mellitus with unspecified complications E11.8 ; Encounter for immunization Z23 ; Neuropathy G62.9 ; Other chronic pain G89.29 and 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 [facility] [id number] [place] [id number] Jun, [facility] [id number] [place] [id number] May, [facility] [id number] [place] [id number] Apr, Benign prostatic hyperplasia with lower urinary tract symptoms, unspecified morphology N40.1 [facility] [id number] [place] [id number] Apr, [facility] [id number] [place] [id number] 13 Mar, 2017 Other chronic pain G89.29 ; Anxiety F41.9 and Neuropathy G62.9 [facility] [id number] [place] [id number] 09 Mar, 2017 Type 2 diabetes mellitus with unspecified complications E11.8 and Other chronic pain G89.29 [facility] [id number] [place] [id number] 29 Feb, 2017 Neuropathy G62.9 [facility] [id number] [place] [id number] 15 Feb, 2017 Other chronic pain G89.29 and Anxiety F41.9 [facility] [id number] [place] [id number] Jan, [facility] [address] [address] Jan, Other chronic pain G89.29 and Anxiety F41.9 [facility] [id number] [place] [id number] Dec, [facility] [id number] [place] [address] Dec, Other chronic pain G89.29 and Anxiety F41.9 [facility] [id number] [place] [address] Dec, [facility] [id number] [place] [id number] Dec, Primary insomnia F51.01 and Neuropathy G62.9 [facility] [id number] [place] [address] Nov, Anxiety F41.9 and Other chronic pain G89.29 [facility] [id number] [place] [id number] Nov, Type 2 diabetes mellitus with unspecified complications E11.8 ; Neuropathy G62.9 and Primary insomnia F51.01 [facility] [id number] [place] [address] October, Anxiety F41.9 and Other chronic pain G89.29 [facility] [id number] [place] [address] October, Other chronic pain G89.29 ; Type 2 diabetes mellitus with unspecified complications E11.8 and Hypoglycemia E16.2 [facility] [id number] [place] [address] Sep, Other chronic pain G89.29 and Anxiety F41.9 [facility] [id number] [place] [id number] Sep, [facility] [id number] [place] [id number] Aug, Other chronic pain G89.29 and Anxiety F41.9 [facility] [id number] [place] [address] Aug, Rash R21 and Pain of right hip joint M25.551 [facility] [address] [address] Aug, [facility] [address] [address] Aug, [facility] [address] [address] Aug, Other chronic pain G89.29 and Anxiety F41.9 [facility] [id number] [place] [id number] Aug, Type 2 diabetes mellitus with unspecified complications E11.8 [facility] [id number] [place] [id number] Jul, [facility] [id number] [place] [id number] Jul, Bronchitis J40 and Non-intractable vomiting, presence of nausea not specified, unspecified vomiting type R11.10 [facility] [address] [address] Jul, [facility] [id number] [place] [address] Jul, Other chronic pain G89.29 and Anxiety F41.9 [facility] [address] [place] [address] Jul, Type 2 diabetes mellitus with unspecified complications E11.8 [facility] [id number] [place], [place] [address] Jun, Type 2 diabetes mellitus with unspecified complications E11.8 [facility] [id number] [place] [id number] Jun, Dental caries K02.9 [facility] [id number] [place] [id number] Jun, [facility] [id number] [place] [id number] Jun, Dental examination Z01.20 [facility] [id number] [place] [id number] Jun, Right corneal abrasion, initial encounter S05.01XA [facility] [address] [address] Jun, [facility] [id number] [place] [address] Jun, Dental examination Z01.20 [facility] [id number] [place] [id number] Jun, [facility] [id number] [place] [address] Jun, Perforated ear drum, right H72.91 ; Tooth pain K08.89 ; Type 2 diabetes mellitus with unspecified complications E11.8 and Other chronic pain G89.29 [facility] [id number] [place] [address] Jun, [facility] [address] [address] Jun, Other chronic pain G89.29 and Anxiety F41.9 [facility] [id number] [place] [id number] Jun, [facility] [id number] [place] [id number] 15 May, 2016 Type 2 diabetes mellitus with unspecified complications E11.8 ; Benign prostatic hyperplasia with lower urinary tract symptoms, unspecified morphology N40.1 and Other chronic pain G89.29 [facility] [id number] [place] [id number] 09 May, 2016 Other chronic pain G89.29 and Anxiety F41.9 [facility] [address] [address] Apr, Other chronic pain G89.29 and Anxiety F41.9 [facility] [address] [address] Mar, [facility] [address] [address] Mar, Anxiety F41.9 and Other chronic pain G89.29 [facility] [address] [address] 14 Mar, 2016 Other chronic pain G89.29 and parts counterman 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 Z79.891 [facility] [address] [address] Mar, Other chronic pain G89.29 ; parts counterman 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 Z79.891 and Anxiety F41.9 [facility] [id number] [place] [address] 30 Feb, 2016 Bronchitis J40 [facility] [id number] [place] [address] 19 Feb, 2016 Other chronic pain G89.29 [facility] [id number] [place] [id number] 15 Feb, 2016 Type 2 diabetes mellitus with unspecified complications E11.8 [facility] [id number] [place] [address] Jan, Anxiety F41.9 [facility] [address] [place] [address] Jan, [facility] [id number] [place] [id number] Jan, [facility] [id number] [place] [address] Jan, Type 2 diabetes mellitus with unspecified complications E11.8 and Other chronic pain G89.29 [facility] [id number] [place] [id number] Jan, [facility] [id number] [place] [phone] Jan, Dehydration E86.0 and Type 2 diabetes mellitus with unspecified complications E11.8 [facility] [id number] [place] [id number] Jan, [facility] [id number] [place] [address] Dec, Anxiety F41.9 [facility] [id number] [place] [address] Dec, Encounter to establish care Z76.89 ; Type 2 diabetes mellitus with unspecified complications E11.8 ; senior living 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 ; Dorsalgia, unspecified M54.9 ; Other chronic pain G89.29 ; Insomnia, unspecified type G47.00 ; Neuropathy G62.9 and Bilateral tinnitus H93.13 [facility] [address] [place] [address] Dec, IMMUNIZATIONS No Known Immunizations SOCIAL HISTORY Never Assessed REASON FOR VISIT controlled med 09/06 PLAN OF CARE VITAL SIGNS MEDICATIONS Medication Instructions Dosage Frequency Start Date End Date Duration Status Lyrica 150 MG Orally 3 times a day 1 capsule 8h May, 28 days Active Alprazolam 1 MG Orally Once a day 1 tablet at bedtime 24h 28 days Active Hydrocodone-Acetaminophen 10-325 MG Orally 3 times a day 1 tablet 8h Aug, 28 days Active RESULTS No Results PROCEDURES No Known procedures INSTRUCTIONS MEDICATIONS ADMINISTERED No Known Medications MEDICAL (GENERAL) HISTORY Type Description Date Medical History Type 2 diabetes mellitus without complications Medical History 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
--- OUTSIDE RECORDS SUMMARY | 2019-01-11 08:49 | XMS REPORT | Continuity of Care Document ---
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 2016 Ot 250.00 [...] Medrano Ot E888.9 FALL NOS 2016 JOAO CJIISAH Medrano Ot V72.84 EXAM PRE-OPERATIVE NOS 2016 SUSIE COMBS, GLAE Rowe Ot 786.05 SHORTNESS OF BREATH 2016 [...] 04/14/2016 NOEMÍ DO, ARLIN K Ot Z79.4 MCC (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 OF INSULIN 05/06/2016 NOEMÍ DO, [...] 05/06/2016 NOEMÍ DO, ARLIN K Ot Z79.4 CEO 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 09/06/2017 TERESO COMBS, [...] LEF 09/06/2017 PRANAY WADE MD, Ot Z79.4 MCC (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 OF INSULIN 09/06/2017 PRANAY WADE MD, Ot Z86.010 PERSONAL HISTORY OF COLONIC POLYPS 12/07/2018 RAEANN MOMIN APRN Ot E11.40 TYPE 2 DIABETES MELLITUS WITH DIABETIC N 12/07/2018 RAEANN MOMIN APRN Ot F41.9 ANXIETY DISORDER, UNSPECIFIED 12/07/2018 RAEANN MOMIN APRN Ot I95.9 HYPOTENSION, UNSPECIFIED 12/07/2018 RAEANN MOMIN APRN, Ot J44.9 CHRONIC OBSTRUCTIVE PULMONARY DISEASE, U 12/07/2018 RAEANN MOMIN APRN Ot R40.2112 COMA SCALE, EYES OPEN, NEVER, EMR 12/07/2018 RAEANN MOMIN APRN Ot R40.2212 COMA SCALE, BEST VERBAL RESPONSE, NONE, 12/07/2018 RAEANN MOMIN APRN Ot R40.2312 COMA SCALE, BEST MOTOR RESPONSE, NONE, E 12/07/2018 RAEANN MOMIN APRN Ot S09.90XA UNSPECIFIED INJURY OF HEAD, INITIAL ENCO 12/07/2018 RAEANN MOMIN APRN Ot S29.9XXA UNSPECIFIED INJURY OF THORAX, INITIAL EN 12/07/2018 RAEANN MOMIN APRN Ot W11.XXXA FALL ON AND FROM LADDER, INITIAL ENCOUNT 12/07/2018 RAEANN MOMIN APRN Ot 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.4 CEO 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 12/07/2018 RAEANN MOMIN APRN Ot Z80.43 FAMILY HISTORY OF MALIGNANT NEOPLASM OF 12/07/2018 RAEANN MOMIN APRN Ot Z82.49 FAMILY HX OF ISCHEM HEART DIS AND OTH DI 12/07/2018 RAEANN MOMIN APRN, Ot Z87.19 PERSONAL HISTORY OF OTHER DISEASES OF TH 12/07/2018 RAEANN MOMIN APRN Ot Z98.890 OTHER SPECIFIED POSTPROCEDURAL STATES Procedures Code Description Performed By Performed On 81.17 OTHER FUSION OF FOOT 08/03/2013 [id number] DRAINAGE OF LEFT KNEE JOINT, PERCUTANEOU 09/03/2017 [id number] DRAINAGE OF L KNEE BURSA/LIG WITH DRAIN 09/04/2017 [id number] DRAINAGE OF LEFT KNEE JOINT, PERCUTANEOU 09/04/2017 Results Test Result Range LIPID PANEL - 06/29/17 09:23 CHOLESTEROL, TOTAL 286 mg/dL <200 HDL CHOLESTEROL 23 mg/dL >40 TRIGLYCERIDES 1184 mg/dL <150 LDL-CHOLESTEROL mg/dL (calc) NRG CHOL/HDLC RATIO 12.4 (calc) <5.0 NON HDL CHOLESTEROL 263 mg/dL (calc) <130 [facility] - 06/29/17 09:23 GLUCOSE 399 mg/dL 65-99 UREA NITROGEN (BUN) 19 mg/dL 7-25 CREATININE 1.07 mg/dL 0.70-1.33 eGFR NON-AFR. PERUVIAN 78 mL/min/1.73m2 > OR=60 eGFR 91 mL/min/1.73m2 [...] 35 U/L 10-35 ALT 56 U/L 9-46 [facility] - 08/05/17 16:26 GLUCOSE 297 mg/dL 65-99 UREA NITROGEN (BUN) 16 mg/dL 7-25 CREATININE 1.25 mg/dL 0.70-1.33 eGFR NON-AFR. PERUVIAN 65 mL/min/1.73m2 > OR=60 eGFR 75 mL/min/1.73m2 [...] - 09/03/17 09:58 Bacterial body fluid culture NRG Capillary blood glucose measurement by glucometer [...] 10:57 Bacteria identification in wound by culture [id number] NRG FREE TEXT EXTERNAL SENSITIVITY REPORTED 09/05 15:45 NRG QUANTITY OF GROWTH Abundant Growth NRG MRSA AGAR Screening test for MRSA is NEGATIVE (Final to follow) NR Bacterial susceptibility panel - 09/04/17 10:57 Oxacillin [...] 7-25 CREATININE 1.11 mg/dL 0.70-1.33 eGFR NON-AFR. PERUVIAN 75 mL/min/1.73m2 > OR=60 eGFR 87 mL/min/1.73m2 [...] COMMENT NRG Prescribed Drug 2 Lyrica(TM) NRG Automated blood complete blood count (hemogram) panel - 12/07/18 13:10 Blood leukocytes automated count (number/volume) 13.3 10*3/uL 4.3-11.0 Blood erythrocytes automated count (number/volume) 3.80 10*6/uL 4.35-5.85 Venous blood hemoglobin measurement (mass/volume) 12.5 g/dL 13.3-17.7 Blood hematocrit (volume fraction) 35 % 40-54 Automated erythrocyte mean corpuscular volume 93 [foz_us] 80-99 Automated erythrocyte mean corpuscular hemoglobin (mass per erythrocyte) 33 pg 25-34 Automated erythrocyte mean corpuscular hemoglobin concentration measurement (mass/volume) 35 g/dL 32-36 Automated erythrocyte distribution width ratio 13.0 % 10.0- 14.5 Automated blood platelet count (count/volume) 235 10*3/uL 130-400 Automated blood platelet mean volume measurement 8.8 [foz_us] 7.4-10.4 PT panel in platelet poor plasma by coagulation assay - 12/07/18 13:10 Prothrombin time (PT) in platelet poor plasma by coagulation assay 14.8 s 12.2-14.7 INR in platelet poor plasma or blood by coagulation assay 1.1 0.8-1.4 Activated partial thromboplastin time (aPTT) in platelet poor plasma bycoagulation assay - 12/07/18 13:10 Activated partial thromboplastin time (aPTT) in platelet poor plasma bycoagulation assay 25 s 24-35 Fibrinogen measurement in platelet poor plasma by coagulation assay (mass/volume) - 12/07/18 13:10 Fibrinogen measurement in platelet poor plasma by coagulation assay (mass/volume) 268 mg/dL 221-496 Fibrin D-dimer FEU measurement in platelet poor plasma (mass/volume) - 12/07/18 13:10 Fibrin D-dimer FEU measurement in platelet poor plasma (mass/volume) 2.96 ug/mL 0.00-0.49 Liver function panel (serum or plasma alk phos, alb, total and direct bili, total protein, ALT, AST) - 12/07/18 13:10 Serum or plasma total bilirubin measurement (mass/volume) 0.3 mg/dL 0.1-1.0 Serum or plasma alkaline phosphatase measurement (enzymatic activity/volume) 105 U/L 40-136 Serum or plasma aspartate aminotransferase measurement (enzymatic activity/volume) 293 U/L 5-34 Serum or plasma alanine aminotransferase measurement (enzymatic activity/volume) 193 U/L 0-55 Serum or plasma protein measurement (mass/volume) 6.3 g/dL 6.4-8.2 Serum or plasma albumin measurement (mass/volume) 3.5 g/dL 3.2-4.5 Bilirubin direct 0.1 mg/dL 0.0-0.3 Serum or plasma indirect bilirubin measurement (mass/volume) 0.2 mg/dL NRG Whole blood basic metabolic panel - 12/07/18 13:10 Serum or plasma sodium measurement (moles/volume) 133 mmol/L 135-145 Serum or plasma potassium measurement (moles/volume) 4.5 mmol/L 3.6-5.0 Serum or plasma chloride measurement (moles/volume) 103 mmol/L 98-107 Carbon dioxide 18 mmol/L 21-32 Serum or plasma anion gap determination (moles/volume) 12 mmol/L 5-14 Serum or plasma urea nitrogen measurement (mass/volume) 18 mg/dL 7-18 Serum or plasma creatinine measurement (mass/volume) 1.70 mg/dL 0.60-1.30 Serum or plasma urea nitrogen/creatinine mass ratio 11 NRG Serum or plasma creatinine measurement with calculation of estimated glomerular filtration rate 42 NRG Serum or plasma glucose measurement (mass/volume) 424 mg/dL 70-105 Serum or plasma calcium measurement (mass/volume) 7.8 mg/dL 8.5-10.1 Serum or plasma phosphate measurement (mass/volume) - 12/07/18 13:10 Serum or plasma phosphate measurement (mass/volume) 4.0 mg/dL 2.3-4.7 Magnesium - 12/07/18 13:10 Magnesium 1.8 mg/dL 1.8-2.4 Serum or plasma troponin i.cardiac measurement (mass/volume) - 12/07/18 13:10 Serum or plasma troponin i.cardiac measurement (mass/volume) < ng/mL <0.028 Serum or plasma ethanol measurement (mass/volume) - 12/07/18 13:10 Serum or plasma ethanol measurement (mass/volume) < mg/dL <10 RED CELLS LEUKO REDUCED AS1 - 12/07/18 13:10 RED CELLS LEUKO REDUCED AS1 NOT AVAILABLE NRG Blood type T Indirect antibody screen panel - 12/07/18 13:10 WRISTBAND NUMBER [id number] NRG ABO+Rh group ON NRG Blood group antibody screen NEGATIVE NRG Complete urinalysis with reflex to culture - 12/07/18 13:51 Urine color determination YELLOW NRG Urine clarity determination CLEAR NRG Urine pH measurement by test strip 5 5-9 Specific gravity of urine by test strip 1.020 1.016-1.022 Urine protein assay by test strip, semi-quantitative 2+ NEGATIVE Urine glucose detection by automated test strip 4+ NEGATIVE Erythrocytes detection in urine sediment by light microscopy 1+ NEGATIVE Urine ketones detection by automated test strip 1+ NEGATIVE Urine nitrite detection by test strip NEGATIVE NEGATIVE Urine total bilirubin detection by test strip NEGATIVE NEGATIVE Urine urobilinogen measurement by automated test strip (mass/volume) NORMAL NORMAL Urine leukocyte esterase detection by dipstick NEGATIVE NEGATIVE Automated urine sediment erythrocyte count by microscopy (number/high power field) [HPF] NRG Automated urine sediment leukocyte count by microscopy (number/high power field) NONE NRG Bacteria detection in urine sediment by light microscopy TRACE NRG Squamous epithelial cells detection in urine sediment by light microscopy 2-5 NRG Crystals detection in urine sediment by light microscopy NONE NRG Casts detection in urine sediment by light microscopy NONE NRG Mucus detection in urine sediment by light microscopy NEGATIVE NRG Complete urinalysis with reflex to culture NO NRG Urine drug screening test - 12/07/18 13:51 Urine phencyclidine detection by screening method POSITIVE NEGATIVE Urine benzodiazepines detection by screening method POSITIVE NEGATIVE Urine cocaine detection NEGATIVE NEGATIVE Urine amphetamines detection by screening method NEGATIVE NEGATIVE Urine methamphetamine detection by screening method NEGATIVE NEGATIVE Urine cannabinoids detection by screening method POSITIVE NEGATIVE Urine opiates detection by screening method POSITIVE NEGATIVE Urine barbiturates detection NEGATIVE NEGATIVE Screening urine tricyclic antidepressants detection NEGATIVE NEGATIVE Urine methadone detection by screening method NEGATIVE NEGATIVE Urine oxycodone detection NEGATIVE NEGATIVE Urine propoxyphene detection NEGATIVE NEGATIVE Capillary blood glucose measurement by glucometer (mass/volume) - 01/09/19 18:17 Capillary blood glucose measurement by glucometer (mass/volume) 96 mg/dL 70-110 Capillary blood glucose measurement by glucometer (mass/volume) - 01/10/19 00:00 Capillary blood glucose measurement by glucometer (mass/volume) 175 mg/dL 70-110 Capillary blood glucose measurement by glucometer (mass/volume) - 01/10/19 05:14 Capillary blood glucose measurement by glucometer (mass/volume) 120 mg/dL 70-110 Complete blood count (CBC) with automated white blood cell (WBC) differential - 01/10/19 05:17 Blood leukocytes automated count (number/volume) 6.8 10*3/uL 4.3-11.0 Blood erythrocytes automated count (number/volume) 3.33 10*6/uL 4.35-5.85 Venous blood hemoglobin measurement (mass/volume) 10.1 g/dL 13.3-17.7 Blood hematocrit (volume fraction) 32 % 40-54 Automated erythrocyte mean corpuscular volume 96 [foz_us] 80-99 Automated erythrocyte mean corpuscular hemoglobin (mass per erythrocyte) 30 pg 25-34 Automated erythrocyte mean corpuscular hemoglobin concentration measurement (mass/volume) 32 g/dL 32-36 Automated erythrocyte distribution width ratio 14.9 % 10.0- 14.5 Automated blood platelet count (count/volume) 208 10*3/uL 130-400 Automated blood platelet mean volume measurement 8.5 [foz_us] 7.4-10.4 Automated blood neutrophils/100 leukocytes 54 % 42-75 Automated blood lymphocytes/100 leukocytes 33 % 12-44 Blood monocytes/100 leukocytes 12 % 0-12 Automated blood eosinophils/100 leukocytes 0 % 0-10 Automated blood basophils/100 leukocytes 0 % 0-10 Blood neutrophils automated count (number/volume) 3.7 10*3 1.8-7.8 Blood lymphocytes automated count (number/volume) 2.3 10*3 1.0-4.0 Blood monocytes automated count (number/volume) 0.8 10*3 0.0- 1.0 Automated eosinophil count 0.0 10*3/uL 0.0-0.3 Automated blood basophil count (count/volume) 0.0 10*3/uL 0.0-0.1 Comprehensive metabolic panel - 01/10/19 05:17 Serum or plasma sodium measurement (moles/volume) 135 mmol/L 135-145 Serum or plasma potassium measurement (moles/volume) 4.6 mmol/L 3.6-5.0 Serum or plasma chloride measurement (moles/volume) 99 mmol/L 98-107 Carbon dioxide 24 mmol/L 21-32 Serum or plasma anion gap determination (moles/volume) 12 mmol/L 5-14 Serum or plasma urea nitrogen measurement (mass/volume) 13 mg/dL 7-18 Serum or plasma creatinine measurement (mass/volume) 0.72 mg/dL 0.60-1.30 Serum or plasma urea nitrogen/creatinine mass ratio 18 NRG Serum or plasma creatinine measurement with calculation of estimated glomerular filtration rate > NRG Serum or plasma glucose measurement (mass/volume) 119 mg/dL 70-105 Serum or plasma calcium measurement (mass/volume) 9.1 mg/dL 8.5-10.1 Serum or plasma total bilirubin measurement (mass/volume) 0.3 mg/dL 0.1-1.0 Serum or plasma alkaline phosphatase measurement (enzymatic activity/volume) 178 U/L 40-136 Serum or plasma aspartate aminotransferase measurement (enzymatic activity/volume) 26 U/L 5-34 Serum or plasma alanine aminotransferase measurement (enzymatic activity/volume) 19 U/L 0-55 Serum or plasma protein measurement (mass/volume) 7.7 g/dL 6.4-8.2 Serum or plasma albumin measurement (mass/volume) 3.1 g/dL 3.2-4.5 CALCIUM CORRECTED 9.8 mg/dL 8.5-10.1 Serum or plasma lithium measurement (moles/volume) - 01/10/19 05:17 BNP PT 104.6 pg/mL <100.0 Arterial blood gas measurement - 01/10/19 09:57 Blood pCO2 39 mm[Hg] 35-45 Blood pO2 78 mm[Hg] 79-93 Arterial blood bicarbonate measurement (moles/volume) 27 mmol/L 23-27 Arterial blood base excess by calculation 3.5 mmol/L -2.5-2.5 Arterial blood oxygen saturation measurement 97 % 94-100 * Inhaled oxygen flow rate TRACH 6 L 28% NRG Arterial blood pH measurement with patient temperature correction 7.46 7.37-7.43 Arterial blood carbon dioxide, total measurement (moles/volume) 28.6 mmol/L 21.0-31.0 Body site RT BRACHIAL NRG Assessment of wrist artery patency prior to arterial puncture YES-POS NRG Setting of ventilation mode NO NRG Measurement of body temperature 96.8 NRG Complete urinalysis with reflex to culture - 01/10/19 10:10 Urine color determination YELLOW NRG Urine clarity determination CLEAR NRG Urine pH measurement by test strip 8 5-9 Specific gravity of urine by test strip 1.010 1.016-1.022 Urine protein assay by test strip, semi-quantitative 1+ NEGATIVE Urine glucose detection by automated test strip NEGATIVE NEGATIVE Erythrocytes detection in urine sediment by light microscopy NEGATIVE NEGATIVE Urine ketones detection by automated test strip NEGATIVE NEGATIVE Urine nitrite detection by test strip NEGATIVE NEGATIVE Urine total bilirubin detection by test strip NEGATIVE NEGATIVE Urine urobilinogen measurement by automated test strip (mass/volume) 4 mg/dL NORMAL Urine leukocyte esterase detection by dipstick NEGATIVE NEGATIVE Automated urine sediment erythrocyte count by microscopy (number/high power field) RARE NRG Automated urine sediment leukocyte count by microscopy (number/high power field) NONE NRG Bacteria detection in urine sediment by light microscopy NEGATIVE NRG Squamous epithelial cells detection in urine sediment by light microscopy RARE NRG Crystals detection in urine sediment by light microscopy NONE NRG Casts detection in urine sediment by light microscopy PRESENT NRG Mucus detection in urine sediment by light microscopy SMALL NRG Complete urinalysis with reflex to culture NO NRG Hyaline casts detection in urine sediment by light microscopy RARE NRG Capillary blood glucose measurement by glucometer (mass/volume) - 01/10/19 11:50 Capillary blood glucose measurement by glucometer (mass/volume) 239 mg/dL 70-110 Vancomycin trough - 01/10/19 17:35 Vancomycin trough 16.0 ug/mL 10.0-20.0 Capillary blood glucose measurement by glucometer (mass/volume) - 01/10/19 18:32 Capillary blood glucose measurement by glucometer (mass/volume) 281 mg/dL 70-110 Capillary blood glucose measurement by glucometer (mass/volume) - 01/11/19 00:14 Capillary blood glucose measurement by glucometer (mass/volume) 244 mg/dL 70-110 Capillary blood glucose measurement by glucometer (mass/volume) - 01/11/19 04:52 Capillary blood glucose measurement by glucometer (mass/volume) 78 mg/dL 70-110 Complete blood count (CBC) with automated white blood cell (WBC) differential - 01/11/19 05:00 Blood leukocytes automated count (number/volume) 6.5 10*3/uL 4.3-11.0 Blood erythrocytes automated count (number/volume) 3.30 10*6/uL 4.35-5.85 Venous blood hemoglobin measurement (mass/volume) 10.1 g/dL 13.3-17.7 Blood hematocrit (volume fraction) 32 % 40-54 Automated erythrocyte mean corpuscular volume 96 [foz_us] 80-99 Automated erythrocyte mean corpuscular hemoglobin (mass per erythrocyte) 31 pg 25-34 Automated erythrocyte mean corpuscular hemoglobin concentration measurement (mass/volume) 32 g/dL 32-36 Automated erythrocyte distribution width ratio 15.1 % 10.0- 14.5 Automated blood platelet count (count/volume) 225 10*3/uL 130-400 Automated blood platelet mean volume measurement 8.6 [foz_us] 7.4-10.4 Automated blood neutrophils/100 leukocytes 53 % 42-75 Automated blood lymphocytes/100 leukocytes 31 % 12-44 Blood monocytes/100 leukocytes 14 % 0-12 Automated blood eosinophils/100 leukocytes 2 % 0-10 Automated blood basophils/100 leukocytes 0 % 0-10 Blood neutrophils automated count (number/volume) 3.4 10*3 1.8-7.8 Blood lymphocytes automated count (number/volume) 2.0 10*3 1.0-4.0 Blood monocytes automated count (number/volume) 0.9 10*3 0.0- 1.0 Automated eosinophil count 0.1 10*3/uL 0.0-0.3 Automated blood basophil count (count/volume) 0.0 10*3/uL 0.0-0.1 Whole blood basic metabolic panel - 01/11/19 05:00 Serum or plasma sodium measurement (moles/volume) 140 mmol/L 135-145 Serum or plasma potassium measurement (moles/volume) 3.8 mmol/L 3.6-5.0 Serum or plasma chloride measurement (moles/volume) 105 mmol/L 98-107 Carbon dioxide 25 mmol/L 21-32 Serum or plasma anion gap determination (moles/volume) 10 mmol/L 5-14 Serum or plasma urea nitrogen measurement (mass/volume) 13 mg/dL 7-18 Serum or plasma creatinine measurement (mass/volume) 0.64 mg/dL 0.60-1.30 Serum or plasma urea nitrogen/creatinine mass ratio 20 NRG Serum or plasma creatinine measurement with calculation of estimated glomerular filtration rate > NRG Serum or plasma glucose measurement (mass/volume) 82 mg/dL 70-105 Serum or plasma calcium measurement (mass/volume) 9.2 mg/dL 8.5-10.1 Serum or plasma phosphate measurement (mass/volume) - 01/11/19 05:00 Serum or plasma phosphate measurement (mass/volume) 3.5 mg/dL 2.3-4.7 Magnesium - 01/11/19 05:00 Magnesium 2.2 mg/dL 1.8-2.4 Encounters ACCT No. Visit Date/Time Discharge Status Pt. Type Provider Facility Loc./Unit Complaint [id number] 09/25/2018 10:00:00 09/25/2018 23:59:59 [facility] Outpatient SARAH GOLDMAN APRN [facility] [id number] 09/25/2018 10:00:00 Document Registration [id number] 05/15/2018 10:20:00 Document Registration [id number] 11/23/2017 09:00:00 Document Registration [id number] 08/05/2017 16:40:00 Document Registration [id number] 06/29/2017 08:20:00 Document Registration [id number] 12/07/2018 13:09:00 12/07/2018 15:00:00 DIS Emergency RAEANN MOMIN APRN [facility] ER FALL [id number] 09/02/2017 22:45:00 09/06/2017 16:35:00 DIS Inpatient MAURO COMBS, PRANAY Grewal [facility] 4TH SEPSIS,ABSCESS LLE,HYPERGLYCEMIA DM,H/O COPD [id number] 01/04/2016 17:54:00 01/04/2016 20:08:00 DIS Emergency ARLIN DOWD DO [facility] ER NUMBNESS L SIDE/DIFF TALKING [id number] 09/30/2015 17:09:00 09/30/2015 18:50:00 DIS Emergency MINNIE SALMERON MD [facility] ER L SIDE NUMBNESS/WEAKNESS/LETHARGIC [id number] 05/05/2015 09:44:00 05/05/2015 23:59:59 CLS Outpatient ADRIENNE RIDER MD [facility] RAD UPPER BACK PAIN [id number] 02/28/2014 06:47:00 02/28/2014 10:30:00 DIS Outpatient GALE RICHARDS MD [facility] SDC DYSPHAGIA;COUGH [id number] 02/27/2014 07:43:00 02/27/2014 23:59:59 CLS Outpatient [id number] 02/13/2014 11:35:00 02/13/2014 23:59:59 CLS Outpatient GALE RICHARDS MD [facility] RAD DYSPHAGIA,COUGH SOA [id number] 10/12/2013 20:33:00 10/12/2013 21:51:00 DIS Emergency RAEANN MOMIN APRN [facility] ER L FOOT PAIN [id number] 08/03/2013 11:33:00 08/05/2013 13:10:00 DIS Inpatient BLADAVIDHO ISIAH ESCOBEDO [facility] SURGICAL LEFT FOOT FRACTURE [id number] 07/24/2013 13:15:00 07/24/2013 23:59:59 CLS Outpatient ISIAH SHEPHERD DPM [facility] PREOP LEFT FOOT FRACTURE [id number] 07/24/2013 09:40:00 07/24/2013 11:38:00 DIS Emergency MINNIE SALMERON MD [facility] ER LEFT FOOT PAIN [id number] 07/15/2013 18:34:00 07/15/2013 20:39:00 DIS Outpatient ISIAH SHEPHERD DPM [facility] SDC METATARSAL DISLOCATION FX [id number] 05/07/2013 12:10:00 05/07/2013 23:59:59 CLS Outpatient ADRIENNE RIDER MD [facility] RAD COUGH [id number] 01/09/2019 16:14:00 ACT Inpatient MARGUERITE GAN DO [facility] IRF TRAUMATIC SCI [id number] 03/14/2015 13:33:00 Document Registration [id number] 03/14/2015 13:33:00 Document Registration [id number] 04/28/2011 14:05:00 Document Registration [id number] 12/28/2010 10:52:00 Document Registration [id number] 10/26/2010 09:24:00 Document Registration [id number] 09/29/2010 05:35:00 Document Registration [id number] 09/28/2010 09:06:00 Document Registration [id number] 08/25/2010 13:07:00 Document Registration [id number] 08/22/2010 21:50:00 Document Registration
--- NOTE | 2019-01-11 14:13 | Progress Note-Post Operative ---
Post-Operative Progess Note Surgeon (s)/Software Solutions Architect (s) Surgeon EDMUND ALAMO DO Software Solutions Architect: none Pre-Operative Diagnosis Sacral Decubitus ulcer with necrotic tissue Post-Operative Diagnosis same Procedure & Operative Findings Date of Procedure 01/11/19 Procedure Performed/Findings Debridement of necrotic tissue Anesthesia Type MAC Estimated Blood Loss Estimated blood loss (mL): scant Specimens/Packing Specimens Removed necrotic tissue EDMUND ALAMO DO Jan 11, 2019 14:13
[2019-01-11 14:21] VITALS: BP 122/93
[2019-01-11 14:30] VITALS: BP 85/57
[2019-01-11 14:40] VITALS: BP 84/55
[2019-01-11 14:50] VITALS: BP 97/41
--- NOTE | 2019-01-11 21:02 | OPERATIVE REPORT ---
DATE OF SERVICE: 01/11/2019 PREOPERATIVE DIAGNOSES: Sacral decubitus ulcer with necrotic tissue. POSTOPERATIVE DIAGNOSIS: Sacral decubitus ulcer with necrotic tissue. PROCEDURE: Debridement of necrotic tissue. SURGEON: Maciel García DO HOTEL OPERATION MANAGER: None. ANESTHESIA: IV sedation. SPECIMENS: Necrotic tissue. BLOOD LOSS: Scant. FLUIDS: Per anesthesia. POSTOPERATIVE CONDITION: Stable. INDICATION FOR PROCEDURE: The patient is a 53-year-old male who unfortunately recently had a fall and broke his back with subsequent partial quadriplegia and had a sacral decubitus ulcer developed while he was inpatient at a different hospital. He came to the outpatient rehab unit. We are going to place wound VAC placement, but had some necrotic tissue and need to be debrided further. FINDINGS: The patient had necrotic tissue debrided and sent for pathology. PROCEDURE NOTE: After informed consent was obtained, the patient was brought to the operating room, left in his bed. He was placed in left lateral decubitus position, sterilely prepped and draped in normal fashion. Then, using sharp dissection with Bovie electrocautery debrided necrotic tissue. There was some tissue along the superior aspect of the sacral decubitus ulcer as well as along the sides, the bottom looked okay. Removed about 7 to 8 millimeter thick and 3.5 cm long and 2 cm deep area of necrotic tissue on the right lateral aspect of the decubitus ulcer. A 3 to 4 mm thick, 3cm long and 3 cm deep on the left lateral aspect,and then on the superior aspect of the incision also took off another 2 or 3 mm thickness and length of about 1.5 cm long area of necrotic tissue. Debrided to good healthy tissue, until there was a little bit of bleeding. This was controlled with Bovie electrocautery. Copiously irrigated with normal saline and then once making sure there was no bleeding we placed a wet to dry dressing. The patient tolerated the procedure. He was then transferred to recovery room in stable condition. Sponge, instrument and needle count correct at the end of the case. Job ID: [id number] DocumentID: [id number] Dictated Date: 01/11/2019 16:57:41 Sod Stripper Date: 01/11/2019 21:01:26 Dictated By: MACIEL GARCÍA DO [facility]
--- NOTE | 2019-01-12 13:29 | Anesthesia-General Post-Op ---
MAC Patient Condition Mental Status/LOC: Same as Preop Cardiovascular: Satisfactory Nausea/Vomiting: Absent Respiratory: Satisfactory Pain: Controlled Complications: Absent Post Op Complications Complications None Follow Up Care/Instructions Patient Instructions None needed. Anesthesiology Discharge Order Discharge Order Patient is doing well, no complaints, stable vital signs, no apparent adverse anesthesia problems. No complications reported per nursing. ARGENIS MISHRA CRNA Jan 12, 2019 13:29
== END ==
LOC: SDC 08:29
PROVIDERS: ATTEND Surgery
DX: L89.154 Pressure ulcer of sacral region, stage 4 (principal); J30.1 Allergic rhinitis due to pollen; J44.9 Chronic obstructive pulmonary disease, unspecified; K21.9 Gastro-esophageal reflux disease without esophagitis; G89.29 Other chronic pain; M54.9 Dorsalgia, unspecified; E11.42 Type 2 diabetes mellitus with diabetic polyneuropathy; F41.9 Anxiety disorder, unspecified; G82.50 Quadriplegia, unspecified; I10 Essential (primary) hypertension; Z79.1 Long term (current) use of non-steroidal anti-inflammatories (NSAID); Z79.4 Long term (current) use of insulin; Z79.899 Other long term (current) drug therapy; Z86.010 Personal history of colon polyps; Z83.3 Family history of diabetes mellitus; Z82.49 Family history of ischemic heart disease and other diseases of the circulatory system
CPT/HCPCS: 88304

== ENCOUNTER 2019-02-15 13:51 | Inpatient (IN) | payer MEDICAID, OTHER ==
[~2019-02-15] VITALS: Ht 160 cm; Wt 66.8 kg
[~2019-02-15 13:51] MED LIST changes: +ALPR0.5T7 PO; +BACL10TA PO; -BUP/EPI 0.5% 1:200,000 (MARCAINE) 10ML VIAL IJ ONE; +CITA10TA7 PO; +ENOX40DI8 SC; +FAMO20TA5 PO; +IPRA3AMP31 INH; +LEVO750T39 PO; -LIDOCAINE PF 2% 5 ML (XYLOCAINE) VIAL ONE; +LORA10TA7 PO; -MEPERIDINE (DEMEROL) INJ 50 MG/ML IVP ONE; +MICO90PO TOP; -MIDAZOLAM 2 MG/2 ML (VERSED) VIAL ONE; +MONT10TA24 PO; -ONDANSETRON 4 MG/2 ML (SDV) Z0FRAN IVP PRN; -ONDANSETRON 4 MG/2 ML (SDV) Z0FRAN ONE; +PHOS250T5 PO; +POTA10TA6 PO; +QUET25TA73 PO; +SENN-20 PO; -SEVOFLURANE (ULTANE) 15 ML INHAL SOLN ONE; +SODI473S7 TOP; +TRAM50TA2 PO; +[UNRECOGNIZED DRUG - CODE] MC; -fentaNYL INJECTION 100 MCG/2 ML AMP ONE; -morphine INJ 10 MG/ML 1ML (SYR OR VIAL) IVP ONE; -proPOfol 200 MG/20 ML (DIPRIVAN) VIAL IV ONE
[2019-02-15] MEDS ORDERED: LACTATED RINGERS 1,000 ML IV ONE (14:19)
[2019-02-15 14:28] LABS: BASOPHILS % (AUTO) 0 % (0-10); EOSINOPHILS % (AUTO) 0 % (0-10); HEMATOCRIT 31 % (40-54); HEMOGLOBIN 10.4 G/DL (13.3-17.7); LYMPHOCYTES # (AUTO) 3.9 X 10^3 (1.0-4.0); LYMPHOCYTES % (AUTO) 32 % (12-44); MEAN CORPUSCULAR HEMOGLOBIN 28 PG (25-34); MEAN CORPUSCULAR HGB CONC 33 G/DL (32-36); MEAN CORPUSCULAR VOLUME 85 FL (80-99); MONOCYTES # (AUTO) 1.6 X 10^3 (0.0-1.0); MONOCYTES % (AUTO) 13 % (0-12); NEUTROPHILS # (AUTO) 6.7 X 10^3 (1.8-7.8); NEUTROPHILS % (AUTO) 55 % (42-75); PLATELET COUNT 381 10^3/uL (130-400); RED CELL DISTRIBUTION WIDTH 13.8 % (10.0-14.5); WHITE BLOOD COUNT 12.1 10^3/uL (4.3-11.0)
[2019-02-15] MEDS ORDERED: ACETAMINOPHEN 500 MG TAB (TYLENOL) PO PRN (14:30)
[2019-02-15 14:37] LABS: INR 1.1 (0.8-1.4); PROTHROMBIN TIME PATIENT 14.3 SEC (12.2-14.7)
[2019-02-15 14:39] LABS: ALANINE AMINOTRANSFERASE 8 U/L (0-55); ALBUMIN 2.9 GM/DL (3.2-4.5); ALKALINE PHOSPHATASE 110 U/L (40-136); BILIRUBIN,TOTAL 0.3 MG/DL (0.1-1.0); BUN/CREATININE RATIO 11; CALCIUM 8.3 MG/DL (8.5-10.1); CARBON DIOXIDE 20 MMOL/L (21-32); CHLORIDE 98 MMOL/L (98-107); CREATININE SERUM 0.57 MG/DL (0.60-1.30); GFR ESTIMATED > 60; GLUCOSE 114 MG/DL (70-105); POTASSIUM 3.7 MMOL/L (3.6-5.0); SODIUM 130 MMOL/L (135-145); TOTAL PROTEIN 7.1 GM/DL (6.4-8.2)
[2019-02-15 14:40] LABS: BILIRUBIN,URINE NEGATIVE (NEGATIVE); CLARITY,URINE CLEAR; COLOR,URINE YELLOW; GLUCOSE, URINE (UA) NEGATIVE (NEGATIVE); KETONES,URINE NEGATIVE (NEGATIVE); LEUKOCYTE ESTERASE ,URINE 3+ (NEGATIVE); NITRITE,URINE NEGATIVE (NEGATIVE); PH,URINE 7 (5-9); PROTEIN,URINE 1+ (NEGATIVE); UROBILINOGEN,URINE NORMAL (NORMAL)
[2019-02-15 14:41] LABS: WBC,URINE 25-50 /HPF
[2019-02-15 14:42] LABS: BACTERIA,URINE FEW /HPF
--- NOTE | 2019-02-15 15:17 | Diagnostic Imaging Report ---
PATIENT HISTORY: Fever. TECHNIQUE: Frontal view of the chest. COMPARISON: 01/31/2019. FINDINGS: There is mild deformity of the right chest wall with internal fixation of multiple ribs, which appears similar to the prior exam. No focal consolidation is seen. There is no pleural effusion or pneumothorax. The cardiac silhouette is normal in size and contour. IMPRESSION: No acute pulmonary abnormality is seen. Dictated by: Dictated on workstation # [id number]
[2019-02-15] MEDS ORDERED: PIPERACILLIN SODIUM/TAZOBACTAM 4.5 GM in NS (IVPB) 100 ML IV ONE (15:30)
--- NOTE | 2019-02-15 15:49 | ED General ---
General Chief Complaint: Fever-Adult/Adol Stated Complaint: FEVER Nursing Triage Note: PT TO ROOM 05 VIA EMS WITH C/O FEVER. PT IS A QUADROPLEGIC AFTER FALLING FROM A LADDER LAST YEAR. Nursing Sepsis Screen: No Definite Risk Source of Information: Patient, EMS Exam Limitations: No Limitations History of Present Illness Date Seen by Provider: Feb 15, 2019 Time Seen by Provider: 13:52 Initial Comments Here by EMS with report of fever. Patient is quadriplegic after falling from a ladder earlier this year. He apparently had a low-grade fever and was confused yesterday. He is not confused today but has a higher fever. Has full he catheter and that was last replaced approximately a week ago. Also has large sacral wound that apparently is getting contaminated with feces. Home health was concerned a bout that wound. Patient is able to answer questions and follow simple commands but does appear weak. Timing/Duration: 1-2 Days Severity: Moderate Associated Systoms: No Chest Pain, No Cough; Fever/Chills; No Nausea/Vomiting, No Shortness of Air; Weakness Allergies and Home Medications Allergies Coded Allergies: No Known Drug Allergies (Unverified , 08/25/10) Home Medications Alprazolam 0.5 Mg Tablet, 0.5 MG PO HS PRN for ANXIETY/SLEEP Prescribed by: MARGUERITE GAN on 02/05/192036 Baclofen 10 Mg Tablet, 5 MG PO Q12HR PRN for MUSCLE SPASMS Prescribed by: MARGUERITE GAN on 02/05/192036 Citalopram Hydrobromide 10 Mg Tablet, 10 MG PO DAILY Prescribed by: MARGUERITE GAN on 02/05/192036 Enoxaparin Sodium 40 Mg/0.4 Ml Syringe, 40 MG SC DAILY@1400 Prescribed by: MARGUERITE GAN on 02/05/192036 Famotidine 20 Mg Tablet, 20 MG PO BID Prescribed by: MARGUERITE GAN on 02/05/192036 Insulin Detemir 100 Unit/1 Ml Insuln.pen, 15 UNIT SQ BID Prescribed by: MARGUERITE GAN on 02/05/192036 Ipratropium/Albuterol Sulfate 3 Ml Ampul.neb, 3 ML INH RTBID Prescribed by: MARGUERITE GAN on 02/05/192036 Levofloxacin 750 Mg Tablet, 750 MG PO DAILY@1100 Prescribed by: MARGUERITE GAN on 02/05/192036 Loratadine 10 Mg Tablet, 10 MG PO DAILY Prescribed by: MARGUERITE GAN on 02/05/192036 Melatonin 3 Mg Tablet, 9 MG PO HS Prescribed by: MARGUERITE GAN on 02/05/192036 Miconazole Nitrate 90 Gm Powder, 0 GM TOP BID Prescribed by: MARGUERITE GAN on 02/05/192036 Midodrine HCl 10 Mg Tablet, 10 MG PO TID Prescribed by: MARGUERITE GAN on 02/05/192036 Montelukast Sodium 10 Mg Tablet, 10 MG PO HS Prescribed by: MARGUERITE GAN on 02/05/192036 Phosphate 1 Ea Tablet, 1 EA PO BID Prescribed by: MARGUERITE GAN on 02/05/192036 Potassium Chloride 10 Meq Tablet.er, 10 MEQ PO DAILY@0700 Prescribed by: MARGUERITE GAN on 02/05/192036 Quetiapine Fumarate 25 Mg Tablet, 50 MG PO HS Prescribed by: MARGUERITE GAN on 02/05/192036 Sennosides/Docusate Sodium 1 Each Tablet, 2 EA PO BID Prescribed by: MARGUERITE GAN on 02/05/192036 Sodium Hypochlorite 473 Ml Solution, 0 ML TOP DAILY Prescribed by: MARGUERITE GAN on 02/05/192036 Tramadol HCl 50 Mg Tablet, 50 MG PO BID PRN for PAIN-MODERATE Prescribed by: MARGUERITE GAN on 02/05/192036 Patient Home Medication List Home Medication List Reviewed: Yes Review of Systems Review of Systems Constitutional: see HPI; No chills, No fever EENTM: no symptoms reported Respiratory: no symptoms reported Cardiovascular: no symptoms reported Gastrointestinal: No abdominal pain, No nausea, No vomiting Genitourinary: see HPI Musculoskeletal: see HPI Skin: change in color, lesions All Other Systems Reviewed Negative Unless Noted: Yes Past Wpnszxd-Lbncty-Nbvfqe Hx Past Med/Social Hx: Reviewed Nursing Past Med/Soc Hx Patient Social History Alcohol Use: Denies Use Number of Drinks Today: Alcohol Beverage of Choice: Wine Recreational Drug Use: Yes (10 YEARS AGO) Smoking Status: Former Smoker Type Used: Cigarettes Recent Foreign Travel: No Contact w/Someone Who Travel: No Recent Infectious Disease Expo: No Recent Hopitalizations: Yes (SPINAL CORD INJURY AND AT [facility] 7-19) Physical Abuse: No Sexual Abuse: No Mistreated: No Fear: No Immunizations Up To Date Tetanus Booster (TDap): Unknown PED Vaccines UTD: Yes Date of Pneumonia Vaccine: Sep 04, 2015 Date of Influenza Vaccine: Apr 05, 2017 Seasonal Allergies Seasonal Allergies: Yes (TALL GRASS, ANIMALS) Past Medical History Surgeries: Yes (hernia repair x 2,2 teeth removed,bladder and kidney problems in childhood) Abdominal, Orthopedic Respiratory: Yes (OCCASIONALLY USES INHALER DUE TO OUTSIDE ALLERGENS) COPD Currently Using CPAP: No Currently Using BIPAP: No Cardiac: No Neurological: Yes Neuropathy, Spinal Cord Injury, Traumatic Brain Injury Reproductive Disorders: No Sexually Transmitted Disease: No Genitourinary: Yes (URINARY FREQUENCY) Bladder Infection Gastrointestinal: Yes Gastroesophageal Reflux, Polyps Musculoskeletal: Yes (LEFT FOOT FX/ORIF; CHRONIC FOOT PAIN--NEUROPATHY) Chronic Back Pain, Fractures Endocrine: Yes Diabetes, Insulin dep HEENT: Yes Cataract Cancer: No Psychosocial: Yes Sleep Difficulties, Anxiety Integumentary: No Blood Disorders: No Adverse Reaction/Blood Tranf: No Family Medical History Reviewed Nursing Family Hx Abdominal aortic aneurysm 03 MOTHER (DOESN'T KNOW MOM'S MEDICAL HISTORY) Cancer 03 FATHER (TESTICULAR) Family history: Diabetes mellitus 03 FATHER Family history: Hypertension 03 FATHER No Family History of: Family history: Alzheimer's disease Family history: Arthritis Family history: Breast disease Family history: Cardiovascular disease Family history: Gastrointestinal disease Family history: Thyroid disorder Hereditary disease History of - respiratory disease Myocardial infarction Parkinson's disease Seizure disorder Stroke AAA, Diabetes, Hypertension Physical Exam-Suspected Sepsis Physical Exam Vital Signs Vital Signs - First Documented 02/15/19 13:57 Temp 101.9 Pulse 84 Resp 15 B/P (MAP) 101/70 (80) Pulse Ox 96 O2 Delivery Room Air Capillary Refill : Less Than 3 Seconds Blood Pressure Mean: 92 Height, Weight, BMI Height: 5'3.00" Weight: 133lbs. 8.0oz. 60.608647bg; 26.1 BMI Method:Stated General Appearance: No Apparent Distress, WD/WN HEENT: PERRL/EOMI, Pharynx Normal Neck: Non Tender, Supple Respiratory: Lungs Clear, Normal Breath Sounds Cardiovascular: Regular Rate, Rhythm, No Murmur Gastrointestinal: No Pulsatile Mass, Soft Back: Normal Inspection, Other (quadriplegic and has no feeling below the level of the diaphragm) Extremity: Other (limited range of motion to the upper extremities and paralysis to the lower extremities) Neurologic/Psychiatric: Alert, Oriented x3 Skin: warm/dry, other (large sacral ulcer with surrounding erythema) Focused Exam Lactate Level 02/15/19 13:55: Lactic Acid Level 1.52 Lactic Acid Level Laboratory Tests Test 02/15/19 13:55 Lactic Acid Level 1.52 MMOL/L (0.50-2.00) Procedures/Interventions Date of ETT Placement: Dec 07, 2018 Progress/Results/Core Measures Suspected Sepsis Recent Fever Within 48 Hours: Yes Infection Criteria Present: Suspected New Infection New/Unexplained Altered Menta: No Sepsis Screen: No Definite Risk SIRS Temperature:100.2 Pulse: 82 Respiratory Rate: 16 Laboratory Tests 02/15/19 13:55: White Blood Count 12.1H Blood Pressure 123 /76 Mean: 92 02/15/19 13:55: Lactic Acid Level 1.52 Laboratory Tests 02/15/19 13:55: Creatinine 0.57L, INR Comment 1.1, Platelet Count 381, Total Bilirubin 0.3 Results/Orders Lab Results Laboratory Tests Test 02/15/19 13:55 02/15/19 14:18 Range/Units White Blood Count 12.1 H 4.3-11.0 10^3/uL Red Blood Count 3.68 L 4.35-5.85 10^6/uL Hemoglobin 10.4 L 13.3-17.7 G/DL Hematocrit 31 L 40-54 % Mean Corpuscular Volume 85 80-99 FL Mean Corpuscular Hemoglobin 28 25-34 PG Mean Corpuscular Hemoglobin Concent 33 32-36 G/DL Red Cell Distribution Width 13.8 10.0-14.5 % Platelet Count 381 130-400 10^3/uL Mean Platelet Volume 8.0 7.4-10.4 FL Neutrophils (%) (Auto) 55 42-75 % Lymphocytes (%) (Auto) 32 12-44 % Monocytes (%) (Auto) 13 H 0-12 % Eosinophils (%) (Auto) 0 0-10 % Basophils (%) (Auto) 0 0-10 % Neutrophils # (Auto) 6.7 1.8-7.8 X 10^3 Lymphocytes # (Auto) 3.9 1.0-4.0 X 10^3 Monocytes # (Auto) 1.6 H 0.0-1.0 X 10^3 Eosinophils # (Auto) 0.0 0.0-0.3 10^3/uL Basophils # (Auto) 0.0 0.0-0.1 10^3/uL Prothrombin Time 14.3 12.2-14.7 SEC INR Comment 1.1 0.8-1.4 Activated Partial Thromboplast Time 41 H 24-35 SEC Sodium Level 130 L 135-145 MMOL/L Potassium Level 3.7 3.6-5.0 MMOL/L Chloride Level 98 98-107 MMOL/L Carbon Dioxide Level 20 L 21-32 MMOL/L Anion Gap 12 5-14 MMOL/L Blood Urea Nitrogen 6 L 7-18 MG/DL Creatinine 0.57 L 0.60-1.30 MG/DL Estimat Glomerular Filtration Rate > 60 BUN/Creatinine Ratio 11 Glucose Level 114 H 70-105 MG/DL Lactic Acid Level 1.52 0.50-2.00 MMOL/L Calcium Level 8.3 L 8.5-10.1 MG/DL Corrected Calcium 9.2 8.5-10.1 MG/DL Total Bilirubin 0.3 0.1-1.0 MG/DL Aspartate Amino Transf (AST/SGOT) 16 5-34 U/L Alanine Aminotransferase (ALT/SGPT) 8 0-55 U/L Alkaline Phosphatase 110 40-136 U/L Total Protein 7.1 6.4-8.2 GM/DL Albumin 2.9 L 3.2-4.5 GM/DL Urine Color YELLOW Urine Clarity CLEAR Urine pH 7 5-9 Urine Specific Kingsley 1.005 L 1.016-1.022 Urine Protein 1+ H NEGATIVE Urine Glucose (UA) NEGATIVE NEGATIVE Urine Ketones NEGATIVE NEGATIVE Urine Nitrite NEGATIVE NEGATIVE Urine Bilirubin NEGATIVE NEGATIVE Urine Urobilinogen NORMAL NORMAL MG/DL Urine Leukocyte Esterase 3+ H NEGATIVE Urine RBC (Auto) 5+ H NEGATIVE Urine RBC 10-25 H /HPF Urine WBC 25-50 H /HPF Urine Crystals NONE /LPF Urine Bacteria FEW H /HPF Urine Casts NONE /LPF Urine Mucus NEGATIVE /LPF Urine Culture Indicated YES Micro Results Microbiology 02/15/19 Influenza Types A,B Antigen (CITLALY) - Final, Complete My Orders Orders - MINNIE SALMERON MD Cbc With Automated Diff (02/15/19 14:19) Comprehensive Metabolic Panel (02/15/19 14:19) Blood Culture (02/15/19 14:19) Sputum Culture (02/15/19 14:19) Urinalysis (02/15/19 14:19) Urine Culture (02/15/19 14:19) Protime With Inr (02/15/19 14:19) Partial Thromboplastin Time (02/15/19 14:19) Chest 1 View, Ap/Pa Only (02/15/19 14:19) Acetaminophen Tablet (Tylenol Tablet) (02/15/19 14:30) Ed Iv/Invasive Line Start (02/15/19 14:19) Ed Iv/Invasive Line Start (02/15/19 14:19) Vital Signs Adult Sepsis Patie Q15M (02/15/19 14:19) O2 (02/15/19 14:19) Remove Rings In Anticipation O (02/15/19 14:19) Lactic Acid Analyzer (02/15/19 14:19) Influenza A And B Antigens (02/15/19 14:19) Lactated Ringers (Lr 1000 Ml Iv Solution (02/15/19 14:19) Piperacillin Sodium/Tazobactam (Zosyn Vi (02/15/19 15:30) Wound Culture (02/15/19 15:25) Drug Screen Stat (Urine) (02/15/19 15:53) Medications Given in ED Current Medications Medications Dose Ordered Sig/Leandra Route Start Time Stop Time Status Last Admin Dose Admin Acetaminophen 1,000 mg ONCE PRN PO 02/15/19 14:30 02/15/19 14:45 DC 02/15/19 14:45 1,000 MG Lactated Ringer's 1,000 ml @ 0 mls/hr Q0M ONCE IV 02/15/19 14:19 02/15/19 14:21 DC 02/15/19 14:44 999 MLS/HR Piperacillin Sod/ Tazobactam Sod 4.5 gm/Sodium Chloride 100 ml @ 200 mls/hr ONCE ONCE IV 02/15/19 15:30 02/15/19 15:59 02/15/19 15:49 200 MLS/HR Vital Signs/I&O 02/15/19 02/15/19 02/15/19 13:57 14:45 14:53 Temp 101.9 101.9 100.2 Pulse 84 82 Resp 15 16 B/P (MAP) 101/70 (80) 123/76 Pulse Ox 96 99 O2 Delivery Room Air Room Air Capillary Refill : Less Than 3 Seconds Blood Pressure Mean: 92 Progress Note : Progress Note Seen and evaluated. IV by EMS. Labs, blood cultures, lactic acid, wound culture from sacral wound, UA and chest x-ray ordered. Zamarripa catheter replaced prior to urine culture being obtained. Patient has normal saline 1 L bolus running. LR 1 L bolus ordered. Monitor patient. 1545: Zosyn 4.5 grams IV ordered for suspected sacral wound infection as well as urinary tract infection. I did discuss the case with Dr. Gan [phone] and she accepts patient for admission. She requests consult with Dr. Ricky Arcos. 06/25/06: I have spoken with both of them and they set patient for consult. I did discuss the patient with his who agrees with admission. Admit, inpatient status. Diagnostic Imaging Diagonstic Imaging: Xray Plain Films/CT/US/NM/MRI: chest Comments [email or web address] [place], [place] NAME: VIRGINIA LOO [facility] REC#: [id number] PT STATUS: REG ER : 1965 PHYSICIAN: MINNIE SALMERON MD ADMIT DATE: 02/15/19/ER Draft Date of Exam:02/15/19 CHEST 1 VIEW, AP/PA ONLY PATIENT HISTORY: Fever. TECHNIQUE: Frontal view of the chest. COMPARISON: 01/31/2019. FINDINGS: There is mild deformity of the right chest wall with internal fixation of multiple ribs, which appears similar to the prior exam. No focal consolidation is seen. There is no pleural effusion or pneumothorax. The cardiac silhouette is normal in size and contour. IMPRESSION: No acute pulmonary abnormality is seen. Dictated on workstation # [id number] Dict: 02/15/19 1513 Trans: 02/15/19 1516 [id number] Interpreted by: GAB LAYNE MD Electronically signed by: Departure Communication (Admissions) Time/Spoke to Admitting Phy: 15:51 Time/Spoke to Consulting Phy: 16:05 Impression Primary Impression: Sepsis Qualified Codes: A41.9 - Sepsis, unspecified organism Additional Impressions: UTI (urinary tract infection) Qualified Codes: N30.00 - Acute cystitis without hematuria Sacral decubitus ulcer, stage IV Disposition: ADMITTED INPATIENT Condition: Stable Admissions Decision to Admit Reason: Admit from ER (General) Decision to Admit/Date: Feb 15, 2019 Time/Decision to Admit Time: 15:51 Departure-Patient Inst. Ref[place]: [facility] [place] Primary Care Physician MINNIE SALMERON MD Feb 15, 2019 15:49
[2019-02-15 16:19] LABS: AMPHETAMINE SCREEN, URINE NEGATIVE (NEGATIVE); BARBITURATE SCREEN URINE NEGATIVE (NEGATIVE); BENZODIAZEPINES SCREEN URINE POSITIVE (NEGATIVE); CANNABINOID SCREEN, URINE POSITIVE (NEGATIVE); COCAINE SCREEN URINE NEGATIVE (NEGATIVE); METHAMPHETAMINE SCREEN URINE S NEGATIVE (NEGATIVE); OPIATE SCREEN URINE POSITIVE (NEGATIVE); TRICYCLIC ANTIDEPRESSANTS SCRE NEGATIVE (NEGATIVE)
[2019-02-15 16:20] LABS: METHADONE STAT NEGATIVE (NEGATIVE); OXYCODONE STAT NEGATIVE (NEGATIVE); PROPOXYPHENE STAT NEGATIVE (NEGATIVE)
[2019-02-15] MEDS ORDERED: NS IV 1000 ML 1,000 ML ONE (18:22)
--- NOTE | 2019-02-15 18:25 | NUR ---
VIRGINIA LOO admitted to room 426-1, with an admitting diagnosis of SEPSIS, UTI, SACRAL WOUND, on 02/15/19 from ER via [facility], accompanied by .VIRGINIA LOO introduced to surroundings, call light, bed controls, phone, TV, temperature control, lights, meal times, smoking policy, visitor policy, side rail policy, bathrooms and showers. Patient Rights given to patient in the handbook. VIRGINIA LOO verbalizes understanding that [facility] is not responsible for the loss or damage to any personal effects or valuables that are kept in the patients posession during their hospitalization. VIRGINIA LOO verbalizes understanding of Interdisciplinary Patient Education. Patient and/or family were informed about the Rapid Response Team and its purpose.
[2019-02-15 18:27] VITALS: BP 124/71
[2019-02-15] MEDS: NS IV 1000 ML 1,000 ML IV SCH (18:45)
[2019-02-15] MEDS ORDERED: CATHETER FLUSH 10 ML SYR IV PRN (19:00)
[2019-02-15] MEDS ORDERED: ONDANSETRON 4 MG/2 ML (SDV) Z0FRAN IV PRN (19:15)
[2019-02-15 19:39] VITALS: BP 110/70
[2019-02-15] MEDS: ACETAMINOPHEN 325 MG TABLET PO PRN (20:00)
[2019-02-15] MEDS: PIPERACILLIN/TAZO 4.5 GM/NS 100 ML IV SCH ×2 (20:01)
[2019-02-15] MEDS ORDERED: BACLOFEN 10 MG (LIORESAL) TAB PO PRN (21:45)
[2019-02-15] MEDS ORDERED: ALPRAZolam 0.5 MG (XANAX) TAB ONE (22:30)
[2019-02-15] MEDS: ALPRAZolam 0.5 MG (XANAX) TAB PO PRN (23:00)
[2019-02-16 00:25] VITALS: BP 116/62
[2019-02-16 04:30] VITALS: BP 126/76
[2019-02-16] MEDS: KCL 10 MEQ TAB (MICRO K) PO SCH (06:00)
[2019-02-16] MEDS: NS IV 1000 ML 1,000 ML IV SCH (06:00)
[2019-02-16] MEDS: PIPERACILLIN/TAZO 4.5 GM/NS 100 ML IV SCH ×6 (06:00→22:06)
[2019-02-16] MEDS: inSUlin ASPART (NovoLOG) 1 UNIT/0.01 ML (CHARGE PER UNIT) SC SCH ×4 (06:02→20:57)
--- NOTE | 2019-02-16 06:03 | NUR ---
pt has been turned and repositioned every 2 hours or more throughout the night offered drinks with each care. meds have been given as ordered iv site remains patents goodman care given sacral drg remains in place. vss no distress had been noted.. pt is mad with staff because we will not stay in the room at all times.. staff explained to pt that we can not stay in the room with him as we have other pts that need our care as well..
[2019-02-16 06:22] LABS: BASOPHILS % (AUTO) 0 % (0-10); EOSINOPHILS # (AUTO) 0.1 10^3/uL (0.0-0.3); EOSINOPHILS % (AUTO) 2 % (0-10); HEMATOCRIT 29 % (40-54); HEMOGLOBIN 9.4 G/DL (13.3-17.7); LYMPHOCYTES # (AUTO) 2.2 X 10^3 (1.0-4.0); LYMPHOCYTES % (AUTO) 33 % (12-44); MEAN CORPUSCULAR HEMOGLOBIN 29 PG (25-34); MEAN CORPUSCULAR HGB CONC 33 G/DL (32-36); MEAN CORPUSCULAR VOLUME 88 FL (80-99); MEAN PLATELET VOLUME 7.9 FL (7.4-10.4); MONOCYTES % (AUTO) 16 % (0-12); NEUTROPHILS # (AUTO) 3.3 X 10^3 (1.8-7.8); NEUTROPHILS % (AUTO) 50 % (42-75); PLATELET COUNT 312 10^3/uL (130-400); RED CELL DISTRIBUTION WIDTH 13.6 % (10.0-14.5); WHITE BLOOD COUNT 6.6 10^3/uL (4.3-11.0)
[2019-02-16 06:43] LABS: ALANINE AMINOTRANSFERASE 12 U/L (0-55); ALBUMIN 2.7 GM/DL (3.2-4.5); ALKALINE PHOSPHATASE 81 U/L (40-136); BILIRUBIN,TOTAL 0.2 MG/DL (0.1-1.0); BUN/CREATININE RATIO 11; CALCIUM 8.3 MG/DL (8.5-10.1); CARBON DIOXIDE 20 MMOL/L (21-32); CHLORIDE 106 MMOL/L (98-107); CREATININE SERUM 0.54 MG/DL (0.60-1.30); GFR ESTIMATED > 60; GLUCOSE 98 MG/DL (70-105); POTASSIUM 3.6 MMOL/L (3.6-5.0); SODIUM 137 MMOL/L (135-145); TOTAL PROTEIN 6.3 GM/DL (6.4-8.2)
[2019-02-16 08:00] VITALS: BP 144/83
--- NOTE | 2019-02-16 08:25 | Pulmonary Consultation ---
History of Present Illness History of Present Illness Date of Consultation 02/16/19 08:19 Time Seen by Provider: 08:19 Date of Admission History of Present Illness 53yo with hx of quadriplegia secondary to falling off ladder presented to ED secondary fever, confusion. Pt was found to have a large sacral wound contaminated with feces. Pt was admitted to 4th floor for close observation. Pt has a hx of tracheostomy that was recently discontinued. I am consulted for pulmonary management. Allergies and Home Medications Allergies Coded Allergies: No Known Drug Allergies (Unverified , 02/15/19) Home Medications Alprazolam 0.5 Mg Tablet, 0.5 MG PO HS PRN for ANXIETY/SLEEP Prescribed by: MARGUERITE GAN on 02/05/192036 Baclofen 10 Mg Tablet, 5 MG PO Q12HR PRN for MUSCLE SPASMS Prescribed by: MARGUERITE GAN on 02/05/192036 Citalopram Hydrobromide 10 Mg Tablet, 10 MG PO DAILY Prescribed by: MARGUERITE GAN on 02/05/192036 Enoxaparin Sodium 40 Mg/0.4 Ml Syringe, 40 MG SC DAILY@1400 Prescribed by: MARGUERITE GAN on 02/05/192036 Famotidine 20 Mg Tablet, 20 MG PO BID Prescribed by: MARGUERITE GAN on 02/05/192036 Insulin Detemir 100 Unit/1 Ml Insuln.pen, 15 UNIT SQ BID Prescribed by: MARGUERITE GAN on 02/05/192036 Ipratropium/Albuterol Sulfate 3 Ml Ampul.neb, 3 ML INH RTBID Prescribed by: MARGUERITE GAN on 02/05/192036 Levofloxacin 750 Mg Tablet, 750 MG PO DAILY@1100 Prescribed by: MARGUERITE GAN on 02/05/192036 Loratadine 10 Mg Tablet, 10 MG PO DAILY Prescribed by: MARGUERITE GAN on 02/05/192036 Melatonin 3 Mg Tablet, 9 MG PO HS Prescribed by: MARGUERITE GAN on 02/05/192036 Miconazole Nitrate 90 Gm Powder, 0 GM TOP BID Prescribed by: MARGUERITE GAN on 02/05/192036 Midodrine HCl 10 Mg Tablet, 10 MG PO TID Prescribed by: MARGUERITE GAN on 02/05/192036 Montelukast Sodium 10 Mg Tablet, 10 MG PO HS Prescribed by: MARGUERITE GAN on 02/05/192036 Phosphate 1 Ea Tablet, 1 EA PO BID Prescribed by: MARGUERITE GAN on 02/05/192036 Potassium Chloride 10 Meq Tablet.er, 10 MEQ PO DAILY@0700 Prescribed by: MARGUERITE GAN on 02/05/192036 Quetiapine Fumarate 25 Mg Tablet, 50 MG PO HS Prescribed by: MARGUERITE GAN on 02/05/192036 Sennosides/Docusate Sodium 1 Each Tablet, 2 EA PO BID Prescribed by: MARGUERITE GAN on 02/05/192036 Sodium Hypochlorite 473 Ml Solution, 0 ML TOP DAILY Prescribed by: MARGUERITE GAN on 02/05/192036 Tramadol HCl 50 Mg Tablet, 50 MG PO BID PRN for PAIN-MODERATE Prescribed by: MARGUERITE GAN on 02/05/192036 Past Wkmxsuw-Klcfrq-Zgawoe Hx Past Med/Social Hx: Reviewed Nursing Past Med/Soc Hx Patient Social History Alcohol Use: Denies Use Number of Drinks Today: Alcohol Beverage of Choice: Wine Recreational Drug Use: Yes (10 YEARS AGO) Smoking Status: Former Smoker Type Used: Cigarettes Recent Foreign Travel: No Contact w/Someone Who Travel: No Recent Infectious Disease Expo: No Recent Hopitalizations: Yes (SPINAL CORD INJURY AND AT [facility] 7-19) Physical Abuse: No Sexual Abuse: No Mistreated: No Fear: No Immunizations Up To Date Tetanus Booster (TDap): Unknown PED Vaccines UTD: Yes Date of Pneumonia Vaccine: Sep 04, 2015 Date of Influenza Vaccine: Apr 05, 2017 Seasonal Allergies Seasonal Allergies: Yes (TALL GRASS, ANIMALS) Past Medical History Surgeries: Yes (hernia repair x 2,2 teeth removed,bladder and kidney problems in childhood) Abdominal, Orthopedic Respiratory: Yes (OCCASIONALLY USES INHALER DUE TO OUTSIDE ALLERGENS) COPD Currently Using CPAP: No Currently Using BIPAP: No Cardiac: No Neurological: Yes Neuropathy, Spinal Cord Injury, Traumatic Brain Injury Reproductive Disorders: No Sexually Transmitted Disease: No Genitourinary: Yes (URINARY FREQUENCY) Bladder Infection Gastrointestinal: Yes Gastroesophageal Reflux, Polyps Musculoskeletal: Yes (LEFT FOOT FX/ORIF; CHRONIC FOOT PAIN--NEUROPATHY) Chronic Back Pain, Fractures Endocrine: Yes Diabetes, Insulin dep HEENT: Yes Cataract Cancer: No Psychosocial: Yes Sleep Difficulties, Anxiety Integumentary: No Blood Disorders: No Adverse Reaction/Blood Tranf: No Family Medical History Reviewed Nursing Family Hx Abdominal aortic aneurysm 03 MOTHER (DOESN'T KNOW MOM'S MEDICAL HISTORY) Cancer 03 FATHER (TESTICULAR) Family history: Diabetes mellitus 03 FATHER Family history: Hypertension 03 FATHER No Family History of: Family history: Alzheimer's disease Family history: Arthritis Family history: Breast disease Family history: Cardiovascular disease Family history: Gastrointestinal disease Family history: Thyroid disorder Hereditary disease History of - respiratory disease Myocardial infarction Parkinson's disease Seizure disorder Stroke AAA, Diabetes, Hypertension Review of Systems Time Seen by Provider: 08:25 Constitutional: Fever, Chills, Sweats, Weakness, Malaise, Other Eyes: No: Pain, Vision change, Conjunctivae inflammation, Eyelid inflammation, Other, Redness ENT: Nose congestion; No: Ear pain, Ear discharge, Nose pain, Nose discharge, Mouth pain, Mouth swelling, Throat pain, Throat swelling, Other Respiratory: No: Cough, Dry, Shortness of breath, SOB with excertion, Wheezing, Hemoptysis, Pleuritic Pain, Sputum, Wheezing, Other Cardiovascular: No: Chest Pain, Palpitations, Orthopnea, Paroxysmal Noc. Dyspnea, Edema, Lt Headedness, Other Sepsis Event Evaluation Height, Weight, BMI Height: 5'3.00" Weight: 147lbs. 4.0oz. [id number]; 26.1 BMI Method:Stated Exam Exam Vital Signs Date Time Temp Pulse Resp B/P (MAP) Pulse Ox O2 Delivery O2 Flow Rate FiO2 02/16/19 04:30 97.0 73 18 126/76 (93) 97 02/16/19 00:53 66 02/16/19 00:25 97.5 64 18 116/62 (80) 97 Room Air 02/15/19 20:00 97.8 02/15/19 20:00 99 Room Air 02/15/19 19:39 97.8 67 18 110/70 (83) 99 Room Air 02/15/19 19:23 65 02/15/19 18:27 97.2 63 20 124/71 97 Room Air 02/15/19 18:25 Room Air 02/15/19 17:57 99.9 77 18 125/78 (94) 96 Room Air 02/15/19 14:53 100.2 82 16 123/76 99 Room Air 02/15/19 14:45 101.9 02/15/19 13:57 101.9 84 15 101/70 (80) 96 Room Air I & O 02/16/19 07:00 Intake Total 5700 ml Output Total 2000 ml Balance 3700 ml Height & Weight Height: 5'3.00" Weight: 147lbs. 4.0oz. 66.184116vl; 26.1 BMI Method:Stated General Appearance: No Apparent Distress, WD/WN HEENT: PERRL/EOMI, Pharynx Normal Neck: Non Tender, Supple Respiratory: Lungs Clear, Normal Breath Sounds Cardiovascular: Regular Rate, Rhythm, No Murmur Capillary Refill: Less Than 3 Seconds Extremity: Other (limited range of motion to the upper extremities and paralysis to the lower extremities) Neurologic/Psychiatric: Alert, Oriented x3 Results Lab Laboratory Tests 02/15/19 13:55 02/16/19 05:20 Assessment/Plan Assessment/Plan Sepsis secondary to wound sepsis -Wound care -Continue abx -Lopez culture Marijuana use -UDS is positive -HX of illicit drug use ALONDRA HUSSEIN DO Feb 16, 2019 08:25
[2019-02-16] MEDS: POT PHOS/NA PHOS (K-PHOS NEUTRAL) PO SCH ×2 (08:50→20:54)
[2019-02-16] MEDS: MIDODRINE 10 MG (PROAMATINE) TAB PO SCH ×3 (08:50→20:54)
[2019-02-16] MEDS: SENNA W/DOCUSATE (SENOKOT S) TABLET PO SCH ×2 (08:50→20:54)
[2019-02-16] MEDS: LORATADINE (CLARITIN) 10 MG TAB PO SCH (08:51)
[2019-02-16] MEDS: FAMOTIDINE 20 MG (PEPCID) TABLET PO SCH ×2 (08:51→20:54)
[2019-02-16] MEDS: MICONAZOLE 2% POWDER (DESENEX AF) 90 GM TOP SCH ×2 (08:52→20:56)
[2019-02-16] MEDS: DAKIN'S 1/4 STRENGTH (0.125%) 473 ML BTL TOP SCH (08:52)
[2019-02-16] MEDS ORDERED: DOCUSATE SODIUM PO SCH (09:00)
[2019-02-16] MEDS ORDERED: [UNRECOGNIZED DRUG - OTHER] PO SCH (09:00)
[2019-02-16] MEDS ORDERED: SENNOSIDES PO SCH (09:00)
[2019-02-16] MEDS ORDERED: NON-FORMULARY MEDICATION 1 EA EA (Famotidine 20 MG) PO SCH (09:00)
[2019-02-16] MEDS: RT-ALBUTEROL/IPRATROPIUM 3 ML (DUONEB) VIAL INH SCH ×2 (09:08→18:48)
--- NOTE | 2019-02-16 09:24 | Consultation - Surgery ---
History of Present Illness History of Present Illness Patient Consulted On(harinder/time) 02/16/19 09:19 Time Seen by Provider: 08:51 History of Present Illness Surgery asked to consult regarding sepsis and sacral decub, with fecal material contaminating decub. HPI per ED: Here by EMS with report of fever. Patient is quadriplegic after falling from a ladder earlier this year. He apparently had a low-grade fever and was confused yesterday. He is not confused today but has a higher fever. Has full he catheter and that was last replaced approximately a week ago. Also has large sacral wound that apparently is getting contaminated with feces. Home health was concerned about that wound. Patient is able to answer questions and follow simple commands but does appear weak. Timing/Duration: 1-2 Days Severity: Moderate Associated Systoms: No Chest Pain, No Cough; Fever/Chills; No Nausea/Vomiting, No Shortness of Air; Weakness When I spoke to pt this am he states he was feeling "bad" and is starting to get some feeling in the sacral area. He also complained of burning in the genital area. He described being run down and tired. Allergies and Home Medications Allergies Coded Allergies: No Known Drug Allergies (Unverified , 02/15/19) Home Medications Alprazolam 0.5 Mg Tablet, 0.5 MG PO HS PRN for ANXIETY/SLEEP Prescribed by: MARGUERITE GAN on 02/05/192036 Baclofen 10 Mg Tablet, 5 MG PO Q12HR PRN for MUSCLE SPASMS Prescribed by: MARGUERITE GAN on 02/05/192036 Citalopram Hydrobromide 10 Mg Tablet, 10 MG PO DAILY Prescribed by: MARGUERITE GAN on 02/05/192036 Enoxaparin Sodium 40 Mg/0.4 Ml Syringe, 40 MG SC DAILY@1400 Prescribed by: MARGUERITE GAN on 02/05/192036 Famotidine 20 Mg Tablet, 20 MG PO BID Prescribed by: MARGUERITE GAN on 02/05/192036 Insulin Detemir 100 Unit/1 Ml Insuln.pen, 15 UNIT SQ BID Prescribed by: MARGUERITE GAN on 02/05/192036 Ipratropium/Albuterol Sulfate 3 Ml Ampul.neb, 3 ML INH RTBID Prescribed by: MARGUERITE GAN on 02/05/192036 Levofloxacin 750 Mg Tablet, 750 MG PO DAILY@1100 Prescribed by: MARGUERITE GAN on 02/05/192036 Loratadine 10 Mg Tablet, 10 MG PO DAILY Prescribed by: MARGUERITE GAN on 02/05/192036 Melatonin 3 Mg Tablet, 9 MG PO HS Prescribed by: MARGUERITE GAN on 02/05/192036 Miconazole Nitrate 90 Gm Powder, 0 GM TOP BID Prescribed by: MARGUERITE GAN on 02/05/192036 Midodrine HCl 10 Mg Tablet, 10 MG PO TID Prescribed by: MARGUERITE GAN on 02/05/192036 Montelukast Sodium 10 Mg Tablet, 10 MG PO HS Prescribed by: MARGUERITE GAN on 02/05/192036 Phosphate 1 Ea Tablet, 1 EA PO BID Prescribed by: MARGUERITE GAN on 02/05/192036 Potassium Chloride 10 Meq Tablet.er, 10 MEQ PO DAILY@0700 Prescribed by: MARGUERITE GAN on 02/05/192036 Quetiapine Fumarate 25 Mg Tablet, 50 MG PO HS Prescribed by: MARGUERITE GAN on 02/05/192036 Sennosides/Docusate Sodium 1 Each Tablet, 2 EA PO BID Prescribed by: MARGUERITE GAN on 02/05/192036 Sodium Hypochlorite 473 Ml Solution, 0 ML TOP DAILY Prescribed by: MARGUERITE GAN on 02/05/192036 Tramadol HCl 50 Mg Tablet, 50 MG PO BID PRN for PAIN-MODERATE Prescribed by: MARGUERITE GAN on 02/05/192036 Patient Home Medication List Home Medication List Reviewed: Yes Past Isqgagc-Gdulpz-Cdjkeh Hx Patient Social History Alcohol Use: Denies Use Number of Drinks Today: Recreational Drug Use: Yes (10 YEARS AGO) Smoking Status: Former Smoker Type Used: Cigarettes Recent Foreign Travel: No Contact w/Someone Who Travel: No Recent Infectious Disease Expo: No Recent Hopitalizations: Yes (SPINAL CORD INJURY AND AT [facility] 7-19) Immunizations Up To Date Tetanus Booster (TDap): Unknown PED Vaccines UTD: Yes Date of Pneumonia Vaccine: Sep 04, 2015 Date of Influenza Vaccine: Apr 05, 2017 Seasonal Allergies Seasonal Allergies: Yes (TALL GRASS, ANIMALS) Surgeries History of Surgeries: Yes (hernia repair x 2,2 teeth removed,bladder and kidney problems in childhood) Surgeries: Abdominal, Orthopedic Respiratory History of Respiratory Disorde: Yes (OCCASIONALLY USES INHALER DUE TO OUTSIDE ALLERGENS) Respiratory Disorders: COPD Cardiovascular History of Cardiac Disorders: No Neurological History of Neurological Disord: Yes Neurological Disorders: Neuropathy, Spinal Cord Injury, Traumatic Brain Injury Reproductive System Hx Reproductive Disorders: No Sexually Transmitted Disease: No Genitourinary History of Genitourinary Disor: Yes (URINARY FREQUENCY) Genitourinary Disorders: Bladder Infection Gastrointestinal History of Gastrointestinal Di: Yes Gastrointestinal Disorders: Gastroesophageal Reflux, Polyps Musculoskeletal History of Musculoskeletal Dis: Yes (LEFT FOOT FX/ORIF; CHRONIC FOOT PAIN--NEUROPATHY) Musculoskeletal Disorders: Chronic Back Pain, Fractures Endocrine History of Endocrine Disorders: Yes Endocrine Disorders: Diabetes, Insulin dep HEENT History of HEENT Disorders: Yes HEENT Disorders: Cataract Cancer History of Cancer: No Psychosocial History of Psychiatric Problem: Yes Behavioral Health Disorders: Sleep Difficulties, Anxiety Integumentary History of Skin or Integumenta: No Blood Transfusions History of Blood Disorders: No Adverse Reaction to a Blood Tr: No Family Medical History Significant Family History: AAA, Diabetes, Hypertension Family Medial History: Abdominal aortic aneurysm 03 MOTHER (DOESN'T KNOW MOM'S MEDICAL HISTORY) Cancer 03 FATHER (TESTICULAR) Family history: Diabetes mellitus 03 FATHER Family history: Hypertension 03 FATHER No Family History of: Family history: Alzheimer's disease Family history: Arthritis Family history: Breast disease Family history: Cardiovascular disease Family history: Gastrointestinal disease Family history: Thyroid disorder Hereditary disease History of - respiratory disease Myocardial infarction Parkinson's disease Seizure disorder Stroke Review of Systems-General Constitutional: diaphoresis, malaise, weakness EENTM: other (neck in C-collar, still has fracture); No blurred vision, No double vision, No eye pain, No throat swelling Respiratory: No cough, No hemoptysis, No short of breath Cardiovascular: No chest pain, No palpitations Gastrointestinal: No abdominal pain, No dysphagia, No hematemesis, No melena Genitourinary: dysuria, frequency; No hematuria Musculoskeletal: joint pain, muscle stiffness, muscle cramps Skin: No change in color, No change in hair/nails; other (sacral decub) Psychiatric/Neurological: Denies Emotional Problems; Pre-Existing Deficit, Weakness Other pt denies any hx of abnormal bleeding or bruising. Physical Exam-General Problems Physical Exam Vital Signs Vital Signs - First Documented 02/15/19 13:57 Temp 101.9 Pulse 84 Resp 15 B/P (MAP) 101/70 (80) Pulse Ox 96 O2 Delivery Room Air Capillary Refill : Less Than 3 SecondsLess Than 3 Seconds General Appearance: WD/WN, no apparent distress Eyes: Bilateral Eye PERRL, Bilateral Eye EOMI HEENT: pharynx normal; No scleral icterus (R), No scleral icterus (L); other (poor dentition) Neck: No full range of motion; other (c-collar) Respiratory: chest non-tender, lungs clear, normal breath sounds, no respiratory distress, no accessory muscle use Cardiovascular: regular rate, rhythm, no murmur Gastrointestinal: normal bowel sounds, soft, no organomegaly, distended (may be his normal body habitus), other (sacral decub with necrotic tissue at base on top of sacrum, some tissue on right may be necrotic, edges look ok) Back: no CVA tenderness, no vertebral tenderness Extremities: no pedal edema, other (paralyzed lower extremtities) Neurologic/Psychiatric: alert, normal mood/affect, oriented x 3 Skin: normal color, warm/dry Lymphatic: no adenopathy (neck, axilla or groin) Data Review Labs Laboratory Tests 02/15/19 13:55: White Blood Count 12.1H, Red Blood Count 3.68L, Hemoglobin 10.4L, Hematocrit 31L , Mean Corpuscular Volume 85, Mean Corpuscular Hemoglobin 28, Mean Corpuscular Hemoglobin Concent 33, Red Cell Distribution Width 13.8, Platelet Count 381, Mean Platelet Volume 8.0, Neutrophils (%) (Auto) 55, Lymphocytes (%) (Auto) 32, Monocytes (%) (Auto) 13H, Eosinophils (%) (Auto) 0, Basophils (%) (Auto) 0, Neutrophils # (Auto) 6.7, Lymphocytes # (Auto) 3.9, Monocytes # (Auto) 1.6H, Eosinophils # (Auto) 0.0, Basophils # (Auto) 0.0, Prothrombin Time 14.3, INR Comment 1.1, Activated Partial Thromboplast Time 41H, Sodium Level 130L, Potassium Level 3.7, Chloride Level 98, Carbon Dioxide Level 20L, Anion Gap 12, Blood Urea Nitrogen 6L, Creatinine 0.57L, Estimat Glomerular Filtration Rate > 60, BUN/Creatinine Ratio 11, Glucose Level 114H, Lactic Acid Level 1.52, Calcium Level 8.3L, Corrected Calcium 9.2, Total Bilirubin 0.3, Aspartate Amino Transf (AST/SGOT) 16, Alanine Aminotransferase (ALT/SGPT) 8, Alkaline Phosphatase 110, Total Protein 7.1, Albumin 2.9L 02/15/19 14:18: Urine Color YELLOW, Urine Clarity CLEAR, Urine pH 7, Urine Specific [place] 1.005L, Urine Protein 1+H, Urine Glucose (UA) NEGATIVE, Urine Ketones NEGATIVE, Urine Nitrite NEGATIVE, Urine Bilirubin NEGATIVE, Urine Urobilinogen NORMAL, Urine Leukocyte Esterase 3+H, Urine RBC (Auto) 5+H, Urine RBC 10-25H, Urine WBC 25-50H, Urine Crystals NONE, Urine Bacteria FEWH, Urine Casts NONE, Urine Mucus NEGATIVE, Urine Culture Indicated YES, Urine Opiates Screen POSITIVEH, Urine Oxycodone Screen NEGATIVE, Urine Methadone Screen NEGATIVE, Urine Propoxyphene Screen NEGATIVE, Urine Barbiturates Screen NEGATIVE, Ur Tricyclic Antidepre ssants Screen NEGATIVE, Urine Phencyclidine Screen NEGATIVE, Urine Amphetamines Screen NEGATIVE, Urine Methamphetamines Screen NEGATIVE, Urine Benzodiazepines Screen POSITIVEH, Urine Cocaine Screen NEGATIVE, Urine Cannabinoids Screen POSITIVEH 02/16/19 05:20: White Blood Count 6.6, Red Blood Count 3.23L, Hemoglobin 9.4L, Hematocrit 29L, Mean Corpuscular Volume 88, Mean Corpuscular Hemoglobin 29, Mean Corpuscular Hemoglobin Concent 33, Red Cell Distribution Width 13.6, Platelet Count 312, Mean Platelet Volume 7.9, Neutrophils (%) (Auto) 50, Lymphocytes (%) (Auto) 33, Monocytes (%) (Auto) 16H, Eosinophils (%) (Auto) 2, Basophils (%) (Auto) 0, Neutrophils # (Auto) 3.3, Lymphocytes # (Auto) 2.2, Monocytes # (Auto) 1.0, Eosinophils # (Auto) 0.1, Basophils # (Auto) 0.0, Sodium Level 137, Potassium Level 3.6, Chloride Level 106, Carbon Dioxide Level 20L, Anion Gap 11, Blood Urea Nitrogen 6L, Creatinine 0.54L, Estimat Glomerular Filtration Rate > 60, BUN/Creatinine Ratio 11, Glucose Level 98, Calcium Level 8.3L, Corrected Calcium 9.3, Total Bilirubin 0.2, Aspartate Amino Transf (AST/SGOT) 15, Alanine Aminotransferase (ALT/SGPT) 12, Alkaline Phosphatase 81, Total Protein 6.3L, Albumin 2.7L 02/16/19 06:00: Glucometer 108 Microbiology 02/15/19 Influenza Types A,B Antigen (CITLALY) - Final, Complete 02/15/19 Gram Stain - Final, Resulted 02/15/19 Wound Culture, Resulted Pending Assessment/Plan Assessment/Plan Assessment/Plan Sepsis probably secondary to UTI Sacral Decub Pt had dressing changed with Dakins solution and wound care has been consulted to place Wound VAC. Pt probably will need some minimal debridement at base of wound; but he thinks he may be going home soon. The debridement can be done in my office. Continue good local wound care and ABX for UTI. Clinical Quality Measures DVT/VTE Risk/Contraindication: Risk Factor Score Per Nursin RFS Level Per Nursing on Admit: 4+=Very High EDMUND ALAMO DO Feb 16, 2019 09:24
--- NOTE | 2019-02-16 10:55 | History & Physical-Hospitalist ---
History of Present Illness HPI/Chief Complaint Chief complaint: Fever and quadriplegic History of present illness: This is a 53-year-old white male known to me from inpatient rehab stay for 30 days just discharged last week who had suffered a cervical spine surgery of C4 and subsequent residual quadriplegia with regaining a little bit of function in the right arm who insisted on discharging home to be with his family with home health which included Zamarripa catheter maintenance for neurogenic bladder and wound care for decubitus ulcer who presented to the ER after home health became concerned that he was running a fever and hallucinating. Apparently he was assessed in the ER found to have negative influenza screen but 101.9 fever and elevated white count consistent with sepsis. Is placed on empiric antibiotics of Zosyn and IV fluids and Dr. García was consulted for decubitus ulcer care and wound VAC was placed. He is feeling much better has no hallucinations and wondering when he can actually get his catheter out but that has been delayed because of his decubitus ulcer. Source: patient Date Seen 02/16/19 Time Seen by a Provider: 09:00 Attending Physician Maciel García DO [facility] Center/[facility] [place],[facility] Referring Physician Date of Admission Feb 15, 2019 at 16:05 Home Medications & Allergies Home Medications Reviewed patient Home Medication Reconciliation performed by pharmacy medication reconciliations certified phlebotomy technician and/or nursing. Patients Allergies have been reviewed. Allergies Allergies Coded Allergies No Known Drug Allergies (Unverified02/15/19) Past Bdrxqzz-Gcflmb-Osrhuy Hx Past Med/Social Hx: Reviewed Nursing Past Med/Soc Hx, Reviewed and Corrections made Patient Social History Marrital Status: Employed/Student: unemployed Alcohol Use: Denies Use Number of Drinks Today: Alcohol Beverage of Choice: Wine Recreational Drug Use: Yes (10 YEARS AGO) Smoking Status: Former Smoker Type Used: Cigarettes Recent Foreign Travel: No Contact w/other who traveled: No Recent Hopitalizations: Yes (SPINAL CORD INJURY AND AT [place] 7-) Recent Infectious Disease Expo: No Immunizations Up To Date Tetanus Booster (TDap): Unknown Pediatric: Yes Date of Pneumonia Vaccine: Sep 04, 2015 Date of Influenza Vaccine: Apr 05, 2017 Seasonal Allergies Seasonal Allergies: Yes (TALL GRASS, ANIMALS) Past Medical History Surgeries: Abdominal, Orthopedic C3-C7 neurosurgery with decompression laminectomy, rib plating right Respiratory: Pneumonia Currently Using CPAP: No Currently Using BIPAP: No Neurological: Neuropathy, Spinal Cord Injury, Traumatic Brain Injury Reproductive: No Sexually Transmitted Disease: No Genitourinary: Bladder Infection Gastrointestinal: Gastroesophageal Reflux, Polyps Musculoskeletal: Chronic Back Pain, Fractures Quad Endocrine: Diabetes, Insulin dep HEENT: Cataract Psychosocial: Sleep Difficulties, Anxiety History of Blood Disorders: No Adverse Reaction to Blood Mcclellan: No Family History Reviewed Nursing Family Hx Abdominal aortic aneurysm 03 MOTHER (DOESN'T KNOW MOM'S MEDICAL HISTORY) Cancer 03 FATHER (TESTICULAR) Family history: Diabetes mellitus 03 FATHER Family history: Hypertension 03 FATHER No Family History of: Family history: Alzheimer's disease Family history: Arthritis Family history: Breast disease Family history: Cardiovascular disease Family history: Gastrointestinal disease Family history: Thyroid disorder Hereditary disease History of - respiratory disease Myocardial infarction Parkinson's disease Seizure disorder Stroke AAA, Diabetes, Hypertension Review of Systems Constitutional: see HPI EENTM: no symptoms reported Respiratory: no symptoms reported Cardiovascular: no symptoms reported Gastrointestinal: no symptoms reported Genitourinary: no symptoms reported Musculoskeletal: no symptoms reported Skin: no symptoms reported Psychiatric/Neurological: Depressed, Numbness, Paresthesia All Other Systems Reviewed Negative Unless Noted: Yes Physical Exam Physical Exam Vital Signs Vital Signs - First Documented 02/15/19 13:57 Temp 101.9 Pulse 84 Resp 15 B/P (MAP) 101/70 (80) Pulse Ox 96 O2 Delivery Room Air Capillary Refill : Less Than 3 SecondsLess Than 3 Seconds Height, Weight, BMI Height: 5'3.00" Weight: 147lbs. 4.0oz. 66.952065ek; 26.1 BMI Method:Stated General Appearance: No Apparent Distress, WD/WN, Chronically ill, Thin Eyes: Right Eye Normal Inspection, Right Eye PERRL HEENT: PERRL/EOMI, Normal ENT Inspection, Pharynx Normal, Moist Mucous Membranes Neck: Full Range of Motion, Normal Inspection, Non Tender Respiratory: Chest Non Tender, Lungs Clear, Normal Breath Sounds, No Accessory Muscle Use, No Respiratory Distress Cardiovascular: Regular Rate, Rhythm, No Edema, No Gallop, No JVD, No Murmur, Normal Peripheral Pulses Gastrointestinal: Normal Bowel Sounds, No Organomegaly, No Pulsatile Mass, Non Tender, Soft Back: Normal Inspection, No CVA Tenderness, No Vertebral Tenderness Extremity: Normal Capillary Refill, Normal Inspection, Normal Range of Motion, Non Tender, No Calf Tenderness, No Pedal Edema Neurologic/Psychiatric: Alert, Oriented x3, Normal Mood/Affect, Motor Weakness Skin: Normal Color, Warm/Dry Lymphatic: No Adenopathy Results Results/Procedures Labs Laboratory Tests 02/15/19 13:55 02/16/19 05:20 Patient resulted labs reviewed. Assessment/Plan Admission Diagnosis Assessment: Sepsis UTI Decubitus ulcer Neurogenic bladder Zamarripa cath in place DM Plan: IVF IV abx Dr García consultation is appreciated Admission Status: Inpatient Order (span 2 midnights) Reason for Inpatient Admission: Quad with fever Diagnosis/Problems Diagnosis/Problems (1) Sepsis Status: Acute (2) Spinal cord injury at C1-C4 level Status: Chronic (3) Neurogenic bladder Status: Chronic (4) Incontinence of feces Status: Chronic Qualifiers: Fecal incontinence type: unspecified Qualified Codes: R15.9 - Full incontinence of feces (5) Anxiety Status: Chronic (6) Anemia Status: Chronic Qualifiers: Anemia type: unspecified type Qualified Codes: D64.9 - Anemia, unspecified (7) COPD (chronic obstructive pulmonary disease) Status: Chronic Clinical Quality Measures DVT/VTE Risk/Contraindication: Risk Factor Score Per Nursin RFS Level Per Nursing on Admit: 4+=Very High MARGUERITE GAN DO Feb 16, 2019 10:55
[2019-02-16 11:37] VITALS: BP 137/84
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
--- NOTE | 2019-02-16 13:30 | NUR ---
Advised Broadus that I had ordered an air mattress for pt.
--- NOTE | 2019-02-16 13:45 | NUR ---
Wound vac applied by wound care nurse Freddy BONILLA to coccyx/sacrum region
[2019-02-16] MEDS ORDERED: ENOXAPARIN 40 MG/0.4 ML (LOVENOX) SYR SC SCH (14:00)
[2019-02-16] MEDS ORDERED: ENOXAPARIN SODIUM 40 MG SC SCH (14:00)
--- NOTE | 2019-02-16 14:10 | NUR ---
Was going to give patient his Lovenox and his said "I already gave him that." Informed her that she was not to give patient any medications from home.
[2019-02-16] MEDS ORDERED: ALPR0.254 PO (14:14)
[2019-02-16] MEDS ORDERED: HYDR-3812 PO (14:14)
[2019-02-16] MEDS ORDERED: ENOX40DI13 SQ (14:41)
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
[2019-02-16 16:00] VITALS: BP 150/81
--- NOTE | 2019-02-16 18:03 | NUR ---
Pt became very irate all of the sudden, unable to contact his and wants to sign out AMA. Dr. Cordero notified and said if he wanted to leave AMA then he could. Orders to leave goodman in place and to remove the wound vac if he leaves. Attempted to call again and no answer.
--- NOTE | 2019-02-16 18:25 | NUR ---
Pt talked with about going home, she is trying to find some people to help lift him out of the truck.
[2019-02-16 20:00] VITALS: BP 106/69
[2019-02-16] MEDS: ALPRAZolam 0.5 MG (XANAX) TAB PO PRN (20:54)
[2019-02-16] MEDS: ACETAMINOPHEN 325 MG TABLET PO PRN (20:56)
[2019-02-16] MEDS ORDERED: NON-FORMULARY MEDICATION 1 EA EA (Quetiapine Fumarate 50 MG) PO SCH (21:00)
[2019-02-16] MEDS ORDERED: MONTELUKAST 10 MG (SINGULAIR) TAB PO SCH (21:00)
[2019-02-16] MEDS ORDERED: MELATONIN 9 MG PO SCH (21:00)
[2019-02-16] MEDS ORDERED: MELATONIN 3 MG TABLET PO SCH (21:00)
[2019-02-16] MEDS ORDERED: QUEtiapine 25 MG (SEROquel) TAB IMMEDIATE RELEASE PO SCH (21:00)
[2019-02-17] VITALS: BP 105/64
[2019-02-17 04:00] VITALS: BP 118/72
[2019-02-17] MEDS: KCL 10 MEQ TAB (MICRO K) PO SCH (06:20)
[2019-02-17] MEDS: PIPERACILLIN/TAZO 4.5 GM/NS 100 ML IV SCH ×2 (06:20)
[2019-02-17] MEDS: inSUlin ASPART (NovoLOG) 1 UNIT/0.01 ML (CHARGE PER UNIT) SC SCH ×2 (06:21→11:23)
[2019-02-17 06:36] LABS: BASOPHILS % (AUTO) 0 % (0-10); EOSINOPHILS # (AUTO) 0.1 10^3/uL (0.0-0.3); EOSINOPHILS % (AUTO) 1 % (0-10); HEMATOCRIT 29 % (40-54); HEMOGLOBIN 9.4 G/DL (13.3-17.7); LYMPHOCYTES # (AUTO) 2.5 X 10^3 (1.0-4.0); LYMPHOCYTES % (AUTO) 30 % (12-44); MEAN CORPUSCULAR HGB CONC 32 G/DL (32-36); MEAN CORPUSCULAR VOLUME 88 FL (80-99); MEAN PLATELET VOLUME 7.7 FL (7.4-10.4); MONOCYTES % (AUTO) 12 % (0-12); NEUTROPHILS # (AUTO) 4.8 X 10^3 (1.8-7.8); NEUTROPHILS % (AUTO) 57 % (42-75); PLATELET COUNT 371 10^3/uL (130-400); RED CELL DISTRIBUTION WIDTH 13.9 % (10.0-14.5); WHITE BLOOD COUNT 8.4 10^3/uL (4.3-11.0)
[2019-02-17 06:38] LABS: MEAN CORPUSCULAR HEMOGLOBIN 28 PG (25-34)
[2019-02-17 06:56] LABS: ALANINE AMINOTRANSFERASE 12 U/L (0-55); ALBUMIN 2.7 GM/DL (3.2-4.5); ALKALINE PHOSPHATASE 97 U/L (40-136); BILIRUBIN,TOTAL 0.2 MG/DL (0.1-1.0); BUN/CREATININE RATIO 7; CALCIUM 8.5 MG/DL (8.5-10.1); CARBON DIOXIDE 23 MMOL/L (21-32); CHLORIDE 107 MMOL/L (98-107); CREATININE SERUM 0.61 MG/DL (0.60-1.30); GFR ESTIMATED > 60; GLUCOSE 93 MG/DL (70-105); POTASSIUM 3.8 MMOL/L (3.6-5.0); SODIUM 139 MMOL/L (135-145); TOTAL PROTEIN 6.5 GM/DL (6.4-8.2)
--- NOTE | 2019-02-17 07:01 | NUR ---
PT IS UPSET THAT HE DOES NOT HAVE HYDROCODONE AND XANAX ORDERED WITH HIS OTHER SCHEDULED MORNING PILLS AND IS REQUESTING TO LEAVE AMA AND WILLING TO SIGN PAPERWORK. PT IS A QUADRIPLEGIC WITH NO FAMILY ON SITE TO CARE FOR HIM OR TAKE HIM HOME. THIS RN ATTEMPTED TO CONTACT PT'S PER PT'S REQUEST. PT'S DID NOT ANSWER THE PHONE.
--- NOTE | 2019-02-17 07:31 | Pulmonary Progress Note ---
Subjective Time Seen by a Provider: 07:31 Subjective/Events-last exam PT wants to go home however still running fevers. Sepsis Event Evaluation Height, Weight, BMI Height: 5'3.00" Weight: 147lbs. 4.0oz. 66.632488qy; 26.1 BMI Method:Stated Focused Exam Lactate Level 02/15/19 13:55: Lactic Acid Level 1.52 Exam Exam Vital Signs Date Time Temp Pulse Resp B/P (MAP) Pulse Ox O2 Delivery O2 Flow Rate FiO2 02/17/19 04:00 99.8 69 20 118/72 (87) 96 Room Air 02/17/19 00:00 98.8 66 20 105/64 (78) 97 Room Air 02/16/19 21:26 99.2 02/16/19 20:56 100.2 02/16/19 20:00 99.5 78 18 106/69 (81) 97 Room Air 02/16/19 20:00 Room Air 02/16/19 16:00 99.1 80 18 150/81 (104) 98 Room Air 02/16/19 11:37 99.3 68 18 137/84 (101) 97 Room Air 02/16/19 09:09 95 Room Air 02/16/19 08:00 99 Room Air 02/16/19 08:00 97.6 71 18 144/83 (103) 97 I & O 02/17/19 07:00 Intake Total 21572 ml Output Total 4475 ml Balance 6025 ml Height & Weight Height: 5'3.00" Weight: 147lbs. 4.0oz. 66.617748ui; 26.1 BMI Method:Stated General Appearance: No Apparent Distress, WD/WN, Chronically ill, Thin HEENT: PERRL/EOMI, Normal ENT Inspection, Pharynx Normal, Moist Mucous Membranes Neck: Full Range of Motion, Normal Inspection, Non Tender Respiratory: Chest Non Tender, Lungs Clear, Normal Breath Sounds, No Accessory Muscle Use, No Respiratory Distress Cardiovascular: Regular Rate, Rhythm, No Edema, No Gallop, No JVD, No Murmur, Normal Peripheral Pulses Capillary Refill: Less Than 3 Seconds Gastrointestinal: normal bowel sounds, soft, no organomegaly, distended (may be his normal body habitus), other (sacral decub with necrotic tissue at base on top of sacrum, some tissue on right may be necrotic, edges look ok) Extremity: Normal Capillary Refill, Normal Inspection, Normal Range of Motion, Non Tender, No Calf Tenderness, No Pedal Edema Neurologic/Psychiatric: Alert, Oriented x3, Normal Mood/Affect, Motor Weakness Skin: Normal Color, Warm/Dry Lymphatic: No Adenopathy Results Lab Laboratory Tests 02/15/19 13:55 02/16/19 05:20 02/17/19 06:16 Assessment/Plan Assessment/Plan Sepsis secondary to wound sepsis -Wound care -Continue abx -Lopez culture Marijuana use -UDS is positive -HX of illicit drug use Hx of COPD -Currently on room air Neurogenic bladder DM Spinal cord injury C1-C4 Anxiety ALONDRA HUSSEIN DO Feb 17, 2019 07:31
[2019-02-17 08:00] VITALS: BP 108/69
--- NOTE | 2019-02-17 08:00 | NUR ---
Pt states that he is refusing all medications, not going to eat because he was lied to about getting xanax and lortab scheduled. Wants to sign AMA and be taken in wheelchair and set on the curb. Explained to patient that we couldn't just sit him at the curb, he needed a ride and I have his AMA form all ready for him to sign as soon as he can find a ride.
[2019-02-17] MEDS: RT-ALBUTEROL/IPRATROPIUM 3 ML (DUONEB) VIAL INH SCH (08:05)
--- NOTE | 2019-02-17 08:06 | NUR ---
PATIENT REFUSED HIS BID BT (0800); HE STATED HE JUST WANTS TO GO HOME Addendum: 02/17/19 at 0808 by DORITA MEJIAS RT Amended: Links added.
--- NOTE | 2019-02-17 09:11 | NUR ---
Offered again to get patient a drink of water, order his breakfast and give him his morning medications and he refuses all.
[2019-02-17] MEDS: LORATADINE (CLARITIN) 10 MG TAB PO SCH (09:12)
[2019-02-17] MEDS: FAMOTIDINE 20 MG (PEPCID) TABLET PO SCH (09:12)
[2019-02-17] MEDS: MIDODRINE 10 MG (PROAMATINE) TAB PO SCH (09:14)
[2019-02-17] MEDS: MICONAZOLE 2% POWDER (DESENEX AF) 90 GM TOP SCH (09:14)
[2019-02-17] MEDS: SENNA W/DOCUSATE (SENOKOT S) TABLET PO SCH (09:14)
[2019-02-17] MEDS: POT PHOS/NA PHOS (K-PHOS NEUTRAL) PO SCH (09:14)
[2019-02-17] MEDS: DAKIN'S 1/4 STRENGTH (0.125%) 473 ML BTL TOP SCH (09:15)
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
--- NOTE | 2019-02-17 11:50 | NUR ---
Explained to patient the risks and benefits of leaving AMA, pt verbalizes his understanding of risks and benefits and signed AMA with an 'X', document witnessed by Joyce Zaragoza RN and Joyce Araiza RN. Wound vac removed, SL removed intact, redressed coccyx/sacral decub with Dakin's solution 4 x 4's and covered with ABD pad and secured with medipore tape. Pt transferred to wheelchair and taken to private vehicle. Dr. Cordero aware of situation.
--- NOTE | 2019-02-17 12:23 | Discharge Summary ---
Diagnosis/Chief Complaint Date of Admission Feb 15, 2019 at 16:05 Date of Discharge Admission Diagnosis Assessment: Sepsis UTI Decubitus ulcer Neurogenic bladder Zamarripa cath in place DM Plan: IVF IV abx Dr García consultation is appreciated [facility] Discharge Diagnosis (1) Sepsis Status: Acute (2) Spinal cord injury at C1-C4 level Status: Chronic (3) Neurogenic bladder Status: Chronic (4) Incontinence of feces Status: Chronic (5) Anxiety Status: Chronic (6) Anemia Status: Chronic (7) COPD (chronic obstructive pulmonary disease) Status: Chronic Discharge Summary Discharge Physical Exam Allergies: Coded Allergies: No Known Drug Allergies (Unverified , 02/15/19) Vitals & I&Os Vital Signs Date Time Temp Pulse Resp B/P (MAP) Pulse Ox O2 Delivery O2 Flow Rate FiO2 02/17/19 12:15 02/17/19 08:07 Room Air 02/17/19 08:00 98.0 64 24 92 General Appearance: Chronically ill Hospital Course Was the Problem List Reviewed?: Yes Hospital course: Patient had a brief hospital course he was admitted placed on empiric antibiotics in addition to IV fluids and continued on all home medications along with air mattress and heel protectors. Nebulizer treatments were ordered maintained on oxygen and stabilize quickly. Neurogenic bladder required indwelling catheter. Decubitus ulcer evaluated by Dr. García wound VAC was placed. Patient decided to leave AGAINST MEDICAL ADVICE and labs had returned back to normal and urine culture had no growth to date and sepsis had resolved but he was in need of further treatment for decubitus ulcer so he had to leave AGAINST MEDICAL ADVICE and wound VAC was discontinued and although he was counseled regarding the risk of leaving too soon without definitive treatment he left anyway. Labs (last 24 hrs) Laboratory Tests 02/17/19 06:13: Glucometer 97 02/17/19 06:16: White Blood Count 8.4, Red Blood Count 3.30L, Hemoglobin 9.4L, Hematocrit 29L, Mean Corpuscular Volume 88, Mean Corpuscular Hemoglobin 28, Mean Corpuscular Hemoglobin Concent 32, Red Cell Distribution Width 13.9, Platelet Count 371, Mean Platelet Volume 7.7, Neutrophils (%) (Auto) 57, Lymphocytes (%) (Auto) 30, Monocytes (%) (Auto) 12, Eosinophils (%) (Auto) 1, Basophils (%) (Auto) 0, Neutrophils # (Auto) 4.8, Lymphocytes # (Auto) 2.5, Monocytes # (Auto) 1.0, Eosinophils # (Auto) 0.1, Basophils # (Auto) 0.0, Sodium Level 139, Potassium Level 3.8, Chloride Level 107, Carbon Dioxide Level 23, Anion Gap 9, Blood Urea Nitrogen 4L, Creatinine 0.61, Estimat Glomerular Filtration Rate > 60, BUN/Creatinine Ratio 7, Glucose Level 93, Calcium Level 8.5, Corrected Calcium 9.5, Total Bilirubin 0.2, Aspartate Amino Transf (AST/SGOT) 14, Alanine Aminot ransferase (ALT/SGPT) 12, Alkaline Phosphatase 97, Total Protein 6.5, Albumin 2.7L 02/17/19 11:11: Glucometer 85 Microbiology 02/15/19 Blood Culture - Preliminary, Resulted No growth 02/15/19 Influenza Types A,B Antigen (CITLALY) - Final, Complete 02/15/19 Urine Culture - Final, Complete NO GROWTH 02/15/19 Gram Stain - Final, Resulted 02/15/19 Wound Culture - Preliminary, Resulted Mixed Bacterial Rin Corynebacterium striatum Patient resulted labs reviewed. Pending Labs Discussion & Recommendations Discharge Planning: <30 minutes discharge planning Discharge Home Medications: Active Scripts Active Levemir Flextouch (Insulin Detemir) 100 Unit/1 Ml Insuln.pen 15 Unit SQ BID Melatonin 3 Mg Tablet 9 Mg PO HS Lotrimin AF (Miconazole Nitrate) 90 Gm Powder 0 Gm TOP BID Famotidine 20 Mg Tablet 20 Mg PO BID Senna-Time S Tablet (Sennosides/Docusate Sodium) 1 Each Tablet 2 Ea PO BID Montelukast Sodium 10 Mg Tablet 10 Mg PO HS Klor-Con 10 (Potassium Chloride) 10 Meq Tablet.er 10 Meq PO DAILY@0700 Phospha 250 Neutral Tablet (Phosphate) 1 Ea Tablet 1 Ea PO BID Dakin's (Sodium Hypochlorite) 473 Ml Solution 0 Ml TOP DAILY Quetiapine Fumarate 25 Mg Tablet 50 Mg PO HS Citalopram HBr (Citalopram Hydrobromide) 10 Mg Tablet 10 Mg PO DAILY Tramadol HCl 50 Mg Tablet 50 Mg PO BID PRN Baclofen 10 Mg Tablet 5 Mg PO Q12HR PRN Midodrine HCl 10 Mg Tablet 10 Mg PO TID Iprat-Albut 0.5-3(2.5) mg/3 ml (Ipratropium/Albuterol Sulfate) 3 Ml Ampul.neb 3 Ml INH RTBID Loratadine 10 Mg Tablet 10 Mg PO DAILY Reported Lovenox (Enoxaparin Sodium) 40 Mg/0.4 Ml Syringe 40 Mg SQ 1400 12 SYRINGES FILLED 02-07-19 Alprazolam 0.25 Mg Tablet 0.25 Mg PO QID Hydrocodone-Acetamin 5-325 mg (Hydrocodone/Acetaminophen) 1 Each Tablet 1 Tab PO Q6H PRN Instructions to patient/family Please see electronic discharge instructions given to patient. Clinical Quality Measures DVT/VTE Risk/Contraindication: Risk Factor Score Per Nursin RFS Level Per Nursing on Admit: 4+=Very High Problem Qualifiers (1) Incontinence of feces: Fecal incontinence type: unspecified Qualified Codes: R15.9 - Full incontinence of feces (2) Anemia: Anemia type: unspecified type Qualified Codes: D64.9 - Anemia, unspecified MARGUERITE GAN DO Feb 17, 2019 12:23
--- NOTE | 2019-02-21 14:02 | Physician Query Clarification ---
PQ-Link Infection to Dev/Proc Admission/Discharge Admission Date: Feb 15, 2019 at 16:05 Discharge Date: Feb 17, 2019 at 12:15 The medical record reflects the following clinical scenario: History/Risk Factors: Quadriplegia, indwelling catheter, Stage 4 scaral decubitus ulcer, Neurogenic bladder, fecal incontinence Clinical Findings: fever 101.9, confusion, urine specifice gravity 1.005, urine leukocyte esterase 3+, urine WBC 25-50, urine bacteria few, WBC 12.1 Treatment: IV Piperacillin Question: Can you specify if the UTI is due to/associated with indwelling catheter? Please document a response in Progress Note or Discharge Summary. 1. Yes - UTI is due to/associated with indwelling catheter. 2. No - uti is not due to/associated with indwelling catheter. 3. Other, with explanation of the clinical findings. 4. Clinically undetermined, no explanation for the clinical findings. PHYSICIAN RESPONSE Specify if infection: Clinically undetermined Please remember a lack of response to the above will prompt a phone page by CDI/Coding staff. In responding to this query, please exercise your independent professional ailyn gment. The purpose of this communication is to more accurately reflect the complexity of your patients condition. The fact that a question is asked does not imply that any particular answer is desired or expected. Thank you for your timely response to this clarification. Requestors name: Loren THIS PHYSICIAN QUERY FORM IS A PERMANENT PART OF THE MEDICAL RECORD LOREN CUELLAR Feb 21, 2019 14:02 MARGUERITE GAN DO Feb 21, 2019 20:47
--- NOTE | 2019-02-21 14:08 | Physician Query Clarification ---
PQ-Further Specificity Admission/Discharge Admission Date: Feb 15, 2019 at 16:05 Discharge Date: Feb 17, 2019 at 12:15 The medical record reflects the following clinical scenario: History/Risk Factors: Quadriplegia, indwelling catheter, stage 4 sacral decubitus ulcer Clinical Findings: T 101.9, confusion Treatment: IV Pipercillin Question: Can you further specify if the sepsis is due to the UTI or the decubitus ulcer per the clinical indicators above? Please document a response in the Progress Notes or Discharge Summary. 1. Sepsis is due to the stage 4 sacral decubitus ulcer 2. Sepsis is due to the UTI 3. Sepsis is due to both stage 4 sacral decubitus ulcer and UTI 4. Other, with explanation of the clinical findings. 5. Clinically undetermined, no explanation for the clinical findings. PHYSICIAN RESPONSE Can you specify per above: 1 Please remember a lack of response to the above will prompt a phone page by CDI/Coding staff. In responding to this query, please exercise your independent professional judgment. The purpose of this communication is to more accurately reflect the complexity of your patients condition. The fact that a question is asked does not imply that any particular answer is desired or expected. Thank you for your timely response to this clarification. Requestors name: Carrie THIS PHYSICIAN QUERY FORM IS A PERMANENT PART OF THE MEDICAL RECORD CARRIE CUELLAR Feb 21, 2019 14:08 MARGUERITE GAN DO Feb 21, 2019 20:48
[2019-02-23] MEDS ORDERED: AMOX-358 PO (13:12)
== END 2019-02-17 12:15 | disposition left against medical advice (07) | DRG 871 ==
LOC: EDUNIT# 13:51 → ER 13:52 → 4TH 16:05
PROVIDERS: ADMIT Surgery; ATTEND Surgery
DX: A41.9 Sepsis, unspecified organism (principal); L89.154 Pressure ulcer of sacral region, stage 4; G82.50 Quadriplegia, unspecified; N39.0 Urinary tract infection, site not specified; M54.9 Dorsalgia, unspecified; J44.9 Chronic obstructive pulmonary disease, unspecified; K21.9 Gastro-esophageal reflux disease without esophagitis; G47.9 Sleep disorder, unspecified; F41.9 Anxiety disorder, unspecified; E11.9 Type 2 diabetes mellitus without complications; N31.9 Neuromuscular dysfunction of bladder, unspecified; R15.9 Full incontinence of feces; D64.9 Anemia, unspecified; F12.90 Cannabis use, unspecified, uncomplicated; Z79.4 Long term (current) use of insulin; Z87.891 Personal history of nicotine dependence; Z87.820 Personal history of traumatic brain injury; S14.101S Unspecified injury at C1 level of cervical spinal cord, sequela; W11.XXXS Fall on and from ladder, sequela
CPT/HCPCS: 36415; 71045; 80053; 80306; 81000; 82962; 83605; 85025; 85610; 85730; 87040; 87070; 87077; 87088; 87205; 87804; 94640; 94760; 96361; 96365

== ENCOUNTER 2019-02-21 09:43 | Observation (INO) | payer MEDICAID ==
[~2019-02-21] VITALS: Ht 160 cm; Wt 68.0 kg
[2019-02-21] VITALS (11 sets, daily range): BP systolic 77–130; BP diastolic 48–70
[~2019-02-21 09:43] MED LIST changes: +ALPR0.254 PO; +HYDR-3812 PO
[2019-02-21] MEDS ORDERED: NS IV 1000 ML 1,000 ML IV SCH ×2 (09:54→11:26)
[2019-02-21] MEDS ORDERED: ACETAMINOPHEN 500 MG TAB (TYLENOL) PO PRN ×2 (10:00→13:30)
[2019-02-21 10:29] LABS: BASOPHILS % (AUTO) 0 % (0-10); EOSINOPHILS % (AUTO) 0 % (0-10); HEMATOCRIT 32 % (40-54); HEMOGLOBIN 10.6 G/DL (13.3-17.7); LYMPHOCYTES # (AUTO) 4.2 X 10^3 (1.0-4.0); LYMPHOCYTES % (AUTO) 33 % (12-44); MEAN CORPUSCULAR HEMOGLOBIN 28 PG (25-34); MEAN CORPUSCULAR HGB CONC 34 G/DL (32-36); MEAN CORPUSCULAR VOLUME 84 FL (80-99); MEAN PLATELET VOLUME 7.9 FL (7.4-10.4); MONOCYTES # (AUTO) 1.1 X 10^3 (0.0-1.0); MONOCYTES % (AUTO) 9 % (0-12); NEUTROPHILS # (AUTO) 7.3 X 10^3 (1.8-7.8); NEUTROPHILS % (AUTO) 58 % (42-75); PLATELET COUNT 372 10^3/uL (130-400); RED CELL DISTRIBUTION WIDTH 14.3 % (10.0-14.5); WHITE BLOOD COUNT 12.6 10^3/uL (4.3-11.0)
[2019-02-21 10:46] LABS: INR 1.1 (0.8-1.4); PROTHROMBIN TIME PATIENT 14.3 SEC (12.2-14.7)
[2019-02-21 10:51] LABS: ALANINE AMINOTRANSFERASE 17 U/L (0-55); ALBUMIN 3.2 GM/DL (3.2-4.5); ALKALINE PHOSPHATASE 90 U/L (40-136); BILIRUBIN,TOTAL 0.3 MG/DL (0.1-1.0); BUN/CREATININE RATIO 8; CALCIUM 8.4 MG/DL (8.5-10.1); CARBON DIOXIDE 25 MMOL/L (21-32); CHLORIDE 96 MMOL/L (98-107); CREATININE SERUM 0.63 MG/DL (0.60-1.30); GFR ESTIMATED > 60; GLUCOSE 133 MG/DL (70-105); POTASSIUM 4.1 MMOL/L (3.6-5.0); SODIUM 127 MMOL/L (135-145); TOTAL PROTEIN 7.4 GM/DL (6.4-8.2)
[2019-02-21 11:08] LABS: BILIRUBIN,URINE NEGATIVE (NEGATIVE); CLARITY,URINE CLEAR; COLOR,URINE YELLOW; GLUCOSE, URINE (UA) NEGATIVE (NEGATIVE); KETONES,URINE NEGATIVE (NEGATIVE); LEUKOCYTE ESTERASE ,URINE NEGATIVE (NEGATIVE); NITRITE,URINE NEGATIVE (NEGATIVE); PH,URINE 8 (5-9); PROTEIN,URINE NEGATIVE (NEGATIVE); UROBILINOGEN,URINE NORMAL (NORMAL)
[2019-02-21] MEDS ORDERED: PIPERACILLIN SODIUM/TAZOBACTAM 4.5 GM in NS (IVPB) 100 ML IV ONE (11:15)
--- NOTE | 2019-02-21 11:16 | Diagnostic Imaging Report ---
INDICATION: Fatigue and fever Portable upright AP view of the chest is obtained with comparison made to the study of 02/15/2019. Heart size and pulmonary vascularity remain within normal limits. There is no evidence of pneumothorax or consolidation. Internal fixation device on right ribs are again noted. Overall, there has been no adverse change. IMPRESSION: Stable chest without acute abnormality detected. Dictated by: Dictated on workstation # [id number]
[2019-02-21 11:17] LABS: BACTERIA,URINE TRACE /HPF; RBC,URINE RARE /HPF
--- NOTE | 2019-02-21 11:51 | ED General ---
General Stated Complaint: FEVER Source of Information: Patient, EMS, Old Records Exam Limitations: No Limitations History of Present Illness Date Seen by Provider: Feb 21, 2019 Time Seen by Provider: 09:44 Initial Comments This 53-year-old gentleman presents to the emergency room via EMS with fever. 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 He was admitted within the past month with sepsis. He returned home and has now developed fever again. He is rather somnolent but states he took several melatonin tablets last night to help him rest. He comes from home where his is his primary caregiver. He is febrile upon presentation. She is also known to have a sacral decubitus ulcer. Allergies and Home Medications Allergies Coded Allergies: No Known Drug Allergies (Unverified , 02/15/19) Home Medications Alprazolam 0.25 Mg Tablet, 1 MG PO BID, (Reported) TAKES 4 (0.25MG) TABLETS (UNTIL GONE THEN WILL GET NEW SCRIPT FOR 1MG TABS TWICE DAILY) Baclofen 10 Mg Tablet, 5 MG PO TID, (Reported) Citalopram Hydrobromide 10 Mg Tablet, 10 MG PO DAILY Prescribed by: MARGUERITE GAN on 02/05/192036 Enoxaparin Sodium 40 Mg/0.4 Ml Syringe, 40 MG SC 1400, (Reported) FILLED #12 02-07-19 AND THEN THE REST ON 02-20-19 FOR #18 SYRINGES Famotidine 20 Mg Tablet, 20 MG PO BID Prescribed by: MARGUERITE GAN on 02/05/192036 Hydrocodone/Acetaminophen 1 Each Tablet, 1 TAB PO Q6H PRN for PAIN-MODERATE, (Reported) Insulin Detemir 100 Unit/1 Ml Insuln.pen, 15 UNIT SQ BID Prescribed by: MARGUERITE GAN on 02/05/192036 Ipratropium/Albuterol Sulfate 3 Ml Ampul.neb, 3 ML INH RTBID Prescribed by: MARGUERITE GAN on 02/05/192036 Loratadine 10 Mg Tablet, 10 MG PO DAILY Prescribed by: MARGUERITE GAN on 02/05/192036 Melatonin 5 Mg Tablet, 10 MG PO HS, (Reported) Miconazole Nitrate 90 Gm Powder, 0 GM TOP BID Prescribed by: MARGUERITE GAN on 02/05/192036 Midodrine HCl 10 Mg Tablet, 10 MG PO TID Prescribed by: MARGUERITE GAN on 02/05/192036 Montelukast Sodium 10 Mg Tablet, 10 MG PO HS Prescribed by: MARGUERITE GAN on 02/05/192036 Potassium Chloride 10 Meq Tablet.er, 10 MEQ PO DAILY@0700 Prescribed by: MARGUERITE GAN on 02/05/192036 Quetiapine Fumarate 50 Mg Tablet, 50 MG PO HS, (Reported) Sennosides 8.6 Mg Tablet, 8.6 MG PO BID PRN for CONSTIPATION-5TH LINE, (Reported) Sodium Hypochlorite 473 Ml Solution, 0 ML TOP DAILY Prescribed by: MARGUERITE GAN on 02/05/192036 Tramadol HCl 50 Mg Tablet, 50 MG PO BID PRN for PAIN-MODERATE Prescribed by: MARGUERITE GAN on 02/05/192036 Patient Home Medication List Home Medication List Reviewed: Yes Review of Systems Review of Systems Constitutional: see HPI EENTM: no symptoms reported Respiratory: no symptoms reported Cardiovascular: no symptoms reported Gastrointestinal: no symptoms reported Genitourinary: no symptoms reported Musculoskeletal: no symptoms reported Skin: see HPI Psychiatric/Neurological: See HPI Hematologic/Lymphatic: No Symptoms Reported Immunological/Allergic: no symptoms reported Past Ducxzha-Znkoou-Ctmgwr Hx Past Med/Social Hx: Reviewed and Corrections made Patient Social History Alcohol Beverage of Choice: Wine Type Used: Cigarettes Recent Hopitalizations: Yes (SPINAL CORD INJURY AND AT [place] 7-19) Immunizations Up To Date Tetanus Booster (TDap): Unknown PED Vaccines UTD: Yes Date of Pneumonia Vaccine: Sep 04, 2015 Date of Influenza Vaccine: Apr 05, 2017 Seasonal Allergies Seasonal Allergies: Yes (TALL GRASS, ANIMALS) Past Medical History Surgeries: Yes (hernia repair x 2,2 teeth removed,bladder and kidney problems in childhood) Abdominal, Orthopedic Respiratory: Yes (OCCASIONALLY USES INHALER DUE TO OUTSIDE ALLERGENS) COPD Currently Using CPAP: No Currently Using BIPAP: No Cardiac: No Neurological: Yes Neuropathy, 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 With some movement of the upper extremities and minimal movement of the lower extremities), Traumatic Brain Injury Reproductive Disorders: No Sexually Transmitted Disease: No Genitourinary: Yes (URINARY FREQUENCY) Bladder Infection Gastrointestinal: Yes Gastroesophageal Reflux, Polyps Musculoskeletal: Yes (LEFT FOOT FX/ORIF; CHRONIC FOOT PAIN--NEUROPATHY) Chronic Back Pain, Fractures Endocrine: Yes Diabetes, Insulin dep HEENT: Yes Cataract Cancer: No Psychosocial: Yes Sleep Difficulties, Anxiety Integumentary: Yes (sacral decubitus ulcer) Blood Disorders: No Adverse Reaction/Blood Tranf: No Family Medical History Abdominal aortic aneurysm 03 MOTHER (DOESN'T KNOW MOM'S MEDICAL HISTORY) Cancer 03 FATHER (TESTICULAR) Family history: Diabetes mellitus 03 FATHER Family history: Hypertension 03 FATHER No Family History of: Family history: Alzheimer's disease Family history: Arthritis Family history: Breast disease Family history: Cardiovascular disease Family history: Gastrointestinal disease Family history: Thyroid disorder Hereditary disease History of - respiratory disease Myocardial infarction Parkinson's disease Seizure disorder Stroke AAA, Diabetes, Hypertension Physical Exam-Suspected Sepsis Physical Exam Vital Signs Vital Signs - First Documented 02/21/19 02/21/19 09:44 12:15 Temp 102.7 Pulse 78 Resp 18 B/P (MAP) 134/81 (98) Pulse Ox 93 O2 Delivery Room Air O2 Flow Rate 2.00 Capillary Refill : Height, Weight, BMI Height: 5'3.00" Weight: 147lbs. 4.0oz. 66.037392vq; 26.1 BMI Method:Stated General Appearance: No Apparent Distress, WD/WN, Other (somnolent, lethargic but alert and oriented) HEENT: PERRL/EOMI, Normal ENT Inspection, Other (oropharynx dry) Neck: Normal Inspection Respiratory: Lungs Clear, Normal Breath Sounds, No Accessory Muscle Use, No Respiratory Distress Cardiovascular: Regular Rate, Rhythm, No Edema, No Murmur, Normal Peripheral Pulses Gastrointestinal: Non Tender, Soft Extremity: Normal Inspection, No Pedal Edema Neurologic/Psychiatric: Alert, Oriented x3, Normal Mood/Affect, supervisor tank house II-XII Norm as Tested, Other (somnolent but alert and oriented partial quadriplegia with some movement of the upper extremities and minimal movement of the lower extremities) Skin: normal color, warm/dry, other (capillary refill less than 5 seconds. Decubitus ulcer on the sacrum is dressed. There is sticky thick drainage adhering to the dressing. No significant erythema noted.) Focused Exam Lactate Level 02/21/19 10:15: Lactic Acid Level 1.71 Lactic Acid Level Procedures/Interventions Date of ETT Placement: Dec 07, 2018 Progress/Results/Core Measures Suspected Sepsis SIRS Temperature: Pulse: Respiratory Rate: Laboratory Tests 02/21/19 10:15: White Blood Count 12.6H Blood Pressure / Mean: 02/21/19 10:15: Lactic Acid Level 1.71 Laboratory Tests 02/21/19 10:15: Creatinine 0.63, INR Comment 1.1, Platelet Count 372, Total Bilirubin 0.3 Results/Orders Lab Results Laboratory Tests Test 02/21/19 10:15 02/21/19 10:25 Range/Units White Blood Count 12.6 H 4.3-11.0 10^3/uL Red Blood Count 3.74 L 4.35-5.85 10^6/uL Hemoglobin 10.6 L 13.3-17.7 G/DL Hematocrit 32 L 40-54 % Mean Corpuscular Volume 84 80-99 FL Mean Corpuscular Hemoglobin 28 25-34 PG Mean Corpuscular Hemoglobin Concent 34 32-36 G/DL Red Cell Distribution Width 14.3 10.0-14.5 % Platelet Count 372 130-400 10^3/uL Mean Platelet Volume 7.9 7.4-10.4 FL Neutrophils (%) (Auto) 58 42-75 % Lymphocytes (%) (Auto) 33 12-44 % Monocytes (%) (Auto) 9 0-12 % Eosinophils (%) (Auto) 0 0-10 % Basophils (%) (Auto) 0 0-10 % Neutrophils # (Auto) 7.3 1.8-7.8 X 10^3 Lymphocytes # (Auto) 4.2 H 1.0-4.0 X 10^3 Monocytes # (Auto) 1.1 H 0.0-1.0 X 10^3 Eosinophils # (Auto) 0.0 0.0-0.3 10^3/uL Basophils # (Auto) 0.0 0.0-0.1 10^3/uL Prothrombin Time 14.3 12.2-14.7 SEC INR Comment 1.1 0.8-1.4 Activated Partial Thromboplast Time 27 24-35 SEC Sodium Level 127 L 135-145 MMOL/L Potassium Level 4.1 3.6-5.0 MMOL/L Chloride Level 96 L 98-107 MMOL/L Carbon Dioxide Level 25 21-32 MMOL/L Anion Gap 6 5-14 MMOL/L Blood Urea Nitrogen 5 L 7-18 MG/DL Creatinine 0.63 0.60-1.30 MG/DL Estimat Glomerular Filtration Rate > 60 BUN/Creatinine Ratio 8 Glucose Level 133 H 70-105 MG/DL Lactic Acid Level 1.71 0.50-2.00 MMOL/L Calcium Level 8.4 L 8.5-10.1 MG/DL Corrected Calcium 9.0 8.5-10.1 MG/DL Total Bilirubin 0.3 0.1-1.0 MG/DL Aspartate Amino Transf (AST/SGOT) 23 5-34 U/L Alanine Aminotransferase (ALT/SGPT) 17 0-55 U/L Alkaline Phosphatase 90 40-136 U/L Total Protein 7.4 6.4-8.2 GM/DL Albumin 3.2 3.2-4.5 GM/DL Urine Color YELLOW Urine Clarity CLEAR Urine pH 8 5-9 Urine Specific [place] 1.015 L 1.016-1.022 Urine Protein NEGATIVE NEGATIVE Urine Glucose (UA) NEGATIVE NEGATIVE Urine Ketones NEGATIVE NEGATIVE Urine Nitrite NEGATIVE NEGATIVE Urine Bilirubin NEGATIVE NEGATIVE Urine Urobilinogen NORMAL NORMAL MG/DL Urine Leukocyte Esterase NEGATIVE NEGATIVE Urine RBC (Auto) NEGATIVE NEGATIVE Urine RBC RARE /HPF Urine WBC NONE /HPF Urine Crystals NONE /LPF Urine Bacteria TRACE /HPF Urine Casts NONE /LPF Urine Mucus NEGATIVE /LPF Urine Culture Indicated NO Urine Opiates Screen POSITIVE H NEGATIVE Urine Oxycodone Screen NEGATIVE NEGATIVE Urine Methadone Screen NEGATIVE NEGATIVE Urine Propoxyphene Screen NEGATIVE NEGATIVE Urine Barbiturates Screen NEGATIVE NEGATIVE Ur Tricyclic Antidepressants Screen NEGATIVE NEGATIVE Urine Phencyclidine Screen NEGATIVE NEGATIVE Urine Amphetamines Screen NEGATIVE NEGATIVE Urine Methamphetamines Screen NEGATIVE NEGATIVE Urine Benzodiazepines Screen POSITIVE H NEGATIVE Urine Cocaine Screen NEGATIVE NEGATIVE Urine Cannabinoids Screen NEGATIVE NEGATIVE Micro Results Microbiology 02/21/19 Influenza Types A,B Antigen (CITLALY) - Final, Complete My Orders Orders - GEOVANNA BINGHAM MD Cbc With Automated Diff (02/21/19 09:54) Comprehensive Metabolic Panel (02/21/19 09:54) Blood Culture (02/21/19 09:54) Sputum Culture (02/21/19 09:54) Urinalysis (02/21/19 09:54) Urine Culture (02/21/19 09:54) Protime With Inr (02/21/19 09:54) Partial Thromboplastin Time (02/21/19 09:54) Chest 1 View, Ap/Pa Only (02/21/19 09:54) Acetaminophen Tablet (Tylenol Tablet) (02/21/19 10:00) Ed Iv/Invasive Line Start (02/21/19 09:54) Ed Iv/Invasive Line Start (02/21/19 09:54) Vital Signs Adult Sepsis Patie Q15M (02/21/19 09:54) O2 (02/21/19 09:54) Remove Rings In Anticipation O (02/21/19 09:54) Lactic Acid Analyzer (02/21/19 09:54) Influenza A And B Antigens (02/21/19 09:54) Ns Iv 1000 Ml (Sodium Chloride 0.9%) (02/21/19 09:54) Piperacillin Sodium/Tazobactam (Zosyn Vi (02/21/19 11:15) Ed Iv/Invasive Line Start (02/21/19 11:26) Ns Iv 1000 Ml (Sodium Chloride 0.9%) (02/21/19 11:26) Medications Given in ED Current Medications Medications Dose Ordered Sig/Leandra Route Start Time Stop Time Status Last Admin Dose Admin Acetaminophen 1,000 mg ONCE PRN PO 02/21/19 10:00 02/21/19 11:41 DC 02/21/19 11:40 1,000 MG Piperacillin Sod/ Tazobactam Sod 4.5 gm/Sodium Chloride 100 ml @ 200 mls/hr ONCE ONCE IV 02/21/19 11:15 02/21/19 11:44 DC 02/21/19 11:39 200 MLS/HR Vital Signs/I&O 02/21/19 02/21/19 02/21/19 02/21/19 09:44 12:15 12:30 12:41 Temp 102.7 99.1 Pulse 78 73 Resp 18 18 B/P (MAP) 134/81 (98) 126/79 (95) Pulse Ox 93 97 97 O2 Delivery Room Air Nasal Cannula Nasal Cannula Nasal Cannula O2 Flow Rate 2.00 2.00 2.00 02/21/19 02/21/19 02/21/19 02/21/19 12:56 12:59 13:00 14:00 Temp 98.1 Pulse 74 71 56 Resp 20 18 B/P (MAP) 130/70 (90) 97/64 (75) Pulse Ox 97 96 O2 Delivery Nasal Cannula Nasal Cannula O2 Flow Rate 2.00 2.00 02/21/19 02/21/19 02/21/19 02/21/19 15:00 16:00 16:05 16:21 Temp 96.5 Pulse 57 55 Resp 20 20 B/P (MAP) 92/60 (71) 89/59 (69) Pulse Ox 96 96 O2 Delivery Nasal Cannula Nasal Cannula Nasal Cannula O2 Flow Rate 2.00 2.00 2.00 02/21/19 02/21/19 17:00 18:00 Pulse 54 60 Resp 58 21 B/P (MAP) 90/63 (72) 77/51 (60) Pulse Ox 96 97 O2 Delivery Nasal Cannula Nasal Cannula O2 Flow Rate 2.00 2.00 Capillary Refill : Progress Note : Time: 11:52 Progress Note Septic workup was pursued. No definite source of infection was identified. Sacral decubitus ulcer could be a source. Empiric antibody therapy with Zosyn and vancomycin was initiated in the ER, started with Zosyn. Patient was noted to have some hypotensive measurements prior to the start of IV fluids. This promptly resolved with adjustment of the cuff and administration of IV fluids. Diagnostic Imaging Diagonstic Imaging: Xray Plain Films/CT/US/NM/MRI: chest Comments Chest x-ray viewed by me and report reviewed. See report below: NAME: VIRGINIA LOO [facility] REC#: [id number] PT STATUS: REG ER : 1965 PHYSICIAN: GEOVANNA BINGHAM MD ADMIT DATE: 02/21/19/ER Draft Date of Exam:02/21/19 CHEST 1 VIEW, AP/PA ONLY INDICATION: Fatigue and fever Portable upright AP view of the chest is obtained with comparison made to the study of 02/15/2019. Heart size and pulmonary vascularity remain within normal limits. There is no evidence of pneumothorax or consolidation. Internal fixation device on right ribs are again noted. Overall, there has been no adverse change. IMPRESSION: Stable chest without acute abnormality detected. Dictated on workstation # [id number] Dict: 02/21/19 1111 Trans: 02/21/19 1115 RANCHO [id number] Interpreted by: SUNDAY OTERO MD Departure Communication (Admissions) Time/Spoke to Admitting Phy: 11:30 Dr. Zambrano 11:40 Dr. Craven 11:36 Dr. Arcos Impression Primary Impression: Sepsis Qualified Codes: A41.9 - Sepsis, unspecified organism Additional Impressions: Decubitus ulcer of sacral area Qualified Codes: L89.159 - Pressure ulcer of sacral region, unspecified stage Paraplegia Hyponatremia Disposition: ADMITTED INPATIENT Condition: Improved Admissions Decision to Admit Reason: Admit from ER (General) Decision to Admit/Date: Feb 21, 2019 Time/Decision to Admit Time: 09:50 Departure-Patient Inst. Referrals: [facility] (PCP/Family) Primary Care Physician GEOVANNA BINGHAM MD Feb 21, 2019 11:51
--- NOTE | 2019-02-21 12:32 | NUR ---
approx 1300 ml emptied from goodman bag at this time.
--- NOTE | 2019-02-21 12:41 | NUR ---
VIRGINIA LOO admitted to room CU1-1, with an admitting diagnosis of SEPSIS, DECUB ULCER OF SACRUM, PARTIAL QUAD, on 02/21/19 from ER via CART, accompanied by STAFF.VIRGINIA LOO introduced to surroundings, call light, bed controls, phone, TV, temperature control, lights, meal times, smoking policy, visitor policy, side rail policy, bathrooms and showers. Patient Rights given to patient in the handbook. VIRGINIA LOO verbalizes understanding that [facility] is not responsible for the loss or damage to any personal effects or valuables that are kept in the patients posession during their hospitalization. The following Patient Care Plans were discussed with the PT: Discharge Planning, KNOWLEDGE DEFICIT,HYPERTHERMIA, and RISK FOR INFECTION. VIRGINIA LOO verbalizes understanding of Interdisciplinary Patient Education. Patient and family were informed about the Rapid Response Team and its purpose.
--- NOTE | 2019-02-21 13:24 | History & Physical ---
ROMAIN EDWARDS,MED STUDENT 02/21/19 1324: HPI History of Present Illness: 53 year old male presents with complaint of fever. He has a history of a fall from 35 feet on 12/07/18 that resulted in partial quadriplegia he was also recently admitted to the hospital for sepsis. He was fever free until today when he developed a fever of 102 at home, it was noted by his who is his primary caregiver. He has some limited movement of his upper limbs at the shoulders but cannot move fingers or bend at his elbow. He also has very limited use of his lower extremities. He currently has a goodman catheter and states he is unable to control his bladder or bowel movements. He denies any N/V, diarrhea, constipation, chest pain, or rash. He does note a sacral decubitus ulcer that he has had since he was seen in [place] for his spine injury. He states it has cont inued to get bigger and is now the size of a baseball according to his . He is very somnolent upon history and exam. He does state he took melatonin last night but it does not usually make him this tired. He fatigue has increased over the past 1-2 days. Source: patient Exam Limitations: other (patient very somnolent ) Date seen by provider: Feb 21, 2019 Time Seen by Provider: 12:15 Attending Physician Pranay Zambrano MD [facility] Consult Date of Admission Feb 21, 2019 at 12:05 Home Medications Home Medications Reviewed patient Home Medication Reconciliation performed by pharmacy medication reconciliations dispensary technician and/or nursing. Patients Allergies have been reviewed. Allergies Coded Allergies: No Known Drug Allergies (Unverified , 02/15/19) ECP-Otxliw-Jjmina Hx Patient Social History Type Used: Cigarettes Recent Hopitalizations: Yes (SPINAL CORD INJURY AND AT [place] 7-19 RECENT HOSPITALIZATION FOR SEPSIS) Immunizations Up To Date Tetanus Booster (TDap): Unknown Date of Pneumonia Vaccine: Sep 04, 2015 Date of Influenza Vaccine: Apr 05, 2017 Past Medical History PMHx: DMII Chronic pain Anxiety HLD GERD Spinal Cord Injury PSurgHx: Left foot/ankle surgery Bladder surgery Hernia repair Family Medical History Significant Family History: AAA, Diabetes, Hypertension Family History: Abdominal aortic aneurysm 03 MOTHER (DOESN'T KNOW MOM'S MEDICAL HISTORY) Cancer 03 FATHER (TESTICULAR) Family history: Diabetes mellitus 03 FATHER Family history: Hypertension 03 FATHER No Family History of: Family history: Alzheimer's disease Family history: Arthritis Family history: Breast disease Family history: Cardiovascular disease Family history: Gastrointestinal disease Family history: Thyroid disorder Hereditary disease History of - respiratory disease Myocardial infarction Parkinson's disease Seizure disorder Stroke Review of Systems (CHC) Constitutional: chills, fever, weakness EENTM: No nose congestion, No throat pain Respiratory: short of breath Cardiovascular: No chest pain Gastrointestinal: No constipation, No diarrhea, No nausea, No vomiting Musculoskeletal: back pain, muscle weakness Skin: No rash; other (sacral decubitus ulcer) Psychiatric/Neurological: Anxiety Reviewed Test Results Reviewed Test Results Lab Laboratory Tests 02/21/19 10:15: White Blood Count 12.6H, Red Blood Count 3.74L, Hemoglobin 10.6L, Hematocrit 32L, Mean Corpuscular Volume 84, Mean Corpuscular Hemoglobin 28, Mean Corpuscular Hemoglobin Concent 34, Red Cell Distribution Width 14.3, Platelet Count 372, Mean Platelet Volume 7.9, Neutrophils (%) (Auto) 58, Lymphocytes (%) (Auto) 33, Monocytes (%) (Auto) 9, Eosinophils (%) (Auto) 0, Basophils (%) (Auto) 0, Neutrophils # (Auto) 7.3, Lymphocytes # (Auto) 4.2H, Monocytes # (Auto) 1.1H, Eosinophils # (Auto) 0.0, Basophils # (Auto) 0.0, Prothrombin Time 14.3, INR Comment 1.1, Activated Partial Thromboplast Time 27, Sodium Level 127L, Potassium Level 4.1, Chloride Level 96L, Carbon Dioxide Level 25, Anion Gap 6, Blood Urea Nitrogen 5L, Creatinine 0.63, Estimat Glomerular Filtration Rate > 60, BUN/Creatinine Ratio 8, Glucose Level 133H, Lactic Acid Level 1.71, Calcium Level 8.4L, Corrected Calcium 9.0, Total Bilirubin 0.3, Aspartate Amino Transf (AST/SGOT) 23, Alanine Aminotransferase (ALT/SGPT) 17, Alkaline Phosphatase 90, Total Protein 7.4, Albumin 3.2 02/21/19 10:25: Urine Color YELLOW, Urine Clarity CLEAR, Urine pH 8, Urine Specific [place] 1.015L, Urine Protein NEGATIVE, Urine Glucose (UA) NEGATIVE, Urine Ketones NEGATIVE, Urine Nitrite NEGATIVE, Urine Bilirubin NEGATIVE, Urine Urobilinogen NORMAL, Urine Leukocyte Esterase NEGATIVE, Urine RBC (Auto) NEGATIVE, Urine RBC RARE, Urine WBC NONE, Urine Crystals NONE, Urine Bacteria TRACE, Urine Casts NONE, Urine Mucus NEGATIVE, Urine Culture Indicated NO Microbiology 02/21/19 Influenza Types A,B Antigen (CITLALY) - Final, Complete Radiology CXR: Stable chest without acute abnormality detected. Physical Exam-([facility]) Physical Exam Vital Signs VS - Last 72 Hours, by Label 02/21/19 12:59 Temp 98.1 Capillary Refill : General Appearance: WD/WN, no apparent distress Respiratory: chest non-tender, lungs clear, normal breath sounds, no respiratory distress, no accessory muscle use Cardiovascular: regular rate, rhythm, no edema, no murmur Gastrointestinal: normal bowel sounds, non tender, soft, no organomegaly; No distended, No guarding, No rebound Neurologic/Psychiatric: normal mood/affect, oriented x 3, other (somnolent) Assessment/Plan Assessment/Plan Assessment & Plan 53 yo male with fever, hyponatremia. Will admit from Emergency Department to ICU. Will continue fluids and to monitor labs. ED put in referral to wound care for sacral decubitus ulcer and started IV empiric antibiotics PRANAY ZAMBRANO MD 02/21/192021: Home Medications Allergies Coded Allergies: No Known Drug Allergies (Unverified , 02/15/19) IER-Zdangr-Lrptjn Hx Family Medical History Family History: Abdominal aortic aneurysm 03 MOTHER (DOESN'T KNOW MOM'S MEDICAL HISTORY) Cancer 03 FATHER (TESTICULAR) Family history: Diabetes mellitus 03 FATHER Family history: Hypertension 03 FATHER No Family History of: Family history: Alzheimer's disease Family history: Arthritis Family history: Breast disease Family history: Cardiovascular disease Family history: Gastrointestinal disease Family history: Thyroid disorder Hereditary disease History of - respiratory disease Myocardial infarction Parkinson's disease Seizure disorder Stroke Assessment/Plan Assessment/Plan Admission Status: Inpatient Order (span 2 midnights) Reason for Inpatient Admission: Sepsis with multiple underlying comorbidities, high risk for decompensation. (1) Sepsis Status: Acute Assessment & Plan: Febrile, leukocytosis. No end organ dysfunction, BP improved with IVF alone. CXR without acute changes, UA unremarkable, flu swab neg, suspect possible source of infection is chronic sacral wound. Zosyn and Vancomycin. On midodrine at home, resume. Qualifiers: Qualified Codes: A41.9 - Sepsis, unspecified organism (2) Decubitus ulcer of coccygeal region, stage 4 Status: Chronic Assessment & Plan: Wound care consult. (3) Hyponatremia Status: Acute Assessment & Plan: NS at 150 mls/hr (4) HLD (hyperlipidemia) Status: Chronic (5) COPD (chronic obstructive pulmonary disease) Status: Chronic Assessment & Plan: Duonebs (6) Spinal cord injury at C1-C4 level Status: Chronic Assessment & Plan: Very limited movement in all 4 extremities. Qualifiers: Qualified Codes: S14.101S - Unspecified injury at C1 level of cervical spinal cord, sequela (7) DVT prophylaxis Status: Acute Assessment & Plan: Enoxaparin Supervisory-Addendum Brief Verification & Attestation Participated in pt care: history, MDM, physical Personally performed: exam, history, MDM Care discussed with: Medical Student Procedures: n/a Verification and Attestation of Medical Student E/M Service A medical student performed and documented this service in my presence. I reviewed and verified all information documented by the medical student and made modifications to such information, when appropriate. I personally performed the physical exam and medical decision making. See problem list for my assessment and plan. Pranay Zambrano, Feb 21, 2019,20:22 ROMAIN EDWARDS,MED STUDENT Feb 21, 2019 13:24 PRANAY ZAMBRANO MD Feb 21, 2019 20:22
[2019-02-21] MEDS: NS IV 1000 ML 1,000 ML IV SCH ×2 (13:31→21:37)
[2019-02-21] MEDS ORDERED: VANCOMYCIN 1250 MG/NS 250 ML IVPB IV NR ×2 (13:45)
--- NOTE | 2019-02-21 13:49 | NUR ---
VANCOMYCIN DOSING SCR 0.63; CRCL ~ 104; BOLUS VANC 20 MG/KG X 63 KG ~ 1250 MG THEN BASED ON DECEMBER DOSING 750 MG Q8H CHECK TROUGH LEVEL 02/23 AT 0500 HOLD DOSE AND CONTACT PHARMACY IF LEVEL IS GREATER THAN 20
--- NOTE | 2019-02-21 14:02 | Pulmonary Consultation ---
History of Present Illness History of Present Illness Date of Consultation 02/21/19 14:00 Time Seen by Provider: 14:05 Date of Admission History of Present Illness 53-year-old gentleman with hx of drug use and recent multiple hospitalizations presents to the emergency room via EMS with fever. 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 He was somnolent upon ED admission.States he took several melatonin tablets last night to help him rest. He did have fever of 102 while in the ED. He was dx with sepsis and admitted to ICU. He was also found to have a sacral decubitus ulcer. Allergies and Home Medications Allergies Coded Allergies: No Known Drug Allergies (Unverified , 02/15/19) Home Medications Alprazolam 0.25 Mg Tablet, 1 MG PO BID, (Reported) TAKES 4 (0.25MG) TABLETS (UNTIL GONE THEN WILL GET NEW SCRIPT FOR 1MG TABS TWICE DAILY) Baclofen 10 Mg Tablet, 5 MG PO TID, (Reported) Citalopram Hydrobromide 10 Mg Tablet, 10 MG PO DAILY Prescribed by: MARGUERITE GAN on 02/05/192036 Enoxaparin Sodium 40 Mg/0.4 Ml Syringe, 40 MG SC 1400, (Reported) FILLED #12 02-07-19 AND THEN THE REST ON 02-20-19 FOR #18 SYRINGES Famotidine 20 Mg Tablet, 20 MG PO BID Prescribed by: MARGUERITE GAN on 02/05/192036 Hydrocodone/Acetaminophen 1 Each Tablet, 1 TAB PO Q6H PRN for PAIN-MODERATE, (Reported) Insulin Detemir 100 Unit/1 Ml Insuln.pen, 15 UNIT SQ BID Prescribed by: MARGUERITE GAN on 02/05/192036 Ipratropium/Albuterol Sulfate 3 Ml Ampul.neb, 3 ML INH RTBID Prescribed by: MARGUERITE GAN on 02/05/192036 Loratadine 10 Mg Tablet, 10 MG PO DAILY Prescribed by: MARGUERITE GAN on 02/05/192036 Melatonin 5 Mg Tablet, 10 MG PO HS, (Reported) Miconazole Nitrate 90 Gm Powder, 0 GM TOP BID Prescribed by: MARGUERITE GAN on 02/05/192036 Midodrine HCl 10 Mg Tablet, 10 MG PO TID Prescribed by: MARGUERITE GAN on 02/05/192036 Montelukast Sodium 10 Mg Tablet, 10 MG PO HS Prescribed by: MARGUERITE GAN on 02/05/192036 Potassium Chloride 10 Meq Tablet.er, 10 MEQ PO DAILY@0700 Prescribed by: MARGUERITE GAN on 02/05/192036 Quetiapine Fumarate 50 Mg Tablet, 50 MG PO HS, (Reported) Sennosides 8.6 Mg Tablet, 8.6 MG PO BID PRN for CONSTIPATION-5TH LINE, ( Reported) Sodium Hypochlorite 473 Ml Solution, 0 ML TOP DAILY Prescribed by: MARGUERITE GAN on 02/05/192036 Tramadol HCl 50 Mg Tablet, 50 MG PO BID PRN for PAIN-MODERATE Prescribed by: MARGUERITE GAN on 02/05/192036 Past Thiofdk-Euolsk-Jhxdsk Hx Past Med/Social Hx: Reviewed and Corrections made Patient Social History Alcohol Use: Denies Use Number of Drinks Today: Alcohol Beverage of Choice: Wine Recreational Drug Use: Yes (10 YEARS AGO) Type Used: Cigarettes 2nd Hand Smoke Exposure: Yes Recent Foreign Travel: No Contact w/Someone Who Travel: No Recent Infectious Disease Expo: No Recent Hopitalizations: Yes (SPINAL CORD INJURY AND AT [place] 7-19 RECENT HOSPITALIZATION FOR SEPSIS) Physical Abuse: No Sexual Abuse: No Immunizations Up To Date Tetanus Booster (TDap): Unknown PED Vaccines UTD: Yes Date of Pneumonia Vaccine: Sep 04, 2015 Date of Influenza Vaccine: Apr 05, 2017 Seasonal Allergies Seasonal Allergies: Yes (TALL GRASS, ANIMALS) Past Medical History Surgeries: Yes (hernia repair x 2,2 teeth removed,bladder and kidney problems in childhood) Abdominal, Orthopedic Respiratory: Yes (OCCASIONALLY USES INHALER DUE TO OUTSIDE ALLERGENS) COPD Currently Using CPAP: No Currently Using BIPAP: No Cardiac: No Neurological: Yes Neuropathy, 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 With some movement of the upper extremities and minimal movement of the lower extremities), Traumatic Brain Injury Reproductive Disorders: No Sexually Transmitted Disease: No Genitourinary: Yes (URINARY FREQUENCY) Bladder Infection Gastrointestinal: Yes Gastroesophageal Reflux, Polyps Musculoskeletal: Yes (LEFT FOOT FX/ORIF; CHRONIC FOOT PAIN--NEUROPATHY) Chronic Back Pain, Fractures Endocrine: Yes Diabetes, Insulin dep HEENT: Yes Cataract Cancer: No Psychosocial: Yes Sleep Difficulties, Anxiety Integumentary: Yes (sacral decubitus ulcer) Blood Disorders: No Adverse Reaction/Blood Tranf: No Family Medical History Abdominal aortic aneurysm 03 MOTHER (DOESN'T KNOW MOM'S MEDICAL HISTORY) Cancer 03 FATHER (TESTICULAR) Family history: Diabetes mellitus 03 FATHER Family history: Hypertension 03 FATHER No Family History of: Family history: Alzheimer's disease Family history: Arthritis Family history: Breast disease Family history: Cardiovascular disease Family history: Gastrointestinal disease Family history: Thyroid disorder Hereditary disease History of - respiratory disease Myocardial infarction Parkinson's disease Seizure disorder Stroke AAA, Diabetes, Hypertension Review of Systems Time Seen by Provider: 14:02 Constitutional: Fever, Chills, Sweats, Weakness, Malaise, Other Eyes: No: Pain, Vision change, Conjunctivae inflammation, Eyelid inflammation, Other, Redness ENT: Nose congestion; No: Ear pain, Ear discharge, Nose pain, Nose discharge, Mouth pain, Mouth swelling, Throat pain, Throat swelling, Other Respiratory: Cough, Dry, Shortness of breath, SOB with excertion, Wheezing; No: Hemoptysis, Pleuritic Pain, Sputum, Wheezing, Other Cardiovascular: No: Chest Pain, Palpitations, Orthopnea, Paroxysmal Noc. Dyspnea, Edema, Lt Headedness, Other Sepsis Event Evaluation Height, Weight, BMI Height: 5'3.00" Weight: 140lbs. 8.0oz. 63.748180os; 24.9 BMI Method:Stated Exam Exam Vital Signs Date Time Temp Pulse Resp B/P (MAP) Pulse Ox O2 Delivery O2 Flow Rate FiO2 02/21/19 12:59 98.1 02/21/19 12:41 Nasal Cannula 2.00 02/21/19 12:30 99.1 73 18 126/79 (95) 97 Nasal Cannula 2.00 02/21/19 12:15 97 Nasal Cannula 2.00 02/21/19 09:44 102.7 78 18 134/81 (98) 93 Room Air Height & Weight Height: 5'3.00" Weight: 140lbs. 8.0oz. 63.772856fr; 24.9 BMI Method:Stated General Appearance: No Apparent Distress, WD/WN, Other (somnolent, lethargic but alert and oriented) HEENT: PERRL/EOMI, Normal ENT Inspection, Other (oropharynx dry) Neck: Normal Inspection Respiratory: Lungs Clear, Normal Breath Sounds, No Accessory Muscle Use, No Respiratory Distress Cardiovascular: Regular Rate, Rhythm, No Edema, No Murmur, Normal Peripheral Pulses Capillary Refill: Less Than 3 Seconds Gastrointestinal: normal bowel sounds, non tender, soft, no organomegaly; No distended, No guarding, No rebound Extremity: Normal Inspection, No Pedal Edema Neurologic/Psychiatric: Alert, Oriented x3, Normal Mood/Affect, softball umpire II-XII Norm as Tested, Other (somnolent but alert and oriented partial quadriplegia with some movement of the upper extremities and minimal movement of the lower extremities) Skin: Normal Color, Warm/Dry Lymphatic: No Adenopathy Results Lab Laboratory Tests 02/21/19 10:15 Assessment/Plan Assessment/Plan Sepsis - suspected wound infection -Continue Vanco Zosyn (hx of pseudomonas and MSSA infections) -Lopez cultures -IVF -Wound care consult Mild Hypotension -IVF cont at 150 Marijuana use -HX of illicit drug use -Check UDS Hx of COPD -Currently on room air Neurogenic bladder DM Spinal cord injury C1-C4 Anxiety ALONDRA HUSSEIN DO Feb 21, 2019 14:02
[2019-02-21 14:23] LABS: AMPHETAMINE SCREEN, URINE NEGATIVE (NEGATIVE); BARBITURATE SCREEN URINE NEGATIVE (NEGATIVE); BENZODIAZEPINES SCREEN URINE POSITIVE (NEGATIVE); CANNABINOID SCREEN, URINE NEGATIVE (NEGATIVE); COCAINE SCREEN URINE NEGATIVE (NEGATIVE); METHADONE STAT NEGATIVE (NEGATIVE); METHAMPHETAMINE SCREEN URINE S NEGATIVE (NEGATIVE); OPIATE SCREEN URINE POSITIVE (NEGATIVE); OXYCODONE STAT NEGATIVE (NEGATIVE); PROPOXYPHENE STAT NEGATIVE (NEGATIVE); TRICYCLIC ANTIDEPRESSANTS SCRE NEGATIVE (NEGATIVE)
[2019-02-21] MEDS ORDERED: SENN-141 PO (16:15)
[2019-02-21] MEDS ORDERED: MELA5TAB14 PO (16:15)
[2019-02-21] MEDS ORDERED: BACL10TA PO (16:15)
[2019-02-21] MEDS ORDERED: ENOX40DI8 SC (16:15)
[2019-02-21] MEDS ORDERED: QUET50TA55 PO (16:15)
--- NOTE | 2019-02-21 16:16 | NUR ---
CALLED AND SPOKE WITH THE PATIENTS REGARDING MEDICATIONS. THEY FILLED [address] [facility] AND 1 AT [facility]. THEY HAVE PICKED THEM ALL UP. THE BACLOFEN SCRIPT WAS CHANGED TO 5MG TID AND SENNA 8.6MG BID PRN WAS PRESCRIBED. THE THE OTHERS FROM [facility] WERE REFILLS. STATES THEY DID NOT PRESCRIBED MORE MELATONIN BUT SHE PURCHASED 5MG TABLETS OTC AND GIVES HIM 2 AT HS. ALSO HIS XANAX SCRIPT WAS LAST FILLED FOR THE 0.25MG TABLETS, SHE STATES HE IS SUPPOSED TO TAKE 1MG BID SO THEY HAVE TOLD THEM TO TAKE 4 TABS BID OF THE 0.25MG UNTIL GONE THEN A NEW SCRIPT WILL BE WRITTEN. ALSO, ON 02-07-19 [facility] FILLED LOVENOX FOR #12 SYRINGES, IT SHOULD HAVE BEEN FOR #30. THEY FIXED THAT FILL AND THE PATIENT PICKED UP THE REMAINING 18 SYRINGES YESTERDAY.
--- NOTE | 2019-02-21 17:48 | NUR ---
PTS BP 70'S/50'S, DR HUSSEIN NOTIFIED. NEW ORDERS RECEIVED.
[2019-02-21] MEDS ORDERED: NS IV 1000 ML 1,000 ML IV ONE (18:15)
[2019-02-21] MEDS: PIPERACILLIN/TAZO 4.5 GM/NS 100 ML IV SCH ×2 (18:30)
[2019-02-21] MEDS ORDERED: NON-FORMULARY MEDICATION 1 EA EA (Sennosides (Senna) 8.6 MG) PO PRN (19:30)
[2019-02-21] MEDS ORDERED: NON-FORMULARY MEDICATION 1 EA EA (Hydrocodone/Acetaminophen (Hydrocodone-Acetamin 5-325 mg PO PRN (19:30)
[2019-02-21] MEDS ORDERED: SENNOSIDES 8.6 MG (SENOKOT) TAB PO PRN (19:45)
[2019-02-21] MEDS: BACLOFEN 10 MG (LIORESAL) TAB PO SCH (20:22)
[2019-02-21] MEDS: MONTELUKAST 10 MG (SINGULAIR) TAB PO SCH (20:22)
[2019-02-21] MEDS: ALPRAZolam 1 MG (XANAX) TAB PO SCH (20:22)
[2019-02-21] MEDS: FAMOTIDINE 20 MG (PEPCID) TABLET PO SCH (20:23)
[2019-02-21] MEDS: inSUlin ASPART (NovoLOG) 1 UNIT/0.01 ML (CHARGE PER UNIT) SC SCH (20:26)
[2019-02-21] MEDS ORDERED: ALPRAZolam 0.25 MG (XANAX) TAB PO SCH (21:00)
[2019-02-21] MEDS ORDERED: NON-FORMULARY MEDICATION 1 EA EA (Famotidine 20 MG) PO SCH (21:00)
[2019-02-21] MEDS: RT-ALBUTEROL/IPRATROPIUM 3 ML (DUONEB) VIAL INH SCH (22:52)
[2019-02-21] MEDS: VANCOMYCIN 750 MG/NS 250 ML IVPB IV SCH ×2 (23:22)
[2019-02-22] VITALS (15 sets, daily range): BP systolic 103–165; BP diastolic 63–92
[2019-02-22] MEDS: PIPERACILLIN/TAZO 4.5 GM/NS 100 ML IV SCH ×6 (02:08→17:32)
[2019-02-22 03:38] LABS: BASOPHILS % (AUTO) 0 % (0-10); EOSINOPHILS # (AUTO) 0.1 10^3/uL (0.0-0.3); EOSINOPHILS % (AUTO) 1 % (0-10); HEMATOCRIT 30 % (40-54); HEMOGLOBIN 9.7 G/DL (13.3-17.7); LYMPHOCYTES # (AUTO) 1.4 X 10^3 (1.0-4.0); LYMPHOCYTES % (AUTO) 19 % (12-44); MEAN CORPUSCULAR HEMOGLOBIN 28 PG (25-34); MEAN CORPUSCULAR HGB CONC 32 G/DL (32-36); MEAN CORPUSCULAR VOLUME 89 FL (80-99); MEAN PLATELET VOLUME 8.3 FL (7.4-10.4); MONOCYTES # (AUTO) 0.9 X 10^3 (0.0-1.0); MONOCYTES % (AUTO) 12 % (0-12); NEUTROPHILS # (AUTO) 4.7 X 10^3 (1.8-7.8); NEUTROPHILS % (AUTO) 67 % (42-75); PLATELET COUNT 288 10^3/uL (130-400); RED CELL DISTRIBUTION WIDTH 14.2 % (10.0-14.5); WHITE BLOOD COUNT 7.1 10^3/uL (4.3-11.0)
[2019-02-22 03:58] LABS: BUN/CREATININE RATIO 11; CALCIUM 7.9 MG/DL (8.5-10.1); CARBON DIOXIDE 19 MMOL/L (21-32); CHLORIDE 112 MMOL/L (98-107); CREATININE SERUM 0.61 MG/DL (0.60-1.30); GFR ESTIMATED > 60; GLUCOSE 119 MG/DL (70-105); PHOSPHORUS 3.5 MG/DL (2.3-4.7); POTASSIUM 3.9 MMOL/L (3.6-5.0); SODIUM 139 MMOL/L (135-145)
[2019-02-22] MEDS: ALPRAZolam 1 MG (XANAX) TAB PO SCH (04:06)
[2019-02-22] MEDS: HYDROcodone/APAP 5 MG/325 MG (LORTAB) TAB PO PRN ×4 (04:06→23:12)
--- NOTE | 2019-02-22 04:25 | Pulmonary Progress Note ---
Subjective Time Seen by a Provider: 04:24 Subjective/Events-last exam Hypotension improved. Tm 102.7 Sepsis Event Evaluation Height, Weight, BMI Height: 5'3.00" Weight: 140lbs. 8.0oz. 63.515831wy; 24.9 BMI Method:Stated Focused Exam Lactate Level 02/21/19 10:15: Lactic Acid Level 1.71 Exam Exam Vital Signs Date Time Temp Pulse Resp B/P (MAP) Pulse Ox O2 Delivery O2 Flow Rate FiO2 02/22/19 03:00 71 23 144/88 (106) 97 Nasal Cannula 2.00 02/22/19 02:00 68 20 113/69 (84) 98 Nasal Cannula 2.00 02/22/19 01:00 67 22 106/63 (77) 98 Nasal Cannula 2.00 02/22/19 01:00 70 02/22/19 00:00 97.7 02/22/19 00:00 68 22 116/71 (86) 98 Nasal Cannula 2.00 02/22/19 00:00 Nasal Cannula 2.00 02/21/19 23:00 61 21 100/64 (76) 99 Nasal Cannula 2.00 02/21/19 22:52 99 Nasal Cannula 2.00 02/21/19 22:00 62 23 95/57 (70) 98 Nasal Cannula 2.00 02/21/19 21:00 70 18 87/51 (63) 99 Nasal Cannula 2.00 02/21/19 20:00 Nasal Cannula 2.00 02/21/19 20:00 97.1 02/21/19 20:00 64 19 87/53 (64) 97 Nasal Cannula 2.00 02/21/19 19:00 64 18 81/48 (59) 98 Nasal Cannula 2.00 02/21/19 19:00 64 02/21/19 18:00 60 21 77/51 (60) 97 Nasal Cannula 2.00 02/21/19 17:00 54 58 90/63 (72) 96 Nasal Cannula 2.00 02/21/19 16:21 Nasal Cannula 2.00 02/21/19 16:05 96.5 02/21/19 16:00 55 20 89/59 (69) 96 Nasal Cannula 2.00 02/21/19 15:00 57 20 92/60 (71) 96 Nasal Cannula 2.00 02/21/19 14:00 56 18 97/64 (75) 96 Nasal Cannula 2.00 02/21/19 13:00 71 20 130/70 (90) 97 Nasal Cannula 2.00 02/21/19 12:59 98.1 02/21/19 12:56 74 02/21/19 12:41 Nasal Cannula 2.00 02/21/19 12:30 99.1 73 18 126/79 (95) 97 Nasal Cannula 2.00 02/21/19 12:15 97 Nasal Cannula 2.00 02/21/19 09:44 102.7 78 18 134/81 (98) 93 Room Air I & O 02/22/19 07:00 Intake Total 5819.5 ml Output Total 2900 ml Balance 2919.5 ml Height & Weight Height: 5'3.00" Weight: 140lbs. 8.0oz. 63.302336kd; 24.9 BMI Method:Stated General Appearance: No Apparent Distress, WD/WN, Other (somnolent, lethargic but alert and oriented) HEENT: PERRL/EOMI, Normal ENT Inspection, Other (oropharynx dry) Neck: Normal Inspection Respiratory: Lungs Clear, Normal Breath Sounds, No Accessory Muscle Use, No Respiratory Distress Cardiovascular: Regular Rate, Rhythm, No Edema, No Murmur, Normal Peripheral Pulses Capillary Refill: Less Than 3 Seconds Gastrointestinal: normal bowel sounds, non tender, soft, no organomegaly; No distended, No guarding, No rebound Extremity: Normal Inspection, No Pedal Edema Neurologic/Psychiatric: Alert, Oriented x3, Normal Mood/Affect, audio director II-XII Norm as Tested, Other (somnolent but alert and oriented partial quadriplegia with some movement of the upper extremities and minimal movement of the lower ex tremities) Results Lab Laboratory Tests 02/21/19 10:15 02/22/19 02:56 Assessment/Plan Assessment/Plan Sepsis - suspected wound infection -Vanco Zosyn (hx of pseudomonas and MSSA infections) -Lopez cultures -IVF -Wound care consult Marijuana use -HX of illicit drug use - UDS - negative this hospitalization Hx of COPD -SVNs -Monitor Neurogenic bladder DM Spinal cord injury C1-C4 Anxiety ALONDRA HUSSEIN DO Feb 22, 2019 04:25
[2019-02-22] MEDS ORDERED: LACTATED RINGERS 1,000 ML IV ONE (04:34)
[2019-02-22] MEDS: LACTATED RINGERS 1,000 ML IV SCH (04:47)
[2019-02-22] MEDS: inSUlin ASPART (NovoLOG) 1 UNIT/0.01 ML (CHARGE PER UNIT) SC SCH (04:54)
[2019-02-22] MEDS ORDERED: KCL 20 MEQ TAB (K-DUR) PO SCH (06:00)
[2019-02-22] MEDS ORDERED: POTASSIUM CL 10MEQ/50ML IVPB 50 ML IV SCH (06:00)
[2019-02-22] MEDS ORDERED: MAGNESIUM 1 GM/100 ML IVPB 100 ML IV SCH (06:00)
[2019-02-22] MEDS: VANCOMYCIN 750 MG/NS 250 ML IVPB IV SCH ×6 (06:01→23:12)
[2019-02-22] MEDS: BACLOFEN 10 MG (LIORESAL) TAB PO SCH ×3 (07:45→21:45)
[2019-02-22] MEDS: MIDODRINE 10 MG (PROAMATINE) TAB PO SCH ×3 (07:45→16:26)
[2019-02-22] MEDS: FAMOTIDINE 20 MG (PEPCID) TABLET PO SCH ×2 (07:46→21:45)
[2019-02-22] MEDS: RT-ALBUTEROL/IPRATROPIUM 3 ML (DUONEB) VIAL INH SCH ×2 (08:19→23:59)
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
--- NOTE | 2019-02-22 08:42 | Diagnostic Imaging Report ---
INDICATION: Shortness of breath Portable chest 3:32 AM There are postsurgical changes from internal fixation of the right posterior fourth through ninth ribs. Heart and mediastinum are normal. Lungs are clear. There are no effusions or pneumothoraces. IMPRESSION: No acute abnormalities in the chest. Dictated by: Dictated on workstation # [id number]
--- NOTE | 2019-02-22 10:15 | NUR ---
PT TRANSFERRED TO ROOM 428 VIA BED W/ STAFF AND PERSONAL BELONGINGS. REPORT GIVEN TO TAMIKO BONILLA WHO ASSUMES CARE OF PT. NO QUESTIONS/CONCERNS VOICED.
[2019-02-22] MEDS: ALPRAZolam 1 MG (XANAX) TAB PO PRN ×3 (10:31→23:10)
--- NOTE | 2019-02-22 11:41 | NUR ---
Initial visit in ICU. The pt shared he signed himself out of the hospital his last stay because he was frustrated with the care. He reflected that he now hopes to stay until he has amply recovered, although he wants to be home Tuesday for his son's 17th birthday. He looks forward to presenting his son with a pickup truck. The pt shared prayer in my presence, offering his personal prayer of thanks to God.
[2019-02-22] MEDS ORDERED: ENOXAPARIN 40 MG/0.4 ML (LOVENOX) SYR SC SCH (14:00)
[2019-02-22] MEDS ORDERED: ENOXAPARIN SODIUM 40 MG SC SCH (14:00)
--- NOTE | 2019-02-22 16:00 | NUR ---
DR. HADDAD TO FLOOR AT THIS TIME TO SEE PATIENT IN RE: WOUND CONSULT. PATIENT AND DR. HADDAD HAD LONG CONVERSATION ABOUT WOUND CARE AND OFFSETTING WEIGHT TO HELP THE WOUND HEAL. THE PATIENT REFUSED FOR DR. HADDAD TO SET A PLAN OF CARE, THEN DEMANDED THAT THIS RN ( TAMIKO SNELL) REMOVE THE NEWLY DRESSED PACKING (WET-TO-DRY DRESSING) THAT THIS RN HAD JUST PLACED TO HIS SACRAL WOUND. PATIENT DRESSING REMOVED BY THIS RN PER PATIENT REQUEST. PCCT IN ROOM ALSO AT THIS TIME TO TAKE BLOOD SUGAR PER GLUCOMETER AND PATIENT REFUSED ALSO TO HAVE THE BLOOD SUGAR TAKEN. THIS RN WILL CONT. TO MONITOR THIS PATIENT THROUGHOUT THE REMAINDER OF THIS SHIFT. PRIOR TO LEAVING HIS ROOM, THIS RN REPOSITIONED PATIENT TO HIS LEFT SIDE. PILLOWS AT HIS BACK AND BETWEEN HIS KNEES PER HIS REQUEST. PERRY CATHETER DRAINING CLEAR, LIGHT MARIAM URINE AT THIS TIME. Addendum: 02/22/19 at 1614 by TAMIKO LOPEZ RN PATIENT STATED FOR THIS RN TO"REMOVE THE PACKING, SO IT CAN SCAB OVER."
--- NOTE | 2019-02-22 16:09 | Wound Care Assessment ---
Wound Care Assessment Date Seen by Provider: Feb 22, 2019 Time Seen by Provider: 15:59 Chief Complaint Sacral pressure ulcer. HPI The patient is a 53 year old male with quadriplegia and a Stage 4 sacral pressure ulcer. The patient expressed concern that his wound was not being treated as he wanted. He was told that if the wounded area is not off-loaded, the wound will not heal no matter what other interventions are undertaken. The nursing staff states that they have attempted to position the patient in an off-loading manner, and he has refused. He is asked if he is willing to off- load the wound and he states no. He requests that his wound be followed and cared for by the surgeons who have cared for him previously. I am unable to establish a therapeutic relationship with the patient, and will defer all further wound management to his primary care provider and appropriate consultants. I sign off. Quadriplegia, traumatic. Recreational Drug Use: Yes (10 YEARS AGO) Alcohol Use: Denies Use Review of Systems Musculoskeletal: shoulder pain Exam Vital Signs Date Time Temp Pulse Resp B/P (MAP) Pulse Ox O2 Delivery O2 Flow Rate FiO2 02/22/19 12:00 Nasal Cannula 02/22/19 12:00 97.4 59 20 165/81 (109) 97 2.00 Capillary Refill : Less Than 3 Seconds General Appearance: no apparent distress Respiratory: no respiratory distress Back: other (Deep sacral pressure ulcer with ~50% of base grayish tissue consistent with on-going pressure injury.) Results Laboratory Tests 02/21/19 20:13: Glucometer 152H 02/22/19 02:56: White Blood Count 7.1, Red Blood Count 3.43L, Hemoglobin 9.7L, Hematocrit 30L, Mean Corpuscular Volume 89, Mean Corpuscular Hemoglobin 28, Mean Corpuscular Hemoglobin Concent 32, Red Cell Distribution Width 14.2, Platelet Count 288, Mean Platelet Volume 8.3, Neutrophils (%) (Auto) 67, Lymphocytes (%) (Auto) 19, Monocytes (%) (Auto) 12, Eosinophils (%) (Auto) 1, Basophils (%) (Auto) 0, Neutrophils # (Auto) 4.7, Lymphocytes # (Auto) 1.4, Monocytes # (Auto) 0.9, Eosinophils # (Auto) 0.1, Basophils # (Auto) 0.0, Sodium Level 139, Potassium Level 3.9, Chloride Level 112#H, Carbon Dioxide Level 19L, Anion Gap 8, Blood Urea Nitrogen 7, Creatinine 0.61, Estimat Glomerular Filtration Rate > 60, BUN/Creatinine Ratio 11, Glucose Level 119H, Calcium Level 7.9L, Phosphorus Level 3.5, Magnesium Level 2.0 02/22/19 11:27: Glucometer 201H Microbiology 02/21/19 Blood Culture - Preliminary, Resulted No growth 02/21/19 MRSA Screen - Final, Complete MRSA not isolated 02/21/19 Urine Culture - Final, Complete NO GROWTH Microbiology 02/21/19 Blood Culture - Preliminary, Resulted No growth 02/21/19 Blood Culture - Preliminary, Resulted No growth 02/21/19 MRSA Screen - Final, Complete MRSA not isolated 02/21/19 Influenza Types A,B Antigen (CITLALY) - Final, Complete 02/21/19 Urine Culture - Final, Complete NO GROWTH Assessment/Plan/Dx 1. Sacral pressure ulcer, Stage 4, with on-going pressure injury. 2. Quadriplegia. Plan: I am unable to establish a therapeutic relationship with the patient. He requests consultation with a different physician. I will sign off. RODO HADDAD MD Feb 22, 2019 16:08
--- NOTE | 2019-02-22 18:53 | NUR ---
This RN called to patients room at approximately 1815 to take patient complaint. Patient c/o not getting his pain medication and anxiety medication for "hours." Upon review of patients chart, the patient has gotten his medication per the EMAR on a very regular q6h schedule. This RN informed patient that he has gotten his medications at the prescribed intervals and he states "well to me it feels like it takes them hours to get in here to take care of me." The patient has been rounded on at least hourly per RN and applied psychology teacher report. Patient requests to have a different bedside RN, The patient will be getting a new RN at shift change. Patient argues about his wound and what the plan of care is. This RN informed patient that I was not his primary nurse, but it was my understanding that he couldn't have the wound vac at this time per physicians orders. I informed the patients that the patient refused the 1600 dressing change and requested that the RN take the dressing off at that time. very upset with the patient and requested that this RN replace the dressing. I spoke with the patient and stated that its in his best interest to have his wound dressed properly as the physician has ordered. This RN then placed a saline soaked gauze in the wound bed, covered with a telfa pad and medipore tape. The patient also complained that the pain medicine "doesn't do shit" for his shoulder pain that is resultant from the internal fixation devices placed at previous hospital. This RN spoke with Dr. Zambrano about patients concerns with inadequate pain management and she orders for the patient to have 1 hydrocodone/acetaminophen 5/325 at this time and to change his pain medication order to read hydrocodone/acetaminophen 5/325 1-2 tabs Q6H PRN pain. This RN will place order and update patient with changes to his pain regimen. I asked Dr. Zambrano if we could resume the schedule of the pain medication that we were doing before which would result in him getting more pain medication at 2200. She states this would be ok. I will update the patients oncoming manufacturing shift supervisor RN.
[2019-02-22] MEDS ORDERED: HYDROcodone/APAP 5 MG/325 MG (LORTAB) TAB PO NR (19:15)
[2019-02-22] MEDS: MONTELUKAST 10 MG (SINGULAIR) TAB PO SCH (21:45)
[2019-02-23] MEDS: PIPERACILLIN/TAZO 4.5 GM/NS 100 ML IV SCH ×4 (01:59→10:05)
[2019-02-23 04:00] VITALS: BP 145/83
[2019-02-23] MEDS ORDERED: TROUGH ORDER-PHARMACY XX NR (05:00)
[2019-02-23 06:31] LABS: BASOPHILS % (AUTO) 0 % (0-10); EOSINOPHILS # (AUTO) 0.1 10^3/uL (0.0-0.3); EOSINOPHILS % (AUTO) 2 % (0-10); HEMATOCRIT 31 % (40-54); HEMOGLOBIN 9.8 G/DL (13.3-17.7); LYMPHOCYTES # (AUTO) 2.1 X 10^3 (1.0-4.0); LYMPHOCYTES % (AUTO) 32 % (12-44); MEAN CORPUSCULAR HEMOGLOBIN 28 PG (25-34); MEAN CORPUSCULAR HGB CONC 32 G/DL (32-36); MEAN CORPUSCULAR VOLUME 88 FL (80-99); MEAN PLATELET VOLUME 8.3 FL (7.4-10.4); MONOCYTES # (AUTO) 0.8 X 10^3 (0.0-1.0); MONOCYTES % (AUTO) 12 % (0-12); NEUTROPHILS # (AUTO) 3.6 X 10^3 (1.8-7.8); NEUTROPHILS % (AUTO) 54 % (42-75); PLATELET COUNT 313 10^3/uL (130-400); RED CELL DISTRIBUTION WIDTH 14.3 % (10.0-14.5); WHITE BLOOD COUNT 6.6 10^3/uL (4.3-11.0)
[2019-02-23 06:38] LABS: BUN/CREATININE RATIO 5; CALCIUM 8.6 MG/DL (8.5-10.1); CARBON DIOXIDE 21 MMOL/L (21-32); CHLORIDE 108 MMOL/L (98-107); CREATININE SERUM 0.57 MG/DL (0.60-1.30); GFR ESTIMATED > 60; GLUCOSE 103 MG/DL (70-105); POTASSIUM 3.5 MMOL/L (3.6-5.0); SODIUM 138 MMOL/L (135-145)
[2019-02-23] MEDS: VANCOMYCIN 750 MG/NS 250 ML IVPB IV SCH ×2 (06:52)
[2019-02-23] MEDS: ALPRAZolam 1 MG (XANAX) TAB PO PRN (07:00)
[2019-02-23] MEDS: HYDROcodone/APAP 5 MG/325 MG (LORTAB) TAB PO PRN (07:00)
[2019-02-23] MEDS: MIDODRINE 10 MG (PROAMATINE) TAB PO SCH ×2 (07:01→11:43)
--- NOTE | 2019-02-23 07:43 | NUR ---
VANCOMYCIN DOSING TROUGH LEVEL (~6HR LEVEL) 19.0 - CONTINUE CURRENT DOSE OF VANC 750 MG Q8H
[2019-02-23 08:00] VITALS: BP 158/90
[2019-02-23] MEDS: LACTATED RINGERS 1,000 ML IV SCH ×2 (08:06→08:09)
[2019-02-23] MEDS: FAMOTIDINE 20 MG (PEPCID) TABLET PO SCH (08:07)
[2019-02-23] MEDS: BACLOFEN 10 MG (LIORESAL) TAB PO SCH ×2 (08:07→11:43)
[2019-02-23] MEDS: RT-ALBUTEROL/IPRATROPIUM 3 ML (DUONEB) VIAL INH SCH (11:47)
[2019-02-23] MEDS ORDERED: AMOX-358 PO (13:12)
--- NOTE | 2019-02-23 13:14 | Discharge Instructions ---
Discharge [facility] Discharge Medications New, Converted or Re-Newed RX: Transmitted to Pharmacy New Medications: Amoxicillin/Potassium Clav (Augmentin 875-125 Tablet) 1 Each Tablet 1 EACH PO BID, #20 TAB 0 Refills Continued Medications: Alprazolam (Alprazolam) 0.25 Mg Tablet 1 MG PO BID, TAB TAKES 4 (0.25MG) TABLETS (UNTIL GONE THEN WILL GET NEW SCRIPT FOR 1MG TABS TWICE DAILY) Baclofen (Baclofen) 10 Mg Tablet 5 MG PO TID, TAB Citalopram Hydrobromide (Citalopram HBr) 10 Mg Tablet 10 MG PO DAILY, #30 TAB Enoxaparin Sodium (Enoxaparin Sodium) 40 Mg/0.4 Ml Syringe 40 MG SC 1400, EA FILLED #12 02-07-19 AND THEN THE REST ON 02-20-19 FOR #18 SYRINGES Famotidine (Famotidine) 20 Mg Tablet 20 MG PO BID, #60 TAB Hydrocodone/Acetaminophen (Hydrocodone-Acetamin 5-325 mg) 1 Each Tablet 1 TAB PO Q6H PRN for PAIN-MODERATE, TAB Insulin Detemir (Levemir Flextouch) 100 Unit/1 Ml Insuln.pen 15 UNIT SQ BID, #5 EA Ipratropium/Albuterol Sulfate (Iprat-Albut 0.5-3(2.5) mg/3 ml) 3 Ml Ampul.neb 3 ML INH RTBID, #60 INHALER Loratadine (Loratadine) 10 Mg Tablet 10 MG PO DAILY, #30 TAB Melatonin (Melatonin) 5 Mg Tablet 10 MG PO HS, TAB Miconazole Nitrate (Lotrimin AF) 90 Gm Powder 0 GM TOP BID, #1 EA Midodrine HCl (Midodrine HCl) 10 Mg Tablet 10 MG PO TID, #90 TAB Montelukast Sodium (Montelukast Sodium) 10 Mg Tablet 10 MG PO HS, #30 TAB Potassium Chloride (Klor-Con 10) 10 Meq Tablet.er 10 MEQ PO DAILY@0700, #14 TAB Quetiapine Fumarate (Quetiapine Fumarate) 50 Mg Tablet 50 MG PO HS, TAB Sennosides (Senna) 8.6 Mg Tablet 8.6 MG PO BID PRN for CONSTIPATION-5TH LINE, TAB Sodium Hypochlorite (Dakin's) 473 Ml Solution 0 ML TOP DAILY, #1 EA Tramadol HCl (Tramadol HCl) 50 Mg Tablet 50 MG PO BID PRN for PAIN-MODERATE, #30 TAB Patient Instructions Goal/Follow Up Appt: Follow up with Katerin Garcia at [facility] on 02/26 at 11:40 am. Follow up with Dr. García as soon as possible for wound follow up. [facility] to [facility] For: Fever, inability to keep down medications Activity & Diet Discharge Diet: Regular Diet Activity as Tolerated: Yes Copy Copies To 1: LYLA Oritz BETHANY N MD Feb 23, 2019 13:14
--- NOTE | 2019-02-23 13:37 | NUR ---
CM/SS, respond to consult for complex psychosocial issues and discharge planning. Patient and spouse Susan Fink agreed that he would discharge home today. HHC: Resumed with [facility] agency. Spoke with Dir/Will x 2 to clarify that they would followup on wound vac order with Dr. García. Dr. Zambrano discussed patient and wound vac with Dr. García who reportedly indicated he had already signed paperwork to get the vac. SUMMARY: Patient reportedly was resistive and noncompliant about hospital interdisciplinary team attempts to assess, recommend, and provide care appropriate to need. Dr. Craven reportedly signed off because of patient refusal to follow recommendations and overall noncompliance, see EMR. Balance Wheel Arm Burnisher rounded with Dr. Zambrano and had discussion with Susan about options. Susan expressed her frustration with patient's attitude and hatefulness, she also indicated he sometimes makes accusations that they (family and caregivers) are trying to harm him. Susan was pointed in her discussion that she was at wits end with patient, and asked what we would do if she refused to take him home, left hospital, and didn't come back. Explained the attempt would be made for emergency placement but this could not be accomplished without patient agreement to admit himself. Process would likely involve hotline with [facility] and patient could linger in hospital without medical justification. With his overall noncompliance and lack of cooperation finding accepting SNF would be difficult. Susan stated that a wound vac was supposed to have been delivered for home use and that they were current with [facility]. Balance Wheel Arm Burnisher explored and traced this process, [facility] agency to resume pursuit of order and application for vac. Physician and movie writer were empathetic to overall situation and answered Susan's questions to the best of our ability. She verbalized frustration about patient's noncompliance which all agreed was problematic for being able to utilize and maximize resources. Patient had already conveyed to staff he wanted to return home oliverio and did not agree to SNF admission. Updated unit RN about HHC and Dr. García for post hospital followup.
[2019-02-23 13:44] VITALS: BP 158/90
--- NOTE | 2019-02-23 14:35 | Discharge Summary ---
ROMAIN EDWARDS,MED STUDENT 02/23/19 1429: Discharge Summary Hospital Course Problems/Diagnosis: (1) Sepsis Assessment & Plan: Febrile, leukocytosis. No end organ dysfunction, BP improved with IVF alone. CXR without acute changes, UA unremarkable, flu swab neg, suspect possible source of infection is chronic sacral wound. Zosyn and Vancomycin. On midodrine at home, resume. 02/22 Improved, blood pressure stable. Transfer to floor. 02/23 Fever and leukocytosis resolved. BP improved. Home with oral antibiotic (augmentin), keep pressure off of ulcer as best as possible. Discussed option of rehab or home with home health as prior. Patients is hesitant to bring him back home at this time. Patient refused rehab or any outside facility. After discussion with with plan witll be for him to go home with Home health for nursing care along with . Qualifiers: Qualified Codes: A41.9 - Sepsis, unspecified organism (2) Decubitus ulcer of coccygeal region, stage 4 Assessment & Plan: Wound care follow-up appointment with Dr. García for discussion of wound vac (3) Hyponatremia Resolution Date/Time: 02/22/19 @ 08:32 Assessment & Plan: normalized with overnight IVF (4) HLD (hyperlipidemia) (5) COPD (chronic obstructive pulmonary disease) Assessment & Plan: Duonebs (6) Spinal cord injury at C1-C4 level Assessment & Plan: Very limited movement in all 4 extremities. Qualifiers: Qualified Codes: S14.101S - Unspecified injury at C1 level of cervical spinal cord, sequela (7) DVT prophylaxis Assessment & Plan: Enoxaparin Hospital Course Date of Admission: Feb 21, 2019 at 12:05 Admission Diagnosis : [facility] Date of [facility]: 02/23/19 Discharge Diagnosis: [ ] Hospital Course: [ ] Labs and Pending Lab Test: Laboratory Tests 02/22/19 20:20: Glucometer 114H 02/23/19 05:20: Sodium Level 138, Potassium Level 3.5L, Chloride Level 108H, Carbon Dioxide Level 21, Anion Gap 9, Blood Urea Nitrogen 3L, Creatinine 0.57L, Estimat Glomerular Filtration Rate > 60, BUN/Creatinine Ratio 5, Glucose Level 103, Calcium Level 8.6, Vancomycin Level Trough 19.0 02/23/19 05:50: White Blood Count 6.6, Red Blood Count 3.47L, Hemoglobin 9.8L, Hematocrit 31L, Mean Corpuscular Volume 88, Mean Corpuscular Hemoglobin 28, Mean Corpuscular Hemoglobin Concent 32, Red Cell Distribution Width 14.3, Platelet Count 313, Mean Platelet Volume 8.3, Neutrophils (%) (Auto) 54, Lymphocytes (%) (Auto) 32, Monocytes (%) (Auto) 12, Eosinophils (%) (Auto) 2, Basophils (%) (Auto) 0, Neutrophils # (Auto) 3.6, Lymphocytes # (Auto) 2.1, Monocytes # (Auto) 0.8, Eosinophils # (Auto) 0.1, Basophils # (Auto) 0.0 02/23/19 11:23: Glucometer 184H Microbiology 02/21/19 Blood Culture - Preliminary, Resulted No growth 02/21/19 MRSA Screen - Final, Complete MRSA not isolated 02/21/19 Urine Culture - Final, Complete NO GROWTH Home Meds Active Augmentin 875-125 Tablet (Amoxicillin/Potassium Clav) 1 Each Tablet 1 Each PO BID Levemir Flextouch (Insulin Detemir) 100 Unit/1 Ml Insuln.pen 15 Unit SQ BID Lotrimin AF (Miconazole Nitrate) 90 Gm Powder 0 Gm TOP BID Famotidine 20 Mg Tablet 20 Mg PO BID Montelukast Sodium 10 Mg Tablet 10 Mg PO HS Klor-Con 10 (Potassium Chloride) 10 Meq Tablet.er 10 Meq PO DAILY@0700 Dakin's (Sodium Hypochlorite) 473 Ml Solution 0 Ml TOP DAILY Citalopram HBr (Citalopram Hydrobromide) 10 Mg Tablet 10 Mg PO DAILY Tramadol HCl 50 Mg Tablet 50 Mg PO BID PRN Midodrine HCl 10 Mg Tablet 10 Mg PO TID Iprat-Albut 0.5-3(2.5) mg/3 ml (Ipratropium/Albuterol Sulfate) 3 Ml Ampul.neb 3 Ml INH RTBID Loratadine 10 Mg Tablet 10 Mg PO DAILY Reported Senna (Sennosides) 8.6 Mg Tablet 8.6 Mg PO BID PRN Baclofen 10 Mg Tablet 5 Mg PO TID Melatonin 5 Mg Tablet 10 Mg PO HS Enoxaparin Sodium 40 Mg/0.4 Ml Syringe 40 Mg SC 1400 FILLED #12 02-07-19 AND THEN THE REST ON 02-20-19 FOR #18 SYRINGES Quetiapine Fumarate 50 Mg Tablet 50 Mg PO HS Alprazolam 0.25 Mg Tablet 1 Mg PO BID TAKES 4 (0.25MG) TABLETS (UNTIL GONE THEN WILL GET NEW SCRIPT FOR 1MG TABS TWICE DAILY) Hydrocodone-Acetamin 5-325 mg (Hydrocodone/Acetaminophen) 1 Each Tablet 1 Tab PO Q6H PRN Discharge Diet: No Restrictions Activity as Tolerated: Yes Discharge Physical Examination Allergies: Coded Allergies: No Known Drug Allergies (Unverified , 02/15/19) General Appearance: No Apparent Distress, WD/WN Respiratory: Chest Non Tender, Lungs Clear, Normal Breath Sounds, No Accessory Muscle Use, No Respiratory Distress Cardiovascular: Regular Rate, Rhythm, No Edema, No Murmur Gastrointestinal: Normal Bowel Sounds, No Organomegaly, Non Tender, Soft; No Guarding, No Rebound Neurologic/Psychiatric: Alert, Oriented x3 Copy Copies To 1: Katerin Garcia APRN Discharge Summary Date of Admission Feb 21, 2019 at 12:05 Date of Discharge Feb 23, 2019 at 13:45 Discharge Date: Feb 23, 2019 Discharge Diagnosis Sacral decubitus ulcer, sepsis Clinical Quality Measures DVT/VTE Risk/Contraindication: Risk Factor Score Per Nursin RFS Level Per Nursing on Admit: 4+=Very High PRANAY WADE MD 02/23/192037: Discharge Summary Hospital Course Problems/Diagnosis: (1) Sepsis Assessment & Plan: Febrile, leukocytosis. No end organ dysfunction, BP improved with IVF alone. CXR without acute changes, UA unremarkable, flu swab neg, suspect possible source of infection is chronic sacral wound. Zosyn and Vancomycin. On midodrine at home, resume. 02/22 Improved, blood pressure stable. Transfer to floor. 02/23 Fever and leukocytosis resolved. BP improved. Home with oral antibiotic (augmentin), keep pressure off of ulcer as best as possible. Discussed option of rehab or home with home health as prior. Patients is hesitant to bring him back home at this time. Patient refused rehab or any outside facility. After discussion with with plan will be for him to go home with Home health for nursing care along with . Qualifiers: Qualified Codes: A41.9 - Sepsis, unspecified organism (2) Decubitus ulcer of coccygeal region, stage 4 Assessment & Plan: Wound care follow-up appointment with Dr. García for discussion of wound vac (3) Hyponatremia Resolution Date/Time: 02/22/19 @ 08:32 Assessment & Plan: normalized with overnight IVF (4) HLD (hyperlipidemia) (5) COPD (chronic obstructive pulmonary disease) Assessment & Plan: Duonebs (6) Spinal cord injury at C1-C4 level Assessment & Plan: Very limited movement in all 4 extremities. Qualifiers: Qualified Codes: S14.101S - Unspecified injury at C1 level of cervical spinal cord, sequela Assessment/Pt DC Instructions Follow up with Katerin Garcia on 02/26 at 11:40 am. Discharge Physical Examination Allergies: Coded Allergies: No Known Drug Allergies (Unverified , 02/15/19) Copy Copies To 1: Katerin Garcia APRN Supervisory-Addendum Brief Verification & Attestation Participated in pt care: history, MDM, physical Personally performed: exam, history, MDM Care discussed with: Medical Student Procedures: n/a Verification and Attestation of Medical Student E/M Service A medical student performed and documented this service in my presence. I reviewed and verified all information documented by the medical student and made modifications to such information, when appropriate. I personally performed the physical exam and medical decision making. Pranay Wade, Feb 23, 2019,20:38 ROMAIN EDWARDS,MED STUDENT Feb 23, 2019 14:29 PRANAY WADE MD Feb 23, 2019 20:38
== END 2019-02-23 13:45 | disposition home health service (06) ==
LOC: EDUNIT# 09:43 → ER 09:44 → ICU 12:05 → INTOOBSV 12:05 → 4TH 02-22 10:02
PROVIDERS: ADMIT Family Medicine; ATTEND Family Medicine
DX: A41.9 Sepsis, unspecified organism (principal); L89.154 Pressure ulcer of sacral region, stage 4; E87.1 Hypo-osmolality and hyponatremia; G82.52 Quadriplegia, C1-C4 incomplete; J44.9 Chronic obstructive pulmonary disease, unspecified; J30.2 Other seasonal allergic rhinitis; E11.40 Type 2 diabetes mellitus with diabetic neuropathy, unspecified; N31.9 Neuromuscular dysfunction of bladder, unspecified; E78.5 Hyperlipidemia, unspecified; R35.0 Frequency of micturition; K21.9 Gastro-esophageal reflux disease without esophagitis; M54.9 Dorsalgia, unspecified; G47.9 Sleep disorder, unspecified; F41.9 Anxiety disorder, unspecified; S14.101S Unspecified injury at C1 level of cervical spinal cord, sequela; W13 Fall from, out of or through building or structure; Z87.820 Personal history of traumatic brain injury; Z79.4 Long term (current) use of insulin; Z86.010 Personal history of colon polyps
CPT/HCPCS: 36415; 71045; 80048; 80053; 80202; 80306; 81000; 82728; 82962; 83540; 83605; 83735; 84100; 85025; 85610; 85730; 87040; 87081; 87088; 87804; 94760; 96361; 96365

== ENCOUNTER 2019-03-03 08:52 | Inpatient (IN) | payer MEDICAID ==
[~2019-03-03] VITALS: Ht 160 cm; Wt 56.8 kg
[~2019-03-03 08:52] MED LIST changes: +AMOX-358 PO; +MELA5TAB14 PO; +QUET50TA55 PO; +SENN-141 PO
[2019-03-03] MEDS ORDERED: NS IV 1000 ML 1,000 ML IV SCH (08:57)
[2019-03-03] MEDS ORDERED: ACETAMINOPHEN 500 MG TAB (TYLENOL) PO PRN ×2 (09:00→13:15)
[2019-03-03] MEDS ORDERED: CEFEPIME INJECTION 1,000 MG in WATER (STERILE) FOR INJECTION 10 ML IV ONE (09:00)
[2019-03-03 09:23] LABS: BASOPHILS % (AUTO) 0 % (0-10); EOSINOPHILS % (AUTO) 0 % (0-10); HEMATOCRIT 34 % (40-54); HEMOGLOBIN 11.1 G/DL (13.3-17.7); LYMPHOCYTES # (AUTO) 2.8 X 10^3 (1.0-4.0); LYMPHOCYTES % (AUTO) 24 % (12-44); MEAN CORPUSCULAR HEMOGLOBIN 28 PG (25-34); MEAN CORPUSCULAR HGB CONC 32 G/DL (32-36); MEAN CORPUSCULAR VOLUME 86 FL (80-99); MEAN PLATELET VOLUME 7.9 FL (7.4-10.4); MONOCYTES # (AUTO) 0.7 X 10^3 (0.0-1.0); MONOCYTES % (AUTO) 6 % (0-12); NEUTROPHILS # (AUTO) 7.9 X 10^3 (1.8-7.8); NEUTROPHILS % (AUTO) 69 % (42-75); PLATELET COUNT 415 10^3/uL (130-400); RED CELL DISTRIBUTION WIDTH 14.7 % (10.0-14.5); WHITE BLOOD COUNT 11.4 10^3/uL (4.3-11.0)
[2019-03-03 09:26] LABS: BILIRUBIN,URINE NEGATIVE (NEGATIVE); CLARITY,URINE CLEAR; COLOR,URINE YELLOW; GLUCOSE, URINE (UA) NEGATIVE (NEGATIVE); KETONES,URINE NEGATIVE (NEGATIVE); LEUKOCYTE ESTERASE ,URINE NEGATIVE (NEGATIVE); NITRITE,URINE NEGATIVE (NEGATIVE); PH,URINE 7 (5-9); PROTEIN,URINE NEGATIVE (NEGATIVE); UROBILINOGEN,URINE NORMAL (NORMAL)
[2019-03-03 09:34] LABS: INR 1.1 (0.8-1.4); PROTHROMBIN TIME PATIENT 14.3 SEC (12.2-14.7)
[2019-03-03 09:40] LABS: ALANINE AMINOTRANSFERASE 13 U/L (0-55); ALBUMIN 3.1 GM/DL (3.2-4.5); ALKALINE PHOSPHATASE 114 U/L (40-136); BILIRUBIN,TOTAL 0.3 MG/DL (0.1-1.0); BUN/CREATININE RATIO 10; CALCIUM 8.7 MG/DL (8.5-10.1); CARBON DIOXIDE 20 MMOL/L (21-32); CHLORIDE 98 MMOL/L (98-107); CREATININE SERUM 0.63 MG/DL (0.60-1.30); GFR ESTIMATED > 60; GLUCOSE 180 MG/DL (70-105); POTASSIUM 4.5 MMOL/L (3.6-5.0); SODIUM 130 MMOL/L (135-145); TOTAL PROTEIN 7.4 GM/DL (6.4-8.2)
--- NOTE | 2019-03-03 09:43 | Diagnostic Imaging Report ---
EXAMINATION: Chest 1 view HISTORY: Fever FINDINGS: Comparison is 02/22/2019. Plate fixation of multiple right rib fractures is again seen. The lungs are clear. No edema. No pneumonia. No pleural effusion. No pneumothorax. Heart is normal in size. IMPRESSION: 1. Clear lungs. Dictated by: Dictated on workstation # [id number]
[2019-03-03 09:46] LABS: BACTERIA,URINE TRACE /HPF
--- NOTE | 2019-03-03 10:22 | ED General ---
General Chief Complaint: Fever-Adult/Adol Stated Complaint: FEVER Nursing Triage Note: TO ED PER EMS WITH FEVER OF 102. PERRY IN PLACE ON ADMIT Nursing Sepsis Screen: No Definite Risk Source of Information: Patient (POOR HISTORIAN--APPEARS VERY SEDATE/DROWSY, AND SOMEWHAT CONFUSED--UNABLE TO PROVIDE ANY RELIABLE INFORMATION. NO FAMILY CAME WITH PT), EMS, Old Records History of Present Illness Date Seen by Provider: Mar 03, 2019 Time Seen by Provider: 08:58 Initial Comments PT ARRIVES VIA EMS FROM HOME, WHERE HE LIVES WITH HIS PT HAS QUADRIPLEGIA FROM A FALL IN NOVEMBER OF THIS YEAR--FELL 3 STORIES OFF A LADDER PT HAS INDWELLING PERRY CATHETER PT HAS A LARGE SACRAL / COCCYX DECUBITUS ULCER PT IS UNABLE TO PROVIDE ANY RELEVANT INFORMATION EMS WAS CALLED FOR PT WITH FEVER OF 102.5 NO OTHER INFORMATION IS OBTAINABLE PER OLD CHARTS, PT IS DIABETIC, AND HISTORICALLY HAS BEEN EXTREMELY NON- COMPLIANT IN ALL ASPECTS OF CARE PCP: [facility] Allergies and Home Medications Allergies Coded Allergies: No Known Drug Allergies (Unverified , 02/15/19) Home Medications Alprazolam 0.25 Mg Tablet, 1 MG PO BID, (Reported) TAKES 4 (0.25MG) TABLETS (UNTIL GONE THEN WILL GET NEW SCRIPT FOR 1MG TABS TWICE DAILY) Amoxicillin/Potassium Clav 1 Each Tablet, 1 EACH PO BID Prescribed by: PRANAY WADE on 02/23/19 1312 Baclofen 10 Mg Tablet, 5 MG PO TID, (Reported) Citalopram Hydrobromide 10 Mg Tablet, 10 MG PO DAILY Prescribed by: MARGUERITE GAN on 02/05/192036 Enoxaparin Sodium 40 Mg/0.4 Ml Syringe, 40 MG SC 1400, (Reported) FILLED #12 02-07-19 AND THEN THE REST ON 02-20-19 FOR #18 SYRINGES Famotidine 20 Mg Tablet, 20 MG PO BID Prescribed by: MARGUERITE GAN on 02/05/192036 Hydrocodone/Acetaminophen 1 Each Tablet, 1 TAB PO Q6H PRN for PAIN-MODERATE, (Reported) Insulin Detemir 100 Unit/1 Ml Insuln.pen, 15 UNIT SQ BID Prescribed by: MARGUERITE GAN on 02/05/192036 Ipratropium/Albuterol Sulfate 3 Ml Ampul.neb, 3 ML INH RTBID Prescribed by: MARGUERITE GAN on 02/05/192036 Loratadine 10 Mg Tablet, 10 MG PO DAILY Prescribed by: MARGUERITE GAN on 02/05/192036 Melatonin 5 Mg Tablet, 10 MG PO HS, (Reported) Miconazole Nitrate 90 Gm Powder, 0 GM TOP BID Prescribed by: MARGUERITE GAN on 02/05/192036 Midodrine HCl 10 Mg Tablet, 10 MG PO TID Prescribed by: MARGUERITE GAN on 02/05/192036 Montelukast Sodium 10 Mg Tablet, 10 MG PO HS Prescribed by: MARGUERITE GAN on 02/05/192036 Potassium Chloride 10 Meq Tablet.er, 10 MEQ PO DAILY@0700 Prescribed by: MARGUERITE GAN on 02/05/192036 Quetiapine Fumarate 50 Mg Tablet, 50 MG PO HS, (Reported) Sennosides 8.6 Mg Tablet, 8.6 MG PO BID PRN for CONSTIPATION-5TH LINE, (Rep orted) Sodium Hypochlorite 473 Ml Solution, 0 ML TOP DAILY Prescribed by: MARGUERITE GAN on 02/05/192036 Tramadol HCl 50 Mg Tablet, 50 MG PO BID PRN for PAIN-MODERATE Prescribed by: MARGUERITE GAN on 02/05/192036 Patient Home Medication List Home Medication List Reviewed: Yes Review of Systems Review of Systems Constitutional: fever, other (UNABLE TO OBTAIN ANY RELEVANT INFORMATION FROM PT) Past Vypxonp-Zaexip-Jbtaen Hx Past Med/Social Hx: Reviewed and Corrections made Patient Social History Alcohol Use: Past History (HISTORY OF ABUSE) Number of Drinks Today: HH Alcohol Beverage of Choice: Wine Recreational Drug Use: Yes (THC, + IV METHAMPHETAMINES, PCP, OPIATES, BENZO'S) Drug of Choice: THC, + IV METHAMPHETAMINES, PCP, OPIATES, BENZO'S Smoking Status: Current Everyday Smoker (> 1 PPD) Type Used: Cigarettes (> 1 PPD) 2nd Hand Smoke Exposure: Yes Recent Foreign Travel: No Contact w/Someone Who Travel: No Recent Infectious Disease Expo: No Recent Hopitalizations: Yes (SPINAL CORD INJURY AND AT FIVE POINTS 7-19 RECENT HOSPITALIZATION FOR SEPSIS) Immunizations Up To Date Tetanus Booster (TDap): Unknown PED Vaccines UTD: Yes Date of Pneumonia Vaccine: Sep 04, 2015 Date of Influenza Vaccine: Apr 05, 2017 Seasonal Allergies Seasonal Allergies: Yes (TALL GRASS, ANIMALS) Past Medical History Surgeries: Yes (HERNIA REPAIR X 3 WITH ABDOMINAL MESH; CYSTOSCOPIES AND 7 SURGERIES ON BLADDER/URETERS CHILD AND TEEN; DENTAL SURGERY; LEFT FOOT FX/ORIF; COLONOSCOPY/POLYPECTOMY/EGD; 11/2018--MULTIPLE SURGERIES AFTER FALLING OFF ROOF--RIGHT CHEST TUBE AND PLATING OF RIBS, TRACHEOSTOMY/REMOVAL; PEG TUBE PLACEMENT/REMOVAL; CERVICAL SPINE SURGERY--LAMINECTOMY C3-C7 AND C4-C5 AUTOGRAFT BONE, SCREWS AND RODS, DEBRIDEMENTS OF SACRAL DECUBITUS ULCER) Abdominal, Bladder Surgery, Orthopedic, Tracheostomy Respiratory: Yes (OCCASIONALLY USES INHALER DUE TO OUTSIDE ALLERGENS; FRACTURES OF RIGHT RIBS 1-10 DUE TO FALL 11/2018 WITH RIB PLATING--PNEUMOTHORAX/HEMOTHORAX AND PULMONARY CONTUSIONS AND WAS INTUBATED WITH LATER TRACHEOSTOMY/LATER REMOVED. ) COPD Currently Using CPAP: No Currently Using BIPAP: No Cardiac: No Neurological: Yes (CHRONIC PERIPHERAL NEUROPATHY IN FEET, PRIOR TO C-SPINE FX AND QUADRIPLEGIA 11/2018) Neuropathy, Spinal Cord Injury, Traumatic Brain Injury Reproductive Disorders: No Sexually Transmitted Disease: No Genitourinary: Yes (FREQUENT UTI'S; MULTIPLE BLADDER SURGERIES CHILD AND TEEN; NEUROGENIC BLADDER WITH INDWELLING PERRY CATHETER SINCE C-SPINE FX 11/2018) Bladder Infection, UTI-Chronic Gastrointestinal: Yes Gastroesophageal Reflux, Polyps Musculoskeletal: Yes (LEFT FOOT FX/ORIF; CHRONIC FOOT PAIN--NEUROPATHY--PRIOR TO C-SPINE FRACTURE AND QUADRIPLEGIA 11/2018; MULTIPLE FRACTURES 11/2018 AFTER FALLING 3 STORIES OFF A LADDER--RIGHT RIBS 1-10, RIGHT TRANSVERSE PROCESS FRACTURES, LEFT SCAPULAR FRACTURE, C-SPINE FRACTURES-S/P SURGERY) Chronic Back Pain, Fractures Endocrine: Yes (NON-COMPLIANCE) Diabetes, Insulin dep HEENT: Yes Cataract Cancer: No Psychosocial: Yes (POLYSUBSTANCE ABUSE) Sleep Difficulties, Anxiety Integumentary: Yes (SACRAL DECUBITUS ULCER) Blood Disorders: No Adverse Reaction/Blood Tranf: No Family Medical History Abdominal aortic aneurysm 03 MOTHER (DOESN'T KNOW MOM'S MEDICAL HISTORY) Cancer 03 FATHER (TESTICULAR) Family history: Diabetes mellitus 03 FATHER Family history: Hypertension 03 FATHER No Family History of: Family history: Alzheimer's disease Family history: Arthritis Family history: Breast disease Family history: Cardiovascular disease Family history: Gastrointestinal disease Family history: Thyroid disorder Hereditary disease History of - respiratory disease Myocardial infarction Parkinson's disease Seizure disorder Stroke AAA, Diabetes, Hypertension Physical Exam Vital Signs Vital Signs - First Documented 03/03/19 11:27 Temp 37.23553 Pulse 88 Resp 20 B/P (MAP) 132/78 (96) Pulse Ox 96 O2 Delivery Room Air O2 Flow Rate 2.40 Capillary Refill : Less Than 3 Seconds Height, Weight, BMI Height: 5'3.00" Weight: 150lbs. 0.3oz. [id number]; 22.00 BMI Method:Stated General Appearance: Other (VERY DROWSY--APPEARS OVER MEDICATED; DIRTY, MALODOROUS) HEENT: Other (VERY POOR DENTITION--MULTIPLE MISSING TEETH AND REMAINING TEETH WITH EXTENSIVE DECAY. ORAL MUCOSA DRY. ) Respiratory: Normal Breath Sounds, No Accessory Muscle Use, No Respiratory Distress, Decreased Breath Sounds (IN BASES) Cardiovascular: Regular Rate, Rhythm Gastrointestinal: Soft Back: Other (VERY LARGE DECUBITUS ULCER TO SACRUM/COCCYX AREA--PACKING IN PLACE. MODERATE AMOUNT OF SURROUNDING ERYTHEMA AND INDURATION. TO BOTH BUTTOCKS. ) Extremity: Normal Capillary Refill Neurologic/Psychiatric: Other (VERY DROWSY/SEMI-ALERT. OPENS EYES TO VOICE. SPEECH MUMBLED AND INCOHERENT AT TIMES, IS CLEAR AND APPEARS ORIENTED AT TIMES; PT WITH QUADRIPLEGIA) Skin: Warm/Dry, Pallor, Other (DECUBITUS ULCER NOTED ABOVE) Focused Exam Lactate Level 03/03/19 09:07: Lactic Acid Level 2.68*H 03/03/19 10:45: Lactic Acid Level 2.13*H 03/03/19 15:35: Lactic Acid Level 1.40 Lactic Acid Level Laboratory Tests Test 03/03/19 15:35 Lactic Acid Level 1.40 MMOL/L (0.50-2.00) Procedures/Interventions Date of ETT Placement: Dec 07, 2018 Progress/Results/Core Measures Suspected Sepsis Recent Fever Within 48 Hours: No Infection Criteria Present: None New/Unexplained Altered Menta: No Sepsis Screen: No Definite Risk SIRS Temperature: Pulse: Respiratory Rate: Laboratory Tests 03/03/19 09:07: White Blood Count 11.4H Blood Pressure / Mean: 03/03/19 09:07: Lactic Acid Level 2.68*H 03/03/19 10:45: Lactic Acid Level 2.13*H 03/03/19 15:35: Lactic Acid Level 1.40 Laboratory Tests 03/03/19 09:07: Creatinine 0.63, INR Comment 1.1, Platelet Count 415H, Total Bilirubin 0.3 Results/Orders Lab Results Laboratory Tests Test 03/03/19 09:07 03/03/19 10:45 03/03/19 12:55 03/03/19 14:43 Range/Units White Blood Count 11.4 H 4.3-11.0 10^3/uL Red Blood Count 3.99 L 4.35-5.85 10^6/uL Hemoglobin 11.1 L 13.3-17.7 G/DL Hematocrit 34 L 40-54 % Mean Corpuscular Volume 86 80-99 FL Mean Corpuscular Hemoglobin 28 25-34 PG Mean Corpuscular Hemoglobin Concent 32 32-36 G/DL Red Cell Distribution Width 14.7 H 10.0-14.5 % Platelet Count 415 H 130-400 10^3/uL Mean Platelet Volume 7.9 7.4-10.4 FL Neutrophils (%) (Auto) 69 42-75 % Lymphocytes (%) (Auto) 24 12-44 % Monocytes (%) (Auto) 6 0-12 % Eosinophils (%) (Auto) 0 0-10 % Basophils (%) (Auto) 0 0-10 % Neutrophils # (Auto) 7.9 H 1.8-7.8 X 10^3 Lymphocytes # (Auto) 2.8 1.0-4.0 X 10^3 Monocytes # (Auto) 0.7 0.0-1.0 X 10^3 Eosinophils # (Auto) 0.0 0.0-0.3 10^3/uL Basophils # (Auto) 0.0 0.0-0.1 10^3/uL Prothrombin Time 14.3 12.2-14.7 SEC INR Comment 1.1 0.8-1.4 Activated Partial Thromboplast Time 35 24-35 SEC Urine Color YELLOW Urine Clarity CLEAR Urine pH 7 5-9 Urine Specific [place] 1.005 L 1.016-1.022 Urine Protein NEGATIVE NEGATIVE Urine Glucose (UA) NEGATIVE NEGATIVE Urine Ketones NEGATIVE NEGATIVE Urine Nitrite NEGATIVE NEGATIVE Urine Bilirubin NEGATIVE NEGATIVE Urine Urobilinogen NORMAL NORMAL MG/DL Urine Leukocyte Esterase NEGATIVE NEGATIVE Urine RBC (Auto) NEGATIVE NEGATIVE Urine RBC NONE /HPF Urine WBC NONE /HPF Urine Crystals NONE /LPF Urine Bacteria TRACE /HPF Urine Casts NONE /LPF Urine Mucus NEGATIVE /LPF Urine Culture Indicated NO Sodium Level 130 L 135-145 MMOL/L Potassium Level 4.5 3.6-5.0 MMOL/L Chloride Level 98 98-107 MMOL/L Carbon Dioxide Level 20 L 21-32 MMOL/L Anion Gap 12 5-14 MMOL/L Blood Urea Nitrogen 6 L 7-18 MG/DL Creatinine 0.63 0.60-1.30 MG/DL Estimat Glomerular Filtration Rate > 60 BUN/Creatinine Ratio 10 Glucose Level 180 H 70-105 MG/DL Lactic Acid Level 2.68 *H 2.13 *H 0.50-2.00 MMOL/L Calcium Level 8.7 8.5-10.1 MG/DL Corrected Calcium 9.4 8.5-10.1 MG/DL Total Bilirubin 0.3 0.1-1.0 MG/DL Aspartate Amino Transf (AST/SGOT) 24 5-34 U/L Alanine Aminotransferase (ALT/SGPT) 13 0-55 U/L Alkaline Phosphatase 114 40-136 U/L Total Protein 7.4 6.4-8.2 GM/DL Albumin 3.1 L 3.2-4.5 GM/DL Serum Alcohol < 10 <10 MG/DL Urine Opiates Screen POSITIVE H NEGATIVE Urine Oxycodone Screen NEGATIVE NEGATIVE Urine Methadone Screen NEGATIVE NEGATIVE Urine Propoxyphene Screen NEGATIVE NEGATIVE Urine Barbiturates Screen NEGATIVE NEGATIVE Ur Tricyclic Antidepressants Screen NEGATIVE NEGATIVE Urine Phencyclidine Screen NEGATIVE NEGATIVE Urine Amphetamines Screen NEGATIVE NEGATIVE Urine Methamphetamines Screen NEGATIVE NEGATIVE Urine Benzodiazepines Screen POSITIVE H NEGATIVE Urine Cocaine Screen NEGATIVE NEGATIVE Urine Cannabinoids Screen POSITIVE H NEGATIVE Blood Gas Puncture Site RT BRACH Blood Gas Patient Temperature 36.4 Arterial Blood pH 7.40 7.37-7.43 Arterial Blood Partial Pressure CO2 39 35-45 MMHG Arterial Blood Partial Pressure O2 98 H 79-93 MMHG Arterial Blood HCO3 24 23-27 MMOL/L Arterial Blood Total CO2 24.9 21.0-31.0 MMOL/L Arterial Blood Oxygen Saturation 98 94-100 % Arterial Blood Base Excess -0.6 -2.5-2.5 MMOL/L Jeremiah Test YES-POS Blood Gas Ventilator Setting NO Blood Gas Inspired Oxygen 2 L Test 03/03/19 15:35 03/03/19 15:36 Range/Units Lactic Acid Level 1.40 0.50-2.00 MMOL/L Glucometer 180 H 70-110 MG/DL Micro Results Microbiology 03/03/19 Influenza Types A,B Antigen (CITLALY) - Final, Complete My Orders Orders - ARLIN DOWD DO Cbc With Automated Diff (03/03/19 08:57) Comprehensive Metabolic Panel (03/03/19 08:57) Blood Culture (03/03/19 08:57) Sputum Culture (03/03/19 08:57) Urinalysis (03/03/19 08:57) Urine Culture (03/03/19 08:57) Protime With Inr (03/03/19 08:57) Partial Thromboplastin Time (03/03/19 08:57) Chest 1 View, Ap/Pa Only (03/03/19 08:57) Ed Iv/Invasive Line Start (03/03/19 08:57) Ed Iv/Invasive Line Start (03/03/19 08:57) Ekg Tracing (03/03/19 08:57) Vital Signs Adult Sepsis Patie Q15M (03/03/19 08:57) O2 (03/03/19 08:57) Remove Rings In Anticipation O (03/03/19 08:57) Lactic Acid Analyzer (03/03/19 08:57) Influenza A And B Antigens (03/03/19 08:57) Ns Iv 1000 Ml (Sodium Chloride 0.9%) (03/03/19 08:57) Cefepime Injection (Maxipime Injection) (03/03/19 09:00) Piperacillin Sodium/Tazobactam (Zosyn Vi (03/03/19 11:00) Wound Culture (03/03/19 10:46) Ct Pelvis W (03/03/19 10:46) Iohexol Injection (Omnipaque 350 Mg/Ml 1 (03/03/19 11:00) Received Contrast (Hold Metformin- Contr (03/03/19 11:00) Sodium Chloride Flush (Catheter Flush Sy (03/03/19 11:00) Ns (Ivpb) (Sodium Chloride 0.9% Ivpb Bag (03/03/19 11:00) Alcohol (03/03/19 12:35) Drug Screen Stat (Urine) (03/03/19 12:35) Medications Given in ED Current Medications Medications Dose Ordered Sig/Leandra Route Start Time Stop Time Status Last Admin Dose Admin Cefepime HCl 1000 mg/Sterile Water 10 ml @ 200 mls/hr ONCE ONCE IV 03/03/19 09:00 03/03/19 09:02 DC 03/03/19 10:11 200 MLS/HR Vital Signs/I&O 03/03/19 03/03/19 03/03/19 03/03/19 09:01 11:27 11:27 11:53 Temp 37.64871 37.3 Pulse 88 77 Resp 20 18 B/P (MAP) 132/78 (96) 137/73 Pulse Ox 96 90 100 O2 Delivery Room Air Nasal Cannula Nasal Cannula O2 Flow Rate 2.40 2.00 03/03/19 03/03/19 12:29 17:26 Temp 36.5 Pulse 77 Resp 20 B/P (MAP) 93/59 Pulse Ox 99 O2 Delivery Nasal Cannula Nasal Cannula O2 Flow Rate 2.00 2.00 Capillary Refill : Less Than 3 Seconds Progress Note : Progress Note NO DETERIORATION IN PT'S CONDITION DURING ER STAY NOR ANY FAMILY CAME TO ER OR CALLED, DURING ER STAY ECG Initial ECG Impression Date: Mar 03, 2019 Initial ECG Impression Time: 09:07 Initial ECG Rate: 93 Initial ECG Rhythm: Normal Sinus Diagnostic Imaging Comments CXR--NO ACUTE PROCESS, HARDWARE TO PREVIOUS RIB FRACTURES IS STABLE--PER RADIOLOGIST REPORT AT 1018 CT PELVIS--SACRAL ULCER, EXTENDING TO SACRUM, WITH PERISACRAL EDEMA, SUSPICIOUS FOR OSTEOMYELITIS, PER RADIOLOGIST REPORT AT 1134 Reviewed: Reviewed by Me Departure Communication (Admissions) 1040--SPOKE WITH DR. PANIAGUA, HOSPITALIST, ACCEPTS PT FOR ADMIT. WOULD LIKE CT DONE AND SURGERY CONSULTED 1045--SPOKE WITH DR. SANFORD, SURGEON, HE IS FAMILIAR WITH PT. Impression Primary Impression: Sepsis Additional Impressions: Decubitus ulcer of coccygeal region, stage 4 Quadriplegia Neurogenic bladder Neurogenic bowel Fecal incontinence Marijuana use History of illicit drug use CERVICAL SPINE FRACTURES WITH QUADRIPLEGIA Disposition: ADMITTED INPATIENT Condition: Stable Admissions Decision to Admit Reason: Admit from ER (General) Decision to Admit/Date: Mar 03, 2019 Time/Decision to Admit Time: 10:40 Departure-Patient Inst. Referrals: [facility] (PCP/Family) Primary Care Physician ARLIN DOWD DO Mar 03, 2019 10:22
[2019-03-03] MEDS ORDERED: NS 100 ML (IVPB) BAG IV ONE (11:00)
[2019-03-03] MEDS ORDERED: CATHETER FLUSH 10 ML SYR IV PRN (11:00)
[2019-03-03] MEDS ORDERED: PIPERACILLIN SODIUM/TAZOBACTAM 4.5 GM in NS (IVPB) 100 ML IV ONE (11:00)
[2019-03-03] MEDS ORDERED: IOHEXOL 350 MG/ML 100 ML (OMNIPAQUE 350) VIAL IV ONE (11:00)
[2019-03-03] MEDS ORDERED: HOLD METFORMIN - RECEIVED CONTRAST 20 ML VIAL IV SCH (11:00)
[2019-03-03] MEDS ORDERED: VANCOMYCIN INJECTION 1,000 MG in NS (IVPB) 250 ML IV ONE (11:00)
--- NOTE | 2019-03-03 11:01 | NUR ---
WOUND CULTURED AND TEGADERM PLACED
--- NOTE | 2019-03-03 11:03 | NUR ---
Dov cali in ED - 03/03/19 at 1104 by [id number] recieved RN report from marlo at this time.
--- NOTE | 2019-03-03 11:04 | NUR ---
received RN report from marlo at this time.
[2019-03-03 11:27] VITALS: BP 132/78
--- NOTE | 2019-03-03 11:32 | Diagnostic Imaging Report ---
PROCEDURE: CT pelvis with contrast. TECHNIQUE: Oral and intravenous contrast were administered with pelvic CT performed. Auto Exposure Controls were utilized during the CT exam to meet ALARA standards for radiation dose reduction. INDICATION: Osteomyelitis. FINDINGS: Comparison 12/07/2018. There is a wound over the distal sacrum and coccyx. This is new from prior exam. The wound abuts the bone. No discrete erosion is seen. There is no dilated bowel in the pelvis. Urinary bladder is partially decompressed by a Zamarripa catheter. There has been a hernia repair in the right pelvis. There is presacral edema. Abdominal aorta and iliac vessels are normal in caliber. No free air is seen. There is no fracture. IMPRESSION: 1. Sacral wound extending to abut the sacrum. While no discrete erosions are seen, the presence of a wound to the level of the bone is highly indicative of osteomyelitis. 2. Presacral edema is also concerning for inflammation related to osteomyelitis of the sacrum. Dictated by: Dictated on workstation # [id number]
[2019-03-03 12:29] VITALS: BP 93/59
[2019-03-03] MEDS ORDERED: D5 1/2 NS 1000 ML IV SOLUTION 1,000 ML IV ONE (12:30)
--- NOTE | 2019-03-03 12:46 | NUR ---
VIRGINIA LOO admitted to room 427-1, with an admitting diagnosis of wound, on 03/03/19 from ed via stretcher, accompanied by staff.VIRGINIA LOO introduced to surroundings, call light, bed controls, phone, TV, temperature control, lights, meal times, smoking policy, visitor policy, side rail policy, bathrooms and showers. Patient Rights given to patient in the handbook. VIRGINIA LOO verbalizes understanding that [facility] is not responsible for the loss or damage to any personal effects or valuables that are kept in the patients posession during their hospitalization. The following Patient Care Plans and discharge were discussed with the patient. VIRGINIA LOO verbalizes understanding of Interdisciplinary Patient Education. Patient and family were informed about the Rapid Response Team and its purpose.
[2019-03-03] MEDS ORDERED: VANCOMYCIN 1250 MG/NS 250 ML IVPB IV NR ×2 (13:10)
--- NOTE | 2019-03-03 13:18 | NUR ---
VANCOMYCIN DOSING SCR 0.63; CRCL ~ 104; BOLUS VANC 20 MG/KG X 56 KG ~ 1250 MG THEN VANC 15 MG/KG ~ 750 MG Q8H (BASED OFF DOSING/TROUGH FROM EARLIER THIS MONTH) CHECK TROUGH LEVEL 03/04 AT 1300 HOLD DOSE AND CONTACT PHARMACY IF LEVEL IS GREATER THAN 20
--- NOTE | 2019-03-03 13:20 | Consultation - Surgery ---
SELIN ARREGUIN [facility] / [facility] 03/03/19 1320: History of Present Illness History of Present Illness Patient Consulted On(harinder/time) 03/03/19 13:19 Date Seen by Provider: Mar 03, 2019 Time Seen by Provider: 13:19 History of Present Illness Surgical consult requested by Dr. Gaines for decubitus ulcer. Patient was brought by EMS to ED with fever of 102. Patient is responsive to stimuli but unable to respond to questions and there is no family present to provide history. Patient has chronic decubitus ulcer in the sacrum with some eschar. CT of pelvis was indicative of osteomyelitis. Allergies and Home Medications Allergies Coded Allergies: No Known Drug Allergies (Unverified , 02/15/19) Home Medications Alprazolam 0.25 Mg Tablet, 1 MG PO BID, (Reported) TAKES 4 (0.25MG) TABLETS (UNTIL GONE THEN WILL GET NEW SCRIPT FOR 1MG TABS TWICE DAILY) Amoxicillin/Potassium Clav 1 Each Tablet, 1 EACH PO BID Prescribed by: PRANAY WADE on 02/23/19 1312 Baclofen 10 Mg Tablet, 5 MG PO TID, (Reported) Citalopram Hydrobromide 10 Mg Tablet, 10 MG PO DAILY Prescribed by: MARGUERITE GAN on 02/05/192036 Enoxaparin Sodium 40 Mg/0.4 Ml Syringe, 40 MG SC 1400, (Reported) FILLED #12 02-07-19 AND THEN THE REST ON 02-20-19 FOR #18 SYRINGES Famotidine 20 Mg Tablet, 20 MG PO BID Prescribed by: MARGUERITE GAN on 02/05/192036 Hydrocodone/Acetaminophen 1 Each Tablet, 1 TAB PO Q6H PRN for PAIN-MODERATE, (Reported) Insulin Detemir 100 Unit/1 Ml Insuln.pen, 15 UNIT SQ BID Prescribed by: MARGUERITE GAN on 02/05/192036 Ipratropium/Albuterol Sulfate 3 Ml Ampul.neb, 3 ML INH RTBID Prescribed by: MARGUERITE GAN on 02/05/192036 Loratadine 10 Mg Tablet, 10 MG PO DAILY Prescribed by: MARGUERITE GAN on 02/05/192036 Melatonin 5 Mg Tablet, 10 MG PO HS, (Reported) Miconazole Nitrate 90 Gm Powder, 0 GM TOP BID Prescribed by: MARGUERITE GAN on 02/05/192036 Midodrine HCl 10 Mg Tablet, 10 MG PO TID Prescribed by: MARGUERITE GAN on 02/05/192036 Montelukast Sodium 10 Mg Tablet, 10 MG PO HS Prescribed by: MARGUERITE GAN on 02/05/192036 Potassium Chloride 10 Meq Tablet.er, 10 MEQ PO DAILY@0700 Prescribed by: MARGUERITE GAN on 02/05/192036 Quetiapine Fumarate 50 Mg Tablet, 50 MG PO HS, (Reported) Sennosides 8.6 Mg Tablet, 8.6 MG PO BID PRN for CONSTIPATION-5TH LINE, (Reported) Sodium Hypochlorite 473 Ml Solution, 0 ML TOP DAILY Prescribed by: MARGUERITE GAN on 02/05/192036 Tramadol HCl 50 Mg Tablet, 50 MG PO BID PRN for PAIN-MODERATE Prescribed by: MARGUERITE GAN on 02/05/192036 Past Svpxezp-Phcnfk-Lcmpjg Hx Patient Social History Alcohol Use: Denies Use Number of Drinks Today: Recreational Drug Use: Yes (10 YEARS AGO) Smoking Status: Former Smoker Type Used: Cigarettes 2nd Hand Smoke Exposure: Yes Recent Foreign Travel: No Contact w/Someone Who Travel: No Recent Infectious Disease Expo: No Recent Hopitalizations: Yes (SPINAL CORD INJURY AND AT [place] 7-19 RECENT HOSPITALIZATION FOR SEPSIS) Immunizations Up To Date Tetanus Booster (TDap): Unknown PED Vaccines UTD: Yes Date of Pneumonia Vaccine: Sep 04, 2015 Date of Influenza Vaccine: Apr 05, 2017 Seasonal Allergies Seasonal Allergies: Yes (TALL GRASS, ANIMALS) Surgeries History of Surgeries: Yes (hernia repair x 2,2 teeth removed,bladder and kidney problems in childhood) Surgeries: Abdominal, Orthopedic Respiratory History of Respiratory Disorde: Yes (OCCASIONALLY USES INHALER DUE TO OUTSIDE ALLERGENS) Respiratory Disorders: COPD Cardiovascular History of Cardiac Disorders: No Neurological History of Neurological Disord: Yes Neurological Disorders: Neuropathy, Spinal Cord Injury, Traumatic Brain Injury Reproductive System Hx Reproductive Disorders: No Sexually Transmitted Disease: No Genitourinary History of Genitourinary Disor: Yes (URINARY FREQUENCY) Genitourinary Disorders: Bladder Infection Gastrointestinal History of Gastrointestinal Di: Yes Gastrointestinal Disorders: Gastroesophageal Reflux, Polyps Musculoskeletal History of Musculoskeletal Dis: Yes (LEFT FOOT FX/ORIF; CHRONIC FOOT PAIN--NEUROPATHY) Musculoskeletal Disorders: Chronic Back Pain, Fractures Endocrine History of Endocrine Disorders: Yes Endocrine Disorders: Diabetes, Insulin dep HEENT History of HEENT Disorders: Yes HEENT Disorders: Cataract Cancer History of Cancer: No Psychosocial History of Psychiatric Problem: Yes Behavioral Health Disorders: Sleep Difficulties, Anxiety Integumentary History of Skin or Integumenta: Yes (sacral decubitus ulcer) Blood Transfusions History of Blood Disorders: No Adverse Reaction to a Blood Tr: No Family Medical History Significant Family History: AAA, Diabetes, Hypertension Family Medial History: Abdominal aortic aneurysm 03 MOTHER (DOESN'T KNOW MOM'S MEDICAL HISTORY) Cancer 03 FATHER (TESTICULAR) Family history: Diabetes mellitus 03 FATHER Family history: Hypertension 03 FATHER No Family History of: Family history: Alzheimer's disease Family history: Arthritis Family history: Breast disease Family history: Cardiovascular disease Family history: Gastrointestinal disease Family history: Thyroid disorder Hereditary disease History of - respiratory disease Myocardial infarction Parkinson's disease Seizure disorder Stroke Physical Exam-General Problems Physical Exam Vital Signs Vital Signs - First Documented 03/03/19 11:27 Temp 37.34422 Pulse 88 Resp 20 B/P (MAP) 132/78 (96) Pulse Ox 96 O2 Delivery Room Air O2 Flow Rate 2.40 Capillary Refill : Less Than 3 Seconds Data Review Labs Laboratory Tests 03/03/19 09:07: White Blood Count 11.4H, Red Blood Count 3.99L, Hemoglobin 11.1L, Hematocrit 34L , Mean Corpuscular Volume 86, Mean Corpuscular Hemoglobin 28, Mean Corpuscular Hemoglobin Concent 32, Red Cell Distribution Width 14.7H, Platelet Count 415H, Mean Platelet Volume 7.9, Neutrophils (%) (Auto) 69, Lymphocytes (%) (Auto) 24, Monocytes (%) (Auto) 6, Eosinophils (%) (Auto) 0, Basophils (%) (Auto) 0, Neutrophils # (Auto) 7.9H, Lymphocytes # (Auto) 2.8, Monocytes # (Auto) 0.7, Eosinophils # (Auto) 0.0, Basophils # (Auto) 0.0, Prothrombin Time 14.3, INR Comment 1.1, Activated Partial Thromboplast Time 35, Urine Color YELLOW, Urine Clarity CLEAR, Urine pH 7, Urine Specific [place] 1.005L, Urine Protein NEGATIVE, Urine Glucose (UA) NEGATIVE, Urine Ketones NEGATIVE, Urine Nitrite NEGATIVE, Urine Bilirubin NEGATIVE, Urine Urobilinogen NORMAL, Urine Leukocyte Esterase NEGATIVE, Urine RBC (Auto) NEGATIVE, Urine RBC NONE, Urine WBC NONE, Urine Crystals NONE, Urine Bacteria TRACE, Urine Casts NONE, Urine Mucus NEGATIVE, Urine Culture Indicated NO, Sodium Level 130L, Potassium Level 4.5, Chloride Level 98, Carbon Dioxide Level 20L, Anion Gap 12, Blood Urea Nitrogen 6L, Creatinine 0.63, Estimat Glomerular Filtration Rate > 60, BUN/Creatinine Ratio 10, Glucose Level 180H, Lactic Acid Level 2.68*H, Calcium Level 8.7, Corrected Calcium 9.4, Total Bilirubin 0.3, Aspartate Amino Transf (AST/SGOT) 24, Alanine Aminotransferase (ALT/SGPT) 13, Alkaline Phosphatase 114, Total Protein 7.4, Albumin 3.1L, Serum Alcohol < 10 03/03/19 10:45: Lactic Acid Level 2.13*H 03/03/19 12:35: Microbiology 03/03/19 Influenza Types A,B Antigen (CITLALY) - Final, Complete Assessment/Plan Assessment/Plan Assessment/Plan Decubitus ulcer in sacrum wound with slight eschar Elevated lactic acid Quadriplegia Fever - reported 102.5F from home Osteomyelitis Reposition patient to relieve pressure wound care - may need debridement in near future continue abx await cultures and drug screen IV hydration continue medical management NIKOLAY SANFORD DO 03/03/19 1442: History of Present Illness History of Present Illness History of Present Illness Patient with quadriplegia and recent significant medical issues. Patient with fever at home of 102 reported. Was brought by ems to er for further evaluation. Patient with decubitus ulcer that has had multiple debridement and treatments, without much improvement. Patient unable to provide any history and no family present at this time. Had ct scan suggestive of osteo at sacrum and normal chest x ray. Allergies and Home Medications Allergies Coded Allergies: No Known Drug Allergies (Unverified , 02/15/19) Home Medications Alprazolam 0.25 Mg Tablet, 1 MG PO BID, (Reported) TAKES 4 (0.25MG) TABLETS (UNTIL GONE THEN WILL GET NEW SCRIPT FOR 1MG TABS TWICE DAILY) Amoxicillin/Potassium Clav 1 Each Tablet, 1 EACH PO BID Prescribed by: PRANAY WADE on 02/23/19 1312 Baclofen 10 Mg Tablet, 5 MG PO TID, (Reported) Citalopram Hydrobromide 10 Mg Tablet, 10 MG PO DAILY Prescribed by: MARGUERITE GAN on 02/05/192036 Enoxaparin Sodium 40 Mg/0.4 Ml Syringe, 40 MG SC 1400, (Reported) FILLED #12 02-07-19 AND THEN THE REST ON 02-20-19 FOR #18 SYRINGES Famotidine 20 Mg Tablet, 20 MG PO BID Prescribed by: MARGUERITE GAN on 02/05/192036 Hydrocodone/Acetaminophen 1 Each Tablet, 1 TAB PO Q6H PRN for PAIN-MODERATE, (Reported) Insulin Detemir 100 Unit/1 Ml Insuln.pen, 15 UNIT SQ BID Prescribed by: MARGUERITE GAN on 02/05/192036 Ipratropium/Albuterol Sulfate 3 Ml Ampul.neb, 3 ML INH RTBID Prescribed by: MARGUERITE GAN on 02/05/192036 Loratadine 10 Mg Tablet, 10 MG PO DAILY Prescribed by: MARGUERITE GAN on 02/05/192036 Melatonin 5 Mg Tablet, 10 MG PO HS, (Reported) Miconazole Nitrate 90 Gm Powder, 0 GM TOP BID Prescribed by: MARGUERITE GAN on 02/05/192036 Midodrine HCl 10 Mg Tablet, 10 MG PO TID Prescribed by: MARGUERITE GAN on 02/05/192036 Montelukast Sodium 10 Mg Tablet, 10 MG PO HS Prescribed by: MARGUERITE GAN on 02/05/192036 Potassium Chloride 10 Meq Tablet.er, 10 MEQ PO DAILY@0700 Prescribed by: MARGUERITE GAN on 02/05/192036 Quetiapine Fumarate 50 Mg Tablet, 50 MG PO HS, (Reported) Sennosides 8.6 Mg Tablet, 8.6 MG PO BID PRN for CONSTIPATION-5TH LINE, (Re ported) Sodium Hypochlorite 473 Ml Solution, 0 ML TOP DAILY Prescribed by: MARGUERITE GAN on 02/05/192036 Tramadol HCl 50 Mg Tablet, 50 MG PO BID PRN for PAIN-MODERATE Prescribed by: MARGUERITE GAN on 02/05/192036 Patient Home Medication List Home Medication List Reviewed: Yes Past Qkcentp-Jxddjc-Zpfflj Hx Patient Social History Alcohol Use: Denies Use Recreational Drug Use: Yes (10 YEARS AGO) Type Used: Cigarettes Surgeries History of Surgeries: Yes (hernia repair x 2,2 teeth removed,bladder and kidney problems in childhood, laminectomy, tracheostomy, and gastrostomy tube, rib plating) Surgeries: Abdominal, Orthopedic Respiratory Respiratory Disorders: COPD Cardiovascular History of Cardiac Disorders: No Neurological History of Neurological Disord: Yes Neurological Disorders: Neuropathy, Spinal Cord Injury, Traumatic Brain Injury Reproductive System Hx Reproductive Disorders: No Sexually Transmitted Disease: No Genitourinary History of Genitourinary Disor: Yes (URINARY FREQUENCY) Genitourinary Disorders: Bladder Infection Gastrointestinal History of Gastrointestinal Di: Yes Gastrointestinal Disorders: Gastroesophageal Reflux Musculoskeletal History of Musculoskeletal Dis: Yes (LEFT FOOT FX/ORIF; CHRONIC FOOT PAIN--NEUROPATHY) Musculoskeletal Disorders: Chronic Back Pain, Fractures Endocrine Endocrine Disorders: Diabetes, Insulin dep HEENT HEENT Disorders: Cataract Cancer History of Cancer: No Psychosocial Behavioral Health Disorders: Sleep Difficulties, Anxiety Integumentary History of Skin or Integumenta: Yes (sacral decubitus ulcer) Family Medical History Significant Family History: AAA, Diabetes, Hypertension Family Medial History: Abdominal aortic aneurysm 03 MOTHER (DOESN'T KNOW MOM'S MEDICAL HISTORY) Cancer 03 FATHER (TESTICULAR) Family history: Diabetes mellitus 03 FATHER Family history: Hypertension 03 FATHER No Family History of: Family history: Alzheimer's disease Family history: Arthritis Family history: Breast disease Family history: Cardiovascular disease Family history: Gastrointestinal disease Family history: Thyroid disorder Hereditary disease History of - respiratory disease Myocardial infarction Parkinson's disease Seizure disorder Stroke Review of Systems-General ROS-Unable to Obtain: unable to provide due to condition Physical Exam-General Problems Physical Exam General Appearance: no apparent distress (opens eyes to stimulus and voice) HEENT: normal ENT inspection Neck: supple Respiratory: chest non-tender, no respiratory distress, no accessory muscle use Cardiovascular: regular rate, rhythm Gastrointestinal: non tender, soft Genital/Rectal: other (ducubitus ulcer, down to presacral fascia, slight kumari eschar) Neurologic/Psychiatric: No alert (does open eyes to voice and stimulus) Skin: other (warm dry, slight erythema around decub) Lymphatic: no adenopathy Assessment/Plan Assessment/Plan Assessment/Plan Decubitus ulcer in sacrum wound with slight eschar Elevated lactic acid Quadriplegia Fever - reported 102.5F from home Osteomyelitis sacrum medical management, no surgical intervention at this time may need debridement short term wound care daily and prn frequent repositioning to offset pressure no family present at this time will follow Supervisory-Addendum Brief Verification & Attestation Participated in pt care: history, MDM, physical Personally performed: exam, history, MDM, supervision of care Care discussed with: Medical Student Procedures: n/a Results interpretation: Verified all documentation Verification and Attestation of Medical Student E/M Service A medical student performed and documented this service in my presence. I reviewed and verified all information documented by the medical student and made modifications to such information, when appropriate. I personally performed the physical exam and medical decision making. Nikolay Sanford, Mar 03, 2019,14:48 SELIN ARREGUIN [facility] Mar 03, 2019 13:20 NIKOLAY SANFORD DO Mar 03, 2019 14:42
[2019-03-03 13:21] LABS: AMPHETAMINE SCREEN, URINE NEGATIVE (NEGATIVE); BARBITURATE SCREEN URINE NEGATIVE (NEGATIVE); BENZODIAZEPINES SCREEN URINE POSITIVE (NEGATIVE); CANNABINOID SCREEN, URINE POSITIVE (NEGATIVE); COCAINE SCREEN URINE NEGATIVE (NEGATIVE); METHADONE STAT NEGATIVE (NEGATIVE); METHAMPHETAMINE SCREEN URINE S NEGATIVE (NEGATIVE); OPIATE SCREEN URINE POSITIVE (NEGATIVE); OXYCODONE STAT NEGATIVE (NEGATIVE); PROPOXYPHENE STAT NEGATIVE (NEGATIVE); TRICYCLIC ANTIDEPRESSANTS SCRE NEGATIVE (NEGATIVE)
[2019-03-03] MEDS: D5 1/2 NS 1000 ML IV SOLUTION 1,000 ML IV SCH ×2 (13:43→18:35)
[2019-03-03] MEDS ORDERED: NALOXONE 0.4 MG/ML 1 ML (NARCAN) VIAL ONE (13:57)
--- NOTE | 2019-03-03 14:08 | NUR ---
LETHARGIC. DR. PANIAGUA HERE. NARCAN 0.4 MG GIVEN IV PER DR. PANIAGUA ORDER'S. PT. CONT. TO BE LETHARGIC.
[2019-03-03] MEDS ORDERED: NALOXONE 0.4 MG/ML 1 ML (NARCAN) VIAL IV ONE (14:15)
--- NOTE | 2019-03-03 14:45 | History & Physical-Hospitalist ---
History of Present Illness HPI/Chief Complaint This is an unfortunate 53-year-old white male with a partial C3 quadriplegia from a fall. The patient is brought to the emergency room with a fever and hypersomnolence. Patient is febrile with an elevated white count. CT shows probable osteomyelitis secondary to a decubitus ulcer on the sacrum. He is being admitted with presumed sepsis from the sacral ulcer and osteomyelitis. Patient is super somnolent and unable to give me any additional history. is not present. He has been given Narcan without awakening. ABG is pending Source: old records Exam Limitations: clinical condition Date Seen 03/03/19 Time Seen by a Provider: 14:15 Attending Physician Isabelle Paniagua MD [facility] Referring Physician Date of Admission Mar 03, 2019 at 10:45 Home Medications & Allergies Home Medications Reviewed patient Home Medication Reconciliation performed by pharmacy medication reconciliations ekg technician and/or nursing. Patients Allergies have been reviewed. Allergies Allergies Coded Allergies No Known Drug Allergies (Unverified02/15/19) Past Doqwxtx-Kzvvlc-Mtlvff Hx Past Med/Social Hx: Reviewed Nursing Past Med/Soc Hx Patient Social History Marrital Status: Employed/Student: unemployed Alcohol Use: Denies Use Number of Drinks Today: Alcohol Beverage of Choice: Wine Recreational Drug Use: Yes (10 YEARS AGO) Smoking Status: Former Smoker Type Used: Cigarettes 2nd Hand Smoke Exposure: Yes Physical Abuse Screen: No Sexual Abuse: No Recent Foreign Travel: No Contact w/other who traveled: No Recent Hopitalizations: Yes (SPINAL CORD INJURY AND AT [place] 7-19 RECENT HOSPITALIZATION FOR SEPSIS) Recent Infectious Disease Expo: No Immunizations Up To Date Tetanus Booster (TDap): Unknown Pediatric: Yes Date of Pneumonia Vaccine: Sep 04, 2015 Date of Influenza Vaccine: Apr 05, 2017 Seasonal Allergies Seasonal Allergies: Yes (TALL GRASS, ANIMALS) Past Medical History Surgeries: Abdominal, Orthopedic C3-C7 neurosurgery with decompression laminectomy, rib plating right Respiratory: Pneumonia Currently Using CPAP: No Currently Using BIPAP: No Neurological: Neuropathy, Spinal Cord Injury, Traumatic Brain Injury Reproductive: No Sexually Transmitted Disease: No Genitourinary: Bladder Infection Gastrointestinal: Gastroesophageal Reflux, Polyps Musculoskeletal: Chronic Back Pain, Fractures Quad Endocrine: Diabetes, Insulin dep HEENT: Cataract Psychosocial: Sleep Difficulties, Anxiety History of Blood Disorders: No Adverse Reaction to Blood Mcclellan: No Family History Abdominal aortic aneurysm 03 MOTHER (DOESN'T KNOW MOM'S MEDICAL HISTORY) Cancer 03 FATHER (TESTICULAR) Family history: Diabetes mellitus 03 FATHER Family history: Hypertension 03 FATHER No Family History of: Family history: Alzheimer's disease Family history: Arthritis Family history: Breast disease Family history: Cardiovascular disease Family history: Gastrointestinal disease Family history: Thyroid disorder Hereditary disease History of - respiratory disease Myocardial infarction Parkinson's disease Seizure disorder Stroke AAA, Diabetes, Hypertension Review of Systems Constitutional: no symptoms reported, see HPI EENTM: see HPI Respiratory: no symptoms reported Cardiovascular: no symptoms reported Gastrointestinal: no symptoms reported Genitourinary: no symptoms reported Skin: no symptoms reported Psychiatric/Neurological: No Symptoms Reported Physical Exam Physical Exam Vital Signs Vital Signs - First Documented 03/03/19 11:27 Temp 37.63364 Pulse 88 Resp 20 B/P (MAP) 132/78 (96) Pulse Ox 96 O2 Delivery Room Air O2 Flow Rate 2.40 Capillary Refill : Less Than 3 Seconds Height, Weight, BMI Height: 5'3.00" Weight: 150lbs. 0.3oz. 68.681167lg; 22.18 BMI Method:Stated General Appearance: Other (hyper somnolent but will awaken with a sternal rub briefly) HEENT: Other (poor dentition) Neck: Limited Range of Motion Respiratory: Lungs Clear, Decreased Breath Sounds Cardiovascular: Regular Rate, Rhythm, No Gallop, No Murmur Gastrointestinal: Non Tender, Soft Extremity: Other (flaccid lower extremities) Neurologic/Psychiatric: Other (hypersomnolent) Skin: Warm/Dry, Pallor Lymphatic: No Adenopathy Results Results/Procedures Labs Laboratory Tests 03/03/19 09:07 Patient resulted labs reviewed. Assessment/Plan Admission Diagnosis Sepsis secondary to sacral decubitus with osteomyelitis C3 partial quadriplegia Plan to admit for aggressive IV antibiotics wound care and consultation with surgery. Admission Status: Inpatient Order (span 2 midnights) Reason for Inpatient Admission: Patient has had multiple readmissions hospitalizations for continued sepsis and it may be time to get definitive treatment ISABELLE PANIAGUA MD Mar 03, 2019 14:45
[2019-03-03 14:51] LABS: ABG BASE EXCESS -0.6 MMOL/L (-2.5-2.5); ABG OXYGEN SATURATION 98 % (94-100); ABG PCO2 39 MMHG (35-45); ABG PO2 98 MMHG (79-93); ABG TCO2 24.9 MMOL/L (21.0-31.0); ALLENS TEST YES-POS; INSPIRED O2 2 L
[2019-03-03 14:52] LABS: PATIENT TEMP 36.4; VENTILATOR NO
[2019-03-03 15:30] VITALS: BP 102/66
[2019-03-03] MEDS: inSUlin ASPART (NovoLOG) 1 UNIT/0.01 ML (CHARGE PER UNIT) SC SCH ×2 (16:00→21:00)
[2019-03-03] MEDS ORDERED: ENOXAPARIN 40 MG/0.4 ML (LOVENOX) SYR ONE (18:23)
[2019-03-03] MEDS: PIPERACILLIN/TAZO 4.5 GM/NS 100 ML IV SCH ×2 (18:32)
[2019-03-03] MEDS: ENOXAPARIN 40 MG/0.4 ML (LOVENOX) SYR SC SCH (18:33)
[2019-03-03] MEDS: A & D OINT 113 GM TUBE TOP PRN (18:36)
--- NOTE | 2019-03-03 18:43 | NUR ---
REMAINS LETHARGIC. OPENS EYES TO VOICE AT TIMRS.
[2019-03-03 19:55] VITALS: BP 97/59
[2019-03-03] MEDS: VANCOMYCIN 750 MG/NS 250 ML IVPB IV SCH ×2 (22:00)
[2019-03-04] MEDS: PIPERACILLIN/TAZO 4.5 GM/NS 100 ML IV SCH ×6 (01:00→16:32)
[2019-03-04 05:06] LABS: BASOPHILS % (AUTO) 0 % (0-10); EOSINOPHILS # (AUTO) 0.1 10^3/uL (0.0-0.3); EOSINOPHILS % (AUTO) 1 % (0-10); HEMATOCRIT 33 % (40-54); HEMOGLOBIN 10.2 G/DL (13.3-17.7); LYMPHOCYTES % (AUTO) 24 % (12-44); MEAN CORPUSCULAR HEMOGLOBIN 28 PG (25-34); MEAN CORPUSCULAR HGB CONC 31 G/DL (32-36); MEAN CORPUSCULAR VOLUME 89 FL (80-99); MEAN PLATELET VOLUME 8.1 FL (7.4-10.4); MONOCYTES # (AUTO) 1.1 X 10^3 (0.0-1.0); MONOCYTES % (AUTO) 13 % (0-12); NEUTROPHILS # (AUTO) 5.1 X 10^3 (1.8-7.8); NEUTROPHILS % (AUTO) 62 % (42-75); PLATELET COUNT 297 10^3/uL (130-400); RED CELL DISTRIBUTION WIDTH 14.6 % (10.0-14.5); WHITE BLOOD COUNT 8.3 10^3/uL (4.3-11.0)
[2019-03-04 05:25] LABS: BUN/CREATININE RATIO 9; CARBON DIOXIDE 19 MMOL/L (21-32); CHLORIDE 110 MMOL/L (98-107); CREATININE SERUM 0.57 MG/DL (0.60-1.30); POTASSIUM 3.8 MMOL/L (3.6-5.0); SODIUM 138 MMOL/L (135-145)
[2019-03-04 05:26] LABS: ALANINE AMINOTRANSFERASE 11 U/L (0-55); ALBUMIN 2.8 GM/DL (3.2-4.5); ALKALINE PHOSPHATASE 100 U/L (40-136); BILIRUBIN,TOTAL 0.2 MG/DL (0.1-1.0); CALCIUM 8.5 MG/DL (8.5-10.1); GFR ESTIMATED > 60; GLUCOSE 153 MG/DL (70-105); TOTAL PROTEIN 6.6 GM/DL (6.4-8.2)
[2019-03-04 05:33] VITALS: BP 110/78
[2019-03-04] MEDS: inSUlin ASPART (NovoLOG) 1 UNIT/0.01 ML (CHARGE PER UNIT) SC SCH ×4 (05:37→21:00)
[2019-03-04] MEDS: VANCOMYCIN 750 MG/NS 250 ML IVPB IV SCH ×6 (05:37→21:58)
[2019-03-04 07:50] VITALS: BP 154/86
[2019-03-04] MEDS: IBUPROFEN 800 MG (MOTRIN) TAB PO PRN ×2 (08:22→16:32)
[2019-03-04] MEDS: DAKIN'S 1/4 STRENGTH (0.125%) 473 ML BTL TOP SCH (08:27)
[2019-03-04] MEDS: A & D OINT 113 GM TUBE TOP PRN (08:27)
[2019-03-04] MEDS: D5 1/2 NS 1000 ML IV SOLUTION 1,000 ML IV SCH ×4 (08:28→22:30)
[2019-03-04] MEDS ORDERED: INSU100I29 SQ ×2 (08:47)
--- NOTE | 2019-03-04 09:40 | Progress Note - Surgery ---
[facility] 03/04/19 0940: Subjective Date Seen by a Provider: Mar 04, 2019 Time Seen by a Provider: 09:34 Subjective/Events-last exam Patient is awake and alert and able to respond to questions. Patient confirmed that the reason for his latest visit was a high fever and that he was transported by EMS to the ED. Patient reports he is feeling a lot of pain over his back and into his arms. He is requesting for a medication review and says he wants "to be put on the right meds". Patient would like to know if he can be placed on a solid diet. Patient has small skin ulceration on left heel that he attributes to a pair of boots he had on. Review of Systems General: No Chills, No Night Sweats HEENT: No Head Aches; Visual Changes (vision alternates between blurry and clear. ); No Dysphasia Pulmonary: No Dyspnea, No Cough Cardiovascular: No: Chest Pain, Palpitations Gastrointestinal: No: Nausea, Vomiting, Abdominal Pain Musculoskeletal: arm pain, back pain Focused Exam Lactate Level 03/03/19 09:07: Lactic Acid Level 2.68*H 03/03/19 10:45: Lactic Acid Level 2.13*H 03/03/19 15:35: Lactic Acid Level 1.40 Objective Exam Vital Signs Date Time Temp Pulse Resp B/P (MAP) Pulse Ox O2 Delivery O2 Flow Rate FiO2 03/04/19 07:50 36.7 73 21 154/86 100 Nasal Cannula 2.00 03/04/19 05:33 37.4 72 20 110/78 98 Nasal Cannula 2.00 2.00 03/04/19 00:00 36.7 68 97 03/03/19 20:10 Nasal Cannula 2.00 03/03/19 20:00 98 Nasal Cannula 2.00 03/03/19 19:55 36.6 65 20 97/59 98 Nasal Cannula 2.00 03/03/19 19:55 36.3 65 20 97/59 98 Nasal Cannula 2.00 03/03/19 17:26 Nasal Cannula 2.00 03/03/19 15:30 36.8 77 20 102/66 98 Nasal Cannula 2.00 03/03/19 12:29 36.5 77 20 93/59 99 Nasal Cannula 2.00 03/03/19 11:53 37.3 77 18 137/73 100 Nasal Cannula 2.00 03/03/19 11:27 90 Nasal Cannula 2.40 03/03/19 11:27 37.00780 88 20 132/78 (96) 96 Room Air I & O 03/04/19 07:00 Intake Total 3842.5 ml Output Total 4645 ml Balance -802.5 ml Capillary Refill : Less Than 3 SecondsLess Than 3 Seconds General Appearance: No Apparent Distress, Other (VERY DROWSY--APPEARS OVER MEDICATED; DIRTY, MALODOROUS) HEENT: Other (VERY POOR DENTITION--MULTIPLE MISSING TEETH AND REMAINING TEETH WITH EXTENSIVE DECAY. ORAL MUCOSA DRY. ) Neck: Limited Range of Motion Respiratory: Normal Breath Sounds, No Accessory Muscle Use, No Respiratory Distress, Decreased Breath Sounds (IN BASES) Cardiovascular: Regular Rate, Rhythm Gastrointestinal: non tender, soft Extremity: Normal Capillary Refill Neurologic/Psychiatric: Alert, Other (VERY DROWSY/SEMI-ALERT. OPENS EYES TO VOICE. SPEECH MUMBLED AND INCOHERENT AT TIMES, IS CLEAR AND APPEARS ORIENTED AT TIMES; PT WITH QUADRIPLEGIA) Skin: Warm/Dry, Pallor, Other (DECUBITUS ULCER NOTED ABOVE) Lymphatic: No Adenopathy Results Lab Laboratory Tests 03/03/19 10:45: Lactic Acid Level 2.13*H 03/03/19 12:55: Urine Opiates Screen POSITIVEH, Urine Oxycodone Screen NEGATIVE, Urine Methadone Screen NEGATIVE, Urine Propoxyphene Screen NEGATIVE, Urine Barbiturates Screen NEGATIVE, Ur Tricyclic Antidepressants Screen NEGATIVE, Urine Phencyclidine Screen NEGATIVE, Urine Amphetamines Screen NEGATIVE, Urine Methamphetamines Screen NEGATIVE, Urine Benzodiazepines Screen POSITIVEH, Urine Cocaine Screen NEGATIVE, Urine Cannabinoids Screen POSITIVEH 03/03/19 14:43: Blood Gas Puncture Site RT BRACH, Blood Gas Patient Temperature 36.4, Arterial Blood pH 7.40, Arterial Blood Partial Pressure CO2 39, Arterial Blood Partial Pressure O2 98H, Arterial Blood HCO3 24, Arterial Blood Total CO2 24.9, Arterial Blood Oxygen Saturation 98, Arterial Blood Base Excess -0.6, Jeremiah Test YES-POS, Blood Gas Ventilator Setting NO, Blood Gas Inspired Oxygen 2 L 03/03/19 15:35: Lactic Acid Level 1.40 03/03/19 15:36: Glucometer 180H 03/03/19 21:17: Glucometer 286H 03/04/19 04:50: White Blood Count 8.3, Red Blood Count 3.68L, Hemoglobin 10.2L, Hematocrit 33L, Mean Corpuscular Volume 89, Mean Corpuscular Hemoglobin 28, Mean Corpuscular Hemoglobin Concent 31L, Red Cell Distribution Width 14.6H, Platelet Count 297, Mean Platelet Volume 8.1, Neutrophils (%) (Auto) 62, Lymphocytes (%) (Auto) 24, Monocytes (%) (Auto) 13H, Eosinophils (%) (Auto) 1, Basophils (%) (Auto) 0, Neutrophils # (Auto) 5.1, Lymphocytes # (Auto) 2.0, Monocytes # (Auto) 1.1H, Eosinophils # (Auto) 0.1, Basophils # (Auto) 0.0, Sodium Level 138, Potassium Level 3.8, Chloride Level 110#H, Carbon Dioxide Level 19L, Anion Gap 9, Blood Urea Nitrogen 5L, Creatinine 0.57L, Estimat Glomerular Filtration Rate > 60, BUN/Creatinine Ratio 9, Glucose Level 153H, Calcium Level 8.5, Corrected Calcium 9.5, Total Bilirubin 0.2, Aspartate Amino Transf (AST/SGOT) 19, Alanine Aminotransferase (ALT/SGPT) 11, Alkaline Phosphatase 100, Total Protein 6.6, Al bumin 2.8L Microbiology 03/03/19 Influenza Types A,B Antigen (CITLALY) - Final, Complete 03/03/19 Gram Stain, Resulted Pending 03/03/19 Wound Culture - Preliminary, Resulted Gram Negative Bacillus 1 See Comments Assessment/Plan Assessment/Plan Assessment/Plan Decubitus ulcer in sacrum wound with slight eschar Elevated lactic acid - resolved Quadriplegia Fever - reported 102.5F from home Osteomyelitis sacrum medical management, no surgical intervention at this time may need debridement short term wound care daily and prn frequent repositioning to offset pressure no family present at this time will follow Clinical Quality Measures DVT/VTE Risk/Contraindication: Risk Factor Score Per Nursin RFS Level Per Nursing on Admit: 4+=Very High NIKOLAY JAMES DO 03/05/19 0817: Subjective Subjective/Events-last exam Patient awake and talking. Not having any complaints, he's feeling back to as normal as he can. Said he was having fever at home and then just not feeling good. Denies any pain. Denies n/v fever sweats chills shortness of breath or chest pain. Objective Exam General Appearance: No Apparent Distress HEENT: Other (poor dentation) Neck: Limited Range of Motion Respiratory: Chest Non Tender, No Accessory Muscle Use, No Respiratory Distress Cardiovascular: Regular Rate, Rhythm Gastrointestinal: non tender, soft Extremity: Normal Capillary Refill Neurologic/Psychiatric: Alert, Other (answeres questions appropriate and oriented) Skin: Warm/Dry, Other (decubitus ulcer with minimal slough) Lymphatic: No Adenopathy Assessment/Plan Assessment/Plan Assessment/Plan Decubitus ulcer of sacrum Elevated lactic acid - resolved Quadriplegia Fever - reported 102.5F from home Osteomyelitis sacrum continue wound care will add Santyl for some debridement continue antibiotics will need more retirement due to osteo Supervisory-Addendum Brief Verification & Attestation Participated in pt care: history, MDM, physical Personally performed: exam, history, MDM, supervision of care Care discussed with: Medical Student Procedures: n/a Results interpretation: Verified all documentation Verification and Attestation of Medical Student E/M Service A medical student performed and documented this service in my presence. I reviewed and verified all information documented by the medical student and made modifications to such information, when appropriate. I personally performed the physical exam and medical decision making. Nikolay James, Mar 04, 2019,18:17 SELIN ARREGUIN [facility] Mar 04, 2019 09:40 NIKOLAY JAMES DO Mar 05, 2019 08:17
[2019-03-04 11:45] VITALS: BP 165/79
[2019-03-04] MEDS ORDERED: TROUGH ORDER-PHARMACY XX NR (13:00)
--- NOTE | 2019-03-04 13:47 | Progress Note - Hospitalist ---
Subjective HPI/CC On Admission Date Seen by Provider: Mar 04, 2019 Time Seen by Provider: 13:00 This is an unfortunate 53-year-old white male with a partial C3 quadriplegia from a fall. The patient is brought to the emergency room with a fever and hypersomnolence. Patient is febrile with an elevated white count. CT shows probable osteomyelitis secondary to a decubitus ulcer on the sacrum. He is being admitted with presumed sepsis from the sacral ulcer and osteomyelitis. Patient is super somnolent and unable to give me any additional history. is not present. He has been given Narcan without awakening. ABG is pending Subjective/Events-last exam Patient is awake and alert today. He complains of pain and wants his medications restarted. He says that no one turned in yesterday. I reiterated that that's very important for him to at least if he can turn himself as well. He says he has sensation below his injury and can feel pain. We discussed that there is a possibility he has osteomyelitis of the sacrum. Review of Systems Musculoskeletal: back pain Neurological: Weakness Focused Exam Lactate Level 03/03/19 09:07: Lactic Acid Level 2.68*H 03/03/19 10:45: Lactic Acid Level 2.13*H 03/03/19 15:35: Lactic Acid Level 1.40 Objective Exam Vital Signs Vital Signs Date Time Temp Pulse Resp B/P (MAP) Pulse Ox O2 Delivery O2 Flow Rate FiO2 03/04/19 11:45 37.3 71 19 165/79 100 Nasal Cannula 2.00 Capillary Refill : Less Than 3 SecondsLess Than 3 Seconds General Appearance: Chronically ill HEENT: Other (poor dentition) Neck: Limited Range of Motion Respiratory: Lungs Clear, Normal Breath Sounds, No Accessory Muscle Use, No Respiratory Distress Cardiovascular: Regular Rate, Rhythm, No Edema, No Gallop, No JVD, No Murmur Gastrointestinal: Normal Bowel Sounds, Non Tender, Soft Rectal: Deferred Back: Other (not examined) Neurologic/Psychiatric: Alert, Oriented x3, Other (flaccid lower extremities) Skin: Pallor Results/Procedures Lab Laboratory Tests 03/04/19 04:50 Patient resulted labs reviewed. Assessment/Plan Assessment and Plan Assess & Plan/Chief Complaint Sepsis recurrent nature most likely secondary to sacral decubitus ulcer with osteomyelitis Dr. James and Dr. Craven following-cultures pending on Zosyn and vancomycin Chronic pain C3 partial paraplegia Hypertension We'll check a sedimentation rate Clinical Quality Measures DVT/VTE Risk/Contraindication: Risk Factor Score Per Nursin RFS Level Per Nursing on Admit: 4+=Very High JESSICA PANIAGUA MD Mar 04, 2019 13:47
[2019-03-04] MEDS: MIDODRINE 10 MG (PROAMATINE) TAB PO SCH ×2 (14:23→21:57)
[2019-03-04] MEDS: BACLOFEN 10 MG (LIORESAL) TAB PO SCH ×2 (14:23→21:57)
[2019-03-04] MEDS: HYDROcodone/APAP 5 MG/325 MG (LORTAB) TAB PO PRN ×2 (14:24→21:57)
[2019-03-04 15:22] VITALS: BP 185/85
[2019-03-04] MEDS ORDERED: MONTELUKAST 10 MG (SINGULAIR) TAB PO ONE (16:45)
[2019-03-04] MEDS: MICONAZOLE 2% POWDER (DESENEX AF) 90 GM TOP SCH (17:34)
[2019-03-04] MEDS: MONTELUKAST 10 MG (SINGULAIR) TAB PO SCH (17:34)
[2019-03-04] MEDS ORDERED: diphenhydrAMINE 50 MG/ML INJ (BENADRYL) ONE (17:35)
[2019-03-04] MEDS ORDERED: diphenhydrAMINE 50 MG/ML INJ (BENADRYL) IVP PRN (18:00)
[2019-03-04] MEDS: ENOXAPARIN 40 MG/0.4 ML (LOVENOX) SYR SC SCH (18:00)
[2019-03-04 19:19] VITALS: BP 131/79
[2019-03-04] MEDS: RT-ALBUTEROL/IPRATROPIUM 3 ML (DUONEB) VIAL INH SCH (19:34)
[2019-03-04] MEDS: QUEtiapine 100 MG (SEROquel) TAB IMMEDIATE RELEASE PO SCH (21:00)
[2019-03-04] MEDS: FAMOTIDINE 20 MG (PEPCID) TABLET PO SCH (21:57)
[2019-03-04] MEDS: ALPRAZolam 0.5 MG (XANAX) TAB PO PRN (21:58)
[2019-03-04] MEDS: MELATONIN 3 MG TABLET PO SCH (21:58)
[2019-03-05] VITALS: BP 133/80
[2019-03-05] MEDS: COLLAGENASE 30 GM (SANTYL) TUBE TP SCH ×3 (00:23→21:13)
[2019-03-05] MEDS: PIPERACILLIN/TAZO 4.5 GM/NS 100 ML IV SCH ×6 (01:00→16:24)
[2019-03-05 05:06] VITALS: BP 122/74
[2019-03-05] MEDS: VANCOMYCIN 750 MG/NS 250 ML IVPB IV SCH ×6 (05:17→21:12)
[2019-03-05] MEDS: D5 1/2 NS 1000 ML IV SOLUTION 1,000 ML IV SCH ×3 (05:28→18:54)
[2019-03-05] MEDS: KCL 10 MEQ TAB (MICRO K) PO SCH (06:17)
[2019-03-05] MEDS: inSUlin ASPART (NovoLOG) 1 UNIT/0.01 ML (CHARGE PER UNIT) SC SCH ×4 (06:17→21:02)
[2019-03-05 07:55] VITALS: BP 120/73
--- NOTE | 2019-03-05 07:58 | Progress Note ---
Subjective Subjective/Events-last exam Stable vitals Elevated ESR 63 Nl blood sugar this AM compared to past few days Decubitus ulcer Focused Exam Lactate Level 03/03/19 09:07: Lactic Acid Level 2.68*H 03/03/19 10:45: Lactic Acid Level 2.13*H 03/03/19 15:35: Lactic Acid Level 1.40 Objective Exam Last Set of Vital Signs Vital Signs Date Time Temp Pulse Resp B/P (MAP) Pulse Ox O2 Delivery O2 Flow Rate FiO2 03/05/19 05:06 36.7 58 20 122/74 100 Nasal Cannula 2.00 Capillary Refill : Less Than 3 SecondsLess Than 3 Seconds I&O Intake and Output 03/04/19 23:59 Intake Total 3090 ml Output Total 5100 ml Balance -2009 ml Intake Oral 3090 ml Output Urine Total 5100 ml # Bowel Movements 5 Results/Procedures Lab Laboratory Tests 03/04/19 12:48: Vancomycin Level Trough 13.8 03/04/19 17:37: Glucometer 209H 03/04/19 21:33: Glucometer 267H 03/05/19 06:05: Glucometer 79 Microbiology 03/03/19 Blood Culture - Preliminary, Resulted No growth 03/03/19 Influenza Types A,B Antigen (CITLALY) - Final, Complete 03/03/19 Urine Culture - Final, Complete NO GROWTH 03/03/19 Gram Stain - Final, Resulted 03/03/19 Wound Culture - Preliminary, Resulted Mixed Bacterial Rin Pseudomonas species Assessment/Plan Assessment/Plan Admission Status: Inpatient Order (span 2 midnights) Assessment & Plan sepsis Chronic pain C3 partial paraplegia Polysubstance abuse HTN Decubitus ulcer- Plan: Continue wound care Clinical Quality Measures DVT/VTE Risk/Contraindication: Risk Factor Score Per Nursin RFS Level Per Nursing on Admit: 4+=Very High GIDEON ZAFAR MED STUDEN Mar 05, 2019 07:58
[2019-03-05] MEDS: MIDODRINE 10 MG (PROAMATINE) TAB PO SCH ×3 (08:04→21:00)
[2019-03-05] MEDS: FAMOTIDINE 20 MG (PEPCID) TABLET PO SCH ×2 (08:04→21:00)
[2019-03-05] MEDS: LORATADINE (CLARITIN) 10 MG TAB PO SCH (08:04)
[2019-03-05] MEDS: BACLOFEN 10 MG (LIORESAL) TAB PO SCH ×3 (08:04→21:00)
[2019-03-05] MEDS: DAKIN'S 1/4 STRENGTH (0.125%) 473 ML BTL TOP SCH (08:09)
[2019-03-05] MEDS: MICONAZOLE 2% POWDER (DESENEX AF) 90 GM TOP SCH ×2 (08:09→21:04)
[2019-03-05] MEDS: RT-ALBUTEROL/IPRATROPIUM 3 ML (DUONEB) VIAL INH SCH ×2 (08:59→19:16)
[2019-03-05] MEDS ORDERED: DAKIN'S 1/4 STRENGTH (0.125%) 473 ML BTL TOP SCH (09:00)
--- NOTE | 2019-03-05 11:43 | Progress Note - Hospitalist ---
GIDEON ZAFAR [facility] 03/05/19 1143: Subjective HPI/CC On Admission Date Seen by Provider: Mar 05, 2019 Time Seen by Provider: 07:44 This is an unfortunate 53-year-old white male with a partial C3 quadriplegia from a fall. The patient is brought to the emergency room with a fever and hypersomnolence. Patient is febrile with an elevated white count. CT shows probable osteomyelitis secondary to a decubitus ulcer on the sacrum. He is being admitted with presumed sepsis from the sacral ulcer and osteomyelitis. Patient is super somnolent and unable to give me any additional history. is not present. He has been given Narcan without awakening. ABG is pending Subjective/Events-last exam Slept well Hgb 10.2 on 03/02, continue to monitor Elevated ESR @ 63 hyperglycemia controlled Pt started on Loratadine, Citalopram Decubitus ulcer-dressing changed today, Dr. James to examine the would and possible debridement, Dr. Peters also following pt. Cath in place had a BM this AM Review of Systems General: No Chills, No Night Sweats HEENT: No Head Aches Pulmonary: No Dyspnea, No Cough Cardiovascular: No: Chest Pain, Palpitations Gastrointestinal: No: Nausea, Vomiting Genitourinary: Incontinence Focused Exam Lactate Level 03/03/19 09:07: Lactic Acid Level 2.68*H 03/03/19 10:45: Lactic Acid Level 2.13*H 03/03/19 15:35: Lactic Acid Level 1.40 Objective Exam Vital Signs Vital Signs Date Time Temp Pulse Resp B/P (MAP) Pulse Ox O2 Delivery O2 Flow Rate FiO2 03/05/19 08:59 97 Nasal Cannula 1.00 03/05/19 07:55 36.5 61 16 120/73 Capillary Refill : Less Than 3 SecondsLess Than 3 Seconds General Appearance: No Apparent Distress, WD/WN HEENT: Normal ENT Inspection Respiratory: Chest Non Tender, Lungs Clear, Normal Breath Sounds, No Accessory Muscle Use, No Respiratory Distress Cardiovascular: Regular Rate, Rhythm, No Edema, No Gallop, No JVD, No Murmur, Normal Peripheral Pulses Extremity: Other (partial quadriplegia) Neurologic/Psychiatric: Alert, Oriented x3, Other (motor deficit ) Results/Procedures Lab Patient resulted labs reviewed. Assessment/Plan Assessment and Plan Assess & Plan/Chief Complaint Assessment & Plan sepsis Chronic pain C3 partial paraplegia Polysubstance abuse HTN Decubitus ulcer-Dr. James to evaluate and possible Debridement Clinical Quality Measures DVT/VTE Risk/Contraindication: Risk Factor Score Per Nursin RFS Level Per Nursing on Admit: 4+=Very High PAOLA GAN DO 03/05/192053: Subjective Subjective/Events-last exam Pt slept well last night Dr. James will evaluate the need or debridement for the osteomyelitis of the decubitus ulcer Glucose is normal Zamarripa catheter in place Overall appears stable but declined since last seen He left against medical advice last time I saw him Objective Exam General Appearance: Chronically ill Assessment/Plan Assessment and Plan Assess & Plan/Chief Complaint Plan: Appreciate Dr James Decubitus ulcer debridement? Diagnosis/Problems Diagnosis/Problems (1) Decubitus ulcer of coccygeal region, stage 4 Status: Chronic (2) Spinal cord injury at C1-C4 level Status: Chronic (3) COPD (chronic obstructive pulmonary disease) Status: Chronic (4) Anemia Status: Chronic (5) Anxiety Status: Chronic (6) Incontinence of feces Status: Chronic (7) Neurogenic bladder Status: Chronic (8) PEG (percutaneous endoscopic gastrostomy) status (9) Quadriplegia Status: Acute (10) Neurogenic bowel Status: Acute (11) Marijuana use Status: Acute (12) History of illicit drug use Status: Acute (13) Paresthesias Status: Acute (14) Uncontrolled diabetes mellitus Status: Chronic (15) Illicit drug use Status: Chronic (16) Hypertension Status: Chronic (17) Type 2 diabetes mellitus with hyperglycemia Status: Chronic (18) Chronic pain Status: Chronic Permanent Comment: Low back pain Last Edited By: Georgia Zambrano on Sep 03, 2017 12:27 (19) HLD (hyperlipidemia) Status: Chronic (20) DVT prophylaxis Status: Acute Supervisory-Addendum Brief Verification & Attestation Participated in pt care: history, MDM, physical Personally performed: exam, history, MDM, supervision of care Care discussed with: Medical Student Procedures: n/a Results interpretation: Verified all documentation Verification and Attestation of Medical Student E/M Service A medical student performed and documented this service in my presence. I reviewed and verified all information documented by the medical student and made modifications to such information, when appropriate. I personally performed the physical exam and medical decision making. Paola Gan, Mar 05, 2019,20:54 GIDEON ZAFAR [facility] Mar 05, 2019 11:43 PAOLA GAN DO Mar 05, 2019 20:54
[2019-03-05 12:00] VITALS: BP 162/91
--- NOTE | 2019-03-05 15:10 | NUR ---
CM/SS, respond to consult. Reviewed all EMR and history, extensive psychosocial support and interventions during [facility] stay. EMR reflects that patient is lethargic, he appears sleeping soundly at this time so did not disturb. No family present. Care plan will likely be extensive, including treatment for Stage IV decubitus coccygeal ulcer with suspected osteomyelitis. Anticipate senior living environment, patient insured [facility] only with no skilled benefits to access. Accepting SNF may be difficult to find because of level of care needed with limited reimbursement available. Will continue intermittent review for progress and discharge planning activity.
[2019-03-05 16:00] VITALS: BP 182/89
[2019-03-05] MEDS: HYDROcodone/APAP 5 MG/325 MG (LORTAB) TAB PO PRN (16:23)
--- NOTE | 2019-03-05 16:26 | Progress Note - Surgery ---
JUICE SAMSON,MED STUDENT 03/05/19 1626: Subjective Date Seen by a Provider: Mar 05, 2019 Time Seen by a Provider: 07:45 Subjective/Events-last exam Pt reports arriving at ED with fever of 102.5 early Tuesday. Pt feeling well today. Concerned about his decubitus and L heel ulcer and managing them at home. Unaccompanied by family today. No new complaints at this time. Focused Exam Lactate Level 03/03/19 09:07: Lactic Acid Level 2.68*H 03/03/19 10:45: Lactic Acid Level 2.13*H 03/03/19 15:35: Lactic Acid Level 1.40 Objective Exam Vital Signs Date Time Temp Pulse Resp B/P (MAP) Pulse Ox O2 Delivery O2 Flow Rate FiO2 03/05/19 12:00 37.0 60 20 162/91 Room Air 03/05/19 08:59 97 Nasal Cannula 1.00 03/05/19 08:00 97 Nasal Cannula 1.00 03/05/19 07:55 36.5 61 16 120/73 98 Nasal Cannula 1.00 03/05/19 05:06 36.7 58 20 122/74 100 Nasal Cannula 2.00 03/05/19 00:00 36.8 80 18 133/80 99 Nasal Cannula 2.00 2.00 03/04/19 20:00 98 Nasal Cannula 2.00 03/04/19 19:31 98 Nasal Cannula 2.00 03/04/19 19:19 36.8 79 18 131/79 100 Nasal Cannula 2.00 I & O 03/05/19 07:00 Intake Total 3340 ml Output Total 6700 ml Balance -3360 ml Capillary Refill : Less Than 3 SecondsLess Than 3 Seconds General Appearance: No Apparent Distress, Chronically ill HEENT: PERRL/EOMI Neck: Limited Range of Motion Respiratory: Chest Non Tender, Lungs Clear, Normal Breath Sounds, No Accessory Muscle Use, No Respiratory Distress Cardiovascular: Regular Rate, Rhythm, No Edema, Normal Peripheral Pulses Peripheral Pulses: 2+ Dorsalis Pedis (R), 2+ Left Dors-Pedis (L), 2+ Radial Pulses (R), 2+ Radial Pulses (L) Gastrointestinal: non tender, distended (his normal ) Extremity: Normal Capillary Refill, No Pedal Edema, Other (partial quadriplegia) Neurologic/Psychiatric: Alert, Oriented x3, Motor Weakness, Sensory Deficit, Other (motor deficit ) Skin: Warm/Dry, Other (decubitus ulcer with minimal slough) Lymphatic: No Adenopathy (Supra/infraclavicular, cervical ) Results Lab Laboratory Tests 03/04/19 17:37: Glucometer 209H 03/04/19 21:33: Glucometer 267H 03/05/19 06:05: Glucometer 79 03/05/19 11:05: Glucometer 143H 03/05/19 15:44: Glucometer 226H Microbiology 03/03/19 Blood Culture - Preliminary, Resulted No growth 03/03/19 Influenza Types A,B Antigen (CITLALY) - Final, Complete 03/03/19 Urine Culture - Final, Complete NO GROWTH 03/03/19 Gram Stain - Final, Resulted 03/03/19 Wound Culture - Preliminary, Resulted Mixed Bacterial Rin Pseudomonas species Assessment/Plan Assessment/Plan Assessment/Plan Decubitus ulcer of sacrum Quadriplegia Fever - reported 102.5F from home - Pressure ulcer L heel Continue dakins bid dressings. Add tegaderm dressing to L heel. Consider Ave boots b/l. Pt no longer experiencing fever and white count has fallen from 11.4 to 8.3. Consider sharp wound debridement before sending home. Clinical Quality Measures DVT/VTE Risk/Contraindication: Risk Factor Score Per Nursin RFS Level Per Nursing on Admit: 4+=Very High EDMUND GARCÍA DO 03/05/19 1706: Subjective Time Seen by a Provider: 16:56 Subjective/Events-last exam Pt seen eating, no complaints. Objective Exam Skin: Other (decubitus ulcer with necrotic area; which looks worse than when seen in clinic ) Assessment/Plan Assessment/Plan Assessment/Plan Pt will need surgical debridement; he states he is having more feeling and therefore we probably should do this in the OR. Will discuss with pt and family and plan for possibly Tuesday. Supervisory-Addendum Brief Verification & Attestation Participated in pt care: history, MDM, physical Personally performed: exam, history, MDM Care discussed with: Medical Student Procedures: n/a Verification and Attestation of Medical Student E/M Service A medical student performed and documented this service in my presence. I reviewed and verified all information documented by the medical student and made modifications to such information, when appropriate. I personally performed the physical exam and medical decision making. Edmund García, Mar 05, 2019,17:06 JUICE SAMSON,MED STUDENT Mar 05, 2019 16:26 EDMUND GARCÍA DO Mar 05, 2019 17:06
[2019-03-05] MEDS: ALPRAZolam 0.5 MG (XANAX) TAB PO PRN ×2 (17:29→21:12)
[2019-03-05] MEDS: ENOXAPARIN 40 MG/0.4 ML (LOVENOX) SYR SC SCH (18:18)
[2019-03-05 19:27] VITALS: BP 178/89
[2019-03-05] MEDS: QUEtiapine 100 MG (SEROquel) TAB IMMEDIATE RELEASE PO SCH (20:59)
[2019-03-05] MEDS: MONTELUKAST 10 MG (SINGULAIR) TAB PO SCH (21:00)
[2019-03-05] MEDS: MELATONIN 3 MG TABLET PO SCH (21:01)
[2019-03-06 00:16] VITALS: BP 131/75
[2019-03-06] MEDS: D5 1/2 NS 1000 ML IV SOLUTION 1,000 ML IV SCH ×2 (00:48→09:47)
[2019-03-06] MEDS: PIPERACILLIN/TAZO 4.5 GM/NS 100 ML IV SCH ×6 (00:48→17:07)
[2019-03-06 03:20] VITALS: BP 106/80
[2019-03-06] MEDS: KCL 10 MEQ TAB (MICRO K) PO SCH (05:33)
[2019-03-06] MEDS: VANCOMYCIN 750 MG/NS 250 ML IVPB IV SCH ×6 (05:33→21:55)
[2019-03-06 06:07] LABS: BASOPHILS % (AUTO) 0 % (0-10); EOSINOPHILS # (AUTO) 0.1 10^3/uL (0.0-0.3); EOSINOPHILS % (AUTO) 1 % (0-10); HEMATOCRIT 32 % (40-54); HEMOGLOBIN 10.3 G/DL (13.3-17.7); LYMPHOCYTES # (AUTO) 2.3 X 10^3 (1.0-4.0); LYMPHOCYTES % (AUTO) 27 % (12-44); MEAN CORPUSCULAR HEMOGLOBIN 28 PG (25-34); MEAN CORPUSCULAR HGB CONC 32 G/DL (32-36); MEAN CORPUSCULAR VOLUME 86 FL (80-99); MEAN PLATELET VOLUME 8.2 FL (7.4-10.4); MONOCYTES % (AUTO) 12 % (0-12); NEUTROPHILS # (AUTO) 5.2 X 10^3 (1.8-7.8); NEUTROPHILS % (AUTO) 60 % (42-75); PLATELET COUNT 301 10^3/uL (130-400); RED CELL DISTRIBUTION WIDTH 14.3 % (10.0-14.5); WHITE BLOOD COUNT 8.6 10^3/uL (4.3-11.0)
[2019-03-06 06:32] LABS: ALANINE AMINOTRANSFERASE 16 U/L (0-55); ALKALINE PHOSPHATASE 102 U/L (40-136); BILIRUBIN,TOTAL 0.2 MG/DL (0.1-1.0); BUN/CREATININE RATIO 6; CALCIUM 8.9 MG/DL (8.5-10.1); CARBON DIOXIDE 22 MMOL/L (21-32); CHLORIDE 106 MMOL/L (98-107); CREATININE SERUM 0.62 MG/DL (0.60-1.30); GFR ESTIMATED > 60; GLUCOSE 141 MG/DL (70-105); POTASSIUM 3.1 MMOL/L (3.6-5.0); SODIUM 138 MMOL/L (135-145); TOTAL PROTEIN 6.9 GM/DL (6.4-8.2)
[2019-03-06] MEDS: inSUlin ASPART (NovoLOG) 1 UNIT/0.01 ML (CHARGE PER UNIT) SC SCH ×4 (06:37→20:48)
[2019-03-06] MEDS: RT-ALBUTEROL/IPRATROPIUM 3 ML (DUONEB) VIAL INH SCH ×2 (07:43→21:20)
[2019-03-06 08:00] VITALS: BP 149/90
[2019-03-06] MEDS: ALPRAZolam 0.5 MG (XANAX) TAB PO PRN ×2 (09:04→20:59)
[2019-03-06] MEDS: LORATADINE (CLARITIN) 10 MG TAB PO SCH (09:04)
[2019-03-06] MEDS: BACLOFEN 10 MG (LIORESAL) TAB PO SCH ×3 (09:04→21:00)
[2019-03-06] MEDS: MIDODRINE 10 MG (PROAMATINE) TAB PO SCH ×3 (09:04→20:59)
[2019-03-06] MEDS: COLLAGENASE 30 GM (SANTYL) TUBE TP SCH ×2 (09:08→19:30)
[2019-03-06] MEDS: DAKIN'S 1/4 STRENGTH (0.125%) 473 ML BTL TOP SCH (09:09)
[2019-03-06] MEDS: MICONAZOLE 2% POWDER (DESENEX AF) 90 GM TOP SCH ×2 (09:09→21:02)
--- NOTE | 2019-03-06 09:29 | Progress Note - Hospitalist ---
GIDEON ZAFAR [facility] 03/06/19 0929: Subjective HPI/CC On Admission Date Seen by Provider: Mar 06, 2019 Time Seen by Provider: 08:30 This is an unfortunate 53-year-old white male with a partial C3 quadriplegia from a fall. The patient is brought to the emergency room with a fever and hypersomnolence. Patient is febrile with an elevated white count. CT shows probable osteomyelitis secondary to a decubitus ulcer on the sacrum. He is being admitted with presumed sepsis from the sacral ulcer and osteomyelitis. Patient is super somnolent and unable to give me any additional history. is not present. He has been given Narcan without awakening. ABG is pending Subjective/Events-last exam pt very groggy this AM states he does not remember much from yesterday has been voiding and having BMs normally Ate breakfast this AM Denies any pain Seen by Dr. Matias yesteday, will do debridement possibly on tuesday Review of Systems HEENT: No Head Aches Pulmonary: No Dyspnea, No Cough Cardiovascular: Palpitations; No: Chest Pain Gastrointestinal: No: Nausea, Vomiting, Diarrhea, Constipation Genitourinary: Incontinence Focused Exam Lactate Level 03/03/19 10:45: Lactic Acid Level 2.13*H 03/03/19 15:35: Lactic Acid Level 1.40 Objective Exam Vital Signs Vital Signs Date Time Temp Pulse Resp B/P (MAP) Pulse Ox O2 Delivery O2 Flow Rate FiO2 03/06/19 08:00 36.4 61 20 149/90 98 Room Air 03/05/19 08:59 1.00 Capillary Refill : Less Than 3 SecondsLess Than 3 Seconds General Appearance: No Apparent Distress, WD/WN, Other (slow to answer questions) Respiratory: Chest Non Tender, Lungs Clear, Normal Breath Sounds Cardiovascular: Regular Rate, Rhythm Neurologic/Psychiatric: Alert, Oriented x3 Results/Procedures Lab Laboratory Tests 03/06/19 05:51 Patient resulted labs reviewed. Imaging: Reviewed Imaging Report Assessment/Plan Assessment and Plan Assess & Plan/Chief Complaint Assessment & Plan sepsis Chronic pain C3 partial paraplegia Polysubstance abuse HTN Decubitus ulcer-Dr. Matias Evaluated, Will discuss with pt and family and plan for possibly Tuesday Clinical Quality Measures DVT/VTE Risk/Contraindication: Risk Factor Score Per Nursin RFS Level Per Nursing on Admit: 4+=Very High PAOLA GAN DO 03/06/192107: Subjective Subjective/Events-last exam Debridement scheduled for Tuesday by Dr. García. Vanc and gram negative antibiotic coverage maintained. Denies any other significant problems. Checked meds and labs. Pt completely dependent on nursing care due to quadriplegia. [facility] likely will not take Pt to the retirement because he has left against medical advice too many times at the hospital. Assessment/Plan Assessment and Plan Assess & Plan/Chief Complaint Debridement tomorrow Diagnosis/Problems Diagnosis/Problems (1) Quadriplegia Status: Acute (2) Decubitus ulcer of coccygeal region, stage 4 Status: Chronic (3) Fecal incontinence Status: Acute (4) Neurogenic bowel Status: Acute (5) Marijuana use Status: Acute (6) History of illicit drug use Status: Acute (7) Paresthesias Status: Acute (8) Uncontrolled diabetes mellitus Status: Chronic (9) Illicit drug use Status: Chronic (10) Hypertension Status: Chronic (11) Type 2 diabetes mellitus with hyperglycemia Status: Chronic (12) Chronic pain Status: Chronic Permanent Comment: Low back pain Last Edited By: Georgia Zambrano on Sep 03 18 12:27 (13) HLD (hyperlipidemia) Status: Chronic (14) DVT prophylaxis Status: Acute (15) COPD (chronic obstructive pulmonary disease) Status: Chronic (16) Anemia Status: Chronic (17) Anxiety Status: Chronic (18) Incontinence of feces Status: Chronic (19) Neurogenic bladder Status: Chronic (20) Spinal cord injury at C1-C4 level Status: Chronic (21) Sepsis Status: Acute (22) PEG (percutaneous endoscopic gastrostomy) status Supervisory-Addendum Brief Verification & Attestation Participated in pt care: history, MDM, physical Personally performed: exam, history, MDM, supervision of care Care discussed with: Medical Student Procedures: n/a Results interpretation: Verified all documentation Verification and Attestation of Medical Student E/M Service A medical student performed and documented this service in my presence. I r eviewed and verified all information documented by the medical student and made modifications to such information, when appropriate. I personally performed the physical exam and medical decision making. Paola Gan, Mar 06, 2019,21:08 GIDEON ZAFAR [facility] Mar 06, 2019 09:29 PAOLA GAN DO Mar 06, 2019 21:08
[2019-03-06] MEDS: FAMOTIDINE 20 MG (PEPCID) TABLET PO SCH ×2 (09:37→20:59)
--- NOTE | 2019-03-06 11:17 | Progress Note - Surgery ---
JUICE SAMSON,MED STUDENT 03/06/19 1117: Subjective Date Seen by a Provider: Mar 06, 2019 Time Seen by a Provider: 10:45 Subjective/Events-last exam Pt tearful when I entered the room. States he is feeling down about his condition and current state. Has some sensation in his sacral region but does not have any pain at rest. States his dressing was changed today and he is being moved regularly. Conferred with his nurse and they state his wound has not improved since yesterday and now has some odor. Pt has no other complaints at this time. Focused Exam Lactate Level 03/03/19 15:35: Lactic Acid Level 1.40 Objective Exam Vital Signs Date Time Temp Pulse Resp B/P (MAP) Pulse Ox O2 Delivery O2 Flow Rate FiO2 03/06/19 08:55 Room Air 03/06/19 08:00 36.4 61 20 149/90 98 Room Air 03/06/19 03:20 37.6 72 18 106/80 95 Room Air 03/06/19 00:16 36.5 60 18 131/75 97 Room Air 03/05/19 20:55 Room Air 03/05/19 19:27 37.7 63 20 178/89 97 Room Air 03/05/19 16:00 37.0 63 16 182/89 96 Room Air 03/05/19 12:00 37.0 60 20 162/91 Room Air I & O 03/06/19 07:00 Intake Total 4315.0 ml Output Total 5025 ml Balance -710.0 ml Capillary Refill : Less Than 3 SecondsLess Than 3 Seconds General Appearance: WD/WN, Chronically ill, Mild Distress HEENT: PERRL/EOMI Neck: Limited Range of Motion, Tender Lateral (over shoulders) Respiratory: Chest Non Tender, Lungs Clear, Normal Breath Sounds Cardiovascular: Regular Rate, Rhythm Peripheral Pulses: 2+ Dorsalis Pedis (R), 2+ Left Dors-Pedis (L), 2+ Radial Pulses (R), 2+ Radial Pulses (L) Gastrointestinal: non tender, distended (his normal ) Extremity: Normal Capillary Refill, Other (partial quadriplegia. SCDs in place. Tegaderm dressings over heels b/l ) Neurologic/Psychiatric: Alert, Oriented x3, Depressed Affect Skin: Warm/Dry, Pallor, Other (decubitus ulcer with necrotic area; which looks worse than when seen in clinic ) Lymphatic: No Adenopathy (Supra/infraclavicular, cervical ) Results Lab Laboratory Tests 03/05/19 15:44: Glucometer 226H 03/05/19 20:19: Glucometer 201H 03/06/19 05:51: White Blood Count 8.6, Red Blood Count 3.72L, Hemoglobin 10.3L, Hematocrit 32L, Mean Corpuscular Volume 86, Mean Corpuscular Hemoglobin 28, Mean Corpuscular Hemoglobin Concent 32, Red Cell Distribution Width 14.3, Platelet Count 301, Mean Platelet Volume 8.2, Neutrophils (%) (Auto) 60, Lymphocytes (%) (Auto) 27, Monocytes (%) (Auto) 12, Eosinophils (%) (Auto) 1, Basophils (%) (Auto) 0, Neutrophils # (Auto) 5.2, Lymphocytes # (Auto) 2.3, Monocytes # (Auto) 1.0, Eosinophils # (Auto) 0.1, Basophils # (Auto) 0.0, Sodium Level 138, Potassium Level 3.1L, Chloride Level 106, Carbon Dioxide Level 22, Anion Gap 10, Blood Urea Nitrogen 4L, Creatinine 0.62, Estimat Glomerular Filtration Rate > 60, BUN/Creatinine Ratio 6, Glucose Level 141H, Calcium Level 8.9, Corrected Calcium 9.7, Total Bilirubin 0.2, Aspartate Amino Transf (AST/SGOT) 19, Alanine Aminotransferase (ALT/SGPT) 16, Alkaline Phosphatase 102, Total Protein 6.9, Albumin 3.0L Microbiology 03/03/19 Blood Culture - Preliminary, Resulted No growth 03/03/19 Influenza Types A,B Antigen (CITLALY) - Final, Complete 03/03/19 Urine Culture - Final, Complete NO GROWTH 03/03/19 Gram Stain - Final, Complete 03/03/19 Wound Culture - Final, Complete Mixed Bacterial Rin Pseudomonas aeruginosa Assessment/Plan Assessment/Plan Assessment/Plan Sacral decubitus ulcer Pt understands need for surgical debridement. Will discuss this patient today and plan for possibly Tuesday. Clinical Quality Measures DVT/VTE Risk/Contraindication: Risk Factor Score Per Nursin RFS Level Per Nursing on Admit: 4+=Very High EDMUND GARCÍA DO 03/06/19 1411: Subjective Time Seen by a Provider: 13:00 Subjective/Events-last exam Pt doing better, asking about surgery. Assessment/Plan Assessment/Plan Assessment/Plan Will make pt NPO after midnight, obtain consent for debridement, he is scheduled for tomorrow. Supervisory-Addendum Brief Verification & Attestation Participated in pt care: history, MDM, physical Personally performed: exam, history, MDM Care discussed with: Medical Student Procedures: n/a Verification and Attestation of Medical Student E/M Service A medical student performed and documented this service in my presence. I reviewed and verified all information documented by the medical student and made modifications to such information, when appropriate. I personally performed the physical exam and medical decision making. Edmund García, Mar 06, 2019,14:09 JUICE SAMSON,MED STUDENT Mar 06, 2019 11:17 EDMUND GARCÍA DO Mar 06, 2019 14:11
[2019-03-06 12:00] VITALS: BP 161/79
[2019-03-06] MEDS: HYDROcodone/APAP 5 MG/325 MG (LORTAB) TAB PO PRN ×2 (13:20→18:22)
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
[2019-03-06 16:37] VITALS: BP 186/81
[2019-03-06 19:46] VITALS: BP 188/91
[2019-03-06] MEDS: QUEtiapine 100 MG (SEROquel) TAB IMMEDIATE RELEASE PO SCH (20:59)
[2019-03-06] MEDS: MONTELUKAST 10 MG (SINGULAIR) TAB PO SCH (20:59)
[2019-03-06] MEDS: MELATONIN 3 MG TABLET PO SCH (20:59)
[2019-03-07] VITALS (8 sets, daily range): BP systolic 74–134; BP diastolic 45–82
[2019-03-07] MEDS: HYDROcodone/APAP 5 MG/325 MG (LORTAB) TAB PO PRN ×2 (00:02→16:20)
[2019-03-07] MEDS: PIPERACILLIN/TAZO 4.5 GM/NS 100 ML IV SCH ×4 (01:07→08:05)
[2019-03-07] MEDS: KCL 10 MEQ TAB (MICRO K) PO SCH (05:26)
[2019-03-07] MEDS: VANCOMYCIN 750 MG/NS 250 ML IVPB IV SCH ×2 (05:28)
[2019-03-07] MEDS: inSUlin ASPART (NovoLOG) 1 UNIT/0.01 ML (CHARGE PER UNIT) SC SCH ×4 (05:33→21:04)
[2019-03-07 06:44] LABS: BASOPHILS % (AUTO) 0 % (0-10); EOSINOPHILS # (AUTO) 0.1 10^3/uL (0.0-0.3); EOSINOPHILS % (AUTO) 1 % (0-10); HEMATOCRIT 32 % (40-54); HEMOGLOBIN 10.3 G/DL (13.3-17.7); LYMPHOCYTES # (AUTO) 2.7 X 10^3 (1.0-4.0); LYMPHOCYTES % (AUTO) 34 % (12-44); MEAN CORPUSCULAR HEMOGLOBIN 28 PG (25-34); MEAN CORPUSCULAR HGB CONC 32 G/DL (32-36); MEAN CORPUSCULAR VOLUME 86 FL (80-99); MEAN PLATELET VOLUME 7.9 FL (7.4-10.4); MONOCYTES # (AUTO) 0.9 X 10^3 (0.0-1.0); MONOCYTES % (AUTO) 11 % (0-12); NEUTROPHILS # (AUTO) 4.2 X 10^3 (1.8-7.8); NEUTROPHILS % (AUTO) 53 % (42-75); PLATELET COUNT 301 10^3/uL (130-400); RED CELL DISTRIBUTION WIDTH 14.9 % (10.0-14.5); WHITE BLOOD COUNT 7.8 10^3/uL (4.3-11.0)
[2019-03-07 06:58] LABS: ALANINE AMINOTRANSFERASE 18 U/L (0-55); ALBUMIN 3.1 GM/DL (3.2-4.5); ALKALINE PHOSPHATASE 97 U/L (40-136); BILIRUBIN,TOTAL 0.1 MG/DL (0.1-1.0); BUN/CREATININE RATIO 12; CARBON DIOXIDE 23 MMOL/L (21-32); CHLORIDE 106 MMOL/L (98-107); CREATININE SERUM 0.58 MG/DL (0.60-1.30); GFR ESTIMATED > 60; GLUCOSE 111 MG/DL (70-105); POTASSIUM 3.3 MMOL/L (3.6-5.0); SODIUM 137 MMOL/L (135-145); TOTAL PROTEIN 6.9 GM/DL (6.4-8.2)
[2019-03-07] MEDS: RT-ALBUTEROL/IPRATROPIUM 3 ML (DUONEB) VIAL INH SCH ×2 (07:40→18:58)
--- NOTE | 2019-03-07 07:41 | Progress Note - Hospitalist ---
GIDEON ZAFAR [facility] 03/07/19 0741: Subjective HPI/CC On Admission Date Seen by Provider: Mar 07, 2019 Time Seen by Provider: 07:34 This is an unfortunate 53-year-old white male with a partial C3 quadriplegia from a fall. The patient is brought to the emergency room with a fever and hypersomnolence. Patient is febrile with an elevated white count. CT shows probable osteomyelitis secondary to a decubitus ulcer on the sacrum. He is being admitted with presumed sepsis from the sacral ulcer and osteomyelitis. Patient is super somnolent and unable to give me any additional history. is not present. He has been given Narcan without awakening. ABG is pending Subjective/Events-last exam Denies depressed mood this AM Tired Hasn't slept well 2/2 beeping from med pump Was tearful and upset about his current situation and his injury yesterday; he says he feels better today Seen by social research assistant who recommend behavioral health eval Consent form for debridement was obtained yesterday Plan for Debridement today, pt NPO today per Dr. García Review of Systems General: Other (Tired, didnt sleep well last night 2/2 beeping from med pump) HEENT: No Head Aches Cardiovascular: No: Chest Pain, Palpitations Gastrointestinal: No: Nausea, Vomiting Objective Exam Vital Signs Vital Signs Date Time Temp Pulse Resp B/P (MAP) Pulse Ox O2 Delivery O2 Flow Rate FiO2 03/07/19 07:48 36.2 58 20 134/82 (99) 95 Room Air 03/05/19 08:59 1.00 Capillary Refill : Less Than 3 SecondsLess Than 3 Seconds General Appearance: No Apparent Distress, Other (slightly depressed mood) HEENT: PERRL/EOMI Neck: Normal Inspection Respiratory: Chest Non Tender, Lungs Clear, Normal Breath Sounds, No Accessory Muscle Use, No Respiratory Distress Cardiovascular: Regular Rate, Rhythm, No Edema, No Gallop, No JVD, No Murmur, Normal Peripheral Pulses Neurologic/Psychiatric: Alert, Oriented x3 Skin: Other (decubitus ulcer to sacrum) Results/Procedures Lab Laboratory Tests 03/07/19 06:15 Patient resulted labs reviewed. Imaging: Reviewed Imaging Report Assessment/Plan Assessment and Plan Assess & Plan/Chief Complaint Assessment & Plan sepsis Chronic pain C3 partial paraplegia Polysubstance abuse HTN Continue meds Decubitus ulcer Debridement today Depressed mood Psych eval Clinical Quality Measures DVT/VTE Risk/Contraindication: Risk Factor Score Per Nursin RFS Level Per Nursing on Admit: 4+=Very High PAOLA GAN DO 03/07/192117: Subjective Subjective/Events-last exam Psych evaluation has been agreed upon and will likely perform it on Tuesday Will be going to surgery today Overall has flat affect but denies any pain Zamarripa catheter maintained All antibiotics were discontinued since there is no sores and decubitus ulcer just need debrided Assessment/Plan Assessment and Plan Assess & Plan/Chief Complaint Debridement today Monitor pain Supervisory-Addendum Brief Verification & Attestation Participated in pt care: history, MDM, physical Personally performed: exam, history, MDM, supervision of care Care discussed with: Medical Student Procedures: n/a Results interpretation: Verified all documentation Verification and Attestation of Medical Student E/M Service A medical student performed and documented this service in my presence. I reviewed and verified all information documented by the medical student and made modifications to such information, when appropriate. I personally performed the physical exam and medical decision making. Paola Gan, Mar 07, 2019,21:18 GIDEON ZAFAR [facility] Mar 07, 2019 07:41 PAOLA GAN DO Mar 07, 2019 21:18
[2019-03-07] MEDS: LORATADINE (CLARITIN) 10 MG TAB PO SCH (08:02)
[2019-03-07] MEDS: MIDODRINE 10 MG (PROAMATINE) TAB PO SCH ×3 (08:02→21:02)
[2019-03-07] MEDS: BACLOFEN 10 MG (LIORESAL) TAB PO SCH ×3 (08:02→20:56)
[2019-03-07] MEDS: FAMOTIDINE 20 MG (PEPCID) TABLET PO SCH ×2 (08:02→20:54)
[2019-03-07] MEDS: MICONAZOLE 2% POWDER (DESENEX AF) 90 GM TOP SCH ×2 (08:05→20:54)
[2019-03-07] MEDS: COLLAGENASE 30 GM (SANTYL) TUBE TP SCH ×2 (08:05→20:55)
[2019-03-07] MEDS: DAKIN'S 1/4 STRENGTH (0.125%) 473 ML BTL TOP SCH (08:05)
[2019-03-07] MEDS ORDERED: LACTATED RINGERS 1,000 ML IV PRN (09:32)
[2019-03-07] MEDS ORDERED: PROPOFOL INJECTION 50 ML IV ONE (10:35)
[2019-03-07] MEDS ORDERED: MIDAZOLAM 2 MG/2 ML (VERSED) VIAL ONE (10:47)
[2019-03-07] MEDS ORDERED: LIDOCAINE PF 2% 5 ML (XYLOCAINE) VIAL ONE (10:49)
[2019-03-07] MEDS ORDERED: BUP/EPI 0.25% 1:200,000 (MARCAINE) 10 ML VIAL IJ ONE (11:37)
[2019-03-07] MEDS ORDERED: fentaNYL INJECTION 100 MCG/2 ML AMP ONE (12:39)
--- NOTE | 2019-03-07 12:45 | Progress Note-Pre Operative ---
Pre-Operative Progress Note H&P Reviewed The H&P was reviewed, patient examined and no changes noted. Time Seen by Provider: 12:37 Date H&P Reviewed: Mar 07, 2019 Time H&P Reviewed: 12:38 Pre-Operative Diagnosis: Necrotic Tissue in Sacral Decub EDMUND ALAMO DO Mar 07, 2019 12:45
--- NOTE | 2019-03-07 13:03 | Progress Note-Post Operative ---
Post-Operative Progess Note Surgeon (s)/Rfid Systems Architect (s) Surgeon EDMUND ALAMO DO Rfid Systems Architect: none Pre-Operative Diagnosis Necrotic Tissue in Sacral Decub Post-Operative Diagnosis same Procedure & Operative Findings Date of Procedure 03/07/19 Procedure Performed/Findings Sharp Debridement of Necrotic tissue Anesthesia Type MAC Estimated Blood Loss Estimated blood loss (mL): less than 5ml Specimens/Packing Specimens Removed necrotic tissue EDMUND ALAMO DO Mar 07, 2019 13:03
--- NOTE | 2019-03-07 13:40 | NUR ---
pt back to room from PACU.
--- NOTE | 2019-03-07 14:34 | Anesthesia-General Post-Op ---
MAC Patient Condition Mental Status/LOC: Same as Preop Cardiovascular: Satisfactory Nausea/Vomiting: Absent Respiratory: Satisfactory Pain: Controlled Complications: Absent Post Op Complications Complications None Follow Up Care/Instructions Patient Instructions None needed. Anesthesiology Discharge Order Discharge Order Patient is doing well, no complaints, stable vital signs, no apparent adverse anesthesia problems. No complications reported per nursing. KILO DE LUNA CRNA Mar 07, 2019 14:34
[2019-03-07] MEDS: ENOXAPARIN 40 MG/0.4 ML (LOVENOX) SYR SC SCH (19:43)
[2019-03-07] MEDS: QUEtiapine 100 MG (SEROquel) TAB IMMEDIATE RELEASE PO SCH (20:53)
[2019-03-07] MEDS: ALPRAZolam 0.5 MG (XANAX) TAB PO PRN (20:53)
[2019-03-07] MEDS: MELATONIN 3 MG TABLET PO SCH (20:53)
[2019-03-07] MEDS: MONTELUKAST 10 MG (SINGULAIR) TAB PO SCH (20:54)
[2019-03-07] MEDS: diphenhydrAMINE 25 MG TAB (BENADRYL) PO PRN (20:54)
--- NOTE | 2019-03-08 00:12 | OPERATIVE REPORT ---
DATE OF SERVICE: PREOPERATIVE DIAGNOSIS: Necrotic tissue of the sacral decubitus ulcer. POSTOPERATIVE DIAGNOSIS: Necrotic tissue of the sacral decubitus ulcer. PROCEDURE: Debridement of necrotic tissue. Sharp dissection with Bovie electrocautery. SURGEON: Maciel García DO. ACID PATROLLER: None. ANESTHESIA: MAC. SPECIMEN: Portions of necrotic tissue debrided in the area, the decubitus ulcer itself was 8.5 cm long x 5 cm wide x 4 cm deep and debrided all along the edges as well as on the floor of the ulcer, right on top of the sacrum, removed probably greater than 60 square cm of necrotic tissue. BLOOD LOSS: Less than 5 mL. FLUIDS: Per anesthesia. POSTOPERATIVE CONDITION: Stable. INDICATION FOR PROCEDURE: The patient is a 53-year-old male who unfortunately has some necrotic tissue. FINDINGS: The patient had necrotic tissue of the sacral decubitus ulcer debrided along the edges. It was of this decubitus ulcer was 8.5 cm long x 5 cm wide x 4 cm deep and debridement carried along right along the sacrum. PROCEDURE NOTE: After informed consent was obtained, the patient was brought to the operating room, placed on the table in supine position. He was sterilely prepped and draped in normal fashion. I used sharp debridement with the Bovie electrocautery on cut section to cut edges of the sacral decubitus ulcer, cut them out, used cutting all the tissue down to good bleeding healthy tissue. This decubitus ulcer is about 8 cm long by about 5 cm wide and about 4 cm deep, went along both sides and all the way down to the base and on the left and right bottom portion, the necrotic tissue went deeper under this area. Had to cut this out, so that edge was a little bit longer and then all along the bottom portion. There was necrotic tissue as well as right on top of the sacrum. Removed all the necrotic tissue. Hemostasis obtained using Bovie electrocautery. Copiously irrigated with normal saline and then packed this incision open. The patient tolerated the procedure and transferred to recovery room in stable condition. Sponge, instrument and needle count correct at the end of the case. Job ID: [id number] DocumentID: [id number] Dictated Date: 03/07/2019 15:07:51 [place] Attacher Date: 03/08/2019 00:11:43 Dictated By: MACIEL GARCÍA DO [facility]
[2019-03-08 00:30] VITALS: BP 110/67
[2019-03-08 05:25] LABS: BASOPHILS % (AUTO) 0 % (0-10); EOSINOPHILS # (AUTO) 0.1 10^3/uL (0.0-0.3); EOSINOPHILS % (AUTO) 0 % (0-10); HEMATOCRIT 32 % (40-54); HEMOGLOBIN 10.3 G/DL (13.3-17.7); LYMPHOCYTES # (AUTO) 2.1 X 10^3 (1.0-4.0); LYMPHOCYTES % (AUTO) 17 % (12-44); MEAN CORPUSCULAR HEMOGLOBIN 28 PG (25-34); MEAN CORPUSCULAR HGB CONC 32 G/DL (32-36); MEAN CORPUSCULAR VOLUME 86 FL (80-99); MEAN PLATELET VOLUME 8.2 FL (7.4-10.4); MONOCYTES # (AUTO) 1.2 X 10^3 (0.0-1.0); MONOCYTES % (AUTO) 9 % (0-12); NEUTROPHILS # (AUTO) 9.2 X 10^3 (1.8-7.8); NEUTROPHILS % (AUTO) 73 % (42-75); PLATELET COUNT 274 10^3/uL (130-400); RED CELL DISTRIBUTION WIDTH 14.8 % (10.0-14.5); WHITE BLOOD COUNT 12.5 10^3/uL (4.3-11.0)
[2019-03-08] MEDS: inSUlin ASPART (NovoLOG) 1 UNIT/0.01 ML (CHARGE PER UNIT) SC SCH ×4 (05:45→20:36)
[2019-03-08 05:53] LABS: ALANINE AMINOTRANSFERASE 21 U/L (0-55); ALBUMIN 3.3 GM/DL (3.2-4.5); ALKALINE PHOSPHATASE 88 U/L (40-136); BILIRUBIN,TOTAL 0.2 MG/DL (0.1-1.0); BUN/CREATININE RATIO 13; CALCIUM 9.6 MG/DL (8.5-10.1); CARBON DIOXIDE 23 MMOL/L (21-32); CHLORIDE 105 MMOL/L (98-107); CREATININE SERUM 0.61 MG/DL (0.60-1.30); GFR ESTIMATED > 60; GLUCOSE 98 MG/DL (70-105); POTASSIUM 3.6 MMOL/L (3.6-5.0); SODIUM 139 MMOL/L (135-145)
[2019-03-08] MEDS: KCL 10 MEQ TAB (MICRO K) PO SCH (05:53)
[2019-03-08] MEDS: RT-ALBUTEROL/IPRATROPIUM 3 ML (DUONEB) VIAL INH SCH ×2 (08:24→19:35)
[2019-03-08] MEDS: BACLOFEN 10 MG (LIORESAL) TAB PO SCH ×3 (08:42→20:49)
[2019-03-08] MEDS: HYDROcodone/APAP 5 MG/325 MG (LORTAB) TAB PO PRN ×3 (08:42→20:47)
[2019-03-08] MEDS: FAMOTIDINE 20 MG (PEPCID) TABLET PO SCH ×2 (08:43→20:48)
[2019-03-08] MEDS: MIDODRINE 10 MG (PROAMATINE) TAB PO SCH ×3 (08:43→20:48)
[2019-03-08] MEDS: LORATADINE (CLARITIN) 10 MG TAB PO SCH (08:47)
[2019-03-08 08:49] VITALS: BP 139/83
[2019-03-08] MEDS: ALPRAZolam 0.5 MG (XANAX) TAB PO PRN ×2 (08:53→20:49)
[2019-03-08] MEDS: DAKIN'S 1/4 STRENGTH (0.125%) 473 ML BTL TOP SCH (08:54)
[2019-03-08] MEDS: COLLAGENASE 30 GM (SANTYL) TUBE TP SCH ×2 (08:55→20:50)
[2019-03-08] MEDS: MICONAZOLE 2% POWDER (DESENEX AF) 90 GM TOP SCH ×2 (08:55→20:49)
--- NOTE | 2019-03-08 09:31 | Progress Note - Surgery ---
Subjective Time Seen by a Provider: 09:12 Subjective/Events-last exam Pt seen and examined, no complaints. He is eating without difficulty. Review of Systems General: No Chills, No Night Sweats Cardiovascular: No: Chest Pain, Palpitations Objective Exam Vital Signs Date Time Temp Pulse Resp B/P (MAP) Pulse Ox O2 Delivery O2 Flow Rate FiO2 03/08/19 08:49 37.6 82 20 139/83 (101) 99 Room Air 03/08/19 08:24 97 Room Air 03/08/19 00:30 36.2 67 17 110/67 (81) 97 Room Air 03/07/19 20:00 Room Air 03/07/19 18:58 97 Room Air 03/07/19 15:58 36.4 74 20 101/63 (76) 97 Room Air 03/07/19 13:40 Room Air 03/07/19 13:40 37.0 20 120/70 (87) 96 Room Air 03/07/19 13:30 20 112/64 (80) 96 Room Air 03/07/19 13:30 Room Air 03/07/19 13:20 20 112/64 (80) 98 Room Air 03/07/19 13:15 Room Air 03/07/19 13:10 20 94/60 (71) 98 Room Air 03/07/19 13:09 37.0 16 74/45 (55) 99 Room Air 03/07/19 13:09 Room Air I & O 03/08/19 07:00 Intake Total 1140 ml Output Total 1925 ml Balance -785 ml Capillary Refill : Less Than 3 SecondsLess Than 3 Seconds General Appearance: No Apparent Distress, Other (slightly depressed mood) HEENT: PERRL/EOMI Respiratory: Chest Non Tender, Lungs Clear, Normal Breath Sounds, No Accessory Muscle Use, No Respiratory Distress Cardiovascular: Regular Rate, Rhythm, No Murmur Peripheral Pulses: 2+ Dorsalis Pedis (R), 2+ Left Dors-Pedis (L), 2+ Radial Pulses (R), 2+ Radial Pulses (L) Gastrointestinal: non tender, distended (his normal ) Extremity: Other (partial quadriplegia. SCDs in place. Tegaderm dressings over heels b/l ) Neurologic/Psychiatric: Alert, Oriented x3 Results Lab Laboratory Tests 03/07/19 11:11: Glucometer 115H 03/07/19 15:58: Glucometer 95 03/07/19 21:03: Glucometer 133H 03/08/19 05:00: White Blood Count 12.5H, Red Blood Count 3.70L, Hemoglobin 10.3L, Hematocrit 32L , Mean Corpuscular Volume 86, Mean Corpuscular Hemoglobin 28, Mean Corpuscular Hemoglobin Concent 32, Red Cell Distribution Width 14.8H, Platelet Count 274, Mean Platelet Volume 8.2, Neutrophils (%) (Auto) 73, Lymphocytes (%) (Auto) 17, Monocytes (%) (Auto) 9, Eosinophils (%) (Auto) 0, Basophils (%) (Auto) 0, Neutrophils # (Auto) 9.2H, Lymphocytes # (Auto) 2.1, Monocytes # (Auto) 1.2H, Eosinophils # (Auto) 0.1, Basophils # (Auto) 0.0, Sodium Level 139, Potassium Level 3.6, Chloride Level 105, Carbon Dioxide Level 23, Anion Gap 11, Blood Urea Nitrogen 8, Creatinine 0.61, Estimat Glomerular Filtration Rate > 60, BUN/Creatinine Ratio 13, Glucose Level 98, Calcium Level 9.6, Corrected Calcium 10.2H, Total Bilirubin 0.2, Aspartate Amino Transf (AST/SGOT) 32, Alanine Aminotransferase (ALT/SGPT) 21, Alkaline Phosphatase 88, Total Protein 7.0, Alb umin 3.3 03/08/19 05:44: Glucometer 105 Microbiology 03/03/19 Blood Culture - Preliminary, Resulted No growth 03/03/19 Influenza Types A,B Antigen (CITLALY) - Final, Complete 03/03/19 Urine Culture - Final, Complete NO GROWTH 03/03/19 Gram Stain - Final, Complete 03/03/19 Wound Culture - Final, Complete Mixed Bacterial Rin Pseudomonas aeruginosa Assessment/Plan Assessment/Plan Assessment/Plan S/P Debridement of Sacral Decub Continue Dakins dressings, will talk to wound care team about starting a wound VAC. Clinical Quality Measures DVT/VTE Risk/Contraindication: Risk Factor Score Per Nursin RFS Level Per Nursing on Admit: 4+=Very High EDMUND ALAMO DO Mar 08, 2019 09:31
--- NOTE | 2019-03-08 11:09 | Progress Note - Hospitalist ---
[facility] 03/08/19 1109: Subjective HPI/CC On Admission Date Seen by Provider: Mar 08, 2019 Time Seen by Provider: 11:06 This is an unfortunate 53-year-old white male with a partial C3 quadriplegia from a fall. The patient is brought to the emergency room with a fever and hypersomnolence. Patient is febrile with an elevated white count. CT shows probable osteomyelitis secondary to a decubitus ulcer on the sacrum. He is being admitted with presumed sepsis from the sacral ulcer and osteomyelitis. Patient is super somnolent and unable to give me any additional history. is not present. He has been given Narcan without awakening. ABG is pending Subjective/Events-last exam S/p Sacral decub ulcer debridement Recovering as expected Mild confusion this AM: keeps saying "I need to lay down to get some sleep" while he is already laying down on the bed Mildly agitated Nl metabolic panel Hgb no change from last 3 days @ 10.3 Denies pain large amount of drainage and bleeding from wound Review of Systems General: No Chills Pulmonary: No Dyspnea, No Cough Cardiovascular: No: Chest Pain, Palpitations Gastrointestinal: No: Nausea, Vomiting Objective Exam Vital Signs Vital Signs Date Time Temp Pulse Resp B/P (MAP) Pulse Ox O2 Delivery O2 Flow Rate FiO2 03/08/19 08:49 37.6 82 20 139/83 (101) 99 Room Air 03/05/19 08:59 1.00 Capillary Refill : Less Than 3 SecondsLess Than 3 Seconds General Appearance: No Apparent Distress, Other (midly agitated and confused) HEENT: Normal ENT Inspection Neck: Normal Inspection Respiratory: Chest Non Tender, Lungs Clear, Normal Breath Sounds, No Accessory Muscle Use, No Respiratory Distress Cardiovascular: Regular Rate, Rhythm, No Edema, No Gallop, No JVD, No Murmur, Normal Peripheral Pulses Extremity: Other (sacral wound, dressing in place) Results/Procedures Lab Laboratory Tests 03/08/19 05:00 Patient resulted labs reviewed. Imaging: Reviewed Imaging Report Assessment/Plan Assessment and Plan Assess & Plan/Chief Complaint Assessment & Plan sepsis Chronic pain C3 partial paraplegia Polysubstance abuse HTN Continue meds Decubitus ulcer Debridement yesterday Per Dr. Cartwright: continue Dakin dressings, start wound VAC Depressed mood Psych eval Confusion Monitor mentation Clinical Quality Measures DVT/VTE Risk/Contraindication: Risk Factor Score Per Nursin RFS Level Per Nursing on Admit: 4+=Very High PAOLA GAN DO 03/08/192122: Subjective Subjective/Events-last exam Had debridement yesterday. White count of 12. Trying to eat his breakfast since he has to be fed. BP remains stable. Continue home meds. Will evaluate the next step for the wound with Dr. García. Assessment/Plan Assessment and Plan Assess & Plan/Chief Complaint Debridement wound management Diagnosis/Problems Diagnosis/Problems (1) Quadriplegia Status: Acute (2) Decubitus ulcer of coccygeal region, stage 4 Status: Chronic Supervisory-Addendum Brief Verification & Attestation Participated in pt care: history, MDM, physical Personally performed: exam, history, MDM, supervision of care Care discussed with: Medical Student Procedures: n/a Results interpretation: Verified all documentation Verification and Attestation of Medical Student E/M Service A medical student performed and documented this service in my presence. I reviewed and verified all information documented by the medical student and made modifications to such information, when appropriate. I personally performed the physical exam and medical decision making. Paola Gan, Mar 08, 2019,21:23 [facility] Mar 08, 2019 11:09 PAOLA GAN DO Mar 08, 2019 21:23
[2019-03-08 16:35] VITALS: BP 116/65
[2019-03-08] MEDS: ENOXAPARIN 40 MG/0.4 ML (LOVENOX) SYR SC SCH (17:36)
[2019-03-08] MEDS: MONTELUKAST 10 MG (SINGULAIR) TAB PO SCH (20:48)
[2019-03-08] MEDS: diphenhydrAMINE 25 MG TAB (BENADRYL) PO PRN (20:48)
[2019-03-08] MEDS: QUEtiapine 100 MG (SEROquel) TAB IMMEDIATE RELEASE PO SCH (20:49)
[2019-03-08] MEDS: MELATONIN 3 MG TABLET PO SCH (20:49)
[2019-03-08 23:36] VITALS: BP 124/72
[2019-03-09] MEDS: HYDROcodone/APAP 5 MG/325 MG (LORTAB) TAB PO PRN ×2 (03:06→17:10)
[2019-03-09] MEDS: KCL 10 MEQ TAB (MICRO K) PO SCH (04:59)
[2019-03-09] MEDS: inSUlin ASPART (NovoLOG) 1 UNIT/0.01 ML (CHARGE PER UNIT) SC SCH ×4 (05:55→21:05)
[2019-03-09 06:26] LABS: BASOPHILS % (AUTO) 0 % (0-10); EOSINOPHILS % (AUTO) 0 % (0-10); HEMATOCRIT 27 % (40-54); LYMPHOCYTES # (AUTO) 3.7 X 10^3 (1.0-4.0); LYMPHOCYTES % (AUTO) 34 % (12-44); MEAN CORPUSCULAR HEMOGLOBIN 28 PG (25-34); MEAN CORPUSCULAR HGB CONC 33 G/DL (32-36); MEAN CORPUSCULAR VOLUME 85 FL (80-99); MEAN PLATELET VOLUME 8.2 FL (7.4-10.4); MONOCYTES # (AUTO) 1.2 X 10^3 (0.0-1.0); MONOCYTES % (AUTO) 11 % (0-12); NEUTROPHILS # (AUTO) 5.9 X 10^3 (1.8-7.8); NEUTROPHILS % (AUTO) 55 % (42-75); PLATELET COUNT 294 10^3/uL (130-400); RED CELL DISTRIBUTION WIDTH 15.1 % (10.0-14.5); WHITE BLOOD COUNT 10.8 10^3/uL (4.3-11.0)
[2019-03-09 06:49] LABS: ALANINE AMINOTRANSFERASE 16 U/L (0-55); ALBUMIN 3.2 GM/DL (3.2-4.5); ALKALINE PHOSPHATASE 99 U/L (40-136); BILIRUBIN,TOTAL 0.3 MG/DL (0.1-1.0); BUN/CREATININE RATIO 11; CALCIUM 9.2 MG/DL (8.5-10.1); CARBON DIOXIDE 22 MMOL/L (21-32); CHLORIDE 103 MMOL/L (98-107); CREATININE SERUM 0.62 MG/DL (0.60-1.30); GFR ESTIMATED > 60; GLUCOSE 71 MG/DL (70-105); POTASSIUM 3.8 MMOL/L (3.6-5.0); SODIUM 133 MMOL/L (135-145); TOTAL PROTEIN 6.9 GM/DL (6.4-8.2)
--- NOTE | 2019-03-09 07:02 | Progress Note - Hospitalist ---
[facility] 03/09/19 0702: Subjective HPI/CC On Admission Date Seen by Provider: Mar 09, 2019 Time Seen by Provider: 06:58 This is an unfortunate 53-year-old white male with a partial C3 quadriplegia from a fall. The patient is brought to the emergency room with a fever and hypersomnolence. Patient is febrile with an elevated white count. CT shows probable osteomyelitis secondary to a decubitus ulcer on the sacrum. He is being admitted with presumed sepsis from the sacral ulcer and osteomyelitis. Patient is super somnolent and unable to give me any additional history. is not present. He has been given Narcan without awakening. ABG is pending Subjective/Events-last exam vitals stable Hgb down to 9.0 from 10.3 yesterday Review of Systems Pulmonary: No Dyspnea, No Cough Cardiovascular: No: Chest Pain, Palpitations Gastrointestinal: No: Nausea, Vomiting Objective Exam Vital Signs Vital Signs Date Time Temp Pulse Resp B/P (MAP) Pulse Ox O2 Delivery O2 Flow Rate FiO2 03/08/19 23:36 36.9 73 18 124/72 (89) 97 Room Air 03/05/19 08:59 1.00 Capillary Refill : Less Than 3 SecondsLess Than 3 Seconds General Appearance: No Apparent Distress, WD/WN HEENT: Normal ENT Inspection Neck: Normal Inspection Respiratory: Chest Non Tender, Lungs Clear, Normal Breath Sounds, No Accessory Muscle Use, No Respiratory Distress Cardiovascular: Regular Rate, Rhythm, No Edema, No Gallop, No JVD, No Murmur, Normal Peripheral Pulses Extremity: Other (sacral wound draining and bloody) Neurologic/Psychiatric: Alert, Oriented x3 Results/Procedures Lab Laboratory Tests 03/09/19 06:00 Patient resulted labs reviewed. Imaging: Reviewed Imaging Report Assessment/Plan Assessment and Plan Assess & Plan/Chief Complaint Assessment & Plan sepsis Chronic pain C3 partial paraplegia Polysubstance abuse HTN Continue meds Decubitus ulcer Debridement yesterday Per Dr. Cartwright: continue Dakin dressings, start wound VAC: still awaiting wound VAC placement Depressed mood Psych eval Confusion Monitor mentation Clinical Quality Measures DVT/VTE Risk/Contraindication: Risk Factor Score Per Nursin RFS Level Per Nursing on Admit: 4+=Very High PAOLA CORDERO DO 03/10/19 1125: Subjective Subjective/Events-last exam Patient's sleeping when seen Overall severe debility and long-term prognosis is in question Wound VAC in place Review of Systems General: Fatigue Assessment/Plan Assessment and Plan Assess & Plan/Chief Complaint Wound VAC Appreciated general surgery management Diagnosis/Problems Diagnosis/Problems (1) Quadriplegia Status: Acute (2) Decubitus ulcer of coccygeal region, stage 4 Status: Chronic (3) Incontinence of feces Status: Chronic (4) Neurogenic bladder Status: Chronic Supervisory-Addendum Brief Verification & Attestation Participated in pt care: history, MDM, physical Personally performed: exam, history, MDM, supervision of care Care discussed with: Medical Student Procedures: n/a Results interpretation: Verified all documentation Verification and Attestation of Medical Student E/M Service A medical student performed and documented this service in my presence. I reviewed and verified all information documented by the medical student and made modifications to such information, when appropriate. I personally performed the physical exam and medical decision making. Paola Cordero, Mar 10, 2019,11:25 [facility] Mar 09, 2019 07:02 PAOLA CORDERO DO Mar 10, 2019 11:25
[2019-03-09] MEDS: RT-ALBUTEROL/IPRATROPIUM 3 ML (DUONEB) VIAL INH SCH ×2 (07:32→19:53)
[2019-03-09 07:36] VITALS: BP 105/66
[2019-03-09] MEDS: FAMOTIDINE 20 MG (PEPCID) TABLET PO SCH ×2 (09:11→21:14)
[2019-03-09] MEDS: LORATADINE (CLARITIN) 10 MG TAB PO SCH (09:12)
[2019-03-09] MEDS: ALPRAZolam 0.5 MG (XANAX) TAB PO PRN ×2 (09:12→21:14)
[2019-03-09] MEDS: MIDODRINE 10 MG (PROAMATINE) TAB PO SCH ×3 (09:12→21:14)
[2019-03-09] MEDS: BACLOFEN 10 MG (LIORESAL) TAB PO SCH ×3 (09:12→21:14)
[2019-03-09] MEDS: MICONAZOLE 2% POWDER (DESENEX AF) 90 GM TOP SCH ×2 (09:30→21:15)
[2019-03-09] MEDS: COLLAGENASE 30 GM (SANTYL) TUBE TP SCH ×2 (09:30→19:25)
[2019-03-09] MEDS: DAKIN'S 1/4 STRENGTH (0.125%) 473 ML BTL TOP SCH (09:30)
--- NOTE | 2019-03-09 10:30 | Progress Note - Surgery ---
JUICE SAMSON,MED STUDENT 03/09/19 1030: Subjective Date Seen by a Provider: Mar 09, 2019 Time Seen by a Provider: 10:25 Subjective/Events-last exam Pt feeling well today, no new complaints. No family at bedside. Discussed need for wound vac and patient consented. Objective Exam Vital Signs Date Time Temp Pulse Resp B/P (MAP) Pulse Ox O2 Delivery O2 Flow Rate FiO2 03/09/19 07:36 37.0 63 16 105/66 (79) 97 Room Air 03/08/19 23:36 36.9 73 18 124/72 (89) 97 Room Air 03/08/19 20:00 Room Air 03/08/19 19:35 Room Air 03/08/19 16:35 37.2 70 23 116/65 (82) 95 Room Air I & O 03/09/19 06:59 Intake Total 2700 ml Output Total 2375 ml Balance 325 ml Capillary Refill : Less Than 3 SecondsLess Than 3 Seconds General Appearance: No Apparent Distress, WD/WN HEENT: Normal ENT Inspection Neck: Normal Inspection Respiratory: Chest Non Tender, Lungs Clear, Normal Breath Sounds, No Accessory Muscle Use, No Respiratory Distress Cardiovascular: Regular Rate, Rhythm, No Edema, Normal Peripheral Pulses Peripheral Pulses: 2+ Dorsalis Pedis (R), 2+ Left Dors-Pedis (L), 2+ Radial Pulses (R), 2+ Radial Pulses (L) Gastrointestinal: non tender, distended (his normal ) Extremity: Other (sacral wound draining and bloody) Neurologic/Psychiatric: Alert, Oriented x3, Normal Mood/Affect Skin: Normal Color, Warm/Dry Lymphatic: No Adenopathy (Neck, axilla ) Results Lab Laboratory Tests 03/08/19 10:57: Glucometer 172H 03/08/19 16:26: Glucometer 134H 03/08/19 20:29: Glucometer 123H 03/09/19 05:50: Glucometer 82 03/09/19 06:00: White Blood Count 10.8, Red Blood Count 3.21L, Hemoglobin 9.0L, Hematocrit 27L, Mean Corpuscular Volume 85, Mean Corpuscular Hemoglobin 28, Mean Corpuscular Hemoglobin Concent 33, Red Cell Distribution Width 15.1H, Platelet Count 294, Mean Platelet Volume 8.2, Neutrophils (%) (Auto) 55, Lymphocytes (%) (Auto) 34, Monocytes (%) (Auto) 11, Eosinophils (%) (Auto) 0, Basophils (%) (Auto) 0, Neutrophils # (Auto) 5.9, Lymphocytes # (Auto) 3.7, Monocytes # (Auto) 1.2H, Eosinophils # (Auto) 0.0, Basophils # (Auto) 0.0, Sodium Level 133L, Potassium Level 3.8, Chloride Level 103, Carbon Dioxide Level 22, Anion Gap 8, Blood Urea Nitrogen 7, Creatinine 0.62, Estimat Glomerular Filtration Rate > 60, BUN/Creatinine Ratio 11, Glucose Level 71, Calcium Level 9.2, Corrected Calcium 9.8, Total Bilirubin 0.3, Aspartate Amino Transf (AST/SGOT) 19, Alanine Aminotransferase (ALT/SGPT) 16, Alkaline Phosphatase 99, Total Protein 6.9, Albumin 3.2 Microbiology 03/03/19 Blood Culture - Final, Complete No growth 03/03/19 Influenza Types A,B Antigen (CITLALY) - Final, Complete 03/03/19 Urine Culture - Final, Complete NO GROWTH 03/03/19 Gram Stain - Final, Complete 03/03/19 Wound Culture - Final, Complete Mixed Bacterial Rin Pseudomonas aeruginosa Assessment/Plan Assessment/Plan Assessment/Plan partial quadriplegic Sacral decubitus ulcer Start wound vac. Will work with wound care team to coordinate with home health for dressing changes. Clinical Quality Measures DVT/VTE Risk/Contraindication: Risk Factor Score Per Nursin RFS Level Per Nursing on Admit: 4+=Very High EDMUND GARCÍA DO 03/09/19 1048: Subjective Time Seen by a Provider: 10:25 Subjective/Events-last exam Called Wound Care Team to help place Wound VAC Supervisory-Addendum Brief Verification & Attestation Participated in pt care: history, MDM, physical Personally performed: exam, history, MDM Care discussed with: Medical Student Procedures: n/a Verification and Attestation of Medical Student E/M Service A medical student performed and documented this service in my presence. I rev iewed and verified all information documented by the medical student and made modifications to such information, when appropriate. I personally performed the physical exam and medical decision making. Edmund García, Mar 09, 2019,10:48 JUICE SAMSON,MED STUDENT Mar 09, 2019 10:30 EDMUND GARCÍA DO Mar 09, 2019 10:48
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
--- NOTE | 2019-03-09 14:23 | NUR ---
Initial visit: Strong rapport established through prior visits. Pt shared he continues to seek supportive staff in the home to take the burden of his care off his family. 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 The pt said he thanks God for the wisdom and income over the years to save for times like this. he invited me to return and visit. Pt states that "this time I want to stay in the hospital until my wound is healed enough to manage at home."
[2019-03-09 16:59] VITALS: BP 164/79
[2019-03-09] MEDS: ENOXAPARIN 40 MG/0.4 ML (LOVENOX) SYR SC SCH (17:10)
--- NOTE | 2019-03-09 20:00 | NUR ---
PT WOUND VAC FOUND TO BE LEAKING DURING PT ASSESSMENT. A MODERATE AMOUNT OF BLOOD FOUND ON PAD UNDER PT AND AROUND WOUND. THIS RN CALLED SPEECH WRITER SHERRY TO ASSESS. THIS RN ADVISED BY SHERRY TO REMOVE WOUND VAC AND REPLACE WITH PREVIOUS DRESSING. THIS RN AND HOUSE SUP REMOVED WOUND VAC AT THIS TIME. DURING ASSESSMENT OF WOUND FOUND ESTIMATED 50-75 CC OF COLLECTED BLOOD IN WOUND BED. DRESSING APPLIED AT THIS TIME PER PREVIOUS WOUND CARE ORDERS. Addendum: 03/09/19 at 4883 by JOEY ARMAS RN TIME AT 2129 NOT 1999
[2019-03-09] MEDS: MONTELUKAST 10 MG (SINGULAIR) TAB PO SCH (21:14)
[2019-03-09] MEDS: MELATONIN 3 MG TABLET PO SCH (21:15)
[2019-03-09] MEDS: QUEtiapine 100 MG (SEROquel) TAB IMMEDIATE RELEASE PO SCH (21:15)
--- NOTE | 2019-03-09 22:00 | NUR ---
DR. ALAMO CALLED AND INFORMED OF WOUND VAC LEAKING AND THE AMOUNT OF BLOOD THAT WAS NOTED. THIS RN INFORMED DR WET TO DRY WAS APPLIED PER PREVIOUS ORDER. DR. ALAMO STATES UNDERSTANDING. DR. ALAMO WANTS WOUND VAC TO BE REAPPLIED WITH WHITE FOAM TOMORROW. NO OTHER ORDERS AT THIS TIME. [facility] CALLED AND INFORMED DR. ALAMO WANTING WOUND VAC APPLIED TOMORROW WITH WHITE FOAM.
[2019-03-10] VITALS (7 sets, daily range): BP systolic 86–120; BP diastolic 56–69
[2019-03-10] MEDS: HYDROcodone/APAP 5 MG/325 MG (LORTAB) TAB PO PRN ×2 (05:10→20:28)
[2019-03-10] MEDS: KCL 10 MEQ TAB (MICRO K) PO SCH (05:10)
[2019-03-10] MEDS: inSUlin ASPART (NovoLOG) 1 UNIT/0.01 ML (CHARGE PER UNIT) SC SCH ×4 (05:12→20:35)
--- NOTE | 2019-03-10 06:52 | Progress Note ---
Subjective Date Seen by a Provider: Mar 10, 2019 Time Seen by a Provider: 06:00 Subjective/Events-last exam doing well. wound examined. small amount clotted blood, no active bleed. will get H/H. scheduled to replace VAC with white foam. Objective Exam Vital Signs Date Time Temp Pulse Resp B/P (MAP) Pulse Ox O2 Delivery O2 Flow Rate FiO2 03/10/19 04:19 36.8 65 18 102/56 (71) 97 Room Air 03/10/19 00:00 37.2 68 20 96/58 (71) 98 Room Air 03/09/19 20:00 Room Air 03/09/19 16:59 36.9 63 20 164/79 (107) 96 Room Air 03/09/19 08:00 Room Air 03/09/19 07:36 37.0 63 16 105/66 (79) 97 Room Air I & O 03/10/19 07:00 Intake Total 2110 ml Output Total 3775 ml Balance -1665 ml Capillary Refill : Less Than 3 SecondsLess Than 3 Seconds General Appearance: No Apparent Distress HEENT: PERRL/EOMI Neck: Full Range of Motion Respiratory: Chest Non Tender, Lungs Clear, Normal Breath Sounds Cardiovascular: Regular Rate, Rhythm Gastrointestinal: normal bowel sounds, non tender, soft Extremity: Normal Capillary Refill Neurologic/Psychiatric: Alert, Oriented x3 Skin: Other (sacral decub intact, no bleeding/redness/erythema/purulence) Lymphatic: No Adenopathy Results Lab Laboratory Tests 03/09/19 11:29: Glucometer 115H 03/09/19 16:59: Glucometer 148H 03/09/19 21:02: Glucometer 157H 03/10/19 05:12: Glucometer 137H Microbiology 03/03/19 Blood Culture - Final, Complete No growth 03/03/19 Influenza Types A,B Antigen (CITLALY) - Final, Complete 03/03/19 Urine Culture - Final, Complete NO GROWTH 03/03/19 Gram Stain - Final, Complete 03/03/19 Wound Culture - Final, Complete Mixed Bacterial Rin Pseudomonas aeruginosa Assessment/Plan Assessment/Plan Assess & Plan/Chief Complaint quadraplegia with sacral decub s/p debridement. bleeding yesterday and vac removed. no active bleed today. wound intact. recommend replacement vac with white foam. Clinical Quality Measures DVT/VTE Risk/Contraindication: Risk Factor Score Per Nursin RFS Level Per Nursing on Admit: 4+=Very High TON JORGE MD Mar 10, 2019 06:52
[2019-03-10] MEDS: ALPRAZolam 0.5 MG (XANAX) TAB PO PRN ×2 (07:45→21:07)
[2019-03-10 08:35] LABS: HEMOGLOBIN 8.7 G/DL (13.3-17.7)
[2019-03-10] MEDS: LORATADINE (CLARITIN) 10 MG TAB PO SCH (09:05)
[2019-03-10] MEDS: MIDODRINE 10 MG (PROAMATINE) TAB PO SCH ×3 (09:05→20:28)
[2019-03-10] MEDS: FAMOTIDINE 20 MG (PEPCID) TABLET PO SCH ×2 (09:05→20:27)
[2019-03-10] MEDS: BACLOFEN 10 MG (LIORESAL) TAB PO SCH ×3 (09:05→20:27)
[2019-03-10] MEDS: COLLAGENASE 30 GM (SANTYL) TUBE TP SCH ×2 (09:12→20:28)
[2019-03-10] MEDS: DAKIN'S 1/4 STRENGTH (0.125%) 473 ML BTL TOP SCH (10:22)
[2019-03-10] MEDS: MICONAZOLE 2% POWDER (DESENEX AF) 90 GM TOP SCH ×2 (10:22→20:28)
--- NOTE | 2019-03-10 10:28 | NUR ---
DR GAN ON FLOOR AND ADVISED HER OF THE WOUND VAC BEING REMOVED PER SERGEI RN AND W/Rand W/ HARRISON DSG CHANGES -- IF EDUCATION REVIEWER CAN SHE WILL RE APPLIY THE WOUND VAC TODAY -- BUT THAT IT MAY BE TUESDAY BEFORE IT GETS DONE -- SHE VOICED SHE UNDERSTOOD
--- NOTE | 2019-03-10 11:26 | Progress Note - Hospitalist ---
Subjective HPI/CC On Admission Date Seen by Provider: Mar 10, 2019 Time Seen by Provider: 10:00 This is an unfortunate 53-year-old white male with a partial C3 quadriplegia from a fall. The patient is brought to the emergency room with a fever and hypersomnolence. Patient is febrile with an elevated white count. CT shows probable osteomyelitis secondary to a decubitus ulcer on the sacrum. He is being admitted with presumed sepsis from the sacral ulcer and osteomyelitis. Patient is super somnolent and unable to give me any additional history. is not present. He has been given Narcan without awakening. ABG is pending Subjective/Events-last exam Patient's sleeping again Behavioral health consult is appreciated line wound VAC fell off so he is now on wet-to-dry dressings Clots were forming within the decubitus ulcer noted Bowels are moving and incontinence noted Review of Systems General: Fatigue Objective Exam Vital Signs Vital Signs Date Time Temp Pulse Resp B/P (MAP) Pulse Ox O2 Delivery O2 Flow Rate FiO2 03/10/19 08:00 Room Air 03/10/19 07:20 37.4 72 16 120/69 (86) 98 03/05/19 08:59 1.00 Capillary Refill : Less Than 3 SecondsLess Than 3 Seconds General Appearance: WD/WN, Chronically ill Respiratory: Chest Non Tender, Lungs Clear, Normal Breath Sounds, No Accessory Muscle Use, No Respiratory Distress Cardiovascular: Regular Rate, Rhythm, No Edema, No Gallop, No JVD, No Murmur, Normal Peripheral Pulses Results/Procedures Lab Laboratory Tests 03/10/19 08:27 Patient resulted labs reviewed. Imaging: Reviewed Imaging Report Assessment/Plan Assessment and Plan Assess & Plan/Chief Complaint Wound VAC Appreciated general surgery management Diagnosis/Problems Diagnosis/Problems (1) Quadriplegia Status: Acute (2) Decubitus ulcer of coccygeal region, stage 4 Status: Chronic (3) Incontinence of feces Status: Chronic (4) Neurogenic bladder Status: Chronic Clinical Quality Measures DVT/VTE Risk/Contraindication: Risk Factor Score Per Nursin RFS Level Per Nursing on Admit: 4+=Very High MARGUERITE GAN DO Mar 10, 2019 11:26
[2019-03-10] MEDS: RT-ALBUTEROL/IPRATROPIUM 3 ML (DUONEB) VIAL INH SCH ×2 (12:41→18:40)
--- NOTE | 2019-03-10 13:00 | NUR ---
NOTE THAT THIS RN TALKED TO COOK FRUIT AND SHE VOICED SHE COULD NOT APPLY THEH WOUND VAC -- RE ENFORCE SHALLOT PACKER DOES BUT NOT REAPPLY WOULD VAC -- NOTE THAT DR GAN WAS AWARE IT MAYBE TUESDAY BEFORE WOUND VAC APPLIED AND THIS RN CALLED AND ADVISED DR JORGE - HE VOICED THAT WOUDL BE OK TO CONTNUE THE W/D UNTIL WOUND VAC ON
--- NOTE | 2019-03-10 13:55 | NUR ---
NOTE THAT MIGUEL WAS CALLED BY THIS RN AND THIS RN WAS ASKING ABOUT WOUND VAC BEING RE APPLIED -- HE VOICED THAT WHEN WOUND VAC WAS APPLIED BY HIM HE HAD TO REMOVE A VERY LARGE CLOT AND THE LARGE CLOTTING WAS WHAT PROBABLY MADE WOUND VAC LEAK -- HE WILL RE EVAL ON TUESDAY --
[2019-03-10] MEDS: ENOXAPARIN 40 MG/0.4 ML (LOVENOX) SYR SC SCH (17:25)
[2019-03-10] MEDS: MELATONIN 3 MG TABLET PO SCH (20:27)
[2019-03-10] MEDS: QUEtiapine 100 MG (SEROquel) TAB IMMEDIATE RELEASE PO SCH (20:27)
[2019-03-10] MEDS: MONTELUKAST 10 MG (SINGULAIR) TAB PO SCH (20:28)
--- NOTE | 2019-03-11 00:20 | NUR ---
PT BP IS 91/52 AT THIS TIME. LOOKING AT HX OF PT VS OVER THIS PAST WEEK HE HAS A TENDENCY TO DROP. JOEY, CHARGE NX, STATED THAT IS AWARE.
[2019-03-11 00:51] VITALS: BP 91/52
[2019-03-11 04:08] VITALS: BP 94/62
--- NOTE | 2019-03-11 04:58 | NUR ---
CRYSTAL FROM LAB REPORTED PT IS REFUSING TO HAVE LABS DRAWN.
[2019-03-11] MEDS: inSUlin ASPART (NovoLOG) 1 UNIT/0.01 ML (CHARGE PER UNIT) SC SCH (05:42)
[2019-03-11] MEDS: KCL 10 MEQ TAB (MICRO K) PO SCH (06:20)
[2019-03-11] MEDS: RT-ALBUTEROL/IPRATROPIUM 3 ML (DUONEB) VIAL INH SCH (07:01)
[2019-03-11 07:25] VITALS: BP 71/43
--- NOTE | 2019-03-11 07:30 | NUR ---
PT VERY UPSET -- HE WANTS STAFF TO TAKE HIM TO SMOKE AND VERY HATEFUL THAT WE CAN NOT -- REFUSED THE NICOTINE PATCH , REFUSED TO LET THIS RN DO HIS DG CHANGE -- CURSING AND SAYING WE ARE ARE NOT DOING ANYTHING -- HE NEEDS TO SMOKE -- PT REFUSED TO EAT -- DR GAN WAS CALLED AND ADVISED -- AMA PAPERS WERE SIGNED AND PT'S WILL BE IN TO TAKE HOME HOME -- DR JORGE I AWARE AND FLOWER CHENILLER WAS MADE AWARE
[2019-03-11] MEDS: LORATADINE (CLARITIN) 10 MG TAB PO SCH (09:00)
[2019-03-11] MEDS: BACLOFEN 10 MG (LIORESAL) TAB PO SCH (09:00)
[2019-03-11] MEDS: MIDODRINE 10 MG (PROAMATINE) TAB PO SCH (09:00)
[2019-03-11] MEDS: COLLAGENASE 30 GM (SANTYL) TUBE TP SCH (09:00)
[2019-03-11] MEDS: MICONAZOLE 2% POWDER (DESENEX AF) 90 GM TOP SCH (09:00)
[2019-03-11] MEDS: FAMOTIDINE 20 MG (PEPCID) TABLET PO SCH (09:00)
[2019-03-11] MEDS: DAKIN'S 1/4 STRENGTH (0.125%) 473 ML BTL TOP SCH (09:45)
[2019-03-11 09:55] VITALS: BP 71/43
--- NOTE | 2019-03-11 11:23 | Discharge Summary ---
Discharge Summary Hospital Course Was the Problem List Reviewed?: Yes Problems/Dx: (1) Left against medical advice (2) Quadriplegia Status: Acute (3) Decubitus ulcer of coccygeal region, stage 4 Status: Chronic (4) Incontinence of feces Status: Chronic (5) Neurogenic bladder Status: Chronic Hospital Course Date of Admission: Mar 03, 2019 at 10:45 Admission Diagnosis : Family Physician/Provider: [facility] Date of Discharge: 03/11/19 Discharge Diagnosis: Decubitus ulcer s/p debridement by Dr García [facility] Hospital Course: Hospital course: Patient had an uneventful hospital course he was admitted for sepsis found to have decubitus ulcer in need of debridement so Dr. García perform that in an uncomplicated manner and his total hospital stay was 9 days. Wound VAC had been placed but it had issues so wet-to-dry dressings were initiated but he became upset and once again left AGAINST MEDICAL ADVICE and was discharged home with his family. Labs and Pending Lab Test: Laboratory Tests 03/10/19 16:27: Glucometer 129H 03/10/19 20:29: Glucometer 210H Microbiology 03/03/19 Blood Culture - Final, Complete No growth 03/03/19 Influenza Types A,B Antigen (CITLALY) - Final, Complete 03/03/19 Urine Culture - Final, Complete NO GROWTH 03/03/19 Gram Stain - Final, Complete 03/03/19 Wound Culture - Final, Complete Mixed Bacterial Rin Pseudomonas aeruginosa Home Meds Active Levemir Flextouch (Insulin Detemir) 100 Unit/1 Ml Insuln.pen 20 Unit SQ HS Levemir Flextouch (Insulin Detemir) 100 Unit/1 Ml Insuln.pen 15 Unit SQ AM Augmentin 875-125 Tablet (Amoxicillin/Potassium Clav) 1 Each Tablet 1 Each PO BID Lotrimin AF (Miconazole Nitrate) 90 Gm Powder 0 Gm TOP BID Famotidine 20 Mg Tablet 20 Mg PO BID Montelukast Sodium 10 Mg Tablet 10 Mg PO HS Klor-Con 10 (Potassium Chloride) 10 Meq Tablet.er 10 Meq PO DAILY@0700 Dakin's (Sodium Hypochlorite) 473 Ml Solution 0 Ml TOP DAILY Citalopram HBr (Citalopram Hydrobromide) 10 Mg Tablet 10 Mg PO DAILY Midodrine HCl 10 Mg Tablet 10 Mg PO TID Iprat-Albut 0.5-3(2.5) mg/3 ml (Ipratropium/Albuterol Sulfate) 3 Ml Ampul.neb 3 Ml INH RTBID Loratadine 10 Mg Tablet 10 Mg PO DAILY Reported Baclofen 10 Mg Tablet 5 Mg PO TID Melatonin 5 Mg Tablet 10 Mg PO HS Enoxaparin Sodium 40 Mg/0.4 Ml Syringe 40 Mg SC 1400 FILLED #12 02-07-19 AND THEN THE REST ON 02-20-19 FOR #18 SYRINGES Quetiapine Fumarate 50 Mg Tablet 50 Mg PO HS Alprazolam 0.25 Mg Tablet 1 Mg PO BID TAKES 4 (0.25MG) TABLETS (UNTIL GONE THEN WILL GET NEW SCRIPT FOR 1MG TABS TWICE DAILY) Hydrocodone-Acetamin 5-325 mg (Hydrocodone/Acetaminophen) 1 Each Tablet 1 Tab PO Q6H PRN Assessment/Pt Instructions PCP in 1 week Discharge Planning: <30 minutes discharge planning Discharge Instructions Discharge Diet: No Restrictions Activity as Tolerated: Yes Discharge Physical Examination Vital Signs Vital Signs Date Time Temp Pulse Resp B/P (MAP) Pulse Ox O2 Delivery O2 Flow Rate FiO2 03/11/19 07:25 36.2 65 18 71/43 (52) 96 Room Air 03/05/19 08:59 1.00 Allergies: Coded Allergies: No Known Drug Allergies (Unverified , 02/15/19) Discharge Summary Date of Admission Mar 03, 2019 at 10:45 Date of Discharge Admission Diagnosis Sepsis secondary to sacral decubitus with osteomyelitis C3 partial quadriplegia Plan to admit for aggressive IV antibiotics wound care and consultation with surgery. Discharge Diagnosis Wound VAC Appreciated general surgery management (1) Quadriplegia Status: Acute (2) Decubitus ulcer of coccygeal region, stage 4 Status: Chronic (3) Incontinence of feces Status: Chronic (4) Neurogenic bladder Status: Chronic Clinical Quality Measures DVT/VTE Risk/Contraindication: Risk Factor Score Per Nursin RFS Level Per Nursing on Admit: 4+=Very High MARGUERITE GAN DO Mar 11, 2019 11:23
== END 2019-03-11 09:55 | disposition left against medical advice (07) | DRG 853 ==
LOC: EDUNIT# 08:52 → ER 08:53 → 4TH 10:45
PROVIDERS: ADMIT Internal Medicine; ATTEND Internal Medicine
PROC: 0JBC0ZZ Excision of Pelvic Region Subcutaneous Tissue and Fascia, Open Approach (ICD-10-PCS; principal; 2019-03-07 12:40)
DX: A41.9 Sepsis, unspecified organism (principal); E11.69 Type 2 diabetes mellitus with other specified complication; M86.9 Osteomyelitis, unspecified; L89.154 Pressure ulcer of sacral region, stage 4; G82.52 Quadriplegia, C1-C4 incomplete; K59.2 Neurogenic bowel, not elsewhere classified; L97.429 Non-pressure chronic ulcer of left heel and midfoot with unspecified severity; E11.42 Type 2 diabetes mellitus with diabetic polyneuropathy; N31.9 Neuromuscular dysfunction of bladder, unspecified; R15.9 Full incontinence of feces; E11.65 Type 2 diabetes mellitus with hyperglycemia; R32 Unspecified urinary incontinence; J44.9 Chronic obstructive pulmonary disease, unspecified; R41.0 Disorientation, unspecified; I10 Essential (primary) hypertension; J30.1 Allergic rhinitis due to pollen; J30.81 Allergic rhinitis due to animal (cat) (dog) hair and dander; K21.9 Gastro-esophageal reflux disease without esophagitis; M54.9 Dorsalgia, unspecified; G47.9 Sleep disorder, unspecified; F41.9 Anxiety disorder, unspecified; Z91.19 Patient's noncompliance with other medical treatment and regimen; Z79.4 Long term (current) use of insulin; Z87.820 Personal history of traumatic brain injury; W11.XXXS Fall on and from ladder, sequela; F32.9 Major depressive disorder, single episode, unspecified
CPT/HCPCS: 36415; 36600; 71045; 72193; 80053; 80202; 80306; 80320; 81000; 82805; 82962; 83605; 85014; 85018; 85025; 85610; 85652; 85730; 87040; 87070; 87077; 87088; 87186; 87205; 87804; 88304; 93005; 94760; 96361; 96365; 96375

== ENCOUNTER 2019-03-11 22:43 | Emergency (ER) | payer MEDICAID ==
[~2019-03-11] VITALS: Ht 160 cm; Wt 55.7 kg
[2019-03-11 23:00] LABS: BASOPHILS % (AUTO) 0 % (0-10); EOSINOPHILS % (AUTO) 0 % (0-10); HEMATOCRIT 25 % (40-54); HEMOGLOBIN 8.4 G/DL (13.3-17.7); LYMPHOCYTES # (AUTO) 3.1 X 10^3 (1.0-4.0); LYMPHOCYTES % (AUTO) 22 % (12-44); MEAN CORPUSCULAR HEMOGLOBIN 28 PG (25-34); MEAN CORPUSCULAR HGB CONC 34 G/DL (32-36); MEAN CORPUSCULAR VOLUME 84 FL (80-99); MEAN PLATELET VOLUME 8.1 FL (7.4-10.4); MONOCYTES # (AUTO) 1.7 X 10^3 (0.0-1.0); MONOCYTES % (AUTO) 12 % (0-12); NEUTROPHILS # (AUTO) 9.3 X 10^3 (1.8-7.8); NEUTROPHILS % (AUTO) 66 % (42-75); PLATELET COUNT 357 10^3/uL (130-400); RED CELL DISTRIBUTION WIDTH 15.3 % (10.0-14.5); WHITE BLOOD COUNT 14.1 10^3/uL (4.3-11.0)
[2019-03-11 23:01] LABS: BILIRUBIN,URINE NEGATIVE (NEGATIVE); CLARITY,URINE CLEAR; COLOR,URINE YELLOW; GLUCOSE, URINE (UA) NEGATIVE (NEGATIVE); KETONES,URINE NEGATIVE (NEGATIVE); LEUKOCYTE ESTERASE ,URINE NEGATIVE (NEGATIVE); NITRITE,URINE NEGATIVE (NEGATIVE); PH,URINE 8 (5-9); PROTEIN,URINE 1+ (NEGATIVE); UROBILINOGEN,URINE NORMAL (NORMAL)
--- NOTE | 2019-03-11 23:04 | NUR ---
LAB STAFF REPORT THAT THE PT REFUSES HIS SECOND SET OF BLOOD CULTURES.
[2019-03-11 23:06] LABS: INR 1.1 (0.8-1.4); PROTHROMBIN TIME PATIENT 14.2 SEC (12.2-14.7)
[2019-03-11 23:11] LABS: BACTERIA,URINE FEW /HPF
[2019-03-11 23:12] LABS: AMORPHOUS SEDIMENT,UR MOD AMOR PHOSPHATE /LPF; HYALINE CASTS, URINE 0-2 /LPF
[2019-03-11 23:14] LABS: BUN/CREATININE RATIO 14; CARBON DIOXIDE 15 MMOL/L (21-32); CHLORIDE 102 MMOL/L (98-107); CREATININE SERUM 0.71 MG/DL (0.60-1.30); POTASSIUM 3.4 MMOL/L (3.6-5.0); SODIUM 131 MMOL/L (135-145)
[2019-03-11 23:15] LABS: ALANINE AMINOTRANSFERASE 30 U/L (0-55); ALBUMIN 3.6 GM/DL (3.2-4.5); ALKALINE PHOSPHATASE 89 U/L (40-136); BILIRUBIN,TOTAL 0.3 MG/DL (0.1-1.0); CALCIUM 8.8 MG/DL (8.5-10.1); GFR ESTIMATED > 60; GLUCOSE 117 MG/DL (70-105); MAGNESIUM 1.9 MG/DL (1.6-2.4); TOTAL PROTEIN 7.5 GM/DL (6.4-8.2)
[2019-03-11 23:16] LABS: AMPHETAMINE SCREEN, URINE NEGATIVE (NEGATIVE); BARBITURATE SCREEN URINE NEGATIVE (NEGATIVE); BENZODIAZEPINES SCREEN URINE POSITIVE (NEGATIVE); CANNABINOID SCREEN, URINE NEGATIVE (NEGATIVE); COCAINE SCREEN URINE NEGATIVE (NEGATIVE); METHADONE STAT NEGATIVE (NEGATIVE); METHAMPHETAMINE SCREEN URINE S NEGATIVE (NEGATIVE); OPIATE SCREEN URINE NEGATIVE (NEGATIVE); OXYCODONE STAT NEGATIVE (NEGATIVE); PROPOXYPHENE STAT NEGATIVE (NEGATIVE); TRICYCLIC ANTIDEPRESSANTS SCRE POSITIVE (NEGATIVE)
[2019-03-11 23:28] LABS: BAND NEUTROPHILS 3 %; HYPOCHROMASIA MODERATE; LYMPHOCYTES % (MANUAL) 24 %; METAMYELOCYTES % 1 %; MONOCYTES % (MANUAL) 7 %; MYELOCYTES % 1 %; NEUTROPHILS % (MANUAL) 64 %; POLYCHROMASIA SLIGHT
--- NOTE | 2019-03-11 23:37 | NUR ---
PT VERBALIZES HE DOSENT FEEL LIKE HE IS GETTING A FULL DEEP BREATH, PT'S OXYGEN SAT 100% ON ROOM AIR, RR IS 20, PT APPEARS TO BE POORLY POSITIONED IN HIS BED, REPOSITIONED FOR PT COMFORT, PT REASSURED HIS VITALS ARE STABLE AND BEING MONITORED
[2019-03-11 23:53] VITALS: BP 135/87
--- NOTE | 2019-03-11 23:53 | NUR ---
PERRY CATHETER REMOVED D/T PT SIGNING OUT AMA
--- NOTE | 2019-03-12 00:05 | NUR ---
CALLED PATIENTS SPOUSE TRINA TO ASK HER TO COME AND SEWING MACHINE REPAIRER THE PATIENT AT HIS REQUEST. YELLING AT THIS RN STATING "IM NOT PLAYING THIS GAME WITH YOU GUYS" THIS RN TELLS THAT [employer] IS REFUSING CARES AND HAS SIGNED HIMSELF OUT AMA AND WE HAVE NO CONTROL OVER HIS DECISION TO LEAVE. TELLS THIS RN "I TOLD HIM HE DIDNT NEED TO GO BUT HE INSISTED I CALL 911". THIS RN APPOLIGIZES FOR HER INCONVIENCE HOWEVER SOMEONE WILL NEED TO COME AND SEWING MACHINE REPAIRER THE PATIENT AT HIS REQUEST. VERBALIZES FRUSTRATION WITH THE SITUATION AND STATES SHE WILL TRY TO WAKE HER OLDEST SON UP TO COME AND GET PATIENT. STATES SHE WILL CALL US BACK. REPORTED TO PRIMARY CHAD CUMMINS AND DR DOWD
--- NOTE | 2019-03-12 07:28 | Diagnostic Imaging Report ---
INDICATION: Respiratory distress. FINDINGS: Rib plating on the right noted. The lungs are clear. No failure, effusion or pneumothorax. IMPRESSION: No acute appearing abnormality. Dictated by: Dictated on workstation # [id number]
== END 2019-03-11 23:53 | disposition left against medical advice (07) ==
LOC: EDUNIT# 22:43 → ER 22:45
DX: R50.9 Fever, unspecified (principal); R06.02 Shortness of breath
CPT/HCPCS: 36415; 51702; 71045; 80053; 80306; 80320; 81000; 83605; 83735; 83880; 84484; 85007; 85027; 85610; 85730; 87040; 93005; 93041

== ENCOUNTER 2019-03-12 02:27 | Emergency (ER) | payer MEDICAID ==
[~2019-03-12] VITALS: Ht 160 cm; Wt 56.7 kg
--- NOTE | 2019-03-12 02:43 | ED General ---
General Stated Complaint: ANXIETY/SHALLOW BREATHING Source of Information: Patient, EMS, Old Records History of Present Illness Date Seen by Provider: Mar 12, 2019 Time Seen by Provider: 02:25 Initial Comments PT ARRIVES VIA EMS FROM HOME--NO FAMILY ARRIVE WITH PT PT STATES HIS SON CALLED EMS THE CALL TO EMS WAS ORIGINALLY WITH COMPLAINT OF "SHALLOW BREATHING". HOWEVER, AFTER EMS ARRIVES, PT JUST STATES HE IS "ANXIOUS" VITALS ARE ALL COMPLETELY NORMAL. WITH O2 SAT 98% ON ROOM AIR, HR88, RESPIRATIONS 17, BP 136/66 PT DENIES ANY RESPIRATORY SYMPTOMS AT THIS TIME PT ONLY STATES HE HAS "ANXIETY" AND "WANTS TO SLEEP" STATES THAT HE DID NOT TAKE ANYTHING ELSE FOR SLEEP TONIGHT, HE STATES BECAUSE HIS WAS ASLEEP--EVEN THOUGH HIS SON WAS AWAKE PT HAS BEEN HOSPITALIZED FOR SEPSIS, AND SIGNED OUT AMA THIS AFTERNOON PT RETURNED TO ER BY EMS EARLIER THIS EVENING, ARRIVING AROUND 2245--WITH INITIAL CALL TO EMS BEING "SHORT OF BREATH" AFTER TAKING 1 XANAX AND 1 MELATONIN--WHICH ARE PT'S ROUTINE PRESCRIBED MEDICATIONS. PT REPORTS THAT HIS GAVE THEM TO HIM PT WAS NOT HAVING ANY DIFFICULTY BREATHING WHATSOEVER AT ANY TIME, AND O2 SATS WERE 100% ON ROOM AIR THE ENTIRE TIME, WITH PT'S ONLY COMPLAINT IN ER WAS STATING THAT HE "WANTS TO SLEEP" PT ALSO SIGNED OUT AMA FROM ER AROUND MIDNIGHT. PT'S SON AND PICKED HIM UP FROM THE HOSPITAL BOTH TIMES. Allergies and Home Medications Allergies Coded Allergies: No Known Drug Allergies (Unverified , 02/15/19) Home Medications Alprazolam 0.25 Mg Tablet, 1 MG PO BID, (Reported) TAKES 4 (0.25MG) TABLETS (UNTIL GONE THEN WILL GET NEW SCRIPT FOR 1MG TABS TWICE DAILY) Amoxicillin/Potassium Clav 1 Each Tablet, 1 EACH PO BID Prescribed by: PRANAY WADE on 02/23/19 1312 Baclofen 10 Mg Tablet, 5 MG PO TID, (Reported) Citalopram Hydrobromide 10 Mg Tablet, 10 MG PO DAILY Prescribed by: MARGUERITE GAN on 02/05/192036 Enoxaparin Sodium 40 Mg/0.4 Ml Syringe, 40 MG SC 1400, (Reported) FILLED #12 02-07-19 AND THEN THE REST ON 02-20-19 FOR #18 SYRINGES Famotidine 20 Mg Tablet, 20 MG PO BID Prescribed by: MARGUERITE GAN on 02/05/192036 Hydrocodone/Acetaminophen 1 Each Tablet, 1 TAB PO Q6H PRN for PAIN-MODERATE, (Reported) Insulin Detemir 100 Unit/1 Ml Insuln.pen, 15 UNIT SQ am Prescribed by: ELBA CABRERA on 03/04/19 08 Insulin Detemir 100 Unit/1 Ml Insuln.pen, 20 UNIT SQ HS Prescribed by: ELBA CABRERA on 03/04/19 08 Ipratropium/Albuterol Sulfate 3 Ml Ampul.neb, 3 ML INH RTBID Prescribed by: MARGUERITE GAN on 02/05/192036 Loratadine 10 Mg Tablet, 10 MG PO DAILY Prescribed by: MARGUERITE GAN on 02/05/192036 Melatonin 5 Mg Tablet, 10 MG PO HS, (Reported) Miconazole Nitrate 90 Gm Powder, 0 GM TOP BID Prescribed by: MARGUERITE GAN on 02/05/192036 Midodrine HCl 10 Mg Tablet, 10 MG PO TID Prescribed by: MARGUERITE GAN on 02/05/192036 Montelukast Sodium 10 Mg Tablet, 10 MG PO HS Prescribed by: MARGUERITE GAN on 02/05/192036 Potassium Chloride 10 Meq Tablet.er, 10 MEQ PO DAILY@0700 Prescribed by: MARGUERITE GAN on 02/05/192036 Quetiapine Fumarate 50 Mg Tablet, 50 MG PO HS, (Reported) Sodium Hypochlorite 473 Ml Solution, 0 ML TOP DAILY Prescribed by: MARGUERITE GAN on 02/05/192036 Past Uxqarsk-Mhtrvr-Weggdd Hx Patient Social History Alcohol Beverage of Choice: Wine Drug of Choice: THC, + IV METHAMPHETAMINES, PCP, O[facility], [facility] Type Used: Cigarettes 2nd Hand Smoke Exposure: Yes Recent Hopitalizations: Yes (SPINAL CORD INJURY AND AT [place] 7-19 RECENT HOSPITALIZATION FOR SEPSIS) Immunizations Up To Date Tetanus Booster (TDap): Unknown PED Vaccines UTD: Yes Date of Pneumonia Vaccine: Sep 04, 2015 Date of Influenza Vaccine: Apr 05, 2017 Seasonal Allergies Seasonal Allergies: Yes (TALL GRASS, ANIMALS) Past Medical History Surgeries: Yes Abdominal, Bladder Surgery, Orthopedic, Tracheostomy Respiratory: Yes COPD Currently Using CPAP: No Currently Using BIPAP: No Cardiac: No Neurological: Yes Neuropathy, Spinal Cord Injury, Traumatic Brain Injury Reproductive Disorders: No Sexually Transmitted Disease: No Genitourinary: Yes Bladder Infection, UTI-Chronic Gastrointestinal: Yes Gastroesophageal Reflux Musculoskeletal: Yes Chronic Back Pain, Fractures Endocrine: Yes (NON-COMPLIANCE) Diabetes, Insulin dep HEENT: Yes Cataract Cancer: No Psychosocial: Yes (POLYSUBSTANCE ABUSE) Sleep Difficulties, Anxiety Integumentary: Yes (SACRAL DECUBITUS ULCER) Blood Disorders: No Adverse Reaction/Blood Tranf: No Family Medical History Abdominal aortic aneurysm 03 MOTHER (DOESN'T KNOW MOM'S MEDICAL HISTORY) Cancer 03 FATHER (TESTICULAR) Family history: Diabetes mellitus 03 FATHER Family history: Hypertension 03 FATHER No Family History of: Family history: Alzheimer's disease Family history: Arthritis Family history: Breast disease Family history: Cardiovascular disease Family history: Gastrointestinal disease Family history: Thyroid disorder Hereditary disease History of - respiratory disease Myocardial infarction Parkinson's disease Seizure disorder Stroke AAA, Diabetes, Hypertension Physical Exam Vital Signs Capillary Refill : Height, Weight, BMI Height: 5'3.00" Weight: 150lbs. 0.3oz. [id number]; 21.00 BMI Method:Stated Procedures/Interventions Date of ETT Placement: Dec 07, 2018 Progress/Results/Core Measures Suspected Sepsis SIRS Temperature: Pulse: Respiratory Rate: Blood Pressure / Mean: Results/Orders My Orders Orders - ARLIN DOWD DO Drug Screen Stat (Urine) (03/12/19 02:34) Vital Signs/I&O Capillary Refill : Departure Impression Primary Impression: Unable to sleep Disposition: 01 HOME, SELF-CARE Condition: Stable Departure-Patient Inst. Referrals: [facility] (PCP/Family) Primary Care Physician Patient Instructions: Tips for Getting Better Sleep Add. Discharge Instructions: TAKE YOUR MEDICATIONS EXACTLY PRESCRIBED FOLLOW UP WITH YOUR DR NEEDED ARLIN DOWD DO Mar 12, 2019 02:43
--- NOTE | 2019-03-12 02:50 | NUR ---
CONTACTED PT'S TO ALERT HER THAT THE PT IS DISCHARGED AND REQUIRES TRANSPORT HOME. PT'S BECAME VERY UPSET AND STATED THAT SHE REFUSES TO COME GET THE PT. ADVISED THAT THE ER HAS VERY LIMITED RESOURCES AND THAT P.D AND EMS WOULD BE CONTACTED, ABRUPTLY HUNG UP THE PHONE
[2019-03-12 02:57] LABS: AMPHETAMINE SCREEN, URINE NEGATIVE (NEGATIVE); BARBITURATE SCREEN URINE NEGATIVE (NEGATIVE); BENZODIAZEPINES SCREEN URINE POSITIVE (NEGATIVE); CANNABINOID SCREEN, URINE NEGATIVE (NEGATIVE); COCAINE SCREEN URINE NEGATIVE (NEGATIVE); METHADONE STAT NEGATIVE (NEGATIVE); METHAMPHETAMINE SCREEN URINE S NEGATIVE (NEGATIVE); OPIATE SCREEN URINE POSITIVE (NEGATIVE); OXYCODONE STAT NEGATIVE (NEGATIVE); PROPOXYPHENE STAT NEGATIVE (NEGATIVE); TRICYCLIC ANTIDEPRESSANTS SCRE NEGATIVE (NEGATIVE)
[2019-03-12 04:33] VITALS: BP 119/79
== END 2019-03-12 04:34 | disposition home or self-care (01) ==
LOC: EDUNIT# 02:27 → ER 02:27
DX: G47.9 Sleep disorder, unspecified (principal); E11.40 Type 2 diabetes mellitus with diabetic neuropathy, unspecified; F41.9 Anxiety disorder, unspecified; J44.9 Chronic obstructive pulmonary disease, unspecified; K21.9 Gastro-esophageal reflux disease without esophagitis; Z87.820 Personal history of traumatic brain injury; Z79.4 Long term (current) use of insulin; Z77.22 Contact with and (suspected) exposure to environmental tobacco smoke (acute) (chronic); Z93.0 Tracheostomy status; Z87.440 Personal history of urinary (tract) infections; Z82.49 Family history of ischemic heart disease and other diseases of the circulatory system
CPT/HCPCS: 80306; 99283

== ENCOUNTER 2019-03-14 16:54 | Inpatient (IN) | payer MEDICAID ==
[2019-03-14] VITALS (10 sets, daily range): BP systolic 94–118; BP diastolic 54–79
[~2019-03-14] VITALS: Ht 172 cm; Wt 62.9 kg
[2019-03-14] MEDS ORDERED: LACTATED RINGERS 1,000 ML IV ONE ×2 (17:12→18:26)
[2019-03-14 17:18] LABS: BASOPHILS % (AUTO) 0 % (0-10); EOSINOPHILS % (AUTO) 0 % (0-10); HEMATOCRIT 25 % (40-54); HEMOGLOBIN 8.3 G/DL (13.3-17.7); LYMPHOCYTES # (AUTO) 1.2 X 10^3 (1.0-4.0); LYMPHOCYTES % (AUTO) 5 % (12-44); MEAN CORPUSCULAR HEMOGLOBIN 28 PG (25-34); MEAN CORPUSCULAR HGB CONC 33 G/DL (32-36); MEAN CORPUSCULAR VOLUME 85 FL (80-99); MEAN PLATELET VOLUME 8.2 FL (7.4-10.4); MONOCYTES # (AUTO) 1.9 X 10^3 (0.0-1.0); MONOCYTES % (AUTO) 9 % (0-12); NEUTROPHILS # (AUTO) 18.6 X 10^3 (1.8-7.8); NEUTROPHILS % (AUTO) 86 % (42-75); PLATELET COUNT 397 10^3/uL (130-400); RED CELL DISTRIBUTION WIDTH 15.9 % (10.0-14.5); WHITE BLOOD COUNT 21.7 10^3/uL (4.3-11.0)
[2019-03-14 17:21] LABS: BILIRUBIN,URINE NEGATIVE (NEGATIVE); CLARITY,URINE VERY CLOUDY; COLOR,URINE YELLOW; GLUCOSE, URINE (UA) NEGATIVE (NEGATIVE); KETONES,URINE NEGATIVE (NEGATIVE); LEUKOCYTE ESTERASE ,URINE 3+ (NEGATIVE); NITRITE,URINE NEGATIVE (NEGATIVE); PH,URINE 5 (5-9); PROTEIN,URINE 2+ (NEGATIVE); UROBILINOGEN,URINE NORMAL (NORMAL)
[2019-03-14 17:23] LABS: INR 1.1 (0.8-1.4); PROTHROMBIN TIME PATIENT 14.2 SEC (12.2-14.7)
--- NOTE | 2019-03-14 17:29 | ED General ---
General Stated Complaint: UNRESPONSIVE Source of Information: Patient, EMS Exam Limitations: Other (unresponsive) History of Present Illness Date Seen by Provider: Mar 14, 2019 Time Seen by Provider: 17:07 Initial Comments Here by EMS with report of being unresponsive. Patient was to go to [facility], [place] and rehabilitation today. He has been seen multiple times in the last few days and has left AGAINST MEDICAL ADVICE. Recent hospital stay for sepsis and he's had a few events over the last couple of months of sepsis. Did have a fall in December and that resulted in C3 quadriplegia. He has been at home since. Sub sequently has developed sacral ulcer that's been debrided and now ulcer in the region of the coccyx noted. Is not answering questions and only moans regarding pain. He is protecting his airway. EMS reports initial O2 sat of 93% that went to 98% on 2 L via nasal cannula. IV is established. Not reported to be febrile. No report of vomiting. Has had recent visits for shortness of air but does not appear short of air now. Otherwise history limited. Timing/Duration: 1-3 Hours Severity: Moderate, Severe Allergies and Home Medications Allergies Coded Allergies: No Known Drug Allergies (Unverified , 02/15/19) Home Medications Alprazolam 0.25 Mg Tablet, 1 MG PO BID, (Reported) TAKES 4 (0.25MG) TABLETS (UNTIL GONE THEN WILL GET NEW SCRIPT FOR 1MG TABS TW ICE DAILY) Amoxicillin/Potassium Clav 1 Each Tablet, 1 EACH PO BID Prescribed by: PRANAY WADE on 02/23/19 1312 Baclofen 10 Mg Tablet, 5 MG PO TID, (Reported) Citalopram Hydrobromide 10 Mg Tablet, 10 MG PO DAILY Prescribed by: MARGUERITE GAN on 02/05/192036 Enoxaparin Sodium 40 Mg/0.4 Ml Syringe, 40 MG SC 1400, (Reported) FILLED #12 02-07-19 AND THEN THE REST ON 02-20-19 FOR #18 SYRINGES Famotidine 20 Mg Tablet, 20 MG PO BID Prescribed by: MARGUERITE GAN on 02/05/192036 Hydrocodone/Acetaminophen 1 Each Tablet, 1 TAB PO Q6H PRN for PAIN-MODERATE, (Reported) Insulin Detemir 100 Unit/1 Ml Insuln.pen, 15 UNIT SQ am Prescribed by: ELBA CABRERA on 03/04/19846 Insulin Detemir 100 Unit/1 Ml Insuln.pen, 20 UNIT SQ HS Prescribed by: ELBA CABRERA on 03/04/19846 Ipratropium/Albuterol Sulfate 3 Ml Ampul.neb, 3 ML INH RTBID Prescribed by: MARGUERITE GAN on 02/05/192036 Loratadine 10 Mg Tablet, 10 MG PO DAILY Prescribed by: MARGUERITE GAN on 02/05/192036 Melatonin 5 Mg Tablet, 10 MG PO HS, (Reported) Miconazole Nitrate 90 Gm Powder, 0 GM TOP BID Prescribed by: MARGUERITE GAN on 02/05/192036 Midodrine HCl 10 Mg Tablet, 10 MG PO TID Prescribed by: MARGUERITE GAN on 02/05/192036 Montelukast Sodium 10 Mg Tablet, 10 MG PO HS Prescribed by: MARGUERITE GAN on 02/05/192036 Potassium Chloride 10 Meq Tablet.er, 10 MEQ PO DAILY@0700 Prescribed by: MARGUERITE GAN on 02/05/192036 Quetiapine Fumarate 50 Mg Tablet, 50 MG PO HS, (Reported) Sodium Hypochlorite 473 Ml Solution, 0 ML TOP DAILY Prescribed by: MARGUERITE GAN on 02/05/192036 Patient Home Medication List Home Medication List Reviewed: Yes Review of Systems Review of Systems Constitutional: no symptoms reported Unable to determine due to altered mental status Past Gfcvofz-Fzsbjk-Gnnbfm Hx Past Med/Social Hx: Reviewed Nursing Past Med/Soc Hx Patient Social History Alcohol Beverage of Choice: Wine Drug of Choice: THC, + IV METHAMPHETAMINES, PCP, OPIATES, BENZO'S Type Used: Cigarettes 2nd Hand Smoke Exposure: Yes Recent Foreign Travel: No Contact w/Someone Who Travel: No Recent Hopitalizations: Yes (SPINAL CORD INJURY AND AT [place] 7-19 RECENT HOSPITALIZATION FOR SEPSIS) Immunizations Up To Date Tetanus Booster (TDap): Unknown PED Vaccines UTD: Yes Date of Pneumonia Vaccine: Sep 04, 2015 Date of Influenza Vaccine: Apr 05, 2017 Seasonal Allergies Seasonal Allergies: Yes (TALL GRASS, ANIMALS) Past Medical History Surgeries: Yes Abdominal, Bladder Surgery, Orthopedic, Tracheostomy Respiratory: Yes COPD Currently Using CPAP: No Currently Using BIPAP: No Cardiac: No Neurological: Yes Neuropathy, Spinal Cord Injury, Traumatic Brain Injury Reproductive Disorders: No Sexually Transmitted Disease: No Genitourinary: Yes Bladder Infection, UTI-Chronic Gastrointestinal: Yes Gastroesophageal Reflux Musculoskeletal: Yes Chronic Back Pain, Fractures Endocrine: Yes (NON-COMPLIANCE) Diabetes, Insulin dep HEENT: Yes Cataract Cancer: No Psychosocial: Yes (POLYSUBSTANCE ABUSE) Sleep Difficulties, Anxiety Integumentary: Yes (SACRAL DECUBITUS ULCER) Blood Disorders: No Adverse Reaction/Blood Tranf: No Family Medical History Reviewed Nursing Family Hx Abdominal aortic aneurysm 03 MOTHER (DOESN'T KNOW MOM'S MEDICAL HISTORY) Cancer 03 FATHER (TESTICULAR) Family history: Diabetes mellitus 03 FATHER Family history: Hypertension 03 FATHER No Family History of: Family history: Alzheimer's disease Family history: Arthritis Family history: Breast disease Family history: Cardiovascular disease Family history: Gastrointestinal disease Family history: Thyroid disorder Hereditary disease History of - respiratory disease Myocardial infarction Parkinson's disease Seizure disorder Stroke AAA, Diabetes, Hypertension Physical Exam-Suspected Sepsis Physical Exam Vital Signs Vital Signs - First Documented 03/14/19 17:01 Temp 36.2 Pulse 74 Resp 18 B/P (MAP) 103/65 (78) Pulse Ox 99 O2 Delivery Nasal Cannula O2 Flow Rate 2.00 Capillary Refill : Height, Weight, BMI Height: 5'3.00" Weight: 150lbs. 0.3oz. [id number]; 22.00 BMI Method:Stated General Appearance: No Apparent Distress, Chronically ill HEENT: PERRL/EOMI, Other Neck: Non Tender, Supple Respiratory: Lungs Clear, Normal Breath Sounds Cardiovascular: Regular Rate, Rhythm, No Murmur Gastrointestinal: Normal Bowel Sounds, No Pulsatile Mass, Soft, Other (palpable bladder near the level of the umbilicus) Back: Normal Inspection, Other (sacral decub noted that is covered with dressing. There is states she 2+ decub at the area of the coccyx between the buttocks.) Extremity: No Pedal Edema, Other (C3 quadriplegia) Neurologic/Psychiatric: Other (response to pain and mumbles that hurts but otherwise not responding. He is protecting his airway.) Skin: warm/dry, ulcerations (sacral and coccygeal decubiti) Focused Exam Lactate Level 03/14/19 17:03: Lactic Acid Level 1.18 Lactic Acid Level Laboratory Tests Test 03/14/19 17:03 Lactic Acid Level 1.18 MMOL/L (0.50-2.00) Procedures/Interventions Lumen: triple Central Line Procedure: betadine prep, sterile drapes applied, sterile dressing applied Position: internal jugular (R) Anesthesia: Lidocaine Volume Anesthetic (ccs): 3 Complications: none Post Position: sutured, good blood return, position confirmed w/ CXR Somewhat difficult stick due to IJ collapse with deep breathing. Ultimately access obtained [address] Placed via ultrasound guidance. Tolerated procedure well with no complications. Date of ETT Placement: Dec 07, 2018 Progress/Results/Core Measures Suspected Sepsis SIRS Temperature: Pulse: Respiratory Rate: Laboratory Tests 03/14/19 17:03: White Blood Count 21.7H Blood Pressure / Mean: 03/14/19 17:03: Lactic Acid Level 1.18 Laboratory Tests 03/14/19 17:03: Creatinine 3.16#H, INR Comment 1.1, Platelet Count 397, Total Bilirubin 0.3 Results/Orders Lab Results Laboratory Tests Test 03/14/19 17:03 03/14/19 17:15 Range/Units White Blood Count 21.7 H 4.3-11.0 10^3/uL Red Blood Count 2.95 L 4.35-5.85 10^6/uL Hemoglobin 8.3 L 13.3-17.7 G/DL Hematocrit 25 L 40-54 % Mean Corpuscular Volume 85 80-99 FL Mean Corpuscular Hemoglobin 28 25-34 PG Mean Corpuscular Hemoglobin Concent 33 32-36 G/DL Red Cell Distribution Width 15.9 H 10.0-14.5 % Platelet Count 397 130-400 10^3/uL Mean Platelet Volume 8.2 7.4-10.4 FL Neutrophils (%) (Auto) 86 H 42-75 % Lymphocytes (%) (Auto) 5 L 12-44 % Monocytes (%) (Auto) 9 0-12 % Eosinophils (%) (Auto) 0 0-10 % Basophils (%) (Auto) 0 0-10 % Neutrophils # (Auto) 18.6 H 1.8-7.8 X 10^3 Lymphocytes # (Auto) 1.2 1.0-4.0 X 10^3 Monocytes # (Auto) 1.9 H 0.0-1.0 X 10^3 Eosinophils # (Auto) 0.0 0.0-0.3 10^3/uL Basophils # (Auto) 0.0 0.0-0.1 10^3/uL Neutrophils % (Manual) 78 % Lymphocytes % (Manual) 2 % Monocytes % (Manual) 4 % Band Neutrophils 16 % Polychromasia SLIGHT Prothrombin Time 14.2 12.2-14.7 SEC INR Comment 1.1 0.8-1.4 Activated Partial Thromboplast Time 42 H 24-35 SEC Sodium Level 127 L 135-145 MMOL/L Potassium Level 4.4 3.6-5.0 MMOL/L Chloride Level 98 98-107 MMOL/L Carbon Dioxide Level 15 L 21-32 MMOL/L Anion Gap 14 5-14 MMOL/L Blood Urea Nitrogen 35 H 7-18 MG/DL Creatinine 3.16 #H 0.60-1.30 MG/DL Estimat Glomerular Filtration Rate 21 BUN/Creatinine Ratio 11 Glucose Level 181 H 70-105 MG/DL Lactic Acid Level 1.18 0.50-2.00 MMOL/L Calcium Level 8.8 8.5-10.1 MG/DL Corrected Calcium 9.4 8.5-10.1 MG/DL Total Bilirubin 0.3 0.1-1.0 MG/DL Aspartate Amino Transf (AST/SGOT) 16 5-34 U/L Alanine Aminotransferase (ALT/SGPT) 20 0-55 U/L Alkaline Phosphatase 101 40-136 U/L C-Reactive Protein High Sensitivity 28.34 H 0.00-0.50 MG/DL Total Protein 7.3 6.4-8.2 GM/DL Albumin 3.3 3.2-4.5 GM/DL Salicylates Level < 5.0 L 5.0-20.0 MG/DL Acetaminophen Level < 10 L 10-30 UG/ML Serum Alcohol < 10 <10 MG/DL Urine Color YELLOW Urine Clarity VERY CLOUDY H Urine pH 5 5-9 Urine Specific [place] 1.020 1.016-1.022 Urine Protein 2+ H NEGATIVE Urine Glucose (UA) NEGATIVE NEGATIVE Urine Ketones NEGATIVE NEGATIVE Urine Nitrite NEGATIVE NEGATIVE Urine Bilirubin NEGATIVE NEGATIVE Urine Urobilinogen NORMAL NORMAL MG/DL Urine Leukocyte Esterase 3+ H NEGATIVE Urine RBC (Auto) 5+ H NEGATIVE Urine RBC >100 H /HPF Urine WBC TNTC H /HPF Urine Crystals NONE /LPF Urine Bacteria MODERATE H /HPF Urine Casts NONE /LPF Urine Mucus NEGATIVE /LPF Urine Culture Indicated YES Urine Opiates Screen POSITIVE H NEGATIVE Urine Oxycodone Screen NEGATIVE NEGATIVE Urine Methadone Screen NEGATIVE NEGATIVE Urine Propoxyphene Screen NEGATIVE NEGATIVE Urine Barbiturates Screen NEGATIVE NEGATIVE Ur Tricyclic Antidepressants Screen NEGATIVE NEGATIVE Urine Phencyclidine Screen NEGATIVE NEGATIVE Urine Amphetamines Screen NEGATIVE NEGATIVE Urine Methamphetamines Screen NEGATIVE NEGATIVE Urine Benzodiazepines Screen POSITIVE H NEGATIVE Urine Cocaine Screen NEGATIVE NEGATIVE Urine Cannabinoids Screen NEGATIVE NEGATIVE My Orders Orders - MINNIE SALMERON MD Cbc With Automated Diff (03/14/19 17:12) Comprehensive Metabolic Panel (03/14/19 17:12) Blood Culture (03/14/19 17:12) Sputum Culture (03/14/19 17:12) Urinalysis (03/14/19 17:12) Urine Culture (03/14/19 17:12) Protime With Inr (03/14/19 17:12) Partial Thromboplastin Time (03/14/19 17:12) Chest 1 View, Ap/Pa Only (03/14/19 17:12) Ed Iv/Invasive Line Start (03/14/19 17:12) Vital Signs Adult Sepsis Patie Q15M (03/14/19 17:12) O2 (03/14/19 17:12) Remove Rings In Anticipation O (03/14/19 17:12) Lactic Acid Analyzer (03/14/19 17:12) Lactated Ringers (Lr 1000 Ml Iv Solution (03/14/19 17:12) Acetaminophen (03/14/19 17:12) Alcohol (03/14/19 17:12) Hs C Reactive Protein (03/14/19 17:12) Drug Screen Stat (Urine) (03/14/19 17:12) Salicylate (03/14/19 17:12) Catheter(Urinary) Insert & Ass 03,15 (03/14/19 17:17) Manual Differential (03/14/19 17:03) Lactated Ringers (Lr 1000 Ml Iv Solution (03/14/19 18:26) Piperacillin Sodium/Tazobactam (Zosyn Vi (03/14/19 18:30) Medications Given in ED Current Medications Medications Dose Ordered Sig/Leandra Route Start Time Stop Time Status Last Admin Dose Admin Lactated Ringer's 1,000 ml @ 0 mls/hr Q0M ONCE IV 03/14/19 17:12 03/14/19 17:13 DC 03/14/19 17:48 1,000 MLS/HR Lactated Ringer's 1,000 ml @ 0 mls/hr Q0M ONCE IV 03/14/19 18:26 03/14/19 18:28 DC 03/14/19 18:31 1,000 MLS/HR Vital Signs/I&O 03/14/19 17:01 Temp 36.2 Pulse 74 Resp 18 B/P (MAP) 103/65 (78) Pulse Ox 99 O2 Delivery Nasal Cannula O2 Flow Rate 2.00 Capillary Refill : Progress Note : Progress Note Seen and evaluated. IV by EMS. Second IV initiated. LR 1 L bolus. Zamarripa catheter ordered. Labs, blood cultures, chest x-ray, UA with culture and lactic acid or dered. Monitor patient. 183: Patient had episode of hypotension in the 80s. Second IV line placed. Repeat LR 1 L bolus ordered. Due to hypotension, central line placed to the right IJ by me via ultrasound guidance with some difficulty. UA is significantly positive and he has decubitus wounds that I also have concerns about. Patient is exhibiting signs of septic shock. He has had orders for greater than 30 mL/kg bolus. He is protecting his airway without difficulty and is out of percent on 2 L via O2. He is still somnolent. We will initiate Zosyn 4.5 g IV as well as orders for vancomycin due to both the urinary tract infection and sacral and coccygeal wounds. I discussed the case with Dr. Gan and she accepts patient for admission, inpatient status and request Dr. Arcos consult. I discussed the case with Dr. Arcos and he agrees with current plan. Family was updated of the septic shock. Central line placed via emergent condition due to patient unable to consent and no family available at the time. Diagnostic Imaging Diagonstic Imaging: Xray Plain Films/CT/US/NM/MRI: chest Comments Since December good position. No pneumothorax. No obvious infiltrate. Reviewed: Reviewed by Me Departure Communication (Admissions) Time/Spoke to Admitting Phy: 18:29 Time/Spoke to Consulting Phy: 18:32 Impression Primary Impression: Septic shock Additional Impressions: Urinary tract infection Qualified Codes: N30.01 - Acute cystitis with hematuria Decubitus ulcer of sacral region Qualified Codes: L89.159 - Pressure ulcer of sacral region, unspecified stage Decubitus ulcer of coccygeal region Qualified Codes: L89.159 - Pressure ulcer of sacral region, unspecified stage Disposition: 09 ADMITTED INPATIENT Condition: Critical Admissions Decision to Admit Reason: Admit from ER (General) Decision to Admit/Date: Mar 14, 2019 Time/Decision to Admit Time: 18:29 Departure-Patient Inst. Referrals: [facility][1]/K (PCP/Family) Primary Care Physician MINNIE SALMERON MD Mar 14, 2019 17:29
[2019-03-14 17:33] LABS: BACTERIA,URINE MODERATE /HPF; RBC,URINE >100 /HPF; WBC,URINE TNTC /HPF
[2019-03-14 17:38] LABS: BAND NEUTROPHILS 16 %; LYMPHOCYTES % (MANUAL) 2 %; MONOCYTES % (MANUAL) 4 %; NEUTROPHILS % (MANUAL) 78 %; POLYCHROMASIA SLIGHT
[2019-03-14 17:39] LABS: AMPHETAMINE SCREEN, URINE NEGATIVE (NEGATIVE); BARBITURATE SCREEN URINE NEGATIVE (NEGATIVE); BENZODIAZEPINES SCREEN URINE POSITIVE (NEGATIVE); CANNABINOID SCREEN, URINE NEGATIVE (NEGATIVE); COCAINE SCREEN URINE NEGATIVE (NEGATIVE); METHADONE STAT NEGATIVE (NEGATIVE); METHAMPHETAMINE SCREEN URINE S NEGATIVE (NEGATIVE); OPIATE SCREEN URINE POSITIVE (NEGATIVE); OXYCODONE STAT NEGATIVE (NEGATIVE); PROPOXYPHENE STAT NEGATIVE (NEGATIVE); TRICYCLIC ANTIDEPRESSANTS SCRE NEGATIVE (NEGATIVE)
[2019-03-14 17:39] LABS: ALANINE AMINOTRANSFERASE 20 U/L (0-55); ALBUMIN 3.3 GM/DL (3.2-4.5); ALKALINE PHOSPHATASE 101 U/L (40-136); BILIRUBIN,TOTAL 0.3 MG/DL (0.1-1.0); BUN/CREATININE RATIO 11; CALCIUM 8.8 MG/DL (8.5-10.1); CARBON DIOXIDE 15 MMOL/L (21-32); CHLORIDE 98 MMOL/L (98-107); CREATININE SERUM 3.16 MG/DL (0.60-1.30); GFR ESTIMATED 21; GLUCOSE 181 MG/DL (70-105); POTASSIUM 4.4 MMOL/L (3.6-5.0); SALICYLATE < 5.0 MG/DL (5.0-20.0); SODIUM 127 MMOL/L (135-145); TOTAL PROTEIN 7.3 GM/DL (6.4-8.2)
[2019-03-14 17:43] LABS: ACETAMINOPHEN < 10 UG/ML (10-30)
--- NOTE | 2019-03-14 17:58 | NUR ---
1 LITER NS STARTED BY EMS INFUSED AT THIS TIME.
--- NOTE | 2019-03-14 18:00 | NUR ---
DR. SALMERON ORDERS THE NEED FOR A CENTRAL LINE TO BE PLACED. PT UNABLE TO RESPOND TO QUESTIONS AND NO FAMILY IN THE ER. IMPLIED CONSENT FOR PROCEDURE DUE TO SEPTIC SHOCK AND PT NOT RESPONDING.
--- NOTE | 2019-03-14 18:20 | NUR ---
FAMILY CALLED TO CHECK ON PT, FAMILY INFORMED PT WILL BE ADMITED.
[2019-03-14] MEDS ORDERED: PIPERACILLIN SODIUM/TAZOBACTAM 4.5 GM in NS (IVPB) 100 ML IV ONE (18:30)
--- NOTE | 2019-03-14 18:52 | Diagnostic Imaging Report ---
INDICATION: History of trauma, mental status changes. COMPARISON: 03/11/2019. FINDINGS: Single view of the chest demonstrates interval placement of right IJ catheter. The tip is in the SVC-right atrial junction. There is no pneumothorax. Lungs are clear. Multiple orthopedic plates are seen on several ribs on the right. The heart is slightly enlarged without pulmonary edema. There is no effusion. IMPRESSION: No acute cardiopulmonary findings. No pneumothorax. Dictated by: Dictated on workstation # [id number]
--- NOTE | 2019-03-14 19:25 | NUR ---
TOTAL OF 3 LITERS OF FLUIDS GIVEN BEFORE TRANSFER TO THE ICU, 1 LITER NS STARTED BY EMS AND 2 LITERS LR IN THE ER.
--- NOTE | 2019-03-14 19:35 | NUR ---
SHIMON LOOGEETHA Medrano admitted to room CU5-1, with an admitting diagnosis of Septic shock, UTI, Multiple Decub ulcers, on 03/14/19 from ED via stretcher, accompanied by staff.[place] LOO introduced to surroundings, call light, bed controls, phone, TV, temperature control, lights, meal times, smoking policy, visitor policy, side rail policy, bathrooms and showers. Patient Rights given to patient in the handbook. VIR[place]IA LOO unable to verbalize understanding at this time that [facility] is not responsible for the loss or damage to any personal effects or valuables that are kept in the patients possession during their hospitalization. The following Patient Care Plans were discussed with the patient: Discharge Planning, pain management,room orientation, and activity. VIR[place]IA LOO unable to verbalize understanding of Interdisciplinary Patient Education at this time d/t patient condition. Patient and/or family were informed about the Rapid Response Team and its purpose.
[2019-03-14] MEDS ORDERED: VANCOMYCIN 1 GM/NS 250 ML IVPB IV NR ×2 (20:00)
--- NOTE | 2019-03-14 20:08 | NUR ---
CR 3.16; CR CL ~21; WT 56.7 KG; VANCO 1000 MG IV BOLUS THEN 750 MG IV Q24H X 3 DAYS
[2019-03-14] MEDS ORDERED: EPINEPHrine 1 MG INJECTION 2 MG in NS (IVPB) 250 ML IV SCH (20:15)
[2019-03-14] MEDS: NOREPINEPHRINE 4 MG in NS (IVPB) 250 ML IV SCH ×2 (20:24→23:45)
[2019-03-14] MEDS: VASOPRESSIN INJECTION 20 UNIT in NORMAL SALINE 100 ML IV SCH (20:24)
[2019-03-14] MEDS: LACTATED RINGERS 1,000 ML IV SCH ×2 (20:27→23:45)
[2019-03-14] MEDS: ENOXAPARIN 40 MG/0.4 ML (LOVENOX) SYR SC SCH (21:22)
[2019-03-15] VITALS (25 sets, daily range): BP systolic 83–151; BP diastolic 56–101
[2019-03-15] MEDS ORDERED: RT-ALBUTEROL SULF 2.5 MG/3 ML PRE-MIX VIAL INH PRN ×2 (00:45→05:30)
[2019-03-15] MEDS: PIPERACILLIN/TAZO 4.5 GM/NS 100 ML IV SCH ×6 (00:48→16:10)
[2019-03-15 03:39] LABS: BASOPHILS % (AUTO) 0 % (0-10); EOSINOPHILS % (AUTO) 0 % (0-10); HEMATOCRIT 23 % (40-54); HEMOGLOBIN 7.4 G/DL (13.3-17.7); LYMPHOCYTES # (AUTO) 1.1 X 10^3 (1.0-4.0); LYMPHOCYTES % (AUTO) 6 % (12-44); MEAN CORPUSCULAR HEMOGLOBIN 28 PG (25-34); MEAN CORPUSCULAR HGB CONC 33 G/DL (32-36); MEAN CORPUSCULAR VOLUME 86 FL (80-99); MEAN PLATELET VOLUME 7.9 FL (7.4-10.4); MONOCYTES # (AUTO) 1.2 X 10^3 (0.0-1.0); MONOCYTES % (AUTO) 6 % (0-12); NEUTROPHILS # (AUTO) 16.7 X 10^3 (1.8-7.8); NEUTROPHILS % (AUTO) 88 % (42-75); PLATELET COUNT 362 10^3/uL (130-400); RED CELL DISTRIBUTION WIDTH 15.8 % (10.0-14.5)
[2019-03-15] MEDS: LACTATED RINGERS 1,000 ML IV SCH ×3 (03:56→17:14)
[2019-03-15 04:14] LABS: CALCIUM 8.4 MG/DL (8.5-10.1); CREATININE SERUM 1.55 MG/DL (0.60-1.30); MAGNESIUM 1.9 MG/DL (1.6-2.4); PHOSPHORUS 4.1 MG/DL (2.3-4.7); POTASSIUM 3.7 MMOL/L (3.6-5.0)
[2019-03-15] MEDS: VASOPRESSIN INJECTION 20 UNIT in NORMAL SALINE 100 ML IV SCH ×3 (04:37→21:04)
[2019-03-15] MEDS: POTASSIUM CL 10MEQ/50ML IVPB 50 ML IV SCH (04:38)
[2019-03-15] MEDS: KCL 20 MEQ TAB (K-DUR) PO SCH (04:38)
[2019-03-15] MEDS: MAGNESIUM 1 GM/100 ML IVPB 100 ML IV SCH (04:38)
--- NOTE | 2019-03-15 05:07 | Pulmonary Consultation ---
History of Present Illness History of Present Illness Date of Consultation 03/15/19 05:02 Date of Admission Allergies and Home Medications Allergies Coded Allergies: No Known Drug Allergies (Unverified , 02/15/19) Home Medications Alprazolam 0.25 Mg Tablet, 0.25 MG PO QID, (Reported) Baclofen 10 Mg Tablet, 5 MG PO TID, (Reported) Citalopram Hydrobromide 10 Mg Tablet, 10 MG PO DAILY, (Reported) Enoxaparin Sodium 40 Mg/0.4 Ml Syringe, 40 MG SC 1400, (Reported) FILLED #12 02-07-19 AND THEN THE REST ON 02-20-19 FOR #18 SYRINGES Famotidine 20 Mg Tablet, 20 MG PO BID, (Reported) Hydrocodone/Acetaminophen 1 Each Tablet, 1 TAB PO Q6H PRN for PAIN-MODERATE, (Reported) Insulin Detemir 100 Unit/1 Ml Insuln.pen, 15 UNIT SQ DAILY, (Reported) LAST FILLED 02-06-19 Insulin Detemir 100 Unit/1 Ml Insuln.pen, 20 UNIT SQ HS, (Reported) LAST FILLED 02-06-19 Ipratropium/Albuterol Sulfate 3 Ml Ampul.neb, 3 ML NEB BID PRN for SHORTNESS OF BREATH, (Reported) Loratadine 10 Mg Tablet, 10 MG PO DAILY, (Reported) LAST FILLED #30 02-06-19 Melatonin 5 Mg Tablet, 10 MG PO HS, (Reported) Miconazole Nitrate 90 Gm Powder, TP BID, (Reported) LAST FILLED 01-29-19 Midodrine HCl 10 Mg Tablet, 10 MG PO TID, (Reported) LAST FILLED #90 02-06-19 Montelukast Sodium 10 Mg Tablet, 10 MG PO DAILY, (Reported) LAST FILLED #30 02-06-19 Quetiapine Fumarate 50 Mg Tablet, 50 MG PO HS, (Reported) Sennosides 8.6 Mg Tablet, 8.6 MG PO BID PRN for CONSTIPATION-5TH LINE, ( Reported) Sodium Hypochlorite 473 Ml Solution, 0 ML TOP DAILY Prescribed by: MARGUERITE GAN on 02/05/192036 Past Hswdknx-Ayvatx-Aovyhx Hx Past Med/Social Hx: Reviewed Nursing Past Med/Soc Hx Patient Social History Alcohol Use: Denies Use Number of Drinks Today: Alcohol Beverage of Choice: Wine Recreational Drug Use: Yes (10 YEARS AGO) Drug of Choice: THC, + IV METHAMPHETAMINES, PCP, OPIATES, BENZO'S Smoking Status: Unknown if Ever Smoked Type Used: Cigarettes 2nd Hand Smoke Exposure: Yes Recent Foreign Travel: No Contact w/Someone Who Travel: No Recent Infectious Disease Expo: No Recent Hopitalizations: Yes (SPINAL CORD INJURY AND AT [place] 7-19 RECENT HOSPITALIZATION FOR SEPSIS) Physical Abuse: No Sexual Abuse: No Mistreated: No Fear: No Immunizations Up To Date Tetanus Booster (TDap): Unknown PED Vaccines UTD: Yes Date of Pneumonia Vaccine: Sep 04, 2015 Date of Influenza Vaccine: Apr 05, 2017 Seasonal Allergies Seasonal Allergies: Yes (TALL GRASS, ANIMALS) Past Medical History Surgeries: Yes Abdominal, Bladder Surgery, Orthopedic, Tracheostomy Respiratory: Yes COPD Currently Using CPAP: No Currently Using BIPAP: No Cardiac: No Neurological: Yes Neuropathy, Spinal Cord Injury, Traumatic Brain Injury Reproductive Disorders: No Sexually Transmitted Disease: No Genitourinary: Yes Bladder Infection, UTI-Chronic Gastrointestinal: Yes Gastroesophageal Reflux Musculoskeletal: Yes Chronic Back Pain, Fractures Endocrine: Yes (NON-COMPLIANCE) Diabetes, Insulin dep HEENT: Yes Cataract Cancer: No Psychosocial: Yes (POLYSUBSTANCE ABUSE) Sleep Difficulties, Anxiety Nursing Suicide Risk Notes: PT NOT RESPONDING TO QUESTIONS. Integumentary: Yes (SACRAL DECUBITUS ULCER) Blood Disorders: No Adverse Reaction/Blood Tranf: No Family Medical History Reviewed Nursing Family Hx Abdominal aortic aneurysm 03 MOTHER (DOESN'T KNOW MOM'S MEDICAL HISTORY) Cancer 03 FATHER (TESTICULAR) Family history: Diabetes mellitus 03 FATHER Family history: Hypertension 03 FATHER No Family History of: Family history: Alzheimer's disease Family history: Arthritis Family history: Breast disease Family history: Cardiovascular disease Family history: Gastrointestinal disease Family history: Thyroid disorder Hereditary disease History of - respiratory disease Myocardial infarction Parkinson's disease Seizure disorder Stroke AAA, Diabetes, Hypertension Sepsis Event Evaluation Height, Weight, BMI Height: 5'3.00" Weight: 150lbs. 0.3oz. 68.434876oh; 22.17 BMI Method:Stated Exam Exam Vital Signs Date Time Temp Pulse Resp B/P (MAP) Pulse Ox O2 Delivery O2 Flow Rate FiO2 03/15/19 03:45 36.3 Nasal Cannula 1.00 03/15/19 03:20 99 Nasal Cannula 1.00 03/15/19 03:00 79 14 127/65 (85) 100 Nasal Cannula 1.00 03/15/19 02:32 72 03/15/19 02:00 85 14 127/98 (108) 99 Nasal Cannula 1.00 03/15/19 01:00 134/67 (89) Nasal Cannula 1.00 03/15/19 00:36 67 99 03/15/19 00:00 67 16 93/59 (70) 99 Nasal Cannula 1.00 03/14/19 23:45 36.2 75 17 96/54 (68) 98 Nasal Cannula 1.00 03/14/19 23:45 98 Nasal Cannula 1.00 03/14/19 22:00 74 15 97/61 (73) 99 Nasal Cannula 1.00 03/14/19 21:30 76 15 98/73 (81) 99 Nasal Cannula 1.00 03/14/19 21:15 71 15 109/79 (89) 99 Nasal Cannula 1.00 03/14/19 21:00 79 17 116/75 (89) 99 Nasal Cannula 1.00 03/14/19 20:45 73 14 105/60 (75) 99 Nasal Cannula 1.00 03/14/19 20:35 99 Nasal Cannula 2.00 03/14/19 20:30 74 15 118/70 (86) 99 Nasal Cannula 1.00 03/14/19 20:27 Nasal Cannula 1.00 03/14/19 20:15 73 17 105/68 (80) 100 Nasal Cannula 2.00 03/14/19 20:00 74 15 95/61 (72) 100 Nasal Cannula 2.00 03/14/19 19:43 76 03/14/19 19:40 36.0 73 15 94/65 (75) 99 Nasal Cannula 2.00 03/14/19 19:31 35.3 75 16 102/61 (78) 100 Nasal Cannula 1.00 03/14/19 17:01 36.2 74 18 103/65 (78) 99 Nasal Cannula 2.00 I & O 03/15/19 07:00 Intake Total 7360 ml Output Total 2900 ml Balance 4460 ml Height & Weight Height: 5'3.00" Weight: 150lbs. 0.3oz. 68.501612rc; 22.17 BMI Method:Stated General Appearance: No Apparent Distress, Chronically ill HEENT: PERRL/EOMI, Other Neck: Non Tender, Supple Respiratory: Lungs Clear, Normal Breath Sounds Cardiovascular: Regular Rate, Rhythm, No Murmur Capillary Refill: Less Than 3 Seconds Extremity: No Pedal Edema, Other (C3 quadriplegia) Neurologic/Psychiatric: Other (response to pain and mumbles that hurts but otherwise not responding. He is protecting his airway.) Results Lab Laboratory Tests 03/14/19 17:03 03/15/19 03:20 Assessment/Plan Assessment/Plan Severe sepsis with shock probably from UTI -Zosyn and vanco -IVF -Levophed Hx of COPD -SVNs -Monitor Neurogenic bladder DM Spinal cord injury C1-C4 Anxiety ALONDRA HUSSEIN DO Mar 15, 2019 05:07
[2019-03-15] MEDS ORDERED: HYDROCORTISONE 100 MG/2 ML (Solu-CORTEF) VIAL ONE (05:39)
[2019-03-15] MEDS: HYDROCORTISONE 100 MG/2 ML (Solu-CORTEF) VIAL IV SCH ×3 (05:44→21:25)
[2019-03-15] MEDS: inSUlin ASPART (NovoLOG) 1 UNIT/0.01 ML (CHARGE PER UNIT) SC SCH ×3 (05:44→17:14)
[2019-03-15] MEDS: RT-ALBUTEROL SULF 2.5 MG/3 ML PRE-MIX VIAL INH SCH ×4 (06:55→18:15)
--- NOTE | 2019-03-15 07:38 | Diagnostic Imaging Report ---
Indication: Shortness of breath. Portable chest 1:17 AM Findings: Right IJ central tip projects over the SVC. Heart size and pulmonary vascularity are normal. Lungs are clear. There are no effusions or pneumothoraces. Patient has had interval fixation of the right fourth through ninth ribs. Impression: Stable chest. No acute abnormality seen. Dictated by: Dictated on workstation # [id number]
[2019-03-15] MEDS ORDERED: RT-ALBUTEROL SULF 2.5 MG/3 ML PRE-MIX VIAL INH SCH (08:00)
[2019-03-15] MEDS ORDERED: FAMO20TA3 PO (09:24)
[2019-03-15] MEDS ORDERED: CITA10TA7 PO (09:24)
[2019-03-15] MEDS ORDERED: MICO90PO TP (10:04)
[2019-03-15] MEDS ORDERED: LORA10TA7 PO (10:04)
[2019-03-15] MEDS ORDERED: IPRA3AMP31 NEB (10:04)
[2019-03-15] MEDS ORDERED: MONT10TA21 PO (10:04)
[2019-03-15] MEDS ORDERED: SENN-141 PO (10:04)
[2019-03-15] MEDS ORDERED: MIDO10TA PO (10:04)
[2019-03-15] MEDS ORDERED: INSU100I29 SQ ×2 (10:04)
--- NOTE | 2019-03-15 10:08 | NUR ---
CALLED AND SPOKE WITH THE PATIENTS TO TRY AND GET AN UPDATED LIST OF MEDICATIONS. SHE WAS NOT HAPPY TO BE SPEAKING WITH ME AND STATES WE SHOULD KNOW WHAT HE TAKES. I HAD ALREADY GOTTEN A LIST OF MEDICATIONS FILLED FROM [facility] AND [facility] AND WENT THROUGH THAT LIST WITH HER. SHE STATES HE IS TAKING WHAT I ASK HER ABOUT DESPITE SOME OF THEM BEING PAST DUE FOR REFILL. SHE STATES IF HE HASN'T REFILLED THEM IT IS THE PHARMACIES FAULT. WHEN I ASKED HER TO TELL ME WHAT BOTTLES SHE HAS THERE AND WHAT SHE GIVES HIM DAILY SHE STATED SHE WAS TIRED OF DOING EVERYONE'S JOB BUT DID READ ME OFF THE BOTTLES SHE HAD THERE WITH HER. SHE DID NOT LIST POTASSIUM, OR TRAMADOL. I REMOVED THEM FROM THE MED REC, THEY ARE PAST DUE FOR REFILL WELL. SHE ALSO LISTED LYRICA, I STATED IT WAS NOT ON THE LIST FROM [facility] OR WHAT WE HAD ON FILE FROM HIS PREVIOUS ADMISSIONS. SHE STATES HE NEEDS IT AND SHES NOT GOING TO STOP GIVING IT TO HIM JUST BECAUSE WE DON'T THINK HE NEEDS IT. I ASKED WHAT STRENGTH IT WAS IF SHE HAD THE BOTTLE THERE AND SHE YELLED AT ME TO GET IT FROM [facility]. I ENDED THE CONVERSATION WITH HER AT THIS TIME AND UPDATED THE MED REC TO THE BEST OF MY ABILITY. [facility] HAS NOT FILLED LYRICA 150MG TID #84 SINCE 11-29-18. I DID NOT PUT IT ON THE MED REC AT THIS TIME. SHE STATES HE IS STILL USING THE LOVENOX INJECTIONS AND THEY ARE NOT OUT OF THEM DESPITE THEM BEING FILLED #12 SYRINGES ON 02-07-19 AND THE REMAINING #18 SYRINGES ON 02-20-19. I LEFT IT ON THE MED REC. [facility] FILLED LOTRIMIN POWDER ON 01-29-19, SHE STATES THEY STILL USE IT BID. THEY ALSO HAVE DAKINS SOLUTION READY FOR CORE STICKER WHICH SHE ALSO STATES THEY ARE STILL USING. LEVEMIR WAS LAST FILLED 15 UNITS BID 02-06-19 HOWEVER SHE STATES THEY NOW DO 15AM AND 20 HS. ALPRAZOLAM WAS JUST REFILLED 03-12-19 FOR THE 0.25MG QID #112. THE PATIENT AND HAVE TOLD ME EACH TIME HE HAS BEEN ADMITTED THIS IS INCORRECT, HE IS SUPPOSED TO BE TAKING 1MG BID. HOWEVER IT IS STILL BEING DISPENSED THAT WAY SO I ENTERED IT IT WAS PRESCRIBED. SHE STATES SHE GIVES HIM 4 AT A TIME AND THEY RUN OUT BEFORE IT IS ABLE TO BE REFILLED. HE TAKES MELATONIN 10MG HS OTC.
[2019-03-15] MEDS: fentaNYL INJECTION 100 MCG/2 ML AMP IVP PRN ×3 (10:27→21:26)
--- NOTE | 2019-03-15 12:16 | History & Physical-Hospitalist ---
SANGEETHA ROSALES [facility] 03/15/19 1216: History of Present Illness HPI/Chief Complaint HPI: Patient was unresponsive but awake. Information was not obtainable via patient because he is severely obtunded. He was brought into the ER unresponsive. His nurse states that was wasn't arousable yesterday and was just commenting on how much pain he was in. Today he was confused and not sure of where he was at or what was occurring. He has a history of several episodes fo sepsis in the past months as well as suffering from a sacral ulcer that has been surgically debrided. He is also a C3 partial quadriplegic. He also has been known to leave AMA once he comes to, which was stated by the nurse. Source: RN/MD, other Exam Limitations: clinical condition Date Seen 03/15/19 Time Seen by a Provider: 11:15 Attending Physician Paola Gan DO [facility] Referring Physician Date of Admission Mar 14, 2019 at 18:40 Home Medications & Allergies Home Medications Reviewed patient Home Medication Reconciliation performed by pharmacy medication reconciliations process environmental technician and/or nursing. Patients Allergies have been reviewed. Allergies Allergies Coded Allergies No Known Drug Allergies (Unverified02/15/19) Past Wmzyrng-Ahwwam-Wytjbt Hx Past Med/Social Hx: Reviewed Nursing Past Med/Soc Hx Patient Social History Marrital Status: Employed/Student: unemployed Alcohol Use: Denies Use Number of Drinks Today: Alcohol Beverage of Choice: Wine Recreational Drug Use: Yes (10 YEARS AGO) Drug of Choice: THC, + IV METHAMPHETAMINES, PCP, OPIATES, BENZO'S Smoking Status: Unknown if Ever Smoked Type Used: Cigarettes 2nd Hand Smoke Exposure: Yes Recent Foreign Travel: No Contact w/other who traveled: No Recent Hopitalizations: Yes (SPINAL CORD INJURY AND AT [place] 7-19 RECENT HOSPITALIZATION FOR SEPSIS) Recent Infectious Disease Expo: No Immunizations Up To Date Tetanus Booster (TDap): Unknown Pediatric: Yes Date of Pneumonia Vaccine: Sep 04, 2015 Date of Influenza Vaccine: Apr 05, 2017 Seasonal Allergies Seasonal Allergies: Yes (TALL GRASS, ANIMALS) Past Medical History Surgeries: Abdominal, Bladder Surgery, Orthopedic, Tracheostomy C3-C7 neurosurgery with decompression laminectomy, rib plating right Respiratory: Pneumonia Currently Using CPAP: No Currently Using BIPAP: No Neurological: Neuropathy, Spinal Cord Injury, Traumatic Brain Injury Reproductive: No Sexually Transmitted Disease: No Genitourinary: Bladder Infection, UTI-Chronic Gastrointestinal: Gastroesophageal Reflux Musculoskeletal: Chronic Back Pain, Fractures Quad Endocrine: Diabetes, Insulin dep HEENT: Cataract Psychosocial: Sleep Difficulties, Anxiety History of Blood Disorders: No Adverse Reaction to Blood Mcclellan: No Family History Reviewed Nursing Family Hx Abdominal aortic aneurysm 03 MOTHER (DOESN'T KNOW MOM'S MEDICAL HISTORY) Cancer 03 FATHER (TESTICULAR) Family history: Diabetes mellitus 03 FATHER Family history: Hypertension 03 FATHER No Family History of: Family history: Alzheimer's disease Family history: Arthritis Family history: Breast disease Family history: Cardiovascular disease Family history: Gastrointestinal disease Family history: Thyroid disorder Hereditary disease History of - respiratory disease Myocardial infarction Parkinson's disease Seizure disorder Stroke AAA, Diabetes, Hypertension Review of Systems ROS-Unable to Obtain: Patient was unable to give any response about himself and his condition Physical Exam Physical Exam Vital Signs Vital Signs - First Documented 03/14/19 17:01 Temp 36.2 Pulse 74 Resp 18 B/P (MAP) 103/65 (78) Pulse Ox 99 O2 Delivery Nasal Cannula O2 Flow Rate 2.00 Capillary Refill : Less Than 3 Seconds Height, Weight, BMI Height: 5'3.00" Weight: 150lbs. 0.3oz. 68.673041ly; 22.17 BMI Method:Stated General Appearance: Chronically ill, Other (AOx1) Eyes: Bilateral Eye Normal Inspection, Bilateral Eye PERRL, Bilateral Eye EOMI HEENT: PERRL/EOMI Respiratory: Chest Non Tender, Lungs Clear, Normal Breath Sounds, No Accessory Muscle Use, No Respiratory Distress Cardiovascular: Regular Rate, Rhythm, No Edema, No Gallop, No JVD, No Murmur Neurologic/Psychiatric: Alert Skin: Normal Color, Warm/Dry Lymphatic: No Adenopathy Results Results/Procedures Labs Laboratory Tests 03/14/19 17:03 03/15/19 03:20 Patient resulted labs reviewed. Assessment/Plan Admission Diagnosis Sepsis and possible UTI Admission Status: Inpatient Order (span 2 midnights) Reason for Inpatient Admission: Patient is obtunded and not fit to leave and take care of themself. Assessment and Plan Assessment: 1. UTI/urosepsis 2. Obtunded 3. Chronic Pain 4. History of sacral and other pressure ulcers 5. Hypotensive Plan: 1. Treat the underlying infection 2. Fluids to treat hypotension 3. Pain management 4. Observe and manage ulcer. 5. Reposition frequently. Critical Care Critically Ill Patient (obtunded and possibly septic.) Clinical Quality Measures DVT/VTE Risk/Contraindication: Risk Factor Score Per Nursin RFS Level Per Nursing on Admit: 4+=Very High PAOLA GAN DO 03/15/19 1829: History of Present Illness HPI/Chief Complaint Chief complaint: Septic shock HPI: This is a 53yoWM known to me from a 30 day stay in inpatient rehab following quadriplegia following a fall, sent over to [facility], who presents after leaving [facility] the last three admissions last time for decubitus ulcer debridement, who presented to the ER found to have septic shock and systolic BP of 80, found to have his goodman catheter removed and uncertain who did that and found to have extremely distended bladder so goodman catheter was re-inserted, Pt was given aggressive IV fluids and empiric antibiotics of Zosyn and Vanc due to Pseudomonas bacteremia sepsis before and Pt was placed in the ICU. In addition to his previous decubitus ulcer, he has another decubitus ulcer. He was set to go to [facility] yesterday but instead is admitted for septic shock. Past Snrwpqz-Gmgsja-Btqthf Hx Family History Abdominal aortic aneurysm 03 MOTHER (DOESN'T KNOW MOM'S MEDICAL HISTORY) Cancer 03 FATHER (TESTICULAR) Family history: Diabetes mellitus 03 FATHER Family history: Hypertension 03 FATHER No Family History of: Family history: Alzheimer's disease Family history: Arthritis Family history: Breast disease Family history: Cardiovascular disease Family history: Gastrointestinal disease Family history: Thyroid disorder Hereditary disease History of - respiratory disease Myocardial infarction Parkinson's disease Seizure disorder Stroke Review of Systems Constitutional: see HPI Assessment/Plan Admission Diagnosis Septic shock Poor prognosis halfway Admission Status: Inpatient Order (span 2 midnights) Reason for Inpatient Admission: Septic shock Diagnosis/Problems Diagnosis/Problems (1) Septic shock Status: Acute (2) Quadriplegia Status: Acute Supervisory-Addendum Brief Verification & Attestation Participated in pt care: history, MDM, physical Personally performed: exam, history, MDM, supervision of care Care discussed with: Medical Student Procedures: n/a Results interpretation: Verified all documentation Verification and Attestation of Medical Student E/M Service A medical student performed and documented this service in my presence. I reviewed and verified all information documented by the medical student and made modifications to such information, when appropriate. I personally performed the physical exam and medical decision making. Paola Gan, Mar 15, 2019,18:21 SANGEETHA ROSALES [facility] Mar 15, 2019 12:16 PAOLA GAN DO Mar 15, 2019 18:21
--- NOTE | 2019-03-15 12:52 | NUR ---
RD ASSESSMENT PMHx: DM, GERD, decubitus ulcer (sacral), Partial quadriplegia Pt was semi-awake and pleasant during nutrition assessment. Pt states current appetite is "pretty good," and has been for past few weeks. Pt states no issues with n/v/d/c at this time. Pt states unsure of last BM. Note unable to determine, per chart review. Abnormal nutrition-related lab values: CL 110 (H); BUN 23 (H); cr 1.55 (H); glu 271 (H); Hgb 7.4 (L); Hct 23 (L); Ca 8.4 (L) Est. kcal needs: 6027-6683 kcal (25-30 kcal/kg) Est. Pro needs: 79-99 g Pro (1.2-1.5 g Pro/kg) PES Statement: Inadequate protein intake related to increased protein needs as evidenced by wound (decubitus sacral ulcer) INTERVENTION: Continue with current diet order of NPO. Advance to CHO 60g/m 3snack when medically able. Pt would benefit from nutritional supplementation for increased protein. Add Ensure Enlive (biju) to meals BID, when medically able. Provides 350 kcal and 20 g Pro per serving. MONITOR/EVALUATE: Diet Advancement PO Intake Wt Status Hydration Status Lab values Felipe Fam, MS, RD [phone]
[2019-03-15] MEDS: NOREPINEPHRINE 4 MG in NS (IVPB) 250 ML IV SCH (16:09)
[2019-03-15] MEDS ORDERED: VANCOMYCIN 750 MG/NS 250 ML IVPB IV SCH ×2 (20:00)
[2019-03-15] MEDS: ENOXAPARIN 40 MG/0.4 ML (LOVENOX) SYR SC SCH (21:26)
[2019-03-16] VITALS (24 sets, daily range): BP systolic 118–195; BP diastolic 66–114
[2019-03-16] MEDS: LACTATED RINGERS 1,000 ML IV SCH ×4 (00:15→20:45)
[2019-03-16] MEDS: inSUlin ASPART (NovoLOG) 1 UNIT/0.01 ML (CHARGE PER UNIT) SC SCH ×5 (00:23→23:17)
--- NOTE | 2019-03-16 00:24 | NUR ---
PT EXTREMELY AGITATED AND CONFUSED, REFUSES TO LET THIS RN OBTAIN A BLOOD GLUCOSE. THIS RN ATTEMPTED EDUCATION AND TO ORIENT PT. PT CUSSING AT THIS RN SAYING "YOU WILL NOT FUCKING TAKE MY BLOOD SUGAR." WILL CONTINUE TO MONITOR.
[2019-03-16] MEDS: fentaNYL INJECTION 100 MCG/2 ML AMP IVP PRN ×3 (00:26→18:48)
[2019-03-16] MEDS: PIPERACILLIN/TAZO 4.5 GM/NS 100 ML IV SCH ×6 (01:50→17:11)
[2019-03-16] MEDS: NOREPINEPHRINE 4 MG in NS (IVPB) 250 ML IV SCH ×3 (02:05→21:36)
[2019-03-16 04:02] LABS: BASOPHILS % (AUTO) 0 % (0-10); EOSINOPHILS % (AUTO) 0 % (0-10); LYMPHOCYTES # (AUTO) 1.5 X 10^3 (1.0-4.0); LYMPHOCYTES % (AUTO) 10 % (12-44); MEAN CORPUSCULAR HEMOGLOBIN 28 PG (25-34); MEAN CORPUSCULAR HGB CONC 32 G/DL (32-36); MEAN CORPUSCULAR VOLUME 87 FL (80-99); MEAN PLATELET VOLUME 8.2 FL (7.4-10.4); MONOCYTES # (AUTO) 0.7 X 10^3 (0.0-1.0); MONOCYTES % (AUTO) 5 % (0-12); NEUTROPHILS # (AUTO) 12.8 X 10^3 (1.8-7.8); NEUTROPHILS % (AUTO) 86 % (42-75); PLATELET COUNT 398 10^3/uL (130-400); RED CELL DISTRIBUTION WIDTH 15.8 % (10.0-14.5)
[2019-03-16 04:08] LABS: HEMATOCRIT 17 % (40-54)
[2019-03-16 04:09] LABS: HEMOGLOBIN 5.3 G/DL (13.3-17.7)
[2019-03-16 04:25] LABS: BUN/CREATININE RATIO 19; CALCIUM 8.4 MG/DL (8.5-10.1); CARBON DIOXIDE 20 MMOL/L (21-32); CHLORIDE 113 MMOL/L (98-107); CREATININE SERUM 0.74 MG/DL (0.60-1.30); GFR ESTIMATED > 60; GLUCOSE 167 MG/DL (70-105); MAGNESIUM 1.7 MG/DL (1.6-2.4); PHOSPHORUS 3.1 MG/DL (2.3-4.7); SODIUM 143 MMOL/L (135-145)
[2019-03-16 04:55] LABS: HEMOGLOBIN 6.5 G/DL (13.3-17.7)
[2019-03-16] MEDS: VASOPRESSIN INJECTION 20 UNIT in NORMAL SALINE 100 ML IV SCH ×3 (05:49→22:51)
[2019-03-16] MEDS: MAGNESIUM 1 GM/100 ML IVPB 100 ML IV SCH (06:18)
[2019-03-16] MEDS: HYDROCORTISONE 100 MG/2 ML (Solu-CORTEF) VIAL IV SCH ×3 (06:18→21:58)
[2019-03-16] MEDS: KCL 20 MEQ TAB (K-DUR) PO SCH (06:18)
[2019-03-16] MEDS: POTASSIUM CL 10MEQ/50ML IVPB 50 ML IV SCH ×7 (06:18→08:56)
--- NOTE | 2019-03-16 07:00 | NUR ---
Report received and this RN assuming care of patient. Pt answers orientation questions but does not know year. He follows commands but becomes agitated easily. He allowed assessment at this time. Pt will tell me that he doesn't need anything but as soon as this RN walks out the room he yells for help. Attempts to reorient patient made. Pt tells me he is the president and tells me to "back off" several times. VSS, continuing to monitor.
--- NOTE | 2019-03-16 07:38 | Pulmonary Progress Note ---
Subjective Time Seen by a Provider: 07:35 Subjective/Events-last exam Pt's Hb has dropped on this AM's labs. Sepsis Event Evaluation Height, Weight, BMI Height: 5'3.00" Weight: 150lbs. 0.3oz. 68.305659da; 22.17 BMI Method:Stated Focused Exam Lactate Level 03/14/19 17:03: Lactic Acid Level 1.18 Exam Exam Vital Signs Date Time Temp Pulse Resp B/P (MAP) Pulse Ox O2 Delivery O2 Flow Rate FiO2 03/16/19 07:00 75 03/16/19 06:00 83 19 171/93 (119) 97 Room Air 03/16/19 05:00 76 19 163/97 (119) 96 Room Air 03/16/19 04:00 79 14 145/99 (114) 96 Room Air 03/16/19 03:59 96 Room Air 03/16/19 03:30 37.2 03/16/19 03:00 88 12 139/66 (90) 95 Room Air 03/16/19 02:00 83 14 127/66 (86) 96 Room Air 03/16/19 01:02 92 03/16/19 01:00 90 28 118/78 (91) 96 Room Air 03/16/19 00:08 36.6 03/16/19 00:08 Room Air 03/16/19 00:00 96 Nasal Cannula 1.00 03/16/19 00:00 84 13 148/83 (104) 95 Nasal Cannula 1.00 03/15/19 23:00 80 13 134/87 (103) 96 Nasal Cannula 1.00 03/15/19 22:00 80 13 121/76 (91) 94 Nasal Cannula 1.00 03/15/19 21:00 87 17 116/67 (83) 97 Nasal Cannula 1.00 03/15/19 20:00 85 16 120/57 (78) 97 Nasal Cannula 1.00 03/15/19 20:00 96 Nasal Cannula 1.00 03/15/19 19:58 36.6 03/15/19 19:00 83 18 109/58 (75) 97 Nasal Cannula 1.00 03/15/19 19:00 83 03/15/19 18:00 69 14 88/56 (67) 100 Nasal Cannula 1.00 03/15/19 17:00 82 16 106/76 (86) 97 Nasal Cannula 1.00 03/15/19 16:00 36.6 03/15/19 16:00 98 Nasal Cannula 1.00 03/15/19 16:00 87 22 101/75 (84) 98 Nasal Cannula 1.00 03/15/19 15:00 81 16 124/75 (91) 98 Nasal Cannula 1.00 03/15/19 14:00 81 16 130/73 (92) 99 Nasal Cannula 1.00 03/15/19 13:00 66 15 83/58 (66) 98 Nasal Cannula 1.00 03/15/19 12:33 75 03/15/19 12:00 36.3 03/15/19 12:00 98 Nasal Cannula 1.00 03/15/19 12:00 80 20 133/77 (95) 98 Nasal Cannula 1.00 03/15/19 11:00 80 16 113/56 (75) 98 Nasal Cannula 1.00 03/15/19 10:00 84 15 137/73 (94) 98 Nasal Cannula 1.00 03/15/19 09:00 76 17 151/83 (105) 98 Nasal Cannula 1.00 03/15/19 08:00 98 Nasal Cannula 1.00 03/15/19 08:00 59 13 123/101 (108) 97 Nasal Cannula 1.00 03/15/19 08:00 36.0 I & O 03/16/19 07:00 Intake Total 2120 ml Output Total 3250 ml Balance -1130 ml Height & Weight Height: 5'3.00" Weight: 150lbs. 0.3oz. 68.069450zo; 22.17 BMI Method:Stated General Appearance: No Apparent Distress, Chronically ill, Other (AOx1) HEENT: PERRL/EOMI Neck: Non Tender, Supple Respiratory: Chest Non Tender, Lungs Clear, Normal Breath Sounds, No Accessory Muscle Use, No Respiratory Distress Cardiovascular: Regular Rate, Rhythm, No Edema, No Gallop, No JVD, No Murmur Capillary Refill: Less Than 3 Seconds Gastrointestinal: non tender, soft, no organomegaly Extremity: Normal Capillary Refill, No Pedal Edema, Other (C3 quadriplegia) Neurologic/Psychiatric: Alert Skin: Normal Color, Warm/Dry Lymphatic: No Adenopathy Results Lab Laboratory Tests 03/14/19 17:03 03/15/19 03:20 03/16/19 03:42 03/16/19 04:50 Assessment/Plan Assessment/Plan Severe sepsis with shock probably from UTI (Klebsiella) -Zosyn and D/C vanco -IVF Anemia -Transfuse 1 unit -Check occult stool -Hold Lovenox Hypokalemia -replace Hx of COPD -SVNs -Monitor Neurogenic bladder DM Spinal cord injury C1-C4 Anxiety ALONDRA HUSSEIN DO Mar 16, 2019 07:38
--- NOTE | 2019-03-16 07:43 | Diagnostic Imaging Report ---
Indication: Dyspnea Upright portable AP view of the chest is obtained with comparison made to study of 03/15/2019. Overall heart size and pulmonary vascularity remain within normal limits. Surgical changes are seen in the right ribs. There is no pneumothorax. There is right pleural thickening. Right jugular central venous catheter reaches the junction of the superior vena cava and right atrium. Impression: Mild right pleural fluid versus pleural thickening related to previous rib fractures. Otherwise, no acute abnormality is identified. Dictated by: Dictated on workstation # [id number]
[2019-03-16] MEDS: RT-ALBUTEROL SULF 2.5 MG/3 ML PRE-MIX VIAL INH SCH ×3 (07:50→19:00)
--- NOTE | 2019-03-16 08:41 | NUR ---
Per blood bank, they do not have pts blood type for one unit of prbc and will be getting a unit from [place]. Pt vitals are stable at this time and blood bank with update me when blood is available.
[2019-03-16] MEDS: PANTOPRAZOLE 40 MG (PROTONIX) VIAL IV SCH ×2 (08:53→20:25)
[2019-03-16] MEDS ORDERED: PANTOPRAZOLE 40 MG (PROTONIX) VIAL IV SCH (09:00)
--- NOTE | 2019-03-16 12:30 | Progress Note - Hospitalist ---
SANGEETHA ROSALES [facility] 03/16/19 1230: Subjective HPI/CC On Admission Date Seen by Provider: Mar 16, 2019 Time Seen by Provider: 11:00 Chief complaint: Septic shock HPI: This is a 53yoWM known to me from a 30 day stay in inpatient rehab following quadriplegia following a fall, sent over to [facility], who presents after leaving [facility] the last three admissions last time for decubitus ulcer debridement, who presented to the ER found to have septic shock and systolic BP of 80, found to have his goodman catheter removed and uncertain who did that and found to have extremely distended bladder so goodman catheter was re-inserted, Pt was given aggressive IV fluids and empiric antibiotics of Zosyn and Vanc due to Pseudomonas bacteremia sepsis before and Pt was placed in the ICU. In addition to his previous decubitus ulcer, he has another decubitus ulcer. He was set to go to [facility] yesterday but instead is admitted for septic shock. Subjective/Events-last exam RR: 25, BP: 166/82 Patient was coherent and responsive. Patient stated that he slept well. Patient is NPO. Patient wants to know how long he will be staying. Patient has a catheter in. Review of Systems General: No Chills, No Night Sweats, No Fatigue, No Malaise, No Appetite, No Other HEENT: No Head Aches, No Visual Changes, No Eye Pain, No Ear Pain, No Dysphasia, No Sinus Congestion, No Post Nasal Drip, No Sore Throat, No Other Pulmonary: No Dyspnea, No Cough, No Pleuritic Chest Pain, No Other Cardiovascular: No: Chest Pain, Palpitations, Orthopnea, Paroxysmal Noc. Dyspnea, Edema, Lt Headedness, Other Gastrointestinal: No: Nausea, Vomiting, Abdominal Pain, Diarrhea, Constipation, Melena, Hematochezia, Other Genitourinary: No Dysuria, No Frequency, No Incontinence, No Hematuria, No Retention, No Other Musculoskeletal: No: other, neck pain, shoulder pain, arm pain, back pain, hand pain, leg pain, foot pain Neurological: No: Weakness, Numbness, Incoordination, Change in speech, Confusion, Seizures, Other Focused Exam Lactate Level 03/14/19 17:03: Lactic Acid Level 1.18 Objective Exam Vital Signs Vital Signs Date Time Temp Pulse Resp B/P (MAP) Pulse Ox O2 Delivery O2 Flow Rate FiO2 03/16/19 12:00 37.1 03/16/19 11:28 95 Room Air 03/16/19 11:00 81 29 172/87 (115) 03/16/19 00:00 1.00 Capillary Refill : Less Than 3 Seconds General Appearance: WD/WN, Chronically ill HEENT: PERRL/EOMI, Moist Mucous Membranes Respiratory: Chest Non Tender, Lungs Clear, Normal Breath Sounds, No Accessory Muscle Use, No Respiratory Distress Cardiovascular: Regular Rate, Rhythm, No Edema, No Gallop, No JVD, No Murmur, Normal Peripheral Pulses Gastrointestinal: Normal Bowel Sounds, Soft Neurologic/Psychiatric: Alert Skin: Normal Color, Warm/Dry Lymphatic: No Adenopathy Results/Procedures Lab Laboratory Tests 03/16/19 03:42 03/16/19 04:50 Patient resulted labs reviewed. Assessment/Plan Assessment and Plan Assess & Plan/Chief Complaint Assessment: 1. UTI/urosepsis 2. Obtunded 3. Chronic Pain 4. History of sacral and other pressure ulcers 5. Hypotensive Plan: 1. Treat the underlying infection 2. Fluids to treat hypotension 3. Pain management 4. Observe and manage ulcer. 5. Reposition frequently. Clinical Quality Measures DVT/VTE Risk/Contraindication: Risk Factor Score Per Nursin RFS Level Per Nursing on Admit: 4+=Very High MALIKBANDARMic [facility] 03/16/19 2158: Subjective Subjective/Events-last exam Pt has a dismal prognosis. Pt states he really doesn't care anymore. Pain is everywhere he states. Overall extremely difficult and complex case. Dr. García will see him for a decubitus ulcer that is a new lesion ulcer noted compare to the one he was originally treating. Assessment/Plan Assessment and Plan Assess & Plan/Chief Complaint Poor prognosis Diagnosis/Problems Diagnosis/Problems (1) Septic shock Status: Acute (2) Quadriplegia Status: Acute (3) Uncontrolled diabetes mellitus Status: Chronic (4) Chronic pain Status: Chronic Permanent Comment: Low back pain Last Edited By: Georgia Zambrano on Sep 03, 2017 12:27 (5) Type 2 diabetes mellitus with hyperglycemia Status: Chronic (6) COPD (chronic obstructive pulmonary disease) Status: Chronic Supervisory-Addendum Brief Verification & Attestation Participated in pt care: history, MDM, physical Personally performed: exam, history, MDM, supervision of care Care discussed with: Medical Student Procedures: n/a Results interpretation: Verified all documentation Verification and Attestation of Medical Student E/M Service A medical student performed and documented this service in my presence. I reviewed and verified all information documented by the medical student and made modifications to such information, when appropriate. I personally performed the physical exam and medical decision making. Marguerite Gan, Mar 16, 2019,21:57 SANGEETHA ROSALES [facility] Mar 16, 2019 12:30 MARGUERITE GAN DO Mar 16, 2019 21:58
[2019-03-16] MEDS ORDERED: NS IV 500 ML 500 ML ONE (13:14)
--- NOTE | 2019-03-16 15:41 | Consultation - Surgery ---
JUICE SAMSON,MED STUDENT 03/16/19 1541: History of Present Illness History of Present Illness Patient Consulted On(harinder/time) 03/16/19 15:35 Date Seen by Provider: Mar 16, 2019 Time Seen by Provider: 15:01 History of Present Illness Surgery consulted regarding sacral decubitus ulcer. HPI per ED: " Here by EMS with report of being unresponsive. Patient was to go to [facility] and rehabilitation today. He has been seen multiple times in the last few days and has left AGAINST MEDICAL ADVICE. Recent hospital stay for sepsis and he's had a few events over the last couple of months of sepsis. Did have a fall in December and that resulted in C3 quadriplegia. He has been at home since. Subsequently has developed sacral ulcer that's been debrided and now ulcer in the region of the coccyx noted. Is not answering questions and only moans regarding pain. He is protecting his airway. EMS reports initial O2 sat of 93% that went to 98% on 2 L via nasal cannula. IV is established. Not reported to be febrile. No report of vomiting. Has had recent visits for shortness of air but does not appear short of air now. Otherwise history limited " Pt states he was feeling feverish and confused so called EMS for transport to [facility]. Pt appeared confused and sedated during visit and was not able to answer questions. While examining his sacral decubitus ulcer and inquiring about sensation, Pt became agitated about the wound dressing and pain in his sacral region and requested I no longer visit with him. Not accompanied by family at [facility]. Allergies and Home Medications Allergies Coded Allergies: No Known Drug Allergies (Unverified , 02/15/19) Home Medications Alprazolam 0.25 Mg Tablet, 0.25 MG PO QID, (Reported) Baclofen 10 Mg Tablet, 5 MG PO TID, (Reported) Citalopram Hydrobromide 10 Mg Tablet, 10 MG PO DAILY, (Reported) Enoxaparin Sodium 40 Mg/0.4 Ml Syringe, 40 MG SC 1400, (Reported) FILLED #12 02-07-19 AND THEN THE REST ON 02-20-19 FOR #18 SYRINGES Famotidine 20 Mg Tablet, 20 MG PO BID, (Reported) Hydrocodone/Acetaminophen 1 Each Tablet, 1 TAB PO Q6H PRN for PAIN-MODERATE, (Reported) Insulin Detemir 100 Unit/1 Ml Insuln.pen, 15 UNIT SQ DAILY, (Reported) LAST FILLED 02-06-19 Insulin Detemir 100 Unit/1 Ml Insuln.pen, 20 UNIT SQ HS, (Reported) LAST FILLED 02-06-19 Ipratropium/Albuterol Sulfate 3 Ml Ampul.neb, 3 ML NEB BID PRN for SHORTNESS OF BREATH, (Reported) Loratadine 10 Mg Tablet, 10 MG PO DAILY, (Reported) LAST FILLED #30 02-06-19 Melatonin 5 Mg Tablet, 10 MG PO HS, (Reported) Miconazole Nitrate 90 Gm Powder, TP BID, (Reported) LAST FILLED 01-29-19 Midodrine HCl 10 Mg Tablet, 10 MG PO TID, (Reported) LAST FILLED #90 02-06-19 Montelukast Sodium 10 Mg Tablet, 10 MG PO DAILY, (Reported) LAST FILLED #30 02-06-19 Quetiapine Fumarate 50 Mg Tablet, 50 MG PO HS, (Reported) Sennosides 8.6 Mg Tablet, 8.6 MG PO BID PRN for CONSTIPATION-5TH LINE, (Reported) Sodium Hypochlorite 473 Ml Solution, 0 ML TOP DAILY Prescribed by: MARGUERITE GAN on 02/05/192036 Patient Home Medication List Home Medication List Reviewed: Yes Past Jlhqmbm-Oabriq-Wesykb Hx Patient Social History Alcohol Use: Denies Use Number of Drinks Today: Recreational Drug Use: Yes (10 YEARS AGO) Drug of Choice: THC, + IV METHAMPHETAMINES, PCP, OPIATES, BENZO'S Smoking Status: Unknown if Ever Smoked Type Used: Cigarettes 2nd Hand Smoke Exposure: Yes Recent Foreign Travel: No Contact w/Someone Who Travel: No Recent Infectious Disease Expo: No Recent Hopitalizations: Yes (SPINAL CORD INJURY AND AT [place] 7-19 RECENT HOSPITALIZATION FOR SEPSIS) Immunizations Up To Date Tetanus Booster (TDap): Unknown PED Vaccines UTD: Yes Date of Pneumonia Vaccine: Sep 04, 2015 Date of Influenza Vaccine: Apr 05, 2017 Seasonal Allergies Seasonal Allergies: Yes (TALL GRASS, ANIMALS) Surgeries History of Surgeries: Yes Surgeries: Abdominal, Bladder Surgery, Orthopedic, Tracheostomy Respiratory History of Respiratory Disorde: Yes Respiratory Disorders: COPD Cardiovascular History of Cardiac Disorders: No Neurological History of Neurological Disord: Yes Neurological Disorders: Neuropathy, Spinal Cord Injury, Traumatic Brain Injury Reproductive System Hx Reproductive Disorders: No Sexually Transmitted Disease: No Genitourinary History of Genitourinary Disor: Yes Genitourinary Disorders: Bladder Infection, UTI-Chronic Gastrointestinal History of Gastrointestinal Di: Yes Gastrointestinal Disorders: Gastroesophageal Reflux Musculoskeletal History of Musculoskeletal Dis: Yes Musculoskeletal Disorders: Chronic Back Pain, Fractures Endocrine History of Endocrine Disorders: Yes (NON-COMPLIANCE) Endocrine Disorders: Diabetes, Insulin dep HEENT History of HEENT Disorders: Yes HEENT Disorders: Cataract Cancer History of Cancer: No Psychosocial History of Psychiatric Problem: Yes (POLYSUBSTANCE ABUSE) Behavioral Health Disorders: Sleep Difficulties, Anxiety Integumentary History of Skin or Integumenta: Yes (SACRAL DECUBITUS ULCER) Blood Transfusions History of Blood Disorders: No Adverse Reaction to a Blood Tr: No Family Medical History Significant Family History: AAA (mother ), Cancer (Testicualr, father ), CAD Over 55 Years Old (Father), Diabetes (Father), Hypertension Family Medial History: Abdominal aortic aneurysm 03 MOTHER (DOESN'T KNOW MOM'S MEDICAL HISTORY) Cancer 03 FATHER (TESTICULAR) Family history: Diabetes mellitus 03 FATHER Family history: Hypertension 03 FATHER No Family History of: Family history: Alzheimer's disease Family history: Arthritis Family history: Breast disease Family history: Cardiovascular disease Family history: Gastrointestinal disease Family history: Thyroid disorder Hereditary disease History of - respiratory disease Myocardial infarction Parkinson's disease Seizure disorder Stroke Review of Systems-General ROS-Unable to Obtain: Pt agitated and would not answer questions Constitutional: see HPI, fever, weakness Musculoskeletal: back pain, joint pain (complaining of shoulder pain ) Psychiatric/Neurological: Anxiety, Other (confusion) Physical Exam-General Problems Physical Exam Vital Signs Vital Signs - First Documented 03/14/19 17:01 Temp 36.2 Pulse 74 Resp 18 B/P (MAP) 103/65 (78) Pulse Ox 99 O2 Delivery Nasal Cannula O2 Flow Rate 2.00 Capillary Refill : Less Than 3 Seconds General Appearance: mild distress, other (sedated, agitated ) HEENT: other (drooping eyelids ) Neck: tender lateral, other (PICC line in place R side ) Respiratory: no respiratory distress, no accessory muscle use Cardiovascular: normal peripheral pulses, regular rate, rhythm Peripheral Pulses: 2+ Dorsalis Pedis (R), 2+ Left Dors-Pedis (L), 2+ Radial Pulses (R), 2+ Radial Pulses (L) Gastrointestinal: distended (minimal ) Rectal: deferred Extremities: no pedal edema, no calf tenderness, other (SCDs in place ) Neurologic/Psychiatric: motor weakness (partial quadraplegia ), other (agitated ) Skin: cool, pallor Data Review Labs Laboratory Tests 03/16/19 03:42: White Blood Count 15.0H, Red Blood Count 1.90L, Hemoglobin 5.3#*L, Hematocrit 17*L, Mean Corpuscular Volume 87, Mean Corpuscular Hemoglobin 28, Mean Corpuscular Hemoglobin Concent 32, Red Cell Distribution Width 15.8H, Platelet Count 398, Mean Platelet Volume 8.2, Neutrophils (%) (Auto) 86H, Lymphocytes (%) (Auto) 10L, Monocytes (%) (Auto) 5, Eosinophils (%) (Auto) 0, Basophils (%) (Auto) 0, Neutrophils # (Auto) 12.8H, Lymphocytes # (Auto) 1.5, Monocytes # (Auto) 0.7, Eosinophils # (Auto) 0.0, Basophils # (Auto) 0.0, Sodium Level 143, Potassium Level 3.0L, Chloride Level 113H, Carbon Dioxide Level 20L, Anion Gap 10, Blood Urea Nitrogen 14, Creatinine 0.74, Estimat Glomerular Filtration Rate > 60, BUN/Creatinine Ratio 19, Glucose Level 167H, Calcium Level 8.4L, Phosphorus Level 3.1, Magnesium Level 1.7 03/16/19 04:50: Hemoglobin 6.5#*L, Hematocrit 20*L 03/16/19 12:06: Glucometer 211H Microbiology 03/14/19 Blood Culture - Preliminary, Resulted No growth 03/14/19 MRSA Screen - Final, Complete MRSA not isolated 03/14/19 Urine Culture - Final, Complete Klebsiella pneumoniae Assessment/Plan Assessment/Plan Assessment/Plan Sacral decubitus pressure ulcer, Stage 4 Sepsis Anemia Continue IVF, pain control and antibiotics. Change wet-to-dry dressings to Dakins solution and continue santyl sacral and b/l heel dressings. Clinical Quality Measures DVT/VTE Risk/Contraindication: Risk Factor Score Per Nursin RFS Level Per Nursing on Admit: 4+=Very High EDMUND GARCÍA DO 03/16/19 1810: History of Present Illness History of Present Illness Time Seen by Provider: 15:31 History of Present Illness Pt appeared confused/sedated, answers most questions. Allergies and Home Medications Allergies Coded Allergies: No Known Drug Allergies (Unverified , 02/15/19) Home Medications Alprazolam 0.25 Mg Tablet, 0.25 MG PO QID, (Reported) Baclofen 10 Mg Tablet, 5 MG PO TID, (Reported) Citalopram Hydrobromide 10 Mg Tablet, 10 MG PO DAILY, (Reported) Enoxaparin Sodium 40 Mg/0.4 Ml Syringe, 40 MG SC 1400, (Reported) FILLED #12 02-07-19 AND THEN THE REST ON 02-20-19 FOR #18 SYRINGES Famotidine 20 Mg Tablet, 20 MG PO BID, (Reported) Hydrocodone/Acetaminophen 1 Each Tablet, 1 TAB PO Q6H PRN for PAIN-MODERATE, (Reported) Insulin Detemir 100 Unit/1 Ml Insuln.pen, 15 UNIT SQ DAILY, (Reported) LAST FILLED 02-06-19 Insulin Detemir 100 Unit/1 Ml Insuln.pen, 20 UNIT SQ HS, (Reported) LAST FILLED 02-06-19 Ipratropium/Albuterol Sulfate 3 Ml Ampul.neb, 3 ML NEB BID PRN for SHORTNESS OF BREATH, (Reported) Loratadine 10 Mg Tablet, 10 MG PO DAILY, (Reported) LAST FILLED #30 02-06-19 Melatonin 5 Mg Tablet, 10 MG PO HS, (Reported) Miconazole Nitrate 90 Gm Powder, TP BID, (Reported) LAST FILLED 01-29-19 Midodrine HCl 10 Mg Tablet, 10 MG PO TID, (Reported) LAST FILLED #90 02-06-19 Montelukast Sodium 10 Mg Tablet, 10 MG PO DAILY, (Reported) LAST FILLED #30 02-06-19 Quetiapine Fumarate 50 Mg Tablet, 50 MG PO HS, (Reported) Sennosides 8.6 Mg Tablet, 8.6 MG PO BID PRN for CONSTIPATION-5TH LINE, (Reported) Sodium Hypochlorite 473 Ml Solution, 0 ML TOP DAILY Prescribed by: MARGUERITE GAN on 02/05/192036 Past Fehicoo-Jrebuc-Lhgvtz Hx Family Medical History Family Medial History: Abdominal aortic aneurysm 03 MOTHER (DOESN'T KNOW MOM'S MEDICAL HISTORY) Cancer 03 FATHER (TESTICULAR) Family history: Diabetes mellitus 03 FATHER Family history: Hypertension 03 FATHER No Family History of: Family history: Alzheimer's disease Family history: Arthritis Family history: Breast disease Family history: Cardiovascular disease Family history: Gastrointestinal disease Family history: Thyroid disorder Hereditary disease History of - respiratory disease Myocardial infarction Parkinson's disease Seizure disorder Stroke Assessment/Plan Assessment/Plan Assessment/Plan Dakins dressing changes BID. May need surgical debridement. Supervisory-Addendum Brief Verification & Attestation Participated in pt care: history, MDM, physical Personally performed: exam, history, MDM Care discussed with: Medical Student Procedures: n/a Verification and Attestation of Medical Student E/M Service A medical student performed and documented this service in my presence. I reviewed and verified all information documented by the medical student and made modifications to such information, when appropriate. I personally performed the physical exam and medical decision making. Edmund García, Mar 16, 2019,18:09 JUIEC SAMSON,MED STUDENT Mar 16, 2019 15:41 EDMUND GARCÍA DO Mar 16, 2019 18:10
[2019-03-16 17:58] LABS: HEMOGLOBIN 8.4 G/DL (13.3-17.7)
[2019-03-16] MEDS: DAKIN'S FULL STRENGTH (0.5%) 480 ML BTL TOP SCH (20:43)
[2019-03-17] VITALS (9 sets, daily range): BP systolic 131–163; BP diastolic 75–99
[2019-03-17] MEDS: PIPERACILLIN/TAZO 4.5 GM/NS 100 ML IV SCH ×6 (00:07→16:40)
[2019-03-17] MEDS: LACTATED RINGERS 1,000 ML IV SCH ×2 (00:54→11:35)
[2019-03-17 03:08] LABS: BASOPHILS % (AUTO) 0 % (0-10); EOSINOPHILS % (AUTO) 0 % (0-10); HEMATOCRIT 26 % (40-54); HEMOGLOBIN 8.9 G/DL (13.3-17.7); LYMPHOCYTES # (AUTO) 1.9 X 10^3 (1.0-4.0); LYMPHOCYTES % (AUTO) 16 % (12-44); MEAN CORPUSCULAR HEMOGLOBIN 29 PG (25-34); MEAN CORPUSCULAR HGB CONC 34 G/DL (32-36); MEAN CORPUSCULAR VOLUME 85 FL (80-99); MEAN PLATELET VOLUME 7.6 FL (7.4-10.4); MONOCYTES # (AUTO) 0.9 X 10^3 (0.0-1.0); MONOCYTES % (AUTO) 8 % (0-12); NEUTROPHILS # (AUTO) 9.1 X 10^3 (1.8-7.8); NEUTROPHILS % (AUTO) 76 % (42-75); PLATELET COUNT 414 10^3/uL (130-400); RED CELL DISTRIBUTION WIDTH 14.9 % (10.0-14.5); WHITE BLOOD COUNT 11.9 10^3/uL (4.3-11.0)
[2019-03-17 03:27] LABS: BUN/CREATININE RATIO 17; CALCIUM 8.6 MG/DL (8.5-10.1); CARBON DIOXIDE 24 MMOL/L (21-32); CHLORIDE 101 MMOL/L (98-107); GFR ESTIMATED > 60; GLUCOSE 179 MG/DL (70-105); MAGNESIUM 1.5 MG/DL (1.6-2.4); PHOSPHORUS 2.3 MG/DL (2.3-4.7); SODIUM 138 MMOL/L (135-145)
[2019-03-17 03:32] LABS: POTASSIUM 2.5 MMOL/L (3.6-5.0)
[2019-03-17] MEDS: POTASSIUM CL 10MEQ/50ML IVPB 50 ML IV SCH ×11 (03:48→18:31)
[2019-03-17] MEDS: MAGNESIUM 1 GM/100 ML IVPB 100 ML IV SCH ×3 (03:49→04:40)
[2019-03-17] MEDS: KCL 20 MEQ TAB (K-DUR) PO SCH (04:34)
--- NOTE | 2019-03-17 05:14 | Pulmonary Progress Note ---
Subjective Time Seen by a Provider: 07:10 Subjective/Events-last exam No complications noted. Sepsis Event Evaluation Height, Weight, BMI Height: 5'3.00" Weight: 150lbs. 0.3oz. 68.630840mx; 22.17 BMI Method:Stated Focused Exam Lactate Level 03/14/19 17:03: Lactic Acid Level 1.18 Exam Exam Vital Signs Date Time Temp Pulse Resp B/P (MAP) Pulse Ox O2 Delivery O2 Flow Rate FiO2 03/17/19 04:00 57 18 158/82 (107) 97 Room Air 03/17/19 04:00 36.3 03/17/19 04:00 96 Room Air 03/17/19 03:00 56 22 96 Room Air 03/17/19 02:00 53 17 162/99 (120) 96 Room Air 03/17/19 01:00 61 23 163/84 (110) 96 Room Air 03/17/19 01:00 62 03/17/19 00:38 96 Room Air 03/17/19 00:00 57 20 161/88 (112) 96 Room Air 03/16/19 23:58 36.5 03/16/19 23:00 56 20 163/114 (130) 97 Room Air 03/16/19 22:00 55 18 97 Room Air 03/16/19 21:00 60 20 96 Room Air 03/16/19 20:00 96 Room Air 03/16/19 20:00 57 19 158/105 (122) 96 Room Air 03/16/19 20:00 36.6 03/16/19 19:01 96 Room Air 03/16/19 19:00 36.5 03/16/19 19:00 67 03/16/19 19:00 66 22 175/106 (129) 96 Room Air 03/16/19 18:00 68 22 195/98 (130) 97 Room Air 03/16/19 17:00 64 29 169/89 (115) 96 Room Air 03/16/19 16:15 96 Room Air 03/16/19 16:00 58 19 143/97 (112) 96 Room Air 03/16/19 16:00 36.3 03/16/19 15:38 96 Room Air 03/16/19 15:30 36.6 66 24 157/67 95 Room Air 03/16/19 15:00 70 22 96 Room Air 03/16/19 14:00 70 18 173/89 (117) 97 Room Air 03/16/19 13:49 37.0 71 27 168/84 95 Room Air 03/16/19 13:30 36.8 69 23 166/86 95 Room Air 03/16/19 13:00 78 23 166/86 (112) 95 Room Air 03/16/19 12:57 75 03/16/19 12:30 96 Room Air 03/16/19 12:00 37.1 03/16/19 12:00 80 25 166/95 (118) 95 Room Air 03/16/19 11:28 95 Room Air 03/16/19 11:00 81 29 172/87 (115) 94 Room Air 03/16/19 10:00 78 25 166/82 (110) 94 Room Air 03/16/19 09:00 74 23 174/104 (127) 94 Room Air 03/16/19 08:00 72 27 171/99 (123) 94 Room Air 03/16/19 08:00 97 Room Air 03/16/19 07:50 95 Room Air 03/16/19 07:00 75 03/16/19 07:00 76 21 156/91 (112) 95 Room Air 03/16/19 06:00 83 19 171/93 (119) 97 Room Air I & O 03/17/19 07:00 Intake Total 1420 ml Output Total 6375 ml Balance -4955 ml Height & Weight Height: 5'3.00" Weight: 150lbs. 0.3oz. 68.578591zr; 22.17 BMI Method:Stated General Appearance: WD/WN, Chronically ill HEENT: PERRL/EOMI, Moist Mucous Membranes Neck: Non Tender, Supple Respiratory: Chest Non Tender, Lungs Clear, Normal Breath Sounds, No Accessory Muscle Use, No Respiratory Distress Cardiovascular: Regular Rate, Rhythm, No Edema, No Gallop, No JVD, No Murmur, Normal Peripheral Pulses Capillary Refill: Less Than 3 Seconds Peripheral Pulses: 2+ Dorsalis Pedis (R), 2+ Left Dors-Pedis (L), 2+ Radial Pulses (R), 2+ Radial Pulses (L) Gastrointestinal: distended (minimal ) Extremity: Normal Capillary Refill, No Pedal Edema, Other (C3 quadriplegia) Neurologic/Psychiatric: Alert Skin: Normal Color, Warm/Dry Lymphatic: No Adenopathy Results Lab Laboratory Tests 03/16/19 03:42 03/16/19 04:50 03/16/19 17:50 03/17/19 03:00 Assessment/Plan Assessment/Plan Severe sepsis with shock probably from UTI (Klebsiella) -Zosyn and D/C vanco -IVF Anemia -Check occult stool -Hold Lovenox Hypokalemia -replace Hx of COPD -SVNs -Monitor Neurogenic bladder DM Spinal cord injury C1-C4 Anxiety ALONDRA HUSSEIN DO Mar 17, 2019 05:14
[2019-03-17] MEDS: inSUlin ASPART (NovoLOG) 1 UNIT/0.01 ML (CHARGE PER UNIT) SC SCH ×3 (06:35→17:12)
--- NOTE | 2019-03-17 08:44 | NUR ---
Report received and assessment completed. Pt answers orientation questions correctly but continues to hallucinate. He is agitated about an envelope with his payroll check in it. Pt also asks me to "chop off" his left hand because the pulse ox is on his finger. I offered to place pulse ox on forehead and he refused. Pulse ox was placed on right hand.
[2019-03-17] MEDS ORDERED: DAKIN'S FULL STRENGTH (0.5%) 480 ML BTL TOP SCH (09:00)
--- NOTE | 2019-03-17 09:05 | Diagnostic Imaging Report ---
Clinical indication: Patient with dyspnea. Exam: Portable chest x-ray upright view. Comparisons: Portable chest x-ray dated 03/16/2019. Findings: Right IJ central line seen in stable position. Low lung volumes are seen bilaterally. Mediastinal structures are rotated toward the right due to patient positioning. There is suspected mild bibasilar atelectasis. There is no interval lung infiltrate. There is no definite pleural effusion or pneumothorax. Pulmonary vasculature is within normal limits. Cardiac silhouette is upper limits of normal for portable projection. There are reconstruction plates and screws involving multiple posterior right ribs are again seen. Impression: 1: Mild bibasilar atelectasis. There is no interval lung infiltrate. 2: The remainder of this exam shows no significant interval change compared to the prior study of comparison. Dictated by: Dictated on workstation # [id number]
[2019-03-17] MEDS: PANTOPRAZOLE 40 MG (PROTONIX) VIAL IV SCH ×2 (09:07→21:05)
[2019-03-17] MEDS: DAKIN'S FULL STRENGTH (0.5%) 480 ML BTL TOP SCH ×2 (09:08→21:05)
--- NOTE | 2019-03-17 09:29 | Progress Note - Surgery ---
ROMAIN EDWARDS,MED STUDENT 03/17/19 0929: Subjective Date Seen by a Provider: Mar 17, 2019 Time Seen by a Provider: 08:40 Subjective/Events-last exam Mr. Fink states he is continues to feel feverish, confused, and fatigued. He is somnolent but more alert than on exam yesterday. He is still unable to answer some questions. He states he was brought to the ED by EMS due to fever. He voiced some agitation about his sacral decubitus ulcer and not being able to control is hand placement. 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 Review of Systems General: No Chills; Fatigue, Other (fever) Pulmonary: No Dyspnea, No Cough Cardiovascular: No: Chest Pain Gastrointestinal: No: Nausea, Vomiting Musculoskeletal: back pain Neurological: Weakness, Confusion Focused Exam Lactate Level 03/14/19 17:03: Lactic Acid Level 1.18 Objective Exam Vital Signs Date Time Temp Pulse Resp B/P (MAP) Pulse Ox O2 Delivery O2 Flow Rate FiO2 03/17/19 07:41 96 Room Air 03/17/19 07:30 37.0 60 15 162/87 (112) 96 Room Air 03/17/19 05:00 58 20 96 Room Air 03/17/19 04:00 57 18 158/82 (107) 97 Room Air 03/17/19 04:00 36.3 03/17/19 04:00 96 Room Air 03/17/19 03:00 56 22 96 Room Air 03/17/19 02:00 53 17 162/99 (120) 96 Room Air 03/17/19 01:00 61 23 163/84 (110) 96 Room Air 03/17/19 01:00 62 03/17/19 00:38 96 Room Air 03/17/19 00:00 57 20 161/88 (112) 96 Room Air 03/16/19 23:58 36.5 03/16/19 23:00 56 20 163/114 (130) 97 Room Air 03/16/19 22:00 55 18 97 Room Air 03/16/19 21:00 60 20 96 Room Air 03/16/19 20:00 96 Room Air 03/16/19 20:00 57 19 158/105 (122) 96 Room Air 03/16/19 20:00 36.6 03/16/19 19:01 96 Room Air 03/16/19 19:00 36.5 03/16/19 19:00 67 03/16/19 19:00 66 22 175/106 (129) 96 Room Air 03/16/19 18:00 68 22 195/98 (130) 97 Room Air 03/16/19 17:00 64 29 169/89 (115) 96 Room Air 03/16/19 16:15 96 Room Air 03/16/19 16:00 58 19 143/97 (112) 96 Room Air 03/16/19 16:00 36.3 03/16/19 15:38 96 Room Air 03/16/19 15:30 36.6 66 24 157/67 95 Room Air 03/16/19 15:00 70 22 96 Room Air 03/16/19 14:00 70 18 173/89 (117) 97 Room Air 03/16/19 13:49 37.0 71 27 168/84 95 Room Air 03/16/19 13:30 36.8 69 23 166/86 95 Room Air 03/16/19 13:00 78 23 166/86 (112) 95 Room Air 03/16/19 12:57 75 03/16/19 12:30 96 Room Air 03/16/19 12:00 37.1 03/16/19 12:00 80 25 166/95 (118) 95 Room Air 03/16/19 11:28 95 Room Air 03/16/19 11:00 81 29 172/87 (115) 94 Room Air 03/16/19 10:00 78 25 166/82 (110) 94 Room Air I & O 03/17/19 06:59 Intake Total 1920 ml Output Total 7975 ml Balance -6055 ml Capillary Refill : Less Than 3 Seconds General Appearance: WD/WN, Anxious, Chronically ill HEENT: PERRL/EOMI, Moist Mucous Membranes Neck: Other (right PICC line) Respiratory: Lungs Clear, Normal Breath Sounds, No Accessory Muscle Use, No Respiratory Distress Cardiovascular: Regular Rate, Rhythm, No Murmur Peripheral Pulses: 2+ Radial Pulses (R), 2+ Radial Pulses (L) Gastrointestinal: normal bowel sounds, non tender, distended (minimally) Extremity: No Pedal Edema, Other (C3 quadriplegia) Neurologic/Psychiatric: Alert, Other (oriented to person and place) Skin: Other (sacral decubitus ulcer, bilateral heel ulcers) Results Lab Laboratory Tests 03/16/19 12:06: Glucometer 211H 03/16/19 17:30: Glucometer 181H 03/16/19 17:50: Hemoglobin 8.4#L, Hematocrit 26L 03/16/19 20:45: Stool Occult Blood Immunoassay POSITIVEH 03/16/19 23:17: Glucometer 147H 03/17/19 03:00: White Blood Count 11.9H, Red Blood Count 3.10L, Hemoglobin 8.9L, Hematocrit 26L, Mean Corpuscular Volume 85, Mean Corpuscular Hemoglobin 29, Mean Corpuscular Hemoglobin Concent 34, Red Cell Distribution Width 14.9H, Platelet Count 414H, Mean Platelet Volume 7.6, Neutrophils (%) (Auto) 76H, Lymphocytes (%) (Auto) 16, Monocytes (%) (Auto) 8, Eosinophils (%) (Auto) 0, Basophils (%) (Auto) 0, Neutrophils # (Auto) 9.1H, Lymphocytes # (Auto) 1.9, Monocytes # (Auto) 0.9, Eosinophils # (Auto) 0.0, Basophils # (Auto) 0.0, Sodium Level 138, Potassium Level 2.5*L, Chloride Level 101, Carbon Dioxide Level 24, Anion Gap 13, Blood Urea Nitrogen 12, Creatinine 0.70, Estimat Glomerular Filtration Rate > 60, BUN/Creatinine Ratio 17, Glucose Level 179H, Calcium Level 8.6, Phosphorus Level 2.3, Magnesium Level 1.5L Microbiology 03/14/19 Blood Culture - Preliminary, Resulted No growth 03/14/19 MRSA Screen - Final, Complete MRSA not isolated 03/14/19 Urine Culture - Final, Complete Klebsiella pneumoniae Assessment/Plan Assessment/Plan Assessment/Plan Continue IVF, pain control, and Abx. Dakin dressing on sacral ulcer, change BID. Continue bilateral heel dressings Clinical Quality Measures DVT/VTE Risk/Contraindication: Risk Factor Score Per Nursin RFS Level Per Nursing on Admit: 4+=Very High MACIEL GARCÍA DO 03/17/19 1222: Subjective Time Seen by a Provider: 11:45 Subjective/Events-last exam Pt states he feels better, no complaints Assessment/Plan Assessment/Plan Assessment/Plan Sacral Decub Stage IV UTI with sepsis Dakins solution, IV ABX, IV fluids, pain control as needed. I will monitor to determine if/when he will need surgical debridement. Supervisory-Addendum Brief Verification & Attestation Participated in pt care: history, MDM, physical Personally performed: exam, history, MDM Care discussed with: Medical Student Procedures: n/a Verification and Attestation of Medical Student E/M Service A medical student performed and documented this service in my presence. I reviewed and verified all information documented by the medical student and made modifications to such information, when appropriate. I personally performed the physical exam and medical decision making. Maciel García, Mar 17, 2019,12:22 ROMAIN EDWARDS,MED STUDENT Mar 17, 2019 09:29 MACIEL GARCÍA DO Mar 17, 2019 12:22
--- NOTE | 2019-03-17 13:20 | Progress Note - Hospitalist ---
Subjective HPI/CC On Admission Date Seen by Provider: Mar 17, 2019 Time Seen by Provider: 12:00 Chief complaint: Septic shock HPI: This is a 53yoWM known to me from a 30 day stay in inpatient rehab following quadriplegia following a fall, sent over to [facility], who presents after leaving [facility] the last three admissions last time for decubitus ulcer debridement, who presented to the ER found to have septic shock and systolic BP of 80, found to have his goodman catheter removed and uncertain who did that and found to have extremely distended bladder so goodman catheter was re-inserted, Pt was given aggressive IV fluids and empiric antibiotics of Zosyn and Vanc due to Pseudomonas bacteremia sepsis before and Pt was placed in the ICU. In addition to his previous decubitus ulcer, he has another decubitus ulcer. He was set to g o to [facility] yesterday but instead is admitted for septic shock. Subjective/Events-last exam Patient doing much better is demanding to speak to someone so she will likely be on hospital rounds tomorrow Patient denies any significant pain Will advance his diet Bowels moved today Very poor prognosis especially since he keeps on leaving against medical advice. Review of Systems General: Fatigue Focused Exam Lactate Level 03/14/19 17:03: Lactic Acid Level 1.18 Objective Exam Vital Signs Vital Signs Date Time Temp Pulse Resp B/P (MAP) Pulse Ox O2 Delivery O2 Flow Rate FiO2 03/17/19 12:00 36.5 03/17/19 12:00 61 15 159/97 (117) 99 Room Air 03/16/19 00:00 1.00 Capillary Refill : Less Than 3 Seconds General Appearance: No Apparent Distress, WD/WN, Chronically ill, Thin Respiratory: Lungs Clear Cardiovascular: Regular Rate, Rhythm Neurologic/Psychiatric: Alert, Oriented x3, Motor Weakness (quadriplegia) Results/Procedures Lab Laboratory Tests 03/16/19 17:50 03/17/19 03:00 03/17/19 11:50 Patient resulted labs reviewed. Assessment/Plan Assessment and Plan Assess & Plan/Chief Complaint Assessment: Septic shock UTI Multiple decubitus ulcers Quadriplegia Frequent leaving AGAINST MEDICAL ADVICE Plan: Monitor closely Transfer to fourth floor Home meds Critical Care Critically Ill Patient (obtunded and possibly septic.) Diagnosis/Problems Diagnosis/Problems (1) Septic shock Status: Acute (2) Quadriplegia Status: Acute (3) Uncontrolled diabetes mellitus Status: Chronic (4) Chronic pain Status: Chronic Permanent Comment: Low back pain Last Edited By: Georgia Zambrano on Sep 03, 2017 12:27 (5) Type 2 diabetes mellitus with hyperglycemia Status: Chronic (6) COPD (chronic obstructive pulmonary disease) Status: Chronic Clinical Quality Measures DVT/VTE Risk/Contraindication: Risk Factor Score Per Nursin RFS Level Per Nursing on Admit: 4+=Very High MARGUERITE GAN DO Mar 17, 2019 13:20
[2019-03-17] MEDS ORDERED: RT-ALBUTEROL/IPRATROPIUM 3 ML (DUONEB) VIAL IH PRN (14:15)
[2019-03-17] MEDS ORDERED: SENNOSIDES 8.6 MG (SENOKOT) TAB PO PRN (14:45)
[2019-03-17] MEDS: ENOXAPARIN 40 MG/0.4 ML (LOVENOX) SYR SC SCH (14:54)
--- NOTE | 2019-03-17 14:55 | NUR ---
Did not administer Lovenox secondary to positive occult blood.
[2019-03-17] MEDS: ALPRAZolam 0.25 MG (XANAX) TAB PO SCH ×2 (16:42→20:59)
--- NOTE | 2019-03-17 16:50 | NUR ---
Spoke with patients Aunt, Екатерина Yung with patients verbal permission. Updated on patient condition. Approx 10 minutes later, linen room houseperson called stating that Екатерина Yung had called and talked to her about [employer] and psych consultation. I then called Екатеринаtere Perezer back at [phone] and advised her that I had put in a [employer]ician consult and would pass on the wish for psych consultation. Pt has not made any verbal threats towards self harm. Екатерина Dilshad stated that she had no further questions.
--- NOTE | 2019-03-17 17:30 | NUR ---
Pt transported via hospital bed to room 407. Report given to Mayra BONILLA. Pt's took all of patients belongings when she was visiting today.
[2019-03-17] MEDS: QUEtiapine 25 MG (SEROquel) TAB IMMEDIATE RELEASE PO SCH (20:58)
[2019-03-17] MEDS: BACLOFEN 10 MG (LIORESAL) TAB PO SCH (20:59)
[2019-03-17] MEDS: FAMOTIDINE 20 MG (PEPCID) TABLET PO SCH (21:00)
[2019-03-17] MEDS: HYDROcodone/APAP 5 MG/325 MG (LORTAB) TAB PO PRN (21:00)
[2019-03-17] MEDS: MELATONIN 3 MG TABLET PO SCH (21:00)
[2019-03-18] VITALS: BP 124/72
[2019-03-18] MEDS: inSUlin ASPART (NovoLOG) 1 UNIT/0.01 ML (CHARGE PER UNIT) SC SCH ×4 (00:11→18:52)
[2019-03-18] MEDS: fentaNYL INJECTION 100 MCG/2 ML AMP IVP PRN ×3 (00:24→20:18)
[2019-03-18] MEDS: MICONAZOLE 2% POWDER (DESENEX AF) 90 GM TP SCH ×3 (00:29→20:19)
[2019-03-18] MEDS: PIPERACILLIN/TAZO 4.5 GM/NS 100 ML IV SCH ×6 (01:19→16:00)
[2019-03-18] MEDS: HYDROcodone/APAP 5 MG/325 MG (LORTAB) TAB PO PRN ×4 (02:28→21:34)
[2019-03-18 03:47] VITALS: BP 108/67
[2019-03-18 05:05] LABS: BASOPHILS % (AUTO) 0 % (0-10); EOSINOPHILS # (AUTO) 0.1 10^3/uL (0.0-0.3); EOSINOPHILS % (AUTO) 2 % (0-10); HEMATOCRIT 27 % (40-54); LYMPHOCYTES # (AUTO) 2.9 X 10^3 (1.0-4.0); LYMPHOCYTES % (AUTO) 35 % (12-44); MEAN CORPUSCULAR HEMOGLOBIN 28 PG (25-34); MEAN CORPUSCULAR HGB CONC 34 G/DL (32-36); MEAN CORPUSCULAR VOLUME 84 FL (80-99); MEAN PLATELET VOLUME 7.5 FL (7.4-10.4); MONOCYTES # (AUTO) 1.2 X 10^3 (0.0-1.0); MONOCYTES % (AUTO) 15 % (0-12); NEUTROPHILS % (AUTO) 49 % (42-75); PLATELET COUNT 361 10^3/uL (130-400); RED CELL DISTRIBUTION WIDTH 14.7 % (10.0-14.5); WHITE BLOOD COUNT 8.3 10^3/uL (4.3-11.0)
[2019-03-18 05:24] LABS: BUN/CREATININE RATIO 20; CALCIUM 8.5 MG/DL (8.5-10.1); CARBON DIOXIDE 23 MMOL/L (21-32); CHLORIDE 101 MMOL/L (98-107); CREATININE SERUM 0.64 MG/DL (0.60-1.30); GFR ESTIMATED > 60; GLUCOSE 69 MG/DL (70-105); MAGNESIUM 1.8 MG/DL (1.6-2.4); POTASSIUM 3.1 MMOL/L (3.6-5.0); SODIUM 134 MMOL/L (135-145)
--- NOTE | 2019-03-18 07:53 | Pulmonary Progress Note ---
Subjective Time Seen by a Provider: 07:52 Subjective/Events-last exam No complications noted. Sepsis Event Evaluation Height, Weight, BMI Height: 5'3.00" Weight: 150lbs. 0.3oz. 68.190638ft; 22.17 BMI Method:Stated Exam Exam Vital Signs Date Time Temp Pulse Resp B/P (MAP) Pulse Ox O2 Delivery O2 Flow Rate FiO2 03/18/19 07:24 94 Room Air 03/18/19 07:00 64 03/18/19 03:47 36.3 54 18 108/67 (81) 98 Room Air 03/18/19 01:19 60 03/18/19 00:00 36.6 57 18 124/72 (89) 98 Room Air 03/17/19 20:00 96 Room Air 03/17/19 19:28 36.6 56 18 131/75 (93) 97 Room Air 03/17/19 19:00 60 03/17/19 18:47 Room Air 03/17/19 16:00 36.2 67 19 135/86 (102) 98 Room Air 03/17/19 14:00 36.8 61 18 135/80 (98) 97 Room Air 03/17/19 13:00 54 03/17/19 12:00 36.5 03/17/19 12:00 61 15 159/97 (117) 99 Room Air 03/17/19 11:00 63 20 98 Room Air 03/17/19 10:00 59 23 98 Room Air 03/17/19 09:00 63 28 98 Room Air 03/17/19 08:00 59 17 98 Room Air I & O 03/18/19 07:00 Intake Total 2920 ml Output Total 3550 ml Balance -630 ml Height & Weight Height: 5'3.00" Weight: 150lbs. 0.3oz. 68.875395pf; 22.17 BMI Method:Stated General Appearance: No Apparent Distress, WD/WN, Chronically ill, Thin HEENT: PERRL/EOMI, Moist Mucous Membranes Neck: Non Tender, Supple Respiratory: Lungs Clear Cardiovascular: Regular Rate, Rhythm Capillary Refill: Less Than 3 Seconds Peripheral Pulses: 2+ Radial Pulses (R), 2+ Radial Pulses (L) Gastrointestinal: distended (minimal ) Extremity: Normal Capillary Refill, No Pedal Edema, Other (C3 quadriplegia) Neurologic/Psychiatric: Alert, Oriented x3, Motor Weakness (quadriplegia) Skin: Normal Color, Warm/Dry Lymphatic: No Adenopathy Results Lab Laboratory Tests 03/16/19 17:50 03/17/19 03:00 03/17/19 11:50 03/18/19 05:00 Assessment/Plan Assessment/Plan Severe sepsis with shock probably from UTI (Klebsiella) - improving -Zosyn Anemia - occult stool is positive Hypokalemia -replace Hx of COPD -SVNs -Monitor Neurogenic bladder DM Spinal cord injury C1-C4 Anxiety ALONDRA HUSSEIN DO Mar 18, 2019 07:53
[2019-03-18] MEDS: ALPRAZolam 0.25 MG (XANAX) TAB PO SCH ×4 (08:00→20:17)
[2019-03-18] MEDS: PANTOPRAZOLE 40 MG (PROTONIX) VIAL IV SCH ×2 (08:00→19:19)
[2019-03-18] MEDS: LORATADINE (CLARITIN) 10 MG TAB PO SCH (08:00)
[2019-03-18] MEDS: FAMOTIDINE 20 MG (PEPCID) TABLET PO SCH ×2 (08:00→19:18)
[2019-03-18] MEDS: MONTELUKAST 10 MG (SINGULAIR) TAB PO SCH (08:02)
[2019-03-18] MEDS: BACLOFEN 10 MG (LIORESAL) TAB PO SCH ×3 (08:02→19:18)
[2019-03-18 08:05] VITALS: BP 119/71
[2019-03-18] MEDS: DAKIN'S FULL STRENGTH (0.5%) 480 ML BTL TOP SCH ×2 (08:05→20:18)
--- NOTE | 2019-03-18 08:13 | Diagnostic Imaging Report ---
Indication: Dyspnea, sepsis. Comparison: 03/17/2019. Discussion: Single portable upright view of the chest was obtained. Postoperative changes of the right chest wall are stable. Stable normal heart size. No focal consolidation, pleural fluid, or pneumothorax. Right-sided central venous catheter stable. Impression: 1. No acute cardiopulmonary process. Dictated by: Dictated on workstation # [id number]
--- NOTE | 2019-03-18 08:42 | Progress Note - Surgery ---
ROMAIN EDWARDS,MED STUDENT 03/18/19 0842: Subjective Date Seen by a Provider: Mar 18, 2019 Time Seen by a Provider: 07:40 Subjective/Events-last exam Mr. Fink continues to be somnolent and have confusion. He states he is still feeling fatigued and feverish. No other complaints at this time. Review of Systems General: No Chills; Fatigue Pulmonary: No Dyspnea, No Cough Cardiovascular: No: Chest Pain, Edema Gastrointestinal: Abdominal Pain Genitourinary: No Retention Neurological: Weakness sacral decubitus ulcer, bilateral heel pressure sores Objective Exam Vital Signs Date Time Temp Pulse Resp B/P (MAP) Pulse Ox O2 Delivery O2 Flow Rate FiO2 03/18/19 07:24 94 Room Air 03/18/19 07:00 64 03/18/19 03:47 36.3 54 18 108/67 (81) 98 Room Air 03/18/19 01:19 60 03/18/19 00:00 36.6 57 18 124/72 (89) 98 Room Air 03/17/19 20:00 96 Room Air 03/17/19 19:28 36.6 56 18 131/75 (93) 97 Room Air 03/17/19 19:00 60 03/17/19 18:47 Room Air 03/17/19 16:00 36.2 67 19 135/86 (102) 98 Room Air 03/17/19 14:00 36.8 61 18 135/80 (98) 97 Room Air 03/17/19 13:00 54 03/17/19 12:00 36.5 03/17/19 12:00 61 15 159/97 (117) 99 Room Air 03/17/19 11:00 63 20 98 Room Air 03/17/19 10:00 59 23 98 Room Air 03/17/19 09:00 63 28 98 Room Air I & O 03/18/19 07:00 Intake Total 2920 ml Output Total 3550 ml Balance -630 ml Capillary Refill : Less Than 3 Seconds General Appearance: No Apparent Distress, WD/WN, Chronically ill, Thin HEENT: PERRL/EOMI, Moist Mucous Membranes Neck: Other (Right PICC line) Respiratory: Lungs Clear, Normal Breath Sounds Cardiovascular: No Murmur, Bradycardia Peripheral Pulses: 2+ Radial Pulses (R), 2+ Radial Pulses (L) Gastrointestinal: normal bowel sounds, soft, tenderness Extremity: No Pedal Edema, Other (C3 quadriplegia) Neurologic/Psychiatric: Alert, Motor Weakness (quadriplegia), Other (Oriented to person and place) Skin: Normal Color, Warm/Dry Results Lab Laboratory Tests 03/17/19 11:22: Glucometer 126H 03/17/19 11:50: Potassium Level 3.0L 03/17/19 16:56: Glucometer 185H 03/17/19 23:50: Glucometer 105 03/18/19 05:00: White Blood Count 8.3, Red Blood Count 3.18L, Hemoglobin 9.0L, Hematocrit 27L, Mean Corpuscular Volume 84, Mean Corpuscular Hemoglobin 28, Mean Corpuscular Hemoglobin Concent 34, Red Cell Distribution Width 14.7H, Platelet Count 361, Mean Platelet Volume 7.5, Neutrophils (%) (Auto) 49, Lymphocytes (%) (Auto) 35, Monocytes (%) (Auto) 15H, Eosinophils (%) (Auto) 2, Basophils (%) (Auto) 0, Neutrophils # (Auto) 4.0, Lymphocytes # (Auto) 2.9, Monocytes # (Auto) 1.2H, Eosinophils # (Auto) 0.1, Basophils # (Auto) 0.0, Sodium Level 134L, Potassium Level 3.1L, Chloride Level 101, Carbon Dioxide Level 23, Anion Gap 10, Blood Urea Nitrogen 13, Creatinine 0.64, Estimat Glomerular Filtration Rate > 60, BUN/Creatinine Ratio 20, Glucose Level 69L, Calcium Level 8.5, Phosphorus Level 3.0, Magnesium Level 1.8 03/18/19 06:58: Glucometer 126H Microbiology 03/14/19 Blood Culture - Preliminary, Resulted No growth 03/14/19 MRSA Screen - Final, Complete MRSA not isolated 03/14/19 Urine Culture - Final, Complete Klebsiella pneumoniae Assessment/Plan Assessment/Plan Assessment/Plan Sacral Decubitus Ulcer Stage 4 UTI with Sepsis Continue Dakins solution for sacral decub with changes BID, Continue IV abx, IVF, and pain control as needed. Will continue to monitor to determine if need for surgical debridement Clinical Quality Measures DVT/VTE Risk/Contraindication: Risk Factor Score Per Nursin RFS Level Per Nursing on Admit: 4+=Very High MACIEL GARCÍA DO 03/18/19 1218: Subjective Time Seen by a Provider: 11:06 Assessment/Plan Assessment/Plan Assessment/Plan I agree with this plan. Supervisory-Addendum Brief Verification & Attestation Participated in pt care: history, MDM, physical Personally performed: exam, history, MDM Care discussed with: Medical Student Procedures: n/a Verification and Attestation of Medical Student E/M Service A medical student performed and documented this service in my presence. I reviewed and verified all information documented by the medical student and made modifications to such information, when appropriate. I personally performed the physical exam and medical decision making. Maciel García, Mar 18, 2019,12:18 ROMAIN EDWARDSMED STUDENT Mar 18, 2019 08:42 MACIEL GARCÍA DO Mar 18, 2019 12:18
--- NOTE | 2019-03-18 08:55 | NUR ---
This RN entered the room to find the pt's left arm tied to the bed with a sheet. When asked how this occurred the pt stated his son tied his arm down to bed with the sheet per pt's request. Instructed pt and son that tying a extremity down is considered a restraint and is not appropriate for the pt at this time. Will continue to monitor.
[2019-03-18] MEDS ORDERED: DAKIN'S 1/4 STRENGTH (0.125%) 473 ML BTL TOP SCH (09:00)
--- NOTE | 2019-03-18 09:30 | Progress Note - Hospitalist ---
Subjective HPI/CC On Admission Date Seen by Provider: Mar 18, 2019 Time Seen by Provider: 08:30 Chief complaint: Septic shock HPI: This is a 53yoWM known to me from a 30 day stay in inpatient rehab following quadriplegia following a fall, sent over to [facility], who presents after leaving [facility] the last three admissions last time for decubitus ulcer debridement, who presented to the ER found to have septic shock and systolic BP of 80, found to have his goodman catheter removed and uncertain who did that and found to have extremely distended bladder so goodman catheter was re-inserted, Pt was given aggressive IV fluids and empiric antibiotics of Zosyn and Vanc due to Pseudomonas bacteremia sepsis before and Pt was placed in the ICU. In addition to his previous decubitus ulcer, he has another decubitus ulcer. He was set to g o to [facility] yesterday but instead is admitted for septic shock. Subjective/Events-last exam Patient doing pretty well Son at the bedside facing the window with his back to me the entire visit Patient feels pretty good today but he states it is hard to say Labs remained stable Overall prognosis is extremely poor Very difficult to manage Review of Systems General: Fatigue Objective Exam Vital Signs Vital Signs Date Time Temp Pulse Resp B/P (MAP) Pulse Ox O2 Delivery O2 Flow Rate FiO2 03/18/19 13:00 50 03/18/19 08:05 36.6 21 119/71 (87) 98 Room Air 03/16/19 00:00 1.00 Capillary Refill : Less Than 3 Seconds General Appearance: No Apparent Distress, WD/WN, Chronically ill Respiratory: Chest Non Tender, Lungs Clear, Normal Breath Sounds, No Accessory Muscle Use, No Respiratory Distress Cardiovascular: Regular Rate, Rhythm, No Edema, No Gallop, No JVD, No Murmur, Normal Peripheral Pulses Neurologic/Psychiatric: Alert, Oriented x3, Motor Weakness Results/Procedures Lab Laboratory Tests 03/18/19 05:00 Patient resulted labs reviewed. Assessment/Plan Assessment and Plan Assess & Plan/Chief Complaint Assessment: Septic shock UTI Multiple decubitus ulcers Quadriplegia Frequent leaving AGAINST MEDICAL ADVICE Plan: Monitor closely [facility] Critically Ill Patient (obtunded and possibly septic.) Diagnosis/Problems Diagnosis/Problems (1) Septic shock Status: Acute (2) Quadriplegia Status: Acute (3) Uncontrolled diabetes mellitus Status: Chronic (4) Chronic pain Status: Chronic Permanent Comment: Low back pain Last Edited By: Georgia Zambrano on Sep 03, 2017 12:27 (5) Type 2 diabetes mellitus with hyperglycemia Status: Chronic (6) COPD (chronic obstructive pulmonary disease) Status: Chronic Clinical Quality Measures DVT/VTE Risk/Contraindication: Risk Factor Score Per Nursin RFS Level Per Nursing on Admit: 4+=Very High MARGUERITE GAN DO Mar 18, 2019 09:30
[2019-03-18 12:00] VITALS: BP 118/71
[2019-03-18] MEDS: ENOXAPARIN 40 MG/0.4 ML (LOVENOX) SYR SC SCH (13:02)
[2019-03-18] MEDS: LACTATED RINGERS 1,000 ML IV SCH (14:58)
[2019-03-18 15:50] VITALS: BP 118/70
[2019-03-18] MEDS: QUEtiapine 25 MG (SEROquel) TAB IMMEDIATE RELEASE PO SCH (19:18)
[2019-03-18] MEDS: MELATONIN 3 MG TABLET PO SCH (19:19)
[2019-03-18 20:55] VITALS: BP 127/73
[2019-03-19] VITALS: BP 109/67
[2019-03-19] MEDS: HYDROcodone/APAP 5 MG/325 MG (LORTAB) TAB PO PRN ×2 (03:49→08:31)
[2019-03-19 03:59] VITALS: BP 99/68
[2019-03-19 05:07] LABS: BASOPHILS % (AUTO) 0 % (0-10); EOSINOPHILS # (AUTO) 0.1 10^3/uL (0.0-0.3); EOSINOPHILS % (AUTO) 1 % (0-10); HEMATOCRIT 28 % (40-54); HEMOGLOBIN 9.3 G/DL (13.3-17.7); LYMPHOCYTES # (AUTO) 2.6 X 10^3 (1.0-4.0); LYMPHOCYTES % (AUTO) 35 % (12-44); MEAN CORPUSCULAR HEMOGLOBIN 28 PG (25-34); MEAN CORPUSCULAR HGB CONC 33 G/DL (32-36); MEAN CORPUSCULAR VOLUME 85 FL (80-99); MEAN PLATELET VOLUME 7.4 FL (7.4-10.4); MONOCYTES % (AUTO) 14 % (0-12); NEUTROPHILS # (AUTO) 3.7 X 10^3 (1.8-7.8); NEUTROPHILS % (AUTO) 49 % (42-75); PLATELET COUNT 368 10^3/uL (130-400); RED CELL DISTRIBUTION WIDTH 15.2 % (10.0-14.5); WHITE BLOOD COUNT 7.5 10^3/uL (4.3-11.0)
[2019-03-19 05:40] LABS: BUN/CREATININE RATIO 20; CALCIUM 8.3 MG/DL (8.5-10.1); CARBON DIOXIDE 22 MMOL/L (21-32); CHLORIDE 106 MMOL/L (98-107); CREATININE SERUM 0.66 MG/DL (0.60-1.30); GFR ESTIMATED > 60; GLUCOSE 123 MG/DL (70-105); MAGNESIUM 1.7 MG/DL (1.6-2.4); PHOSPHORUS 3.8 MG/DL (2.3-4.7); POTASSIUM 3.2 MMOL/L (3.6-5.0); SODIUM 140 MMOL/L (135-145)
[2019-03-19] MEDS: inSUlin ASPART (NovoLOG) 1 UNIT/0.01 ML (CHARGE PER UNIT) SC SCH ×4 (06:29→17:52)
[2019-03-19] MEDS ORDERED: KCL 20 MEQ TAB (K-DUR) PO NR (07:15)
--- NOTE | 2019-03-19 07:16 | Pulmonary Progress Note ---
Subjective Time Seen by a Provider: 07:30 Subjective/Events-last exam No complications noted. Sepsis Event Evaluation Height, Weight, BMI Height: 5'3.00" Weight: 150lbs. 0.3oz. 68.148847ua; 22.17 BMI Method:Stated Exam Exam Vital Signs Date Time Temp Pulse Resp B/P (MAP) Pulse Ox O2 Delivery O2 Flow Rate FiO2 03/19/19 03:59 36.5 65 18 99/68 (78) 98 Room Air 03/19/19 01:00 56 03/19/19 00:00 36.4 54 16 109/67 (81) 96 Room Air 03/18/19 20:55 36.6 58 18 127/73 (91) 97 Room Air 03/18/19 20:00 Room Air 03/18/19 19:00 63 03/18/19 18:07 97 Room Air 03/18/19 15:50 36.2 62 20 118/70 (86) 97 Room Air 03/18/19 13:00 50 03/18/19 12:00 36.3 53 20 118/71 (87) 97 Room Air 03/18/19 08:05 36.6 53 21 119/71 (87) 98 Room Air 03/18/19 08:00 Room Air 03/18/19 07:24 94 Room Air I & O 03/19/19 07:00 Intake Total 1890 ml Output Total 2175 ml Balance -285 ml Height & Weight Height: 5'3.00" Weight: 150lbs. 0.3oz. 68.182247td; 22.17 BMI Method:Stated General Appearance: No Apparent Distress, WD/WN, Chronically ill HEENT: PERRL/EOMI, Moist Mucous Membranes Neck: Non Tender, Supple Respiratory: Chest Non Tender, Lungs Clear, Normal Breath Sounds, No Accessory Muscle Use, No Respiratory Distress Cardiovascular: Regular Rate, Rhythm, No Edema, No Gallop, No JVD, No Murmur, Normal Peripheral Pulses Capillary Refill: Less Than 3 Seconds Peripheral Pulses: 2+ Radial Pulses (R), 2+ Radial Pulses (L) Gastrointestinal: distended (minimal ) Extremity: Normal Capillary Refill, No Pedal Edema, Other (C3 quadriplegia) Neurologic/Psychiatric: Alert Skin: Normal Color, Warm/Dry Lymphatic: No Adenopathy Results Lab Laboratory Tests 03/17/19 11:50 03/18/19 05:00 03/19/19 05:00 Assessment/Plan Assessment/Plan Severe sepsis with shock probably from UTI (Klebsiella) - improving -s/p Zosyn Anemia - occult stool is positive Hypokalemia -replace Hx of COPD -SVNs -Monitor Neurogenic bladder DM Spinal cord injury C1-C4 Anxiety PT is ok for discharge from pulmonary standpoint. ALONDRA HUSSEIN DO Mar 19, 2019 07:16
[2019-03-19 08:00] VITALS: BP 113/62
--- NOTE | 2019-03-19 08:11 | Progress Note - Surgery ---
ROMAIN EDWARDS,MED STUDENT 03/19/19 0811: Subjective Date Seen by a Provider: Mar 19, 2019 Time Seen by a Provider: 06:50 Subjective/Events-last exam Mr. Fink states he is less fatigued and confused when compared to yesterday. He states he has a restful night and is feeling better today. He is still somnolent on exam and oriented to person and place. He states he continues to have generalized pain but is unable to state location, characterization, or severity. Review of Systems General: Fatigue Pulmonary: No Dyspnea, No Cough Cardiovascular: No: Chest Pain Gastrointestinal: No: Nausea, Vomiting, Abdominal Pain Musculoskeletal: other (generalized pain) Neurological: Weakness, Confusion sacral decubitus ulcer, bilateral heel pressure sores Objective Exam Vital Signs Date Time Temp Pulse Resp B/P (MAP) Pulse Ox O2 Delivery O2 Flow Rate FiO2 03/19/19 07:00 52 03/19/19 03:59 36.5 65 18 99/68 (78) 98 Room Air 03/19/19 01:00 56 03/19/19 00:00 36.4 54 16 109/67 (81) 96 Room Air 03/18/19 20:55 36.6 58 18 127/73 (91) 97 Room Air 03/18/19 20:00 Room Air 03/18/19 19:00 63 03/18/19 18:07 97 Room Air 03/18/19 15:50 36.2 62 20 118/70 (86) 97 Room Air 03/18/19 13:00 50 03/18/19 12:00 36.3 53 20 118/71 (87) 97 Room Air I & O 03/19/19 07:00 Intake Total 1890 ml Output Total 2175 ml Balance -285 ml Capillary Refill : Less Than 3 Seconds General Appearance: WD/WN, Chronically ill HEENT: PERRL/EOMI, Moist Mucous Membranes Neck: Non Tender, Other (R PICC line) Respiratory: Chest Non Tender, Lungs Clear, Normal Breath Sounds, No Respiratory Distress Cardiovascular: Regular Rate, Rhythm, No Murmur Peripheral Pulses: 2+ Radial Pulses (R), 2+ Radial Pulses (L) Gastrointestinal: normal bowel sounds, non tender, soft Extremity: No Pedal Edema, Other (partial quadraplegia ) Neurologic/Psychiatric: Other (somnolent) Skin: Normal Color, Warm/Dry, Other (stage 4 sacral decubitus ulcer, area of eschar noted on lower left side of wound) Results Lab Laboratory Tests 03/18/19 12:05: Glucometer 113H 03/18/19 18:48: Glucometer 105 03/19/19 00:38: Glucometer 194H 03/19/19 05:00: White Blood Count 7.5, Red Blood Count 3.29L, Hemoglobin 9.3L, Hematocrit 28L, Mean Corpuscular Volume 85, Mean Corpuscular Hemoglobin 28, Mean Corpuscular Hemoglobin Concent 33, Red Cell Distribution Width 15.2H, Platelet Count 368, Mean Platelet Volume 7.4, Neutrophils (%) (Auto) 49, Lymphocytes (%) (Auto) 35, Monocytes (%) (Auto) 14H, Eosinophils (%) (Auto) 1, Basophils (%) (Auto) 0, Neutrophils # (Auto) 3.7, Lymphocytes # (Auto) 2.6, Monocytes # (Auto) 1.0, Eos inophils # (Auto) 0.1, Basophils # (Auto) 0.0, Sodium Level 140, Potassium Level 3.2L, Chloride Level 106, Carbon Dioxide Level 22, Anion Gap 12, Blood Urea Nitrogen 13, Creatinine 0.66, Estimat Glomerular Filtration Rate > 60, BUN/Cre atinine Ratio 20, Glucose Level 123H, Calcium Level 8.3L, Phosphorus Level 3.8, Magnesium Level 1.7 Microbiology 03/14/19 Blood Culture - Preliminary, Resulted No growth 03/14/19 MRSA Screen - Final, Complete MRSA not isolated 03/14/19 Urine Culture - Final, Complete Klebsiella pneumoniae Assessment/Plan Assessment/Plan Assessment/Plan Stage 4 Sacral Decubitus Ulcer UTI with Sepsis Continue Dakins solution and dressing changes BID for sacral decub ulcer. Continue IVF, IV Abx, and pain control as needed. Will continue to monitor if surgical debridement is needed for sacral decub. Clinical Quality Measures DVT/VTE Risk/Contraindication: Risk Factor Score Per Nursin RFS Level Per Nursing on Admit: 4+=Very High MACIEL GARCÍA DO 03/19/19 1414: Subjective Time Seen by a Provider: 13:54 Subjective/Events-last exam Pt seen and examined, no changes. He states he would like to go to SNF. Assessment/Plan Assessment/Plan Assessment/Plan Pt will need surgical debridement before he leaves, will time surgery with pt leaving. He has necrotic tissue in and around the Decub. Supervisory-Addendum Brief Verification & Attestation Participated in pt care: history, MDM, physical Personally performed: exam, history, MDM Care discussed with: Medical Student Procedures: n/a Verification and Attestation of Medical Student E/M Service A medical student performed and documented this service in my presence. I reviewed and verified all information documented by the medical student and made modifications to such information, when appropriate. I personally performed the physical exam and medical decision making. Maciel García, Mar 19, 2019,14:14 ROMAIN EDWARDSMED STUDENT Mar 19, 2019 08:11 MACIEL GARCÍA DO Mar 19, 2019 14:14
[2019-03-19] MEDS: FAMOTIDINE 20 MG (PEPCID) TABLET PO SCH ×2 (08:30→22:27)
[2019-03-19] MEDS: ALPRAZolam 0.25 MG (XANAX) TAB PO SCH ×4 (08:31→22:27)
[2019-03-19] MEDS: LORATADINE (CLARITIN) 10 MG TAB PO SCH (08:31)
[2019-03-19] MEDS: BACLOFEN 10 MG (LIORESAL) TAB PO SCH ×3 (08:31→22:27)
[2019-03-19] MEDS: PANTOPRAZOLE 40 MG (PROTONIX) TAB PO SCH (08:31)
[2019-03-19] MEDS: MONTELUKAST 10 MG (SINGULAIR) TAB PO SCH (08:31)
[2019-03-19] MEDS: MICONAZOLE 2% POWDER (DESENEX AF) 90 GM TP SCH ×2 (08:37→21:00)
[2019-03-19] MEDS: DAKIN'S FULL STRENGTH (0.5%) 480 ML BTL TOP SCH ×2 (08:37→21:00)
--- NOTE | 2019-03-19 08:40 | Diagnostic Imaging Report ---
Indication: Dyspnea, septic shock. Compared: 03/18 Findings: Right IJ at the SVC, plating of rib fractures noted, no displaced rib injury, no effusion or pneumothorax, no failure pattern. Impression: Post interventional changes, otherwise negative. Dictated by: Dictated on workstation # [id number]
[2019-03-19 12:00] VITALS: BP 91/45
[2019-03-19] MEDS: ENOXAPARIN 40 MG/0.4 ML (LOVENOX) SYR SC SCH (13:32)
--- NOTE | 2019-03-19 14:57 | NUR ---
Pastoral care visit. Pt asleep.
[2019-03-19 15:37] VITALS: BP 116/60
--- NOTE | 2019-03-19 17:31 | Progress Note ---
Subjective Subjective/Events-last exam Afebrile, has had borderline low BP and bradycardia. States he is feeling okay, hopeful to get out of hospital soon, but is unsure about his 's plans. Objective Exam Last Set of Vital Signs Vital Signs Date Time Temp Pulse Resp B/P (MAP) Pulse Ox O2 Delivery O2 Flow Rate FiO2 03/19/19 15:37 36.9 73 16 116/60 (78) 98 Room Air 03/16/19 00:00 1.00 Capillary Refill : Less Than 3 Seconds I&O Intake and Output 03/19/19 00:00 Intake Total 3410 ml Output Total 2075 ml Balance 1335 ml Intake Oral 1630 ml IV Total 1780 ml Output Urine Total 2075 ml General: Alert, No Acute Distress Lungs: Clear to Auscultation, Normal Air Movement Heart: Regular Rate, No Murmurs Abdomen: Normal Bowel Sounds, Soft, No Tenderness Neuro: Normal Speech Psych/Mental Status: Mental Status NL Results/Procedures Lab Laboratory Tests 03/18/19 18:48: Glucometer 105 03/19/19 00:38: Glucometer 194H 03/19/19 05:00: White Blood Count 7.5, Red Blood Count 3.29L, Hemoglobin 9.3L, Hematocrit 28L, Mean Corpuscular Volume 85, Mean Corpuscular Hemoglobin 28, Mean Corpuscular Hemoglobin Concent 33, Red Cell Distribution Width 15.2H, Platelet Count 368, Mean Platelet Volume 7.4, Neutrophils (%) (Auto) 49, Lymphocytes (%) (Auto) 35, Monocytes (%) (Auto) 14H, Eosinophils (%) (Auto) 1, Basophils (%) (Auto) 0, N eutrophils # (Auto) 3.7, Lymphocytes # (Auto) 2.6, Monocytes # (Auto) 1.0, Eosinophils # (Auto) 0.1, Basophils # (Auto) 0.0, Sodium Level 140, Potassium Level 3.2L, Chloride Level 106, Carbon Dioxide Level 22, Anion Gap 12, Blood Urea Nitrogen 13, Creatinine 0.66, Estimat Glomerular Filtration Rate > 60, BUN/Creatinine Ratio 20, Glucose Level 123H, Calcium Level 8.3L, Phosphorus Level 3.8, Magnesium Level 1.7 03/19/19 12:12: Glucometer 283H Microbiology 03/14/19 Blood Culture - Preliminary, Resulted No growth 03/14/19 MRSA Screen - Final, Complete MRSA not isolated 03/14/19 Urine Culture - Final, Complete Klebsiella pneumoniae Assessment/Plan Assessment/Plan (1) Type 2 diabetes mellitus with hyperglycemia Status: Chronic Qualifiers: Qualified Codes: E11.65 - Type 2 diabetes mellitus with hyperglycemia; 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 Historically has been d ifficult to manage due to pt pain and subsequent difficulty with offloading. (3) Anemia Status: Chronic Assessment & Plan: Requiring transfusion this admission. Multifactorial- poor intake, blood loss from wound care, chronic disease. (4) Anxiety Status: Chronic Assessment & Plan: On alprazolam and citalopram. Psychology recommended increase escitalopram to 20 mg, done. (5) Hypokalemia Status: Acute Assessment & Plan: Replace and recheck. (6) Spinal cord injury at C1-C4 level Status: Chronic Assessment & Plan: Difficulty managing at home, will look into possible nursing facility placement. (7) Urinary tract infection Status: Acute Assessment & Plan: Klebsiella resistant to amp and nitrofurantoin. Treated with Zosyn x 5 days. Qualifiers: Qualified Codes: N30.01 - Acute cystitis with hematuria (8) Decubitus ulcer of coccygeal region Status: Acute Qualifiers: Qualified Codes: L89.159 - Pressure ulcer of sacral region, unspecified stage (9) Septic shock Status: Resolved (10) DVT prophylaxis Status: Acute Assessment & Plan: Enoxaparin Clinical Quality Measures DVT/VTE Risk/Contraindication: Risk Factor Score Per Nursin RFS Level Per Nursing on Admit: 4+=Very High PRANAY WADE MD Mar 19, 2019 17:31
--- NOTE | 2019-03-19 17:31 | NUR ---
CM/SS. Respond to consult, multiple visits to finalize complex discharge planning. SNF: Referral completed with [facility], they have not yet confirmed acceptance. Affiliate Marketing Coordinator and [facility] Admin will be absent tomorrow, [place] DAYNE/Janeen Kay will followup with CM/Helene. DPOA-HC: Lengthy involvement to coordinate completion of advanced directive. Patient's Aunt Lena Yung reached out to him by phone today twice and patient agreed she would be the best choice as his healthcare agent. Documents completed with appropriate witnesses due to patient's inability to provide a routine signature due to quadriplegia. Екатерина resides in [place], she appears very interested in patient's well-being and will continue to work with patient/spouse/children regarding all next steps. Patient shared that he was raised around Aunt Екатерина who is his dad's sister and the relationship seems of great respect for both. CARE Assessment: Completed with witnesses for patient's yong as earlier noted, SNF to be added once confirmed. CM staff to finalize when able. SUMMARY: Patient very open today to next step of care in community SNF. He has insight into the issues of returning home, he reports that his sons ages 17 and 15 are the ones who provide care for him rather than his spouse. He has been to Susan Fink for 25 years, he states she has multiple personalities and mental health issues. Aunt Екатерина seems to have a clear grasp of Susan's inability to be adequate support to patient at this time. Patient also shared that he has fathered 10 children and that most were taken into state custody in various states. He indicates he turned to substance use because of this stress and it seems to continue to be a sad life chapter; however, he also indicates he has been substance free for 20 years. Patient did not verbalize any negative thoughts about the discharge or care plan. He did not voice threats of AMA, he seemed resolved to being where he has 24-7 nursing and stated he understood his family could not take care of his wound at home. Lena Yung, Aunt and now POA-HC [address] [place] [address] PH: [phone]
[2019-03-19 19:09] VITALS: BP 140/69
[2019-03-19] MEDS: QUEtiapine 25 MG (SEROquel) TAB IMMEDIATE RELEASE PO SCH (22:26)
[2019-03-19] MEDS: MELATONIN 3 MG TABLET PO SCH (22:27)
[2019-03-20] VITALS: BP 135/81
[2019-03-20 04:00] VITALS: BP 119/75
[2019-03-20 05:56] LABS: BASOPHILS % (AUTO) 0 % (0-10); EOSINOPHILS # (AUTO) 0.1 10^3/uL (0.0-0.3); EOSINOPHILS % (AUTO) 1 % (0-10); HEMATOCRIT 29 % (40-54); HEMOGLOBIN 9.4 G/DL (13.3-17.7); LYMPHOCYTES # (AUTO) 3.3 X 10^3 (1.0-4.0); LYMPHOCYTES % (AUTO) 33 % (12-44); MEAN CORPUSCULAR HEMOGLOBIN 28 PG (25-34); MEAN CORPUSCULAR HGB CONC 32 G/DL (32-36); MEAN CORPUSCULAR VOLUME 88 FL (80-99); MEAN PLATELET VOLUME 7.8 FL (7.4-10.4); MONOCYTES # (AUTO) 1.1 X 10^3 (0.0-1.0); MONOCYTES % (AUTO) 11 % (0-12); NEUTROPHILS # (AUTO) 5.4 X 10^3 (1.8-7.8); NEUTROPHILS % (AUTO) 54 % (42-75); PLATELET COUNT 303 10^3/uL (130-400); RED CELL DISTRIBUTION WIDTH 15.9 % (10.0-14.5); WHITE BLOOD COUNT 9.9 10^3/uL (4.3-11.0)
[2019-03-20] MEDS: inSUlin ASPART (NovoLOG) 1 UNIT/0.01 ML (CHARGE PER UNIT) SC SCH ×3 (06:00→12:30)
[2019-03-20 06:14] LABS: BUN/CREATININE RATIO 8; CALCIUM 8.7 MG/DL (8.5-10.1); CARBON DIOXIDE 22 MMOL/L (21-32); CHLORIDE 110 MMOL/L (98-107); GFR ESTIMATED > 60; GLUCOSE 105 MG/DL (70-105); MAGNESIUM 1.8 MG/DL (1.6-2.4); PHOSPHORUS 2.2 MG/DL (2.3-4.7); POTASSIUM 3.7 MMOL/L (3.6-5.0); SODIUM 140 MMOL/L (135-145)
[2019-03-20 08:00] VITALS: BP 127/72
--- NOTE | 2019-03-20 08:16 | Progress Note - Surgery ---
ROMAIN EDWARDS,MED STUDENT 03/20/19 0816: Subjective Date Seen by a Provider: Mar 20, 2019 Time Seen by a Provider: 08:00 Subjective/Events-last exam Mr. Fink states he had a restful night and is gradually feeling better. He states he still has pain all over and has had some chills overnight. He voiced concern about discharge and where he will be going. He states he does not believe home would be the best place for his sacral wound to heal. He notes some confusion but does believe it has improved. Review of Systems General: Chills, Fatigue Pulmonary: No Dyspnea, No Cough Cardiovascular: No: Chest Pain, Edema Gastrointestinal: Abdominal Pain; No: Nausea, Vomiting, Diarrhea, Constipation Genitourinary: No Retention Neurological: Weakness, Confusion sacral decubitus ulcer, bilateral heel pressure sores Objective Exam Vital Signs Date Time Temp Pulse Resp B/P (MAP) Pulse Ox O2 Delivery O2 Flow Rate FiO2 03/20/19 07:00 60 03/20/19 04:00 36.5 56 18 119/75 (90) 98 Room Air 03/20/19 01:00 54 03/20/19 00:00 36.5 59 20 135/81 (99) 98 Room Air 03/19/19 20:00 Room Air 03/19/19 19:09 36.7 59 16 140/69 (92) 99 Room Air 03/19/19 18:57 73 03/19/19 15:37 36.9 73 16 116/60 (78) 98 Room Air 03/19/19 12:24 61 03/19/19 12:00 36.2 69 16 91/45 (60) 98 Room Air I & O 03/20/19 07:00 Intake Total 2690 ml Output Total 1300 ml Balance 1390 ml Capillary Refill : Less Than 3 Seconds General Appearance: WD/WN, Chronically ill HEENT: PERRL/EOMI, Moist Mucous Membranes Neck: Non Tender, Other (R PICC line) Respiratory: Chest Non Tender, Lungs Clear, Normal Breath Sounds, No Respiratory Distress Cardiovascular: Regular Rate, Rhythm (62 bmp), No Murmur Peripheral Pulses: 2+ Radial Pulses (R), 2+ Radial Pulses (L) Gastrointestinal: normal bowel sounds, non tender, soft Extremity: No Pedal Edema, Other (partial quadraplegia ) Neurologic/Psychiatric: Alert, Other (oriented to person and place) Skin: Normal Color, Warm/Dry, Other (stage 4 sacral decubitus ulcer, area of eschar noted from 7-8 o'clock) Results Lab Laboratory Tests 03/19/19 12:12: Glucometer 283H 03/19/19 17:52: Glucometer 246H 03/20/19 05:45: White Blood Count 9.9, Red Blood Count 3.32L, Hemoglobin 9.4L, Hematocrit 29L, Mean Corpuscular Volume 88, Mean Corpuscular Hemoglobin 28, Mean Corpuscular Hemoglobin Concent 32, Red Cell Distribution Width 15.9H, Platelet Count 303, Mean Platelet Volume 7.8, Neutrophils (%) (Auto) 54, Lymphocytes (%) (Auto) 33, Monocytes (%) (Auto) 11, Eosinophils (%) (Auto) 1, Basophils (%) (Auto) 0, Neutrophils # (Auto) 5.4, Lymphocytes # (Auto) 3.3, Monocytes # (Auto) 1.1H, Eo sinophils # (Auto) 0.1, Basophils # (Auto) 0.0, Sodium Level 140, Potassium Level 3.7, Chloride Level 110H, Carbon Dioxide Level 22, Anion Gap 8, Blood Urea Nitrogen 5L, Creatinine 0.60, Estimat Glomerular Filtration Rate > 60, BUN/Creatinine Ratio 8, Glucose Level 105, Calcium Level 8.7, Phosphorus Level 2.2L, Magnesium Level 1.8 Microbiology 03/14/19 Blood Culture - Preliminary, Resulted No growth 03/14/19 MRSA Screen - Final, Complete MRSA not isolated 03/14/19 Urine Culture - Final, Complete Klebsiella pneumoniae Assessment/Plan Assessment/Plan Assessment/Plan Stage 4 Sacral Decubitus Ulcer UTI with Sepsis Continue IVF and pain control as needed. Continue Dakin solution dressing changes BID. Sacral decub will need debridement before patient leaves due to necrotic tissue. 5 day Zosyn course completed for UTI from Klebsiella Clinical Quality Measures DVT/VTE Risk/Contraindication: Risk Factor Score Per Nursin RFS Level Per Nursing on Admit: 4+=Very High MACIEL GARCÍA DO 03/20/19 1152: Subjective Time Seen by a Provider: 11:31 Subjective/Events-last exam Pt seen and examined, he is coming to the realization that he needs to go to SNF. He was tearful that his wasn't able to step up. Assessment/Plan Assessment/Plan Assessment/Plan Pt will need debridement of necrotic tissue; however, I don't want to do this unless he is going to get good after care and local wound care. As it is I have debrided him at least 3 times and I think he has been debrided a total of 5 times. He understands this and I will talk with Social Work; regarding his plan. Supervisory-Addendum Brief Verification & Attestation Participated in pt care: history, MDM, physical Personally performed: exam, history, MDM Care discussed with: Medical Student Procedures: n/a Verification and Attestation of Medical Student E/M Service A medical student performed and documented this service in my presence. I reviewed and verified all information documented by the medical student and made modifications to such information, when appropriate. I personally performed the physical exam and medical decision making. Maciel García, Mar 20, 2019,11:52 ROMAIN EDWARDSMED STUDENT Mar 20, 2019 08:16 MACIEL GARCÍA DO Mar 20, 2019 11:52
[2019-03-20] MEDS: ALPRAZolam 0.25 MG (XANAX) TAB PO SCH ×3 (08:38→16:31)
[2019-03-20] MEDS: FAMOTIDINE 20 MG (PEPCID) TABLET PO SCH (08:38)
--- NOTE | 2019-03-20 08:38 | Pulmonary Progress Note ---
Subjective Time Seen by a Provider: 08:37 Subjective/Events-last exam No complications noted. Sepsis Event Evaluation Height, Weight, BMI Height: 5'3.00" Weight: 150lbs. 0.3oz. 68.622204wa; 22.17 BMI Method:Stated Exam Exam Vital Signs Date Time Temp Pulse Resp B/P (MAP) Pulse Ox O2 Delivery O2 Flow Rate FiO2 03/20/19 07:00 60 03/20/19 04:00 36.5 56 18 119/75 (90) 98 Room Air 03/20/19 01:00 54 03/20/19 00:00 36.5 59 20 135/81 (99) 98 Room Air 03/19/19 20:00 Room Air 03/19/19 19:09 36.7 59 16 140/69 (92) 99 Room Air 03/19/19 18:57 73 03/19/19 15:37 36.9 73 16 116/60 (78) 98 Room Air 03/19/19 12:24 61 03/19/19 12:00 36.2 69 16 91/45 (60) 98 Room Air I & O 03/20/19 07:00 Intake Total 2890 ml Output Total 2100 ml Balance 790 ml Height & Weight Height: 5'3.00" Weight: 150lbs. 0.3oz. [id number]; 22.17 BMI Method:Stated General Appearance: No Apparent Distress, WD/WN, Chronically ill HEENT: PERRL/EOMI, Moist Mucous Membranes Neck: Non Tender, Supple Respiratory: Chest Non Tender, Lungs Clear, Normal Breath Sounds, No Accessory Muscle Use, No Respiratory Distress Cardiovascular: Regular Rate, Rhythm, No Edema, No Gallop, No JVD, No Murmur, Normal Peripheral Pulses Capillary Refill: Less Than 3 Seconds Peripheral Pulses: 2+ Radial Pulses (R), 2+ Radial Pulses (L) Gastrointestinal: distended (minimal ) Extremity: Normal Capillary Refill, No Pedal Edema, Other (C3 quadriplegia) Neurologic/Psychiatric: Alert Skin: Normal Color, Warm/Dry Lymphatic: No Adenopathy Results Lab Laboratory Tests 03/19/19 05:00 03/20/19 05:45 Assessment/Plan Assessment/Plan Severe sepsis with shock probably from UTI (Klebsiella) - improving -s/p Zosyn Anemia - occult stool is positive Hx of COPD -SVNs -Monitor Neurogenic bladder DM Spinal cord injury C1-C4 Anxiety PT is ok for discharge from pulmonary standpoint. I am going to sign off please call with any questions or concerns. ALONDRA HUSSEIN DO Mar 20, 2019 08:38
[2019-03-20] MEDS: PANTOPRAZOLE 40 MG (PROTONIX) TAB PO SCH (08:39)
[2019-03-20] MEDS: LORATADINE (CLARITIN) 10 MG TAB PO SCH (08:39)
[2019-03-20] MEDS: MONTELUKAST 10 MG (SINGULAIR) TAB PO SCH (08:39)
[2019-03-20] MEDS: BACLOFEN 10 MG (LIORESAL) TAB PO SCH ×2 (08:44→12:30)
[2019-03-20] MEDS ORDERED: POTASSIUM PHOSPHATE INJ 15 MM in NS (IVPB) 250 ML IV NR (08:45)
[2019-03-20] MEDS: DAKIN'S FULL STRENGTH (0.5%) 480 ML BTL TOP SCH (09:56)
[2019-03-20] MEDS: MICONAZOLE 2% POWDER (DESENEX AF) 90 GM TP SCH (09:56)
[2019-03-20 12:00] VITALS: BP 120/62
[2019-03-20] MEDS ORDERED: CITA20TA9 PO (12:27)
[2019-03-20] MEDS: ENOXAPARIN 40 MG/0.4 ML (LOVENOX) SYR SC SCH (12:30)
--- NOTE | 2019-03-20 12:32 | Discharge Summary ---
Discharge Summary Hospital Course Hospital Course Date of Admission: Mar 14, 2019 at 18:40 Admission Diagnosis : Family Physician/Provider: [place] Date of Discharge: 03/20/19 Discharge Diagnosis: (1) Type 2 diabetes mellitus with hyperglycemia Status: Chronic Qualifiers: Qualified Codes: E11.65 - Type 2 diabetes mellitus with hyperglycemia; Z79.4 - intermediate (current) use of insulin (2) Decubitus ulcer of coccygeal region, stage 4 Status: Chronic Assessment & Plan: Appreciate Surgery recommendations. Historically has been difficult to manage due to pt pain and subsequent difficulty with offloading. (3) Anemia Status: Chronic Assessment & Plan: Requiring transfusion this admission. Multifactorial- poor intake, blood loss from wound care, chronic disease. Stable at time of d/c (4) Anxiety Status: Chronic Assessment & Plan: On alprazolam and citalopram. Psychology recommended increase escitalopram to 20 mg, done. (5) Hypokalemia Status: Acute Assessment & Plan: Replaced (6) Spinal cord injury at C1-C4 level Status: Chronic Assessment & Plan: Difficulty managing at home, discharged to SNF. (7) Urinary tract infection Status: Acute Assessment & Plan: Klebsiella resistant to amp and nitrofurantoin. Treated with Zosyn x 5 days. Qualifiers: Qualified Codes: N30.01 - Acute cystitis with hematuria (8) Decubitus ulcer of coccygeal region Status: Acute Qualifiers: Qualified Codes: L89.159 - Pressure ulcer of sacral region, unspecified stage (9) Septic shock Status: Resolved (10) DVT prophylaxis Status: Acute Assessment & Plan: Enoxaparin Hospital Course: 53 yo male with quadriplegia admitted with urinary tract infection and septic shock that responded well to treatment, completed course of Zosyn for his UTI while inpatient. He also has stage 4 sacral decubitus ulcer as well as coccyx ulcer noted at time of this admission. Surgery managing his wound, he was not able to develop a therapeutic relationship with wound care, did not want to adjust his positioning due to pain. See discharge diagnoses. Labs and Pending Lab Test: Laboratory Tests 03/19/19 17:52: Glucometer 246H 03/20/19 05:45: White Blood Count 9.9, Red Blood Count 3.32L, Hemoglobin 9.4L, Hematocrit 29L, Mean Corpuscular Volume 88, Mean Corpuscular Hemoglobin 28, Mean Corpuscular Hemoglobin Concent 32, Red Cell Distribution Width 15.9H, Platelet Count 303, Mean Platelet Volume 7.8, Neutrophils (%) (Auto) 54, Lymphocytes (%) (Auto) 33, Monocytes (%) (Auto) 11, Eosinophils (%) (Auto) 1, Basophils (%) (Auto) 0, Neutrophils # (Auto) 5.4, Lymphocytes # (Auto) 3.3, Monocytes # (Auto) 1.1H, Eosinophils # (Auto) 0.1, Basophils # (Auto) 0.0, Sodium Level 140, Potassium Level 3.7, Chloride Level 110H, Carbon Dioxide Level 22, Anion Gap 8, Blood Urea Nitrogen 5L, Creatinine 0.60, Estimat Glomerular Filtration Rate > 60, BUN/Creatinine Ratio 8, Glucose Level 105, Calcium Level 8.7, Phosphorus Level 2.2L, Magnesium Level 1.8 03/20/19 11:31: Glucometer 264H Microbiology 03/14/19 Blood Culture - Preliminary, Resulted No growth 03/14/19 MRSA Screen - Final, Complete MRSA not isolated 03/14/19 Urine Culture - Final, Complete Klebsiella pneumoniae Home Meds Active Dakin's (Sodium Hypochlorite) 473 Ml Solution 0 Ml TOP DAILY Reported Lotrimin AF (Miconazole Nitrate) 90 Gm Powder TP BID LAST FILLED 01-29-19 Loratadine 10 Mg Tablet 10 Mg PO DAILY LAST FILLED #30 02-06-19 Singulair (Montelukast Sodium) 10 Mg Tablet 10 Mg PO DAILY LAST FILLED #30 02-06-19 Levemir Flextouch (Insulin Detemir) 100 Unit/1 Ml Insuln.pen 20 Unit SQ HS LAST FILLED 02-06-19 Levemir Flextouch (Insulin Detemir) 100 Unit/1 Ml Insuln.pen 15 Unit SQ DAILY LAST FILLED 02-06-19 Midodrine HCl 10 Mg Tablet 10 Mg PO TID LAST FILLED #90 02-06-19 Iprat-Albut 0.5-3(2.5) mg/3 ml (Ipratropium/Albuterol Sulfate) 3 Ml Ampul.neb 3 Ml NEB BID PRN Senna (Sennosides) 8.6 Mg Tablet 8.6 Mg PO BID PRN Citalopram HBr (Citalopram Hydrobromide) 10 Mg Tablet 10 Mg PO DAILY Acid Safety Clothing And Equipment Developer (FAMOTIDINE) (Famotidine) 20 Mg Tablet 20 Mg PO BID Baclofen 10 Mg Tablet 5 Mg PO TID Melatonin 5 Mg Tablet 10 Mg PO HS Enoxaparin Sodium 40 Mg/0.4 Ml Syringe 40 Mg SC 1400 FILLED #12 02-07-19 AND THEN THE REST ON 02-20-19 FOR #18 SYRINGES Quetiapine Fumarate 50 Mg Tablet 50 Mg PO HS Alprazolam 0.25 Mg Tablet 0.25 Mg PO QID Hydrocodone-Acetamin 5-325 mg (Hydrocodone/Acetaminophen) 1 Each Tablet 1 Tab PO Q6H PRN Skilled NF Admit to: [facility] Certification (SNF) I certify that SNF services are required to be given on an inpatient basis because of the above named patient's need for care home care on a continuing basis for the conditions(s) for which he/she was receiving inpatient hospital services prior to his/her transfer to the SNF. Halfway Facility Order: Nursing Services, Wound Care-Eval/Treat Oxygen Delivery Method: Room Air Discharge Diet: ADA Diet Daily Activity as Tolerated: Yes Pranay Zambrano Mar 20, 2019 12:28 Discharge Physical Exam General: Alert, No Acute Distress Lungs: Clear to Auscultation, Normal Air Movement Heart: Regular Rate, No Murmurs Abdomen: Normal Bowel Sounds, Soft Neuro: Normal Speech Psych/Mental Status: Mood PRANAY ZAMBRANO MD Mar 20, 2019 12:32
--- NOTE | 2019-03-20 14:03 | NUR ---
Discharge information faxed to [facility]. They will transport this day between [id number].
--- NOTE | 2019-03-20 18:01 | NUR ---
report to Pooja at [facility]
== END 2019-03-20 18:00 | DRG 871 ==
LOC: EDUNIT# 16:54 → ER 17:00 → ICU 18:40 → 4TH 03-17 17:21
PROVIDERS: ADMIT Internal Medicine; ATTEND Family Medicine
DX: A41.59 Other Gram-negative sepsis (principal); R65.21 Severe sepsis with septic shock; N30.01 Acute cystitis with hematuria; L89.154 Pressure ulcer of sacral region, stage 4; G82.52 Quadriplegia, C1-C4 incomplete; K59.2 Neurogenic bowel, not elsewhere classified; E11.42 Type 2 diabetes mellitus with diabetic polyneuropathy; E11.65 Type 2 diabetes mellitus with hyperglycemia; D64.9 Anemia, unspecified; N31.9 Neuromuscular dysfunction of bladder, unspecified; J44.9 Chronic obstructive pulmonary disease, unspecified; F41.9 Anxiety disorder, unspecified; E87.6 Hypokalemia; F17.210 Nicotine dependence, cigarettes, uncomplicated; K21.9 Gastro-esophageal reflux disease without esophagitis; Z79.4 Long term (current) use of insulin; Z87.820 Personal history of traumatic brain injury; Z91.19 Patient's noncompliance with other medical treatment and regimen
CPT/HCPCS: 36415; 51702; 71045; 80048; 80053; 80306; 80320; 80329; 81000; 82274; 82962; 83605; 83735; 83880; 84100; 84132; 84484; 85007; 85014; 85018; 85025; 85027; 85610; 85730; 86141; 86850; 86900; 86901; 86920; 87040; 87077; 87081; 87088; 87186; 93005; 93041; 94640; 94760; 96361; 96365; 99283

== ENCOUNTER 2019-03-31 22:07 | Emergency (ER) | payer MEDICAID ==
[~2019-03-31] VITALS: Ht 160 cm; Wt 61.8 kg
[~2019-03-31 22:07] MED LIST changes: +CITA20TA9 PO; +FAMO20TA3 PO; +IPRA3AMP31 NEB; +MICO90PO TP; +MONT10TA21 PO
[2019-03-31] MEDS ORDERED: methylPREDNISolone 125 MG (Solu-MEDROL) VIAL IV STA (22:28)
[2019-03-31] MEDS ORDERED: RT-ALBUTEROL/IPRATROPIUM 3 ML (DUONEB) VIAL INH ONE ×2 (22:30→23:30)
[2019-03-31] MEDS ORDERED: DEXAMETHASONE 4 MG/ML SDV (DECADRON) IH ONE ×2 (22:30→23:30)
[2019-03-31 22:31] LABS: BASOPHILS % (AUTO) 0 % (0-10); EOSINOPHILS # (AUTO) 0.1 10^3/uL (0.0-0.3); EOSINOPHILS % (AUTO) 1 % (0-10); HEMATOCRIT 28 % (40-54); HEMOGLOBIN 9.1 G/DL (13.3-17.7); LYMPHOCYTES # (AUTO) 2.9 X 10^3 (1.0-4.0); LYMPHOCYTES % (AUTO) 27 % (12-44); MEAN CORPUSCULAR HEMOGLOBIN 28 PG (25-34); MEAN CORPUSCULAR HGB CONC 32 G/DL (32-36); MEAN CORPUSCULAR VOLUME 86 FL (80-99); MEAN PLATELET VOLUME 7.7 FL (7.4-10.4); MONOCYTES # (AUTO) 1.2 X 10^3 (0.0-1.0); MONOCYTES % (AUTO) 12 % (0-12); NEUTROPHILS # (AUTO) 6.4 X 10^3 (1.8-7.8); NEUTROPHILS % (AUTO) 61 % (42-75); PLATELET COUNT 348 10^3/uL (130-400); RED CELL DISTRIBUTION WIDTH 16.2 % (10.0-14.5); WHITE BLOOD COUNT 10.6 10^3/uL (4.3-11.0)
--- NOTE | 2019-03-31 22:35 | ED Respiratory ---
General Stated Complaint: SOA Source: patient, long term records, old records History of Present Illness Date Seen by Provider: Mar 31, 2019 Time Seen by Provider: 22:10 Initial Comments PT ARRIVES VIA EMS FROM [facility] C/O SHORTNESS OF BREATH SINCE Tuesday03/27/19 HAS HAD MILD NONPRODUCTIVE COUGH PT STATES SYMPTOMS ARE NO DIFFERENT TONIGHT, BUT STATES "THE NURSE THOUGHT I NEEDED TO COME OUT HERE" NO CHEST PAIN NO FEVER PT STATES NO TREATMENT GIVEN BY [facility] STAFF PT DOES NOT WEAR HOME O2 NO TREATMENT BY EMS, PER PT O2 SAT 94-96% ON 3L/NC ON ARRIVAL Allergies and Home Medications Allergies Coded Allergies: No Known Drug Allergies (Unverified , 02/15/19) Home Medications Alprazolam 0.25 Mg Tablet, 0.25 MG PO QID, (Reported) Baclofen 10 Mg Tablet, 5 MG PO TID, (Reported) Citalopram Hydrobromide 20 Mg Tablet, 20 MG PO DAILY Prescribed by: PRANAY WADE on 03/20/19 1227 Enoxaparin Sodium 40 Mg/0.4 Ml Syringe, 40 MG SC 1400, (Reported) FILLED #12 02-07-19 AND THEN THE REST ON 02-20-19 FOR #18 SYRINGES Famotidine 20 Mg Tablet, 20 MG PO BID, (Reported) Hydrocodone/Acetaminophen 1 Each Tablet, 1 TAB PO Q6H PRN for PAIN-MODERATE, (Reported) Insulin Detemir 100 Unit/1 Ml Insuln.pen, 15 UNIT SQ DAILY, (Reported) LAST FILLED 02-06-19 Insulin Detemir 100 Unit/1 Ml Insuln.pen, 20 UNIT SQ HS, (Reported) LAST FILLED 02-06-19 Ipratropium/Albuterol Sulfate 3 Ml Ampul.neb, 3 ML NEB BID PRN for SHORTNESS OF BREATH, (Reported) Loratadine 10 Mg Tablet, 10 MG PO DAILY, (Reported) LAST FILLED #30 02-06-19 Melatonin 5 Mg Tablet, 10 MG PO HS, (Reported) Miconazole Nitrate 90 Gm Powder, TP BID, (Reported) LAST FILLED 01-29-19 Midodrine HCl 10 Mg Tablet, 10 MG PO TID, (Reported) LAST FILLED #90 02-06-19 Montelukast Sodium 10 Mg Tablet, 10 MG PO DAILY, (Reported) LAST FILLED #30 02-06-19 Quetiapine Fumarate 50 Mg Tablet, 50 MG PO HS, (Reported) Sennosides 8.6 Mg Tablet, 8.6 MG PO BID PRN for CONSTIPATION-5TH LINE, (Reported) Sodium Hypochlorite 473 Ml Solution, 0 ML TOP DAILY Prescribed by: MARGUERITE GAN on 02/05/192036 Past Oxpkkta-Yujaes-Irktqf Hx Patient Social History Alcohol Beverage of Choice: Wine Drug of Choice: THC, + IV METHAMPHETAMINES, PCP, OPIATES, BENZO'S Type Used: Cigarettes 2nd Hand Smoke Exposure: Yes Recent Hopitalizations: Yes (SPINAL CORD INJURY AND AT [place] 7 RECENT HOSPITALIZATION FOR SEPSIS) Immunizations Up To Date Tetanus Booster (TDap): Unknown PED Vaccines UTD: Yes Date of Pneumonia Vaccine: Sep 04, 2015 Date of Influenza Vaccine: Apr 05, 2017 Seasonal Allergies Seasonal Allergies: Yes (TALL GRASS, ANIMALS) Past Medical History Surgeries: Yes Abdominal, Bladder Surgery, Orthopedic, Tracheostomy Respiratory: Yes COPD Currently Using CPAP: No Currently Using BIPAP: No Cardiac: No Neurological: Yes Neuropathy, Spinal Cord Injury, Traumatic Brain Injury Reproductive Disorders: No Sexually Transmitted Disease: No Genitourinary: Yes Bladder Infection, UTI-Chronic Gastrointestinal: Yes Gastroesophageal Reflux Musculoskeletal: Yes Chronic Back Pain, Fractures Endocrine: Yes (NON-COMPLIANCE) Diabetes, Insulin dep HEENT: Yes Cataract Cancer: No Psychosocial: Yes (POLYSUBSTANCE ABUSE) Sleep Difficulties, Anxiety Integumentary: Yes (SACRAL DECUBITUS ULCER) Blood Disorders: No Adverse Reaction/Blood Tranf: No Family Medical History Abdominal aortic aneurysm 03 MOTHER (DOESN'T KNOW MOM'S MEDICAL HISTORY) Cancer 03 FATHER (TESTICULAR) Family history: Diabetes mellitus 03 FATHER Family history: Hypertension 03 FATHER No Family History of: Family history: Alzheimer's disease Family history: Arthritis Family history: Breast disease Family history: Cardiovascular disease Family history: Gastrointestinal disease Family history: Thyroid disorder Hereditary disease History of - respiratory disease Myocardial infarction Parkinson's disease Seizure disorder Stroke AAA, Cancer, CAD Over 55 Years Old, Diabetes, Hypertension Physical Exam Vital Signs - First Documented 03/31/19 22:08 Temp 37.3 Pulse 98 Resp 20 B/P (MAP) 134/80 (98) Pulse Ox 97 O2 Delivery Nasal Cannula O2 Flow Rate 2.00 Capillary Refill : Height: 5'3.00" Weight: 150lbs. 0.3oz. 68.344902pg; 22.17 BMI Method:Stated Focused Exam Lactate Level 03/31/19 22:30: Lactic Acid Level 1.57 Lactic Acid Level Laboratory Tests Test 03/31/19 22:30 Lactic Acid Level 1.57 MMOL/L (0.50-2.00) Procedures/Interventions Date of ETT Placement: Dec 07, 2018 Progress/Results/Core Measures Suspected Sepsis SIRS Temperature: Pulse: Respiratory Rate: Laboratory Tests 03/31/19 22:00: White Blood Count 10.6 Blood Pressure / Mean: 03/31/19 22:30: Lactic Acid Level 1.57 Laboratory Tests 03/31/19 22:00: Creatinine 0.72, INR Comment 1.1, Platelet Count 348, Total Bilirubin 0.2 Results/Orders Lab Results Laboratory Tests Test 03/31/19 22:00 03/31/19 22:30 03/31/19 22:59 Range/Units White Blood Count 10.6 4.3-11.0 10^3/uL Red Blood Count 3.29 L 4.35-5.85 10^6/uL Hemoglobin 9.1 L 13.3-17.7 G/DL Hematocrit 28 L 40-54 % Mean Corpuscular Volume 86 80-99 FL Mean Corpuscular Hemoglobin 28 25-34 PG Mean Corpuscular Hemoglobin Concent 32 32-36 G/DL Red Cell Distribution Width 16.2 H 10.0-14.5 % Platelet Count 348 130-400 10^3/uL Mean Platelet Volume 7.7 7.4-10.4 FL Neutrophils (%) (Auto) 61 42-75 % Lymphocytes (%) (Auto) 27 12-44 % Monocytes (%) (Auto) 12 0-12 % Eosinophils (%) (Auto) 1 0-10 % Basophils (%) (Auto) 0 0-10 % Neutrophils # (Auto) 6.4 1.8-7.8 X 10^3 Lymphocytes # (Auto) 2.9 1.0-4.0 X 10^3 Monocytes # (Auto) 1.2 H 0.0-1.0 X 10^3 Eosinophils # (Auto) 0.1 0.0-0.3 10^3/uL Basophils # (Auto) 0.0 0.0-0.1 10^3/uL Prothrombin Time 14.2 12.2-14.7 SEC INR Comment 1.1 0.8-1.4 Activated Partial Thromboplast Time 43 H 24-35 SEC Sodium Level 131 L 135-145 MMOL/L Potassium Level 4.4 3.6-5.0 MMOL/L Chloride Level 99 98-107 MMOL/L Carbon Dioxide Level 22 21-32 MMOL/L Anion Gap 10 5-14 MMOL/L Blood Urea Nitrogen 12 7-18 MG/DL Creatinine 0.72 0.60-1.30 MG/DL Estimat Glomerular Filtration Rate > 60 BUN/Creatinine Ratio 17 Glucose Level 170 H 70-105 MG/DL Calcium Level 9.1 8.5-10.1 MG/DL Corrected Calcium 9.7 8.5-10.1 MG/DL Magnesium Level 1.9 1.6-2.4 MG/DL Total Bilirubin 0.2 0.1-1.0 MG/DL Aspartate Amino Transf (AST/SGOT) 15 5-34 U/L Alanine Aminotransferase (ALT/SGPT) 21 0-55 U/L Alkaline Phosphatase 111 40-136 U/L Troponin I < 0.028 <0.028 NG/ML B-Type Natriuretic Peptide 50.4 <100.0 PG/ML Total Protein 7.4 6.4-8.2 GM/DL Albumin 3.2 3.2-4.5 GM/DL Lactic Acid Level 1.57 0.50-2.00 MMOL/L Urine Color YELLOW Urine Clarity CLEAR Urine pH 7 5-9 Urine Specific [place] 1.010 L 1.016-1.022 Urine Protein NEGATIVE NEGATIVE Urine Glucose (UA) NEGATIVE NEGATIVE Urine Ketones NEGATIVE NEGATIVE Urine Nitrite NEGATIVE NEGATIVE Urine Bilirubin NEGATIVE NEGATIVE Urine Urobilinogen NORMAL NORMAL MG/DL Urine Leukocyte Esterase 3+ H NEGATIVE Urine RBC (Auto) NEGATIVE NEGATIVE Urine RBC NONE /HPF Urine WBC 25-50 H /HPF Urine Crystals NONE /LPF Urine Bacteria LARGE H /HPF Urine Casts NONE /LPF Urine Mucus NEGATIVE /LPF Urine Culture Indicated YES Urine Opiates Screen POSITIVE H NEGATIVE Urine Oxycodone Screen NEGATIVE NEGATIVE Urine Methadone Screen NEGATIVE NEGATIVE Urine Propoxyphene Screen NEGATIVE NEGATIVE Urine Barbiturates Screen NEGATIVE NEGATIVE Ur Tricyclic Antidepressants Screen NEGATIVE NEGATIVE Urine Phencyclidine Screen NEGATIVE NEGATIVE Urine Amphetamines Screen NEGATIVE NEGATIVE Urine Methamphetamines Screen NEGATIVE NEGATIVE Urine Benzodiazepines Screen POSITIVE H NEGATIVE Urine Cocaine Screen NEGATIVE NEGATIVE Urine Cannabinoids Screen NEGATIVE NEGATIVE Micro Results Microbiology 03/31/19 Influenza Types A,B Antigen (CITLALY) - Final, Complete My Orders Orders - ARLIN DOWD DO Ed Iv/Invasive Line Start (03/31/19 22:13) Ekg Tracing (03/31/19 22:13) Monitor-Rhythm Ecg Trace Only (03/31/19 22:13) Chest 1 View, Ap/Pa Only (03/31/19 22:13) BNP (03/31/19 22:13) Cbc With Automated Diff (03/31/19 22:13) Comprehensive Metabolic Panel (03/31/19 22:13) Lactic Acid Analyzer (03/31/19 22:13) Protime With Inr (03/31/19:13) Partial Thromboplastin Time (03/31/19:13) Blood Culture (03/31/19 22:13) Influenza A And B Antigens (03/31/19 22:13) Troponin I (03/31/19 22:13) Albuterol/Ipra Inhalation Soln (Duoneb I (03/31/19 22:30) Dexamethasone Injection (Decadron Inject (03/31/19 22:30) Rt Request For Service (03/31/19 22:28) Methylprednisolone Sod Succ (Solu-Medrol (03/31/19 22:28) Svn Small Volume Nebulizer (03/31/19 22:28) Drug Screen Stat (Urine) (03/31/19 22:45) Magnesium (03/31/19 22:45) Vancomycin Injection (Vancomycin Injecti (03/31/19 23:00) Piperacillin Sodium/Tazobactam (Zosyn Vi (03/31/19 23:00) Ua Culture If Indicated (03/31/19 23:06) Albuterol/Ipra Inhalation Soln (Duoneb I (03/31/19 23:30) Dexamethasone Injection (Decadron Inject (03/31/19 23:30) Svn Small Volume Nebulizer (03/31/19 23:17) Urine Culture (03/31/19 22:59) Medications Given in ED Current Medications Medications Dose Ordered Sig/Leandra Route Start Time Stop Time Status Last Admin Dose Admin Albuterol/ Ipratropium 3 ml ONCE ONCE INH 03/31/19 22:30 03/31/19 22:31 DC 03/31/19 22:37 3 ML Dexamethasone Sodium Phosphate 20 mg ONCE ONCE IH 03/31/19 22:30 03/31/19 22:31 DC 03/31/19 22:38 20 MG Piperacillin Sod/ Tazobactam Sod 4.5 gm/Sodium Chloride 100 ml @ 200 mls/hr ONCE ONCE IV 03/31/19 23:00 03/31/19 23:29 DC 03/31/19 23:09 200 MLS/HR Vital Signs/I&O 03/31/19 03/31/19 22:08 22:25 Temp 37.3 Pulse 98 Resp 20 B/P (MAP) 134/80 (98) Pulse Ox 97 96 O2 Delivery Nasal Cannula Nasal Cannula O2 Flow Rate 2.00 2.00 Capillary Refill : Progress Note : Progress Note MUCH IMPROVEMENT IN LUNG SOUNDS AFTER NEB TREATMENT, AND PT STATES HE FEELS BETTER. BUT STILL WITH MILD RESIDUAL COARSE WHEEZING ADDITIONAL NEB TREATMENT ORDERED, THEN PT REFUSED PT HAD NO COMPLAINTS FOR REMAINDER OF ER STAY. STATES HE WAS ALREADY FEELING BETTER SHORTLY AFTER HE LEFT THE [facility]. Departure Impression Primary Impression: BRONCHITIS, POSSIBLE RLL PNEUMONIA Additional Impression: UTI (urinary tract infection) Disposition: 03 XFER SNF Condition: Improved Departure-Patient Inst. Referrals: [facility] (PCP/Family) Primary Care Physician Patient Instructions: Pneumonia, Adult (DC), Acute Bronchitis, Adult (DC), Urinary Tract Infection, Adult (DC) Add. Discharge Instructions: CONTINUE YOUR CURRENT MEDICATIONS PRESCRIBED NEBULIZER TREATMENTS WITH DUONEB EVERY 4 HOURS NEEDED OXYGEN AT 2-4 L/ NC NEEDED FOR SHORTNESS OF BREATH OR O2 SATS LESS THAN 94% FOLLOW UP WITH YOUR DR IN 2-3 DAYS FOR FURTHER CARE Scripts Budesonide (Pulmicort) 1 Mg/2 Ml Ampul.neb 1 MG IH BID, #1 EA Prov: ARLIN DOWD DO 03/31/19 Methylprednisolone (Medrol) 4 Mg Tab.ds.pk 4 MG PO UD, #1 PKG Prov: ARLIN DOWD DO 03/31/19 Levofloxacin (Levaquin) 500 Mg Tablet 500 MG PO DAILY for INFECTION, #10 TAB Prov: ARLIN DOWD DO 03/31/19 ARLIN DOWD DO Mar 31, 2019 22:35
[2019-03-31 22:39] LABS: INR 1.1 (0.8-1.4); PROTHROMBIN TIME PATIENT 14.2 SEC (12.2-14.7)
[2019-03-31 22:48] LABS: ALANINE AMINOTRANSFERASE 21 U/L (0-55); ALBUMIN 3.2 GM/DL (3.2-4.5); ALKALINE PHOSPHATASE 111 U/L (40-136); BILIRUBIN,TOTAL 0.2 MG/DL (0.1-1.0); BUN/CREATININE RATIO 17; CALCIUM 9.1 MG/DL (8.5-10.1); CARBON DIOXIDE 22 MMOL/L (21-32); CHLORIDE 99 MMOL/L (98-107); CREATININE SERUM 0.72 MG/DL (0.60-1.30); GFR ESTIMATED > 60; GLUCOSE 170 MG/DL (70-105); POTASSIUM 4.4 MMOL/L (3.6-5.0); SODIUM 131 MMOL/L (135-145); TOTAL PROTEIN 7.4 GM/DL (6.4-8.2)
--- NOTE | 2019-03-31 22:57 | NUR ---
Patient has indwelling goodman catheter present from nursing facility.
[2019-03-31] MEDS ORDERED: PIPERACILLIN SODIUM/TAZOBACTAM 4.5 GM in NS (IVPB) 100 ML IV ONE (23:00)
[2019-03-31] MEDS ORDERED: VANCOMYCIN INJECTION 1,000 MG in NS (IVPB) 250 ML IV ONE (23:00)
[2019-03-31 23:14] LABS: AMPHETAMINE SCREEN, URINE NEGATIVE (NEGATIVE); BARBITURATE SCREEN URINE NEGATIVE (NEGATIVE); BENZODIAZEPINES SCREEN URINE POSITIVE (NEGATIVE); BILIRUBIN,URINE NEGATIVE (NEGATIVE); CANNABINOID SCREEN, URINE NEGATIVE (NEGATIVE); CLARITY,URINE CLEAR; COCAINE SCREEN URINE NEGATIVE (NEGATIVE); COLOR,URINE YELLOW; GLUCOSE, URINE (UA) NEGATIVE (NEGATIVE); KETONES,URINE NEGATIVE (NEGATIVE); LEUKOCYTE ESTERASE ,URINE 3+ (NEGATIVE); METHADONE STAT NEGATIVE (NEGATIVE); METHAMPHETAMINE SCREEN URINE S NEGATIVE (NEGATIVE); NITRITE,URINE NEGATIVE (NEGATIVE); OPIATE SCREEN URINE POSITIVE (NEGATIVE); OXYCODONE STAT NEGATIVE (NEGATIVE); PH,URINE 7 (5-9); PROPOXYPHENE STAT NEGATIVE (NEGATIVE); PROTEIN,URINE NEGATIVE (NEGATIVE); TRICYCLIC ANTIDEPRESSANTS SCRE NEGATIVE (NEGATIVE); UROBILINOGEN,URINE NORMAL (NORMAL)
[2019-03-31 23:22] LABS: BACTERIA,URINE LARGE /HPF; WBC,URINE 25-50 /HPF
--- NOTE | 2019-03-31 23:33 | NUR ---
pt refused 2nd breathing tx trhat was ordered, reported to and rn.
[2019-03-31] MEDS ORDERED: LEVO500T2 PO (23:41)
[2019-03-31] MEDS ORDERED: BUDE1AMP IH (23:42)
[2019-03-31] MEDS ORDERED: METH4TAB PO (23:42)
--- NOTE | 2019-04-01 00:03 | NUR ---
Patient sleeping. No signs of distress present.
--- NOTE | 2019-04-01 00:45 | NUR ---
Yudi BONILLA spoke with Constance at [facility]. She states they do not have a ride for the patient. Phone number given to Constance for [facility] shift captain so they can call and arrange transport.
--- NOTE | 2019-04-01 01:08 | NUR ---
Constance from [facility] [place] and re[facility] called and states they found patient a ride back to the facility. They will be here shortly.
--- NOTE | 2019-04-01 01:35 | NUR ---
[facility] arrived to transport the patient back to their facility. Patient lifted from hospital bed to wheelchair by two RN's.
[2019-04-01 01:36] VITALS: BP 102/66
--- NOTE | 2019-04-01 07:04 | Diagnostic Imaging Report ---
INDICATION: Shortness of breath. TIME OF EXAM: 10:31 PM Correlation is made with prior chest from 03/19/2019. FINDINGS: Right IJ line has been removed. Malleable plates and screws transfix multiple right-sided ribs. The heart size is stable. Lungs are clear. No infiltrates are seen. There is no effusion or pneumothorax. IMPRESSION: No acute cardiopulmonary process is detected. Dictated by: Dictated on workstation # [id number]
== END 2019-04-01 01:38 ==
LOC: EDUNIT# 22:07 → ER 22:09
DX: J40 Bronchitis, not specified as acute or chronic (principal); N39.0 Urinary tract infection, site not specified; E11.40 Type 2 diabetes mellitus with diabetic neuropathy, unspecified; J44.9 Chronic obstructive pulmonary disease, unspecified; F41.9 Anxiety disorder, unspecified; K21.9 Gastro-esophageal reflux disease without esophagitis; Z87.820 Personal history of traumatic brain injury; Z87.440 Personal history of urinary (tract) infections; Z79.4 Long term (current) use of insulin; Z77.22 Contact with and (suspected) exposure to environmental tobacco smoke (acute) (chronic); Z93.0 Tracheostomy status; Z91.19 Patient's noncompliance with other medical treatment and regimen; Z82.49 Family history of ischemic heart disease and other diseases of the circulatory system
CPT/HCPCS: 36415; 71045; 80053; 80306; 81000; 83605; 83735; 83880; 84484; 85025; 85610; 85730; 87040; 87077; 87088; 87186; 87804; 93005; 93041; 94640; 96365; 96367; 96375

== ENCOUNTER 2019-04-08 21:42 | Emergency (ER) | payer MEDICAID ==
[~2019-04-08] VITALS: Ht 160 cm; Wt 61.8 kg
[~2019-04-08 21:42] MED LIST changes: +BUDE1AMP IH; +LEVO500T2 PO; +METH4TAB PO
[2019-04-08] MEDS ORDERED: RT-ALBUTEROL/IPRATROPIUM 3 ML (DUONEB) VIAL ONE (21:45)
[2019-04-08] MEDS ORDERED: NS IV 1000 ML 1,000 ML IV SCH (21:48)
[2019-04-08] MEDS ORDERED: methylPREDNISolone 125 MG (Solu-MEDROL) VIAL IV STA (21:56)
[2019-04-08] MEDS ORDERED: ONDANSETRON 4 MG/2 ML (SDV) Z0FRAN IV PRN (22:00)
[2019-04-08] MEDS ORDERED: ACETAMINOPHEN 500 MG TAB (TYLENOL) PO PRN (22:00)
[2019-04-08] MEDS ORDERED: RT-ALBUTEROL/IPRATROPIUM 3 ML (DUONEB) VIAL INH ONE (22:00)
[2019-04-08] MEDS ORDERED: PIPERACILLIN SODIUM/TAZOBACTAM 4.5 GM in NS (IVPB) 100 ML IV ONE (22:00)
[2019-04-08] MEDS ORDERED: VANCOMYCIN INJECTION 1,000 MG in NS (IVPB) 250 ML IV ONE (22:00)
[2019-04-08 22:20] LABS: BASOPHILS % (AUTO) 0 % (0-10); EOSINOPHILS % (AUTO) 0 % (0-10); LYMPHOCYTES # (AUTO) 1.5 X 10^3 (1.0-4.0); LYMPHOCYTES % (AUTO) 12 % (12-44); MEAN CORPUSCULAR HEMOGLOBIN 28 PG (25-34); MEAN CORPUSCULAR HGB CONC 32 G/DL (32-36); MEAN CORPUSCULAR VOLUME 86 FL (80-99); MEAN PLATELET VOLUME 7.4 FL (7.4-10.4); MONOCYTES # (AUTO) 1.5 X 10^3 (0.0-1.0); MONOCYTES % (AUTO) 12 % (0-12); NEUTROPHILS # (AUTO) 9.8 X 10^3 (1.8-7.8); NEUTROPHILS % (AUTO) 76 % (42-75); PLATELET COUNT 267 10^3/uL (130-400); WHITE BLOOD COUNT 12.8 10^3/uL (4.3-11.0)
[2019-04-08 22:23] LABS: HEMOGLOBIN 5.3 G/DL (13.3-17.7)
[2019-04-08 22:24] LABS: HEMATOCRIT 17 % (40-54)
[2019-04-08 22:33] LABS: INR 1.5 (0.8-1.4); PROTHROMBIN TIME PATIENT 18.6 SEC (12.2-14.7)
--- NOTE | 2019-04-08 22:35 | NUR ---
CALL MADE TO PATIENT SPOUSE PER PATIENT REQUEST. LEFT MESSAGE. LATER IT IS REPORTED MEHNAZ SPOKE TO PATIENT SPOUSE AND INFORMED HER HE WAS AT THE ER.
[2019-04-08 22:40] LABS: ALANINE AMINOTRANSFERASE 15 U/L (0-55); ALBUMIN 1.6 GM/DL (3.2-4.5); ALKALINE PHOSPHATASE 54 U/L (40-136); BILIRUBIN,TOTAL 0.1 MG/DL (0.1-1.0); BUN/CREATININE RATIO 36; CHLORIDE 121 MMOL/L (98-107); CREATININE SERUM 0.61 MG/DL (0.60-1.30); GFR ESTIMATED > 60; GLUCOSE 159 MG/DL (70-105); SODIUM 136 MMOL/L (135-145); TOTAL PROTEIN 3.3 GM/DL (6.4-8.2)
[2019-04-08 22:54] LABS: POTASSIUM 2.4 MMOL/L (3.6-5.0)
[2019-04-08 22:55] LABS: CALCIUM 4.2 MG/DL (8.5-10.1); CARBON DIOXIDE 9 MMOL/L (21-32)
--- NOTE | 2019-04-08 23:34 | NUR ---
multiple attempts made tto persuade patient to let us draw blood Addendum: 04/08/19 at 2337 by [id number] do xrays, ekg and provide continuing care. patient states he wants to sign ama papers and just go back to the [facility].
[2019-04-08 23:50] VITALS: BP 98/65
--- NOTE | 2019-04-09 00:08 | ED General ---
General Chief Complaint: General Problems/Pain Stated Complaint: SOA Source of Information: Patient, Detention Records, Old Records History of Present Illness Date Seen by Provider: Apr 08, 2019 Time Seen by Provider: 21:41 Initial Comments [facility]. PT WITH WHEEZING, COUGHING AND SHORTNESS OF BREATH TEMP 100.9, BP 59/37, HR 120'S, RESP RATE IN 20'S, GLUCOSE 244 BY EMS. [facility] STAFF REPORT THAT PT HAS BEEN REFUSING ALL CARE FOR THE LAST COUPLE OF DAYS--HAS REFUSED ALL MEDICATIONS EXCEPT PAIN MEDICATION AND XANAX. PT HAS ALSO BEEN REFUSING DRESSING CHANGES ON HIS LARGE DECUBITUS ULCER ON SACRUM/ COCCYX, BUT DID ALLOW NURSE TO CHANGE THE DRESSING JUST PRIOR TO ARRIVAL . [facility] STAFF REPORT THAT WOUND IS LOOKING AND SMELLING MUCH WORSE. PT HAS QUADRIPLEGIA FROM A C3 FRACTURE, OCCURRED IN NOVEMBER OF THIS YEAR, AFTER HE FELL 3 STORIES OFF A LADDER PT HAS HAD A MULTITUDE OF VISITS TO THIS ER FOR VARIOUS COMPLAINTS--MANY TIMES LEAVING AGAINST MEDICAL ADVICE. PT HAD BEEN LIVING AT HOME WITH HIS , BUT WAS RECENTLY PLACED IN [facility] ON 03/20/19. PT LAST ADMITTED 03/14-03/20/19 FOR SEPTIC SHOCK. HE WAS PLACED IN [facility] AT DISMISSAL FROM THAT HOSPITAL STAY PT WAS SEEN HERE 03/31/19 FOR BRONCHITIS, POSSIBLE PNEUMONIA. WAS GIVEN RX'S FOR LEVAQUIN, MEDROL DOSE PACK AND PULMICORT NEBULIZER SOLUTION. PT IS ALREADY ON DUO NEB TREATMENTS. PCP: [facility], DR. DELACRUZ Allergies and Home Medications Allergies Coded Allergies: No Known Drug Allergies (Unverified , 02/15/19) Home Medications Alprazolam 0.25 Mg Tablet, 0.25 MG PO QID, (Reported) Baclofen 10 Mg Tablet, 5 MG PO TID, (Reported) Budesonide 1 Mg/2 Ml Ampul.neb, 1 MG IH BID Prescribed by: ARLIN DOWD on 03/31/19 9922 Citalopram Hydrobromide 20 Mg Tablet, 20 MG PO DAILY Prescribed by: PRANAY WADE on 03/20/19 1227 Enoxaparin Sodium 40 Mg/0.4 Ml Syringe, 40 MG SC 1400, (Reported) FILLED #12 02-07-19 AND THEN THE REST ON 02-20-19 FOR #18 SYRINGES Famotidine 20 Mg Tablet, 20 MG PO BID, (Reported) Hydrocodone/Acetaminophen 1 Each Tablet, 1 TAB PO Q6H PRN for PAIN-MODERATE, (Reported) Insulin Detemir 100 Unit/1 Ml Insuln.pen, 15 UNIT SQ DAILY, (Reported) LAST FILLED 02-06-19 Insulin Detemir 100 Unit/1 Ml Insuln.pen, 20 UNIT SQ HS, (Reported) LAST FILLED 02-06-19 Ipratropium/Albuterol Sulfate 3 Ml Ampul.neb, 3 ML NEB BID PRN for SHORTNESS OF BREATH, (Reported) Levofloxacin 500 Mg Tablet, 500 MG PO DAILY Prescribed by: ARLIN DOWD on 03/31/192340 Loratadine 10 Mg Tablet, 10 MG PO DAILY, (Reported) LAST FILLED #30 02-06-19 Melatonin 5 Mg Tablet, 10 MG PO HS, (Reported) Methylprednisolone 4 Mg Tab.ds.pk, 4 MG PO UD Prescribed by: ARLIN DOWD on 03/31/192341 Miconazole Nitrate 90 Gm Powder, TP BID, (Reported) LAST FILLED 01-29-19 Midodrine HCl 10 Mg Tablet, 10 MG PO TID, (Reported) LAST FILLED #90 02-06-19 Montelukast Sodium 10 Mg Tablet, 10 MG PO DAILY, (Reported) LAST FILLED #30 02-06-19 Quetiapine Fumarate 50 Mg Tablet, 50 MG PO HS, (Reported) Sennosides 8.6 Mg Tablet, 8.6 MG PO BID PRN for CONSTIPATION-5TH LINE, (Reported) Sodium Hypochlorite 473 Ml Solution, 0 ML TOP DAILY Prescribed by: MARGUERITE GAN on 02/05/192036 Patient Home Medication List Home Medication List Reviewed: Yes Past Gymqkeq-Skfzqt-Udfovt Hx Patient Social History Alcohol Beverage of Choice: Wine Drug of Choice: THC, + IV METHAMPHETAMINES, PCP, OPIATES, BENZO'S Type Used: Cigarettes 2nd Hand Smoke Exposure: Yes Recent Foreign Travel: No Contact w/Someone Who Travel: No Recent Hopitalizations: Yes (SPINAL CORD INJURY AND AT [place] 7-19 RECENT HOSPITALIZATION FOR SEPSIS) Immunizations Up To Date Tetanus Booster (TDap): Unknown PED Vaccines UTD: Yes Date of Pneumonia Vaccine: Sep 04, 2015 Date of Influenza Vaccine: Apr 05, 2017 Seasonal Allergies Seasonal Allergies: Yes (TALL GRASS, ANIMALS) Past Medical History Surgeries: Yes Abdominal, Bladder Surgery, Orthopedic, Tracheostomy Respiratory: Yes Pneumonia, COPD Currently Using CPAP: No Currently Using BIPAP: No Cardiac: No Neurological: Yes Neuropathy, Paralysis, Spinal Cord Injury, Traumatic Brain Injury Reproductive Disorders: No Sexually Transmitted Disease: No Genitourinary: Yes (indwelling goodman catheter) Bladder Infection, UTI-Chronic Gastrointestinal: Yes Gastroesophageal Reflux Musculoskeletal: Yes Chronic Back Pain, Fractures Endocrine: Yes (NON-COMPLIANCE) Diabetes, Insulin dep HEENT: Yes Cataract Cancer: No Psychosocial: Yes (POLYSUBSTANCE ABUSE) Sleep Difficulties, Anxiety Integumentary: Yes (SACRAL DECUBITUS ULCER) Blood Disorders: No Adverse Reaction/Blood Tranf: No Family Medical History Abdominal aortic aneurysm 03 MOTHER (DOESN'T KNOW MOM'S MEDICAL HISTORY) Cancer 03 FATHER (TESTICULAR) Family history: Diabetes mellitus 03 FATHER Family history: Hypertension 03 FATHER No Family History of: Family history: Alzheimer's disease Family history: Arthritis Family history: Breast disease Family history: Cardiovascular disease Family history: Gastrointestinal disease Family history: Thyroid disorder Hereditary disease History of - respiratory disease Myocardial infarction Parkinson's disease Seizure disorder Stroke AAA, Cancer, CAD Over 55 Years Old, Diabetes, Hypertension Physical Exam Vital Signs Vital Signs - First Documented 04/08/19 21:46 Temp 36.7 Pulse 105 Resp 23 B/P (MAP) 90/58 (69) Pulse Ox 99 O2 Delivery Nasal Cannula O2 Flow Rate 4.00 Capillary Refill : Height, Weight, BMI Height: 5'3.00" Weight: 150lbs. 0.3oz. 68.699707wc; 24.00 BMI Method:Stated Focused Exam Lactate Level 04/08/19 22:05: Lactic Acid Level 1.09 Lactic Acid Level Procedures/Interventions Date of ETT Placement: Dec 07, 2018 Progress/Results/Core Measures Suspected Sepsis SIRS Temperature: Pulse: Respiratory Rate: Laboratory Tests 04/08/19 22:05: White Blood Count 12.8H Blood Pressure / Mean: 04/08/19 22:05: Lactic Acid Level 1.09 Laboratory Tests 04/08/19 22:05: Creatinine 0.61, INR Comment 1.5H, Platelet Count 267, Total Bilirubin 0.1 Results/Orders Lab Results Laboratory Tests Test 04/08/19 22:05 Range/Units White Blood Count 12.8 H 4.3-11.0 10^3/uL Red Blood Count 1.91 L 4.35-5.85 10^6/uL Hemoglobin 5.3 *L 13.3-17.7 G/DL Hematocrit 17 *L 40-54 % Mean Corpuscular Volume 86 80-99 FL Mean Corpuscular Hemoglobin 28 25-34 PG Mean Corpuscular Hemoglobin Concent 32 32-36 G/DL Red Cell Distribution Width 17.0 H 10.0-14.5 % Platelet Count 267 130-400 10^3/uL Mean Platelet Volume 7.4 7.4-10.4 FL Neutrophils (%) (Auto) 76 H 42-75 % Lymphocytes (%) (Auto) 12 12-44 % Monocytes (%) (Auto) 12 0-12 % Eosinophils (%) (Auto) 0 0-10 % Basophils (%) (Auto) 0 0-10 % Neutrophils # (Auto) 9.8 H 1.8-7.8 X 10^3 Lymphocytes # (Auto) 1.5 1.0-4.0 X 10^3 Monocytes # (Auto) 1.5 H 0.0-1.0 X 10^3 Eosinophils # (Auto) 0.0 0.0-0.3 10^3/uL Basophils # (Auto) 0.0 0.0-0.1 10^3/uL Prothrombin Time 18.6 H 12.2-14.7 SEC INR Comment 1.5 H 0.8-1.4 Activated Partial Thromboplast Time 40 H 24-35 SEC Sodium Level 136 135-145 MMOL/L Potassium Level 2.4 *L 3.6-5.0 MMOL/L Chloride Level 121 H 98-107 MMOL/L Carbon Dioxide Level 9 *L 21-32 MMOL/L Anion Gap 6 5-14 MMOL/L Blood Urea Nitrogen 22 H 7-18 MG/DL Creatinine 0.61 0.60-1.30 MG/DL Estimat Glomerular Filtration Rate > 60 BUN/Creatinine Ratio 36 Glucose Level 159 H 70-105 MG/DL Lactic Acid Level 1.09 0.50-2.00 MMOL/L Calcium Level 4.2 *L 8.5-10.1 MG/DL Corrected Calcium 6.1 L 8.5-10.1 MG/DL Total Bilirubin 0.1 0.1-1.0 MG/DL Aspartate Amino Transf (AST/SGOT) 12 5-34 U/L Alanine Aminotransferase (ALT/SGPT) 15 0-55 U/L Alkaline Phosphatase 54 40-136 U/L Troponin I 0.109 H <0.028 NG/ML Total Protein 3.3 L 6.4-8.2 GM/DL Albumin 1.6 L 3.2-4.5 GM/DL Serum Alcohol < 10 <10 MG/DL My Orders Orders - ARLIN DOWD DO Albuterol/Ipra Inhalation Soln (Duoneb I (04/08/19 21:45) Cbc With Automated Diff (04/08/19:48) Comprehensive Metabolic Panel (04/08/19:48) Blood Culture (04/08/19:48) Sputum Culture (04/08/19:48) Protime With Inr (04/08/19:48) Partial Thromboplastin Time (04/08/19:48) Acetaminophen Tablet (Tylenol Tablet) (04/08/19 22:00) Ed Iv/Invasive Line Start (04/08/19 21:48) Ed Iv/Invasive Line Start (04/08/19 21:48) Ekg Tracing (04/08/19:48) Troponin I (04/08/19:48) Vital Signs Adult Sepsis Patie Q15M (04/08/19 21:48) Ondansetron Injection (Zofran Injectio (04/08/19 22:00) O2 (04/08/19 21:48) Remove Rings In Anticipation O (04/08/19:48) Lactic Acid Analyzer (04/08/19 21:48) Ns Iv 1000 Ml (Sodium Chloride 0.9%) (04/08/19 21:48) Piperacillin Sodium/Tazobactam (Zosyn Vi (04/08/19 22:00) Vancomycin Injection (Vancomycin Injecti (04/08/19 22:00) Alcohol (04/08/19 21:55) Albuterol/Ipra Inhalation Soln (Duoneb I (04/08/19 22:00) Rt Request For Service (04/08/19:56) Methylprednisolone Sod Succ (Solu-Medrol (04/08/19 21:56) Svn Small Volume Nebulizer (04/08/19 21:56) Arterial Blood Gas (04/08/19 21:56) Medications Given in ED Current Medications Medications Dose Ordered Sig/Leandra Route Start Time Stop Time Status Last Admin Dose Admin Albuterol/ Ipratropium 3 ml STK-MED ONCE .ROUTE 04/08/19 21:45 04/08/19 21:46 DC 04/08/19 21:50 3 ML Vital Signs/I&O 04/08/19 04/08/19 04/08/19 21:46 21:50 23:50 Temp 36.7 37.0 Pulse 105 98 Resp 23 20 B/P (MAP) 90/58 (69) 98/65 Pulse Ox 99 99 96 O2 Delivery Nasal Cannula Nasal Cannula Nasal Cannula O2 Flow Rate 4.00 4.00 4.00 04/09/19 00:00 Intake Total 1000 ml Balance 1000 ml Capillary Refill : Progress Note : Progress Note PT ADAMANTLY IS REFUSING ALL CARE AND TREATMENT REFUSES EKG, REFUSES NEB TREATMENT, REFUSING IV OR LAB OR XRAYS ( DID OBTAIN SOME BLOOD AND IV ACCESS OBTAINED WHEN PT FIRST ARRIVED IN ER ) PT INSISTING ON GOING BACK TO [facility]. 2234--PT IS STILL ADAMANTLY REFUSING ALL CARE AND TREATMENT. PT ADVISED THAT HE IS DYING AND WILL VERY SOON IF HE DOES NOT ALLOW US TO TREAT HIM, AND THAT HE NEEDS EMERGENT CARE, HE IS VERY ANEMIC AND NEEDS BLOOD TRANSFUSION, IS IN SEPTIC SHOCK AND NEEDS IV FLUIDS, ANTIBIOTICS, ETC. AND IS IN NEED OF RESPIRATORY CARE, IN ADDITION TO WOUND CARE. . PT STATES HE KNOWS THAT HE IS DYING, AND HE DOES NOT CARE IF HE DIES. STATES THAT HE "HAS NOTHING TO LIVE FOR" --STATES HIS AND SON HAVE QUIT COMING TO SEE HIM, AND STATES "HE DOES NOT WANT TO LIVE LIKE THIS ANYMORE". PT REPEATEDLY VERBALIZES THAT HE DOES NOT WANT TO BE INTUBATED OR RESUSCITATED. PT REPEATEDLY VERBALIZES THAT HE IS AWARE THAT HE IS DYING AND WILL VERY SOON IF HE DOES NOT AGREE TO ANY TREATMENT. PT STATES THE REASON HE WANTED TO COME TO ER TONIGHT WAS BECAUSE "I THOUGHT MY AND SON WOULD COME SEE ME HERE". HE STATES THAT THEY WERE NOTIFIED OVER AN HOUR AGO THAT HE WAS COMING HERE. PT'S FAMILY HAS NOT COME TO ER OR CALLED ABOUT HIM AT ANY TIME DURING ER STAY. RN HAS DISCUSSED WITH [facility] NURSE, OF ALL OF THE ABOVE, AND ER NURSE HAD PT TALK TO THE [facility] NURSE ON THE PHONE AND VERBALIZE ALL OF THIS TO HER WELL. THEY WILL BE SENDING STAFF TO PICK HIM UP AND BRING HIM BACK TO [facility]. PT GAVE VERBAL SIGNATURE ON AMA FORM. Departure Impression Primary Impression: Left against medical advice Disposition: 07 AGAINST MEDICAL ADVICE Condition: Against Medical Advice Departure-Patient Inst. Referrals: [facility] (PCP/Family) Primary Care Physician ARLIN DOWD DO Apr 09, 2019 00:08
== END 2019-04-08 23:50 | disposition left against medical advice (07) ==
LOC: EDUNIT# 21:42 → ER 21:43
DX: R06.2 Wheezing (principal); R05 Cough; R06.02 Shortness of breath; J44.9 Chronic obstructive pulmonary disease, unspecified; E11.40 Type 2 diabetes mellitus with diabetic neuropathy, unspecified; G83.9 Paralytic syndrome, unspecified; K21.9 Gastro-esophageal reflux disease without esophagitis; F41.9 Anxiety disorder, unspecified; Z87.820 Personal history of traumatic brain injury; Z87.440 Personal history of urinary (tract) infections; Z87.828 Personal history of other (healed) physical injury and trauma; Z79.4 Long term (current) use of insulin; Z87.891 Personal history of nicotine dependence; Z93.0 Tracheostomy status; Z82.49 Family history of ischemic heart disease and other diseases of the circulatory system; Z80.43 Family history of malignant neoplasm of testis
CPT/HCPCS: 36415; 80053; 80320; 83605; 84484; 85025; 85610; 85730; 87040; 94640

== ENCOUNTER 2019-04-10 14:02 | Emergency (ER) | payer MEDICAID ==
[~2019-04-10] VITALS: Ht 160 cm; Wt 56.0 kg
[2019-04-10] MEDS ORDERED: NS IV 1000 ML 1,000 ML IV SCH ×2 (14:30→16:30)
[2019-04-10] MEDS ORDERED: HYDROcodone/APAP 5 MG/325 MG (LORTAB) TAB PO ONE (15:15)
[2019-04-10 15:55] LABS: BASOPHILS % (AUTO) 0 % (0-10); EOSINOPHILS % (AUTO) 0 % (0-10); HEMATOCRIT 27 % (40-54); HEMOGLOBIN 8.8 G/DL (13.3-17.7); LYMPHOCYTES # (AUTO) 1.7 X 10^3 (1.0-4.0); LYMPHOCYTES % (AUTO) 8 % (12-44); MEAN CORPUSCULAR HEMOGLOBIN 28 PG (25-34); MEAN CORPUSCULAR HGB CONC 33 G/DL (32-36); MEAN CORPUSCULAR VOLUME 84 FL (80-99); MEAN PLATELET VOLUME 7.5 FL (7.4-10.4); MONOCYTES # (AUTO) 2.3 X 10^3 (0.0-1.0); MONOCYTES % (AUTO) 10 % (0-12); NEUTROPHILS # (AUTO) 18.9 X 10^3 (1.8-7.8); NEUTROPHILS % (AUTO) 82 % (42-75); PLATELET COUNT 376 10^3/uL (130-400); RED CELL DISTRIBUTION WIDTH 16.6 % (10.0-14.5)
[2019-04-10 16:08] LABS: BILIRUBIN,URINE NEGATIVE (NEGATIVE); CLARITY,URINE SLIGHTLY CLOUDY; COLOR,URINE YELLOW; GLUCOSE, URINE (UA) NEGATIVE (NEGATIVE); KETONES,URINE NEGATIVE (NEGATIVE); LEUKOCYTE ESTERASE ,URINE 3+ (NEGATIVE); NITRITE,URINE POSITIVE (NEGATIVE); PH,URINE 6 (5-9); PROTEIN,URINE 1+ (NEGATIVE)
--- NOTE | 2019-04-10 16:10 | Diagnostic Imaging Report ---
PATIENT HISTORY: Central line placement. Cough. TECHNIQUE: Single frontal view of the chest. COMPARISON: 03/31/2019. FINDINGS: Lung volumes are normal. The right central line tip projects over the low SVC. Multiple malleable plates transfix the right ribs. No pleural effusion or pneumothorax is seen. No focal consolidation is seen. The cardiac silhouette is normal in size. IMPRESSION: 1. No acute pulmonary abnormality. 2. The tip of the right central line projects over the low SVC. Dictated by: Dictated on workstation # [id number]
--- NOTE | 2019-04-10 16:14 | ED General ---
General Chief Complaint: General Problems/Pain Stated Complaint: ABNORMAL LABS Nursing Triage Note: TO ROOM 08 VIA WC. WAS HERE ON SAT ET REFUSED ADMISSION DESPITE A LOW HMG. Nursing Sepsis Screen: No Definite Risk Source of Information: Patient Exam Limitations: No Limitations History of Present Illness Date Seen by Provider: Apr 10, 2019 Time Seen by Provider: 16:12 Initial Comments To ER per private vehicle from [facility] with reports of low hemoglobin. He has a chronic wound on his tailbone. He is a fairly recent partial quadriplegic with slight use of his hands following a fall from roof and subsequent cervical spine injury, several broken ribs.. Timing/Duration: 1 Week Severity: Moderate Associated Systoms: Denies Symptoms Allergies and Home Medications Allergies Coded Allergies: No Known Drug Allergies (Unverified , 02/15/19) Home Medications Alprazolam 0.25 Mg Tablet, 0.25 MG PO QID, (Reported) Baclofen 10 Mg Tablet, 5 MG PO TID, (Reported) Budesonide 1 Mg/2 Ml Ampul.neb, 1 MG IH BID Prescribed by: ARLIN DOWD on 03/31/19 2342 Citalopram Hydrobromide 20 Mg Tablet, 20 MG PO DAILY Prescribed by: PRANAY WADE on 03/20/19 1227 Enoxaparin Sodium 40 Mg/0.4 Ml Syringe, 40 MG SC 1400, (Reported) FILLED #12 02-07-19 AND THEN THE REST ON 02-20-19 FOR #18 SYRINGES Famotidine 20 Mg Tablet, 20 MG PO BID, (Reported) Hydrocodone/Acetaminophen 1 Each Tablet, 1 TAB PO Q6H PRN for PAIN-MODERATE, (Reported) Insulin Detemir 100 Unit/1 Ml Insuln.pen, 15 UNIT SQ DAILY, (Reported) LAST FILLED 02-06-19 Insulin Detemir 100 Unit/1 Ml Insuln.pen, 20 UNIT SQ HS, (Reported) LAST FILLED 02-06-19 Ipratropium/Albuterol Sulfate 3 Ml Ampul.neb, 3 ML NEB BID PRN for SHORTNESS OF BREATH, (Reported) Levofloxacin 500 Mg Tablet, 500 MG PO DAILY Prescribed by: ARLIN DOWD on 03/31/19 2341 Loratadine 10 Mg Tablet, 10 MG PO DAILY, (Reported) LAST FILLED #30 02-06-19 Melatonin 5 Mg Tablet, 10 MG PO HS, (Reported) Methylprednisolone 4 Mg Tab.ds.pk, 4 MG PO UD Prescribed by: ARLIN DOWD on 03/31/192341 Miconazole Nitrate 90 Gm Powder, TP BID, (Reported) LAST FILLED 01-29-19 Midodrine HCl 10 Mg Tablet, 10 MG PO TID, (Reported) LAST FILLED #90 02-06-19 Montelukast Sodium 10 Mg Tablet, 10 MG PO DAILY, (Reported) LAST FILLED #30 02-06-19 Quetiapine Fumarate 50 Mg Tablet, 50 MG PO HS, (Reported) Sennosides 8.6 Mg Tablet, 8.6 MG PO BID PRN for CONSTIPATION-5TH LINE, (Reported) Sodium Hypochlorite 473 Ml Solution, 0 ML TOP DAILY Prescribed by: MARGUERITE GAN on 02/05/192036 Patient Home Medication List Home Medication List Reviewed: Yes Review of Systems Review of Systems Constitutional: see HPI EENTM: see HPI Respiratory: no symptoms reported Cardiovascular: no symptoms reported Genitourinary: no symptoms reported Musculoskeletal: no symptoms reported Skin: no symptoms reported Psychiatric/Neurological: No Symptoms Reported Hematologic/Lymphatic: No Symptoms Reported Immunological/Allergic: no symptoms reported Past Jenpoqu-Vvgzqz-Zindeb Hx Patient Social History Alcohol Use: Past History Number of Drinks Today: Alcohol Beverage of Choice: Wine Recreational Drug Use: No (10 YEARS AGO) Drug of Choice: THC, + IV METHAMPHETAMINES, PCP, OPIATES, [facility] Smoking Status: Current Everyday Smoker Type Used: Cigarettes 2nd Hand Smoke Exposure: Yes Recent Foreign Travel: No Contact w/Someone Who Travel: No Recent Infectious Disease Expo: No Recent Hopitalizations: Yes (SPINAL CORD INJURY AND AT [facility] 7-19 RECENT HOSPITALIZATION FOR SEPSIS) Immunizations Up To Date Tetanus Booster (TDap): Unknown PED Vaccines UTD: Yes Date of Pneumonia Vaccine: Sep 04, 2015 Date of Influenza Vaccine: Apr 05, 2017 Seasonal Allergies Seasonal Allergies: Yes (TALL GRASS, ANIMALS) Past Medical History Surgeries: Yes Abdominal, Bladder Surgery, Orthopedic, Tracheostomy Respiratory: Yes Pneumonia, COPD Currently Using CPAP: No Currently Using BIPAP: No Cardiac: No Neurological: Yes Neuropathy, Paralysis, Spinal Cord Injury, Traumatic Brain Injury Reproductive Disorders: No Sexually Transmitted Disease: No Genitourinary: Yes (indwelling goodman catheter) Bladder Infection, UTI-Chronic Gastrointestinal: Yes Gastroesophageal Reflux Musculoskeletal: Yes Chronic Back Pain, Fractures Endocrine: Yes (NON-COMPLIANCE) Diabetes, Insulin dep HEENT: Yes Cataract Cancer: No Psychosocial: Yes (POLYSUBSTANCE ABUSE) Sleep Difficulties, Anxiety Integumentary: Yes (SACRAL DECUBITUS ULCER) Blood Disorders: No Adverse Reaction/Blood Tranf: No Family Medical History Abdominal aortic aneurysm 03 MOTHER (DOESN'T KNOW MOM'S MEDICAL HISTORY) Cancer 03 FATHER (TESTICULAR) Family history: Diabetes mellitus 03 FATHER Family history: Hypertension 03 FATHER No Family History of: Family history: Alzheimer's disease Family history: Arthritis Family history: Breast disease Family history: Cardiovascular disease Family history: Gastrointestinal disease Family history: Thyroid disorder Hereditary disease History of - respiratory disease Myocardial infarction Parkinson's disease Seizure disorder Stroke AAA, Cancer, CAD Over 55 Years Old, Diabetes, Hypertension Physical Exam Vital Signs Vital Signs - First Documented 04/10/19 14:10 Temp 36.4 Pulse 88 Resp 16 B/P (MAP) 87/57 (67) Pulse Ox 97 O2 Delivery Room Air Capillary Refill : Less Than 3 Seconds Height, Weight, BMI Height: 5'3.00" Weight: 150lbs. 0.3oz. [id number]; 21.00 BMI Method:Stated General Appearance: No Apparent Distress, WD/WN Eyes: Bilateral Eye Normal Inspection, Bilateral Eye PERRL, Bilateral Eye EOMI HEENT: PERRL/EOMI, TMs Normal Neck: Full Range of Motion, Normal Inspection Respiratory: No Accessory Muscle Use, No Respiratory Distress Cardiovascular: Regular Rate, Rhythm, Normal Peripheral Pulses Gastrointestinal: Non Tender, Soft Extremity: Normal Capillary Refill, Normal Inspection Neurologic/Psychiatric: Alert, Oriented x3 Skin: Normal Color, Warm/Dry (chronically on Zosyn for the rest of his life) Comments Very large stage IV decubitus ulcer to the sacrum Focused Exam Lactate Level 04/10/19 15:45: Lactic Acid Level 1.33 Lactic Acid Level Laboratory Tests Test 04/10/19 15:45 Lactic Acid Level 1.33 MMOL/L (0.50-2.00) Procedures/Interventions Date of ETT Placement: Dec 07, 2018 Progress/Results/Core Measures Suspected Sepsis Recent Fever Within 48 Hours: No Infection Criteria Present: None New/Unexplained Altered Menta: No Sepsis Screen: No Definite Risk SIRS Temperature: Pulse: 88 Respiratory Rate: 16 Laboratory Tests 04/10/19 15:45: White Blood Count 23.0H Blood Pressure 87 /57 Mean: 67 04/10/19 15:45: Lactic Acid Level 1.33 Laboratory Tests 04/10/19 15:45: Creatinine 0.65, INR Comment 1.1, Platelet Count 376, Total Bilirubin 0.2 Results/Orders Lab Results Laboratory Tests Test 04/10/19 15:45 04/10/19 16:00 Range/Units White Blood Count 23.0 H 4.3-11.0 10^3/uL Red Blood Count 3.19 L 4.35-5.85 10^6/uL Hemoglobin 8.8 #L 13.3-17.7 G/DL Hematocrit 27 L 40-54 % Mean Corpuscular Volume 84 80-99 FL Mean Corpuscular Hemoglobin 28 25-34 PG Mean Corpuscular Hemoglobin Concent 33 32-36 G/DL Red Cell Distribution Width 16.6 H 10.0-14.5 % Platelet Count 376 130-400 10^3/uL Mean Platelet Volume 7.5 7.4-10.4 FL Neutrophils (%) (Auto) 82 H 42-75 % Lymphocytes (%) (Auto) 8 L 12-44 % Monocytes (%) (Auto) 10 0-12 % Eosinophils (%) (Auto) 0 0-10 % Basophils (%) (Auto) 0 0-10 % Neutrophils # (Auto) 18.9 H 1.8-7.8 X 10^3 Lymphocytes # (Auto) 1.7 1.0-4.0 X 10^3 Monocytes # (Auto) 2.3 H 0.0-1.0 X 10^3 Eosinophils # (Auto) 0.0 0.0-0.3 10^3/uL Basophils # (Auto) 0.0 0.0-0.1 10^3/uL Neutrophils % (Manual) 79 % Lymphocytes % (Manual) 9 % Monocytes % (Manual) 10 % Band Neutrophils 2 % Hypochromasia SLIGHT Anisocytosis SLIGHT Prothrombin Time 14.4 12.2-14.7 SEC INR Comment 1.1 0.8-1.4 Sodium Level 133 L 135-145 MMOL/L Potassium Level 4.1 3.6-5.0 MMOL/L Chloride Level 101 98-107 MMOL/L Carbon Dioxide Level 21 21-32 MMOL/L Anion Gap 11 5-14 MMOL/L Blood Urea Nitrogen 20 H 7-18 MG/DL Creatinine 0.65 0.60-1.30 MG/DL Estimat Glomerular Filtration Rate > 60 BUN/Creatinine Ratio 31 Glucose Level 176 H 70-105 MG/DL Lactic Acid Level 1.33 0.50-2.00 MMOL/L Calcium Level 8.8 8.5-10.1 MG/DL Corrected Calcium 9.6 8.5-10.1 MG/DL Total Bilirubin 0.2 0.1-1.0 MG/DL Aspartate Amino Transf (AST/SGOT) 13 5-34 U/L Alanine Aminotransferase (ALT/SGPT) 24 0-55 U/L Alkaline Phosphatase 107 40-136 U/L Total Protein 6.8 6.4-8.2 GM/DL Albumin 3.0 L 3.2-4.5 GM/DL Urine Color YELLOW Urine Clarity SLIGHTLY CLOUDY Urine pH 6 5-9 Urine Specific [place] 1.010 L 1.016-1.022 Urine Protein 1+ H NEGATIVE Urine Glucose (UA) NEGATIVE NEGATIVE Urine Ketones NEGATIVE NEGATIVE Urine Nitrite POSITIVE H NEGATIVE Urine Bilirubin NEGATIVE NEGATIVE Urine Urobilinogen NORMAL NORMAL MG/DL Urine Leukocyte Esterase 3+ H NEGATIVE Urine RBC (Auto) 4+ H NEGATIVE Urine RBC 2-5 H /HPF Urine WBC 25-50 H /HPF Urine Crystals NONE /LPF Urine Bacteria MODERATE H /HPF Urine Casts NONE /LPF Urine Mucus NEGATIVE /LPF Urine Yeast LARGE H /HPF Urine Culture Indicated YES My Orders Orders - RAEANN MOMIN APRN Cbc With Automated Diff (04/10/19 14:21) Comprehensive Metabolic Panel (04/10/19 14:21) Ua Culture If Indicated (04/10/19 14:21) Protime With Inr (04/10/19 14:21) Blood Culture (04/10/19 14:21) Lactic Acid Analyzer (04/10/19 14:21) Red Cells Leukocytes Reduced (04/10/19 14:21) Ns Iv 1000 Ml (Sodium Chloride 0.9%) (04/10/19 14:30) Type And Screen (04/10/19 14:21) Chest 1 View, Ap/Pa Only (04/10/19 15:11) Hydrocodone/Apap 5/325 Tablet (Lortab 5 (04/10/19 15:15) Manual Differential (04/10/19 15:45) Piperacillin Sodium/Tazobactam (Zosyn Vi (04/10/19 16:15) Ns Iv 1000 Ml (Sodium Chloride 0.9%) (04/10/19 16:30) Urine Culture (04/10/19 16:00) Medications Given in ED Current Medications Medications Dose Ordered Sig/Leandra Route Start Time Stop Time Status Last Admin Dose Admin Acetaminophen/ Hydrocodone Bitart 1 tab ONCE ONCE PO 04/10/19 15:15 04/10/19 15:16 DC 04/10/19 15:51 1 TAB Piperacillin Sod/ Tazobactam Sod 4.5 gm/Sodium Chloride 100 ml @ 200 mls/hr ONCE ONCE IV 04/10/19 16:15 04/10/19 16:44 DC 04/10/19 16:57 200 MLS/HR Vital Signs/I&O 04/10/19 14:10 Temp 36.4 Pulse 88 Resp 16 B/P (MAP) 87/57 (67) Pulse Ox 97 O2 Delivery Room Air Capillary Refill : Less Than 3 Seconds Blood Pressure Mean: 67 Departure Communication (Admissions) Discussed With Dr. Gan, his lactic acid is normal he is not tachycardic, he is not febrile, he has leukocytosis which could be attributed to the urinary tract infection in the wound on his sacrum. He does have low blood pressure normally as a function of the spinal cord injury. At this time without any pressor use his blood pressure is [address] Gan, he can be [facility] back to the [facility] for oral [facility] there. He does not need a blood transfusion his hemoglobin here is 8.8. I did offer admission to the patient, he states he would prefer to go back to the [facility] to receive oral antibiotics there since he doesn't need a blood transfusion. Impression Primary Impression: Spinal cord injury at C1-C4 level Qualified Codes: S14.101A - Unspecified injury at C1 level of cervical spinal cord, initial encounter Additional Impression: Urinary tract infection Qualified Codes: N30.00 - Acute cystitis without hematuria Disposition: XFER SNF Condition: Stable Departure-Patient Inst. Referrals: [facility] (PCP/Family) Primary Care Physician RAEANN MOMIN APRN Apr 10, 2019 16:14
[2019-04-10] MEDS ORDERED: PIPERACILLIN SODIUM/TAZOBACTAM 4.5 GM in NS (IVPB) 100 ML IV ONE (16:15)
[2019-04-10 16:17] LABS: INR 1.1 (0.8-1.4); PROTHROMBIN TIME PATIENT 14.4 SEC (12.2-14.7)
[2019-04-10 16:20] LABS: ALANINE AMINOTRANSFERASE 24 U/L (0-55); ALKALINE PHOSPHATASE 107 U/L (40-136); BILIRUBIN,TOTAL 0.2 MG/DL (0.1-1.0); BUN/CREATININE RATIO 31; CALCIUM 8.8 MG/DL (8.5-10.1); CARBON DIOXIDE 21 MMOL/L (21-32); CHLORIDE 101 MMOL/L (98-107); CREATININE SERUM 0.65 MG/DL (0.60-1.30); GFR ESTIMATED > 60; GLUCOSE 176 MG/DL (70-105); POTASSIUM 4.1 MMOL/L (3.6-5.0); SODIUM 133 MMOL/L (135-145); TOTAL PROTEIN 6.8 GM/DL (6.4-8.2)
[2019-04-10 16:56] LABS: ANISOCYTOSIS SLIGHT; BAND NEUTROPHILS 2 %; HYPOCHROMASIA SLIGHT; LYMPHOCYTES % (MANUAL) 9 %; MONOCYTES % (MANUAL) 10 %; NEUTROPHILS % (MANUAL) 79 %
[2019-04-10 17:03] LABS: BACTERIA,URINE MODERATE /HPF; WBC,URINE 25-50 /HPF
[2019-04-10 17:04] LABS: YEAST,URINE LARGE /HPF
[2019-04-10] MEDS ORDERED: CEFD300C3 PO (17:19)
--- NOTE | 2019-04-10 17:20 | NUR ---
Pt now reports pt is tired of waiting and wants to go home. Vish notified.
--- NOTE | 2019-04-10 17:22 | NUR ---
[facility] called [facility] for pt[facility] transport [facility] to [facility].
--- NOTE | 2019-04-10 17:29 | NUR ---
Pt's central line removed by this nurse with assistance from Vish Keller at this time.
[2019-04-10 18:15] VITALS: BP 114/97
== END 2019-04-10 18:15 | disposition home or self-care (01) ==
LOC: EDUNIT# 14:02 → ER 14:02
DX: S14.101A Unspecified injury at C1 level of cervical spinal cord, initial encounter (principal); S14.102A Unspecified injury at C2 level of cervical spinal cord, initial encounter; S14.103A Unspecified injury at C3 level of cervical spinal cord, initial encounter; S14.104A Unspecified injury at C4 level of cervical spinal cord, initial encounter; N39.0 Urinary tract infection, site not specified; E11.40 Type 2 diabetes mellitus with diabetic neuropathy, unspecified; J44.9 Chronic obstructive pulmonary disease, unspecified; G83.9 Paralytic syndrome, unspecified; K21.9 Gastro-esophageal reflux disease without esophagitis; F41.9 Anxiety disorder, unspecified; F17.210 Nicotine dependence, cigarettes, uncomplicated; Z87.440 Personal history of urinary (tract) infections; Z87.820 Personal history of traumatic brain injury; Z79.4 Long term (current) use of insulin; Z93.0 Tracheostomy status; Z82.49 Family history of ischemic heart disease and other diseases of the circulatory system; W13.2XXA Fall from, out of or through roof, initial encounter
CPT/HCPCS: 36415; 71045; 80053; 81000; 83605; 85007; 85027; 85610; 86920; 87040; 87077; 87088; 87186